=== PATIENT | male | born 1960 | race Caucasian/White ===

== ENCOUNTER 2022-01-21 23:19 | Inpatient (IN) | payer OTHER ==
[2022-01-21] MEDS ORDERED: NA CHLORIDE 0.9% 1,000 ML ONE (23:22)
[2022-01-21] MEDS ORDERED: propofoL 1,000 MG/100 ML VIAL IV ONE (23:22)
[2022-01-21] MEDS ORDERED: RSI MEDICATION KIT IV ONE (23:22)
[2022-01-21] MEDS ORDERED: NALOXONE HCL 2 MG/2 ML VIAL ONE (23:25)
[2022-01-21] MEDS ORDERED: propofoL 200 MG/20 ML VIAL IV ONE (23:31)
[2022-01-22 00:01] LABS: Absolute Lymphocytes (CBC) 1.4 K/uL (0.7-4.9); Hematocrit 47.1 % (39.6-49.0); Lymphocytes % 11.6 % (15.3-44.8); MCV 92.7 fL (80-100); MPV 8.8 fL (7.6-11.3); RBC Red Blood Cell Count 5.08 M/uL (4.33-5.43)
[2022-01-22 00:02] LABS: Urine Blood 1+ (Negative); Urine Glucose 2+ (Negative); Urine Protein 3+ (Negative); Urine Specific Gravity 1.025 (1.005-1.030)
[2022-01-22 00:04] LABS: Protime INR 0.9
[2022-01-22 00:36] LABS: Urine Bilirubin Negative (Negative); Urine Blood 1+ (Negative); Urine Clarity Clear (Clear); Urine Color Yellow (Yellow); Urine Glucose 2+ (Negative); Urine Protein 3+ (Negative); Urine Urobilinogen 0.2 mg/dL (0.2-1.0)
[2022-01-22 00:38] LABS: Arterial Blood Carboxyhemoglob 1.7 % (0-1.5); Blood Gas Oxyhemoglobin 94.2 % (94-97); Blood O2 Saturation 97.5 % (92-98.5)
[2022-01-22 00:39] LABS: Albumin 3.2 g/dL (3.4-5.0); Bilirubin Total 0.3 mg/dL (0.2-1.0); Protein, Total 7.5 g/dL (6.4-8.2)
[2022-01-22 00:42] LABS: Potassium 2.6 mmol/L (3.5-5.1)
--- NOTE | 2022-01-22 00:56 | ER ---
Nurse's Notes [facility] Name: Thom Wright Age: 61 yrs Sex: Male : 1960 Arrival Date: 01/21/2022 Time: 23:20 Bed 3 Private MD: Diagnosis: DKA, Altered mental status, dehydration Presentation: 01/21 23:16 Acuity: SONIA 1 lp1 23:16 Chief complaint: EMS states: Called for patient with diabetic issue, on arrival patient lp1 with AMS, seizure witnessed by EMS, unresponsive and given Narcan 3mg IV; Patient became combative, given Versed 5mg IV; patient it OPA and NPA on arrival to ED, unresponsive. 23:16 Coronavirus screen: unable to obtain. Ebola Screen: Unable to complete the Ebola lp1 screening because: Patient is unresponsive. Initial Sepsis Screen: Does the patient meet any 2 criteria? No. Patient's initial sepsis screen is negative. Does the patient have a suspected source of infection? No. Patient's initial sepsis screen is negative. Risk Assessment: Do you want to hurt yourself or someone else? Unable to obtain. Onset of symptoms was January 21, 2022. 23:16 Method Of Arrival: EMS: [facility] lp1 23:43 Care prior to arrival: IV initiated. 20 GA, in the left antecubital area, Glucose lp1 check: 526. Historical: - Allergies: 01/22 01:12 Unable to obtain; as6 - Home Meds: 01:12 Unable to obtain [Active]; as6 - PMHx: 01:12 Unable to Obtain; as6 - PSHx: 01:12 Unable to Obtain; as6 - Immunization history:: Adult Immunizations unknown. - Social history:: Smoking status: unknown EMS reported pt is IV drug user . Screenin:59 Abuse screen: Denies threats or abuse. Denies injuries from another. Nutritional as6 screening: No deficits noted. Tuberculosis screening: No symptoms or risk factors identified. Fall Risk None identified. Assessment: 01/21 23:20 General: Appears ill, Behavior is unresponsive. as6 23:20 Pain: Unable to use pain scale. Patient is unresponsive. as6 23:20 Neuro: Level of Consciousness is unresponsive. Respiratory: Airway via nasal trumpet. as6 23:31 Reassessment: Patient placed on ventilator; Rate of 14, PEEP 5, TV 500, O2 100%. lp1 Vital Signs: 23:16 BP 204 / 104; Pulse 120; Resp 30 A; Pulse Ox 99% on 15% BVM; Weight 113.4 kg; lp1 23:25 BP 224 / 129; Pulse 116; Resp 19 A; Pulse Ox 99% on 15% BVM; lp1 23:30 BP 261 / 120; Pulse 105; Resp 20 A; Pulse Ox 97% on 15% BVM; lp1 23:41 BP 180 / 82; Pulse 106; Resp 19; Temp 96.3(C); Pulse Ox 99% on 100% FiO2 ETT vent; lp1 01/22 00:00 BP 204 / 112; Pulse 88; Resp 15; Temp 97.3(C); Pulse Ox 100% on 50% FiO2 ETT vent; lp1 00:30 BP 209 / 96; Pulse 82; Resp 13 A; Temp 97.4(C); Pulse Ox 97% on 50% FiO2 ETT vent; as6 01:00 BP 214 / 85; Pulse 80; Resp 15 A; Temp 97.5(C); Pulse Ox 97% on 50% FiO2 ETT vent; as6 01:30 BP 194 / 105; Pulse 72; Resp 14 A; Temp 97.3(C); Pulse Ox 99% on 50% FiO2 ETT vent; as6 02:00 BP 113 / 77; Pulse 70; Resp 14 A; Temp 97.5(C); Pulse Ox 100% on 50% FiO2 ETT vent; as6 02:01 Height 6 ft. (182.88 cm); as6 02:30 BP 171 / 92; Pulse 71; Resp 15 A; Temp 97.5(C); Pulse Ox 98% on 50% FiO2 ETT vent; as6 03:00 BP 146 / 120; Pulse 70; Resp 16 A; Temp 97.2(C); Pulse Ox 100% on 50% FiO2 ETT vent; as6 02:01 Body Mass Index 33.91 (113.40 kg, 182.88 cm) as6 [place] Coma Score: 01/21 23:20 Eye Response: none(1). Verbal Response: none(1). Motor Response: none(1). Total: 3. as6 ED Course: 23:20 Patient arrived in ED. ds4 23:20 Maintain EMS IV. Dressing intact. Good blood return noted. Site clean \\T\\ dry. Gauge \\T\\ lp 1 site: 20g to L AC. 23:24 Inserted saline lock: 20 gauge in right antecubital area, using aseptic technique. lp1 Blood collected. 23:29 Assisted provider with intubation using 7.5 mm ETT via oral route. ET tube secured at lp1 24cm at the lips. Set up intubation tray. Intubated by Luis M English MD Placement verified by CO2 detector w/ + color change, auscultating bilateral breath sounds, CXR. 23:33 Gunderson cath inserted, using sterile technique, 16 Fr., by ED staff, balloon inflated, to lp1 gravity drainage. 23:34 NGT: inserted 14 Fr. other ORAL. lp1 23:36 Arm band placed on left wrist. lp1 23:37 Triage completed. lp1 23:42 Assisted provider with central line placement. Set up central line tray. Triple lumen lp1 line placed in right subclavian. Line placed by Luis M English MD Placement verified by blood return, Dressed with Tegaderm, Blood was collected. Time-out/Briefing performed prior to start of procedure? Yes. Was handwashing/sanitizing done immediately prior to procedure? Yes. Was patient positioned to in a way to prevent air embolism? Yes. Was procedure site sterilized? Yes, with Was the site allowed to dry? Yes. During the procedure, did the Practitioner(s) maintain a sterile field? Yes. Were unused ports clamped during insertion? Yes. Was blood aspirated from each lumen? Yes. After the procedure, did the Practitioner(s) clean the site and apply a sterile dressing? Yes. 23:52 Luis M English MD is Attending Physician. sp3 23:53 Paul Asher, SALLIE is Primary Nurse. as6 01/22 00:16 Chest Single View XRAY In Process Unspecified. EDMS 00:30 CT Head Brain wo Cont In Process Unspecified. EDMS 00:36 COVID-19 SARS RT PCR (Document "Date of Onset" if Symptomatic) Sent. mh5 00:36 COVID swab sent to lab. mh5 00:54 Byron Mace MD is Hospitalizing Provider. sp3 01:59 Seizure precautions initiated. as6 03:02 Patient admitted, IV remains in place. as6 Administered Medications: 01/20 23:36 Drug: Propofol 50 mg {Note: RASS +2.} Route: IVP; Site: left antecubital; 1 01/22 03:31 Follow up: Response: No adverse reaction; RASS: Light sedation (-2) as6 01/20 23:39 Drug: Propofol 50 mg {Note: RASS +2.} Route: IVP; Site: left antecubital; [facility] 01/22 03:31 Follow up: Response: No adverse reaction; RASS: Light sedation (-2) as6 01/20 23:42 Drug: Propofol 50 mg {Note: RASS +2.} Route: IVP; Site: left antecubital; [facility] 01/22 03:31 Follow up: Response: No adverse reaction; RASS: Light sedation (-2) as6 01/21 23:19 Drug: NARcan (naloxone) 4 mg Route: IVP; Site: left antecubital; [facility] 01/22 03:29 Follow up: Response: No adverse reaction as6 01/21 23:23 Drug: Etomidate 20 mg Route: IVP; Site: left antecubital; [facility] 01/22 03:30 Follow up: Response: No adverse reaction as6 01/21 23:24 Drug: Succinylcholine 120 mg Route: IVP; Site: left antecubital; [facility] 01/22 03:29 Follow up: Response: No adverse reaction as6 01/21 23:30 Drug: Propofol 50 mg {Note: RASS +1.} Route: IVP; Site: left antecubital; [facility] 01/22 03:30 Follow up: Response: No adverse reaction; RASS: Restless (+1) as6 01/21 23:31 Drug: Propofol 5 mcg/kg/min {Note: RASS +1.} Route: IV; Rate: calculated rate; Site: lp left antecubital; 23:31 Follow up: Rate change 10 mcg/min; Verbal order per Provider at bedside; RASS +1 lp1 23:37 Follow up: Rate change 20 mcg/min; RASS +2 1 23:41 Follow up: Rate change 25 mcg/min; RASS +2 [facility] 01/22 00:41 Follow up: Response: RASS: Restless (+1); Rate change 35 mcg/min as6 03:30 Follow up: Response: RASS: Light sedation (-2); IV Status: Infusion continued upon as6 admission 00:52 Not Given (Duplicate Order): Propofol 50 mg IVP once; Document RASS score. as6 00:52 Not Given (Duplicate Order): Propofol 50 mg IVP once; Document RASS score. as6 00:52 Not Given (Duplicate Order): Propofol 50 mg IVP once; Document RASS score. as6 00:52 Not Given (Duplicate Order): Propofol 5 mcg/kg/min IV at calculated rate See as6 Administration Instructions; Standard concentration 1000 mg / 100 mL; Recommended max rate 50 mcg/kg/min; Titrate 2 mcg/kg/min every 5 minutes to achieve goal (see titration policy); Goal parameter RASS score 0 to -2 01:11 Drug: Potassium Chloride 40 mEq Route: IV; Rate: 2 units/min; Site: right subclavian; as6 03:33 Follow up: Response: No adverse reaction; IV Status: Completed infusion; IV Intake: as6 200ml 01:30 Drug: Insulin Drip - (Insulin Regular Human 100 units, NS 0.9% 100 ml) {Co-Signature: aa9 as6 (Paul Asher RN).} Route: IV; Rate: calculated rate; Site: right subclavian; 03:32 Follow up: IV Status: Infusion continued upon admission as6 01:43 Drug: Dilaudid (HYDROmorphone) 1 mg Route: IVP; Site: left antecubital; aa9 03:32 Follow up: Response: No adverse reaction as6 01:55 Drug: NS 0.9% with KCl 40 mEq/L 1000 ml Route: IV; Rate: 125 ml/hr; Site: right as6 subclavian; 03:32 Follow up: IV Status: Infusion continued upon admission as6 01:55 Drug: Rocephin (cefTRIAXone) 1 grams Route: IV; Rate: calculated rate; Site: right as6 subclavian; 03:32 Follow up: Response: No adverse reaction; IV Status: Infusion continued; IV Intake: [id number] 02:08 Drug: NS 0.9% (30 ml/kg) 30 ml/kg Route: IV; Rate: bolus; Site: right subclavian; as6 03:32 Follow up: IV Status: Infusion continued upon admission as6 Medication: 01:59 VIS not applicable for this client. as6 Point of Care Testing: Blood Glucose: 01/21 23:28 Blood Glucose: High (>450 mg/dL); aa9 Ranges: Intake: 01/22 03:32 IV: 10ml; Total: 10ml. as6 03:33 IV: 200ml; Total: 210ml. as6 Output: 01/21 23:56 Urine: 300ml (Gunderson); Total: 300ml. as6 Outcome: 01/22 00:55 Decision to Hospitalize by Provider. sp3 03:01 Admitted to ICU accompanied by nurse, via stretcher, room 5, with oxygen, on monitor, as6 with chart. 03:01 critical 03:01 Instructed on the need for admit. 03:33 Patient left the ED. as6 Signatures: Dispatcher [employer] EDMS Jodee Porter RN RN lp1 Nick Leong Amie Colunga Luis M Fraser MD MD sp3 Paul Asher RN RN as6 Leidy Birmingham RN RN aa9 Paul Asher RN as6 Corrections: (The following items were deleted from the chart) 01/21 23:44 23:16 Chief complaint: EMS states: Called for patient with diabetic issue, on arrival lp1 patient with AMS, seizure witnessed by EMS, unresponsive and given Narcan 3mg IV; 2nd seizure, given Versed 5mg IV; patient it OPA and NPA on arrival to ED, unresponsive lp1 01/22 00:14 00:00 BP 204 / 112; Pulse 88bpm; Resp 15bpm; Pulse Ox 100% FiO2 100% vent; Temp 97.3F lp1 Catheter; lp1 01:59 00:30 BP 209 / 96; Pulse 82bpm; Resp 13bpm; Assisted; Pulse Ox 97% FiO2 50% vent; as6 as6 01:59 01:00 BP 214 / 85; Pulse 80bpm; Resp 15bpm; Assisted; Pulse Ox 97% FiO2 50% vent; as6 as6 02:02 01/21 23:20 General: Appears ill, Behavior is unresponsive. as6 as6
--- NOTE | 2022-01-22 00:56 | EDPHYS ---
Physician Documentation [facility] Name: Thom Wright Age: 61 yrs Sex: Male : 1960 Arrival Date: 01/21/2022 Time: 23:20 Bed 3 Private MD: ED Physician Luis M English HPI: 01/22 00:10 This 61 yrs old Male presents to ER via EMS with complaints of Seizure \\T\\ altered mental sp3 status. 00:10 61-year-old male with unknown medical history but medications indicating hypertension sp3 and diabetes presents via EMS for reported seizure activity and altered mental status. In route and EMS patient had 2 tonic-clonic body wide seizures and received Narcan and Versed in route. Blood sugar was read as high in route as well. Upon arrival to the ER, patient was being ventilated with a bag valve mask and patient had no gag reflex was completely altered. She was placed in room 3 and emergency resuscitation, intubation, and central line were initiated.. Historical: - Allergies: 01:12 Unable to obtain; as6 - Home Meds: 01:12 Unable to obtain [Active]; as6 - PMHx: 01:12 Unable to Obtain; as6 - PSHx: 01:12 Unable to Obtain; as6 - Immunization history:: Adult Immunizations unknown. - Social history:: Smoking status: unknown EMS reported pt is IV drug user . ROS: 00:14 Unable to obtain ROS due to altered mental status, obtunded state, patient distress. sp3 Exam: 00:15 Head/Face: Normocephalic, atraumatic. sp3 00:15 Neck: Trachea midline, no thyromegaly or masses palpated, and no cervical lymphadenopathy. Supple, full range of motion without nuchal rigidity, or vertebral point tenderness. No Meningismus. Respiratory: Lungs have equal breath sounds bilaterally, clear to auscultation and percussion. No rales, rhonchi or wheezes noted. No increased work of breathing, no retractions or nasal flaring. 00:15 Constitutional: The patient appears comatose, obese. 00:15 Eyes: Pupils mildly reactive to light. 00:15 Cardiovascular: And in a regular rhythm with tachycardia in the 110 range. Blood pressure is 210/140 range.. 00:15 ECG was reviewed by the Attending Physician. States 88 bpm with Q waves in lead III, nonspecific diffuse ST/T changes, normal axis. Possible lead reversal noted. Motion artifact also noted. EKG was obtained after patient was resuscitated. 00:15 Abdomen/GI: Obese abdomen without distention.. 00:15 Neuro: GCS 3 with occasional nonpurposeful movements.. Vital Signs: 01/21 23:16 BP 204 / 104; Pulse 120; Resp 30 A; Pulse Ox 99% on 15% BVM; Weight 113.4 kg; lp1 23:25 BP 224 / 129; Pulse 116; Resp 19 A; Pulse Ox 99% on 15% BVM; lp1 23:30 BP 261 / 120; Pulse 105; Resp 20 A; Pulse Ox 97% on 15% BVM; lp1 23:41 BP 180 / 82; Pulse 106; Resp 19; Temp 96.3(C); Pulse Ox 99% on 100% FiO2 ETT vent; lp1 01/22 00:00 BP 204 / 112; Pulse 88; Resp 15; Temp 97.3(C); Pulse Ox 100% on 50% FiO2 ETT vent; lp1 00:30 BP 209 / 96; Pulse 82; Resp 13 A; Temp 97.4(C); Pulse Ox 97% on 50% FiO2 ETT vent; as6 01:00 BP 214 / 85; Pulse 80; Resp 15 A; Temp 97.5(C); Pulse Ox 97% on 50% FiO2 ETT vent; as6 01:30 BP 194 / 105; Pulse 72; Resp 14 A; Temp 97.3(C); Pulse Ox 99% on 50% FiO2 ETT vent; as6 02:00 BP 113 / 77; Pulse 70; Resp 14 A; Temp 97.5(C); Pulse Ox 100% on 50% FiO2 ETT vent; as6 02:01 Height 6 ft. (182.88 cm); as6 02:30 BP 171 / 92; Pulse 71; Resp 15 A; Temp 97.5(C); Pulse Ox 98% on 50% FiO2 ETT vent; as6 03:00 BP 146 / 120; Pulse 70; Resp 16 A; Temp 97.2(C); Pulse Ox 100% on 50% FiO2 ETT vent; as6 02:01 Body Mass Index 33.91 (113.40 kg, 182.88 cm) as6 [place] Coma Score: 01/21 23:20 Eye Response: none(1). Verbal Response: none(1). Motor Response: none(1). Total: 3. as6 MDM: 23:33 Patient medically screened. [facility] 01/22 00:18 Data reviewed: vital signs, nurses notes, EMS record. ED course: She was immediately sp3 placed in the room after arrival and [id number] use was continued by respiratory therapy and nursing staff. Patient was immediately placed on the monitor and second IV established. Initial vital signs demonstrated tachycardia and hypertension. Eye reflex was absent and patient had a GCS of 3. Pinpoint pupils were noted. Narcan 4 mg IV push was given in addition to Accu-Chek obtained which demonstrated "high". EMS, possible drug use was noted on scene. Patient at that point was intubated using succinylcholine 120 mg and etomidate 20 mg. Patient was successfully intubated and orogastric tube was also placed. Right IJ central line was also placed in a sterile fashion using ultrasound guidance propofol was initiated with multiple boluses given his safety as well as sedation for CT scan. Labs are pending given high blood glucose and ABG of 7.25/45/131, patient has possibility of diabetic ketoacidosis given metabolic acidosis on ABG. Patient will be admitted to the ICU under hospitalist service. X-ray demonstrates proper positioning of ET tube, OG tube, right IJ triple lumen catheter. Further medications as indicated based on data. . 00:52 ED course: Laboratory values indicate diabetic ketoacidosis on with a lactate of 9.2. sp3 Potassium is low and we will replenish with 40 mill equivalents IV through central line over 20 minutes and then start insulin drip along with IV fluids containing further potassium. Once per hour chemistries will continue in the ICU under the inpatient team care.. 01/21 23: Order name: Blood Culture Adult (2) [facility] 01/21 23: Order name: CBC with Diff; Complete Time: 00:38 [facility] 01/21 23: Order name: CMP; Complete Time: 00:45 [facility] 01/21 23: Order name: Lactate; Complete Time: 00:45 [facility] 01/21 23: Order name: Protime (+inr); Complete Time: 00:05 [facility] 07/22 23:33 Order name: Ptt, Activated; Complete Time: 00:05 [facility] 01/22 00:01 Order name: COVID-19 SARS RT PCR (Document "Date of Onset" if Symptomatic); Complete bb Time: 01:57 01/22 00:02 Order name: Urine Dipstick-Ancillary; Complete Time: 00:05 [facility] 01/22 00:36 Order name: Urinalysis; Complete Time: 01:31 [facility] 01/22 00:37 Order name: ABG Arterial Blood Gas [facility] 01/22 00:38 Order name: UDS; Complete Time: 02:28 3 01/21 23:51 Order name: Chest Single View XRAY ds4 01/21 23:57 Order name: CT Head Brain wo Cont 3 01/22 01:11 Order name: BNP; Complete Time: 01:57 [facility] 01/22 01:11 Order name: Troponin High Sensitivity; Complete Time: 01:57 [facility] 01/22 01:11 Order name: Magnesium; Complete Time: 01:57 [facility] 01/22 01:11 Order name: Phosphorus; Complete Time: 01:57 [facility] 01/22 01:33 Order name: Urine Culture [facility] 01/22 02:41 Order name: Glucose, Ancillary Testing [facility] 01/21 23:33 Order name: Accucheck; Complete Time: 23:47 [facility] 01/21 23:33 Order name: Cardiac monitoring; Complete Time: 23:53 [facility] 01/21 23:33 Order name: EKG - Nurse/Tech; Complete Time: 23:56 [facility] 01/21 23:33 Order name: IV Saline Lock - Large Bore; Complete Time: 23:53 [facility] 01/21 23:33 Order name: Labs collected and sent; Complete Time: 23:53 [facility] 01/21 23:33 Order name: O2 Per Protocol; Complete Time: 23:53 [facility] 01/21 23:33 Order name: O2 Sat Monitoring; Complete Time: 23:54 jm Administered Medications: 01/20 23:36 Drug: Propofol 50 mg {Note: RASS +2.} Route: IVP; Site: left antecubital; lp1 01/22 03:31 Follow up: Response: No adverse reaction; RASS: Light sedation (-2) as6 01/20 23:39 Drug: Propofol 50 mg {Note: RASS +2.} Route: IVP; Site: left antecubital; [facility] 01/22 03:31 Follow up: Response: No adverse reaction; RASS: Light sedation (-2) as6 01/20 23:42 Drug: Propofol 50 mg {Note: RASS +2.} Route: IVP; Site: left antecubital; [facility] 01/22 03:31 Follow up: Response: No adverse reaction; RASS: Light sedation (-2) as01/21 23:19 Drug: NARcan (naloxone) 4 mg Route: IVP; Site: left antecubital; 01/22 03:29 Follow up: Response: No adverse reaction as01/21 23:23 Drug: Etomidate 20 mg Route: IVP; Site: left antecubital; 01/22 03:30 Follow up: Response: No adverse reaction as01/21 23:24 Drug: Succinylcholine 120 mg Route: IVP; Site: left antecubital; 01/22 03:29 Follow up: Response: No adverse reaction as01/21 23:30 Drug: Propofol 50 mg {Note: RASS +1.} Route: IVP; Site: left antecubital; 01/22 03:30 Follow up: Response: No adverse reaction; RASS: Restless (+1) as01/21 23:31 Drug: Propofol 5 mcg/kg/min {Note: RASS +1.} Route: IV; Rate: calculated rate; Site: [facility] left antecubital; 23:31 Follow up: Rate change 10 mcg/min; Verbal order per Provider at bedside; RASS +1 [facility] 23:37 Follow up: Rate change 20 mcg/min; RASS +2 [facility] 23:41 Follow up: Rate change 25 mcg/min; RASS +2 [facility] 01/22 00:41 Follow up: Response: RASS: Restless (+1); Rate change 35 mcg/min as6 03:30 Follow up: Response: RASS: Light sedation (-2); IV Status: Infusion continued upon as6 admission 00:52 Not Given (Duplicate Order): Propofol 50 mg IVP once; Document RASS score. as6 00:52 Not Given (Duplicate Order): Propofol 50 mg IVP once; Document RASS score. as6 00:52 Not Given (Duplicate Order): Propofol 50 mg IVP once; Document RASS score. as6 00:52 Not Given (Duplicate Order): Propofol 5 mcg/kg/min IV at calculated rate See as6 Administration Instructions; Standard concentration 1000 mg / 100 mL; Recommended max rate 50 mcg/kg/min; Titrate 2 mcg/kg/min every 5 minutes to achieve goal (see titration policy); Goal parameter RASS score 0 to -2 01:11 Drug: Potassium Chloride 40 mEq Route: IV; Rate: 2 units/min; Site: right subclavian; as6 03:33 Follow up: Response: No adverse reaction; IV Status: Completed infusion; IV Intake: as6 200ml 01:30 Drug: Insulin Drip - (Insulin Regular Human 100 units, NS 0.9% 100 ml) {Co-Signature: aa9 as6 (Paul Asher RN).} Route: IV; Rate: calculated rate; Site: right subclavian; 03:32 Follow up: IV Status: Infusion continued upon admission as6 01:43 Drug: Dilaudid (HYDROmorphone) 1 mg Route: IVP; Site: left antecubital; aa9 03:32 Follow up: Response: No adverse reaction as6 01:55 Drug: NS 0.9% with KCl 40 mEq/L 1000 ml Route: IV; Rate: 125 ml/hr; Site: right as6 subclavian; 03:32 Follow up: IV Status: Infusion continued upon admission as6 01:55 Drug: Rocephin (cefTRIAXone) 1 grams Route: IV; Rate: calculated rate; Site: right as6 subclavian; 03:32 Follow up: Response: No adverse reaction; IV Status: Infusion continued; IV Intake: [id number] 02:08 Drug: NS 0.9% (30 ml/kg) 30 ml/kg Route: IV; Rate: bolus; Site: right subclavian; as6 03:32 Follow up: IV Status: Infusion continued upon admission as6 Point of Care Testing: Blood Glucose: 01/21 23:28 Blood Glucose: High (>450 mg/dL); aa9 Ranges: Critical Glucose Levels:Adult <50 mg/dl or >400 mg/dl <40 mg/dl or >180 mg/dl Disposition Summary: 01/22/22 00:55 Hospitalization Ordered Hospitalization Status: Inpatient Admission sp3 Provider: Byron Mace sp3 Location: Intensive Care Unit sp3 Condition: Critical sp3 Problem: an acute exacerbation sp3 Symptoms: have worsened sp3 Bed/Room Type: Standard 3 Room Assignment: 5-(01/22/22 02:28) Diagnosis - DKA, Altered mental status, dehydration sp3 Forms: - Medication Reconciliation Form sp3 - SBAR form sp3 Signatures: Dispatcher [employer] EDPA Jim Sahu PA PA jmm Pena, Laura, SALLIE RN lp1 Matthew Corona, MUSA-Xin INFORMATION SECURITY DIRECTOR-Jame1 Susan Zuniga RN RN cg Luis M English MD MD sp3 Paul Asher RN RN as6 Leidy Birmingham RN RN aa9 Paul Asher RN as6 Corrections: (The following items were deleted from the chart) 01/22 00:11 01/21 23:58 URINALYSIS+U.LAB.BRZ ordered. [facility] 01/22 00:11 01/21 23:58 UA MICROSCOPIC+U.LAB.BRZ ordered. [facility] 01/22 00:40 00:12 Urinalysis W/Microscopic ordered. [facility] EDPA 00:40 00:18 ED course: She was immediately placed in the room after arrival and sp3 [id number] use was continued by respiratory therapy and nursing staff. Patient was immediately placed on the monitor and second IV established. Initial vital signs demonstrated tachycardia and hypertension. Eye reflex was absent and patient had a GCS of 3. Pinpoint pupils were noted. Narcan 4 mg IV push was given in addition to Accu-Chek obtained which demonstrated "high". EMS, possible drug use was noted on scene. Patient at that point was intubated using succinylcholine 120 mg and etomidate 20 mg. Patient was successfully intubated and orogastric tube was also placed. Right IJ central line was also placed in a sterile fashion using ultrasound guidance propofol was initiated with multiple boluses given his safety as well as sedation for CT scan. Labs are pending given high blood glucose and ABG of 7.25/45/131, patient likely has diabetic ketoacidosis given metabolic acidosis on ABG. Insulin drip will be started after patient is back from CT as well as prophylactic antibiotics and continued IV fluid resuscitation. Patient will be admitted to the ICU under hospitalist service. X-ray demonstrates proper positioning of ET tube, OG tube, right IJ triple lumen catheter.. sp3 02:28 00:55 sp3
[2022-01-22] MEDS ORDERED: INSULIN -REGULAR HUMAN 50 UNIT/0.5 ML ML ONE ×2 (01:07→03:33)
[2022-01-22] MEDS ORDERED: KCL 20 MEQ/100 mL IVPB 100 ML IV ONE ×2 (01:08→01:31)
[2022-01-22] MEDS ORDERED: NA CHLORIDE 0.9% 100 ML ONE (01:08)
[2022-01-22 01:30] LABS: Urine Bacteria 20-50 /HPF (<20)
[2022-01-22 01:41] LABS: Magnesium 1.8 mg/dL (1.8-2.4); Phosphorus 4.5 mg/dL (2.5-4.9); Troponin High Sensitivity 31.9 pg/mL (<58.9)
[2022-01-22] MEDS ORDERED: NS KCL 20MEQ 1,000 ML IV ONE (01:41)
[2022-01-22] MEDS ORDERED: HYDROMORPHONE HCL 2 MG/ML inj ONE (01:46)
[2022-01-22] MEDS ORDERED: propofoL 1,000 MG/100 ML VIAL IV ONE (01:58)
[2022-01-22] MEDS ORDERED: CEFTRIAXONE 1000 MG/VIAL ONE (01:59)
[2022-01-22 02:07] LABS: Barbiturates NEGATIVE (NEGATIVE); Benzodiazepines POSITIVE (NEGATIVE); Cocaine NEGATIVE (NEGATIVE); METHAMPHETAM NEGATIVE (NEGATIVE); Methadone NEGATIVE (NEGATIVE); Opiates NEGATIVE (NEGATIVE); Phencyclidine NEGATIVE (NEGATIVE); THC Cannibis NEGATIVE (NEGATIVE)
[2022-01-22] MEDS ORDERED: NA CHLORIDE 0.9% 1,000 ML ONE (02:14)
--- NOTE | 2022-01-22 03:08 | P.HP ---
Certification for Inpatient Patient admitted to: Inpatient With expected LOS: >2 Midnights Patient will require the following post-hospital care: None Practitioner: I am a practitioner with admitting privileges, knowledge of patient current condition, hospital course, and medical plan of care. Services: Services provided to patient in accordance with Admission requirements found in Title 42 Section 412.3 of the Code of Federal Regulations Patient History Date of Service: 01/22/22 Reason for admission: DKA History of Present Illness: 61-year-old male with history of diabetes mellitus type [id number], hypertension was at home with his family, consumed some chocolate and soda's and went to lay down, his family noticed that he was sleeping in a weird position and try to wake him up, they are unable to wake him up they checked his blood sugar and noted that is very high. They called EMS upon EMS arrival patient did wake up he became combative followed by having a seizure. He was transported to the emergency department for further evaluation upon arrival to the emergency department patient was unresponsive with a GCS of 3 and elevated blood sugar he was intubated and a central line was placed his ABG initially showed pH of 7.25 PCO2 45.4 PO2 of 131 HCO3 of 19.3. He had a CT scan of his head which was negative for any acute findings he did not have any more seizure-like activity in the emergency department his labs did demonstrate beta ketoacidosis as well as hypokalemia, acute kidney injury, lactic acidosis, bacteriuria. At this time patient is sedated, on ventilator, on insulin drip after receiving multiple doses of supplemental potassium. ED provider wishes to admit to the ICU for further evaluation and management of DKA, hypokalemia, UTI. - Past Medical/Surgical History -: Diabetes mellitus type 2not insulin-dependent -: Hypertension -: Unknown additional history Past Surgical History: Unable to obtain Psychosocial/ Personal History: Patient lives at home with his , family - Family History Father History Unknown: Yes - Social History Smoking Status: Unknown if ever smoked Alcohol use: No CD- Drugs: No Caffeine use: Yes Place of Residence: Home Review of Systems is unable to be obtained (Patient on ventilator, sedated) Physical Examination - Physical Exam General: Unresponsive, Obese, Other (Moves extremities) HEENT: Atraumatic, Normocephalic Neck: Supple Respiratory: Clear to auscultation bilaterally, Normal air movement, Other (On ventilator) Cardiovascular: No edema, Normal S1 S2 Capillary refill: <2 Seconds Gastrointestinal: Normal bowel sounds, Soft and benign Musculoskeletal: No contractures, No erythema, No tenderness Integumentary: No significant lesion, No tenderness/swelling, No erythema Neurological: Other (Unresponsive, sedated on ventilator, does move all extremities) - Studies Laboratory Data (last 24 hrs) 01/21/22 23:27: Phosphorus 4.5, Magnesium 1.8 01/21/22 23:27: PT 9.9, INR 0.90, APTT 31.9 01/21/22 23:27: Sodium 132 L, Potassium 2.6 L*, BUN 13, Creatinine 1.65 H, Glucose 544 H*, Total Bilirubin 0.3, AST 13 L, ALT 25, Alkaline Phosphatase 179 H 01/21/22 23:27: WBC 12.3 H, Hgb 15.8, Hct 47.1, Plt Count 327 Assessment and Plan - Plan Assessment: Diabetes mellitus type [id number]-[id number] with ketoacidosis and coma Hypokalemia Lactic acidosis Rule out septic shock Seizure Plan: Diabetes mellitus type 3tth-pxbrthp-lgmbbrury with ketoacidosis and coma: Potassium was replaced prior to start of insulin drip in the emergency department, he will be admitted the ICU for further management with every 4 BMP, every Accu-Cheks until anion gap is closed and sugars less than 250. Family reports patient takes only an oral medication for his diabetes was eating lots of candy and sodas today. Will obtain A1c level. Urine does show 20-50 bacteria possible UTI could contribute to DKA. Hypokalemia: Was replaced in ER prior to starting insulin drip, protocol in place patient on potassium containing fluids, every 4 BMPs. Lactic acidosis: Significantly elevated lactate likely related to seizure activity although patient does have SIRS criteria present as well source of infection with possible UTI. He was given 30 cc/kg fluid bolus with adjusted body weight given his obesity for total of 2.3 L in addition to the other maintenance fluids he has been receiving. We will repeat lactate per protocol and cover with antibioticsRocephin. Rule out septic shock: Continue as above he met SIRS criteria for tachypnea, tachycardia, leukocytosis identified possible source of infection with UTI. Patient given Rocephin as well as sepsis fluid bolus per ideal body weight repeat lactate pending. Patient not hypotensive at this time Central is in place. Seizure: Suspect this is related to metabolic/electrolyte disturbances, no further seizure-like activity so far. Consult neurology as necessary for any further seizures. DVT PPX: Lovenox Code status: Full Discharge Plan: Home Plan to discharge in: Greater than 2 days - Advance Directives Does patient have a Living Will: No Does patient have a Durable POA for Healthcare: No - Code Status/Comfort Care Code Status Assessed: Yes (Full code) Critical Care: No Time Spent Managing Pts Care (In Minutes): 70
[2022-01-22] MEDS ORDERED: NA CHLORIDE 0.9% 100 ML IV ONE (03:33)
[2022-01-22] MEDS ORDERED: NACHLORIDE 0.45% 1,000 ML with POTASSIUM CL 20 MEQ IV SCH ×2 (03:58)
[2022-01-22] MEDS ORDERED: INSULIN -REGULAR HUMAN 100 UNIT in NA CHLORIDE 0.9% 100 ML IV SCH (03:58)
[2022-01-22] MEDS ORDERED: ONDANSETRON 4 MG/2 ML VIAL IV PRN (03:58)
[2022-01-22] MEDS ORDERED: POTASSIUM CHLORIDE-0.45% NACL 20 MEQ/1,000 ML BAG IV SCH (04:30)
[2022-01-22 05:11] LABS: Magnesium 1.7 mg/dL (1.8-2.4); Phosphorus 1.6 mg/dL (2.5-4.9)
[2022-01-22] MEDS: propofoL 1,000 MG/100 ML VIAL IV PRN ×3 (05:27→21:03)
[2022-01-22 05:36] LABS: Potassium 2.6 mmol/L (3.5-5.1)
[2022-01-22] MEDS ORDERED: MAGNESIUM SULFATE 1 gm IVPB 1 GM/100 ML BAG IV ONE (06:01)
[2022-01-22] MEDS: D5.45NS W/KCL 20MEQ 1,000 ML IV SCH ×3 (06:08→20:00)
[2022-01-22] MEDS: KCL 20 MEQ/100 mL IVPB 20 MEQ/100 ML BAG IV SCH ×2 (06:09→07:56)
[2022-01-22 07:27] LABS: Blood O2 Saturation 96.8 % (92-98.5)
[2022-01-22] MEDS: ENOXAPARIN 40 MG/0.4 ML SQ SCH (07:55)
[2022-01-22] MEDS: FAMOTIDINE 20 MG/2 ML VIAL IV SCH ×2 (07:56→20:00)
[2022-01-22] MEDS ORDERED: POTASSIUM PHOS IN 0.9 % NACL 15 MMOL/250 ML BAG IV ONE ×2 (08:00→10:45)
[2022-01-22] MEDS ORDERED: ETOMIDATE 20 MG/10 ML VIAL IV ONE (08:47)
[2022-01-22] MEDS ORDERED: SUCCINYLCHOLINE 20 MG/ML (10 ML) IV ONE (08:47)
[2022-01-22 10:01] LABS: Potassium 3.3 mmol/L (3.5-5.1)
--- NOTE | 2022-01-22 10:45 | P.CNS ---
Date of Consult: 01/22/22 Reason for Consult: Respiratory failure patient is on a ventilator DKA Chief Complaint: Respiratory failure patient on a ventilator History of Present Illness: Patient is patient is 61 years of age metabolic syndrome diabetes admitted with diabetic ketoacidosis respiratory failure was intubated currently he is on a propofol drip seizure-like activity was noted is currently stable Allergies No Known Allergies Allergy (Unverified 01/22/22 05:27) Home Medications: Amlodipine [Norvasc] 5 mg PO DAILY 01/22/22 Atorvastatin Calcium 40 mg PO DAILY 01/22/22 Dapagliflozin/Metformin HCl [Xigduo Xr 10 mg-1,000 mg Tab] 1 each PO DAILY 01/22/22 Gabapentin 200 mg PO BID 01/22/22 Glimepiride [Amaryl] 4 mg PO DAILY 01/22/22 Levothyroxine Sodium [Levothyroxine] 50 mcg PO DAILY 01/22/22 Losartan Potassium 100 mg PO DAILY 01/22/22 Naproxen [Naprosyn] 500 mg PO BID 01/22/22 Tramadol HCl [Ultram] 50 mg PO BID 01/22/22 cilostazoL [Cilostazol] 100 mg PO BID 01/22/22 - Past Medical/Surgical History Diabetic: Yes -: Diabetes mellitus type 2not insulin-dependent -: Hypertension -: Unknown additional history -: carotid surgery Psychosocial/ Personal History: Patient lives at home with his , family - Family History Father History Unknown: Yes - Social History Smoking Status: Unknown if ever smoked Alcohol use: No CD- Drugs: No Caffeine use: Yes Place of Residence: Home Review of Systems is unable to be obtained Physical Examination Temp Pulse Resp BP Pulse Ox 96.3 F L 75 14 122/46 L 100 01/22/22 03:45 01/22/22 06:00 01/22/22 06:00 01/22/22 06:00 01/22/22 06:00 General: Unresponsive Respiratory: Clear to auscultation bilaterally Cardiovascular: No edema, Normal S1 S2 Gastrointestinal: Normal bowel sounds, Soft and benign Laboratory Data (last 24 hrs) 01/21/22 23:27: Phosphorus 4.5, Magnesium 1.8 01/21/22 23:27: PT 9.9, INR 0.90, APTT 31.9 01/21/22 23:27: Sodium 132 L, Potassium 2.6 L*, BUN 13, Creatinine 1.65 H, Glucose 544 H*, Total Bilirubin 0.3, AST 13 L, ALT 25, Alkaline Phosphatase 179 H 01/21/22 23:27: WBC 12.3 H, Hgb 15.8, Hct 47.1, Plt Count 327 - Problems (1) Respiratory failure Current Visit: Yes Status: Acute Plan: Patient is 61 years patient is 61 years of age admitted with hyponatremia hypokalemia non-anion gap metabolic acidosis is currently on a ventilator seizure-like activity was noted chest x-ray is clear vital signs are also vital signs are all stable chemistries reviewed chemistries reviewed patient's lactic acid was significantly elevated cultures are pending cultures are pending plan to wean off extubate Qualifiers: Chronicity: acute
[2022-01-22 12:06] LABS: Potassium 3.2 mmol/L (3.5-5.1)
[2022-01-22] MEDS: LORazepam 2 MG/ML VIAL IV PRN ×2 (12:58→21:02)
[2022-01-22] MEDS ORDERED: GLUCAGON 1 MG/VIAL IM PRN (14:35)
[2022-01-22] MEDS ORDERED: D10W 250 ML BAG IV PRN (14:46)
[2022-01-22 16:52] LABS: Potassium 3.5 mmol/L (3.5-5.1)
[2022-01-22] MEDS: INSULIN -REGULAR HUMAN 50 UNIT/0.5 ML ML SQ SCH ×2 (16:59→21:02)
[2022-01-22] MEDS ORDERED: KCL 20 MEQ/100 mL IVPB 20 MEQ/100 ML BAG IV SCH (17:00)
[2022-01-22] MEDS: CEFTRIAXONE 1,000 MG in NA CHLORIDE 0.9% 50 ML IVPB SCH (20:00)
[2022-01-23] MEDS: INSULIN -REGULAR HUMAN 50 UNIT/0.5 ML ML SQ SCH ×6 (00:24→21:22)
[2022-01-23] MEDS: LORazepam 2 MG/ML VIAL IV PRN ×5 (02:16→18:09)
[2022-01-23] MEDS: D5.45NS W/KCL 20MEQ 1,000 ML IV SCH ×5 (02:51→23:00)
[2022-01-23 05:04] LABS: Absolute Lymphocytes (CBC) 1.6 K/uL (0.7-4.9); Hematocrit 35.2 % (39.6-49.0); Lymphocytes % 15.6 % (15.3-44.8); MCV 90.5 fL (80-100); MPV 8.5 fL (7.6-11.3); RBC Red Blood Cell Count 3.89 M/uL (4.33-5.43)
[2022-01-23 05:24] LABS: Albumin 2.3 g/dL (3.4-5.0); Bilirubin Total 0.3 mg/dL (0.2-1.0); Magnesium 2.1 mg/dL (1.8-2.4); Phosphorus 2.9 mg/dL (2.5-4.9); Potassium 3.6 mmol/L (3.5-5.1); Protein, Total 5.6 g/dL (6.4-8.2)
[2022-01-23 06:08] LABS: Blood Gas Oxyhemoglobin 94.8 % (94-97); Blood O2 Saturation 95.9 % (92-98.5)
[2022-01-23] MEDS: FENTANYL CITR 100 MCG/2 ML IV PRN (06:36)
[2022-01-23] MEDS ORDERED: KCL 20 MEQ/100 mL IVPB 20 MEQ/100 ML BAG IV SCH (07:00)
[2022-01-23] MEDS: FAMOTIDINE 20 MG/2 ML VIAL IV SCH ×2 (07:54→21:11)
[2022-01-23] MEDS: ENOXAPARIN 40 MG/0.4 ML SQ SCH (07:54)
[2022-01-23] MEDS ORDERED: IPRATROPIUM BROM 0.5MG/2.5ML ONE (08:50)
[2022-01-23] MEDS ORDERED: ALBUTEROL 2.5 MG/3 ML NEB SOL ONE (08:50)
[2022-01-23] MEDS: DEXMEDETOMIDINE HCL 200 MCG in NA CHLORIDE 0.9% 98 ML IV SCH ×3 (08:56→20:30)
--- NOTE | 2022-01-23 13:38 | P.PN ---
Date of Service: 01/23/22 Subjective: off insulin drip remains on vent; pt fighting vent when weaned slightly no acute events overnight ROS: 10 point ROS as noted above, otherwise negative Physical exam GEN: intubated/sedated HEENT: normal conjunctiva, sclera anicteric CV: Regular rate and rhythm, no edema Pulm: on mechanical ventilation, clear bilaterally ABD: Soft, non-distended Integumentary: No rashes Problem List Diabetes mellitus type [id number] with ketoacidosis and coma Hypokalemia Lactic acidosis Seizure off insulin drip, gap closed; sliding scale q4h cr slightly increased, low UOP increase IVF adjust insulin as needed patient reportedly ate lots of sugary snacks and drank cola bacteruria noted, no pyruia, possible UTI; continue rocephin DKA resolved hypokalemia improving lactic acidosis secondary to seizure, DKA, hypovolemia leukocytosis resolved continue mech vent suspect seizure activity due to DKA VTE: Lovenox Code: Full Dispo: Likely home, anticipate 3-4 days Time Spent Managing Pts Care (In Minutes): 35
[2022-01-23] MEDS: CEFTRIAXONE 1,000 MG in NA CHLORIDE 0.9% 50 ML IVPB SCH (21:11)
[2022-01-24] MEDS: INSULIN -REGULAR HUMAN 50 UNIT/0.5 ML ML SQ SCH ×6 (01:00→21:00)
[2022-01-24] MEDS: DEXMEDETOMIDINE HCL 200 MCG in NA CHLORIDE 0.9% 98 ML IV SCH ×4 (01:15→15:17)
[2022-01-24] MEDS: D5.45NS W/KCL 20MEQ 1,000 ML IV SCH (01:15)
[2022-01-24] MEDS: LORazepam 2 MG/ML VIAL IV PRN ×3 (03:00→22:45)
[2022-01-24 05:03] LABS: Absolute Lymphocytes (CBC) 1.5 K/uL (0.7-4.9); Hematocrit 36.9 % (39.6-49.0); Lymphocytes % 14.4 % (15.3-44.8); MCV 92.1 fL (80-100); RBC Red Blood Cell Count 4.01 M/uL (4.33-5.43)
[2022-01-24 05:32] LABS: Albumin 2.1 g/dL (3.4-5.0); Bilirubin Total 0.4 mg/dL (0.2-1.0); Magnesium 1.9 mg/dL (1.8-2.4); Phosphorus 2.6 mg/dL (2.5-4.9); Potassium 4.2 mmol/L (3.5-5.1); Protein, Total 5.4 g/dL (6.4-8.2)
--- NOTE | 2022-01-24 06:08 | P.PN ---
Date of Service: 01/24/22 Subjective: remains on vent; pt fighting vent when weaned slightly - coughing family at bedside today, upset he has not been extubated and getting mixed information don't understand why we can't just turn off medication and pull the tube since he never had problem breathing before initially requested transfer to different facility, but ok now after more explanation of clinical course ROS: 10 point ROS unable to be obtained Physical exam GEN: intubated/sedated CV: Regular rate and rhythm, no edema Pulm: on mechanical ventilation, clear bilaterally ABD: Soft, non-distended Integumentary: No rashes Neuro: responsive to loud noise, not purposeful, withdraws to pain Problem List Diabetes mellitus type 4pzn-bmlzsrq-tfubwvivs with ketoacidosis and coma Hypokalemia Lactic acidosis Seizure h/o R basal ganglia infarct (new info for patient, according to sister) off insulin drip, gap closed; sliding scale q4h cr slightly increased, low UOP IVF adjusted nephrology consulted adjust insulin as needed patient reportedly ate lots of sugary snacks and drank cola leading to DKA seizure in ambulance after narcan - possible side effect vs DKA vs withdrawl from possible drug use - urine tox positive for benzo only - given by EMS bacteruria noted, no pyruia, possible UTI; empiric rocephin DKA resolved hypokalemia improving lactic acidosis secondary to seizure, DKA, hypovolemia; improved leukocytosis resolved continue mech vent suspect seizure activity due to DKA sepsis ruled out patient is a difficult airway - according to ER physician who intubated him. VTE: Lovenox Code: Full Dispo: Likely home, anticipate 3-4 days Time Spent Managing Pts Care (In Minutes): 35
[2022-01-24] MEDS ORDERED: NA CHLORIDE 0.9% 1,000 ML IV SCH (07:00)
[2022-01-24] MEDS: NA CHLORIDE 0.9% 1,000 ML IV SCH ×2 (08:29→18:06)
[2022-01-24] MEDS ORDERED: FAMOTIDINE 20 MG/2 ML VIAL IV SCH (09:00)
[2022-01-24] MEDS: ENOXAPARIN 40 MG/0.4 ML SQ SCH (09:23)
--- NOTE | 2022-01-24 09:31 | EKG ---
Test Date: 2022-01-21 Test Time: 23:57:38 Processing Supervisor: MEASUREMENT RESULTS: Intervals: Rate: 88 IN: 132 QRSD: 80 QT: 414 QTc: 500 [place]: P: 58 IN: 132 QRS: -1 T: -73 INTERPRETIVE STATEMENTS: Sinus rhythm with occasional premature ventricular complexes and premature atrial complexes ST & T wave abnormality, consider inferolateral ischemia Prolonged QT Abnormal ECG No previous ECG available for comparison Electronically Signed On 01-24-22 09:25:13 CDT by Dwight Hayes
--- NOTE | 2022-01-24 10:40 | RAD REPORT ---
EXAM DESCRIPTION: CT - Head Brain Wo Cont - 01/22/2022 6:48 am CLINICAL HISTORY: 61 years Male Mental status change, unknown cause COMPARISON: None TECHNIQUE: Contiguous axial images of the brain were obtained without the administration of intraven ous contrast.This exam was performed according to our departmental dose-optimization program which in cludes use of Automated Exposure Control, adjustment of the mA and/or kV according to patient size an d/or use of iterative reconstruction technique. DLP: 931 mGy*cm FINDINGS: Brain: No acute intracranial hemorrhage. No extra-axial collection. No mass effect or ainsley iation. Prior right basal ganglia lacunar infarct Prominence of the sulci and cisterns. Confluent per iventricular and subcortical white matter hypodensity is noted. Vascular calcifications. Ventricles: Within normal limits in size. Globes and orbits: No acute abnormality. Bones: No acute osseous finding Paranasal sinuses: Paranasal sinuses are clear. Mastoid air cells: Well pneumatized. Soft tissues: Within normal limits IMPRESSION: 1. No acute intracranial hemorrhage, hydrocephalus or herniation. 2. Cerebral volume loss, chronic small vessel ischemic changes and prior right basal ganglia lacunar infarct. Consider MRI brain for further evaluation. Electronically signed by: Stephen Restrepo DO 01/22/2022 1:03 AM CDT Due to temporary technical issues with the PACS/Fluency reporting system, reports are being signed by the in house radiologists without review as a courtesy to insure prompt reporting. The interpreting radiologist is fully responsible for the content of the report.
--- NOTE | 2022-01-24 12:12 | P.PN ---
Subjective Date of Service: 01/24/22 Chief Complaint: Respiratory failure patient on a ventilator Patient's condition is stable on a ventilator dexmedetomidine drip Physical Examination - Vital Signs Temperature: 97.2 F Blood Pressure: 159/83 Pulse: 62 Respirations: 16 Pulse Ox (%): 96 - Studies Microbiology Data (last 24 hrs): 01/22/22 00:33 Clean Catch Urine [place] Count - Final No growth. 01/22/22 00:33 Clean Catch Urine - Final No growth. Assessment And Plan - Current Problems (Diagnosis) (1) Respiratory failure Current Visit: Yes Status: Acute Plan: Patient's condition is stable on dexmedetomidine drip blood pressure is mildly elevated oxygenation satisfactory plan to wean and extubate renal function is mildly abnormal his cultures are negative Qualifiers: Chronicity: acute
--- NOTE | 2022-01-24 12:21 | RAD REPORT ---
EXAM DESCRIPTION: RAD - Chest Single View - 01/22/2022 12:14 am CLINICAL HISTORY: 1 years Male, PIC placement COMPARISON: None IMPRESSION: Endotracheal tube terminating 5.2 cm above the phillip. Gastric tube terminating in the left upper abdomen. Placement of right IJ central venous line terminating in the right atrium. No focal consolidation. Prominence of the interstitium. No pleural effusion. No pneumothorax. Cardiomediastinal silhouette is within normal limits. No acute osseous abnormality. Suggestion of prior bilateral endarterectomies. Electronically signed by: Stephen Restrepo DO 01/22/2022 1:02 AM CDT Due to temporary technical issues with the PACS/Fluency reporting system, reports are being signed by the in house radiologists without review as a courtesy to insure prompt reporting. The interpreting radiologist is fully responsible for the content of the report.
[2022-01-24] MEDS: THIAMINE 200 MG/2 ML INJ IVP SCH ×2 (14:13→21:13)
[2022-01-24] MEDS: FENTANYL CITR 100 MCG/2 ML IV PRN (14:50)
--- NOTE | 2022-01-24 15:04 | RAD REPORT ---
EXAM DESCRIPTION: RAD - Chest Single View - 01/24/2022 2:54 pm CLINICAL HISTORY: on mech vent, respiratory distress COMPARISON: Portable January 22 TECHNIQUE: AP portable chest image was obtained 01/24/2022 2:54 pm . FINDINGS: Endotracheal tube is in place. Tip is mid aortic arch level approximately 4 cm above the c tonny. NG/OG tube is in place curled in the proximal stomach similar to prior imaging. Right-sided va scular access catheter is present. Tip is at the SVC atrial junction not substantially different from the comparison. Lung markings in the right base are fractionally increased over the comparison. This may be positioni ng and technique related. This can be monitored on serial imaging. Left lung field in the upper right lung field are not clearly different from comparison. Heart size is prominent but unchanged. Upper lobe vasculature within normal range. No measurable ple ural effusion and no pneumothorax. No acute bony abnormality seen. No acute aortic findings suspected . IMPRESSION: Questionable increased opacification in the right lung base. Patient can be monitored on serial imaging to determine if this is possible infectious or aspiration infiltrate versus imaging t echnique artifact. Tubes and lines are unchanged from January 22.
[2022-01-24] MEDS ORDERED: VALPROATE SODIUM INJ 1,000 MG in NA CHLORIDE 0.9% 100 ML IV ONE (18:00)
[2022-01-24] MEDS: DEXMEDETOMIDINE HCL 400 MCG in NA CHLORIDE 0.9% 196 ML IV SCH (18:20)
[2022-01-24] MEDS: CEFTRIAXONE 1,000 MG in NA CHLORIDE 0.9% 50 ML IVPB SCH (21:13)
[2022-01-25] MEDS: DEXMEDETOMIDINE HCL 400 MCG in NA CHLORIDE 0.9% 196 ML IV SCH ×2 (00:05→06:16)
[2022-01-25] MEDS: INSULIN -REGULAR HUMAN 50 UNIT/0.5 ML ML SQ SCH ×6 (00:32→20:29)
[2022-01-25] MEDS: FENTANYL CITR 100 MCG/2 ML IV PRN ×3 (03:00→21:55)
--- NOTE | 2022-01-25 03:14 | CON ---
Date of Consultation: 01/24/2022 Chief Complaint: Acute kidney injury. History Of Present Illness: The patient remains in ICU. He is intubated. He was admitted to the hospital because of DKA. He is a 61-year-old man with history of diabetes mellitus type 2, kdr-yzbmkrc-fnwsqryod and hypertension. The patient was brought by EMS to emergency room after he became unresponsive at home and he was found to have severe hyperglycemia. The patient was evaluated in the emergency room, became combative and had seizure episode. ABG was checked in the emergency room and pH was 7.25, pCO2 of 45, pO2 of 131, HCO3 of 19.3. CT scan of the head was done, which was negative for any acute findings. Nephrology consultation is requested for worsening of the renal function. The patient remains nonoliguric. He has Gunderson catheter. He remains intubated. Review of Systems: Unobtainable. Past Medical History: Diabetes mellitus type 2, insulin-dependent and hypertension. Additional History: Unknown. Family History: Unobtainable. Social History: Unknown. Physical Examination: General: The patient is unresponsive, obese. Neck: Supple. Lungs: Few rhonchi. Heart: S1, S2. Abdomen: Soft. Extremities: Slight edema in upper and lower extremity. Laboratory Data: On arrival to the hospital on January 21, the patient was found to have sodium 132, potassium 2.6, BUN 13, creatinine 1.65, glucose 544. Lab work today shows sodium 134, potassium 4.2, chloride 110, CO2 is 17, BUN 19, creatinine 1.79, glucose 364, calcium 6.8, magnesium 1.9, phosphorus 2.6, albumin 2.1. Total protein 5.4. Urinalysis on 01/22 showed glucose 2+, pH 6.0, specific gravity 1.020, blast 1+, leukocyte esterase 0.2, rbc from 5 to 10, wbc from 5 to 10. Urine culture is pending. Urine culture obtained on January 22 showed no growth. Impression And Plan: 1. Acute kidney injury. Renal function had improved, subsequently has worsened over last 48 hrs. The patient primarily was admitted for diabetic ketoacidosis and was found to have acute kidney injury secondary to uncontrolled diabetes and prerenal state. The patient likely has acute tubular necrosis, although remains nonoliguric. Plan is to check renal ultrasound to assess kidney size and echotexture. Continue to monitor urine output. Avoid angiotensin receptor mery and ARB, and avoid nonsteroidal anti-inflammatory medication. Prior to this admission, the patient was taking losartan and naprosyn, which likely is contributory for acute kidney injury along with diabetic ketoacidosis. Recommend to avoid metformin in the patient, who has high risk of acute kidney injury. 2. Respiratory failure, per pulmonary team. 3. Diabetes mellitus with renal manifestation. Plan is to evaluate proteinuria. 4. Hematuria. Check serology tests. EB/MODEugenie Voice ID: [id number] Report ID: [id number] DARIO
[2022-01-25 05:15] LABS: Absolute Lymphocytes (CBC) 1.4 K/uL (0.7-4.9); Hematocrit 36.6 % (39.6-49.0); Lymphocytes % 13.1 % (15.3-44.8); MCV 91.1 fL (80-100); MPV 9.5 fL (7.6-11.3); RBC Red Blood Cell Count 4.02 M/uL (4.33-5.43)
[2022-01-25 05:44] LABS: Bilirubin Total 0.5 mg/dL (0.2-1.0); CKMB Creatine Kinase MB 6.4 ng/mL (1.0-3.6); Magnesium 1.8 mg/dL (1.8-2.4); Phosphorus 2.9 mg/dL (2.5-4.9); Potassium 3.7 mmol/L (3.5-5.1); Protein, Total 5.4 g/dL (6.4-8.2)
[2022-01-25] MEDS: NA CHLORIDE 0.9% 1,000 ML IV SCH (06:19)
[2022-01-25] MEDS ORDERED: MAGNESIUM SULFATE 1 gm IVPB 1 GM/100 ML BAG IV ONE (07:00)
--- NOTE | 2022-01-25 08:24 | RAD REPORT ---
EXAM DESCRIPTION: RAD - Chest Single View - 01/25/2022 6:39 am CLINICAL HISTORY: Respiratory failure Chest pain. COMPARISON: Chest Single View dated 01/24/2022; Chest Single View dated 01/22/2022 FINDINGS: Portable technique limits examination quality. Tip of the endotracheal tube is at the level of the aortic arch. Enteric tube coils in the stomach. R ight-sided venous catheter has tip just entering the right atrium. Bilateral pulmonary opacities appe ar mildly improved since yesterday's study. The heart is moderately enlarged. IMPRESSION: Mild improvement in lung aeration since yesterday's study.
--- NOTE | 2022-01-25 08:30 | P.PN ---
Subjective Date of Service: 01/25/22 Chief Complaint: Respiratory failure patient on a ventilator Condition is stable moving all his extremities except the left arm partially opening eyes on dexmedetomidine Review of Systems is unable to be obtained Physical Examination - Vital Signs Temperature: 97.7 F Blood Pressure: 171/81 Pulse: 63 Respirations: 21 Pulse Ox (%): 99 - Physical Exam General: Unresponsive Respiratory: Clear to auscultation bilaterally Cardiovascular: Edema Gastrointestinal: Normal bowel sounds, Non-distended - Studies Microbiology Data (last 24 hrs): 01/22/22 00:33 Clean Catch Urine [place] Count - Final No growth. 01/22/22 00:33 Clean Catch Urine - Final No growth. Assessment And Plan - Current Problems (Diagnosis) (1) Respiratory failure Current Visit: Yes Status: Acute Plan: Currently stable minimal ventilation requirements and to wean him off from the ventilator and possibly extubate will insert a Dobbhoff parameters are all improving except his mental status patient is on dexmedetomidine was started on valproate yesterday by neurology no clinical evidence of sepsis patient is on water flushes DC IV fluids check procalcitonin if normal DC antibiotic Qualifiers: Chronicity: acute
--- NOTE | 2022-01-25 08:43 | RAD REPORT ---
EXAM DESCRIPTION: US - Renal Ultrasound-Complete - 01/25/2022 5:58 am CLINICAL HISTORY: satish Flank pain COMPARISON: <Comparisons> FINDINGS: Both kidneys are normal in size, shape and echotexture. The right kidney measures 11.9 x 6.9 x 4.7 cm. No hydronephrosis, focal mass or perinephric fluid. The left kidney measures 11.2 x 7.2 x 4.8 cm. No hydronephrosis, focal mass or perinephric fluid. The urinary bladder is incompletely distended without gross abnormality seen. IMPRESSION: Unremarkable renal sonogram.
[2022-01-25] MEDS: VALPROATE SODIUM INJ 500 MG in NA CHLORIDE 0.9% 100 ML IV SCH ×2 (08:58→20:29)
[2022-01-25] MEDS: ENOXAPARIN 40 MG/0.4 ML SQ SCH (08:58)
[2022-01-25] MEDS: THIAMINE 200 MG/2 ML INJ IVP SCH ×2 (08:58→20:29)
[2022-01-25] MEDS ORDERED: FUROSEMIDE 40 MG/4 ML VIAL IV ONE (10:12)
[2022-01-25] MEDS: D5 0.45 NS 1,000 ML with POTASSIUM CL 10 MEQ IV SCH ×2 (10:51)
[2022-01-25] MEDS ORDERED: VITAL AF 1,000 ML BOT RTH SCH (12:00)
[2022-01-25 13:03] LABS: Arterial Blood Carboxyhemoglob 1.2 % (0-1.5); Blood Gas Oxyhemoglobin 92.5 % (94-97)
--- NOTE | 2022-01-25 13:28 | P.PN ---
Subjective Date of Service: 01/25/22 Chief Complaint: Respiratory failure patient on a ventilator Patient more responsive today. Precedex drip is being weaned off. He has been stable respiratory joseph. He was extubated earlier this morning. Currently tolerating oxygen by nasal cannula. Physical Examination - Vital Signs Temperature: 97.7 F Blood Pressure: 151/94 Pulse: 66 Respirations: 24 Pulse Ox (%): 99 Assessment And Plan - Plan Physical exam GEN: intubated/sedated CV: Regular rate and rhythm, no edema Pulm: on mechanical ventilation, clear bilaterally ABD: Soft, non-distended Integumentary: No rashes Neuro: responsive to loud noise, not purposeful, withdraws to pain Problem List Diabetes mellitus type [id number]-ibywpns-guxnlnekm with ketoacidosis and coma Hypokalemia Lactic acidosis Seizure h/o R basal ganglia infarct (new info for patient, according to sister) Metabolic encephalopathy Plan: off insulin drip, gap closed; sliding scale q4h Urine output improved. Serum creatinine is trending down. On IV fluid nephrology is following. adjust insulin as needed Seizure in ambulance after narcan - possible side effect vs DKA vs withdrawl from possible drug use - urine tox positive for benzo only - given by EMS bacteruria noted, no pyruia, possible UTI; empiric rocephin DKA resolved hypokalemia improving lactic acidosis secondary to seizure, DKA, hypovolemia;. leukocytosis resolved Successfully extubated suspect seizure activity due to DKA sepsis ruled out. Wean off Precedex drip. Speech swallowing evaluation. VTE: Lovenox Code: Full Dispo: Likely home. Time Spent Managing Pts Care (In Minutes): 37
--- NOTE | 2022-01-25 15:41 | PN ---
Date of Progress Note: 01/25/2022 Subjective: The patient was admitted with acute kidney injury secondary to poor perfusion, ATN, DKA. The patient had DKA with acidosis. The patient was started on insulin drip, weaned from insulin drip. IV fluid has been discontinued today. Physical Examination: Vital Signs: When I saw the patient; blood pressure 151/94, pulse of 66, afebrile. The patient obtunded, extubated. Chest: Faint crackles on the left base. Heart: S1, S2. Systolic murmur. Abdomen: Soft, nontender. Extremity: No edema. Neuro: The patient moving 4 extremities. Obtunded, not oriented. Laboratory Data: WBC 10.3, H and H 12.3/36.6, and platelet of 186. Sodium 143, potassium 3.7, bicarb 15, BUN 22, creatinine 1.4, GFR of 44, calcium 7.4. Chest x-ray, cardiomegaly with congestion. Current Medications: The patient on include Lasix 40 mg, Zofran, magnesium, fentanyl. Assessment And Plan: 1. Acute kidney injury secondary to prerenal, normal size kidney 11.9/11.2, nonoliguric, proteinuric. On the recovery phase. Looked to me still close to the normal volume/wet side given the presence of the hypernatremia and persistent of the acidosis. I am going to go ahead and resume the fluid as D5 half at rate of 75. We will give the patient a single dose of Lasix and we will follow up the patient. 2. Hypernatremia secondary to depletional. We will change IV fluid. We will monitor. We will give single dose of Lasix to establish more sodium diuresis. 3. High anion gap metabolic acidosis with respiratory alkalosis and use by IV fluid. Diabetic ketoacidosis has been resolved. We will change IV fluid to decrease the chloride load and we will give Lasix. We will follow up. 4. Hypokalemia. We will supplement. 5. Diabetic ketoacidosis as by primary, resolved. Time spent examining the patient [id number], reviewing the data, placing order, discussing with by bedside, discussing with staff member including charge nurse and nursing and hospitalist 45 minutes. MARISSA Voice ID: [id number] Report ID: [id number] MTDD
[2022-01-25] MEDS: ZIPRASIDONE MESYLA 20 MG/VIAL IM PRN (19:27)
[2022-01-25] MEDS ORDERED: D5 0.45 NS 0 ML IV ONE (20:18)
[2022-01-25] MEDS: CEFTRIAXONE 1,000 MG in NA CHLORIDE 0.9% 50 ML IVPB SCH (20:28)
[2022-01-25] MEDS: HYDRALAZINE HCL 20 MG/ML VIAL IV PRN (20:30)
[2022-01-26] MEDS ORDERED: LABETALOL 20 MG/4ML SYRINGE IV ONE (00:08)
[2022-01-26] MEDS: D5 0.45 NS 1,000 ML with POTASSIUM CL 10 MEQ IV SCH ×4 (00:22→15:24)
[2022-01-26] MEDS: INSULIN -REGULAR HUMAN 50 UNIT/0.5 ML ML SQ SCH ×6 (00:37→23:02)
--- NOTE | 2022-01-26 01:30 | CON ---
Reason For Consultation: Consultation called because of seizures. History Of Present Illness: Mr. Wright is a 61-year-old patient with insulin-dependent diabetes mirian litus, hypertension, who comes to [facility] with diabetic ketoacidosis. He was found unres ponsive on his sofa after eating chocolate, found by his family. EMS was called, could not wake the patient, at the time when he was eventually awoken, he was combative and had a witnessed seizure. At [facility], arterial blood gas showed pH 7.25, pCO2 of 45, pO2 was 131, and this was after intubation and central line placement. He did not have additional seizure-like activity, but was in diabetic ketoacidosis with hypokalemia, renal failure, lactic acidosis, and bacteriuria. He was admi tted to the ICU. His head CT scan showed no acute ischemic or hemorrhagic changes. The study identi fied cerebral volume loss with chronic small vessel ischemic disease and a prior right basal ganglia lacunar infarct. MRI was suggested. It should be noted that the ICU staff were aware that the patie nt had some left-sided incoordination and weakness and this is likely related to his right basal gang bry stroke, which was chronic. He was treated with 1 g of Depakote and placed on 500 mg twice daily and has not had additional seizures. At the time of my evaluation, he was extubated, but still in th e ICU. No seizure activity noted. Past Medical History: As noted. Allergies: NO KNOWN DRUG ALLERGIES. Current Medications: Rocephin 1 g every 24 hours, dexmedetomidine 400 mcg IV titration, Lovenox 40 m g subcutaneously daily, Haldol 2 mg every 4 hours as needed, Apresoline 10 mg every 6 hours as needed , lorazepam 2 mg every 2 hours as needed, thiamine 200 mg IV. Family History: Noncontributory. Social History: Unknown at this point. Review of Systems: Not known. The patient is not verbally responding. Physical Examination: Vital Signs: Blood pressure 160/75, pulse 86, respiratory rate 18 to 22, temperature 97.7, weight 22 3 pounds, height 61 inches, BMI 29.5. General: Mr. Wright is resting in the ICU. He is extubated earlier. He is not responding to verba l stimulation, tactile stimulation extremities. General examination, no significant defic its noted there. Neurological: He is sedated, but to stimulus , he does not have any increased tone. No sh aking of the arms, legs. No deviation of the head or eyes. His tone appears normal. Laboratory Studies: Complete blood count, differential is essentially unremarkable. Most recent art erial blood gas today, pH 7.37, pCO2 24.9, pO2 81.9. Glucose ranged from 180-235, creatinine 1.44, A ST 92, ALT 103, alkaline phosphatase is 116. TSH 3.59 and a stroke workup pending. COVID-19 testing is negative. Assessment: Mr. Wright is a 61-year-old patient with seizures in the setting of diabetic ketoacidos is and abnormal electrolytes. His head CT scan shows chronic stroke, basal ganglia and small vessel ischemic disease. These do not explain his seizure. EEG was done and shows a significantly slow chauncey kground. No epileptiform activity was noted. Plan: 1.Continue Depakote 500 mg twice daily. 2.If the patient is able to do MRI of the brain without contrast, epilepsy protocol. 3.The patient will be followed after studies are done. HOANG/KATERYNA Voice ID: [id number] Report ID: [id number]
[2022-01-26] MEDS: HYDRALAZINE HCL 20 MG/ML VIAL IV PRN ×2 (01:58→23:06)
[2022-01-26] MEDS: LORazepam 2 MG/ML VIAL IV PRN (01:58)
[2022-01-26 06:32] LABS: Albumin 2.3 g/dL (3.4-5.0); Magnesium 1.5 mg/dL (1.8-2.4); Phosphorus 3.4 mg/dL (2.5-4.9)
[2022-01-26 06:34] LABS: Potassium 2.9 mmol/L (3.5-5.1)
[2022-01-26] MEDS ORDERED: Magnesium Sulfate 2gm IVPB 2 G/50 ML BAG IV ONE (07:14)
[2022-01-26] MEDS: KCL 20 MEQ/100 mL IVPB 20 MEQ/100 ML BAG IV SCH ×3 (08:24→13:49)
[2022-01-26] MEDS: THIAMINE 200 MG/2 ML INJ IVP SCH ×2 (08:25→23:06)
[2022-01-26] MEDS: ENOXAPARIN 40 MG/0.4 ML SQ SCH (08:25)
[2022-01-26] MEDS: VALPROATE SODIUM INJ 500 MG in NA CHLORIDE 0.9% 100 ML IV SCH ×2 (08:28→21:00)
--- NOTE | 2022-01-26 08:41 | EEG ---
CHART: [id number] TEST ID#: [id number] DATE OF STUDY: 01/24/2022 THE EEG WAS RECORDED PORTABLE IN THE PATIENTS ROOM ON A 17 CHANNEL MACHINE. ELECTRODES WERE APPLIED IN THE USUAL MANNER USING THE INTERNATIONAL 10-20 SYSTEM. THE WAKING BACKGROUND RHYTHM IN THIS RECORD CONSISTS OF POORLY DEVELOPED AND POORLY ORGANIZED WAVES OF 3-4 HZ., IN A WIDE DISTRIBUTION WHICH DO NOT ATTENUATE NORMALLY WITH EYE OPENING. MODERATE VOLTAGE DIAPHASIC SHARP WAVES ARE EXPRESSED IN THE FROTNAL REGIONS. THERE ARE NO FOCAL OR LATERALIZING FEATURES. NO EPILEPTIFORM ACTIVITY APPEARS. SLEEP DID NOT OCCUR. HYPERVENTILATION WAS NOT PERFORMED. PHOTIC STIMULATION WAS NOT PERFORMED. IMPRESSION: THIS IS A MODERATE TO SEVERELY ABNORMAL EEG DUE TO A MODERATE TO SEVERELY SLOW BACKGROUND AND ABSENT POSTERIOR DOMINANT RHYTHM. THESE ARE NON-SPECIFIC FINDING INDICATING THE PRESENCE OF A MODERATE TO SEVERE DIFFUSE DISTURBANCE IN CEREBRAL FUNCTION.
[2022-01-26] MEDS ORDERED: POTASSIUM CL SA 10 MEQ TAB PO ONE (11:30)
[2022-01-26] MEDS ORDERED: MAGNESIUM SULFATE 1 gm IVPB 1 GM/100 ML BAG IV ONE (11:30)
[2022-01-26] MEDS: AMLODIPINE 10 MG TAB PO SCH (11:42)
[2022-01-26] MEDS ORDERED: CLONIDINE 0.1 MG/PATCH TD SCH (12:00)
--- NOTE | 2022-01-26 12:24 | P.PN ---
Subjective Date of Service: 01/26/22 Chief Complaint: Delirium Patient was extubated yesterday is still delirious and responsive agitated Review of Systems is unable to be obtained Physical Examination - Vital Signs Temperature: 98 F Blood Pressure: 214/96 Pulse: 92 Respirations: 22 Pulse Ox (%): 94 - Physical Exam General: Alert, Delirious Respiratory: Clear to auscultation bilaterally Cardiovascular: No edema, Regular rate/rhythm Assessment And Plan - Current Problems (Diagnosis) (1) Delirium Current Visit: Yes Status: Acute Plan: Patient appears to be delirious agitated no evidence of sepsis DC Rocepnmn patient has presumed diabetic his blood sugars are elevated on Depakote (2) Diabetes Current Visit: Yes Status: Acute Plan: Hemoglobin A1c is 12 daily to start him on insulin probably has underlying chronic renal failure also has proteinuria Qualifiers: Diabetes mellitus type: type 2 (3) Severe hypertension Current Visit: Yes Status: Acute Plan: Blood pressure elevated
[2022-01-26] MEDS: INSULIN GLARGINE 100 UNIT/ML SQ SCH (12:52)
[2022-01-26] MEDS: PROPRANOLOL HCL 10 MG TAB PO SCH ×2 (12:53→21:00)
--- NOTE | 2022-01-26 13:57 | PN ---
Date of Progress Note: 01/26/2022 Subjective: The patient was admitted with acute kidney injury, acidosis, and DKA. His acidosis has been recovered, DKA resolved, off insulin drip. The patient was intubated, extubated. Physical Examination: Vital Signs: Blood pressure 195/93, pulse of 91, afebrile. Chest: Faint rales bilateral. Heart: S1, S2. Regular. Abdomen: Soft, nontender. Extremity: No edema. Neuro: The patient is still combative. Sleepy on physical exam. Laboratory Data: WBC 10.3, H and H 12.3/36.6. Sodium 143, potassium 2.9, bicarb 20, BUN 20, creatinine 1.2 trending down, GFR 63, blood sugar still elevated above 200, calcium 8.2, magnesium 1.5, phosphorus 3.2, albumin 2.3, corrected calcium is 9.4. Current Medications: The patient on include ceftriaxone, Lovenox, p.r.n. blood pressure medication, Lasix, received yesterday single dose. D5 half normal at 75 per hour. Assessment And Plan: 1. Acute kidney injury secondary to prerenal, on the recovery. The patient is significantly polyuric. The patient had urine output of 9 L on the last 24 hours. I am going to go ahead and increase his IV fluid to 100 per hour to avoid dehydration and bounce back and we will follow up the patient. We will follow up the urine protein electrophoresis. 2. Acidosis secondary to diabetic ketoacidosis, resolved. Continue IV fluid. The patient had severe hyperchloremia. 3. Hypokalemia, hypomagnesemia. We will supplement. 4. Hypernatremia, plateaued. Continue IV hydration. We will follow up with primary on advancing diet if possible. 5. Hypertension, not controlled. We will start the patient on clonidine patch, resume amlodipine 10 mg. Please keep avoiding his losartan for the time being for full recovery. 6. Diabetes, not controlled. I am going to start the patient on Lantus, continue sliding scale. Time spent examining the patient [id number], reviewing the data, placing order, discussing with by bedside, discussing with staff member including charge nurse and nursing and hospitalist 45 minutes. MARISSA Voice ID: [id number] Report ID: [id number] MTDD
--- NOTE | 2022-01-26 14:04 | P.PN ---
Subjective Date of Service: 01/26/22 Chief Complaint: Delirium Patient more responsive today. Blood pressure elevated today He has been stable respiratory joseph. Weaned off O2 and he is tolerating room air. Physical Examination - Vital Signs Temperature: 98 F Blood Pressure: 207/92 Pulse: 99 Respirations: 22 Pulse Ox (%): 94 Assessment And Plan - Plan Physical exam GEN: Occassionally agitated CV: Regular rate and rhythm, no edema Pulm: clear bilaterally. ABD: Soft, non-distended Integumentary: No rashes Neuro: Somnolent. He moves all extremities spontaneously Problem List Diabetes mellitus type [id number] with ketoacidosis and coma Hypokalemia Lactic acidosis Seizure h/o R basal ganglia infarct (new info for patient, according to sister) Metabolic encephalopathy Plan: off insulin drip, gap closed; sliding scale q4h Urine output improved. Serum creatinine is trending down. On IV fluid nephrology is following. adjust insulin as needed Seizure in ambulance after narcan - possible side effect vs DKA vs withdrawl from possible drug use - urine tox positive for benzo only - given by EMS bacteruria noted, no pyruia, possible UTI; treated with empiric rocephin DKA resolved He had polyuria with a complaint of worsening hypokalemia. Continue to replete potassium. lactic acidosis secondary to seizure, DKA, hypovolemia;. leukocytosis resolved Successfully extubated Suspect seizure activity due to DKA though patient is still somnolent still somnolent despite resolution of DKA. sepsis ruled out. Precedex drip weaned off. Head CT: Negative Neurology is following Patient is tolerating p.o. Patient with severe hypertension today. Oral meds resumed. Nephrology also added propranolol for blood pressure We will repeat head imaging once BP is under control. Continue neurochecks. VTE: Lovenox Code: Full Dispo: Likely home. Time Spent Managing Pts Care (In Minutes): 37
[2022-01-26 18:37] LABS: Magnesium 2.2 mg/dL (1.8-2.4); Potassium 3.8 mmol/L (3.5-5.1)
[2022-01-26] MEDS: HALOPERIDOL LACT 5 MG/ML INJ IV PRN (23:06)
[2022-01-26] MEDS ORDERED: NA CHLORIDE 0.9% 100 ML ONE (23:14)
[2022-01-27] MEDS: INSULIN -REGULAR HUMAN 50 UNIT/0.5 ML ML SQ SCH ×7 (01:00→20:06)
[2022-01-27] MEDS: D5 0.45 NS 1,000 ML with POTASSIUM CL 10 MEQ IV SCH ×2 (03:11)
[2022-01-27 05:04] LABS: Absolute Lymphocytes (CBC) 0.7 K/uL (0.7-4.9); Hematocrit 39.9 % (39.6-49.0); Lymphocytes % 8.1 % (15.3-44.8); MPV 8.2 fL (7.6-11.3); RBC Red Blood Cell Count 4.48 M/uL (4.33-5.43)
[2022-01-27 05:13] LABS: Albumin 2.4 g/dL (3.4-5.0); Magnesium 1.8 mg/dL (1.8-2.4); Phosphorus 2.9 mg/dL (2.5-4.9); Potassium 3.4 mmol/L (3.5-5.1)
[2022-01-27] MEDS ORDERED: Magnesium Sulfate 2gm IVPB 2 G/50 ML BAG IV ONE (05:46)
[2022-01-27] MEDS: KCL 20 MEQ/100 mL IVPB 20 MEQ/100 ML BAG IV SCH ×2 (06:14→08:18)
[2022-01-27] MEDS: PROPRANOLOL HCL 10 MG TAB PO SCH ×2 (08:54→20:07)
[2022-01-27] MEDS: AMLODIPINE 10 MG TAB PO SCH (08:55)
[2022-01-27] MEDS: ENOXAPARIN 40 MG/0.4 ML SQ SCH (08:56)
[2022-01-27] MEDS: INSULIN GLARGINE 100 UNIT/ML SQ SCH (08:58)
[2022-01-27] MEDS: VALPROATE SODIUM INJ 500 MG in NA CHLORIDE 0.9% 100 ML IV SCH ×2 (08:59→20:07)
[2022-01-27] MEDS: THIAMINE 200 MG/2 ML INJ IVP SCH ×2 (08:59→20:07)
[2022-01-27] MEDS ORDERED: INSULIN GLARGINE 100 UNIT/ML SQ SCH (09:00)
[2022-01-27] MEDS ORDERED: PROPRANOLOL HCL 10 MG TAB PO ONE (10:15)
[2022-01-27] MEDS ORDERED: POTASSIUM 25 MEQ EFFERV TAB PO ONE ×2 (10:49→20:00)
[2022-01-27] MEDS: D5.45NS W/KCL 20MEQ 1,000 ML IV SCH (12:02)
--- NOTE | 2022-01-27 13:44 | P.PN ---
Subjective Date of Service: 01/27/22 Chief Complaint: Delirium Patient communicating more appropriately today. Blood pressure remains elevated He has been stable respiratory joseph. He has been tolerating room air. Nursing staff report patient given indication he may be alcoholic. Physical Examination - Vital Signs Temperature: 97.2 F Blood Pressure: 194/95 Pulse: 84 Respirations: 24 Pulse Ox (%): 88 - Studies Microbiology Data (last 24 hrs): 01/21/22 23:30 Blood - Blood Aerobic Blood Culture - Final No growth in 5 days. 01/21/22 23:30 Blood - Blood Anaerobic Blood Culture - Final No growth in 5 days. 01/21/22 23:46 Blood - Blood Aerobic Blood Culture - Final No growth in 5 days. 01/21/22 23:46 Blood - Blood Anaerobic Blood Culture - Final No growth in 5 days. Assessment And Plan - Plan Physical exam GEN: Occassionally agitated CV: Regular rate and rhythm, no edema Pulm: clear bilaterally. ABD: Soft, non-distended Integumentary: No rashes Neuro: Somnolent. He moves all extremities spontaneously Problem List Diabetes mellitus type [id number] with ketoacidosis and coma Hypokalemia Lactic acidosis Seizure h/o R basal ganglia infarct (new info for patient, according to sister) Metabolic encephalopathy Acute renal failure Plan: Status post insulin drip. Continue insulin sliding scale Urine output has now decreased. Acute renal failure resolved. Patient with reduced oral intake. Continue IV fluid. nephrology is following. adjust insulin as needed Seizure in ambulance after narcan - possible side effect vs DKA vs withdrawl from possible drug use - urine tox positive for benzo only - given by EMS bacteruria noted, no pyruia, possible UTI; treated with empiric rocephin DKA resolved He had polyuria with led to hypokalemia. Continue to replete potassium. lactic acidosis secondary to seizure, DKA, hypovolemia;. leukocytosis resolved Successfully extubated Suspect seizure activity due to alcohol withdrawal and DKA. sepsis ruled out. Precedex drip weaned off. Head CT: Negative Neurology is following I suspect current AMS due to alcohol withdrawal. Continue oral antihypertensives. Continue neurochecks. Monitor for agitation and start CIWA as necessary. VTE: Lovenox Code: Full Dispo: Likely home. Time Spent Managing Pts Care (In Minutes): 37
--- NOTE | 2022-01-27 15:46 | PN ---
Date of Progress Note: 01/26/2022 Subjective: The patient was admitted with altered mental status, acidosis, BKA. The patient had significant hypernatremia and hypokalemia. The patient is on aggressive supplement. The patient is intubated, extubated, currently more awake. Physical Examination: Vital Signs: Blood pressure 191/102, pulse of 104, afebrile. Chest: Clear to auscultation. Heart: S1, S2. Systolic murmur. Abdomen: Soft, nontender. Extremities: No edema. Neuro: Alert. No focality, still pleasantly confused. Laboratory Data: WBC 8.4, H and H 13.7/39.9. Sodium 143, potassium 3.4, bicarb 24, BUN 15, creatinine 1, GFR of 77, calcium 8.6, phos 2.9, magnesium 1.8, albumin 2.4, corrected calcium is 9.8. Current Medications: The patient on: Its include: 1. Inderal 10 b.i.d. 2. Hydralazine p.r.n. 3. Clonidine 0.1. 4. Amlodipine 10. 5. Geodon insulin. 6. Lantus. 7. Magnesium oxide. 8. Fentanyl. 9. IV fluid. Assessment And Plan: 1. Acute kidney injury secondary to prerenal. Continue to recover. Currently polyuric because of the fluid resuscitation. I am going to go ahead and decrease the IV fluid to 75, and we will continue to monitor. 2. Hypomagnesemia. We will supplement. 3. Hypokalemia. We will increase the potassium supplement to the IV fluid. We will continue supplement. 4. Diabetes as by primary. 5. Acidosis secondary to diabetic ketoacidosis, recovered. 6. Hypernatremia. Sodium is trending down. Encourage p.o. intake. Time spent examining the patient [id number], reviewing the data, placing order, discussing with by bedside, discussing with staff member including charge nurse and nursing and hospitalist 45 minutes. MARISSA Voice ID: [id number] Report ID: [id number] DARIO
[2022-01-27 16:49] LABS: UR PROTEIN 197.4 mg/dL (<11.9); Urine Protein/Creatinine Ratio 4.7 ratio (<0.15)
[2022-01-27] MEDS: HALOPERIDOL LACT 5 MG/ML INJ IV PRN (19:07)
[2022-01-27] MEDS: NICOTINE 21 MG/PAT TD SCH (20:07)
[2022-01-28] MEDS: HALOPERIDOL LACT 5 MG/ML INJ IV PRN (00:28)
[2022-01-28] MEDS: D5.45NS W/KCL 20MEQ 1,000 ML IV SCH ×3 (02:36→18:15)
[2022-01-28 06:11] LABS: Albumin 2.2 g/dL (3.4-5.0); Magnesium 1.5 mg/dL (1.8-2.4); Potassium 3.3 mmol/L (3.5-5.1)
[2022-01-28] MEDS ORDERED: Magnesium Sulfate 2gm IVPB 2 G/50 ML BAG IV ONE (07:13)
[2022-01-28] MEDS: INSULIN -REGULAR HUMAN 50 UNIT/0.5 ML ML SQ SCH ×4 (07:30→21:21)
[2022-01-28] MEDS: VALPROATE SODIUM INJ 500 MG in NA CHLORIDE 0.9% 100 ML IV SCH ×2 (08:44→21:08)
[2022-01-28] MEDS ORDERED: NA CHLORIDE 0.9% 0 ML ONE (08:59)
[2022-01-28] MEDS: THIAMINE 200 MG/2 ML INJ IVP SCH ×2 (09:00→21:10)
[2022-01-28] MEDS: KCL 20 MEQ/100 mL IVPB 20 MEQ/100 ML BAG IV SCH ×2 (09:00→12:59)
[2022-01-28] MEDS: ENOXAPARIN 40 MG/0.4 ML SQ SCH (09:00)
[2022-01-28] MEDS: AMLODIPINE 10 MG TAB PO SCH (09:01)
[2022-01-28] MEDS: INSULIN GLARGINE 100 UNIT/ML SQ SCH (09:02)
[2022-01-28] MEDS: PROPRANOLOL HCL 10 MG TAB PO SCH ×2 (09:03→21:09)
--- NOTE | 2022-01-28 09:17 | P.PN ---
Subjective Date of Service: 01/28/22 Chief Complaint: Delirium Subjective: No new changes Physical Examination - Vital Signs Temperature: 97.1 F Blood Pressure: 143/73 Pulse: 75 Respirations: 11 Pulse Ox (%): 95 - Physical Exam General: In no apparent distress HEENT: Atraumatic, Normocephalic Neck: Supple, JVD not distended Respiratory: Other (symmetric chest expansion) Cardiovascular: No rubs, No murmurs Gastrointestinal: Soft and benign, No rebound Musculoskeletal: No clubbing Integumentary: No warmth Neurological: Normal tone Urinary: Other (no bladdder distention) External genitalia: Deferred Rectal: Deferred Assessment And Plan - Plan 1. Acute kidney injury secondary to prerenal state. Improved. Cont IV fluid same rate. Encourage po fluid intake. Monitor I/O, renal panel. 2. Hypomagnesemia. Mg repletion today. 3. Hypokalemia. KCl repletion today. 4. DM2. Mngt per primary team. 5. Acidosis secondary to diabetic ketoacidosis, recovered. 6. Hypernatremia. Resolved. IV/PO hydration as above.
--- NOTE | 2022-01-28 13:26 | P.PN ---
Subjective Date of Service: 01/28/22 Chief Complaint: Delirium Mental status is improving but slow. He is able to communicate, though speech is slurred and has psychomotor retardation. Blood pressure readings have improved. He has been stable on room air. He denied daily alcohol intake. Physical Examination - Vital Signs Temperature: 97.1 F Blood Pressure: 143/73 Pulse: 75 Respirations: 11 Pulse Ox (%): 95 Assessment And Plan - Plan Physical exam GEN: Occassionally agitated CV: Regular rate and rhythm, no edema Pulm: clear bilaterally. ABD: Soft, non-distended Integumentary: No rashes Neuro: Somnolent. He moves all extremities spontaneously Problem List Diabetes mellitus type [id number] with ketoacidosis and coma Hypokalemia Lactic acidosis Seizure h/o R basal ganglia infarct (new info for patient, according to sister) Metabolic encephalopathy Acute renal failure Plan: Status post insulin drip. Continue insulin sliding scale. Add low-dose Lantus. Acute renal failure resolved. Patient with reduced oral intake. Continue IV fluid. nephrology is following. Seizure in ambulance after narcan - possible side effect vs DKA vs withdrawl from possible drug use - urine tox positive for benzo only - given by EMS bacteruria noted, no pyruia, possible UTI; treated with empiric rocephin DKA resolved Hypokalemia likely secondary to polyuria Patient still has polyuria. Continue to replete potassium. lactic acidosis secondary to seizure, DKA, hypovolemia;. leukocytosis resolved Status post intubation and mechanical ventilation. Patient currently tolerating room air. Suspect seizure activity due to possible alcohol withdrawal and DKA. sepsis ruled out. Status post Precedex drip. Head CT: Negative Neurology is following I suspect current AMS due to alcohol withdrawal but patient denies daily alcohol intake. Obtain MRI of the brain Continue oral antihypertensives. Continue neurochecks. Monitor for agitation and start CIWA as necessary. VTE: Lovenox Code: Full Dispo: Likely home. Time Spent Managing Pts Care (In Minutes): 37
[2022-01-28] MEDS: NICOTINE 21 MG/PAT TD SCH (21:09)
[2022-01-28] MEDS: GLUCERNA SHAKE 237 ML CAN PO SCH (21:33)
[2022-01-29] MEDS: D5.45NS W/KCL 20MEQ 1,000 ML IV SCH (03:00)
[2022-01-29 05:54] LABS: Albumin 2.3 g/dL (3.4-5.0)
[2022-01-29 06:11] LABS: Magnesium 1.6 mg/dL (1.8-2.4); Potassium 3.6 mmol/L (3.5-5.1)
[2022-01-29] MEDS: PROPRANOLOL HCL 10 MG TAB PO SCH ×2 (08:43→19:52)
[2022-01-29] MEDS: ENOXAPARIN 40 MG/0.4 ML SQ SCH (08:43)
[2022-01-29] MEDS: THIAMINE HCL 100 MG TABLET PO SCH ×2 (08:43→19:52)
[2022-01-29] MEDS: INSULIN -REGULAR HUMAN 50 UNIT/0.5 ML ML SQ SCH ×4 (08:44→20:57)
[2022-01-29] MEDS: AMLODIPINE 10 MG TAB PO SCH (08:44)
[2022-01-29] MEDS: INSULIN GLARGINE 100 UNIT/ML SQ SCH (08:45)
[2022-01-29] MEDS: GLUCERNA SHAKE 237 ML CAN PO SCH ×2 (08:46→20:46)
[2022-01-29] MEDS ORDERED: POTASSIUM 25 MEQ EFFERV TAB PO ONE ×2 (09:00→13:00)
[2022-01-29] MEDS: VALPROATE SODIUM INJ 500 MG in NA CHLORIDE 0.9% 100 ML IV SCH (09:00)
[2022-01-29] MEDS ORDERED: MAGNESIUM SULFATE 1 gm IVPB 1 GM/100 ML BAG IV ONE ×2 (09:00→12:34)
--- NOTE | 2022-01-29 12:17 | P.PN ---
Subjective Date of Service: 01/29/22 Chief Complaint: Delirium Patient is more alert and interactive. He fed himself today and ate all his breakfast. He has been stable on room air. Physical Examination - Vital Signs Temperature: 98.7 F Blood Pressure: 142/90 Pulse: 62 Respirations: 20 Pulse Ox (%): 93 Assessment And Plan - Plan Physical exam GEN: Occassionally agitated CV: Regular rate and rhythm, no edema Pulm: clear bilaterally. ABD: Soft, non-distended Integumentary: No rashes Neuro: Somnolent. He moves all extremities spontaneously Problem List Diabetes mellitus type [id number] with ketoacidosis and coma Hypokalemia Lactic acidosis Seizure h/o R basal ganglia infarct (new info for patient, according to sister) Metabolic encephalopathy Acute renal failure Plan: Status post insulin drip. Continue insulin sliding scale. Lantus. Acute renal failure resolved. Discontinue IV fluid nephrology is following. Seizure in ambulance after narcan - possible side effect vs DKA vs withdrawl from possible drug use - urine tox positive for benzo only - given by EMS bacteruria noted, no pyruia, possible UTI; treated with empiric rocephin DKA resolved Hypokalemia likely secondary to polyuria Polyuria improved Continue to replete potassium. lactic acidosis secondary to seizure, DKA, hypovolemia;. leukocytosis resolved Status post intubation and mechanical ventilation. Patient currently tolerating room air. Suspect seizure activity due to possible alcohol withdrawal and DKA. sepsis ruled out. Status post Precedex drip. Head CT: Negative Neurology is following I suspect current AMS due to alcohol withdrawal but patient denies daily alcohol intake. MRI of the brain not done. Patient not lying still for MRI to be done. Continue oral antihypertensives. Continue neurochecks. Clinically improving. VTE: Lovenox Code: Full Dispo: Likely home.
[2022-01-29] MEDS: HALOPERIDOL LACT 5 MG/ML INJ IV PRN ×2 (13:30→19:42)
[2022-01-29] MEDS: ZIPRASIDONE MESYLA 20 MG/VIAL IM PRN (13:38)
[2022-01-29] MEDS: WATER FOR INJ,STERILE 10 ML IM PRN (13:38)
--- NOTE | 2022-01-29 14:03 | PN ---
Date of Progress Note: 01/29/2022 Subjective: The patient was admitted with altered mental status, DKA, hypernatremia, and hypokalemia. The patient was treated for the DKA, recovered. The patient has significant depletion on electrolyte, hypomagnesemia, hypokalemia, recovered. The patient more awake today. After that the patient developed polyuria with urine output more than 9 L. For that reason, we kept the Gunderson today. His urine output has decreased down to 4 L after we decreased the IV fluid gradually. Physical Examination: General: The patient more awake today. Vital Signs: Blood pressure 142/90, pulse of 62, afebrile. Chest: Faint rales on the right base. Heart: S1, S2. Systolic murmur. Abdomen: Soft, nontender. Extremities: No edema. Neuro: Alert. No focality. Laboratory Data: WBC 8.4, H and H 13.7/39.9. Sodium 133, potassium 3.6, bicarb 23, BUN 17, creatinine 0.8, calcium 8.7, phosphorus 3, magnesium 1.6, albumin 2.3, corrected calcium is 9.9. Current Medications: The patient on include: 1. IV fluid at 75 per hour. 2. Nicotine. 3. Amlodipine 10 mg daily. 4. Clonidine. 5. Inderal 20 b.i.d. 6. Depakote. 7. Zofran. 8. Insulin. Assessment And Plan: 1. Acute kidney injury secondary to prerenal, secondary to glucose diuresis, recovered, resolved. 2. Hyponatremia, secondary to depletion, resolved. 3. Hypokalemia, status post supplement, we will follow up. 4. Hypomagnesemia. We will continue supplement. 5. Polyuria, secondary to Diluted [place]ud[place] after the fluid resuscitation recovered. Currently urine output around 4 L. We will discontinue IV fluid. We will continue to monitor the patient. Okay to discontinue Gunderson. 6. Altered mental status, possible secondary to alcoholic withdrawal, recovered. Will follow up with the primary. Time spent examining the patient [id number], reviewing the data, placing order, discussing with by bedside, discussing with staff member including charge nurse and nursing and hospitalist 45 minutes. MARISSA Voice ID: [id number] Report ID: [id number] MTDD
[2022-01-29] MEDS: NICOTINE 21 MG/PAT TD SCH (19:51)
[2022-01-29] MEDS ORDERED: DIVALPROEX ER 250 MG TAB PO SCH (21:00)
[2022-01-29] MEDS ORDERED: DIVALPROEX DR 500MG TAB PO SCH (21:00)
[2022-01-30] MEDS: ZIPRASIDONE MESYLA 20 MG/VIAL IM PRN (00:47)
[2022-01-30] MEDS: WATER FOR INJ,STERILE 10 ML IM PRN (00:47)
[2022-01-30] MEDS: HALOPERIDOL LACT 5 MG/ML INJ IV PRN ×2 (01:15→18:11)
[2022-01-30 05:19] LABS: Albumin 2.3 g/dL (3.4-5.0); Magnesium 1.9 mg/dL (1.8-2.4); Potassium 3.4 mmol/L (3.5-5.1)
[2022-01-30] MEDS ORDERED: POTASSIUM 25 MEQ EFFERV TAB PO ONE ×2 (06:30→13:00)
[2022-01-30] MEDS: ENOXAPARIN 40 MG/0.4 ML SQ SCH (10:21)
[2022-01-30] MEDS: INSULIN -REGULAR HUMAN 50 UNIT/0.5 ML ML SQ SCH ×4 (10:22→20:47)
[2022-01-30] MEDS: INSULIN GLARGINE 100 UNIT/ML SQ SCH (10:23)
[2022-01-30] MEDS: GLUCERNA SHAKE 237 ML CAN PO SCH ×2 (10:23→20:48)
[2022-01-30] MEDS: THIAMINE HCL 100 MG TABLET PO SCH ×2 (10:39→20:47)
[2022-01-30] MEDS: DIVALPROEX ER 250 MG TAB PO SCH ×2 (10:39→20:47)
[2022-01-30] MEDS: AMLODIPINE 10 MG TAB PO SCH (10:40)
--- NOTE | 2022-01-30 11:36 | P.PN ---
Subjective Date of Service: 01/30/22 Chief Complaint: Delirium Nursing staff report patient was agitated last night. He was given a dose of Geodon last night. He is somnolent this morning. Physical Examination - Vital Signs Temperature: 97.1 F Blood Pressure: 149/81 Pulse: 76 Respirations: 15 Pulse Ox (%): 88 Assessment And Plan - Plan Physical exam GEN: Occassionally agitated CV: Regular rate and rhythm, no edema Pulm: clear bilaterally. ABD: Soft, non-distended Integumentary: No rashes Neuro: Somnolent. He moves all extremities spontaneously Problem List Diabetes mellitus type [id number] with ketoacidosis and coma Hypokalemia Lactic acidosis Seizure h/o R basal ganglia infarct (new info for patient, according to sister) Metabolic encephalopathy Acute renal failure Plan: Status post insulin drip. Continue insulin sliding scale. Lantus. Acute renal failure resolved. Discontinue IV fluid nephrology is following. Seizure in ambulance after narcan - possible side effect vs DKA vs withdrawl from possible drug use - urine tox positive for benzo only - given by EMS bacteruria noted, no pyruia, possible UTI; treated with empiric rocephin DKA resolved Hypokalemia likely secondary to polyuria Polyuria improved Continue to replete potassium. lactic acidosis secondary to seizure, DKA, hypovolemia;. leukocytosis resolved Status post intubation and mechanical ventilation. Patient currently tolerating room air. Suspect seizure activity due to possible alcohol withdrawal and DKA. Patient currently on Depakote. sepsis ruled out. Status post Precedex drip. Head CT: Negative Neurology is following I suspect current AMS due to alcohol withdrawal but patient denies daily alcohol intake. MRI of the brain not done. Patient not lying still for MRI to be done. We will attempt to do MRI of the brain tomorrow. Check ammonia level. Continue oral antihypertensives. Continue neurochecks. VTE: Lovenox Code: Full Dispo: Likely home.
[2022-01-30] MEDS: PROPRANOLOL HCL 10 MG TAB PO SCH ×2 (11:42→20:46)
[2022-01-30 12:01] LABS: Albumin, (SPE) 2.5 g/dL (3.8-4.8); Alpha-1-Globulins 0.4 g/dL (0.2-0.3); Alpha-2-Globulins 0.8 g/dL (0.5-0.9); Gamma Globulins 0.6 g/dL (0.8-1.7); INTERPRETATION REPORT
[2022-01-30] MEDS ORDERED: MAGNESIUM SULFATE 1 gm IVPB 1 GM/100 ML BAG IV ONE (12:44)
--- NOTE | 2022-01-30 14:07 | PN ---
Date of Progress Note: 01/30/2022 Subjective: The patient was admitted with the DKA, hypernatremia, acidosis, severe Hypokalemia. The patient had uncontrolled blood pressure. Yesterday was medicated with Geodon because of agitation. The patient developed bradycardia. The patient currently comfortable. Physical Examination: Vital Signs: When I saw the patient; blood pressure 149/80, pulse of 76, afebrile. Chest: Clear to auscultation. Heart: S1, S2. Regular. Abdomen: Soft, nontender. Extremity: No edema. Neuro: Alert. No focality. Pleasantly confused. Laboratory Data: WBC 8.4, H and H 13.7/39.9. Sodium 134, potassium 3.4, bicarb 26, BUN 17, creatinine 0.9, calcium 8.8, phosphorus 4, magnesium 1.9. Current Medications: The patient on include nicotine, amlodipine 10 mg, clonidine patch 0.1, propranolol 20 mg, haloperidol, insulin. Assessment And Plan: 1. Acute kidney injury secondary to prerenal, recovered, resolved, with the history of diabetes and diabetic ketoacidosis and persistent of the hypokalemia and incident of bradycardia. I am going to go ahead and discontinue clonidine. We will continue the propranolol and I am going to place the patient on lisinopril. We will follow up. 2. Acidosis secondary to diabetic ketoacidosis, recovered, resolved, and did not require any bicarb. 3. Hypokalemia. The patient received 50 mEq yesterday, rise from 3.6 down to 3.4. The patient received today another 50. I am going to give him another 25 to complete up to 75 and we will follow up. 4. Hypomagnesemia. We will supplement. 5. Hypertension, not controlled with the presence of bradycardia as above. 6. Altered mental status as by primary. 7. Anemia. Serum protein electrophoresis within normal limit. 8. Nephrotic range of proteinuria, mostly secondary to diabetes. Serology was negative. Serum protein electrophoresis was negative. I am going to start the patient on DOV inhibitor and we will follow up. 9. Diabetes as by primary. Blood sugar is still elevated. We will go ahead and increase his Lantus to 22. We will follow up with hospitalist. Time spent examining the patient [id number], reviewing the data, placing order, discussing with by bedside, discussing with staff member including charge nurse and nursing and hospitalist 45 minutes. MARISSA Voice ID: [id number] Report ID: [id number] [email or web address]
[2022-01-30] MEDS ORDERED: WATER FOR INJ,STERILE 10 ML IM PRN (18:30)
[2022-01-30] MEDS ORDERED: ZIPRASIDONE MESYLA 20 MG/VIAL IM PRN (18:30)
[2022-01-30] MEDS: NICOTINE 21 MG/PAT TD SCH (20:47)
[2022-01-31 05:16] LABS: MPV 8.5 fL (7.6-11.3)
[2022-01-31 05:23] LABS: Absolute Lymphocytes (CBC) 2.5 K/uL (0.7-4.9); Hematocrit 40.6 % (39.6-49.0); Lymphocytes % 22.3 % (15.3-44.8); MCV 89.2 fL (80-100); RBC Red Blood Cell Count 4.56 M/uL (4.33-5.43)
[2022-01-31 05:29] LABS: Potassium 3.9 mmol/L (3.5-5.1)
[2022-01-31] MEDS: GLUCERNA SHAKE 237 ML CAN PO SCH ×2 (08:15→20:45)
[2022-01-31] MEDS: ENOXAPARIN 40 MG/0.4 ML SQ SCH (08:16)
[2022-01-31] MEDS: INSULIN GLARGINE 100 UNIT/ML SQ SCH (08:16)
[2022-01-31] MEDS: INSULIN -REGULAR HUMAN 50 UNIT/0.5 ML ML SQ SCH ×4 (08:16→20:46)
[2022-01-31] MEDS: DIVALPROEX ER 250 MG TAB PO SCH (08:17)
[2022-01-31] MEDS: THIAMINE HCL 100 MG TABLET PO SCH ×2 (08:17→20:45)
[2022-01-31] MEDS: AMLODIPINE 10 MG TAB PO SCH (08:18)
[2022-01-31] MEDS: lisinopriL 20 MG TAB PO SCH (08:18)
[2022-01-31 08:36] LABS: Blood Morphology Comment NOT SEEN (NOT SEEN); Platelet Estimate ADEQ; White Blood Cell Scan OK (OK)
[2022-01-31] MEDS: PROPRANOLOL HCL 10 MG TAB PO SCH (09:00)
--- NOTE | 2022-01-31 12:46 | RAD REPORT ---
EXAM DESCRIPTION: MRI - Brain W/Wo Cont - 01/31/2022 10:13 am CLINICAL HISTORY: Alteration of consciousness/confusion COMPARISON: head CT January 22, 2022 TECHNIQUE: Axial, sagittal, and coronal magnetic images of the brain were obtained. 20 cc MultiHance administered intravenously FINDINGS: Diffusion-weighted/ADC mapping demonstrate 2.5 centimeter area of abnormal signal right oc cipital lobe. 4.2 centimeter area of abnormal signal right frontal lobe. Multiple small areas of abnormal signal within the white matter right frontal and right parietal lobe s. Punctate area of abnormal signal deep white matter left parietal lobe. All of these areas represent infarcts. Some of these areas demonstrate enhancement. Ventricles are normal caliber Old lacunar infarct right internal capsule/right basal ganglia An extra-axial fluid collection is not noted. Fluid within the sinuses/mastoids is not seen IMPRESSION: Scattered acute right cerebral infarction. Punctate acute left cerebral infarct Further imaging with CT angiogram/magnetic resonance neck angiogram may be helpful
--- NOTE | 2022-01-31 12:52 | P.PN ---
Subjective Date of Service: 01/31/22 Chief Complaint: Delirium Patient is much more alert and oriented today. He is oriented x3. No agitation. Physical Examination - Vital Signs Temperature: 97.4 F Blood Pressure: 141/77 Pulse: 85 Respirations: 19 Pulse Ox (%): 93 Assessment And Plan - Plan Physical exam GEN: Occassionally agitated CV: Regular rate and rhythm, no edema Pulm: clear bilaterally. ABD: Soft, non-distended Integumentary: No rashes Neuro: Alert and oriented x3, he moves all extremities spontaneously, left-sided weakness(from old CVA) Problem List Diabetes mellitus type [id number] with ketoacidosis and coma Hypokalemia Lactic acidosis Seizure h/o R basal ganglia infarct (new info for patient, according to sister) Metabolic encephalopathy Acute renal failure Plan: Status post insulin drip. Continue insulin sliding scale. Lantus. Acute renal failure resolved. IV fluid discontinued. nephrology is following. Seizure in ambulance after narcan - possible side effect vs DKA vs withdrawl from possible drug use - urine tox positive for benzo only - given by EMS. Patient placed on IV Depakote per neurology. Depakote transition to oral. Ammonia level is within normal limits. bacteruria noted, no pyruia, possible UTI; treated with empiric rocephin DKA resolved Hypokalemia likely secondary to polyuria Polyuria improved Continue to replete potassium. lactic acidosis secondary to seizure, DKA, hypovolemia;. leukocytosis resolved Status post intubation and mechanical ventilation. Patient currently tolerating room air. Suspect seizure activity due to possible alcohol withdrawal and DKA. sepsis ruled out. Status post Precedex drip. Head CT: Negative Neurology is following Patient denies alcohol intake. He stated he has not drank alcohol for the past 14 years. MRI of the brain done today and the result is pending. Neurology to follow. Mental status significantly improved Continue oral antihypertensives. Patient prefers to go home on discharge. VTE: Lovenox Code: Full Dispo: Home with home health.
[2022-01-31] MEDS ORDERED: WARFARIN SODIUM 5 MG TAB PO ONE (19:00)
--- NOTE | 2022-01-31 19:23 | P.PN ---
Date of Service: 02/01/22 Subjective: confused/agitated overnight, given more geodon somnolent this morning ROS: 10 point ROS unable to be obtained Physical exam GEN: somnolent, responds to painful stimuli CV: Regular rate and rhythm, no edema Pulm: clear bilaterally, non-labored ABD: Soft, non-distended Integumentary: No rashes Neuro: left-sided weakness, unable to fully evaluate, somnolent Problem List DM2, insulin dependent, with DKA Metabolic encephalopathy secondary to DKA Hypokalemia, Lactic acidosis secondary to DKA / ANA ANA, pre-renal Seizure scattered acute right cerebral infarction (Frontal & Parietal); punctate acute left cerebral infarct (Parietal) h/o prior R basal ganglia infarct DKA resolved; s/p insulin drip, weaned to lantus + sliding scale A1c: 12 patient on oral diabetic meds previously, will need insulin on discharge bacteruria noted, no pyruia, possible UTI; treated with empiric rocephin sepsis ruled out lactic acidosis secondary to seizure, DKA, hypovolemia ANA resolved, with IVF; suspect secondary to pre-renal Nephrology following Initial CT head (01/21): old basal ganglia infarct, negative for acute process MRI (01/31): Scattered acute right cerebral infarction. - right frontal and parietal lobes Punctate acute left cerebral infarct - left parietal lobe Old lacunar infarct right internal capsule / right basal ganglia Seizure in ambulance after narcan - possible side effect vs DKA urine tox positive for benzo only - given by EMS. Patient placed on IV Depakote per neurology initially. Transitioned to oral. eval embolic source for CVA, echo, neck imaging coumadin initiated 01/31 and dc'd 02/01; neurology recommends aspirin/plavix given MRA findings MRA neck reveals 80-90% proximal carotid stenosis - sister states she thinks he had both carotids "Cleaned out" many years ago Cardiology consulted - possible angiogram tomorrow vs next day for further eval may need to be transferred for vascular surgery PT noted L-sided weakness, diminished awareness, visual field defecits, im pulsivity echo (02/01) no cardiac thrombus / no vegetation s/p intubation and mechanical ventilation. Patient currently tolerating room air. s/p precedex drip Patient denies alcohol intake. He stated he has not drank alcohol for the past 14 years. Mental status significantly improved, but still with intermittent confusion / agitation Continue oral antihypertensives - avoid significant hypotension Patient prefers to go home on discharge. Family state will have 23/01 supervision and have experience with home health care VTE: hep drip, coumadin dc'd today Code: Full Dispo: Home with home health. ~3-4 days Time Spent Managing Pts Care (In Minutes): 35
[2022-01-31] MEDS: NICOTINE 21 MG/PAT TD SCH (20:45)
[2022-01-31] MEDS: HEPARIN/D5W 25,000 UNIT/500 ML BAG IV SCH (20:47)
--- NOTE | 2022-01-31 23:08 | PN ---
Date of Progress Note: 01/31/2022 Chief Complaint: Acute kidney injury, secondary to prerenal condition. Patient was admitted for DKA and was found to have prerenal azotemia and nonoliguric ATN. Patient di d not require dialysis. Patient had acidosis and severe hypokalemia. Electrolyte abnormalities were treated and addressed with treatment of DKA. Potassium level is on low side and patient is receivin g replacement. Magnesium level has improved. Review of Systems: The patient cannot provide review of systems. He remains encephalopathic, although he is more alert today. He received Geodon for agitation. Review of Systems: Unobtainable. Physical Examination: Lungs: Normal respiratory effort. Heart: S1, S2. Abdomen: Soft. Extremities: No edema. Impression: 1.Acute kidney injury, secondary to prerenal. Renal function has improved and acute kidney injury r esolved. Patient was found to have acute kidney injury, in setting of uncontrolled diabetes and diab etic ketoacidosis. The patient has persistent hypokalemia and bradycardia. Patient has been treated with potassium repletion and due to bradycardia, clonidine was stopped. 2.Hypomagnesemia, was supplemented and magnesium level has improved. 3.Patient has nephrotic range proteinuria, likely secondary to diabetes mellitus. Patient was start ed on DOV inhibitor. Plan is to monitor renal function and potassium level. 4.Diabetes mellitus. Continue insulin. EB/MODL Voice ID: [id number] Report ID: [id number]
[2022-02-01 05:21] LABS: Absolute Lymphocytes (CBC) 1.8 K/uL (0.7-4.9); Hematocrit 40.2 % (39.6-49.0); Lymphocytes % 25.9 % (15.3-44.8); MCV 88.8 fL (80-100); RBC Red Blood Cell Count 4.53 M/uL (4.33-5.43)
[2022-02-01 05:24] LABS: Protime INR 1.07
[2022-02-01 05:30] LABS: Albumin 2.5 g/dL (3.4-5.0); Bilirubin Total 0.3 mg/dL (0.2-1.0); Magnesium 1.9 mg/dL (1.8-2.4); Potassium 3.2 mmol/L (3.5-5.1); Protein, Total 6.8 g/dL (6.4-8.2)
[2022-02-01] MEDS ORDERED: POTASSIUM 25 MEQ EFFERV TAB PO ONE ×2 (05:44→11:02)
[2022-02-01] MEDS: HALOPERIDOL LACT 5 MG/ML INJ IV PRN (05:58)
[2022-02-01] MEDS: INSULIN GLARGINE 100 UNIT/ML SQ SCH (08:44)
[2022-02-01] MEDS: INSULIN -REGULAR HUMAN 50 UNIT/0.5 ML ML SQ SCH ×4 (08:44→21:05)
[2022-02-01] MEDS: GLUCERNA SHAKE 237 ML CAN PO SCH ×2 (09:00→21:06)
[2022-02-01] MEDS: AMLODIPINE 10 MG TAB PO SCH (09:00)
[2022-02-01] MEDS: lisinopriL 20 MG TAB PO SCH (09:00)
[2022-02-01] MEDS: DIVALPROEX ER 250 MG TAB PO SCH (11:07)
[2022-02-01] MEDS: THIAMINE HCL 100 MG TABLET PO SCH ×2 (11:07→21:06)
--- NOTE | 2022-02-01 14:10 | ECHO ---
HEIGHT: 6 ft 1 in WEIGHT: 198 lb 6.4 oz DATE OF STUDY: 02/01/[address]: Amauri Hudson MD 2-DIMENSIONAL: YES M.MODE: YES DOPPLER: YES COLOR FLOW: YES TDS: NO PORTABLE: YES DEFINITY: NO BUBBLE STUDY: NO DIAGNOSIS: ACUTE CVA CARDIAC HISTORY: CATHERIZATION: NO SURGERY: NO PROSTHETIC VALVE: NO PACEMAKER: NO MEASUREMENTS (cm) DIASTOLIC (NORMALS) SYSTOLIC (NORMALS) IVSd 1.3 (0.6-1.2) LA Diam 2.9 (1.9-4.0) LVEF 55% LVIDd 4.9 (3.5-5.7) LVIDs 3.5 (2.0-3.5) %FS 29% LVPWd 1.3 (0.6-1.2) Ao Diam 2.4 (2.0-3.7) 2 DIMENSIONAL ASSESSMENT: RIGHT ATRIUM: NORMAL LEFT ATRIUM: NORMAL RIGHT VENTRICLE: NORMAL LEFT VENTRICLE: NORMAL TRICUSPID VALVE: NORMAL MITRAL VALVE: MITRAL ANNULAR CALCIFICATION PULMONIC VALVE: NORMAL AORTIC VALVE: NORMAL PERICARDIAL EFFUSION: NONE AORTIC ROOT: NORMAL LEFT VENTRICULAR WALL MOTION: NORMAL DOPPLER/COLOR FLOW: SEE BELOW COMMENTS: LOW NORMAL LEFT VENTRICULAR EJECTION FRACTION 50-55%. MITRAL ANNULAR CALCIFICATION WITH MILD MITRAL REGURGITATION. GRADE I DIASTOLIC DYSFUNCTION. TECHNOLOGIST: Iain TSEVENSON
--- NOTE | 2022-02-01 14:30 | PN ---
Date of Progress Note: 02/01/2022 Subjective: The patient was admitted with altered mental status, DKA, hypertension, hypernatremia. The patient's acidosis has been resolved. The patient had altered mental status. Blood pressure better controlled. MRI showed multiple embolic CVAs. The patient was started on Coumadin and heparin and workup for stroke. Physical Examination: Vital Signs: Blood pressure of 145/86, pulse of 80, afebrile. Chest: Clear to auscultation. Heart: S1, S2. Regular. Abdomen: Soft, nontender. Extremity: No edema. Neuro: The patient is sleeping. No focality. Laboratory Data: WBC 7, H and H 13.6/40.2. Sodium 132, potassium 3.2, bicarb 28, BUN 21, creatinine 1.1, GFR of 70, calcium 8.8. Current Medications: The patient on include; 1. Nicotine patch. 2. Heparin drip. 3. Coumadin 10 mg. 4. Amlodipine 10 mg. 5. Lisinopril 20 mg daily. 6. Glucerna. Assessment And Plan: 1. Acute kidney injury secondary to prerenal, recovered, resolved. 2. Hypokalemia. We will supplement. 3. Hypomagnesemia, status post supplement recovered. 4. Hypertension with the presence of recent cerebrovascular accident. I am going to decrease amlodipine to 5 mg. We will continue lisinopril. We will follow up with primary and Neurology. 5. Diabetic ketoacidosis, recovered, resolved. 6. Hyponatremia secondary to nephrotic, resolved. 7. Multiple embolic cerebrovascular accidents with nephrotic range of proteinuria. The patient has diabetes, possible nephrotic range of proteinuria secondary to diabetes. I am going to send for serology for the patient and we will follow up. Time spent examining the patient [id number], reviewing the data, placing order, discussing with by bedside, discussing with staff member including charge nurse and nursing and hospitalist 35 minutes. MARISSA Voice ID: [id number] Report ID: [id number] DARIO
--- NOTE | 2022-02-01 15:55 | RAD REPORT ---
EXAM DESCRIPTION: MRI - MRA Neck W/Wo Cont - 02/01/2022 3:22 pm CLINICAL HISTORY: CVA, eval vasculature CVA, headache COMPARISON: Brain W/Wo Cont dated 01/31/2022 FINDINGS: Contrast enhance 2D [id number] MR angiography of the neck vessels was performed. Left aortic arch is present. Normal great vessel branching pattern is seen there is irregular narrowi ng of the right proximal internal carotid artery. There is a focal significant stenosis suspected pro ximal right internal carotid artery estimated at 80-90%. The irregular nature of this finding likely indicates underlying irregular plaque with areas of ulceration. Mildly irregular appearance of proximal left internal carotid artery without a significant stenosis. Antegrade flow seen in both vertebral arteries. IMPRESSION: Irregular stenosis is present involving the proximal right internal carotid artery likel y 80-90% name based on NASCET criteria.
[2022-02-01] MEDS: HEPARIN/D5W 25,000 UNIT/500 ML BAG IV SCH (15:58)
[2022-02-01 20:30] LABS: Beta Globulin 24 HR Urine 13 %; Gamma Globulin, 24hr Urine 11 %; Interpretation: REPORT; Protein/Crea Ratio in g 2565 mg/g creat (<=114); Protein/Crea Ratio in mg 2.565 (<=0.114); Urine Alpha-2-Globulins, 24 Hr 9 %; Urine PEP Abn Protein Band1 REPORT; Urine Total Volume 24 Hours 10000 mL
[2022-02-01] MEDS: NICOTINE 21 MG/PAT TD SCH (21:05)
--- NOTE | 2022-02-02 01:12 | PN ---
Subjective: Mr. Wright is doing much better today, more interactive, verbally up and eating while i n ICU, in no acute distress. His recent MRI of the brain identified a 2.5 cm abnormal signal in the right occipital lobe, a 4.2 cm area of abnormal signal in the right frontal lobe, and multiple areas of normal signal in the white matter of the parietal lobe. Additional punctate areas of abnormal sig nal seen in the left parietal lobe. These areas were thought to be consistent with scattered acute r ight cerebral infarction in addition to some punctate acute left cerebral infarction. The magnetic r esonance angiogram of his neck identified irregular stenosis in the proximal right internal carotid e stimated at 80% to 90%. He is actually scheduled to have a 4-vessel angiogram done by the cardiologi . His echocardiogram showed ejection fraction of 55% with mitral annular calcification and regurgi tation, grade 1 diastolic dysfunction with no thrombus reported. Objective: VITAL SIGNS: Blood pressure range 88 to 132 over 42 to 76, pulse 67 to 73, temperature 97 .5, respiratory rate 13 to 16, oxygen saturation 98% on 2 L. GENERAL: Mr. Wright is resting comfortably, eating well and he is in no significant distress. HEENT: He does have some left-sided weakness noted in left face, arm, leg with sensory deficits as we ll in the same distribution. Laboratory Studies: Complete Blood Count, differential is normal. His PTT is 46.8. He was put on h eparin drip, however, since the stroke, this appeared to be from his internal carotid artery. He is now on aspirin, Plavix, high-dose statin, folic acid. He will be followed by Cardiology and may have a cardiac stent done. His chemistries showed sodium of 132, potassium 3.2. Glucose ranged from 158 to 207. Liver function studies are normal. His parathyroid hormone is elevated of 111, his triglyc erides 263, total cholesterol 234, HDL 34, and LDL cholesterol 147, cholesterol is 234, and triglycer ides 263. Assessment: Mr. Wright is a 61-year-old patient with high-grade right proximal internal carotid art zenia stenosis and anterior and posterior right hemispheric strokes, likely thromboembolic. He will gomez ve a 4-vessel angiogram for possible stent placement. Next, he will be on aspirin, Plavix, folic aci d, statin until that is done. More aggressive management of diabetes mellitus and dyslipidemia. Patient will be followed on the hospital likely. HOANG/KATERYNA Voice ID: [id number] Report ID: [id number]
[2022-02-02 05:35] VITALS: BMI 25.9
[2022-02-02 05:43] LABS: Protime INR 1.65
[2022-02-02 05:54] LABS: Potassium 3.4 mmol/L (3.5-5.1)
--- NOTE | 2022-02-02 05:57 | P.PN ---
Date of Service: 02/02/22 Subjective: more awake/alert, oriented x3 following commands feels ok ROS: 10 point ROS unable to be obtained Physical exam GEN: AOx3, NAD CV: Regular rate and rhythm, no edema Pulm: clear bilaterally, non-labored ABD: Soft, non-distended Integumentary: No rashes Neuro: mild left-sided weakness, CN II-XII Grossly intact, no obvious visual field loss Problem List DM2, insulin dependent, with DKA Metabolic encephalopathy secondary to DKA Hypokalemia, Lactic acidosis secondary to DKA / ANA ANA, pre-renal Seizure scattered acute right cerebral infarction (Frontal & Parietal); punctate acute left cerebral infarct (Parietal) h/o prior R basal ganglia infarct (~) R carotid stenosis; h/o b/l carotid stenosis (s/p CEA ~) DKA resolved; s/p insulin drip, weaned to lantus + sliding scale A1c: 12 patient on oral diabetic meds previously, will need insulin on discharge tolerating more PO, adjust insulin bacteruria noted, no pyruia, possible UTI; treated with empiric rocephin; cultu re negative sepsis ruled out lactic acidosis secondary to seizure, DKA, hypovolemia ANA resolved, with IVF; suspect secondary to pre-renal Nephrology following Initial CT head (01/21): old basal ganglia infarct, negative for acute process MRI (01/31): Scattered acute right cerebral infarction. - right frontal and parietal lobes Punctate acute left cerebral infarct - left parietal lobe Old lacunar infarct right internal capsule / right basal ganglia Seizure in ambulance after narcan - possible side effect vs DKA vs decreased threshold with new CVA urine tox positive for benzo only - given by EMS. Patient placed on IV Depakote per neurology initially. Transitioned to oral. coumadin initiated 01/31 and dc'd 02/01 for concern for possible cardioembolic source; neurology recommends aspirin/plavix given MRA findings MRA neck reveals 80-90% proximal carotid stenosis - s/p bilateral CEA in 2014, had 98+% stenosis Cardiology consulted - possible angiogram tomorrow vs next day for further eval discussed with neurology - transfer initiated - to discuss if need for more urgent carotid procedure PT noted L-sided weakness, diminished awareness, visual field defecits, impulsivity echo (02/01) no cardiac thrombus / no vegetation s/p intubation and mechanical ventilation. Patient currently tolerating room air s/p precedex drip, Patient denies alcohol intake. He stated he has not drank alcohol for the past 14 years Mental status significantly improved, but still with slight intermittent confusion Continue oral antihypertensives - avoid significant hypotension Patient prefers to go home on discharge. Family state will have 24/7 supervision and have experience with home health care Code: Full Dispo: Home with home health. ~3-4 days transfer initiated Time Spent Managing Pts Care (In Minutes): 35
[2022-02-02] MEDS: INSULIN -REGULAR HUMAN 50 UNIT/0.5 ML ML SQ SCH ×4 (07:30→20:14)
[2022-02-02] MEDS: GLUCERNA SHAKE 237 ML CAN PO SCH ×2 (09:00→21:00)
[2022-02-02] MEDS ORDERED: ASPIRIN EC 81 MG TAB PO SCH (09:00)
[2022-02-02] MEDS ORDERED: CLOPIDOGREL 75 MG TABLET PO SCH (09:00)
[2022-02-02] MEDS ORDERED: AMLODIPINE 5 MG TAB PO SCH (09:00)
[2022-02-02] MEDS: THIAMINE HCL 100 MG TABLET PO SCH ×2 (09:32→20:02)
[2022-02-02] MEDS: lisinopriL 20 MG TAB PO SCH (09:33)
[2022-02-02] MEDS: INSULIN GLARGINE 100 UNIT/ML SQ SCH (09:34)
[2022-02-02] MEDS ORDERED: POTASSIUM CL 40 MEQ in NA CHLORIDE 0.9% 500 ML IV SCH (10:00)
[2022-02-02] MEDS: DIVALPROEX ER 250 MG TAB PO SCH (12:05)
--- NOTE | 2022-02-02 13:41 | PN ---
Date of Progress Note: 02/02/2022 Subjective: The patient was admitted with altered mental status, DKA, found to have acute kidney injury with nephrotic range of proteinuria. The patient had multiple embolic strokes. The patient was started on heparin and Coumadin. Seen by Neurology. Physical Examination: Vital Signs: When I saw the patient; blood pressure 164/95, pulse of 99, afebrile. Chest: Clear to auscultation. Heart: S1, S2. Regular. Abdomen: Soft, nontender. Extremity: No edema. Neuro: Alert, pleasantly confused. No focality. Laboratory Data: WBC 7, H and H 13.6/40.2. Sodium 135, potassium 3.4, bicarb 31, BUN 23, creatinine 1.3, GFR of 62, calcium 8.4, magnesium of 2. Serum protein electrophoresis is still pending. PTH of 111. TSH 3.5. Current Medications: The patient on include; 1. Aspirin. 2. Nicotine patch. 3. Plavix. 4. Amlodipine 5 mg daily. 5. Lisinopril 20 mg daily. 6. Depakote. 7. Haloperidol. 8. Geodon. 9. Zofran. 10. KCl. Assessment And Plan: 1. Chronic kidney disease, stage 2, normal-sized kidney, nephrotic range of proteinuria, stable, normal volume. I am going to continue current medication. 2. 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 Workup still pending. Given the presence of hypercoagulopathy with embolic stroke, we will follow up workup including the serology. We will follow up with Neurology. The patient apparently needs stenting. We will follow up. 3. Carotid stenosis, needs angioplasty with stenting. We will follow up. Continue Plavix. 4. Hypertension. We will pass these 24 hours, then we will start to have better control on the blood pressure by increasing his amlodipine. 5. Hypokalemia, yesterday received 75. We will place him on maintenance and we will give another 75 and we will monitor. 6. Hypomagnesemia, status post supplement resolved. 7. Acidosis secondary to diabetic ketoacidosis, resolved. Off bicarb drip. 8. Hypernatremia, resolved. Time spent examining the patient [id number], reviewing the data, placing order, discussing with by bedside, discussing with staff member including charge nurse and nursing and hospitalist 35 minutes. MARISSA Voice ID: [id number] Report ID: [id number] [id number]
[2022-02-02] MEDS: NICOTINE 21 MG/PAT TD SCH (20:03)
[2022-02-02 20:56] VITALS: O2SAT 91
--- NOTE | 2022-02-03 01:04 | P.DS ---
Admission Date: 01/22/22 Discharge Date: 02/03/22 Disposition: [facility] Discharge Condition: FAIR Reason for Admission: DKA Consultations: Neurology Dr. olmstead Pulmonolgy Dr. Keyes Nephrology Dr. Espinoza Procedures: Problem List DM2, insulin dependent, with DKA Metabolic encephalopathy secondary to DKA Hypokalemia, Lactic acidosis secondary to DKA / ANA ANA, pre-renal Seizure scattered acute right cerebral infarction (Frontal & Parietal); punctate acute left cerebral infarct (Parietal) h/o prior R basal ganglia infarct (~[id number]) R carotid stenosis; h/o b/l carotid stenosis (s/p CEA ~[id number]) NECK MRA 02/01/22 Left aortic arch is present. Normal great vessel branching pattern is seen there is irregular narrowing of the right proximal internal carotid artery. There is a focal significant stenosis suspected proximal right internal carotid artery estimated at 80-90%. The irregular nature of this finding likely indicates underlying irregular plaque with areas of ulceration. Mildly irregular appearance of proximal left internal carotid artery without a significant stenosis. Antegrade flow seen in both vertebral arteries. IMPRESSION: Irregular stenosis is present involving the proximal right internal carotid artery likely 80-90% name based on NASCET criteria. Brain MRI 01/31/22 TECHNIQUE: Axial, sagittal, and coronal magnetic images of the brain were obtained. 20 cc MultiHance administered intravenously FINDINGS: Diffusion-weighted/ADC mapping demonstrate 2.5 centimeter area of abnormal signal right occipital lobe. 4.2 centimeter area of abnormal signal right frontal lobe. Multiple small areas of abnormal signal within the white matter right frontal and right parietal lobes. Punctate area of abnormal signal deep white matter left parietal lobe. All of these areas represent infarcts. Some of these areas demonstrate enhancement. Ventricles are normal caliber Old lacunar infarct right internal capsule/right basal ganglia An extra-axial fluid collection is not noted. Fluid within the sinuses/mastoids is not seen IMPRESSION: Scattered acute right cerebral infarction. Punctate acute left cerebral infarct Further imaging with CT angiogram/magnetic resonance neck angiogram may be helpful CXR 01/25/22 FINDINGS: Portable technique limits examination quality. Tip of the endotracheal tube is at the level of the aortic arch. Enteric tube coils in the stomach. Right-sided venous catheter has tip just entering the right atrium. Bilateral pulmonary opacities appear mildly improved since yesterday's study. The heart is moderately enlarged. IMPRESSION: Mild improvement in lung aeration since yesterday's study. Renal US 01/25/22 FINDINGS: Both kidneys are normal in size, shape and echotexture. The right kidney measures 11.9 x 6.9 x 4.7 cm. No hydronephrosis, focal mass or perinephric fluid. The left kidney measures 11.2 x 7.2 x 4.8 cm. No hydronephrosis, focal mass or perinephric fluid. The urinary bladder is incompletely distended without gross abnormality seen. IMPRESSION: Unremarkable renal sonogram. CT head 01/21/22 FINDINGS: Brain: No acute intracranial hemorrhage. No extra-axial collection. No mass effect or herniation. Prior right basal ganglia lacunar infarct Prominence of the sulci and cisterns. Confluent periventricular and subcortical white matter hypodensity is noted. Vascular calcifications. Ventricles: Within normal limits in size. Globes and orbits: No acute abnormality. Bones: No acute osseous finding Paranasal sinuses: Paranasal sinuses are clear. Mastoid air cells: Well pneumatized. Soft tissues: Within normal limits IMPRESSION: 1. No acute intracranial hemorrhage, hydrocephalus or herniation. 2. Cerebral volume loss, chronic small vessel ischemic changes and prior right basal ganglia lacunar infarct. Consider MRI brain for further evaluation. Brief History of Present Illness: 61-year-old male with history of diabetes mellitus type [id number], hypertension was at home with his family, consumed some chocolate and soda's and went to lay down, his family noticed that he was sleeping in a weird position and try to wake him up, they are unable to wake him up they checked his blood sugar and noted that is very high. They called EMS upon EMS arrival patient did wake up he became combative followed by having a seizure. He was transported to the emergency department for further evaluation upon arrival to the emergency department patient was unresponsive with a GCS of 3 and elevated blood sugar he was intubated and a central line was placed his ABG initially showed pH of 7.25 PCO2 45.4 PO2 of 131 HCO3 of 19.3. He had a CT scan of his head which was negative for any acute findings he did not have any more seizure-like activity in the emergency department his labs did demonstrate beta ketoacidosis as well as hypokalemia, acute kidney injury, lactic acidosis, bacteriuria. At this time patient is sedated, on ventilator, on insulin drip after receiving multiple doses of supplemental potassium. ED provider wishes to admit to the ICU for further evaluation and management of DKA, hypokalemia, UTI. Hospital Course: Patient was admitted with DKA/coma treated with insulin drip and on ventilator, after patient was weaned off ventilator he continued to have altered mental status as well as some apparent left-sided deficits and MRI was obtained on 01/31/2022 which revealed scattered acute right cerebral infarction, right frontal and parietal lobes with punctate acute left cerebral infarction left parietal lobe. Patient had history of carotid endarterectomy many years previously, he had an MRI of his neck here which revealed 80 to 90% proximal carotid stenosis, cardiology and neurology were consulted here who recommended vascular consultation with possible intervention at tertiary facility. Patient was accepted to [facility] for further evaluation from vascular regarding his acute CVA with severe carotid stenosis. DKA resolved; s/p insulin drip, weaned to lantus + sliding scale A1c: 12 patient on oral diabetic meds previously, will need insulin on discharge MRI (01/31): Scattered acute right cerebral infarction. - right frontal and parietal lobes Punctate acute left cerebral infarct - left parietal lobe Old lacunar infarct right internal capsule / right basal ganglia Seizure in ambulance after narcan - possible side effect vs DKA vs decreased threshold with new CVA Patient placed on IV Depakote per neurology initially. Transitioned to oral. coumadin initiated 01/31 and dc'd 02/01 for concern for possible cardioembolic source; neurology recommends aspirin/plavix given MRA findings MRA neck reveals 80-90% proximal carotid stenosis - s/p bilateral CEA in 2013- 2014, had 98+% stenosis Vital Signs/Physical Exam: Temp Pulse Resp BP Pulse Ox 97.1 F 84 19 183/100 H 95 02/02/22 20:00 02/03/22 00:00 02/03/22 00:00 02/03/22 00:00 02/03/22 00:00 General: Alert, In no apparent distress, Oriented x3, Obese HEENT: Atraumatic, PERRLA, EOMI Neck: Supple, JVD not distended Respiratory: Clear to auscultation bilaterally, Normal air movement Cardiovascular: Regular rate/rhythm, Normal S1 S2 Gastrointestinal: Normal bowel sounds, No tenderness Musculoskeletal: No tenderness Integumentary: No rashes Neurological: Normal speech, Normal tone, Sensation intact, Normal affect Laboratory Data at Discharge: WBC 7.0 K/uL (4.3-10.9) D 02/01/22 04:57 Hgb 13.6 g/dL (13.6-17.9) 02/01/22 04:57 Hct 40.2 % (39.6-49.0) 02/01/22 04:57 Plt Count 240 K/uL (152-406) 02/01/22 04:57 PT 18.3 SECONDS (9.5-12.5) H 02/02/22 05:05 INR 1.65 02/02/22 05:05 APTT Cancelled 02/01/22 19:30 Sodium 135 mmol/L (136-145) L 02/02/22 05:05 Potassium 3.4 mmol/L (3.5-5.1) L 02/02/22 05:05 BUN 23 mg/dL (7-18) H 02/02/22 05:05 Creatinine 1.30 mg/dL (0.55-1.3) 02/02/22 05:05 Glucose 132 mg/dL (74-106) H 02/02/22 05:05 Phosphorus 4.0 mg/dL (2.5-4.9) 01/30/22 04:28 Magnesium 2.0 mg/dL (1.8-2.4) 02/02/22 05:05 Total Bilirubin 0.3 mg/dL (0.2-1.0) 02/01/22 04:57 AST 24 U/L (15-37) 02/01/22 04:57 ALT 32 U/L (12-78) 02/01/22 04:57 Alkaline Phosphatase 111 U/L (45-117) 02/01/22 04:57 Triglycerides 263 mg/dL (<150) H 01/22/22 04:25 Cholesterol 234 mg/dL (<200) H 01/22/22 04:25 HDL Cholesterol 34 mg/dL (40-60) L 01/22/22 04:25 Cholesterol/HDL Ratio 6.88 01/22/22 04:25 Home Medications: Amlodipine [Norvasc] 5 mg PO DAILY 01/22/22 Atorvastatin Calcium 40 mg PO DAILY 01/22/22 Dapagliflozin/Metformin HCl [Xigduo Xr 10 mg-1,000 mg Tab] 1 each PO DAILY 01/01 09/21 Gabapentin 200 mg PO BID 01/22/22 Glimepiride [Amaryl] 4 mg PO DAILY 01/22/22 Levothyroxine Sodium [Levothyroxine] 50 mcg PO DAILY 01/22/22 Losartan Potassium 100 mg PO DAILY 01/22/22 Naproxen [Naprosyn] 500 mg PO BID 01/22/22 Tramadol HCl [Ultram] 50 mg PO BID 01/22/22 cilostazoL [Cilostazol] 100 mg PO BID 01/22/22 Physician Discharge Instructions: Continue with care at [facility] Diet: ADA Activity: Fall precautions Followup: Unknown,U [Primary Care Provider] - Time spent managing pt's care (in minutes): 55
[2022-02-03 01:37] VITALS: TEMP 97.5
[2022-02-03] MEDS: HYDRALAZINE HCL 20 MG/ML VIAL IV PRN (01:50)
[2022-02-03 04:38] VITALS: BP 132/75
[2022-02-03] MEDS ORDERED: POTASSIUM 25 MEQ EFFERV TAB PO SCH (09:00)
--- NOTE | 2022-02-04 13:03 | CON ---
Date of Consultation: 02/02/2022 Reason For Consultation: Abnormal carotid MRA with 80-90 percent right internal carotid artery steno sis. History Of Present Illness: Mr. Wright is 61, was admitted on 01/22/2022 with altered mental status , seizures and DKA. He was receiving Coumadin. INR is 1.65. MRA of his carotid showed an 80-90 per cent right internal carotid artery stenosis. Echocardiogram showed ejection fraction of 55% with chico e diastolic dysfunction. The patient remains on Coumadin, Norvasc, heparin, and lisinopril. He does not have any cardiac complaints. Past Medical History: Include diabetes, hypertension. Has had carotid surgery in the past. Medications: At home include Norvasc, amlodipine, metformin, Neurontin, Amaryl, Synthroid, losartan. He also takes Naprosyn and Ultram. Allergies: NONE. Review of Systems: Noncontributory. Social History: Noncontributory. Family History: Noncontributory. Physical Examination: Vital Signs: Were stable with blood pressure 112/77. He was afebrile, sinus rhythm. HEENT: Negative. Neck: Supple. No bruit on the left side. He had a bruit on the right side. Chest: Clear. Cardiac: Revealed a regular rhythm and rate with S4, gallops. No murmurs or rubs. Abdomen: Benign. Extremities: Revealed no clubbing, cyanosis, or edema. Diagnostic Data: Values were stated above. Impression And Plan: The patient with hypertension, diabetes, dyslipidemia, DKA, possible seizure, a ltered mental status, elevated INR. I think Coumadin should be held once the INR is below 1.5. If t he patient stays in the hospital, I would recommend to do a carotid angiogram. It sounds like he has had stroke recently. He would not be a candidate for surgery at least for 6 weeks, but a carotid an giogram may be reasonable. I will discuss the case further with Dr. Mace. There may be a plan to t ransfer him to a different facility and I agree with that. I certainly would not wait for the jas d angiogram before his transfer. SANDRA/KATERYNA Voice ID: [id number] Report ID: [id number]
[2022-02-05 06:31] LABS: Hepatitis C Virus RNA (PCR)log <1.18 log IU/mL
[2022-02-07 12:11] LABS: HIV AG/AB 4TH GEN Non-reactive (Non-reactive)
[2022-02-07 17:12] LABS: Albumin, (SPE) 3.3 g/dL (3.8-4.8); Alpha-1-Globulins 0.4 g/dL (0.2-0.3); Alpha-2-Globulins 0.9 g/dL (0.5-0.9); Gamma Globulins 0.8 g/dL (0.8-1.7); INTERPRETATION REPORT
[2022-02-09 04:22] LABS: HBsAG Nonreactive (Nonreactive)
== END 2022-02-03 04:30 | disposition short-term general hospital (02) | DRG 637 ==
LOC: ER 23:19 → 3RD-ICU 01-22 02:23
PROVIDERS: ADMIT Hospitalist; ATTEND Hospitalist
PROC: 5A1945Z Respiratory Ventilation, 24-96 Consecutive Hours (ICD-10-PCS; principal; 2022-01-21)
PROC: 0BH17EZ Insertion of Endotracheal Airway into Trachea, Via Natural or Artificial Opening (ICD-10-PCS; 2022-01-21)
PROC: 02H633Z Insertion of Infusion Device into Right Atrium, Percutaneous Approach (ICD-10-PCS; 2022-01-22)
DX: E11.11 Type 2 diabetes mellitus with ketoacidosis with coma (principal); J96.00 Acute respiratory failure, unspecified whether with hypoxia or hypercapnia; G93.41 Metabolic encephalopathy; I63.131 Cerebral infarction due to embolism of right carotid artery; N39.0 Urinary tract infection, site not specified; E87.1 Hypo-osmolality and hyponatremia; N17.9 Acute kidney failure, unspecified; E87.0 Hyperosmolality and hypernatremia; E87.6 Hypokalemia; R56.9 Unspecified convulsions; Z20.822 Contact with and (suspected) exposure to COVID-19; E88.81 Metabolic syndrome and other insulin resistance; R31.9 Hematuria, unspecified; E66.9 Obesity, unspecified; Z68.26 Body mass index [BMI] 26.0-26.9, adult; R41.0 Disorientation, unspecified; E83.42 Hypomagnesemia; R00.1 Bradycardia, unspecified; R45.1 Restlessness and agitation; D64.9 Anemia, unspecified; E11.22 Type 2 diabetes mellitus with diabetic chronic kidney disease; I12.9 Hypertensive chronic kidney disease with stage 1 through stage 4 chronic kidney disease, or unspecified chronic kidney disease; N18.2 Chronic kidney disease, stage 2 (mild); Z78.1 Physical restraint status
CPT/HCPCS: 31500; 36415; 51702; 70450; 70549; 70553; 71045; 76770; 80048; 80053; 80061; 80069; 80307; 81001; 81003; 81015; 82140; 82553; 82570; 82805; 82947; 83036; 83520; 83605; 83735; 83880; 83970; 84100; 84132; 84145; 84156; 84165; 84166; 84443; 84484; 85025; 85610; 85730; 86021; 86038; 86160; 86225; 86317; 86704; 86706; 87040; 87086; 87088; 87340; 87389; 87522; 92610; 93005; 93306; 94002; 94003; 95816; 97112; 97116; 97161; 97530; 99291; 99292; A9577; J0330; J0360; J1170; J1630; J1644; J1650; J1815; J1940; J2310; J2704; J3010; J3411; J3475; J3480; J3486; J7030; J7040; J7050; J7799; U0003

== ENCOUNTER 2022-02-19 13:00 | Emergency (ER) | payer OTHER ==
--- OUTSIDE RECORDS SUMMARY | 2022-02-19 13:04 | XMS REPORT | Continuity of Care Document ---
:1960 Author Organization [facility] t Address [address] [place] [address] Care Team Providers Name Role Phone Maximilian Griffin Attending Clinician Unavailable Maximilian Griffin Admitting Clinician Unavailable Payers Payer Name Policy Type Policy Number Effective Date Expiration Date S ource Problems This patient has no known problems. Allergies, Adverse Reactions, Alerts Allergy Allergy Status Severity Reaction(s) Onset Inactive Treating Comm ents Source Name Type Date Date Clinician No Known DA Active U UNKNOWN [facility] 00:00: [address] Not DA Active U UNKNOWN [facility]03 [facility]. 00:00: [place] [facility] No Known DA Active U [facility] 12[facility]30 [facility] 00:00: [address] Not DA Active U [facility] 12[facility]30 [facility] 80. 00:00: [place] [facility] [place] Medications This patient has no known medications. Procedures Procedure Date / Time Performed Performing Clinician Liliana russell [id number] 2022-02-11 [facility] [id number] 2022-02-11 00:00:00 [facility] [id number] 2022-02-11 00:00:[address] [facility] [id number] 2022-02-11 00:00:00 MARIO ALBERTO [facility] [id number] 2022-02-11 00:00:00 [facility] AL[facility]ERTO [facility] [id number] 2022-02-11 00:00:00 [facility] AL[facility]ERTO [facility] [id number] 2022-02-11 00:00:00 [facility] AL[facility]ERT[facility] [id number] 2022-02[facility]10 [facility] End Encounter Admission Attending Care Care Encounter Source Date/Time Date/Time Type Type Clinicians Facility Department ID 2022-02-03 Inpatient MALVIN SanchesWU INTE [id number] [facility] 08:18:00 Nioti [id number] [facility] 2022-02-03 2022-02-16 Inpatient MALVIN SanchesWU INTE [id number] [facility] 08:18:00 16:00:00 Nioti 13 [facility] Results Test Description Test Time Test Comments Results Result Comments Source GLUCOSE BEDSIDE TESTING 2022-02-15 20:04:00 Test Item Value Reference Range Interpretation Comme nts GLUCOSE BEDSIDE TESTING (test code = GLUBED) 271 MG/DL 60-99 H GLUCOSE BEDSIDE [id number] 15:55:00 Test Item Value Reference Range Interpretation Comments GLUCOSE BEDSIDE TESTING (test code 241 MG/DL 60-99 H = GLUBED) GLUCOSE BEDSIDE [id number] 11:40:00 Test Item Value Reference Range Interpretation Comments GLUCOSE BEDSIDE TESTING (test code 305 MG/DL 60-99 HH = GLUBED) GLUCOSE BEDSIDE [id number] 07:51:00 Test Item Value Reference Range Interpretation Comments GLUCOSE BEDSIDE TESTING (test code 202 MG/DL 60-99 H = GLUBED) GLUCOSE BEDSIDE [id number] 06:13:00 Test Item Value Reference Range Interpretation Comments GLUCOSE BEDSIDE TESTING (test code 192 MG/DL 60-99 H = GLUBED) - MRI BRAIN W/O [id number] 21:11:[address] [facility] 1960 Sex: M Patient Name: NOY LEZAMA Unit No: [id number] EXAMS: CPT CODE: [id number] MRI BRAIN W/O CONTRAST 92799 HISTORY: Left-sided weakness Location: C3 TECHNIQUE: Multiplanar multisequence MR images of the brain were obtained without intravenous contrast. Comparison the prior MRI dated 02/04/2022. FINDINGS: There is nointracranial hemorrhage, mass or mass effect. The ventricular system and sulci are prominent compatible cerebral volume loss.. Multifocal areas of restricted diffusion are demonstrated in right MCA distribution most confluent in the frontal lobe near the vertex with additional areas in deep watershed distribution. Compared to prior examination new areas of infarction are present in posterior right fr ontal lobe as well as anterior inferior frontal lobe and deep watershed distribution. Microvascular chronic white matter ischemic changes are noted in the periventricular regions bilaterally. Appropriate flow-voids are present at the skull base. The visualized orbits and sinuses show no significant abn ormalities. IMPRESSION: 1. Areas of acute infarction seen on prior study dated 02/04/2022 are again noted with multiple areas of new acute infarction in the right MCA distribution and watershed distribution on the right. 2. No developing intracranial hemorrhage. No hydrocephalus. at 2110 Reported and signed by: Brady Puentes MD CC: Maximilian Cardona; Shameka Thomson MD Technologist: Sho Foster(CT)(MRI) Transcrpt Date/Tm/Trnsp: 02/14/2022 (2110) [id number] Orig Print D/T: S: 02/14/2022 (2113) [facility] NAME: NOY LEZAMA [id number] PHYS: [id number] - Shameka Thomson MD [address] [address] : 1960 AGE: 61 SEX: M LOC: KETTY A PHONE #: [phone] EXAM DATE: 02/14/2022 STATUS: ADM IN FAX #: [phone] RADIOLOGY NO: PAGE 1 Signed ReportGLUCOSE BEDSIDE [id number] 19:54:00 Test Item Value Reference Range Interpretation Comments GLUCOSE BEDSIDE TESTING (test code 301 MG/DL 60-99 HH = GLUBED) [id number] 17:47:00 Test Item Value Reference Range Interpretation Comments SURGICAL (test code = SR) R UN DATE: 02/14/22 [facility] PAGE 1 RUN TIME: 4937 Specimen Inquiry RUN USER: INTERFACE P ATIENT: NOY LEZAMA LOC: DIANE #: [id number] AGE/SX: 61/M ROOM: KETTY RE02/03/22REG DR: Maximilian Griffin MD : [birth year] BED: A DIS: STATUS: ADM IN TLOC: SPEC #: [id number]:AVILES:[id number] RECD: 02/11/22 STATUS: MARK ANTHONY LEVINE #: [id number] ERICA: 02/11/[address]: Kevin Juarez MD ENTERED: 02/11/22 SP TYPE: SURGICAL OTHR DR: No Primary or Family Physician Self Referred Karle Burgess MD, Ryan DO R3 Varun Treviño MD R3 Brady Lerma MD, Venkatara MDORDERED: 35410, 80484, ANATOMIC SPEC, SPECIMEN TRACK COPIES TO: No Primary or Family Physician Self Referred Karel Burgess MD [address] [place] [address] [place] [address] Royce Maguire DO R3 [address] [place] [address] [place] [address] [place] [address] Varun Treviño MD R3 [address] [place] [id number] [place] [address] [facility] [address] [place] [address] [place] [address] [facility] [address] [place] [address] PROCEDURES: 07404 (02/11/22) 63629 (02/14/22-1257) SPECIMEN TRACK (02/11/22) CONTINUED ON NEXT PAGE R UN DATE: 02/14/22 [facility] - LAB PAGE 2 RUN TIME: 510 Specimen Inquiry RUN USER: INTERFACE S PEC #: [id number]:AVILES:[id number] PATIENT: NOY LEZAMA #[id number] (Continued) TISSUES: A. PLAQUE ATHEROMATOUS/FIBROUS/FIBROFATTY - RIGHT CAROTID PLAQUE PATCH FINAL DIAGNOSIS Artery, right carotid, plaque, endarterectomy:- Atherosclerotic plaque, partly calcified Comment: Negative for inflammation. Suggest clinical correlation. GROSS DESCRIPTION Right carotid plaque and and patch. Received are multiple pieces of slightly calcifiedplaque and a segment of graft like material measuring 4.5 x 1 x 0.2 cm. Sections eachsubmitted for decalcification as A1. Technical component performed at [facility] , [place] [address] Unless gross only, the diagnosis is based upon microscopic examination.Immunohistochemistr y: This test was developed and its performancecharacteristics determined by this laboratory. It has not been approved nordoes it need approval by the [place] FDA. Appropriate positive and negative controlsare reviewed and judged to be acceptable. This laboratory is certified undert Clinical Laboratory Improvement Amendments (CLIA-88) as qualified toperform high complexity clinical laboratory testing. MICROSCOPIC DESCRIPTION Microscopic examination is performed on all specimens and the findings are incorporatedinto the final diagnosis. Please see diagnosis for the findings. -------- Signed SIGNATURE ON FILE Clark Loera 02/14/22 1747 END OF REPORT GLUCOSE BEDSIDE [id number] 17:04:00 Test Item Value Reference Range Interpretation Comments GLUCOSE BEDSIDE TESTING (test code 175 MG/DL 60-99 H = GLUBED) GLUCOSE BEDSIDE [id number] 10:58:00 Test Item Value Reference Range Interpretation Comments GLUCOSE BEDSIDE TESTING (test code 280 MG/DL 60-99 H = GLUBED) GLUCOSE BEDSIDE [id number] 08:05:00 Test Item Value Reference Range Interpretation Comments GLUCOSE BEDSIDE TESTING (test code 294 MG/DL 60-99 H = GLUBED) GLUCOSE BEDSIDE [id number] 20:16:00 Test Item Value Reference Range Interpretation Comments GLUCOSE BEDSIDE TESTING (test code 291 MG/DL 60-99 H = GLUBED) GLUCOSE BEDSIDE [id number] 16:15:00 Test Item Value Reference Range Interpretation Comments GLUCOSE BEDSIDE TESTING (test code 146 MG/DL 60-99 H = GLUBED) GLUCOSE BEDSIDE [id number] 16:03:00 Test Item Value Reference Range Interpretation Comments GLUCOSE BEDSIDE TESTING (test code 244 MG/DL 60-99 H = GLUBED) - CT HEAD/BRAIN W/O [id number] 10:21:[address] [facility] : 1960 Sex: M Patient Name: NOY LEZAMA Unit No: [id number] EXAMS: CPT CODE: [id number] CT HEAD/BRAIN W/O CONT 49708 EXAM: - CT HEAD/BRAIN W/O CONT Location code:C3 HISTORY: 61 years - old Male with S/P FALL TECHNIQUE: AxialCT images from the skull base to the vertex without intravenous contrast. Coronal and sagittal reformatted images were created from the data set. One or more of the following dose reduction techniques were used: Automated exposure control, adjustment of the mA and/or kV according to patient size, and/or utilization of iterative reconstruction technique. COMPARISON: 02/04/2022 FINDINGS: Intracranial: Diminished attenuation compatible with areas of recent infarction are noted in the right cerebral hemisphere with largest area seen in the right frontal lobe and right occipital lobe as noted on prior MRINo intracranial hemorrhage, mass or mass effect. The ventricular system and sulci are prominent compatible cerebral volume loss. There is mild diminished attenuation involving the periventricular and antonio bcortical white matter compatible with mild microvascular chronic ischemic changes. The density in the larger dural sinuses is grossly normal. Bones: There is no evidence of acute displaced calvarial fracture. Sinuses: The visualized portions of the paranasal sinuses demonstrate no significant opacification.The mastoid air cells are clear. Orbits/Soft Tissues: The visualized orbits show no significant abnormalities. The visualized soft tissues are unremarkable. IMPRESSION: 1. Multifocal areas of recent to subacute infarction in the right correlating with areas of acute infarction seen on prior MRI dated 02/04/2022. 2. No intracranial hemorrhage or other acute intracranial abnormality. at 1021 Reported and signed by: Brady Puentes MD [facility] NAME: NOY LEZAMA [address] PHYS: [place] [address] : 1960 AGE: 61 SEX: M LOC: Z.SI06 A PHONE #: [phone] EXAM DATE: 02/13/2022 ST ATUS: ADM IN FAX #: [phone] RAD #: D/C DT PAGE 1 Signed Report (CONTINUED) Patient Name: NOY LEZAMA Unit No: [id number] EXAMS: CPT CODE: [id number] CT HEAD/BRAIN W/O CONT 54903 (Continued) CC: Kevin Juarez Technologist: Barrington Schneider (RT) (R) CTDI: DLP: Trnscrpt: 02/13/2022 (1021) t.SDR.RXC2 [facility] NAME: NOY LEZAMA PHYS: [place] [address] : 1960 AGE: 61 SEX: M LOC: Z.SI06 A PHONE #: [phone] EXAM DATE: 02/13/2022 STATUS: ADM IN FAX #: [phone] RAD #: D/C DT PAGE 2 Signed Report Patient Name: NOY LEZAMA Unit No: [id number] EXAMS: CPT CODE: [id number] CT HEAD/BRAIN W/O CONT 84329 (Continued) Orig Print D/T: S: 02/13/2022 (1024) [facility] NAME: NOY LEZAMA PHYS: [place] [address] : 1960 AGE: 61 SEX: M LOC: Z.SI06 A PHONE #:[phone] EXAM DATE: 02/13/2022 STATUS: ADM IN FAX #: [phone] RAD #: D/C DT PAGE 3 Signed ReportBASIC METABOLIC [id number] 08:37:00 Test Item Value Reference Range Interpretation Comments SODIUM (test code = 133 MMOL/L 137-145 L NA) POTASSIUM (test code = 4.4 MMOL/L 3.5-5.1 N K) CHLORIDE (test code = 99 MMOL/L 98-107 N CL) CARBON DIOXIDE (test 26 MMOL/L 22-30 N code = CO2) GLUCOSE (test code = 205 MG/DL 74-106 H GLU) BLOOD UREA NITROGEN 17 MG/DL 9-20 N (test code = BUN) GLOMERULAR FILTRATION > 60 Report ing units: RATE (test code = GFR) ml/mi n/1.73 m2 (Modified MDRD Formula)Referen ce Range: > or = 6 0 ml/min/1.73 m2 CREATININE (test code 1.00 MG/DL 0.66-1.25 N = CREAT) CALCIUM (test code = 8.8 MG/DL 8.4-10.2 N CA) "TO BE COLLECTED BY NURSE"NOTIFIED RN: Yayo 02/13/22 AT 0806 BY Nikko Freitas CBC W/AUTO [id number] 08:23:00 Test Item Value Reference Range Interpretation Comments WHITE BLOOD CELL (test code = 12.1 K/MM3 3.8-9.8 H WBC) RED BLOOD CELL (test code = 3.46 M/MM3 3.95-5.67 L RBC) HEMOGLOBIN (test code = HGB) 10.5 G/DL 12.4-16.7 L HEMATOCRIT (test code = HCT) 32.8 % 35.9-49.5 L MEAN CELL VOLUME (test code = 95 fL 81.7-96.1 N MCV) MEAN CELL HGB (test code = MCH) 30.3 pg 27.6-33.2 N MEAN CELL HGB CONCETRATION 32.0 % 32.9-35.5 L (test code = MCHC) RED CELL DISTRIBUTION WIDTH 13.3 % 12.1-15.2 N (test code = RDW) PLATELET COUNT (test code = 344 K/MM3 129-368 N PLT) MEAN PLATELET VOLUME (test code 9.5 fl 7.4-10.4 N = MPV) NEUTROPHIL % (test code = NT%) 76.6 % 43-75 H IMMATURE GRANULOCYTE % (test 0.5 % 0.0-2.0 N code = IG%) LYMPHOCYTE % (test code = LY%) 11.9 % 14-44 L MONOCYTE % (test code = MO%) 8.5 % 4-13 N EOSINOPHIL % (test code = EO%) 1.7 % 0-6 N BASOPHIL % (test code = BA%) 0.8 % 0-2 N NUCLEATED RBC % (test code = 0.0 % 0-1.0 N NRBC%) NEUTROPHIL # (test code = NT#) 9.26 K/mm3 2.0-7.6 H IMMATURE GRANULOCYTE # (test 0.06 x10 3/uL 0-0.03 H code = IG#) LYMPHOCYTE # (test code = LY#) 1.44 K/mm3 1.0-3.8 N MONOCYTE # (test code = MO#) 1.03 K/mm3 0.1-0.8 H EOSINOPHIL # (test code = EO#) 0.20 K/mm3 0.0-0.2 N BASOPHIL # (test code = BA#) 0.10 K/mm3 0.0-0.2 N NUCLEATED RBC # (test code = 0.00 K/mm3 0.0-0.1 N NRBC#) "TO BE COLLECTED BY NURSE"NOTIFIED RN: Yayo 02/13/22 AT 0806 BY Nikko Freitas GLUCOSE BEDSIDE [id number] 07:30:00 Test Item Value Reference Range Interpretation Comments GLUCOSE BEDSIDE TESTING (test code 244 MG/DL 60-99 H = GLUBED) GLUCOSE BEDSIDE [id number] 20:38:00 Test Item Value Reference Range Interpretation Comments GLUCOSE BEDSIDE TESTING (test code 262 MG/DL 60-99 H = GLUBED) GLUCOSE BEDSIDE [id number] 17:18:00 Test Item Value Reference Range Interpretation Comments GLUCOSE BEDSIDE TESTING (test code 194 MG/DL 60-99 H = GLUBED) GLUCOSE BEDSIDE [id number] 13:46:00 Test Item Value Reference Range Interpretation Comments GLUCOSE BEDSIDE TESTING (test code 324 MG/DL 60-99 HH = GLUBED) - XR CHEST [id number] 08:14:[address] [facility] : 1960 Sex: M Patient Name: TEJANOY Unit No: [id number] EXAMS: CPT CODE: [id number] XR CHEST 1V 04180 STUDY: Chest radiograph HISTORY: Line placement COMPARISON: 02/11/2022 TECHNIQUE: Frontal view of the chest. LOCATION: H19 FINDINGS: A left subclavian line tip projects over the left brachiocephalic vein/SVC confluence. The cardiac silhouette is stable in size. There is significant improvement in pulmonary vascular congestion. There is no large pleural effusion or discernible pneumothorax. IMPRESSION: Significantly improved pulmonary vascular congestion. at 0814 Reported and signed by: Brady Marte MD CC: Kevin Juarez Technologist: Wilian Moise, RT(R) Transcrpt Date/Tm/Trnsp: 02/12/2022 (813) [id number] Orig Print D/T: S: 02/12/2022 (816) [facility] NAME: NOY LEZAMA [id number] PHYS: [place] [address] : 1960 AGE: 61 SEX: M LOC: Z.SI06 A PHONE #: [phone] EXAM DATE: 02/12/2022 STATUS: ADM IN FAX #: [phone] RADIOLOGY NO: PAGE 1 Signed ReportGLUCOSE BEDSIDE [id number] 06:49:00 Test Item Value Reference Range Interpretation Comments GLUCOSE BEDSIDE TESTING (test code 253 MG/DL 60-99 H = GLUBED) BASIC METABOLIC [id number] 04:44:00 Test Item Value Reference Range Interpretation Comments SODIUM (test code = 131 MMOL/L 137-145 L NA) POTASSIUM (test code = 4.3 MMOL/L 3.5-5.1 N K) CHLORIDE (test code = 101 MMOL/L 98-107 N CL) CARBON DIOXIDE (test 24 MMOL/L 22-30 N code = CO2) ANION GAP (test code = 10 MMOL/L 14-24 L GAP) GLUCOSE (test code = 238 MG/DL 74-106 H GLU) BLOOD UREA NITROGEN 14 MG/DL 9-20 N (test code = BUN) GLOMERULAR FILTRATION > 60 Report ing units: RATE (test code = GFR) ml/mi n/1.73 m2 (Modified MDRD Formula)Referen ce Range: > or = 6 0 ml/min/1.73 m2 CREATININE (test code 0.80 MG/DL 0.66-1.25 N = CREAT) CALCIUM (test code = 8.9 MG/DL 8.4-10.2 N CA) [id number] 04:44:00 Test Item Value Reference Range Interpretation Comments MAGNESIUM (test code = MAG) 1.6 MG/DL 1.6-2.3 CBC W/AUTO [id number] 04:24:00 Test Item Value Reference Range Interpretation Comments WHITE BLOOD CELL (test code = 13.8 K/MM3 3.8-9.8 H WBC) RED BLOOD CELL (test code = 3.68 M/MM3 3.95-5.67 L RBC) HEMOGLOBIN (test code = HGB) 11.1 G/DL 12.4-16.7 L HEMATOCRIT (test code = HCT) 33.8 % 35.9-49.5 L MEAN CELL VOLUME (test code = 92 fL 81.7-96.1 N MCV) MEAN CELL HGB (test code = MCH) 30.2 pg 27.6-33.2 N MEAN CELL HGB CONCETRATION 32.8 % 32.9-35.5 L (test code = MCHC) RED CELL DISTRIBUTION WIDTH 12.8 % 12.1-15.2 N (test code = RDW) PLATELET COUNT (test code = 337 K/MM3 129-368 N PLT) MEAN PLATELET VOLUME (test code 9.3 fl 7.4-10.4 N = MPV) NEUTROPHIL % (test code = NT%) 82.3 % 43-75 H IMMATURE GRANULOCYTE % (test 0.4 % 0.0-2.0 N code = IG%) LYMPHOCYTE % (test code = LY%) 7.0 % 14-44 L MONOCYTE % (test code = MO%) 9.8 % 4-13 N EOSINOPHIL % (test code = EO%) 0.1 % 0-6 N BASOPHIL % (test code = BA%) 0.4 % 0-2 N NUCLEATED RBC % (test code = 0.0 % 0-1.0 N NRBC%) NEUTROPHIL # (test code = NT#) 11.35 K/mm3 2.0-7.6 H IMMATURE GRANULOCYTE # (test 0.06 x10 3/uL 0-0.03 H code = IG#) LYMPHOCYTE # (test code = LY#) 0.97 K/mm3 1.0-3.8 L MONOCYTE # (test code = MO#) 1.35 K/mm3 0.1-0.8 H EOSINOPHIL # (test code = EO#) 0.02 K/mm3 0.0-0.2 N BASOPHIL # (test code = BA#) 0.05 K/mm3 0.0-0.2 N NUCLEATED RBC # (test code = 0.00 K/mm3 0.0-0.1 N NRBC#) GLUCOSE BEDSIDE [id number] 20:05:00 Test Item Value Reference Range Interpretation Comments GLUCOSE BEDSIDE TESTING (test code 246 MG/DL 60-99 H = GLUBED) GLUCOSE BEDSIDE [id number] 16:46:00 Test Item Value Reference Range Interpretation Comments GLUCOSE BEDSIDE TESTING (test code 268 MG/DL 60-99 H = GLUBED) BASIC METABOLIC [id number] 14:35:00 Test Item Value Reference Range Interpretation Comments SODIUM (test code = 135 MMOL/L 137-145 L NA) POTASSIUM (test code = 4.5 MMOL/L 3.5-5.1 N K) CHLORIDE (test code = 104 MMOL/L 98-107 N CL) CARBON DIOXIDE (test 22 MMOL/L 22-30 code = CO2) ANION GAP (test code = 14 MMOL/L 14-24 N GAP) GLUCOSE (test code = 232 MG/DL 74-106 H GLU) BLOOD UREA NITROGEN 16 MG/DL 9-20 N (test code = BUN) GLOMERULAR FILTRATION > 60 Report ing units: RATE (test code = GFR) ml/mi n/1.73 m2 (Modified MDRD Formula)Referen ce Range: > or = 6 0 ml/min/1.73 m2 CREATININE (test code 0.90 MG/DL 0.66-1.25 = CREAT) CALCIUM (test code = 8.9 MG/DL 8.4-10.2 N CA) [id number] 14:35:00 Test Item Value Reference Range Interpretation Comments MAGNESIUM (test code = MAG) 1.3 MG/DL 1.6-2.3 L CBC W/AUTO [id number] 13:52:00 Test Item Value Reference Range Interpretation Comments WHITE BLOOD CELL (test code = 12.8 K/MM3 3.8-9.8 H WBC) RED BLOOD CELL (test code = 3.75 M/MM3 3.95-5.67 L RBC) HEMOGLOBIN (test code = HGB) 11.4 G/DL 12.4-16.7 L HEMATOCRIT (test code = HCT) 34.7 % 35.9-49.5 L MEAN CELL VOLUME (test code = 93 fL 81.7-96.1 N MCV) MEAN CELL HGB (test code = MCH) 30.4 pg 27.6-33.2 N MEAN CELL HGB CONCETRATION 32.9 % 32.9-35.5 N (test code = MCHC) RED CELL DISTRIBUTION WIDTH 12.9 % 12.1-15.2 N (test code = RDW) PLATELET COUNT (test code = 337 K/MM3 129-368 N PLT) MEAN PLATELET VOLUME (test code 9.4 fl 7.4-10.4 N = MPV) NEUTROPHIL % (test code = NT%) 89.0 % 43-75 H IMMATURE GRANULOCYTE % (test 0.9 % 0.0-2.0 N code = IG%) LYMPHOCYTE % (test code = LY%) 5.2 % 14-44 L MONOCYTE % (test code = MO%) 3.7 % 4-13 L EOSINOPHIL % (test code = EO%) 0.7 % 0-6 N BASOPHIL % (test code = BA%) 0.5 % 0-2 N NUCLEATED RBC % (test code = 0.0 % 0-1.0 N NRBC%) NEUTROPHIL # (test code = NT#) 11.39 K/mm3 2.0-7.6 H IMMATURE GRANULOCYTE # (test 0.12 x10 3/uL 0-0.03 H code = IG#) LYMPHOCYTE # (test code = LY#) 0.67 K/mm3 1.0-3.8 L MONOCYTE # (test code = MO#) 0.48 K/mm3 0.1-0.8 N EOSINOPHIL # (test code = EO#) 0.09 K/mm3 0.0-0.2 N BASOPHIL # (test code = BA#) 0.07 K/mm3 0.0-0.2 N NUCLEATED RBC # (test code = 0.00 K/mm3 0.0-0.1 N NRBC#) ARTERIAL BLOOD [id number] 13:47:00 Test Item Value Reference Range Interpretation Comments ARTERIAL BLOOD GAS PH 7.34 mmHg 7.35-7.45 L (test code = PHA) ARTERIAL BLOOD GAS 41.9 mmHg 35.0-45.0 N PCO2 (test code = PCO2A) ARTERIAL BLOOD GAS 93.2 mmol/L 80.0-100.0 N PO2 (test code = PO2A) BICARBONATE TOTAL 22.2 mmol/L 20.0-26.0 N HCO3 (test code = HCO3) BASE EXCESS (test -3.4 mmol/L -3.0-3.0 L code = DG) ABG O2 SATURATION 96.7 % 95.0-100.0 N (test code = SATA) ABG DELIVERY (test N/C code = AZIZA) ABG TEMPERATURE (test 37.0 C See_Comment [Auto mated message] code = TEMPA) The system Lucky Pai generated this result transmitted ref erence range: 37. The reference range was not used to int erpret this result as normal/abnormal . ABG SITE (test code = AL SITEA) ALLENS TEST (test NA CHECK code = ALLENS) FIO2 (test code = 44 % COHBGFFIO2) - XR CHEST [id number] 12:55:[address] [facility] 1960 Sex: M Patient Name: NOY LEZAMA Unit No: [id number] EXAMS: CPT CODE: [id number] XR CHEST 1V 07878 EXAM: - XR CHEST 1V CLINICAL HISTORY: s/p line placement TECHNIQUE: Single frontal view. COMPARISON: Chest radiograph 02/10/2022 LOCATION: U19 FINDINGS: Left-sided central line tip terminates at the level of proximal SVC. The trachea appears normal. The cardiomediastinal silhouette appears mildly enlarged, which may be projectional. Signs of mild vascular congestion and prominent right perihilar markings, favoring trace pulmonary edema. No pleural effusions. Limited evaluation of soft tissues and osseous structures isgrossly unremarkable. IMPRESSION: Left-sided central line tip terminates at the level of the proximal SVC. Signs of mild vascular congestion and trace central pulmonary edema. at 1255 Reported and signed by: Alejo Ramirez MD CC: Kevin Juarez Technologist: Preethi Clark (RT)(R) Transcrpt Date/Tm/Trnsp: 02/11/2022 (8633) t.JW22 Orig Print D/T: S: 02/11/2022 (3466) [facility] NAME: NOY LEZAMA [address] [place] [address] PHYS: [place] [address] : 1960 AGE: 61 SEX: M LOC: Z.SI06 A PHONE #: [phone] EXAM DATE: 02/11/2022 STATUS: ADM IN FAX #: [phone] RADIOLOGY NO: PAGE 1 Signed Repo rtGLUCOSE BEDSIDE [id number] 07:34:00 Test Item Value Reference Range Interpretation Comments GLUCOSE BEDSIDE TESTING (test code 173 MG/DL 60-99 H = GLUBED) GLUCOSE BEDSIDE [id number] 20:04:00 Test Item Value Reference Range Interpretation Comments GLUCOSE BEDSIDE TESTING 264 MG/DL 60-99 H Noti fied Nurse~ (test code = GLUBED) GLUCOSE BEDSIDE [id number] 16:26:00 Test Item Value Reference Range Interpretation Comments GLUCOSE BEDSIDE TESTING (test code 225 MG/DL 60-99 H = GLUBED) BASIC METABOLIC [id number] 16:11:00 Test Item Value Reference Range Interpretation Comments SODIUM (test code = 133 MMOL/L 137-145 L NA) POTASSIUM (test code = 4.6 MMOL/L 3.5-5.1 N K) CHLORIDE (test code = 100 MMOL/L 98-107 N CL) CARBON DIOXIDE (test 25 MMOL/L 22-30 N code = CO2) GLUCOSE (test code = 242 MG/DL 74-106 H GLU) BLOOD UREA NITROGEN 24 MG/DL 9-20 H (test code = BUN) GLOMERULAR FILTRATION 51 Report ing units: RATE (test code = GFR) ml/mi n/1.73 m2 (Modified MDRD Formula)Referen ce Range: > or = 6 0 ml/min/1.73 m2 CREATININE (test code 1.40 MG/DL 0.66-1.25 H = CREAT) CALCIUM (test code = 8.9 MG/DL 8.4-10.2 N CA) PROTHROMBIN [id number] 16:07:00 Test Item Value Reference Range Interpretation Comments PROTHROMBIN TIME 11.0 SECONDS 9.4-12.7 PATIENT (test code = PTP) INTERNATIONAL NORMAL 1.0 0.86-1.14 N The INR is to be RATIO (test code = used only for INR) monitoring oral anticoagulantth erap y. INDICATION I NR VALUE ---- ---- ---- -------1. Prophylaxis, de ep venous thrombos is, including high risk surgery. 2.0 - 3.0 2. Prophylaxis, deep venous thrombosis, hip surgery, treatm ent for deep venous thrombosis or pulmonary prevention of systemic emboli sm in patients wit h valvular heart disease, atrial fibrillation, tissue heart va lve, or acute myocar dial infarction. 2.0 - 3.0 3. Surfacer al prosthesis hear t valves, recurre nt systemic emboli sm. 3.0 - 4.5 PTT [id number] 16:07:00 Test Item Value Reference Range Interpretation Comments PTT ACTIVATED (test code = APTT) 37.3 SECONDS 26.2-35.4 H CBC W/AUTO [id number] 15:47:00 Test Item Value Reference Range Interpretation Comments WHITE BLOOD CELL (test code = 9.2 K/MM3 3.8-9.8 N WBC) RED BLOOD CELL (test code = 3.99 M/MM3 3.95-5.67 N RBC) HEMOGLOBIN (test code = HGB) 12.1 G/DL 12.4-16.7 L HEMATOCRIT (test code = HCT) 37.4 % 35.9-49.5 N MEAN CELL VOLUME (test code = 94 fL 81.7-96.1 N MCV) MEAN CELL HGB (test code = MCH) 30.3 pg 27.6-33.2 N MEAN CELL HGB CONCETRATION 32.4 % 32.9-35.5 L (test code = MCHC) RED CELL DISTRIBUTION WIDTH 12.7 % 12.1-15.2 N (test code = RDW) PLATELET COUNT (test code = 339 K/MM3 129-368 N PLT) MEAN PLATELET VOLUME (test code 9.6 fl 7.4-10.4 N = MPV) NEUTROPHIL % (test code = NT%) 73.1 % 43-75 N IMMATURE GRANULOCYTE % (test 0.3 % 0.0-2.0 N code = IG%) LYMPHOCYTE % (test code = LY%) 12.2 % 14-44 L MONOCYTE % (test code = MO%) 11.8 % 4-13 N EOSINOPHIL % (test code = EO%) 1.8 % 0-6 N BASOPHIL % (test code = BA%) 0.8 % 0-2 N NUCLEATED RBC % (test code = 0.0 % 0-1.0 N NRBC%) NEUTROPHIL # (test code = NT#) 6.72 K/mm3 2.0-7.6 N IMMATURE GRANULOCYTE # (test 0.03 x10 3/uL 0-0.03 N code = IG#) LYMPHOCYTE # (test code = LY#) 1.12 K/mm3 1.0-3.8 N MONOCYTE # (test code = MO#) 1.08 K/mm3 0.1-0.8 H EOSINOPHIL # (test code = EO#) 0.17 K/mm3 0.0-0.2 N BASOPHIL # (test code = BA#) 0.07 K/mm3 0.0-0.2 N NUCLEATED RBC # (test code = 0.00 K/mm3 0.0-0.1 N NRBC#) - XR CHEST [id number] 14:34:[address] [facility] 1960 Sex: M Patient Name: NOY LEZAMA Unit No: [id number] EXAMS: CPT CODE: [id number] XR CHEST 1V 05291 EXAM: CHEST ONE VIEW INDICATION: Vascular Bypass Preop LOCATION: B2 COMPARISON: February 03, 2022 TECHNIQUE: AP view of the chest FINDINGS: The heart size is normal. The lungs are clear bilaterally. The pulmonary vasculature is normal. No pneumothorax or pleural effusion is identified. The osseous structures are normal. IMPRESSION: No acute cardiopulmonary process. at 1434 Reported and signed by: Liza Elise MD CC: Kevin Juarez; Sangeeta LY Technologist: Preethi Calrk (RT)(R) Transcrpt Date/Tm/Trnsp: 02/10/2022 (1434) [id number] Orig Print D/T: S: 02/10/2022 (1438) [facility] NAME: NOY LEZAMA [id number] [address] PHYS: [place] [address] : 1960 AGE: 61 SEX: M LOC: Z.619 A PHONE #: [phone] DATE: 02/10/2022 STATUS: ADM IN FAX #: [phone] RADIOLOGY NO: PAGE 1 Signed ReportGLUCOSE BEDSIDE TESTING 2022-02-10 13:40:00 Test Item Value Reference Range Interpretation Comments GLUCOSE BEDSIDE TESTING (test code 249 MG/DL 60-99 H = GLUBED) GLUCOSE BEDSIDE [id number] 08:37:00 Test Item Value Reference Range Interpretation Comments GLUCOSE BEDSIDE TESTING 253 MG/DL 60-99 H Noti fied Nurse~ (test code = GLUBED) GLUCOSE BEDSIDE [id number] 20:16:00 Test Item Value Reference Range Interpretation Comments GLUCOSE BEDSIDE TESTING (test code 220 MG/DL 60-99 H = GLUBED) GLUCOSE BEDSIDE [id number] 17:43:00 Test Item Value Reference Range Interpretation Comments GLUCOSE BEDSIDE TESTING (test code 254 MG/DL 60-99 H = GLUBED) GLUCOSE BEDSIDE [id number] 12:58:00 Test Item Value Reference Range Interpretation Comments GLUCOSE BEDSIDE TESTING (test code 276 MG/DL 60-99 H = GLUBED) GLUCOSE BEDSIDE [id number] 07:28:00 Test Item Value Reference Range Interpretation Comments GLUCOSE BEDSIDE TESTING (test code 160 MG/DL 60-99 H = GLUBED) GLUCOSE BEDSIDE [id number] 20:25:00 Test Item Value Reference Range Interpretation Comments GLUCOSE BEDSIDE TESTING (test code 227 MG/DL 60-99 H = GLUBED) GLUCOSE BEDSIDE [id number] 17:11:00 Test Item Value Reference Range Interpretation Comments GLUCOSE BEDSIDE TESTING (test code 276 MG/DL 60-99 H = GLUBED) GLUCOSE BEDSIDE [id number] 12:16:00 Test Item Value Reference Range Interpretation Comments GLUCOSE BEDSIDE TESTING (test code 299 MG/DL 60-99 H = GLUBED) GLUCOSE BEDSIDE [id number] 08:51:00 Test Item Value Reference Range Interpretation Comments GLUCOSE BEDSIDE TESTING (test code 167 MG/DL 60-99 H = GLUBED) CBC W/AUTO [id number] 06:02:00 Test Item Value Reference Range Interpretation Comments WHITE BLOOD CELL (test code = 9.8 K/MM3 3.8-9.8 N WBC) RED BLOOD CELL (test code = 4.03 M/MM3 3.95-5.67 N RBC) HEMOGLOBIN (test code = HGB) 12.2 G/DL 12.4-16.7 L HEMATOCRIT (test code = HCT) 37.4 % 35.9-49.5 N MEAN CELL VOLUME (test code = 93 fL 81.7-96.1 N MCV) MEAN CELL HGB (test code = MCH) 30.3 pg 27.6-33.2 N MEAN CELL HGB CONCETRATION 32.6 % 32.9-35.5 L (test code = MCHC) RED CELL DISTRIBUTION WIDTH 12.8 % 12.1-15.2 N (test code = RDW) PLATELET COUNT (test code = 312 K/MM3 129-368 N PLT) MEAN PLATELET VOLUME (test code 9.5 fl 7.4-10.4 N = MPV) NEUTROPHIL % (test code = NT%) 66.8 % 43-75 N IMMATURE GRANULOCYTE % (test 0.5 % 0.0-2.0 N code = IG%) LYMPHOCYTE % (test code = LY%) 15.0 % 14-44 N MONOCYTE % (test code = MO%) 14.6 % 4-13 H EOSINOPHIL % (test code = EO%) 2.2 % 0-6 N BASOPHIL % (test code = BA%) 0.9 % 0-2 N NUCLEATED RBC % (test code = 0.0 % 0-1.0 N NRBC%) NEUTROPHIL # (test code = NT#) 6.52 K/mm3 2.0-7.6 N IMMATURE GRANULOCYTE # (test 0.05 x10 3/uL 0-0.03 H code = IG#) LYMPHOCYTE # (test code = LY#) 1.46 K/mm3 1.0-3.8 N MONOCYTE # (test code = MO#) 1.42 K/mm3 0.1-0.8 H EOSINOPHIL # (test code = EO#) 0.21 K/mm3 0.0-0.2 H BASOPHIL # (test code = BA#) 0.09 K/mm3 0.0-0.2 N NUCLEATED RBC # (test code = 0.00 K/mm3 0.0-0.1 N NRBC#) BASIC METABOLIC [id number] 05:54:00 Test Item Value Reference Range Interpretation Comments SODIUM (test code = 132 MMOL/L 137-145 L NA) POTASSIUM (test code = 3.7 MMOL/L 3.5-5.1 N K) CHLORIDE (test code = 101 MMOL/L 98-107 N CL) CARBON DIOXIDE (test 24 MMOL/L 22-30 N code = CO2) GLUCOSE (test code = 152 MG/DL 74-106 H GLU) BLOOD UREA NITROGEN 23 MG/DL 9-20 H (test code = BUN) GLOMERULAR FILTRATION 56 Report ing units: RATE (test code = GFR) ml/mi n/1.73 m2 (Modified MDRD Formula)Referen ce Range: > or = 6 0 ml/min/1.73 m2 CREATININE (test code 1.30 MG/DL 0.66-1.25 H = CREAT) CALCIUM (test code = 8.3 MG/DL 8.4-10.2 L CA) GLUCOSE BEDSIDE [id number] 22:29:00 Test Item Value Reference Range Interpretation Comments GLUCOSE BEDSIDE TESTING (test code 266 MG/DL 60-99 H = GLUBED) GLUCOSE BEDSIDE [id number] 22:17:00 Test Item Value Reference Range Interpretation Comments GLUCOSE BEDSIDE TESTING (test code 280 MG/DL 60-99 H = GLUBED) GLUCOSE BEDSIDE [id number] 16:52:00 Test Item Value Reference Range Interpretation Comments GLUCOSE BEDSIDE TESTING (test code 229 MG/DL 60-99 H = GLUBED) - XR TIBIA/FIBULA 2 V [id number] 13:44:[address] [facility] 1960 Sex: M Patient Name: NOY LEZAMA Unit No: [id number] EXAMS: CPT CODE: [id number] XR TIBIA/FIBULA 2 [place] LT [address]05 CLINICAL INFORMATION: Leg wound anterior tibia. Dictation location: J9 COMPARISON: No prior. FINDINGS: Lateral views show surgical clips in the soft tissues of the distal femur. No fracture, dislocation, subluxation or destructive lesion is identified. No cortical or periosteal reaction is seen. No radiopaque foreign body is otherwise identified. As demonstrated in the ankle joints appear unremarkable. IMPRESSION: No acute finding. No evidence of periosteal reaction. at 1344 Reported and signed by: Marcio Malcolm M.D. CC: Royce Maguire DO; Kevin Juarez Technologist: Jonas Mayberry RT Transcrpt Date/Tm/Trnsp: 02/07/2022 (9025) Kelly Orig Print D/T: S: 02/07/2022 (5769) [facility] NAME: NOY LEZAMA [place] [address] PHYS: Roy[place] [address] [place] [address] : 1960 AGE: 61 SEX: M LOC: Z.619 A PHONE #: [phone] EXAM DATE: 02/07/2022 STATUS: ADM IN FAX #: [phone] RADIOLOGY NO: PAGE 1 Signed ReportUR SODIUM [id number] 12:32:00 Test Item Value Reference Range Interpretation Comments UR SODIUM RANDOM (test code = REJI) 30 MMOL/L 27-287 N UR OSMOLALITY [id number] 12:32:00 Test Item Value Reference Range Interpretation Comments UR OSMOLALITY RANDOM (test code 311.5 MOS/KG 300-1200 N = OSMOU) GLUCOSE BEDSIDE [id number] 12:10:00 Test Item Value Reference Range Interpretation Comments GLUCOSE BEDSIDE TESTING (test code 235 MG/DL 60-99 H = GLUBED) DRUGS OF ABUSE SCREEN [id number] 11:09:00 Test Item Value Reference Range Interpretation Comments UR COCAINE (test code = NEGATIVE NEGATIVE Cut off Value: 300 COCAU) ng/mL UR CANNABINOIDS (THC) NEGATIVE NEGATIVE Cut of f Value: 50 (test code = CANU) ng/mL UR AMPHETAMINE (test code NEGATIVE NEGATIVE Cu t off Value: 1000 = AMPHU) ng/mL UR BARBITURATE QUAL (test NEGATIVE NEGATIVE Cu t off Value: 200 code = BARBQLU) ng/mL UR BENZODIAZEPINE (test NEGATIVE NEGATIVE Cut off Value: 200 code = BENZU) ng/mL UR OPIATES QUAL (test code NEGATIVE NEGATIVE C ut off Value: 300 = OPIAQLU) ng/mL UR PHENCYCLIDINE (PCP) NEGATIVE NEGATIVE Cut o ff Value: 25 (test code = PHENCU) ng/mL URINALYSIS [id number] 10:39:00 Test Item Value Reference Range Interpretation Comments UA COLOR (test code = YELLOW YELLOW COLU) UA APPEARANCE (test code SLIGHT CLOUDY CLEAR = APPU) UA GLUCOSE DIPSTICK (test 50 MG/DL NORMAL A code = DGLUU) UA BILIRUBIN DIPSTICK NEGATIVE MG/DL NEGATIVE (test code = BILU) UA KETONE DIPSTICK (test NEGATIVE MG/DL NEGATIVE code = KETU) UA SPECIFIC GRAVITY (test 1.015 1.003-1.030 N code = SGU) UA BLOOD DIPSTICK (test 250 Pradeep/mm3 NEGATIVE A code = DARIN) UA PH DIPSTICK (test code 6.0 5.0-9.0 N = MARTIN) UA PROTEIN DIPSTICK (test 500 MG/DL NEGATIVE A code = PROU) UA UROBILINIOGEN DIPSTICK NORMAL MG/DL NORMAL (test code = URO) UA NITRITE DIPSTICK (test NEGATIVE NEGATIVE code = MATTHEW) UA LEUKOCYTE ESTERASE 500 /mm3 NEGATIVE A DIPSTICK (test code = LEUU) UA CULTURE NEEDED? (test YES,WBC>10 & EPI<25 Culture Chk code = UACULT) Criteria SOURCE OF URINE: CLEAN CATCHUA [id number] 10:39:00 Test Item Value Reference Range Interpretation Comments UA RBC (test code = RBCU) 5-10 RBC/HPF 0-3 A UA WBC (test code = XWBCU) >100 WBC/HPF 0-5 A UA EPITHELIAL CELLS (test code = RARE EPI/HPF FEW EPIU) UA BACTERIA (test code = XBACU) FEW NONE UA YEAST (test code = YEASTU) MANY #/HPF NONE A SOURCE OF URINE: CLEAN CATCHGLUCOSE BEDSIDE [id number] 08:28:00 Test Item Value Reference Range Interpretation Comments GLUCOSE BEDSIDE TESTING (test code 174 MG/DL 60-99 H = GLUBED) BASIC METABOLIC [id number] 06:38:00 Test Item Value Reference Range Interpretation Comments SODIUM (test code = 131 MMOL/L 137-145 L NA) POTASSIUM (test code = 3.8 MMOL/L 3.5-5.1 N K) CHLORIDE (test code = 100 MMOL/L 98-107 N CL) CARBON DIOXIDE (test 25 MMOL/L 22-30 N code = CO2) ANION GAP (test code = 10 MMOL/L 14-24 L GAP) GLUCOSE (test code = 173 MG/DL 74-106 H GLU) BLOOD UREA NITROGEN 23 MG/DL 9-20 H (test code = BUN) GLOMERULAR FILTRATION 56 Report ing units: RATE (test code = GFR) ml/mi n/1.73 m2 (Modified MDRD Formula)Referen ce Range: > or = 6 0 ml/min/1.73 m2 CREATININE (test code 1.30 MG/DL 0.66-1.25 H = CREAT) CALCIUM (test code = 8.8 MG/DL 8.4-10.2 N CA) GLUCOSE BEDSIDE [id number] 21:32:00 Test Item Value Reference Range Interpretation Comments GLUCOSE BEDSIDE TESTING (test code 255 MG/DL 60-99 H = GLUBED) GLUCOSE BEDSIDE [id number] 16:27:00 Test Item Value Reference Range Interpretation Comments GLUCOSE BEDSIDE TESTING (test code 280 MG/DL 60-99 H = GLUBED) GLUCOSE BEDSIDE [id number] 11:52:00 Test Item Value Reference Range Interpretation Comments GLUCOSE BEDSIDE TESTING (test code 256 MG/DL 60-99 H = GLUBED) GLUCOSE BEDSIDE [id number] 07:29:00 Test Item Value Reference Range Interpretation Comments GLUCOSE BEDSIDE TESTING 223 MG/DL 60-99 H Noti fied Nurse~ (test code = GLUBED) GLUCOSE BEDSIDE [id number] 01:37:00 Test Item Value Reference Range Interpretation Comments GLUCOSE BEDSIDE TESTING (test code 261 MG/DL 60-99 H = GLUBED) GLUCOSE BEDSIDE [id number] 19:36:00 Test Item Value Reference Range Interpretation Comments GLUCOSE BEDSIDE TESTING (test code 283 MG/DL 60-99 H = GLUBED) GLUCOSE BEDSIDE [id number] 16:30:00 Test Item Value Reference Range Interpretation Comments GLUCOSE BEDSIDE TESTING (test code 202 MG/DL 60-99 H = GLUBED) HERIBERTO [id number] 15:10:00 Test Item Value Reference Range Interpretation Comments HERIBERTO DIRECT (test Positive See_Comment A Negative <1:80 Borderline code = ANADIR) 1:80 Positive >1:80 Negative <1:80 Borderline 1:80 Positive & gt;1:80Note:A positive HERIBERTO re sult may occur in health y individuals (lowtiter) or b e associated with a variety of diseases. Seeinterpretati on chart which is not al l inclusive: Pattern Antigen Detected Suggested Disea se Association---- ------- - -Homogeneous DN A(ds,ss), SLE - High titers N ucleosomes, Histones Drug-i nduced SLE - -Speckled Sm, R [employer] AP[employer]ENTICE, SCL-70 SLE,MCTD,PSS (d iffuse form), SS-A/SS-B Sjogr ens --- -Nucleolar SCL- 70, PM-1/SCL High titers Scl eroderma, PM/DM - - -Centromere Vanessa tromere PSS (limited form) w/Crest syndrome variab le - -Nuclear Dot Sp100,c92-vnjmy n Primary Biliary Cirrhos is - -Nuclear GP210, Primary Biliary Cirrhos isMembrane sandrine A,B,C---- ------- - - [Automated me ssage] The system which Itandi nerated this result transmit maria del carmen reference range: (). The reference range was not u sed to interpret this result as normal/abnormal . HERIBERTO [id number] 15:10:00 Test Item Value Reference Range Interpretation Comments HERIBERTO TITER (test code See_Comment [Autom ated message] The = ANATITR) system which Itandi nerated this result transmit maria del carmen reference range : <1:40. The reference range was not used to interpr et this result as duong l/abnormal. GLUCOSE BEDSIDE [id number] 07:43:00 Test Item Value Reference Range Interpretation Comments GLUCOSE BEDSIDE TESTING (test code 171 MG/DL 60-99 H = GLUBED) GLUCOSE BEDSIDE [id number] 19:44:00 Test Item Value Reference Range Interpretation Comments GLUCOSE BEDSIDE TESTING 276 MG/DL 60-99 H Noti fied Nurse~ (test code = GLUBED) - CT ANGIO [id number] 18:26:[address] [facility] 1960 Sex: M Patient Name: NOY LEZAMA Unit No: [id number] EXAMS: CPT CODE: [id number] CT ANGIO HEAD [address] EXAM: - CT ANGIOHEAD, - CT ANGIO NECK W WO CONT CLINICAL INDICATION: head and neck COMPARISON: None available. LOCATION: 5 TECHNIQUE: Noncontrast axial CT images of the head were also performed. Subsequently, axialCT angiographic images of the upper chest, neck, and head were obtained, from which three-dimensional reconstructed images were created. Additional imaging series were created on an independent workstation using maximum intensity projection and volume rendered technique. This examination was performedaccording to our departmental dose optimization program, which includes automated exposure control, adjustment of the mA and/or kV according to patient size, and/or use of iterative reconstruction technique. FINDINGS: Noncontrast head: Age indeterminate prominent infarct noted involving the right frontal lobe, middle frontal gyrus with small focal infarct of the right occipital lobe. No definitive intracranial hemorrhage identified. Extracranial vasculature Aortic Arch: Nonaneurysmal with moderate atherosclerosis. The arch vessels are patent. Right side: The common carotid artery is patent and nonaneurysmal with mild atherosclerosis. The carotid bulb demonstrates mild mixed soft and calcific atherosclerosis without luminal stenosis. The external carotid branches are unremarkable. The internal carotid artery is well opacified throughout the cervical segment. Severe mixed soft and calcific atherosclerosis noted at the ostium and throughout the proximal cervical segment with multifocal areas of s evere stenosis approximately 90% (series 5 images 186, 212). This appears mostly due to soft atheromatous plaque. Left side: The common carotid artery is patent and nonaneurysmal with moderate atherosclerosis. The carotid bulb demonstrates mild mixed calcific and soft atherosclerosis without evidenceof luminal stenosis. The external carotid branches are unremarkable. The internal carotid artery is well opacified throughout the cervical segment. Mild ostial and proximal segment calcifications noted. No significant stenosis by NASCET criteria. Other: The vertebral arteries are codominant. Moderate calcification seen throughout the left vertebral artery including severe calcifications of the V1 segment with suspect underlying severe stenosis (series 5 image 86). Intracranial vasculature [facility] NAME: NOY LEZAMA [id number] [address] PHYS: [place] [address] : 1960 AGE: 61 SEX: M LOC: Z.619 A PHONE #: [phone] EXAM DATE: 02/04/2022 STATUS: ADM IN FAX #: [phone] RAD #: D/C DT PAGE 1 Signed Report (CONTINUED) Patient Name: NOY LEZAMA Unit No: [id number] EXAMS: CPT CODE: [id number] CT ANGIO HEAD [address] (Continued) Right: The internalcarotid artery appears patent with severe atherosclerosis of the cavernous segment and suspect underlying stenosis up to at least 75%. 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 The middle cerebral artery is well opacified with contrast extending to the distal branches. The posterior cerebral artery is patent. Left: The internal carotid artery is patent with severe atherosclerosis of the cavernous segment and suspect underlying stenosis up to at least 75%. The anterior cerebralartery is well opacified. The middle cerebral artery is well opacified with contrast extending to the distal branches. The posterior cerebral artery is patent. Other: The anterior communicating artery is present in nonaneurysmal. The posterior communicating arteries are not well-visualized. The basilar artery is unremarkable. Brain and orbits: There is nonenhancement involving the areas of previouslynoted hypoattenuation involving the right middle frontal gyrus and focal cortex of the right occipital lobe. Globes are intact and symmetric in volume. The paranasal sinuses and mastoid air cells are well aerated. Soft tissues: No soft tissue abnormalities. Paraseptal of seem again noted at the lung apices. Bones: No acute osseous findings. Cervical spine degenerative changes noted including probable bilateral uncovertebral joint hypertrophy resulting in neural foraminal narrowing. This includes severe bilateral narrowing C4-C5, severe left narrowing C5-C6, and moderate to severe bilateral narrowing C6-C7. IMPRESSION: 1. 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 2. Severe atherosclerosis of the bilateral internal carotid artery cavernous segments with suspect underlying stenosis up to 75%. 3. Moderate left vertebral artery atherosclerosis with focal severe calcifications of the V1 segment and suspect underlying severe stenosis. 4. Nonenhancement of the hypoattenuating areas right frontal lobe, middle frontal gyrus and focal cortex of the right occ ipital lobe. These represent age-indeterminate infarcts and are better assessed on same day MR brain. [facility] NAME: NOY LEZAMA [id number] [address] PHYS: [place] [address] : 1960 AGE: 61 SEX: M LOC: Z.619 A PHONE #: [phone] EXAM DATE: 02/04/2022 STATUS: ADM IN FAX #: [phone] RAD #: D/C DT PAGE 2 Signed Report (CONTINUED) Patient Name: NOY LEZAMA Unit No: [id number] EXAMS: CPT CODE: [id number] CT ANGIO HEAD [address]356 (Continued) Findingswere communicated to Dr. Chavez by telephone on 02/04/2022 5:46 PM. at 1826 Reported and signed by: Alejo Ramirez MD CC: Technologist: Sharon Lawson (RT); Marisabel Ho, CTDI: DLP: Trnscrpt: 02/04/2022 (1825) [id number] [facility] NAME: SONAM LEZAMA[address] PHYS: [place] [address] : 1960 AGE: 61 SEX: M LOC: Z.619 A PHONE #: [phone] EXAM DATE: 02/04/2022 STATUS: ADM IN FAX #: [phone] RAD #: D/C DT PAGE 3 Signed Report Patient Name: NOY LEZAMA Unit No: [id number] EXAMS: CPT CODE: [id number] CT ANGIO HEAD [address] (Continued) Orig Print D/T: S: 02/04/2022 (1828) [facility] NAME: NOY LEZAMA[address] PHYS: [place] [address] : 1960 AGE: 61 SEX: M LOC: Z.547 A PHONE #: [phone] EXAM DATE: 02/04/2022 STATUS: ADMIN FAX #: [phone] RAD #: D/C DT PAGE 4 Signed Report- CT ANGIO NECK W WO [id number] 18:26:[address] [facility] 1960 Sex: M Patient Name: NOY LEZAMA Unit No: [id number] EXAMS: CPT CODE: [id number] CT ANGIO NECK W WO CONT [address] EXAM:- CT ANGIO HEAD, - CT ANGIO NECK W WO CONT CLINICAL INDICATION: head and neck COMPARISON: None available. LOCATION: H65 TECHNIQUE: Noncontrast axial CT images of the head were also performed. Subsequently, axial CT angiographic images of the upper chest, neck, and head were obtained, from which three-dimensional reconstructed images were created. Additional imaging series were created on an independent workstation using maximum intensity projection and volume rendered technique. This examination wasperformed according to our departmental dose optimization program, which includes automated exposure control, adjustment of the mA and/or kV according to patient size, and/or use of iterative reconstruction technique. FINDINGS: Noncontrast head: Age indeterminate prominent infarct noted involving the right frontal lobe, middle frontal gyrus with small focal infarct of the right occipital lobe. No defi nitive intracranial hemorrhage identified. Extracranial vasculature Aortic Arch: Nonaneurysmal with moderate atherosclerosis. The arch vessels are patent. Right side: The common carotid artery is patent and nonaneurysmal with mild atherosclerosis. The carotid bulb demonstrates mild mixed soft and calcific atherosclerosis without luminal stenosis. The external carotid branches are unremarkable. The internal carotid artery is well opacified throughout the cervical segment. Severe mixed soft and calcific atherosclerosis noted at the ostium and throughout the proximal cervical segment with multifocal areas of severe stenosis approximately 90% (series 5 images 186, 212). This appears mostly due to softatheromatous plaque. Left side: The common carotid artery is patent and nonaneurysmal with moderate atherosclerosis. The carotid bulb demonstrates mild mixed calcific and soft atherosclerosis without evidence of luminal stenosis. The external carotid branches are unremarkable. The internal carotid artery is well opacified throughout the cervical segment. Mild ostial and proximal segment calcifications noted. No significant stenosis by NASCET criteria. Other: The vertebral arteries are codominant. Moderate calcification seen throughout the left vertebral artery including severe calcifications of the V1 segment with suspect underlying severe stenosis (series 5 image 86). Intracranial vasculature [facility] NAME: NOY LEZAMA [address] [address] PHYS: [place] [address] : 1960 AGE: 61 SEX: M LOC: [id number] A PHONE #: [phone] EXAM DATE: 02/04/2022 STATUS: ADM IN FAX #: [phone] RAD #: D/C DT PAGE 1 Signed Report (CONTINUED) Patient Name: NOY LEZAMA Unit No: [id number] EXAMS: CPT CODE: [id number] CT ANGIO NECK W [place] CONT [address] (Continued) Right: The internal carotid artery appears patent with severe atherosclerosis of the cavernous segment and suspect underlying stenosis up to at least 75%. 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 The middle cerebral artery is well opacified with contrast extending to the distal branches. The posterior cerebral artery is patent. Left: The internal carotid artery is patent with severe atherosclerosis of the cavernous segment and suspect underlying stenosis up to at least 75%. The anterior cerebral artery is well opacified. The middle cerebral artery is well opacified with contrast extending to the distal branches. The posterior cerebral artery is patent. Other: The anterior communicating artery is present in nonaneurysmal. The posterior communicating arteries are not well-visualized. The basilar artery is unremarkable. Brain and orbits: There is nonenhancement involving theareas of previously noted hypoattenuation involving the right middle frontal gyrus and focal cortex of the right occipital lobe. Globes are intact and symmetric in volume. The paranasal sinuses and mastoid air cells are well aerated. Soft tissues: No soft tissue abnormalities. Paraseptal of seem againnoted at the lung apices. Bones: No acute osseous findings. Cervical spine degenerative changes noted including probable bilateral uncovertebral joint hypertrophy resulting in neural foraminal narrowing. This includes severe bilateral narrowing C4-C5, severe left narrowing C5-C6, and moderate to severe bilateral narrowing C6-C7. IMPRESSION: 1. Severe mixed soft and calcific atherosclerosis of the right internal carotid artery ostium and proximal cervical segment resulting in multifocal areas of severe stenosis up to at least 90%. 2. Severe atherosclerosis of the bilateral internal carotid artery cav ernous segments with suspect underlying stenosis up to 75%. 3. Moderate left vertebral artery atherosclerosis with focal severe calcifications of the V1 segment and suspect underlying severe stenosis. 4. Nonenhancement of the hypoattenuating areas right frontal lobe, middle frontal gyrus and focal cortex of the right occipital lobe. These represent age-indeterminate infarcts and are better assessed on same day MR brain. [facility] NAME: NOY LEZAMA [place]YS: [place] [address] : 1960 AGE: 61 SEX: M LOC: Z.619 A PHONE #: [phone] EXAM DATE: 02/04/2022 STATUS: ADM IN FAX #: [phone] RAD #: D/C DT PAGE 2 Signed Report (CONTINUED) Patient Name: NOY LEZAMA Unit No: [id number] EXAMS: CPT CODE: [id number] CT ANGIO NECK W [place] 54664 (Continued) Findings were communicated to Dr. Chavez by telephone on 02/04/2022 5:46 PM. at 1826 Reported and signed by: Alejo Ramirez MD CC: Sangeeta LY Technologist: Sharon Lawson (RT); Marisabel Fontaine, CTDI: DLP: Trnscrpt: 02/04/2022 (1825) [email or web address] [facility] NAME: NOY LEZAMA PHYS: [place] [address] : 1960 AGE: 61 SEX: M LOC: Z.619 A PHONE #: [phone] EXAM DATE: 02/04/2022 STATUS: ADM IN FAX #: [phone] RAD #: D/C DT PAGE 3 Signed Report Patient Name: NOY LEZAMA Unit No: [id number] EXAMS: CPT CODE: [id number] CT ANGIO NECK W WO CONT 10335 (Continued) Orig Print D/T: S: 02/04/2022 (1828) [facility] NAME: NOY LEZAMA41 Vimal PHYS:[place] [address] : 1960 AGE: 61 SEX: M LOC: Z.619 A PHONE #: [phone] EXAM DATE: 02/04/2022 STATUS: ADM IN FAX #: [phone] RAD #: D/C DT PAGE 4 Signed Report- MRI BRAIN W/O [id number] 17:49:[address] [facility] 1960 Sex: M Patient Name: NOY LEZAMA Unit No: [id number] Report Has Been Amended EXAMS: CPT CODE: [id number] MRI BRAIN W/O CONTRAST 31373 Addendum - 02/04/2022 SIGNED 02/04/2022 ADDENDUM: [id number] MRI/MRIBRAINWO Findings were communicated to Dr. Chavez by telephone on 02/04/2022 5:46 PM. at 7782 Reported and signed by: Alejo Ramirez MD Transcribed: 02/04/2022(2556) [email or web address] Report EXAM: - MRI BRAIN W/O CONTRAST CLINICAL INDICATION: Stroke TECHNIQUE: Multiplanar, multisequence MR imaging of the brain was performed utilizing the following imaging sequences: Axial T1, T2, FLAIR, GRE, and DWI; sagittal and coronal T1-weighted images. COMPARISON: CTA head and neck 02/04/2022 LOCATION: H65 FINDINGS: Multiple areas of focal restricted diffusion noted in the right cerebral hemisphere. The largest area involves the right frontal lobe at the middle frontal gyrus. Scattered infarcts of the right- sided posterior frontal and parietal white matter noted, likely representing watershed ischemia territory. There is additional small focal cortical infarct of the rightoccipital lobe. There is note of minimal extra-axial FLAIR and T1 hyperintensity signal adjacent to the right occipital infarct along the posterior convexity. No gradient blooming is noted, but findings may represent trace subarachnoid hemorrhage. No evidence of midline shift or herniation. No hydrocephalus. The major vessel T2 flow-voids are well-maintained. The globes are intact and symmetric in volume with no evidence of pre or post septal pathology. The paranasal sinuses and mastoid air cells are relatively clear. The sella and pineal regions are grossly unremarkable. IMPRESSION: Multifocal areas of acute infarct noted involving the right frontal lobe middle frontal gyrus, single cortex of theright occipital lobe, [facility] NAME: NOY LEZAMA Vimal PHYS: Varun Wolff MD [address] [address] : 1960 AGE: 61 SEX: M LOC: Z.619 A PHONE #: [phone] EXAM DATE: 02/04/2022 STATUS: ADM IN FAX #: [phone] RADIOLOGY NO: PAGE 1 Signed Report (CONTINUED) Patient Name: NOY LEZAMA Unit No: [id number] Report Has Been Amended EXAMS: CPT CODE: [id number] MRI BRAIN W/O CONTRAST 55833 (Continued) and in the frontal-parietal white matter representing watershed ischemia territory. Minimal extra-axial FLAIR and T1 hyperintensity signal seen adjacent to the right occipital infarct, possibly representing trace subarachnoid hemorrhage. at 1720 Reported and signed by: Alejo Ramirez MD CC: Varun Treviño MD Technologist: Arianne Trevino (RT)(R) Transcrpt Date/Tm/Trnsp: 02/04/2022 (1720) [email or web address] Orig Print D/T: S: 02/04/2022 (1723) [facility] NAME: NOY LEZAMA Celis PHYS: Varun Wolff MD [address] [address] : 1960 AGE: 61 SEX: M LOC: Z.619 A PHONE #: [phone] EXAM DATE: 02/04/2022 STATUS: ADM IN FAX #: [phone] RADIOLOGY NO: PAGE 2 Signed ReportGLUCOSE BEDSIDE [id number] 16:14:00 Test Item Value Reference Range Interpretation Comments GLUCOSE BEDSIDE TESTING (test code 209 MG/DL 60-99 H = GLUBED) GLUCOSE BEDSIDE [id number] 11:48:00 Test Item Value Reference Range Interpretation Comments GLUCOSE BEDSIDE TESTING (test code 168 MG/DL 60-99 H = GLUBED) GLUCOSE BEDSIDE [id number] 08:12:00 Test Item Value Reference Range Interpretation Comments GLUCOSE BEDSIDE TESTING (test code 147 MG/DL 60-99 H = GLUBED) GLUCOSE BEDSIDE [id number] 07:36:00 Test Item Value Reference Range Interpretation Comments GLUCOSE BEDSIDE TESTING (test code 153 MG/DL 60-99 H = GLUBED) COMPREHENSIVE METABOLIC [id number] 06:11:00 Test Item Value Reference Range Interpretation Comments SODIUM (test code 135 MMOL/L 137-145 L = NA) POTASSIUM (test 4.3 MMOL/L 3.5-5.1 N code = K) CHLORIDE (test 103 MMOL/L 98-107 N code = CL) CARBON DIOXIDE 27 MMOL/L 22-30 N (test code = CO2) ANION GAP (test 9 MMOL/L 14-24 L code = GAP) GLUCOSE (test 189 MG/DL 74-106 H code = GLU) BLOOD UREA 27 MG/DL 9-20 H NITROGEN (test code = BUN) GLOMERULAR 56 Reporting units : FILTRATION RATE ml/min/1.73 m2 (Modified (test code = GFR) MDRD Formu la)Reference Range: > or = 6 0 ml/min/1.73 m2 CREATININE (test 1.30 MG/DL 0.66-1.25 H code = CREAT) TOTAL PROTEIN 7.1 G/DL 6.2-7.6 N [facility] Clinical Diagnostic (test code = has made us sagrario re of PROT) newinformation regarding the potential i nterference ofEltrombopag ( a bone marrow stimulan t used to treatthrombocyt onmenia and aplastic anemia ) with specific assays on the Vitros 5600 of which Total Protein is one of thoseassays per formed in our lab.Interfe rence testing perform ed at Ortho determined that Eltrombopag does interfere with Vitros Total Protein asfollowsEltrom bopag Interference fo r Vitros Product Total Protein:======= Eltrombopag Max Observed Av g. BiasConcentrati on Concentration Concentration== ==== 2.5 mg/dl 6.0 g/dl +0.41 +0.34 3.5 mg/dl 6.0 g /dl +0.50 +0.45 5 mg/dl 6 .0 g/dl +0.73 +0.65 2.5 mg/dl 8.0 g/dl +0.44 +0.4 1 3.5 mg/dl 8.0 g/dl +0.55 +0.52 5 mg/dl 8.0 g/dl +0.86 +0.77 ALBUMIN (test 3.4 G/DL 3.5-5.0 L code = ALB) CALCIUM (test 8.6 MG/DL 8.4-10.2 N code = CA) BILIRUBIN TOTAL 0.6 MG/DL 0.2-1.3 N Eltrombopag Interference (test code = for Vitros Prod uct TBil, BILT) BuBc: Assa y Eltrombopag Heriberto lyte/ Max Observed Avg. B ias Concentration C oncentration Concentration== ====TBil 7mg/dl TBil/ 1. 2mg/dl +0.23mg.dl +0.2 0mg/dlBuBc 3.5mg/dl Bu/0.8 mg/dl +0.25mg/dl +0.2 4mg/dlBuBc 7 mg/dl Bu/14.2mg /dl +0.38mg/dl +0.2 5mg/dlBuBc 5mg/dl Bc/0mg/d l +0.25mg/dl +0.15mg/dlBuBc 3.5mg/dl Bc/2.8mg/dl +0. 25mg/dl +0.23mg/dl SGOT/AST (test 26 UNITS/L 17-59 N code = AST) SGPT/ALT (test 22 UNITS/L 0-49 N code = ALT) ALKALINE 113 UNITS/L 38-126 N PHOSPHATASE (test code = ALKP) [id number] 06:11:00 Test Item Value Reference Range Interpretation Comments MAGNESIUM (test code = MAG) 1.9 MG/DL 1.6-2.3 N CBC W/AUTO [id number] 06:10:00 Test Item Value Reference Range Interpretation Comments WHITE BLOOD CELL (test code = 8.9 K/MM3 3.8-9.8 N WBC) RED BLOOD CELL (test code = 4.10 M/MM3 3.95-5.67 N RBC) HEMOGLOBIN (test code = HGB) 12.5 G/DL 12.4-16.7 N HEMATOCRIT (test code = HCT) 39.2 % 35.9-49.5 N MEAN CELL VOLUME (test code = 96 fL 81.7-96.1 N MCV) MEAN CELL HGB (test code = MCH) 30.5 pg 27.6-33.2 N MEAN CELL HGB CONCETRATION 31.9 % 32.9-35.5 L (test code = MCHC) RED CELL DISTRIBUTION WIDTH 13.4 % 12.1-15.2 N (test code = RDW) PLATELET COUNT (test code = 270 K/MM3 129-368 N PLT) MEAN PLATELET VOLUME (test code 9.7 fl 7.4-10.4 N = MPV) NEUTROPHIL % (test code = NT%) 55.3 % 43-75 N IMMATURE GRANULOCYTE % (test 0.6 % 0.0-2.0 N code = IG%) LYMPHOCYTE % (test code = LY%) 22.2 % 14-44 N MONOCYTE % (test code = MO%) 19.2 % 4-13 H EOSINOPHIL % (test code = EO%) 1.8 % 0-6 N BASOPHIL % (test code = BA%) 0.9 % 0-2 N NUCLEATED RBC % (test code = 0.0 % 0-1.0 N NRBC%) NEUTROPHIL # (test code = NT#) 4.94 K/mm3 2.0-7.6 N IMMATURE GRANULOCYTE # (test 0.05 x10 3/uL 0-0.03 H code = IG#) LYMPHOCYTE # (test code = LY#) 1.98 K/mm3 1.0-3.8 N MONOCYTE # (test code = MO#) 1.71 K/mm3 0.1-0.8 H EOSINOPHIL # (test code = EO#) 0.16 K/mm3 0.0-0.2 N BASOPHIL # (test code = BA#) 0.08 K/mm3 0.0-0.2 N NUCLEATED RBC # (test code = 0.00 K/mm3 0.0-0.1 N NRBC#) PROTHROMBIN [id number] 06:09:00 Test Item Value Reference Range Interpretation Comments PROTHROMBIN TIME 14.7 SECONDS 9.4-12.7 H PATIENT (test code = PTP) INTERNATIONAL NORMAL 1.3 0.86-1.14 H The INR is to be RATIO (test code = used only for INR) monitoring oral anticoagulantth erap y. INDICATION INR VALUE ---- ---- ---- -------1. Prophylaxis, de ep venous thrombos is, including high risk surgery. 2.0 - 3.0 2. Prophylaxis, deep venous thrombosis, hip surgery, treatm ent for deep venous thrombosis or pulmonary prevention of systemic emboli sm in patients wit h valvular heart disease, atrial fibrillation, tissue heart va lve, or acute myocar dial infarction. 2.0 - 3.0 3. Surfacer al prosthesis hear t valves, recurre nt systemic emboli sm. 3.0 - 4.5 PTT [id number] 06:09:00 Test Item Value Reference Range Interpretation Comments PTT ACTIVATED (test code = APTT) 41.1 SECONDS 26.2-35.4 H GLYCOSYLATED HEMOGLOBIN [id number] 21:29:00 Test Item Value Reference Range Interpretation Comments GLYCOSYLATED 11.0 % 4.8-5.9 H Any condition t hat HEMOGLOBIN (HA1C) shortens e rythocyte (test code = survival or dec reasesmean GLYHGB) erythrocyte age (e.g., recovery from a cute blood loss,hemolytic anemia) will falsely lo wer HGBA1c resultsregardle ss of the method used. HG BA1c results from [facility] HbSS, HbCC, and HbSc must be interpreted with cautiongiven th e pathological pr ocesses, including anemia,increase d red cell turnover, trans fusion requirements, thatadversely i mpact HGBA1c as a mar ker of long-term glycemiccontrol . Alternative for ms of testing such as fructosaminesho uld be considered for these patients. MEAN BLOOD GLUCOSE 269 MG/DL 70-110 H (test code = MBG) - XR CHEST [id number] 20:47:[address] [facility] 1960 Sex: M Patient Name: NOY LEZAMA Unit No: [id number] EXAMS: CPT CODE: [id number] XR CHEST 1V 31451 EXAM: - XR CHEST 1V CLINICAL HISTORY: CVA TECHNIQUE: Single frontal view. COMPARISON: None available. LOCATION: H65 FINDINGS: The trachea appears normal. The mediastinum and cardiac silhouette are within normal limits for size. The lungs are clear. No pleural effusions. Limited evaluation of soft tissues and osseous structures is grossly unremarkable. IMPRESSION: No acute cardiopulmonary process. at 2046 Reported and signed by: Alejo Ramirez MD CC: Joseph Magdaleno; Lev Yanes Jr Technologist: Renetta Ames RT R Transcrpt Date/Tm/Trnsp: 02/03/2022 (2046) [id number] Orig Print D/T: S: 02/03/2022 (2049) [facility] NAME: NOY LEZAMA [id number] [address] PHYS: [place] [address] : 1960 AGE: 61 SEX: M LOC: Z.619 A PHONE #: [phone] EXAM DATE: 02/03/2022 STATUS: ADM IN FAX #: [phone] RADIOLOGY NO: PAGE 1 Signed ReportT3 [id number] 19:30:00 Test Item Value Reference Range Interpretation Comments T3 FREE (test code = T3F) 3.24 PG/ML 2.77-5.27 N GLUCOSE BEDSIDE [id number] 19:18:00 Test Item Value Reference Range Interpretation Comments GLUCOSE BEDSIDE TESTING (test code 176 MG/DL 60-99 H = GLUBED) LIPID PROFILE (CORONARY RISK)2022-02-03 18:16:00 Test Item Value Reference Range Interpretation Comments TRIGLYCERIDES (test 246 MG/DL 150-199 H TRIGLYCE RIDES code = TRIG) REFERENCE RANGE:Normal: < 150 mg/dLBorderline High: 150-199 mg/dLHi gh: 200-499 mg/dLVe ry High: >=500 mg/ dL CHOLESTEROL (test code 318 MG/DL <200 = CHOL) HDL CHOLESTEROL (test 48 MG/DL 40-59 N code = HDL) LIPOPROTEIN LDL (test 199 MG/DL 0-99 H OPTIM AL.........<100 code = LDL) mg/dLNEAR OPTIMAL/ABOVE OPTIMAL........ .100-12 9 mg/dL BORDERL INE HIGH.........13 0-159 mg/dL HIGH.........16 0-189 mg/dL VERY HIGH.........>/ = 190 mg/dL VITAMIN [id number] 18:16:00 Test Item Value Reference Range Interpretation Comments VITAMIN B12 (test code = VITB12) 843 pg/mL 239-931 N THYROID STIMULATING [id number] 18:16:00 Test Item Value Reference Range Interpretation Comments THYROID STIMULATING 5.820 MIU/L 0.465-4.68 H Please b e aware that HORMONE (test code = bias re sults for TSH TSH) may occur forpa tient who are taking Biotin suppleme nts. T4 [id number] 18:13:00 Test Item Value Reference Range Interpretation Comments T4 FREE (test code = T4F) 1.5 NG/DL 0.78-2.19 N AG PROSTATE [id number] 18:13:00 Test Item Value Reference Range Interpretation Comments AG PROSTATE SPECIFIC (test code = 2.6 ng/mL 0.0-4.0 N PSA) GLUCOSE BEDSIDE [id number] 16:30:00 Test Item Value Reference Range Interpretation Comments GLUCOSE BEDSIDE TESTING 185 MG/DL 60-99 H Noti fied Nurse~ (test code = GLUBED) GLUCOSE BEDSIDE [id number] 11:47:00 Test Item Value Reference Range Interpretation Comments GLUCOSE BEDSIDE TESTING 185 MG/DL 60-99 H Noti fied Nurse~ (test code = GLUBED) GLUCOSE BEDSIDE [id number] 09:00:00 Test Item Value Reference Range Interpretation Comments GLUCOSE BEDSIDE TESTING 169 MG/DL 60-99 H Noti fied Nurse~ (test code = GLUBED)
[2022-02-19] MEDS ORDERED: MORPHINE 2 MG/ML SYR ONE (13:51)
[2022-02-19] MEDS ORDERED: NA CHLORIDE 0.9% 500 ML ONE (13:51)
[2022-02-19] MEDS ORDERED: ONDANSETRON 4 MG/2 ML VIAL ONE (13:51)
[2022-02-19 14:36] LABS: Absolute Lymphocytes (CBC) 1.1 K/uL (0.7-4.9); Hematocrit 32.7 % (39.6-49.0); Lymphocytes % 8.9 % (15.3-44.8); MCV 90.5 fL (80-100); MPV 7.5 fL (7.6-11.3); RBC Red Blood Cell Count 3.61 M/uL (4.33-5.43)
[2022-02-19 14:47] LABS: Albumin 3.1 g/dL (3.4-5.0); Bilirubin Total 0.5 mg/dL (0.2-1.0); Potassium 4.3 mmol/L (3.5-5.1); Protein, Total 8.3 g/dL (6.4-8.2)
--- NOTE | 2022-02-19 14:54 | RAD REPORT ---
EXAM DESCRIPTION: CT - Abdomen Pelvis W Contrast - 02/19/2022 2:25 pm CLINICAL HISTORY: lower abdominal pain COMPARISON: <Comparisons>none TECHNIQUE: Biphasic, helical CT imaging of the abdomen and pelvis was performed following 100 ml non -ionic IV contrast. No oral contrast administered. All CT scans are performed using dose optimization technique as appropriate and may include automated exposure control or mA/KV adjustment according to patient size. FINDINGS: No suspicious findings in the lung bases. The liver, spleen, and pancreas show no suspicious findings. Gallbladder and biliary tree are also wi thout suspicious finding. Symmetric renal function is seen with no hydronephrosis or suspicious renal mass. No pyelonephritis o r acute parenchymal process. Small cyst is present in the posterior mid left kidney. Cortical thinnin g is present in the posterior upper pole right kidney. This may be an ischemic insult. The patient gomez s dense renal artery calcifications. No adrenal abnormalities. No urinary bladder abnormality. No gastric dilatation gastric wall thickening. No acute small bowel finding. No acute appendicitis fi ndings. Colon is tortuous and redundant. Areas of large stool volume are scattered in the colon. Mid sigmoid is dilated to 7 cm diaz large stool volume. Distal rectum is dilated to 7 cm also by large s tool volume. No acute colon process suspected. No free air, free fluid or inflammatory stranding. No hernia, mass or bulky lymphadenopathy. No suspicious bony findings. Prominent vascular calcifications are present. IMPRESSION: Contrast enhanced CT abdomen and pelvis showing no acute or emergent finding. Large stool volume in the sigmoid colon and rectum distends the large intestine to 7 cm.
[2022-02-19] MEDS ORDERED: LACTULOSE 20 GM/30 ML UCUP ONE (16:00)
[2022-02-19] MEDS ORDERED: MINERAL OIL ENEMA 135 ML BTL PR ONE (16:42)
--- NOTE | 2022-02-19 16:53 | ER ---
Nurse's Notes [facility] Name: Thom Wright Age: 61 yrs Sex: Male : 1960 Arrival Date: 02/19/2022 Time: 13:03 Bed 4 Private MD: Diagnosis: Constipation Presentation: 02/19 13:11 Chief complaint: EMS states: Toned out for abdominal pain, last BM 3 weeks ago; jl7 decreased urinary output x 3 days, recently discharged from [facility] post CVA x 3 with left sided deficits. Coronavirus screen: At this time, the client does not indicate any symptoms associated with coronavirus-19. Ebola Screen: No symptoms or risks identified at this time. Initial Sepsis Screen: Does the patient meet any 2 criteria? No. Patient's initial sepsis screen is negative. Does the patient have a suspected source of infection? No. Patient's initial sepsis screen is negative. Risk Assessment: Do you want to hurt yourself or someone else? Patient reports no desire to harm self or others. Onset of symptoms is unknown. Care prior to arrival: IV initiated. 20 GA, in the right antecubital area. 13:11 Method Of Arrival: EMS: [facility] jl7 13:11 Acuity: SONIA 3 jl7 Triage Assessment: 13:15 General: Appears in no apparent distress. uncomfortable, Behavior is calm, cooperative, jl7 appropriate for age. Pain: Complains of pain in abdomen. GI: Abdomen is round distended, Last BM was January 29, 2022. : Reports decreased output. Historical: - Allergies: 13:15 NKDA; jl7 - PMHx: 13:15 Hypertensive disorder; Diabetes mellitus; Cerebrovascular accident; jl7 - Immunization history:: Client reports receiving the 2nd dose of the Covid vaccine. - Social history:: Smoking status: Patient reports the use of cigarette tobacco products, smokes one pack cigarettes per day. Patient uses street drugs, marijuana. Screenin:40 Abuse screen: Denies threats or abuse. Denies injuries from another. Nutritional hb screening: No deficits noted. Tuberculosis screening: No symptoms or risk factors identified. Fall Risk Total Green Fall Scale indicates Low Risk Score (25-44 pts). Fall prevention measures have been instituted. Side Rails Up X 2 Frequent Obs/Assesments occuring As available Patient and Family Educated on Fall Prevention Program and strategies. Assessment: 13:45 General: Appears in no apparent distress. Behavior is calm, cooperative. Pain: Pain hb currently is 8 out of 10 on a pain scale. Neuro: Level of Consciousness is awake, alert, obeys commands, Oriented to person, place, time, situation. Cardiovascular: Patient's skin is warm and dry. Respiratory: Respiratory effort is even, unlabored, Respiratory pattern is regular, symmetrical. GI: Abdomen is obese. : No signs and/or symptoms were reported regarding the genitourinary system. 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 EENT: No signs and/or symptoms were reported regarding the EENT system. Derm: Skin is pink, warm \\T\\ dry. Musculoskeletal: No signs and/or symptoms reported regarding the musculoskeletal system. 14:45 Reassessment: Patient appears in no apparent distress at this time. Patient and/or hb family updated on plan of care and expected duration. Pain level reassessed. Patient is alert, oriented x 3, equal unlabored respirations, skin warm/dry/pink. 15:45 Reassessment: Patient appears in no apparent distress at this time. Patient and/or hb family updated on plan of care and expected duration. Pain level reassessed. Patient is alert, oriented x 3, equal unlabored respirations, skin warm/dry/pink. 16:57 Reassessment: Pt states "I'll just manage this at home." Pt does not want to attempt a jl7 BM at the hospital, ERP notified. 17:13 Reassessment: Awaiting EMS for transportation. [facility] 17:45 Reassessment: EMS at bedside to transport pt home. 7 Vital Signs: 13:11 BP 96 / 57; Pulse 89; Resp 12; Temp 97.2; Pulse Ox 92% on R/A; Weight 104.33 kg; Height jl7 6 ft. 0 in. (182.88 cm); 14:40 BP 154 / 68; Pulse 86; Resp 17; Pulse Ox 98% on R/A; hb 15:48 BP 144 / 67; Pulse 89; Resp 15; Pulse Ox 99% ; hb 16:57 BP 138 / 93; Pulse 80; Resp 15; Pulse Ox 98% ; jl7 13:11 Body Mass Index 31.19 (104.33 kg, 182.88 cm) [facility] ED Course: 13:03 Patient arrived in ED. eb 13:11 Gelacio Zhou, RN is Primary Nurse. jl7 13:13 [facility] j[facility] 13:13 Sobeida Clay MD is Attending Physician. jmm 13:15 Triage completed. jl7 13:15 Arm band placed on right wrist. jl7 13:50 Inserted saline lock: 20 gauge in right antecubital area, using aseptic technique. hb 13:50 Initial lab(s) drawn, by ED staff, sent to lab. EKG done, by ED staff, reviewed by Jim LY. 13:50 No provider procedures requiring assistance completed. jl7 14:27 CT Abd/Pelvis - IV Contrast Only In Process Unspecified. EDMS 14:40 Patient has correct armband on for positive identification. hb 17:45 IV discontinued, intact, bleeding controlled, No redness/swelling at site. Pressure jl7 dressing applied. Administered Medications: 14:17 Drug: morphine 2 mg Route: IVP; Infused Over: 4 mins; Site: right antecubital; iw 14:45 Follow up: Response: No adverse reaction; Pain is decreased jl7 14:17 Drug: Zofran (Ondansetron) 4 mg Route: IVP; Site: right antecubital; iw 16:56 Follow up: Response: No adverse reaction jl7 15:36 Not Given (None in the hospitall): Magnesium Citrate Liquid 300 ml PO once jl7 15:59 Drug: NS 0.9% 500 ml Route: IV; Rate: bolus; Site: right upper arm; jl7 16:56 Follow up: Response: No adverse reaction; IV Status: Completed infusion; IV Intake: jl7 500ml 15:59 Drug: Lactulose 10 grams Volume: 15 ml; Route: PO; jl7 16:56 Follow up: Response: No adverse reaction jl7 16:40 Drug: Mineral Oil Enema 118 ml Route: AL; jl7 16:56 Follow up: Response: No adverse reaction jl7 Medication: 14:40 VIS not applicable for this client. hb Intake: 16:56 IV: 500ml; Total: 500ml. jl7 Outcome: 16:52 Discharge ordered by . jmm 17:45 Discharged to home via ambulance. jl7 17:45 Condition: stable 17:45 Discharge instructions given to patient, Instructed on discharge instructions, follow up and referral plans. Demonstrated understanding of instructions, follow-up care. 18:14 Patient left the ED. jl7 Signatures: Dispatcher [employer] Jim Mead PA PA jmm Williams, Irene RN Carrie Siddiqi RN RN hb Leal, Jahala, RN RN jl7 Botello, Elizabeth eb
--- NOTE | 2022-02-19 16:53 | EDPHYS ---
Physician Documentation [facility] Name: Thom Wright Age: 61 yrs Sex: Male : 1960 Arrival Date: 02/19/2022 Time: 13:03 Bed 4 Private MD: ED Physician Sobeida Clay HPI: 02/19 13:17 This 61 yrs old Male presents to ER via EMS with complaints of Abdominal Pain. jmm 13:17 The patient presents with abdominal pain. Onset: The symptoms/episode began/occurred jmm gradually. The symptoms do not radiate. Associated signs and symptoms: Pertinent positives: constipation. The symptoms are described as achy. Modifying factors: The symptoms are alleviated by nothing, the symptoms are aggravated by nothing. The patient has not experienced similar symptoms in the past. Historical: - Allergies: 13:15 NKDA; jl7 - PMHx: 13:15 Hypertensive disorder; Diabetes mellitus; Cerebrovascular accident; jl7 - Immunization history:: Client reports receiving the 2nd dose of the Covid vaccine. - Social history:: Smoking status: Patient reports the use of cigarette tobacco products, smokes one pack cigarettes per day. Patient uses street drugs, marijuana. ROS: 13:17 Constitutional: Negative for fever, chills, and weight loss, Cardiovascular: Negative jmm for chest pain, palpitations, and edema, Respiratory: Negative for shortness of breath, cough, wheezing, and pleuritic chest pain. 13:17 Abdomen/GI: Positive for abdominal pain. 13:17 All other systems are negative. Exam: 13:17 Constitutional: This is a well developed, well nourished patient who is awake, alert, jmm and in no acute distress. Head/Face: atraumatic. Eyes: EOMI, no conjunctival erythema appreciated ENT: Moist Mucus Membranes Neck: Trachea midline, Supple Chest/axilla: Normal chest wall appearance and motion. Cardiovascular: Regular rate and rhythm. No edema appreciated Respiratory: Normal respirations, no respiratory distress appreciated 13:17 Skin: General appearance color normal Neuro: Awake and alert 13:17 Abdomen/GI: Inspection: abdomen appears normal, Bowel sounds: normal, Palpation: soft, mild abdominal tenderness, in the umbilical area, right lower quadrant and left lower quadrant. 13:17 Psych: Behavior/mood is pleasant, cooperative. Vital Signs: 13:11 BP 96 / 57; Pulse 89; Resp 12; Temp 97.2; Pulse Ox 92% on R/A; Weight 104.33 kg; Height 7 6 ft. 0 in. (182.88 cm); 14:40 BP 154 / 68; Pulse 86; Resp 17; Pulse Ox 98% on R/A; hb 15:48 BP 144 / 67; Pulse 89; Resp 15; Pulse Ox 99% ; hb 16:57 BP 138 / 93; Pulse 80; Resp 15; Pulse Ox 98% ; jl7 13:11 Body Mass Index 31.19 (104.33 kg, 182.88 cm) 7 MDM: 13:17 Patient medically screened. [facility] 16:48 Data reviewed: vital signs, nurses notes. Counseling: I had a detailed discussion with [facility] the patient and/or guardian regarding: the historical points, exam findings, and any diagnostic results supporting the discharge/admit diagnosis, the need for outpatient follow up, to return to the emergency department if symptoms worsen or persist or if there are any questions or concerns that arise at home. 02/19 13:25 Order name: CBC with Diff; Complete Time: 14:40 [facility] 02/19 13:25 Order name: CMP; Complete Time: 14:48 [facility] 02/19 13:25 Order name: Lipase; Complete Time: 14:48 [facility] 02/19 13:25 Order name: Lactate; Complete Time: 14:52 [facility] 02/19 13:25 Order name: Blood Culture Adult (2) [facility] 02/19 13:25 Order name: IV Saline Lock; Complete Time: 14:40 [facility] 02/19 13:26 Order name: CT Abd/Pelvis - IV Contrast Only; Complete Time: 15:00 [facility] 02/19 13:25 Order name: Labs collected and sent; Complete Time: 14:40 [facility] Administered Medications: 14:17 Drug: morphine 2 mg Route: IVP; Infused Over: 4 mins; Site: right antecubital; iw 14:45 Follow up: Response: No adverse reaction; Pain is decreased [facility] emergency room 14:17 Drug: Zofran (Ondansetron) 4 mg Route: IVP; Site: right antecubital; iw 16:56 Follow up: Response: No adverse reaction 7 15:36 Not Given (None in the hospitall): Magnesium Citrate Liquid 300 ml PO once jl7 15:59 Drug: NS 0.9% 500 ml Route: IV; Rate: bolus; Site: right upper arm; jl7 16:56 Follow up: Response: No adverse reaction; IV Status: Completed infusion; IV Intake: jl7 500ml 15:59 Drug: Lactulose 10 grams Volume: 15 ml; Route: PO; jl7 16:56 Follow up: Response: No adverse reaction jl7 16:40 Drug: Mineral Oil Enema 118 ml Route: WV; jl7 16:56 Follow up: Response: No adverse reaction jl7 Disposition: 02/20 08:16 Co-signature as Attending Physician, Sobeida Clay MD STAFF ATTESTATION STATEMENT: I sd2 was immediately available onsite in the emergency department for consultation in the care of this patient. I did not see or examine this patient. Sobeida Clay MD. Disposition Summary: 02/19/22 16:52 Discharge Ordered Location: Home [facility] Condition: Stable [facility] Diagnosis - Constipation [facility] Followup: [facility] - With: Private Physician - When: 2 - 3 days - Reason: Recheck today's complaints, Continuance of care, Re-evaluation by your physician Discharge Instructions: - Discharge Summary Sheet jm - Constipation, Adult [facility] Forms: - Medication Reconciliation Form [facility] - Thank You Letter [facility] - Antibiotic Education [facility] - Prescription Opioid Use [facility] - SBAR form jl7 Signatures: Dispatcher [employer] EDJim Medina PA PA jmm Williams, Irene, RN RN iw Leal, Jahala, RN RN jl7 Dunlop, Stephanie, MD MD sd2 Corrections: (The following items were deleted from the chart) 02/19 16:56 13:25 Urine Dipstick-Ancillary ordered. ever bello
[2022-02-19 19:03] VITALS: TEMP 97.2
[2022-02-19 19:11] VITALS: BP 138/93; O2SAT 98
== END 2022-02-19 18:14 | disposition home or self-care (01) ==
LOC: ER 13:00
DX: K59.00 Constipation, unspecified (principal); E11.9 Type 2 diabetes mellitus without complications; I10 Essential (primary) hypertension; F17.210 Nicotine dependence, cigarettes, uncomplicated; Z86.73 Personal history of transient ischemic attack (TIA), and cerebral infarction without residual deficits
CPT/HCPCS: 96361; 87040 ×2; 85025; 36415; 83605; 83690; 80053; 74177; 96375; 96374; 99284; Q9967; J2270; J7040; J2405

== ENCOUNTER 2022-03-02 05:37 | Inpatient (IN) | payer OTHER, MEDICARE ==
--- OUTSIDE RECORDS SUMMARY | 2022-03-02 05:40 | XMS REPORT | Continuity of Care Document ---
:1960 Author Organization [facility] Address [address] [place] [address] Dr. Coy [address] [place] [id number] Care Team Providers Name Role Phone Unavailable Unavailable Unavailable Payers Payer Name Policy Type Policy Number Effective Date Expiration Date [facility] [id number] 2022 (MEDICARE 00:00:00 REPLACEMENT HMO) Problems This patient has no known problems. Allergies, Adverse Reactions, Alerts This patient has no known allergies or adverse reactions. Medications This patient has no known medications. Procedures This patient has no known procedures. Encounters Start End Encounter Admission Attending Care Care Encounter Source Date/Time Date/Time Type Type Clinicians Facility Department ID 2022-02-24 2022-02-24 Outpatient [facility] [id number] [facility] 00:00:00 00:00:00 [id number] [facility] Results This patient has no known results.
[2022-03-02] MEDS ORDERED: Meropenem 1000 MG/VIAL IV ONE (06:36)
[2022-03-02] MEDS ORDERED: NA CHLORIDE 0.9% 100 ML ONE (06:37)
[2022-03-02] MEDS ORDERED: NA CHLORIDE 0.9% 1,000 ML ONE (06:37)
[2022-03-02] MEDS ORDERED: FAMOTIDINE 20 MG/2 ML VIAL IV ONE (06:37)
--- NOTE | 2022-03-02 06:47 | ER ---
Nurse's Notes [facility] Name: Thom Wright Age: 61 yrs Sex: Male : 1960 Arrival Date: 03/02/2022 Time: 05:45 Bed 17 Private MD: Diagnosis: Dyspnea;Chest pain, unspecified;Hypoxemia;Cardiomegaly;Systolic (congestive) heart failure Presentation: 03/02 05:48 Chief complaint: EMS states: Toned out for SOB, O2 \T\ 50% on RA , 1 tab nitro + nitro ke1 paste applied by EMS.. Patient was discharged from hospital today. Ebola Screen: No symptoms or risks identified at this time. Initial Sepsis Screen: Does the patient meet any 2 criteria? No. Patient's initial sepsis screen is negative. Does the patient have a suspected source of infection? No. Patient's initial sepsis screen is negative. Risk Assessment: Do you want to hurt yourself or someone else? Patient reports no desire to harm self or others. Onset of symptoms was March 02, 2022 at 05:00. 05:48 Method Of Arrival: EMS: [facility] 05:48 Acuity: SONIA 3 ke1 06:07 Coronavirus screen: Vaccine status: Patient reports being unvaccinated. Care prior to [facility] arrival: Medication(s) given: Albuterol Neb x 1, Atrovent Neb x 1, Nitroglycerin, 0.4 mg SL x 1, NTG paste. Triage Assessment: 06:00 General: Appears in no apparent distress. Behavior is appropriate for age. Pain: Denies [facility] pain. 06:09 GI: Abdomen is distended. [facility] Historical: - Allergies: 05:53 NKDA; ke1 - Home Meds: 06:44 gabapentin 100 mg oral tab [Active]; Amaryl 4 mg Oral tab 1 tab once daily [Active]; kl levothyroxine 50 mcg tab 1 tab once daily [Active]; losartan 100 mg oral tab 1 tab once daily [Active]; tramadol 50 mg Oral tab 1 tab [Active]; Keflex 500 mg Oral cap 1 cap every 12 hours [Active]; - PMHx: 06:04 Diabetes mellitus; stroke ( deficit left side paralysis); ke1 06:48 Hypertensive disorder; Peripheral vascular disease; Pancreatitis; kl - PSHx: 06:48 Carotid endarterectomy; Femoral bypass; kl - Immunization history:: Adult Immunizations not immunized. - Social history:: Smoking status: Patient reports the use of cigarette tobacco products, smokes one pack cigarettes per day. - Family history:: not pertinent. Screenin:05 Abuse screen: Denies threats or abuse. Nutritional screening: No deficits noted. ke1 Tuberculosis screening: No symptoms or risk factors identified. Fall Risk No fall in past 12 months (0 pts). No secondary diagnosis (0 pts). IV access (20 points). Ambulatory Aid- None/Bed Rest/Nurse Assist (0 pts). Gait- Normal/Bed Rest/Wheelchair (0 pts). Assessment: 06:31 General: Appears in no apparent distress. comfortable, Behavior is calm, cooperative, kl appropriate for age. Pain: Denies pain. Neuro: No deficits noted. Cardiovascular: No deficits noted. Rhythm is sinus rhythm. Respiratory: Airway is patent Trachea midline Breath sounds are diminished bilaterally. Parent/caregiver reports the patient having shortness of breath at rest woke up this am with SOB. GI: No deficits noted. No signs and/or symptoms were reported involving the gastrointestinal system. : No deficits noted. No signs and/or symptoms were reported regarding the genitourinary system. EENT: No deficits noted. No signs and/or symptoms were reported regarding the EENT system. Derm: Bruising that is dark purple, on bilateral upper extremities. 07:15 Reassessment: lab paged to assist with blood culture draw. jd3 07:16 General: Appears in no apparent distress. comfortable, Behavior is calm, cooperative, jd3 appropriate for age. Pain: Complains of pain in right hip Quality of pain is described as aching. Neuro: Celis Agitation-Sedation Scale (RASS): -1 Drowsy Level of Consciousness is awake, alert, obeys commands, Oriented to person, place, time, situation. Cardiovascular: Heart tones present Capillary refill < 3 seconds Patient's skin is warm and dry. Rhythm is regular. Respiratory: Reports shortness of breath cough that is non-productive, hacking, Airway is patent Respiratory effort is even, unlabored, Respiratory pattern is regular, symmetrical, Breath sounds are diminished bilaterally. GI: No signs and/or symptoms were reported involving the gastrointestinal system. : No signs and/or symptoms were reported regarding the genitourinary system. EENT: No signs and/or symptoms were reported regarding the EENT system. Derm: Bruising that is dark purple, on right arm and left arm. 08:45 Reassessment: Patient appears in no apparent distress at this time. No changes from jd3 previously documented assessment. Patient and/or family updated on plan of care and expected duration. Pain level reassessed. Patient is alert, oriented x 3, equal unlabored respirations, skin warm/dry/pink. 20:52 Reassessment: report given to hannah. mayer Vital Signs: 05:48 BP 94 / 63; Pulse 95; Resp 20; Temp 98.4; Pulse Ox 93% on 4 lpm NC; Weight 90.72 kg; ke1 Height 6 ft. (182.88 cm); Pain 0/10; 06:10 BP 112 / 61; Pulse 87; ke1 07:18 BP 136 / 84; Pulse 80; Resp 17; Pulse Ox 100% on 3.5 lpm NC; jd3 08:45 BP 138 / 78; Pulse 82; Resp 19; Pulse Ox 100% on 3.5 lpm NC; jd3 05:48 Body Mass Index 27.12 (90.72 kg, 182.88 cm) ke1 ED Course: 05:45 Patient arrived in ED. onel 05:47 Glenn Brantley, SALLIE is Primary Nurse. ke1 05:53 Triage completed. ke1 06:05 Maintain EMS IV. Site clean \T\ dry. Gauge \T\ site: 20 G L AC. ke 1 06:06 Bed in low position. ke1 06:22 Andrew Trinidad MD is Attending Physician. onel 06:46 Brady Johnson MD is Hospitalizing Provider. onel 06:59 XRAY Chest (1 view) In Process Unspecified. EDMS 07:05 Dakota Abreu, SALLIE is Primary Nurse. jd3 07:06 Arm band placed on. jd3 08:00 Inserted saline lock: 22 gauge in left antecubital area, using aseptic technique. jl7 08:00 IV discontinued, intact, bleeding controlled, No redness/swelling at site. jl7 08:16 CT Chest For PE Angio In Process Unspecified. EDMS 08:16 CT Abd/Pelvis - IV Contrast Only In Process Unspecified. EDMS 08:17 No provider procedures requiring assistance completed. Patient admitted, IV remains in jl7 place. intact, No redness/swelling at site. 08:54 Attending Physician role handed off by Andrew Trinidad MD ms3 08:54 Sandro Gonzalez DO is Attending Physician. ms3 Administered Medications: 06:38 Drug: Pepcid (famotidine) 20 mg Route: IVP; Site: left antecubital; ke1 07:30 Follow up: Response: No adverse reaction jd3 07:04 Not Given (Duplicate Order): NS 0.9% 1000 ml IV at 1 bolus Per protocol; 1000 mL bolus onel 07:04 Not Given (Duplicate Order): NS 0.9% 1000 ml IV at 125 ml/hr continuous onel 07:44 Drug: Aspirin 81 mg Route: PO; jd3 07:59 Follow up: Response: No adverse reaction jd3 07:44 Drug: Lasix (furosemide) 40 mg Route: IVP; Site: left antecubital; jd3 07:59 Follow up: Response: No adverse reaction jd3 10:40 Drug: Meropenem 1 grams Route: IV; Rate: per protocol; Site: left antecubital; jd3 11:10 Follow up: Response: No adverse reaction; IV Status: Completed infusion jd3 Medication: 07:06 VIS not applicable for this client. jd3 Outcome: 06:47 Decision to Hospitalize by Provider. onel 08:18 Admitted to ER Hold. Please see [facility] for further documentation. jl7 08:18 Condition: stable 08:18 Discharge instructions given to patient, Instructed on the need for admit, Demonstrated understanding of instructions. 21:43 Patient left the ED. as6 Signatures: Dispatcher [employer] EDMS Lottie Jacome RN RN kl Anderson, Corey, MD MD cha Leal, Jahala, RN RN jl7 Dakota Abreu RN RN jd3 Sandro Gonzalez DO DO ms3 Paul Asher RN RN as6 Glenn Brantley RN RN ke1 Adithya Garrido RN RN ja4 Corrections: (The following items were deleted from the chart) 06:04 05:48 Chief complaint: EMS states: Toned out for SOB, O2 \T\ 50% on RA , 1 tab nitro + ke1 nitro paste applied by EMS. ke1 08:44 07:16 Respiratory: Reports shortness of breath Airway is patent Respiratory effort is jd3 even, unlabored, Respiratory pattern is regular, symmetrical, Breath sounds are diminished bilaterally. jd3
--- NOTE | 2022-03-02 06:48 | EDPHYS ---
Physician Documentation [facility] Name: Thom Wright Age: 61 yrs Sex: Male : 1960 Arrival Date: 03/02/2022 Time: 05:45 Bed 17 Private MD: ED Physician Sandro Gonzalez HPI: 03/02 06:40 This 61 yrs old Male presents to ER via EMS with complaints of cp and sob, onel hypoxia. 06:40 The patient has shortness of breath at rest, with light activity. Onset: The onel symptoms/episode began/occurred just prior to arrival, this morning. Duration: The symptoms are continuous, and are steadily getting worse. The patient's shortness of breath has no apparent modifying factors. The patient's shortness of breath is aggravated by nothing, is alleviated by nothing. The patient or guardian reports chest pain that is located primarily in the substernal area, anterior chest wall, left. Onset: just prior to arrival, this morning. dc yesterday. The pain does not radiate. Severity of symptoms: At their worst the symptoms were moderate in the emergency department the symptoms are unchanged. Historical: - Allergies: 05:53 NKDA; ke1 - Home Meds: 06:44 gabapentin 100 mg oral tab [Active]; Amaryl 4 mg Oral tab 1 tab once daily [Active]; kl levothyroxine 50 mcg tab 1 tab once daily [Active]; losartan 100 mg oral tab 1 tab once daily [Active]; tramadol 50 mg Oral tab 1 tab [Active]; Keflex 500 mg Oral cap 1 cap every 12 hours [Active]; - PMHx: 06:04 Diabetes mellitus; stroke ( deficit left side paralysis); ke1 06:48 Hypertensive disorder; Peripheral vascular disease; Pancreatitis; kl - PSHx: 06:48 Carotid endarterectomy; Femoral bypass; kl - Immunization history:: Adult Immunizations not immunized. - Social history:: Smoking status: Patient reports the use of cigarette tobacco products, smokes one pack cigarettes per day. - Family history:: not pertinent. ROS: 06:40 Constitutional: Negative for fever, chills, and weight loss, Eyes: Negative for injury, onel pain, redness, and discharge, ENT: Negative for injury, pain, and discharge, Neck: Negative for injury, pain, and swelling, Cardiovascular: Negative for chest pain, palpitations, and edema, Abdomen/GI: Negative for abdominal pain, nausea, vomiting, diarrhea, and constipation, Back: Negative for injury and pain, : Negative for injury, bleeding, discharge, and swelling, MS/Extremity: Negative for injury and deformity, Skin: Negative for injury, rash, and discoloration, Neuro: Negative for headache, weakness, numbness, tingling, and seizure, Psych: Negative for depression, anxiety, suicide ideation, homicidal ideation, and hallucinations, Allergy/Immunology: Negative for hives, rash, and allergies, Endocrine: Negative for neck swelling, polydipsia, polyuria, polyphagia, and marked weight changes, Hematologic/Lymphatic: Negative for swollen nodes, abnormal bleeding, and unusual bruising. 06:40 Respiratory: Positive for cough, shortness of breath, at rest. Exam: 06:40 Constitutional: This is a well developed, well nourished patient who is awake, alert, onel and in no acute distress. Head/Face: Normocephalic, atraumatic. Eyes: Pupils equal round and reactive to light, extra-ocular motions intact. Lids and lashes normal. Conjunctiva and sclera are non-icteric and not injected. Cornea within normal limits. Periorbital areas with no swelling, redness, or edema. ENT: Nares patent. No nasal discharge, no septal abnormalities noted. Tympanic membranes are normal and external auditory canals are clear. Oropharynx with no redness, swelling, or masses, exudates, or evidence of obstruction, uvula midline. Mucous membranes moist. Neck: Trachea midline, no thyromegaly or masses palpated, and no cervical lymphadenopathy. Supple, full range of motion without nuchal rigidity, or vertebral point tenderness. No Meningismus. Chest/axilla: Normal chest wall appearance and motion. Nontender with no deformity. No lesions are appreciated. Cardiovascular: Regular rate and rhythm with a normal S1 and S2. No gallops, murmurs, or rubs. Normal PMI, no JVD. No pulse deficits. Respiratory: Lungs have equal breath sounds bilaterally, clear to auscultation and percussion. No rales, rhonchi or wheezes noted. No increased work of breathing, no retractions or nasal flaring. Abdomen/GI: Soft, non-tender, with normal bowel sounds. No distension or tympany. No guarding or rebound. No evidence of tenderness throughout. Back: No spinal tenderness. No costovertebral tenderness. Full range of motion. Male : Normal genitalia with no discharge or lesions. Skin: Warm, dry with normal turgor. Normal color with no rashes, no lesions, and no evidence of cellulitis. MS/ Extremity: Pulses equal, no cyanosis. Neurovascular intact. Full, normal range of motion. Neuro: Awake and alert, GCS 15, oriented to person, place, time, and situation. Cranial nerves II-XII grossly intact. Motor strength 5/5 in all extremities. Sensory grossly intact. Cerebellar exam normal. Normal gait. Psych: Awake, alert, with orientation to person, place and time. Behavior, mood, and affect are within normal limits. 06:46 ECG was reviewed by the Attending Physician. [facility] Vital Signs: 05:48 BP 94 / 63; Pulse 95; Resp 20; Temp 98.4; Pulse Ox 93% on 4 lpm NC; Weight 90.72 kg; ke1 Height 6 ft. (182.88 cm); Pain 0/10; 06:10 BP 112 / 61; Pulse 87; ke1 07:18 BP 136 / 84; Pulse 80; Resp 17; Pulse Ox 100% on 3.5 lpm NC; jd3 08:45 BP 138 / 78; Pulse 82; Resp 19; Pulse Ox 100% on 3.5 lpm NC; jd3 05:48 Body Mass Index 27.12 (90.72 kg, 182.88 cm) ke1 MDM: 06:23 Patient medically screened. [facility] 06:42 Differential diagnosis: Anxiety Reaction asthma, Bronchitis CHF exacerbation. onel Differential diagnosis: Anemia Chronic Obstructive Pulmonary Disease anxiety, coronary artery disease congestive heart failure Cholelithiasis costochondritis, gastritis, hiatal hernia, pneumonia, Pneumothorax pulmonary edema, Pulmonary Embolism reactive airway disease, Unstable Angina. Antibiotic administration: merrem. Differential Diagnosis. HEART Score: History: Moderately Suspicious (1), ECG: Significant ST-deviation (2), Risk Factors: > or = 3 Risk factors for atherosclerotic disease (2), [Hypercholesterolemia] [Hypertension] [DM] [+ Family HX] [Obesity] Troponin: < or = 1 x Normal Limit (0). The patient was given aspirin in the Emergency Department. The patient's Wells Deep Vein Thrombosis Score was calculated as follows: Total Score: 0. This patient was found to be at low risk for a deep vein thrombosis by using the Well's assessment criteria Imm/Surg in last 4 wks (1.5 Pts) Total Score:. The patient's pulmonary embolism risk score was calculated as follows: the patients heart rate is greater than 100 beats per minute (1.5 Pts) patient has experienced immobilization or surgery in the last four weeks (1.5 Pts) Total Score: 3-6 points. This patient was found to be at moderate risk for a pulmonary embolism by using the Well's assessment criteria the patients heart rate is greater than 100 beats per minute (1.5 Pts) Total Score: 0-2 points. This patient was found to be at low risk for a pulmonary embolism by using the Well's assessment criteria. SANTA Risk Score: 1 - Three or more CAD risk factors, 1- Known CAD, 1 - ASA use in past 7 days, 1 - Elevated Cardiac Markers. Immunization status: Influenza vaccine: within last 5 years. Data reviewed: vital signs, nurses notes, EMS record, lab test result(s), EKG, radiologic studies, CT scan, plain films. 08:54 Counseling: I had a detailed discussion with the patient and/or guardian regarding: the ms3 historical points, exam findings, and any diagnostic results supporting the discharge/admit diagnosis, lab results, radiology results, the need for further work-up and treatment in the hospital. ED course: Discussed case with UGO Posada, and he accepts patient on behalf of Dr Johnson. Cardiology paged for elevated troponin. 03/02 06:16 Order name: Basic Metabolic Panel; Complete Time: 08: [facility] 03/02 06:16 Order name: CBC with Diff; Complete Time: 19:00 [facility] 03/02 06:16 Order name: LFT's; Complete Time: : [facility] 03/02 06:16 Order name: Magnesium; Complete Time: : [facility] 03/02 06:16 Order name: NT PRO-BNP; Complete Time: : [facility] 03/02 06:16 Order name: PT-INR; Complete Time: 07:50 [facility] 03/02 06:16 Order name: Troponin HS; Complete Time: 08: [facility] 03/02 06:16 Order name: SARS-COV-2 RT PCR (Document "Date of Onset" if Symptomatic); Complete Time: [facility] 08:55 03/02 06:16 Order name: Blood Culture Adult (2) [facility] 03/02 06:16 Order name: Lipase; Complete Time: 08:26 [facility] 03/02 06:16 Order name: Lactate; Complete Time: 08:26 [facility] 03/02 06:16 Order name: Procalcitonin; Complete Time: 08:26 [facility] 03/02 09:02 Order name: CBC Smear Scan; Complete Time: 19:00 [facility] 03/02 10:42 Order name: Phosphorus; Complete Time: 19:00 [facility] 03/02 06:16 Order name: XRAY Chest (1 view); Complete Time: 19:00 [facility] 03/02 06:52 Order name: CT Chest For PE Angio; Complete Time: 08:51 [facility] 03/02 06:52 Order name: CT Abd/Pelvis - IV Contrast Only; Complete Time: 08:51 [facility] 03/02 07:05 Order name: Echo w/ Doppler [facility] 03/02 10:42 Order name: T4 Free; Complete Time: 19:00 [facility] 03/02 10:42 Order name: Magnesium; Complete Time: 19:00 [facility] 03/02 10:42 Order name: Thyroid Stimulating Hormone; Complete Time: 19:00 [facility] 03/02 11:29 Order name: Troponin High Sensitivity; Complete Time: 19:00 [facility] 03/02 12:45 Order name: Glucose, Ancillary Testing; Complete Time: 19:00 [facility] 03/02 14:40 Order name: Protime (+INR); Complete Time: 19:00 [facility] 03/02 14:40 Order name: PTT, Activated Partial Thromb; Complete Time: 19:00 [facility] 03/02 14:44 Order name: CBC with Automated Diff; Complete Time: 19:00 [facility] 03/02 14:45 Order name: Troponin High Sensitivity; Complete Time: 19:00 [facility] 03/02 19:10 Order name: Glucose, Ancillary Testing; Complete Time: 19:39 [facility] 03/02 21:07 Order name: PTT, Activated Partial Thromb [facility] 03/02 21:15 Order name: Troponin High Sensitivity [facility] 03/02 06:16 Order name: EKG; Complete Time: 06:16 [facility] 03/02 06:16 Order name: Cardiac monitoring; Complete Time: 07:08 [facility] 03/02 06:16 Order name: EKG - Nurse/Tech; Complete Time: 06:25 onel 03/02 06:16 Order name: IV Saline Lock; Complete Time: 07:07 onel 03/02 06:16 Order name: Labs collected and sent; Complete Time: 08:16 onel 03/02 06:16 Order name: O2 Per Protocol; Complete Time: 07:07 onel 03/02 06:16 Order name: O2 Sat Monitoring; Complete Time: 07:07 onel 03/02 08:34 Order name: Repeat Cardiac Enzymes at: Every 3 hours x 3; Complete Time: 08:34 ms3 EC:46 Rate is 98 beats/min. QRS [place] is Normal. MT interval is normal. QRS interval is onel normal. QT interval is normal. No Q waves. T waves are Normal. No ST changes noted. Clinical impression: Abnormal EKG without significant change and No evidence of ischemia. Interpreted by me. Reviewed by me. Administered Medications: 06:38 Drug: Pepcid (famotidine) 20 mg Route: IVP; Site: left antecubital; ke1 07:30 Follow up: Response: No adverse reaction jd3 07:04 Not Given (Duplicate Order): NS 0.9% 1000 ml IV at 1 bolus Per protocol; 1000 mL bolus onel 07:04 Not Given (Duplicate Order): NS 0.9% 1000 ml IV at 125 ml/hr continuous onel 07:44 Drug: Aspirin 81 mg Route: PO; jd3 07:59 Follow up: Response: No adverse reaction jd3 07:44 Drug: Lasix (furosemide) 40 mg Route: IVP; Site: left antecubital; jd3 07:59 Follow up: Response: No adverse reaction jd3 10:40 Drug: Meropenem 1 grams Route: IV; Rate: per protocol; Site: left antecubital; jd3 11:10 Follow up: Response: No adverse reaction; IV Status: Completed infusion jd3 Disposition: 06:42 Critical Care: not applicable. onel Disposition Summary: 03/02/22 06:47 Hospitalization Ordered Hospitalization Status: Observation onel Provider: Brady Johnson cha Condition: Fair onel Problem: new onel Symptoms: have improved onel Bed/Room Type: Standard onel Location: Telemetry/MedSurg (observation)(03/02/22 19:57) cg Room Assignment: 421(08/31/22 19:57) cg Diagnosis - Dyspnea onel - Chest pain, unspecified onel - Hypoxemia onel - Cardiomegaly onel - Systolic (congestive) heart failure onel Forms: - Medication Reconciliation Form onel - SBAR form onel Signatures: Dispatcher [employer] EDLottie Cota, RN RN Andrew Gaspar MD MD cha Nieto, Roman, MD MD rn Garcia, Cindy, RN RN cg Davies, Jonathon, RN RN jd3 Sandro Gonzalez DO DO ms3 Glenn Brantley RN RN ke1 Yarelis Jacome RN RN ll4 Corrections: (The following items were deleted from the chart) 06:47 Telemetry/MedSurg (observation) onel [id number] 06:47 onel ll4 07:58 [facility] ER HOLD ll4 cg 07:58 ERHOLD- ll4 cg
[2022-03-02] MEDS ORDERED: ASPIRIN 81 MG CHEWABLE TABLET ONE ×2 (07:43→20:32)
[2022-03-02] MEDS ORDERED: FUROSEMIDE 40 MG/4 ML VIAL ONE (07:43)
[2022-03-02 07:47] LABS: Absolute Lymphocytes (CBC) 0.5 K/uL (0.7-4.9); Hematocrit 27.4 % (39.6-49.0); Lymphocytes % 3.9 % (15.3-44.8); MCV 93.2 fL (80-100); MPV 7.6 fL (7.6-11.3); Protime INR 1.1; RBC Red Blood Cell Count 2.94 M/uL (4.33-5.43)
[2022-03-02 08:10] LABS: ALT/SGPT 16 U/L (12-78); AST/SGOT 21 U/L (15-37); Albumin 2.4 g/dL (3.4-5.0); Alkaline Phosphatase 146 U/L (45-117); BUN Blood Urea Nitrogen 20 mg/dL (7-18); Bicarbonate 26 mmol/L (21-32); Bilirubin Total 0.3 mg/dL (0.2-1.0); Glomerular Filtration Rate 81 ml/min (=/>90); Glucose Level 309 mg/dL (74-106); Lipase 1203 U/L (73-393); Magnesium 1.7 mg/dL (1.8-2.4); NT PRO-BNP 3651 pg/mL (<125); Potassium 4.3 mmol/L (3.5-5.1); Protein, Total 7.1 g/dL (6.4-8.2); Sodium Level 135 mmol/L (136-145)
[2022-03-02 08:12] LABS: Bilirubin Direct < 0.1 mg/dL (0-0.2)
[2022-03-02 08:16] LABS: Troponin High Sensitivity 1515.5 pg/mL (<58.9)
--- NOTE | 2022-03-02 08:39 | RAD REPORT ---
EXAM DESCRIPTION: CTAbdomen Pelvis W Contrast - 03/02/2022 8:15 am CLINICAL HISTORY: Abdominal pain. Abdominal pain, acute, nonlocalized COMPARISON: Abdomen Pelvis W Contrast dated 02/26/2022; Abdomen Pelvis W Contrast dated 02/19/2022 TECHNIQUE: Biphasic CT imaging of the abdomen and pelvis was performed with 100 ml non-ionic IV cont rast. All CT scans are performed using dose optimization technique as appropriate and may include automated exposure control or mA/KV adjustment according to patient size. FINDINGS: Linear opacities are present in both lung bases, greater on the right.Small bilateral pleu ral effusions. The liver, spleen, pancreas, adrenal glands and kidneys are within normal limits. No bowel obstruction, free air, free fluid or abscess. Moderate stool volume throughout the rectum. A ortoiliac atherosclerosis. The appendix is normal. No evidence of significant lymphadenopathy. Moderate lumbosacral degenerative changes. IMPRESSION: No acute intra-abdominal or pelvic finding. Mild atelectasis in both lung bases with small bilateral pleural effusions. Moderate stool volume throughout the colon.
--- NOTE | 2022-03-02 08:47 | RAD REPORT ---
EXAM DESCRIPTION: CT - Chest For Pe Angio - 03/02/2022 8:14 am CLINICAL HISTORY: Chest pain. cp COMPARISON: No comparisons TECHNIQUE: CT angiogram of the pulmonary arteries was performed with MIP. All CT scans are performed using dose optimization technique as appropriate and may include automated exposure control or mA/KV adjustment according to patient size. FINDINGS: No evidence of pulmonary thromboembolism. No acute aortic finding demonstrated. Mild bilateral ground-glass lung opacities are seen suggesting mild pulmonary edema. There is atelect asis in both lung bases, greater on the right. Small bilateral pleural effusions. No concerning bony finding. IMPRESSION: No evidence of pulmonary thromboembolism. Mild pulmonary edema with bilateral pleural effusions probably represents volume overload or CHF.
--- NOTE | 2022-03-02 08:55 | RAD REPORT ---
EXAM DESCRIPTION: RAD - Chest Single View - 03/02/2022 6:57 am CLINICAL HISTORY: Cough Chest pain. COMPARISON: Chest Single View dated 01/25/2022; Chest Single View dated 01/24/2022; Chest Single View dated 01/22/2022 FINDINGS: Portable technique limits examination quality. Bilateral pulmonary opacities are again noted, slightly greater on the left, suspicious for pulmonary edema. The heart is moderately enlarged. No displaced fractures. IMPRESSION: Moderate CHF suspected.
[2022-03-02 09:02] LABS: Blood Morphology Comment NOT SEEN (NOT SEEN); Platelet Estimate ADEQ; White Blood Cell Scan OK (OK)
[2022-03-02] MEDS ORDERED: ONDANSETRON 4 MG/2 ML VIAL IV PRN (09:18)
[2022-03-02] MEDS ORDERED: ACETAMINOPHEN 500 MG TAB PO PRN (09:18)
--- NOTE | 2022-03-02 09:25 | P.HP ---
Certification for Inpatient Patient admitted to: Observation With expected LOS: <2 Midnights Patient will require the following post-hospital care: None Practitioner: I am a practitioner with admitting privileges, knowledge of patient current condition, hospital course, and medical plan of care. Services: Services provided to patient in accordance with Admission requirements found in Title 42 Section 412.3 of the Code of Federal Regulations <CrystalarsenioJaredflorian Tyler - Last Filed: 03/02/22 18:16> Patient History Date of Service: 03/02/22 Reason for admission: Chest pain and shortness of breath. History of Present Illness: Patient is a 61-year-old male with a past medical history significant for DM 2, CVA with left-sided paralysis, nicotine dependence, HLD, HTN who presents with complaint of chest pain and shortness of breath onset this morning. Patient reported that chest pain is located in the left chest wall. Patient rated pain as 10/10 in severity and described pain as throbbing in quality. Patient indicated that chest pain radiates to his left shoulder. Patient reported associated signs and symptoms of fatigue, weakness and cough. Patient denies any other signs and symptoms. Symptoms are aggravated or relieved by nothing. Patient decided to present to the hospital due to worsening symptoms. - Past Medical/Surgical History Diabetic: Yes -: Diabetes mellitus type 2not insulin-dependent -: Hypertension -: Unknown additional history -: carotid surgery -: CVA x3 Psychosocial/ Personal History: Patient lives at home with his , family - Family History Family History: Reviewed- Non-Contributory - Social History Smoking Status: Current every day smoker Counseled patient to stop smoking for: less than 10 minutes Smoking therapy provided: Yes Patient receptive to therapy: Yes Alcohol use: No CD- Drugs: No Caffeine use: Yes Place of Residence: Home <Juan Antonio Fontana - Last Filed: 03/02/22 18:16> Date of Service: 03/02/22 <Brady Johnson - Last Filed: 03/02/22 19:44> Allergies No Known Allergies Allergy (Unverified 01/22/22 05:27) Home Medications: Amlodipine [Norvasc*] 5 mg PO DAILY 01/22/22 Atorvastatin Calcium 40 mg PO DAILY 01/22/22 Dapagliflozin/Metformin HCl [Xigduo Xr 10 mg-1,000 mg Tab] 1 each PO DAILY 01/22/22 Gabapentin 200 mg PO BID 01/22/22 Glimepiride [Amaryl] 4 mg PO DAILY 01/22/22 Levothyroxine Sodium [Levothyroxine] 50 mcg PO DAILY 01/22/22 Losartan Potassium 100 mg PO DAILY 01/22/22 Tramadol HCl [Ultram] 50 mg PO BID 01/22/22 cilostazoL [Cilostazol] 100 mg PO BID 01/22/22 Cephalexin [Keflex*] 500 mg PO BIDAC 3 Days #6 cap 03/01/22 Review of Systems General: Weakness, Other (Fatigue ) Eyes: Unremarkable ENT: Unremarkable Respiratory: Cough, Shortness of Breath Cardiovascular: Chest Pain Gastrointestinal: Unremarkable Genitourinary: Unremarkable Musculoskeletal: Other (left shoulder pain ) Integumentary: Unremarkable Neurological: Weakness Lymphatics: Unremarkable <Juan Antonio Fontana E - Last Filed: 03/02/22 18:16> Physical Examination - Physical Exam General: Alert, Oriented x3, Mild distress HEENT: Atraumatic, Normocephalic, PERRLA Neck: Supple, 2+ carotid pulse no bruit, JVD not distended Respiratory: Clear to auscultation bilaterally, Diminished Cardiovascular: No edema, Normal pulses, Regular rate/rhythm Capillary refill: <2 Seconds Gastrointestinal: Normal bowel sounds, Soft and benign Integumentary: No rashes, No breakdown, No significant lesion, No tenderness/swelling Neurological: Normal speech, Normal tone, Sensation intact, Abnormal gait Lymphatics: No axilla or inguinal lymphadenopathy - Studies Laboratory Data (last 24 hrs) 03/02/22 07:27: PT 12.1, INR 1.10 03/02/22 07:27: WBC 11.80 H D, Hgb 9.1 L, Hct 27.4 L, Plt Count 298 03/02/22 07:27: Sodium 135 L, Potassium 4.3, BUN 20 H, Creatinine 1.04, Glucose 309 H, Magnesium 1.7 L, Total Bilirubin 0.3, AST 21, ALT 16, Alkaline Phosphatase 146 H, Lipase 1203 H <Juan Antonio Fontana - Last Filed: 03/02/22 18:16> - Studies Laboratory Data (last 24 hrs) 03/02/22 07:27: Phosphorus 3.9, Magnesium 1.8 03/02/22 07:27: PT 12.1, INR 1.10 03/02/22 07:27: WBC 11.80 H D, Hgb 9.1 L, Hct 27.4 L, Plt Count 298 03/02/22 07:27: Sodium 135 L, Potassium 4.3, BUN 20 H, Creatinine 1.04, Glucose 309 H, Magnesium 1.7 L, Total Bilirubin 0.3, AST 21, ALT 16, Alkaline Phosphatase 146 H, Lipase 1203 H <Brady Johnson - Last Filed: 03/02/22 19:44> Assessment and Plan - Plan --NSTEMI. Cardiology consulted. Patient placed on heparin drip. We will continue to trend troponin levels. Further management per [employer] [facility] [employer]. --Acute on chronic diastolic CHF exacerbation. Continue diuresis with Lasix. Daily weight and strict I/O. Further management per [employer]. --DM2 with neuropathy. BS monitoring sliding scale insulin. Continue gabapentin. --Hypertension. Stable. Continue home medications. --HLD. Continue statin. --History of CVA. With left-sided paralysis. Continue aspirin and statin. --Nicotine dependence. Patient counseled on tobacco cessation. Patient placed on nicotine patch. -- Anemia of chronic disease. H&H stable. We will continue monitoring hemoglobin and transfuse if less than 7.0. --Leukocytosis. Likely reactive. Blood cultures pending to rule out other possible causes. Will reassess levels in a.m. --Acute pancreatitis. Lipase at 1203. Patient denies any abdominal pain. Will reassess levels in a.m. Continue supportive care. -- DVT prophylaxis with heparin drip. Discharge Plan: Home Plan to discharge in: 48 Hours - Advance Directives Does patient have a Living Will: No Does patient have a Durable POA for Healthcare: No - Code Status/Comfort Care Code Status Assessed: Yes Code Status: Full Code Critical Care: No <Juan Antonio Fontana - Last Filed: 03/02/22 18:16> Physician Review: Patient Assessed, Agree with Above Assessment and Plan Physician Review Additional Text: At discharge, he appeared to be doing very well clinically. However, acutely yesterday evening, he developed a crushing chest pain and shortness of breath. His EKG was without STEMI criteria. His troponin has continued to uptrend. His clinical presentation is consistent with an acute non-ST segment elevation myocardial infarction. He had a transthoracic echocardiogram earlier this month which revealed a LVEF of 50-55% and grade 1 diastolic dysfunction. However, his echocardiogram today reveals acute anterior wall hypokinesis with an LVEF 40- 45%. I have reviewed his case with Dr. Hayes, who recommended full-dose aspirin and heparin drip and is planning for a left heart catheterization in the morning. Will continue to monitor closely. Brady Johnson M.D. <Brady Johnson - Last Filed: 03/02/22 19:44>
[2022-03-02] MEDS: ASPIRIN EC 81 MG TAB PO SCH (10:00)
[2022-03-02] MEDS ORDERED: ENOXAPARIN 40 MG/0.4 ML SQ SCH (10:00)
[2022-03-02 10:38] LABS: Magnesium 1.8 mg/dL (1.8-2.4); Phosphorus 3.9 mg/dL (2.5-4.9)
[2022-03-02 10:42] LABS: Thyroid Stimulating Hormone 8.47 uIU/mL (0.360-3.740)
[2022-03-02] MEDS ORDERED: ENOXAPARIN 40 MG/0.4 ML SQ ONE (10:53)
[2022-03-02] MEDS: INSULIN -REGULAR HUMAN 50 UNIT/0.5 ML ML SQ SCH ×3 (11:30→22:45)
[2022-03-02] MEDS: ALBUTEROL 2.5 MG/3 ML NEB SOL NEB SCH ×3 (13:59→20:00)
[2022-03-02] MEDS: IPRATROPIUM BROM 0.5MG/2.5ML NEB SCH ×3 (13:59→20:00)
[2022-03-02] MEDS ORDERED: IPRATROPIUM BROM 0.5MG/2.5ML ONE ×2 (14:05→18:42)
[2022-03-02] MEDS ORDERED: ALBUTEROL 2.5 MG/3 ML NEB SOL ONE ×2 (14:05→18:42)
[2022-03-02] MEDS: D5W IV PRN (14:17)
[2022-03-02] MEDS: HEPARIN IV PRN (14:17)
[2022-03-02] MEDS ORDERED: HEPARIN/D5W 25,000 UNIT/500 ML BAG IV ONE ×2 (14:18→18:58)
[2022-03-02 14:36] LABS: Absolute Lymphocytes (CBC) 0.9 K/uL (0.7-4.9); Hematocrit 27.3 % (39.6-49.0); Lymphocytes % 13.3 % (15.3-44.8); MCV 91.8 fL (80-100); MPV 7.6 fL (7.6-11.3); RBC Red Blood Cell Count 2.97 M/uL (4.33-5.43)
[2022-03-02 14:39] LABS: Protime INR 1.08
[2022-03-02] MEDS ORDERED: ASPIRIN 81 MG CHEWABLE TABLET PO STA (19:42)
[2022-03-02] MEDS: GABAPENTIN 100 MG CAP PO SCH (22:43)
[2022-03-02] MEDS: FUROSEMIDE 40 MG/4 ML VIAL IV SCH (22:43)
[2022-03-02] MEDS: HYDROCODONE/APAP 5/325 MG TAB PO PRN (22:44)
[2022-03-02] MEDS: cilostazoL 100 MG TAB PO SCH (22:44)
[2022-03-03] MEDS: ALBUTEROL 2.5 MG/3 ML NEB SOL NEB SCH ×4 (01:00→20:00)
[2022-03-03] MEDS: IPRATROPIUM BROM 0.5MG/2.5ML NEB SCH ×4 (01:00→20:00)
[2022-03-03 05:17] LABS: Absolute Lymphocytes (CBC) 1.2 K/uL (0.7-4.9); Hematocrit 25.1 % (39.6-49.0); Lymphocytes % 19.7 % (15.3-44.8); MCV 91.9 fL (80-100); MPV 7.8 fL (7.6-11.3); RBC Red Blood Cell Count 2.73 M/uL (4.33-5.43)
[2022-03-03 05:22] LABS: Potassium 3.2 mmol/L (3.5-5.1)
[2022-03-03] MEDS: AMLODIPINE 5 MG TAB PO SCH (05:48)
[2022-03-03] MEDS: ASPIRIN EC 81 MG TAB PO SCH (05:57)
[2022-03-03] MEDS: KCL 20 MEQ/100 mL IVPB 20 MEQ/100 ML BAG IV SCH ×2 (06:27→08:34)
[2022-03-03] MEDS ORDERED: LEVOTHYROXINE SOD 0.05 MG TABLET PO SCH (06:30)
[2022-03-03] MEDS ORDERED: NA CHLORIDE 0.9% 500 ML ONE ×2 (06:34→12:58)
--- NOTE | 2022-03-03 07:49 | ECHO ---
HEIGHT: 6 ft 0 in WEIGHT: 192 lb 0 oz DATE OF STUDY: 03/02/[address]: Andrew Trinidad MD 2-DIMENSIONAL: YES M.MODE: YES DOPPLER: YES COLOR FLOW: YES TDS: NO PORTABLE: YES DEFINITY: NO BUBBLE STUDY: NO DIAGNOSIS: CONGESTIVE HEART FAILURE CARDIAC HISTORY: CATHERIZATION: SURGERY: PROSTHETIC VALVE: PACEMAKER: MEASUREMENTS (cm) DIASTOLIC (NORMALS) SYSTOLIC (NORMALS) IVSd 1.2 (0.6-1.2) LA Diam 36 (1.9-4.0) LVEF 41% LVIDd 4.5 (3.5-5.7) LVIDs 3.6 (2.0-3.5) %FS 20% LVPWd 1.3 (0.6-1.2) Ao Diam 3.2 (2.0-3.7) 2 DIMENSIONAL ASSESSMENT: RIGHT ATRIUM: NORMAL LEFT ATRIUM: NORMAL RIGHT VENTRICLE: NORMAL LEFT VENTRICLE: NORMAL SIZE TRICUSPID VALVE: NORMAL MITRAL VALVE: NORMAL PULMONIC VALVE: NORMAL AORTIC VALVE: SCLEROSIS PERICARDIAL EFFUSION: NONE AORTIC ROOT: NORMAL LEFT VENTRICULAR WALL MOTION: ANTEROAPICAL HYPERKINESIS. DOPPLER/COLOR FLOW: NORMAL. COMMENTS: ANTEROAPICAL HYPOKINESIS. EJECTION FRACTION 41%. NO EFFUSION. TECHNOLOGIST: SAMANTHA PEÑA
[2022-03-03] MEDS: GABAPENTIN 100 MG CAP PO SCH ×2 (08:12→21:35)
[2022-03-03] MEDS: cilostazoL 100 MG TAB PO SCH ×3 (08:12→21:36)
[2022-03-03] MEDS: ATORVASTATIN 40 MG TAB PO SCH (08:12)
[2022-03-03] MEDS: INSULIN -REGULAR HUMAN 50 UNIT/0.5 ML ML SQ SCH ×5 (08:32→21:36)
[2022-03-03] MEDS: FUROSEMIDE 40 MG/4 ML VIAL IV SCH ×2 (08:35→17:00)
[2022-03-03] MEDS: NICOTINE 21 MG/PAT TD SCH (08:35)
[2022-03-03] MEDS ORDERED: HOME MED 1 EA UNK (Losartan Potassium [Losartan Potassium] 100 MG Tablet) PO SCH (09:00)
[2022-03-03] MEDS ORDERED: HOME MED 1 EA UNK (Levothyroxine Sodium [Levothyroxine] 50 MCG Capsule) PO SCH (09:00)
[2022-03-03] MEDS ORDERED: LOSARTAN POTASSIUM 50 MG TABLET PO SCH (09:00)
[2022-03-03] MEDS ORDERED: HEPA 1000U/500MLS 2,000 UNIT/1,000 ML BAG IV ONE (10:37)
[2022-03-03] MEDS: MORPHINE 2 MG/ML SYR IV PRN (10:47)
[2022-03-03] MEDS ORDERED: ASPIRIN 325 MG TAB ONE (10:49)
[2022-03-03] MEDS ORDERED: HEPARIN 5000 UNIT/ML 1 ML VIAL ONE (10:49)
[2022-03-03] MEDS ORDERED: VERAPAMIL HCL 10 MG/4 ML VIAL IV ONE (10:49)
[2022-03-03] MEDS ORDERED: TICAGRELOR 90 MG TABLET PO ONE (10:49)
[2022-03-03] MEDS ORDERED: ATROPINE SULF 1 MG/10 ML SYR IV ONE ×2 (10:50→13:26)
[2022-03-03] MEDS ORDERED: HEPARIN 10,000 UNIT/10 ML VIAL IV ONE ×2 (10:51→14:37)
[2022-03-03] MEDS ORDERED: CLOPIDOGREL 75 MG TABLET ONE (11:13)
[2022-03-03] MEDS: HEPARIN IV PRN (11:20)
[2022-03-03] MEDS: D5W IV PRN (11:20)
--- NOTE | 2022-03-03 11:49 | CON ---
Date of Consultation: 03/02/2022 Reason For Consultation: Non-ST elevation myocardial infarction. History Of Present Illness: Mr. Wright is a 61-year-old white male. Has a history of diabetes, CVA , hypertension, dyslipidemia, recently underwent a right carotid endarterectomy. Comes back to the [facility] with chest pain, congestive heart failure, new onset. Echocardiogram showed anteroapical hyp okinesis which is new, ejection fraction 41%. Troponin is 4475. His glucose was 309. Hemoglobin is 9.1. Lipase was elevated. BNP was elevated. He had an abdominal and pelvic CT that were negative. CTA was negative for pulmonary embolus. Chest x-ray showed congestive heart failure. The patient is feeling better now after diuresis. Past Medical History: As stated above. Allergies: NONE. Review of Systems: Negative. Social History: Negative. Family History: Noncontributory. Medications: At home include Xigduo, Neurontin, Norvasc, losartan, Lipitor, Amaryl, Pletal, and Thyr oid. Physical Examination: Vital Signs: Stable, afebrile. HEENT: Negative. Neck: Supple without any bruit, lymphadenopathy, JVD, or thyromegaly. He has a well-healing wound f rom his right carotid endarterectomy. Chest: Revealed some rales both bases. Cardiac: Revealed a regular rhythm and rate. No murmurs, gallops, or rubs. Abdomen: Benign. Extremities: Revealed trace edema. Diagnostic Data: As stated earlier. Impression And Plan: Non-ST elevation myocardial infarction with new wall motion abnormalities on th e echocardiogram in the anteroapical region with an ejection fraction of 41%, troponin is 4475, new o nset failure, elevated BNP, recent pancreatitis, recent carotid endarterectomy. Heart catheterizatio n is indicated. We will perform that tomorrow to define his coronary anatomy. The patient understan ds the risk and the benefits of the procedure and he agreed to proceed. His glucose needs to be bett er controlled. His blood pressure is well controlled. His cerebrovascular accident status is stable . We will continue to follow him. SANDRA/BARRYL Voice ID: [id number] Report ID: [id number]
[2022-03-03] MEDS ORDERED: FENTANYL CITR 100 MCG/2 ML ONE (13:26)
[2022-03-03] MEDS ORDERED: MIDAZOLAM HCL 2 MG/2 ML INJ ONE ×2 (13:26→14:02)
--- NOTE | 2022-03-03 13:59 | EKG ---
Test Date: 2022-03-02 Test Time: 06:00:55 [employer] Director: ELDER MEASUREMENT RESULTS: Intervals: Rate: 98 LA: 130 QRSD: 88 QT: 352 QTc: 449 Leupp: P: 53 LA: 130 QRS: 28 T: 120 INTERPRETIVE STATEMENTS: Sinus rhythm with premature atrial complexes Possible Inferior infarct, age undetermined Abnormal ECG Compared to ECG 01/21/2022 23:57:38 Myocardial infarct finding now present Ventricular premature complex(es) no longer present ST (T wave) deviation no longer present Possible ischemia no longer present Prolonged QT interval no longer present Electronically Signed On 03-03-22 13:58:18 CDT by Jeffrey Suazo
--- NOTE | 2022-03-03 19:44 | OP ---
Date of Procedure: 03/03/2022 Surgeon: MARCUS PAUL Procedures Performed: 1.Selective coronary angiogram. 2.Percutaneous coronary intervention of severe mid and distal right coronary artery stenosis, which is a culprit. I used a 3.5 x 48 mm Synergy drug-eluting stent and post dilated the proximal mid sten t using 4.0 x 20 mm NC balloon. Indication: Non-ST elevation myocardial infarction. Complications: None. Bleeding: Less than 10 mL. Access: Right radial artery, 6-Chinese closed with TR band. Anesthesia: Total sedation time was 50 minutes. Description Of Procedure: After risks, benefits, and alternatives explained, the patient agreed to t he procedure and signed informed consent. The patient was brought into the cardiac catheterization l aboratory, prepped and draped in usual sterile fashion. Then, we accessed the right radial artery us ing pediatric micropuncture kit, placed 6-Chinese [place] sheath and took a 5-Chinese [place] 4.0 cathet er into the aortic root over a J-wire, engaged left main, right coronary artery, took standard views, and then gave systemic heparin, and exchanged for 6-Chinese JR4 guide, engaged the RCA, took short ru n-through wire into the RCA, and then with difficulty past 30 of stenosis, then placed it distally an d the lesions were pre-dilated using a 3.0 x 20 compliant balloon and noncompliant balloon and then I placed a 3.5 x 48 mm Synergy drug-eluting stent across already at the stenosis and post dilated the proximal and the mid using 4.0 x 20 mm NC balloon. Results at the end were excellent with SANTA-3 alfonso w and 0% residual restenosis and no complications. Then, we removed the wire and the guide catheter and the sheath, and placed TR band with good hemostasis. Findings: 1.Left main is large and normal. 2.LAD, large vessel with proximal appears normal mid section. There is a focal 80% stenosis and the n becomes an artery with luminal irregularities and diagonal branches appear normal. 3.Left circumflex is very small artery. In the mid to distal portion, there is about 60% stenosis, but the vessel is less than 2 mm in size. Then OM1 branch is less than 2 mm vessel and also has tigh t 90% stenosis of the proximal segment. 4.RCA, very large and dominant, has mid 99% stenosis with plaque rupture and this is a culprit for t he NV, then diffuse 40%, and then before the bifurcation, it becomes 90% stenosed, status post succes sful PCI as outlined above and then the PDA has about 30% to 40% stenosis and PLV is with luminal irr egularities. Conclusion: 1.Severe RCA stenosis, which is the culprit for the NV, status post successful PCI as above. 2.Severe mid LAD focal stenosis. Plan for PCI tomorrow as stage due to the contrast load today to a void stunning the whole myocardium. 3.Moderate coronary artery disease elsewhere. Plan: 1.Continue aspirin and Brilinta, which he was loaded today and we will need a high dose statin. 2.Staged PCI of the mid LAD tomorrow morning. /MODL Voice ID: [id number] Report ID: [id number]
[2022-03-03 20:16] LABS: Barbiturates NEGATIVE (NEGATIVE); Benzodiazepines POSITIVE (NEGATIVE); Cocaine NEGATIVE (NEGATIVE); METHAMPHETAM NEGATIVE (NEGATIVE); Methadone NEGATIVE (NEGATIVE); Opiates NEGATIVE (NEGATIVE); Phencyclidine NEGATIVE (NEGATIVE); THC Cannibis NEGATIVE (NEGATIVE)
[2022-03-03 20:38] LABS: Urine Bacteria <20 /HPF (<20); Urine Mucus Slight /HPF (None Seen)
[2022-03-03 20:41] LABS: Urine Clarity Cloudy (Clear); Urine Color Yellow (Yellow)
[2022-03-03 20:42] LABS: Specific Gravity 1.005 (1.005-1.030); Urine Bilirubin Negative (Negative); Urine Glucose Negative (Negative); Urine Protein Negative (Negative); Urine Urobilinogen Normal (Normal); Urine pH 6.5 (5.0-7.0)
[2022-03-03 20:43] LABS: Urine Blood 2+ (Negative)
[2022-03-03] MEDS ORDERED: POTASSIUM 25 MEQ EFFERV TAB PO ONE (21:00)
[2022-03-03] MEDS: HYDROCODONE/APAP 5/325 MG TAB PO PRN (21:35)
--- NOTE | 2022-03-03 23:42 | P.PN ---
Subjective Date of Service: 03/03/22 Chief Complaint: Chest pain and shortness of breath. No acute events overnight. He reports that his chest pain and shortness of breath have completely resolved. He states that his only symptom at this time is burning through his IV because of the potassium supplementation. Review of Systems 10-point ROS is otherwise unremarkable Respiratory: Shortness of Breath (improved) Cardiovascular: Chest Pain (improved) Physical Examination - Vital Signs Temperature: 97.5 F Blood Pressure: 149/65 Pulse: 86 Respirations: 17 Pulse Ox (%): 99 - Studies Laboratory Data (last 24 hrs) 03/03/22 10:07: APTT 69.7 H 03/03/22 04:55: APTT 47.3 H 03/03/22 04:55: Sodium 137, Potassium 3.2 L, BUN 19 H, Creatinine 1.10, Glucose 296 H, Lipase 886 H 03/03/22 04:55: WBC 6.20, Hgb 8.6 L, Hct 25.1 L, Plt Count 277 03/03/22 00:33: APTT 64.1 H Assessment And Plan - Plan - Physical Exam General: Alert, In no apparent distress, Oriented x3 HEENT: Atraumatic, PERRLA, Mucous membr. moist/pink, EOMI, Sclerae nonicteric Neck: Supple, JVD not distended Respiratory: Clear to auscultation bilaterally, Normal air movement Cardiovascular: No edema, Regular rate/rhythm, Normal S1 S2, No gallops, No rubs, No murmurs Gastrointestinal: Normal bowel sounds, Soft and benign, Non-distended, No tenderness, No rebound, No guarding Musculoskeletal: No clubbing Integumentary: No rashes Neurological: Normal speech, Sensation intact, Cranial nerves 3-12 intact, Normal affect, Abnormal strength (3/5 strength in LUE/LLE. 5/5 strength in RUE/RLE. ) # Acute Non-ST Segment Elevation Myocardial Infarction # Peripheral Artery Disease s/p Left Femoral Artery Bypass # Hypertension # Dyslipidemia - Cardiology consulted - recommendations appreciated - Plan for [facility] today - EKG reportedly without STEMI criteria - Troponin trend: 1515.5 -> 2830.2 -> 5385.9 -> 4475.4 -> 2748.9 - TTE = "HYPOKINESIS. EJECTION FRACTION 41%. NO EFFUSION." - Continue aspirin, atrovastatin, and heparin drip - Plan to start beta-mery and DOV-I/ARB if blood pressure allows # Deconditioning and Left-Sided Weakness # Reported History of CVA with Residual Left-Sided Deficits He reports that this unilateral weakness is chronic from a prior CVA. However, he is concerned about home safety given these deficits. 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
[2022-03-04] MEDS: ALBUTEROL 2.5 MG/3 ML NEB SOL NEB SCH ×4 (02:00→19:55)
[2022-03-04] MEDS: IPRATROPIUM BROM 0.5MG/2.5ML NEB SCH ×4 (02:00→19:55)
[2022-03-04 03:48] LABS: MPV 7.7 fL (7.6-11.3)
[2022-03-04] MEDS ORDERED: MAGNESIUM SULFATE 1 gm IVPB 1 GM/100 ML BAG IV ONE (06:00)
[2022-03-04] MEDS: AMLODIPINE 5 MG TAB PO SCH (06:15)
[2022-03-04] MEDS: ASPIRIN EC 81 MG TAB PO SCH (06:16)
[2022-03-04] MEDS ORDERED: HEPARIN 5000 UNIT/ML 1 ML VIAL ONE (06:27)
[2022-03-04] MEDS ORDERED: FENTANYL CITR 100 MCG/2 ML ONE (06:27)
[2022-03-04] MEDS ORDERED: MIDAZOLAM HCL 2 MG/2 ML INJ ONE (06:27)
[2022-03-04] MEDS ORDERED: VERAPAMIL HCL 10 MG/4 ML VIAL IV ONE (06:28)
[2022-03-04] MEDS ORDERED: ASPIRIN 325 MG TAB ONE (06:28)
[2022-03-04] MEDS ORDERED: TICAGRELOR 90 MG TABLET PO ONE (06:28)
[2022-03-04] MEDS ORDERED: HEPARIN 10,000 UNIT/10 ML VIAL IV ONE (06:28)
[2022-03-04] MEDS ORDERED: HEPA 1000U/500MLS 2,000 UNIT/1,000 ML BAG IV ONE (06:40)
[2022-03-04] MEDS ORDERED: LIDOCAINE 1% MPF 5 ML VIAL ONE (06:40)
[2022-03-04] MEDS ORDERED: NA CHLORIDE 0.9% 500 ML ONE (07:02)
[2022-03-04] MEDS ORDERED: CLOPIDOGREL 75 MG TABLET ONE (07:09)
[2022-03-04] MEDS: INSULIN -REGULAR HUMAN 50 UNIT/0.5 ML ML SQ SCH ×4 (07:30→21:33)
[2022-03-04] MEDS: cilostazoL 100 MG TAB PO SCH ×2 (09:00→21:36)
--- NOTE | 2022-03-04 10:27 | OP ---
Date of Procedure: 03/04/2022 Surgeon: MARCUS PAUL Procedures Performed: 1.Selective coronary angiogram. 2.Percutaneous coronary intervention of severe mid left anterior descending stenosis. This is a 95% stenosis. I used 3.5 x 16 mm Synergy drug-eluting stent with 0% residual stenosis and SANTA-3 flow. Indication: Non-ST elevation myocardial infarction. Access: Right radial artery 6-Samoan, closed with TR band. Complications: None. Bleeding: Less than 10 mL. Total Sedation Time: 15 minutes. Used fentanyl and Versed. Description Of Procedure: After risks, benefits, and alternatives were explained, the patient agreed to proceed and signed informed consent. Patient was brought into the cardiac catheterization labora tory, prepped and draped in sterile fashion. Then, accessed right radial artery using pediatric micr opuncture kit, placed a 6-Samoan slender sheath, and fentanyl and versed were given in incremental do ses to achieve adequate moderate sedation. Then, I took a 6-Samoan EBU 3.5 guide into the aortic mingo t over a J-wire, engaged left main and gave systemic heparin to assure ACT level of above 250. We lo aded with 600 mg of Plavix and took short Runthrough wire into the left main and LAD, placed it dista lly. Then, using a 3.0 x 12 mm compliant balloon, lesion was pre-dilated to high pressure and expand ed very well. Then, I took a 3.5 x 60 mm Synergy drug-eluting stent across the area of stenosis with excellent results. Final angiogram was satisfactory. Then, wire, guide, and sheath were removed an d placed TR band with good hemostasis. Findings: Severe mid LAD stenosis, 95%, status post successful PCI as above. Plan: Aspirin, Plavix, high-dose statin, and follow up as an outpatient. SR/MODL Voice ID: [id number] Report ID: [id number]
[2022-03-04] MEDS: FUROSEMIDE 40 MG/4 ML VIAL IV SCH (12:16)
[2022-03-04] MEDS: GABAPENTIN 100 MG CAP PO SCH ×2 (12:16→21:35)
[2022-03-04] MEDS: ATORVASTATIN 40 MG TAB PO SCH (12:16)
[2022-03-04] MEDS: NICOTINE 21 MG/PAT TD SCH (12:17)
[2022-03-04] MEDS: HYDROCODONE/APAP 5/325 MG TAB PO PRN (12:53)
[2022-03-04 14:07] LABS: Absolute Lymphocytes (CBC) 0.7 K/uL (0.7-4.9); Hematocrit 29.9 % (39.6-49.0); Lymphocytes % 9.6 % (15.3-44.8); MCV 92.7 fL (80-100); MPV 7.7 fL (7.6-11.3); RBC Red Blood Cell Count 3.23 M/uL (4.33-5.43)
[2022-03-04] MEDS: TICAGRELOR 90 MG TABLET PO SCH (21:36)
[2022-03-04] MEDS: MORPHINE 2 MG/ML SYR IV PRN (21:37)
--- NOTE | 2022-03-05 00:05 | P.PN ---
Subjective Date of Service: 03/05/22 Chief Complaint: Chest pain and shortness of breath. No acute events overnight. Tolerated procedure well, without any apparent complications. Denies chest pain or shortness of breath. Review of Systems 10-point ROS is otherwise unremarkable Physical Examination - Vital Signs Temperature: 96.9 F Blood Pressure: 149/66 Pulse: 96 Respirations: 17 Pulse Ox (%): 95 Assessment And Plan - Plan - Physical Exam General: Alert, In no apparent distress, Oriented x3 HEENT: Atraumatic, PERRLA, Mucous membr. moist/pink, EOMI, Sclerae nonicteric Neck: Supple, JVD not distended Respiratory: Clear to auscultation bilaterally, Normal air movement Cardiovascular: No edema, Regular rate/rhythm, Normal S1 S2, No gallops, No rubs, No murmurs Gastrointestinal: Normal bowel sounds, Soft and benign, Non-distended, No tenderness, No rebound, No guarding Musculoskeletal: No clubbing Integumentary: No rashes Neurological: Normal speech, Sensation intact, Cranial nerves 3-12 intact, Normal affect, Abnormal strength (3/5 strength in LUE/LLE. 5/5 strength in RUE/RLE. ) # Acute Non-ST Segment Elevation Myocardial Infarction # Peripheral Artery Disease s/p Left Femoral Artery Bypass # Hypertension # Dyslipidemia - Cardiology consulted - recommendations appreciated - [facility] 03/03 = s/p FOUZIA to RCA - [facility] 03/04 = s/p FOUZIA to mid-LAD - EKG reportedly without STEMI criteria - Troponin trend: 1515.5 -> 2830.2 -> 5385.9 -> 4475.4 -> 2748.9 - TTE = "HYPOKINESIS. EJECTION FRACTION 41%. NO EFFUSION." - Continue aspirin, atrovastatin, and heparin drip - Started on ticagrelor - Plan to start beta-mery and DOV-I/ARB if blood pressure allows # Deconditioning and Left-Sided Weakness # Reported History of CVA with Residual Left-Sided Deficits He reports that this unilateral weakness is chronic from a prior CVA. However, he is concerned about home safety given these deficits. 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
[2022-03-05] MEDS: ALBUTEROL 2.5 MG/3 ML NEB SOL NEB SCH ×4 (01:35→20:10)
[2022-03-05] MEDS: IPRATROPIUM BROM 0.5MG/2.5ML NEB SCH ×4 (01:35→20:10)
[2022-03-05 05:35] LABS: MPV 7.3 fL (7.6-11.3)
[2022-03-05 05:51] LABS: Magnesium 1.7 mg/dL (1.8-2.4); Potassium 3.9 mmol/L (3.5-5.1)
[2022-03-05] MEDS ORDERED: POTASSIUM CL SA 10 MEQ TAB PO ONE (09:00)
[2022-03-05] MEDS ORDERED: MAGNESIUM SULFATE 1 gm IVPB 1 GM/100 ML BAG IV ONE (09:00)
[2022-03-05] MEDS: GABAPENTIN 100 MG CAP PO SCH ×2 (09:15→21:13)
[2022-03-05] MEDS: TICAGRELOR 90 MG TABLET PO SCH ×2 (09:15→20:57)
[2022-03-05] MEDS: ATORVASTATIN 40 MG TAB PO SCH (09:15)
[2022-03-05] MEDS: ASPIRIN EC 81 MG TAB PO SCH (09:15)
[2022-03-05] MEDS: cilostazoL 100 MG TAB PO SCH ×2 (09:16→20:57)
[2022-03-05] MEDS: INSULIN -REGULAR HUMAN 50 UNIT/0.5 ML ML SQ SCH ×4 (09:17→21:00)
[2022-03-05] MEDS: FUROSEMIDE 40 MG/4 ML VIAL IV SCH (09:17)
[2022-03-05] MEDS: AMLODIPINE 5 MG TAB PO SCH (09:17)
[2022-03-05] MEDS: NICOTINE 21 MG/PAT TD SCH (09:18)
[2022-03-05] MEDS ORDERED: MAGNESIUM OXIDE 400 MG TAB PO ONE (10:59)
[2022-03-05] MEDS: HYDROCODONE/APAP 5/325 MG TAB PO PRN (16:53)
--- NOTE | 2022-03-05 20:04 | P.PN ---
Subjective Date of Service: 03/05/22 Chief Complaint: Chest pain and shortness of breath. No acute events overnight. Denies chest pain or shortness of breath. He endorses significant left-sided weakness and is concerned being discharged back home due to these deficits. Review of Systems 10-point ROS is otherwise unremarkable Neurological: Weakness (left-sided from prior CVA) Physical Examination - Vital Signs Temperature: 98.0 F Blood Pressure: 133/62 Pulse: 106 Respirations: 18 Pulse Ox (%): 96 Assessment And Plan - Plan - Physical Exam General: Alert, In no apparent distress, Oriented x3 HEENT: Atraumatic, PERRLA, Mucous membr. moist/pink, EOMI, Sclerae nonicteric Neck: Supple, JVD not distended Respiratory: Clear to auscultation bilaterally, Normal air movement Cardiovascular: No edema, Regular rate/rhythm, Normal S1 S2, No gallops, No rubs, No murmurs Gastrointestinal: Normal bowel sounds, Soft and benign, Non-distended, No tenderness, No rebound, No guarding Musculoskeletal: No clubbing Integumentary: No rashes Neurological: Normal speech, Sensation intact, Cranial nerves 3-12 intact, Normal affect, Abnormal strength (3/5 strength in LUE/LLE. 5/5 strength in RUE/RLE. ) # Acute Non-ST Segment Elevation Myocardial Infarction # Peripheral Artery Disease s/p Left Femoral Artery Bypass # Hypertension # Dyslipidemia - Cardiology consulted - recommendations appreciated - [facility] 03/03 = s/p FOUZIA to RCA - [facility] 03/04 = s/p FOUZIA to mid-LAD - EKG reportedly without STEMI criteria - Troponin trend: 1515.5 -> 2830.2 -> 5385.9 -> 4475.4 -> 2748.9 - TTE = "hypokinesis. ejection fraction 41%. no effusion." - Continue aspirin, atrovastatin, and heparin drip - Started on ticagrelor - Plan to start beta-mery and DOV-I/ARB if blood pressure allows # Deconditioning and Left-Sided Weakness # Reported History of CVA with Residual Left-Sided Deficits He reports that this unilateral weakness is chronic from a prior CVA. However, he is concerned about home safety given these deficits. - Consult PT - recommends discharge home with family help - Mr. 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
[2022-03-06] MEDS: ALBUTEROL 2.5 MG/3 ML NEB SOL NEB SCH ×4 (02:00→20:30)
[2022-03-06] MEDS: IPRATROPIUM BROM 0.5MG/2.5ML NEB SCH ×4 (02:00→20:30)
[2022-03-06 05:58] LABS: Hematocrit 21.7 % (39.6-49.0); Lymphocytes % 10.2 % (15.3-44.8); MCV 93.3 fL (80-100); MPV 7.8 fL (7.6-11.3); RBC Red Blood Cell Count 2.32 M/uL (4.33-5.43)
[2022-03-06] MEDS: HYDROCODONE/APAP 5/325 MG TAB PO PRN ×2 (06:04→11:53)
[2022-03-06 06:22] LABS: Magnesium 1.7 mg/dL (1.8-2.4); Potassium 3.8 mmol/L (3.5-5.1)
[2022-03-06] MEDS: GABAPENTIN 100 MG CAP PO SCH ×2 (08:40→20:21)
[2022-03-06] MEDS: ATORVASTATIN 40 MG TAB PO SCH (08:40)
[2022-03-06] MEDS: TICAGRELOR 90 MG TABLET PO SCH ×2 (08:40→20:21)
[2022-03-06] MEDS: AMLODIPINE 5 MG TAB PO SCH (08:40)
[2022-03-06] MEDS: cilostazoL 100 MG TAB PO SCH ×2 (08:40→20:21)
[2022-03-06] MEDS: ASPIRIN EC 81 MG TAB PO SCH (08:40)
[2022-03-06] MEDS: FUROSEMIDE 40 MG/4 ML VIAL IV SCH (08:41)
[2022-03-06] MEDS: NICOTINE 21 MG/PAT TD SCH (08:41)
[2022-03-06] MEDS: INSULIN -REGULAR HUMAN 50 UNIT/0.5 ML ML SQ SCH ×4 (08:41→20:30)
--- NOTE | 2022-03-06 12:40 | PN ---
Date of Progress Note: 03/05/2022 Mr. Wright underwent RCA angioplasty and stent 2 days ago, LAD stent on 03/04/[address] Suazo. H as done very well from that standpoint. No catheter site complication. Today, his vital signs are s table, afebrile, glucose is 268, otherwise normal rhythm. He can go home today with aspirin, Brilint a, Norvasc, and Lipitor. He will come to see us in the office in the next 2 weeks. SANDRA/KATERYNA Voice ID: [id number] Report ID: [id number]
--- NOTE | 2022-03-06 17:14 | P.PN ---
Subjective Date of Service: 03/06/22 Chief Complaint: Chest pain and shortness of breath. No acute events overnight. Denies chest pain or shortness of breath. Hemoglobin has dropped to 7.3. Denies hemoptysis, epistaxis, hematochezia, melenia, or hematuria. Review of Systems 10-point ROS is otherwise unremarkable Neurological: Weakness (left-sided) Physical Examination - Vital Signs Temperature: 97.9 F Blood Pressure: 116/56 Pulse: 99 Respirations: 20 Pulse Ox (%): 92 Assessment And Plan - Plan - Physical Exam General: Alert, In no apparent distress, Oriented x3 HEENT: Atraumatic, PERRLA, Mucous membr. moist/pink, EOMI, Sclerae nonicteric Neck: Supple, JVD not distended Respiratory: Clear to auscultation bilaterally, Normal air movement Cardiovascular: No edema, Regular rate/rhythm, Normal S1 S2, No gallops, No rubs, No murmurs Gastrointestinal: Normal bowel sounds, Soft and benign, Non-distended, No tenderness, No rebound, No guarding Musculoskeletal: No clubbing Integumentary: No rashes Neurological: Normal speech, Sensation intact, Cranial nerves 3-12 intact, Normal affect, Abnormal strength (3/5 strength in LUE/LLE. 5/5 strength in RUE/RLE. ) # Acute Non-ST Segment Elevation Myocardial Infarction # Acute on Chronic Anemia - unclear source of bleeding # Peripheral Artery Disease s/p Left Femoral Artery Bypass # Hypertension # Dyslipidemia - Cardiology consulted - recommendations appreciated - [facility] 03/03 = s/p FOUZIA to RCA - [facility] 03/04 = s/p FOUZIA to mid-LAD - EKG reportedly without STEMI criteria - Troponin trend: 1515.5 -> 2830.2 -> 5385.9 -> 4475.4 -> 2748.9 - TTE = "hypokinesis. ejection fraction 41%. no effusion." - Continue aspirin, atrovastatin, and ticagrelor - Repeat H&H and transfuse for Hgb <7.0 - Plan to start beta-mery and DOV-I/ARB if blood pressure allows # Deconditioning and Left-Sided Weakness # Reported History of CVA with Residual Left-Sided Deficits He reports that this unilateral weakness is chronic from a prior CVA. However, he is concerned about home safety given these deficits. - Consult PT - recommends discharge home with family help - Mr. 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
[2022-03-06] MEDS: MORPHINE 2 MG/ML SYR IV PRN (22:21)
[2022-03-07] MEDS: IPRATROPIUM BROM 0.5MG/2.5ML NEB SCH ×4 (02:00→19:40)
[2022-03-07] MEDS: ALBUTEROL 2.5 MG/3 ML NEB SOL NEB SCH ×4 (02:00→19:40)
[2022-03-07] MEDS: HYDROCODONE/APAP 5/325 MG TAB PO PRN ×2 (06:08→12:05)
[2022-03-07] MEDS: FUROSEMIDE 40 MG/4 ML VIAL IV SCH (09:00)
[2022-03-07] MEDS: TICAGRELOR 90 MG TABLET PO SCH ×2 (09:00→21:07)
[2022-03-07] MEDS: NICOTINE 21 MG/PAT TD SCH (09:49)
[2022-03-07] MEDS: ATORVASTATIN 40 MG TAB PO SCH (09:50)
[2022-03-07] MEDS: GABAPENTIN 100 MG CAP PO SCH ×2 (09:50→20:45)
[2022-03-07] MEDS: AMLODIPINE 5 MG TAB PO SCH (09:50)
[2022-03-07] MEDS: cilostazoL 100 MG TAB PO SCH ×2 (09:51→20:39)
[2022-03-07] MEDS: ASPIRIN EC 81 MG TAB PO SCH (09:51)
[2022-03-07] MEDS: INSULIN -REGULAR HUMAN 50 UNIT/0.5 ML ML SQ SCH ×4 (09:51→21:08)
[2022-03-07] MEDS: MIDODRINE HCL 5 MG TABLET PO SCH ×3 (10:10→20:46)
[2022-03-07] MEDS ORDERED: Ringers Lactate 1,000 ML IV ONE ×2 (10:30→10:46)
[2022-03-07] MEDS ORDERED: SODIUM CHLORIDE 0.9% 10ML INJ IV PRN (10:31)
[2022-03-07] MEDS ORDERED: PANTOPRAZOLE 40 MG INJ IVP ONE (10:31)
--- NOTE | 2022-03-07 10:37 | P.PN ---
Subjective Date of Service: 03/07/22 Chief Complaint: Chest pain and shortness of breath. Developed black stools this morning and he also had a hypotensive episode. Had had a dose of antihypertensive medication needed. There is significant concern for GI bleed and patient has been started on Intravenous fluid bolus and pantoprazole therapy. Physical Examination - Vital Signs Temperature: 97.1 F Blood Pressure: 78/48 Pulse: 97 Respirations: 18 Pulse Ox (%): 86 - Physical Exam General: Alert, Oriented x3 HEENT: Atraumatic, Normocephalic, Other (Pale conjunctiva bilaterally) Neck: Supple Respiratory: Clear to auscultation bilaterally Cardiovascular: Regular rate/rhythm, Normal S1 S2 Gastrointestinal: Soft and benign Neurological: Normal speech, Cranial nerves 3-12 intact Assessment And Plan - Plan # Acute Non-ST Segment Elevation Myocardial Infarction # Acute on Chronic Anemia -with significant concern for GI bleed due to recent episode of melena stools # Peripheral Artery Disease s/p Left Femoral Artery Bypass # Hypertension # Dyslipidemia - [facility] 03/03 = s/p FOUZIA to RCA - [facility] 03/04 = s/p FOUZIA to mid-LAD -Developed tarry stools this morning and there is significant concern for active GI bleed. Hemoglobin trend latest showed hemoglobin of 7.0. With ongoing hypotensive episode this morning there is concern for active GI bleed. Will transfer patient to ICU, start IV fluid bolus for management of hypotension and midodrine doses. Will hold all confounding meds including antihypertensive medications. Will have cardiology evaluate patient's medication in view of his active GI bleed which is significantly concerning. We will transfuse at least 2 units of packed red cells to keep hemoglobin greater than 8.0 in view of his recent stent placement for coronary artery disease. 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 Physician Review: Patient Assessed, Agree with Above Assessment and Plan
[2022-03-07 10:45] LABS: Absolute Lymphocytes (CBC) 0.7 K/uL (0.7-4.9); Hematocrit 19.7 % (39.6-49.0); Lymphocytes % 4.5 % (15.3-44.8); MCV 92.9 fL (80-100); MPV 7.9 fL (7.6-11.3); RBC Red Blood Cell Count 2.11 M/uL (4.33-5.43)
[2022-03-07 10:59] LABS: Albumin 2.4 g/dL (3.4-5.0); Bilirubin Total 0.4 mg/dL (0.2-1.0); Potassium 3.9 mmol/L (3.5-5.1); Protein, Total 6.6 g/dL (6.4-8.2)
[2022-03-07] MEDS: PANTOPRAZOLE INJ 80 MG in NA CHLORIDE 0.9% 250 ML IV SCH ×2 (11:38→21:47)
[2022-03-07 12:35] LABS: Platelet Estimate ADEQ; Platelets, Giant FEW
[2022-03-07 12:36] LABS: Blood Morphology Comment NOT SEEN (NOT SEEN)
[2022-03-07] MEDS ORDERED: NA CHLORIDE 0.9% 250 ML ONE (13:56)
--- NOTE | 2022-03-07 21:53 | RAD REPORT ---
EXAM DESCRIPTION: CT - Head Brain Wo Cont - 03/07/2022 9:35 pm CLINICAL HISTORY: VISION CHANGES COMPARISON: Head Brain Wo Cont dated 01/22/2022; Brain W/Wo Cont dated 01/31/2022 TECHNIQUE: All CT scans are performed using dose optimization technique as appropriate and may inclu de automated exposure control or mA/KV adjustment according to patient size. FINDINGS: Subacute cerebral infarcts involving the right frontal, right parietal, and right occipita l lobe. .No areas of brain edema or evidence of midline shift. Left mastoid effusion. The calvarium is intact. IMPRESSION: Subacute right cerebral hemisphere infarcts. No new superimposed acute infarct identifie d. No intracranial hemorrhage.
[2022-03-07 22:36] LABS: Hematocrit 22.6 % (39.6-49.0)
[2022-03-08] MEDS: IPRATROPIUM BROM 0.5MG/2.5ML NEB SCH ×4 (01:30→20:00)
[2022-03-08] MEDS: ALBUTEROL 2.5 MG/3 ML NEB SOL NEB SCH ×4 (01:30→20:00)
[2022-03-08 05:06] LABS: Absolute Lymphocytes (CBC) 0.9 K/uL (0.7-4.9); Hematocrit 23.2 % (39.6-49.0); Lymphocytes % 6.4 % (15.3-44.8); MCV 87.5 fL (80-100); RBC Red Blood Cell Count 2.65 M/uL (4.33-5.43)
[2022-03-08 05:19] LABS: Magnesium 1.9 mg/dL (1.8-2.4); Potassium 3.3 mmol/L (3.5-5.1)
[2022-03-08] MEDS: INSULIN -REGULAR HUMAN 50 UNIT/0.5 ML ML SQ SCH ×4 (07:30→22:42)
[2022-03-08] MEDS: NICOTINE 21 MG/PAT TD SCH (09:09)
[2022-03-08] MEDS: ATORVASTATIN 40 MG TAB PO SCH (09:10)
[2022-03-08] MEDS: GABAPENTIN 100 MG CAP PO SCH ×2 (09:10→22:42)
[2022-03-08] MEDS: MIDODRINE HCL 5 MG TABLET PO SCH ×3 (09:10→22:43)
[2022-03-08] MEDS: PANTOPRAZOLE INJ 80 MG in NA CHLORIDE 0.9% 250 ML IV SCH ×2 (09:35→22:41)
--- NOTE | 2022-03-08 10:55 | P.PN ---
Subjective Date of Service: 03/08/22 Chief Complaint: Chest pain and shortness of breath. Subjective: No new changes, Improving Review of Systems 10-point ROS is otherwise unremarkable Physical Examination - Vital Signs Temperature: 97 F Blood Pressure: 120/56 Pulse: 86 Respirations: 17 Pulse Ox (%): 98 - Physical Exam General: Alert, Oriented x3 HEENT: Atraumatic, Normocephalic Neck: Supple Respiratory: Normal air movement Cardiovascular: Regular rate/rhythm, Normal S1 S2 Musculoskeletal: No swelling Neurological: Normal speech, Normal strength at 5/5 x4 extr - Studies Microbiology Data (last 24 hrs): 03/02/22 10:39 Blood - Blood Aerobic Blood Culture - Final No growth in 5 days. 03/02/22 10:39 Blood - Blood Anaerobic Blood Culture - Final No growth in 5 days. 03/02/22 10:31 Blood - Blood Aerobic Blood Culture - Final No growth in 5 days. 03/02/22 10:31 Blood - Blood Anaerobic Blood Culture - Final No growth in 5 days. Assessment And Plan - Plan # Acute Non-ST Segment Elevation Myocardial Infarction # Acute on Chronic Anemia -with significant concern for GI bleed due to recent episode of melena stools # Peripheral Artery Disease s/p Left Femoral Artery Bypass # Hypertension # Dyslipidemia - [facility] 03/03 = s/p FOUZIA to RCA - [facility] 03/04 = s/p FOUZIA to mid-LAD Had no repeat tarry stools since admission to ICU. His hb is now much better at 8.0 this am. Pantoprazole dose to be continued. we will follow GI evaluation for endoscopy as Gastroenterology has been consulted. # Deconditioning and Left-Sided Weakness. 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 #GI bleed. Pending GI eval for possible EGD. PPI therapy started. Physician Review: Patient Assessed, Agree with Above Assessment and Plan
[2022-03-08] MEDS ORDERED: NA CHLORIDE 0.9% 250 ML ONE (14:09)
[2022-03-08] MEDS ORDERED: GOLYTELY 4000 ML PO ONE (17:00)
[2022-03-08 20:01] LABS: Hematocrit 21.5 % (39.6-49.0)
[2022-03-08] MEDS ORDERED: TICAGRELOR 90 MG TABLET PO SCH (21:00)
[2022-03-09 00:58] LABS: Hematocrit 18.8 % (39.6-49.0)
[2022-03-09] MEDS: IPRATROPIUM BROM 0.5MG/2.5ML NEB SCH ×4 (01:21→20:35)
[2022-03-09] MEDS: ALBUTEROL 2.5 MG/3 ML NEB SOL NEB SCH ×4 (01:21→20:35)
[2022-03-09] MEDS ORDERED: NA CHLORIDE 0.9% 250 ML ONE ×2 (01:33→04:21)
[2022-03-09] MEDS: PANTOPRAZOLE INJ 80 MG in NA CHLORIDE 0.9% 250 ML IV SCH ×2 (05:30→15:33)
[2022-03-09] MEDS: GABAPENTIN 100 MG CAP PO SCH ×2 (07:16→20:29)
[2022-03-09] MEDS: ATORVASTATIN 40 MG TAB PO SCH (07:16)
[2022-03-09] MEDS: MIDODRINE HCL 5 MG TABLET PO SCH ×3 (07:16→20:28)
[2022-03-09 07:17] LABS: Absolute Lymphocytes (CBC) 1.1 K/uL (0.7-4.9); Hematocrit 26.5 % (39.6-49.0); Lymphocytes % 11.1 % (15.3-44.8); MCV 87.6 fL (80-100); MPV 7.7 fL (7.6-11.3); RBC Red Blood Cell Count 3.03 M/uL (4.33-5.43)
[2022-03-09] MEDS: INSULIN -REGULAR HUMAN 50 UNIT/0.5 ML ML SQ SCH ×4 (07:30→21:13)
[2022-03-09 07:32] LABS: Potassium 3.4 mmol/L (3.5-5.1)
[2022-03-09 09:21] LABS: Hematocrit 25.8 % (39.6-49.0)
[2022-03-09] MEDS: NICOTINE 21 MG/PAT TD SCH (11:28)
[2022-03-09] MEDS ORDERED: propofoL 200 MG/20 ML VIAL IV ONE ×3 (12:54→13:16)
[2022-03-09] MEDS ORDERED: Phenylephrine HCl 10 MG/ML 1 ML VIAL ONE (12:55)
[2022-03-09] MEDS ORDERED: LIDOCAINE 1% MPF 5 ML VIAL ONE (12:55)
[2022-03-09] MEDS ORDERED: NA CHLORIDE 0.9% 1,000 ML ONE ×2 (13:10→14:50)
[2022-03-09] MEDS ORDERED: FENTANYL CITR 100 MCG/2 ML ONE (13:16)
[2022-03-09] MEDS ORDERED: MIDAZOLAM HCL 2 MG/2 ML INJ ONE (13:16)
[2022-03-09] MEDS ORDERED: LIDOCAINE 2% MPF 5 ML VIAL ONE (13:17)
[2022-03-09] MEDS ORDERED: ONDANSETRON 4 MG/2 ML VIAL ONE (13:18)
[2022-03-09] MEDS ORDERED: GLYCOPYRROLATE 0.2 MG/ML SYR ONE (13:19)
[2022-03-09] MEDS ORDERED: ROCURONIUM 50 MG/5 ML VIAL IV ONE (13:19)
[2022-03-09] MEDS ORDERED: NEOSTIGMINE 1 MG/ML -10 ML VIAL ONE (13:22)
[2022-03-09] MEDS ORDERED: EPHEDRINE SULF 50 MG/ML VIAL ONE (14:48)
--- NOTE | 2022-03-09 15:28 | PN ---
Date of Progress Note: 03/09/2022 Subjective: Seen by bedside. He has been having a zachary GI bleed, seen by GI, and planned for EGD a nd colonoscopy today. The Patient is status post PCI of critical LAD and RCA stenosis due to a recen t non-ST elevation myocardial infarction. Review of Systems: The patient denies having any chest pain or shortness of breath, but there is GI bleed as above. No abdominal pain, dysuria, polyuria, of urinary urgency. No skin rash. All other systems reviewed and they were negative. Physical Examination: Vital Signs: Reviewed. Head and Neck: Pupils are equal, reactive to light. Intact eye movements. No JVD. No cervical lym phadenopathy. Neck is supple. Thyroid is not enlarged. Lungs: Clear to auscultation bilaterally. No rhonchi, wheezing, or crackles. No accessory muscle u se. Heart: Regular rate and rhythm. No extra sounds. Abdomen: Soft, nontender. Bowel sounds positive. No organomegaly. No masses or hernia. No rigidi ty or rebound. Extremities: No clubbing or cyanosis. Intact pulses. Skin: No rash. Neurologic: Alert, awake, oriented x3. No acute focal deficits appreciated. Investigations: Creatinine is 0.97 and BUN is 40. His hemoglobin is up to 9.1. Assessment And Recommendations: 1.Non-ST elevation myocardial infarction, status post percutaneous coronary intervention of critical mid LAD stenosis and percutaneous coronary intervention of critical RCA stenosis. Did very well, juan saleh, is having GI bleed now and he is currently on baby aspirin and Brilinta. The dual antiplatele t therapy is essential given that the recent stent to the LAD and RCA; however, if the bleeding is ou t of control and unable to stop it, we will consider holding the dual antiplatelet therapy. We will discuss further with the primary hospitalist and GI after EGD and colonoscopy are done and if the wilber rce of bleeding was identified and could not be treated through the scope, an angiogram with emboliza tion might be a solution; however, we will await on the results of the EGD and colonoscopy today and consider a CT angiogram of the abdomen to evaluate the vasculature and assess the possibility of inte rvention down the road. 2.GI bleed. Hemoglobin is stable now. He is for EGD and colonoscopy today. We will plan to follow up on this and formalize the plan for the dual antiplatelets accordingly. /KATERYNA Voice ID: [id number] Report ID: [id number]
[2022-03-09 17:59] LABS: Hematocrit 22.6 % (39.6-49.0)
[2022-03-09] MEDS ORDERED: TICAGRELOR 90 MG TABLET PO SCH (21:00)
[2022-03-10 00:53] LABS: Hematocrit 16.6 % (39.6-49.0)
[2022-03-10] MEDS ORDERED: NA CHLORIDE 0.9% 250 ML ONE ×2 (01:38→05:06)
[2022-03-10] MEDS: ALBUTEROL 2.5 MG/3 ML NEB SOL NEB SCH ×4 (01:55→19:50)
[2022-03-10] MEDS: IPRATROPIUM BROM 0.5MG/2.5ML NEB SCH ×4 (01:55→19:50)
[2022-03-10] MEDS: PANTOPRAZOLE INJ 80 MG in NA CHLORIDE 0.9% 250 ML IV SCH (03:06)
[2022-03-10] MEDS: INSULIN -REGULAR HUMAN 50 UNIT/0.5 ML ML SQ SCH ×4 (07:30→20:10)
--- NOTE | 2022-03-10 08:22 | P.PN ---
Subjective Date of Service: 03/09/22 Patient with lower GI bleeding. Patient bleeding started after Brilinta. Repeat H&H. May need blood transfusion. Review of Systems 10-point ROS is otherwise unremarkable Physical Examination - Vital Signs Temperature: 97.6 F Blood Pressure: 125/89 Pulse: 74 Respirations: 15 Pulse Ox (%): 100 - Physical Exam General: Alert, In no apparent distress, Oriented x3 Respiratory: Clear to auscultation bilaterally, Normal air movement Cardiovascular: Regular rate/rhythm, Normal S1 S2, No murmurs Gastrointestinal: Normal bowel sounds, Soft and benign, Non-distended, No tenderness Musculoskeletal: No clubbing, No swelling, No tenderness Integumentary: No rashes Neurological: Other (left sided weakness) - Studies Medications List Reviewed: Yes Assessment & Plan - Problems (Diagnosis) (1) CAD (coronary artery disease) Current Visit: Yes Status: Acute (2) GIB (gastrointestinal bleeding) Current Visit: Yes Status: Acute (3) S/P coronary artery stent placement Current Visit: Yes Status: Acute - Plan Plan: 1. Continue with IV hydration and PPI drip 2. Continue with IV antibiotics 3. Continue with pain control 4. NPO 5. GI consultation appreciated; colonoscopy 6. Serial H&H, and we will monitor LFTs and lipase along with electrolytes. 7. Brilinta held 8. GI and DVT prophylaxis Discharge Plan: Home Plan to discharge in: Greater than 2 days - Advance Directives Does patient have a Living Will: No Does patient have a Durable POA for Healthcare: No - Code Status/Comfort Care Code Status: Full Code Physician Review: Patient Assessed, Agree with Above Assessment and Plan Critical Care: No Time Spent Managing PTS Care (In Minutes): 35
[2022-03-10] MEDS: MIDODRINE HCL 5 MG TABLET PO SCH (09:00)
[2022-03-10 09:31] LABS: Absolute Lymphocytes (CBC) 0.8 K/uL (0.7-4.9); Hematocrit 24.3 % (39.6-49.0); Lymphocytes % 11.7 % (15.3-44.8); MCV 85.8 fL (80-100); MPV 7.6 fL (7.6-11.3); Potassium 2.8 mmol/L (3.5-5.1); RBC Red Blood Cell Count 2.83 M/uL (4.33-5.43)
[2022-03-10] MEDS ORDERED: ALBUTEROL 2.5 MG/3 ML NEB SOL NEB ONE (09:54)
[2022-03-10] MEDS ORDERED: D50W 25 GM/50 ML SYRINGE IV ONE (09:55)
[2022-03-10] MEDS ORDERED: GLUCAGON 1 MG/VIAL IM PRN (09:56)
[2022-03-10] MEDS ORDERED: D50W 25 GM/50 ML SYRINGE IV PRN (09:56)
[2022-03-10] MEDS ORDERED: INSULIN -REGULAR HUMAN 50 UNIT/0.5 ML ML IV ONE (10:00)
[2022-03-10] MEDS ORDERED: DEXTROSE 10%-WATER 125 ML IV PRN (10:06)
[2022-03-10] MEDS: KCL 20 MEQ/100 mL IVPB 20 MEQ/100 ML BAG IV SCH ×3 (10:07→14:14)
[2022-03-10] MEDS: METRONIDAZOLE 500mg IVPB 500 MG/100 ML BAG IV SCH ×2 (10:08→17:04)
[2022-03-10] MEDS: CEFTRIAXONE 1,000 MG in NA CHLORIDE 0.9% 50 ML IVPB SCH ×2 (10:08→20:08)
[2022-03-10] MEDS: ATORVASTATIN 40 MG TAB PO SCH (10:08)
[2022-03-10] MEDS: GABAPENTIN 100 MG CAP PO SCH ×2 (10:08→20:09)
[2022-03-10] MEDS: NICOTINE 21 MG/PAT TD SCH (10:10)
[2022-03-10 16:52] LABS: Hematocrit 24.4 % (39.6-49.0)
[2022-03-10] MEDS: CLOPIDOGREL 75 MG TABLET PO SCH (20:09)
[2022-03-10] MEDS: MELATONIN 5 MG TABLET PO PRN (20:10)
[2022-03-10] MEDS: PANTOPRAZOLE 40MG TABLET PO SCH (20:39)
[2022-03-10] MEDS ORDERED: POTASSIUM CL SA 10 MEQ TAB PO ONE (21:00)
--- NOTE | 2022-03-10 21:27 | PN ---
Date of Progress Note: 03/10/2022 Subjective: Seen at bedside. Has no chest pain. Still passing blood with the stool. Found to have multiple ulcers in the colon suggestive of ischemia as per GI. Denies having any nausea, vomiting. No fever, skin rash, or headache. No shortness of breath. All other systems reviewed are negative. Objective: Vital Signs: Reviewed. Head and Neck: Pupils are equal, reactive to light. Intact eye movements. No JVD. No adenopathy. Neck: Supple. Thyroid is not enlarged. Lungs: Clear to auscultation bilaterally. No rhonchi, rales, or crackles. No accessory muscle use. Heart: Irregular. No extra sounds. Abdomen: Soft, nontender. Bowel sounds positive. No organomegaly. No masses or hernia. No rigidi ty or rebound. Extremities: No clubbing or cyanosis. Intact pulses. Skin: No rash. Neurologic: Alert, awake, no focal deficits appreciated. Investigations: Labs were reviewed. Assessment And Recommendations: 1.Non-ST elevation myocardial infarction due to new total occlusion of left anterior descending and right coronary artery status post successful percutaneous coronary intervention of both, however now he is on Brilinta and aspirin. Brilinta is held. He has been getting it once a day. I will switch to Plavix 75 mg, discontinue Brilinta. Continue aspirin baby dose at 81 mg. Explained to the patien t and discussed also with the medical staff that holding the anticoagulant definitely will put him at risk for acute stent thrombosis that could be fatal. His hemoglobin has been stable. My recommenda tions are to transfer to higher level of care facility for an IR, to do an angiogram and plan for pos sible correction of the issue causing the ischemia and ulcers in the colon and if the dual antiplatel ets are to be held, they have to be held under very close supervision with close monitoring and to be ready for angiogram in case stent thrombosis happened. I explained to him and he said that I have t o discuss with his sister. I will call her today and if they agree I will plan for [facility]. 2.GI bleed due to colon ulcers. Hemoglobin has been stable. 3.Anemia due to acute GI blood loss, status post transfusion. SR/MODL Voice ID: [id number] Report ID: [id number]
[2022-03-11] MEDS: METRONIDAZOLE 500mg IVPB 500 MG/100 ML BAG IV SCH ×3 (00:05→17:26)
[2022-03-11] MEDS: ALBUTEROL 2.5 MG/3 ML NEB SOL NEB SCH ×4 (01:20→20:00)
[2022-03-11] MEDS: IPRATROPIUM BROM 0.5MG/2.5ML NEB SCH ×4 (01:20→20:00)
[2022-03-11 05:25] LABS: Absolute Lymphocytes (CBC) 1.1 K/uL (0.7-4.9); Lymphocytes % 16.7 % (15.3-44.8); MCV 86.3 fL (80-100); MPV 7.3 fL (7.6-11.3); RBC Red Blood Cell Count 2.66 M/uL (4.33-5.43)
[2022-03-11 05:41] LABS: Phosphorus 1.7 mg/dL (2.5-4.9); Potassium 3.4 mmol/L (3.5-5.1)
[2022-03-11 05:45] LABS: Magnesium 1.4 mg/dL (1.8-2.4)
[2022-03-11] MEDS ORDERED: POTASS/SODIUM PHOSPHATE 1 PKT POWD.PACK PO SCH (06:00)
[2022-03-11] MEDS ORDERED: Magnesium Sulfate 2gm IVPB 2 G/50 ML BAG IV ONE (06:00)
[2022-03-11] MEDS ORDERED: POTASSIUM 25 MEQ EFFERV TAB PO ONE (08:00)
[2022-03-11] MEDS: INSULIN -REGULAR HUMAN 50 UNIT/0.5 ML ML SQ SCH ×4 (08:45→20:49)
[2022-03-11] MEDS: GABAPENTIN 100 MG CAP PO SCH ×2 (09:52→20:21)
[2022-03-11] MEDS: ATORVASTATIN 40 MG TAB PO SCH (09:53)
[2022-03-11] MEDS: CEFTRIAXONE 1,000 MG in NA CHLORIDE 0.9% 50 ML IVPB SCH ×2 (09:53→20:22)
[2022-03-11] MEDS: PANTOPRAZOLE 40MG TABLET PO SCH ×2 (09:53→17:26)
[2022-03-11] MEDS: NICOTINE 21 MG/PAT TD SCH (09:54)
[2022-03-11] MEDS: POTASS/SODIUM PHOSPHATE 1 PKT POWD.PACK PO SCH ×3 (09:56→11:18)
[2022-03-11] MEDS ORDERED: POTASSIUM CL SA 10 MEQ TAB PO ONE ×2 (10:00→17:00)
[2022-03-11 12:06] LABS: Absolute Lymphocytes (CBC) 0.6 K/uL (0.7-4.9); Hematocrit 25.9 % (39.6-49.0); Lymphocytes % 9.7 % (15.3-44.8); MCV 86.4 fL (80-100); MPV 7.3 fL (7.6-11.3)
[2022-03-11] MEDS: MORPHINE 2 MG/ML SYR IV ONE ×2 (13:23→13:30)
[2022-03-11] MEDS ORDERED: MORPHINE 2 MG/ML SYR IV ONE (19:51)
[2022-03-11] MEDS: CLOPIDOGREL 75 MG TABLET PO SCH (20:22)
[2022-03-12] MEDS: METRONIDAZOLE 500mg IVPB 500 MG/100 ML BAG IV SCH ×3 (00:16→17:04)
[2022-03-12] MEDS: IPRATROPIUM BROM 0.5MG/2.5ML NEB SCH ×4 (02:00→20:35)
[2022-03-12] MEDS: ALBUTEROL 2.5 MG/3 ML NEB SOL NEB SCH ×4 (02:00→20:35)
[2022-03-12 04:40] LABS: Absolute Lymphocytes (CBC) 1.1 K/uL (0.7-4.9); Lymphocytes % 14.5 % (15.3-44.8); MCV 85.6 fL (80-100); MPV 6.9 fL (7.6-11.3); RBC Red Blood Cell Count 2.81 M/uL (4.33-5.43)
[2022-03-12 04:59] LABS: Magnesium 1.5 mg/dL (1.8-2.4); Phosphorus 2.2 mg/dL (2.5-4.9); Potassium 3.9 mmol/L (3.5-5.1)
[2022-03-12] MEDS: PANTOPRAZOLE 40MG TABLET PO SCH ×2 (05:52→17:02)
[2022-03-12] MEDS: POTASS/SODIUM PHOSPHATE 1 PKT POWD.PACK PO SCH ×3 (05:52→10:14)
[2022-03-12] MEDS ORDERED: Magnesium Sulfate 2gm IVPB 2 G/50 ML BAG IV ONE (06:00)
[2022-03-12] MEDS ORDERED: POTASSIUM CL SA 10 MEQ TAB PO ONE (06:00)
[2022-03-12] MEDS: GABAPENTIN 100 MG CAP PO SCH ×2 (10:12→20:20)
[2022-03-12] MEDS: CEFTRIAXONE 1,000 MG in NA CHLORIDE 0.9% 50 ML IVPB SCH ×2 (10:13→20:20)
[2022-03-12] MEDS: NICOTINE 21 MG/PAT TD SCH (10:13)
[2022-03-12] MEDS: INSULIN -REGULAR HUMAN 50 UNIT/0.5 ML ML SQ SCH ×4 (10:14→20:21)
[2022-03-12] MEDS: ATORVASTATIN 40 MG TAB PO SCH (10:15)
[2022-03-12] MEDS: MORPHINE 2 MG/ML SYR IV PRN ×2 (13:21→23:05)
--- NOTE | 2022-03-12 14:25 | PN ---
Date of Progress Note: 03/12/2022 Subjective: Seen by bedside, doing clinically well. No further GI bleed episodes and hemoglobin has been stable. Review of Systems: No chest pain, shortness of breath, orthopnea, cough. No nausea, vomiting, diarrhea. No abdominal p ain, dysuria, polyuria, or urinary urgency. All other systems reviewed and they were negative. Physical Examination: Vital Signs: Temperature is 98.2, pulse 76, breathing at 15, blood pressure 138/72, saturating 97% o n room air. General: Pleasant middle-aged male, in no apparent distress. Head and Neck: Pupils are equal, reactive to light. Intact eye movements. No JVD. No cervical lym phadenopathy. Neck is supple. Thyroid is not enlarged. Lungs: Clear to auscultation bilaterally. No rhonchi, wheezing, or crackles. No accessory muscle u se. Heart: Regular rate and rhythm. No extra sounds. Abdomen: Soft, nontender. Bowel sounds positive. No organomegaly. No masses or hernia. No rigidi ty or rebound. Extremities: No clubbing or cyanosis. Intact pulses. Skin: No rash. Neurologic: Alert, awake, oriented x3. No acute focal deficits appreciated. Investigations: His hemoglobin is 8.5 and creatinine 0.74. Assessment And Recommendations: 1.Non-ST elevation myocardial infarction, status post percutaneous coronary intervention of severe m id LAD and RCA stenosis with unfortunate event of GI bleed. GI bleed appears to be stopped and tena meade continues to be on Plavix. We will plan to add aspirin to start tomorrow at low dose 81 mg and monitor closely. 2.Anemia due to acute GI blood loss and this is stabilized. 3.Dyslipidemia. Continue statin. SR/MODL Voice ID: [id number] Report ID: [id number]
--- NOTE | 2022-03-12 17:31 | P.PN ---
Date of Service: 03/10/22 Subjective Patient is status post colonoscopy. Colonoscopy with questionable ischemic ulcers. Cardiology recommended transfer however patient is refusing. GI recommending holding Brilinta for 24 hours. Continue monitoring H&H closely. Review of Systems 10-point ROS is otherwise unremarkable Physical Examination - Vital Signs reviewed - Physical Exam General: Alert, In no apparent distress, Oriented x3 Respiratory: Clear to auscultation bilaterally, Normal air movement Cardiovascular: Regular rate/rhythm, Normal S1 S2, No murmurs Gastrointestinal: Normal bowel sounds, Soft and benign, Non-distended, No tenderness Musculoskeletal: No clubbing, No swelling, No tenderness Neurological: Other (left sided weakness) Assessment & Plan - Problems (Diagnosis) (1) CAD (coronary artery disease) Current Visit: Yes Status: Acute (2) GIB (gastrointestinal bleeding) with ischemic ulcers s/p colonoscopy Current Visit: Yes Status: Acute (3) S/P coronary artery stent placement Current Visit: Yes Status: Acute (4) h/o of CVA with left sided weakness; Current Visit: Yes Status: Chronic - Plan Continue with POC as mentioned below: 1. Continue with IV hydration and PPI twice daily 2. Continue with IV antibiotics 3. Continue with pain control 4. NPO 5. GI consultation appreciated; colonoscopy revealed ischemic ulcers; pt refusing transfer 6. Serial H&H, 7. Brilinta held; restart with Plavix in the am 8. GI and DVT prophylaxis Discharge Plan: Home Plan to discharge in: Greater than 2 days - Advance Directives Does patient have a Living Will: No Does patient have a Durable POA for Healthcare: No - Code Status/Comfort Care Code Status: Full Code Physician Review: Patient Assessed, Agree with Above Assessment and Plan Critical Care: No Time Spent Managing PTS Care (In Minutes): 35
--- NOTE | 2022-03-12 17:41 | P.PN ---
Date of Service: 03/11/22 Subjective Patient is feeling better. No signs of active GI bleeding. H&H she is stabilizing. Spoke with family and they will be able to take patient home because the sister states she does home health. She does not want patient to go to a nursing facility. Change Brilinta to Plavix. Continue to monitor H& H. Will start patient on a clear liquid diet. Review of Systems 10-point ROS is otherwise unremarkable Physical Examination - Vital Signs reviewed - Physical Exam General: Alert, In no apparent distress, Oriented x3 Respiratory: Clear to auscultation bilaterally, Normal air movement Cardiovascular: Regular rate/rhythm, Normal S1 S2, No murmurs Gastrointestinal: Normal bowel sounds, Soft and benign, Non-distended, No tenderness Musculoskeletal: No clubbing, No swelling, No tenderness Neurological: Other (left sided weakness) Assessment & Plan - Problems (Diagnosis) (1) CAD (coronary artery disease) Current Visit: Yes Status: Acute (2) GIB (gastrointestinal bleeding) with ischemic ulcers s/p colonoscopy Current Visit: Yes Status: Acute (3) S/P coronary artery stent placement Current Visit: Yes Status: Acute (4) h/o of CVA with left sided weakness; Current Visit: Yes Status: Chronic - Plan Continue with POC as mentioned below: 1. Continue with IV hydration and PPI twice daily 2. Continue with IV antibiotics 3. Continue with pain control 4. Clear liquid diet 5. GI consultation appreciated; colonoscopy revealed ischemic ulcers; pt refusing transfer 6. Serial H&H, 7. Brilinta held; restart with Plavix in the am 8. GI and DVT prophylaxis Discharge Plan: Home Plan to discharge in: Greater than 2 days - Advance Directives Does patient have a Living Will: No Does patient have a Durable POA for Healthcare: No - Code Status/Comfort Care Code Status: Full Code Physician Review: Patient Assessed, Agree with Above Assessment and Plan Critical Care: No Time Spent Managing PTS Care (In Minutes): 35
--- NOTE | 2022-03-12 17:45 | P.PN ---
Date of Service: 03/12/22 Subjective patient with no more GI bleeding. Hemoglobin is stabilized. Patient denies any chest pain. Will advance to a soft diet. 03/11 Patient is feeling better. No signs of active GI bleeding. H&H she is stabilizing. Spoke with family and they will be able to take patient home because the sister states she does home health. She does not want patient to go to a nursing facility. Change Brilinta to Plavix. Continue to monitor H& H. Will start patient on a clear liquid diet. Review of Systems 10-point ROS is otherwise unremarkable Physical Examination - Vital Signs reviewed - Physical Exam General: Alert, In no apparent distress, Oriented x3 Respiratory: Clear to auscultation bilaterally, Normal air movement Cardiovascular: Regular rate/rhythm, Normal S1 S2, No murmurs Gastrointestinal: Normal bowel sounds, Soft and benign, Non-distended, No tend erness Musculoskeletal: No clubbing, No swelling, No tenderness Neurological: Other (left sided weakness) Assessment & Plan - Problems (Diagnosis) (1) CAD (coronary artery disease) Current Visit: Yes Status: Acute (2) GIB (gastrointestinal bleeding) with ischemic ulcers s/p colonoscopy Current Visit: Yes Status: Acute (3) S/P coronary artery stent placement Current Visit: Yes Status: Acute (4) h/o of CVA with left sided weakness; Current Visit: Yes Status: Chronic - Plan Continue with POC as mentioned below: 1. Continue with IV hydration and PPI twice daily 2. Start PT 3. Continue with pain control prn 4. Soft diet 5. GI consultation appreciated; colonoscopy revealed ischemic ulcers; pt refusing transfer 6. Serial H&H, 7. Brilinta DC'd; restart with Plavix in the am 8. GI and DVT prophylaxis Discharge Plan: Home Plan to discharge in: Greater than 2 days - Advance Directives Does patient have a Living Will: No Does patient have a Durable POA for Healthcare: No - Code Status/Comfort Care Code Status: Full Code Physician Review: Patient Assessed, Agree with Above Assessment and Plan Critical Care: No Time Spent Managing PTS Care (In Minutes): 35
[2022-03-12] MEDS: CLOPIDOGREL 75 MG TABLET PO SCH (20:20)
[2022-03-12] MEDS: MELATONIN 5 MG TABLET PO PRN (23:05)
[2022-03-13] MEDS: METRONIDAZOLE 500mg IVPB 500 MG/100 ML BAG IV SCH ×3 (00:24→16:47)
[2022-03-13] MEDS: IPRATROPIUM BROM 0.5MG/2.5ML NEB SCH ×3 (02:00→14:00)
[2022-03-13] MEDS: ALBUTEROL 2.5 MG/3 ML NEB SOL NEB SCH ×3 (02:00→14:00)
[2022-03-13] MEDS: MORPHINE 2 MG/ML SYR IV PRN ×3 (04:59→21:23)
[2022-03-13 05:19] VITALS: BMI 26.4
[2022-03-13 05:22] LABS: Absolute Lymphocytes (CBC) 1.1 K/uL (0.7-4.9); Lymphocytes % 15.7 % (15.3-44.8); MCV 86.2 fL (80-100); MPV 7.2 fL (7.6-11.3)
[2022-03-13 05:39] LABS: Magnesium 1.5 mg/dL (1.8-2.4); Phosphorus 2.9 mg/dL (2.5-4.9); Potassium 3.9 mmol/L (3.5-5.1)
[2022-03-13] MEDS: INSULIN -REGULAR HUMAN 50 UNIT/0.5 ML ML SQ SCH ×4 (07:30→21:22)
[2022-03-13] MEDS: NICOTINE 21 MG/PAT TD SCH (08:26)
[2022-03-13] MEDS: PANTOPRAZOLE 40MG TABLET PO SCH ×2 (08:26→16:48)
[2022-03-13] MEDS: ASPIRIN EC 81 MG TAB PO SCH (08:26)
[2022-03-13] MEDS: ATORVASTATIN 40 MG TAB PO SCH (08:26)
[2022-03-13] MEDS: GLIMEPIRIDE 2 MG TABLET PO SCH (08:26)
[2022-03-13] MEDS: GABAPENTIN 100 MG CAP PO SCH ×2 (08:26→21:23)
[2022-03-13] MEDS: CEFTRIAXONE 1,000 MG in NA CHLORIDE 0.9% 50 ML IVPB SCH ×2 (08:27→21:22)
[2022-03-13] MEDS: XIGDUO PO SCH (08:53)
[2022-03-13] MEDS ORDERED: Magnesium Sulfate 2gm IVPB 2 G/50 ML BAG IV ONE (09:00)
[2022-03-13] MEDS ORDERED: POTASSIUM CL SA 10 MEQ TAB PO ONE (09:00)
--- NOTE | 2022-03-13 17:04 | PN ---
Date of Progress Note: 03/13/2022 Subjective: Seen by bedside. Clinically doing well. No chest pain. No further GI bleed. He is on Plavix and aspirin now, tolerating it very well. Review of Systems: No chest pain, shortness of breath, orthopnea, cough. No nausea, vomiting, diarrhea, abdominal pain. No dysuria, polyuria, or urinary urgency. All other systems reviewed and they were negative. Physical Examination: Vital Signs: Reviewed. Head and Neck: Pupils are equal, reactive to light. Intact eye movements. No JVD. No cervical lym phadenopathy. Neck is supple. Thyroid is not enlarged. Lungs: Clear to auscultation bilaterally. No rhonchi, wheezing, or crackles. No accessory muscle u se. Heart: Regular rate and rhythm. No extra sounds. Abdomen: Soft, nontender. Bowel sounds positive. No organomegaly. No masses or hernia. No rigidi ty or rebound. Extremities: No clubbing or cyanosis. Intact pulses. Skin: No rash. Neurologic: Alert, awake. No acute focal deficits appreciated. Lymph Nodes: No cervical or axillary lymphadenopathy. Investigations: Labs were reviewed. His hemoglobin today is 8.7. Assessment And Recommendations: 1.Non-ST elevation myocardial infarction, status post percutaneous coronary intervention of LAD and RCA during this hospital stay, now tolerating aspirin and Plavix very well. Continue current managem ent. 2.Severe anemia due to acute GI blood loss that has stopped. Continue to monitor. SR/MODL Voice ID: [id number] Report ID: [id number]
[2022-03-13] MEDS: CLOPIDOGREL 75 MG TABLET PO SCH (21:23)
[2022-03-13] MEDS: MELATONIN 5 MG TABLET PO PRN (21:23)
[2022-03-14] MEDS: METRONIDAZOLE 500mg IVPB 500 MG/100 ML BAG IV SCH ×3 (05:26→16:22)
--- NOTE | 2022-03-14 06:28 | P.PN ---
Date of Service: 03/13/22 Subjective patient is doing well with no new complaints. Clinical symptoms continue to improve. Hemoglobin is stable. Plan is to continue working with physical therapy. We will try to arrange for discharge home as a sister does not want to go to any facilities and she states she will help with his care at home. Patient with no signs of active bleeding. Patient currently on Plavix and H&H is stable. Tolerating his soft diet. Review of Systems 10-point ROS is otherwise unremarkable Physical Examination - Vital Signs reviewed - Physical Exam General: Alert, In no apparent distress, Oriented x3 Respiratory: Clear to auscultation bilaterally, Normal air movement Cardiovascular: Regular rate/rhythm, Normal S1 S2, No murmurs Gastrointestinal: Normal bowel sounds, Soft and benign, Non-distended, No tenderness Musculoskeletal: No clubbing, No swelling, No tenderness Neurological: Other (left sided weakness) Assessment & Plan - Problems (Diagnosis) (1) CAD (coronary artery disease) Current Visit: Yes Status: Acute (2) GIB (gastrointestinal bleeding) with ischemic ulcers s/p colonoscopy Current Visit: Yes Status: Acute (3) S/P coronary artery stent placement Current Visit: Yes Status: Acute (4) h/o of CVA with left sided weakness; Current Visit: Yes Status: Chronic - Plan Continue with POC as mentioned below: 1. Continue with IV hydration and PPI twice daily 2. Start PT 3. Continue with pain control prn 4. Soft diet 5. GI consultation appreciated; colonoscopy revealed ischemic ulcers; pt refusing transfer 6. Serial H&H, 7. Brilinta DC'd; on Plavix; No evidence of bleeding 8. GI and DVT prophylaxis Discharge Plan: Home with home health Plan to discharge in: Greater than 2 days - Advance Directives Does patient have a Living Will: No Does patient have a Durable POA for Healthcare: No - Code Status/Comfort Care Code Status: Full Code Physician Review: Patient Assessed, Agree with Above Assessment and Plan Critical Care: No Time Spent Managing PTS Care (In Minutes): 35
[2022-03-14] MEDS: INSULIN -REGULAR HUMAN 50 UNIT/0.5 ML ML SQ SCH ×4 (07:30→20:39)
[2022-03-14 08:43] LABS: Absolute Lymphocytes (CBC) 0.8 K/uL (0.7-4.9); Hematocrit 28.3 % (39.6-49.0); Lymphocytes % 9.6 % (15.3-44.8); MCV 87.8 fL (80-100); RBC Red Blood Cell Count 3.22 M/uL (4.33-5.43)
[2022-03-14] MEDS: XIGDUO PO SCH (09:00)
[2022-03-14] MEDS: CEFTRIAXONE 1,000 MG in NA CHLORIDE 0.9% 50 ML IVPB SCH ×2 (10:18→20:36)
[2022-03-14] MEDS: ASPIRIN EC 81 MG TAB PO SCH (10:19)
[2022-03-14] MEDS: GLIMEPIRIDE 2 MG TABLET PO SCH (10:19)
[2022-03-14] MEDS: GABAPENTIN 100 MG CAP PO SCH ×2 (10:19→20:38)
[2022-03-14] MEDS: ATORVASTATIN 40 MG TAB PO SCH (10:19)
[2022-03-14] MEDS: PANTOPRAZOLE 40MG TABLET PO SCH ×2 (10:19→16:22)
[2022-03-14] MEDS: MORPHINE 2 MG/ML SYR IV PRN ×2 (10:19→16:22)
[2022-03-14] MEDS: NICOTINE 21 MG/PAT TD SCH (10:20)
[2022-03-14 11:42] LABS: Magnesium 1.7 mg/dL (1.8-2.4); Potassium 4.1 mmol/L (3.5-5.1)
--- NOTE | 2022-03-14 15:19 | P.PN ---
Subjective Date of Service: 03/14/22 Chief Complaint: Chest pain and shortness of breath. No acute events overnight. Denies chest pain, palpitations, shortness of breath, nausea/vomiting, hematochezia, or melena. Hemoglobin has stable at 9.7. Review of Systems 10-point ROS is otherwise unremarkable Neurological: Weakness (left-sided weakness) Physical Examination - Vital Signs Temperature: 97.0 F Blood Pressure: 168/78 Pulse: 87 Respirations: 16 Pulse Ox (%): 96 - Studies Medications List Reviewed: Yes Assessment And Plan - Plan - Physical Exam General: Alert, In no apparent distress, Oriented x3 HEENT: Atraumatic, PERRLA, Mucous membr. moist/pink, EOMI, Sclerae nonicteric Neck: Supple, JVD not distended Respiratory: Clear to auscultation bilaterally, Normal air movement Cardiovascular: No edema, Regular rate/rhythm, Normal S1 S2, No gallops, No rubs, No murmurs Gastrointestinal: Normal bowel sounds, Soft and benign, Non-distended, No tenderness, No rebound, No guarding Musculoskeletal: No clubbing Integumentary: No rashes Neurological: Normal speech, Sensation intact, Cranial nerves 3-12 intact, Normal affect, Abnormal strength (3+/5 strength in LUE/LLE. 5/5 strength in RUE/RLE. 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 Holcomb) can be arranged - Spoke with Dr. Holcomb who will assist in making this appointment # Acute Non-ST Segment Elevation Myocardial Infarction # Peripheral Artery Disease s/p Left Femoral Artery Bypass # Hypertension # Dyslipidemia - Cardiology consulted - recommendations appreciated - [facility] 03/03 = s/p FOUZIA to RCA - [facility] 03/04 = s/p FOUZIA to mid-LAD - EKG reportedly without STEMI criteria - Troponin trend: 1515.5 -> 2830.2 -> 5385.9 -> 4475.4 -> 2748.9 - TTE = "hypokinesis. ejection fraction 41%. no effusion." - Continue aspirin, atrovastatin, and clopidogrel - Plan to start beta-mery and DOV-I/ARB if blood pressure allows # Deconditioning and Left-Sided Weakness # Reported History of CVA with Residual Left-Sided Deficits # Subacute Right Cerebral Hemisphere Infarcts He reports that this unilateral weakness is chronic from a prior CVA. 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 Discharge Plan: Home Plan to discharge in: 24 Hours
--- NOTE | 2022-03-14 20:19 | PN ---
Date of Progress Note: 03/14/2022 Subjective: Seen by bedside. He is asymptomatic. No further bleeding episodes. No chest pain. Review of Systems: No chest pain, shortness of breath, orthopnea, cough. No nausea, vomiting, diarrhea. No abdominal p ain. No dysuria, polyuria, or urinary urgency. No skin rash. All other systems reviewed and they a re negative. Physical Examination: Vital Signs: Temperature is 97.0, pulse 87, breathing at 16, blood pressure 168/78, saturating at 96 % on room air. General: Pleasant middle-aged male, in no apparent distress. Head and Neck: Pupils are equal, reactive to light. Intact eye movements. No JVD. No cervical lym phadenopathy. Neck is supple. Thyroid is not enlarged. Lungs: Clear to auscultation bilaterally. No rhonchi, rales, or crackles. No accessory muscle use. Heart: Regular rate and rhythm. No extra sounds. Abdomen: Soft, nontender. Bowel sounds positive. No organomegaly. No masses or hernia. No rigidi ty or rebound. Extremities: No edema, clubbing, or cyanosis. Intact pulses. Skin: No rash. Neurologic: Alert, awake, oriented x3. No acute focal deficits appreciated. Lymph Nodes: No cervical or axillary lymphadenopathy. Investigations: Labs were reviewed. Assessment And Recommendations: 1.Non-ST elevation myocardial infarction, status post percutaneous coronary intervention of severe l eft anterior descending and right coronary artery stenosis, doing well. Continue Plavix and aspirin for now. 2.Anemia due to gastrointestinal blood loss that was acute and this has resolved. Continue current medications. 3.Gastrointestinal bleed. At this point, is completely resolved and hemoglobin is improving. Kayleigh nue to monitor. From Cardiology standpoints, this patient can be released home on aspirin and Plavix, to follow up wi th me in the office in 2-3 weeks. SR/MODL Voice ID: [id number] Report ID: [id number]
[2022-03-14] MEDS: CLOPIDOGREL 75 MG TABLET PO SCH (20:38)
[2022-03-14] MEDS ORDERED: MAGNESIUM SULFATE 1 gm IVPB 1 GM/100 ML BAG IV ONE (21:00)
[2022-03-15] MEDS: METRONIDAZOLE 500mg IVPB 500 MG/100 ML BAG IV SCH ×2 (01:04→08:30)
--- NOTE | 2022-03-15 01:55 | CON ---
Reason For Consultation: Consultation called because of strokes involving the entire right hemispher e including the right frontal, parietal, and occipital lobes. History Of Present Illness: Mr. Wright is a 61-year-old patient, who came to [facility] on March 02, 2022 with chest pain and shortness of breath. He was noted to have left-sided paresis fr om his stroke that affected the right cerebral hemisphere. His chest pain was 10/10, throbbing in qu ality. He was evaluated by Cardiology and has been worked up from that standpoint. Regarding his st roke, his head CT scan while in hospital did not show hemorrhagic conversion. He is actually diagnos ed as swell with a [id number] elevated myocardial infarction and has had percutaneous coronary in tervention of the left anterior descending and right coronary artery. He is on aspirin and Plavix as per Cardiology. The patient does require aggressive physical therapy to facilitate his improvement. The patient does not want to do however any physical therapy. He wants to go home and potentially do therapy at home. Past Medical History: Diabetes mellitus, hypertension, carotid surgery, and multiple strokes. Family History: Noncontributory. Social History: Smokes multiple cigarettes daily. Occasional alcohol use and caffeinated beverages. Allergies: NO KNOWN DRUG ALLERGIES. Medications: At home, Norvasc 5 mg daily, atorvastatin 40 mg at night, gabapentin 200 mg twice daily , Amaryl 4 mg daily, levothyroxine 50 mcg daily, losartan 100 mg daily, Ultram 50 mg twice daily, Kef yuli 50 mg twice daily. Review of Systems: He has had the chest pain as noted, left-sided paresis as well; however, no recent fevers or chills, myalgias, arthralgias, rash, weight change, or psychiatric issues. Physical Examination: Vital Signs: Blood pressure 171/71, pulse 83, respiratory rate 14 to 18, temperature 97.0, oxygen sa turation 96% on room air. Weight 195 pounds. Height 6 feet. BMI 26.5. General: Mr. Wright is resting in bed. He does appear disheveled. HEENT: He is otherwise normocephalic, atraumatic. Sclerae anicteric. Oropharynx is moist and pink. Neck: Supple. Chest: Clear. Heart: Regular. Neurological: He has significant left upper and lower extremity paresis. Facial involvement as well . Some dysarthria. Sensory exam decreased to light touch, temperature, and pinprick on the left com pared to right upper and lower extremity. Coordination intact in the right upper extremity. There i s significant weakness in the left upper and lower extremity. Gait, he requires maximal assistance f or his transfers and ambulation. Assessment: Mr. Wright is a 61-year-old patient with a large right hemispheric stroke producing sig nificant left upper and lower extremity weakness and he had a myocardial infarction as well. He has diabetes mellitus, hypertension, and dyslipidemia. He also smokes. Plan: 1.The patient does require aggressive physical therapy best done inpatient. However, the patient do es not want to be admitted to the hospital for physical therapy. 2.Aggressive management of hypertension, diabetes mellitus, dyslipidemia. 3.Aspirin, Plavix, folic acid, and statin. 4.If he is discharged from hospital, he should follow up with Dr. Garcia within a couple of weeks. HOANG/KATERYNA Voice ID: [id number] Report ID: [id number]
[2022-03-15 02:46] VITALS: O2SAT 95
[2022-03-15] MEDS: MORPHINE 2 MG/ML SYR IV PRN (04:28)
[2022-03-15] MEDS: INSULIN -REGULAR HUMAN 50 UNIT/0.5 ML ML SQ SCH ×2 (08:28→11:31)
[2022-03-15] MEDS: ASPIRIN EC 81 MG TAB PO SCH (08:29)
[2022-03-15] MEDS: GABAPENTIN 100 MG CAP PO SCH (08:29)
[2022-03-15] MEDS: ATORVASTATIN 40 MG TAB PO SCH (08:29)
[2022-03-15] MEDS: GLIMEPIRIDE 2 MG TABLET PO SCH (08:29)
[2022-03-15] MEDS: CEFTRIAXONE 1,000 MG in NA CHLORIDE 0.9% 50 ML IVPB SCH (08:30)
[2022-03-15] MEDS: NICOTINE 21 MG/PAT TD SCH (08:30)
[2022-03-15] MEDS: XIGDUO PO SCH (08:31)
--- NOTE | 2022-03-15 08:44 | P.DS ---
Admission Date: 03/03/22 Discharge Date: 03/15/22 Primary Care Provider: Dr. Holcomb Disposition: DC HOME/HOME HEALTH CARE Discharge Condition: GOOD Reason for Admission: Chest pain and shortness of breath. Consultations: 1. Cardiology 2. Neurology 3. 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 Thom Wright is a 61 year old male with a past medical history significant for peripheral artery disease s/p left femoral artery bypass, hypertension, dyslipidemia, recent CVA with residual leftsided deficits, type 2 diabetes mellitus, and tobacco use disorder who was admitted to the [facility] on 03/03/2022 for chest pain. He was admitted to the Medicine service. Upon further evaluation, he was found to have an NSTEMI. Cardiology was consulted and he was evaluated by Dr. Suazo. He underwent a 2-step left-sided cardiac catheterization, for which a drug- eluting stent was placed in the right coronary artery on day 1 and a drug- eluting stent was placed in the mid-left anterior descending artery on day 2. He did well postoperatively and was started on aspirin and ticagrelor. However, shortly after starting this medication, he began developing significant melena and blood loss anemia. Of note, he has significant acute blood loss anemia, which required 7 units of packed red blood cells over his hospitalization. Gastroenterology was consulted and he was evaluated by Dr. Benjamin. He underwent an esophagogastroduodenoscopy and a colonoscopy. During the esophagogastroduodenoscopy he was found to have a duodenal arteriovenous malformation, which was treated with argon plasma coagulation. During the colonoscopy, he was found to have a colonic ischemic ulcer that was treated with clipping. He did well postoperatively, and with the assistance of Cardiology, he was resumed on dual antiplatelet therapy with aspirin and clopidogrel. He has not had any recurrent bleeding with clopidogrel. It was recommended that he be transferred for a higher level of care to a facility with advanced Gastroenterol ogy services. However, he declined transfer. Gastroenterology monitored him here and felt that he should be stable given no recurrent bleeding over the last 3-4 days. I advised him and his sister (Ms. Garner), that a recurrent bleed cannot be predicted. However, they still refused transfer, so his decision for conservative management was respected. In regards to his subacute CVA, PT evaluated him and recommended SNF placement. He declined SNF, stating that he never wanted to be placed in a facility. As an alternative option, we offered to arrange home health services so that he could receive physical therapy at home. He has agreed to this, and with the assistance of our case management team, this has been arranged. They have been extensively counseled regarding the risk of being discharged home without having the colonic ulcers evaluated. He was also informed of the risk for ischemic bowel to exhibit bowel necrosis, perforation, and potentially . They accept this risk and would like to be discharged home. He has medical decision making capacity, and we respect his wishes. On 03/15/2022, he was seen on morning rounds and deemed medically stable for discharge. He was discharged with instructions to schedule follow-up appointments with his PCP (Dr. Holcomb) in 3-5 days, with Gastroenterology (Dr. Benjamin) in 3-5 days, with Cardiology (Dr. Suazo) in 3-5 days, with Neurology (Dr. Garcia) in 5-7 days. He was provided prescriptions for clopidogrel and pantoprazole. He and his sister were given the opportunity to ask questions and reported no further questions. Furthermore, all questions were answered to the best of my ability. Of note, it appears that ticagrelor (Brilinta) has already been prescribed. I have called [facility], spoke with the pharmacist, and discontinued this prescription Today, I personally spent 40 minutes on his case, of which greater than 50% of the time was spent in patient education, counseling, and coordination of care as described above. - Physical Exam General: Alert, In no apparent distress, Oriented x3 HEENT: Atraumatic, PERRLA, Mucous membr. moist/pink, EOMI, Sclerae nonicteric Neck: Supple, JVD not distended Respiratory: Clear to auscultation bilaterally, Normal air movement Cardiovascular: No edema, Regular rate/rhythm, Normal S1 S2, No gallops, No rubs, No murmurs Gastrointestinal: Normal bowel sounds, Soft and benign, Non-distended, No tenderness, No rebound, No guarding Musculoskeletal: No clubbing Integumentary: No rashes Neurological: Normal speech, Sensation intact, Cranial nerves 3-12 intact, Normal affect, Abnormal strength (3+/5 strength in LUE/LLE. 5/5 strength in RUE/RLE.) Vital Signs/Physical Exam: Temp Pulse Resp BP Pulse Ox 97.3 F 75 16 134/77 95 03/15/22 07:00 03/15/22 07:00 03/15/22 07:00 03/15/22 07:00 03/15/22 07:00 Laboratory Data at Discharge: WBC 8.80 K/uL (4.3-10.9) D 03/14/22 08:12 Hgb 9.7 g/dL (13.6-17.9) L 03/14/22 08:12 Hct 28.3 % (39.6-49.0) L 03/14/22 08:12 Plt Count 299 K/uL (152-406) 03/14/22 08:12 PT 11.9 SECONDS (9.5-12.5) 03/02/22 13:59 INR 1.08 03/02/22 13:59 APTT 35.9 SECONDS (24.3-36.9) 03/03/22 18:12 Sodium 134 mmol/L (136-145) L 03/14/22 08:12 Potassium 4.1 mmol/L (3.5-5.1) 03/14/22 08:12 BUN 10 mg/dL (7-18) 03/14/22 08:12 Creatinine 0.80 mg/dL (0.55-1.3) 03/14/22 08:12 Glucose 261 mg/dL (74-106) H 03/14/22 08:12 Phosphorus 2.9 mg/dL (2.5-4.9) 03/13/22 04:30 Magnesium 1.7 mg/dL (1.8-2.4) L 03/14/22 08:12 Total Bilirubin 0.4 mg/dL (0.2-1.0) 03/07/22 10:32 AST 38 U/L (15-37) H 03/07/22 10:32 ALT 38 U/L (12-78) 03/07/22 10:32 Alkaline Phosphatase 135 U/L (45-117) H 03/07/22 10:32 Lipase 886 U/L (73-393) H 03/03/22 04:55 Home Medications: Amlodipine [Norvasc*] 5 mg PO DAILY 01/22/22 Atorvastatin Calcium 40 mg PO DAILY 01/22/22 Dapagliflozin/Metformin HCl [Xigduo Xr 10 mg-1,000 mg Tab] 1 each PO DAILY 01/22/22 Gabapentin 200 mg PO BID 01/22/22 Glimepiride [Amaryl] 4 mg PO DAILY 01/22/22 Levothyroxine Sodium [Levothyroxine] 50 mcg PO DAILY 01/22/22 Losartan Potassium 100 mg PO DAILY 01/22/22 Tramadol HCl [Ultram] 50 mg PO BID 01/22/22 cilostazoL [Cilostazol] 100 mg PO BID 01/22/22 Aspirin [Aspirin EC 81 MG] 162 mg PO DAILY #60 03/09/22 Midodrine HCl [Proamatine*] 5 mg PO TID #90 tab 03/09/22 Clopidogrel Bisulfate [Plavix*] 75 mg PO BEDTIME #30 tab 03/15/22 Pantoprazole [Protonix Tab*] 40 mg PO BIDAC #60 tab 03/15/22 New Medications: Aspirin [Aspirin EC 81 MG] 162 mg PO DAILY #60 Clopidogrel Bisulfate [Plavix*] 75 mg PO BEDTIME #30 tab Midodrine HCl [Proamatine*] 5 mg PO TID #90 tab Pantoprazole [Protonix Tab*] 40 mg PO BIDAC #60 tab Physician Discharge Instructions: 1. Please schedule a follow-up appointment with your PCP (Dr. Holcomb) in 3-5 days 2. Please schedule a follow-up appointment with Cardiology (Dr. Suazo) in 5-7 days 3. Please schedule a follow-up appointment with Gastroenterology (Dr. Benjamin) in 3-5 days 4. Please schedule a follow-up appointment with Neurology (Dr. Garcia) in 5-7 days Diet: AHA Activity: Ad andi Followup: Jacques Holcomb DO [ACTIVE - CAN ADMIT] - (Call to schedule appointment. ) Stephen Garcia MD [ASSOCIATE-ACTIVE - CAN ADMIT] - (Call to schedule appointment. ) Jeffrey Suazo MD [ACTIVE - CAN ADMIT] - (Call to schedule appointment) Sony Benjamin MD [ACTIVE - CAN ADMIT] - (Call to schedule appointment) Time spent managing pt's care (in minutes): 40
[2022-03-15] MEDS: PANTOPRAZOLE 40MG TABLET PO SCH (09:49)
[2022-03-15 12:10] VITALS: BP 174/80; TEMP 97.7
== END 2022-03-15 13:46 | disposition home health service (06) | DRG 246 ==
LOC: ER 05:37 → ERHOLD 09:14 → 4TH 20:56 → OBSVTOIN 03-03 12:32 → 3RD-ICU 03-07 12:45 → 4TH 03-13 11:50
PROVIDERS: ADMIT Internal Medicine; ATTEND Internal Medicine
PROC: 027034Z Dilation of Coronary Artery, One Artery with Drug-eluting Intraluminal Device, Percutaneous Approach (ICD-10-PCS; principal; 2022-03-04)
PROC: 30233N1 Transfusion of Nonautologous Red Blood Cells into Peripheral Vein, Percutaneous Approach (ICD-10-PCS; 2022-03-07)
PROC: 3E0G8KZ Introduction of Other Diagnostic Substance into Upper GI, Via Natural or Artificial Opening Endoscopic (ICD-10-PCS; 2022-03-09)
PROC: 0W3P8ZZ Control Bleeding in Gastrointestinal Tract, Via Natural or Artificial Opening Endoscopic (ICD-10-PCS; 2022-03-09)
DX: I21.A1 Myocardial infarction type 2 (principal); I63.9 Cerebral infarction, unspecified; I50.33 Acute on chronic diastolic (congestive) heart failure; K31.811 Angiodysplasia of stomach and duodenum with bleeding; K85.90 Acute pancreatitis without necrosis or infection, unspecified; I69.354 Hemiplegia and hemiparesis following cerebral infarction affecting left non-dominant side; C68.9 Malignant neoplasm of urinary organ, unspecified; D62 Acute posthemorrhagic anemia; K92.1 Melena; E11.40 Type 2 diabetes mellitus with diabetic neuropathy, unspecified; E11.51 Type 2 diabetes mellitus with diabetic peripheral angiopathy without gangrene; I73.9 Peripheral vascular disease, unspecified; I11.0 Hypertensive heart disease with heart failure; E78.5 Hyperlipidemia, unspecified; F17.210 Nicotine dependence, cigarettes, uncomplicated; I25.10 Atherosclerotic heart disease of native coronary artery without angina pectoris; Z95.820 Peripheral vascular angioplasty status with implants and grafts; R31.29 Other microscopic hematuria
CPT/HCPCS: 36415; 70450; 71045; 71275; 74177; 80048; 80053; 80076; 80307; 81001; 82274; 82607; 82746; 82947; 83540; 83605; 83690; 83735; 83880; 84100; 84132; 84145; 84439; 84443; 84484; 85014; 85018; 85025; 85044; 85049; 85347; 85610; 85730; 86850; 86900; 86901; 87040; 87086; 87088; 92928; 93005; 93306; 93454; 94640; 96365; 96375; 97110; 97161; 97164; 97530; 99285; C1725; C1893; C9113; G0378; J1644; J1650; J1815; J1940; J2001; J2185; J2250; J2270; J2370; J2405; J2704; J2710; J3010; J3475; J3480; J7030; J7040; J7050; J7120; P9016; Q9967; U0003

== ENCOUNTER 2022-04-17 15:25 | Inpatient (IN) | payer MEDICARE, OTHER ==
--- OUTSIDE RECORDS SUMMARY | 2022-04-17 15:28 | XMS REPORT | Continuity of Care Document ---
:1960 Author Organization [facility] Address [address] [place] [address] Dr. Coy [address] [place] [id number] Care Team Providers Name Role Phone Unavailable Unavailable Unavailable Payers Payer Name Policy Type Policy Number Effective Date Expiration Date [facility] [id number] 2022 (MEDICARE 00:00:00 REPLACEMENT HMO) Problems This patient has no known problems. Allergies, Adverse Reactions, Alerts This patient has no known allergies or adverse reactions. Medications This patient has no known medications. Procedures This patient has no known procedures. Encounters Start End Encounter Admission Attending Care Care Encounter Source Date/Time Date/Time Type Type Clinicians Facility Department ID 2022-02-24 2022-02-24 Outpatient [facility] [id number] [facility] 00:00:00 00:00:00 [id number] [facility] Results This patient has no known results.
[2022-04-17] MEDS ORDERED: NA CHLORIDE 0.9% 100 ML IV ONE (15:53)
[2022-04-17] MEDS ORDERED: PIPERACIL/TAZO 3.375 GM VIAL IV ONE (15:53)
[2022-04-17] MEDS ORDERED: ACETAMINOPHEN 325 MG TABLET ONE (15:54)
[2022-04-17] MEDS ORDERED: LIDOCAINE JELLY 2%- 5 ML TUBE ONE (16:01)
[2022-04-17 16:07] LABS: Absolute Lymphocytes (CBC) 0.2 K/uL (0.7-4.9); Hematocrit 30.4 % (39.6-49.0); Lymphocytes % 2.1 % (15.3-44.8); MCV 89.6 fL (80-100); MPV 8.5 fL (7.6-11.3); RBC Red Blood Cell Count 3.39 M/uL (4.33-5.43)
[2022-04-17 16:13] LABS: Protime INR 1.18
[2022-04-17 16:18] LABS: Urine Blood 3+ (Negative); Urine Glucose 3+ (Negative); Urine Protein 3+ (Negative)
[2022-04-17 16:29] LABS: Albumin 2.2 g/dL (3.4-5.0); Bilirubin Total 0.5 mg/dL (0.2-1.0); Potassium 3.6 mmol/L (3.5-5.1); Protein, Total 6.5 g/dL (6.4-8.2); Troponin High Sensitivity 39.7 pg/mL (<58.9)
[2022-04-17 16:31] LABS: Magnesium 1.3 mg/dL (1.8-2.4)
[2022-04-17 16:41] LABS: Urine RBC >50 /HPF (None Seen); Urine WBC Clump Many /HPF (None Seen)
--- NOTE | 2022-04-17 17:16 | RAD REPORT ---
EXAM DESCRIPTION: RAD - Chest Single View - 04/17/2022 4:59 pm CLINICAL HISTORY: COUGH COMPARISON: Chest Single View dated 04/03/2022; Chest Single View dated 03/02/2022; Chest Single View dated 01/25/2022; Chest Single View dated 01/24/2022 FINDINGS: Lines: None. Lungs: Increased interstitial thickening bilaterally. Pleural: No significant pleural effusions or pneumothorax. Cardiac: Similar size and configuration. Mediastinum: Within normal limits. Bones: No acute fractures. Other: None IMPRESSION: Increased interstitial edema compared 04/03/2022.
[2022-04-17] MEDS ORDERED: NA CHLORIDE 0.9% 1,000 ML ONE ×2 (18:30→18:43)
[2022-04-17] MEDS ORDERED: INSULIN -REGULAR HUMAN 50 UNIT/0.5 ML ML ONE (18:30)
[2022-04-17] MEDS ORDERED: FAMOTIDINE 20 MG/2 ML VIAL IV ONE (18:43)
[2022-04-17] MEDS ORDERED: Magnesium Sulfate 2gm IVPB 2 G/50 ML BAG IV ONE (18:44)
--- NOTE | 2022-04-17 18:45 | ER ---
Nurse's Notes [facility] Name: Thom Wright Age: 61 yrs Sex: Male : 1960 Arrival Date: 04/17/2022 Time: 15:26 Bed 7 Private MD: Diagnosis: Fever, unspecified;Weakness;UTI/ Urinary tract infection, site not specified;Severe sepsis without septic shock;Type 2 diabetes mellitus with hyperglycemia;Other hydronephrosis-MILD RIGHT Presentation: 04/17 15:35 Chief complaint: Patient states: HTN, fever, chills. Coronavirus screen: Vaccine mb8 status: Patient reports receiving the 2nd dose of the covid vaccine. Ebola Screen: Patient negative for fever greater than or equal to 101.5 degrees Fahrenheit, and additional compatible Ebola Virus Disease symptoms Patient denies exposure to infectious person. Patient denies travel to an Ebola-affected area in the 21 days before illness onset. Initial Sepsis Screen: Does the patient meet any 2 criteria? RR > 20 per min. HR > 90 bpm. Does the patient have a suspected source of infection? Yes: Dysuria/Frequency/Urgency/UTI. Risk Assessment: Do you want to hurt yourself or someone else? Patient reports no desire to harm self or others. Onset of symptoms was April 17, 2022. 15:35 Method Of Arrival: EMS mb8 15:35 Acuity: SONIA 2 mb8 Historical: - Allergies: 15:36 NKDA; mb8 - PMHx: 15:36 diabetes mellitus; Hypertensive disorder; Pancreatitis; peripheral vascular disease; mb8 stroke ( deficit left side paralysis); - PSHx: 15:36 Carotid endarterectomy; Femoral bypass; mb8 - Social history:: Smoking status: Patient reports the use of cigarette tobacco products. Screenin:38 Abuse screen: Denies threats or abuse. Denies injuries from another. Nutritional mb8 screening: On. Tuberculosis screening: No symptoms or risk factors identified. Fall Risk No fall in past 12 months (0 pts). Secondary diagnosis (15 points) No IV (0 pts). Ambulatory Aid- None/Bed Rest/Nurse Assist (0 pts). Gait- Weak (10 pts.). Mental Status- Oriented to own ability (0 pts). Total Green Fall Scale indicates High Risk Score (45 or more points). Fall prevention measures have been instituted. Side Rails Up X 2 Placed Close to Nursing Station Frequent Obs/Assessments Occuring As available patient and family educated on Fall Prevention Program and Strategies. Assessment: 15:37 General: Appears uncomfortable, Behavior is calm, cooperative, appropriate for age. mb8 Cardiovascular: Rhythm is sinus tachycardia Chest pain is denied. Respiratory: Airway is patent Respiratory effort is even, unlabored, Respiratory pattern is regular, symmetrical, Breath sounds with rales bilaterally. Denies shortness of breath. 19:15 Reassessment: Patient appears in no apparent distress at this time. Patient and/or jb4 family updated on plan of care and expected duration. Pain level reassessed. Patient is alert, oriented x 3, equal unlabored respirations, skin warm/dry/pink. Family is at the bedside. 20:20 Reassessment: Dr. Johnson notified of pending Semglee order. Provider decided to cancel jb4 administration. Vital Signs: 15:33 Pulse Ox 87% on R/A; mb8 15:35 BP 168 / 71; Pulse 117; Resp 33; Temp 101.1; Pulse Ox 94% ; mb8 16:19 BP 177 / 97; Pulse 111; Resp 24; Pulse Ox 98% on 2 lpm NC; mb8 16:24 Weight 90.72 kg; mb8 16:47 BP 169 / 73; Pulse 107; Resp 26; Temp 101.5(O); Pulse Ox 96% on 2 lpm NC; mb8 17:41 BP 162 / 76; Pulse 104; Resp 29; Temp 100.5(O); Pulse Ox 96% on 2 lpm NC; mb8 18:36 BP 165 / 64; Pulse 97; Resp 26; Temp 99.5; Pulse Ox 97% on 2 lpm NC; mb8 20:00 BP 123 / 76; Pulse 90; Resp 26; Pulse Ox 94% on 2 lpm NC; jb4 Vitals: 17:41 Cardiac Rhythm Assessment Atrial fibrillation. mb8 ED Course: 15:26 Patient arrived in ED. eb 15:35 Tremayne Russell, RN is Primary Nurse. mb8 15:35 Oxygen administration via nasal cannula \T\ 2L/min. mb8 15:36 Triage completed. mb8 15:37 Arm band placed on. mb8 15:38 Patient has correct armband on for positive identification. Placed in gown. Bed in low mb8 position. Call light in reach. Side rails up X2. Client placed on continuous cardiac and pulse oximetry monitoring. NIBP monitoring applied. pvc monitor on. 15:38 No provider procedures requiring assistance completed. mb8 15:40 Inserted saline lock: 18 gauge in right forearm, using aseptic technique. Blood mb8 collected. 15:41 Andrew Trinidad MD is Attending Physician. onel 16:10 Gunderson cath inserted, using sterile technique, 16 Fr., by nh, balloon inflated, to mb8 gravity drainage, urine specimen collected. 17:00 XRAY Chest (1 view) In Process Unspecified. EDMS 18:41 Brady Johnson MD is Hospitalizing Provider. onel 19:00 CT Chest Abdomen Pelvis W/O Contrast In Process Unspecified. EDMS Administered Medications: 15:56 Drug: Tylenol 650 mg Route: PO; aa5 16:15 Drug: Zosyn (piperacillin-tazobactam) 3.375 grams Route: IVPB; Infused Over: 60 mins; mb8 Site: right forearm; 18:35 Drug: NS 0.9% 1000 ml Route: IV; Rate: 1 bolus; Site: right forearm; mb8 20:23 Follow up: Response: No adverse reaction; IV Status: Completed infusion; IV Intake: jb4 1000ml 18:48 Drug: Magnesium Sulfate 2 grams Route: IVPB; Infused Over: 2 hrs; Site: right forearm; mb8 18:48 Drug: Pepcid (famotidine) 20 mg Route: IVP; Site: right forearm; mb8 18:50 Drug: Insulin Regular Human 8 units {Co-Signature: aa5 (Jackelin Morelos RN).} Route: mb8 IVP; Site: right forearm; 20:20 Not Given (Physician Discretion): Semglee 100 unit/mL 30 units Sub-Q once jb4 20:23 Drug: NS 0.9% 1000 ml Route: IV; Rate: 125 ml/hr; Site: right antecubital; jb4 Medication: 15:38 VIS not applicable for this client. mb8 Intake: 20:23 IV: 1000ml; Total: 1000ml. jb4 Outcome: 18:44 Decision to Hospitalize by Provider. onel 21:14 Admitted to Med/surg Report called to attempted to call report. Spoke to Promise. She tw5 attempted to page Neymar. On hold for 4 min 21:19 Admitted to Med/surg Report called to Called report to neymar tw5 22:15 Patient left the ED. tw5 Signatures: Dispatcher [employer] EDAndrew Shah MD MD cha Calderon, Jackelin, RN RN aa5 Richard Troy RN RN jb4 Ramila Husain Tiffany tw5 Tremayne Russell RN RN mb8 Jackelin Morelos RN aa5 Corrections: (The following items were deleted from the chart) 20:25 20:00 BP 123 / 76; Pulse 90bpm; Resp 13bpm; Pulse Ox 94% 2 lpm Nasal Cannula; jb4 jb4
--- NOTE | 2022-04-17 18:45 | EDPHYS ---
Physician Documentation [facility] Name: Thom Wright Age: 61 yrs Sex: Male : 1960 Arrival Date: 04/17/2022 Time: 15:26 Bed 7 Private MD: ED Physician Andrew Trinidad HPI: 04/17 18:30 This 61 yrs old Male presents to ER via EMS with complaints of FEVER AND onel WEAKNESS. 18:30 FEVER , WEAKNESS, HIGH GLUCOSE. onel Historical: - Allergies: 15:36 NKDA; mb8 - PMHx: 15:36 diabetes mellitus; Hypertensive disorder; Pancreatitis; peripheral vascular disease; mb8 stroke ( deficit left side paralysis); - PSHx: 15:36 Carotid endarterectomy; Femoral bypass; mb8 - Social history:: Smoking status: Patient reports the use of cigarette tobacco products. ROS: 18:33 Eyes: Negative for injury, pain, redness, and discharge, ENT: Negative for injury, onel pain, and discharge, Neck: Negative for injury, pain, and swelling, Respiratory: Negative for shortness of breath, cough, wheezing, and pleuritic chest pain, Abdomen/GI: Negative for abdominal pain, nausea, vomiting, diarrhea, and constipation, Back: Negative for injury and pain, : Negative for injury, bleeding, discharge, and swelling, MS/Extremity: Negative for injury and deformity, Skin: Negative for injury, rash, and discoloration, Psych: Negative for depression, anxiety, suicide ideation, homicidal ideation, and hallucinations, Allergy/Immunology: Negative for hives, rash, and allergies, Endocrine: Negative for neck swelling, polydipsia, polyuria, polyphagia, and marked weight changes, Hematologic/Lymphatic: Negative for swollen nodes, abnormal bleeding, and unusual bruising. 18:33 Constitutional: Positive for body aches, chills, fatigue, fever, malaise, poor PO intake. 18:33 Cardiovascular: Positive for palpitations. 18:33 Respiratory: Positive for cough, with no reported sputum. 18:33 Abdomen/GI: Negative for abdominal pain. 18:33 Neuro: Positive for dizziness, near syncope, weakness. Exam: 18:33 Head/Face: Normocephalic, atraumatic. Eyes: Pupils equal round and reactive to light, onel extra-ocular motions intact. Lids and lashes normal. Conjunctiva and sclera are non-icteric and not injected. Cornea within normal limits. Periorbital areas with no swelling, redness, or edema. ENT: Nares patent. No nasal discharge, no septal abnormalities noted. Tympanic membranes are normal and external auditory canals are clear. Oropharynx with no redness, swelling, or masses, exudates, or evidence of obstruction, uvula midline. Mucous membranes moist. Neck: Trachea midline, no thyromegaly or masses palpated, and no cervical lymphadenopathy. Supple, full range of motion without nuchal rigidity, or vertebral point tenderness. No Meningismus. Chest/axilla: Normal chest wall appearance and motion. Nontender with no deformity. No lesions are appreciated. Cardiovascular: Regular rate and rhythm with a normal S1 and S2. No gallops, murmurs, or rubs. Normal PMI, no JVD. No pulse deficits. Respiratory: Lungs have equal breath sounds bilaterally, clear to auscultation and percussion. No rales, rhonchi or wheezes noted. No increased work of breathing, no retractions or nasal flaring. Abdomen/GI: Soft, non-tender, with normal bowel sounds. No distension or tympany. No guarding or rebound. No evidence of tenderness throughout. Back: No spinal tenderness. No costovertebral tenderness. Full range of motion. Male : Normal genitalia with no discharge or lesions. Skin: Warm, dry with normal turgor. Normal color with no rashes, no lesions, and no evidence of cellulitis. Neuro: Awake and alert, GCS 15, oriented to person, place, time, and situation. Cranial nerves II-XII grossly intact. Motor strength 5/5 in all extremities. Sensory grossly intact. Cerebellar exam normal. Normal gait. Psych: Awake, alert, with orientation to person, place and time. Behavior, mood, and affect are within normal limits. 18:33 Musculoskeletal/extremity: ROM: no acute changes, Circulation is intact in all extremities. Sensation intact. Compartment Syndrome exam of affected extremity: is normal. 18:35 ECG was reviewed by the Attending Physician. onel Vital Signs: 15:33 Pulse Ox 87% on R/A; mb8 15:35 BP 168 / 71; Pulse 117; Resp 33; Temp 101.1; Pulse Ox 94% ; mb8 16:19 BP 177 / 97; Pulse 111; Resp 24; Pulse Ox 98% on 2 lpm NC; mb8 16:24 Weight 90.72 kg; mb8 16:47 BP 169 / 73; Pulse 107; Resp 26; Temp 101.5(O); Pulse Ox 96% on 2 lpm NC; mb8 17:41 BP 162 / 76; Pulse 104; Resp 29; Temp 100.5(O); Pulse Ox 96% on 2 lpm NC; mb8 18:36 BP 165 / 64; Pulse 97; Resp 26; Temp 99.5; Pulse Ox 97% on 2 lpm NC; mb8 20:00 BP 123 / 76; Pulse 90; Resp 26; Pulse Ox 94% on 2 lpm NC; jb4 MDM: 15:41 Patient medically screened. onel 18:36 Differential diagnosis: viral Infection, bacterial infection, URI, bronchitis, onel pneumonia UTI. Differential Diagnosis altered mental status, sepsis, flu. Differential Diagnosis: idiopathic syncope, sepsis, transient ischemic attack, vasovagal episode. Data reviewed: vital signs, nurses notes, EMS record, lab test result(s), EKG, radiologic studies, CT scan, plain films. Data interpreted: campus monitor: rate is 97 beats/min, rhythm is regular, Pulse oximetry: on room air is 109 %. Test interpretation: by ED physician or midlevel provider: ECG, plain radiologic studies. Counseling: I had a detailed discussion with the patient and/or guardian regarding: the historical points, exam findings, and any diagnostic results supporting the discharge/admit diagnosis, lab results, radiology results, the need for further work-up and treatment in the hospital. 04/17 15:41 Order name: Blood Culture Adult (2) [facility] 04/17 15:41 Order name: CBC with Diff; Complete Time: 18:20 [facility] 04/17 15:41 Order name: Lactate; Complete Time: 18:20 [facility] 04/17 15:41 Order name: Protime (+inr); Complete Time: 18:20 8 04/17 15:41 Order name: Ptt, Activated; Complete Time: 18:20 8 04/17 15:47 Order name: Lipase; Complete Time: 18:20 [facility] 04/17 15:47 Order name: Magnesium; Complete Time: 18:20 [facility] 04/17 15:47 Order name: NT PRO-BNP; Complete Time: 18:20 onel 04/17 15:47 Order name: Troponin HS; Complete Time: 18:20 onel 04/17 15:50 Order name: Flu; Complete Time: 18:20 [facility] 04/17 15:50 Order name: SARS-COV-2 RT PCR (Document "Date of Onset" if Symptomatic); Complete Time: onel 18:20 04/17 16:05 Order name: Comprehensive Metabolic Panel; Complete Time: 18:20 EDMS 04/17 16:14 Order name: Urine Culture [facility] 04/17 16:14 Order name: Urine Microscopic Only; Complete Time: 18:20 mb8 04/17 16:18 Order name: Urine Dipstick-Ancillary; Complete Time: 18:20 EDMS 04/17 18:47 Order name: Glucose, Ancillary Testing; Complete Time: 19:38 EDMS 04/17 19:41 Order name: CBC with Automated Diff EDMS 04/17 19:41 Order name: CBC with Automated Diff EDMS 04/17 19:41 Order name: CBC with Automated Diff EDMS 04/17 19:41 Order name: CBC with Automated Diff EDMS 04/17 19:41 Order name: Comprehensive Metabolic Panel EDMS 04/17 19:41 Order name: Comprehensive Metabolic Panel EDMS 04/17 19:41 Order name: Comprehensive Metabolic Panel EDMS 04/17 19:41 Order name: Comprehensive Metabolic Panel EDMS 04/17 19:41 Order name: Magnesium EDMS 04/17 19:41 Order name: Magnesium EDMS 04/17 19:41 Order name: Phosphorus EDMS 04/17 19:41 Order name: Phosphorus EDMS 04/17 15:41 Order name: Cardiac monitoring; Complete Time: 15:52 mb8 04/17 15:41 Order name: IV Saline Lock - Large Bore; Complete Time: 15:52 mb8 04/17 15:41 Order name: Labs collected and sent; Complete Time: 15:52 mb8 04/17 15:41 Order name: O2 Per Protocol; Complete Time: 15:52 mb8 04/17 15:41 Order name: O2 Sat Monitoring; Complete Time: 15:52 mb8 04/17 15:47 Order name: XRAY Chest (1 view); Complete Time: 18:20 [facility] 04/17 15:47 Order name: EKG; Complete Time: 15:48 [facility] 04/17 15:47 Order name: EKG - Nurse/Tech; Complete Time: 16:59 [facility] 04/17 15:47 Order name: IV Saline Lock; Complete Time: 15:51 [facility] 04/17 15:50 Order name: Gunderson; Complete Time: 16:18 [facility] 04/17 16:14 Order name: Urine Dipstick-Ancillary (obtain specimen); Complete Time: 16:59 [facility] 04/17 17:40 Order name: Diet Heart Healthy; Complete Time: 17:41 [facility] 04/17 18:22 Order name: CT Chest Abdomen Pelvis W/O Contrast; Complete Time: 19:38 [facility] 04/17 20:33 Order name: Lactate Sepsis 2 HR Follow-up EDMS EC:35 Rate is 109 beats/min. Rhythm is regular. QRS [place] is Normal. IA interval is normal. [facility] QRS interval is normal. QT interval is normal. No Q waves. T waves are Normal. No ST changes noted. Clinical impression: Sinus tachycardia and No evidence of ischemia. Interpreted by me. Reviewed by me. Administered Medications: 15:56 Drug: Tylenol 650 mg Route: PO; aa5 16:15 Drug: Zosyn (piperacillin-tazobactam) 3.375 grams Route: IVPB; Infused Over: 60 mins; mb8 Site: right forearm; 18:35 Drug: NS 0.9% 1000 ml Route: IV; Rate: 1 bolus; Site: right forearm; mb8 20:23 Follow up: Response: No adverse reaction; IV Status: Completed infusion; IV Intake: jb4 1000ml 18:48 Drug: Magnesium Sulfate 2 grams Route: IVPB; Infused Over: 2 hrs; Site: right forearm; mb8 18:48 Drug: Pepcid (famotidine) 20 mg Route: IVP; Site: right forearm; mb8 18:50 Drug: Insulin Regular Human 8 units {Co-Signature: aa5 (Jackelin Morelos RN).} Route: mb8 IVP; Site: right forearm; 20:20 Not Given (Physician Discretion): Semglee 100 unit/mL 30 units Sub-Q once jb4 20:23 Drug: NS 0.9% 1000 ml Route: IV; Rate: 125 ml/hr; Site: right antecubital; jb4 Disposition Summary: 04/17/22 18:44 Hospitalization Ordered Hospitalization Status: Inpatient Admission [facility] Provider: Brady Johnson cha Location: Telemetry/MedSurg (Inpatient) onel Condition: Fair onel Problem: new onel Symptoms: have improved onel Bed/Room Type: Standard onel Room Assignment: 425(04/17/22 21:04) eb1 Diagnosis - Fever, unspecified onel - Weakness onel - UTI/ Urinary tract infection, site not specified onel - Severe sepsis without septic shock onel - Type 2 diabetes mellitus with hyperglycemia onel - Other hydronephrosis - MILD RIGHT onel Forms: - Medication Reconciliation Form onel - SBAR form onel Signatures: Dispatcher [employer] EDMS Andrew Trinidad MD MD cha Calderon, Audri, RN RN aa5 Richard Troy RN RN jb4 Promise Francois RN RN eb1 Tremayne Russell RN RN mb8 Jackelin Morelos RN aa5 Corrections: (The following items were deleted from the chart) 16:05 15:41 COMPREHENSIVE METABOLIC PANEL+C.LAB.BRZ ordered. EDMS EDMS 16:05 15:48 BASIC METABOLIC PANEL+C.LAB.BRZ ordered. EDMS EDMS 21:04 18:44 onel eb1
--- NOTE | 2022-04-17 19:25 | RAD REPORT ---
EXAM DESCRIPTION: CTChest Abd Pelvis Wo Con - 04/17/2022 7:00 pm CLINICAL HISTORY: PNA/PYELO COMPARISON: No comparisonsChest For Pe Angio dated 2Chest For Pe Angio dated 03/02/2022 TECHNIQUE: CT of the chest, abdomen, and pelvis was performed. All CT scans are performed using dose optimization technique as appropriate and may include automated exposure control or mA/KV adjustment according to patient size. FINDINGS: Thorax: Chest Wall: No abnormal mass Lungs: Interlobular septal thickening. Pleura: Small pleural effusions Negrita/Mediastinum: No lymphadenopathy. Aorta/Pulmonary Arteries: Unremarkable Heart: Normal size. Coronary artery calcifications. Aortic valve calcifications . Abdomen/Pelvis: Liver: No acute abnormality or suspicious lesions. Biliary: No biliary ductal dilatation. Stomach: No significant focal abnormality. Duodenum: No significant focal abnormality. Pancreas: No significant abnormality. Spleen: No significant abnormality. Adrenal: No suspicious lesions. Kidney/ureter: Mild right-sided hydroureteronephrosis. Bilateral renal vascular calcifications. No re nal calculi. Too small to characterize and/or benign appearing renal lesions are noted. Retroperitoneum: No retroperitoneal adenopathy. Vascular: No aneurysm. Atherosclerosis. Bowel: No significant focal abnormality. Moderate stool in the colon. Peritoneum: No ascites or free air. Bladder: Gunderson catheter in bladder. Reproductive: No adnexal masses. Bones: No acute fracture. Other: n/a IMPRESSION: 1. Mild interstitial edema. 2. Right-sided hydronephrosis. This could be secondary to bladder outlet obstruction. The bladder is decompressed via Gunderson catheter. No obstructing stone or mass. 3. Moderate colonic stool burden, particularly in the rectum.
--- NOTE | 2022-04-17 19:40 | P.HP ---
Certification for Inpatient Patient admitted to: Inpatient With expected LOS: >2 Midnights Patient will require the following post-hospital care: None Practitioner: I am a practitioner with admitting privileges, knowledge of patient current condition, hospital course, and medical plan of care. Services: Services provided to patient in accordance with Admission requirements found in Title 42 Section 412.3 of the Code of Federal Regulations Patient History Date of Service: 04/17/22 Reason for admission: Severe Sepsis History of Present Illness: Mr. Thom Wright is a 61 year old male with a past medical history significant for peripheral artery disease s/p left femoral artery bypass, hypertension, dyslipidemia, recent CVA with residual leftsided deficits, type 2 diabetes mellitus, and tobacco use disorder who presents to the [facility] Emergency Department for fevers, chills, and hematuria. He reports that, earlier this afternoon around 13:00 while attempting to use the restroom, he developed a subjective fever and chills. He states that he also noted that his urine was grossly bloody. He denies any obvious inciting or alleviating factors. He denies any dysuria or pyuria, but has experienced some urinary frequency. He denies any obvious inciting or alleviating factors. He has not tried taking any medications for his symptoms prior to arrival. On review of systems, he denies any headaches, dizziness, syncope, chest pain, palpitations, shortness of breath, wheezing, cough, abdominal pain, nausea/vomiting, diarrhea, constipation, hematochezia, melena, myalgia, or any other symptoms. He presented to the Emergency Department for further evaluation. Upon presentation, his vital signs were notable for a temperature of 101.1 F, a heart rate of 117 bpm, and a respiratory rate of 33 breaths/min. His laboratory studies were notable for a hemoglobin of 10.2 (was 11.1 on 04/03/2022), a blood glucose of 329, a magnesium of 1.3, a NT-Pro BNP of 2946, and an initial lactic acid of 2.3. Urinalysis revealed 3+ glucose, 3+ blood, 1+ leukocyte esterase, >50 RBCs, >50 WBCs, and 3+ proteinuria. Blood cultures x 2 were obtained. EKG revealed sinus tachycardia without STEMI criteria. Chest x-ray revealed, "increased interstitial edema compared 04/03/2022." CT chest/abdomen/pelvis revealed, "1. Mild interstitial edema. 2. Right-sided hydronephrosis. This could be secondary to bladder outlet obstruction. The bladder is decompressed via Gunderson catheter. No obstructing stone or mass. 3. Moderate colonic stool burden, particularly in the rectum." In the Emergency Department, he was given acetaminophen, piperacillin-tazobactam, and 1 L Normal Saline. He was admitted to the General Internal Medicine service for further evaluation. Allergies No Known Allergies Allergy (Verified 03/02/22 21:58) Home medications list reviewed: No (He does not know home meds. He will obtain list from sister.) Home Medications: RX: Amlodipine [Norvasc*] 5 mg PO DAILY 01/22/22 RX: Atorvastatin Calcium 40 mg PO DAILY 01/22/22 RX: Dapagliflozin/Metformin HCl [Xigduo Xr 10 mg-1,000 mg Tab] 1 each PO DAILY 01/22/22 RX: Gabapentin 200 mg PO BID 01/22/22 RX: Glimepiride [Amaryl] 4 mg PO DAILY 01/22/22 RX: Levothyroxine Sodium [Levothyroxine] 50 mcg PO DAILY 01/22/22 RX: Losartan Potassium 100 mg PO DAILY 01/22/22 RX: Tramadol HCl [Ultram] 50 mg PO BID 01/22/22 RX: cilostazoL [Cilostazol] 100 mg PO BID 01/22/22 Aspirin [Aspirin EC 81 MG] 162 mg PO DAILY #60 03/09/22 RX: Midodrine HCl [Proamatine*] 5 mg PO TID #90 tab 03/09/22 RX: Clopidogrel Bisulfate [Plavix*] 75 mg PO BEDTIME #30 tab 03/15/22 RX: Pantoprazole [Protonix Tab*] 40 mg PO BIDAC #60 tab 03/15/22 - Past Medical/Surgical History Diabetic: Yes -: Diabetes mellitus type 2not insulin-dependent -: Hypertension -: Unknown additional history -: carotid surgery -: CVA x3 Psychosocial/ Personal History: Patient lives at home with his , family - Social History Smoking Status: Current every day smoker Alcohol use: No CD- Drugs: No Caffeine use: Yes Review of Systems General: Fever, Chills Eyes: Unremarkable ENT: Unremarkable Respiratory: Unremarkable Cardiovascular: Unremarkable Gastrointestinal: Unremarkable Genitourinary: Frequency, Hematuria Musculoskeletal: Unremarkable Integumentary: Unremarkable Neurological: Unremarkable Lymphatics: Unremarkable Physical Examination - Vital Signs Temperature: 99.5 F Blood Pressure: 165/64 Pulse: 97 Respirations: 26 Pulse Ox (%): 97 (2 L) - Studies Laboratory Data (last 24 hrs) 04/17/22 15:53: Sodium 130 L, Potassium 3.6, BUN 18, Creatinine 1.12, Glucose 329 H, Magnesium 1.3 L*, Total Bilirubin 0.5, AST 20, ALT 24, Alkaline Phosphatase 122 H, Lipase 276 04/17/22 15:53: PT 13.0 H, INR 1.18, APTT 30.8 04/17/22 15:53: WBC 9.40, Hgb 10.2 L, Hct 30.4 L, Plt Count 195 04/17/22 15:41: Sodium Cancelled, Potassium Cancelled, BUN Cancelled, Creatinine Cancelled, Glucose Cancelled, Total Bilirubin Cancelled, AST Cancelled, ALT Cancelled, Alkaline Phosphatase Cancelled Microbiology Data (last 24 hrs): 04/17/22 15:55 Nasopharnyx Influenza Type A Antigen Screen - Final 04/17/22 15:55 Nasopharnyx Influenza Type B Antigen Screen - Final Assessment and Plan - Plan - Physical Exam General: Alert, In no apparent distress, Oriented x3 HEENT: Atraumatic, PERRLA, Mucous membr. moist/pink, EOMI, Sclerae nonicteric Neck: Supple, JVD not distended Respiratory: Clear to auscultation bilaterally, Normal air movement Cardiovascular: No edema, Regular rate/rhythm, Normal S1 S2, No gallops, No rubs, No murmurs Gastrointestinal: Normal bowel sounds, Soft and benign, Non-distended, No tenderness, No rebound, No guarding Musculoskeletal: No clubbing Integumentary: No rashes Neurological: Normal speech, Sensation intact, Cranial nerves 3-12 intact, Normal affect, Abnormal strength (3/5 strength in LUE/LLE. 4+/5 strength in RUE/RLE. ) # Severe Sepsis likely secondary to Urinary Tract Infection with Hematuria He meets sepsis criteria based on temperature > 100.9 F, HR > 90 bpm, and RR > 20 breaths/min, and the suspected source is a UTI. Severe sepsis is suspected due to concern for tissue hypoperfusion/organ dysfunction based on lactic acid > 2 mmol/L. - Sepsis order set was initiated - Initial Lactate was 2.3, trend - Blood cultures drawn before antibiotics were given - Broad spectrum antibiotics started: Piperacillin-Tazobactam -> switch to Ceftriaxone - In regards to fluids: - 30 mL/kg of IV fluids was not administered given SBP > 90, MAP > 65, lactic acid < 4 - Urinalysis = 3+ glucose, 3+ blood, 1+ leukocyte esterase, >50 RBCs, >50 WBCs, and 3+ proteinuria # Gross Hematuria with Right-Sided Hydronephrosis and possible Bladder Outlet Obstruction # Recent Admission for Acute Blood Loss Anemia suspect due to Acute Upper and Lower Gastrointestinal Bleed 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 Jay - recommendations appreciated - Recommended placement of 18G or 20G Gunderson catheter to ensure passage of blood clotds - Serial H&H - Presenting Hgb 10.2 (was 11.1 on 04/03/2022) - Transfuse for Hgb < 7.0 - 2 large bore IVs # Hyperglycemia in Type II Diabetes Mellitus complicated by Diabetic Neuropathy - Correction scale insulin - Resume home medications once verified # Hypomagnesemia - Mg = 1.3 - Replace as needed # Recent Non-ST Segment Elevation Myocardial Infarction # Peripheral Artery Disease s/p Left Femoral Artery Bypass # Hypertension # Dyslipidemia - Continue home medications once verified (he is reaching out to his sister to obtain up-to-date lists; he mentions there have been several changes in his medications since discharge from here) # Deconditioning and Left-Sided Weakness # Reported History of CVA with Residual Left-Sided Deficits # Subacute Right Cerebral Hemisphere Infarcts He reports that this unilateral weakness is chronic from a prior CVA. - Consult PT # Tobacco Use Disorder - Tobacco cessation counseling provided Brady Johnson M.D. Discharge Plan: Home Plan to discharge in: Greater than 2 days - Advance Directives Does patient have a Living Will: No Does patient have a Durable POA for Healthcare: No - Code Status/Comfort Care Code Status Assessed: Yes Code Status: Full Code
[2022-04-17] MEDS ORDERED: INSULIN GLARGINE 100 UNIT/ML SQ ONE (20:04)
[2022-04-17] MEDS ORDERED: D50W 25 GM/50 ML SYRINGE IV PRN (20:46)
[2022-04-17] MEDS ORDERED: GLUCAGON 1 MG/VIAL IM PRN (20:46)
[2022-04-17] MEDS ORDERED: D10W 125 ML IV PRN (20:48)
[2022-04-17] MEDS ORDERED: MAGNESIUM 50% 3 GM in NA CHLORIDE 0.9% 100 ML IV ONE (20:51)
[2022-04-18 00:14] VITALS: BMI 32.0
[2022-04-18 00:35] LABS: Hematocrit 28.1 % (39.6-49.0)
[2022-04-18 06:18] LABS: Absolute Lymphocytes (CBC) 0.6 K/uL (0.7-4.9); Hematocrit 28.4 % (39.6-49.0); Lymphocytes % 6.2 % (15.3-44.8); MCV 89.6 fL (80-100); MPV 8.3 fL (7.6-11.3); RBC Red Blood Cell Count 3.17 M/uL (4.33-5.43)
[2022-04-18 06:40] LABS: Bilirubin Total 0.6 mg/dL (0.2-1.0); Magnesium 1.8 mg/dL (1.8-2.4); Phosphorus 2.4 mg/dL (2.5-4.9); Potassium 3.4 mmol/L (3.5-5.1); Protein, Total 6.3 g/dL (6.4-8.2)
[2022-04-18] MEDS: INSULIN -REGULAR HUMAN 50 UNIT/0.5 ML ML SQ SCH ×5 (07:30→21:28)
[2022-04-18] MEDS: CEFTRIAXONE 1,000 MG in NA CHLORIDE 0.9% 50 ML IVPB SCH (08:53)
[2022-04-18] MEDS ORDERED: PNEUMOCOCCAL VACCINE 0.5 ML IMVAC ONE (12:00)
[2022-04-18] MEDS: VANCOMYCIN 1.5 GM in NA CHLORIDE 0.9% 500 ML IVPB SCH (12:19)
[2022-04-18 12:49] LABS: Hematocrit 29.8 % (39.6-49.0)
--- NOTE | 2022-04-18 12:49 | CON ---
History Of Present Illness: Mr. Raudel Wright is 61-year-old male, I was consulted for bacteremia. Patient has significant past medical history of peripheral arterial disease, status post left femora l artery bypass, hypertension, dyslipidemia, recent stroke, residual left-sided deficit, type 2 diabe rosario mellitus, tobacco use disorder, came to the [facility] with fever, chills and hematuria. Patient continues to feel weak and his blood cultures grew on 04/17 growing gram-positive cocci in pairs and chains and his urine culture is pending. Patient is currently being treated with Rocephin and vancomycin. Past Medical History: As per HPI. Social History: Tobacco positive for 40 years pack per day. Alcohol positive. Medications: Vancomycin and Rocephin. See MAR for other medications. Allergies: NO KNOWN DRUG ALLERGIES. Review of Systems: A 10-point review was performed. Physical Examination: General: This is a 61-year-old male, lying in bed, not in any acute cardiopulmonary distress. Gunderson with blood-tinged urine, also present in a Gunderson bag. Vital Signs: Temperature 97, pulse 83, respirations 18, blood pressure 166/76. HEENT: Unremarkable. Neck: Supple. Lungs: Basal crackles. Heart: S1, S2. Regular. Abdomen: Soft, nontender. Bowel sounds present. Extremities: No edema. Neurological: Left-sided weakness noted. Laboratory Data: WBC 9.3, hemoglobin 9.4, platelets 188. Chemistry shows sodium 131, potassium 3.4, chloride 101, bicarb 25, BUN 15, creatinine 0.8, albumin is 2. Urinalysis shows rbc more than 50, w bc more than 50. Micro data, gram-positive cocci in pairs and chains, in blood cultures on 04/17. C T abdomen done yesterday shows mild interstitial edema, right-sided hydronephrosis. This could be se condary to bladder outlet obstruction. Moderate colonic stool burden, particularly in rectum area no maria del carmen. Chest x-ray done yesterday shows increased interstitial edema. Assessment And Plan: Bacteremia secondary to gram-positive cocci in pairs and chains, hematuria, ane vidya of chronic disease, moderate protein-calorie malnourishment. We will continue current antibiotic regimen, vancomycin and Rocephin, pending culture results. Consider urology evaluation. We will fo llow patient as needed. Thank you, Dr. Mace, for consult. NF/MODL Voice ID: [id number] Report ID: [id number]
--- NOTE | 2022-04-18 16:09 | EKG ---
Test Date: 2022-04-17 Test Time: 16:50:09 Brothel Keeper: KV MEASUREMENT RESULTS: Intervals: Rate: 109 IN: 132 QRSD: 88 QT: 346 QTc: 465 [place]: P: 60 IN: 132 QRS: 9 T: 91 INTERPRETIVE STATEMENTS: Sinus tachycardia with premature atrial complexes with aberrant conduction Inferior infarct, age undetermined Abnormal ECG Compared to ECG 04/03/2022 13:36:58 Aberrant conduction of supraventricular beat(s) now present Sinus rhythm no longer present T-wave abnormality no longer present Possible ischemia no longer present Myocardial infarct finding still present Electronically Signed On 04-18-22 16:07:37 CDT by Jeffrey Suazo
[2022-04-18] MEDS ORDERED: ACETAMINOPHEN 325 MG TABLET PO PRN (16:17)
--- NOTE | 2022-04-18 16:24 | P.PN ---
Date of Service: 04/18/22 Subjective Patient's cultures are pending. Currently growing out Gram-positive cocci in clusters in all 4 bottles. Urine culture is also positive for Gram-positive cocci. Continue with IV antibiotic therapy. Infectious Disease consultation has been obtained. Continue with physical therapy. Continue with anti-platelet therapy as well. Physical Examination - Vital Signs Reviewed - Physical Exam General: Alert, In no apparent distress, Oriented x3 HEENT: Within normal limits Respiratory: Clear to auscultation bilaterally, Normal air movement Cardiovascular: No edema, Regular rate/rhythm, Normal S1 S2, No gallops, No rubs, No murmurs Gastrointestinal: Normal bowel sounds, Soft and benign, Non-distended, No tenderness, No rebound, No guarding Neurological: Diminished strength; otherwise no focal deficits Assessment and Plan -Assessment 1. Severe Sepsis likely secondary to Urinary Tract Infection with Hematuria 2. Gross Hematuria with Right-Sided Hydronephrosis and possible Bladder Outlet Obstruction 3. 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 Hyperglycemia in Type II Diabetes Mellitus complicated by Diabetic Neuropathy 5. Hypomagnesemia 6. Recent Non-ST Segment Elevation Myocardial Infarction 7. Peripheral Artery Disease s/p Left Femoral Artery Bypass 8. Hypertension 9. Dyslipidemia 10. Deconditioning and Left-Sided Weakness 11. Reported History of CVA with Residual Left-Sided Deficits 12. Subacute Right Cerebral Hemisphere Infarcts 13. Tobacco Use Disorder 14. CHF, systolic dysfunction (EF=40%) - Plan 1. Continue with IV antibiotics 2. Continue with Gunderson catheter 3. Monitor H&H 4. Strict blood sugar control 5. Continue with cardiac meds 6. Physical therapy 7. Antiplatelet and statin therapy 8. Tobacco cessation
[2022-04-18] MEDS: HYDROCODONE/APAP 5/325 MG TAB PO PRN (16:49)
[2022-04-18 18:04] LABS: Hematocrit 29.6 % (39.6-49.0)
[2022-04-19] MEDS: VANCOMYCIN 1.5 GM in NA CHLORIDE 0.9% 500 ML IVPB SCH ×2 (00:02→12:56)
[2022-04-19 00:37] LABS: Hematocrit 26.9 % (39.6-49.0)
[2022-04-19] MEDS ORDERED: ALPRAZOLAM 0.5 MG TABLET PO ONE (01:10)
[2022-04-19 05:32] LABS: Absolute Lymphocytes (CBC) 0.9 K/uL (0.7-4.9); Hematocrit 26.2 % (39.6-49.0); MCV 88.7 fL (80-100); MPV 8.4 fL (7.6-11.3); RBC Red Blood Cell Count 2.95 M/uL (4.33-5.43)
[2022-04-19 05:53] LABS: Bilirubin Total 0.5 mg/dL (0.2-1.0); Potassium 3.5 mmol/L (3.5-5.1); Protein, Total 6.4 g/dL (6.4-8.2)
[2022-04-19] MEDS: INSULIN -REGULAR HUMAN 50 UNIT/0.5 ML ML SQ SCH ×4 (08:24→20:15)
[2022-04-19] MEDS: CEFTRIAXONE 1,000 MG in NA CHLORIDE 0.9% 50 ML IVPB SCH (08:25)
[2022-04-19] MEDS: MORPHINE 2 MG/ML SYR IV PRN (20:14)
[2022-04-20] MEDS: VANCOMYCIN 1.5 GM in NA CHLORIDE 0.9% 500 ML IVPB SCH ×2 (00:06→12:17)
--- NOTE | 2022-04-20 01:07 | PN ---
Subjective: The patient lying in bed. No new acute event. Chart reviewed. Objective: Vital Signs: Temperature 97, pulse 89, respirations 18, blood pressure 174/81. Lungs: Basal crackles. Heart: S1, S2. Regular. Abdomen: Soft, nontender. Bowel sounds present. Extremities: No edema. Laboratory Data: WBC 7.7, hemoglobin 8.8, platelets are 199. BUN is 19, creatinine 0.9, glucose is 241. Albumin level is 2. Urine culture done on 04/17, growing 4+ alpha strep cocci. Blood culture done on 04/17 growing gram-positive cocci in pairs and chains. Assessment And Plan: Bacteremia secondary to gram-positive cocci in pairs and chains, most likely St aph. Hematuria, has improved. Anemia of chronic disease. Moderate protein-calorie malnourishment. Urinary tract infection. Continue vancomycin and Rocephin. Pending sensitivity and specificity. W e will follow the patient closely. NF/MODL Voice ID: [id number] Report ID: [id number]
[2022-04-20 06:00] LABS: Absolute Lymphocytes (CBC) 0.8 K/uL (0.7-4.9); Hematocrit 26.9 % (39.6-49.0); Lymphocytes % 15.1 % (15.3-44.8); MPV 8.3 fL (7.6-11.3); RBC Red Blood Cell Count 3.02 M/uL (4.33-5.43)
[2022-04-20 06:13] LABS: Albumin 1.9 g/dL (3.4-5.0); Bilirubin Total 0.4 mg/dL (0.2-1.0); Potassium 3.3 mmol/L (3.5-5.1); Protein, Total 6.2 g/dL (6.4-8.2)
[2022-04-20] MEDS: INSULIN -REGULAR HUMAN 50 UNIT/0.5 ML ML SQ SCH ×4 (07:30→20:32)
[2022-04-20] MEDS ORDERED: CEFTRIAXONE 1000 MG/VIAL ONE (08:20)
[2022-04-20] MEDS ORDERED: NA CHLORIDE 0.9% 50 ML ONE (08:21)
[2022-04-20] MEDS: CEFTRIAXONE 1,000 MG in NA CHLORIDE 0.9% 50 ML IVPB SCH (08:47)
[2022-04-20] MEDS: METOPROLOL TAR 50 MG TAB PO SCH (20:27)
[2022-04-20] MEDS: MORPHINE 2 MG/ML SYR IV PRN (20:32)
[2022-04-20] MEDS: ALPRAZOLAM 0.5 MG TABLET PO PRN (22:51)
[2022-04-21] MEDS: VANCOMYCIN 1.5 GM in NA CHLORIDE 0.9% 500 ML IVPB SCH ×2 (00:38→12:00)
--- NOTE | 2022-04-21 01:07 | PN ---
Subjective: The patient lying in bed. No new acute event. Chart reviewed. Objective: Vital Signs: Temperature 97, pulse 89, respirations 20, blood pressure 184/87. Lungs: Basal crackles. Heart: S1, S2 regular. Abdomen: Soft, nontender. Bowel sounds present. Extremities: No edema. Laboratory Data: WBC 5.6, hemoglobin 9.1, platelets are 223, BUN is 17, creatinine 0.7. Albumin lev el is 1.9. Blood cultures are growing Enterococcus faecalis sensitive to penicillin, vancomycin, Lev aquin, ampicillin, Cipro, and gentamicin. Urine culture growing 4+ yeast and 4+ alpha streptococci. Medications: The patient's current antibiotic include Rocephin and vancomycin. See MARS for other m edications. Assessment And Plan: Enterococcus bacteremia, sensitive to ampicillin. We will recommend to switch patient from vancomycin and Rocephin to ampicillin or Unasyn 1.5 g q.6 hours. Continue supportive ca re and monitor for signs of infection with WBC and fever trends. NF/MODL Voice ID: [id number] Report ID: [id number]
[2022-04-21] MEDS: MORPHINE 2 MG/ML SYR IV PRN (03:47)
[2022-04-21 06:46] LABS: Absolute Lymphocytes (CBC) 0.9 K/uL (0.7-4.9); Hematocrit 29.9 % (39.6-49.0); Lymphocytes % 13.9 % (15.3-44.8); MCV 89.7 fL (80-100); MPV 8.3 fL (7.6-11.3); RBC Red Blood Cell Count 3.33 M/uL (4.33-5.43)
[2022-04-21 07:05] LABS: Albumin 1.9 g/dL (3.4-5.0); Bilirubin Total 0.3 mg/dL (0.2-1.0); Magnesium 1.6 mg/dL (1.8-2.4); Potassium 3.5 mmol/L (3.5-5.1); Protein, Total 6.6 g/dL (6.4-8.2)
[2022-04-21] MEDS ORDERED: CEFTRIAXONE 1000 MG/VIAL ONE (08:49)
[2022-04-21] MEDS: INSULIN -REGULAR HUMAN 50 UNIT/0.5 ML ML SQ SCH ×5 (08:56→22:39)
[2022-04-21] MEDS: CEFTRIAXONE 1,000 MG in NA CHLORIDE 0.9% 50 ML IVPB SCH (08:56)
[2022-04-21] MEDS: METOPROLOL TAR 50 MG TAB PO SCH (09:06)
[2022-04-21] MEDS ORDERED: METHYLPREDNISOLONE 125 MG INJ IV ONE (11:24)
[2022-04-21] MEDS ORDERED: IPRATROPIUM BROM 0.5MG/2.5ML NEB ONE (11:24)
[2022-04-21] MEDS ORDERED: FUROSEMIDE 40 MG/4 ML VIAL IV ONE ×2 (11:25→19:00)
--- NOTE | 2022-04-21 12:01 | RAD REPORT ---
EXAM DESCRIPTION: RAD - Chest Single View - 04/21/2022 11:46 am CLINICAL HISTORY: pneumonia COMPARISON: CT chest April 17, portable chest April 17 TECHNIQUE: AP portable chest image was obtained 04/21/2022 11:46 am . FINDINGS: Increased interstitial opacification is present throughout both lung tellez most pronounce d in the right perihilar region. This is progressive from the prior examinations. Heart and vasculatu re are normal. No pneumothorax. No enlarging pleural effusions seen. IMPRESSION: Worsening lung parenchymal opacification since April 17 CT imaging. Findings are most pronounced in the right perihilar region.
[2022-04-21] MEDS: ALBUTEROL 2.5 MG/3 ML NEB SOL NEB SCH ×3 (14:00→19:05)
[2022-04-21] MEDS ORDERED: predniSONE 20 MG TAB PO ONE (18:27)
[2022-04-21] MEDS ORDERED: FUROSEMIDE 40 MG TABLET PO ONE (18:27)
[2022-04-21] MEDS ORDERED: levoFLOXacin 500 MG TAB PO ONE (18:30)
[2022-04-21] MEDS ORDERED: POTASSIUM 25 MEQ EFFERV TAB PO ONE (19:00)
[2022-04-21] MEDS: IPRATROPIUM BROM 0.5MG/2.5ML NEB SCH (19:05)
[2022-04-21] MEDS: ALPRAZOLAM 0.5 MG TABLET PO PRN (20:55)
[2022-04-21 23:35] LABS: Potassium 3.9 mmol/L (3.5-5.1)
[2022-04-21] MEDS ORDERED: INSULIN -REGULAR HUMAN 50 UNIT/0.5 ML ML IV ONE (23:50)
[2022-04-21 23:58] LABS: Arterial Blood Carboxyhemoglob 1.5 % (0-1.5); Blood O2 Saturation 89.5 % (92-98.5)
[2022-04-22] MEDS ORDERED: VANCOMYCIN 1.5 GM in NA CHLORIDE 0.9% 500 ML IVPB SCH ×2
[2022-04-22] MEDS ORDERED: MORPHINE 4 MG/ML SYR IV ONE (00:16)
[2022-04-22] MEDS: HYDRALAZINE HCL 20 MG/ML VIAL IV PRN ×3 (00:20→16:59)
[2022-04-22] MEDS: ALBUTEROL 2.5 MG/3 ML NEB SOL NEB SCH ×3 (01:10→14:46)
[2022-04-22] MEDS: IPRATROPIUM BROM 0.5MG/2.5ML NEB SCH ×3 (01:10→14:46)
[2022-04-22 06:08] LABS: Absolute Lymphocytes (CBC) 0.9 K/uL (0.7-4.9); Hematocrit 31.2 % (39.6-49.0); Lymphocytes % 14.3 % (15.3-44.8); MPV 7.7 fL (7.6-11.3); RBC Red Blood Cell Count 3.54 M/uL (4.33-5.43)
[2022-04-22] MEDS: METOPROLOL TAR 50 MG TAB PO SCH ×2 (06:22→17:00)
[2022-04-22 06:33] LABS: Magnesium 1.5 mg/dL (1.8-2.4); Potassium 3.2 mmol/L (3.5-5.1)
--- NOTE | 2022-04-22 08:29 | RAD REPORT ---
EXAM DESCRIPTION: RAD - Chest Single View - 04/22/2022 5:44 am CLINICAL HISTORY: pneumonia Chest pain. COMPARISON: Chest Single View dated 04/21/2022; Chest Single View dated 04/17/2022; Chest Single Vie w dated 04/03/2022; Chest Single View dated 03/02/2022 FINDINGS: Portable technique limits examination quality. Since 04/21/2022, there has been mild worsening in bilateral pulmonary opacities, particularly on the right. The heart is mildly enlarged. No displaced fractures. IMPRESSION: Mild worsening in lung aeration seen since yesterday's study.
[2022-04-22] MEDS: FUROSEMIDE 40 MG TABLET PO SCH ×2 (09:41→17:00)
[2022-04-22] MEDS: levoFLOXacin 500 MG TAB PO SCH (09:41)
[2022-04-22] MEDS: predniSONE 20 MG TAB PO SCH ×2 (09:41→22:00)
[2022-04-22] MEDS: INSULIN -REGULAR HUMAN 50 UNIT/0.5 ML ML SQ SCH ×4 (09:42→21:00)
--- NOTE | 2022-04-22 14:59 | PN ---
Subjective: Patient is lying in bed. Denies any headache, nausea, vomiting, chest pain, abdominal p ain, constipation, or diarrhea. Objective: Vital Signs: Temperature 96.8, pulse 88, respirations 16, blood pressure 179/79. Lungs: Basal crackles. Heart: S1, S2. Regular. Abdomen: Soft, nontender. Bowel sounds present. Laboratory Data: Shows WBC 6, hemoglobin 10.5, platelets are 347. Chemistry shows sodium 132, potas sium 3.2, chloride 89, bicarb 24, BUN 18, creatinine 0.8. Blood cultures and urine cultures are grow ing Enterococcus faecalis. Medication: Patient is currently on Levaquin 500 mg. Assessment And Plan: Bacteremia and urinary tract infection secondary to Enterococcus faecalis. Sep sis is improved. Anemia of chronic disease. Severe protein-calorie malnourishment. Continue suppor tive care. Monitor signs of infection with WBC and fever trends. NF/MODL Voice ID: [id number] Report ID: [id number]
[2022-04-22] MEDS ORDERED: ALBUTEROL 2.5 MG/3 ML NEB SOL NEB PRN (16:53)
[2022-04-22] MEDS ORDERED: IPRATROPIUM BROM 0.5MG/2.5ML NEB PRN (16:53)
[2022-04-22] MEDS: HYDROCODONE/APAP 5/325 MG TAB PO PRN ×2 (17:45→23:59)
[2022-04-22] MEDS ORDERED: AMLODIPINE 5 MG TAB PO ONE (20:00)
[2022-04-22] MEDS: ALPRAZOLAM 0.5 MG TABLET PO PRN (21:59)
[2022-04-22] MEDS: LOSARTAN POTASSIUM 50 MG TABLET PO SCH (22:00)
[2022-04-22] MEDS ORDERED: FUROSEMIDE 40 MG TABLET PO ONE (23:00)
[2022-04-23] MEDS: METOPROLOL TAR 50 MG TAB PO SCH ×2 (05:27→17:00)
[2022-04-23 05:52] LABS: Absolute Lymphocytes (CBC) 0.8 K/uL (0.7-4.9); Hematocrit 30.8 % (39.6-49.0); Lymphocytes % 9.8 % (15.3-44.8); MCV 88.3 fL (80-100); MPV 7.8 fL (7.6-11.3); RBC Red Blood Cell Count 3.49 M/uL (4.33-5.43)
[2022-04-23 06:08] LABS: Magnesium 1.6 mg/dL (1.8-2.4)
--- NOTE | 2022-04-23 07:28 | RAD REPORT ---
EXAM DESCRIPTION: Marli Single View04/23/2022 6:19 am CLINICAL HISTORY: Shortness breath COMPARISON: April 22, 2022 FINDINGS: [id number] bilateral pulmonary opacities have mildly improved. Heart is mildly enlarged. Small bilateral pleural effusions
[2022-04-23] MEDS ORDERED: PNEUMOCOCCAL VACCINE 0.5 ML IMVAC ONE (08:00)
[2022-04-23] MEDS: INSULIN -REGULAR HUMAN 50 UNIT/0.5 ML ML SQ SCH ×4 (08:37→20:14)
[2022-04-23] MEDS: predniSONE 20 MG TAB PO SCH (08:39)
[2022-04-23] MEDS: levoFLOXacin 500 MG TAB PO SCH (08:39)
[2022-04-23] MEDS: FUROSEMIDE 40 MG TABLET PO SCH ×2 (08:39→17:01)
[2022-04-23] MEDS: LOSARTAN POTASSIUM 50 MG TABLET PO SCH ×2 (08:39→20:13)
[2022-04-23] MEDS ORDERED: Magnesium Sulfate 2gm IVPB 2 G/50 ML BAG IV ONE (16:34)
[2022-04-23 20:05] VITALS: O2SAT 93
[2022-04-23] MEDS: INSULIN GLARGINE 100 UNIT/ML SQ SCH (20:15)
[2022-04-23] MEDS: ALPRAZOLAM 0.5 MG TABLET PO PRN (20:15)
[2022-04-23] MEDS ORDERED: CLOPIDOGREL 75 MG TABLET PO SCH (21:00)
--- NOTE | 2022-04-23 22:06 | P.PN ---
Date of Service: 04/19/22 Subjective Patient is wanting to go home. He is feeling a little bit better. Still awaiting for cultures to come back. Blood cultures and urine cultures are positive. It appears to be a Streptococcus species. Waiting for identification and sensitivities. Continue with IV antibiotic therapy. Echocardiogram. Physical Examination - Vital Signs Reviewed - Physical Exam General: Alert, In no apparent distress, Oriented x3 HEENT: Within normal limits Respiratory: Clear to auscultation bilaterally, Normal air movement Cardiovascular: No edema, Regular rate/rhythm, Normal S1 S2, No gallops, No rubs, No murmurs Gastrointestinal: Normal bowel sounds, Soft and benign, Non-distended, No tenderness, No rebound, No guarding Neurological: Diminished strength; otherwise no focal deficits Assessment and Plan -Assessment 1. Severe Sepsis likely secondary to Urinary Tract Infection with Hematuria 2. Gross Hematuria with Right-Sided Hydronephrosis and possible Bladder Outlet Obstruction 3. 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 Hyperglycemia in Type II Diabetes Mellitus complicated by Diabetic Neuropathy 5. Hypomagnesemia 6. Recent Non-ST Segment Elevation Myocardial Infarction 7. Peripheral Artery Disease s/p Left Femoral Artery Bypass 8. Hypertension 9. Dyslipidemia 10. Deconditioning and Left-Sided Weakness 11. Reported History of CVA with Residual Left-Sided Deficits 12. Right Cerebral Hemisphere Infarcts 13. Tobacco Use Disorder 14. CHF, systolic dysfunction (EF=40%) - Plan Continue with plan of care as mentioned below: 1. Continue with IV antibiotics 2. Continue with Gunderson catheter 3. Monitor H&H 4. Strict blood sugar control 5. Continue with cardiac meds 6. Physical therapy evaluation appreciated 7. Antiplatelet and statin therapy 8. Tobacco cessation
--- NOTE | 2022-04-23 22:08 | P.PN ---
Date of Service: 04/20/22 Subjective blood cultures are showing Enterococcus. However, urine cultures are showing Streptococcus. Spoke with Infectious Disease and will continue with Levaquin. Continuing monitoring hemodynamics. Patient is overall doing better. He could be working with physical therapy more. He really does not allow himself to work with physical therapy as much as he needs to. Anticipate discharge over the next 48 hours. Physical Examination - Vital Signs Reviewed - Physical Exam General: Alert, In no apparent distress, Oriented x3 HEENT: Within normal limits Respiratory: Clear to auscultation bilaterally, Normal air movement Cardiovascular: No edema, Regular rate/rhythm, Normal S1 S2, No gallops, No rubs, No murmurs Gastrointestinal: Normal bowel sounds, Soft and benign, Non-distended, No tenderness, No rebound, No guarding Neurological: Diminished strength; otherwise no focal deficits Assessment and Plan -Assessment 1. Severe Sepsis likely secondary to Urinary Tract Infection with Hematuria 2. Gross Hematuria with Right-Sided Hydronephrosis and possible Bladder Outlet Obstruction 3. 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 Hyperglycemia in Type II Diabetes Mellitus complicated by Diabetic Neuropathy 5. Hypomagnesemia 6. Recent Non-ST Segment Elevation Myocardial Infarction 7. Peripheral Artery Disease s/p Left Femoral Artery Bypass 8. Hypertension 9. Dyslipidemia 10. Deconditioning and Left-Sided Weakness 11. Reported History of CVA with Residual Left-Sided Deficits 12. Right Cerebral Hemisphere Infarcts 13. Tobacco Use Disorder 14. CHF, systolic dysfunction (EF=40%) - Plan Continue with plan of care as mentioned below: 1. Continue with IV antibiotics 2. Continue with Gunderson catheter; Plan to remove it in the morning 3. Monitor H&H; hemoglobin has been stable 4. Strict blood sugar control 5. Continue with cardiac meds 6. Physical therapy evaluation appreciated 7. Antiplatelet and statin therapy 8. Tobacco cessation 9. Monitor volume status closely 10. GI and DVT prophylaxis
--- NOTE | 2022-04-23 22:17 | P.PN ---
Date of Service: 04/21/22 Subjective Patient became very short of breath. Patient was dyspneic at rest. Patient was started on Lasix. Also, given steroids and nebs treatment. Chest x-ray with bilateral infiltrates. Physical Examination - Vital Signs Reviewed - Physical Exam General: Alert, In no apparent distress, Oriented x3 HEENT: Within normal limits Respiratory: Basilar crackles Cardiovascular: regular, rate and rhythm with systolic ejection murmur 2/ Gastrointestinal: Normal bowel sounds, Soft and benign, Non-distended, No tenderness, No rebound, No guarding Neurological: Diminished strength; otherwise no focal deficits Ext: no clubbing/cyanosis/ edema Assessment and Plan -Assessment 1. Severe Sepsis likely secondary to Urinary Tract Infection with Hematuria 2. Gross Hematuria with Right-Sided Hydronephrosis and possible Bladder Outlet Obstruction; 3. 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 Hyperglycemia in Type II Diabetes Mellitus complicated by Diabetic Neuropathy 5. Hypomagnesemia 6. Recent Non-ST Segment Elevation Myocardial Infarction 7. Peripheral Artery Disease s/p Left Femoral Artery Bypass 8. Hypertension 9. Dyslipidemia 10. Deconditioning and Left-Sided Weakness 11. Reported History of CVA with Residual Left-Sided Deficits 12. Right Cerebral Hemisphere Infarcts 13. Tobacco Use Disorder 14. CHF, systolic dysfunction (EF=40%) - Plan Continue with plan of care as mentioned below: 1. Patient appears to be in CHF exacerbation. Will try to diuresed extensively. Also with a history of COPD and will give IV Solu-Medrol and nebs. Repeat chest x-ray. Continue with IV antibiotics 2. Continue with Gunderson catheter; will place a leg bag prior to discharge & outpatient Urology follow-up 3. Hemoglobin has been stable 4. Strict blood sugar control 5. Continue with cardiac meds 6. Physical therapy evaluation appreciated 7. Antiplatelet and statin therapy 8. Tobacco cessation 9. Monitor volume status closely 10. GI and DVT prophylaxis
--- NOTE | 2022-04-23 22:23 | P.PN ---
Date of Service: 04/22/22 Subjective Patient's respiratory status is somewhat better. However, chest x-ray still shows bilateral infiltrates. Continue with aggressive diuresing. Cultures grew out Enterococcus. Continue with Levaquin. Continue with diuresing and wean off O2. Repeat chest x-ray in the morning. Physical Examination - Vital Signs Reviewed - Physical Exam General: Alert, In no apparent distress, Oriented x3 HEENT: Within normal limits Respiratory: Basilar crackles Cardiovascular: regular, rate and rhythm with systolic ejection murmur 2/ Gastrointestinal: Normal bowel sounds, Soft and benign, Non-distended, No tenderness, No rebound, No guarding Neurological: Diminished strength; otherwise no focal deficits Ext: no clubbing/cyanosis/ edema Assessment and Plan -Assessment 1. Severe Sepsis likely secondary to Urinary Tract Infection with Hematuria 2. Gross Hematuria with Right-Sided Hydronephrosis and possible Bladder Outlet Obstruction; 3. 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 Hyperglycemia in Type II Diabetes Mellitus complicated by Diabetic Neuropathy 5. Hypomagnesemia 6. Recent Non-ST Segment Elevation Myocardial Infarction 7. Peripheral Artery Disease s/p Left Femoral Artery Bypass 8. Hypertension 9. Dyslipidemia 10. Deconditioning and Left-Sided Weakness 11. Reported History of CVA with Residual Left-Sided Deficits 12. Right Cerebral Hemisphere Infarcts 13. Tobacco Use Disorder 14. CHF, systolic dysfunction (EF=40%) - Plan Continue with plan of care as mentioned below: 1. Continue with diuresing aggressively. Also with a history of COPD and will give IV Solu-Medrol and nebs. Repeat chest x-ray. Continue with IV antibiotics 2. Continue with Gunderson catheter; will place a leg bag prior to discharge & outpatient Urology follow-up 3. Hemoglobin has been stable 4. Strict blood sugar control 5. Continue with cardiac meds 6. Physical therapy evaluation appreciated 7. Antiplatelet and statin therapy 8. Tobacco cessation 9. Monitor volume status closely 10. GI and DVT prophylaxis
--- NOTE | 2022-04-23 22:37 | P.PN ---
Date of Service: 04/23/22 Subjective Spoke with patient's sister and did notify them regarding discharge planning. Anticipate discharge in the morning. Patient clinically is doing better. Respiratory status has improved. Diuresed extensively. He feels much better. Patient's respiratory status is somewhat better. However, chest x-ray still shows bilateral infiltrates. Continue with aggressive diuresing. Cultures grew out Enterococcus. Continue with Levaquin. Continue with diuresing and wean off O2. Repeat chest x-ray in the morning. Physical Examination - Vital Signs Reviewed - Physical Exam General: Alert, In no apparent distress, Oriented x3 HEENT: Within normal limits Respiratory: Basilar crackles Cardiovascular: regular, rate and rhythm with systolic ejection murmur 2/6 Gastrointestinal: Normal bowel sounds, Soft and benign, Non-distended, No tenderness, No rebound, No guarding Neurological: Diminished strength; otherwise no focal deficits Ext: no clubbing/cyanosis/ edema Assessment and Plan -Assessment 1. Severe Sepsis likely secondary to Urinary Tract Infection with Hematuria 2. Gross Hematuria with Right-Sided Hydronephrosis and possible Bladder Outlet Obstruction; 3. 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 Hyperglycemia in Type II Diabetes Mellitus complicated by Diabetic Neuropathy 5. Hypomagnesemia 6. Recent Non-ST Segment Elevation Myocardial Infarction 7. Peripheral Artery Disease s/p Left Femoral Artery Bypass 8. Hypertension 9. Dyslipidemia 10. Deconditioning and Left-Sided Weakness 11. Reported History of CVA with Residual Left-Sided Deficits 12. Right Cerebral Hemisphere Infarcts 13. Tobacco Use Disorder 14. CHF, systolic dysfunction (EF=40%) - Plan Continue with plan of care as mentioned below: 1. Continue with diuresing aggressively. Wean off steroids-on prednisone. Continue prn nebs. Repeat chest x-ray. Continue with IV antibiotics 2. Continue with Gunderson catheter; will place a leg bag prior to discharge & outpatient Urology follow-up 3. Hemoglobin has been stable 4. Strict blood sugar control; check Hg A1c. Check with Insulin 5. Continue with cardiac meds 6. Physical therapy evaluation appreciated 7. Continue with antiplatelet and statin therapy 8. Tobacco cessation 9. Monitor volume status closely; large amount of UOP 10. GI and DVT prophylaxis
[2022-04-23] MEDS ORDERED: FUROSEMIDE 40 MG TABLET PO ONE (23:00)
[2022-04-23] MEDS: HYDROCODONE/APAP 5/325 MG TAB PO PRN (23:55)
[2022-04-24 06:14] LABS: Absolute Lymphocytes (CBC) 2.3 K/uL (0.7-4.9); Hematocrit 31.1 % (39.6-49.0); Lymphocytes % 19.7 % (15.3-44.8); MCV 87.8 fL (80-100); MPV 7.5 fL (7.6-11.3); RBC Red Blood Cell Count 3.54 M/uL (4.33-5.43)
[2022-04-24] MEDS: METOPROLOL TAR 50 MG TAB PO SCH (06:17)
[2022-04-24] MEDS: HYDROCODONE/APAP 5/325 MG TAB PO PRN (06:18)
[2022-04-24 06:26] LABS: Magnesium 1.9 mg/dL (1.8-2.4); Potassium 3.5 mmol/L (3.5-5.1)
[2022-04-24] MEDS ORDERED: PANTOPRAZOLE 40MG TABLET PO SCH (07:30)
--- NOTE | 2022-04-24 07:50 | RAD REPORT ---
EXAM DESCRIPTION: RAD - Chest Single View - 04/24/2022 6:33 am CLINICAL HISTORY: pneumonia COMPARISON: Chest Single View dated 04/23/2022; Chest Single View dated 04/22/2022; Chest Single Vie w dated 04/21/2022; Chest Single View dated 04/17/2022; Chest Abd Pelvis Wo Con dated 04/17/2022 FINDINGS: Lines: None. Lungs: Diffuse prominence of the pulmonary interstitium which is similar to marginally in . . Pleural: Small effusions difficult to exclude. Cardiac: Mild cardiomegaly. Mediastinum: Within normal limits. Bones: No acute fractures. Other: None IMPRESSION: Similar to marginally improved edema. No focal airspace process.
[2022-04-24] MEDS: LOSARTAN POTASSIUM 50 MG TABLET PO SCH (08:31)
[2022-04-24] MEDS: levoFLOXacin 500 MG TAB PO SCH (08:31)
[2022-04-24] MEDS: FUROSEMIDE 40 MG TABLET PO SCH (08:31)
[2022-04-24] MEDS: INSULIN GLARGINE 100 UNIT/ML SQ SCH (08:32)
[2022-04-24] MEDS: INSULIN -REGULAR HUMAN 50 UNIT/0.5 ML ML SQ SCH ×2 (08:32→11:34)
[2022-04-24] MEDS: INSULIN LISPRO 100 UNIT/1 ML SQ SCH ×2 (08:33→11:35)
[2022-04-24] MEDS ORDERED: MAGNESIUM CHLORIDE 64 MG TAB PO SCH (09:00)
[2022-04-24] MEDS ORDERED: ASPIRIN EC 81 MG TAB PO SCH (09:00)
[2022-04-24] MEDS ORDERED: LOSARTAN POTASSIUM 50 MG TABLET PO SCH (09:00)
[2022-04-24] MEDS ORDERED: POTASSIUM 25 MEQ EFFERV TAB PO SCH (09:00)
[2022-04-24] MEDS ORDERED: predniSONE 20 MG TAB PO SCH (09:00)
[2022-04-24] MEDS ORDERED: ATORVASTATIN 40 MG TAB PO SCH (09:00)
[2022-04-24] MEDS ORDERED: IPRATROPIUM BROM 0.5MG/2.5ML NEB PRN (12:00)
[2022-04-24] MEDS ORDERED: ALBUTEROL 2.5 MG/3 ML NEB SOL NEB PRN (12:00)
[2022-04-24 13:44] VITALS: BP 150/71; TEMP 97.4
== END 2022-04-24 17:10 | disposition home or self-care (01) | DRG 871 ==
LOC: ER 15:25 → ERHOLD 19:37 → 4TH 21:12
PROVIDERS: ADMIT Internal Medicine; ATTEND Hospitalist
DX: A41.81 Sepsis due to Enterococcus (principal); E43 Unspecified severe protein-calorie malnutrition; I50.23 Acute on chronic systolic (congestive) heart failure; N13.6 Pyonephrosis; I69.354 Hemiplegia and hemiparesis following cerebral infarction affecting left non-dominant side; R65.20 Severe sepsis without septic shock; I11.0 Hypertensive heart disease with heart failure; E78.5 Hyperlipidemia, unspecified; E11.51 Type 2 diabetes mellitus with diabetic peripheral angiopathy without gangrene; E11.65 Type 2 diabetes mellitus with hyperglycemia; E11.40 Type 2 diabetes mellitus with diabetic neuropathy, unspecified; E83.42 Hypomagnesemia; D63.8 Anemia in other chronic diseases classified elsewhere; J44.9 Chronic obstructive pulmonary disease, unspecified; I69.398 Other sequelae of cerebral infarction; F17.210 Nicotine dependence, cigarettes, uncomplicated; I25.2 Old myocardial infarction; R31.0 Gross hematuria; Z23 Encounter for immunization; Z79.84 Long term (current) use of oral hypoglycemic drugs; Z68.32 Body mass index [BMI] 32.0-32.9, adult; Z79.02 Long term (current) use of antithrombotics/antiplatelets; Z79.890 Hormone replacement therapy; Z79.899 Other long term (current) drug therapy; Z20.822 Contact with and (suspected) exposure to COVID-19
CPT/HCPCS: 36415; 51702; 71045; 71250; 74176; 80048; 80053; 80202; 81003; 81015; 82805; 82947; 83605; 83690; 83735; 83880; 84100; 84145; 84484; 85014; 85018; 85025; 85610; 85730; 86850; 86900; 86901; 87040; 87077; 87086; 87088; 87186; 87205; 87804; 90471; 90732; 93005; 94640; 96361; 96374; 96375; 97110; 97116; 97161; 97530; 99285; J0360; J1815; J1940; J2270; J2543; J2930; J3370; J3475; J7030; J7040; J7512; U0003

== ENCOUNTER 2022-04-26 11:15 | Emergency (ER) | payer MEDICARE ==
--- OUTSIDE RECORDS SUMMARY | 2022-04-26 11:30 | XMS REPORT | Continuity of Care Document ---
:[address] [facility] t Address [address] [place] [address] Dr. Coy [address] [place] [id number] Care Team Providers Name Role Phone Unavailable Unavailable Unavailable Payers Payer Name Policy Type Policy Number Effective Date Expiration Date [facility] [id number] 2022 (MEDICARE 00:00:00 REPLACEMENT [...] Department ID 2022-02-24 2022-02-24 Outpatient [facility] [id number] [facility] 00:00:00 00:00:00 [id number] Medica l Group Results This patient has no known results.
[2022-04-26] MEDS ORDERED: Levofloxacin500mg IV 500 MG/100 ML BAG IV ONE (12:25)
--- NOTE | 2022-04-26 13:21 | EDPHYS ---
Physician Documentation [facility] Name: Thom Wright Age: 61 yrs Sex: Male : 1960 Arrival Date: 04/26/2022 Time: 11:23 Bed 24 Private MD: ED Physician Luis M English HPI: 04/26 12:20 This 61 yrs old Male presents to ER via EMS with complaints of Blood In Catheter. pm1 12:20 The patient presents with a Wilson catheter problem, increased bloody urine. Onset: The pm1 symptoms/episode began/occurred 2 day(s) ago. Modifying factors: The symptoms are alleviated by nothing, the symptoms are aggravated by nothing. Associated signs and symptoms: Pertinent negatives: abdominal pain, fever, nausea, vomiting. Severity of symptoms: in the emergency department the symptoms are actually worse, mildly. The patient has experienced similar episodes in the past, Patient with blood present in wilson bag since hospitalization and discharge. The patient has been recently been admitted at [facility], for urosepsis and discharged home two days ago. 12:20 Patient is presenting to the ER with request for wilson catheter removal. pm1 Historical: - Allergies: 11:35 NKDA; tp1 - Home Meds: 12:51 insulin aspart [Active]; clopidogrel oral [Active]; pantoprazole oral [Active]; Aspirin tp1 Oral [Active]; atorvastatin oral [Active]; losartan oral [Active]; insulin levemir [Active]; - PMHx: 11:35 diabetes mellitus; Hypertensive disorder; Pancreatitis; peripheral vascular disease; tp1 stroke ( deficit left side paralysis); COPD; [place]; stent; CVA; - PSHx: 11:37 Carotid endarterectomy; Femoral bypass; tp1 - Immunization history:: Client reports receiving the 2nd dose of the Covid vaccine. - Social history:: Smoking status: Patient reports the use of cigarette tobacco products, smokes one pack cigarettes per day. ROS: 12:20 Constitutional: Negative for fever, chills, and weight loss, Cardiovascular: Negative pm1 for chest pain, palpitations, and edema, Respiratory: Negative for shortness of breath, cough, wheezing, and pleuritic chest pain, Abdomen/GI: Negative for abdominal pain, nausea, vomiting, diarrhea, and constipation, Back: Negative for injury and pain. 12:20 MS/Extremity: Negative for injury and deformity, Skin: Negative for injury, rash, and discoloration, Neuro: Negative for headache, weakness, numbness, tingling, and seizure. 12:20 : Positive for hematuria. 12:20 All other systems are negative. Exam: 12:20 Constitutional: This is a well developed, well nourished patient who is awake, alert, pm1 and in no acute distress. Head/Face: Normocephalic, atraumatic. 12:20 Back: No spinal tenderness. No costovertebral tenderness. Full range of motion. Skin: Warm, dry with normal turgor. Normal color with no rashes, no lesions, and no evidence of cellulitis. MS/ Extremity: Pulses equal, no cyanosis. Neurovascular intact. Full, normal range of motion. 12:20 Eyes: Exam is negative for acute changes, Periorbital structures: appear normal, Pupils: no acute changes, Extraocular movements: no acute changes, Conjunctiva: no acute changes, no injection. 12:20 ENT: Mouth: no acute changes, Lips: normal, moist, Oral mucosa: normal, pink and intact, moist. 12:20 Cardiovascular: Exam negative for acute changes, Rate: normal, Rhythm: regular, Pulses: no pulse deficits are appreciated. 12:20 Respiratory: Exam negative for acute changes, respiratory distress, shortness of breath, Breath sounds: are clear throughout. 12:20 Neuro: Exam negative for acute changes, Orientation: is normal, Mentation: is normal. Vital Signs: 11:14 BP 127 / 72; Pulse 94; Resp 18; Temp 98.7; Pulse Ox 98% on 2 lpm NC; Weight 90.72 kg; tp1 Height 6 ft. (182.88 cm); 12:44 BP 156 / 63; Pulse 94; Resp 16; Pulse Ox 100% on 2 lpm NC; tp1 13:52 BP 165 / 91; Pulse 88; Resp 18; Pulse Ox 100% on 2 lpm NC; em6 11:14 Body Mass Index 27.12 (90.72 kg, 182.88 cm) tp1 MDM: 11:29 Patient medically screened. pm1 12:20 ED course: Patient was admitted to the hospital on 04/17/2022 for urosepsis with pm1 hematuria and was discharged on 04/24/2023. Patient presents to the ER with complaint of request for removal of his Wilson catheter. Patient was admitted and discharged home with hematuria present in his Wilson bag, and patient's sister called EMS due to increased amount of blood present in Wilson bag. Patient has not taken any of his antibiotics since being discharge because he has not gotten them filled. The increased amount of blood in his Wilson bag is likely due to lack of compliance with antibiotics causing his cystitis with hematuria to get worse. Patient without any other complaints except requesting his wilson being removed. Patient without fever, abdominal pain, back pain, nausea or vomiting, altered mental status. Patient's vital signs within normal limits and no signs of sepsis present. Discussed patient presentation with attending MD, Amador, to determine patient's plan of care. Discussed options for plan of care with the patient, to give the patient his dose of antibiotics here and to either leave the Wilson catheter in place with follow-up with urology for removal or having it removed here as he requested. Patient wants the Wilson removed and discussed the risks and benefits of doing that. Patient is aware that there is a risk that he may have to get another Wilson placed if his hematuria causes him to have an inability to urinate. Enforced with the patient that he needs to fill the prescription for his antibiotics upon discharge from the ER here today and to start them tomorrow since I will give him a dose of Levaquin here. 13:19 Data reviewed: vital signs. Data interpreted: Pulse oximetry: on room air is 100 %. pm1 Interpretation: normal. 04/26 13:19 Order name: [facility] [place], [place]. Order: Discontinue Wilson; Complete Time: 13:55 pm1 Administered Medications: 12:44 Drug: LevaQUIN (levofloxacin) 500 mg Volume: 100 ml; Route: IVPB; Infused Over: 60 tp1 mins; Site: right wrist; 13:38 Follow up: Response: No adverse reaction; IV Status: Completed infusion; IV Intake: tp1 100ml Disposition Summary: 04/26/22 13:21 Discharge Ordered Location: Home pm1 Problem: new pm1 Symptoms: have improved pm1 Condition: Stable pm1 Diagnosis - Hematuria, unspecified pm1 Followup: pm1 - With: Emergency Department - When: As needed - Reason: Worsening of condition Followup: pm1 - With: Jacques Holcomb DO - When: 2 - 3 days - Reason: Recheck today's complaints, Continuance of care, Re-evaluation by your physician Followup: pm1 - With: Angel Jay MD - When: 2 - 3 days - Reason: Recheck today's complaints, Continuance of care, Re-evaluation by your physician Discharge Instructions: - Discharge Summary Sheet pm1 - Hematuria, Adult pm1 Forms: - Medication Reconciliation Form pm1 - Thank You Letter pm1 - Antibiotic Education pm1 - Prescription Opioid Use pm1 Signatures: Joey Donahue NP VETERANS' COUNSELOR pm1 Michelle Neal RN RN tp1 Corrections: (The following items were deleted from the chart) 12:54 12:51 Home Meds: levimir; tp1 tp1
--- NOTE | 2022-04-26 13:21 | ER ---
Nurse's Notes [facility] Name: Thom Wright Age: 61 yrs Sex: Male : 1960 Arrival Date: 04/26/2022 Time: :23 Bed 24 Private MD: Diagnosis: Hematuria, unspecified Presentation: 04/26 11:14 Chief complaint: EMS states: Tone out to PT home for blood in catheter. PT was tp1 discharged from [facility] on 04/24/22 for a UTI and blood in urine. PT was sent home with antibiotics but antibiotics were not filled. Blood in urine has increased. PT denies pain. PT reports using O2 2L via NC at home. 11:14 Method Of Arrival: EMS: [facility] tp1 11:14 Coronavirus screen: Vaccine status: Patient reports receiving the 2nd dose of the covid tp1 vaccine. Ebola Screen: Patient denies exposure to infectious person. Patient denies travel to an Ebola-affected area in the 21 days before illness onset. Initial Sepsis Screen: Does the patient meet any 2 criteria? No. Patient's initial sepsis screen is negative. Does the patient have a suspected source of infection? Yes: Dysuria/Frequency/Urgency/UTI. Risk Assessment: Do you want to hurt yourself or someone else? Patient reports no desire to harm self or others. Onset of symptoms was April 23, 2022. 11:14 Acuity: SONIA 3 tp1 Triage Assessment: 11:14 General: Appears in no apparent distress. comfortable, Behavior is calm, cooperative. tp1 Pain: Denies pain. EENT: No signs and/or symptoms were reported regarding the EENT system. Neuro: Celis Agitation-Sedation Scale (RASS): 0 - Alert and Calm Level of Consciousness is awake, alert, obeys commands, Oriented to person, place, time, situation. Cardiovascular: Patient's skin is warm and dry. Respiratory: Airway is patent Respiratory effort is even, unlabored, Respiratory pattern is regular. GI: Abdomen is round non-distended, Patient currently denies diarrhea, nausea, vomiting. : Wilson in place to gravity drainage red colored urine Denies burning with urination, pain. Derm: Skin is pink, warm \T\ dry. Musculoskeletal: left sided paralysis. Historical: - Allergies: 11:35 NKDA; tp1 - Home Meds: 12:51 insulin aspart [Active]; clopidogrel oral [Active]; pantoprazole oral [Active]; Aspirin tp1 Oral [Active]; atorvastatin oral [Active]; losartan oral [Active]; insulin levemir [Active]; - PMHx: 11:35 diabetes mellitus; Hypertensive disorder; Pancreatitis; peripheral vascular disease; tp1 stroke ( deficit left side paralysis); COPD; [place]; stent; CVA; - PSHx: 11:37 Carotid endarterectomy; Femoral bypass; tp1 - Immunization history:: Client reports receiving the 2nd dose of the Covid vaccine. - Social history:: Smoking status: Patient reports the use of cigarette tobacco products, smokes one pack cigarettes per day. Screenin:14 Abuse screen: Denies threats or abuse. Denies injuries from another. Nutritional tp1 screening: No deficits noted. Tuberculosis screening: No symptoms or risk factors identified. Fall Risk No fall in past 12 months (0 pts). Secondary diagnosis (15 points) impaired mobility, No IV (0 pts). Ambulatory Aid- None/Bed Rest/Nurse Assist (0 pts). Gait- Normal/Bed Rest/Wheelchair (0 pts) Mental Status- Oriented to own ability (0 pts). Total Green Fall Scale indicates No Risk (0-24 pts). Assessment: 11:14 General: see triage notes . tp1 12:44 Reassessment: Patient appears in no apparent distress at this time. No changes from tp1 previously documented assessment. Patient and/or family updated on plan of care and expected duration. Pain level reassessed. Patient is alert, oriented x 3, equal unlabored respirations, skin warm/dry/pink. Patient denies pain at this time. 12:50 Reassessment: Spoke with sister, Patsy Guevara, regarding transportation. tp1 13:28 Reassessment: discharge pending completion of medication administration. tp1 13:56 Reassessment: Patient appears in no apparent distress at this time. No changes from tp1 previously documented assessment. Patient and/or family updated on plan of care and expected duration. Pain level reassessed. Patient is alert, oriented x 3, equal unlabored respirations, skin warm/dry/pink. wilson catheter removed. 525 mL dark red urine noted. PT tolerated removal well. Patient denies pain at this time. 14:04 Reassessment: PT awaiting transportation in [employer]. PT denied need for O2 therapy while tp1 waiting. Educated PT to alert safe member if he becomes SOB. Vital Signs: 11:14 BP 127 / 72; Pulse 94; Resp 18; Temp 98.7; Pulse Ox 98% on 2 lpm NC; Weight 90.72 kg; tp1 Height 6 ft. (182.88 cm); 12:44 BP 156 / 63; Pulse 94; Resp 16; Pulse Ox 100% on 2 lpm NC; tp1 13:52 BP 165 / 91; Pulse 88; Resp 18; Pulse Ox 100% on 2 lpm NC; em6 11:14 Body Mass Index 27.12 (90.72 kg, 182.88 cm) tp1 ED Course: 11:14 Arm band placed on. tp1 11:14 Patient has correct armband on for positive identification. Bed in low position. Call tp1 light in reach. Side rails up X2. 11:23 Patient arrived in ED. tp1 11:23 Michelle Neal, SALLIE is Primary Nurse. tp1 11:28 Joey Donahue NP is PHCP. pm1 11:28 Luis M English MD is Attending Physician. pm1 11:35 Triage completed. tp1 12:44 Inserted saline lock: 20 gauge in right wrist, using aseptic technique. tp1 13:20 Jacques Holcomb DO is Referral Physician. pm1 13:21 Angel Jay MD is Referral Physician. pm1 14:05 No provider procedures requiring assistance completed. IV discontinued, intact, tp1 bleeding controlled, No redness/swelling at site. Pressure dressing applied. Administered Medications: 12:44 Drug: LevaQUIN (levofloxacin) 500 mg Volume: 100 ml; Route: IVPB; Infused Over: 60 tp1 mins; Site: right wrist; 13:38 Follow up: Response: No adverse reaction; IV Status: Completed infusion; IV Intake: tp1 100ml Medication: 13:53 VIS not applicable for this client. em6 Intake: 13:38 IV: 100ml; Total: 100ml. tp1 13:55 IV: 100ml; Total: 200ml. tp1 13:55 dark red urine noted tp1 Output: 13:55 Urine: 525ml (Wilson); Total: 525ml. tp1 13:55 dark red urine noted tp1 Outcome: 13:21 Discharge ordered by . pm1 14:05 Discharged to home via wheelchair. tp1 14:05 Condition: good 14:05 Discharge instructions given to patient, Instructed on discharge instructions, follow up and referral plans. Demonstrated understanding of instructions, follow-up care. 14:05 Patient left the ED. tp1 Signatures: Joey Donahue NP FORKLIFT OPERATOR pm1 Michelle Neal RN RN tp1 Vita Clifton RN RN em6 Corrections: (The following items were deleted from the chart) 12:54 12:51 Home Meds: levimir; tp1 tp1
[2022-04-26 14:47] VITALS: O2SAT 100
[2022-04-26 14:53] VITALS: BP 165/91
== END 2022-04-26 14:05 | disposition home or self-care (01) ==
LOC: ER 11:15
DX: R31.9 Hematuria, unspecified (principal); I10 Essential (primary) hypertension; E11.9 Type 2 diabetes mellitus without complications; F17.210 Nicotine dependence, cigarettes, uncomplicated; Z79.4 Long term (current) use of insulin
CPT/HCPCS: 96365; 99283

== ENCOUNTER 2022-05-13 20:28 | Emergency (ER) | payer MEDICARE, OTHER ==
--- OUTSIDE RECORDS SUMMARY | 2022-05-13 20:31 | XMS REPORT | Continuity of Care Document ---
:1960 Author Organization [facility] Address [facility] [place] [id number] Care Team Providers Name Role Phone Unavailable Unavailable Unavailable Payers Payer Name Policy Type Policy Number Effective Date Expiration Date [facility] [id number] 2022 (MEDICARE 00:00:00 REPLACEMENT O) Problems This patient has no known problems. Allergies, Adverse Reactions, Alerts This patient has no known allergies or adverse reactions. Medications This patient has no known medications. Procedures This patient has no known procedures. Encounters Start End Encounter Admission Attending Care Care Encounter Source Date/Time Date/Time Type Type Clinicians Facility Department ID 2022-04-27 2022-04-27 [id number]00 [facility] 2022-02-24 2022-02-24 [facility] [id number] [facility]00 [facility] l [facility] Results This patient has no known results.
--- NOTE | 2022-05-13 21:51 | RAD REPORT ---
EXAM DESCRIPTION: RAD - Chest Single View - 05/13/2022 9:42 pm CLINICAL HISTORY: rectal pain COMPARISON: Chest Single View dated 04/24/2022; Chest Single View dated 04/23/2022; Chest Single Vie w dated 04/22/2022; Chest Single View dated 04/21/2022 FINDINGS: Lines: None. Lungs: No evidence of edema or pneumonia. Pleural: No significant pleural effusions or pneumothorax. Cardiac: The heart size is within normal limits. Mediastinum: Within normal limits. Bones: No acute fractures. Other: None IMPRESSION: No acute cardiopulmonary disease.
[2022-05-13 22:19] LABS: Absolute Lymphocytes (CBC) 1.1 K/uL (0.7-4.9); Hematocrit 25.6 % (39.6-49.0); Lymphocytes % 9.2 % (15.3-44.8); MCV 88.3 fL (80-100); MPV 7.6 fL (7.6-11.3)
[2022-05-13 22:23] LABS: Protime INR 1.01
[2022-05-13] MEDS ORDERED: NA CHLORIDE 0.9% 250 ML ONE (22:56)
[2022-05-13] MEDS ORDERED: PANTOPRAZOLE 40 MG INJ ONE (22:56)
[2022-05-13 23:31] LABS: ALT/SGPT 19 U/L (12-78); AST/SGOT 8 U/L (15-37); Albumin 2.3 g/dL (3.4-5.0); Alkaline Phosphatase 114 U/L (45-117); BUN Blood Urea Nitrogen 46 mg/dL (7-18); Bicarbonate 26 mmol/L (21-32); Bilirubin Total 0.3 mg/dL (0.2-1.0); Glomerular Filtration Rate 48 ml/min (=/>90); Glucose Level 287 mg/dL (74-106); Magnesium 1.6 mg/dL (1.8-2.4); NT PRO-BNP 793 pg/mL (<125); Potassium 4.2 mmol/L (3.5-5.1); Protein, Total 6.6 g/dL (6.4-8.2); Sodium Level 132 mmol/L (136-145); Troponin High Sensitivity 22.8 pg/mL (<58.9)
[2022-05-13 23:32] LABS: Bilirubin Direct < 0.1 mg/dL (0-0.2)
[2022-05-13] MEDS ORDERED: NA CHLORIDE 0.9% 500 ML ONE (23:37)
--- NOTE | 2022-05-14 00:04 | EDPHYS ---
Physician Documentation [facility] Name: Thom Wright Age: 61 yrs Sex: Male : 1960 Arrival Date: 05/13/2022 Time: 20:30 Bed 18 Private MD: ED Physician Andrew Trinidad HPI: 05/13 20:45 This 61 yrs old Male presents to ER via Unassigned with complaints of Blood in Stool. cp 20:45 The patient presents to the emergency department with rectal bleeding, a large amount, cp dark red blood with bowel movement. Onset: The symptoms/episode began/occurred today. Abdominal pain: none is appreciated. 20:45 Associated signs and symptoms: Pertinent negatives: chest pain, constipation, diarrhea, cp dizziness at rest, fever, shortness of breath, syncope. 20:45 Severity of symptoms: in the emergency department the symptoms are unchanged despite cp home interventions. Historical: - Allergies: 21:13 NKDA; ha1 - Home Meds: 21:13 atorvastatin Oral [Active]; Aspirin Oral [Active]; Insulin Aspart [Active]; insulin ha1 levemir [Active]; clopidogrel Oral [Active]; losartan Oral [Active]; - PMHx: 21:15 CVA; diabetes mellitus; Hypertensive disorder; stroke ( deficit left side paralysis); ha1 [place]; COPD; - Immunization history:: Adult Immunizations up to date. - Social history:: Smoking status: Patient reports the use of cigarette tobacco products, smokes one pack cigarettes per day. ROS: 20:50 Constitutional: Negative for body aches, chills, fever, poor PO intake. cp 20:50 Eyes: Negative for injury, pain, redness, and discharge. cp 20:50 ENT: Negative for drainage from ear(s), ear pain, sore throat, difficulty swallowing, difficulty handling secretions. 20:50 Cardiovascular: Negative for chest pain, edema, palpitations. 20:50 Respiratory: Negative for cough, shortness of breath, wheezing. 20:50 Abdomen/GI: Positive for rectal bleeding, Negative for abdominal pain, nausea, vomiting, and diarrhea. 20:50 Back: Negative for pain at rest, pain with movement. 20:50 : Negative for urinary symptoms. 20:50 Neuro: Negative for altered mental status, dizziness, headache, syncope, weakness. 20:50 All other systems are negative. Exam: 20:55 Constitutional: The patient appears in no acute distress, alert, awake, cp non-diaphoretic, non-toxic, well developed, well nourished. 20:55 Head/Face: Normocephalic, atraumatic. cp 20:55 Eyes: Periorbital structures: appear normal, Conjunctiva: normal, no exudate, no injection, Sclera: no appreciated abnormality, Lids and lashes: appear normal, bilaterally. 20:55 ENT: External ear(s): are unremarkable, Nose: is normal, Mouth: Lips: moist, Oral mucosa: pink and intact, moist, Posterior pharynx: Airway: no evidence of obstruction, patent. 20:55 Chest/axilla: Inspection: normal, Palpation: is normal, no crepitus, no tenderness. 20:55 Cardiovascular: Rate: normal, Rhythm: regular, Edema: is not appreciated, JVD: is not appreciated. 20:55 Respiratory: the patient does not display signs of respiratory distress, Respirations: normal, no use of accessory muscles, no retractions, labored breathing, is not present, Breath sounds: are clear throughout, no decreased breath sounds, no stridor, no wheezing. 20:55 Abdomen/GI: Inspection: obese Bowel sounds: active, all quadrants, Palpation: soft, in all quadrants, nontender, in all quadrants, Rectal exam: Stool: guaiac positive, black, maroon. 20:55 Back: pain, is absent, ROM is normal. 20:55 Neuro: Orientation: to person, place \T\ time. Mentation: is normal, Motor: no acute changes, Sensation: no acute changes. Vital Signs: 20:30 BP 128 / 76; Pulse 76; Resp 17 S; Pulse Ox 98% on R/A; ha1 21:07 BP 128 / 76; Pulse 76; Resp 17 S; Temp 98.2; Pulse Ox 98% ; Weight 86.18 kg; Height 6 ha1 ft. (182.88 cm); 21:30 BP 114 / 79; Pulse 75; Resp 18 S; Pulse Ox 96% on R/A; ha1 22:30 BP 122 / 66; Pulse 81; Resp 17 S; Pulse Ox 96% on R/A; ha1 23:30 BP 92 / 56; Pulse 73; Resp 18 S; Pulse Ox 96% on R/A; [facility] 05/14 01:30 BP 112 / 79; Pulse 75; Resp 16 S; Pulse Ox 96% on R/A; [facility] 02:30 BP 121 / 66; Pulse 76; Resp 17 S; Pulse Ox 96% on R/A; [facility] 05/13 21:07 Body Mass Index 25.77 (86.18 kg, 182.88 cm) [facility] MDM: 05/13 20:32 Patient medically screened. 21:00 Differential diagnosis: gastritis, diverticulitis, hemorrhoids, hemorrhagic shock, cp varices. 05/14 00:25 Data reviewed: vital signs, nurses notes, lab test result(s), EKG, radiologic studies, cp CT scan, I have discussed the patient's presentation/case with the attending Emergency Department Physician;. 00:25 Test interpretation: by ED physician or midlevel provider: ECG, plain radiologic cp studies. 01:00 Physician consultation: was contacted at 00:45, regarding regarding transfer, to [facility]. cp patient's condition, accepting physician will be DR Cabrera. 05/13 20:53 Order name: Basic Metabolic Panel; Complete Time: 23:42 05/13 23:43 Interpretation: Normal except: NA 132; GLUC 287; BUN 46; CRE 1.60; GFR 48. 05/13 20:53 Order name: CBC with Diff; Complete Time: 22:30 05/13 22:38 Interpretation: Normal except: WBC 12.10; RBC 2.90; HGB 8.7; HCT 25.6; CRISTOFER% 82.2; LYM% cp 9.2; NEUT A 10.0. 05/13 20:53 Order name: LFT's; Complete Time: 23:42 cp 05/13 20:53 Order name: Magnesium; Complete Time: 23:42 05/13 23:43 Interpretation: Abnormal: MG 1.6. 05/13 20:53 Order name: NT PRO-BNP; Complete Time: 23:42 05/13 20:53 Order name: PT-INR; Complete Time: 22:37 05/13 20:53 Order name: Troponin HS; Complete Time: 23:42 05/13 20:53 Order name: Ptt, Activated; Complete Time: 22:37 05/13 20:53 Order name: Type And Screen 05/13 23:28 Interpretation: Reviewed. 05/13 22:44 Order name: SARS RAPID cp 05/13 23:44 Order name: Procalcitonin; Complete Time: 00:23 05/13 20:53 Order name: XRAY Chest (1 view); Complete Time: 22:04 05/13 22:05 Interpretation: Report review. 05/13 20:53 Order name: Cardiac monitoring; Complete Time: 22:12 05/13 20:53 Order name: EKG - Nurse/Tech 05/13 20:53 Order name: IV Saline Lock; Complete Time: 22:12 05/13 20:53 Order name: Labs collected and sent; Complete Time: 22:12 05/13 20:53 Order name: O2 Per Protocol; Complete Time: 22:12 05/13 20:53 Order name: O2 Sat Monitoring; Complete Time: 22:12 05/13 23:56 Order name: CT Abd/Pelvis - Without Contrast; Complete Time: 00:23 05/14 00:24 Order name: Transfuse cp Administered Medications: 05/13 23:15 Drug: ProTONIX (pantoprazole) 8 mg/hr Route: IV; Rate: 25 ml/hr; Site: left antecubital;ha1 23:15 Drug: ProTONIX (pantoprazole) 40 mg Route: IVP; Site: left antecubital; ha1 23:45 Follow up: Response: No adverse reaction ha1 23:50 Drug: NS 0.9% 500 ml Route: IV; Rate: bolus; Site: left antecubital; ha1 05/14 01:30 Drug: Magnesium Sulfate 1 grams {Note: EJ.} Route: IVPB; Infused Over: 1 hrs; Site: ha Other; 03:00 Follow up: Response: No adverse reaction; IV Intake: 100ml ha1 03:01 Not Given (need transferr): Zosyn (piperacillin-tazobactam) 3.375 grams IVPB once over ha1 60 mins; (mix in NS 100 mL) Disposition Summary: 05/14/22 00:03 Transfer Ordered Transfer Location: [facility] cp Reason: Higher level of care cp Condition: Stable cp Problem: new cp Symptoms: have improved cp Accepting Physician: DR Cabrera(05/14/22 03:01) ha1 Diagnosis - GI Bleed/ Gastrointestinal hemorrhage, unspecified cp - Hypomagnesemia cp - Diabetes mellitus due to underlying condition with hyperglycemia cp Forms: - Medication Reconciliation Form cp - SBAR form cp Addendum: 05/19/2022 09:53 Co-signature as Attending Physician, Andrew Trinidad MD I agree with the assessment and c gomez plan of care. Signatures: Dispatcher [employer] [facility] Andrew Trinidad MD MD cha Attema, Lee, HOUSEKEEPING ATTENDANT-C HOUSEKEEPING ATTENDANT-[facility] Andrew Victoria PA PA Kristen Morales, RN RN ha1 Corrections: (The following items were deleted from the chart) 05/14 00:03 00:03 DR Rick lama cp 00:06 05/13 22:19 Abdomen Pelvis W Con+CT.RAD.BRZ ordered. [facility] 05/14 03:01 00:03 DR Rick lama ha1
--- NOTE | 2022-05-14 00:04 | ER ---
Nurse's Notes [facility] Name: Thom Wright Age: 61 yrs Sex: Male : 1960 Arrival Date: 05/13/2022 Time: 20:30 Bed 18 Private MD: Diagnosis: GI Bleed/ Gastrointestinal hemorrhage, unspecified;Hypomagnesemia;Diabetes mellitus due to underlying condition with hyperglycemia Presentation: 05/13 21:07 Chief complaint: EMS states: 61 year old male, history of a stroke. family called ha1 because when his brief was changed blood was noticed in the stool. 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 Coronavirus screen: Vaccine status: Patient reports receiving the 2nd dose of the covid vaccine. Ebola Screen: No symptoms or risks identified at this time. Initial Sepsis Screen: Does the patient meet any 2 criteria? No. Patient's initial sepsis screen is negative. Does the patient have a suspected source of infection? No. Patient's initial sepsis screen is negative. Risk Assessment: Do you want to hurt yourself or someone else? Patient reports no desire to harm self or others. Onset of symptoms was May 13, 2022. 21:07 Method Of Arrival: EMS: [facility] 21:07 Acuity: SONIA 3 ha1 Triage Assessment: 20:30 General: Appears in no apparent distress. comfortable, Behavior is calm, cooperative. ha1 Pain: Complains of pain in generalized Pain currently is 4 out of 10 on a pain scale. Alleviated by medications. EENT: No signs and/or symptoms were reported regarding the EENT system. Neuro: Level of Consciousness is awake, alert, obeys commands, Oriented to person, place, time, situation. Neuro: Reports previous stroke that paralyzed left side of body. Cardiovascular: Heart tones S1 S2 present Patient's skin is warm and dry. Respiratory: Airway is patent Trachea midline Respiratory effort is even, unlabored, Respiratory pattern is regular, symmetrical. GI: Abdomen is flat, Bowel sounds present X 4 quads. Reports bloody stool. : No signs and/or symptoms were reported regarding the genitourinary system. Derm: Skin is pink, warm \T\ dry. Musculoskeletal: Range of motion: limited in left side of body. Historical: - Allergies: 21:13 NKDA; ha1 - Home Meds: 21:13 atorvastatin Oral [Active]; Aspirin Oral [Active]; Insulin Aspart [Active]; insulin ha1 levemir [Active]; clopidogrel Oral [Active]; losartan Oral [Active]; - PMHx: 21:15 CVA; diabetes mellitus; Hypertensive disorder; stroke ( deficit left side paralysis); ha1 IA; COPD; - Immunization history:: Adult Immunizations up to date. - Social history:: Smoking status: Patient reports the use of cigarette tobacco products, smokes one pack cigarettes per day. Screenin:20 Abuse screen: Denies threats or abuse. Denies injuries from another. Nutritional ha1 screening: No deficits noted. Tuberculosis screening: No symptoms or risk factors identified. Fall Risk IV access (20 points). Gait- Impaired (20 pts.). Total Green Fall Scale indicates Low Risk Score (25-44 pts). Fall prevention measures have been instituted. Side Rails Up X 2 Placed close to Nursing Station Frequent Obs/Assesments occuring As available Patient and Family Educated on Fall Prevention Program and strategies. Assessment: 20:30 General: see triage. ha1 21:30 Reassessment: Patient and/or family updated on plan of care and expected duration. Pain ha1 level reassessed. Patient is alert, oriented x 3, equal unlabored respirations, skin warm/dry/pink. Patient denies pain at this time. 22:30 Reassessment: Patient and/or family updated on plan of care and expected duration. Pain ha1 level reassessed. Patient is alert, oriented x 3, equal unlabored respirations, skin warm/dry/pink. denies any concerns at this moment. Low BP. notified Physician mortgage loan assistant Page Patient denies pain at this time. 23:30 Reassessment: Patient and/or family updated on plan of care and expected duration. Pain ha1 level reassessed. Patient is alert, oriented x 3, equal unlabored respirations, skin warm/dry/pink. awaiting transfer Patient denies pain at this time. 1112 00:30 Reassessment: Patient and/or family updated on plan of care and expected duration. Pain ha1 level reassessed. Patient is alert, oriented x 3, equal unlabored respirations, skin warm/dry/pink. Patient denies pain at this time. 01:30 Reassessment: Patient and/or family updated on plan of care and expected duration. Pain ha1 level reassessed. Patient is alert, oriented x 3, equal unlabored respirations, skin warm/dry/pink. awaiting transfer. 02:04 Reassessment: called to give report. receiving nurse unavailable. ha1 02:59 Reassessment: Patient and/or family updated on plan of care and expected duration. Pain ha1 level reassessed. Patient is alert, oriented x 3, equal unlabored respirations, skin warm/dry/pink. transported by [facility]. Vital Signs: 05/13 20:30 BP 128 / 76; Pulse 76; Resp 17 S; Pulse Ox 98% on R/A; ha1 21:07 BP 128 / 76; Pulse 76; Resp 17 S; Temp 98.2; Pulse Ox 98% ; Weight 86.18 kg; Height 6 ha1 ft. (182.88 cm); 21:30 BP 114 / 79; Pulse 75; Resp 18 S; Pulse Ox 96% on R/A; ha1 22:30 BP 122 / 66; Pulse 81; Resp 17 S; Pulse Ox 96% on R/A; ha1 23:30 BP 92 / 56; Pulse 73; Resp 18 S; Pulse Ox 96% on R/A; ha1 05/14 01:30 BP 112 / 79; Pulse 75; Resp 16 S; Pulse Ox 96% on R/A; ha1 02:30 BP 121 / 66; Pulse 76; Resp 17 S; Pulse Ox 96% on R/A; ha1 05/13 21:07 Body Mass Index 25.77 (86.18 kg, 182.88 cm) ha1 ED Course: 05/13 20:30 Patient arrived in ED. mw2 20:30 Arm band placed on right wrist. ha1 20:31 Andrew Victoria PA is PHCP. cp 20:31 Andrew Trinidad MD is Attending Physician. cp 21:07 Kristen Curry RN is Primary Nurse. ha1 21:13 Triage completed. ha1 21:21 Patient has correct armband on for positive identification. Fall risk band placed. ha1 Placed in gown. Bed in low position. Call light in reach. Side rails up X 1. 21:44 XRAY Chest (1 view) In Process Unspecified. EDMS 22:12 Ptt, Activated Sent. ha1 22:12 Type And Screen Sent. ha1 22:12 CBC with Diff Sent. ha1 22:12 LFT's Sent. ha1 22:12 Magnesium Sent. ha1 22:12 NT PRO-BNP Sent. ha1 22:12 PT-INR Sent. ha1 22:13 Troponin HS Sent. ha1 23:45 initiated a transfer with Saundra from [facility] Transfer Center. [facility] 23:58 connected Andrew LY with Dr. Cabrera from [facility] 05/14 00:11 CT Abd/Pelvis - Without Contrast In Process Unspecified. EDMS 01:15 administrative approval given by Saundra Russell/ sabrina has been accepted to [address] to [place] [place] 10 B 1028/Dr. Cabrera accepted the patient in transfer/report to be called to [phone]. 02:57 No provider procedures requiring assistance completed. Patient transferred, IV remains ha1 in place. Administered Medications: 05/13 23:15 Drug: ProTONIX (pantoprazole) 8 mg/hr Route: IV; Rate: 25 ml/hr; Site: left antecubital;ha1 23:15 Drug: ProTONIX (pantoprazole) 40 mg Route: IVP; Site: left antecubital; ha1 23:45 Follow up: Response: No adverse reaction ha1 23:50 Drug: NS 0.9% 500 ml Route: IV; Rate: bolus; Site: left antecubital; ha1 05/14 01:30 Drug: Magnesium Sulfate 1 grams {Note: EJ.} Route: IVPB; Infused Over: 1 hrs; Site: [facility] Other; 03:00 Follow up: Response: No adverse reaction; IV Intake: 100ml ha1 03:01 Not Given (need transferr): Zosyn (piperacillin-tazobactam) 3.375 grams IVPB once over ha1 60 mins; (mix in NS 100 mL) Medication: 02:59 VIS not applicable for this client. ha1 Intake: 03:00 IV: 100ml; Total: 100ml. ha1 Outcome: 00:03 ER care complete, transfer ordered by MD. lama 02:57 Transferred by ground EMS to [facility]. ha1 02:57 Condition: stable 02:57 Discharge instructions given to patient, Instructed on the need for transfer, Demonstrated understanding of instructions. 03:01 Patient left the ED. ha1 Signatures: Dispatcher [employer] EDMS Andrew Victoria PA PA cp [place], [facility] 2 Kristen Curry RN RN ha1 Corrections: (The following items were deleted from the chart) 04:11 05/13 22:30 Reassessment: Patient and/or family updated on plan of care and expected ha1 duration. Pain level reassessed. Patient is alert, oriented x 3, equal unlabored respirations, skin warm/dry/pink. denies any concerns at this moment Patient denies pain at this time. ha1
--- NOTE | 2022-05-14 00:20 | RAD REPORT ---
EXAM DESCRIPTION: CTAbdomen Pelvis Wo Contrast - 05/14/2022 12:09 am CLINICAL HISTORY: gi bleed COMPARISON: Abdomen Pelvis W Contrast dated 04/03/2022; Abdomen Pelvis W Contrast dated 03/02/2022 ; Abdomen Pelvis W Contrast dated 02/26/2022; Abdomen Pelvis W Contrast dated 02/19/2022 TECHNIQUE: CT of the abdomen and pelvis was performed without contrast. All CT scans are performed using dose optimization technique as appropriate and may include automated exposure control or mA/KV adjustment according to patient size. FINDINGS: Lower chest: Coronary artery stents. The lung bases are clear. Liver: No acute abnormality or suspicious lesions. Biliary: No biliary ductal dilatation. Stomach: No significant focal abnormality. Duodenum: No significant focal abnormality. Pancreas: No significant abnormality. Spleen: No significant abnormality. Adrenal: No suspicious lesions. Kidney/ureter: Mild right-sided hydronephrosis. No ureteral calculi. No renal calculi. Bilateral filippo l vascular calcifications. Too small to characterize and/or benign appearing renal lesions are noted. Retroperitoneum: No retroperitoneal adenopathy. Vascular: No aneurysm. Atherosclerosis. Bowel: Normal appendix. Mild colonic stool.. Peritoneum: No ascites or free air. Bladder: Eccentric bladder wall thickening most notable along the left and posterior aspect. This may be related to infection, inflammation, or chronic bladder outlet obstruction. Reproductive: Mild prostatomegaly. Bones: No acute fracture. Degenerative changes at L5-S1. Other: n/a IMPRESSION: No acute intra-abdominal or pelvic finding. No specific CT findings to explain gastroint estinal bleeding. Incidental findings as noted above.
[2022-05-14] MEDS ORDERED: MAGNESIUM SULFATE 1 gm IVPB 1 GM/100 ML BAG IV ONE (00:42)
[2022-05-14 01:13] LABS: SARS-CoV-2 Antigen Rapid Res Negative (Negative)
[2022-05-14 04:35] VITALS: TEMP 98.2
[2022-05-14 04:36] VITALS: BP 114/79; O2SAT 96
== END 2022-05-14 03:01 | disposition short-term general hospital (02) ==
LOC: ER 20:28
DX: K92.2 Gastrointestinal hemorrhage, unspecified (principal); E83.42 Hypomagnesemia; E11.65 Type 2 diabetes mellitus with hyperglycemia; F17.210 Nicotine dependence, cigarettes, uncomplicated; I10 Essential (primary) hypertension; I25.2 Old myocardial infarction; Z20.822 Contact with and (suspected) exposure to COVID-19
CPT/HCPCS: 85025; 80048; 36415; 86900; 83735; 86850; 85610; 86901; 80076; 85730; 84484; 84145; 83880; 74176; 71045; 99285; 87811; C9113; J3475; J7050 ×2

== ENCOUNTER 2022-09-23 11:23 | Emergency (ER) | payer MEDICARE ==
--- OUTSIDE RECORDS SUMMARY | 2022-09-23 11:30 | XMS REPORT | Continuity of Care Document ---
:1960 Author Organization [facility] t Address [address] [facility] [address] [place] [address] Care Team Providers Name Role Phone Pcp, Patient Does Not Have A Primary Care Physician [phone] Britni Marvin DO Attending Clinician Doctor Unassigned, [place] Attending Clinician Unavailable Dora Murphy RN Attending Clinician Unavailable RANDY SY Attending Clinician Unavailable Antonia GARCIA, Randy Fisher Attending Clinician Joey Baker DO Attending Clinician Gregoria Cabrera MD Attending Clinician Jorge L GARCIA, Fritz Attending Clinician Chava Hurd MD Attending Clinician Artie Carrasco MD, Ayo Alvarado Attending Clinician [phone] FRITZ DALEY Attending Clinician Unavailable Ish GARCIA, Dm Attending Clinician RANDY SY Admitting Clinician Unavailable Randy Sy MD Admitting Clinician Artie Carrasco MD, Ayo Alvarado Admitting Clinician [phone] FRITZ DALEY Admitting Clinician Unavailable Payers Payer Name Policy Type Policy Number Effective Date Expiration Date [facility]47EU 2022 (MEDICARE 00:00:00 REPLACEMENT HMO) Problems Condition Condition Condition Status Onset Resolution Last Treating Co mments Source Name Details Category Date Date Treatment Clinician Date GIB GIB Disease Active 2021-07 Univers (gastroint (gastroint 08-29 it y of estinal estinal 00:00: [place] bleeding) bleeding) 00 Medi reyna Branch Lung mass Lung mass Disease Active 2021-07 Uni vers 08-29 ity of 00:00: [place] 00 Medical Branch S/P S/P Disease Recurre 2021-07 Overview: [facility] rs primary primary nce 15 Formattin ity o f angioplast angioplast 00:00: g of this [place] y with y with 00 note Medical coronary coronary might be Bran ch stent stent different from the original. CAD w/p PCI of RCA and ?LAD 03/2022, with bare metal stent [facility] Disease Recurre 2021-07 Un alexi (current) (current) nce 07-17 ity of use of use of 00:00: [place] antithromb antithromb 00 Me dical otics/anti otics/anti Br anch platelets platelets History of History of Disease Recurre 2021-07 Overvie w: Univers upper upper nce -15 Formattin ity of gastrointe gastrointe 00:00: g of this [place] stinal stinal 00 note Medical bleeding bleeding might be Bran ch different from the original. Hx of PUD w/ ulceratio n s/p cauteriza tion and 7U of blood (03/2022) Type 2 Type 2 Disease Active 2021-07 Overview: [facility] diabetes diabetes 07-17 Formattin ity of mellitus mellitus 00:00: g of this [place] with with 00 note is Medical hyperglyce hyperglyce different Branch vidya, with vidya, with from the long-term long-term original. current current HGB A1C use of use of (%) Date insulin insulin Value 2 10.1 (H) GI bleed GI bleed Disease Active 2021-07 Unive rs 1-12 ity of 00:00: [place] 00 Medical Branch Melena Melena Disease Active 2021-07 Univers 1-12 ity of 00:00: [place] 00 Medical Branch Chronic Chronic Disease Active 2021-07 Univers diastolic diastolic 0-12 ity of heart heart 00:00: [place] failure failure 00 Medical Branch Hypertensi Hypertensi Disease Active 2021-07 U nivers ve heart ve heart 0-12 ity of and and 00:00: [place] chronic chronic 00 Medical kidney kidney Branch disease disease with heart with heart failure failure and stage and stage 1 through 1 through stage 4 stage 4 chronic chronic kidney kidney disease, disease, or or unspecifie unspecifie d chronic d chronic kidney kidney disease disease Hypothyroi Hypothyroi Disease Active 2021-07 U nivers dism due dism due 0-12 ity of to defect to defect 00:00[place] in thyroid in thyroid 00 Me dical hormone hormone Branch synthesis synthesis Primary Primary Disease Active 2021-07 Univers hyperchole hyperchole 0-12 it y of sterolemia sterolemia 00:00[place] 00 [place] Arterioscl Arterioscl Disease Active U nivers erosis of erosis of 923 ity of coronary coronary 00:00: [place] artery artery 00 Medical Branch Allergies, Adverse Reactions, Alerts Allergy Allergy Status Severity Reaction(s) Onset Inactive Treating Comm ents Source Name Type Date Date Clinician NO KNOWN Drug Active Univers ALLERGIE Class ity of S [place] [facility] Social History Social Habit Start Date Stop Date Quantity Comments Source History of tobacco Passive smoker Un iversity of use [place] [facility] History SDOH Social Unive rsity of Connections [facility] Med ical Together Branch History SDOH Social Unive rsity of Connections [facility] Medical Branch History SDOH Social Unive rsity of Connections [place] [facility] Membership Branch History SDOH Social Unive rsity of Connections [place] [facility] Meetings Branch History SDOH Social Unive rsity of Connections [facility] Medical [place] Exposure to 2022-06-18 2022-06-28 Not sure University of SARS-CoV-2 (event) 00:00:00 03:00:00 [place] [facility] History SDOH Food 2022-06-28 2022-06-28 1 Univers ity of Worry 00:00:00 00:00:00 [place] [facility] History SDOH Food 2022-06-28 2022-06-28 1 Univers ity of Scarcity 00:00:00 00:00:00 [place] [facility] History SDOH 2022-06-28 2022-06-28 2 University o f Transport Med 00:00:00 00:00:00 [place] Medic al Branch History SDOH 2022-06-28 2022-06-28 2 University o f Transport Non-Med 00:00:00 00:00:00 [facility] edical Branch Tobacco use and 2022-06-28 2022-06-28 User of Universit y of exposure 00:00:00 00:00:00 smokeless [place] Medical tobacco Branch History SDAR 2022-06-28 2022-06-28 1 University o f Alcohol Frequency 00:00:00 00:00:00 [place] M edical Branch History SDAR 2022-06-28 2022-06-28 0 University o f Alcohol Std Drinks 00:00:00 00:00:00 [place] [facility] History SDOH 2022-06-28 2022-06-28 1 University o f Alcohol Binge 00:00:00 00:00:00 [place] Medic al Branch History [facility] Social 2022-06-28 2022-06-28 5 Unive rsity of Connections Phone 00:00:00 00:00:00 [facility] edical Branch History SDAR 2022-06-28 2022-06-28 0 University o f Physical Activity 00:00:00 00:00:00 [facility] edical DPW Branch History [facility] 2022-06-28 2022-06-28 0 University o f Physical Activity 00:00:00 00:00:00 [facility] edical MPS Branch History [facility] 2022-06-28 2022-06-28 4 University o f Financial 00:00:00 00:00:00 [facility] Alcohol intake 2022-06-28 2022-06-28 Ex-drinker University of 00:00:00 00:00:00 (finding) [facility] Alcohol Comment 2022-05-14 2022-05-14 Previous heavy Unive rsity of 00:00:00 00:00:00 alcohol use [facility] Sex Ass[birth year] At [birth year] Universit y of 00:00:00 00:00:00 [facility] Smoking Status Start Date Stop Date Source Tobacco smoking consumption Univ ersity of [facility] unknown Branch Smokes tobacco daily 2022-06-28 00:00:00 Univers ity of [place] Medical [place] Medications Ordered Filled Start Stop Current Ordering Indication Dosage Frequency Signature Comments Components Source Medication Medication Date Date Medication? Clinician (SIG) Name Name furosemide Yes [id number] 40mg Take 1 U nivers 40 mg 1-24 tablet by ity of tablet 00:00: mouth in [place] 00 the Medical morning. Branch metoprolol 2021-07 Yes 50mg Take 50 mg U nivers tartrate 50 2-28 by mouth ity of mg tablet 15:49: in the [place] 30 morning Medical and 50 mg Branch in the evening. traZODone 2021-07 Yes 50mg Take 50 mg Un alexi 50 mg 2-28 by mouth ity of tablet 15:49: at [place] 30 bedtime. Medical Branch metoprolol 2021-07 Yes 50mg Take 50 mg U nivers tartrate 50 2-28 by mouth ity of mg tablet 15:49: in the [place] 30 morning Medical and 50 mg Branch in the evening. traZODone 2021-07 Yes 50mg Take 50 mg Un alexi 50 mg 2-28 by mouth ity of tablet 15:49: at [place] [address] bedtime. Medical Branch metoprolol 2021-07 Yes 50mg Take 50 mg U nivers tartrate 50 2-28 by mouth ity of mg tablet 15:49: in the [place] 30 morning Medical and 50 mg Branch in the evening. traZODone 2021-07 Yes 50mg Take 50 mg Un alexi 50 mg 2-28 by mouth ity of tablet 15:49: at [place] [address] bedtime. Medical Branch metoprolol 2021-07 Yes 50mg Take 50 mg U nivers tartrate 50 2-28 by mouth ity of mg tablet 15:49: in the [place] 30 morning Medical and 50 mg Branch in the evening. traZODone 2021-07 Yes 50mg Take 50 mg Un alexi 50 mg 2-28 by mouth ity of tablet 15:49: at [place] [address] bedtime. Medical Branch traZODone 2021-07 Yes 50mg 50 mg, Univer s (DESYREL) 2-28 Oral, QHS, ity of tablet 50 03:00: First dose [place] mg 00 on [facility] 06/28/22 Branch at 2100, Until Discontinu ed, Routine atorvastati 2021-07 Yes 40mg 40 mg, Univ ers n (LIPITOR) 2-28 Oral, QHS, it y of tablet 40 03:00: First dose [place] mg 00 on [facility] 06/28/22 Branch at 2100, Until Discontinu ed, Routine insulin 2021-07 Yes 15U 15 Units, Unive rs glargine 08-30 Subcutaneo ity o f (LANTUS 02:00: us, BID, [place] U-100) 00 First dose Medical injection on [facility] 15 Units 06/28/22 at 2000, Until Discontinu ed, Routine losartan 2021-07 Yes 50mg 50 mg, Univers (COZAAR) 08-29 Oral, ity of tablet 50 22:00: DAILY, [place] mg 00 First dose Medical on [facility] 06/28/22 at 1600, Until Discontinu ed, Routine Sliding 2021-07 Yes Subcutaneo Univ ers Scale 08-29 us, TID ity of Insulin - 18:00: MEALS+HS, [place] Lispro 00 First dose Medical (HumaLOG) + on [facility] Fsbg 06/28/22 Testing at 1200, Until Discontinu ed, Routine dextrose 2021-07 Yes 250mL 250 mL, IV Un alexi 10% (D10W) 08-29 Infusion, ity of bolus 15:07: PRN - SEE [place] infusion 22 INSTRUCTIO Medic al 250 mL NS, Branch Administer over 60 Minutes, Other, If blood glucose is < or = 70 mg/dL and patient is unable to swallow or has mental status changes, Starting on 06/28/22 at 0907
If blood glucose is < or = 70 mg/dL and patient is unable to swallow or has mental status changes (Give glucagon order if patient needs fluid restrictio n): IF IV access available: Dextrose 10%. 1. 125 mL (? bag) of D10W IV infusion - equivalent to 12.5 g dextrose 2. Blood glucose - draw blood glucose 15 minutes after D10W Administra tion. 3. If blood glucose is < 80 mg/dL, repeat.
glucagon 2021-07 Yes 1mg 1 mg, Univers (GLUCAGEN 08-29 Intramuscu ity of DIAGNOSTIC 15:07: [place], PRN, [place] KIT) 18 Starting Medical injection 1 on [facility] mg 06/28/22 at 0907, Until Discontinu ed, ANAYA, Blood Glucose < or = 70 mg/dL and patient is unable to swallow or has mental changes. clopidogreL 2021-07 Yes 75mg 75 mg, Univ ers (PLAVIX) 75 08-29 Oral, ity of mg tablet 15:00: DAILY, [place] 75 mg 00 First dose Medical on [facility] 06/28/22 at 0900, Until Discontinu ed, Routine aspirin EC 2021-07 No 81mg 81 mg, Univ ers tablet 81 08-29 Oral, ity of mg 15:00: 20:43 DAILY, [place] 00 :30 First dose Medical on [facility] 06/28/22 at 0900, Until Discontinu ed pantoprazol 2021-07 Yes 40mg 40 mg, Univ ers e 08-29 Slow IV ity of (PROTONIX) 14:00: Push, [place] injection 00 Q12H, Medical 40 mg First dose Branch on [facility] 06/28/22 at 0800, Until Discontinu ed gabapentin 2021-07 Yes 200mg 200 mg, Uni vers (NEURONTIN) 08-29 Oral, TID, it y of capsule 200 14:00: First dose [place] mg 00 on [facility] 06/28/22 Branch at 0800, Until Discontinu ed, Routine acetaminoph 2021-07 Yes 650mg 650 mg, Un alexi en 08-29 Oral, ity of (TYLENOL) 10:01: Q6HPRN, [place] tablet 650 56 Starting Medic al mg on [facility] 06/28/22 at 0401, Until Discontinu ed, Routine, Pain (scale 1-3) insulin 2021-07 Yes 17U 17 Units, Unive rs glargine 1-16 Subcutaneo ity o f (LANTUS 03:00: us, [facility], [place] U-100) 00 First dose Medical injection on [facility] 17 Units 05/17/22 at 2100, Until Discontinu ed, Routine insulin 2021-07 Yes 17U 17 Units, Unive rs glargine 1-16 Subcutaneo ity o f (LANTUS 03:00: us, [facility], [place] U-100) 00 First dose Medical injection on [facility] 17 Units 05/17/22 at 2100, Until Discontinu ed, Routine insulin 2021-07 Yes [id number] 5U inject 5 Un alexi aspart 1-16 Units ity of U-100 00:00: under the [place] (NOVOLOG 00 skin in Medical FLEXPEN the Branch U-100 morning INSULIN) and 5 100 unit/mL Units at (3 mL) noon and 5 injection Units in the evening. Insulin 2021-07 Yes [id number] 17U inject 17 U nivers Detemir 100 1-16 Units ity of unit/mL (3 00:00: under the [place] mL) 00 skin in Medical injection the Branch morning and 17 Units in the evening. insulin 2021-07 Yes [id number] 5U inject 5 Un alexi aspart 1-16 Units ity of U-100 00:00: under the [place] (NOVOLOG 00 skin in Medical FLEXPEN the Branch U-100 morning INSULIN) and 5 100 unit/mL Units at (3 mL) noon and 5 injection Units in the evening. Insulin 2021-07 Yes [id number] 17U inject 17 U nivers Detemir 100 1-16 Units ity of unit/mL (3 00:00: under the [place] mL) 00 skin in Medical injection the Branch morning and 17 Units in the evening. insulin 2021-07 Yes [id number] 5U inject 5 Un alexi aspart 1-16 Units ity of U-100 00:00: under the [place] (NOVOLOG 00 skin in Medical FLEXPEN the Branch U-100 morning INSULIN) and 5 100 unit/mL Units at (3 mL) noon and 5 injection Units in the evening. Insulin 2021-07 Yes [id number] 17U inject 17 U nivers Detemir 100 1-16 Units ity of unit/mL (3 00:00: under the [place] mL) 00 skin in Medical injection the Branch morning and 17 Units in the evening. insulin 2021-07 Yes [id number] 5U inject 5 Un alexi aspart 1-16 Units ity of U-100 00:00: under the [place] (NOVOLOG 00 skin in Medical FLEXPEN the Branch U-100 morning INSULIN) and 5 100 unit/mL Units at (3 mL) noon and 5 injection Units in the evening. Insulin 2021-07 Yes [id number] 17U inject 17 U nivers Detemir 100 1-16 Units ity of unit/mL (3 00:00: under the [place] mL) 00 skin in Medical injection the Branch morning and 17 Units in the evening. insulin 2021-07 Yes [id number] 5U inject 5 Un alexi aspart 1-16 Units ity of U-100 00:00: under the [place] (NOVOLOG 00 skin in Medical FLEXPEN the Branch U-100 morning INSULIN) and 5 100 unit/mL Units at (3 mL) noon and 5 injection Units in the evening. Insulin 2021-07 Yes [id number] 17U inject 17 U nivers Detemir 100 1-16 Units ity of unit/mL (3 00:00: under the [place] mL) 00 skin in Medical injection the Branch morning and 17 Units in the evening. metoprolol 2021-07 Yes 50mg Take 50 mg U nivers tartrate 50 1-15 by mouth ity of mg tablet 18:59: in the [place] [address] morning Medical and 50 mg Branch in the evening. traZODone 2021-07 Yes 50mg Take 50 mg Un alexi 50 mg 1-15 by mouth ity of tablet 18:59: at [place] [address] bedtime. Medical Branch metoprolol 2021-07 Yes 50mg Take 50 mg U nivers tartrate 50 1-15 by mouth ity of mg tablet 18:59: in the [place] [address] morning Medical and 50 mg Branch in the evening. traZODone 2021-07 Yes 50mg Take 50 mg Un alexi 50 mg 1-15 by mouth ity of tablet 18:59: at [place] [address] bedtime. Medical Branch clopidogreL 2021-07 Yes 75mg 75 mg, Univ ers (PLAVIX) 75 1-15 Oral, ity of mg tablet 18:00: DAILY, [place] 75 mg 00 First dose Medical on [facility] 05/17/22 at 1200, Until Discontinu ed, Routine aspirin 2021-07 Yes 81mg 81 mg, Univers chewable 1-15 Oral, ity of tablet 81 18:00: DAILY, [place] mg 00 First dose Medical on [facility] 05/17/22 at 1200, Until Discontinu ed, Routine furosemide 2021-07 Yes 40mg 40 mg, Unive rs (LASIX) 1-15 Oral, ity of tablet 40 17:30: DAILY, [place] mg 00 First dose Medical on [facility] 05/17/22 at 1130, Until Discontinu ed, Routine amLODIPine 2021-07 Yes 5mg 5 mg, Univer s (NORVASC) 1-15 Oral, ity of tablet 5 mg 15:00: DAILY, [place] 00 First dose Medical on [facility] 05/17/22 at 0900, Until Discontinu ed, Routine pantoprazol 2021-07 Yes 40mg 40 mg, Univ ers e -15 Oral, ity of (PROTONIX) 15:00: DAILY, [place] EC tablet 00 First dose Medi reyna 40 mg on [facility] 05/17/22 at 0900, Until Discontinu ed, Routine amLODIPine 2021-07 Yes 5mg 5 mg, Univer s (NORVASC) -15 Oral, ity of tablet 5 mg 15:00: DAILY, [place] 00 First dose Medical on [facility] 05/17/22 at 0900, Until Discontinu ed, Routine pantoprazol 2021-07 Yes 40mg 40 mg, Univ ers e 15 Oral, ity of (PROTONIX) 15:00: DAILY, [place] EC tablet 00 First dose Medi reyna 40 mg on [facility] 05/17/22 at 0900, Until Discontinu ed, Routine potassium 2021-07 No 10meq 10 mEq, IV Univers chloride in 07-17 Piggyback, i ty of water 10 14:00: 22:30 Q2H, 4 [place] mEq/100 mL 00 :00 doses, Medical RTU 10 mEq First dose Bra nch on [facility] 05/17/22 at 0800, Last dose on 05/17/22 at 1400, Administer over 60 Minutes, 100 mL KCL 2021-07 40meq 40 mEq, Univers (KLOR-CON 07-17 Oral, ity of M20) tablet 13:45: 14:58 ONCE, 1 [place] 40 mEq 00 :00 dose, On Medical [facility] 05/17/22 at 0745, Routine furosemide 2021-07- No 40mg Take 40 mg Univers 40 mg 07-17 by mouth ity of tablet 11:19: 00:00 every [place] 35 :00 morning Medical and Branch evening. furosemide 2021-07 Yes [id number] 40mg Take 1 U nivers 40 mg 1-15 tablet by ity of tablet 00:00: mouth in [place] 00 the Medical morning. Branch furosemide 2021-07 Yes [id number] 40mg Take 1 U nivers 40 mg 1-15 tablet by ity of tablet 00:00: mouth in [place] 00 the Medical morning. Branch furosemide 2021-07 Yes [id number] 40mg Take 1 U nivers 40 mg 1-15 tablet by ity of tablet 00:00: mouth in [place] 00 the Medical morning. Branch furosemide 2021-07 Yes [id number] 40mg Take 1 U nivers 40 mg 1-15 tablet by ity of tablet 00:00: mouth in [place] 00 the Medical morning. Branch furosemide 2021-07 Yes [id number] 40mg Take 1 U nivers 40 mg 1-15 tablet by ity of tablet 00:00: mouth in [place] 00 the Medical morning. Branch furosemide 2021-07- No [id number] 40mg Take 1 Univers 40 mg 1-15 -24 tablet by ity of tablet 00:00: 00:00 mouth in [place] 00 :00 the Medical morning. Branch Insulin 2021-07- No [id number] 17U inject 17 Univers Detemir 100 1-15 12-16 Units ity of unit/mL (3 00:00: 05:59 under the [place] mL) 00 :00 skin in Medical injection the Branch morning and 17 Units in the evening. Do all this for 30 days. pantoprazol 2021-07- No [id number] 40mg Take 1 Univers e 40 mg EC 1-15 12-16 tablet by ity of tablet 00:00: 05:59 mouth in [place] 00 :00 the Medical morning Branch and 1 tablet in the evening. Do all this for 30 days. pantoprazol 2021-07- No [id number] 40mg Take 1 Univers e 40 mg EC 1-15 12-16 tablet by ity of tablet 00:00: 05:59 mouth in [place] 00 :00 the Medical morning Branch and 1 tablet in the evening. Do all this for 30 days. metoprolol 2021-07 Yes 50mg Take 50 mg U nivers tartrate 50 1-14 by mouth ity of mg tablet 21:59: in the [place] [address] morning Medical and 50 mg Branch in the evening. traZODone 2021-07 Yes 50mg Take 50 mg Un alexi 50 mg 1-14 by mouth ity of tablet 21:59: at [place] [address] bedtime. Medical Branch furosemide 2021-07 Yes 40mg Take 40 mg U nivers 40 mg 1-14 by mouth ity of tablet 21:59: every [place] 40 morning Medical and Branch evening. levothyroxi 2021-07- No 50ug Take 50 Un alexi ne 50 mcg 1-14 11-12 mcg by ity of tablet 21:59: 00:00 mouth. [place] 40 :00 [facility] Branch levothyroxi 2021-07- No 50ug Take 50 Un alexi ne 50 mcg 1-14 11-12 mcg by ity of tablet 21:59: 00:00 mouth. [place] 40 :00 [facility] Branch magnesium 2021-07- No 400mg 400 mg, Uni vers oxide 1-14 11-14 Oral, ity of (MAG-OX 14:00: 14:15 ONCE, 1 [place] 400) tablet 00 :00 dose, On Medi reyna 400 mg Mon Branch 05/16/22 at 0800, Routine HYDROcodone 2021-07 Yes 1{tbl} 1 tablet, Univers -acetaminop 1-14 Oral, ity of hen (NORCO 09:13: Q6HPRN, [place] 5) 5-325 mg 03 Starting Medi reyna tablet 1 on [facility] Branch tablet 05/16/22 at 0313, Until Discontinu ed, Routine, Pain (scale 7-10) HYDROcodone 2021-07 Yes 1{tbl} 1 tablet, Univers -acetaminop 1-14 Oral, ity of hen (NORCO 09:13: Q6HPRN, [place] 5) 5-325 mg 03 Starting Medi reyna tablet 1 on [facility] Branch tablet 05/16/22 at 0313, Until Discontinu ed, Routine, Pain (scale 7-10) traZODone 2021-07 Yes 50mg 50 mg, Univer s (DESYREL) 1-14 Oral, QHS, ity of tablet 50 03:00: [place] dose [place] mg [facility] 05[facility]22 Branch at 2100, Until Discontinu ed, Routine traZODone 2021-07 Yes 50mg 50 mg, Univer s (DESYREL) 1-14 Oral, QHS, ity of tablet 50 03:00: First dose [place] mg [facility] on [facility] 05/15/22 Branch at 2100, Until Discontinu ed, Routine bisacodyL 2021-07- No 10mg 10 mg, Unive rs (DULCOLAX) 07-15 Oral, ity of tablet 10 22:30: 23:04 PRE-PROCED [place] mg 00 :00 URE ONCE, Medical 1 dose, Branch Starting on 05/15/22 at 1630, Until Discontinu ed, Routine, Bowel Prep, Colonoscop y bisacodyL 2021-07- No 10mg 10 mg, Unive rs (DULCOLAX) 07-15 Oral, ity of tablet 10 19:00: 21:39 PRE-PROCED [place] mg 00 :00 URE ONCE, Medical 1 dose, Branch Starting on 05/15/22 at 1300, Until Discontinu ed, Routine, Bowel Prep, Colonoscop y ondansetron 2021-07 Yes 4mg 4 mg, Slow Univers (ZOFRAN 1-13 IV Push, ity of (PF)) 18:37: Q6HPRN, [place] injection 4 44 Starting Medi reyna mg on [place] 05/15/22 at 1237, Until Discontinu ed, Routine, Nausea and Vomiting (N/V) ondansetron 2021-07 Yes 4mg 4 mg, Slow Univers (ZOFRAN 1-13 IV Push, ity of (PF)) 18:37: Q6HPRN, [place] injection 4 44 Starting Medi reyna mg on [place] 05/15/22 at 1237, Until Discontinu ed, Routine, Nausea and Vomiting (N/V) peg-electro 2021-07- No 4000mL 4,000 mL, Univers lyte soln 07-1515 Oral, PRN ity of (GOLYTELY) 18:37: 04:11 - SEE [place] [id number] 44 :51 INSTRUCTIO [place] .74 -5.86 NS, Branch gram Starting solution on [place] 4,000 mL 05/15/22 at 1237, Until 05/16/22 at 2211, Routine, Bowel Prep, colonoscop y sulfur 2021-07- No [id number] 5mL 5 mL, Unive rs hexafluorid 07-15 Intravenou i ty of e microsphr 18:15: 16:16 s, ONCE, 1 [place] (LUMASON) 00 :00 dose, On Medica l injection 5 [place] Branch mL 05/15/22 at 1215, Routine
produce service team member approving Restricted medication : JULIAN TRAE ENRIQUEZ metoprolol 2021-07 Yes 25mg 25 mg, Unive rs tartrate 1-13 Oral, BID, ity o f (LOPRESSOR) 14:00: First dose [place] tablet 25 00 (after Medical mg last Branch modificati on) on [place] 05/15/22 at 0800, Until Discontinu ed, Routine metoprolol 2021-07 Yes 25mg 25 mg, Unive rs tartrate 1-13 Oral, BID, ity o f (LOPRESSOR) 14:00: First dose [place] tablet 25 00 (after Medical mg last Branch modificati on) on [place] 05/15/22 at 0800, Until Discontinu ed, Routine atorvastati 2021-07 Yes 40mg 40 mg, Univ ers n (LIPITOR) 1-13 Oral, QHS, it y of tablet 40 03:00: First dose [place] mg 00 on [facility] 05/14/22 Branch at 2100, Until Discontinu ed, Routine atorvastati 2021-07 Yes 40mg 40 mg, Univ ers n (LIPITOR) 1-13 Oral, QHS, it y of tablet 40 03:00: First dose [place] mg 00 on [facility] 05/14/22 Branch at 2100, Until Discontinu ed, Routine clopidogreL 2021-07- No 75mg 75 mg, Uni vers (PLAVIX) 75 07-14 Oral, ity of mg tablet 22:45: 00:36 DAILY, [place] 75 mg 00 :44 First dose Medical on [facility] 05/14/22 at 1645, Until Discontinu ed, Routine acetaminoph 2021-07 No 650mg 650 mg, U nivers en 07-14- Oral, ity of (TYLENOL) 21:30: 00:16 ONCE, 1 [place] tablet 650 00 :00 dose, On Medic al mg [facility] 05/14/22 at 1530, Routine lactated 2021-07 No 1000mL at 999 Univ ers ringers IV 07-14 11-12 mL/hr, ity of infusion 19:00: 21:17 1,000 mL, Sai as 1,000 mL 00 :15 Intravenou Medic al s, ONCE, 1 Branch dose, On 05/14/22 at 1300, STAT furosemide 2021-07- No 40mg 40 mg, Univ ers (LASIX) 07-14 Oral, ity of tablet 40 15:00: 18:15 QAM+PM, [place] mg 00 :34 First dose Medical on Sat Branch 05/14/22 at 0900, Until Discontinu ed, Routine Sliding 2021-07 Yes Subcutaneo [facility] ers Scale 1-12 us, TID ity of Insulin - 14:00: MEALS+HS, Sai as Lispro 00 First dose Medical (HumaLOG) + on Sat Branch Fsbg 05/14/22 Testing at 0800, Until Discontinu ed, Routine Sliding 2021-07 Yes [facility] ers Scale 1-12 us, TID ity of Insulin - 14:00: MEALS+HS, [place] Lispro 00 First dose Medical (HumaLOG) + on Sat Branch Fsbg 05/14/22 Testing at 0800, Until Discontinu ed, Routine metoprolol 2021-07- No 50mg 50 mg, [facility] ers tartrate 07-14 Oral, BID, ity of (LOPRESSOR) 14:00: 07:38 First dose [place] tablet 50 00 :55 on Sat Medical mg 05/14/22 Branch at 0800, Until Discontinu ed, Routine pantoprazol 2021-07- No 40mg 40 mg, Uni vers e 07-14 Slow IV ity of (PROTONIX) 14:00: 18:09 Push, [place] injection 00 :31 Q12H, Medical 40 mg First dose Branch on 05/14/22 at 0800, Until Discontinu ed acetaminoph 2021-07 Yes 650mg 650 mg, Un alexi en -12 Oral, ity of (TYLENOL) 11:42: Q6HPRN, [place] tablet 650 27 Starting Medic al mg on [facility] Branch 05/14/22 at 0542, Until Discontinu ed, Routine, Pain (scale 1-3) acetaminoph 2021-07 Yes 650mg 650 mg, Un alexi en -12 Oral, ity of (TYLENOL) 11:42: Q6HPRN, [place] tablet 650 27 Starting Medic al mg on Sat Branch 11/12/22 at 0542, Until Discontinu ed, Routine, Pain (scale 1-3) Insulin 2021-07- No 24U inject 24 Univ ers Detemir 100 07-04 11-03 Units ity of unit/mL (3 00:00: 04:59 [place] the [place] mL) 00 :00 skin in Medical injection the Branch morning and 24 Units in the evening. Insulin 2021-07- No 24U inject 24 Univ ers Detemir 100 07-04 11-15 Units ity of unit/mL (3 00:00: 00:00 [place] the [place] mL) 00 :00 skin in Medical injection the Branch morning and 24 Units in the evening. insulin 2021-07- No 5U inject 5 Unive rs aspart 0-12 10-13 Units ity of U-100 00:00: 04:59 under the [place] (NOVOLOG 00 :00 skin in Medical FLEXPEN the Branch U-100 morning INSULIN) and 5 100 unit/mL Units at (3 mL) noon and 5 injection Units in the evening. insulin 2021-07- No 5U inject 5 Unive rs aspart 0-12 10-13 Units ity of U-100 00:00: 04:59 under the [place] (NOVOLOG 00 :00 skin in Medical FLEXPEN the Branch U-100 morning INSULIN) and 5 100 unit/mL Units at (3 mL) noon and 5 injection Units in the evening. clopidogreL Yes 75mg Take 75 mg Univers 75 mg 9-13 by mouth. ity of tablet 00:00: [facility] clopidogreL 2021-0 Yes 75mg Take 75 mg Univers 75 mg 9-13 by mouth. ity of tablet 00:00: [facility] pantoprazol Yes 40mg 40 mg. Univ ers e 40 mg EC 9-13 ity of tablet 00:00: [facility] clopidogreL 2021-0 Yes 75mg Take 75 mg Univers 75 mg 9-13 by mouth. ity of tablet 00:00: [facility] clopidogreL 2021-0 Yes 75mg Take 75 mg Univers 75 mg 9-13 by mouth. ity of tablet 00:00: [facility] clopidogreL 2021-0 Yes 75mg Take 75 mg Univers 75 mg 9-13 by mouth. ity of tablet 00:00: Medical Branch clopidogreL 2022-0 Yes 75mg Take 75 mg Univers 75 mg 9-13 by mouth. ity of tablet 00:00: [place] [facility] clopidogreL 2-0 Yes 75mg Take 75 mg Univers 75 mg 9-13 by mouth. ity of tablet 00:00: [place] [facility] pantoprazol 2021-0 2- No 40mg 40 mg. Uni vers e 40 mg EC 03-1515 ity of tablet 00:00: 00:00 [place] 00 : Medical Branch aspirin 81 2-0 Yes 81mg 81 mg. Unive rs mg Cap 03-09 ity of 00:00: [place] [facility] aspirin 81 2-0 Yes 81mg 81 mg. Unive rs mg Cap 03-09 ity of 00:00: [place] [facility] aspirin 81 2-0 Yes 81mg 81 mg. Unive rs mg Cap 03-09 ity of 00:00: [place] [id number] Medical Branch aspirin 81 2-0 2- No 81mg 81 mg. Univ ers mg Cap 03-09 ity of 00:00: 00:00 [place] 00 : Medical Branch gabapentin 2022-0 Yes 200mg Take 200 Un alexi 100 mg 7-23 mg by ity of capsule 00:00: mouth. [place] [id number] Medical Branch gabapentin 2022-0 Yes 200mg Take 200 Un alexi 100 mg 7-23 mg by ity of capsule 00:00: mouth. [place] [id number] Medical Branch gabapentin 2022-0 Yes 200mg Take 200 Un alexi 100 mg 7-23 mg by ity of capsule 00:00: mouth. [place] [address] Medical Branch gabapentin 2022-0 Yes 200mg Take 200 Un alexi 100 mg 7-23 mg by ity of capsule 00:00: mouth. [place] [address] Medical Branch gabapentin 2022-0 Yes 200mg Take 200 Un alexi 100 mg 7-23 mg by ity of capsule 00:00: mouth. [place] [address] Medical Branch gabapentin 2022-0 Yes 200mg Take 200 Un alexi 100 mg 7-23 mg by ity of capsule 00:00: mouth. [place] [address] Medical Branch gabapentin 2022-0 Yes 200mg Take 200 Un alexi 100 mg 7-23 mg by ity of capsule 00:00: mouth. [place] [address] Medical Branch atorvastati 2-0 3- No 40mg Take 40 mg Univers n 40 mg 7-23 11-03 by mouth. ity of tablet 00:00: 04:59 [place] 00 :00 Medical Branch atorvastati 2022-0 2023- No 40mg Take 40 mg Univers n 40 mg 01-22 by mouth. ity of tablet 00:00: 04:59 [place] 00 :00 Medical Branch atorvastati 2022-0 2023- No 40mg Take 40 mg Univers n 40 mg 01-22 by mouth. ity of tablet 00:00: 04:59 [place] 00 :00 Medical Branch atorvastati 2022-0 2023- No 40mg Take 40 mg Univers n 40 mg 01-22 by mouth. ity of tablet 00:00: 04:59 [place] 00 :00 Medical Branch atorvastati 2022-0 2023- No 40mg Take 40 mg Univers n 40 mg 01-22 by mouth. ity of tablet 00:00: 04:59 [place] 00 :00 Medical Branch atorvastati 2022-0 2023- No 40mg Take 40 mg Univers n 40 mg 01-22 by mouth. ity of tablet 00:00: 04:59 [place] 00 :00 Medical Branch atorvastati 2022-0 2023- No 40mg Take 40 mg Univers n 40 mg 01-22 by mouth. ity of tablet 00:00: 04:59 [place] 00 :00 Medical Branch losartan 50 2022-0 2023- No 50mg Take 50 mg Univers mg tablet 01-22 by mouth. ity of 00:00: 04:59 [place] 00 :00 Medical Branch losartan 50 2022-0 2023- No 50mg Take 50 mg Univers mg tablet 01-22 by mouth. ity of 00:00: 04:59 [place] 00 :00 Medical Branch losartan 50 2022-0 2023- No 50mg Take 50 mg Univers mg tablet 01-22 by mouth. ity of 00:00: 04:59 [place] 00 :00 Medical Branch losartan 50 2022-0 2023- No 50mg Take 50 mg Univers mg tablet 01-22 by mouth. ity of 00:00: 04:59 [place] 00 :00 Medical Branch losartan 50 2022-0 2023- No 50mg Take 50 mg Univers mg tablet 01-22 by mouth. ity of 00:00: 04:59 [place] 00 :00 Medical Branch losartan 50 2021-0 2022- No 50mg Take 50 mg Univers mg tablet 01-22 by mouth. ity of 00:00: 04:59 [place] 00 :00 Medical Branch losartan 50 2021-0 2022- No 50mg Take 50 mg Univers mg tablet 01-22 by mouth. ity of 00:00: 04:59 [place] 00 :00 Medical Branch amLODIPine 2021-2021- No 5mg 5 mg. Unive rs 5 mg tablet 01-22 ity of 00:00: 00:00 [place] 00 :00 Medical Branch cilostazoL 2021-2021- No 1{tbl} Take 1 Un alexi 100 mg 01-22 tablet by ity of tablet 00:00: 00:00 mouth [place] 00 :00 every Medical morning Branch and evening. amLODIPine 2021-2021- No 5mg 5 mg. Unive rs 5 mg tablet 01-22 ity of 00:00: 00:00 [place] 00 :00 Medical Branch dapaglifloz 2021-2021- No Take by Un alexi in-metformi 01-22 mouth. ity o f n 10-1,000 00:00: 00:00 [place] mg TBph 00 :00 Medical Branch cilostazoL 2021-2021- No 1{tbl} Take 1 Un alexi 100 mg 01-2212 tablet by ity of tablet 00:00: 00:00 mouth [place] 00 :00 every Medical morning Branch and evening. dapaglifloz 0 2021- No Take by Un alexi in-metformi 01-22- mouth. ity o f n 10-1,000 00:00: 00:00 [place] mg TBph 00 :00 Medical Branch Vital Signs Vital Name Observation Time Observation Value Comments Source Systolic blood 2022-06-29 18:12:00 122 mm[Hg] Univer sity of pressure [facility] Diastolic blood 2022-06-29 18:12:00 58 mm[Hg] Unive rsity of pressure [facility] Heart rate 2022-06-29 18:12:00 82 /min [facility] ty [facility] [place] [facility] Body temperature 2022-06-29 18:12:00 36.61 Candy Univ ersity of [place] [facility] Respiratory rate 2022-06-29 18:12:00 16 /min Univ ersity of [place] [facility] Oxygen saturation in 2022-06-29 18:12:00 96 /min University of Arterial blood by [facility] reyna Pulse oximetry Branch Body height 2022-06-28 09:01:00 182.9 cm Universi ty of [place] [facility] Body weight 2022-06-28 09:01:00 84.324 kg Universi ty of [place] [facility] BMI 2022-06-28 09:01:00 25.21 kg/m2 Universi ty [facility] [place] [facility] Systolic blood 2022-05-17 21:59:00 162 mm[Hg] Univer sity of pressure [place] [facility] Diastolic blood 2022-05-17 21:59:00 76 mm[Hg] Unive rsity of pressure [place] [facility] Heart rate 2022-05-17 21:59:00 86 /min Universi ty of [place] [facility] Body temperature 2022-05-17 21:59:00 37.28 Candy Univ ersity of [place] [facility] Respiratory rate 2022-05-17 21:59:00 18 /min Univ ersity of [place] [facility] Oxygen saturation in 2022-05-17 21:59:00 95 /min University of Arterial blood by [facility] Pulse oximetry Branch Body weight 2022-05-14 11:02:00 86.18 kg Universi ty of [place] [facility] Systolic blood 2022-05-16 22:02:00 134 mm[Hg] Univer sity of pressure [place] [facility] Diastolic blood 2022-05-16 22:02:00 83 mm[Hg] Unive rsity of pressure [place] [facility] Respiratory rate 2022-05-16 22:02:00 19 /min Univ ersity of [place] [facility] Oxygen saturation in 2022-05-16 22:02:00 98 /min University of Arterial blood by [facility] reyna Pulse oximetry Branch Heart rate 2022-05-16 22:00:00 78 /min Universi ty of [place] [facility] Body temperature 2022-05-16 14:00:00 36.22 Candy Univ ersity of [place] [facility] Body weight 2022-05-14 11:02:00 86.18 kg [facility]i ty [facility] [place] [facility] Procedures Procedure Date / Time Performing Source Performed Clinician EXTERNAL PROVIDER RECORDS 2022-07-08 Doctor Lora royy of 06:01:00 Unassigned, No [facility] POCT GLUCOSE (AUTOMATED) 2022-06-29 Randy Sy rsity of 18:21:00 [facility] POCT GLUCOSE (AUTOMATED) 2022-06-29 [facility] of 15:34:00 [facility] CBC WITH DIFF 2022-06-29 [facility] of 11:58:00 [facility] POCT GLUCOSE (AUTOMATED) 2022-06-29 Randy Sy [facility] of 02:39:00 [facility] POCT GLUCOSE (AUTOMATED) 2022-06-28 Randy Sy rsity of 23:11:00 [facility] CBC WITH DIFF 2022-06-28 Tremayne Briones [place] of 20:43:00 [facility] POCT GLUCOSE (AUTOMATED) 2022-06-28 Randy Sy [facility] of 17:59:00 [facility] POCT GLUCOSE (AUTOMATED) 2022-06-28 Randy Sy [facility] of 15:05:00 [facility] HEPATIC FUNCTION PANEL (22195) 2022-06-28 Tremayne Briones niversity of (ALB,T.PRO,BILI 11:52:00 [facility],BU/BC,ALT,AST,ALK PHOS) [place] BASIC METABOLIC PANEL (NA, K, CL, 2022-06-28 Tiffany Briones [facility], GLUCOSE, BUN, CREATININE, CA) 11:52:00 [facility] CBC WITH DIFF 2022-06-28 Tremayne Briones [place] of 11:52:00 [facility] PROTHROMBIN TIME / INR 2022-06-28 [facility] 11:52:00 [facility] ACTIVATED PARTIAL THRMPLAS JAMESON 2022-06-28 Tremayne Briones niversity of 11:52:00 [facility] HB ABO GROUPING 2022-06-28 Tremayne Briones [place] of 11:50:00 [facility] POCT GLUCOSE (AUTOMATED) 2022-05-17 Ayo [place] sity of 23:13:00 J [facility] POCT GLUCOSE (AUTOMATED) 2022-05-17 Ayo Alva sity of 22:00:00 J [facility] POCT GLUCOSE (AUTOMATED) 2022-05-17 Ayo [place] sity of 17:38:00 J [facility] POCT GLUCOSE (AUTOMATED) 2022-05-17 [place]yo [place] sity of 13:57:00 J [facility] BASIC METABOLIC PANEL (NA, K, CL, 2022-05-17 [facility] of CO2, GLUCOSE, BUN, CREATININE, CA) 07:42:00 [facility] CBC WITHOUT DIFF 2022-05-17 [facility] of 07:42:00 [facility] BASIC METABOLIC PANEL (NA, K, CL, 2022-05-17 [facility] of CO2, GLUCOSE, BUN, CREATININE, CA) 07:42:00 [facility] CBC WITHOUT DIFF 2022-05-17 [facility] of 07:42:00 [facility] POCT GLUCOSE (AUTOMATED) 2022-05-17 [place]yo [place] sity of 01:40:00 J [facility] POCT GLUCOSE (AUTOMATED) 2022-05-17 [place] sity of 01:40:00 J [facility] POCT GLUCOSE (AUTOMATED) 2022-05-16 [place] sity of 22:12:00 J [facility] POCT GLUCOSE (AUTOMATED) 2022-05-16 [place] sity of 22:12:00 J [facility] COLONOSCOPY (ENDO) 2022-05-16 [facility] of 20:04:24 [facility] COLONOSCOPY (ENDO) 2022-05-16 [facility] of 20:04:24 [facility] EGD (ENDO) 2022-05-16 [facility] of 19:53:16 [facility] EGD (ENDO) 2022-05-16 [facility] of 19:53:16 [facility] COLONOSCOPY 2022-05-16 DengDm matthews [place] of 19:41:00 [facility] ESOPHAGOGASTRODUODENOSCOPY 2022-05-16 Dm Deng [facility] rsity of 19:41:00 [facility] COLONOSCOPY 2022-05-16 Deng, [facility] of 19:41:00 [facility] ESOPHAGOGASTRODUODENOSCOPY 2022-05-16 Dm Deng [facility] rsity of 19:41:00 [facility] POCT GLUCOSE (AUTOMATED) 2022-05-16 Chava Hurd ity of 17:29:00 [facility] POCT GLUCOSE (AUTOMATED) 2022-05-16 Chava Hurd ity of 17:29:[address] [facility] [address] ABDOMEN WO CONTRAST 2022-05-16 Phillip, Katie Universit y of 15:37:[address] [facility] [address] ABDOMEN WO CONTRAST 2022-05-16 Phillip, Katie Universit y of 15:37:03 [facility] CBC WITHOUT DIFF 2022-05-16 Lorraine, [facility] of 15:29:00 [facility] CBC WITHOUT DIFF 2022-05-16 Lorraine [facility] of 15:29:00 [facility] POCT GLUCOSE (AUTOMATED) 2022-05-16 Chava Hurd ity of 14:07:00 [facility] POCT GLUCOSE (AUTOMATED) 2022-05-16 Chava Hurd ity of 14:07:00 [facility] MAGNESIUM 2022-05-16 [facility] of 11:26:00 [facility] BASIC METABOLIC PANEL (NA, K, CL, 2022-05-16 [facility] of CO2, GLUCOSE, BUN, CREATININE, CA) 11:26:00 [facility] CBC WITHOUT DIFF 2022-05-16 Lorraine [facility] of 11:26:00 [facility] MAGNESIUM 2022-05-16 [facility] of 11:26:00 [facility] BASIC METABOLIC PANEL (NA, K, CL, 2022-05-16 [facility] of CO2, GLUCOSE, BUN, CREATININE, CA) 11:26:00 [facility] CBC WITHOUT DIFF 2022-05-16 Lorraine [facility] of 11:26:00 [facility] POCT GLUCOSE (AUTOMATED) 2022-05-15 Chava Hurd ity of 22:07:00 [facility] POCT GLUCOSE (AUTOMATED) 2022-05-15 Chava Hurd ity of 22:07:00 [facility] CBC WITHOUT DIFF 2022-05-15 Mario Petersssica [place] of 22:00:00 [facility] CBC WITHOUT DIFF 2022-05-15 Lorraine [facility] of 22:00:00 [facility] POCT GLUCOSE (AUTOMATED) 2022-05-15 Chava Hurd ity of 17:49:00 [facility] POCT GLUCOSE (AUTOMATED) 2022-05-15 Chava Hurd ity of 17:49:00 [facility] TRANSTHORACIC ECHO (TTE) COMPLETE 2022-05-15 Lorraine [facility] W/ CONTRAST 16:21:00 [facility] TRANSTHORACIC ECHO (TTE) COMPLETE 2022-05-15 Lorraine [facility] W/ CONTRAST 16:21:00 [facility] TRANSFUSE PACKED RBC 2022-05-15 Lorraine [facility] of 14:45:00 [facility] TRANSFUSE PACKED RBC 2022-05-15 [facility] of 14:45:00 [facility] PREPARE PACKED RBC 2022-05-15 [facility] of 14:38:44 [facility] PREPARE PACKED RBC 2022-05-15 [facility] of 14:38:44 [facility] XR SHOULDER 2+ VW LEFT 2022-05-15 [facility] 14:34:00 [facility] XR SHOULDER 2+ VW LEFT 2022-05-15 [place] Rajesh [facility] [place] [facility] y of 14:34:00 [facility] CBC WITHOUT DIFF 2022-05-15 Rajesh Nuñez [place] of 13:47:00 [facility] CBC WITHOUT DIFF 2022-05-15 Rajesh Nuñez [place] of 13:47:00 [facility] POCT GLUCOSE (AUTOMATED) 2022-05-15 Chava Hurd ity of 13:45:00 [facility] POCT GLUCOSE (AUTOMATED) 2022-05-15 Chava Hurd ity of 13:45:00 [facility] Branch MAGNESIUM 2022-05-15 [facility] of 10:42:00 [facility] BASIC METABOLIC PANEL (NA, K, CL, 2022-05-15 [facility] of CO2, GLUCOSE, BUN, CREATININE, CA) 10:42:00 [facility] CBC WITHOUT DIFF 2022-05-15 [place] [facility] of 10:42:00 [facility] MAGNESIUM 2022-05-15 [facility] of 10:42:00 [facility] BASIC METABOLIC PANEL (NA, K, CL, 2022-05-15 [facility] of CO2, GLUCOSE, BUN, CREATININE, CA) 10:42:00 [facility] CBC WITHOUT DIFF 2022-05-15 [place] [facility] of 10:42:00 [facility] LIPID PANEL ([id number])(TOTAL 2022-05-15 Katie Phillip [facility] sity of CHOLESTEROL, TRIGLYCERIDES, HDL) 04:26:00 [facility] CBC WITHOUT DIFF 2022-05-15 [place] [facility] of 04:26:00 [facility] LIPID PANEL ([id number])(TOTAL 2022-05-15 Kenji, Katie [facility] sity of CHOLESTEROL, TRIGLYCERIDES, HDL) 04:26:00 [facility] CBC WITHOUT DIFF 2022-05-15 [place] [facility] of 04:26:00 [facility] CBC WITHOUT DIFF 2022-05-14 [place] [facility] of 21:37:00 [facility] CBC WITHOUT DIFF 2022-05-14 [place] [facility] of 21:37:00 [facility] ABORH CONFIRMATION (LAB ONLY) 2022-05-14 Katie Phillip Un iversity of 19:21:00 [facility] ABORH CONFIRMATION (LAB ONLY) 2022-05-14 Katie Phillip Un iversity of 19:21:00 [facility] POCT GLUCOSE (AUTOMATED) 2022-05-14 Joey Baker Univers ity of 18:51:00 [facility] POCT GLUCOSE (AUTOMATED) 2022-05-14 Joey Baker Univers ity of 18:51:00 [facility] HB ABO GROUPING 2022-05-14 [facility] of 18:46:00 [facility] CBC WITHOUT DIFF 2022-05-14 [facility] of 18:46:00 [facility] HB ABO GROUPING 2022-05-14 [facility] of 18:46:00 [facility] CBC WITHOUT DIFF 2022-05-14 [facility] of 18:46:00 [facility] POCT GLUCOSE (AUTOMATED) 2022-05-14 Joey Baker Univers ity of 15:46:00 [facility] POCT GLUCOSE (AUTOMATED) 2022-05-14 Joey Baker Univers ity of 15:46:00 [facility] N-TERMINAL PRO-BNP 2022-05-14 Kenji [facility] of 12:50:00 [facility] MAGNESIUM 2022-05-14 Phillip, [facility] of 12:50:00 [facility] HEPATIC FUNCTION PANEL ([id number]) 2022-05-14 Katie Phillip niversity of (ALB,T.PRO,BILI 12:50:00 [place] [facility] T,BU/BC,ALT,AST,ALK PHOS) [place] BASIC METABOLIC PANEL (NA, K, CL, 2022-05-14 Kenji [facility] of CO2, GLUCOSE, BUN, CREATININE, CA) 12:50:00 [facility] CBC WITH DIFF 2022-05-14 Phillip, [facility] of 12:50:00 [facility] GLYCOSYLATED HEMOGLOBIN (A1C) 2022-05-14 Katie Phillip iversity of 12:50:00 [facility] PROTHROMBIN TIME / INR 2022-05-14 Kenji [facility] y of 12:50:00 [facility] N-TERMINAL PRO-BNP 2022-05-14 Kenji [facility] of 12:50:00 [facility] MAGNESIUM 2022-05-14 Kenji [facility] of 12:50:00 [facility] HEPATIC FUNCTION PANEL ([id number]) 2022-05-14 Katie Phillip U niversity of (ALB,T.PRO,BILI 12:50:00 [place] [facility] T,BU/BC,ALT,AST,ALK PHOS) [place] BASIC METABOLIC PANEL (NA, K, CL, 2022-05-14 Kenji [facility] of CO2, GLUCOSE, BUN, CREATININE, CA) 12:50:00 [facility] CBC WITH DIFF 2022-05-14 Katie Phillip University of 12:50:00 [facility] GLYCOSYLATED HEMOGLOBIN (A1C) 2022-05-14 Katie Phillip Un iversity of 12:50:00 [facility] PROTHROMBIN TIME / INR 2022-05-14 Katie Phillip Universit y of 12:50:00 [facility] HOSPITAL ADMISSION 2022-05-14 [facility] of 06:01:00 Unassigned, No [facility] Encounters Start End Encounter Admission Attending Care Care Encounter Source Date/Time Date/Time Type Type Clinicians Facility Department ID 2022-07-21 2022-07-21 Babita Marvin [facility] [[email or web address] [id number] Univers 00:00:00 00:00:00 Britni PRIMARY [id number] it [id number] [place] 390 Branch 2022-07-08 2022-07-08 Orders Doctor PAULINO [id number] Univers 00:00:00 00:00:00 Only Unassigned, EVELYN [id number] ity of [place] [facility] 4.2.7.2.686 Sai as [id number] [facility] 009 Branch 2022-06-30 2022-06-30 Transition EVELIN Murphy [id number] Univers 00:00:00 00:00:00 of Care Dora ELLISON [id number] [id number] [id number] [facility] 403 Branch 2022-06-28 2022-06-29 Outpatient U RANDY SY [facility] [[email or web address]] MARCO [id number] Univers 02:44:00 15:49:00 ity of [facility] 2022-06-28 2022-06-29 Hospital Randy Sy [id number] Univers 02:44:00 15:49:00 Encounter Sesung EVELYN [id number] ity of HOSPITAL 4.2.7.2.686 Sai as [id number] [facility] 095 Branch 2022-05-18 2022-05-18 Transition EVELIN Murphy [id number] Univers 00:00:00 00:00:00 of Nishant ELLISON 350.1.13.10 [place] 4[place]2.7.2.686 [place] [id number] [facility] 403 Branch 2022-05-14 2022-05-17 Hospital Joey Baker 1.2.840.11 [id number] [facility] 04:59:00 18:59:00 Encounter Gregoria CbareraY 350.1.13.10 ity [facility] 4.2.7.2.686 Chava Fu [id number] Medical AlvaAyo jackson [address] 2022-05-14 2022-05-17 Inpatient U [facility] [id number] Univers 04:59:00 18:59:00 [facility] ity [facility] 2022-05-16 2022-05-16 [facility] 1.2.840.114 [id number] Univers 15:07:00 16:02:00 Dm HOLT 350.1.13.10 it y of SCIENCES 4.2.7.2.686 Sai as BLDG [id number] [facility] [address] 2022-04-27 2022-04-27 Outpatient DMG DMG [id number] [facility]oted 00:00:00 00:00:00 [id number] [facility] l [facility] 2022-04-27 2022-04-27 Outpatient DMG DMG [id number] Devoted 00:00:00 00:00:00 [id number] Medica l Group 2022-04-27 2022-04-27 Outpatient DMG DMG [id number]- 202 Devoted 00:00:00 00:00:00 [id number] Medica l Group 2022-04-27 2022-04-27 Outpatient DMG DMG [id number]- 202 Devoted 00:00:00 00:00:00 [id number] Medica l Group 2022-04-27 2022-04-27 Outpatient DMG DMG [id number]- 202 Devoted 00:00:00 00:00:00 [id number] Medica l Group 2022-02-24 2022-02-24 Outpatient DMG DMG [id number]- 202 Devoted 00:00:00 00:00:00 [id number] Medica l Group Results Test Description Test Time Test Comments Results Result Comments Source POCT GLUCOSE (AUTOMATED) 2022-06-29 18:22:02 Test Item Value Reference Range Interpretation Comme nts POCT GLU (test code = 3254380076) 248 mg/dL 70-110 H Lab Interpretation (test code = 88488-9) Abnormal [facility] GLUCOSE (AUTOMATED)2022-06-29 15:35:16 Test Item Value Reference Range Interpretation Comments POCT GLU (test code = 5082044998) 167 mg/dL 70-110 H Lab Interpretation (test code = Abnormal 45601-9) [facility] GLUCOSE (AUTOMATED)2022-06-29 02:41:00 Test Item Value Reference Range Interpretation Comments POCT GLU (test code = 9959625626) 153 mg/dL 70-110 H Lab Interpretation (test code = Abnormal 26358-8) [facility] GLUCOSE (AUTOMATED)2022-06-28 23:12:05 Test Item Value Reference Range Interpretation Comments POCT GLU (test code = 4247096599) 158 mg/dL 70-110 H Lab Interpretation (test code = Abnormal 53264-9) [facility] GLUCOSE (AUTOMATED)2022-06-28 18:01:20 Test Item Value Reference Range Interpretation Comments POCT GLU (test code = 1081513197) 172 mg/dL 70-110 H Lab Interpretation (test code = Abnormal 64100-9) [facility] GLUCOSE (AUTOMATED)2022-06-28 15:58:01 Test Item Value Reference Range Interpretation Comments POCT GLU (test code = 4289497523) 153 mg/dL 70-110 H Lab Interpretation (test code = Abnormal 48852-4) [facility] (ALB,T.PRO,BILI T,BU/BC,ALT,AST,ALK PHOS)2022-06-28 12:47:20 Test Item Value Reference Range Interpretation Comments TOTAL BILI (test code = 7090925915) 0.4 mg/dL 0.1-1.1 BILI UNCON (test code = 8351426199) 0.1 mg/dL 0.1-1.1 BILI CONJ (test code = 3680999314) 0.0 mg/dL 0.0-0.3 T PROTEIN (test code = 6229230191) 6.7 g/dL 6.3-8.2 ALBUMIN (test code = 7478995811) 3.6 g/dL 3.5-5.0 ALK PHOS (test code = 0933307378) 120 U/L 34-122 ALTv (test code = 1742-6) 17 U/L 5-50 AST(SGOT) (test code = 4825175163) 27 U/L 13-40 Lab Interpretation (test code = Normal 99450-0) [facility] METABOLIC PANEL (NA, K, CL, CO2, GLUCOSE, BUN, CREATININE, CA)2022-06-28 12:47:19 Test Item Value Reference Range Interpretation Comments NA (test code = 133 mmol/L 135-145 L 2455944004) K (test code = 4.0 mmol/L 3.5-5.0 8259648367) CL (test code = 103 mmol/L 98-108 6734259356) CO2 TOTAL (test code = 27 mmol/L 23-31 6112466678) AGAP (test code = 2-16 6021352990) BUN (test code = 45 mg/dL 7-23 H 9672119804) GLUCOSE (test code = 134 mg/dL 70-110 H 0238937114) CREATININE (test code = 1.18 mg/dL 0.60-1.25 1401656078) CALCIUM (test code = 8.6 mg/dL 8.6-10.6 5033231281) eGFR (test code = mL/min/1.73m2 9699530904) PIPO (test code = PIPO) Association of Glomerular Filtration Rate (GFR) and Staging of Kidney Disease* + --+ --+ ------+| GFR (mL/min/1.73 m2) ?| With Kidney Damage ?| ?Without Kidney Damage+ --------+ --------+ +| ?>90 ?| ?Stage one ?| ? Normal ?+ ---+ ---+ -------+| ?60-89 ?| ?Stage two ?| ? Decreased GFR ? + --+ --+ ------+| ?30-59 ?| ?Stage three ?| ? Stage three ? + --+ --+ ------+| ?15-29 ?| ?Stage four ? | ? Stage four ?+ ---+ ---+ -------+| ?<15 (or dialysis) ? ?| ?Stage five ? | ? Stage five ?+ ---+ ---+ -------+ *Each stage assumes the associated GFR level has been in effect for at least three months. ?Stages 1 to 5, with or without kidney disease, indicate chronic kidney disease. Notes: Determination of stages one and two (with eGFR >59mL/min/1.73 m2) requires estimation of kidney damage for at least three months as defined by structural or functional abnormalities of the kidney, manifested by either:Pathological abnormalities or Markers of kidney damage (including abnormalities in the composition of the blood or urine or abnormalities in imaging tests). Lab Interpretation Abnormal (test code = 05699-5) [facility] ONCE [id number] 12:34:39 Test Item Value Reference Range Interpretation Comments ABO & RH (test code O POSITIVE Performe d at [facility] [[email or web address]] = 20) [facility] Blood Bank3 [facility] s [address]Lrm[address] Free: [phone] A No. [id number] IAT (test code = Negative Performed a t [facility] [[email or web address]] 1185) [facility] Blood [facility]3 [address] [facility] [address] Free: [phone] A No. [id number] [facility] 12:28:19 Test Item Value Reference Range Interpretation Comments APTT Patient (test code = See_Comment [ Automated message] 3173-2) The system [employer] generated this result transmitted ref erence range: 26 - 36 Seconds. The re ference range was not u sed to interpret this result as normal/abnor mal. Lab Interpretation (test Normal code = 27563-0) [facility] CenterProth[facility]bin Time / [id number] 12:28:18 Test Item Value Reference Range Interpretation Comments PROTIME PATIENT (test See_Comment [Auto mated message] code = 5964-2) The system wh ich generated this result transmitted ref erence range: 10.1 - 1 2.6 Seconds. The re ference range was not u sed to interpret this result as normal/abnor mal. INR (test code = 6301-6) Nor mal INR <1.1; Warfarin Therap eutic range 2.0 to 3. 0 or 2.5 to 3.5, dep ending upon the indica tions. Lab Interpretation (test Normal code = 33871-3) [facility] WITH [id number] 12:26:17 Test Item Value Reference Range Interpretation Comments WBC (test code = See_Comment [Automated 6690-2) message] The sy stem which generated this result transmitted reference range : 4.20 - 10.70 10*3/?L. The reference range was not used to interpret this result as normal/abnormal . RBC (test code = See_Comment L [Automated 789-8) message] The sy stem which generated this result transmitted reference range : 4.26 - 5.52 10*6/?L. The reference range was not used to interpret this result as normal/abnormal . HGB (test code = 7.7 g/dL 12.2-16.4 L 718-7) HCT (test code = 23.1 % 38.4-49.3 L 4544-3) MCV (test code = 85.9 fL 81.7-95.6 787-2) MCH (test code = 28.6 pg 26.1-32.7 785-6) MCHC (test code = 33.3 g/dL 31.2-35.0 786-4) RDW-SD (test code = 49.7 fL 38.5-51.6 59412-9) RDW-CV (test code = 15.9 % 12.1-15.4 H 788-0) PLT (test code = See_Comment [Automated 777-3) message] The sy stem which generated this result transmitted reference range : 150 - 328 10*3/ ?L. The reference r josep was not used to interpret this result as normal/abnormal . MPV (test code = 9.6 fL 9.8-13.0 L 78220-5) NRBC/100 WBC (test See_Comment [Automat ed code = 4755726244) message] The system which generated this result transmitted reference range : 0.0 - 10.0 /100 WBCs. The refer ence range was not u sed to interpret th is result as normal/abnormal . NRBC x10^3 (test code See_Comment [Auto mated = 4777687219) message] The s ystem which generated this result transmitted reference range : 10*3/?L. The reference range was not used to interpret this result as normal/abnormal . GRAN MAT (NEUT) % 67.6 % (test code = 770-8) IMM GRAN % (test code 0.70 % = 8418036099) LYMPH % (test code = 20.7 % 736-9) MONO % (test code = 7.1 % 5905-5) EOS % (test code = 3.5 % 713-8) BASO % (test code = 0.4 % 706-2) GRAN MAT x10^3(ANC) 4.57 10*3/uL 1.99-6.95 (test code = 3425424224) IMM GRAN x10^3 (test 0.05 10*3/uL 0.00-0.06 code = 5344193056) LYMPH x10^3 (test code 1.40 10*3/uL 1.09-3.23 = 731-0) MONO x10^3 (test code 0.48 10*3/uL 0.36-1.02 = 742-7) EOS x10^3 (test code = 0.24 10*3/uL 0.06-0.53 711-2) BASO x10^3 (test code 0.03 10*3/uL 0.01-0.09 = 704-7) Lab Interpretation Abnormal (test code = 67861-8) [facility] GLUCOSE (AUTOMATED)2022-05-17 23:15:41 Test Item Value Reference Range Interpretation Comments POCT GLU (test code = 5470263398) 348 mg/dL 70-110 H Lab Interpretation (test code = Abnormal 06005-1) [facility] GLUCOSE (AUTOMATED)2022-05-17 22:01:36 Test Item Value Reference Range Interpretation Comments POCT GLU (test code = 9252178694) 366 mg/dL 70-110 H Lab Interpretation (test code = Abnormal 50980-1) [facility] GLUCOSE (AUTOMATED)2022-05-17 17:39:43 Test Item Value Reference Range Interpretation Comments POCT GLU (test code = 4959058555) 253 mg/dL 70-110 H Lab Interpretation (test code = Abnormal 24922-2) [facility] GLUCOSE (AUTOMATED)2022-05-17 13:58:09 Test Item Value Reference Range Interpretation Comments POCT GLU (test code = 9061070309) 194 mg/dL 70-110 H Lab Interpretation (test code = Abnormal 41619-5) [facility] METABOLIC PANEL (NA, K, CL, CO2, GLUCOSE, BUN, CREATININE, CA)2022-05-17 08:24:41 Test Item Value Reference Range Interpretation Comments NA (test code = 131 mmol/L 135-145 L 5233566688) K (test code = 3.4 mmol/L 3.5-5.0 L 3819546641) CL (test code = 98 mmol/L 98-108 3787372025) CO2 TOTAL (test code = 31 mmol/L 23-31 2723936619) AGAP (test code = 2-16 6901208826) BUN (test code = 12 mg/dL 7-23 4252389741) GLUCOSE (test code = 221 mg/dL 70-110 H 1986794307) CREATININE (test code = 0.75 mg/dL 0.60-1.25 9139028448) CALCIUM (test code = 7.3 mg/dL 8.6-10.6 L 6939962161) eGFR (test code = mL/min/1.73m2 9371420203) PIPO (test code = PIPO) Association of Glomerular Filtration Rate (GFR) and Staging of Kidney Disease* + --+ --+ ------+| GFR (mL/min/1.73 m2) ?| With Kidney Damage ?| ?Without Kidney Damage+ --------+ --------+ +| ?>90 ?| ?Stage one ?| ? Normal ?+ ---+ ---+ -------+| ?60-89 ?| ?Stage two ?| ? Decreased GFR ? + --+ --+ ------+| ?30-59 ?| ?Stage three ?| ? Stage three ? + --+ --+ ------+| ?15-29 ?| ?Stage four ? | ? Stage four ?+ ---+ ---+ -------+| ?<15 (or dialysis) ? ?| ?Stage five ? | ? Stage five ?+ ---+ ---+ -------+ *Each stage assumes the associated GFR level has been in effect for at least three months. ?Stages 1 to 5, with or without kidney disease, indicate chronic kidney disease. Notes: Determination of stages one and two (with eGFR >59mL/min/1.73 m2) requires estimation of kidney damage for at least three months as defined by structural or functional abnormalities of the kidney, manifested by either:Pathological abnormalities or Markers of kidney damage (including abnormalities in the composition of the blood or urine or abnormalities in imaging tests). Lab Interpretation Abnormal (test code = 98364-0) [facility] METABOLIC PANEL (NA, K, CL, CO2, GLUCOSE, BUN, CREATININE, CA)2022-05-17 08:24:41 Test Item Value Reference Range Interpretation Comments NA (test code = 131 mmol/L 135-145 L 7378980870) K (test code = 3.4 mmol/L 3.5-5.0 L 1278659647) CL (test code = 98 mmol/L 98-108 7790870006) CO2 TOTAL (test code = 31 mmol/L 23-31 8454854084) AGAP (test code = 2-16 5189437934) BUN (test code = 12 mg/dL 7-23 5079835382) GLUCOSE (test code = 221 mg/dL 70-110 H 4858415795) CREATININE (test code = 0.75 mg/dL 0.60-1.25 5058167886) CALCIUM (test code = 7.3 mg/dL 8.6-10.6 L 6252445342) eGFR (test code = mL/min/1.73m2 1060630803) PIPO (test code = PIPO) Association of Glomerular Filtration Rate (GFR) and Staging of Kidney Disease* + --+ --+ ------+| GFR (mL/min/1.73 m2) ?| With Kidney Damage ?| ?Without Kidney Damage+ --------+ --------+ +| ?>90 ?| ?Stage one ?| ? Normal ?+ ---+ ---+ -------+| ?60-89 ?| ?Stage two ?| ? Decreased GFR ? + --+ --+ ------+| ?30-59 ?| ?Stage three ?| ? Stage three ? + --+ --+ ------+| ?15-29 ?| ?Stage four ? | ? Stage four ?+ ---+ ---+ -------+| ?<15 (or dialysis) ? ?| ?Stage five ? | ? Stage five ?+ ---+ ---+ -------+ *Each stage assumes the associated GFR level has been in effect for at least three months. ?Stages 1 to 5, with or without kidney disease, indicate chronic kidney disease. Notes: Determination of stages one and two (with eGFR >59mL/min/1.73 m2) requires estimation of kidney damage for at least three months as defined by structural or functional abnormalities of the kidney, manifested by either:Pathological abnormalities or Markers of kidney damage (including abnormalities in the composition of the blood or urine or abnormalities in imaging tests). Lab Interpretation Abnormal (test code = 98189-2) [facility] WITHOUT [id number] 08:02:55 Test Item Value Reference Range Interpretation Comments WBC (test code = 6690-2) See_Comment [A utomated message] The system iGo generated this result transmit maria del carmen reference range : 4.20 - 10.70 10*3/?L. The reference range was not used to interpret this result as normal/abnormal . RBC (test code = 789-8) See_Comment L [Au tomated message] The system iGo generated this result transmit maria del carmen reference range : 4.26 - 5.52 10* 6/?L. The reference r josep was not used to interpret this result as normal/abnormal . HGB (test code = 718-7) 7.3 g/dL 12.2-16.4 L HCT (test code = 4544-3) 21.4 % 38.4-49.3 L MCH (test code = 785-6) 28.9 pg 26.1-32.7 MCV (test code = 787-2) 84.6 fL 81.7-95.6 MCHC (test code = 786-4) 34.1 g/dL 31.2-35.0 PLT (test code = 777-3) See_Comment [Au tomated message] The system iGo generated this result transmit maria del carmen reference range : 150 - 328 10*3/?L. The reference range was not used to interpret this result as normal/abnormal . MPV (test code = 9.5 fL 9.8-13.0 L 59270-2) RDW-CV (test code = 14.5 % 12.1-15.4 788-0) RDW-SD (test code = 45.0 fL 38.5-51.6 24157-3) NRBC x10^3 (test code = See_Comment [Au tomated message] 5092305234) The system iGo generated this result transmit maria del carmen reference range : 10*3/?L. The reference range was not used to interpret this result as normal/abnormal . NRBC/100 WBC (test code See_Comment [Au tomated message] = 4810751164) The system [facility] generated this result transmit maria del carmen reference range : 0.0 - 10.0 /100 WBC s. The reference r josep was not used to interpret this result as normal/abnormal . IPF % (test code = 8322923297) Lab Interpretation (test Abnormal code = 14353-7) [facility] WITHOUT [id number] 08:02:55 Test Item Value Reference Range Interpretation Comments WBC (test code = 6690-2) See_Comment [A utomated message] The system i[employer] generated this result transmit maria del carmen reference range : 4.20 - 10.70 10*3/?L. The reference range was not used to interpret this result as normal/abnormal . RBC (test code = 789-8) See_Comment L [Au tomated message] The system iGo generated this result transmit maria del carmen reference range : 4.26 - 5.52 10* 6/?L. The reference r josep was not used to interpret this result as normal/abnormal . HGB (test code = 718-7) 7.3 g/dL 12.2-16.4 L HCT (test code = 4544-3) 21.4 % 38.4-49.3 L MCH (test code = 785-6) 28.9 pg 26.1-32.7 MCV (test code = 787-2) 84.6 fL 81.7-95.6 MCHC (test code = 786-4) 34.1 g/dL 31.2-35.0 PLT (test code = 777-3) See_Comment [Au tomated message] The system iGo generated this result transmit maria del carmen reference range : 150 - 328 10*3/?L. The reference range was not used to interpret this result as normal/abnormal . MPV (test code = 9.5 fL 9.8-13.0 L 41939-0) RDW-CV (test code = 14.5 % 12.1-15.4 788-0) RDW-SD (test code = 45.0 fL 38.5-51.6 20049-1) NRBC x10^3 (test code = See_Comment [Au tomated message] 2361449990) The system iGo generated this result transmit maria del carmen reference range : 10*3/?L. The reference range was not used to interpret this result as normal/abnormal . NRBC/100 WBC (test code See_Comment [Au tomated message] = 3465073450) The system [employer] generated this result transmit maria del carmen reference range : 0.0 - 10.0 /100 WBC s. The reference r josep was not used to interpret this result as normal/abnormal . IPF % (test code = 1373514727) Lab Interpretation (test Abnormal code = 08304-7) [facility] GLUCOSE (AUTOMATED)2022-05-17 01:41:19 Test Item Value Reference Range Interpretation Comments POCT GLU (test code = 8877824330) 219 mg/dL 70-110 H Lab Interpretation (test code = Abnormal 94258-2) [facility] GLUCOSE (AUTOMATED)2022-05-17 01:41:19 Test Item Value Reference Range Interpretation Comments POCT GLU (test code = 5149724857) 219 mg/dL 70-110 H Lab Interpretation (test code = Abnormal 72570-3) [facility] GLUCOSE (AUTOMATED)2022-05-16 22:19:26 Test Item Value Reference Range Interpretation Comments POCT GLU (test code = 5507022384) 195 mg/dL 70-110 H Lab Interpretation (test code = Abnormal 15528-5) [facility] GLUCOSE (AUTOMATED)2022-05-16 22:19:26 Test Item Value Reference Range Interpretation Comments POCT GLU (test code = 3916565997) 195 mg/dL 70-110 H Lab Interpretation (test code = Abnormal 56567-0) [facility] GLUCOSE (AUTOMATED)2022-05-16 17:33:39 Test Item Value Reference Range Interpretation Comments POCT GLU (test code = 4483981268) 203 mg/dL 70-110 H Lab Interpretation (test code = Abnormal 29162-1) [facility] GLUCOSE (AUTOMATED)2022-05-16 17:33:39 Test Item Value Reference Range Interpretation Comments POCT GLU (test code = 9210089142) 203 mg/dL 70-110 H Lab Interpretation (test code = Abnormal 11689-2) [facility] WITHOUT [id number] 15:52:40 Test Item Value Reference Range Interpretation Comments WBC (test code = 6690-2) See_Comment [A utomated message] The system [employer] generated this result transmit maria del carmen reference range : 4.20 - 10.70 10*3/?L. The reference range was not used to interpret this result as normal/abnormal . RBC (test code = 789-8) See_Comment L [Au tomated message] The system [employer] generated this result transmit maria del carmen reference range : 4.26 - 5.52 10* 6/?L. The reference r josep was not used to interpret this result as normal/abnormal . HGB (test code = 718-7) 7.8 g/dL 12.2-16.4 L HCT (test code = 4544-3) 23.8 % 38.4-49.3 L MCH (test code = 785-6) 28.2 pg 26.1-32.7 MCV (test code = 787-2) 85.9 fL 81.7-95.6 MCHC (test code = 786-4) 32.8 g/dL 31.2-35.0 PLT (test code = 777-3) See_Comment [Au tomated message] The system [employer]Go generated this result transmit maria del carmne reference range : 150 - 328 10*3/?L. The reference range was not used to interpret this result as normal/abnormal . MPV (test code = 9.5 fL 9.8-13.0 L 15435-8) RDW-CV (test code = 15.0 % 12.1-15.4 788-0) RDW-SD (test code = 47.1 fL 38.5-51.6 16466-9) NRBC x10^3 (test code = See_Comment [Au tomated message] 2238640599) The system [employer]Go generated this result transmit maria del carmen reference range : 10*3/?L. The reference range was not used to interpret this result as normal/abnormal . NRBC/100 WBC (test code See_Comment [Au tomated message] = 2912662125) The system [employer] generated this result transmit maria del carmen reference range : 0.0 - 10.0 /100 WBC s. The reference r josep was not used to interpret this result as normal/abnormal . IPF % (test code = 8460066118) Lab Interpretation (test Abnormal code = 76370-9) [facility] WITHOUT [id number] 15:52:40 Test Item Value Reference Range Interpretation Comments WBC (test code = 6690-2) See_Comment [A utomated message] The system [employer] generated this result transmit maria del carmen reference range : 4.20 - 10.70 10*3/?L. The reference range was not used to interpret this result as normal/abnormal . RBC (test code = 789-8) See_Comment L [Au tomated message] The system [employer] generated this result transmit maria del carmen reference range : 4.26 - 5.52 10* 6/?L. The reference r josep was not used to interpret this result as normal/abnormal . HGB (test code = 718-7) 7.8 g/dL 12.2-16.4 L HCT (test code = 4544-3) 23.8 % 38.4-49.3 L MCH (test code = 785-6) 28.2 pg 26.1-32.7 MCV (test code = 787-2) 85.9 fL 81.7-95.6 MCHC (test code = 786-4) 32.8 g/dL 31.2-35.0 PLT (test code = 777-3) See_Comment [Au tomated message] The system [employer] generated this result transmit maria del carmen reference range : 150 - 328 10*3/?L. The reference range was not used to interpret this result as normal/abnormal . MPV (test code = 9.5 fL 9.8-13.0 L 54070-5) RDW-CV (test code = 15.0 % 12.1-15.4 788-0) RDW-SD (test code = 47.1 fL 38.5-51.6 42514-3) NRBC x10^3 (test code = See_Comment [Au tomated message] 8225744046) The system [employer] generated this result transmit maria del carmen reference range : 10*3/?L. The reference range was not used to interpret this result as normal/abnormal . NRBC/100 WBC (test code See_Comment [Au tomated message] = 6028364398) The system [employer] generated this result transmit maria del carmen reference range : 0.0 - 10.0 /100 WBC s. The reference r josep was not used to interpret this result as normal/abnormal . IPF % (test code = 8647314519) Lab Interpretation (test Abnormal code = 62427-9) [facility] GLUCOSE (AUTOMATED)2022-05-16 14:09:00 Test Item Value Reference Range Interpretation Comments POCT GLU (test code = 7658483304) 194 mg/dL 70-110 H Lab Interpretation (test code = Abnormal 12755-5) [facility] GLUCOSE (AUTOMATED)2022-05-16 14:09:00 Test Item Value Reference Range Interpretation Comments POCT GLU (test code = 0413837134) 194 mg/dL 70-110 H Lab Interpretation (test code = Abnormal 60190-5) [facility]2022-11-14 12:17:29 Test Item Value Reference Range Interpretation Comments MAGNESIUM (test code = 0300493068) 1.5 mg/dL 1.7-2.4 L Lab Interpretation (test code = Abnormal 09374-7) [facility]2022-11-14 12:17:29 Test Item Value Reference Range Interpretation Comments MAGNESIUM (test code = 2248040551) 1.5 mg/dL 1.7-2.4 L Lab Interpretation (test code = Abnormal 39870-3) [facility] METABOLIC PANEL (NA, K, CL, CO2, GLUCOSE, BUN, CREATININE, CA)2022-05-16 12:17:28 Test Item Value Reference Range Interpretation Comments NA (test code = 134 mmol/L 135-145 L 3089141177) K (test code = 3.5 mmol/L 3.5-5.0 1826369740) CL (test code = 104 mmol/L 98-108 2800987987) CO2 TOTAL (test code = 27 mmol/L 23-31 2135136224) AGAP (test code = 2-16 9760949713) BUN (test code = 23 mg/dL 7-23 6136433659) GLUCOSE (test code = 179 mg/dL 70-110 H 2341079225) CREATININE (test code = 0.77 mg/dL 0.60-1.25 1422110437) CALCIUM (test code = 7.5 mg/dL 8.6-10.6 L 8258785453) eGFR (test code = mL/min/1.73m2 9501344947) PIPO (test code = PIPO) Association of Glomerular Filtration Rate (GFR) and Staging of Kidney Disease* + --+ --+ ------+| GFR (mL/min/1.73 m2) ?| With Kidney Damage ?| ?Without Kidney Damage+ --------+ --------+ +| ?>90 ?| ?Stage one ?| ? Normal ?+ ---+ ---+ -------+| ?60-89 ?| ?Stage two ?| ? Decreased GFR ? + --+ --+ ------+| ?30-59 ?| ?Stage three ?| ? Stage three ? + --+ --+ ------+| ?15-29 ?| ?Stage four ? | ? Stage four ?+ ---+ ---+ -------+| ?<15 (or dialysis) ? ?| ?Stage five ? | ? Stage five ?+ ---+ ---+ -------+ *Each stage assumes the associated GFR level has been in effect for at least three months. ?Stages 1 to 5, with or without kidney disease, indicate chronic kidney disease. Notes: Determination of stages one and two (with eGFR >59mL/min/1.73 m2) requires estimation of kidney damage for at least three months as defined by structural or functional abnormalities of the kidney, manifested by either:Pathological abnormalities or Markers of kidney damage (including abnormalities in the composition of the blood or urine or abnormalities in imaging tests). Lab Interpretation Abnormal (test code = 78679-2) [facility] METABOLIC PANEL (NA, K, CL, CO2, GLUCOSE, BUN, CREATININE, CA)2022-05-16 12:17:28 Test Item Value Reference Range Interpretation Comments NA (test code = 134 mmol/L 135-145 L 0043875402) K (test code = 3.5 mmol/L 3.5-5.0 2250972296) CL (test code = 104 mmol/L 98-108 4812158140) CO2 TOTAL (test code = 27 mmol/L 23-31 4434427879) AGAP (test code = 2-16 9075982945) BUN (test code = 23 mg/dL 7-23 1533502512) GLUCOSE (test code = 179 mg/dL 70-110 H 8042354317) CREATININE (test code = 0.77 mg/dL 0.60-1.25 7575422682) CALCIUM (test code = 7.5 mg/dL 8.6-10.6 L 6165551261) eGFR (test code = mL/min/1.73m2 2273981014) PIPO (test code = PIPO) Association of Glomerular Filtration Rate (GFR) and Staging of Kidney Disease* + --+ --+ ------+| GFR (mL/min/1.73 m2) ?| With Kidney Damage ?| ?Without Kidney Damage+ --------+ --------+ +| ?>90 ?| ?Stage one ?| ? Normal ?+ ---+ ---+ -------+| ?60-89 ?| ?Stage two ?| ? Decreased GFR ? + --+ --+ ------+| ?30-59 ?| ?Stage three ?| ? Stage three ? + --+ --+ ------+| ?15-29 ?| ?Stage four ? | ? Stage four ?+ ---+ ---+ -------+| ?<15 (or dialysis) ? ?| ?Stage five ? | ? Stage five ?+ ---+ ---+ -------+ *Each stage assumes the associated GFR level has been in effect for at least three months. ?Stages 1 to 5, with or without kidney disease, indicate chronic kidney disease. Notes: Determination of stages one and two (with eGFR >59mL/min/1.73 m2) requires estimation of kidney damage for at least three months as defined by structural or functional abnormalities of the kidney, manifested by either:Pathological abnormalities or Markers of kidney damage (including abnormalities in the composition of the blood or urine or abnormalities in imaging tests). Lab Interpretation Abnormal (test code = 70323-1) [facility] WITHOUT [id number] 11:41:44 Test Item Value Reference Range Interpretation Comments WBC (test code = 6690-2) See_Comment [A utomated message] The system [employer] generated this result transmit maria del carmen reference range : 4.20 - 10.70 10*3/?L. The reference range was not used to interpret this result as normal/abnormal . RBC (test code = 789-8) See_Comment L [Au tomated message] The system [employer] generated this result transmit maria del carmen reference range : 4.26 - 5.52 10* 6/?L. The reference r josep was not used to interpret this result as normal/abnormal . HGB (test code = 718-7) 7.3 g/dL 12.2-16.4 L HCT (test code = 4544-3) 21.8 % 38.4-49.3 L MCH (test code = 785-6) 28.9 pg 26.1-32.7 MCV (test code = 787-2) 86.2 fL 81.7-95.6 MCHC (test code = 786-4) 33.5 g/dL 31.2-35.0 PLT (test code = 777-3) See_Comment [Au tomated message] The system [employer] generated this result transmit maria del carmen reference range : 150 - 328 10*3/?L. The reference range was not used to interpret this result as normal/abnormal . MPV (test code = 9.6 fL 9.8-13.0 L 41435-9) RDW-CV (test code = 15.0 % 12.1-15.4 788-0) RDW-SD (test code = 47.2 fL 38.5-51.6 11873-1) NRBC x10^3 (test code = See_Comment [Au tomated message] 4661664467) The system [employer] generated this result transmit maria del carmen reference range : 10*3/?L. The reference range was not used to interpret this result as normal/abnormal . NRBC/100 WBC (test code See_Comment [Au tomated message] = 9804568906) The system [facility] generated this result transmit maria del carmen reference range : 0.0 - 10.0 /100 WBC s. The reference r josep was not used to interpret this result as normal/abnormal . IPF % (test code = 0265595022) Lab Interpretation (test Abnormal code = 21546-6) [facility] WITHOUT [id number] 11:41:44 Test Item Value Reference Range Interpretation Comments WBC (test code = 6690-2) See_Comment [A utomated message] The system [employer] generated this result transmit maria del carmen reference range : 4.20 - 10.70 10*3/?L. The reference range was not used to interpret this result as normal/abnormal . RBC (test code = 789-8) See_Comment L [Au tomated message] The system [employer] generated this result transmit maria del carmen reference range : 4.26 - 5.52 10* 6/?L. The reference r josep was not used to interpret this result as normal/abnormal . HGB (test code = 718-7) 7.3 g/dL 12.2-16.4 L HCT (test code = 4544-3) 21.8 % 38.4-49.3 L MCH (test code = 785-6) 28.9 pg 26.1-32.7 MCV (test code = 787-2) 86.2 fL 81.7-95.6 MCHC (test code = 786-4) 33.5 g/dL 31.2-35.0 PLT (test code = 777-3) See_Comment [Au tomated message] The system [employer] generated this result transmit maria del carmen reference range : 150 - 328 10*3/?L. The reference range was not used to interpret this result as normal/abnormal . MPV (test code = 9.6 fL 9.8-13.0 L 49084-7) RDW-CV (test code = 15.0 % 12.1-15.4 788-0) RDW-SD (test code = 47.2 fL 38.5-51.6 12283-2) NRBC x10^3 (test code = See_Comment [Au tomated message] 9355101152) The system [employer] h generated this result transmit maria del carmen reference range : 10*3/?L. The reference range was not used to interpret this result as normal/abnormal . NRBC/100 WBC (test code See_Comment [Au tomated message] = 7045339035) The system [email or web address] [facility] generated this result transmit maria del carmen reference range : 0.0 - 10.0 /100 WBC s. The reference r josep was not used to interpret this result as normal/abnormal . IPF % (test code = 6620330627) Lab Interpretation (test Abnormal code = 00405-4) [facility]:32:10 Test Item Value Reference Range Interpretation Comments Height (test code = in 4378362359) Weight (test code = lbs 5468926856) Systolic BP (test mmHg code = 5305497919) Diastolic BP (test mmHg code = 0653651139) Heart Rate (test code bpm = 3209467667) Radiology Study observation (narrative) (test code = 80919-6) PIPO (test code = PIPO) ?Left?Ventricle: Left ventricle size is normal. Normal wall thickness. No regional wall motion abnormalities. Normal systolic function with a visually estimated EF of 55 - 60%. Diastolic dysfunction. ?Right?Ventricle: Right ventricle size is normal. Normal systolic function. ?Left?Atrium: Left atrium is mildly dilated. Left VentricleLeft ventricle size is normal. Normal wall thickness. No regional wall motion abnormalities. Normal systolic function with a visually estimated EF of 55 - 60%. Diastolic dysfunction.Right VentricleRight ventricle size is normal. Normal systolic function.Left AtriumLeft atrium is mildly dilated.Right AtriumRight atrium size is normal.IVC/SVCIVC was not well visualized.Mitral ValveMitral valve structure is normal. Mild posterior mitral annular calcification. Trace transvalvular regurgitation.Tricuspid ValveTricuspid valve structure is normal. Insufficient tricuspid regurgitation jet to estimate RVSP.Aortic ValveMildly thickened cusps. Mildly calcified cusps. Trace transvalvular regurgitation. No hemodynamically significant .Pulmonic ValveNot well visualized. Pulmonic valve is normal in structure and function.Ascending AortaNormal sized aorta.PericardiumThe pericardium is normal.Study DetailsStudy quality was adequate. A complete echocardiogram was performed using 2D, color flow Doppler and spectral Doppler. 5 mL of Lumason ultrasound enhancing agent used. [facility] 22:32:10 Test Item Value Reference Range Interpretation Comments Height (test code = in 0224465958) Weight (test code = lbs 7915256903) Systolic BP (test mmHg code = 3918249007) Diastolic BP (test mmHg code = 5681257124) Heart Rate (test code bpm = 4734272872) Radiology Study observation (narrative) (test code = 53263-1) PIPO (test code = PIPO) ?Left?Ventricle: Left ventricle size is normal. Normal wall thickness. No regional wall motion abnormalities. Normal systolic function with a visually estimated EF of 55 - 60%. Diastolic dysfunction. ?Right?Ventricle: Right ventricle size is normal. Normal systolic function. ?Left?Atrium: Left atrium is mildly dilated. Left VentricleLeft ventricle size is normal. Normal wall thickness. No regional wall motion abnormalities. Normal systolic function with a visually estimated EF of 55 - 60%. Diastolic dysfunction.Right VentricleRight ventricle size is normal. Normal systolic function.Left AtriumLeft atrium is mildly dilated.Right AtriumRight atrium size is normal.IVC/SVCIVC was not well visualized.Mitral ValveMitral valve structure is normal. Mild posterior mitral annular calcification. Trace transvalvular regurgitation.Tricuspid ValveTricuspid valve structure is normal. Insufficient tricuspid regurgitation jet to estimate RVSP.Aortic ValveMildly thickened cusps. Mildly calcified cusps. Trace transvalvular regurgitation. No hemodynamically significant .Pulmonic ValveNot well visualized. Pulmonic valve is normal in structure and function.Ascending AortaNormal sized aorta.PericardiumThe pericardium is normal.Study DetailsStudy quality was adequate. A complete echocardiogram was performed using 2D, color flow Doppler and spectral Doppler. 5 mL of Lumason ultrasound enhancing agent used. [facility] [id number] 22:15:46 Test Item Value Reference Range Interpretation Comments WBC (test code = 6690-2) See_Comment [A utomated message] The system [employer] generated this result transmit maria del carmen reference range : 4.20 - 10.70 10*3/?L. The reference range was not used to interpret this result as normal/abnormal . RBC (test code = 789-8) See_Comment L [Au tomated message] The system [employer] generated this result transmit maria del carmen reference range : 4.26 - 5.52 10* 6/?L. The reference r josep was not used to interpret this result as normal/abnormal . HGB (test code = 718-7) 7.9 g/dL 12.2-16.4 L HCT (test code = 4544-3) 23.9 % 38.4-49.3 L MCH (test code = 785-6) 28.6 pg 26.1-32.7 MCV (test code = 787-2) 86.6 fL 81.7-95.6 MCHC (test code = 786-4) 33.1 g/dL 31.2-35.0 PLT (test code = 777-3) See_Comment [Au tomated message] The system [employer] generated this result transmit maria del carmen reference range : 150 - 328 10*3/?L. The reference range was not used to interpret this result as normal/abnormal . MPV (test code = 9.7 fL 9.8-13.0 L 88394-6) RDW-CV (test code = 15.2 % 12.1-15.4 788-0) RDW-SD (test code = 48.1 fL 38.5-51.6 50264-5) NRBC x10^3 (test code = See_Comment [Au tomated message] 5743685466) The system [employer] generated this result transmit maria del carmen reference range : 10*3/?L. The reference range was not used to interpret this result as normal/abnormal . NRBC/100 WBC (test code See_Comment [Au tomated message] = 1355602314) The system [facility] generated this result transmit maria del carmen reference range : 0.0 - 10.0 /100 WBC s. The reference r josep was not used to interpret this result as normal/abnormal . IPF % (test code = 8021114262) Lab Interpretation (test Abnormal code = 64071-0) [facility] WITHOUT [id number] 22:15:46 Test Item Value Reference Range Interpretation Comments WBC (test code = 6690-2) See_Comment [A utomated message] The system [employer] generated this result transmit maria del carmen reference range : 4.20 - 10.70 10*3/?L. The reference range was not used to interpret this result as normal/abnormal . RBC (test code = 789-8) See_Comment L [Au tomated message] The system [employer] generated this result transmit maria del carmen reference range : 4.26 - 5.52 10* 6/?L. The reference r josep was not used to interpret this result as normal/abnormal . HGB (test code = 718-7) 7.9 g/dL 12.2-16.4 L HCT (test code = 4544-3) 23.9 % 38.4-49.3 L MCH (test code = 785-6) 28.6 pg 26.1-32.7 MCV (test code = 787-2) 86.6 fL 81.7-95.6 MCHC (test code = 786-4) 33.1 g/dL 31.2-35.0 PLT (test code = 777-3) See_Comment [Au tomated message] The system [employer] generated this result transmit maria del carmen reference range : 150 - 328 10*3/?L. The reference range was not used to interpret this result as normal/abnormal . MPV (test code = 9.7 fL 9.8-13.0 L 26195-5) RDW-CV (test code = 15.2 % 12.1-15.4 788-0) RDW-SD (test code = 48.1 fL 38.5-51.6 78034-0) NRBC x10^3 (test code = See_Comment [Au tomated message] 3104178176) The system [employer] generated this result transmit maria del carmen reference range : 10*3/?L. The reference range was not used to interpret this result as normal/abnormal . NRBC/100 WBC (test code See_Comment [Au tomated message] = 4670904325) The system [email or web address] generated this result transmit maria del carmen reference range : 0.0 - 10.0 /100 WBC s. The reference r josep was not used to interpret this result as normal/abnormal . IPF % (test code = 4426765250) Lab Interpretation (test Abnormal code = 31529-3) [facility] GLUCOSE (AUTOMATED)2022-05-15 22:09:19 Test Item Value Reference Range Interpretation Comments POCT GLU (test code = 0306002200) 208 mg/dL 70-110 H Lab Interpretation (test code = Abnormal 30398-0) [facility] GLUCOSE (AUTOMATED)2022-05-15 22:09:19 Test Item Value Reference Range Interpretation Comments POCT GLU (test code = 6349950498) 208 mg/dL 70-110 H Lab Interpretation (test code = Abnormal 13353-7) [facility] GLUCOSE (AUTOMATED)2022-05-15 17:51:24 Test Item Value Reference Range Interpretation Comments POCT GLU (test code = 6088309713) 227 mg/dL 70-110 H Lab Interpretation (test code = Abnormal 23835-9) [facility] GLUCOSE (AUTOMATED)2022-05-15 17:51:24 Test Item Value Reference Range Interpretation Comments POCT GLU (test code = 8534094359) 227 mg/dL 70-110 H Lab Interpretation (test code = Abnormal 57855-9) [facility] Packed RBC (in units), 1 Units 2022-05-15 14:38:44 Test Item Value Reference Range Interpretation Comments Cross Match Result Compatible (test code = 4409) ISBT Blood Type Code (test code = 486919) Unit Blood Type (test O Pos code = 4410) Unit Number (test [id number] code = 4411) Blood Expiration Date & Time (test code = 911613) Status Information Issued (test code = 4412) Product Red Blood Cells Identification (test code = 4413) Product Code (test D1323Q53 Performed at [facility] [[email or web address] code = 4414) Laboratory Services - [facility] Blood [address] [place] [address]Gslq Free: [phone] A No. [id number] [facility] Packed RBC (in units), 1 Units 2022-05-15 14:38:44 Test Item Value Reference Range Interpretation Comments Cross Match Result Compatible (test code = 4409) ISBT Blood Type Code (test code = 852701) Unit Blood Type (test O Pos code = 4410) Unit Number (test [id number] code = 4411) Blood Expiration Date & Time (test code = 735766) Status Information Issued (test code = 4412) Product Red Blood Cells Identification (test code = 4413) Product Code (test L8159Y69 Performed at [facility] [[email or web address] code = 4414) Laboratory Services - [facility] Blood [address] [address]Uwem Free: [phone] A No. [id number] [facility] GLUCOSE (AUTOMATED)2022-05-15 13:49:03 Test Item Value Reference Range Interpretation Comments POCT GLU (test code = 0340791286) 236 mg/dL 70-110 H Lab Interpretation (test code = Abnormal 58099-3) [facility] GLUCOSE (AUTOMATED)2022-05-15 13:49:03 Test Item Value Reference Range Interpretation Comments POCT GLU (test code = 4352970170) 236 mg/dL 70-110 H Lab Interpretation (test code = Abnormal 53331-5) [facility] METABOLIC PANEL (NA, K, CL, CO2, GLUCOSE, BUN, CREATININE, CA)2022-05-15 12:06:27 Test Item Value Reference Range Interpretation Comments NA (test code = 133 mmol/L 135-145 L 1725160110) K (test code = 4.1 mmol/L 3.5-5.0 8015855234) CL (test code = 102 mmol/L 98-108 8058963112) CO2 TOTAL (test code = 25 mmol/L 23-31 2126927212) AGAP (test code = 2-16 8673846448) BUN (test code = 46 mg/dL 7-23 H 1745584035) GLUCOSE (test code = 171 mg/dL 70-110 H 8924738080) CREATININE (test code = 1.02 mg/dL 0.60-1.25 6948521633) CALCIUM (test code = 7.9 mg/dL 8.6-10.6 L 6914372010) eGFR (test code = mL/min/1.73m2 7823966621) PIPO (test code = PIPO) Association of Glomerular Filtration Rate (GFR) and Staging of Kidney Disease* + --+ --+ ------+| GFR (mL/min/1.73 m2) ?| With Kidney Damage ?| ?Without Kidney Damage+ --------+ --------+ +| ?>90 ?| ?Stage one ?| ? Normal ?+ ---+ ---+ -------+| ?60-89 ?| ?Stage two ?| ? Decreased GFR ? + --+ --+ ------+| ?30-59 ?| ?Stage three ?| ? Stage three ? + --+ --+ ------+| ?15-29 ?| ?Stage four ? | ? Stage four ?+ ---+ ---+ -------+| ?<15 (or dialysis) ? ?| ?Stage five ? | ? Stage five ?+ ---+ ---+ -------+ *Each stage assumes the associated GFR level has been in effect for at least three months. ?Stages 1 to 5, with or without kidney disease, indicate chronic kidney disease. Notes: Determination of stages one and two (with eGFR >59mL/min/1.73 m2) requires estimation of kidney damage for at least three months as defined by structural or functional abnormalities of the kidney, manifested by either:Pathological abnormalities or Markers of kidney damage (including abnormalities in the composition of the blood or urine or abnormalities in imaging tests). Lab Interpretation Abnormal (test code = 25707-1) [facility]27 Test Item Value Reference Range Interpretation Comments MAGNESIUM (test code = 2866950896) 1.7 mg/dL 1.7-2.4 Lab Interpretation (test code = Normal 10206-9) [facility] (NA, K, CL, CO2, GLUCOSE, BUN, CREATININE, CA)2022-05-15 12:06:27 Test Item Value Reference Range Interpretation Comments NA (test code = 133 mmol/L 135-145 L 2118591405) K (test code = 4.1 mmol/L 3.5-5.0 5665227671) CL (test code = 102 mmol/L 98-108 8501708541) CO2 TOTAL (test code = 25 mmol/L 23-31 4300113673) AGAP (test code = 2-16 1376222808) BUN (test code = 46 mg/dL 7-23 H 5527116356) GLUCOSE (test code = 171 mg/dL 70-110 H 4813264074) CREATININE (test code = 1.02 mg/dL 0.60-1.25 4953583721) CALCIUM (test code = 7.9 mg/dL 8.6-10.6 L 5180995140) eGFR (test code = mL/min/1.73m2 4773061435) PIPO (test code = PIPO) Association of Glomerular Filtration Rate (GFR) and Staging of Kidney Disease* + --+ --+ ------+| GFR (mL/min/1.73 m2) ?| With Kidney Damage ?| ?Without Kidney Damage+ --------+ --------+ +| ?>90 ?| ?Stage one ?| ? Normal ?+ ---+ ---+ -------+| ?60-89 ?| ?Stage two ?| ? Decreased GFR ? + --+ --+ ------+| ?30-59 ?| ?Stage three ?| ? Stage three ? + --+ --+ ------+| ?15-29 ?| ?Stage four ? | ? Stage four ?+ ---+ ---+ -------+| ?<15 (or dialysis) ? ?| ?Stage five ? | ? Stage five ?+ ---+ ---+ -------+ *Each stage assumes the associated GFR level has been in effect for at least three months. ?Stages 1 to 5, with or without kidney disease, indicate chronic kidney disease. Notes: Determination of stages one and two (with eGFR >59mL/min/1.73 m2) requires estimation of kidney damage for at least three months as defined by structural or functional abnormalities of the kidney, manifested by either:Pathological abnormalities or Markers of kidney damage (including abnormalities in the composition of the blood or urine or abnormalities in imaging tests). Lab Interpretation Abnormal (test code = 62991-4) [facility] Test Item Value Reference Range Interpretation Comments MAGNESIUM (test code = 0757949756) 1.7 mg/dL 1.7-2.4 Lab Interpretation (test code = Normal 23986-2) [facility] WITHOUT [id number] 11:24:49 Test Item Value Reference Range Interpretation Comments WBC (test code = 6690-2) See_Comment [A utomated message] The system [employer] generated this result transmit maria del carmen reference range : 4.20 - 10.70 10*3/?L. The reference range was not used to interpret this result as normal/abnormal . RBC (test code = 789-8) See_Comment L [Au tomated message] The system [employer] generated this result transmit maria del carmen reference range : 4.26 - 5.52 10* 6/?L. The reference r josep was not used to interpret this result as normal/abnormal . HGB (test code = 718-7) 7.1 g/dL 12.2-16.4 L HCT (test code = 4544-3) 21.5 % 38.4-49.3 L MCH (test code = 785-6) 29.1 pg 26.1-32.7 MCV (test code = 787-2) 88.1 fL 81.7-95.6 MCHC (test code = 786-4) 33.0 g/dL 31.2-35.0 PLT (test code = 777-3) See_Comment [Au tomated message] The system [employer] generated this result transmit maria del carmen reference range : 150 - 328 10*3/?L. The reference range was not used to interpret this result as normal/abnormal . MPV (test code = 10.0 fL 9.8-13.0 58442-3) RDW-CV (test code = 14.4 % 12.1-15.4 788-0) RDW-SD (test code = 46.3 fL 38.5-51.6 20591-6) NRBC x10^3 (test code = See_Comment [Au tomated message] 3117038508) The system [employer] generated this result transmit maria del carmen reference range : 10*3/?L. The reference range was not used to interpret this result as normal/abnormal . NRBC/100 WBC (test code See_Comment [Au tomated message] = 8636040224) The system [facility] generated this result transmit maria del carmen reference range : 0.0 - 10.0 /100 WBC s. The reference r josep was not used to interpret this result as normal/abnormal . IPF % (test code = 0355683569) Lab Interpretation (test Abnormal code = 53840-7) [facility] WITHOUT [id number] 11:24:49 Test Item Value Reference Range Interpretation Comments WBC (test code = 6690-2) See_Comment [A utomated message] The system [employer] generated this result transmit maria del carmen reference range : 4.20 - 10.70 10*3/?L. The reference range was not used to interpret this result as normal/abnormal . RBC (test code = 789-8) See_Comment L [Au tomated message] The system [employer] generated this result transmit maria del carmen reference range : 4.26 - 5.52 10* 6/?L. The reference r josep was not used to interpret this result as normal/abnormal . HGB (test code = 718-7) 7.1 g/dL 12.2-16.4 L HCT (test code = 4544-3) 21.5 % 38.4-49.3 L MCH (test code = 785-6) 29.1 pg 26.1-32.7 MCV (test code = 787-2) 88.1 fL 81.7-95.6 MCHC (test code = 786-4) 33.0 g/dL 31.2-35.0 PLT (test code = 777-3) See_Comment [Au tomated message] The system [employer] generated this result transmit maria del carmen reference range : 150 - 328 10*3/?L. The reference range was not used to interpret this result as normal/abnormal . MPV (test code = 10.0 fL 9.8-13.0 32587-8) RDW-CV (test code = 14.4 % 12.1-15.4 788-0) RDW-SD (test code = 46.3 fL 38.5-51.6 40756-7) NRBC x10^3 (test code = See_Comment [Au tomated message] 6341483330) The system [employer] generated this result transmit maria del carmen reference range : 10*3/?L. The reference range was not used to interpret this result as normal/abnormal . NRBC/100 WBC (test code See_Comment [Au tomated message] = 6073596577) The system [employer] generated this result transmit maria del carmen reference range : 0.0 - 10.0 /100 WBC s. The reference r josep was not used to interpret this result as normal/abnormal . IPF % (test code = 0034190637) Lab Interpretation (test Abnormal code = 66298-5) [facility] (Total Cholesterol, Triglycerides, HDL) - [id number] 04:46:50 Test Item Value Reference Range Interpretation Comments CHOL (test code = 160 mg/dL 120-200 5538597043) HDL (test code = 33 mg/dL See_Comment L [Automated message] 2363411326) The system [employer] generated this result transmit maria del carmen reference range : >=40. The refer ence range was not u sed to interpret th is result as normal/abnormal . HDLC RATIO (test code = See_Comment [Au tomated message] 7464231151) The system iGo generated this result transmit maria del carmen reference range : <=5.0. The refe rence range was not u sed to interpret th is result as normal/abnormal . TRIG (test code = 215 mg/dL 30-170 H [id number]) LDL CHOL (test code = 84 mg/dL See_Comment [Auto mated message] 93041-2) The system iGo generated this result transmit maria del carmen reference range : <=160. The refe rence range was not u sed to interpret th is result as normal/abnormal . VLDL (test code = 43 mg/dL 5-60 8482367635) Lab Interpretation (test Abnormal code = 32444-2) [facility] Ch[facility], Triglycerides, HDL) - [id number] 04:46:50 Test Item Value Reference Range Interpretation Comments CHOL (test code = 160 mg/dL 120-200 [id number]) HDL (test code = 33 mg/dL See_Comment L [Automated message] [id number]) The system iGo generated this result transmit maria del carmen reference range : >=40. The refer ence range was not u sed to interpret th is result as normal/abnormal . HDLC RATIO (test code = See_Comment [Au tomated message] [id number]) The system iGo generated this result transmit maria del carmen reference range : <=5.0. The refe rence range was not u sed to interpret th is result as normal/abnormal . TRIG (test code = 215 mg/dL 30-170 H [id number]) LDL CHOL (test code = 84 mg/dL See_Comment [Auto mated message] 29329-1) The system iGo generated this result transmit maria del carmen reference range : <=160. The refe rence range was not u sed to interpret th is result as normal/abnormal . VLDL (test code = 43 mg/dL 5-60 4440434224) Lab Interpretation (test Abnormal code = 43272-5) [facility] WITHOUT [id number] 04:40:50 Test Item Value Reference Range Interpretation Comments WBC (test code = 6690-2) See_Comment [A utomated message] The system iGo generated this result transmit mraia del carmen reference range : 4.20 - 10.70 10*3/?L. The reference range was not used to interpret this result as normal/abnormal . RBC (test code = 789-8) See_Comment L [Au tomated message] The system iGo generated this result transmit maria del carmen reference range : 4.26 - 5.52 10* 6/?L. The reference r josep was not used to interpret this result as normal/abnormal . HGB (test code = 718-7) 7.6 g/dL 12.2-16.4 L HCT (test code = 4544-3) 22.9 % 38.4-49.3 L MCH (test code = 785-6) 29.6 pg 26.1-32.7 MCV (test code = 787-2) 89.1 fL 81.7-95.6 MCHC (test code = 786-4) 33.2 g/dL 31.2-35.0 PLT (test code = 777-3) See_Comment [Au tomated message] The system iGo generated this result transmit maria del carmen reference range : 150 - 328 10*3/?L. The reference range was not used to interpret this result as normal/abnormal . MPV (test code = 9.9 fL 9.8-13.0 96256-1) RDW-CV (test code = 14.5 % 12.1-15.4 788-0) RDW-SD (test code = 47.1 fL 38.5-51.6 97267-3) NRBC x10^3 (test code = See_Comment [Au tomated message] [id number]) The system iGo generated this result transmit maria del carmen reference range : 10*3/?L. The reference range was not used to interpret this result as normal/abnormal . NRBC/100 WBC (test code See_Comment [Au tomated message] = 3885139982) The system [email or web address] generated this result transmit maria del carmen reference range : 0.0 - 10.0 /100 WBC s. The reference r josep was not used to interpret this result as normal/abnormal . IPF % (test code = 4373474531) Lab Interpretation (test Abnormal code = 81001-1) [facility] [id number] 04:40:50 Test Item Value Reference Range Interpretation Comments WBC (test code = 6690-2) See_Comment [A utomated message] The system iGo generated this result transmit maria del carmen reference range : 4.20 - 10.70 10*3/?L. The reference range was not used to interpret this result as normal/abnormal . RBC (test code = 789-8) See_Comment L [Au tomated message] The system iGo generated this result transmit maria del carmen reference range : 4.26 - 5.52 10* 6/?L. The reference r josep was not used to interpret this result as normal/abnormal . HGB (test code = 718-7) 7.6 g/dL 12.2-16.4 L HCT (test code = 4544-3) 22.9 % 38.4-49.3 L MCH (test code = 785-6) 29.6 pg 26.1-32.7 MCV (test code = 787-2) 89.1 fL 81.7-95.6 MCHC (test code = 786-4) 33.2 g/dL 31.2-35.0 PLT (test code = 777-3) See_Comment [Au tomated message] The system iGo generated this result transmit maria del carmen reference range : 150 - 328 10*3/?L. The reference range was not used to interpret this result as normal/abnormal . MPV (test code = 9.9 fL 9.8-13.0 57906-2) RDW-CV (test code = 14.5 % 12.1-15.4 788-0) RDW-SD (test code = 47.1 fL 38.5-51.6 29435-8) NRBC x10^3 (test code = See_Comment [Au tomated message] [id number]) The system iGo generated this result transmit maria del carmen reference range : 10*3/?L. The reference range was not used to interpret this result as normal/abnormal . NRBC/100 WBC (test code See_Comment [Au tomated message] = 6499116990) The system [employer] generated this result transmit maria del carmen reference range : 0.0 - 10.0 /100 WBC s. The reference r josep was not used to interpret this result as normal/abnormal . IPF % (test code = 6455463789) Lab Interpretation (test Abnormal code = 50754-6) [facility] [id number] 22:20:51 Test Item Value Reference Range Interpretation Comments WBC (test code = 6690-2) See_Comment [A utomated message] The system iGo generated this result transmit maria del carmen reference range : 4.20 - 10.70 10*3/?L. The reference range was not used to interpret this result as normal/abnormal . RBC (test code = 789-8) See_Comment L [Au tomated message] The system iGo generated this result transmit maria del carmen reference range : 4.26 - 5.52 10* 6/?L. The reference r josep was not used to interpret this result as normal/abnormal . HGB (test code = 718-7) 7.7 g/dL 12.2-16.4 L HCT (test code = 4544-3) 23.8 % 38.4-49.3 L MCH (test code = 785-6) 28.9 pg 26.1-32.7 MCV (test code = 787-2) 89.5 fL 81.7-95.6 MCHC (test code = 786-4) 32.4 g/dL 31.2-35.0 PLT (test code = 777-3) See_Comment [Au tomated message] The system iGo generated this result transmit maria del carmen reference range : 150 - 328 10*3/?L. The reference range was not used to interpret this result as normal/abnormal . MPV (test code = 9.9 fL 9.8-13.0 45329-4) RDW-CV (test code = 14.5 % 12.1-15.4 788-0) RDW-SD (test code = 47.2 fL 38.5-51.6 48014-9) NRBC x10^3 (test code = See_Comment [Au tomated message] 5934499338) The system iGo generated this result transmit maria del carmen reference range : 10*3/?L. The reference range was not used to interpret this result as normal/abnormal . NRBC/100 WBC (test code See_Comment [Au tomated message] = 5733549577) The system [email or web address] generated this result transmit maria del carmen reference range : 0.0 - 10.0 /100 WBC s. The reference r josep was not used to interpret this result as normal/abnormal . IPF % (test code = 4388836309) Lab Interpretation (test Abnormal code = 54918-0) [facility] [id number] 22:20:51 Test Item Value Reference Range Interpretation Comments WBC (test code = 6690-2) See_Comment [A utomated message] The system iGo generated this result transmit maria del carmen reference range : 4.20 - 10.70 10*3/?L. The reference range was not used to interpret this result as normal/abnormal . RBC (test code = 789-8) See_Comment L [Au tomated message] The system iGo generated this result transmit maria del carmen reference range : 4.26 - 5.52 10* 6/?L. The reference r josep was not used to interpret this result as normal/abnormal . HGB (test code = 718-7) 7.7 g/dL 12.2-16.4 L HCT (test code = 4544-3) 23.8 % 38.4-49.3 L MCH (test code = 785-6) 28.9 pg 26.1-32.7 MCV (test code = 787-2) 89.5 fL 81.7-95.6 MCHC (test code = 786-4) 32.4 g/dL 31.2-35.0 PLT (test code = 777-3) See_Comment [Au tomated message] The system iGo generated this result transmit maria del carmen reference range : 150 - 328 10*3/?L. The reference range was not used to interpret this result as normal/abnormal . MPV (test code = 9.9 fL 9.8-13.0 40325-7) RDW-CV (test code = 14.5 % 12.1-15.4 788-0) RDW-SD (test code = 47.2 fL 38.5-51.6 90641-8) NRBC x10^3 (test code = See_Comment [Au tomated message] [id number]) The system iGo generated this result transmit maria del carmen reference range : 10*3/?L. The reference range was not used to interpret this result as normal/abnormal . NRBC/100 WBC (test code See_Comment [Au tomated message] = 8303755380) The system [email or web address] generated this result transmit maria del carmen reference range : 0.0 - 10.0 /100 WBC s. The reference r josep was not used to interpret this result as normal/abnormal . IPF % (test code = 6017038657) Lab Interpretation (test Abnormal code = 46131-6) [facility] Confirmation (Lab Only)2022-05-14 21:04:17 Test Item Value Reference Range Interpretation Comments ABO & RH (test code O Positive Performe d at [facility] [[email or web address]] = 20) Laboratory Serv [facility] [place] [address] s [id number] Free: [phone] A No. [id number] [facility] Confirmation (Lab Only)2022-05-14 21:04:17 Test Item Value Reference Range Interpretation Comments ABO & RH (test code O Positive Performe d at [facility] [[email or web address]] = 20) Laboratory Serv [facility] [address] [facility] s [id number] Free: [phone] A No. [id number] [facility] [id number] 19:35:37 Test Item Value Reference Range Interpretation Comments ABO & RH (test code O POSITIVE Performe d at [facility] = 20) Laboratory [facility] [place] [address] s [id number] Free: [phone] A No. [id number] IAT (test code = Negative Performed a t [facility] 1185) Laboratory [facility] [address] [place] [address] s [id number] Free: [phone] A No. [id number] [facility] - ONCE [id number] 19:35:37 Test Item Value Reference Range Interpretation Comments ABO & RH (test code O POSITIVE Performe d at [facility] = 20) Laboratory [facility] Blood [facility] [address] [place] [address] s [id number] Free: [phone] A No. [id number] IAT (test code = Negative Performed a t [facility] 1185) Laboratory [facility] Blood [facility] [address] [place] [address] s [id number] Free: [phone] A No. [id number] [facility] GLUCOSE (AUTOMATED)2022-05-14 19:01:40 Test Item Value Reference Range Interpretation Comments POCT GLU (test code = 9935767877) 199 mg/dL 70-110 H Lab Interpretation (test code = Abnormal 18169-4) [facility] GLUCOSE (AUTOMATED)2022-05-14 19:01:40 Test Item Value Reference Range Interpretation Comments POCT GLU (test code = 4850304566) 199 mg/dL 70-110 H Lab Interpretation (test code = Abnormal 40638-6) [facility] GLUCOSE (AUTOMATED)2022-05-14 15:51:56 Test Item Value Reference Range Interpretation Comments POCT GLU (test code = 9911070414) 243 mg/dL 70-110 H Lab Interpretation (test code = Abnormal 85483-2) [facility] GLUCOSE (AUTOMATED)2022-05-14 15:51:56 Test Item Value Reference Range Interpretation Comments POCT GLU (test code = 3079003965) 243 mg/dL 70-110 H Lab Interpretation (test code = Abnormal 81819-1) [facility]"
--- NOTE | 2022-09-23 12:32 | RAD REPORT ---
EXAM DESCRIPTION: RAD - Ankle Left 3 View - 09/23/2022 12:15 pm CLINICAL HISTORY: fall Trauma, pain COMPARISON: Foot Left 3 View dated 09/23/2022 FINDINGS: Soft tissue swelling is present adjacent to the medial malleolus. Small avulsion fracture likely present distal most aspect medial malleolus. No dislocation. Small posterior calcaneal spur.
--- NOTE | 2022-09-23 12:34 | RAD REPORT ---
EXAM DESCRIPTION: RAD - Foot Left 3 View - 09/23/2022 12:15 pm CLINICAL HISTORY: fall Trauma, fall COMPARISON: No comparisons FINDINGS: Diffuse osteopenia. Small posterior calcaneal spur. No foot fracture suspected. Mild soft tissue swelling
--- NOTE | 2022-09-23 13:58 | ER ---
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 Laceration to L ankle area. No head injury or LOC. Coronavirus screen: Vaccine status: Patient reports receiving the 2nd dose of the covid vaccine. Client denies travel out of the [place] in the last 14 days. At this time, the client does not indicate any symptoms associated with coronavirus-19. Ebola Screen: Patient denies travel to an Ebola-affected area in the 21 days before illness onset. Initial Sepsis Screen: Does the patient meet any 2 criteria? No. Patient's initial sepsis screen is negative. Does the patient have a suspected source of infection? Yes: Skin breakdown/wound. Risk Assessment: Do you want to hurt yourself or someone else? Patient reports no desire to harm self or others. Onset of symptoms was September 23, 2022. 11:44 Method Of Arrival: EMS ll1 11:44 Acuity: SONIA 3 ll1 Triage Assessment: 11:46 General: Appears in no apparent distress. Behavior is calm, cooperative, appropriate ll1 for age. Pain: Denies pain. Derm: Reports laceration L ankle. Musculoskeletal: Circulation, motion, and sensation intact. Capillary refill < 3 seconds. Historical: - Allergies: 11:40 NKDA; ll1 - PMHx: 11:40 [place]; Hypertensive disorder; diabetes mellitus; Pancreatitis; peripheral vascular ll1 disease; CVA; COPD; stent; stroke ( deficit left side paralysis); - PSHx: 11:40 Femoral bypass; Carotid endarterectomy; ll1 - Immunization history:: Client reports receiving the 2nd dose of the Covid vaccine. - Social history:: Smoking status: Patient reports the use of cigarette tobacco products, smokes one pack cigarettes per day. Screenin:24 [facility] ED Fall Risk Assessment (Adult) History of falling in the last 3 months, ll1 including since admission Yes- single mechanical fall (1 pt) Impaired Gait Yes (1 pt) Mobility Assist Device Used Yes (1 pt) Score/Fall Risk Level 3 or more points = High Risk Oriented to surroundings, Maintained a safe environment, Educated pt \T\ family on fall prevention, incl call for assistance when getting out of bed, Hourly rounding (assess needs \T\ fall precautionary measures) done, Used ambulatory aids as needed (educated on \T\ assisted with), Implemented a Fall Risk Plan of Care, Utilized family, sitter, or virtual evp sales as indicated. Abuse screen: Denies threats or abuse. Nutritional screening: No deficits noted. Tuberculosis screening: No symptoms or risk factors identified. Assessment: 12:24 Reassessment: No changes from previously documented assessment. Patient and/or family ll1 updated on plan of care and expected duration. Pain level reassessed. Patient is alert, oriented x 3, equal unlabored respirations, skin warm/dry/pink. 13:40 Musculoskeletal: Circulation, motion, and sensation intact. Capillary refill < 3 jl7 seconds. 14:00 Reassessment: No changes from previously documented assessment. Patient and/or family ll1 updated on plan of care and expected duration. Pain level reassessed. 14:30 Reassessment: No changes from previously documented assessment. helped into paper scrub jl7 bottoms. Wheeled out to vehicle. Sister driving home. Vital Signs: 11:44 BP 136 / 63; Pulse 56; Resp 19; Temp 98.4; Pulse Ox 95% on R/A; Pain 0/10; ll1 12:23 BP 131 / 61; Pulse 85; Resp 18; Pulse Ox 95% ; ll1 13:59 BP 179 / 58; Pulse 66; ll1 11:44 Pain Scale: Adult ll1 ED Course: 11:39 Patient arrived in ED. ll1 11:40 Jen Jacome, SALLIE is Primary Nurse. ll1 11:40 Jim Sahu PA is PHCP. jmm 11:40 Royce Forrester MD is Attending Physician. jmm 11:40 Arm band placed on Patient placed in an exam room, on a stretcher. ll1 11:46 Triage completed. ll1 12:07 pt sister.........[phone] call when pt is ready to be discharged. bd 12:17 Ankle Left 3 View XRAY In Process Unspecified. EDMS 12:17 Foot Left 3 View XRAY In Process Unspecified. EDMS 12:25 Patient has correct armband on for positive identification. Bed in low position. Call ll1 light in reach. Cardiac monitoring not applicable on this patient. 13:30 Wound care: to abrasion, located on L ankle was cleaned with Hibiclens, dressed with jl7 Neosporin, 4X4s, band aid, Patient tolerated well. 13:35 3D boot applied to left foot. jl7 13:58 Jayesh Martinez MD is Referral Physician. [facility] 14:39 No provider procedures requiring assistance completed. Patient did not have IV access jl7 during this emergency room visit. Administered Medications: No medications were administered Medication: 12:25 VIS not applicable for this client. ll1 Outcome: 13:57 Discharge ordered by . [facility] 14:39 Patient left the ED. jl7 14:39 Discharged to home via wheelchair. jl7 14:39 Condition: stable 14:39 Discharge instructions given to patient, Instructed on discharge instructions, follow up and referral plans. no drinking with medication, no driving heavy equipment, medication usage, Demonstrated understanding of instructions, follow-up care, medications, Prescriptions given X 1. Signatures: Dispatcher [employer] EDMS Radha Stephenson Joel, PA PA jmm Leal, Jahala RN RN jl7 Jen Jacome RN RN ll1
--- NOTE | 2022-09-23 13:58 | EDPHYS ---
Physician Documentation [facility] Name: Thom Wright Age: 61 yrs Sex: Male : 1960 Arrival Date: 09/23/2022 Time: 11:39 Bed 16 Private MD: ED Physician Royce Forrester HPI: 09/23 11:40 This 61 yrs old Male presents to ER via EMS with complaints of Ankle pain. [facility] 11:40 Onset: The symptoms/episode began/occurred acutely. This is a 61 year old male with a jmm hsitory of htn, dm that presents ot the ED with complaints of ankle pain/laceration which occurred after a fall prior to arrival. EMS denies the patient hit his head and has been a x o x 3. . Historical: - Allergies: 11:40 NKDA; ll1 - PMHx: 11:40 [place]; Hypertensive disorder; diabetes mellitus; Pancreatitis; peripheral vascular ll1 disease; CVA; COPD; stent; stroke ( deficit left side paralysis); - PSHx: 11:40 Femoral bypass; Carotid endarterectomy; ll1 - Immunization history:: Client reports receiving the 2nd dose of the Covid vaccine. - Social history:: Smoking status: Patient reports the use of cigarette tobacco products, smokes one pack cigarettes per day. ROS: 11:40 Constitutional: Negative for fever, chills, and weight loss, Cardiovascular: Negative jmm for chest pain, palpitations, and edema, Respiratory: Negative for shortness of breath, cough, wheezing, and pleuritic chest pain. 11:40 MS/extremity: Positive for injury or acute deformity, pain. 11:40 All other systems are negative. Exam: 11:40 Constitutional: This is a well developed, well nourished patient who is awake, alert, jmm and in no acute distress. Head/Face: atraumatic. Eyes: EOMI, no conjunctival erythema appreciated ENT: Moist Mucus Membranes Neck: Trachea midline, Supple Chest/axilla: Normal chest wall appearance and motion. Cardiovascular: Regular rate and rhythm. No edema appreciated Respiratory: Normal respirations, no respiratory distress appreciated Abdomen/GI: Non distended Back: Normal ROM 11:40 Skin: abrasion noted to the left lateral malleolus. 11:40 Neuro: Orientation: is normal, Mentation: is normal, Memory: is normal. 11:40 Psych: Behavior/mood is pleasant, cooperative. Vital Signs: 11:44 BP 136 / 63; Pulse 56; Resp 19; Temp 98.4; Pulse Ox 95% on R/A; Pain 0/10; ll1 12:23 BP 131 / 61; Pulse 85; Resp 18; Pulse Ox 95% ; ll1 13:59 BP 179 / 58; Pulse 66; ll1 11:44 Pain Scale: Adult ll1 MDM: 11:40 Patient medically screened. [facility] 15:40 Differential diagnosis: open fracture, closed fracture. Data reviewed: vital signs, [facility] nurses notes, radiologic studies, plain films. I considered the following discharge prescriptions or medication management in the emergency department Medications were administered in the Emergency Department. See AUG. 16:02 Independent interpretation of the following test(s) in the Emergency Department X-Ray: nancy My interpretation is distal tibial fracture. Counseling: I had a detailed discussion with the patient and/or guardian regarding: the historical points, exam findings, and any diagnostic results supporting the discharge/admit diagnosis, radiology results, the need for outpatient follow up, to return to the emergency department if symptoms worsen or persist or if there are any questions or concerns that arise at home. ED course: Xray revealed possible fracture. Boot applied in the ER. I do not suspect open fracture. Patient advised to follow up with ortho and otherwise given strict return precautions. patient understood and agrees with the plan of care. . 09/23 11:44 Order name: Ankle Left 3 View XRAY; Complete Time: 12:33 [facility] 09/23 11:44 Order name: Foot Left 3 View XRAY; Complete Time: 12:34 [facility] 09/23 13:03 Order name: Misc. Order: Ortho boot; Complete Time: 13:31 [facility] 09/23 13:03 Order name: Wound Care; Complete Time: 13:31 [facility] Administered Medications: No medications were administered Disposition: 18:03 Co-signature as Attending Physician, Royce Forrester MD I reviewed the patient's care rt provided by the Advanced Practice Provider and agree with the diagnosis and treatment plan. Disposition Summary: 09/23/22 13:57 Discharge Ordered Location: Home [facility] Condition: Stable [facility] Diagnosis - Distal Tibial Fracture [facility] Followup: [facility] - With: Private Physician - When: 2 - 3 days - Reason: Recheck today's complaints, Continuance of care, Re-evaluation by your physician Followup: [facility] - With: Jayesh Martinez MD - When: 2 - 3 days - Reason: Recheck today's complaints, Continuance of care, Re-evaluation by your physician Discharge Instructions: - Discharge Summary Sheet [facility] - Ankle Fracture [facility] Forms: - Medication Reconciliation Form [facility] - Thank You Letter [facility] - Antibiotic Education [facility] - Prescription Opioid Use [facility] Prescriptions: - Ultracet 37.5-325 mg Oral Tablet - take 1 tablet by ORAL route every 6 hours - for up to 5 days; do not exceed 8 jmm tablets per day.; 20 tablet; Refills: 0, Product Selection Permitted Signatures: Dispatcher [employer] EDJim Medina PA PA jmm Lewis, Lynsay, RN RN ll1 Royce Forrester MD MD rt
[2022-09-23 14:44] VITALS: TEMP 98.4; O2SAT 95
[2022-09-23 14:46] VITALS: BP 179/58
== END 2022-09-23 14:39 | disposition home or self-care (01) ==
LOC: ER 11:23
DX: S82.302A Unspecified fracture of lower end of left tibia, initial encounter for closed fracture (principal)
CPT/HCPCS: 99284

== ENCOUNTER 2023-03-22 12:52 | Emergency (ER) | payer MEDICARE ==
--- OUTSIDE RECORDS SUMMARY | 2023-03-22 12:57 | XMS REPORT | Continuity of Care Document ---
:1960 Author Organization [facility] t Address [address] [place] [address] Care Team Providers Name Role Phone Pcp, Patient Does Not Have A Primary Care Physician [phone] Britni Marvin DO Attending Clinician Doctor Unassigned, [place] Attending Clinician Unavailable Dora Murphy RN Attending Clinician Unavailable RANDY SY Attending Clinician Unavailable Antonia GARCIA, Randy Fisher Attending Clinician Joey Baker DO Attending Clinician Gregoria Cabrera MD Attending Clinician Jorge L GARCIA, Fritz Attending Clinician Chava Hurd MD Attending Clinician Artie Carrasco MD, Ayo Alvarado Attending Clinician [phone] FRITZ DALEY Attending Clinician Unavailable Ish GARCIA, Dm Attending Clinician RANDY SY Admitting Clinician Unavailable Randy Sy MD Admitting Clinician Artie Carrasco MD, Ayo Alvarado Admitting Clinician [phone] FRITZ DALEY Admitting Clinician Unavailable Payers Payer Name Policy Type Policy Number Effective Date Expiration Date [id number] 2022 (MEDICARE 00:00:00 REPLACEMENT HMO) Problems Condition [...] Branch S/P S/P Disease Recurre 2021-07 Overview: [facility] rs primary primary nce 15 Formattin ity o f angioplast angioplast 00:00: g of this [place] y with y with 00 note Medical coronary coronary might be Bran ch stent stent different from the original. 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 Disease Recurre 2021-07 Un alexi (current) (current) [...] 2 Type 2 Disease Active 2021-07 Overview: [facility] diabetes diabetes 07-17 Formattin ity of [...] heart 0-12 ity of and and 00:00: [place] chronic chronic 00 Medical kidney kidney Branch [...] of 923 ity of coronary coronary 00:00: [place] artery artery 00 Medical Branch Allergies, Adverse Reactions, Alerts Allergy Allergy Status Severity Reaction(s) Onset Inactive Treating Comm ents Source Name Type Date Date Clinician NO KNOWN Drug Active Univers ALLERGIE Class ity of S [place] [facility] Social History Social Habit Start Date Stop Date Quantity Comments Source History of tobacco Passive smoker Un iversity of use [place] [facility] History SDOH Social Unive rsity of Connections [facility] Med ical Together Branch History SDOH Social Unive rsity of Connections [facility] Medical Branch History SDOH Social Unive rsity of Connections [place] [facility] Membership Branch History SDOH Social Unive rsity of Connections [place] [facility] Meetings Branch History SDOH Social Unive rsity of Connections [facility] [place] Exposure to 2022-06-18 2022-06-28 Not sure University of SARS-CoV-2 (event) 00:00:00 03:00:00 [place] [facility] History SDOH Food 2022-06-28 2022-06-28 1 Univers ity of Worry 00:00:00 00:00:00 [place] [facility] History SDOH Food 2022-06-28 2022-06-28 1 Univers ity of Scarcity 00:00:00 00:00:00 [place] [facility] History SDOH 2022-06-28 2022-06-28 2 University o f Transport Med 00:00:00 00:00:00 [place] Medic al Branch History SDOH 2022-06-28 2022-06-28 2 University o f Transport Non-Med 00:00:00 00:00:00 [facility] edical Branch Tobacco use and 2022-06-28 2022-06-28 User of Universit y of exposure 00:00:00 00:00:00 smokeless [place] Medical tobacco Branch History SDMS 2022-06-28 2022-06-28 1 University o f Alcohol Frequency 00:00:00 00:00:00 [place] M edical Branch History SDMS 2022-06-28 2022-06-28 0 University o f Alcohol Std Drinks 00:00:00 00:00:00 [place] [facility] History SDOH 2022-06-28 2022-06-28 1 University o f Alcohol Binge 00:00:00 00:00:00 [place] Medic al Branch History [facility] Social 2022-06-28 2022-06-28 5 Unive rsity of Connections Phone 00:00:00 00:00:00 [facility] edical Branch History SDMS 2022-06-28 2022-06-28 0 University o f Physical Activity 00:00:00 00:00:00 [facility] edical DPW Branch History [facility] 2022-06-28 2022-06-28 0 University o f Physical Activity 00:00:00 00:00:00 [facility] edical MPS Branch History [facility] 2022-06-28 2022-06-28 4 University o f Financial 00:00:00 00:00:00 [facility] Alcohol intake 2022-06-28 2022-06-28 Ex-drinker University of 00:00:00 00:00:00 (finding) [place] [facility] Alcohol Comment 2022-05-14 2022-05-14 Previous heavy Unive rsity of 00:00:00 00:00:00 alcohol use [place] [facility] Sex Ass[birth year] At [birth year] Universit y of 00:00:00 00:00:00 [place] [facility] Smoking Status Start Date Stop Date Source Tobacco smoking consumption Univ ersity of [facility] unknown Branch Smokes tobacco daily 2022-06-28 00:00:00 Univers ity of [place] [facility] [place] Medications Ordered Filled Start Stop Current Ordering Indication Dosage Frequency Signature Comments Components Source Medication Medication Date Date Medication? Clinician (SIG) Name Name furosemide Yes [id number] 40mg Take 1 U nivers 40 mg 1-24 tablet by ity of tablet 00:00: mouth in [place] 00 the Medical morning. Branch metoprolol 2021-07 Yes 50mg Take 50 mg U nivers tartrate 50 2-28 by mouth ity of mg tablet 15:49: in the [place] 30 morning Medical and 50 mg Branch in the evening. traZODone 2021-07 Yes 50mg Take 50 mg Un alexi 50 mg 2-28 by mouth ity of tablet 15:49: at [place] 30 bedtime. Medical Branch metoprolol 2021-07 Yes 50mg Take 50 mg U nivers tartrate 50 2-28 by mouth ity of mg tablet 15:49: in the [place] 30 morning Medical and 50 mg Branch in the evening. traZODone 2021-07 Yes 50mg Take 50 mg Un alexi 50 mg 2-28 by mouth ity of tablet 15:49: at [place] [address] bedtime. Medical Branch metoprolol 2021-07 Yes 50mg Take 50 mg U nivers tartrate 50 2-28 by mouth ity of mg tablet 15:49: in the [place] 30 morning Medical and 50 mg Branch in the evening. traZODone 2021-07 Yes 50mg Take 50 mg Un alexi 50 mg 2-28 by mouth ity of tablet 15:49: at [place] [address] bedtime. Medical Branch metoprolol 2021-07 Yes 50mg Take 50 mg U nivers tartrate 50 2-28 by mouth ity of mg tablet 15:49: in the [place] 30 morning Medical and 50 mg Branch in the evening. traZODone 2021-07 Yes 50mg Take 50 mg Un alexi 50 mg 2-28 by mouth ity of tablet 15:49: at [place] [address] bedtime. Medical Branch traZODone 2021-07 Yes 50mg 50 mg, Univer s (DESYREL) 2-28 Oral, QHS, ity of tablet 50 03:00: [place] dose [place] 00 on [facility] 06/28/22 Branch at 2100, Until Discontinu ed, Routine atorvastati 2021-07 Yes 40mg 40 mg, Univ ers n (LIPITOR) 2-28 Oral, QHS, it y of tablet 40 03:00: First dose [place] mg 00 on [facility] 06/28/22 Branch at 2100, Until Discontinu ed, Routine insulin 2021-07 Yes 15U 15 Units, Unive rs glargine 08-30 Subcutaneo ity o f (LANTUS 02:00: us, BID, [place] U-100) 00 First dose Medical injection on [facility] 15 Units 06/28/22 at 2000, Until Discontinu ed, Routine losartan 2021-07 Yes 50mg 50 mg, Univers (COZAAR) 08-29 Oral, ity of tablet 50 22:00: DAILY, [place] mg 00 First dose Medical on [facility] 06/28/22 at 1600, Until Discontinu ed, Routine Sliding 2021-07 Yes Subcutaneo Univ ers Scale 08-29 us, TID ity of Insulin - 18:00: MEALS+HS, Sai as Lispro 00 First dose Medical (HumaLOG) + on [facility] Fsbg 06/28/22 Testing at 1200, Until Discontinu ed, Routine dextrose 2021-07 Yes 250mL 250 mL, IV Un alexi 10% (D10W) 08-29 Infusion, ity of bolus 15:07: PRN - SEE [place] infusion 22 INSTRUCTIO Medic al 250 mL [...] KIT) 18 Starting Medical injection 1 on [facility] mg 06/28/22 at 0907, Until Discontinu ed, ANAYA, Blood Glucose < or = 70 mg/dL and patient is unable to swallow or has mental changes. clopidogreL 2021-07 Yes 75mg 75 mg, Univ ers (PLAVIX) 75 08-29 Oral, ity of mg tablet 15:00: DAILY, [place] 75 mg 00 First dose Medical on [facility] 06/28/22 at 0900, Until Discontinu ed, Routine aspirin EC 2021-07 No 81mg 81 mg, Univ ers tablet 81 08-29 Oral, ity of mg 15:00: 20:43 DAILY, [place] 00 :30 First dose Medical on [facility] 06/28/22 at 0900, Until Discontinu ed pantoprazol 2021-07 Yes 40mg 40 mg, Univ ers e 08-29 Slow IV ity of (PROTONIX) 14:00: Push, [place] injection 00 Q12H, Medical 40 mg First dose Branch on [facility] 06/28/22 at 0800, Until Discontinu ed gabapentin 2021-07 Yes 200mg 200 mg, Uni vers (NEURONTIN) 08-29 Oral, TID, it y of capsule 200 14:00: First dose [place] mg 00 on [facility] 06/28/22 Branch at 0800, Until Discontinu ed, Routine acetaminoph 2021-07 Yes 650mg 650 mg, Un alexi en 08-29 Oral, ity of (TYLENOL) 10:01: Q6HPRN, [place] tablet 650 56 Starting Medic al mg on [facility] 06/28/22 at 0401, Until Discontinu ed, Routine, Pain (scale 1-3) insulin 2021-07 Yes 17U 17 Units, Unive rs glargine 1-16 Subcutaneo ity o f (LANTUS 03:00: us, [facility], [place] U-100) 00 First dose Medical injection on [facility] 17 Units 05/17/22 at 2100, Until Discontinu ed, Routine insulin 2021-07 Yes 17U 17 Units, Unive rs glargine 1-16 Subcutaneo ity o f (LANTUS 03:00: us, [facility], [place] U-100) 00 First dose Medical injection on [facility] 17 Units 05/17/22 at 2100, Until Discontinu ed, Routine insulin 2021-07 Yes [id number] 5U inject 5 Un alexi aspart 1-16 Units ity of U-100 00:00: under the [place] (NOVOLOG 00 skin in Medical FLEXPEN the Branch U-100 morning INSULIN) and 5 100 unit/mL Units at (3 mL) noon and 5 injection Units in the evening. Insulin 2021-07 Yes [id number] 17U inject 17 U nivers Detemir 100 1-16 Units ity of unit/mL (3 00:00: under the [place] mL) 00 skin in Medical injection the Branch morning and 17 Units in the evening. insulin 2021-07 Yes [id number] 5U inject 5 Un alexi aspart 1-16 Units ity of U-100 00:00: under the [place] (NOVOLOG 00 skin in Medical FLEXPEN the Branch U-100 morning INSULIN) and 5 100 unit/mL Units at (3 mL) noon and 5 injection Units in the evening. Insulin 2021-07 Yes [id number] 17U inject 17 U nivers Detemir 100 1-16 Units ity of unit/mL (3 00:00: under the [place] mL) 00 skin in Medical injection the Branch morning and 17 Units in the evening. insulin 2021-07 Yes [id number] 5U inject 5 Un alexi aspart 1-16 Units ity of U-100 00:00: under the [place] (NOVOLOG 00 skin in Medical FLEXPEN the Branch U-100 morning INSULIN) and 5 100 unit/mL Units at (3 mL) noon and 5 injection Units in the evening. Insulin 2021-07 Yes [id number] 17U inject 17 U nivers Detemir 100 1-16 Units ity of unit/mL (3 00:00: under the [place] mL) 00 skin in Medical injection the Branch morning and 17 Units in the evening. insulin 2021-07 Yes [id number] 5U inject 5 Un alexi aspart 1-16 Units ity of U-100 00:00: under the [place] (NOVOLOG 00 skin in Medical FLEXPEN the Branch U-100 morning INSULIN) and 5 100 unit/mL Units at (3 mL) noon and 5 injection Units in the evening. Insulin 2021-07 Yes [id number] 17U inject 17 U nivers Detemir 100 1-16 Units ity of unit/mL (3 00:00: under the [place] mL) 00 skin in Medical injection the Branch morning and 17 Units in the evening. insulin 2021-07 Yes [id number] 5U inject 5 Un alexi aspart 1-16 Units ity of U-100 00:00: under the [place] (NOVOLOG 00 skin in Medical FLEXPEN the Branch U-100 morning INSULIN) and 5 100 unit/mL Units at (3 mL) noon and 5 injection Units in the evening. Insulin 2021-07 Yes [id number] 17U inject 17 U nivers Detemir 100 1-16 Units ity of unit/mL (3 00:00: under the [place] mL) 00 skin in Medical injection the Branch morning and 17 Units in the evening. metoprolol 2021-07 Yes 50mg Take 50 mg U nivers tartrate 50 1-15 by mouth ity of mg tablet 18:59: in the [place] [address] morning Medical and 50 mg Branch in the evening. traZODone 2021-07 Yes 50mg Take 50 mg Un alexi 50 mg 1-15 by mouth ity of tablet 18:59: at [place] [address] bedtime. Medical Branch metoprolol 2021-07 Yes 50mg Take 50 mg U nivers tartrate 50 1-15 by mouth ity of mg tablet 18:59: in the [place] [address] morning Medical and 50 mg Branch in the evening. traZODone 2021-07 Yes 50mg Take 50 mg Un alexi 50 mg 1-15 by mouth ity of tablet 18:59: at [place] [address] bedtime. Medical Branch clopidogreL 2021-07 Yes 75mg 75 mg, Univ ers (PLAVIX) 75 1-15 Oral, ity of mg tablet 18:00: DAILY, [place] 75 mg 00 First dose Medical on [facility] 05/17/22 at 1200, Until Discontinu ed, Routine aspirin 2021-07 Yes 81mg 81 mg, Univers chewable 1-15 Oral, ity of tablet 81 18:00: DAILY, [place] mg 00 First dose Medical on [facility] 05/17/22 at 1200, Until Discontinu ed, Routine furosemide 2021-07 Yes 40mg 40 mg, Unive rs (LASIX) 1-15 Oral, ity of tablet 40 17:30: DAILY, [place] mg 00 First dose Medical on [facility] 05/17/22 at 1130, Until Discontinu ed, Routine amLODIPine 2021-07 Yes 5mg 5 mg, Univer s (NORVASC) 1-15 Oral, ity of tablet 5 mg 15:00: DAILY, [place] 00 First dose Medical on [facility] 05/17/22 at 0900, Until Discontinu ed, Routine pantoprazol 2021-07 Yes 40mg 40 mg, Univ ers e -15 Oral, ity of (PROTONIX) 15:00: DAILY, [place] EC tablet 00 First dose Medi reyna 40 mg on [facility] 05/17/22 at 0900, Until Discontinu ed, Routine amLODIPine 2021-07 Yes 5mg 5 mg, Univer s (NORVASC) -15 Oral, ity of tablet 5 mg 15:00: DAILY, [place] 00 First dose Medical on [facility] 05/17/22 at 0900, Until Discontinu ed, Routine pantoprazol 2021-07 Yes 40mg 40 mg, Univ ers e 15 Oral, ity of (PROTONIX) 15:00: DAILY, [place] EC tablet 00 First dose Medi reyna 40 mg on [facility] 05/17/22 at 0900, Until Discontinu ed, Routine potassium 2021-07 No 10meq 10 mEq, IV Univers chloride in 07-17 Piggyback, i ty of water 10 14:00: 22:30 Q2H, 4 [place] mEq/100 mL 00 :00 doses, Medical RTU 10 mEq First dose Bra nch on [facility] 05/17/22 at 0800, Last dose on 05/17/22 at 1400, Administer over 60 Minutes, 100 mL KCL 2021-07 40meq 40 mEq, Univers (KLOR-CON 07-17 Oral, ity of M20) tablet 13:45: 14:58 ONCE, 1 [place] 40 mEq 00 :00 dose, On Medical [facility] 05/17/22 at 0745, Routine furosemide 2021-07- No 40mg Take 40 mg Univers 40 mg 07-17 by mouth ity of tablet 11:19: 00:00 every [place] 35 :00 morning Medical and Branch evening. furosemide 2021-07 Yes [id number] 40mg Take 1 U nivers 40 mg 1-15 tablet by ity of tablet 00:00: mouth in [place] 00 the Medical morning. Branch furosemide 2021-07 Yes [id number] 40mg Take 1 U nivers 40 mg 1-15 tablet by ity of tablet 00:00: mouth in [place] 00 the Medical morning. Branch furosemide 2021-07 Yes [id number] 40mg Take 1 U nivers 40 mg 1-15 tablet by ity of tablet 00:00: mouth in [place] 00 the Medical morning. Branch furosemide 2021-07 Yes [id number] 40mg Take 1 U nivers 40 mg 1-15 tablet by ity of tablet 00:00: mouth in [place] 00 the Medical morning. Branch furosemide 2021-07 Yes [id number] 40mg Take 1 U nivers 40 mg 1-15 tablet by ity of tablet 00:00: mouth in [place] 00 the Medical morning. Branch furosemide 2021-07- No [id number] 40mg Take 1 Univers 40 mg 1-15 -24 tablet by ity of tablet 00:00: 00:00 mouth in [place] 00 :00 the Medical morning. Branch Insulin 2021-07- No [id number] 17U inject 17 Univers Detemir 100 1-15 12-16 Units ity of unit/mL (3 00:00: 05:59 under the [place] mL) 00 :00 skin in Medical injection the Branch morning and 17 Units in the evening. Do all this for 30 days. pantoprazol 2021-07- No [id number] 40mg Take 1 Univers e 40 mg EC 1-15 12-16 tablet by ity of tablet 00:00: 05:59 mouth in [place] 00 :00 the Medical morning Branch and 1 tablet in the evening. Do all this for 30 days. pantoprazol 2021-07- No [id number] 40mg Take 1 Univers e 40 mg EC 1-15 12-16 tablet by ity of tablet 00:00: 05:59 mouth in [place] 00 :00 the Medical morning Branch and 1 tablet in the evening. Do all this for 30 days. metoprolol 2021-07 Yes 50mg Take 50 mg U nivers tartrate 50 1-14 by mouth ity of mg tablet 21:59: in the [place] [address] morning Medical and 50 mg Branch in the evening. traZODone 2021-07 Yes 50mg Take 50 mg Un alexi 50 mg 1-14 by mouth ity of tablet 21:59: at [place] [address] bedtime. Medical Branch furosemide 2021-07 Yes 40mg Take 40 mg U nivers 40 mg 1-14 by mouth ity of tablet 21:59: every [place] 40 morning Medical and Branch evening. levothyroxi 2021-07- No 50ug Take 50 Un alexi ne 50 mcg 1-14 11-12 mcg by ity of tablet 21:59: 00:00 mouth. [place] 40 :00 [facility] Branch levothyroxi 2021-07- No 50ug Take 50 Un alexi ne 50 mcg 1-14 11-12 mcg by ity of tablet 21:59: 00:00 mouth. [place] 40 :00 [facility] Branch magnesium 2021-07- No 400mg 400 mg, [...] 03 Starting Medi reyna tablet 1 on [facility] Branch tablet 05/16/22 at 0313, Until Discontinu ed, Routine, Pain (scale 7-10) HYDROcodone 2021-07 Yes 1{tbl} 1 tablet, Univers -acetaminop 1-14 Oral, ity of hen (NORCO 09:13: Q6HPRN, [place] 5) 5-325 mg 03 Starting Medi reyna tablet 1 on [facility] Branch tablet 05/16/22 at 0313, Until Discontinu ed, Routine, Pain (scale 7-10) traZODone 2021-07 Yes 50mg 50 mg, Univer s (DESYREL) 1-14 Oral, QHS, ity of tablet 50 03:00: First dose [place] mg 00 on [facility] 05/15/22 Branch at 2100, Until Discontinu ed, Routine traZODone 2021-07 Yes 50mg 50 mg, Univer s (DESYREL) 1-14 Oral, QHS, ity of tablet 50 03:00: First dose [place] mg 00 on [facility] 05/15/22 Branch at 2100, Until Discontinu [...] IV Push, ity of (PF)) 18:37: Q6HPRN, [place] injection 4 44 Starting Medi reyna mg on [place] Branch 05/15/22 at 1237, Until Discontinu ed, Routine, Nausea and Vomiting (N/V) ondansetron 2021-07 Yes 4mg 4 mg, Slow Univers (ZOFRAN 1-13 IV Push, ity of (PF)) 18:37: Q6HPRN, [place] injection 4 44 Starting Medi reyna mg on [place] Branch 05/15/22 at 1237, Until Discontinu ed, Routine, Nausea and Vomiting (N/V) peg-electro 2021-07- No 4000mL 4,000 mL, Univers lyte soln 07-1515 Oral, PRN ity of (GOLYTELY) 18:37: 04:11 - SEE [place] [id number] 44 :51 INSTRUCTIO Sc dical .74 -5.86 NS, Branch gram Starting solution on [place] 4,000 mL 05/15/22 at 1237, Until 05/16/22 at 2211, Routine, Bowel Prep, colonoscop y sulfur 2021-07- No [id number] 5mL 5 mL, Unive rs hexafluorid 07-15 Intravenou i ty of e microsphr 18:15: 16:16 s, ONCE, 1 [place] (LUMASON) 00 :00 dose, On Medica l injection 5 [place] Branch mL 05/15/22 at 1215, Routine
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 approving Restricted medication : JULIAN TRAE ENRIQUEZ metoprolol 2021-07 Yes 25mg 25 mg, Unive rs tartrate 1-13 Oral, BID, ity o f (LOPRESSOR) 14:00: First dose [place] tablet 25 00 (after Medical mg last Branch modificati on) on [place] 05/15/22 at 0800, Until Discontinu ed, Routine metoprolol 2021-07 Yes 25mg 25 mg, Unive rs tartrate 1-13 Oral, BID, ity o f (LOPRESSOR) 14:00: First dose [place] tablet 25 00 (after Medical mg last Branch modificati on) on [place] 05/15/22 at 0800, Until Discontinu ed, Routine atorvastati 2021-07 Yes 40mg 40 mg, Univ ers n (LIPITOR) 1-13 Oral, QHS, it y of tablet 40 03:00: First dose [place] mg 00 on [facility] 05/14/22 Branch at 2100, Until Discontinu ed, Routine atorvastati 2021-07 Yes 40mg 40 mg, Univ ers n (LIPITOR) 1-13 Oral, QHS, it y of tablet 40 03:00: First dose [place] mg 00 on [facility] 05/14/22 Branch at 2100, Until Discontinu ed, Routine clopidogreL 2021-07- No 75mg 75 mg, Uni vers (PLAVIX) 75 07-14 Oral, ity of mg tablet 22:45: 00:36 DAILY, [place] 75 mg 00 :44 First dose Medical on [facility] 05/14/22 at 1645, Until Discontinu ed, Routine acetaminoph 2021-07 No 650mg 650 mg, U nivers en 07-14- Oral, ity of (TYLENOL) 21:30: 00:16 ONCE, 1 [place] tablet 650 00 :00 dose, On Medic al mg [facility] 05/14/22 at 1530, Routine lactated 2021-07 [...] Discontinu ed, Routine Sliding 2021-07 Yes Subcutaneo [facility] [place] [facility] ers Scale 1-12 us, TID ity of Insulin - 14:00: MEALS+HS, Sai as Lispro 00 First dose Medical (HumaLOG) + on [place] Branch [facility]sbg 05/14/22 Testing at 0800, Until Discontinu ed, Routine Sliding 2021-07 Yes [facility] [place] [facility] ers Scale 1-12 us, TID ity of Insulin - 14:00: MEALS+HS, Sai as Lispro 00 First dose Medical (HumaLOG) + on Sat Branch [facility]sbg 05/14/22 Testing at 0800, Until Discontinu ed, Routine metoprolol 2021-07- No 50mg 50 mg, [facility] [place] [facility] ers tartrate 07-14 Oral, BID, ity of [...] -12 Oral, ity of (TYLENOL) 11:42: Q6HPRN, [place] tablet 650 27 Starting Medic al mg on [facility] Branch 05/14/22 at 0542, Until Discontinu ed, Routine, Pain (scale 1-3) acetaminoph 2021-07 Yes 650mg 650 mg, Un alexi en -12 Oral, ity of (TYLENOL) 11:42: Q6HPRN, [place] tablet 650 27 Starting Medic al mg [...] 9-13 by mouth. ity of tablet 00:00: [facility] clopidogreL 2021-0 Yes 75mg Take 75 mg Univers 75 mg 9-13 by mouth. ity of tablet 00:00: [facility] pantoprazol Yes 40mg 40 mg. Univ ers e 40 mg EC 9-13 ity of tablet 00:00: [facility] clopidogreL 2021-0 Yes 75mg Take 75 mg Univers 75 mg 9-13 by mouth. ity of tablet 00:00: [facility] clopidogreL 2021-0 Yes 75mg Take 75 mg Univers 75 mg 9-13 by mouth. ity of tablet 00:00: [facility] clopidogreL 2021-0 Yes 75mg Take 75 mg Univers 75 mg 9-13 by mouth. ity of tablet 00:00: Medical Branch clopidogreL 2022-0 Yes 75mg Take 75 mg Univers 75 mg 9-13 by mouth. ity of tablet 00:00: [place] [facility] clopidogreL 2-0 Yes 75mg Take 75 mg Univers 75 mg 9-13 by mouth. ity of tablet 00:00: [place] [facility] pantoprazol 2021-0 2- No 40mg 40 mg. Uni vers e 40 mg EC 03-1515 ity of tablet 00:00: 00:00 [place] 00 : Medical Branch aspirin 81 2-0 Yes 81mg 81 mg. Unive rs mg Cap 03-09 ity of 00:00: [place] [facility] aspirin 81 2-0 Yes 81mg 81 mg. Unive rs mg Cap 03-09 ity of 00:00: [place] [facility] aspirin 81 2-0 Yes 81mg 81 mg. Unive rs mg Cap 03-09 ity of 00:00: [place] [address] Medical Branch aspirin 81 2-0 2- No 81mg 81 mg. Univ ers mg Cap 03-09 ity of 00:00: 00:00 [place] 00 : Medical Branch gabapentin 2022-0 Yes 200mg Take 200 Un alexi 100 mg 7-23 mg by ity of capsule 00:00: mouth. [place] [address] Medical Branch gabapentin 2022-0 Yes 200mg Take 200 Un alexi 100 mg 7-23 mg by ity of capsule 00:00: mouth. [place] [address] Medical Branch gabapentin 2022-0 Yes 200mg Take 200 Un alexi 100 mg 7-23 mg by ity of capsule 00:00: mouth. [place] [address] Medical Branch gabapentin 2022-0 Yes 200mg Take 200 Un alexi 100 mg 7-23 mg by ity of capsule 00:00: mouth. [place] [address] Medical Branch gabapentin 2022-0 Yes 200mg Take 200 Un alexi 100 mg 7-23 mg by ity of capsule 00:00: mouth. [place] [address] Medical Branch gabapentin 2022-0 Yes 200mg Take 200 Un alexi 100 mg 7-23 mg by ity of capsule 00:00: mouth. [place] [address] Medical Branch gabapentin 2022-0 Yes 200mg Take 200 Un alexi 100 mg 7-23 mg by ity of capsule 00:00: mouth. [place] [address] Medical Branch atorvastati 2-0 3- No 40mg Take 40 mg Univers n 40 mg 7-23 11-03 by mouth. ity of tablet 00:00: 04:59 [place] 00 :00 Medical Branch atorvastati 2022-0 2023- No 40mg Take 40 mg Univers n 40 mg 01-22 by mouth. ity of tablet 00:00: 04:59 [place] 00 :00 Medical Branch atorvastati 2022-0 2023- No 40mg Take 40 mg Univers n 40 mg 01-22 by mouth. ity of tablet 00:00: 04:59 [place] 00 :00 Medical Branch atorvastati 2022-0 2023- No 40mg Take 40 mg Univers n 40 mg 01-22 by mouth. ity of tablet 00:00: 04:59 [place] 00 :00 Medical Branch atorvastati 2022-0 2023- No 40mg Take 40 mg Univers n 40 mg 01-22 by mouth. ity of tablet 00:00: 04:59 [place] 00 :00 [facility] atorvastati 2022-0 2023- No 40mg Take 40 mg Univers n 40 mg 01-22 by mouth. ity of tablet 00:00: 04:59 [place] 00 :00 [facility] atorvastati 2022-0 2023- No 40mg Take 40 mg Univers n 40 mg 01-22 by mouth. ity of tablet 00:00: 04:59 [place] 00 :00 [facility] losartan 50 2022-0 2023- No 50mg Take 50 mg Univers mg tablet 01-22 by mouth. ity of 00:00: 04:59 [place] 00 :00 [facility] losartan 50 2022-0 2023- No 50mg Take 50 mg Univers mg tablet 01-22 by mouth. ity of 00:00: 04:59 [place] 00 :00 [facility] losartan 50 2022-0 2023- No 50mg Take 50 mg Univers mg tablet 01-22 by mouth. ity of 00:00: 04:59 [place] 00 :00 [facility] losartan 50 2022-0 2023- No 50mg Take 50 mg Univers mg tablet 01-22 by mouth. ity of 00:00: 04:59 [place] 00 :00 [facility] losartan 50 2022-0 [...] 18:12:00 122 mm[Hg] Univer sity of pressure [facility] Diastolic blood 2022-06-29 18:12:00 58 mm[Hg] Unive rsity of pressure [facility] Heart rate 2022-06-29 18:12:00 82 /min [facility] [place] [facility] Body temperature 2022-06-29 18:12:00 36.61 Candy Univ ers[facility] [place] [facility] Respiratory rate 2022-06-29 18:12:00 16 /min Univ [facility] [place] [facility] Oxygen saturation in 2022-06-29 18:12:00 96 /min University of Arterial blood by [facility] reyna Pulse oximetry Branch Body height 2022-06-28 09:01:00 182.9 cm [facility] [place] [facility] Body weight 2022-06-28 09:01:00 84.324 kg [facility] [place] [facility] BMI 2022-06-28 09:01:00 25.21 kg/m2 [facility] [place] [facility] Systolic blood 2022-05-17 21:59:00 162 mm[Hg] Univer sity of pressure [place] [facility] Diastolic blood 2022-05-17 21:59:00 76 mm[Hg] Unive rsity of pressure [place] [facility] Heart rate 2022-05-17 21:59:00 86 /min [facility] [place] [facility] Body temperature 2022-05-17 21:59:00 37.28 Candy Univ [facility] [place] [facility] Respiratory rate 2022-05-17 21:59:00 18 /min Univ [facility] [place] [facility] Oxygen saturation in 2022-05-17 21:59:00 95 /min University of Arterial blood by [facility] Pulse oximetry Branch Body weight 2022-05-14 11:02:00 86.18 kg [facility] [place] [facility] Systolic blood 2022-05-16 22:02:00 134 mm[Hg] Univer sity of pressure [place] [facility] Diastolic blood 2022-05-16 22:02:00 83 mm[Hg] Unive rsity of pressure [place] [facility] Respiratory rate 2022-05-16 22:02:00 19 /min Univ [facility] [place] [facility] Oxygen saturation in 2022-05-16 22:02:00 98 /min University of Arterial blood by [facility] reyna Pulse oximetry Branch Heart rate 2022-05-16 22:00:00 78 /min [facility] [place] [facility] Body temperature 2022-05-16 14:00:00 36.22 Candy Univ [facility] [place] [facility] Body weight 2022-05-14 11:02:00 86.18 kg [facility] [place] [facility] Procedures Procedure Date / Time Performing Source Performed Clinician EXTERNAL PROVIDER RECORDS 2022-07-08 Doctor Lora royy of 06:01:00 Unassigned, No [facility] POCT GLUCOSE (AUTOMATED) 2022-06-29 Randy Sy rsity of 18:21:00 [facility] POCT GLUCOSE (AUTOMATED) 2022-06-29 [facility] of 15:34:00 [facility] CBC WITH DIFF 2022-06-29 Anselmo [facility] of 11:58:00 [facility] POCT GLUCOSE (AUTOMATED) 2022-06-29 Randy Sy [facility] of 02:39:00 [facility] POCT GLUCOSE (AUTOMATED) 2022-06-28 Randy Sy rsity of 23:11:00 [facility] CBC WITH DIFF 2022-06-28 Tremayne Briones [place] of 20:43:00 [facility] POCT GLUCOSE (AUTOMATED) 2022-06-28 Randy Sy [facility] of 17:59:00 [facility] POCT GLUCOSE (AUTOMATED) 2022-06-28 Randy Sy [facility] of 15:05:00 [facility] HEPATIC FUNCTION PANEL (85901) 2022-06-28 Tremayne Briones niversity of (ALB,T.PRO,BILI 11:52:00 [facility],BU/BC,ALT,AST,ALK PHOS) [place] BASIC METABOLIC PANEL (NA, K, CL, 2022-06-28 Tiffany Briones [facility], GLUCOSE, BUN, CREATININE, CA) 11:52:00 [facility] CBC WITH DIFF 2022-06-28 Tremayne Briones [place] of 11:52:00 [facility] PROTHROMBIN TIME / INR 2022-06-28 [facility] 11:52:00 [facility] ACTIVATED PARTIAL THRMPLAS JAMESON 2022-06-28 Tremayne Briones niversity of 11:52:00 [facility] HB ABO GROUPING 2022-06-28 Tremayne Briones [place] of 11:50:00 [facility] POCT GLUCOSE (AUTOMATED) 2022-05-17 Ayo Alva sity of 23:13:00 J [facility] POCT GLUCOSE (AUTOMATED) 2022-05-17 Ayo Alva sity of 22:00:00 J [facility] POCT GLUCOSE (AUTOMATED) 2022-05-17 Ayo lAva sity of 17:38:00 J [facility] POCT GLUCOSE (AUTOMATED) 2022-05-17 Ayo Alva sity of 13:57:00 J [facility] BASIC METABOLIC PANEL (NA, K, CL, 2022-05-17 [facility] of CO2, GLUCOSE, BUN, CREATININE, CA) 07:42:00 [facility] CBC WITHOUT DIFF 2022-05-17 [facility] of 07:42:00 [facility] BASIC METABOLIC PANEL (NA, K, CL, 2022-05-17 [facility] of CO2, GLUCOSE, BUN, CREATININE, CA) 07:42:00 [facility] CBC WITHOUT DIFF 2022-05-17 [facility] of 07:42:00 [facility] POCT GLUCOSE (AUTOMATED) 2022-05-17 Ayo Alva sity of 01:40:00 J [facility] POCT GLUCOSE (AUTOMATED) 2022-05-17 Ayo Alva sity of 01:40:00 J [facility] POCT GLUCOSE (AUTOMATED) 2022-05-16 Ayo Alva sity of 22:12:00 J [facility] POCT GLUCOSE (AUTOMATED) 2022-05-16 Ayo Alva sity of 22:12:00 J [facility] COLONOSCOPY (ENDO) 2022-05-16 [facility] of 20:04:24 [facility] COLONOSCOPY (ENDO) 2022-05-16 [facility] of 20:04:24 [facility] EGD (ENDO) 2022-05-16 [facility] of 19:53:16 [facility] EGD (ENDO) 2022-05-16 [facility] of 19:53:16 [facility] COLONOSCOPY 2022-05-16 DengDm matthews [place] of 19:41:00 [facility] ESOPHAGOGASTRODUODENOSCOPY 2022-05-16 Dm Deng [facility] rsity of 19:41:00 [facility] COLONOSCOPY 2022-05-16 Deng, [facility] of 19:41:00 [facility] ESOPHAGOGASTRODUODENOSCOPY 2022-05-16 Dm Deng [facility] rsity of 19:41:00 [facility] POCT GLUCOSE (AUTOMATED) 2022-05-16 Chava Hurd ity of 17:29:00 [facility] POCT GLUCOSE (AUTOMATED) 2022-05-16 Chava Hurd ity of 17:29:00 [facility] CT ABDOMEN WO CONTRAST 2022-05-16 Phillip, Katie Universit y of 15:37:03 [facility] CT ABDOMEN WO CONTRAST 2022-05-16 Phillip, Katie Universit y of 15:37:03 [facility] CBC WITHOUT DIFF 2022-05-16 Lorraine, [facility] of 15:29:00 [facility] CBC WITHOUT DIFF 2022-05-16 Lorraine [facility] of 15:29:00 [facility] POCT GLUCOSE (AUTOMATED) 2022-05-16 Chava Hurd ity of 14:07:00 [facility] POCT GLUCOSE (AUTOMATED) 2022-05-16 Chava Hurd ity of 14:07:00 [facility] MAGNESIUM 2022-05-16 [facility] of 11:26:00 [facility] BASIC METABOLIC PANEL (NA, K, CL, 2022-05-16 [facility] of CO2, GLUCOSE, BUN, CREATININE, CA) 11:26:00 [facility] CBC WITHOUT DIFF 2022-05-16 Lorraine [facility] of 11:26:00 [facility] MAGNESIUM 2022-05-16 [facility] of 11:26:00 [facility] BASIC METABOLIC PANEL (NA, K, CL, 2022-05-16 [facility] of CO2, GLUCOSE, BUN, CREATININE, CA) 11:26:00 [facility] CBC WITHOUT DIFF 2022-05-16 Lorraine [facility] of 11:26:00 [facility] POCT GLUCOSE (AUTOMATED) 2022-05-15 Chava Hurd ity of 22:07:00 [facility] POCT GLUCOSE (AUTOMATED) 2022-05-15 Chava Hurd ity of 22:07:00 [facility] CBC WITHOUT DIFF 2022-05-15 Mario Petersssica [place] of 22:00:00 [facility] CBC WITHOUT DIFF 2022-05-15 Lorraine [facility] of 22:00:00 [facility] POCT GLUCOSE (AUTOMATED) 2022-05-15 Chava Hurd ity of 17:49:00 [facility] POCT GLUCOSE (AUTOMATED) 2022-05-15 Chava Hurd ity of 17:49:00 [facility] TRANSTHORACIC ECHO (TTE) COMPLETE 2022-05-15 Lorraine [facility] W/ CONTRAST 16:21:00 [facility] TRANSTHORACIC ECHO (TTE) COMPLETE 2022-05-15 Lorraine [facility] W/ CONTRAST 16:21:00 [facility] TRANSFUSE PACKED RBC 2022-05-15 Lorraine [facility] of 14:45:00 [facility] TRANSFUSE PACKED RBC 2022-05-15 [facility] of 14:45:00 [facility] PREPARE PACKED RBC 2022-05-15 [facility] of 14:38:44 [facility] PREPARE PACKED RBC 2022-05-15 [facility] of 14:38:44 [facility] XR SHOULDER 2+ VW LEFT 2022[facility]05-15 [facility] 14:[facility]00 [facility] XR SHOULDER 2+ VW LEFT 2022-05-15 Savannah Rajesh [facility] y of 14:34:00 [facility] CBC WITHOUT DIFF 2022-05-15 Rajesh Nuñez [place] of 13:47:00 [facility] CBC WITHOUT DIFF 2022-05-15 Rajesh Nuñez [place] of 13:47:00 [facility] POCT GLUCOSE (AUTOMATED) 2022-05-15 Chava Hurd ity of 13:45:00 [facility] POCT GLUCOSE (AUTOMATED) 2022-05-15 Chava Hurd ity of 13:45:00 [facility] Branch MAGNESIUM 2022-05-15 [facility] of 10:42:00 [facility] BASIC METABOLIC PANEL (NA, K, CL, 2022-05-15 [facility] of CO2, GLUCOSE, BUN, CREATININE, CA) 10:42:00 [facility] CBC WITHOUT DIFF 2022-05-15 Savannah [facility] of 10:42:00 [facility] MAGNESIUM 2022-05-15 [facility] of 10:42:00 [facility] BASIC METABOLIC PANEL (NA, K, CL, 2022-05-15 [facility] of CO2, GLUCOSE, BUN, CREATININE, CA) 10:42:00 [facility] CBC WITHOUT DIFF 2022-05-15 Savannah [facility] of 10:42:00 [facility] LIPID PANEL (12179)(TOTAL 2022-05-15 Katie Phillip [facility] sity of CHOLESTEROL, TRIGLYCERIDES, HDL) 04:26:00 [facility] CBC WITHOUT DIFF 2022-05-15 Savannah [facility] of 04:26:00 [facility] LIPID PANEL (55388)(TOTAL 2022-05-15 Kenji, Katie [facility] sity of CHOLESTEROL, TRIGLYCERIDES, HDL) 04:26:00 [facility] CBC WITHOUT DIFF 2022-05-15 Savannah [facility] of 04:26:00 [facility] CBC WITHOUT DIFF 2022-05-14 Savannah [facility] of 21:37:00 [facility] CBC WITHOUT DIFF 2022-05-14 Savannah [facility] of 21:37:00 [facility] ABORH CONFIRMATION (LAB ONLY) 2022-05-14 Katie Phillip Un iversity of 19:21:00 [facility] ABORH CONFIRMATION (LAB ONLY) 2022-05-14 Katie Phillip Un iversity of 19:21:00 [facility] POCT GLUCOSE (AUTOMATED) 2022-05-14 Joey Baker Univers ity of 18:51:00 [facility] POCT GLUCOSE (AUTOMATED) 2022-05-14 Joey Baker Univers ity of 18:51:00 [facility] HB ABO GROUPING 2022-05-14 [facility] of 18:46:00 [facility] CBC WITHOUT DIFF 2022-05-14 [facility] of 18:46:00 [facility] HB ABO GROUPING 2022-05-14 [facility] of 18:46:00 [facility] CBC WITHOUT DIFF 2022-05-14 [facility] of 18:46:00 [facility] POCT GLUCOSE (AUTOMATED) 2022-05-14 Joey Baker Univers ity of 15:46:00 [facility] POCT GLUCOSE (AUTOMATED) 2022-05-14 Joey Baker Univers ity of 15:46:00 [facility] N-TERMINAL PRO-BNP 2022-05-14 Kenji [facility] of 12:50:00 [facility] MAGNESIUM 2022-05-14 Phillip, [facility] of 12:50:00 [facility] HEPATIC FUNCTION PANEL (74823) 2022-05-14 Katie Phillip niversity of (ALB,T.PRO,BILI 12:50:00 [place] [facility],BU/BC,ALT,AST,ALK PHOS) [place] BASIC METABOLIC PANEL (NA, K, CL, 2022-05-14 Kenji [facility] of CO2, GLUCOSE, BUN, CREATININE, CA) 12:50:00 [facility] CBC WITH DIFF 2022-05-14 Phillip, [facility] of 12:50:00 [facility] GLYCOSYLATED HEMOGLOBIN (A1C) 2022-05-14 Katie Phillip iversity of 12:50:00 [facility] PROTHROMBIN TIME / INR 2022-05-14 Kenji [facility] y of 12:50:00 [facility] N-TERMINAL PRO-BNP 2022-05-14 Kenji [facility] of 12:50:00 [facility] MAGNESIUM 2022-05-14 Kenji [facility] of 12:50:00 [facility] HEPATIC FUNCTION PANEL (39474) 2022-05-14 Katie Phillip U niversity of (ALB,T.PRO,BILI 12:50:00 [place] [facility] T,BU/BC,ALT,AST,ALK PHOS) [place] BASIC METABOLIC PANEL (NA, K, CL, 2022-05-14 Kenji [facility] of CO2, GLUCOSE, BUN, CREATININE, CA) 12:50:00 [facility] CBC WITH DIFF 2022-05-14 Katie Phillip University of 12:50:00 [facility] GLYCOSYLATED HEMOGLOBIN (A1C) 2022-05-14 Katie Phillip Un iversity of 12:50:00 [facility] PROTHROMBIN TIME / INR 2022-05-14 Katie Phillip Universit y of 12:50:00 [facility] HOSPITAL ADMISSION 2022-05-14 [facility] of 06:01:00 Unassigned, No [facility] Encounters Start End Encounter Admission Attending Care Care Encounter Source Date/Time Date/Time Type Type Clinicians Facility Department ID 2022-07-21 2022-07-21 Babita Marvin [facility] 1.2.840.114 [id number] Univers 00:00:00 00:00:00 Britni PRIMARY 350.1.13.10 it [place]2.[place] [id number] Sc dical 390 Branch 2022-07-08 2022-07-08 Orders Doctor PAULINO 1.2.840.114 [id number] Univers 00:00:00 00:00:00 Only Unassigned, EVELYN 350.1.13.10 ity of [facility] 4.2.7.2.686 Sai as [id number] [place] 009 Branch 2022-06-30 2022-06-30 Transition EVELIN Murphy 1.2.840.114 [id number] Univers 00:00:00 00:00:00 of Care Dora ELLISON 350.1.13.10 [place] [id number] [place] 403 Branch 2022-06-28 2022-06-29 Outpatient U RANDY SY [facility] MARCO [id number] Univers 02:44:00 15:49:00 ity of [facility] 2022-06-28 2022-06-29 Hospital Randy Sy 1.2.840.114 [id number] Univers 02:44:00 15:49:00 Encounter Sesung EVELYN 350.1.13.10 ity of HOSPITAL 4.2.7.2.686 Sai as [id number] [place] 095 Branch 2022-05-18 2022-05-18 Transition EVELIN Murphy 1.2.840.114 [id number] Univers 00:00:00 00:00:00 of Nishant ELLISON 350.1.13.10 it y of [place]2.7.2.686 [place] [id number] [place] 403 Branch 2022-05-14 2022-05-17 Hospital Joey Baker 1.2.840.11 [id number] Univers 04:59:00 18:59:00 Encounter Gregoria CabreraY 350.1.13.10 ity [facility] 4.2.7.2.686 Chava Fu [id number] Medical AlvaAyo jackson 099 Branch 2022-05-14 2022-05-17 Inpatient U [facility] [id number] Univers 04:59:00 18:59:00 [facility] ity [facility] 2022-05-16 2022-05-16 [facility] 1.2.840.114 [id number] Univers 15:07:00 16:02:00 Dm HOLT 350.1.13.10 it y of SCIENCES 4.2.7.2.686 Sai as BLDG [id number] [place] 020 Branch 2022-04-27 2022-04-27 Outpatient DMG DMG [id number] Devoted 00:00:00 00:00:00 [id number] Medica l Group 2022-04-27 2022-04-27 Outpatient DMG DMG [id number] Devoted 00:00:00 00:00:00 [id number] Medica l Group 2022-04-27 2022-04-27 Outpatient DMG DMG [id number] Devoted 00:00:00 00:00:00 [id number] Medica l Group 2022-04-27 2022-04-27 Outpatient DMG DMG [id number] [facility]oted 00:00:00 00:00:00 [id number] Medica l Group 2022-04-27 2022-04-27 Outpatient DMG DMG [id number] [facility]oted 00:00:00 00:00:00 [id number] Medica l Group 2022-04-27 2022-04-27 Outpatient DMG DMG [id number] [facility]oted 00:00:00 00:00:00 [id number] Medica l Group 2022-04-27 2022-04-27 Outpatient DMG DMG [id number] [facility] 00:00:00 00:00:00 [id number] Medica l Group 2022-02-24 2022-02-24 Outpatient DMG DMG [id number] [facility]oted 00:00:00 00:00:00 [id number] Medica l Group Results Test Description Test Time Test Comments Results Result Comments Source POCT GLUCOSE (AUTOMATED) 2022-06-29 18:22:02 Test Item Value Reference Range Interpretation Comme nts POCT GLU (test code = 0265665727) 248 mg/dL 70-110 H Lab Interpretation (test code = 95202-6) [facility] 15:35:16 Test Item Value Reference Range Interpretation Comments POCT GLU (test code = 1264880806) 167 mg/dL 70-110 H Lab Interpretation (test code = Abnormal 64196-1) [facility]22-[facility]29 02:41:00 Test Item Value Reference Range Interpretation Comments POCT GLU (test code = 7851928511) 153 mg/dL 70-110 H Lab Interpretation (test code = Abnormal 87965-2) [facility]2022-06-28 23:12:05 Test Item Value Reference Range Interpretation Comments POCT GLU (test code = 8900126607) 158 mg/dL 70-110 H Lab Interpretation (test code = Abnormal 18849-5) [facility]2022-06-28 18:01:20 Test Item Value Reference Range Interpretation Comments POCT GLU (test code = 3144662449) 172 mg/dL 70-110 H Lab Interpretation (test code = Abnormal 68184-0) [facility] GLUCOSE (AUTOMATED)2022-06-28 15:58:01 Test Item Value Reference Range Interpretation Comments POCT GLU (test code = 9078598014) 153 mg/dL 70-110 H Lab Interpretation (test code = Abnormal 08878-2) [facility]97827[facility] (ALB,T.PRO,BILI T,BU/BC,ALT,AST,ALK PHOS)2022-06-28 12:47:20 Test Item Value Reference Range Interpretation Comments TOTAL BILI (test code = 6808052856) 0.4 mg/dL 0.1-1.1 BILI UNCON (test code = 6010897134) 0.1 mg/dL 0.1-1.1 BILI CONJ (test code = 7485023694) 0.0 mg/dL 0.0-0.3 T PROTEIN (test code = 1136533601) 6.7 g/dL 6.3-8.2 ALBUMIN (test code = 6642051664) 3.6 g/dL 3.5-5.0 ALK PHOS (test code = 8997852311) 120 U/L 34-122 ALTv (test code = 1742-6) 17 U/L 5-50 AST(SGOT) (test code = 3096913219) 27 U/L 13-40 Lab Interpretation (test code = Normal 63480-2) [facility] METABOLIC PANEL (NA, K, CL, CO2, GLUCOSE, BUN, CREATININE, CA)2022-06-28 12:47:19 Test Item Value Reference Range Interpretation Comments NA (test code = 133 mmol/L 135-145 L 8950877326) K (test code = 4.0 mmol/L 3.5-5.0 7602134337) CL (test code = 103 mmol/L 98-108 5760810042) CO2 TOTAL (test code = 27 mmol/L 23-31 0900026045) AGAP (test code = 2-16 6321053202) BUN (test code = 45 mg/dL 7-23 H 1624327275) GLUCOSE (test code = 134 mg/dL 70-110 H 1344761570) CREATININE (test code = 1.18 mg/dL 0.60-1.25 8115862780) CALCIUM (test code = 8.6 mg/dL 8.6-10.6 3337777990) eGFR (test code = mL/min/1.73m2 6140760555) PIPO (test code = PIPO) Association of [...] tests). Lab Interpretation Abnormal (test code = 61534-6) [facility] Screen - ONCE [id number] 12:34:39 Test Item Value Reference Range Interpretation Comments ABO & RH (test code O POSITIVE Performe d at [facility] = 20) Laboratory Serv [facility] Blood [facility]3 [address] [facility] s [address]Rboy Free: [phone] A No. [id number] IAT (test code = Negative Performed a t [facility] 1185) Laboratory Serv [facility] Blood [facility]3 [address] [facility] s [address]Xszh Free: [phone] A No. [id number] [facility] AreaaPTT2022-12-27 12:28:19 Test Item Value Reference Range Interpretation Comments APTT Patient (test code = See_Comment [ Automated message] 3173-2) The system [employer] generated this result transmitted ref erence range: 26 - 36 Seconds. The re ference range was not u sed to interpret this result as normal/abnor mal. Lab Interpretation (test Normal code = 48053-9) [facility] AreaProthrombin Time / [id number] 12:28:18 Test Item Value Reference Range Interpretation [...] tions. Lab Interpretation (test Normal code = 98831-0) [facility] Area[facility] WITH [id number] 12:26:17 Test Item Value Reference Range Interpretation [...] RDW-SD (test code = 49.7 fL 38.5-51.6 63420-4) RDW-CV (test code = 15.9 % 12.1-15.4 H 788-0) PLT (test code = See_Comment [Automated 777-3) message] The sy stem which generated this result transmitted reference range : 150 - 328 10*3/ ?L. The reference r josep was not used to interpret this result as normal/abnormal . MPV (test code = 9.6 fL 9.8-13.0 L 05579-5) NRBC/100 WBC (test See_Comment [Automat ed code = 6620213469) message] The system which generated this result transmitted reference range : 0.0 - 10.0 /100 WBCs. The refer ence range was not u sed to interpret th is result as normal/abnormal . NRBC x10^3 (test code See_Comment [Auto mated = 1001036800) message] The s ystem which generated this result transmitted reference range : 10*3/?L. The reference range was not used to interpret this result as normal/abnormal . GRAN MAT (NEUT) % 67.6 % (test code = 770-8) IMM GRAN % (test code 0.70 % = 3380610045) LYMPH % (test code = 20.7 % 736-9) MONO % (test code = 7.1 % 5905-5) EOS % (test code = 3.5 % 713-8) BASO % (test code = 0.4 % 706-2) GRAN MAT x10^3(ANC) 4.57 10*3/uL 1.99-6.95 (test code = 2497362537) IMM GRAN x10^3 (test 0.05 10*3/uL 0.00-0.06 code = 2446996494) LYMPH x10^3 (test code 1.40 10*3/uL 1.09-3.23 = 731-0) MONO x10^3 (test code 0.48 10*3/uL 0.36-1.02 = 742-7) EOS x10^3 (test code = 0.24 10*3/uL 0.06-0.53 711-2) BASO x10^3 (test code 0.03 10*3/uL 0.01-0.09 = 704-7) Lab Interpretation Abnormal (test code = 71856-9) [facility] GLUCOSE (AUTOMATED)2022-05-17 23:15:41 Test Item Value Reference Range Interpretation Comments POCT GLU (test code = 0205042634) 348 mg/dL 70-110 H Lab Interpretation (test code = Abnormal 07071-4) [facility] GLUCOSE (AUTOMATED)2022-05-17 22:01:36 Test Item Value Reference Range Interpretation Comments POCT GLU (test code = 8450630434) 366 mg/dL 70-110 H Lab Interpretation (test code = Abnormal 62716-4) [facility] GLUCOSE (AUTOMATED)2022-05-17 17:39:43 Test Item Value Reference Range Interpretation Comments POCT GLU (test code = 8949018532) 253 mg/dL 70-110 H Lab Interpretation (test code = Abnormal 36941-9) [facility] GLUCOSE (AUTOMATED)2022-05-17 13:58:09 Test Item Value Reference Range Interpretation Comments POCT GLU (test code = 9552042571) 194 mg/dL 70-110 H Lab Interpretation (test code = Abnormal 10705-0) [facility] METABOLIC PANEL (NA, K, CL, CO2, GLUCOSE, BUN, CREATININE, CA)2022-05-17 08:24:41 Test Item Value Reference Range Interpretation Comments NA (test code = 131 mmol/L 135-145 L 2440289107) K (test code = 3.4 mmol/L 3.5-5.0 L 8771719059) CL (test code = 98 mmol/L 98-108 0448989265) CO2 TOTAL (test code = 31 mmol/L 23-31 4229965847) AGAP (test code = 2-16 4941778431) BUN (test code = 12 mg/dL 7-23 3842056764) GLUCOSE (test code = 221 mg/dL 70-110 H 1601853705) CREATININE (test code = 0.75 mg/dL 0.60-1.25 5324110512) CALCIUM (test code = 7.3 mg/dL 8.6-10.6 L 2877332682) eGFR (test code = mL/min/1.73m2 7312548635) PIPO (test code = PIPO) Association of [...] tests). Lab Interpretation Abnormal (test code = 34378-1) [facility] METABOLIC PANEL (NA, K, CL, CO2, GLUCOSE, BUN, CREATININE, CA)2022-05-17 08:24:41 Test Item Value Reference Range Interpretation Comments NA (test code = 131 mmol/L 135-145 L 1754108994) K (test code = 3.4 mmol/L 3.5-5.0 L 6687064976) CL (test code = 98 mmol/L 98-108 5193005450) CO2 TOTAL (test code = 31 mmol/L 23-31 4913766449) AGAP (test code = 2-16 0584601766) BUN (test code = 12 mg/dL 7-23 0686698408) GLUCOSE (test code = 221 mg/dL 70-110 H 3592702095) CREATININE (test code = 0.75 mg/dL 0.60-1.25 7234441517) CALCIUM (test code = 7.3 mg/dL 8.6-10.6 L 6676040634) eGFR (test code = mL/min/1.73m2 8749042972) PIPO (test code = PIPO) Association of [...] tests). Lab Interpretation Abnormal (test code = 29450-0) [facility] WITHOUT [id number] 08:02:55 Test Item Value Reference Range Interpretation Comments WBC (test code = 6690-2) See_Comment [A utomated message] The system [employer] generated this result transmit maria del carmen reference range : 4.20 - 10.70 10*3/?L. The reference range was not used to interpret this result as normal/abnormal . RBC (test code = 789-8) See_Comment L [Au tomated message] The system [employer] generated this result transmit maria del carmen [...] 777-3) See_Comment [Au tomated message] The system [employer] generated this result transmit maria del carmen reference range : 150 - 328 10*3/?L. The reference range was not used to interpret this result as normal/abnormal . MPV (test code = 9.5 fL 9.8-13.0 L 74725-8) RDW-CV (test code = 14.5 % 12.1-15.4 788-0) RDW-SD (test code = 45.0 fL 38.5-51.6 25410-9) NRBC x10^3 (test code = See_Comment [Au tomated message] 8462961436) The system [employer] generated this result transmit maria del carmen reference range : 10*3/?L. The reference range was not used to interpret this result as normal/abnormal . NRBC/100 WBC (test code See_Comment [Au tomated message] = 7172866910) The system [facility] generated this result transmit maria del carmen reference range : 0.0 - 10.0 /100 WBC s. The reference r josep was not used to interpret this result as normal/abnormal . IPF % (test code = 3460854771) Lab Interpretation (test Abnormal code = 67756-1) [facility] WITHOUT [id number] 08:02:55 Test Item Value Reference Range Interpretation Comments WBC (test code = 6690-2) See_Comment [A utomated message] The system [employer] generated this result transmit maria del carmen reference range : 4.20 - 10.70 10*3/?L. The reference range was not used to interpret this result as normal/abnormal . RBC (test code = 789-8) See_Comment L [Au tomated message] The system [employer] generated this result transmit maria del carmen [...] 777-3) See_Comment [Au tomated message] The system [employer] generated this result transmit maria del carmen reference range : 150 - 328 10*3/?L. The reference range was not used to interpret this result as normal/abnormal . MPV (test code = 9.5 fL 9.8-13.0 L 81283-8) RDW-CV (test code = 14.5 % 12.1-15.4 788-0) RDW-SD (test code = 45.0 fL 38.5-51.6 12407-0) NRBC x10^3 (test code = See_Comment [Au tomated message] 0540520581) The system [employer] generated this result transmit maria del carmen reference range : 10*3/?L. The reference range was not used to interpret this result as normal/abnormal . NRBC/100 WBC (test code See_Comment [Au tomated message] = 9732646390) The system [facility] generated this result transmit maria del carmen reference range : 0.0 - 10.0 /100 WBC s. The reference r josep was not used to interpret this result as normal/abnormal . IPF % (test code = 3085928083) Lab Interpretation (test Abnormal code = 60769-1) [facility] GLUCOSE (AUTOMATED)2022-05-17 01:41:19 Test Item Value Reference Range Interpretation Comments POCT GLU (test code = 8032354396) 219 mg/dL 70-110 H Lab Interpretation (test code = Abnormal 44788-8) [facility] GLUCOSE (AUTOMATED)2022-05-17 01:41:19 Test Item Value Reference Range Interpretation Comments POCT GLU (test code = 7834990375) 219 mg/dL 70-110 H Lab Interpretation (test code = Abnormal 83693-1) [facility] GLUCOSE (AUTOMATED)2022-05-16 22:19:26 Test Item Value Reference Range Interpretation Comments POCT GLU (test code = 5087011557) 195 mg/dL 70-110 H Lab Interpretation (test code = Abnormal 47296-7) [facility] GLUCOSE (AUTOMATED)2022-05-16 22:19:26 Test Item Value Reference Range Interpretation Comments POCT GLU (test code = 6082462059) 195 mg/dL 70-110 H Lab Interpretation (test code = Abnormal 85668-0) [facility] GLUCOSE (AUTOMATED)2022-05-16 17:33:39 Test Item Value Reference Range Interpretation Comments POCT GLU (test code = 3567093390) 203 mg/dL 70-110 H Lab Interpretation (test code = Abnormal 56123-2) [facility] GLUCOSE (AUTOMATED)2022-05-16 17:33:39 Test Item Value Reference Range Interpretation Comments POCT GLU (test code = 0096507828) 203 mg/dL 70-110 H Lab Interpretation (test code = Abnormal 40316-0) [facility] WITHOUT [id number] 15:52:40 Test Item Value Reference Range Interpretation Comments WBC (test code = 6690-2) See_Comment [A utomated message] The system [employer] generated this result transmit maria del carmen reference range : 4.20 - 10.70 10*3/?L. The reference range was not used to interpret this result as normal/abnormal . RBC (test code = 789-8) See_Comment L [Au tomated message] The system [employer] generated this result transmit maria del carmen [...] 777-3) See_Comment [Au tomated message] The system [employer] (NIH) generated this result transmit maria del carmen reference range : 150 - 328 10*3/?L. The reference range was not used to interpret this result as normal/abnormal . MPV (test code = 9.5 fL 9.8-13.0 L 88513-3) RDW-CV (test code = 15.0 % 12.1-15.4 788-0) RDW-SD (test code = 47.1 fL 38.5-51.6 64933-4) NRBC x10^3 (test code = See_Comment [Au tomated message] 8774148747) The system [employer] (NIH) generated this result transmit maria del carmen reference range : 10*3/?L. The reference range was not used to interpret this result as normal/abnormal . NRBC/100 WBC (test code See_Comment [Au tomated message] = 6743035690) The system [facility] generated this result transmit maria del carmen reference range : 0.0 - 10.0 /100 WBC s. The reference r josep was not used to interpret this result as normal/abnormal . IPF % (test code = 2668332885) Lab Interpretation (test Abnormal code = 96091-0) [facility] WITHOUT [id number] 15:52:40 Test Item Value Reference Range Interpretation Comments WBC (test code = 6690-2) See_Comment [A utomated message] The system [facility] generated this result transmit maria del carmen reference range : 4.20 - 10.70 10*3/?L. The reference range was not used to interpret this result as normal/abnormal . RBC (test code = 789-8) See_Comment L [Au tomated message] The system [facility] generated this result transmit maria del carmen [...] 777-3) See_Comment [Au tomated message] The system [employer] generated this result transmit maria del carmen reference range : 150 - 328 10*3/?L. The reference range was not used to interpret this result as normal/abnormal . MPV (test code = 9.5 fL 9.8-13.0 L 25000-0) RDW-CV (test code = 15.0 % 12.1-15.4 788-0) RDW-SD (test code = 47.1 fL 38.5-51.6 59424-2) NRBC x10^3 (test code = See_Comment [Au tomated message] 5918116918) The system [employer] generated this result transmit maria del carmen reference range : 10*3/?L. The reference range was not used to interpret this result as normal/abnormal . NRBC/100 WBC (test code See_Comment [Au tomated message] = 6066495351) The system [employer] generated this result transmit maria del carmen reference range : 0.0 - 10.0 /100 WBC s. The reference r josep was not used to interpret this result as normal/abnormal . IPF % (test code = 5185055037) Lab Interpretation (test Abnormal code = 51507-2) [facility] GLUCOSE (AUTOMATED)2022-05-16 14:09:00 Test Item Value Reference Range Interpretation Comments POCT GLU (test code = 7181244411) 194 mg/dL 70-110 H Lab Interpretation (test code = Abnormal 93703-5) [facility] GLUCOSE (AUTOMATED)2022-05-16 14:09:00 Test Item Value Reference Range Interpretation Comments POCT GLU (test code = 6673048437) 194 mg/dL 70-110 H Lab Interpretation (test code = Abnormal 36684-1) [facility] Test Item Value Reference Range Interpretation Comments MAGNESIUM (test code = 0193244723) 1.5 mg/dL 1.7-2.4 L Lab Interpretation (test code = Abnormal 72534-6) [facility] 12:17:29 Test Item Value Reference Range Interpretation Comments MAGNESIUM (test code = 8689297319) 1.5 mg/dL 1.7-2.4 L Lab Interpretation (test code = Abnormal 16597-1) [facility] (NA, K, CL, CO2, GLUCOSE, BUN, CREATININE, CA)2022-05-16 12:17:28 Test Item Value Reference Range Interpretation Comments NA (test code = 134 mmol/L 135-145 L 2838756122) K (test code = 3.5 mmol/L 3.5-5.0 7319326940) CL (test code = 104 mmol/L 98-108 3703223507) CO2 TOTAL (test code = 27 mmol/L 23-31 9313110364) AGAP (test code = 2-16 6491050723) BUN (test code = 23 mg/dL 7-23 9485338889) GLUCOSE (test code = 179 mg/dL 70-110 H 0749541137) CREATININE (test code = 0.77 mg/dL 0.60-1.25 4190719547) CALCIUM (test code = 7.5 mg/dL 8.6-10.6 L 5821004740) eGFR (test code = mL/min/1.73m2 6652803686) PIPO (test code = PIPO) Association of [...] tests). Lab Interpretation Abnormal (test code = 27210-9) [facility] METABOLIC PANEL (NA, K, CL, CO2, GLUCOSE, BUN, CREATININE, CA)2022-05-16 12:17:28 Test Item Value Reference Range Interpretation Comments NA (test code = 134 mmol/L 135-145 L 3372952960) K (test code = 3.5 mmol/L 3.5-5.0 3306904047) CL (test code = 104 mmol/L 98-108 0047685971) CO2 TOTAL (test code = 27 mmol/L 23-31 4399791004) AGAP (test code = 2-16 4220021502) BUN (test code = 23 mg/dL 7-23 8350879451) GLUCOSE (test code = 179 mg/dL 70-110 H 6780660165) CREATININE (test code = 0.77 mg/dL 0.60-1.25 4190458707) CALCIUM (test code = 7.5 mg/dL 8.6-10.6 L 5734914467) eGFR (test code = mL/min/1.73m2 2969113669) PIPO (test code = PIPO) Association of [...] tests). Lab Interpretation Abnormal (test code = 13598-9) [facility] WITHOUT [id number] 11:41:44 Test Item Value Reference Range Interpretation Comments WBC (test code = 6690-2) See_Comment [A utomated message] The system [employer] generated this result transmit maria del carmen reference range : 4.20 - 10.70 10*3/?L. The reference range was not used to interpret this result as normal/abnormal . RBC (test code = 789-8) See_Comment L [Au tomated message] The system [employer] generated this result transmit maria del carmen [...] 777-3) See_Comment [Au tomated message] The system [employer] generated this result transmit maria del carmen reference range : 150 - 328 10*3/?L. The reference range was not used to interpret this result as normal/abnormal . MPV (test code = 9.6 fL 9.8-13.0 L 31119-7) RDW-CV (test code = 15.0 % 12.1-15.4 788-0) RDW-SD (test code = 47.2 fL 38.5-51.6 17840-3) NRBC x10^3 (test code = See_Comment [Au tomated message] 1683516976) The system [employer] generated this result transmit maria del carmen reference range : 10*3/?L. The reference range was not used to interpret this result as normal/abnormal . NRBC/100 WBC (test code See_Comment [Au tomated message] = 3093944388) The system [facility] generated this result transmit maria del carmen reference range : 0.0 - 10.0 /100 WBC s. The reference r josep was not used to interpret this result as normal/abnormal . IPF % (test code = 3679192222) Lab Interpretation (test Abnormal code = 13528-8) [facility] WITHOUT [id number] 11:41:44 Test Item Value Reference Range Interpretation Comments WBC (test code = 6690-2) See_Comment [A utomated message] The system [employer] generated this result transmit maria del carmen reference range : 4.20 - 10.70 10*3/?L. The reference range was not used to interpret this result as normal/abnormal . RBC (test code = 789-8) See_Comment L [Au tomated message] The system [employer] generated this result transmit maria del carmen [...] 777-3) See_Comment [Au tomated message] The system [employer] generated this result transmit maria del carmen reference range : 150 - 328 10*3/?L. The reference range was not used to interpret this result as normal/abnormal . MPV (test code = 9.6 fL 9.8-13.0 L 84111-9) RDW-CV (test code = 15.0 % 12.1-15.4 788-0) RDW-SD (test code = 47.2 fL 38.5-51.6 29537-3) NRBC x10^3 (test code = See_Comment [Au tomated message] 8348018649) The system [employer] generated this result transmit maria del carmen reference range : 10*3/?L. The reference range was not used to interpret this result as normal/abnormal . NRBC/100 WBC (test code See_Comment [Au tomated message] = 6663841738) The system [employer] generated this result transmit maria del carmen reference range : 0.0 - 10.0 /100 WBC s. The reference r josep was not used to interpret this result as normal/abnormal . IPF % (test code = 5712270844) Lab Interpretation (test Abnormal code = 56201-2) [facility] 22:32:10 Test Item Value Reference Range Interpretation Comments Height (test code = in 2541795516) Weight (test code = lbs 9771549079) Systolic BP (test mmHg code = 6687572749) Diastolic BP (test mmHg code = 4801778452) Heart Rate (test code bpm = 7349782351) Radiology Study observation (narrative) (test code = 82105-2) PIPO (test code = PIPO) ?Left?Ventricle: Left [...] mL of Lumason ultrasound enhancing agent used. [facility]15 22:32:10 Test Item Value Reference Range Interpretation Comments Height (test code = in 4670268120) Weight (test code = lbs 5607047863) Systolic BP (test mmHg code = 0713208246) Diastolic BP (test mmHg code = 0913774205) Heart Rate (test code bpm = 5708203594) Radiology Study observation (narrative) (test code = 11041-7) PIPO (test code = PIPO) ?Left?Ventricle: Left [...] mL of Lumason ultrasound enhancing agent used. [facility] WITHOUT [id number] 22:15:46 Test Item Value Reference Range Interpretation Comments WBC (test code = 6690-2) See_Comment [A utomated message] The system [employer] generated this result transmit maria del carmen reference range : 4.20 - 10.70 10*3/?L. The reference range was not used to interpret this result as normal/abnormal . RBC (test code = 789-8) See_Comment L [Au tomated message] The system [employer] generated this result transmit maria del carmen [...] 777-3) See_Comment [Au tomated message] The system [employer] generated this result transmit maria del carmen reference range : 150 - 328 10*3/?L. The reference range was not used to interpret this result as normal/abnormal . MPV (test code = 9.7 fL 9.8-13.0 L 53265-1) RDW-CV (test code = 15.2 % 12.1-15.4 788-0) RDW-SD (test code = 48.1 fL 38.5-51.6 68454-8) NRBC x10^3 (test code = See_Comment [Au tomated message] 7431656567) The system [employer] generated this result transmit maria del carmen reference range : 10*3/?L. The reference range was not used to interpret this result as normal/abnormal . NRBC/100 WBC (test code See_Comment [Au tomated message] = 1677141537) The system [employer] generated this result transmit maria del carmen reference range : 0.0 - 10.0 /100 WBC s. The reference r josep was not used to interpret this result as normal/abnormal . IPF % (test code = 6896823995) Lab Interpretation (test Abnormal code = 13707-8) [facility] WITHOUT [id number] 22:15:46 Test Item Value Reference Range Interpretation Comments WBC (test code = 6690-2) See_Comment [A utomated message] The system [employer] generated this result transmit maria del carmen reference range : 4.20 - 10.70 10*3/?L. The reference range was not used to interpret this result as normal/abnormal . RBC (test code = 789-8) See_Comment L [Au tomated message] The system [employer] generated this result transmit maria del carmen [...] 777-3) See_Comment [Au tomated message] The system [employer] generated this result transmit maria del carmen reference range : 150 - 328 10*3/?L. The reference range was not used to interpret this result as normal/abnormal . MPV (test code = 9.7 fL 9.8-13.0 L 65271-9) RDW-CV (test code = 15.2 % 12.1-15.4 788-0) RDW-SD (test code = 48.1 fL 38.5-51.6 84476-0) NRBC x10^3 (test code = See_Comment [Au tomated message] 9961592610) The system [employer] generated this result transmit maria del carmen reference range : 10*3/?L. The reference range was not used to interpret this result as normal/abnormal . NRBC/100 WBC (test code See_Comment [Au tomated message] = 1609487771) The system [employer] generated this result transmit maria del carmen reference range : 0.0 - 10.0 /100 WBC s. The reference r josep was not used to interpret this result as normal/abnormal . IPF % (test code = 2405810360) Lab Interpretation (test Abnormal code = 64530-9) [facility] GLUCOSE (AUTOMATED)2022-05-15 22:09:19 Test Item Value Reference Range Interpretation Comments POCT GLU (test code = 9989412322) 208 mg/dL 70-110 H Lab Interpretation (test code = Abnormal 40403-2) [facility] GLUCOSE (AUTOMATED)2022-05-15 22:09:19 Test Item Value Reference Range Interpretation Comments POCT GLU (test code = 3822896946) 208 mg/dL 70-110 H Lab Interpretation (test code = Abnormal 77160-4) [facility] GLUCOSE (AUTOMATED)2022-05-15 17:51:24 Test Item Value Reference Range Interpretation Comments POCT GLU (test code = 2579180842) 227 mg/dL 70-110 H Lab Interpretation (test code = Abnormal 78288-9) [facility] GLUCOSE (AUTOMATED)2022-05-15 17:51:24 Test Item Value Reference Range Interpretation Comments POCT GLU (test code = 1479920030) 227 mg/dL 70-110 H Lab Interpretation (test code = Abnormal 29581-6) [facility] RBC (in units), 1 Units 2022-05-15 14:38:44 Test Item Value Reference Range Interpretation Comments Cross Match Result Compatible (test code = 4409) ISBT Blood Type Code (test code = 686494) Unit Blood Type (test O Pos code = 4410) Unit Number (test [id number] code = 4411) Blood Expiration Date & Time (test code = 769180) Status Information Issued (test code = 4412) Product Red Blood Cells Identification (test code = 4413) Product Code (test [id number] Performed at [facility] code = 4414) Laboratory Services - [facility] Blood [address] [address]Xajy Free: [phone] A No. [id number] [facility] RBC (in units), 1 Units 2022-05-15 14:38:44 Test Item Value Reference Range Interpretation Comments Cross Match Result Compatible (test code = 4409) ISBT Blood Type Code (test code = 120404) Unit Blood Type (test O Pos code = 4410) Unit Number (test [id number] code = 4411) Blood Expiration Date & Time (test code = 748152) Status Information Issued (test code = 4412) Product Red Blood Cells Identification (test code = 4413) Product Code (test [id number] Performed at [facility] code = 4414) Laboratory Services - [facility] Blood [address] [address]Gtkh Free: [phone] A No. [id number] [facility] GLUCOSE (AUTOMATED)2022-05-15 13:49:03 Test Item Value Reference Range Interpretation Comments POCT GLU (test code = 6030501777) 236 mg/dL 70-110 H Lab Interpretation (test code = Abnormal 81448-4) [facility] GLUCOSE (AUTOMATED)2022-05-15 13:49:03 Test Item Value Reference Range Interpretation Comments POCT GLU (test code = 6424114444) 236 mg/dL 70-110 H Lab Interpretation (test code = Abnormal 87650-4) [facility] METABOLIC PANEL (NA, K, CL, CO2, GLUCOSE, BUN, CREATININE, CA)2022-05-15 12:06:27 Test Item Value Reference Range Interpretation Comments NA (test code = 133 mmol/L 135-145 L 1192712818) K (test code = 4.1 mmol/L 3.5-5.0 5830226861) CL (test code = 102 mmol/L 98-108 4540988705) CO2 TOTAL (test code = 25 mmol/L 23-31 9854939644) AGAP (test code = 2-16 9926095494) BUN (test code = 46 mg/dL 7-23 H 8139998478) GLUCOSE (test code = 171 mg/dL 70-110 H 1373656214) CREATININE (test code = 1.02 mg/dL 0.60-1.25 8811131846) CALCIUM (test code = 7.9 mg/dL 8.6-10.6 L 6224138775) eGFR (test code = mL/min/1.73m2 4504283271) PIPO (test code = PIPO) Association of [...] tests). Lab Interpretation Abnormal (test code = 74379-2) [facility] 12:06:27 Test Item Value Reference Range Interpretation Comments MAGNESIUM (test code = 7423783348) 1.7 mg/dL 1.7-2.4 Lab Interpretation (test code = Normal 41054-6) [facility] (NA, K, CL, CO2, GLUCOSE, BUN, CREATININE, CA)2022-05-15 12:06:27 Test Item Value Reference Range Interpretation Comments NA (test code = 133 mmol/L 135-145 L 8652116381) K (test code = 4.1 mmol/L 3.5-5.0 5945155311) CL (test code = 102 mmol/L 98-108 6826827414) CO2 TOTAL (test code = 25 mmol/L 23-31 0369461707) AGAP (test code = 2-16 7621882847) BUN (test code = 46 mg/dL 7-23 H 9183988258) GLUCOSE (test code = 171 mg/dL 70-110 H 8903187400) CREATININE (test code = 1.02 mg/dL 0.60-1.25 [id number]) CALCIUM (test code = 7.9 mg/dL 8.6-10.6 L 0714400660) eGFR (test code = mL/min/1.73m2 8660677516) PIPO (test code = PIPO) Association of [...] tests). Lab Interpretation Abnormal (test code = 71788-0) [facility] 12[facility]06:27 Test Item Value Reference Range Interpretation Comments MAGNESIUM (test code = 5459975336) 1.7 mg/dL 1.7-2.4 Lab Interpretation (test code = Normal 59035-8) [facility] WITHOUT [id number] 11:24:49 Test Item Value Reference Range Interpretation Comments WBC (test code = 6690-2) See_Comment [A utomated message] The system [employer] generated this result transmit maria del carmen reference range : 4.20 - 10.70 10*3/?L. The reference range was not used to interpret this result as normal/abnormal . RBC (test code = 789-8) See_Comment L [Au tomated message] The system [employer] generated this result transmit maria del carmen [...] 777-3) See_Comment [Au tomated message] The system [employer] generated this result transmit maria del carmen reference range : 150 - 328 10*3/?L. The reference range was not used to interpret this result as normal/abnormal . MPV (test code = 10.0 fL 9.8-13.0 67534-9) RDW-CV (test code = 14.4 % 12.1-15.4 788-0) RDW-SD (test code = 46.3 fL 38.5-51.6 00330-8) NRBC x10^3 (test code = See_Comment [Au tomated message] 5400398575) The system [employer] generated this result transmit maria del carmen reference range : 10*3/?L. The reference range was not used to interpret this result as normal/abnormal . NRBC/100 WBC (test code See_Comment [Au tomated message] = 9308009870) The system [facility] generated this result transmit maria del carmen reference range : 0.0 - 10.0 /100 WBC s. The reference r josep was not used to interpret this result as normal/abnormal . IPF % (test code = 8031861691) Lab Interpretation (test Abnormal code = 93965-4) [facility] WITHOUT [id number] 11:24:49 Test Item Value Reference Range Interpretation Comments WBC (test code = 6690-2) See_Comment [A utomated message] The system [employer] generated this result transmit maria del carmen reference range : 4.20 - 10.70 10*3/?L. The reference range was not used to interpret this result as normal/abnormal . RBC (test code = 789-8) See_Comment L [Au tomated message] The system [employer] generated this result transmit maria del carmen [...] 777-3) See_Comment [Au tomated message] The system [employer] generated this result transmit maria del carmen reference range : 150 - 328 10*3/?L. The reference range was not used to interpret this result as normal/abnormal . MPV (test code = 10.0 fL 9.8-13.0 57473-8) RDW-CV (test code = 14.4 % 12.1-15.4 788-0) RDW-SD (test code = 46.3 fL 38.5-51.6 03013-7) NRBC x10^3 (test code = See_Comment [Au tomated message] 3628278667) The system [employer] generated this result transmit maria del carmen reference range : 10*3/?L. The reference range was not used to interpret this result as normal/abnormal . NRBC/100 WBC (test code See_Comment [Au tomated message] = 4130978725) The system [facility] generated this result transmit maria del carmen reference range : 0.0 - 10.0 /100 WBC s. The reference r josep was not used to interpret this result as normal/abnormal . IPF % (test code = 6065676819) Lab Interpretation (test Abnormal code = 07923-5) [facility] (Total Cholesterol, Triglycerides, HDL) - [id number] 04:46:50 Test Item Value Reference Range Interpretation Comments CHOL (test code = 160 mg/dL 120-200 6470506418) HDL (test code = 33 mg/dL See_Comment L [Automated message] 7149659068) The system [employer] generated this result transmit maria del carmen reference range : >=40. The refer ence range was not u sed to interpret th is result as normal/abnormal . HDLC RATIO (test code = See_Comment [Au tomated message] 6232227239) The system [employer] generated this result transmit maria del carmen reference range : <=5.0. The refe rence range was not u sed to interpret th is result as normal/abnormal . TRIG (test code = 215 mg/dL 30-170 H 5425836577) LDL CHOL (test code = 84 mg/dL See_Comment [Auto mated message] 70814-6) The system [facility] [employer] generated this result transmit maria del carmen reference range : <=160. The refe rence range was not u sed to interpret th is result as normal/abnormal . VLDL (test code = 43 mg/dL 5-60 3307355383) Lab Interpretation (test Abnormal code = 22225-0) [facility] (Total Cholesterol, Triglycerides, HDL) - [id number] 04:46:50 Test Item Value Reference Range Interpretation Comments CHOL (test code = 160 mg/dL 120-200 2047547763) HDL (test code = 33 mg/dL See_Comment L [Automated message] 3648448139) The system [employer] generated this result transmit maria del carmen reference range : >=40. The refer ence range was not u sed to interpret th is result as normal/abnormal . HDLC RATIO (test code = See_Comment [Au tomated message] 8220015859) The system [employer] generated this result transmit maria del carmen reference range : <=5.0. The refe rence range was not u sed to interpret th is result as normal/abnormal . TRIG (test code = 215 mg/dL 30-170 H 9637353847) LDL CHOL (test code = 84 mg/dL See_Comment [Auto mated message] 27747-4) The system [employer] generated this result transmit maria del carmen reference range : <=160. The refe rence range was not u sed to interpret th is result as normal/abnormal . VLDL (test code = 43 mg/dL 5-60 4178789602) Lab Interpretation (test Abnormal code = 30659-8) [facility] WITHOUT [id number] 04:40:50 Test Item Value Reference Range Interpretation Comments WBC (test code = 6690-2) See_Comment [A utomated message] The system [employer] generated this result transmit maria del carmen reference range : 4.20 - 10.70 10*3/?L. The reference range was not used to interpret this result as normal/abnormal . RBC (test code = 789-8) See_Comment L [Au tomated message] The system [employer] generated this result transmit maria del carmen [...] 777-3) See_Comment [Au tomated message] The system [employer] generated this result transmit maria del carmen reference range : 150 - 328 10*3/?L. The reference range was not used to interpret this result as normal/abnormal . MPV (test code = 9.9 fL 9.8-13.0 99771-4) RDW-CV (test code = 14.5 % 12.1-15.4 788-0) RDW-SD (test code = 47.1 fL 38.5-51.6 38701-0) NRBC x10^3 (test code = See_Comment [Au tomated message] 1956919655) The system [employer] generated this result transmit maria del carmen reference range : 10*3/?L. The reference range was not used to interpret this result as normal/abnormal . NRBC/100 WBC (test code See_Comment [Au tomated message] = 0443688421) The system [employer] generated this result transmit maria del carmen reference range : 0.0 - 10.0 /100 WBC s. The reference r josep was not used to interpret this result as normal/abnormal . IPF % (test code = 5954211886) Lab Interpretation (test Abnormal code = 65744-9) [facility] WITHOUT [id number] 04:40:50 Test Item Value Reference Range Interpretation Comments WBC (test code = 6690-2) See_Comment [A utomated message] The system [employer] generated this result transmit maria del carmen reference range : 4.20 - 10.70 10*3/?L. The reference range was not used to interpret this result as normal/abnormal . RBC (test code = 789-8) See_Comment L [Au tomated message] The system [employer] generated this result transmit maria del carmen [...] 777-3) See_Comment [Au tomated message] The system [employer] (NIH) generated this result transmit maria del carmen reference range : 150 - 328 10*3/?L. The reference range was not used to interpret this result as normal/abnormal . MPV (test code = 9.9 fL 9.8-13.0 61630-2) RDW-CV (test code = 14.5 % 12.1-15.4 788-0) RDW-SD (test code = 47.1 fL 38.5-51.6 40763-4) NRBC x10^3 (test code = See_Comment [Au tomated message] 2847894696) The system [employer] (NIH) generated this result transmit maria del carmen reference range : 10*3/?L. The reference range was not used to interpret this result as normal/abnormal . NRBC/100 WBC (test code See_Comment [Au tomated message] = 2409852794) The system [facility] generated this result transmit maria del carmen reference range : 0.0 - 10.0 /100 WBC s. The reference r josep was not used to interpret this result as normal/abnormal . IPF % (test code = 4530739448) Lab Interpretation (test Abnormal code = 74915-3) [facility] WITHOUT [id number] 22:20:51 Test Item Value Reference Range Interpretation Comments WBC (test code = 6690-2) See_Comment [A utomated message] The system [facility] generated this result transmit maria del carmen reference range : 4.20 - 10.70 10*3/?L. The reference range was not used to interpret this result as normal/abnormal . RBC (test code = 789-8) See_Comment L [Au tomated message] The system [facility] generated this result transmit maria del carmen [...] 777-3) See_Comment [Au tomated message] The system [facility] generated this result transmit maria del carmen reference range : 150 - 328 10*3/?L. The reference range was not used to interpret this result as normal/abnormal . MPV (test code = 9.9 fL 9.8-13.0 41641-1) RDW-CV (test code = 14.5 % 12.1-15.4 788-0) RDW-SD (test code = 47.2 fL 38.5-51.6 20259-8) NRBC x10^3 (test code = See_Comment [Au tomated message] 6013613009) The system [facility] generated this result transmit maria del carmen reference range : 10*3/?L. The reference range was not used to interpret this result as normal/abnormal . NRBC/100 WBC (test code See_Comment [Au tomated message] = 6013602112) The system [facility] generated this result transmit maria del carmen reference range : 0.0 - 10.0 /100 WBC s. The reference r josep was not used to interpret this result as normal/abnormal . IPF % (test code = 0701804575) Lab Interpretation (test Abnormal code = 67116-8) [facility] WITHOUT [id number] 22:20:51 Test Item Value Reference Range Interpretation Comments WBC (test code = 6690-2) See_Comment [A utomated message] The system [facility] generated this result transmit maria del carmen reference range : 4.20 - 10.70 10*3/?L. The reference range was not used to interpret this result as normal/abnormal . RBC (test code = 789-8) See_Comment L [Au tomated message] The system [facility] generated this result transmit maria del carmen [...] 777-3) See_Comment [Au tomated message] The system [employer] generated this result transmit maria del carmen reference range : 150 - 328 10*3/?L. The reference range was not used to interpret this result as normal/abnormal . MPV (test code = 9.9 fL 9.8-13.0 24686-9) RDW-CV (test code = 14.5 % 12.1-15.4 788-0) RDW-SD (test code = 47.2 fL 38.5-51.6 38698-5) NRBC x10^3 (test code = See_Comment [Au tomated message] 3640276106) The system [employer] generated this result transmit maria del carmen reference range : 10*3/?L. The reference range was not used to interpret this result as normal/abnormal . NRBC/100 WBC (test code See_Comment [Au tomated message] = 7828536190) The system [employer] generated this result transmit maria del carmen reference range : 0.0 - 10.0 /100 WBC s. The reference r josep was not used to interpret this result as normal/abnormal . IPF % (test code = 1061711851) Lab Interpretation (test Abnormal code = 46482-1) [facility] ([facility] Only)2022-05-14 21:04:17 Test Item Value Reference Range Interpretation Comments ABO & RH (test code O Positive Performe d at [facility] = 20) Laboratory [facility] [place] [id number] Free: [phone] A No. [id number] [facility] Confirmation (Lab Only)2022-05-14 21:04:17 Test Item Value Reference Range Interpretation Comments ABO & RH (test code O Positive Performe d at [facility] = 20) Laboratory [facility] [address] [place] [address] [id number] Free: [phone] A No. [id number] [facility] and Screen - ONCE [id number] 19:35:37 Test Item Value Reference Range Interpretation Comments ABO & RH (test code O POSITIVE Performe d at [facility] = 20) Laboratory [facility] Blood [facility] [address] [place] [address] [id number] Free: [phone] A No. [id number] IAT (test code = Negative Performed a t [facility] 1185) Laboratory [facility] Blood [facility] [address] [place] [address] [id number] Free: [phone] A No. [id number] [facility] and Screen - ONCE [id number] 19:35:37 Test Item Value Reference Range Interpretation Comments ABO & RH (test code O POSITIVE Performe d at [facility] = 20) Laboratory [facility] Blood [facility] [address] [place] [address] [id number] Free: [phone] A No. [id number] IAT (test code = Negative Performed a t [facility] 1185) Laboratory [facility] Blood [facility] [address] [place] [address] [id number] Free: [phone] A No. [id number] [facility] GLUCOSE (AUTOMATED)2022-05-14 19:01:40 Test Item Value Reference Range Interpretation Comments POCT GLU (test code = 9404033718) 199 mg/dL 70-110 H Lab Interpretation (test code = Abnormal 34071-7) [facility] GLUCOSE (AUTOMATED)2022-05-14 19:01:40 Test Item Value Reference Range Interpretation Comments POCT GLU (test code = 9449844874) 199 mg/dL 70-110 H Lab Interpretation (test code = Abnormal 87483-6) [facility] GLUCOSE (AUTOMATED)2022-05-14 15:51:56 Test Item Value Reference Range Interpretation Comments POCT GLU (test code = 7410898814) 243 mg/dL 70-110 H Lab Interpretation (test code = Abnormal 37336-0) [facility]14 15:51:56 Test Item Value Reference Range Interpretation Comments POCT GLU (test code = 3348750289) 243 mg/dL 70-110 H Lab Interpretation (test code = Abnormal 63541-6) [facility]"
--- NOTE | 2023-03-22 14:20 | RAD REPORT ---
EXAM DESCRIPTION: RADChest Single View03/22/2023 2:09 pm CLINICAL HISTORY: FEVER COMPARISON: Chest Single View dated 05/13/2022; Chest Single View dated 04/24/2022; Chest Single Vie w dated 04/23/2022; Chest Single View dated 04/22/2022 TECHNIQUE: Portable AP view of the chest. FINDINGS: Patchy left basilar airspace opacities. No pneumothorax or effusion. The cardiomediastina l contours are unremarkable. IMPRESSION: Patchy left basilar airspace opacities, may relate to atelectasis or pneumonia.
--- NOTE | 2023-03-22 14:29 | RAD REPORT ---
EXAM DESCRIPTION: RAD - Foot Right 3 View - 03/22/2023 2:09 pm CLINICAL HISTORY: toe pain;Swelling COMPARISON: Foot Left 3 View dated 09/23/2022; Chest Single View dated 03/22/2023 TECHNIQUE: Right foot, 3 views. FINDINGS: Soft tissue irregularity and laceration along the first digit with adjacent soft tissue sw elling. Cortical irregularity and deformity along the proximal aspect of the second digit middle phalanx, may relate to a fracture of indeterminate age. No dislocation or periosteal reaction. No air or foreign body in the soft tissues. IMPRESSION: Fracture of indeterminate age at the base of the second digit middle phalanx. Soft tissue irregularity and laceration of the big toe.
[2023-03-22 14:59] LABS: Hematocrit 25.6 % (39.6-49.0); Lymphocytes % 12.6 % (15.3-44.8); MCV 85.1 fL (80-100); MPV 8.1 fL (7.6-11.3); Platelets 259 thou/uL (152-406); RBC Red Blood Cell Count 3.01 M/uL (4.33-5.43)
[2023-03-22 15:08] LABS: Albumin 3.5 g/dL (3.4-5.0); Bilirubin Total 0.3 mg/dL (0.2-1.0); Potassium 3.4 mEq/L (3.5-5.1); Protein, Total 7.5 g/dL (6.4-8.2); Troponin High Sensitivity 3.5 pg/mL (<58.9)
[2023-03-22 15:12] LABS: Protime INR 0.85
[2023-03-22] MEDS ORDERED: HYDROCODONE/APAP 5/325 MG TAB ONE (15:17)
[2023-03-22] MEDS ORDERED: NA CHLORIDE 0.9% 1,000 ML ONE (16:13)
[2023-03-22] MEDS ORDERED: NA CHLORIDE 0.9% 100 ML ONE (16:14)
[2023-03-22] MEDS ORDERED: CEFEPIME 1 GM/VIAL ONE (16:14)
[2023-03-22 16:31] LABS: Specific Gravity 1.008 (1.005-1.030); Urine Bacteria <20 /HPF (<20); Urine Bilirubin NEGATIVE (Negative); Urine Blood Negative (Negative); Urine Clarity Clear (Clear); Urine Color Colorless (Yellow); Urine Glucose 2+ (Negative); Urine Protein TRACE (Negative); Urine RBC <5 /HPF (None Seen); Urine Urobilinogen Normal (Normal)
--- NOTE | 2023-03-22 17:50 | ER ---
Nurse's Notes [facility] Name: Thom Wright Age: 62 yrs Sex: Male : 1960 Arrival Date: 03/22/2023 Time: 12:52 Bed 20 Private MD: Diagnosis: Pneumonia, unspecified organism;Pain in unspecified lower leg;Hypotension, unspecified Presentation: 03/22 13:10 Chief complaint: EMS states: toned out by home health for low BP, nurse reported eh3 systolic below 70. EMS reports BP of 101/60 on arrival to home. Pt c/o reynaldo leg pain and injury to right big toe. Last EMS BP 134/79 and BGL 258. Coronavirus screen: Vaccine status: Patient reports receiving the 2nd dose of the covid vaccine. Ebola Screen: No symptoms or risks identified at this time. Initial Sepsis Screen: Does the patient meet any 2 criteria? No. Patient's initial sepsis screen is negative. Does the patient have a suspected source of infection? No. Patient's initial sepsis screen is negative. Risk Assessment: Do you want to hurt yourself or someone else? Patient reports no desire to harm self or others. Onset of symptoms was March 22, 2023. 13:10 Method Of Arrival: EMS: [place] [address] 13:10 Acuity: SONIA 3 eh3 Triage Assessment: 13:12 General: Appears in no apparent distress. uncomfortable, Behavior is calm, cooperative, eh3 appropriate for age. Pain: Complains of pain in right leg and left leg. Neuro: Level of Consciousness is awake, alert, obeys commands, Oriented to person, place, time, situation. Cardiovascular: Capillary refill < 3 seconds Patient's skin is warm and dry. Rhythm is irregular. Respiratory: Airway is patent Respiratory effort is even, unlabored, Respiratory pattern is regular, symmetrical. GI: Abdomen is round. Derm: Skin is pink, warm \T\ dry. Wound noted right first toe Wound is skin tear with bruising, not bleeding. Musculoskeletal: Circulation, motion, and sensation intact. Historical: - Allergies: 13:12 NKDA; eh3 - Home Meds: 13:57 atorvastatin 40 mg oral tablet daily [Active]; clopidogrel 75 mg oral tablet daily eh3 [Active]; losartan 100 mg oral tablet daily [Active]; benzonatate 100 mg oral capsule 1 cap 3 times per day [Active]; cilostazol 100 mg oral tablet 2 times per day [Active]; dapaglifloz propaned-metformin 10-1,000 mg oral tablet,immed \T\ ext release,biphasic 24hr daily [Active]; furosemide 40 mg Oral tablet 2 times per day [Active]; hydrocodone-acetaminophen 5-325 mg Oral tablet 1 tab nightly as needed for pain [Active]; levothyroxine 50 mcg capsule daily [Active]; metoprolol tartrate 50 mg Oral tablet 2 times per day [Active]; pantoprazole 40 mg oral tablet, delayed release (enteric coated) 2 times per day [Active]; trazodone 50 mg oral tablet 1 tab every day at bedtime [Active]; - PMHx: 13:12 COPD; CVA; diabetes mellitus; Hypertensive disorder; [place]; Pancreatitis; peripheral eh3 vascular disease; stent; stroke ( deficit left side paralysis); - PSHx: 13:12 Carotid endarterectomy; Femoral bypass; eh3 - Immunization history:: Adult Immunizations up to date. - Social history:: Smoking status: Patient reports the use of cigarette tobacco products, smokes two packs cigarettes per day. Patient/guardian denies using alcohol. Screenin:14 [facility] ED Fall Risk Assessment (Adult) Score/Fall Risk Level 0 - 2 = Low Risk. Abuse 3 screen: Denies threats or abuse. Denies injuries from another. Nutritional screening: No deficits noted. Tuberculosis screening: No symptoms or risk factors identified. Assessment: 13:14 Reassessment: See triage assessment. 3 13:55 Reassessment: Iv inserted by JENNIFER Fuller. Inside lab called to collect blood samples. 3 14:00 Reassessment: Patient appears in no apparent distress at this time. Patient and/or 3 family updated on plan of care and expected duration. Pain level reassessed. Patient is alert, oriented x 3, equal unlabored respirations, skin warm/dry/pink. 15:00 Reassessment: Patient appears in no apparent distress at this time. Patient and/or 3 family updated on plan of care and expected duration. Pain level reassessed. Patient is alert, oriented x 3, equal unlabored respirations, skin warm/dry/pink. 16:00 Reassessment: Patient appears in no apparent distress at this time. Patient and/or eh3 family updated on plan of care and expected duration. Pain level reassessed. Patient is alert, oriented x 3, equal unlabored respirations, skin warm/dry/pink. 17:00 Reassessment: Patient appears in no apparent distress at this time. Patient and/or eh3 family updated on plan of care and expected duration. Pain level reassessed. Patient is alert, oriented x 3, equal unlabored respirations, skin warm/dry/pink. 17:31 Reassessment: No changes from previously documented assessment. Patient and/or family 3 updated on plan of care and expected duration. Pain level reassessed. 17:50 Reassessment: Pt discharged pending completion of NS bolus per provider, approx 250 mL 3 remains. Vital Signs: 13:10 BP 135 / 72; Pulse 77; Resp 18; Temp 98.2(O); Pulse Ox 92% on R/A; Weight 91.17 kg; 3 Height 6 ft. 0 in. ; 13:30 BP 169 / 69; Pulse 79; Resp 19; Pulse Ox 97% on R/A; eh3 14:00 BP 162 / 71; Pulse 82; Resp 17; Pulse Ox 99% on R/A; eh3 14:30 BP 141 / 51; Pulse 79; Resp 17; Pulse Ox 99% on R/A; eh3 15:00 BP 121 / 96; Pulse 67; Resp 16; Pulse Ox 98% on R/A; eh3 15:30 BP 138 / 79; Pulse 83; Resp 20; Pulse Ox 99% on R/A; eh3 16:00 BP 145 / 53; Pulse 76; Resp 20; Pulse Ox 100% on R/A; eh3 16:30 BP 128 / 74; Pulse 78; Resp 19; Pulse Ox 99% on R/A; eh3 17:00 BP 132 / 84; Pulse 85; Resp 20; Pulse Ox 99% on R/A; eh3 13:10 Body Mass Index 27.26 (91.17 kg, 182.88 cm) [facility] ED Course: 13:10 Patient arrived in ED. 3 13:12 Triage completed. 3 13:12 Arm band placed on. 3 13:14 Royce Forrester MD is Attending Physician. rt 13:14 Patient has correct armband on for positive identification. Bed in low position. Call eh3 light in reach. Side rails up X2. Provided Education on: Use of call liao. Client placed on continuous cardiac and pulse oximetry monitoring. NIBP monitoring applied. 13:17 Attending Physician role handed off by Royce Forrester MD ci 13:17 Na Mojica is Attending Physician. ci 13:49 Sophie Jacobs, SALLEI is Primary Nurse. eh3 13:56 EKG done, by ED staff, reviewed by Na Mojica. Inserted saline lock: 20 gauge em1 in right hand, using aseptic technique. 14:10 Missed attempt(s): 22 gauge in right antecubital area. Bleeding controlled, band aid eh3 applied, catheter tip intact. 14:11 Chest Single View XRAY In Process Unspecified. EDMS 14:11 XRAY Foot RIGHT 3 View In Process Unspecified. EDMS 14:19 Wound care: to laceration located on right first toe was cleaned with Hibiclens, eh3 irrigated with normal saline, dressed with Neosporin, band aid. 14:42 Inserted saline lock: 20 gauge in right antecubital area, using aseptic technique. kc6 Blood collected. 15:41 Cleaned of incontinence. Linen changed. eh3 15:43 pt sister called to leave her number for a ride home. [phone]. bd 17:59 No provider procedures requiring assistance completed. eh3 18:27 IV discontinued, intact, bleeding controlled, No redness/swelling at site. Pressure eh3 dressing applied. Administered Medications: 15:22 Drug: HYDROcodone-acetaminophen PO 5 mg-325 mg 1 tabs PO once Route: PO; eh3 16:36 Follow up: Response: No adverse reaction eh3 16:36 Drug: NS 0.9% IV 1000 ml IV at 1000 ml once Route: IV; Rate: 1000 ml; Site: right hand; eh3 18:25 Follow up: IV Status: Completed infusion; IV Intake: 1000ml eh3 16:36 Drug: Cefepime IVPB 1 grams IVPB at 200 ml/hr once over 30 mins; (mix in NS 100 mL) eh3 Route: IVPB; Rate: 200 ml/hr; Infused Over: 30 mins; Site: right hand; 17:06 Follow up: Response: No adverse reaction; IV Status: Completed infusion; IV Intake: eh3 100ml Medication: 17:59 VIS not applicable for this client. eh3 Intake: 17:06 IV: 100ml; Total: 100ml. eh3 18:25 IV: 1000ml; Total: 1100ml. eh3 Outcome: 17:49 Discharge ordered by . ci 18:27 Discharged to home via wheelchair, with family, eh3 18:27 Condition: stable 18:27 Discharge instructions given to patient, Instructed on discharge instructions, follow up and referral plans. medication usage, Demonstrated understanding of instructions, follow-up care, medications, Prescriptions given X 1, 18:27 Patient left the ED. eh3 Signatures: Dispatcher [employer] EDMS Radha Stephenson Eric em1 Sophie Jacobs RN RN eh3 Tosin Heard RN RN kc6 Royce Forrester MD MD rt Na Mojica
--- NOTE | 2023-03-22 17:50 | EDPHYS ---
Physician Documentation [facility] Name: Thom Wright Age: 62 yrs Sex: Male : 1960 Arrival Date: 03/22/2023 Time: 12:52 Bed 20 [facility] MD: ED Physician Na Mojica HPI: 03/22 16:48 This 62 yrs old Male presents to ER via EMS with complaints of Leg Pain, Blood Pressure ci Problem. 16:48 This 62 yrs old Male presents to ER via EMS with complaints of Leg Pain, Blood Pressure ci Problem. 16:48 Patient is a 62-year-old male with PMH COPD, CVA, DM 2, CKD, hypertension, OK, ci peripheral vascular disease who presents to the ED with chief complaint of hypertension. Patient's home health nurse checked his blood pressure and SBP was in the 70s. Upon EMS arrival patient's blood pressure has been 135. Patient's only complaint at this time is chronic bilateral leg pain. He denies any trauma/injury. Patient has a blister to the right toe.. 17:46 The patient has experienced similar episodes in the past. ci Historical: - Allergies: 13:12 NKDA; eh3 - Home Meds: 13:57 atorvastatin 40 mg oral tablet daily [Active]; clopidogrel 75 mg oral tablet daily eh3 [Active]; losartan 100 mg oral tablet daily [Active]; benzonatate 100 mg oral capsule 1 cap 3 times per day [Active]; cilostazol 100 mg oral tablet 2 times per day [Active]; dapaglifloz propaned-metformin 10-1,000 mg oral tablet,immed \T\ ext release,biphasic 24hr daily [Active]; furosemide 40 mg Oral tablet 2 times per day [Active]; hydrocodone-acetaminophen 5-325 mg Oral tablet 1 tab nightly as needed for pain [Active]; levothyroxine 50 mcg capsule daily [Active]; metoprolol tartrate 50 mg Oral tablet 2 times per day [Active]; pantoprazole 40 mg oral tablet, delayed release (enteric coated) 2 times per day [Active]; trazodone 50 mg oral tablet 1 tab every day at bedtime [Active]; - PMHx: 13:12 COPD; CVA; diabetes mellitus; Hypertensive disorder; [place]; Pancreatitis; peripheral eh3 vascular disease; stent; stroke ( deficit left side paralysis); - PSHx: 13:12 Carotid endarterectomy; Femoral bypass; eh3 - Immunization history:: Adult Immunizations up to date. - Social history:: Smoking status: Patient reports the use of cigarette tobacco products, smokes two packs cigarettes per day. Patient/guardian denies using alcohol. ROS: 16:48 Constitutional: Negative for body aches, fatigue, fever, ci 16:48 Cardiovascular: Negative for chest pain, edema, orthopnea, palpitations, 16:48 Respiratory: Negative for dyspnea on exertion, hemoptysis, orthopnea, shortness of breath, 16:48 Abdomen/GI: Negative for abdominal pain, nausea, vomiting, and diarrhea, 16:48 Back: Negative for injury or acute deformity, decreased range of motion, pain at rest, 16:48 MS/extremity: Positive for pain, 16:48 Skin: Positive for Blister, Exam: 16:48 Constitutional: This is a well developed, well nourished patient who is awake, alert, ci and in no acute distress. Head/Face: Normocephalic, atraumatic. Eyes: Pupils equal round and reactive to light, extra-ocular motions intact. Lids and lashes normal. Conjunctiva and sclera are non-icteric and not injected. Cornea within normal limits. Periorbital areas with no swelling, redness, or edema. ENT: Nares patent. No nasal discharge, no septal abnormalities noted. Tympanic membranes are normal and external auditory canals are clear. Oropharynx with no redness, swelling, or masses, exudates, or evidence of obstruction, uvula midline. Mucous membranes moist. Neck: Trachea midline, no thyromegaly or masses palpated, and no cervical lymphadenopathy. Supple, full range of motion without nuchal rigidity, or vertebral point tenderness. No Meningismus. Chest/axilla: Normal chest wall appearance and motion. Nontender with no deformity. No lesions are appreciated. Cardiovascular: Regular rate and rhythm with a normal S1 and S2. No gallops, murmurs, or rubs. No JVD. No pulse deficits. Respiratory: Lungs have equal breath sounds bilaterally, clear to auscultation and percussion. No rales, rhonchi or wheezes noted. No increased work of breathing, no retractions or nasal flaring. Abdomen/GI: Soft, non-tender, with normal bowel sounds. No distension or tympany. No guarding or rebound. No evidence of tenderness throughout. Back: No spinal tenderness. No costovertebral tenderness. Full range of motion. Skin: Warm, dry with normal turgor. Normal color with no rashes, no lesions, and no evidence of cellulitis. Blister to right great toe MS/ Extremity: Pulses equal 1+ bilaterally, no cyanosis. Neurovascular intact. Full, normal range of motion. Neuro: Awake and alert, GCS 15, oriented to person, place, time, and situation. Cranial nerves II-XII grossly intact. Motor strength 5/5 in all extremities. Sensory grossly intact. Cerebellar exam normal. Normal gait. Psych: Awake, alert, with orientation to person, place and time. Behavior, mood, and affect are within normal limits. Vital Signs: 13:10 BP 135 / 72; Pulse 77; Resp 18; Temp 98.2(O); Pulse Ox 92% on R/A; Weight 91.17 kg; 3 Height 6 ft. 0 in. ; 13:30 BP 169 / 69; Pulse 79; Resp 19; Pulse Ox 97% on R/A; eh3 14:00 BP 162 / 71; Pulse 82; Resp 17; Pulse Ox 99% on R/A; eh3 14:30 BP 141 / 51; Pulse 79; Resp 17; Pulse Ox 99% on R/A; eh3 15:00 BP 121 / 96; Pulse 67; Resp 16; Pulse Ox 98% on R/A; eh3 15:30 BP 138 / 79; Pulse 83; Resp 20; Pulse Ox 99% on R/A; eh3 16:00 BP 145 / 53; Pulse 76; Resp 20; Pulse Ox 100% on R/A; eh3 16:30 BP 128 / 74; Pulse 78; Resp 19; Pulse Ox 99% on R/A; eh3 17:00 BP 132 / 84; Pulse 85; Resp 20; Pulse Ox 99% on R/A; eh3 13:10 Body Mass Index 27.26 (91.17 kg, 182.88 cm) 3 MDM: 13:17 Patient medically screened. ci 16:48 Differential diagnosis: Anemia, UTI, sepsis, pneumonia, dehydration. Data reviewed: ci vital signs, nurses notes, old medical records, Blood work from 05/2022 shows hemoglobin of 8.7, creatinine of 1.60 lab test result(s), EKG, radiologic studies, plain films. Historians other than the Patient: EMS: . External Records Reviewed: Outpatient record: . Care significantly affected by the following chronic conditions: Diabetes, Hypertension, Chronic Obstructive Pulmonary Disease, Chronic Kidney Disease. ED course: Patient found to be anemic with a hemoglobin of 8.5, around patient's baseline. He has CKD, creatinine 1.48, improved from his baseline. 17:46 I considered the following discharge prescriptions or medication management in the emergency department Medications were administered in the Emergency Department. See MAR. Independent interpretation of the following test(s) in the Emergency Department. Counseling: I had a detailed discussion with the patient and/or guardian regarding the historical points, exam findings, and any diagnostic results supporting the discharge/admit diagnosis, lab results, radiology results, the need for outpatient follow up, to return to the emergency department if symptoms worsen or persist or if there are any questions or concerns that arise at home. Response to treatment: the patient's symptoms have markedly improved after treatment. ED course: Chest x-ray shows questionable pneumonia versus atelectasis. Will empirically cover with Augmentin. Patient was given cefepime in the ED, he was hydrated with IV fluids. Stable for discharge with close PCP follow-up. Will give referral to podiatry as he has a blister to the right great toe. X-ray shows indeterminate age fracture of the second metatarsal, patient denies pain to that area, he has no point tenderness to the right second toe.. 03/22 13:33 Order name: CBC with Diff; Complete Time: 15:49 ci 03/22 15:49 Interpretation: Abnormal: HGB 8.5. ci 03/22 13:33 Order name: CMP; Complete Time: 15:49 ci 03/22 15:49 Interpretation: CRE 1.48. ci 03/22 13:33 Order name: Lactate w/ 2H reflex if indic.; Complete Time: 15:49 ci 03/22 13:33 Order name: Protime (+inr); Complete Time: 15:49 ci 03/22 13:33 Order name: Ptt, Activated; Complete Time: 15:49 ci 03/22 13:33 Order name: Urinalysis w/ reflexes; Complete Time: 16:45 ci 03/22 13:33 Order name: Troponin HS; Complete Time: 15:49 ci 03/22 13:33 Order name: Chest Single View XRAY; Complete Time: 14:21 ci 03/22 14:22 Interpretation: Per Radiologist's finding(s): IMPRESSION: Patchy left basilar airspace ci opacities, may relate to atelectasis or pneumonia. 03/22 13:33 Order name: XRAY Foot RIGHT 3 View; Complete Time: 14:55 ci 03/22 14:55 Interpretation: Abnormal: Per Radiologist's finding(s): IMPRESSION: Fracture of ci indeterminate age at the base of the second digit middle phalanx. Soft tissue irregularity and laceration of the big toe. Signed By: Jonas Ballesteros, Per Radiologist's finding(s): IMPRESSION: Fracture of indeterminate age at the base of the second digit middle phalanx. Soft tissue irregularity and laceration of the big toe. Signed By: Jonas Ballesteros. 03/22 13:33 Order name: EKG; Complete Time: 13:33 ci 03/22 13:33 Order name: Accucheck; Complete Time: 14:42 ci 03/22 13:33 Order name: Cardiac monitoring; Complete Time: 13:55 ci 03/22 13:33 Order name: EKG - Nurse/Tech; Complete Time: 13:55 ci 03/22 13:33 Order name: IV Saline Lock - Large Bore; Complete Time: 13:55 ci 03/22 13:33 Order name: Labs collected and sent; Complete Time: 14:42 ci 03/22 13:33 Order name: O2 Per Protocol; Complete Time: 13:55 ci 03/22 13:33 Order name: O2 Sat Monitoring; Complete Time: 13:55 ci 03/22 13:33 Order name: Vital Signs; Complete Time: 13:50 ci Administered Medications: 15:22 Drug: HYDROcodone-acetaminophen PO 5 mg-325 mg 1 tabs PO once Route: PO; 3 16:36 Follow up: Response: No adverse reaction 3 16:36 Drug: NS 0.9% IV 1000 ml IV at 1000 ml once Route: IV; Rate: 1000 ml; Site: right hand; 3 18:25 Follow up: IV Status: Completed infusion; IV Intake: 1000ml [facility] 16:36 Drug: Cefepime IVPB 1 grams IVPB at 200 ml/hr once over 30 mins; (mix in NS 100 mL) eh3 Route: IVPB; Rate: 200 ml/hr; Infused Over: 30 mins; Site: right hand; 17:06 Follow up: Response: No adverse reaction; IV Status: Completed infusion; IV Intake: eh3 100ml Disposition Summary: 03/22/23 17:49 Discharge Ordered Notes: Location: Home ci Condition: Stable ci Diagnosis - Pneumonia, unspecified organism ci - Pain in unspecified lower leg ci - Hypotension, unspecified ci Followup: ci - With: Private Physician - When: 1 - 2 days - Reason: Recheck today's complaints, Continuance of care, Re-evaluation by your physician Discharge Instructions: - Discharge Summary Sheet ci - Musculoskeletal Pain ci - Community-Acquired Pneumonia, Adult, [id number] ci - Hypotension, [id number] ci Forms: - Medication Reconciliation Form ci - Thank You Letter ci - Antibiotic Education ci - Prescription Opioid Use ci - Patient Portal Instructions ci - Leadership Thank You Letter ci Prescriptions: - Augmentin 875-125 mg Oral tablet - take 1 tablet ORAL route every 12 hours for 5 days; 10 tablet; Refills: 0, ci Product Selection Permitted Signatures: Dispatcher [employer] Sophie Cody RN RN eh3 Na Mojica ci
[2023-03-22 19:24] VITALS: TEMP 98.2
[2023-03-22 19:33] VITALS: O2SAT 99
[2023-03-22 19:34] VITALS: BP 132/84
== END 2023-03-22 18:27 | disposition home or self-care (01) ==
LOC: ER 12:52
DX: J18.9 Pneumonia, unspecified organism (principal); I95.9 Hypotension, unspecified; M79.662 Pain in left lower leg; M79.661 Pain in right lower leg; S90.421A Blister (nonthermal), right great toe, initial encounter; F17.210 Nicotine dependence, cigarettes, uncomplicated; E11.22 Type 2 diabetes mellitus with diabetic chronic kidney disease; I12.9 Hypertensive chronic kidney disease with stage 1 through stage 4 chronic kidney disease, or unspecified chronic kidney disease; N18.9 Chronic kidney disease, unspecified; J44.9 Chronic obstructive pulmonary disease, unspecified
CPT/HCPCS: 85025; 81001; 36415; 85610; 83605; 85730; 84484; 80053; 71045; 73630; J7030; J0692

== ENCOUNTER 2023-05-22 15:52 | Emergency (ER) | payer MEDICARE ==
--- OUTSIDE RECORDS SUMMARY | 2023-05-22 15:57 | XMS REPORT | Continuity of Care Document ---
:1960 Author Organization [facility] t Address [address] [place] [address] [address] [place] [address] Care Team Providers Name Role Phone Pcp, Patient Does Not Have A Primary Care Physician [id number] Britni Marvin DO Attending Clinician Doctor Unassigned, [place] Attending Clinician Unavailable Dora Murphy RN Attending Clinician Unavailable RANDY SY Attending Clinician Unavailable Antonia GARCIA, Randy Fisher Attending Clinician Joey Baker DO Attending Clinician Gregoria Cabrera MD Attending Clinician Jorge L GARCIA, Fritz Attending Clinician Chava Hurd MD Attending Clinician Artie Carrasco MD, Ayo Alvarado Attending Clinician [phone] FRITZ DALEY Attending Clinician Unavailable Ish GARCIA, Dm Attending Clinician RANDY SY Admitting Clinician Unavailable Randy Sy MD Admitting Clinician Artie Carrasco MD, Ayo Alvarado Admitting Clinician [phone] FRITZ DALEY Admitting Clinician Unavailable Payers Payer Name Policy Type Policy Number Effective Date Expiration Date [id number] 2022 (MEDICARE 00:00:00 REPLACEMENT HMO) Problems Condition [...] Branch S/P S/P Disease Recurre 2021-07 Overview: [facility] primary primary nce 15 Formattin ity o f angioplast angioplast 00:00: g of this [place] y with y with 00 note Medical coronary coronary might be Bran ch stent stent different from the original. 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 Disease Recurre 2021-07 Un alexi (current) (current) nce 15 ity of use of use of 00:00: [...] 2 Type 2 Disease Active 2021-07 Overview: [facility] diabetes diabetes 15 Formattin ity of mellitus mellitus 00:00: g [...] heart 0-12 ity of and and 00:00: [place] chronic chronic 00 Medical kidney kidney Branch [...] of 923 ity of coronary coronary 00:00: [place] artery artery 00 Medical Branch Allergies, Adverse Reactions, Alerts Allergy Allergy Status Severity Reaction(s) Onset Inactive Treating Comm ents Source Name Type Date Date Clinician NO KNOWN Drug Active Univers ALLERGIE Class ity of S [place] [facility] Social History Social Habit Start Date Stop Date Quantity Comments Source History of tobacco Passive smoker Un iversity of use [place] [facility] History SDOH Social Unive rsity of Connections [facility] Med ical Together Branch History SDOH Social Unive rsity of Connections [facility] Branch History SDOH Social Unive rsity of Connections [place] [facility] Membership Branch History SDOH Social Unive rsity of [facility] Medical Meetings Branch History SDOH Social Unive rsity of Connections [facility] Exposure to 2022-06-18 2022-06-28 Not sure University of SARS-CoV-2 (event) 00:00:00 03:00:00 [place] [facility] History SDOH Food 2022-06-28 2022-06-28 1 Univers ity of Worry 00:00:00 00:00:00 [place] [facility] History SDOH Food 2022-06-28 2022-06-28 1 Univers ity of Scarcity 00:00:00 00:00:00 [place] [facility] History SDOH 2022-06-28 2022-06-28 2 University o f Transport Med 00:00:00 00:00:00 [place] Medic al Branch History SDOH 2022-06-28 2022-06-28 2 University o f Transport Non-Med 00:00:00 00:00:00 [facility] edical Branch Tobacco use and 2022-06-28 2022-06-28 User of Universit y of exposure 00:00:00 00:00:00 smokeless [place] Medical tobacco Branch History SDAK 2022-06-28 2022-06-28 1 University o f Alcohol Frequency 00:00:00 00:00:00 [place] M edical Branch History SDAK 2022-06-28 2022-06-28 0 University o f Alcohol Std Drinks 00:00:00 00:00:00 [place] [facility] History SDOH 2022-06-28 2022-06-28 1 University o f Alcohol Binge 00:00:00 00:00:00 [place] Medic al Branch History [facility] Social 2022-06-28 2022-06-28 5 Unive rsity of Connections Phone 00:00:00 00:00:00 [facility] edical Branch History [facility] 2022-06-28 2022-06-28 0 University o f Physical Activity 00:00:00 00:00:00 [facility] edical DPW Branch History [facility] 2022-06-28 2022-06-28 0 University o f Physical Activity 00:00:00 00:00:00 [facility] edical MPS Branch History [facility] 2022-06-28 2022-06-28 4 University o f Financial 00:00:00 00:00:00 [facility] Alcohol intake 2022-06-28 2022-06-28 Ex-drinker University of 00:00:00 00:00:00 (finding) [facility] Alcohol Comment 2022-05-14 2022-05-14 Previous heavy Unive rsity of 00:00:00 00:00:[address] [facility] Sex Assigned At [birth year] Universit y of 00:00:00 00:00:00 [facility] Smoking Status Start Date Stop Date Source Tobacco smoking consumption Univ ersity of [facility] unknown Branch Smokes tobacco daily 2022-06-28 00:00:00 Univers ity of [place] [facility] Medications Ordered Filled Start Stop Current Ordering Indication Dosage Frequency Signature Comments Components Source Medication Medication Date Date Medication? Clinician (SIG) Name Name furosemide Yes [id number] 40mg Take 1 U nivers 40 mg 1-24 tablet by ity of tablet 00:00: mouth in [place] 00 the Medical morning. Branch metoprolol 2021-07 Yes 50mg Take 50 mg U nivers tartrate 50 2-28 by mouth ity of mg tablet 15:49: in the [place] 30 morning Medical and 50 mg Branch in the evening. traZODone 2021-07 Yes 50mg Take 50 mg Un alexi 50 mg 2-28 by mouth ity of tablet 15:49: at [place] 30 bedtime. Medical Branch metoprolol 2021-07 Yes 50mg Take 50 mg U nivers tartrate 50 2-28 by mouth ity of mg tablet 15:49: in the [place] 30 morning Medical and 50 mg Branch in the evening. traZODone 2021-07 Yes 50mg Take 50 mg Un alexi 50 mg 2-28 by mouth ity of tablet 15:49: at [place] [address] bedtime. Medical Branch metoprolol 2021-07 Yes 50mg Take 50 mg U nivers tartrate 50 2-28 by mouth ity of mg tablet 15:49: in the [place] 30 morning Medical and 50 mg Branch in the evening. traZODone 2021-07 Yes 50mg Take 50 mg Un alexi 50 mg 2-28 by mouth ity of tablet 15:49: at [place] [address] bedtime. Medical Branch metoprolol 2021-07 Yes 50mg Take 50 mg U nivers tartrate 50 2-28 by mouth ity of mg tablet 15:49: in the [place] 30 morning Medical and 50 mg Branch in the evening. traZODone 2021-07 Yes 50mg Take 50 mg Un alexi 50 mg 2-28 by mouth ity of tablet 15:49: at [place] [address] bedtime. Medical Branch traZODone 2021-07 Yes 50mg 50 mg, Univer s (DESYREL) 2-28 Oral, QHS, ity of tablet 50 03:00: [place] 00 on [facility] 06/28/22 Branch at 2100, Until Discontinu ed, Routine atorvastati 2021-07 Yes 40mg 40 mg, Univ ers n (LIPITOR) 2-28 Oral, QHS, it y of tablet 40 03:00: First dose [place] mg 00 on [facility] 06/28/22 Branch at 2100, Until Discontinu ed, Routine insulin 2021-07 Yes 15U 15 Units, Unive rs glargine - Subcutaneo ity o f (LANTUS 02:00: us, BID, [place] U-100) 00 First dose Medical injection on [facility] 15 Units 06/28/22 at 2000, Until Discontinu ed, Routine losartan 2021-07 Yes 50mg 50 mg, Univers (COZAAR) 08-29 Oral, ity of tablet 50 22:00: DAILY, [place] mg 00 First dose Medical on [facility] 06/28/22 at 1600, Until Discontinu ed, Routine Sliding 2021-07 Yes Subcutaneo Univ ers Scale 2-27 us, TID ity of Insulin - 18:00: MEALS+HS, Sai as Lispro 00 First dose Medical (HumaLOG) + on [facility] Fsbg 06/28/22 Testing at 1200, Until Discontinu ed, Routine dextrose 2021-07 Yes 250mL 250 mL, IV Un alexi 10% (D10W) 08-29 Infusion, ity of bolus 15:07: PRN - SEE [place] infusion 22 INSTRUCTIO Medic al 250 mL [...] KIT) 18 Starting Medical injection [address] [facility] mg 06/28/22 at 0907, Until Discontinu ed, ANAYA, Blood Glucose < or = 70 mg/dL and patient is unable to swallow or has mental changes. clopidogreL 2021-07 Yes 75mg 75 mg, Univ ers (PLAVIX) 75 08-29 Oral, ity of mg tablet 15:00: DAILY, [place] 75 mg 00 First dose Medical on [facility] 06/28/22 at 0900, Until Discontinu ed, Routine aspirin EC 2021-07 No 81mg 81 mg, Univ ers tablet 81 08-29 Oral, ity of mg 15:00: 20:43 DAILY, [place] 00 :30 First dose Medical on [facility] 06/28/22 at 0900, Until Discontinu ed pantoprazol 2021-07 Yes 40mg 40 mg, Univ ers e 08-29 Slow IV ity of (PROTONIX) 14:00: Push, [place] injection 00 Q12H, Medical 40 mg First dose Branch on [facility] 06/28/22 at 0800, Until Discontinu ed gabapentin 2021-07 Yes 200mg 200 mg, Uni vers (NEURONTIN) 08-29 Oral, TID, it y of capsule 200 14:00: First dose [place] mg 00 on [facility] 06/28/22 Branch at 0800, Until Discontinu ed, Routine acetaminoph 2021-07 Yes 650mg 650 mg, Un alexi en 08-29 Oral, ity of (TYLENOL) 10:01: Q6HPRN, [place] tablet 650 56 Starting Medic al mg on [facility] 06/28/22 at 0401, Until Discontinu ed, Routine, Pain (scale 1-3) insulin 2021-07 Yes 17U 17 Units, Unive rs glargine 1-16 Subcutaneo ity o f (LANTUS 03:00: us, [facility], [place] U-100) 00 First dose Medical injection on [facility] 17 Units 05/17/22 at 2100, Until Discontinu ed, Routine insulin 2021-07 Yes 17U 17 Units, Unive rs glargine 1-16 Subcutaneo ity o f (LANTUS 03:00: us, [facility], [place] U-100) 00 First dose Medical injection on [facility] 17 Units 05/17/22 at 2100, Until Discontinu ed, Routine insulin 2021-07 Yes [id number] 5U inject 5 Un alexi aspart 1-16 Units ity of U-100 00:00: under the [place] (NOVOLOG 00 skin in Medical FLEXPEN the Branch U-100 morning INSULIN) and 5 100 unit/mL Units at (3 mL) noon and 5 injection Units in the evening. Insulin 2021-07 Yes [id number] 17U inject 17 U nivers Detemir 100 1-16 Units ity of unit/mL (3 00:00: under the [place] mL) 00 skin in Medical injection the Branch morning and 17 Units in the evening. insulin 2021-07 Yes [id number] 5U inject 5 Un alexi aspart 1-16 Units ity of U-100 00:00: under the [place] (NOVOLOG 00 skin in Medical FLEXPEN the Branch U-100 morning INSULIN) and 5 100 unit/mL Units at (3 mL) noon and 5 injection Units in the evening. Insulin 2021-07 Yes [id number] 17U inject 17 U nivers Detemir 100 1-16 Units ity of unit/mL (3 00:00: under the [place] mL) 00 skin in Medical injection the Branch morning and 17 Units in the evening. insulin 2021-07 Yes [id number] 5U inject 5 Un alexi aspart 1-16 Units ity of U-100 00:00: under the [place] (NOVOLOG 00 skin in Medical FLEXPEN the Branch U-100 morning INSULIN) and 5 100 unit/mL Units at (3 mL) noon and 5 injection Units in the evening. Insulin 2021-07 Yes [id number] 17U inject 17 U nivers Detemir 100 1-16 Units ity of unit/mL (3 00:00: under the [place] mL) 00 skin in Medical injection the Branch morning and 17 Units in the evening. insulin 2021-07 Yes [id number] 5U inject 5 Un alexi aspart 1-16 Units ity of U-100 00:00: under the [place] (NOVOLOG 00 skin in Medical FLEXPEN the Branch U-100 morning INSULIN) and 5 100 unit/mL Units at (3 mL) noon and 5 injection Units in the evening. Insulin 2021-07 Yes [id number] 17U inject 17 U nivers Detemir 100 1-16 Units ity of unit/mL (3 00:00: under the [place] mL) 00 skin in Medical injection the Branch morning and 17 Units in the evening. insulin 2021-07 Yes [id number] 5U inject 5 Un alexi aspart 1-16 Units ity of U-100 00:00: under the [place] (NOVOLOG 00 skin in Medical FLEXPEN the Branch U-100 morning INSULIN) and 5 100 unit/mL Units at (3 mL) noon and 5 injection Units in the evening. Insulin 2021-07 Yes [id number] 17U inject 17 U nivers Detemir 100 1-16 Units ity of unit/mL (3 00:00: under the [place] mL) 00 skin in Medical injection the Branch morning and 17 Units in the evening. metoprolol 2021-07 Yes 50mg Take 50 mg U nivers tartrate 50 1-15 by mouth ity of mg tablet 18:59: in the [place] [address] morning Medical and 50 mg Branch in the evening. traZODone 2021-07 Yes 50mg Take 50 mg Un alexi 50 mg 1-15 by mouth ity of tablet 18:59: at [place] [address] bedtime. Medical Branch metoprolol 2021-07 Yes 50mg Take 50 mg U nivers tartrate 50 1-15 by mouth ity of mg tablet 18:59: in the [place] [address] morning Medical and 50 mg Branch in the evening. traZODone 2021-07 Yes 50mg Take 50 mg Un alexi 50 mg 1-15 by mouth ity of tablet 18:59: at [place] [address] bedtime. Medical Branch clopidogreL 2021-07 Yes 75mg 75 mg, Univ ers (PLAVIX) 75 1-15 Oral, ity of mg tablet 18:00: DAILY, [place] 75 mg 00 First dose Medical on [facility] 05/17/22 at 1200, Until Discontinu ed, Routine aspirin 2021-07 Yes 81mg 81 mg, Univers chewable 1-15 Oral, ity of tablet 81 18:00: DAILY, [place] mg 00 First dose Medical on [facility] 05/17/22 at 1200, Until Discontinu ed, Routine furosemide 2021-07 Yes 40mg 40 mg, Unive rs (LASIX) 1-15 Oral, ity of tablet 40 17:30: DAILY, [place] mg 00 First dose Medical on [facility] 05/17/22 at 1130, Until Discontinu ed, Routine amLODIPine 2021-07 Yes 5mg 5 mg, Univer s (NORVASC) 1-15 Oral, ity of tablet 5 mg 15:00: DAILY, [place] 00 First dose Medical on [facility] 05/17/22 at 0900, Until Discontinu ed, Routine pantoprazol 2021-07 Yes 40mg 40 mg, Univ ers e -15 Oral, ity of (PROTONIX) 15:00: DAILY, [place] EC tablet 00 First dose Medi reyna [address] [facility] 05/17/22 at 0900, Until Discontinu ed, Routine amLODIPine 2021-07 Yes 5mg 5 mg, Univer s (NORVASC) 15 Oral, ity of tablet 5 mg 15:00: DAILY, [place] 00 First dose Medical on [facility] 05/17/22 at 0900, Until Discontinu ed, Routine pantoprazol 2021-07 Yes 40mg 40 mg, Univ ers e 15 Oral, ity of (PROTONIX) 15:00: DAILY, [place] EC tablet 00 First dose Medi reyna [address] [facility] 05/17/22 at 0900, Until Discontinu ed, Routine potassium 2021-07 10meq 10 mEq, IV Univers chloride in 07-17 Piggyback, i ty of water 10 14:00: 22:30 Q2H, 4 [place] mEq/100 mL 00 :00 doses, Medical RTU 10 mEq First dose Bra nch on [facility] 05/17/22 at 0800, Last dose on [facility] 05/17/22 at 1400, Administer over 60 Minutes, 100 mL KCL 2021-07 40meq 40 mEq, Univers (KLOR-CON 07-17 Oral, ity of M20) tablet 13:45: 14:58 ONCE, 1 [place] 40 mEq 00 :00 dose, On Medical [facility] 05/17/22 at 0745, Routine furosemide 2021-07- No 40mg Take 40 mg Univers 40 mg 07-17 by mouth ity of tablet 11:19: 00:00 every [place] 35 :00 morning Medical and Branch evening. furosemide 2021-07 Yes [id number] 40mg Take 1 U nivers 40 mg 1-15 tablet by ity of tablet 00:00: mouth in [place] 00 the Medical morning. Branch furosemide 2021-07 Yes [id number] 40mg Take 1 U nivers 40 mg 1-15 tablet by ity of tablet 00:00: mouth in [place] 00 the Medical morning. Branch furosemide 2021-07 Yes [id number] 40mg Take 1 U nivers 40 mg 1-15 tablet by ity of tablet 00:00: mouth in [place] 00 the Medical morning. Branch furosemide 2021-07 Yes [id number] 40mg Take 1 U nivers 40 mg 1-15 tablet by ity of tablet 00:00: mouth in [place] 00 the Medical morning. Branch furosemide 2021-07 Yes [id number] 40mg Take 1 U nivers 40 mg 1-15 tablet by ity of tablet 00:00: mouth in [place] 00 the Medical morning. Branch furosemide 2021-07- No [id number] 40mg Take 1 Univers 40 mg 1-15 -24 tablet by ity of tablet 00:00: 00:00 mouth in [place] 00 :00 the Medical morning. Branch Insulin 2021-07- No [id number] 17U inject 17 Univers Detemir 100 -15 12-16 Units ity of unit/mL (3 00:00: 05:59 under the [place] mL) 00 :00 skin in Medical injection the Branch morning and 17 Units in the evening. Do all this for 30 days. pantoprazol 2021-07- No [id number] 40mg Take 1 Univers e 40 mg EC 1-15 12-16 tablet by ity of tablet 00:00: 05:59 mouth in [place] 00 :00 the Medical morning Branch and 1 tablet in the evening. Do all this for 30 days. pantoprazol 2021-07- No [id number] 40mg Take 1 Univers e 40 mg EC 1-15 12-16 tablet by ity of tablet 00:00: 05:59 mouth in [place] 00 :00 the Medical morning Branch and 1 tablet in the evening. Do all this for 30 days. metoprolol 2021-07 Yes 50mg Take 50 mg U nivers tartrate 50 1-14 by mouth ity of mg tablet 21:59: in the [place] [address] morning Medical and 50 mg Branch in the evening. traZODone 2021-07 Yes 50mg Take 50 mg Un alexi 50 mg 1-14 by mouth ity of tablet 21:59: at [place] [address] bedtime. Medical Branch furosemide 2021-07 Yes 40mg Take 40 mg U nivers 40 mg 1-14 by mouth ity of tablet 21:59: every [place] 40 morning Medical and Branch evening. levothyroxi 2021-07- No 50ug Take 50 Un alexi ne 50 mcg 1-14 11-12 mcg by ity of tablet 21:59: 00:00 mouth. [place] 40 :00 [facility] Branch levothyroxi 2021-07- No 50ug Take 50 Un alexi ne 50 mcg 1-14 11-12 mcg by ity of tablet 21:59: 00:00 mouth. [place] 40 :00 [facility] Branch magnesium 2021-07- No 400mg 400 mg, Uni vers oxide 1-14 11-14 Oral, ity of (MAG-OX 14:00: 14:15 ONCE, 1 [place] 400) tablet 00 :00 dose, On Medi reyna 400 mg [facility] Branch 05/16/22 at 0800, Routine HYDROcodone 2021-07 Yes 1{tbl} 1 tablet, Univers -acetaminop 1-14 Oral, ity of hen (NORCO 09:13: Q6HPRN, [place] 5) 5-325 mg 03 Starting Medi reyna tablet 1 on [facility] Branch tablet 05/16/22 at 0313, Until Discontinu ed, Routine, Pain (scale 7-10) HYDROcodone 2021-07 Yes 1{tbl} 1 tablet, Univers -acetaminop 1-14 Oral, ity of hen (NORCO 09:13: Q6HPRN, [place] 5) 5-325 mg 03 Starting Medi reyna tablet 1 on [facility] Branch tablet 05/16/22 at 0313, Until Discontinu ed, Routine, Pain (scale 7-10) traZODone 2021-07 Yes 50mg 50 mg, Univer s (DESYREL) 1-14 Oral, QHS, ity of tablet 50 03:00: First dose [place] mg 00 on [facility] 05/15/22 Branch at 2100, Until Discontinu ed, Routine traZODone 2021-07 Yes 50mg 50 mg, Univer s (DESYREL) 1-14 Oral, QHS, ity of tablet 50 03:00: First dose [place] mg 00 on [facility] 05/15/22 Branch at 2100, Until Discontinu [...] IV Push, ity of (PF)) 18:37: Q6HPRN, [place] injection 4 44 Starting Medi reyna mg on [facility] Branch 05/15/22 at 1237, Until Discontinu ed, Routine, Nausea and Vomiting (N/V) ondansetron 2021-07 Yes 4mg 4 mg, Slow Univers (ZOFRAN 1-13 IV Push, ity of (PF)) 18:37: Q6HPRN, [place] injection 4 44 Starting Medi reyna mg on [facility] Branch 05/15/22 at 1237, Until Discontinu ed, Routine, Nausea and Vomiting (N/V) peg-electro 2021-07- No 4000mL 4,000 mL, Univers lyte soln 07-1515 Oral, PRN ity of (GOLYTELY) 18:37: 04:11 - SEE [place] [id number] 44 :51 INSTRUCTIO Dc dical .74 -5.86 NS, Branch gram Starting solution on Sun 4,000 mL 05/15/22 at 1237, Until 05/16/22 at 2211, Routine, Bowel Prep, colonoscop y sulfur 2021-07- No [id number] 5mL 5 mL, Unive rs hexafluorid 07-15 Intravenou i ty of e microsphr 18:15: 16:16 s, ONCE, 1 [place] (LUMASON) 00 :00 dose, On Medica l injection 5 [place] Branch mL 05/15/22 at 1215, Routine
merchandise flow team member approving Restricted medication : JULIAN AMANDAHelena BRYAN ENRIQUEZ metoprolol 2021-07 Yes 25mg 25 mg, Unive rs tartrate 1-13 Oral, BID, ity o f (LOPRESSOR) 14:00: First dose [place] tablet 25 00 (after Medical mg last Branch modificati on) on [facility] 05/15/22 at 0800, Until Discontinu ed, Routine metoprolol 2021-07 Yes 25mg 25 mg, Unive rs tartrate 1-13 Oral, BID, ity o f (LOPRESSOR) 14:00: First dose [place] tablet 25 00 (after Medical mg last Branch modificati on) on [facility] 05/15/22 at 0800, Until Discontinu ed, Routine atorvastati 2021-07 Yes 40mg 40 mg, Univ ers n (LIPITOR) 1-13 Oral, QHS, it y of tablet 40 03:00: First dose [place] mg 00 on [facility] 05/14/22 Branch at 2100, Until Discontinu ed, Routine atorvastati 2021-07 Yes 40mg 40 mg, Univ ers n (LIPITOR) 1-13 Oral, QHS, it y of tablet 40 03:00: First dose [place] mg 00 on [facility] 05/14/22 Branch at 2100, Until Discontinu ed, Routine clopidogreL 2021-07- No 75mg 75 mg, Uni vers (PLAVIX) 75 07-14 Oral, ity of mg tablet 22:45: 00:36 DAILY, [place] 75 mg 00 :44 First dose Medical on [facility] 05/14/22 at 1645, Until Discontinu ed, Routine acetaminoph 2021-07- No 650mg 650 mg, U nivers en 07-14 Oral, ity of (TYLENOL) 21:30: 00:16 ONCE, 1 [place] tablet 650 00 :00 dose, On Medic al [facility] 05/14/22 at 1530, Routine lactated 2021-07- No 1000mL at 999 Univ ers ringers [...] Discontinu ed, Routine Sliding 2021-07 Yes Subcutaneo [facility] ers Scale 1-12 us, TID ity of Insulin - 14:00: MEALS+HS, [place] Lispro 00 First dose Medical (HumaLOG) + on Sat Branch [facility] 05/14/22 Testing at 0800, Until Discontinu ed, Routine Sliding 2021-07 Yes [facility] ers Scale 1-12 us, TID ity of Insulin - 14:00: MEALS+HS, [place] Lispro 00 First dose Medical (HumaLOG) + on Sat Branch Fs 05/14/22 Testing at 0800, Until Discontinu ed, Routine metoprolol 2021-07- No 50mg 50 mg, [facility] ers tartrate 07-14 Oral, BID, ity of (LOPRESSOR) 14:00: 07:38 First dose [place] tablet 50 00 :55 on Sat Medical mg 05/14/22 Branch at 0800, Until Discontinu ed, Routine pantoprazol 2021-07- No 40mg 40 mg, Uni vers e 07-14 Slow IV ity of (PROTONIX) 14:00: 18:09 Push, [place] injection 00 :31 Q12H, Medical 40 mg First dose Branch on [facility] 05/14/22 at 0800, Until Discontinu ed acetaminoph 2021-07 Yes 650mg 650 mg, Un alexi en -12 Oral, ity of (TYLENOL) 11:42: Q6HPRN, [place] tablet 650 27 Starting Medic al mg on [facility] Branch 05/14/22 at 0542, Until Discontinu ed, Routine, Pain (scale 1-3) acetaminoph 2021-07 Yes 650mg 650 mg, Un alexi en -12 Oral, ity of (TYLENOL) 11:42: Q6HPRN, [place] tablet 650 27 Starting Medic al mg on [facility] Branch 05/14/22 at 0542, Until Discontinu ed, [...] 9-13 by mouth. ity of tablet 00:00: [facility] clopidogreL Yes 75mg Take 75 mg Univers 75 mg 9-13 by mouth. ity of tablet 00:00: [facility] pantoprazol Yes 40mg 40 mg. Univ ers e 40 mg EC 9-13 ity of tablet 00:00: [facility] clopidogreL 2021-0 Yes 75mg Take 75 mg Univers 75 mg 9-13 by mouth. ity of tablet 00:00: [facility] clopidogreL 0 Yes 75mg Take 75 mg Univers 75 mg 9-13 by mouth. ity of tablet 00:00: [facility] clopidogreL 2021-0 Yes 75mg Take 75 mg Univers 75 mg 9-13 by mouth. ity of tablet 00:00: Medical Branch clopidogreL 2022-0 Yes 75mg Take 75 mg Univers 75 mg 9-13 by mouth. ity of tablet 00:00: [place] [facility] clopidogreL 2-0 Yes 75mg Take 75 mg Univers 75 mg 9-13 by mouth. ity of tablet 00:00: [place] [facility] Branch pantoprazol 2021-0 2- No 40mg 40 mg. Uni vers e 40 mg EC 03-15 11-15 ity of tablet 00:00: 00:00 [place] : Medical Branch aspirin 81 2-0 Yes 81mg 81 mg. Unive rs mg Cap 03-09 ity of 00:00: [place] Medical Branch aspirin 81 2-0 Yes 81mg 81 mg. Unive rs mg Cap 03-09 ity of 00:00: [place] Medical Branch aspirin 81 2-0 Yes 81mg 81 mg. Unive rs mg Cap 03-09 ity of 00:00: [place] [address] Medical Branch aspirin 81 2-0 2021- No 81mg 81 mg. Univ ers mg Cap 03-09 ity of 00:00: 00:00 [place] 00 : Medical Branch gabapentin 2022-0 Yes 200mg Take 200 Un alexi 100 mg 7-23 mg by ity of capsule 00:00: mouth. [place] [address] Medical Branch gabapentin 2022-0 Yes 200mg Take 200 Un alexi 100 mg 7-23 mg by ity of capsule 00:00: mouth. [place] [address] Medical Branch gabapentin 2022-0 Yes 200mg Take 200 Un alexi 100 mg 7-23 mg by ity of capsule 00:00: mouth. [place] [address] Medical Branch gabapentin 2022-0 Yes 200mg Take 200 Un alexi 100 mg 7-23 mg by ity of capsule 00:00: mouth. [place] [address] Medical Branch gabapentin 2022-0 Yes 200mg Take 200 Un alexi 100 mg 7-23 mg by ity of capsule 00:00: mouth. [place] [address] Medical Branch gabapentin 2022-0 Yes 200mg Take 200 Un alexi 100 mg 7-23 mg by ity of capsule 00:00: mouth. [place] [address] [facility] gabapentin 2022-0 Yes 200mg Take 200 Un alexi 100 mg 7-23 mg by ity of capsule 00:00: mouth. [place] [address] [facility] atorvastati 2-0 3- No 40mg Take 40 mg Univers n 40 mg 7-23 11-03 by mouth. ity of tablet 00:00: 04:59 [place] 00 :00 Medical Branch atorvastati 2022-0 2023- No 40mg Take 40 mg Univers n 40 mg 01-22 by mouth. ity of tablet 00:00: 04:59 [place] 00 :00 Medical Branch atorvastati 2022-0 2023- No 40mg Take 40 mg Univers n 40 mg 01-22 by mouth. ity of tablet 00:00: 04:59 [place] 00 :00 [facility] Branch atorvastati 2022-0 2023- No 40mg Take 40 mg Univers n 40 mg 01-22 by mouth. ity of tablet 00:00: 04:59 [place] 00 :00 Medical Branch atorvastati 2022-0 2023- No 40mg Take 40 mg Univers n 40 mg 01-22 by mouth. ity of tablet 00:00: 04:59 [place] 00 :00 Medical Branch atorvastati 2022-0 2023- No 40mg Take 40 mg Univers n 40 mg 01-22 by mouth. ity of tablet 00:00: 04:59 [place] 00 :00 Medical Branch atorvastati 2022-0 2023- No 40mg Take 40 mg Univers n 40 mg 01-22 by mouth. ity of tablet 00:00: 04:59 [place] 00 :00 Medical Branch losartan 50 2022-0 2023- No 50mg Take 50 mg Univers mg tablet 01-22 by mouth. ity of 00:00: 04:59 [place] 00 :00 Medical Branch losartan 50 2022-0 2023- No 50mg Take 50 mg Univers mg tablet 01-22 by mouth. ity of 00:00: 04:59 [place] 00 :00 Medical Branch losartan 50 2022-0 2023- No 50mg Take 50 mg Univers mg tablet 01-22 by mouth. ity of 00:00: 04:59 [place] 00 :00 Medical Branch losartan 50 2022-0 2023- No 50mg Take 50 mg Univers mg tablet 01-22 by mouth. ity of 00:00: 04:59 [place] 00 :00 Medical Branch losartan 50 2022-0 [...] 04:59 [place] 00 :00 [facility] amLODIPine 2021-0 2021- No 5mg 5 mg. Unive rs 5 [...] 00:00 [place] 00 :00 [facility] Branch dapaglifloz 2021-0 2021- No Take by Un alexi in-metformi 01-22 mouth. ity o f n 10-1,000 00:00: 00:00 [place] mg TBph 00 :00 Medical Branch cilostazoL 2021-2021- No 1{tbl} Take 1 Un alexi 100 mg 01-22-12 tablet by ity of tablet 00:00: 00:00 mouth [place] 00 :00 every Medical morning Branch and evening. dapaglifloz 2021-0 2021- No Take by Un alexi in-metformi 01-22- mouth. ity o f n 10-1,000 00:00: 00:00 [place] mg TBph 00 :00 Medical Branch Vital Signs Vital Name Observation Time Observation Value Comments Source Systolic blood 2022-06-29 18:12:00 122 mm[Hg] Univer sity of pressure [facility] Diastolic blood 2022-06-29 18:12:00 58 mm[Hg] Unive rsity of pressure [facility] Heart rate 2022-06-29 18:12:00 82 /min [facility] Body temperature 2022-06-29 18:12:00 36.61 Candy Univ ers[facility] [place] [facility] Respiratory rate 2022-06-29 18:12:00 16 /min Univ ers[facility] [place] [facility] Oxygen saturation in 2022-06-29 18:12:00 96 /min University of Arterial blood by [facility] reyna Pulse oximetry Branch Body height 2022-06-28 09:01:00 182.9 cm [facility] [place] [facility] Body weight 2022-06-28 09:01:00 84.324 kg [facility] [place] [facility] BMI 2022-06-28 09:01:00 25.21 kg/m2 [facility] [place] [facility] Systolic blood 2022-05-17 21:59:00 162 mm[Hg] Univer sity of pressure [place] [facility] Diastolic blood 2022-05-17 21:59:00 76 mm[Hg] Unive rsity of pressure [place] [facility] Heart rate 2022-05-17 21:59:00 86 /min [facility] [place] [facility] Body temperature 2022-05-17 21:59:00 37.28 Candy Univ [facility] [place] [facility] Respiratory rate 2022-05-17 21:59:00 18 /min Univ [facility] [place] [facility] Oxygen saturation in 2022-05-17 21:59:00 95 /min University of Arterial blood by [facility] Pulse oximetry Branch Body weight 2022-05-14 11:02:00 86.18 kg Universi ty [facility] [place] [facility] Systolic blood 2022-05-16 22:02:00 134 mm[Hg] Univer sity of pressure [place] [facility] Diastolic blood 2022-05-16 22:02:00 83 mm[Hg] Unive rsity of pressure [place] [facility] Respiratory rate 2022-05-16 22:02:00 19 /min Univ [facility] [place] [facility] Oxygen saturation in 2022-05-16 22:02:00 98 /min University of Arterial blood by [facility] reyna Pulse oximetry Branch Heart rate 2022-05-16 22:00:00 78 /min [facility] [place] [facility] Body temperature 2022-05-16 14:00:00 36.22 Candy Univ [facility] [place] [facility] Body weight 2022-05-14 11:02:00 86.[address] [facility] Procedures Procedure Date / Time Performing Source Performed Clinician EXTERNAL PROVIDER RECORDS 2022-07-08 Doctor Lora royy of 06:01:00 Unassigned, No [facility] POCT GLUCOSE (AUTOMATED) 2022-06-29 Randy Sy rsity of 18:21:00 [facility] POCT GLUCOSE (AUTOMATED) 2022-06-29 [facility] 15:34[facility]00 [facility] CBC WITH DIFF 2022-06-29 Anselmo [facility] of 11:58:00 [facility] POCT GLUCOSE (AUTOMATED) 2022-06-29 [facility] of 02:39:00 [facility] POCT GLUCOSE (AUTOMATED) 2022-06-28 [facility] of 23:11:00 [facility] CBC WITH DIFF 2022-06-28 Tremayne Briones [place] of 20:43:00 [facility] POCT GLUCOSE (AUTOMATED) 2022-06-28 [facility] of 17:59:00 [facility] POCT GLUCOSE (AUTOMATED) 2022-06-28 [facility] of 15:05:00 [facility] HEPATIC FUNCTION PANEL (65020) 2022-06-28 Tremayne Briones niversity of (ALB,T.PRO,BILI 11:52:00 [facility],BU/BC,ALT,AST,ALK PHOS) Jay BASIC METABOLIC PANEL (NA, K, CL, 2022-06-28 Tiffany Briones University [facility], GLUCOSE, BUN, CREATININE, CA) 11:52:00 [facility] CBC WITH DIFF 2022-06-28 Tremayne Briones [place] of 11:52:00 [facility] PROTHROMBIN TIME / INR 2022-06-28 [facility]00 [facility] ACTIVATED PARTIAL THRMPLAS JAMESON 2022-06-28 Tremayne Briones niversity of 11:52:00 [facility] HB ABO GROUPING 2022-06-28 Tremayne Briones [place] of 11:50:00 [facility] POCT GLUCOSE (AUTOMATED) 2022-05-17 Ayo [place] sity of 23:13:[address] [facility] POCT GLUCOSE (AUTOMATED) 2022-05-17 Ayo [place] sity of 22:00:[address] [facility] POCT GLUCOSE (AUTOMATED) 2022-05-17 Ayo [place] sity of 17:38:[address] [facility] POCT GLUCOSE (AUTOMATED) 2022-05-17 Ayo [place] sity of 13:57:[address] [facility] BASIC METABOLIC PANEL (NA, K, CL, 2022-05-17 [facility] of CO2, GLUCOSE, BUN, CREATININE, CA) 07:42:00 [facility] CBC WITHOUT DIFF 2022-05-17 [facility] of 07:42:00 [facility] BASIC METABOLIC PANEL (NA, K, CL, 2022-05-17 [facility] of CO2, GLUCOSE, BUN, CREATININE, CA) 07:42:00 [facility] CBC WITHOUT DIFF 2022-05-17 [facility] of 07:42:00 [facility] POCT GLUCOSE (AUTOMATED) 2022-05-17 Ayo [place] sity of 01:40:[address] [facility] POCT GLUCOSE (AUTOMATED) 2022-05-17 Ayo [place] sity of 01:40:[address] [facility] POCT GLUCOSE (AUTOMATED) 2022-05-16 Ayo [place] sity of 22:12:[address] [facility] POCT GLUCOSE (AUTOMATED) 2022-05-16 Ayo [place] sity of 22:12:[address] [facility] COLONOSCOPY (ENDO) 2022-05-16 [facility] of 20:04:24 [facility] COLONOSCOPY (ENDO) 2022-05-16 [facility] of 20:04:24 [facility] EGD (ENDO) 2022-05-16 [facility] of 19:53:16 [facility] EGD (ENDO) 2022-05-16 [facility] of 19:53:16 [facility] COLONOSCOPY 2022-05-16 [facility] of 19:41:00 [facility] ESOPHAGOGASTRODUODENOSCOPY 2022-05-16 [facility]00 [facility] COLONOSCOPY 2022-05-16 Ish [facility] of 19:41:00 [facility] ESOPHAGOGASTRODUODENOSCOPY 2022-05-16 Dm Deng [facility] rsity of 19:41:00 [facility] POCT GLUCOSE (AUTOMATED) 2022-05-16 Chava Hurd ity of 17:29:00 [facility] POCT GLUCOSE (AUTOMATED) 2022-05-16 Chava Hurd ity of 17:29:[address] [facility] CT ABDOMEN WO CONTRAST 2022-05-16 Phillip, Katie Universit y of 15:37:[address] [facility] CT ABDOMEN WO CONTRAST 2022-05-16 Phillip, Katie Universit y of 15:37:03 [facility] CBC WITHOUT DIFF 2022-05-16 Lorraine, [facility] of 15:29:00 [facility] CBC WITHOUT DIFF 2022-05-16 Lorraine [facility] of 15:29:00 [facility] POCT GLUCOSE (AUTOMATED) 2022-05-16 Chava Hurd ity of 14:07:00 [facility] POCT GLUCOSE (AUTOMATED) 2022-05-16 Chava Hurd ity of 14:07:00 [facility] MAGNESIUM 2022-05-16 [facility] of 11:26:00 [facility] BASIC METABOLIC PANEL (NA, K, CL, 2022-05-16 [facility] of CO2, GLUCOSE, BUN, CREATININE, CA) 11:26:00 [facility] CBC WITHOUT DIFF 2022-05-16 Lorraine [facility] of 11:26:00 [facility] MAGNESIUM 2022-05-16 [facility] of 11:26:00 [facility] BASIC METABOLIC PANEL (NA, K, CL, 2022-05-16 [facility] of CO2, GLUCOSE, BUN, CREATININE, CA) 11:26:00 [facility] CBC WITHOUT DIFF 2022-05-16 Lorraine [facility] of 11:26:00 [facility] POCT GLUCOSE (AUTOMATED) 2022-05-15 Chava Hurd ity of 22:07:00 [facility] POCT GLUCOSE (AUTOMATED) 2022-05-15 Chava Hurd ity of 22:07:00 [facility] CBC WITHOUT DIFF 2022-05-15 Lorraine Karla [place] of 22:00:00 [facility] CBC WITHOUT DIFF 2022-05-15 Lorraine [facility] of 22:00:00 [facility] POCT GLUCOSE (AUTOMATED) 2022-05-15 Chava Hurd ity of 17:49:00 [facility] POCT GLUCOSE (AUTOMATED) 2022-05-15 Chava Hurd ity of 17:49:00 [facility] TRANSTHORACIC ECHO (TTE) COMPLETE 2022-05-15 [facility] W/ CONTRAST 16:21:00 [facility] TRANSTHORACIC ECHO (TTE) COMPLETE 2022-05-15 [facility] W/ CONTRAST 16:21:00 [facility] TRANSFUSE PACKED RBC 2022-05-15 [facility] 14[facility] TRANSFUSE PACKED RBC 2022-05-15 [facility] of 14:45:00 [facility] PREPARE PACKED RBC 2022-05-15 [facility] of 14:38:44 [facility] PREPARE PACKED RBC 2022-05-15 [facility] of 14:38:44 [facility] XR SHOULDER 2+ VW LEFT 2022-05-15 [facility] of 14:34:00 [facility] Branch XR SHOULDER 2+ VW LEFT 2022-05-15 [place] Rajesh [facility] y of 14:34:00 [facility] CBC WITHOUT DIFF 2022-05-15 Rajesh Nuñez [place] of 13:47:00 [facility] CBC WITHOUT DIFF 2022-05-15 Rajesh Nuñez [place] of 13:47:00 [facility] POCT GLUCOSE (AUTOMATED) 2022-05-15 Chava Hurd ity of 13:45:00 [facility] POCT GLUCOSE (AUTOMATED) 2022-05-15 Chava Hurd ity of 13:45:00 [facility] Branch MAGNESIUM 2022-05-15 [facility] of 10:42:00 [facility] BASIC METABOLIC PANEL (NA, K, CL, 2022-05-15 [facility] of CO2, GLUCOSE, BUN, CREATININE, CA) 10:42:00 [facility] CBC WITHOUT DIFF 2022-05-15 [facility] of 10:42:00 [facility] MAGNESIUM 2022-05-15 [facility] of 10:42:00 [facility] BASIC METABOLIC PANEL (NA, K, CL, 2022-05-15 [facility] of CO2, GLUCOSE, BUN, CREATININE, CA) 10:42:00 [facility] CBC WITHOUT DIFF 2022-05-15 [facility] of 10:42:00 [facility] LIPID PANEL (04170)(TOTAL 2022-05-15 Katie Phillip [facility] sity of CHOLESTEROL, TRIGLYCERIDES, HDL) 04:26:00 [facility] CBC WITHOUT DIFF 2022-05-15 [facility] of 04:26:00 [facility] LIPID PANEL (58893)(TOTAL 2022-05-15 Kenji, Katie [facility] sity of CHOLESTEROL, TRIGLYCERIDES, HDL) 04:26:00 [facility] CBC WITHOUT DIFF 2022-05-15 [facility] of 04:26:00 [facility] CBC WITHOUT DIFF 2022-05-14 [facility] of 21:37:00 [facility] CBC WITHOUT DIFF 2022-05-14 [facility] of 21:37:00 [facility] ABORH CONFIRMATION (LAB ONLY) 2022-05-14 Katie Phillip Un iversity of 19:21:00 [facility] ABORH CONFIRMATION (LAB ONLY) 2022-05-14 Katie Phillip Un iversity of 19:21:00 [facility] POCT GLUCOSE (AUTOMATED) 2022-05-14 Joey Baker Univers ity of 18:51:00 [facility] POCT GLUCOSE (AUTOMATED) 2022-05-14 Joey Baker Univers ity of 18:51:00 [facility] HB ABO GROUPING 2022-05-14 Daisy, [facility] of 18:46:00 [facility] CBC WITHOUT DIFF 2022-05-14 [facility] 18:46:00 [facility] HB ABO GROUPING 2022-05-14 [facility] of 18:46:00 [facility] CBC WITHOUT DIFF 2022-05-14 [facility] of 18:46:00 [facility] POCT GLUCOSE (AUTOMATED) 2022-05-14 Joey Baker [facility] ity of 15:46:00 [facility] POCT GLUCOSE (AUTOMATED) 2022-05-14 Joey Baker [facility] ity of 15:46:00 [facility] N-TERMINAL PRO-BNP 2022-05-14 Kenji [facility] of 12:50:00 [facility] MAGNESIUM 2022-05-14 Phillip, [facility] of 12:50:00 [facility] HEPATIC FUNCTION PANEL (20861) 2022-05-14 Katie Phillip niversity of (ALB,T.PRO,BILI 12:50:00 [place] [facility] T,BU/BC,ALT,AST,ALK PHOS) Jay BASIC METABOLIC PANEL (NA, K, CL, 2022-05-14 Kenji [facility] of CO2, GLUCOSE, BUN, CREATININE, CA) 12:50:00 [facility] CBC WITH DIFF 2022-05-14 Kenji [facility] of 12:50:00 [facility] GLYCOSYLATED HEMOGLOBIN (A1C) 2022-05-14 Katie Phillip iversity of 12:50:00 [facility] PROTHROMBIN TIME / INR 2022-05-14 Kenji [facility] y of 12:50:00 [facility] N-TERMINAL PRO-BNP 2022-05-14 Kenji [facility] of 12:50:00 [facility] MAGNESIUM 2022-05-14 Kenji [facility] of 12:50:00 [facility] HEPATIC FUNCTION PANEL (52847) 2022-05-14 Katie Phililp U niversity of (ALB,T.PRO,BILI 12:50:00 [place] [facility] T,BU/BC,ALT,AST,ALK PHOS) Jay BASIC METABOLIC PANEL (NA, K, CL, 2022-05-14 Kenji [facility] of CO2, GLUCOSE, BUN, CREATININE, CA) 12:50:00 [facility] CBC WITH DIFF 2022-05-14 Katie Phillip University of 12:50:00 [facility] GLYCOSYLATED HEMOGLOBIN (A1C) 2022-05-14 Katie Phillip Un iversity of 12:50:00 [facility] PROTHROMBIN TIME / INR 2022-05-14 Katie Phillip Universit y of 12:50:00 [facility] HOSPITAL ADMISSION 2022-05-14 [facility] of 06:01:00 Unassigned, No [facility] Encounters Start End Encounter Admission Attending Care Care Encounter Source Date/Time Date/Time Type Type Clinicians Facility Department ID 2022-07-21 2022-07-21 Babita Marvin [facility] 1.2.840.114 [id number] Univers 00:00:00 00:00:00 Britni PRIMARY 350.1.13.10 it y [place] [id number] Dc dical 390 Branch 2022-07-08 2022-07-08 Orders Doctor PAULINO 1.2.840.114 [id number] Univers 00:00:00 00:00:00 Only Unassigned, EVELYN 350.1.13.10 ity of [place] [facility] 4.2.7.2.686 Sai as [id number] [facility] 009 Branch 2022-06-30 2022-06-30 Transition MurphyEVELIN 1.2.840.114 [id number] Univers 00:00:00 00:00:00 of Care Dora GODOYY 350.1.13.10 [place] [id number] [facility] 403 Branch 2022-06-28 2022-06-29 Outpatient U RANDY SY [facility] MARCO [id number] Univers 02:44:00 15:49:[address] [facility] 2022-06-28 2022-06-29 Hospital Randy Sy 1.2.840.114 [id number] Univers 02:44:00 15:49:00 Encounter Sesung EVELYN 350.1.13.10 ity of HOSPITAL 4.2.7.2.686 Asi as [id number] [facility] 095 Branch 2022-05-18 2022-05-18 Transition EVELIN Murphy 1.2.840.114 [id number] Univers 00:00:00 00:00:00 of Nishant ELLISON 350.1.13.10 it y [place]7.2.686 [place] [id number] [facility] 403 Branch 2022-05-14 2022-05-17 Hospital Joey Baker 1.2.840.11 [id number] Univers 04:59:00 18:59:00 Encounter Gregoria CabreraY 350.1.13.10 ity [facility] 4.2.7.2.686 [place] Chava Hurd [id number] Medical AlvaAyo jackson 099 Branch 2022-05-14 2022-05-17 Inpatient U [facility] [id number] Univers 04:59:00 18:59:00 [facility] ity [facility] 2022-05-16 2022-05-16 [facility] 1.2.840.114 [id number] Univers 15:07:00 16:02:00 Dm HOLT 350.1.13.10 it y of SCIENCES 4.2.7.2.686 Sai as BLDG [id number] [facility] 020 Branch 2022-04-27 2022-04-27 Outpatient DMG DMG [id number] Devoted 00:00:00 00:00:00 [id number] Medica l Group 2022-04-27 2022-04-27 Outpatient DMG DMG [id number] Devoted 00:00:00 00:00:00 [id number] Medica l Group 2022-04-27 2022-04-27 Outpatient DMG DMG [id number] Devoted 00:00:00 00:00:00 [id number] Medica l Group 2022-04-27 2022-04-27 Outpatient DMG DMG [id number] Devoted 00:00:00 00:00:00 [id number] Medica l Group 2022-04-27 2022-04-27 Outpatient DMG DMG [id number] Devoted 00:00:00 00:00:00 [id number] Medica l Group 2022-04-27 2022-04-27 Outpatient DMG DMG [id number] Devoted 00:00:00 00:00:00 [id number] Medica l Group 2022-04-27 2022-04-27 Outpatient DMG DMG [id number] Devoted 00:00:00 00:00:00 [id number] Medica l Group 2022-04-27 2022-04-27 Outpatient DMG DMG [id number] Devoted 00:00:00 00:00:00 [id number] Medica l Group 2022-02-24 2022-02-24 Outpatient DMG DMG [id number] Devoted 00:00:00 00:00:00 [id number] Medica l Group Results Test Description Test Time Test Comments Results Result Comments Source POCT GLUCOSE (AUTOMATED) 2022-06-29 18:22:02 Test Item Value Reference Range Interpretation Comme nts POCT GLU (test code = 1752286098) 248 mg/dL 70-110 H Lab Interpretation (test code = 49620-5) Abnormal [facility] GLUCOSE (AUTOMATED)2022-06-29 15:35:16 Test Item Value Reference Range Interpretation Comments POCT GLU (test code = 4999518540) 167 mg/dL 70-110 H Lab Interpretation (test code = Abnormal 44384-6) [facility] GLUCOSE (AUTOMATED)2022-06-29 02:41:00 Test Item Value Reference Range Interpretation Comments POCT GLU (test code = 3958452629) 153 mg/dL 70-110 H Lab Interpretation (test code = Abnormal 58827-8) [facility] GLUCOSE (AUTOMATED)2022-06-28 23:12:05 Test Item Value Reference Range Interpretation Comments POCT GLU (test code = 5427774912) 158 mg/dL 70-110 H Lab Interpretation (test code = Abnormal 17261-9) [facility] GLUCOSE (AUTOMATED)2022-06-28 18:01:20 Test Item Value Reference Range Interpretation Comments POCT GLU (test code = 9819084161) 172 mg/dL 70-110 H Lab Interpretation (test code = Abnormal 22369-2) [facility] GLUCOSE (AUTOMATED)2022-06-28 15:58:01 Test Item Value Reference Range Interpretation Comments POCT GLU (test code = 8702134954) 153 mg/dL 70-110 H Lab Interpretation (test code = Abnormal 02116-3) [facility] (ALB,T.PRO,BILI T,BU/BC,ALT,AST,ALK PHOS)2022-06-28 12:47:20 Test Item Value Reference Range Interpretation Comments TOTAL BILI (test code = 9709575068) 0.4 mg/dL 0.1-1.1 BILI UNCON (test code = 2899182437) 0.1 mg/dL 0.1-1.1 BILI CONJ (test code = 6375758690) 0.0 mg/dL 0.0-0.3 T PROTEIN (test code = 9413963455) 6.7 g/dL 6.3-8.2 ALBUMIN (test code = 7331876183) 3.6 g/dL 3.5-5.0 ALK PHOS (test code = 4209904085) 120 U/L 34-122 ALTv (test code = 1742-6) 17 U/L 5-50 AST(SGOT) (test code = 2670380011) 27 U/L 13-40 Lab Interpretation (test code = Normal 04090-2) [facility] (NA, K, CL, CO2, GLUCOSE, BUN, CREATININE, CA)2022-06-28 12:47:19 Test Item Value Reference Range Interpretation Comments NA (test code = 133 mmol/L 135-145 L 8877261024) K (test code = 4.0 mmol/L 3.5-5.0 8512999587) CL (test code = 103 mmol/L 98-108 1733757285) CO2 TOTAL (test code = 27 mmol/L 23-31 2970891274) AGAP (test code = 2-16 6332742813) BUN (test code = 45 mg/dL 7-23 H 2765673704) GLUCOSE (test code = 134 mg/dL 70-110 H 7880636107) CREATININE (test code = 1.18 mg/dL 0.60-1.25 3799675815) CALCIUM (test code = 8.6 mg/dL 8.6-10.6 6361842131) eGFR (test code = mL/min/1.73m2 9143520402) PIPO (test code = PIPO) Association of [...] tests). Lab Interpretation Abnormal (test code = 83777-1) [facility] - ONCE [id number] 12:34:39 Test Item Value Reference Range Interpretation Comments ABO & RH (test code O POSITIVE Performe d at [facility] = 20) Laboratory Serv [facility] Blood Bank3 [address] [facility] s [id number] Free: [phone] A No. [id number] IAT (test code = Negative Performed a t [facility] 1185) Laboratory Serv [facility] Blood [facility]3 [address] [facility] s [id number] Free: [phone] A No. [id number] [facility]2022-[facility]-27 12:28:19 Test Item Value Reference Range Interpretation Comments APTT Patient (test code = See_Comment [ Automated message] 3173-2) The system whic h generated this result transmitted ref erence range: 26 - 36 Seconds. The re ference range was not u sed to interpret this result as normal/abnor mal. Lab Interpretation (test Normal code = 93053-4) [facility] CenterProthrombin Time / [id number] 12:28:18 Test Item Value Reference Range Interpretation [...] tions. Lab Interpretation (test Normal code = 36728-2) [facility] WITH [id number] 12:26:17 Test Item Value Reference Range Interpretation [...] RDW-SD (test code = 49.7 fL 38.5-51.6 78099-0) RDW-CV (test code = 15.9 % 12.1-15.4 H 788-0) PLT (test code = See_Comment [Automated 777-3) message] The sy stem which generated this result transmitted reference range : 150 - 328 10*3/ ?L. The reference r josep was not used to interpret this result as normal/abnormal . MPV (test code = 9.6 fL 9.8-13.0 L 63141-3) NRBC/100 WBC (test See_Comment [Automat ed code = 0493104610) message] The system which generated this result transmitted reference range : 0.0 - 10.0 /100 WBCs. The refer ence range was not u sed to interpret th is result as normal/abnormal . NRBC x10^3 (test code See_Comment [Auto mated = 3441614089) message] The s ystem which generated this result transmitted reference range : 10*3/?L. The reference range was not used to interpret this result as normal/abnormal . GRAN MAT (NEUT) % 67.6 % (test code = 770-8) IMM GRAN % (test code 0.70 % = [id number]) LYMPH % (test code = 20.7 % 736-9) MONO % (test code = 7.1 % 5905-5) EOS % (test code = 3.5 % 713-8) BASO % (test code = 0.4 % 706-2) GRAN MAT x10^3(ANC) 4.57 10*3/uL 1.99-6.95 (test code = [id number]) IMM GRAN x10^3 (test 0.05 10*3/uL 0.00-0.06 code = [id number]) LYMPH x10^3 (test code 1.40 10*3/uL 1.09-3.23 = 731-0) MONO x10^3 (test code 0.48 10*3/uL 0.36-1.02 = 742-7) EOS x10^3 (test code = 0.24 10*3/uL 0.06-0.53 711-2) BASO x10^3 (test code 0.03 10*3/uL 0.01-0.09 = 704-7) Lab Interpretation Abnormal (test code = 53124-4) [facility] GLUCOSE (AUTOMATED)2022-05-17 23:15:41 Test Item Value Reference Range Interpretation Comments POCT GLU (test code = 3558616357) 348 mg/dL 70-110 H Lab Interpretation (test code = Abnormal 30183-1) [facility] GLUCOSE (AUTOMATED)2022-05-17 22:01:36 Test Item Value Reference Range Interpretation Comments POCT GLU (test code = 0615663840) 366 mg/dL 70-110 H Lab Interpretation (test code = Abnormal 48754-2) [facility] GLUCOSE (AUTOMATED)2022-05-17 17:39:43 Test Item Value Reference Range Interpretation Comments POCT GLU (test code = 3910065530) 253 mg/dL 70-110 H Lab Interpretation (test code = Abnormal 71975-8) [facility] GLUCOSE (AUTOMATED)2022-05-17 13:58:09 Test Item Value Reference Range Interpretation Comments POCT GLU (test code = 3488591571) 194 mg/dL 70-110 H Lab Interpretation (test code = Abnormal 59169-7) [facility]NA, K, CL, CO2, GLUCOSE, BUN, CREATININE, CA)2022-05-17 08:24:41 Test Item Value Reference Range Interpretation Comments NA (test code = 131 mmol/L 135-145 L 9686886761) K (test code = 3.4 mmol/L 3.5-5.0 L 8927581300) CL (test code = 98 mmol/L 98-108 0495973950) CO2 TOTAL (test code = 31 mmol/L 23-31 4568906637) AGAP (test code = 2-16 0617250672) BUN (test code = 12 mg/dL 7-23 4233358630) GLUCOSE (test code = 221 mg/dL 70-110 H 5949911798) CREATININE (test code = 0.75 mg/dL 0.60-1.25 2293985241) CALCIUM (test code = 7.3 mg/dL 8.6-10.6 L 5656501635) eGFR (test code = mL/min/1.73m2 3841629191) PIPO (test code = PIPO) Association of [...] tests). Lab Interpretation Abnormal (test code = 83155-0) [facility] METABOLIC PANEL (NA, K, CL, CO2, GLUCOSE, BUN, CREATININE, CA)2022-05-17 08:24:41 Test Item Value Reference Range Interpretation Comments NA (test code = 131 mmol/L 135-145 L 7770894242) K (test code = 3.4 mmol/L 3.5-5.0 L 6814736178) CL (test code = 98 mmol/L 98-108 1557941101) CO2 TOTAL (test code = 31 mmol/L 23-31 9712605631) AGAP (test code = 2-16 2769597376) BUN (test code = 12 mg/dL 7-23 8023333862) GLUCOSE (test code = 221 mg/dL 70-110 H 0507162995) CREATININE (test code = 0.75 mg/dL 0.60-1.25 0567635637) CALCIUM (test code = 7.3 mg/dL 8.6-10.6 L 9386823447) eGFR (test code = mL/min/1.73m2 3889245345) PIPO (test code = PIPO) Association of [...] tests). Lab Interpretation Abnormal (test code = 35166-1) [facility] WITHOUT [id number] 08:02:55 Test Item Value Reference Range Interpretation Comments WBC (test code = 6690-2) See_Comment [A utomated message] The system [employer] generated this result transmit maria del carmen reference range : 4.20 - 10.70 10*3/?L. The reference range was not used to interpret this result as normal/abnormal . RBC (test code = 789-8) See_Comment L [Au tomated message] The system [employer] generated this result transmit maria del carmen [...] 777-3) See_Comment [Au tomated message] The system [employer] generated this result transmit maria del carmen reference range : 150 - 328 10*3/?L. The reference range was not used to interpret this result as normal/abnormal . MPV (test code = 9.5 fL 9.8-13.0 L 53230-6) RDW-CV (test code = 14.5 % 12.1-15.4 788-0) RDW-SD (test code = 45.0 fL 38.5-51.6 28351-2) NRBC x10^3 (test code = See_Comment [Au tomated message] 1806722610) The system [employer] generated this result transmit maria del carmen reference range : 10*3/?L. The reference range was not used to interpret this result as normal/abnormal . NRBC/100 WBC (test code See_Comment [Au tomated message] = 9408658030) The system [facility] generated this result transmit maria del carmen reference range : 0.0 - 10.0 /100 WBC s. The reference r josep was not used to interpret this result as normal/abnormal . IPF % (test code = 3241636804) Lab Interpretation (test Abnormal code = 13997-6) [facility] WITHOUT [id number] 08:02:55 Test Item Value Reference Range Interpretation Comments WBC (test code = 6690-2) See_Comment [A utomated message] The system [employer] generated this result transmit maria del carmen reference range : 4.20 - 10.70 10*3/?L. The reference range was not used to interpret this result as normal/abnormal . RBC (test code = 789-8) See_Comment L [Au tomated message] The system [employer] generated this result transmit maria del carmen [...] 777-3) See_Comment [Au tomated message] The system [employer] generated this result transmit maria del carmen reference range : 150 - 328 10*3/?L. The reference range was not used to interpret this result as normal/abnormal . MPV (test code = 9.5 fL 9.8-13.0 L 81734-6) RDW-CV (test code = 14.5 % 12.1-15.4 788-0) RDW-SD (test code = 45.0 fL 38.5-51.6 94930-0) NRBC x10^3 (test code = See_Comment [Au tomated message] 0132083491) The system [employer] generated this result transmit maria del carmen reference range : 10*3/?L. The reference range was not used to interpret this result as normal/abnormal . NRBC/100 WBC (test code See_Comment [Au tomated message] = 5484544313) The system [facility] generated this result transmit maria del carmen reference range : 0.0 - 10.0 /100 WBC s. The reference r josep was not used to interpret this result as normal/abnormal . IPF % (test code = 6865566323) Lab Interpretation (test Abnormal code = 77001-6) [facility] GLUCOSE (AUTOMATED)2022-05-17 01:41:19 Test Item Value Reference Range Interpretation Comments POCT GLU (test code = 1062527174) 219 mg/dL 70-110 H Lab Interpretation (test code = Abnormal 49844-4) [facility] GLUCOSE (AUTOMATED)2022-05-17 01:41:19 Test Item Value Reference Range Interpretation Comments POCT GLU (test code = 6429750545) 219 mg/dL 70-110 H Lab Interpretation (test code = Abnormal 00359-7) [facility] GLUCOSE (AUTOMATED)2022-05-16 22:19:26 Test Item Value Reference Range Interpretation Comments POCT GLU (test code = 9924265283) 195 mg/dL 70-110 H Lab Interpretation (test code = Abnormal 46635-8) [facility] GLUCOSE (AUTOMATED)2022-05-16 22:19:26 Test Item Value Reference Range Interpretation Comments POCT GLU (test code = 8444460055) 195 mg/dL 70-110 H Lab Interpretation (test code = Abnormal 61470-2) [facility] GLUCOSE (AUTOMATED)2022-05-16 17:33:39 Test Item Value Reference Range Interpretation Comments POCT GLU (test code = 2477191923) 203 mg/dL 70-110 H Lab Interpretation (test code = Abnormal 50571-1) [facility] GLUCOSE (AUTOMATED)2022-05-16 17:33:39 Test Item Value Reference Range Interpretation Comments POCT GLU (test code = 9496391778) 203 mg/dL 70-110 H Lab Interpretation (test code = Abnormal 38255-6) [facility] WITHOUT [id number] 15:52:40 Test Item Value Reference Range Interpretation Comments WBC (test code = 6690-2) See_Comment [A utomated message] The system [employer] generated this result transmit maria del carmen reference range : 4.20 - 10.70 10*3/?L. The reference range was not used to interpret this result as normal/abnormal . RBC (test code = 789-8) See_Comment L [Au tomated message] The system [employer] generated this result transmit maria del carmen [...] 777-3) See_Comment [Au tomated message] The system [employer] generated this result transmit maria del carmen reference range : 150 - 328 10*3/?L. The reference range was not used to interpret this result as normal/abnormal . MPV (test code = 9.5 fL 9.8-13.0 L 91267-5) RDW-CV (test code = 15.0 % 12.1-15.4 788-0) RDW-SD (test code = 47.1 fL 38.5-51.6 66758-5) NRBC x10^3 (test code = See_Comment [Au tomated message] 4158946304) The system [employer] generated this result transmit maria del carmen reference range : 10*3/?L. The reference range was not used to interpret this result as normal/abnormal . NRBC/100 WBC (test code See_Comment [Au tomated message] = 5558729306) The system [facility] generated this result transmit maria del carmen reference range : 0.0 - 10.0 /100 WBC s. The reference r josep was not used to interpret this result as normal/abnormal . IPF % (test code = 2757177050) Lab Interpretation (test Abnormal code = 74559-6) [facility] WITHOUT [id number] 15:52:40 Test Item Value Reference Range Interpretation Comments WBC (test code = 6690-2) See_Comment [A utomated message] The system [facility] generated this result transmit maria del carmen reference range : 4.20 - 10.70 10*3/?L. The reference range was not used to interpret this result as normal/abnormal . RBC (test code = 789-8) See_Comment L [Au tomated message] The system [facility] generated this result transmit mraia del carmen reference range : 4.26 - [...] 777-3) See_Comment [Au tomated message] The system [employer] generated this result transmit maria del carmen reference range : 150 - 328 10*3/?L. The reference range was not used to interpret this result as normal/abnormal . MPV (test code = 9.5 fL 9.8-13.0 L 12880-4) RDW-CV (test code = 15.0 % 12.1-15.4 788-0) RDW-SD (test code = 47.1 fL 38.5-51.6 14205-3) NRBC x10^3 (test code = See_Comment [Au tomated message] 1243974718) The system [employer] generated this result transmit maria del carmen reference range : 10*3/?L. The reference range was not used to interpret this result as normal/abnormal . NRBC/100 WBC (test code See_Comment [Au tomated message] = 5278883491) The system [employer] generated this result transmit maria del carmen reference range : 0.0 - 10.0 /100 WBC s. The reference r josep was not used to interpret this result as normal/abnormal . IPF % (test code = 5706677345) Lab Interpretation (test Abnormal code = 08857-7) [facility] GLUCOSE (AUTOMATED)2022-05-16 14:09:00 Test Item Value Reference Range Interpretation Comments POCT GLU (test code = 4670846913) 194 mg/dL 70-110 H Lab Interpretation (test code = Abnormal 96702-1) [facility] GLUCOSE (AUTOMATED)2022-05-16 14:09:00 Test Item Value Reference Range Interpretation Comments POCT GLU (test code = 4478765582) 194 mg/dL 70-110 H Lab Interpretation (test code = Abnormal 20933-5) [facility]2022-11-14 12:17:29 Test Item Value Reference Range Interpretation Comments MAGNESIUM (test code = 1286510407) 1.5 mg/dL 1.7-2.4 L Lab Interpretation (test code = Abnormal 96816-9) [facility]2022-11-14 12:17:29 Test Item Value Reference Range Interpretation Comments MAGNESIUM (test code = 7238779606) 1.5 mg/dL 1.7-2.4 L Lab Interpretation (test code = Abnormal 57165-5) [facility] METABOLIC PANEL (NA, K, CL, CO2, GLUCOSE, BUN, CREATININE, CA)2022-05-16 12:17:28 Test Item Value Reference Range Interpretation Comments NA (test code = 134 mmol/L 135-145 L 2136479937) K (test code = 3.5 mmol/L 3.5-5.0 2869294000) CL (test code = 104 mmol/L 98-108 4093556254) CO2 TOTAL (test code = 27 mmol/L 23-31 7839281582) AGAP (test code = 2-16 5872064071) BUN (test code = 23 mg/dL 7-23 1024878517) GLUCOSE (test code = 179 mg/dL 70-110 H 4792354958) CREATININE (test code = 0.77 mg/dL 0.60-1.25 7265188101) CALCIUM (test code = 7.5 mg/dL 8.6-10.6 L 0882522671) eGFR (test code = mL/min/1.73m2 5291082944) PIPO (test code = PIPO) Association of [...] tests). Lab Interpretation Abnormal (test code = 58924-1) [facility] METABOLIC PANEL (NA, K, CL, CO2, GLUCOSE, BUN, CREATININE, CA)2022-05-16 12:17:28 Test Item Value Reference Range Interpretation Comments NA (test code = 134 mmol/L 135-145 L 1959198753) K (test code = 3.5 mmol/L 3.5-5.0 9636216153) CL (test code = 104 mmol/L 98-108 8853180009) CO2 TOTAL (test code = 27 mmol/L 23-31 2689756673) AGAP (test code = 2-16 0047668857) BUN (test code = 23 mg/dL 7-23 2168304698) GLUCOSE (test code = 179 mg/dL 70-110 H 5259236274) CREATININE (test code = 0.77 mg/dL 0.60-1.25 8615220942) CALCIUM (test code = 7.5 mg/dL 8.6-10.6 L 9423870630) eGFR (test code = mL/min/1.73m2 3855881447) PIPO (test code = PIPO) Association of [...] tests). Lab Interpretation Abnormal (test code = 07517-7) [facility] WITHOUT [id number] 11:41:44 Test Item Value Reference Range Interpretation Comments WBC (test code = 6690-2) See_Comment [A utomated message] The system [employer] generated this result transmit maria del carmen reference range : 4.20 - 10.70 10*3/?L. The reference range was not used to interpret this result as normal/abnormal . RBC (test code = 789-8) See_Comment L [Au tomated message] The system [employer] generated this result transmit maria del carmen [...] 777-3) See_Comment [Au tomated message] The system [employer] generated this result transmit maria del carmen reference range : 150 - 328 10*3/?L. The reference range was not used to interpret this result as normal/abnormal . MPV (test code = 9.6 fL 9.8-13.0 L 33766-7) RDW-CV (test code = 15.0 % 12.1-15.4 788-0) RDW-SD (test code = 47.2 fL 38.5-51.6 69156-5) NRBC x10^3 (test code = See_Comment [Au tomated message] 7693841876) The system [employer] generated this result transmit maria del carmen reference range : 10*3/?L. The reference range was not used to interpret this result as normal/abnormal . NRBC/100 WBC (test code See_Comment [Au tomated message] = 6967498148) The system [facility] generated this result transmit maria del carmen reference range : 0.0 - 10.0 /100 WBC s. The reference r josep was not used to interpret this result as normal/abnormal . IPF % (test code = 5436923731) Lab Interpretation (test Abnormal code = 67274-8) [facility] WITHOUT [id number] 11:41:44 Test Item Value Reference Range Interpretation Comments WBC (test code = 6690-2) See_Comment [A utomated message] The system [employer] generated this result transmit maria del carmen reference range : 4.20 - 10.70 10*3/?L. The reference range was not used to interpret this result as normal/abnormal . RBC (test code = 789-8) See_Comment L [Au tomated message] The system [facility] generated this result transmit maria del carmen [...] 777-3) See_Comment [Au tomated message] The system [employer] generated this result transmit maria del carmen reference range : 150 - 328 10*3/?L. The reference range was not used to interpret this result as normal/abnormal . MPV (test code = 9.6 fL 9.8-13.0 L 48686-9) RDW-CV (test code = 15.0 % 12.1-15.4 788-0) RDW-SD (test code = 47.2 fL 38.5-51.6 23322-6) NRBC x10^3 (test code = See_Comment [Au tomated message] 1149920257) The system [employer] generated this result transmit maria del carmen reference range : 10*3/?L. The reference range was not used to interpret this result as normal/abnormal . NRBC/100 WBC (test code See_Comment [Au tomated message] = 5129346190) The system [employer] generated this result transmit maria del carmen reference range : 0.0 - 10.0 /100 WBC s. The reference r josep was not used to interpret this result as normal/abnormal . IPF % (test code = 4325290034) Lab Interpretation (test Abnormal code = 66805-5) [facility] 22:32:10 Test Item Value Reference Range Interpretation Comments Height (test code = in 3324058911) Weight (test code = lbs 8549953945) Systolic BP (test mmHg code = 0672527578) Diastolic BP (test mmHg code = 2974164847) Heart Rate (test code bpm = 7508872062) Radiology Study observation (narrative) (test code = 14462-4) PIPO (test code = PIPO) ?Left?Ventricle: Left [...] mL of Lumason ultrasound enhancing agent used. [facility] 22:32:10 Test Item Value Reference Range Interpretation Comments Height (test code = in 3964514605) Weight (test code = lbs 2756325897) Systolic BP (test mmHg code = 2561785776) Diastolic BP (test mmHg code = 4745265015) Heart Rate (test code bpm = 9881353326) Radiology Study observation (narrative) (test code = 43782-6) PIPO (test code = PIPO) ?Left?Ventricle: Left [...] mL of Lumason ultrasound enhancing agent used. [facility] WITHOUT [id number] 22:15:46 Test Item Value Reference Range Interpretation Comments WBC (test code = 6690-2) See_Comment [A utomated message] The system [employer] generated this result transmit maria del carmen reference range : 4.20 - 10.70 10*3/?L. The reference range was not used to interpret this result as normal/abnormal . RBC (test code = 789-8) See_Comment L [Au tomated message] The system [employer] generated this result transmit maria del carmen [...] 777-3) See_Comment [Au tomated message] The system [employer] generated this result transmit maria del carmen reference range : 150 - 328 10*3/?L. The reference range was not used to interpret this result as normal/abnormal . MPV (test code = 9.7 fL 9.8-13.0 L 02013-4) RDW-CV (test code = 15.2 % 12.1-15.4 788-0) RDW-SD (test code = 48.1 fL 38.5-51.6 46515-3) NRBC x10^3 (test code = See_Comment [Au tomated message] 9792137576) The system [employer] generated this result transmit maria del carmen reference range : 10*3/?L. The reference range was not used to interpret this result as normal/abnormal . NRBC/100 WBC (test code See_Comment [Au tomated message] = 3275810194) The system [employer] generated this result transmit maria del carmen reference range : 0.0 - 10.0 /100 WBC s. The reference r josep was not used to interpret this result as normal/abnormal . IPF % (test code = 2184325952) Lab Interpretation (test Abnormal code = 77290-7) [facility] WITHOUT [id number] 22:15:46 Test Item Value Reference Range Interpretation Comments WBC (test code = 6690-2) See_Comment [A utomated message] The system [employer] generated this result transmit maria del carmen reference range : 4.20 - 10.70 10*3/?L. The reference range was not used to interpret this result as normal/abnormal . RBC (test code = 789-8) See_Comment L [Au tomated message] The system [employer] generated this result transmit maria del carmen [...] 777-3) See_Comment [Au tomated message] The system [employer] generated this result transmit maria del carmen reference range : 150 - 328 10*3/?L. The reference range was not used to interpret this result as normal/abnormal . MPV (test code = 9.7 fL 9.8-13.0 L 76730-3) RDW-CV (test code = 15.2 % 12.1-15.4 788-0) RDW-SD (test code = 48.1 fL 38.5-51.6 85756-6) NRBC x10^3 (test code = See_Comment [Au tomated message] 3921830195) The system [employer] generated this result transmit maria del carmen reference range : 10*3/?L. The reference range was not used to interpret this result as normal/abnormal . NRBC/100 WBC (test code See_Comment [Au tomated message] = 5212895340) The system [employer] generated this result transmit maria del carmen reference range : 0.0 - 10.0 /100 WBC s. The reference r josep was not used to interpret this result as normal/abnormal . IPF % (test code = 8307854335) Lab Interpretation (test Abnormal code = 18075-2) [facility] GLUCOSE (AUTOMATED)2022-05-15 22:09:19 Test Item Value Reference Range Interpretation Comments POCT GLU (test code = 6854093882) 208 mg/dL 70-110 H Lab Interpretation (test code = Abnormal 67277-6) [facility] GLUCOSE (AUTOMATED)2022-05-15 22:09:19 Test Item Value Reference Range Interpretation Comments POCT GLU (test code = 7059599542) 208 mg/dL 70-110 H Lab Interpretation (test code = Abnormal 59009-8) [facility] GLUCOSE (AUTOMATED)2022-05-15 17:51:24 Test Item Value Reference Range Interpretation Comments POCT GLU (test code = 0308418099) 227 mg/dL 70-110 H Lab Interpretation (test code = Abnormal 25279-0) [facility] GLUCOSE (AUTOMATED)2022-05-15 17:51:24 Test Item Value Reference Range Interpretation Comments POCT GLU (test code = 1727711237) 227 mg/dL 70-110 H Lab Interpretation (test code = Abnormal 08933-5) [facility] Packed RBC (in units), 1 Units 2022-05-15 14:38:44 Test Item Value Reference Range Interpretation Comments Cross Match Result Compatible (test code = 4409) ISBT Blood Type Code (test code = 725378) Unit Blood Type (test O Pos code = 4410) Unit Number (test [id number] code = 4411) Blood Expiration Date & Time (test code = 010117) Status Information Issued (test code = 4412) Product Red Blood Cells Identification (test code = 4413) Product Code (test [id number] Performed at [facility] code = 4414) Laboratory Services [facility] Blood [address] [address]Oqhy Free: [phone] A No. [id number] [facility] RBC (in units), 1 Units 2022-05-15 14:38:44 Test Item Value Reference Range Interpretation Comments Cross Match Result Compatible (test code = 4409) ISBT Blood Type Code (test code = 848125) Unit Blood Type (test O Pos code = 4410) Unit Number (test [id number] code = 4411) Blood Expiration Date & Time (test code = 290055) Status Information Issued (test code = 4412) Product Red Blood Cells Identification (test code = 4413) Product Code (test [id number] Performed at [facility] code = 4414) Laboratory Services [facility] Blood [address] [address]Wgxk Free: [phone] A No. [id number] [facility] GLUCOSE (AUTOMATED)2022-05-15 13:49:03 Test Item Value Reference Range Interpretation Comments POCT GLU (test code = 6940470575) 236 mg/dL 70-110 H Lab Interpretation (test code = Abnormal 20483-5) [facility] GLUCOSE (AUTOMATED)2022-05-15 13:49:03 Test Item Value Reference Range Interpretation Comments POCT GLU (test code = 7261658016) 236 mg/dL 70-110 H Lab Interpretation (test code = Abnormal 48925-9) [facility] (NA, K, CL, CO2, GLUCOSE, BUN, CREATININE, CA)2022-05-15 12:06:27 Test Item Value Reference Range Interpretation Comments NA (test code = 133 mmol/L 135-145 L 1293624709) K (test code = 4.1 mmol/L 3.5-5.0 5963998160) CL (test code = 102 mmol/L 98-108 7585690607) CO2 TOTAL (test code = 25 mmol/L 23-31 4234727287) AGAP (test code = 2-16 6431275931) BUN (test code = 46 mg/dL 7-23 H 3806759975) GLUCOSE (test code = 171 mg/dL 70-110 H 8652982637) CREATININE (test code = 1.02 mg/dL 0.60-1.25 4002188998) CALCIUM (test code = 7.9 mg/dL 8.6-10.6 L 5501743825) eGFR (test code = mL/min/1.73m2 7360734057) PIPO (test code = PIPO) Association of [...] tests). Lab Interpretation Abnormal (test code = 38105-4) [facility] 12:06:27 Test Item Value Reference Range Interpretation Comments MAGNESIUM (test code = 2970638208) 1.7 mg/dL 1.7-2.4 Lab Interpretation (test code = Normal 57635-4) [facility] METABOLIC PANEL (NA, K, CL, CO2, GLUCOSE, BUN, CREATININE, CA)2022-05-15 12:06:27 Test Item Value Reference Range Interpretation Comments NA (test code = 133 mmol/L 135-145 L 7835470123) K (test code = 4.1 mmol/L 3.5-5.0 3356862398) CL (test code = 102 mmol/L 98-108 9386284704) CO2 TOTAL (test code = 25 mmol/L 23-31 0419647560) AGAP (test code = 2-16 7809900372) BUN (test code = 46 mg/dL 7-23 H 8490922670) GLUCOSE (test code = 171 mg/dL 70-110 H 6877900527) CREATININE (test code = 1.02 mg/dL 0.60-1.25 6515710149) CALCIUM (test code = 7.9 mg/dL 8.6-10.6 L 2822582065) eGFR (test code = mL/min/1.73m2 3821589882) PIPO (test code = PIPO) Association of [...] tests). Lab Interpretation Abnormal (test code = 26387-8) [facility] 12:06:27 Test Item Value Reference Range Interpretation Comments MAGNESIUM (test code = 9387660726) 1.7 mg/dL 1.7-2.4 Lab Interpretation (test code = Normal 33790-6) [facility] WITHOUT [id number] 11:24:49 Test Item Value Reference Range Interpretation Comments WBC (test code = 6690-2) See_Comment [A utomated message] The system [employer] generated this result transmit maria del carmen reference range : 4.20 - 10.70 10*3/?L. The reference range was not used to interpret this result as normal/abnormal . RBC (test code = 789-8) See_Comment L [Au tomated message] The system [employer] generated this result transmit maria del carmen [...] 777-3) See_Comment [Au tomated message] The system [employer] generated this result transmit maria del carmen reference range : 150 - 328 10*3/?L. The reference range was not used to interpret this result as normal/abnormal . MPV (test code = 10.0 fL 9.8-13.0 14854-3) RDW-CV (test code = 14.4 % 12.1-15.4 788-0) RDW-SD (test code = 46.3 fL 38.5-51.6 05959-6) NRBC x10^3 (test code = See_Comment [Au tomated message] [id number]) The system [employer] generated this result transmit maria del carmen reference range : 10*3/?L. The reference range was not used to interpret this result as normal/abnormal . NRBC/100 WBC (test code See_Comment [Au tomated message] = [id number]) The system [facility] generated this result transmit maria del carmen reference range : 0.0 - 10.0 /100 WBC s. The reference r josep was not used to interpret this result as normal/abnormal . IPF % (test code = 7393283904) Lab Interpretation (test Abnormal code = 85941-1) [facility] WITHOUT [id number] 11:24:49 Test Item Value Reference Range Interpretation Comments WBC (test code = 6690-2) See_Comment [A utomated message] The system [employer] generated this result transmit maria del carmen reference range : 4.20 - 10.70 10*3/?L. The reference range was not used to interpret this result as normal/abnormal . RBC (test code = 789-8) See_Comment L [Au tomated message] The system [employer] generated this result transmit maria del carmen [...] 777-3) See_Comment [Au tomated message] The system [employer] generated this result transmit maria del carmen reference range : 150 - 328 10*3/?L. The reference range was not used to interpret this result as normal/abnormal . MPV (test code = 10.0 fL 9.8-13.0 57757-2) RDW-CV (test code = 14.4 % 12.1-15.4 788-0) RDW-SD (test code = 46.3 fL 38.5-51.6 84621-1) NRBC x10^3 (test code = See_Comment [Au tomated message] 3217396845) The system [employer] generated this result transmit maria del carmen reference range : 10*3/?L. The reference range was not used to interpret this result as normal/abnormal . NRBC/100 WBC (test code See_Comment [Au tomated message] = 4642499557) The system [facility] generated this result transmit maria del carmen reference range : 0.0 - 10.0 /100 WBC s. The reference r josep was not used to interpret this result as normal/abnormal . IPF % (test code = 5573704229) Lab Interpretation (test Abnormal code = 69374-3) [facility], [facility]lycer[facility], HDL[facility] - [id number] 04:46:50 Test Item Value Reference Range Interpretation Comments CHOL (test code = 160 mg/dL 120-200 7595797413) HDL (test code = 33 mg/dL See_Comment L [Automated message] [id number]) The system [employer] generated this result transmit maria del carmen reference range : >=40. The refer ence range was not u sed to interpret th is result as normal/abnormal . HDLC RATIO (test code = See_Comment [Au tomated message] 7497267777) The system [employer] generated this result transmit maria del carmen reference range : <=5.0. The refe rence range was not u sed to interpret th is result as normal/abnormal . TRIG (test code = 215 mg/dL 30-170 H 5123921012) LDL CHOL (test code = 84 mg/dL See_Comment [Auto mated message] 45726-1) The system [employer] generated this result transmit maria del carmen reference range : <=160. The refe rence range was not u sed to interpret th is result as normal/abnormal . VLDL (test code = 43 mg/dL 5-60 9093218530) Lab Interpretation (test Abnormal code = 59249-6) [facility] (Total Cholesterol, Triglycerides, HDL) - [id number] 04:46:50 Test Item Value Reference Range Interpretation Comments CHOL (test code = 160 mg/dL 120-200 2234156147) HDL (test code = 33 mg/dL See_Comment L [Automated message] [id number]) The system [employer] generated this result transmit maria del carmen reference range : >=40. The refer ence range was not u sed to interpret th is result as normal/abnormal . HDLC RATIO (test code = See_Comment [Au tomated message] 6169040831) The system [employer] generated this result transmit maria del carmen reference range : <=5.0. The refe rence range was not u sed to interpret th is result as normal/abnormal . TRIG (test code = 215 mg/dL 30-170 H 6892504616) LDL CHOL (test code = 84 mg/dL See_Comment [Auto mated message] 51135-1) The system [employer] generated this result transmit maria del carmen reference range : <=160. The refe rence range was not u sed to interpret th is result as normal/abnormal . VLDL (test code = 43 mg/dL 5-60 9785044664) Lab Interpretation (test Abnormal code = 55290-8) [facility] WITHOUT [id number] 04:40:50 Test Item Value Reference Range Interpretation Comments WBC (test code = 6690-2) See_Comment [A utomated message] The system [employer] generated this result transmit maria del carmen reference range : 4.20 - 10.70 10*3/?L. The reference range was not used to interpret this result as normal/abnormal . RBC (test code = 789-8) See_Comment L [Au tomated message] The system [employer] generated this result transmit maria del carmen [...] 777-3) See_Comment [Au tomated message] The system [employer] generated this result transmit maria del carmen reference range : 150 - 328 10*3/?L. The reference range was not used to interpret this result as normal/abnormal . MPV (test code = 9.9 fL 9.8-13.0 06757-1) RDW-CV (test code = 14.5 % 12.1-15.4 788-0) RDW-SD (test code = 47.1 fL 38.5-51.6 72062-7) NRBC x10^3 (test code = See_Comment [Au tomated message] 4815157763) The system [employer] generated this result transmit maria del carmen reference range : 10*3/?L. The reference range was not used to interpret this result as normal/abnormal . NRBC/100 WBC (test code See_Comment [Au tomated message] = 5034845010) The system [facility] generated this result transmit maria del carmen reference range : 0.0 - 10.0 /100 WBC s. The reference r josep was not used to interpret this result as normal/abnormal . IPF % (test code = 3728551182) Lab Interpretation (test Abnormal code = 24970-6) [facility] WITHOUT [id number] 04:40:50 Test Item Value Reference Range Interpretation Comments WBC (test code = 6690-2) See_Comment [A utomated message] The system [facility] generated this result transmit maria del carmen reference range : 4.20 - 10.70 10*3/?L. The reference range was not used to interpret this result as normal/abnormal . RBC (test code = 789-8) See_Comment L [Au tomated message] The system [facility] generated this result transmit maria del [...] 777-3) See_Comment [Au tomated message] The system [facility] generated this result transmit maria del carmen reference range : 150 - 328 10*3/?L. The reference range was not used to interpret this result as normal/abnormal . MPV (test code = 9.9 fL 9.8-13.0 90890-2) RDW-CV (test code = 14.5 % 12.1-15.4 788-0) RDW-SD (test code = 47.1 fL 38.5-51.6 49016-5) NRBC x10^3 (test code = See_Comment [Au tomated message] [id number]) The system [facility] generated this result transmit maria del carmen reference range : 10*3/?L. The reference range was not used to interpret this result as normal/abnormal . NRBC/100 WBC (test code See_Comment [Au tomated message] = 9422446702) The system [facility] generated this result transmit maria del carmen reference range : 0.0 - 10.0 /100 WBC s. The reference r josep was not used to interpret this result as normal/abnormal . IPF % (test code = 5714011859) Lab Interpretation (test Abnormal code = 26828-7) [facility] WITHOUT [id number] 22:20:51 Test Item Value Reference Range Interpretation Comments WBC (test code = 6690-2) See_Comment [A utomated message] The system [facility] generated this result transmit maria del carmen reference range : 4.20 - 10.70 10*3/?L. The reference range was not used to interpret this result as normal/abnormal . RBC (test code = 789-8) See_Comment L [Au tomated message] The system [facility] generated this result transmit maria del [...] 777-3) See_Comment [Au tomated message] The system [employer] generated this result transmit maria del carmen reference range : 150 - 328 10*3/?L. The reference range was not used to interpret this result as normal/abnormal . MPV (test code = 9.9 fL 9.8-13.0 24535-3) RDW-CV (test code = 14.5 % 12.1-15.4 788-0) RDW-SD (test code = 47.2 fL 38.5-51.6 88735-2) NRBC x10^3 (test code = See_Comment [Au tomated message] 8320153521) The system [employer] generated this result transmit maria del carmen reference range : 10*3/?L. The reference range was not used to interpret this result as normal/abnormal . NRBC/100 WBC (test code See_Comment [Au tomated message] = [id number]) The system [facility] generated this result transmit maria del carmen reference range : 0.0 - 10.0 /100 WBC s. The reference r josep was not used to interpret this result as normal/abnormal . IPF % (test code = 0198227490) Lab Interpretation (test Abnormal code = 98375-8) [facility] WITHOUT [id number] 22:20:51 Test Item Value Reference Range Interpretation Comments WBC (test code = 6690-2) See_Comment [A utomated message] The system [employer] generated this result transmit maria del carmen reference range : 4.20 - 10.70 10*3/?L. The reference range was not used to interpret this result as normal/abnormal . RBC (test code = 789-8) See_Comment L [Au tomated message] The system [employer] generated this result transmit maria del carmen [...] 777-3) See_Comment [Au tomated message] The system [facility] generated this result transmit maria del carmen reference range : 150 - 328 10*3/?L. The reference range was not used to interpret this result as normal/abnormal . MPV (test code = 9.9 fL 9.8-13.0 97589-7) RDW-CV (test code = 14.5 % 12.1-15.4 788-0) RDW-SD (test code = 47.2 fL 38.5-51.6 24901-6) NRBC x10^3 (test code = See_Comment [Au tomated message] [id number]) The system [facility] [employer] generated this result transmit maria del carmen reference range : 10*3/?L. The reference range was not used to interpret this result as normal/abnormal . NRBC/100 WBC (test code See_Comment [Au tomated message] = 9107314310) The system [facility] generated this result transmit maria del carmen reference range : 0.0 - 10.0 /100 WBC s. The reference r josep was not used to interpret this result as normal/abnormal . IPF % (test code = 3728335365) Lab Interpretation (test Abnormal code = 44078-6) [facility] Only[facility]2022-05-14 21:04:17 Test Item Value Reference Range Interpretation Comments ABO & RH (test code O Positive Performe d at [facility] = 20) Laboratory [facility] Blood Bank[address] [place] [address]Ehtu Free: [phone] A No. [id number] [facility] (Lab Only)2022-05-14 21:04:17 Test Item Value Reference Range Interpretation Comments ABO & RH (test code O Positive Performe d at [facility] = 20) Laboratory [facility] Blood [address] [address]Foqh Free: [phone] A No. [id number] [facility] - ONCE [id number] 19:35:37 Test Item Value Reference Range Interpretation Comments ABO & RH (test code O POSITIVE Performe d at [facility] = 20) Laboratory [facility] Blood [address] [address]Sk[address] Free: [phone] A No. [id number] IAT (test code = Negative Performed a t [facility] 1185) Laboratory [facility] Blood [address] [address]Drpa Free: [phone] A No. [id number] [facility] - [facility]CE [id number] 19:35:37 Test Item Value Reference Range Interpretation Comments ABO & RH (test code O POSITIVE Performe d at [facility] = 20) Laboratory [facility] Blood [address] [address]Qwmq Free: [phone] A No. [id number] IAT (test code = Negative Performed a t [facility] 1185) Laboratory [facility] Blood [address] [address]Ekqd Free: [phone] A No. [id number] [facility] GLUCOSE (AUTOMATED)2022-05-14 19:01:40 Test Item Value Reference Range Interpretation Comments POCT GLU (test code = 5626689028) 199 mg/dL 70-110 H Lab Interpretation (test code = Abnormal 23814-4) [facility] GLUCOSE (AUTOMATED)2022-05-14 19:01:40 Test Item Value Reference Range Interpretation Comments POCT GLU (test code = 1952541841) 199 mg/dL 70-110 H Lab Interpretation (test code = Abnormal 85932-9) [facility] GLUCOSE (AUTOMATED)2022-05-14 15:51:56 Test Item Value Reference Range Interpretation Comments POCT GLU (test code = 5431098942) 243 mg/dL 70-110 H Lab Interpretation (test code = Abnormal 30827-2) [facility] GLUCOSE (AUTOMATED)2022-05-14 15:51:56 Test Item Value Reference Range Interpretation Comments POCT GLU (test code = 4739981691) 243 mg/dL 70-110 H Lab Interpretation (test code = Abnormal 83516-5) [facility]"
[2023-05-22] MEDS ORDERED: HYDROCODONE/APAP 10/325 TAB ONE (16:47)
--- NOTE | 2023-05-22 17:53 | RAD REPORT ---
EXAM DESCRIPTION: RAD - Shoulder Left 2 View - 05/22/2023 5:41 pm CLINICAL HISTORY: PAIN COMPARISON: Humerus Left dated 05/22/2023 FINDINGS: There is an oblique fracture involving the proximal left humerus. Glenohumeral relationshi p also appear this abnormal likely indicating dislocation or near dislocation. Scapular Y-view may be helpful.
--- NOTE | 2023-05-22 17:54 | RAD REPORT ---
EXAM DESCRIPTION: RAD - Humerus Left - 05/22/2023 5:41 pm CLINICAL HISTORY: PAIN COMPARISON: <Comparisons> FINDINGS: Prominent diffuse osteopenia. Oblique fracture is present of proximal mass. Abnormal relat ionship of the glenohumeral joint is also noted, suggesting dislocation or near dislocation.
--- NOTE | 2023-05-22 17:59 | RAD REPORT ---
EXAM DESCRIPTION: RAD - Elbow Left 3 View - 05/22/2023 5:41 pm CLINICAL HISTORY: PAIN COMPARISON: <Comparisons> FINDINGS: Prominent diffuse osteopenia. Moderate soft tissue swelling is seen adjacent to the olecra non. Vascular calcifications. No acute fracture or dislocation seen.
--- NOTE | 2023-05-22 18:13 | EDPHYS ---
Physician Documentation [facility] Name: Thom Wright Age: 62 yrs Sex: Male : 1960 Arrival Date: 05/22/2023 Time: 15:52 Bed 11 Private MD: TONO Physician Andrew Trinidad HPI: 05/22 16:17 This 62 yrs old Male presents to ER via Wheelchair with complaints of Fall Injury. 7 16:17 Details of fall: The patient fell from an upright position, while walking. Onset: The 7 symptoms/episode began/occurred 1 week(s) ago. Associated injuries: The patient sustained left arm, painful injury. 62-year-old male states that 1 week ago he tripped on the sidewalk and landed on his left shoulder. Complains of left shoulder pain radiating down to his elbow. He states that he had a previous stroke with left-sided deficits and was unsure if he actually injured himself or it is due to his chronic pain. Denies head injury or LOC.. Historical: - Allergies: 16:20 NKDA; iw - PMHx: 16:20 COPD; stent; CVA; Hypertensive disorder; stroke ( deficit left side paralysis); iw diabetes mellitus; [place]; Pancreatitis; peripheral vascular disease; - PSHx: 16:20 Carotid endarterectomy; Femoral bypass; iw - Immunization history:: Adult Immunizations up to date. - Social history:: Smoking status: Patient reports the use of cigarette tobacco products. ROS: 16:17 Constitutional: Negative for fever, chills, and weight loss, Eyes: Negative for injury, jh7 pain, redness, and discharge, Neck: Negative for injury, pain, and swelling, Cardiovascular: Negative for chest pain, palpitations, and edema, Respiratory: Negative for shortness of breath, cough, wheezing, and pleuritic chest pain, Abdomen/GI: Negative for abdominal pain, nausea, vomiting, diarrhea, and constipation, Back: Negative for injury and pain, Skin: Negative for injury, rash, and discoloration, Neuro: Negative for headache, weakness, numbness, tingling, and seizure, 16:17 MS/extremity: Positive for injury or acute deformity, decreased range of motion, pain, tenderness, of the left arm, 16:17 All other systems are negative, Exam: 16:17 Constitutional: This is a well developed, well nourished patient who is awake, alert, jh7 and in no acute distress. Head/Face: Normocephalic, atraumatic. Neck: Trachea midline, no thyromegaly or masses palpated, and no cervical lymphadenopathy. Supple, full range of motion without nuchal rigidity, or vertebral point tenderness. No Meningismus. Cardiovascular: Regular rate and rhythm with a normal S1 and S2. No gallops, murmurs, or rubs. Normal PMI, no JVD. No pulse deficits. Respiratory: Lungs have equal breath sounds bilaterally, clear to auscultation and percussion. No rales, rhonchi or wheezes noted. No increased work of breathing, no retractions or nasal flaring. Abdomen/GI: Soft, non-tender, with normal bowel sounds. No distension or tympany. No guarding or rebound. No evidence of tenderness throughout. Skin: Warm, dry with normal turgor. Normal color with no rashes, no lesions, and no evidence of cellulitis. Neuro: Awake and alert, GCS 15, oriented to person, place, time, and situation. Sensory grossly intact. Normal gait. 16:17 Musculoskeletal/extremity: Extremities: pain, tenderness, ROM: the patient is contracted, Left arm contracted due to deficit from previous stroke, Pulses: are normal with no appreciated deficits, Perfusion: the extremity is normally perfused throughout, pink, warm, with brisk capillary refill, Sensation intact. Tenderness noted over the left humerus and elbow upon palpation.. Vital Signs: 16:18 BP 141 / 61; Pulse 74; Resp 16; Temp 98.4; Pulse Ox 95% on R/A; Weight 97.07 kg; Height iw 6 ft. 0 in. ; Pain 5/10; 18:22 BP 135 / 84; Pulse 78; Resp 18; Pulse Ox 98% on R/A; mb9 16:18 Body Mass Index 29.02 (97.07 kg, 182.88 cm) iw 16:18 Pain Scale: Adult iw MDM: 15:58 Patient medically screened. [facility] 18:06 Differential diagnosis: contusion, fracture, sprain, strain. Data reviewed: vital [facility] signs, nurses notes, radiologic studies, plain films. I considered the following discharge prescriptions or medication management in the emergency department Medications were administered in the Emergency Department. See /20 16:24 Order name: XRAY Shoulder LEFT 2 view; Complete Time: 18:01 [facility] 05/22 16:24 Order name: XRAY Humerus LEFT; Complete Time: 18:01 [facility] 05/22 16:24 Order name: XRAY Elbow LEFT 3 view; Complete Time: 18:01 [facility] 05/22 18:06 Order name: Shoulder Immobilizer; Complete Time: 18:08 [facility] Administered Medications: 16:37 Drug: [place] PO 10 mg-325 mg 1 tabs PO once Route: PO; mb9 17:42 Follow up: Response: No adverse reaction 9 Disposition Summary: 05/22/23 18:12 Discharge Ordered Notes: Location: Home [facility] Problem: new [facility] Symptoms: are unchanged [facility] Condition: Stable [facility] Diagnosis - Right Proximal Humerus Fracture [facility] - Left Proximal Humerus Fracture [facility] Followup: [facility] - With: Jayesh Martinez MD - When: 2 - 3 days - Reason: Recheck today's complaints Discharge Instructions: - Discharge Summary Sheet [facility] - Humerus Fracture Treated With Immobilization [facility] - How to Use a Shoulder Immobilizer [facility] Forms: - Medication Reconciliation Form [facility] - Thank You Letter [facility] - Patient Portal Instructions [facility] - Leadership Thank You Letter [facility] Signatures: Dispatcher [employer] Kamini Siddiqi, RN RN Shakila Reeves FNP FNP [facility] Faith Howell RN RN mb9
--- NOTE | 2023-05-22 18:13 | ER ---
Nurse's Notes [facility] Name: Thom Wright Age: 62 yrs Sex: Male : 1960 Arrival Date: 05/22/2023 Time: 15:52 Bed 11 Private MD: Diagnosis: Left Proximal Humerus Fracture Presentation: 05/22 16:17 Chief complaint: Patient's son or daughter states: was getting off his cart and his iw foot got caught, he fell on his left arm/shoulder,r his left side is weak from a previous stroke , happened a week ago, he has pain on movement. 16:17 Acuity: SONIA 3 iw 16:18 Coronavirus screen: At this time, the client does not indicate any symptoms associated iw with coronavirus-19. Ebola Screen: Patient negative for fever greater than or equal to 101.5 degrees Fahrenheit, and additional compatible Ebola Virus Disease symptoms Patient denies exposure to infectious person. Patient denies travel to an Ebola-affected area in the 21 days before illness onset. No symptoms or risks identified at this time. Initial Sepsis Screen: Does the patient meet any 2 criteria? No. Patient's initial sepsis screen is negative. Does the patient have a suspected source of infection? No. Patient's initial sepsis screen is negative. Risk Assessment: Do you want to hurt yourself or someone else? Patient reports no desire to harm self or others. Onset of symptoms was May 15, 2023. 16:18 Method Of Arrival: Wheelchair iw Historical: - Allergies: 16:20 NKDA; iw - PMHx: 16:20 COPD; stent; CVA; Hypertensive disorder; stroke ( deficit left side paralysis); iw diabetes mellitus; VA; Pancreatitis; peripheral vascular disease; - PSHx: 16:20 Carotid endarterectomy; Femoral bypass; iw - Immunization history:: Adult Immunizations up to date. - Social history:: Smoking status: Patient reports the use of cigarette tobacco products. Screenin:[facility] ED Fall Risk Assessment (Adult) History of falling in the last 3 months, mb9 including since admission Yes- single mechanical fall (1 pt) Confusion or Disorientation No (0 pts) Intoxicated or Sedated No (0 pts) Impaired Gait No (0 pts) Mobility Assist Device Used No (0 pt) Altered Elimination No (0 pt) Score/Fall Risk Level 0 - 2 = Low Risk Oriented to surroundings, Maintained a safe environment, Educated pt \T\ family on fall prevention, incl call for assistance when getting out of bed. Abuse screen: Denies threats or abuse. Nutritional screening: No deficits noted. Tuberculosis screening: No symptoms or risk factors identified. Assessment: 16:37 General: Appears in no apparent distress. Behavior is calm, cooperative. Pain: mb9 Complains of pain in left arm Pain does not radiate. Pain currently is 9 out of 10 on a pain scale. Quality of pain is described as throbbing, Pain began 2-3 days ago. Neuro: Celis Agitation-Sedation Scale (RASS): 0 - Alert and Calm Level of Consciousness is awake, alert, obeys commands, Oriented to person, place, time, situation, Appropriate for age. Cardiovascular: Patient's skin is warm and dry. Respiratory: Airway is patent Respiratory effort is even, unlabored, Respiratory pattern is regular, symmetrical. GI: No signs and/or symptoms were reported involving the gastrointestinal system. : No signs and/or symptoms were reported regarding the genitourinary system. Derm: Skin is pink, warm \T\ dry. Musculoskeletal: Range of motion: intact in all extremities. 17:42 Reassessment: No changes from previously documented assessment. Patient and/or family mb9 updated on plan of care and expected duration. Pain level reassessed. Patient is alert, oriented x 3, equal unlabored respirations, skin warm/dry/pink. 18:22 Reassessment: No changes from previously documented assessment. Patient and/or family mb9 updated on plan of care and expected duration. Pain level reassessed. Patient is alert, oriented x 3, equal unlabored respirations, skin warm/dry/pink. Vital Signs: 16:18 BP 141 / 61; Pulse 74; Resp 16; Temp 98.4; Pulse Ox 95% on R/A; Weight 97.07 kg; Height iw 6 ft. 0 in. ; Pain 5/10; 18:22 BP 135 / 84; Pulse 78; Resp 18; Pulse Ox 98% on R/A; mb9 16:18 Body Mass Index 29.02 (97.07 kg, 182.88 cm) iw 16:18 Pain Scale: Adult iw ED Course: 15:57 Patient arrived in ED. im 15:58 Shakila Cline FNP is PHCP. [facility] 15:58 Andrew Trinidad MD is Attending Physician. 7 16:18 Triage completed. iw 16:20 Arm band placed on. 16:32 Faith Howell, SALLIE is Primary Nurse. mb9 16:37 Placed in gown. Bed in low position. Call light in reach. Side rails up X 1. Adult w/ mb9 patient. Client placed on continuous cardiac and pulse oximetry monitoring. NIBP monitoring applied. 17:42 XRAY Shoulder LEFT 2 view In Process Unspecified. EDMS 17:42 XRAY Humerus LEFT In Process Unspecified. EDMS 17:42 XRAY Elbow LEFT 3 view In Process Unspecified. EDMS 18:12 Jayesh Martinez MD is Referral Physician. [facility] 18:22 No provider procedures requiring assistance completed. Patient did not have IV access mb9 during this emergency room visit. Administered Medications: 16:37 Drug: [place] PO 10 mg-325 mg 1 tabs PO once Route: PO; mb9 17:42 Follow up: Response: No adverse reaction mb9 Medication: 16:37 VIS not applicable for this client. mb9 Outcome: 18:12 Discharge ordered by . 7 18:22 Discharged to home via wheelchair, with family, mb9 18:22 Condition: stable 18:22 Discharge instructions given to patient, family, Instructed on discharge instructions, follow up and referral plans. Demonstrated understanding of instructions, follow-up care, 18:22 Patient left the ED. mb9 Signatures: Dispatcher [employer] Kamini Siddiqi RN RN Shakila Cline FNP [place] [id number] Faith Howell RN RN mb9 Yaquelin Holliday Corrections: (The following items were deleted from the chart) 16:20 16:17 Chief complaint: Patient's son or daughter states: was getting off his cart and iw his foot got caught, he fell on his left arm/shoulder,r his left side is paralyzed from a stroke , happened a week ago, he has pain on movement iw
[2023-05-22 19:44] VITALS: TEMP 98.4
[2023-05-22 19:45] VITALS: BP 135/84; O2SAT 98
== END 2023-05-22 18:22 | disposition home or self-care (01) ==
LOC: ER 15:52
DX: S42.202A Unspecified fracture of upper end of left humerus, initial encounter for closed fracture (principal); S42.201A Unspecified fracture of upper end of right humerus, initial encounter for closed fracture; I69.354 Hemiplegia and hemiparesis following cerebral infarction affecting left non-dominant side; I10 Essential (primary) hypertension; J44.9 Chronic obstructive pulmonary disease, unspecified; Z72.0 Tobacco use
CPT/HCPCS: 99283

== ENCOUNTER 2023-05-29 07:41 | Inpatient (IN) | payer MEDICARE ==
--- OUTSIDE RECORDS SUMMARY | 2023-05-29 07:47 | XMS REPORT | Continuity of Care Document ---
:1960 Author Organization [facility] t Address [address] [place] [address] [address] [place] [address] Care Team Providers Name Role Phone Pcp, Patient Does Not Have A Primary Care Physician +[phone] Britni Marvin DO Attending Clinician Doctor Unassigned, [place] Attending Clinician Unavailable Dora Murphy RN Attending Clinician Unavailable RANDY SY Attending Clinician Unavailable Antonia GARCIA, Randy Fisher Attending Clinician Joey Baker DO Attending Clinician Gregoria Cabrera MD Attending Clinician Jorge L GARCIA, Fritz Attending Clinician Chava Hurd MD Attending Clinician Artie Carrasco MD, Ayo Alvarado Attending Clinician [phone] FRITZ DALEY Attending Clinician Unavailable Ish GARCIA, Dm Attending Clinician RANDY SY Admitting Clinician Unavailable Randy Sy MD Admitting Clinician Artie Carrasco MD, Ayo Alvarado Admitting Clinician [phone] FRITZ DALEY Admitting Clinician Unavailable Payers Payer Name Policy Type Policy Number Effective Date Expiration Date [id number] 2022 (MEDICARE 00:00:00 REPLACEMENT HMO) Problems Condition [...] Branch S/P S/P Disease Recurre 2021-07 Overview: [facility] primary primary nce 15 Formattin ity o f angioplast angioplast 00:00: g of this [place] y with y with 00 note Medical coronary coronary might be Bran ch stent stent different from the original. 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 Disease Recurre 2021-07 Un alexi (current) [...] 2 Type 2 Disease Active 2021-07 Overview: [facility] diabetes diabetes 15 Formattin ity of mellitus [...] heart 0-12 ity of and and 00:00: [place] chronic chronic 00 Medical kidney kidney Branch [...] of 923 ity of coronary coronary 00:00: [place] artery artery 00 Medical Branch Allergies, Adverse Reactions, Alerts Allergy Allergy Status Severity Reaction(s) Onset Inactive Treating Comm ents Source Name Type Date Date Clinician NO KNOWN Drug Active Univers ALLERGIE Class ity of S [place] [facility] Social History Social Habit Start Date Stop Date Quantity Comments Source History of tobacco Passive smoker Un iversity of use [place] [facility] History SDOH Social Unive rsity of Connections [facility] Med ical Together Branch History SDOH Social Unive rsity of Connections [facility] Medical Branch History SDOH Social Unive rsity of Connections [place] Medical Membership Branch History SDOH Social Unive rsity of [facility] Medical Meetings Branch History SDOH Social Unive rsity of Connections [facility] Medical [place] Exposure to 2022-06-18 2022-06-28 Not sure University of SARS-CoV-2 (event) 00:00:00 03:00:00 [place] [facility] History SDOH Food 2022-06-28 2022-06-28 1 Univers ity of Worry 00:00:00 00:00:00 [place] [facility] History SDOH Food 2022-06-28 2022-06-28 1 Univers ity of Scarcity 00:00:00 00:00:00 [place] [facility] History SDOH 2022-06-28 2022-06-28 2 University o f Transport Med 00:00:00 00:00:00 [place] Medic al Branch History SDOH 2022-06-28 2022-06-28 2 University o f Transport Non-Med 00:00:00 00:00:00 [facility] edical Branch Tobacco use and 2022-06-28 2022-06-28 User of Universit y of exposure 00:00:00 00:00:00 smokeless [place] Medical tobacco Branch History SDRI 2022-06-28 2022-06-28 1 University o f Alcohol Frequency 00:00:00 00:00:00 [place] M edical Branch History SDRI 2022-06-28 2022-06-28 0 University o f Alcohol Std Drinks 00:00:00 00:00:00 [place] [facility] History SDOH 2022-06-28 2022-06-28 1 University o f Alcohol Binge 00:00:00 00:00:00 [place] Medic al Branch History [facility] Social 2022-06-28 2022-06-28 5 Unive rsity of Connections Phone 00:00:00 00:00:00 [facility] edical Branch History [facility] 2022-06-28 2022-06-28 0 University o f Physical Activity 00:00:00 00:00:00 [facility] edical DPW Branch History [facility] 2022-06-28 2022-06-28 0 University o f Physical Activity 00:00:00 00:00:00 [facility] edical MPS Branch History [facility] 2022-06-28 2022-06-28 4 University o f Financial 00:00:00 00:00:00 [facility] Alcohol intake 2022-06-28 2022-06-28 Ex-drinker University of 00:00:00 00:00:00 (finding) [facility] Alcohol Comment 2022-05-14 2022-05-14 Previous heavy Unive rsity of 00:00:00 00:00:[address] [facility] Sex Ass[birth year] At [birth year] Universit y of 00:00:00 00:00:00 [facility] Smoking Status Start Date Stop Date Source Tobacco smoking consumption Univ ersity of [facility] unknown Branch Smokes tobacco daily 2022-06-28 00:00:00 Univers ity of [place] Medical [place] Medications Ordered Filled Start Stop Current Ordering Indication Dosage Frequency Signature Comments Components Source Medication Medication Date Date Medication? Clinician (SIG) Name Name furosemide Yes [id number] 40mg Take 1 U nivers 40 mg 1-24 tablet by ity of tablet 00:00: mouth in [place] 00 the Medical morning. Branch metoprolol 2021-07 Yes 50mg Take 50 mg U nivers tartrate 50 2-28 by mouth ity of mg tablet 15:49: in the [place] 30 morning Medical and 50 mg Branch in the evening. traZODone 2021-07 Yes 50mg Take 50 mg Un alexi 50 mg 2-28 by mouth ity of tablet 15:49: at [place] 30 bedtime. Medical Branch metoprolol 2021-07 Yes 50mg Take 50 mg U nivers tartrate 50 2-28 by mouth ity of mg tablet 15:49: in the [place] 30 morning Medical and 50 mg Branch in the evening. traZODone 2021-07 Yes 50mg Take 50 mg Un alexi 50 mg 2-28 by mouth ity of tablet 15:49: at [place] [address] bedtime. Medical Branch metoprolol 2021-07 Yes 50mg Take 50 mg U nivers tartrate 50 2-28 by mouth ity of mg tablet 15:49: in the [place] 30 morning Medical and 50 mg Branch in the evening. traZODone 2021-07 Yes 50mg Take 50 mg Un alexi 50 mg 2-28 by mouth ity of tablet 15:49: at [place] [address] bedtime. Medical Branch metoprolol 2021-07 Yes 50mg Take 50 mg U nivers tartrate 50 2-28 by mouth ity of mg tablet 15:49: in the [place] 30 morning Medical and 50 mg Branch in the evening. traZODone 2021-07 Yes 50mg Take 50 mg Un alexi 50 mg 2-28 by mouth ity of tablet 15:49: at [place] [address] bedtime. Medical Branch traZODone 2021-07 Yes 50mg 50 mg, Univer s (DESYREL) 2-28 Oral, QHS, ity of tablet 50 03:00: First dose [place] mg 00 on [facility] 06/28/22 Branch at 2100, Until Discontinu ed, Routine atorvastati 2021-07 Yes 40mg 40 mg, Univ ers n (LIPITOR) 2-28 Oral, QHS, it y of tablet 40 03:00: First dose [place] mg 00 on [facility] 06/28/22 Branch at 2100, Until Discontinu ed, Routine insulin 2021-07 Yes 15U 15 Units, Unive rs glargine - Subcutaneo ity o f (LANTUS 02:00: us, BID, [place] U-100) 00 First dose Medical injection on [facility] 15 Units 06/28/22 at 2000, Until Discontinu ed, Routine losartan 2021-07 Yes 50mg 50 mg, Univers (COZAAR) 08-29 Oral, ity of tablet 50 22:00: DAILY, [place] mg 00 First dose Medical on [facility] 06/28/22 at 1600, Until Discontinu ed, Routine Sliding 2021-07 Yes Subcutaneo Univ ers Scale 2-27 us, TID ity of Insulin - 18:00: MEALS+HS, Sai as Lispro 00 First dose Medical (HumaLOG) + on [facility] Fsbg 06/28/22 Testing at 1200, Until Discontinu ed, Routine dextrose 2021-07 Yes 250mL 250 mL, IV Un alexi 10% (D10W) 08-29 Infusion, ity of bolus 15:07: PRN - SEE [place] infusion 22 INSTRUCTIO Medic al 250 mL [...] KIT) 18 Starting Medical injection 1 on [facility] mg 06/28/22 at 0907, Until Discontinu ed, ANAYA, Blood Glucose < or = 70 mg/dL and patient is unable to swallow or has mental changes. clopidogreL 2021-07 Yes 75mg 75 mg, Univ ers (PLAVIX) 75 08-29 Oral, ity of mg tablet 15:00: DAILY, [place] 75 mg 00 First dose Medical on [facility] 06/28/22 at 0900, Until Discontinu ed, Routine aspirin EC 2021-07 No 81mg 81 mg, Univ ers tablet 81 08-29 Oral, ity of mg 15:00: 20:43 DAILY, [place] 00 :30 First dose Medical on [facility] 06/28/22 at 0900, Until Discontinu ed pantoprazol 2021-07 Yes 40mg 40 mg, Univ ers e 08-29 Slow IV ity of (PROTONIX) 14:00: Push, [place] injection 00 Q12H, Medical 40 mg First dose Branch on [facility] 06/28/22 at 0800, Until Discontinu ed gabapentin 2021-07 Yes 200mg 200 mg, Uni vers (NEURONTIN) 08-29 Oral, TID, it y of capsule 200 14:00: First dose [place] mg 00 on [facility] 06/28/22 Branch at 0800, Until Discontinu ed, Routine acetaminoph 2021-07 Yes 650mg 650 mg, Un alexi en 08-29 Oral, ity of (TYLENOL) 10:01: Q6HPRN, [place] tablet 650 56 Starting Medic al mg on [facility] 06/28/22 at 0401, Until Discontinu ed, Routine, Pain (scale 1-3) insulin 2021-07 Yes 17U 17 Units, Unive rs glargine 1-16 Subcutaneo ity o f (LANTUS 03:00: us, [facility], [place] U-100) 00 First dose Medical injection on [facility] 17 Units 05/17/22 at 2100, Until Discontinu ed, Routine insulin 2021-07 Yes 17U 17 Units, Unive rs glargine 1-16 Subcutaneo ity o f (LANTUS 03:00: us, [facility], [place] U-100) 00 First dose Medical injection on [facility] 17 Units 05/17/22 at 2100, Until Discontinu ed, Routine insulin 2021-07 Yes [id number] 5U inject 5 Un alexi aspart 1-16 Units ity of U-100 00:00: under the [place] (NOVOLOG 00 skin in Medical FLEXPEN the Branch U-100 morning INSULIN) and 5 100 unit/mL Units at (3 mL) noon and 5 injection Units in the evening. Insulin 2021-07 Yes [id number] 17U inject 17 U nivers Detemir 100 1-16 Units ity of unit/mL (3 00:00: under the [place] mL) 00 skin in Medical injection the Branch morning and 17 Units in the evening. insulin 2021-07 Yes [id number] 5U inject 5 Un alexi aspart 1-16 Units ity of U-100 00:00: under the [place] (NOVOLOG 00 skin in Medical FLEXPEN the Branch U-100 morning INSULIN) and 5 100 unit/mL Units at (3 mL) noon and 5 injection Units in the evening. Insulin 2021-07 Yes [id number] 17U inject 17 U nivers Detemir 100 1-16 Units ity of unit/mL (3 00:00: under the [place] mL) 00 skin in Medical injection the Branch morning and 17 Units in the evening. insulin 2021-07 Yes [id number] 5U inject 5 Un alexi aspart 1-16 Units ity of U-100 00:00: under the [place] (NOVOLOG 00 skin in Medical FLEXPEN the Branch U-100 morning INSULIN) and 5 100 unit/mL Units at (3 mL) noon and 5 injection Units in the evening. Insulin 2021-07 Yes [id number] 17U inject 17 U nivers Detemir 100 1-16 Units ity of unit/mL (3 00:00: under the [place] mL) 00 skin in Medical injection the Branch morning and 17 Units in the evening. insulin 2021-07 Yes [id number] 5U inject 5 Un alexi aspart 1-16 Units ity of U-100 00:00: under the [place] (NOVOLOG 00 skin in Medical FLEXPEN the Branch U-100 morning INSULIN) and 5 100 unit/mL Units at (3 mL) noon and 5 injection Units in the evening. Insulin 2021-07 Yes [id number] 17U inject 17 U nivers Detemir 100 1-16 Units ity of unit/mL (3 00:00: under the [place] mL) 00 skin in Medical injection the Branch morning and 17 Units in the evening. insulin 2021-07 Yes [id number] 5U inject 5 Un alexi aspart 1-16 Units ity of U-100 00:00: under the [place] (NOVOLOG 00 skin in Medical FLEXPEN the Branch U-100 morning INSULIN) and 5 100 unit/mL Units at (3 mL) noon and 5 injection Units in the evening. Insulin 2021-07 Yes [id number] 17U inject 17 U nivers Detemir 100 1-16 Units ity of unit/mL (3 00:00: under the [place] mL) 00 skin in Medical injection the Branch morning and 17 Units in the evening. metoprolol 2021-07 Yes 50mg Take 50 mg U nivers tartrate 50 1-15 by mouth ity of mg tablet 18:59: in the [place] [address] morning Medical and 50 mg Branch in the evening. traZODone 2021-07 Yes 50mg Take 50 mg Un alexi 50 mg 1-15 by mouth ity of tablet 18:59: at [place] [address] bedtime. Medical Branch metoprolol 2021-07 Yes 50mg Take 50 mg U nivers tartrate 50 1-15 by mouth ity of mg tablet 18:59: in the [place] [address] morning Medical and 50 mg Branch in the evening. traZODone 2021-07 Yes 50mg Take 50 mg Un alexi 50 mg 1-15 by mouth ity of tablet 18:59: at [place] [address] bedtime. Medical Branch clopidogreL 2021-07 Yes 75mg 75 mg, Univ ers (PLAVIX) 75 1-15 Oral, ity of mg tablet 18:00: DAILY, [place] 75 mg 00 First dose Medical on [facility] 05/17/22 at 1200, Until Discontinu ed, Routine aspirin 2021-07 Yes 81mg 81 mg, Univers chewable 1-15 Oral, ity of tablet 81 18:00: DAILY, [place] mg 00 First dose Medical on [facility] 05/17/22 at 1200, Until Discontinu ed, Routine furosemide 2021-07 Yes 40mg 40 mg, Unive rs (LASIX) 1-15 Oral, ity of tablet 40 17:30: DAILY, [place] mg 00 First dose Medical on [facility] 05/17/22 at 1130, Until Discontinu ed, Routine amLODIPine 2021-07 Yes 5mg 5 mg, Univer s (NORVASC) 1-15 Oral, ity of tablet 5 mg 15:00: DAILY, [place] 00 First dose Medical on [facility] 05/17/22 at 0900, Until Discontinu ed, Routine pantoprazol 2021-07 Yes 40mg 40 mg, Univ ers e -15 Oral, ity of (PROTONIX) 15:00: DAILY, [place] EC tablet 00 First dose Medi reyna 40 mg on [facility] 05/17/22 at 0900, Until Discontinu ed, Routine amLODIPine 2021-07 Yes 5mg 5 mg, Univer s (NORVASC) 15 Oral, ity of tablet 5 mg 15:00: DAILY, [place] 00 First dose Medical on [facility] 05/17/22 at 0900, Until Discontinu ed, Routine pantoprazol 2021-07 Yes 40mg 40 mg, Univ ers e 15 Oral, ity of (PROTONIX) 15:00: DAILY, [place] EC tablet 00 First dose Medi reyna 40 mg on [facility] 05/17/22 at 0900, Until Discontinu ed, Routine potassium 2021-07 10meq 10 mEq, IV Univers chloride in 07-17 Piggyback, i ty of water 10 14:00: 22:30 Q2H, 4 [place] mEq/100 mL 00 :00 doses, Medical RTU 10 mEq First dose Bra nch on [facility] 05/17/22 at 0800, Last dose on [facility] 05/17/22 at 1400, Administer over 60 Minutes, 100 mL KCL 2021-07 40meq 40 mEq, Univers (KLOR-CON 07-17 Oral, ity of M20) tablet 13:45: 14:58 ONCE, 1 [place] 40 mEq 00 :00 dose, On Medical [facility] 05/17/22 at 0745, Routine furosemide 2021-07- No 40mg Take 40 mg Univers 40 mg 07-17 by mouth ity of tablet 11:19: 00:00 every [place] 35 :00 morning Medical and Branch evening. furosemide 2021-07 Yes [id number] 40mg Take 1 U nivers 40 mg 1-15 tablet by ity of tablet 00:00: mouth in [place] 00 the Medical morning. Branch furosemide 2021-07 Yes [id number] 40mg Take 1 U nivers 40 mg 1-15 tablet by ity of tablet 00:00: mouth in [place] 00 the Medical morning. Branch furosemide 2021-07 Yes [id number] 40mg Take 1 U nivers 40 mg 1-15 tablet by ity of tablet 00:00: mouth in [place] 00 the Medical morning. Branch furosemide 2021-07 Yes [id number] 40mg Take 1 U nivers 40 mg 1-15 tablet by ity of tablet 00:00: mouth in [place] 00 the Medical morning. Branch furosemide 2021-07 Yes [id number] 40mg Take 1 U nivers 40 mg 1-15 tablet by ity of tablet 00:00: mouth in [place] 00 the Medical morning. Branch furosemide 2021-07- No [id number] 40mg Take 1 Univers 40 mg 1-15 -24 tablet by ity of tablet 00:00: 00:00 mouth in [place] 00 :00 the Medical morning. Branch Insulin 2021-07- No [id number] 17U inject 17 Univers Detemir 100 -15 12-16 Units ity of unit/mL (3 00:00: 05:59 under the [place] mL) 00 :00 skin in Medical injection the Branch morning and 17 Units in the evening. Do all this for 30 days. pantoprazol 2021-07- No [id number] 40mg Take 1 Univers e 40 mg EC 1-15 12-16 tablet by ity of tablet 00:00: 05:59 mouth in [place] 00 :00 the Medical morning Branch and 1 tablet in the evening. Do all this for 30 days. pantoprazol 2021-07- No [id number] 40mg Take 1 Univers e 40 mg EC 1-15 12-16 tablet by ity of tablet 00:00: 05:59 mouth in [place] 00 :00 the Medical morning Branch and 1 tablet in the evening. Do all this for 30 days. metoprolol 2021-07 Yes 50mg Take 50 mg U nivers tartrate 50 1-14 by mouth ity of mg tablet 21:59: in the [place] [address] morning Medical and 50 mg Branch in the evening. traZODone 2021-07 Yes 50mg Take 50 mg Un alexi 50 mg 1-14 by mouth ity of tablet 21:59: at [place] [address] bedtime. Medical Branch furosemide 2021-07 Yes 40mg Take 40 mg U nivers 40 mg 1-14 by mouth ity of tablet 21:59: every [place] 40 morning Medical and Branch evening. levothyroxi 2021-07- No 50ug Take 50 Un alexi ne 50 mcg 1-14 11-12 mcg by ity of tablet 21:59: 00:00 mouth. [place] 40 :00 [facility] Branch levothyroxi 2021-07- No 50ug Take 50 Un alexi ne 50 mcg 1-14 11-12 mcg by ity of tablet 21:59: 00:00 mouth. [place] 40 :00 [facility] Branch magnesium 2021-07- No 400mg 400 mg, Uni vers oxide 1-14 11-14 Oral, ity of (MAG-OX 14:00: 14:15 ONCE, 1 [place] 400) tablet 00 :00 dose, On Medi reyna 400 mg [facility] Branch 05/16/22 at 0800, Routine HYDROcodone 2021-07 Yes 1{tbl} 1 tablet, Univers -acetaminop 1-14 Oral, ity of hen (NORCO 09:13: Q6HPRN, [place] 5) 5-325 mg 03 Starting Medi reyna tablet 1 on [facility] Branch tablet 05/16/22 at 0313, Until Discontinu ed, Routine, Pain (scale 7-10) HYDROcodone 2021-07 Yes 1{tbl} 1 tablet, Univers -acetaminop 1-14 Oral, ity of hen (NORCO 09:13: Q6HPRN, [place] 5) 5-325 mg 03 Starting Medi reyna tablet 1 on [facility] Branch tablet 05/16/22 at 0313, Until Discontinu ed, Routine, Pain (scale 7-10) traZODone 2021-07 Yes 50mg 50 mg, Univer s (DESYREL) 1-14 Oral, QHS, ity of tablet 50 03:00: First dose [place] mg 00 on [facility] 05/15/22 Branch at 2100, Until Discontinu ed, Routine traZODone 2021-07 Yes 50mg 50 mg, Univer s (DESYREL) 1-14 Oral, QHS, ity of tablet 50 03:00: First dose [place] mg 00 on [facility] 05/15/22 Branch at 2100, Until Discontinu [...] IV Push, ity of (PF)) 18:37: Q6HPRN, [place] injection 4 44 Starting Medi reyna mg on [place] Branch 05/15/22 at 1237, Until Discontinu ed, Routine, Nausea and Vomiting (N/V) ondansetron 2021-07 Yes 4mg 4 mg, Slow Univers (ZOFRAN 1-13 IV Push, ity of (PF)) 18:37: Q6HPRN, [place] injection 4 44 Starting Medi reyna mg on [place] Branch 05/15/22 at 1237, Until Discontinu ed, Routine, Nausea and Vomiting (N/V) peg-electro 2021-07- No 4000mL 4,000 mL, Univers lyte soln 07-1515 Oral, PRN ity of (GOLYTELY) 18:37: 04:11 - SEE [place] [id number] 44 :51 INSTRUCTIO Mi dical .74 -5.86 NS, Branch gram Starting solution on [place] 4,000 mL 05/15/22 at 1237, Until 05/16/22 at 2211, Routine, Bowel Prep, colonoscop y sulfur 2021-07- No [id number] 5mL 5 mL, Unive rs hexafluorid 07-15 Intravenou i ty of e microsphr 18:15: 16:16 s, ONCE, 1 [place] (LUMASON) 00 :00 dose, On Medica l injection 5 [place] Branch mL 05/15/22 at 1215, Routine
juice bar team member approving Restricted medication : JULIAN AMANDAHelena BRYAN ENRIQUEZ metoprolol 2021-07 Yes 25mg 25 mg, Unive rs tartrate 1-13 Oral, BID, ity o f (LOPRESSOR) 14:00: First dose [place] tablet 25 00 (after Medical mg last Branch modificati on) on [place] 05/15/22 at 0800, Until Discontinu ed, Routine metoprolol 2021-07 Yes 25mg 25 mg, Unive rs tartrate 1-13 Oral, BID, ity o f (LOPRESSOR) 14:00: First dose [place] tablet 25 00 (after Medical mg last Branch modificati on) on [place] 05/15/22 at 0800, Until Discontinu ed, Routine atorvastati 2021-07 Yes 40mg 40 mg, Univ ers n (LIPITOR) 1-13 Oral, QHS, it y of tablet 40 03:00: First dose [place] mg 00 on [facility] 05/14/22 Branch at 2100, Until Discontinu ed, Routine atorvastati 2021-07 Yes 40mg 40 mg, Univ ers n (LIPITOR) 1-13 Oral, QHS, it y of tablet 40 03:00: First dose [place] mg 00 on [facility] 05/14/22 Branch at 2100, Until Discontinu ed, Routine clopidogreL 2021-07- No 75mg 75 mg, Uni vers (PLAVIX) 75 07-14 Oral, ity of mg tablet 22:45: 00:36 DAILY, [place] 75 mg 00 :44 First dose Medical on [facility] 05/14/22 at 1645, Until Discontinu ed, Routine acetaminoph 2021-07- No 650mg 650 mg, U nivers en 07-14 Oral, ity of (TYLENOL) 21:30: 00:16 ONCE, 1 [place] tablet 650 00 :00 dose, On Medic al mg [facility] 05/14/22 at 1530, Routine lactated 2021-07- No [...] Discontinu ed, Routine Sliding 2021-07 Yes Subcutaneo [facility] ers Scale 1-12 us, TID ity of Insulin - 14:00: MEALS+HS, [place] Lispro 00 First dose Medical (HumaLOG) + on Sat Branch Fsbg 05/14/22 Testing at 0800, Until Discontinu ed, Routine Sliding 2021-07 [facility] ers Scale 1-12 us, TID ity of Insulin - 14:00: MEALS+HS, [place] Lispro 00 First dose Medical (HumaLOG) + on Sat Branch Fs 05/14/22 Testing at 0800, Until Discontinu ed, Routine metoprolol 2021-07- No 50mg 50 mg, [facility] ers tartrate 07-14 Oral, BID, ity of (LOPRESSOR) 14:00: 07:38 First dose [place] tablet 50 00 :55 on Sat Medical mg 05/14/22 Branch at 0800, Until Discontinu ed, Routine pantoprazol 2021-07- No 40mg 40 mg, Uni vers e 07-14 Slow IV ity of (PROTONIX) 14:00: 18:09 Push, [place] injection 00 :31 Q12H, Medical 40 mg First dose Branch on [facility] 05/14/22 at 0800, Until Discontinu ed acetaminoph 2021-07 Yes 650mg 650 mg, Un alexi en -12 Oral, ity of (TYLENOL) 11:42: Q6HPRN, [place] tablet 650 27 Starting Medic al mg on [facility] Branch 05/14/22 at 0542, Until Discontinu ed, Routine, Pain (scale 1-3) acetaminoph 2021-07 Yes 650mg 650 mg, Un alexi en -12 Oral, ity of (TYLENOL) 11:42: Q6HPRN, [place] tablet 650 27 Starting Medic al mg on [facility] Branch 05/14/22 at 0542, Until [...] 9-13 by mouth. ity of tablet 00:00: [facility] clopidogreL Yes 75mg Take 75 mg Univers 75 mg 9-13 by mouth. ity of tablet 00:00: [facility] pantoprazol Yes 40mg 40 mg. Univ ers e 40 mg EC 9-13 ity of tablet 00:00: [facility] clopidogreL 2021-0 Yes 75mg Take 75 mg Univers 75 mg 9-13 by mouth. ity of tablet 00:00: [facility] clopidogreL 0 Yes 75mg Take 75 mg Univers 75 mg 9-13 by mouth. ity of tablet 00:00: [facility] clopidogreL 2021-0 Yes 75mg Take 75 mg Univers 75 mg 9-13 by mouth. ity of tablet 00:00: Medical Branch clopidogreL 2022-0 Yes 75mg Take 75 mg Univers 75 mg 9-13 by mouth. ity of tablet 00:00: [place] [facility] Branch clopidogreL 2-0 Yes 75mg Take 75 mg Univers 75 mg 9-13 by mouth. ity of tablet 00:00: [place] Medical Branch pantoprazol 2021-0 2- No 40mg 40 mg. Uni vers e 40 mg EC 03-15 11-15 ity of tablet 00:00: 00:00 [place] : Medical Branch aspirin 81 2-0 Yes 81mg 81 mg. Unive rs mg Cap 03-09 ity of 00:00: [place] Medical Branch aspirin 81 2-0 Yes 81mg 81 mg. Unive rs mg Cap 03-09 ity of 00:00: [place] Medical Branch aspirin 81 2-0 Yes 81mg 81 mg. Unive rs mg Cap 03-09 ity of 00:00: [place] [address] Medical Branch aspirin 81 2-0 2021- No 81mg 81 mg. Univ ers mg Cap 03-09 ity of 00:00: 00:00 [place] 00 : Medical Branch gabapentin 2022-0 Yes 200mg Take 200 Un alexi 100 mg 7-23 mg by ity of capsule 00:00: mouth. [place] [address] Medical Branch gabapentin 2022-0 Yes 200mg Take 200 Un alexi 100 mg 7-23 mg by ity of capsule 00:00: mouth. [place] [address] Medical Branch gabapentin 2022-0 Yes 200mg Take 200 Un alexi 100 mg 7-23 mg by ity of capsule 00:00: mouth. [place] [address] Medical Branch gabapentin 2022-0 Yes 200mg Take 200 Un alexi 100 mg 7-23 mg by ity of capsule 00:00: mouth. [place] [address] Medical Branch gabapentin 2022-0 Yes 200mg Take 200 Un alexi 100 mg 7-23 mg by ity of capsule 00:00: mouth. [place] [address] Medical Branch gabapentin 2022-0 Yes 200mg Take 200 Un alexi 100 mg 7-23 mg by ity of capsule 00:00: mouth. [place] [address] Medical Branch gabapentin 2022-0 Yes 200mg Take 200 Un alexi 100 mg 7-23 mg by ity of capsule 00:00: mouth. [place] [address] Medical Branch atorvastati 2-0 3- No 40mg Take 40 mg Univers n 40 mg 7-23 11-03 by mouth. ity of tablet 00:00: 04:59 [place] 00 :00 Medical Branch atorvastati 2022-0 2023- No 40mg Take 40 mg Univers n 40 mg 01-22 by mouth. ity of tablet 00:00: 04:59 [place] 00 :00 [facility] atorvastati 2022-0 2023- No 40mg Take 40 mg Univers n 40 mg 01-22 by mouth. ity of tablet 00:00: 04:59 [place] 00 :00 [facility] atorvastati 2022-0 2023- No 40mg Take 40 mg Univers n 40 mg 01-22 by mouth. ity of tablet 00:00: 04:59 [place] 00 :00 [facility] atorvastati 2022-0 2023- No 40mg Take 40 mg Univers n 40 mg 01-22 by mouth. ity of tablet 00:00: 04:59 [place] 00 :00 [facility] atorvastati 2022-0 2023- No 40mg Take 40 mg Univers n 40 mg 01-22 by mouth. ity of tablet 00:00: 04:59 [place] 00 :00 [facility] atorvastati 2022-0 2023- No 40mg Take 40 mg Univers n 40 mg 01-22 by mouth. ity of tablet 00:00: 04:59 [place] 00 :00 Medical Branch losartan 50 2022-0 2023- No 50mg Take 50 mg Univers mg tablet 01-22 by mouth. ity of 00:00: 04:59 [place] 00 :00 [facility] losartan 50 2022-0 2023- No 50mg Take 50 mg Univers mg tablet 01-22 by mouth. ity of 00:00: 04:59 [place] 00 :00 [facility] losartan 50 2022-0 2023- No 50mg Take 50 mg Univers mg tablet 01-22 by mouth. ity of 00:00: 04:59 [place] 00 :00 [facility] losartan 50 2022-0 2023- No 50mg Take 50 mg Univers mg tablet 01-22 by mouth. ity of 00:00: 04:59 [place] 00 :00 Medical Branch losartan 50 2022-0 [...] 122 mm[Hg] Univer sity of pressure [facility] Diastolic blood 2022-06-29 18:12:00 58 mm[Hg] Unive rsity of pressure [facility] Heart rate 2022-06-29 18:12:00 82 /min [facility] Body temperature 2022-06-29 18:12:00 36.61 Candy Univ ersity of [place] [facility] Respiratory rate 2022-06-29 18:12:00 16 /min Univ [facility] [place] [facility] Oxygen saturation in 2022-06-29 18:12:00 96 /min University of Arterial blood by [facility] reyna Pulse oximetry Branch Body height 2022-06-28 09:01:00 182.9 cm [facility] [place] [facility] Body weight 2022-06-28 09:01:00 84.324 kg [facility] [place] [facility] BMI 2022-06-28 09:01:00 25.21 kg/m2 [facility] [place] [facility] Systolic blood 2022-05-17 21:59:00 162 mm[Hg] Univer sity of pressure [place] [facility] Diastolic blood 2022-05-17 21:59:00 76 mm[Hg] Unive rsity of pressure [place] [facility] Heart rate 2022-05-17 21:59:00 86 /min [facility] [place] [facility] Body temperature 2022-05-17 21:59:00 37.28 Candy Univ [facility] [place] [facility] Respiratory rate 2022-05-17 21:59:00 18 /min Univ [facility] [place] [facility] Oxygen saturation in 2022-05-17 21:59:00 95 /min University of Arterial blood by [facility] Pulse oximetry Branch Body weight 2022-05-14 11:02:00 86.18 kg [facility]i ty [facility] [place] [facility] Systolic blood 2022-05-16 22:02:00 134 mm[Hg] Univer sity of pressure [place] [facility] Diastolic blood 2022-05-16 22:02:00 83 mm[Hg] Unive rsity of pressure [place] [facility] Respiratory rate 2022-05-16 22:02:00 19 /min Univ [facility] [place] [facility] Oxygen saturation in 2022-05-16 22:02:00 98 /min University of Arterial blood by [facility] reyna Pulse oximetry Branch Heart rate 2022-05-16 22:00:00 78 /min [facility] [place] [facility] Body temperature 2022-05-16 14:00:00 36.22 Candy Univ [facility] [place] [facility] Body weight 2022-05-14 11:02:00 86.[address] [facility] Procedures Procedure Date / Time Performing Source Performed Clinician EXTERNAL PROVIDER RECORDS 2022-07-08 Doctor Lora royy of 06:01:00 Unassigned, No [facility] POCT GLUCOSE (AUTOMATED) 2022-06-29 Randy Sy rsity of 18:21:00 [facility] POCT GLUCOSE (AUTOMATED) 2022-06-29 [facility]00 [facility] CBC WITH DIFF 2022-06-29 An[facility]mo [facility] of 11:58:00 [facility] POCT GLUCOSE (AUTOMATED) 2022-06-29 [facility] 02:39:00 [facility] POCT GLUCOSE (AUTOMATED) 2022-06-28 [facility] of 23:11:00 [facility] CBC WITH DIFF 2022-06-28 Tremayne Briones [place] of 20:43:00 [facility] POCT GLUCOSE (AUTOMATED) 2022-06-28 [facility] 17:59:00 [facility] POCT GLUCOSE (AUTOMATED) 2022-06-28 [facility] 15:05:00 [facility] HEPATIC FUNCTION PANEL ([id number]) 2022-06-28 Tremayne Briones niversity of (ALB,T.PRO,BILI 11:52:00 [facility],BU/BC,ALT,AST,ALK PHOS) [place] BASIC METABOLIC PANEL (NA, K, CL, 2022-06-28 Tiffany Briones University of [facility], GLUCOSE, BUN, CREATININE, CA) 11:52:00 [facility] CBC WITH DIFF 2022-06-28 Tremayne Briones [place] of 11:52:00 [facility] PROTHROMBIN TIME / INR 2022-06-28 [facility] 11:[facility]00 [facility] ACTIVATED PARTIAL THRMPLAS JAMESON 2022-06-28 Tremayne Briones niversity of 11:52:00 [facility] HB ABO GROUPING 2022-06-28 Tremayne Briones [place] of 11:50:00 [facility] POCT GLUCOSE (AUTOMATED) 2022-05-17 Ayo [place] sity of 23:13:[address] [facility] POCT GLUCOSE (AUTOMATED) 2022-05-17 Ayo Al[place] sity of 22:00:[address] [facility] POCT GLUCOSE (AUTOMATED) 2022-05-17 Ayo Alva sity of 17:38:[address] [facility] POCT GLUCOSE (AUTOMATED) 2022-05-17 Ayo [place] sity of 13:57:[address] [facility] BASIC METABOLIC PANEL (NA, K, CL, 2022-05-17 [facility] of CO2, GLUCOSE, BUN, CREATININE, CA) 07:42:00 [facility] CBC WITHOUT DIFF 2022-05-17 [facility] of 07:42:00 [facility] BASIC METABOLIC PANEL (NA, K, CL, 2022-05-17 [facility] of CO2, GLUCOSE, BUN, CREATININE, CA) 07:42:00 [facility] CBC WITHOUT DIFF 2022-05-17 [facility] of 07:42:00 [facility] POCT GLUCOSE (AUTOMATED) 2022-05-17 Ayo [place] sity of 01:40:[address] [facility] POCT GLUCOSE (AUTOMATED) 2022-05-17 Ayo Alvaer sity of 01:40:[address] [facility] POCT GLUCOSE (AUTOMATED) 2022-05-16 Ayo Al[place] sity of 22:12:[address] [facility] POCT GLUCOSE (AUTOMATED) 2022-05-16 Ayo Alva sity of 22:12:[address] [facility] COLONOSCOPY (ENDO) 2022-05-16 [facility] of 20:04:24 [facility] COLONOSCOPY (ENDO) 2022-05-16 [facility] of 20:04:24 [facility] EGD (ENDO) 2022-05-16 [facility] of 19:53:16 [facility] EGD (ENDO) 2022-05-16 [facility] of 19:53:16 [facility] COLONOSCOPY 2022-05-16 [facility] ESOPHAGOGASTRODUODENOSCOPY 2022-05-16 [facility]:41:00 [facility] COLONOSCOPY 2022-05-16 [facility] of 19:41:00 [facility] ESOPHAGOGASTRODUODENOSCOPY 2022-05-16 Dm Deng [facility] rsity of 19:41:00 [facility] POCT GLUCOSE (AUTOMATED) 2022-05-16 Chava Hurd ity of 17:29:00 [facility] POCT GLUCOSE (AUTOMATED) 2022-05-16 Chava Hurd ity of 17:29:00 [facility] CT ABDOMEN WO CONTRAST 2022-05-16 Phillip, Katie Universit y of 15:37:03 [facility] CT ABDOMEN WO CONTRAST 2022-05-16 Phillip, Katie Universit y of 15:37:03 [facility] CBC WITHOUT DIFF 2022-05-16 Lorraine, [facility] of 15:29:00 [facility] CBC WITHOUT DIFF 2022-05-16 Lorraine [facility] of 15:29:00 [facility] POCT GLUCOSE (AUTOMATED) 2022-05-16 Chava Hurd ity of 14:07:00 [facility] POCT GLUCOSE (AUTOMATED) 2022-05-16 Chava Hurd ity of 14:07:00 [facility] MAGNESIUM 2022-05-16 [facility] of 11:26:00 [facility] BASIC METABOLIC PANEL (NA, K, CL, 2022-05-16 [facility] of CO2, GLUCOSE, BUN, CREATININE, CA) 11:26:00 [facility] CBC WITHOUT DIFF 2022-05-16 Lorraine [facility] of 11:26:00 [facility] MAGNESIUM 2022-05-16 [facility] of 11:26:00 [facility] BASIC METABOLIC PANEL (NA, K, CL, 2022-05-16 [facility] of CO2, GLUCOSE, BUN, CREATININE, CA) 11:26:00 [facility] CBC WITHOUT DIFF 2022-05-16 Lorraine [facility] of 11:26:00 [facility] POCT GLUCOSE (AUTOMATED) 2022-05-15 Chava Hurd ity of 22:07:00 [facility] POCT GLUCOSE (AUTOMATED) 2022-05-15 Chava Hurd ity of 22:07:00 [facility] CBC WITHOUT DIFF 2022-05-15 [place] Karla [place] of 22:00:00 [facility] CBC WITHOUT DIFF 2022-05-15 Lorraine [facility] of 22:00:00 [facility] POCT GLUCOSE (AUTOMATED) 2022-05-15 Chava Hurd ity of 17:49:00 [facility] POCT GLUCOSE (AUTOMATED) 2022-05-15 Chava Hurd ity of 17:49:00 [facility] TRANSTHORACIC ECHO (TTE) COMPLETE 2022-05-15 [facility] W/ CONTRAST 16:21:00 [facility] TRANSTHORACIC ECHO (TTE) COMPLETE 2022-05-15 [facility] W/ CONTRAST 16:21:00 [facility] TRANSFUSE PACKED RBC 2022-05-15 [facility] 14[facility] TRANSFUSE PACKED RBC 2022-05-15 [facility] of 14:45:00 [facility] PREPARE PACKED RBC 2022-05-15 [facility] of 14:38:44 [facility] PREPARE PACKED RBC 2022-05-15 [facility] of 14:38:44 [facility] XR SHOULDER 2+ VW LEFT 2022-05-15 [facility] 14:34[facility]00 [facility] Branch XR SHOULDER 2+ VW LEFT 2022-05-15 [place] [facility] y of 14:34:00 [facility] CBC WITHOUT DIFF 2022-05-15 Rajesh Nuñez [place] of 13:47:00 [facility] CBC WITHOUT DIFF 2022-05-15 Rajesh Nuñez [place] of 13:47:00 [facility] POCT GLUCOSE (AUTOMATED) 2022-05-15 Chava Hurd ity of 13:45:00 [facility] POCT GLUCOSE (AUTOMATED) 2022-05-15 Chava Hurd ity of 13:45:00 [facility] Branch MAGNESIUM 2022-05-15 [facility] of 10:42:00 [facility] BASIC METABOLIC PANEL (NA, K, CL, 2022-05-15 [facility] of CO2, GLUCOSE, BUN, CREATININE, CA) 10:42:00 [facility] CBC WITHOUT DIFF 2022-05-15 [facility] of 10:42:00 [facility] MAGNESIUM 2022-05-15 [facility] of 10:42:00 [facility] BASIC METABOLIC PANEL (NA, K, CL, 2022-05-15 [facility] of CO2, GLUCOSE, BUN, CREATININE, CA) 10:42:00 [facility] CBC WITHOUT DIFF 2022-05-15 [facility] of 10:42:00 [facility] LIPID PANEL ([id number])(TOTAL 2022-05-15 Katie Phillip [facility] sity of CHOLESTEROL, TRIGLYCERIDES, HDL) 04:26:00 [facility] CBC WITHOUT DIFF 2022-05-15 [facility] of 04:26:00 [facility] LIPID PANEL (43432)(TOTAL 2022-05-15 Kenji, Katie [facility] sity of CHOLESTEROL, TRIGLYCERIDES, HDL) 04:26:00 [facility] CBC WITHOUT DIFF 2022-05-15 [facility] of 04:26:00 [facility] CBC WITHOUT DIFF 2022-05-14 [facility] of 21:37:00 [facility] CBC WITHOUT DIFF 2022-05-14 [facility] of 21:37:00 [facility] ABORH CONFIRMATION (LAB ONLY) 2022-05-14 Katie Phillip Un iversity of 19:21:00 [facility] ABORH CONFIRMATION (LAB ONLY) 2022-05-14 Katie Phillip Un iversity of 19:21:00 [facility] POCT GLUCOSE (AUTOMATED) 2022-05-14 Joey Baker Univers ity of 18:51:00 [facility] POCT GLUCOSE (AUTOMATED) 2022-05-14 Joey Baker Univers ity of 18:51:00 [facility] HB ABO GROUPING 2022-05-14 [place], [facility] of 18:46:00 [facility] CBC WITHOUT DIFF 2022-05-14 [facility] of 18:46:00 [facility] HB ABO GROUPING 2022-05-14 [facility] of 18:46:00 [facility] CBC WITHOUT DIFF 2022-05-14 [facility] of 18:46:00 [facility] POCT GLUCOSE (AUTOMATED) 2022-05-14 Joey Baker [facility] ity of 15:46:00 [facility] POCT GLUCOSE (AUTOMATED) 2022-05-14 Joey Baker [facility] ity of 15:46:00 [facility] N-TERMINAL PRO-BNP 2022-05-[address] [facility] of 12:50:00 [facility] MAGNESIUM 2022-05-14 Phillip, [facility] of 12:50:00 [facility] HEPATIC FUNCTION PANEL ([id number]) 2022-05-14 Katie Phillip niversity of (ALB,T.PRO,BILI 12:50:00 [place] [facility],BU/BC,ALT,AST,ALK PHOS) [place] BASIC METABOLIC PANEL (NA, K, CL, 2022-05-[address] [facility] of CO2, GLUCOSE, BUN, CREATININE, CA) 12:50:00 [facility] CBC WITH DIFF 2022-05-[address] [facility] of 12:50:00 [facility] GLYCOSYLATED HEMOGLOBIN (A1C) 2022-05-14 Katie Phillip iversity of 12:50:00 [facility] PROTHROMBIN TIME / INR 2022-05-14 Kenji [facility] y of 12:50:00 [facility] N-TERMINAL PRO-BNP 2022-05-[address] [facility] of 12:50:00 [facility] MAGNESIUM 2022-05-[address] [facility] of 12:50:00 [facility] HEPATIC FUNCTION PANEL (25366) 2022-05-14 Katie Phillip U niversity of (ALB,T.PRO,BILI 12:50:00 [place] [facility] T,BU/BC,ALT,AST,ALK PHOS) [place] BASIC METABOLIC PANEL (NA, K, CL, 2022-05-[address] [facility] of CO2, GLUCOSE, BUN, CREATININE, CA) 12:50:00 [facility] CBC WITH DIFF 2022-05-14 Katie Phillip University of 12:50:00 [facility] GLYCOSYLATED HEMOGLOBIN (A1C) 2022-05-14 Katie Phillip Un iversity of 12:50:00 [facility] PROTHROMBIN TIME / INR 2022-05-14 Katie Phillip Universit y of 12:50:00 [facility] HOSPITAL ADMISSION 2022-05-14 [facility] of 06:01:00 Unassigned, No [facility] Encounters Start End Encounter Admission Attending Care Care Encounter Source Date/Time Date/Time Type Type Clinicians Facility Department ID 2022-07-21 2022-07-[address] [facility] 1.2.840.114 [id number] Univers 00:00:00 00:00:00 Britni PRIMARY 350.1.13.10 it [place] [id number] Mi dical 390 Branch 2022-07-08 2022-07-08 Orders Doctor PAULINO 1.2.840.114 [id number] Univers 00:00:00 00:00:00 Only Unassigned, EVELYN 350.1.13.10 ity of [place] [facility] 4.2.7.2.686 Sai as [id number] [facility] 009 Branch 2022-06-30 2022-06-30 Transition MurphyEVELIN 1.2.840.114 [id number] Univers 00:00:00 00:00:00 of Care Dora GODOYY 350.1.13.10 [place] [id number] [facility] 403 Branch 2022-06-28 2022-06-29 Outpatient U RANDY SY [facility] MARCO [id number] Univers 02:44:00 15:49:[address] [facility] 2022-06-28 2022-06-29 Hospital Randy Sy 1.2.840.114 [id number] Univers 02:44:00 15:49:00 Encounter Sesung EVELYN 350.1.13.10 ity of HOSPITAL 4.2.7.2.686 Sai as [id number] [facility] 095 Branch 2022-05-18 2022-05-18 Transition EVELIN Murphy 1.2.840.114 [id number] Univers 00:00:00 00:00:00 of Nishant ELLISON 350.1.13.10 it y [place] 4[place]2.7.2.686 [place] [id number] [facility] 403 Branch 2022-05-14 2022-05-17 Hospital Joey Baker 1.2.840.11 [id number] Univers 04:59:00 18:59:00 Encounter Gregoria CabreraY 350.1.13.10 ity [facility] 4.2.7.2.686 [place] Chava Hurd [id number] Medical AlvaAyo jackson 099 Branch 2022-05-14 2022-05-17 Inpatient U [facility] [id number] Univers 04:59:00 18:59:00 [facility] ity [facility] 2022-05-16 2022-05-16 [facility] 1.2.840.114 [id number] Univers 15:07:00 16:02:00 Dm HOLT 350.1.13.10 it y of SCIENCES 4.2.7.2.686 Sai as BLDG [id number] [facility] 020 Branch 2022-04-27 2022-04-27 Outpatient DMG DMG [id number] Devoted 00:00:00 00:00:00 [id number] Medica l Group 2022-04-27 2022-04-27 Outpatient DMG DMG [id number] Devoted 00:00:00 00:00:00 [id number] Medica l Group 2022-04-27 2022-04-27 Outpatient DMG DMG [id number] Devoted 00:00:00 00:00:00 [id number] Medica l Group 2022-04-27 2022-04-27 Outpatient DMG DMG [id number] Devoted 00:00:00 00:00:00 [id number] Medica l Group 2022-04-27 2022-04-27 Outpatient DMG DMG [id number] Devoted 00:00:00 00:00:00 [id number] Medica l Group 2022-04-27 2022-04-27 Outpatient DMG DMG [id number] Devoted 00:00:00 00:00:00 [id number] Medica l Group 2022-04-27 2022-04-27 Outpatient DMG DMG [id number] Devoted 00:00:00 00:00:00 [id number] Medica l Group 2022-04-27 2022-04-27 Outpatient DMG DMG [id number] Devoted 00:00:00 00:00:00 [id number] Medica l Group 2022-02-24 2022-02-24 Outpatient DMG DMG [id number] Devoted 00:00:00 00:00:00 [id number] Medica l Group Results Test Description Test Time Test Comments Results Result Comments Source POCT GLUCOSE (AUTOMATED) 2022-06-29 18:22:02 Test Item Value Reference Range Interpretation Comme nts POCT GLU (test code = 1919960301) 248 mg/dL 70-110 H Lab Interpretation (test code = 22683-9) Abnormal [facility] GLUCOSE (AUTOMATED)2022-06-29 15:35:16 Test Item Value Reference Range Interpretation Comments POCT GLU (test code = 1443530848) 167 mg/dL 70-110 H Lab Interpretation (test code = Abnormal 46856-7) [facility] GLUCOSE (AUTOMATED)2022-06-29 02:41:00 Test Item Value Reference Range Interpretation Comments POCT GLU (test code = 9038408244) 153 mg/dL 70-110 H Lab Interpretation (test code = Abnormal 72546-1) [facility] GLUCOSE (AUTOMATED)2022-06-28 23:12:05 Test Item Value Reference Range Interpretation Comments POCT GLU (test code = 4142897001) 158 mg/dL 70-110 H Lab Interpretation (test code = Abnormal 95170-6) [facility] GLUCOSE (AUTOMATED)2022-06-28 18:01:20 Test Item Value Reference Range Interpretation Comments POCT GLU (test code = 3309262110) 172 mg/dL 70-110 H Lab Interpretation (test code = Abnormal 71863-0) [facility] GLUCOSE (AUTOMATED)2022-06-28 15:58:01 Test Item Value Reference Range Interpretation Comments POCT GLU (test code = 8963042917) 153 mg/dL 70-110 H Lab Interpretation (test code = Abnormal 53787-7) [facility]30928[facility] (ALB,T.PRO,BILI T,BU/BC,ALT,AST,ALK PHOS)2022-06-28 12:47:20 Test Item Value Reference Range Interpretation Comments TOTAL BILI (test code = 8152829734) 0.4 mg/dL 0.1-1.1 BILI UNCON (test code = 3577139097) 0.1 mg/dL 0.1-1.1 BILI CONJ (test code = 6050476194) 0.0 mg/dL 0.0-0.3 T PROTEIN (test code = 6141835464) 6.7 g/dL 6.3-8.2 ALBUMIN (test code = 6132803032) 3.6 g/dL 3.5-5.0 ALK PHOS (test code = 7216854282) 120 U/L 34-122 ALTv (test code = 1742-6) 17 U/L 5-50 AST(SGOT) (test code = 1702783868) 27 U/L 13-40 Lab Interpretation (test code = Normal 64380-1) [facility] (NA, K, CL, CO2, GLUCOSE, BUN, CREATININE, CA)2022-06-28 12:47:19 Test Item Value Reference Range Interpretation Comments NA (test code = 133 mmol/L 135-145 L 9711679806) K (test code = 4.0 mmol/L 3.5-5.0 7803459518) CL (test code = 103 mmol/L 98-108 2937738028) CO2 TOTAL (test code = 27 mmol/L 23-31 3715055548) AGAP (test code = 2-16 2023013996) BUN (test code = 45 mg/dL 7-23 H 3993629983) GLUCOSE (test code = 134 mg/dL 70-110 H 4866244220) CREATININE (test code = 1.18 mg/dL 0.60-1.25 9762740996) CALCIUM (test code = 8.6 mg/dL 8.6-10.6 0667183859) eGFR (test code = mL/min/1.73m2 4755303657) PIPO (test code = PIPO) Association of [...] tests). Lab Interpretation Abnormal (test code = 47557-7) [facility] - ONCE [id number] 12:34:39 Test Item Value Reference Range Interpretation Comments ABO & RH (test code O POSITIVE Performe d at [facility] = 20) Laboratory Serv [facility] Blood [facility]3 [address] [facility] s [address]Hhay Free: [phone] A No. [id number] IAT (test code = Negative Performed a t [facility] 1185) Laboratory Serv [facility]3 [address] [facility] s [address]Kmrf Free: [phone] A No. [id number] [facility]TT2022-[facility]-27 12:28:19 Test Item Value Reference Range Interpretation Comments APTT Patient (test code = See_Comment [ Automated message] 3173-2) The system whic h generated this result transmitted ref erence range: 26 - 36 Seconds. The re ference range was not u sed to interpret this result as normal/abnor mal. Lab Interpretation (test Normal code = 58749-6) [facility] HospitalProthrombin Time / [id number] 12:28:18 Test Item Value Reference Range Interpretation [...] tions. Lab Interpretation (test Normal code = 34616-1) [facility] WITH [id number] 12:26:17 Test Item Value Reference Range Interpretation [...] RDW-SD (test code = 49.7 fL 38.5-51.6 85934-3) RDW-CV (test code = 15.9 % 12.1-15.4 H 788-0) PLT (test code = See_Comment [Automated 777-3) message] The sy stem which generated this result transmitted reference range : 150 - 328 10*3/ ?L. The reference r josep was not used to interpret this result as normal/abnormal . MPV (test code = 9.6 fL 9.8-13.0 L 66010-7) NRBC/100 WBC (test See_Comment [Automat ed code = 6609233142) message] The system which generated this result transmitted reference range : 0.0 - 10.0 /100 WBCs. The refer ence range was not u sed to interpret th is result as normal/abnormal . NRBC x10^3 (test code See_Comment [Auto mated = 4673337395) message] The s ystem which generated this result transmitted reference range : 10*3/?L. The reference range was not used to interpret this result as normal/abnormal . GRAN MAT (NEUT) % 67.6 % (test code = 770-8) IMM GRAN % (test code 0.70 % = 0182290404) LYMPH % (test code = 20.7 % 736-9) MONO % (test code = 7.1 % 5905-5) EOS % (test code = 3.5 % 713-8) BASO % (test code = 0.4 % 706-2) GRAN MAT x10^3(ANC) 4.57 10*3/uL 1.99-6.95 (test code = 2383038443) IMM GRAN x10^3 (test 0.05 10*3/uL 0.00-0.06 code = 0419212558) LYMPH x10^3 (test code 1.40 10*3/uL 1.09-3.23 = 731-0) MONO x10^3 (test code 0.48 10*3/uL 0.36-1.02 = 742-7) EOS x10^3 (test code = 0.24 10*3/uL 0.06-0.53 711-2) BASO x10^3 (test code 0.03 10*3/uL 0.01-0.09 = 704-7) Lab Interpretation Abnormal (test code = 89912-3) [facility] GLUCOSE (AUTOMATED)2022-05-17 23:15:41 Test Item Value Reference Range Interpretation Comments POCT GLU (test code = 0390650708) 348 mg/dL 70-110 H Lab Interpretation (test code = Abnormal 81187-2) [facility] GLUCOSE (AUTOMATED)2022-05-17 22:01:36 Test Item Value Reference Range Interpretation Comments POCT GLU (test code = 2495985028) 366 mg/dL 70-110 H Lab Interpretation (test code = Abnormal 37078-5) [facility] GLUCOSE (AUTOMATED)2022-05-17 17:39:43 Test Item Value Reference Range Interpretation Comments POCT GLU (test code = 3151072277) 253 mg/dL 70-110 H Lab Interpretation (test code = Abnormal 94907-1) [facility] GLUCOSE (AUTOMATED)2022-05-17 13:58:09 Test Item Value Reference Range Interpretation Comments POCT GLU (test code = 3722522379) 194 mg/dL 70-110 H Lab Interpretation (test code = Abnormal 22458-3) [facility]NA, K, CL, CO2, GLUCOSE, BUN, CREATININE, CA)2022-05-17 08:24:41 Test Item Value Reference Range Interpretation Comments NA (test code = 131 mmol/L 135-145 L 1444291775) K (test code = 3.4 mmol/L 3.5-5.0 L 2708148360) CL (test code = 98 mmol/L 98-108 4700028706) CO2 TOTAL (test code = 31 mmol/L 23-31 8665932461) AGAP (test code = 2-16 5953880219) BUN (test code = 12 mg/dL 7-23 2507084505) GLUCOSE (test code = 221 mg/dL 70-110 H 0673365627) CREATININE (test code = 0.75 mg/dL 0.60-1.25 0860530520) CALCIUM (test code = 7.3 mg/dL 8.6-10.6 L 6572443804) eGFR (test code = mL/min/1.73m2 1667492015) PIPO (test code = PIPO) Association of [...] tests). Lab Interpretation Abnormal (test code = 40684-7) [facility] METABOLIC PANEL (NA, K, CL, CO2, GLUCOSE, BUN, CREATININE, CA)2022-05-17 08:24:41 Test Item Value Reference Range Interpretation Comments NA (test code = 131 mmol/L 135-145 L 7585474506) K (test code = 3.4 mmol/L 3.5-5.0 L 6933219543) CL (test code = 98 mmol/L 98-108 5587455062) CO2 TOTAL (test code = 31 mmol/L 23-31 3137629558) AGAP (test code = 2-16 6931001881) BUN (test code = 12 mg/dL 7-23 2421112799) GLUCOSE (test code = 221 mg/dL 70-110 H 1620680413) CREATININE (test code = 0.75 mg/dL 0.60-1.25 0832419235) CALCIUM (test code = 7.3 mg/dL 8.6-10.6 L 0994050967) eGFR (test code = mL/min/1.73m2 5530084927) PIPO (test code = PIPO) Association of [...] tests). Lab Interpretation Abnormal (test code = 97479-2) [facility] WITHOUT [id number] 08:02:55 Test Item Value Reference Range Interpretation Comments WBC (test code = 6690-2) See_Comment [A utomated message] The system [employer] generated this result transmit maria del carmen reference range : 4.20 - 10.70 10*3/?L. The reference range was not used to interpret this result as normal/abnormal . RBC (test code = 789-8) See_Comment L [Au tomated message] The system [employer] generated this result transmit maria del carmen [...] 777-3) See_Comment [Au tomated message] The system [employer] generated this result transmit maria del carmen reference range : 150 - 328 10*3/?L. The reference range was not used to interpret this result as normal/abnormal . MPV (test code = 9.5 fL 9.8-13.0 L 79659-5) RDW-CV (test code = 14.5 % 12.1-15.4 788-0) RDW-SD (test code = 45.0 fL 38.5-51.6 15771-1) NRBC x10^3 (test code = See_Comment [Au tomated message] 9272842690) The system [employer] generated this result transmit maria del carmen reference range : 10*3/?L. The reference range was not used to interpret this result as normal/abnormal . NRBC/100 WBC (test code See_Comment [Au tomated message] = 0061704675) The system [facility] generated this result transmit maria del carmen reference range : 0.0 - 10.0 /100 WBC s. The reference r josep was not used to interpret this result as normal/abnormal . IPF % (test code = 9395362547) Lab Interpretation (test Abnormal code = 16098-9) [facility] WITHOUT [id number] 08:02:55 Test Item Value Reference Range Interpretation Comments WBC (test code = 6690-2) See_Comment [A utomated message] The system [employer] generated this result transmit maria del carmen reference range : 4.20 - 10.70 10*3/?L. The reference range was not used to interpret this result as normal/abnormal . RBC (test code = 789-8) See_Comment L [Au tomated message] The system [employer] generated this result transmit maria del carmen [...] 777-3) See_Comment [Au tomated message] The system [employer] generated this result transmit maria del carmen reference range : 150 - 328 10*3/?L. The reference range was not used to interpret this result as normal/abnormal . MPV (test code = 9.5 fL 9.8-13.0 L 54579-2) RDW-CV (test code = 14.5 % 12.1-15.4 788-0) RDW-SD (test code = 45.0 fL 38.5-51.6 52979-0) NRBC x10^3 (test code = See_Comment [Au tomated message] 5366566288) The system [employer] generated this result transmit maria del carmen reference range : 10*3/?L. The reference range was not used to interpret this result as normal/abnormal . NRBC/100 WBC (test code See_Comment [Au tomated message] = 4883299667) The system [facility] generated this result transmit maria del carmen reference range : 0.0 - 10.0 /100 WBC s. The reference r josep was not used to interpret this result as normal/abnormal . IPF % (test code = 6037658521) Lab Interpretation (test Abnormal code = 93121-8) [facility] GLUCOSE (AUTOMATED)2022-05-17 01:41:19 Test Item Value Reference Range Interpretation Comments POCT GLU (test code = 1893483669) 219 mg/dL 70-110 H Lab Interpretation (test code = Abnormal 34719-1) [facility] GLUCOSE (AUTOMATED)2022-05-17 01:41:19 Test Item Value Reference Range Interpretation Comments POCT GLU (test code = 2679437776) 219 mg/dL 70-110 H Lab Interpretation (test code = Abnormal 41368-7) [facility] GLUCOSE (AUTOMATED)2022-05-16 22:19:26 Test Item Value Reference Range Interpretation Comments POCT GLU (test code = 7409537657) 195 mg/dL 70-110 H Lab Interpretation (test code = Abnormal 43144-6) [facility] GLUCOSE (AUTOMATED)2022-05-16 22:19:26 Test Item Value Reference Range Interpretation Comments POCT GLU (test code = 0340988309) 195 mg/dL 70-110 H Lab Interpretation (test code = Abnormal 78566-6) [facility] GLUCOSE (AUTOMATED)2022-05-16 17:33:39 Test Item Value Reference Range Interpretation Comments POCT GLU (test code = 3697485442) 203 mg/dL 70-110 H Lab Interpretation (test code = Abnormal 28456-5) [facility] GLUCOSE (AUTOMATED)2022-05-16 17:33:39 Test Item Value Reference Range Interpretation Comments POCT GLU (test code = 0735095515) 203 mg/dL 70-110 H Lab Interpretation (test code = Abnormal 00038-1) [facility] WITHOUT [id number] 15:52:40 Test Item Value Reference Range Interpretation Comments WBC (test code = 6690-2) See_Comment [A utomated message] The system [employer] generated this result transmit maria del carmen reference range : 4.20 - 10.70 10*3/?L. The reference range was not used to interpret this result as normal/abnormal . RBC (test code = 789-8) See_Comment L [Au tomated message] The system [employer] generated this result transmit maria del carmen [...] 777-3) See_Comment [Au tomated message] The system [employer] generated this result transmit maria del carmen reference range : 150 - 328 10*3/?L. The reference range was not used to interpret this result as normal/abnormal . MPV (test code = 9.5 fL 9.8-13.0 L 26509-9) RDW-CV (test code = 15.0 % 12.1-15.4 788-0) RDW-SD (test code = 47.1 fL 38.5-51.6 16565-5) NRBC x10^3 (test code = See_Comment [Au tomated message] 8197317472) The system [employer] generated this result transmit maria del carmen reference range : 10*3/?L. The reference range was not used to interpret this result as normal/abnormal . NRBC/100 WBC (test code See_Comment [Au tomated message] = 9790665128) The system [facility] generated this result transmit maria del carmen reference range : 0.0 - 10.0 /100 WBC s. The reference r josep was not used to interpret this result as normal/abnormal . IPF % (test code = 6800054240) Lab Interpretation (test Abnormal code = 14950-2) [facility] WITHOUT [id number] 15:52:40 Test Item Value Reference Range Interpretation Comments WBC (test code = 6690-2) See_Comment [A utomated message] The system [facility] generated this result transmit maria del carmen reference range : 4.20 - 10.70 10*3/?L. The reference range was not used to interpret this result as normal/abnormal . RBC (test code = 789-8) See_Comment L [Au tomated message] The system [facility] generated this result transmit maria del [...] 777-3) See_Comment [Au tomated message] The system [employer] generated this result transmit maria del carmen reference range : 150 - 328 10*3/?L. The reference range was not used to interpret this result as normal/abnormal . MPV (test code = 9.5 fL 9.8-13.0 L 86365-7) RDW-CV (test code = 15.0 % 12.1-15.4 788-0) RDW-SD (test code = 47.1 fL 38.5-51.6 77613-4) NRBC x10^3 (test code = See_Comment [Au tomated message] 6284979571) The system [employer] generated this result transmit maria del carmen reference range : 10*3/?L. The reference range was not used to interpret this result as normal/abnormal . NRBC/100 WBC (test code See_Comment [Au tomated message] = 8601390977) The system [employer] generated this result transmit maria del carmen reference range : 0.0 - 10.0 /100 WBC s. The reference r josep was not used to interpret this result as normal/abnormal . IPF % (test code = 4222650408) Lab Interpretation (test Abnormal code = 35092-9) [facility] GLUCOSE (AUTOMATED)2022-05-16 14:09:00 Test Item Value Reference Range Interpretation Comments POCT GLU (test code = 5398692254) 194 mg/dL 70-110 H Lab Interpretation (test code = Abnormal 59986-7) [facility] GLUCOSE (AUTOMATED)2022-05-16 14:09:00 Test Item Value Reference Range Interpretation Comments POCT GLU (test code = 4455805204) 194 mg/dL 70-110 H Lab Interpretation (test code = Abnormal 77537-0) [facility]2022-11-14 12:17:29 Test Item Value Reference Range Interpretation Comments MAGNESIUM (test code = 9790054328) 1.5 mg/dL 1.7-2.4 L Lab Interpretation (test code = Abnormal 50594-3) [facility]2022-11-14 12:17:29 Test Item Value Reference Range Interpretation Comments MAGNESIUM (test code = 2588490816) 1.5 mg/dL 1.7-2.4 L Lab Interpretation (test code = Abnormal 85938-8) [facility] METABOLIC PANEL (NA, K, CL, CO2, GLUCOSE, BUN, CREATININE, CA)2022-05-16 12:17:28 Test Item Value Reference Range Interpretation Comments NA (test code = 134 mmol/L 135-145 L 3824301223) K (test code = 3.5 mmol/L 3.5-5.0 6648551117) CL (test code = 104 mmol/L 98-108 2194376464) CO2 TOTAL (test code = 27 mmol/L 23-31 2928770237) AGAP (test code = 2-16 0946043105) BUN (test code = 23 mg/dL 7-23 6325581618) GLUCOSE (test code = 179 mg/dL 70-110 H 1187966433) CREATININE (test code = 0.77 mg/dL 0.60-1.25 2763413736) CALCIUM (test code = 7.5 mg/dL 8.6-10.6 L 0246741709) eGFR (test code = mL/min/1.73m2 7065616136) PIPO (test code = PIPO) Association of [...] tests). Lab Interpretation Abnormal (test code = 93503-1) [facility] METABOLIC PANEL (NA, K, CL, CO2, GLUCOSE, BUN, CREATININE, CA)2022-05-16 12:17:28 Test Item Value Reference Range Interpretation Comments NA (test code = 134 mmol/L 135-145 L 1039907760) K (test code = 3.5 mmol/L 3.5-5.0 7717644199) CL (test code = 104 mmol/L 98-108 2643730563) CO2 TOTAL (test code = 27 mmol/L 23-31 5081666423) AGAP (test code = 2-16 1880516269) BUN (test code = 23 mg/dL 7-23 0076845712) GLUCOSE (test code = 179 mg/dL 70-110 H 6112489476) CREATININE (test code = 0.77 mg/dL 0.60-1.25 4718808672) CALCIUM (test code = 7.5 mg/dL 8.6-10.6 L 0534165877) eGFR (test code = mL/min/1.73m2 8675681149) PIPO (test code = PIPO) Association of [...] tests). Lab Interpretation Abnormal (test code = 82294-7) [facility] WITHOUT [id number] 11:41:44 Test Item Value Reference Range Interpretation Comments WBC (test code = 6690-2) See_Comment [A utomated message] The system [employer] generated this result transmit maria del carmen reference range : 4.20 - 10.70 10*3/?L. The reference range was not used to interpret this result as normal/abnormal . RBC (test code = 789-8) See_Comment L [Au tomated message] The system [employer] generated this result transmit maria del carmen [...] 777-3) See_Comment [Au tomated message] The system [employer] generated this result transmit maria del carmen reference range : 150 - 328 10*3/?L. The reference range was not used to interpret this result as normal/abnormal . MPV (test code = 9.6 fL 9.8-13.0 L 84798-0) RDW-CV (test code = 15.0 % 12.1-15.4 788-0) RDW-SD (test code = 47.2 fL 38.5-51.6 45980-8) NRBC x10^3 (test code = See_Comment [Au tomated message] 3910727387) The system [employer] generated this result transmit maria del carmen reference range : 10*3/?L. The reference range was not used to interpret this result as normal/abnormal . NRBC/100 WBC (test code See_Comment [Au tomated message] = 5364580304) The system [facility] generated this result transmit maria del carmen reference range : 0.0 - 10.0 /100 WBC s. The reference r josep was not used to interpret this result as normal/abnormal . IPF % (test code = 2836115702) Lab Interpretation (test Abnormal code = 08928-8) [facility] WITHOUT [id number] 11:41:44 Test Item Value Reference Range Interpretation Comments WBC (test code = 6690-2) See_Comment [A utomated message] The system [employer] generated this result transmit maria del carmen reference range : 4.20 - 10.70 10*3/?L. The reference range was not used to interpret this result as normal/abnormal . RBC (test code = 789-8) See_Comment L [Au tomated message] The system [facility] generated this result transmit maria del [...] 777-3) See_Comment [Au tomated message] The system [employer] generated this result transmit maria del carmen reference range : 150 - 328 10*3/?L. The reference range was not used to interpret this result as normal/abnormal . MPV (test code = 9.6 fL 9.8-13.0 L 73043-8) RDW-CV (test code = 15.0 % 12.1-15.4 788-0) RDW-SD (test code = 47.2 fL 38.5-51.6 88994-9) NRBC x10^3 (test code = See_Comment [Au tomated message] 3317347357) The system [employer] generated this result transmit maria del carmen reference range : 10*3/?L. The reference range was not used to interpret this result as normal/abnormal . NRBC/100 WBC (test code See_Comment [Au tomated message] = 3261941749) The system [employer] generated this result transmit maria del carmen reference range : 0.0 - 10.0 /100 WBC s. The reference r josep was not used to interpret this result as normal/abnormal . IPF % (test code = 5640936086) Lab Interpretation (test Abnormal code = 81282-2) [facility] 22:32:10 Test Item Value Reference Range Interpretation Comments Height (test code = in 7619280528) Weight (test code = lbs 8812538551) Systolic BP (test mmHg code = 0995357600) Diastolic BP (test mmHg code = 4436906357) Heart Rate (test code bpm = 6670172124) Radiology Study observation (narrative) (test code = 73155-3) PIPO (test code = PIPO) ?Left?Ventricle: Left [...] mL of Lumason ultrasound enhancing agent used. [facility]15 22:32:10 Test Item Value Reference Range Interpretation Comments Height (test code = in 7928790855) Weight (test code = lbs 6593827375) Systolic BP (test mmHg code = 8025171345) Diastolic BP (test mmHg code = 2088694386) Heart Rate (test code bpm = 6297030239) Radiology Study observation (narrative) (test code = 26590-0) PIPO (test code = PIPO) ?Left?Ventricle: Left [...] mL of Lumason ultrasound enhancing agent used. [facility] WITHOUT [id number] 22:15:46 Test Item Value Reference Range Interpretation Comments WBC (test code = 6690-2) See_Comment [A utomated message] The system [employer] generated this result transmit maria del carmen reference range : 4.20 - 10.70 10*3/?L. The reference range was not used to interpret this result as normal/abnormal . RBC (test code = 789-8) See_Comment L [Au tomated message] The system [employer] generated this result transmit maria del carmen [...] 777-3) See_Comment [Au tomated message] The system [employer] generated this result transmit maria del carmen reference range : 150 - 328 10*3/?L. The reference range was not used to interpret this result as normal/abnormal . MPV (test code = 9.7 fL 9.8-13.0 L 43024-7) RDW-CV (test code = 15.2 % 12.1-15.4 788-0) RDW-SD (test code = 48.1 fL 38.5-51.6 08777-8) NRBC x10^3 (test code = See_Comment [Au tomated message] 9296839161) The system [employer] generated this result transmit maria del carmen reference range : 10*3/?L. The reference range was not used to interpret this result as normal/abnormal . NRBC/100 WBC (test code See_Comment [Au tomated message] = 8403788683) The [facility] generated this result transmit maria del carmen reference range : 0.0 - 10.0 /100 WBC s. The reference r josep was not used to interpret this result as normal/abnormal . IPF % (test code = 0382231170) Lab Interpretation (test Abnormal code = 61086-6) [facility] WITHOUT [id number] 22:15:46 Test Item Value Reference Range Interpretation Comments WBC (test code = 6690-2) See_Comment [A utomated message] The system [employer] generated this result transmit maria del carmen reference range : 4.20 - 10.70 10*3/?L. The reference range was not used to interpret this result as normal/abnormal . RBC (test code = 789-8) See_Comment L [Au tomated message] The system [employer] generated this result transmit maria del carmen [...] 777-3) See_Comment [Au tomated message] The system [employer] generated this result transmit maria del carmen reference range : 150 - 328 10*3/?L. The reference range was not used to interpret this result as normal/abnormal . MPV (test code = 9.7 fL 9.8-13.0 L 97008-2) RDW-CV (test code = 15.2 % 12.1-15.4 788-0) RDW-SD (test code = 48.1 fL 38.5-51.6 24600-2) NRBC x10^3 (test code = See_Comment [Au tomated message] 0714672002) The system [employer] generated this result transmit maria del carmen reference range : 10*3/?L. The reference range was not used to interpret this result as normal/abnormal . NRBC/100 WBC (test code See_Comment [Au tomated message] = 5512579657) The system [employer] generated this result transmit maria del carmen reference range : 0.0 - 10.0 /100 WBC s. The reference r josep was not used to interpret this result as normal/abnormal . IPF % (test code = 9105110657) Lab Interpretation (test Abnormal code = 10591-5) [facility] GLUCOSE (AUTOMATED)2022-05-15 22:09:19 Test Item Value Reference Range Interpretation Comments POCT GLU (test code = 6039913474) 208 mg/dL 70-110 H Lab Interpretation (test code = Abnormal 75235-0) [facility] GLUCOSE (AUTOMATED)2022-05-15 22:09:19 Test Item Value Reference Range Interpretation Comments POCT GLU (test code = 2604555063) 208 mg/dL 70-110 H Lab Interpretation (test code = Abnormal 14638-9) [facility] GLUCOSE (AUTOMATED)2022-05-15 17:51:24 Test Item Value Reference Range Interpretation Comments POCT GLU (test code = 5969721650) 227 mg/dL 70-110 H Lab Interpretation (test code = Abnormal 31272-0) [facility] GLUCOSE (AUTOMATED)2022-05-15 17:51:24 Test Item Value Reference Range Interpretation Comments POCT GLU (test code = 1009591419) 227 mg/dL 70-110 H Lab Interpretation (test code = Abnormal 76495-8) [facility] Packed RBC (in units), 1 Units 2022-05-15 14:38:44 Test Item Value Reference Range Interpretation Comments Cross Match Result Compatible (test code = 4409) ISBT Blood Type Code (test code = 765047) Unit Blood Type (test O Pos code = 4410) Unit Number (test [id number] code = 4411) Blood Expiration Date & Time (test code = 375261) Status Information Issued (test code = 4412) Product Red Blood Cells Identification (test code = 4413) Product Code (test [id number] Performed at [facility] code = 4414) Laboratory Services [facility] Blood [address] [address]Nhhp Free: [phone] A No. [id number] [facility] Packed RBC (in units), 1 Units 2022-05-15 14:38:44 Test Item Value Reference Range Interpretation Comments Cross Match Result Compatible (test code = 4409) ISBT Blood Type Code (test code = 834220) Unit Blood Type (test O Pos code = 4410) Unit Number (test [id number] code = 4411) Blood Expiration Date & Time (test code = 539323) Status Information Issued (test code = 4412) Product Red Blood Cells Identification (test code = 4413) Product Code (test [id number] Performed at [facility] code = 4414) Laboratory Services [facility] Blood [address] [address]Shcw Free: [phone] A No. [id number] [facility] GLUCOSE (AUTOMATED)2022-05-15 13:49:03 Test Item Value Reference Range Interpretation Comments POCT GLU (test code = 0874469378) 236 mg/dL 70-110 H Lab Interpretation (test code = Abnormal 21780-5) [facility] GLUCOSE (AUTOMATED)2022-05-15 13:49:03 Test Item Value Reference Range Interpretation Comments POCT GLU (test code = 9715436035) 236 mg/dL 70-110 H Lab Interpretation (test code = Abnormal 36881-3) [facility] (NA, K, CL, CO2, GLUCOSE, BUN, CREATININE, CA)2022-05-15 12:06:27 Test Item Value Reference Range Interpretation Comments NA (test code = 133 mmol/L 135-145 L 0592573898) K (test code = 4.1 mmol/L 3.5-5.0 3519583421) CL (test code = 102 mmol/L 98-108 0433205550) CO2 TOTAL (test code = 25 mmol/L 23-31 6399979503) AGAP (test code = 2-16 5703438925) BUN (test code = 46 mg/dL 7-23 H 0301453243) GLUCOSE (test code = 171 mg/dL 70-110 H 2949437004) CREATININE (test code = 1.02 mg/dL 0.60-1.25 5800089553) CALCIUM (test code = 7.9 mg/dL 8.6-10.6 L 0099993250) eGFR (test code = mL/min/1.73m2 6884514628) PIPO (test code = PIPO) Association of [...] tests). Lab Interpretation Abnormal (test code = 65768-4) [facility] 12:06:27 Test Item Value Reference Range Interpretation Comments MAGNESIUM (test code = 7269886301) 1.7 mg/dL 1.7-2.4 Lab Interpretation (test code = Normal 46393-5) [facility] METABOLIC PANEL (NA, K, CL, CO2, GLUCOSE, BUN, CREATININE, CA)2022-05-15 12:06:27 Test Item Value Reference Range Interpretation Comments NA (test code = 133 mmol/L 135-145 L 2610495303) K (test code = 4.1 mmol/L 3.5-5.0 0125076976) CL (test code = 102 mmol/L 98-108 3412132127) CO2 TOTAL (test code = 25 mmol/L 23-31 1651033844) AGAP (test code = 2-16 7252362149) BUN (test code = 46 mg/dL 7-23 H 7872091233) GLUCOSE (test code = 171 mg/dL 70-110 H 0840526055) CREATININE (test code = 1.02 mg/dL 0.60-1.25 0991833494) CALCIUM (test code = 7.9 mg/dL 8.6-10.6 L 4656771298) eGFR (test code = mL/min/1.73m2 7311208249) PIPO (test code = PIPO) Association of [...] tests). Lab Interpretation Abnormal (test code = 42612-9) [facility] 12:06:27 Test Item Value Reference Range Interpretation Comments MAGNESIUM (test code = 1109261697) 1.7 mg/dL 1.7-2.4 Lab Interpretation (test code = Normal 24389-2) [facility] [id number] 11:24:49 Test Item Value Reference Range Interpretation Comments WBC (test code = 6690-2) See_Comment [A utomated message] The system [employer] generated this result transmit maria del carmen reference range : 4.20 - 10.70 10*3/?L. The reference range was not used to interpret this result as normal/abnormal . RBC (test code = 789-8) See_Comment L [Au tomated message] The system [employer] generated this result transmit maria del carmen [...] 777-3) See_Comment [Au tomated message] The system [employer] generated this result transmit maria del carmen reference range : 150 - 328 10*3/?L. The reference range was not used to interpret this result as normal/abnormal . MPV (test code = 10.0 fL 9.8-13.0 63637-9) RDW-CV (test code = 14.4 % 12.1-15.4 788-0) RDW-SD (test code = 46.3 fL 38.5-51.6 77727-7) NRBC x10^3 (test code = See_Comment [Au tomated message] 6667697644) The system [employer] generated this result transmit maria del carmen reference range : 10*3/?L. The reference range was not used to interpret this result as normal/abnormal . NRBC/100 WBC (test code See_Comment [Au tomated message] = 4431050947) The system [facility] generated this result transmit maria del carmen reference range : 0.0 - 10.0 /100 WBC s. The reference r josep was not used to interpret this result as normal/abnormal . IPF % (test code = 1311604965) Lab Interpretation (test Abnormal code = 81436-2) [facility] WITHOUT [id number] 11:24:49 Test Item Value Reference Range Interpretation Comments WBC (test code = 6690-2) See_Comment [A utomated message] The system [employer] generated this result transmit maria del carmen reference range : 4.20 - 10.70 10*3/?L. The reference range was not used to interpret this result as normal/abnormal . RBC (test code = 789-8) See_Comment L [Au tomated message] The system [employer] generated this result transmit maria del carmen [...] 777-3) See_Comment [Au tomated message] The system [employer] generated this result transmit maria del carmen reference range : 150 - 328 10*3/?L. The reference range was not used to interpret this result as normal/abnormal . MPV (test code = 10.0 fL 9.8-13.0 98364-9) RDW-CV (test code = 14.4 % 12.1-15.4 788-0) RDW-SD (test code = 46.3 fL 38.5-51.6 19065-5) NRBC x10^3 (test code = See_Comment [Au tomated message] [id number]) The system [employer] generated this result transmit maria del carmen reference range : 10*3/?L. The reference range was not used to interpret this result as normal/abnormal . NRBC/100 WBC (test code See_Comment [Au tomated message] = 4160955332) The system [facility] generated this result transmit maria del carmen reference range : 0.0 - 10.0 /100 WBC s. The reference r josep was not used to interpret this result as normal/abnormal . IPF % (test code = 0757479804) Lab Interpretation (test Abnormal code = 48489-5) [facility], [facility]lycerides, HDL[facility] - [id number] 04:46:50 Test Item Value Reference Range Interpretation Comments CHOL (test code = 160 mg/dL 120-200 5409001648) HDL (test code = 33 mg/dL See_Comment L [Automated message] 5643327249) The system [employer] generated this result transmit maria del carmen reference range : >=40. The refer ence range was not u sed to interpret th is result as normal/abnormal . HDLC RATIO (test code = See_Comment [Au tomated message] 5476568612) The system [employer] generated this result transmit maria del carmen reference range : <=5.0. The refe rence range was not u sed to interpret th is result as normal/abnormal . TRIG (test code = 215 mg/dL 30-170 H [id number]) LDL CHOL (test code = 84 mg/dL See_Comment [Auto mated message] 54164-3) The system [employer] generated this result transmit maria del carmen reference range : <=160. The refe rence range was not u sed to interpret th is result as normal/abnormal . VLDL (test code = 43 mg/dL 5-60 1620363296) Lab Interpretation (test Abnormal code = 73079-4) [facility] (Total Cholesterol, Triglycerides, HDL) - [id number] 04:46:50 Test Item Value Reference Range Interpretation Comments CHOL (test code = 160 mg/dL 120-200 3599628703) HDL (test code = 33 mg/dL See_Comment L [Automated message] [id number]) The system [employer] generated this result transmit maria del carmen reference range : >=40. The refer ence range was not u sed to interpret th is result as normal/abnormal . HDLC RATIO (test code = See_Comment [Au tomated message] [id number]) The system [employer] generated this result transmit maria del carmen reference range : <=5.0. The refe rence range was not u sed to interpret th is result as normal/abnormal . TRIG (test code = 215 mg/dL 30-170 H [id number]) LDL CHOL (test code = 84 mg/dL See_Comment [Auto mated message] 53440-9) The system [employer] generated this result transmit maria del carmen reference range : <=160. The refe rence range was not u sed to interpret th is result as normal/abnormal . VLDL (test code = 43 mg/dL 5-60 8991877994) Lab Interpretation (test Abnormal code = 46351-6) [facility] WITHOUT [id number] 04:40:50 Test Item Value Reference Range Interpretation Comments WBC (test code = 6690-2) See_Comment [A utomated message] The system [employer] generated this result transmit maria del carmen reference range : 4.20 - 10.70 10*3/?L. The reference range was not used to interpret this result as normal/abnormal . RBC (test code = 789-8) See_Comment L [Au tomated message] The system [employer] generated this result transmit maria del carmen [...] 777-3) See_Comment [Au tomated message] The system [employer] generated this result transmit maria del carmen reference range : 150 - 328 10*3/?L. The reference range was not used to interpret this result as normal/abnormal . MPV (test code = 9.9 fL 9.8-13.0 52263-3) RDW-CV (test code = 14.5 % 12.1-15.4 788-0) RDW-SD (test code = 47.1 fL 38.5-51.6 90201-9) NRBC x10^3 (test code = See_Comment [Au tomated message] 9569918470) The system [employer] generated this result transmit maria del carmen reference range : 10*3/?L. The reference range was not used to interpret this result as normal/abnormal . NRBC/100 WBC (test code See_Comment [Au tomated message] = 1295726151) The system [facility] generated this result transmit maria del carmen reference range : 0.0 - 10.0 /100 WBC s. The reference r josep was not used to interpret this result as normal/abnormal . IPF % (test code = 4210223743) Lab Interpretation (test Abnormal code = 76588-8) [facility] WITHOUT [id number] 04:40:50 Test Item Value Reference Range Interpretation Comments WBC (test code = 6690-2) See_Comment [A utomated message] The system [facility] generated this result transmit maria del carmen reference range : 4.20 - 10.70 10*3/?L. The reference range was not used to interpret this result as normal/abnormal . RBC (test code = 789-8) See_Comment L [Au tomated message] The system [facility] generated this result transmit maria del [...] See_Comment [Au tomated message] The system [facility] generated this result transmit maria del carmen reference range : 150 - 328 10*3/?L. The reference range was not used to interpret this result as normal/abnormal . MPV (test code = 9.9 fL 9.8-13.0 97718-3) RDW-CV (test code = 14.5 % 12.1-15.4 788-0) RDW-SD (test code = 47.1 fL 38.5-51.6 89588-9) NRBC x10^3 (test code = See_Comment [Au tomated message] [id number]) The system [facility] generated this result transmit maria del carmen reference range : 10*3/?L. The reference range was not used to interpret this result as normal/abnormal . NRBC/100 WBC (test code See_Comment [Au tomated message] = 9029514465) The system [facility] generated this result transmit maria del carmen reference range : 0.0 - 10.0 /100 WBC s. The reference r josep was not used to interpret this result as normal/abnormal . IPF % (test code = 0754825249) Lab Interpretation (test Abnormal code = 21806-1) [facility] WITHOUT [id number] 22:20:51 Test Item Value Reference Range Interpretation Comments WBC (test code = 6690-2) See_Comment [A utomated message] The system [facility] generated this result transmit maria del carmen reference range : 4.20 - 10.70 10*3/?L. The reference range was not used to interpret this result as normal/abnormal . RBC (test code = 789-8) See_Comment L [Au tomated message] The system [facility] generated this result transmit maria del [...] 777-3) See_Comment [Au tomated message] The system [employer] generated this result transmit maria del carmen reference range : 150 - 328 10*3/?L. The reference range was not used to interpret this result as normal/abnormal . MPV (test code = 9.9 fL 9.8-13.0 31267-2) RDW-CV (test code = 14.5 % 12.1-15.4 788-0) RDW-SD (test code = 47.2 fL 38.5-51.6 85223-3) NRBC x10^3 (test code = See_Comment [Au tomated message] [id number]) The system [employer] generated this result transmit maria del carmen reference range : 10*3/?L. The reference range was not used to interpret this result as normal/abnormal . NRBC/100 WBC (test code See_Comment [Au tomated message] = 4693231187) The system [facility] generated this result transmit maria del carmen reference range : 0.0 - 10.0 /100 WBC s. The reference r josep was not used to interpret this result as normal/abnormal . IPF % (test code = 7063771354) Lab Interpretation (test Abnormal code = 10939-7) [facility] WITHOUT [id number] 22:20:51 Test Item Value Reference Range Interpretation Comments WBC (test code = 6690-2) See_Comment [A utomated message] The system [employer] generated this result transmit maria del carmen reference range : 4.20 - 10.70 10*3/?L. The reference range was not used to interpret this result as normal/abnormal . RBC (test code = 789-8) See_Comment L [Au tomated message] The system [employer] generated this result transmit maria del carmen [...] See_Comment [Au tomated message] The system [facility] generated this result transmit maria del carmen reference range : 150 - 328 10*3/?L. The reference range was not used to interpret this result as normal/abnormal . MPV (test code = 9.9 fL 9.8-13.0 55156-9) RDW-CV (test code = 14.5 % 12.1-15.4 788-0) RDW-SD (test code = 47.2 fL 38.5-51.6 86083-1) NRBC x10^3 (test code = See_Comment [Au tomated message] [id number]) The system [facility] generated this result transmit maria del carmen reference range : 10*3/?L. The reference range was not used to interpret this result as normal/abnormal . NRBC/100 WBC (test code See_Comment [Au tomated message] = 5452696899) The system [facility] generated this result transmit maria del carmen reference range : 0.0 - 10.0 /100 WBC s. The reference r josep was not used to interpret this result as normal/abnormal . IPF % (test code = 5350991881) Lab Interpretation (test Abnormal code = 19613-2) [facility] Only)2022-05-14 21:04:17 Test Item Value Reference Range Interpretation Comments ABO & RH (test code O Positive Performe d at [facility] = 20) Laboratory [facility] [place] [address]Ntwz Free: [phone] A No. [id number] [facility] (Lab Only)2022-05-14 21:04:17 Test Item Value Reference Range Interpretation Comments ABO & RH (test code O Positive Performe d at [facility] = 20) Laboratory [facility] Blood [address] [address]Gcqh Free: [phone] A No. [id number] [facility] - ONCE [id number] 19:35:37 Test Item Value Reference Range Interpretation Comments ABO & RH (test code O POSITIVE Performe d at [facility] = 20) Laboratory [facility] Blood [address] [address]Rjob Free: [phone] A No. [id number] IAT (test code = Negative Performed a t [facility] 1185) Laboratory [facility] Blood [address] [address]Mbuq Free: [phone] A No. [id number] [facility] [id number] 19:35:37 Test Item Value Reference Range Interpretation Comments ABO & RH (test code O POSITIVE Performe d at [facility] = 20) Laboratory [facility] Blood [address] [address]Sxuz Free: [phone] A No. [id number] IAT (test code = Negative Performed a t [facility] 1185) Laboratory [facility] Blood [address] [address]Omzs Free: [phone] A No. [id number] [facility] GLUCOSE (AUTOMATED)2022-05-14 19:01:40 Test Item Value Reference Range Interpretation Comments POCT GLU (test code = 1022443419) 199 mg/dL 70-110 H Lab Interpretation (test code = Abnormal 76696-6) [facility] GLUCOSE (AUTOMATED)2022-05-14 19:01:40 Test Item Value Reference Range Interpretation Comments POCT GLU (test code = 9484517874) 199 mg/dL 70-110 H Lab Interpretation (test code = Abnormal 44049-3) [facility] GLUCOSE (AUTOMATED)2022-05-14 15:51:56 Test Item Value Reference Range Interpretation Comments POCT GLU (test code = 4846918155) 243 mg/dL 70-110 H Lab Interpretation (test code = Abnormal 11988-0) [facility] GLUCOSE (AUTOMATED)2022-05-14 15:51:56 Test Item Value Reference Range Interpretation Comments POCT GLU (test code = 7181703505) 243 mg/dL 70-110 H Lab Interpretation (test code = Abnormal 61676-2) [facility]"
--- NOTE | 2023-05-29 08:21 | RAD REPORT ---
EXAM DESCRIPTION: RAD - Chest Single View - 05/29/2023 8:12 am CLINICAL HISTORY: DYSPNEA Chest pain. COMPARISON: Chest Single View dated 03/22/2023; Chest Single View dated 05/13/2022; Chest Single View dated 04/24/2022; Chest Single View dated 04/23/2022 FINDINGS: Portable technique limits examination quality. Moderate bilateral pulmonary opacities are present, greater on the right in the lower lung. This may represent pulmonary edema or infection/pneumonia. The heart is mildly enlarged in size. No displaced fractures.Aortic atherosclerosis.
[2023-05-29] MEDS ORDERED: METHYLPREDNISOLONE 125 MG INJ ONE (08:22)
[2023-05-29 08:31] LABS: Absolute Lymphocytes (CBC) 0.5 K/uL (0.7-4.9); Hematocrit 21.7 % (39.6-49.0); Lymphocytes % 6.7 % (15.3-44.8); MPV 7.8 fL (7.6-11.3); Platelets 328 thou/uL (152-406); RBC Red Blood Cell Count 3.02 M/uL (4.33-5.43)
[2023-05-29 08:36] LABS: Potassium 4.4 mEq/L (3.5-5.1); Troponin High Sensitivity 12.5 pg/mL (<58.9)
[2023-05-29 08:39] LABS: SARS-CoV-2 Antigen Rapid Res Negative (Negative)
[2023-05-29 08:53] LABS: Blood Morphology Comment NOTED (NOT SEEN); Platelet Estimate ADEQ
[2023-05-29 08:54] LABS: Hypochromasia 1+; Polychromasia 1+
[2023-05-29] MEDS ORDERED: CEFTRIAXONE 1000 MG/VIAL ONE (09:31)
[2023-05-29] MEDS ORDERED: AZITHROMYCIN 500 MG INJ IVPB ONE (09:31)
[2023-05-29] MEDS ORDERED: NA CHLORIDE 0.9% 250 ML ONE ×2 (09:31→13:24)
--- NOTE | 2023-05-29 09:32 | ER ---
Nurse's Notes [facility] Name: Thom Wright Age: 62 yrs Sex: Male : 1960 Arrival Date: 05/29/2023 Time: 07:41 Bed 4 Private MD: Diagnosis: Anemia, unspecified;Shortness of breath;Heart failure, unspecified;Pneumonia, unspecified organism Presentation: 05/29 07:52 Chief complaint: EMS states: difficulty breathing since last night, exposed to COVID at iw home. 07:52 Coronavirus screen: Client presents with at least one sign or symptom that may indicate iw coronavirus-19. Ebola Screen: Patient negative for fever greater than or equal to 101.5 degrees Fahrenheit, and additional compatible Ebola Virus Disease symptoms Patient denies exposure to infectious person. Patient denies travel to an Ebola-affected area in the 21 days before illness onset. No symptoms or risks identified at this time. Initial Sepsis Screen: Does the patient meet any 2 criteria? No. Patient's initial sepsis screen is negative. Does the patient have a suspected source of infection? No. Patient's initial sepsis screen is negative. Risk Assessment: Do you want to hurt yourself or someone else? Patient reports no desire to harm self or others. Onset of symptoms was May 29, 2023. 07:52 Method Of Arrival: EMS: [facility] iw 07:52 Acuity: SONIA 3 iw Historical: - Allergies: 07:52 NKDA; iw - PMHx: 07:52 COPD; stroke ( deficit left side paralysis); CVA; diabetes mellitus; Hypertensive iw disorder; NC; Pancreatitis; peripheral vascular disease; - PSHx: 07:52 Carotid endarterectomy; Femoral bypass; iw - Immunization history:: Adult Immunizations unknown. - Social history:: Smoking status: Patient reports the use of cigarette tobacco products. Screenin:[address] [facility] ED Fall Risk Assessment (Adult) Score/Fall Risk Level 3 or more points = High iw Risk. Abuse screen: Denies threats or abuse. Denies injuries from another. Nutritional screening: No deficits noted. Tuberculosis screening: No symptoms or risk factors identified. Assessment: 08:06 General: Appears in no apparent distress. Behavior is calm, cooperative. Neuro: Level iw of Consciousness is awake, alert, obeys commands, Oriented to person, place, time, situation. Respiratory: Reports shortness of breath labored breathing. Derm: Skin is intact. 09:00 Reassessment: pt desat to 82% while sleeping, placed on 3 L NC. iw 10:50 Reassessment: Patient appears in no apparent distress at this time. Patient and/or iw family updated on plan of care and expected duration. Pain level reassessed. Patient is alert, oriented x 3, equal unlabored respirations, skin warm/dry/pink. 11:45 Reassessment: room not clean yet. iw Vital Signs: 07:51 BP 131 / 65; Pulse 72; Resp 20; Pulse Ox 97% on R/A; iw 09:29 BP 133 / 58; Pulse 81; Resp 22; Temp 98.5(O); Pulse Ox 100% on 3 lpm NC; iw ED Course: 07:45 Patient arrived in ED. ms3 07:45 Sandro Gonzalez DO is Attending Physician. ms3 07:51 Kamini Dhaliwal, SALLIE is Primary Nurse. iw 07:52 Triage completed. iw 08:05 Initial lab(s) drawn, by me, sent to lab. Inserted saline lock: 22 gauge in right iw antecubital area, using aseptic technique. Blood collected. 08:06 Patient has correct armband on for positive identification. iw 08:14 XRAY Chest (1 view) In Process Unspecified. EDMS 09:10 First set of blood cultures drawn by me, Second set of blood cultures drawn by me. ds4 09:14 Oxygen administration via nasal cannula \T\ 2L/min Response to oxygen therapy: symptoms ds4 improved. 09:31 Byron Mace MD is Hospitalizing Provider. ms3 12:18 No provider procedures requiring assistance completed. Patient admitted, IV remains in iw place. 12:18 Arm band placed on. iw Administered Medications: 08:18 Drug: MethylPrednisoLONE IVP 125 mg IVP once Route: IVP; Site: right antecubital; iw 10:00 Follow up: Response: No adverse reaction iw 09:25 Drug: Rocephin IV 1 grams IV at calculated rate once; Given slow IV push per pharmacy iw instructions Route: IV; Rate: calculated rate; Site: right antecubital; 09:28 Follow up: IV Status: Completed infusion iw 09:28 Drug: AZITHromycin IVPB 500 mg IVPB once over 1 hrs; (mix in 250 mL NS) Route: IVPB; iw Infused Over: 1 hrs; Site: right antecubital; 10:30 Follow up: IV Status: Completed infusion iw Medication: 08:06 VIS not applicable for this client. iw Outcome: 09:31 Decision to Hospitalize by Provider. ms3 12:17 Admitted to Med/surg accompanied by tech, via wheelchair, room 224, Report called to iw Pam 12:17 Condition: good 12:17 Instructed on the need for admit, 12:18 Patient left the ED. iw Signatures: Dispatcher [employer] Kamini Siddiqi, RN RN Nick Niño ds4 Sandro Gonzalez DO DO ms3
--- NOTE | 2023-05-29 09:33 | EDPHYS ---
Physician Documentation [facility] Name: Thom Wright Age: 62 yrs Sex: Male : 1960 Arrival Date: 05/29/2023 Time: 07:41 Bed 4 Private MD: ED Physician Sandro Gonzalez HPI: 05/29 08:11 This 62 yrs old Male presents to ER via EMS with complaints of Breathing Difficulty. ms3 08:11 62-year-old male with past medical history of COPD, stroke, CVA, diabetes, hypertension ms3 presents to the emergency department via [facility] for shortness of breath that began last night. Patient states the shortness of breath is worse when laying down. EMS states they administered albuterol Atrovent due to the patient's wheezing. On their arrival patient's oxygen saturation was 88%. After albuterol and Atrovent patient's room air oxygen saturations 92 to 94%. Patient denies pain. Patient denies nausea or vomiting. Patient reports improvement in his symptoms.. Historical: - Allergies: 07:52 NKDA; iw - PMHx: 07:52 COPD; stroke ( deficit left side paralysis); CVA; diabetes mellitus; Hypertensive iw disorder; AL; Pancreatitis; peripheral vascular disease; - PSHx: 07:52 Carotid endarterectomy; Femoral bypass; iw - Immunization history:: Adult Immunizations unknown. - Social history:: Smoking status: Patient reports the use of cigarette tobacco products. ROS: 08:11 Constitutional: Negative for fever, and chills. Neck: Negative for injury, pain, and ms3 swelling, Cardiovascular: Negative for chest pain, and palpitations. Respiratory: Negative for shortness of breath, cough, wheezing, and pleuritic chest pain, Abdomen/GI: Negative for abdominal pain, nausea, vomiting, diarrhea, and constipation, MS/Extremity: Negative for injury and deformity, 08:11 All other systems are negative, Exam: 08:11 Constitutional: This is a well developed, well nourished patient who is awake, alert, ms3 and in no acute distress. Head/Face: Normocephalic, atraumatic. Neck: Trachea midline, no cervical lymphadenopathy. Supple, full range of motion without nuchal rigidity, or vertebral point tenderness. No Meningismus. Chest/axilla: Normal chest wall appearance and motion. Nontender with no deformity. Cardiovascular: Regular rate and rhythm with a normal S1 and S2. No gallops, murmurs, or rubs. Normal PMI, no JVD. No pulse deficits. Respiratory: Lungs have equal breath sounds bilaterally, clear to auscultation and percussion. No rales, rhonchi or wheezes noted. No increased work of breathing, no retractions or nasal flaring. Abdomen/GI: Soft, non-tender, with normal bowel sounds. No distension or tympany. No guarding or rebound. No evidence of tenderness throughout. Skin: Warm, dry with normal turgor. Normal color with no rashes, no lesions, and no evidence of cellulitis. MS/ Extremity: Pulses equal, no cyanosis. Neurovascular intact. Full, normal range of motion. Psych: Awake, alert, with orientation to person, place and time. Behavior, mood, and affect are within normal limits. 09:45 ECG was reviewed by the Attending Physician. ms3 Vital Signs: 07:51 BP 131 / 65; Pulse 72; Resp 20; Pulse Ox 97% on R/A; iw 09:29 BP 133 / 58; Pulse 81; Resp 22; Temp 98.5(O); Pulse Ox 100% on 3 lpm NC; iw MDM: 07:45 Patient medically screened. ms3 08:11 Differential diagnosis: CHF exacerbation, Myocardial Infarction pulmonary edema, ms3 reactive airway disease. 09:32 Antibiotic administration: Rocephin and Zithromax given. Data reviewed: vital signs, ms3 nurses notes, lab test result(s), EKG, radiologic studies, and as a result, I will admit patient. Consideration of Admission/Observation Patient was admitted/placed on observation. Management of patient was discussed with the following: Hospitalist: Dr Mace. I considered the following discharge prescriptions or medication management in the emergency department Medications were administered in the Emergency Department. See MAR. Independent interpretation of the following test(s) in the Emergency Department EKG: See my EKG interpretation above. Historians other than the Patient: EMS: [facility]. Care significantly affected by the following chronic conditions: Chronic Obstructive Pulmonary Disease. ED course: Discussed case with Dr. Mace and he accepts patient. Discussed plan for admission with patient and he understands and agrees with plan. All questions were answered. 05/29 07:45 Order name: Basic Metabolic Panel; Complete Time: 08:37 ms3 05/29 07:45 Order name: CBC with Diff; Complete Time: 09:19 ms3 05/29 07:45 Order name: Magnesium; Complete Time: 08:37 ms3 05/29 07:45 Order name: NT PRO-BNP; Complete Time: 08:37 ms3 05/29 07:45 Order name: Troponin HS; Complete Time: 08:37 ms3 05/29 07:54 Order name: SARS RAPID; Complete Time: 09:19 ms3 05/29 08:39 Order name: Manual Differential; Complete Time: 09:19 EDMS 05/29 08:39 Order name: Blood Culture Adult (2) ms3 05/29 09:25 Order name: Bb Add On ms3 05/29 09:25 Order name: Type And Screen ms3 05/29 10:25 Order name: Basic Metabolic Panel EDMS 05/29 10:25 Order name: Basic Metabolic Panel EDMS 05/29 10:25 Order name: Basic Metabolic Panel EDMS 05/29 10:25 Order name: Basic Metabolic Panel EDMS 05/29 10:25 Order name: Basic Metabolic Panel EDMS 05/29 10:25 Order name: T4 Free EDMS 05/29 10:25 Order name: Thyroid Stimulating Hormone EDMS 05/29 10:25 Order name: Urinalysis w/ reflexes EDMS 05/29 10:26 Order name: Basic Metabolic Panel EDMS 05/29 10:26 Order name: CBC with Automated Diff EDMS 05/29 10:26 Order name: CBC with Automated Diff EDMS 05/29 10:26 Order name: CBC with Automated Diff EDMS 05/29 10:26 Order name: CBC with Automated Diff EDMS 05/29 10:26 Order name: CBC with Automated Diff EDMS 05/29 10:26 Order name: CBC with Automated Diff EDMS 05/29 10:26 Order name: Creatine Phosphokinase EDMS 05/29 10:26 Order name: Creatine Phosphokinase EDMS 05/29 10:26 Order name: Creatine Phosphokinase EDMS 05/29 10:26 Order name: Magnesium EDMS 05/29 10:26 Order name: Magnesium EDMS 05/29 10:26 Order name: Magnesium EDMS 05/29 10:26 Order name: Magnesium EDMS 05/29 10:26 Order name: Magnesium EDMS 05/29 10:26 Order name: Magnesium EDMS 05/29 10:26 Order name: Phosphorus EDMS 05/29 10:26 Order name: Phosphorus EDMS 05/29 10:26 Order name: Phosphorus EDMS 05/29 10:26 Order name: Phosphorus EDMS 05/29 10:26 Order name: Phosphorus EDMS 05/29 10:26 Order name: Phosphorus EDMS 05/29 07:45 Order name: XRAY Chest (1 view); Complete Time: 08:37 ms3 05/29 07:45 Order name: EKG; Complete Time: 07:46 ms3 05/29 07:45 Order name: Cardiac monitoring; Complete Time: 08:06 ms3 05/29 07:45 Order name: EKG - Nurse/Tech; Complete Time: 08:06 ms3 05/29 07:45 Order name: IV Saline Lock; Complete Time: 08:06 ms3 05/29 07:45 Order name: Labs collected and sent; Complete Time: 08:06 ms3 05/29 07:45 Order name: O2 Per Protocol; Complete Time: 08:06 ms3 05/29 07:45 Order name: O2 Sat Monitoring; Complete Time: 08:06 ms3 EC:45 Rate is 83 beats/min. Rhythm is regular. QRS [place] is Normal. HI interval is normal. QRS ms3 interval is normal. Clinical impression: NSR w/ Non-specific ST/T Changes. Interpreted by me. Reviewed by me. Administered Medications: 08:18 Drug: MethylPrednisoLONE IVP 125 mg IVP once Route: IVP; Site: right antecubital; iw 10:00 Follow up: Response: No adverse reaction iw 09:25 Drug: Rocephin IV 1 grams IV at calculated rate once; Given slow IV push per pharmacy iw instructions Route: IV; Rate: calculated rate; Site: right antecubital; 09:28 Follow up: IV Status: Completed infusion iw 09:28 Drug: AZITHromycin IVPB 500 mg IVPB once over 1 hrs; (mix in 250 mL NS) Route: IVPB; iw Infused Over: 1 hrs; Site: right antecubital; 10:30 Follow up: IV Status: Completed infusion iw Disposition: 09:32 Critical Care:. ms3 Disposition Summary: 05/29/23 09:31 Hospitalization Ordered Notes: Hospitalization Status: Inpatient Admission ms3 Provider: Byron Mace ms3 Location: Telemetry/[facility] (Inpatient) ms3 Condition: Stable ms3 Problem: new ms3 Symptoms: are unchanged ms3 Bed/Room Type: Standard ms3 Room Assignment: 224(05/29/23 10:33) bd Diagnosis - Anemia, unspecified ms3 - Shortness of breath ms3 - Heart failure, unspecified ms3 - Pneumonia, unspecified organism ms3 Forms: - Medication Reconciliation Form ms3 - SBAR form ms3 - Leadership Thank You Letter ms3 Critical care time excluding procedures: 09:32 Critical care time: Bedside Care: 35 minutes, Consultation: 5 minutes. Total time: 40 ms3 minutes Signatures: Dispatcher [employer] EDRadha Sen Irene, RN RN iw Sandro Gonzalez DO DO ms3 Corrections: (The following items were deleted from the chart) 10:33 09:31 ms3 bd
[2023-05-29] MEDS: INSULIN REGULAR (HUMAN) 100 UNIT/ML SQ SCH ×3 (12:30→20:18)
--- NOTE | 2023-05-29 12:36 | P.HP ---
Certification for Inpatient Patient admitted to: Inpatient With expected LOS: <2 Midnights Patient will require the following post-hospital care: None Practitioner: I am a practitioner with admitting privileges, knowledge of patient current condition, hospital course, and medical plan of care. Services: Services provided to patient in accordance with Admission requirements found in Title 42 Section 412.3 of the Code of Federal Regulations <Ling Reynaga - Last Filed: 05/30/23 15:11> Patient History Date of Service: 05/29/23 History of Present Illness: 62-year-old male with a past medical history of COPD, CVA left-sided paralysis, diabetes, hypertension, pancreatitis, PVD, presents to the emergency room with shortness of breath. He reports shortness of breath is worse when laying flat. He reports associated wheezing, nonproductive cough. EMS evaluation O2 saturation 88%, albuterol Atrovent, O2 sats increased to 94%. Patient denies chest pain, palpitations, pleuritic chest pain, abdominal pain, nausea vomiting diarrhea, edema. Plan to admit for acute hypoxic respiratory failure secondary to acute on chronic heart failure., Pneumonia, anemia.Laboratory evaluation mild hyponatremia 132 microcytic anemia 6.721 0.7, no leukocytosis, early left shift 78.2 blood glucose 227 acute on chronic kidney injury BUN 33 creatinine 1.45, unknown baseline elevated BNP 691, troponin normal at 12.5, SARS negative, chest x-ray moderate bilateral pulmonary opacities are present greater on the right lower lung, may represent pulmonary edema or pneumonia/infection. Mild cardiomegaly aortic atherosclerosis. Thom will be admitted to hospitalist service for further evaulation and treatment. - Past Medical/Surgical History Diabetic: Yes -: Diabetes mellitus type 2not insulin-dependent -: Hypertension -: Unknown additional history -: carotid surgery -: CVA x3 Psychosocial/ Personal History: Patient lives at home with his , family - Social History Alcohol use: No CD- Drugs: No Caffeine use: Yes <Blessing Mcgraw - Last Filed: 05/29/23 19:13> Date of Service: 05/30/23 Reason for admission: Pneumonia <Ling Reynaga - Last Filed: 05/30/23 15:11> Allergies No Known Allergies Allergy (Verified 03/02/22 21:58) Home Medications: Atorvastatin Calcium 40 mg PO DAILY 01/22/22 Clopidogrel Bisulfate [Plavix*] 75 mg PO BEDTIME #30 tab 03/15/22 Pantoprazole [Protonix Tab*] 40 mg PO BIDAC #60 tab 03/15/22 Aspirin [Aspirin EC 81 MG] 81 mg PO DAILY 04/18/22 Insulin Aspart [Insulin Aspart Flexpen] 5 unit SQ TIDWM 04/18/22 Insulin Detemir [Levemir] 20 unit SQ BID 04/18/22 Albuterol Neb [Proventil 0.083% Neb Soln] 2.5 mg NEB [id number] PRN #60 amp 04/24/22 Furosemide [Lasix*] 40 mg PO BIDL #60 tab 04/24/22 Hydrocodone 5/APAP 325 [[place] 5/325*] 1 tab PO Q6H PRN #30 tab 04/24/22 Ipratropium Neb [Atrovent*] 0.5 mg NEB [id number] PRN #60 amp 04/24/22 Losartan Potassium [Cozaar*] 50 mg PO BID #60 tablet 04/24/22 Magnesium Chloride [Slow-Mag*] 64 mg PO DAILY #30 tab 04/24/22 Metoprolol Tartrate [Lopressor*] 50 mg PO BID 6AM 6PM #60 tab 04/24/22 Potassium Chloride [Klor-Con M20] 20 meq PO DAILY #30 tab 04/24/22 levoFLOXacin [Levaquin*] 500 mg PO DAILY #5 tab 04/24/22 predniSONE [Prednisone*] 20 mg PO DAILY #20 tab 04/24/22 Review of Systems General: Weakness, Malaise Eyes: Unremarkable ENT: Unremarkable Respiratory: SOB with Excertion Cardiovascular: Unremarkable Gastrointestinal: Unremarkable Genitourinary: Unremarkable Musculoskeletal: Unremarkable Integumentary: Unremarkable Neurological: Unremarkable Lymphatics: Unremarkable <Blessing Mcgraw - Last Filed: 05/29/23 19:13> ROS per HP <Ling Reynaga - Last Filed: 05/30/23 15:11> Physical Examination - Vital Signs Temperature: 98.5 F Blood Pressure: 133/58 Pulse: 81 Respirations: 22 - Studies Laboratory Data (last 24 hrs) 05/29/23 05/29/23 08:03 08:03 WBC 7.20 Hgb 6.7 L Hct 21.7 L Plt Count 328 Sodium 132 L Potassium 4.4 BUN 33 H Creatinine 1.45 H Glucose 186 H Magnesium 2.0 <Blessing Mcgraw - Last Filed: 05/29/23 19:13> - Physical Exam General: Alert, In no apparent distress, Oriented x3, Mild distress HEENT: Atraumatic, Normocephalic Neck: Supple, 2+ carotid pulse no bruit Respiratory: Normal air movement, Diminished, Inspiratory wheezes Cardiovascular: No edema, Normal pulses Capillary refill: <2 Seconds Gastrointestinal: Normal bowel sounds, Soft and benign Musculoskeletal: No clubbing, No swelling Neurological: Normal gait, Normal speech, Normal strength at 5/5 x4 extr - Studies Laboratory Data (last 24 hrs) 05/29/23 05/29/23 08:03 08:03 WBC 7.20 Hgb 6.7 L Hct 21.7 L Plt Count 328 Sodium 132 L Potassium 4.4 BUN 33 H Creatinine 1.45 H Glucose 186 H Magnesium 2.0 <Ling Reynaga - Last Filed: 05/30/23 15:11> Assessment and Plan - Plan Assessment and plan Acute hypoxic respiratory failure 2/2 multifocal pneumonia Acute on chronic heart failure unknown baseline Cardiomegaly supplemental oxygen incentive spirometry BNP 691 lasix IV once Azithromycin/rocephin/solumedrol given in ED continue Azithromycin and rocephin blood cultures pending SARS negative chest x-ray moderate bilateral pulmonary opacities are present greater on the right lower lung, may represent pulmonary edema or pneumonia/infection. Mild cardiomegaly aortic atherosclerosis DM 2 NIDDM serum glucose 186 accucheck with SSI Acute on chronic kidney injury unknown baseline BUN 33 creatinine 1.45 monitor in AM labs Microcytic anemia h/h 6.7/21.7 transfuse 1 unit PRBC (05/29) H/H recheck tonight Smoking abuse cessation education provided 2 packs cigarettes and marijuana daily nicotine patch History of CVA left-sided weakness History of peripheral vascular disease Fall precaution Full code DVT ppc SCD for now LOS 3-4 days - Advance Directives Does patient have a Living Will: No Does patient have a Durable POA for Healthcare: No <Blessing Mcgraw - Last Filed: 05/29/23 19:13> Discharge Plan: Home Plan to discharge in: 48 Hours - Code Status/Comfort Care Code Status: Full Code Physician Review: Patient Assessed, Agree with Above Assessment and Plan Critical Care: No Time Spent Managing Pts Care (In Minutes): 35 <Ling Reynaga - Last Filed: 05/30/23 15:11>
[2023-05-29 12:58] VITALS: BMI 4011.0
[2023-05-29 18:05] LABS: Hematocrit 22.9 % (39.6-49.0)
[2023-05-29 18:30] LABS: Thyroid Stimulating Hormone 2.87 uIU/mL (0.358-3.740)
[2023-05-30 02:04] LABS: Magnesium 2.3 mg/dL (1.6-2.4); Phosphorus 3.3 mg/dL (2.5-4.9); Potassium 4.3 mEq/L (3.5-5.1)
[2023-05-30 02:16] LABS: Hematocrit 21.8 % (39.6-49.0); MCV 72.3 fL (80-100); MPV 7.9 fL (7.6-11.3); Platelets 258 thou/uL (152-406); RBC Red Blood Cell Count 3.02 M/uL (4.33-5.43)
[2023-05-30 04:23] LABS: Blood Morphology Comment NOTED (NOT SEEN); Hypochromasia 2+; Platelet Estimate ADEQ
[2023-05-30] MEDS: ALBUTEROL 2.5 MG/3 ML NEB SOL NEB SCH ×3 (06:30→19:22)
[2023-05-30] MEDS: INSULIN REGULAR (HUMAN) 100 UNIT/ML SQ SCH ×4 (07:30→21:00)
[2023-05-30] MEDS ORDERED: HYDRALAZINE HCL 20 MG/ML VIAL IV PRN (08:45)
[2023-05-30] MEDS: CEFTRIAXONE 1,000 MG in NA CHLORIDE 0.9% 50 ML IVPB SCH (08:59)
[2023-05-30] MEDS: AZITHROMYCIN IV 500 MG in NA CHLORIDE 0.9% 250 ML IVPB SCH (09:00)
[2023-05-30] MEDS ORDERED: NITROGLYCERIN 0.4 MG/TAB SL PRN (13:58)
--- NOTE | 2023-05-30 14:37 | P.PN ---
Date of Service: 05/30/23 Subjective Awake wearing Bipap, weaned to RA Feeling better this morning Declined the nicotine patch ROS: 10 point ROS as noted above, otherwise negative Physical Exam General: Alert, In no apparent distress, Oriented x3 HEENT: Atraumatic, Normocephalic Neck: Supple, 2+ carotid pulse no bruit Respiratory: Normal air movement, Diminished, Inspiratory wheezes Cardiovascular: No edema, Normal pulses Capillary refill: <2 Seconds Gastrointestinal: Normal bowel sounds, Soft and benign Musculoskeletal: No clubbing, No swelling Extremities: Right great toe with skin break down Neurological: Normal gait, Normal speech, Normal strength at 5/5 x4 extr Vitals reviewed Problem list Acute hypoxic respiratory failure 2/2 multifocal pneumonia Acute on chronic heart failure unknown baseline Cardiomegaly DM 2 NIDDM Acute on chronic kidney injury unknown baseline Microcytic anemia Smoking abuse History of CVA left-sided weakness History of peripheral vascular disease Assessment and Plan Acute hypoxic respiratory failure 2/2 multifocal pneumonia Acute on chronic heart failure unknown baseline Cardiomegaly supplemental oxygen incentive spirometry BNP 691 lasix IV once Azithromycin/rocephin/solumedrol given in ED continue Azithromycin and rocephin blood cultures pending SARS negative chest x-ray moderate bilateral pulmonary opacities are present greater on the right lower lung, may represent pulmonary edema or pneumonia/infection. Mild cardiomegaly aortic atherosclerosis DM 2 NIDDM serum glucose 186 accucheck with SSI Acute on chronic kidney injury unknown baseline BUN 30 creatinine 1.34 monitor in AM labs Microcytic anemia h/h 7.1/21.8 transfuse 1 unit PRBC (05/29) H/H recheck tonight Right great toe skin breakdown Wound care consulted Smoking abuse cessation education provided 2 packs cigarettes and marijuana daily nicotine patch- patient declined History of CVA left-sided weakness History of peripheral vascular disease Fall precaution Full code DVT ppc SCD for now LOS 3-4 days
[2023-05-30 15:45] LABS: Specific Gravity 1.014 (1.005-1.030); Urine Bacteria <20 /HPF (<20); Urine Bilirubin NEGATIVE (Negative); Urine Blood Negative (Negative); Urine Clarity Clear (Clear); Urine Color Colorless (Yellow); Urine Glucose TRACE (Negative); Urine Protein 1+ (Negative); Urine RBC <5 /HPF (None Seen); Urine Urobilinogen Normal (Normal)
[2023-05-31] MEDS: ALBUTEROL 2.5 MG/3 ML NEB SOL NEB SCH ×4 (01:13→19:00)
[2023-05-31] MEDS: INSULIN REGULAR (HUMAN) 100 UNIT/ML SQ SCH ×4 (07:30→21:00)
[2023-05-31 08:10] LABS: Absolute Lymphocytes (CBC) 0.5 K/uL (0.7-4.9); Hematocrit 21.6 % (39.6-49.0); Lymphocytes % 21.6 % (15.3-44.8); MCV 72.6 fL (80-100); MPV 7.6 fL (7.6-11.3); Platelets 237 thou/uL (152-406); RBC Red Blood Cell Count 2.98 M/uL (4.33-5.43)
[2023-05-31 08:11] LABS: Magnesium 2.2 mg/dL (1.6-2.4); Potassium 4.1 mEq/L (3.5-5.1)
[2023-05-31] MEDS: CEFTRIAXONE 1,000 MG in NA CHLORIDE 0.9% 50 ML IVPB SCH (09:25)
[2023-05-31] MEDS: AZITHROMYCIN IV 500 MG in NA CHLORIDE 0.9% 250 ML IVPB SCH (09:26)
[2023-05-31] MEDS: METOPROLOL TAR 50 MG TAB PO SCH ×2 (09:34→18:00)
[2023-05-31] MEDS ORDERED: NA CHLORIDE 0.9% 250 ML IV SCH (12:00)
[2023-05-31] MEDS ORDERED: NA CHLORIDE 0.9% 250 ML ONE (16:07)
--- NOTE | 2023-05-31 16:50 | P.DS ---
Admission Date: 05/31/23 Discharge Date: 06/01/23 Disposition: DC HOME/HOME HEALTH CARE Discharge Condition: FAIR Reason for Admission: Pneumonia Brief History of Present Illness: 62-year-old male with a past medical history of COPD, CVA left-sided paralysis, diabetes, hypertension, pancreatitis, PVD, presented to the emergency room with shortness of breath. He reported shortness of breath worse when laying flat. He reported associated wheezing, nonproductive cough. EMS evaluation O2 saturation 88%, albuterol Atrovent, O2 sats increased to 94%. Patient denied chest pain, palpitations, pleuritic chest pain, abdominal pain, nausea vomiting, diarrhea, or edema. Laboratory evaluation showed mild hyponatremia 132 microcytic anemia 6.721 0.7, no leukocytosis, early left shift 78.2 blood glucose 227. BUN 33 creatinine 1.45, unknown baseline, elevated BNP 691, troponin normal at 12.5, SARS negative, chest x-ray showed moderate bilateral pulmonary opacities present, greater on the right lower lung, may represent pulmonary edema or pneumonia/infection. Patient admitted for further management. Hospital Course: Diagnosis Acute hypoxic respiratory failure 2/2 multifocal pneumonia Acute on chronic heart failure unknown baseline Cardiomegaly DM 2 NIDDM Acute on chronic kidney injury unknown baseline Microcytic anemia Smoking abuse History of CVA left-sided weakness History of peripheral vascular disease Assessment and Plan Acute hypoxic respiratory failure 2/2 multifocal pneumonia Acute on chronic heart failure unknown baseline Cardiomegaly Patient treated with bronchodilators incentive spirometry BNP 691 Given IV Lasix Also treated with Zithromax and IV Rocephin and then transition to oral Levaquin. He was given a dose of IV Solu-Medrol. Blood cultures yielded no growth. SARS negative. Patient respiratory condition significantly improved. Oxygen requirement has improved to baseline. Patient request to go home. DM 2 NIDDM Blood sugar managed with insulin sliding scale ANA ANA resolved. Microcytic anemia h/h 7.1/21.8 transfused 2 units PRBC. Patient reports prior history of GI bleed. He denied recent melena or hematochezia or hematemesis. Posttransfusion hemoglobin up to 8.6. He is informed to follow-up with GI as outpatient. Right great toe skin breakdown/PAD Patient reports prior history of peripheral artery disease and vascular surgery involving the right lower extremity. Wound care recommend follow-up with [facility]. Patient stated he has an appointment with the [facility] in [place]. Smoking abuse cessation education provided 2 packs cigarettes and marijuana daily nicotine patch- patient declined History of CVA left-sided weakness History of peripheral vascular disease Fall precautions advised. Vital Signs/Physical Exam: Temp Pulse Resp BP Pulse Ox 98.4 F 77 18 137/61 98 05/31/23 12:00 05/31/23 12:00 05/31/23 12:00 05/31/23 12:00 05/31/23 12:00 General: Alert, In no apparent distress, Oriented x3 HEENT: Other (Oxygen by nasal cannula) Neck: Supple, JVD not distended Respiratory: Clear to auscultation bilaterally, Normal air movement Cardiovascular: No edema, Regular rate/rhythm, Normal S1 S2 Gastrointestinal: Soft and benign, Non-distended, No tenderness Musculoskeletal: No swelling Integumentary: Other (eschar-plantar surface of right great toe.) Laboratory Data at Discharge: WBC 2.50 thou/uL (4.3-10.9) L 05/31/23 07:29 Hgb 7.0 g/dL (13.6-17.9) L 05/31/23 07:29 Hct 21.6 % (39.6-49.0) L 05/31/23 07:29 Plt Count 237 thou/uL (152-406) 05/31/23 07:29 Sodium 132 mEq/L (136-145) L 05/31/23 07:29 Potassium 4.1 mEq/L (3.5-5.1) 05/31/23 07:29 BUN 25 mg/dL (7-18) H 05/31/23 07:29 Creatinine 1.10 mg/dL (0.70-1.30) 05/31/23 07:29 Glucose 124 mg/dL (74-106) H 05/31/23 07:29 Phosphorus 3.0 mg/dL (2.5-4.9) 05/31/23 07:29 Magnesium 2.2 mg/dL (1.6-2.4) 05/31/23 07:29 Home Medications: Atorvastatin Calcium 40 mg PO DAILY 01/22/22 Clopidogrel Bisulfate [Plavix*] 75 mg PO BEDTIME #30 tab 03/15/22 Pantoprazole [Protonix Tab*] 40 mg PO BIDAC #60 tab 03/15/22 Aspirin [Aspirin EC 81 MG] 81 mg PO DAILY 04/18/22 Insulin Aspart [Insulin Aspart Flexpen] 5 unit SQ TIDWM 04/18/22 Insulin Detemir [Levemir] 20 unit SQ BID 04/18/22 Albuterol Neb [Proventil 0.083% Neb Soln] 2.5 mg NEB [id number] PRN #60 amp 04/24/22 Hydrocodone 5/APAP 325 [[place] 5/325*] 1 tab PO Q6H PRN #30 tab 04/24/22 Ipratropium Neb [Atrovent*] 0.5 mg NEB [id number] PRN #60 amp 04/24/22 Losartan Potassium [Cozaar*] 50 mg PO BID #60 tablet 04/24/22 Magnesium Chloride [Slow-Mag*] 64 mg PO DAILY #30 tab 04/24/22 Metoprolol Tartrate [Lopressor*] 50 mg PO BID 6AM 6PM #60 tab 04/24/22 Potassium Chloride [Klor-Con M20] 20 meq PO DAILY #30 tab 04/24/22 Furosemide [Lasix*] 40 mg PO DAILY #30 tab 05/31/23 levoFLOXacin [Levaquin*] 500 mg PO DAILY #6 tab 05/31/23 predniSONE [Deltasone*] 10 mg PO DAILY #30 tab 05/31/23 New Medications: predniSONE [Deltasone*] 10 mg PO DAILY #30 tab Furosemide [Lasix*] 40 mg PO DAILY #30 tab levoFLOXacin [Levaquin*] 500 mg PO DAILY #6 tab Physician Discharge Instructions: 1. Please call and schedule a follow-up appointment with your PCP in 3-5 days - Please follow-up with your PCP for medication refills/adjustments 2. Continue diabetic diet Diet: ADA Activity: Fall precautions Followup: NONE,NONE [Primary Care Provider] - 1 Week (make follow up appointment 3-5 days) Time spent managing pt's care (in minutes): 35
[2023-05-31] MEDS ORDERED: METOPROLOL TAR 50 MG TAB PO SCH (18:00)
--- NOTE | 2023-05-31 19:16 | P.PN ---
Subjective Date of Service: 05/31/23 Chief Complaint: Pneumonia Patient denies any complaint. He states that his shortness of breath has resolved. He requested to go home. Physical Examination - Vital Signs Temperature: 98.2 F Blood Pressure: 122/59 Pulse: 80 Respirations: 17 Pulse Ox (%): 97 - Studies Laboratory Data (last 24 hrs) 05/31/23 05/31/23 07:29 07:29 WBC 2.50 L Hgb 7.0 L Hct 21.6 L Plt Count 237 Sodium 132 L Potassium 4.1 BUN 25 H Creatinine 1.10 Glucose 124 H Phosphorus 3.0 Magnesium 2.2 Assessment And Plan - Plan Physical Exam General: Alert, In no apparent distress, Oriented x3 Neck: Supple, no elevated JVD. Respiratory: Normal air movement, clear to auscultation. Cardiovascular: No edema, Normal pulses, regular rhythm, normal rate. Gastrointestinal: Normal bowel sounds, Soft and benign, nontender. Musculoskeletal: No swelling Extremities: Right great toe with eschar on the plantar surface. Neurological: Normal gait, Normal speech, Normal strength at 5/5 x4 extr Vitals reviewed Diagnosis Acute hypoxic respiratory failure 2/2 multifocal pneumonia Acute on chronic heart failure unknown baseline Cardiomegaly DM 2 NIDDM Acute on chronic kidney injury unknown baseline Microcytic anemia Smoking abuse History of CVA left-sided weakness History of peripheral vascular disease Plan: Acute hypoxic respiratory failure 2/2 multifocal pneumonia Acute on chronic heart failure unknown baseline Cardiomegaly blood cultures; no growth to date. SARS negative Oxygen weaned down to baseline incentive spirometry lasix IV once IV Rocephin and Zithromax transition to oral Levaquin. Oral prednisone. DM 2 NIDDM serum glucose 186 Blood glucose management with insulin sliding scale. Acute on chronic kidney injury unknown baseline ANA resolved. Microcytic anemia h/h 7.1/21.8 transfuse 1 unit PRBC (05/29) Hemoglobin still 7.0. Transfuse 1 more unit PRBC today. Right great toe skin breakdown Wound care evaluated and recommended podiatry input. Patient stated he has an appointment with a stove polisher in [place]. Smoking abuse cessation education provided 2 packs cigarettes and marijuana daily nicotine patch recommended but patient declined History of CVA left-sided weakness History of peripheral vascular disease Fall precaution Full code DVT prophylaxis: SCD.
[2023-05-31] MEDS: predniSONE 20 MG TAB PO SCH (20:16)
[2023-05-31 20:42] LABS: Hematocrit 22.3 % (39.6-49.0)
[2023-06-01] MEDS: ALBUTEROL 2.5 MG/3 ML NEB SOL NEB SCH ×3 (01:46→13:54)
[2023-06-01 03:25] LABS: Magnesium 2.3 mg/dL (1.6-2.4); Phosphorus 3.1 mg/dL (2.5-4.9); Potassium 4.3 mEq/L (3.5-5.1)
[2023-06-01 03:31] LABS: Absolute Lymphocytes (CBC) 0.5 K/uL (0.7-4.9); Hematocrit 21.4 % (39.6-49.0); Lymphocytes % 15.2 % (15.3-44.8); MCV 73.3 fL (80-100); Platelets 213 thou/uL (152-406); RBC Red Blood Cell Count 2.92 M/uL (4.33-5.43)
[2023-06-01] MEDS ORDERED: NA CHLORIDE 0.9% 250 ML IV SCH (07:00)
[2023-06-01] MEDS: METOPROLOL TAR 50 MG TAB PO SCH (07:51)
[2023-06-01] MEDS ORDERED: levoFLOXacin 500 MG TAB PO SCH (09:00)
[2023-06-01] MEDS: INSULIN REGULAR (HUMAN) 100 UNIT/ML SQ SCH ×2 (09:15→12:21)
[2023-06-01] MEDS: predniSONE 20 MG TAB PO SCH (09:16)
[2023-06-01 14:27] VITALS: BP 171/78; TEMP 97.1
[2023-06-01 14:49] VITALS: O2SAT 92
--- NOTE | 2023-06-01 15:29 | EKG ---
Test Date: 2023-05-29 Test Time: 08:01:45 [employer] Pit Boss: OCHOA MEASUREMENT RESULTS: Intervals: Rate: 83 DC: 148 QRSD: 82 QT: 370 QTc: 434 [place]: P: 68 DC: 148 QRS: 40 T: 16 INTERPRETIVE STATEMENTS: Normal sinus rhythm with sinus arrhythmia Nonspecific ST and T wave abnormality Abnormal ECG Compared to ECG 03/22/2023 13:45:27 ST (T wave) deviation now present Myocardial infarct finding no longer present Electronically Signed On 06-01-23 15:16:25 LICENSED MASSAGE PRACTITIONER by Jeffrey Suazo
== END 2023-06-01 15:18 | disposition home health service (06) | DRG 193 ==
LOC: ER 07:41 → ERHOLD 10:32 → 2ND 11:13 → OBSVTOIN 05-31 14:00
PROVIDERS: ADMIT Hospitalist; ATTEND Internal Medicine
PROC: 5A09457 Assistance with Respiratory Ventilation, 24-96 Consecutive Hours, Continuous Positive Airway Pressure (ICD-10-PCS; principal; 2023-05-30)
DX: J18.9 Pneumonia, unspecified organism (principal); J96.01 Acute respiratory failure with hypoxia; I69.354 Hemiplegia and hemiparesis following cerebral infarction affecting left non-dominant side; J44.0 Chronic obstructive pulmonary disease with (acute) lower respiratory infection; E87.1 Hypo-osmolality and hyponatremia; I13.0 Hypertensive heart and chronic kidney disease with heart failure and stage 1 through stage 4 chronic kidney disease, or unspecified chronic kidney disease; N17.9 Acute kidney failure, unspecified; I50.9 Heart failure, unspecified; N18.9 Chronic kidney disease, unspecified; E11.22 Type 2 diabetes mellitus with diabetic chronic kidney disease; E11.51 Type 2 diabetes mellitus with diabetic peripheral angiopathy without gangrene; D63.1 Anemia in chronic kidney disease; D50.9 Iron deficiency anemia, unspecified; F17.210 Nicotine dependence, cigarettes, uncomplicated; Z79.4 Long term (current) use of insulin; Z11.52 Encounter for screening for COVID-19; Z79.02 Long term (current) use of antithrombotics/antiplatelets; Z79.52 Long term (current) use of systemic steroids; Z79.82 Long term (current) use of aspirin; Z79.899 Other long term (current) drug therapy
CPT/HCPCS: 36415; 71045; 80048; 81001; 82550; 82947; 83735; 83880; 84100; 84145; 84439; 84443; 84484; 85014; 85018; 85025; 86850; 86900; 86901; 86920; 87040; 87811; 93005; 94010; 94640; 94660; 94760; 96365; 96375; 99285; G0378; J0360; J0696; J1815; J2930; J7050; J7512; J7613; P9016

== ENCOUNTER 2023-09-28 14:17 | Inpatient (IN) | payer MEDICARE, OTHER ==
--- OUTSIDE RECORDS SUMMARY | 2023-09-28 14:23 | XMS REPORT | Continuity of Care Document ---
Author Name Unknown Address [address] [facility] [address] [place] [address] [facility] Address [address] [facility] [address] [place] [address] Care Team Providers Care Money Laundering Investigator Name Role Phone Pcp, Patient Does Not Have A Primary Care Physic thomas Britni Marvin DO Attending Clinician [phone] Doctor Unassigned, [place] Attending Clinician U jesus Murphy RN, Dora Stover Attending Clinician Unavailab RANDY Vazquez Attending Clinician Unavailmilton Sy MD, Randy Fisher Attending Clinician [phone] Joey Baker DO Attending Clinician [phone] Gregoria Cabrera MD Attending Clinician [phone] Fritz Coats MD Attending Clinician [phone] Chava Hurd MD Attending Clinician [phone] Artie Carrasco MD, Ayo Alvarado Attending Clinician + FRITZ COATS Attending Clinician Unavailable Dm Deng MD Attending Clinician [phone] RANDY SY Admitting Clinician Unavailmilton Sy MD, Randy Fisher Admitting Clinician [phone] Artie Carrasco MD, Ayo Alvarado Admitting Clinician + FRITZ COATS Admitting Clinician Unavailable Payers Payer Name Policy Type Policy Number Effective Date Expirati on Date Source [employer] (MEDICARE REPLACEMENT HMO) [id number] 2022 00:00:00 Problems Condition Name Condition Details Condition Category Status Onset Date Resolution Date Last Treatment Date Treating Clinician Comments Source GIB (gastroint estinal bleeding) GIB (gastroint estinal bleeding) Disease Active 2021-07 00:00: 00 [facility] Lung mass Lung mass Disease Active 2021-07 00:00: 00 [facility] S/P primary angioplast y with coronary stent S/P primary angioplast y with coronary stent Disease [facility] 2021-07 00:00: 00 Overview: Formattin g of this note might be different from the original. CAD w/p PCI of RCA and ?LAD 03/2022, with bare metal stent [facility] FDC (current) use of antithromb otics/anti platelets FDC (current) use of antithromb otics/anti platelets Disease [facility] 2021-07 00:00: 00 [facility] History of upper gastrointe stinal bleeding History of upper gastrointe stinal bleeding Disease [facility] 2021-07 00:00: 00 Overview: Formattin g of this note might be different from the original. Hx of PUD w/ ulceratio n s/p cauteriza tion and 7U of blood (03/2022) [facility] Type 2 diabetes mellitus with hyperglyce vidya, with long-term current use of insulin Type 2 diabetes mellitus with hyperglyce vidya, with long-term current use of insulin Disease Active 2021-07 00:00: 00 Overview: Formattin g of this note is different from the original. 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 and stage 1 through stage 4 chronic kidney disease, or unspecifie d chronic kidney disease Hypertensi ve heart and chronic kidney disease with heart failure and stage 1 through stage 4 chronic kidney disease, or unspecifie d chronic kidney disease Disease Active 2021-07 00:00: 00 [facility] 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 Disease Active 2021-07 00:00: 00 [facility] Primary hyperchole sterolemia Primary hyperchole sterolemia Disease Active 2021-07 00:00: 00 [facility] Arterioscl erosis of coronary artery Arterioscl erosis of coronary artery Disease Active 03-25 00:00: 00 [facility] Allergies, Adverse Reactions, Alerts Allergy Name Allergy Type Status Severity Reaction(s) Onset Date Inactive Date Treating Clinician Comments Source NO KNOWN ALLERGIE S Drug Class Active [facility] Social History Social Habit Start Date Stop Date Quantity Comments Source History of tobacco use Passive smoker [facility] History SDOH Social Connections Get Together [facility] History SDOH Social Connections Restoration [facility] History SDOH Social Connections Membership [facility] History SDOH Social Connections Meetings [facility] History SDOH Social Connections Living [facility] Exposure to SARS-CoV-2 (event) 2022-06-18 00:00:00 2022-06-28 03:00:00 Not sure [facility] History SDOH Food Worry 2022-06-28 00:00:00 2022-06-28 00:00:00 1 [facility] History SDOH Food Scarcity 2022-06-28 00:00:00 2022-06-28 00:00:00 1 [facility] History SDOH Transport Med 2022-06-28 00:00:00 2022-06-28 00:00:00 2 [facility] History SDOH Transport Non-Med 2022-06-28 00:00:00 2022-06-28 00:00:00 2 [facility] Tobacco use and exposure 2022-06-28 00:00:00 2022-06-28 00:00:00 User of smokeless tobacco [facility] History SDOH Alcohol Frequency 2022-06-28 00:00:00 2022-06-28 00:00:00 1 [facility] History SDOH Alcohol Std Drinks 2022-06-28 00:00:00 2022-06-28 00:00:00 0 [facility] History SDOH Alcohol Binge 2022-06-28 00:00:00 2022-06-28 00:00:00 1 [facility] History SDOH Social Connections Phone 2022-06-28 00:00:00 2022-06-28 00:00:00 5 [facility] History SDOH Physical Activity DPW 2022-06-28 00:00:00 2022-06-28 00:00:00 0 [facility] History SDOH Physical Activity MPS 2022-06-28 00:00:00 2022-06-28 00:00:00 0 [facility] History SDOH Financial 2022-06-28 00:00:00 2022-06-28 00:00:00 4 [facility] Alcohol intake 2022-06-28 00:00:00 2022-06-28 00:00:00 Ex-drinker (finding) [facility] Alcohol Comment 2022-05-14 00:00:00 2022-05-14 00:00:00 Previous heavy alcohol use [facility] Sex Ass[birth year] At 1960 00:00:00 1960 00:00:00 [facility] Smoking Status Start Date Stop Date Source Tobacco smoking consumption unknown [facility] Smokes tobacco daily 2022-06-28 00:00:00 [facility] Medications Ordered Medication Name Filled Medication Name Start Date Stop Date Current Medication? Ordering Clinician Indication Dosage Frequency Signature (SIG) Comments Components Source furosemide 40 mg tablet 07-26 00:00: 00 Yes [id number] 40mg Take 1 tablet by mouth in the morning. [facility] metoprolol tartrate 50 mg tablet 2021-07 15:49: 30 Yes 50mg Take 50 mg by mouth in the morning and 50 mg in the evening. [facility] traZODone 50 mg tablet 2021-07 15:49: 30 Yes 50mg Take 50 mg by mouth at bedtime. [facility] metoprolol tartrate 50 mg tablet 2021-07 15:49: 30 Yes 50mg Take 50 mg by mouth in the morning and 50 mg in the evening. [facility] traZODone 50 mg tablet 2021-07 15:49: 30 Yes 50mg Take 50 mg by mouth at bedtime. [facility] metoprolol tartrate 50 mg tablet 2021-07 15:49: 30 Yes 50mg Take 50 mg by mouth in the morning and 50 mg in the evening. [facility] traZODone 50 mg tablet 2021-07 15:49: 30 Yes 50mg Take 50 mg by mouth at bedtime. [facility] metoprolol tartrate 50 mg tablet 2021-07 15:49: 30 Yes 50mg Take 50 mg by mouth in the morning and 50 mg in the evening. [facility] traZODone 50 mg tablet 2021-07 15:49: 30 Yes 50mg Take 50 mg by mouth at bedtime. [facility] traZODone (DESYREL) tablet 50 mg 2021-07 03:00: 00 Yes 50mg 50 mg, Oral, QHS, First dose on Mon06/28/22 at 2100, Until Discontinu ed, Routine [facility] atorvastati n (LIPITOR) tablet 40 mg 2021-07 03:00: 00 Yes 40mg 40 mg, Oral, QHS, First dose on Mon06/28/22 at 2100, Until Discontinu ed, Routine [facility] insulin glargine (LANTUS U-100) injection 15 Units 2021-07 02:00: 00 Yes 15U 15 Units, Subcutaneo us, BID, First dose on Mon06/28/22 at 2000, Until Discontinu ed, Routine [facility] losartan (COZAAR) tablet 50 mg 2021-07 22:00: 00 Yes 50mg 50 mg, Oral, DAILY, First dose on Mon06/28/22 at 1600, Until Discontinu ed, Routine [facility] Sliding Scale Insulin - Lispro (HumaLOG) + Fsbg Testing 2021-07 18:00: 00 Yes Subcutaneo us, TID MEALS+HS, First dose on Mon06/28/22 at 1200, Until Discontinu ed, Routine [facility] dextrose 10% (D10W) bolus infusion 250 mL 2021-07 15:07: 22 Yes 250mL 250 mL, IV Infusion, PRN - SEE INSTRUCTIO NS, Administer over 60 Minutes, Other, If blood glucose is < or = 70 mg/dL and patient is unable to swallow or has mental status changes, Starting on Mon06/28/22 at 0907
If blood glucose is < [...] blood glucose is < 80 mg/dL, repeat.
[facility] glucagon (GLUCAGEN DIAGNOSTIC KIT) injection 1 mg 2021-07 15:07: 18 Yes 1mg 1 mg, Intramuscu lar, PRN, Starting on Mon06/28/22 at 0907, Until Discontinu ed, ANAYA, Blood Glucose < or = 70 mg/dL and patient is unable to swallow or has mental changes. [facility] clopidogreL (PLAVIX) 75 mg tablet 75 mg 2021-07 15:00: 00 Yes 75mg 75 mg, Oral, DAILY, First dose on Mon06/28/22 at 0900, Until Discontinu ed, Routine [facility] aspirin EC tablet 81 mg 2021-07 15:00: 00 06-28 20:43 :30 No 81mg 81 mg, Oral, DAILY, First dose on Mon06/28/22 at 0900, Until Discontinu ed [facility] pantoprazol e (PROTONIX) injection 40 mg 2021-07 14:00: 00 Yes 40mg 40 mg, Slow IV Push, Q12H, First dose on Mon06/28/22 at 0800, Until Discontinu ed [facility] gabapentin (NEURONTIN) capsule 200 mg 2021-07 14:00: 00 Yes 200mg 200 mg, Oral, TID, First dose on Mon06/28/22 at 0800, Until Discontinu ed, Routine [facility] acetaminoph en (TYLENOL) tablet 650 mg 2021-07 10:01: 56 Yes 650mg 650 mg, Oral, Q6HPRN, Starting on Mon06/28/22 at 0401, Until Discontinu ed, Routine, Pain (scale 1-3) [facility] insulin glargine (LANTUS U-100) injection 17 Units 2021-07 03:00: 00 Yes 17U 17 Units, Subcutaneo us, QHS, First dose on Mon05/17/22 at 2100, Until Discontinu ed, Routine [facility] insulin glargine (LANTUS U-100) injection 17 Units 2021-07 03:00: 00 Yes 17U 17 Units, Subcutaneo us, QHS, First dose on Mon05/17/22 at 2100, Until Discontinu ed, Routine [facility] insulin aspart U-100 (NOVOLOG FLEXPEN U-100 INSULIN) 100 unit/mL (3 mL) injection 2021-07 00:00: 00 Yes [id number] 5U inject 5 Units under the skin in the morning and 5 Units at noon and 5 Units in the evening. [facility] Insulin Detemir 100 unit/mL (3 mL) injection 2021-07 00:00: 00 Yes [id number] 17U inject 17 Units under the skin in the morning and 17 Units in the evening. [facility] insulin aspart U-100 (NOVOLOG FLEXPEN U-100 INSULIN) 100 unit/mL (3 mL) injection 2021-07 00:00: 00 Yes [id number] 5U inject 5 Units under the skin in the morning and 5 Units at noon and 5 Units in the evening. [facility] Insulin Detemir 100 unit/mL (3 mL) injection 2021-07 00:00: 00 Yes [id number] 17U inject 17 Units under the skin in the morning and 17 Units in the evening. [facility] insulin aspart U-100 (NOVOLOG FLEXPEN U-100 INSULIN) 100 unit/mL (3 mL) injection 2021-07 00:00: 00 Yes [id number] 5U inject 5 Units under the skin in the morning and 5 Units at noon and 5 Units in the evening. [facility] Insulin Detemir 100 unit/mL (3 mL) injection 2021-07 00:00: 00 Yes [id number] 17U inject 17 Units under the skin in the morning and 17 Units in the evening. [facility] insulin aspart U-100 (NOVOLOG FLEXPEN U-100 INSULIN) 100 unit/mL (3 mL) injection 2021-07 00:00: 00 Yes [id number] 5U inject 5 Units under the skin in the morning and 5 Units at noon and 5 Units in the evening. [facility] Insulin Detemir 100 unit/mL (3 mL) injection 2021-07 00:00: 00 Yes [id number] 17U inject 17 Units under the skin in the morning and 17 Units in the evening. [facility] insulin aspart U-100 (NOVOLOG FLEXPEN U-100 INSULIN) 100 unit/mL (3 mL) injection 2021-07 00:00: 00 Yes [id number] 5U inject 5 Units under the skin in the morning and 5 Units at noon and 5 Units in the evening. [facility] Insulin Detemir 100 unit/mL (3 mL) injection 2021-07 00:00: 00 Yes [id number] 17U inject 17 Units under the skin in the morning and 17 Units in the evening. [facility] metoprolol tartrate 50 mg tablet 2021-07 18:59: 23 Yes 50mg Take 50 mg by mouth in the morning and 50 mg in the evening. [facility] traZODone 50 mg tablet 2021-07 18:59: 23 Yes 50mg Take 50 mg by mouth at bedtime. [facility] metoprolol tartrate 50 mg tablet 2021-07 18:59: 23 Yes 50mg Take 50 mg by mouth in the morning and 50 mg in the evening. [facility] traZODone 50 mg tablet 2021-07 18:59: 23 Yes 50mg Take 50 mg by mouth at bedtime. [facility] clopidogreL (PLAVIX) 75 mg tablet 75 mg 2021-07 18:00: 00 Yes 75mg 75 mg, Oral, DAILY, First dose on Mon05/17/22 at 1200, Until Discontinu ed, Routine [facility] aspirin chewable tablet 81 mg 2021-07 18:00: 00 Yes 81mg 81 mg, Oral, DAILY, First dose on Mon05/17/22 at 1200, Until Discontinu ed, Routine [facility] furosemide (LASIX) tablet 40 mg 2021-07 17:30: 00 Yes 40mg 40 mg, Oral, DAILY, First dose on Mon05/17/22 at 1130, Until Discontinu ed, Routine [facility] amLODIPine (NORVASC) tablet 5 mg 2021-07 15:00: 00 Yes 5mg 5 mg, Oral, DAILY, First dose on Mon05/17/22 at 0900, Until Discontinu ed, Routine [facility] pantoprazol e (PROTONIX) EC tablet 40 mg 2021-07 15:00: 00 Yes 40mg 40 mg, Oral, DAILY, First dose on Mon05/17/22 at 0900, Until Discontinu ed, Routine [facility] amLODIPine (NORVASC) tablet 5 mg 2021-07 15:00: 00 Yes 5mg 5 mg, Oral, DAILY, First dose on Mon05/17/22 at 0900, Until Discontinu ed, Routine [facility] pantoprazol e (PROTONIX) EC tablet 40 mg 2021-07 15:00: 00 Yes 40mg 40 mg, Oral, DAILY, First dose on Mon05/17/22 at 0900, Until Discontinu ed, Routine [facility] potassium chloride in water 10 mEq/100 mL RTU 10 mEq 2021-07 14:00: 00 05-17 22:30 :00 No 10meq 10 mEq, IV Piggyback, Q2H, 4 doses, First dose on Mon05/17/22 at 0800, Last dose on Mon05/17/22 at 1400, Administer over 60 Minutes, 100 mL [facility] KCL (KLOR-CON M20) tablet 40 mEq 2021-07 13:45: 00 05-17 14:58 :00 No 40meq 40 mEq, Oral, ONCE, 1 dose, On Mon05/17/22 at 0745, Routine [facility] furosemide 40 mg tablet 2021-07 11:19: 35 05-17 00:00 :00 No 40mg Take 40 mg by mouth every morning and evening. [facility] furosemide 40 mg tablet 2021-07 00:00: 00 Yes [id number] 40mg Take 1 tablet by mouth in the morning. [facility] furosemide 40 mg tablet 2021-07 00:00: 00 Yes [id number] 40mg Take 1 tablet by mouth in the morning. [facility] furosemide 40 mg tablet 2021-07 00:00: 00 Yes [id number] 40mg Take 1 tablet by mouth in the morning. [facility] furosemide 40 mg tablet 2021-07 00:00: 00 Yes [id number] 40mg Take 1 tablet by mouth in the morning. [facility] furosemide 40 mg tablet 2021-07 00:00: 00 Yes [id number] 40mg Take 1 tablet by mouth in the morning. [facility] furosemide 40 mg tablet 2021-07 00:00: 00 07-26 00:00 :00 No [id number] 40mg Take 1 tablet by mouth in the morning. [facility] Insulin Detemir 100 unit/mL (3 mL) injection 2021-07 00:00: 00 06-17 05:59 :00 No [id number] 17U inject 17 Units under the skin in the morning and 17 Units in the evening. Do all this for 30 days. [facility] pantoprazol e 40 mg EC tablet 2021-07 00:00: 00 06-17 05:59 :00 No [id number] 40mg Take 1 tablet by mouth in the morning and 1 tablet in the evening. Do all this for 30 days. [facility] pantoprazol e 40 mg EC tablet 2021-07 00:00: 00 06-17 05:59 :00 No [id number] 40mg Take 1 tablet by mouth in the morning and 1 tablet in the evening. Do all this for 30 days. [facility] metoprolol tartrate 50 mg tablet 2021-07 21:59: 40 Yes 50mg Take 50 mg by mouth in the morning and 50 mg in the evening. [facility] traZODone 50 mg tablet 2021-07 21:59: 40 Yes 50mg Take 50 mg by mouth at bedtime. [facility] furosemide 40 mg tablet 2021-07 21:59: 40 Yes 40mg Take 40 mg by mouth every morning and evening. [facility] levothyroxi ne 50 mcg tablet 2021-07 21:59: 40 05-14 00:00 :00 No 50ug Take 50 mcg by mouth. [facility] levothyroxi ne 50 mcg tablet 2021-07 21:59: 40 05-14 00:00 :00 No 50ug Take 50 mcg by mouth. [facility] magnesium oxide (MAG-OX 400) tablet 400 mg 2021-07 14:00: 00 05-16 14:15 :00 No 400mg 400 mg, Oral, ONCE, 1 dose, On Mon05/16/22 at 0800, Routine [facility] HYDROcodone -acetaminop hen (NORCO 5) 5-325 mg tablet 1 tablet 2021-07 09:13: 03 Yes 1{tbl} 1 tablet, Oral, Q6HPRN, Starting on Mon05/16/22 at 0313, Until Discontinu ed, Routine, Pain (scale 7-10) [facility] HYDROcodone -acetaminop hen (NORCO 5) 5-325 mg tablet 1 tablet 2021-07 09:13: 03 Yes 1{tbl} 1 tablet, Oral, Q6HPRN, Starting on Mon05/16/22 at 0313, Until Discontinu ed, Routine, Pain (scale 7-10) [facility] traZODone (DESYREL) tablet 50 mg 2021-07 03:00: 00 Yes 50mg 50 mg, Oral, QHS, First dose on Mon05/15/22 at 2100, Until Discontinu ed, Routine [facility] traZODone (DESYREL) tablet 50 mg 2021-07 03:00: 00 Yes 50mg 50 mg, Oral, QHS, First dose on Mon05/15/22 at 2100, Until Discontinu ed, Routine [facility] bisacodyL (DULCOLAX) tablet 10 mg 2021-07 22:30: 00 05-15 23:04 :00 No 10mg 10 mg, Oral, PRE-PROCED URE ONCE, 1 dose, Starting on Mon05/15/22 at 1630, Until Discontinu ed, Routine, Bowel Prep, Colonoscop y [facility] bisacodyL (DULCOLAX) tablet 10 mg 2021-07 19:00: 00 05-15 21:39 :00 No 10mg 10 mg, Oral, PRE-PROCED URE ONCE, 1 dose, Starting on Mon05/15/22 at 1300, Until Discontinu ed, Routine, Bowel Prep, Colonoscop y [facility] ondansetron (ZOFRAN (PF)) injection 4 mg 2021-07 18:37: 44 Yes 4mg 4 mg, Slow IV Push, Q6HPRN, Starting on Mon05/15/22 at 1237, Until Discontinu ed, Routine, Nausea and Vomiting (N/V) [facility] ondansetron (ZOFRAN (PF)) injection 4 mg 2021-07 18:37: 44 Yes 4mg 4 mg, Slow IV Push, Q6HPRN, Starting on 05/15/22 at 1237, Until Discontinu ed, Routine, Nausea and Vomiting (N/V) [facility] peg-electro lyte soln (GOLYTELY) 236-22.74-6 .74 -5.86 gram solution 4,000 mL 2021-07 18:37: 44 05-17 04:11 :51 No 4000mL 4,000 mL, Oral, PRN - SEE INSTRUCTIO NS, Starting on 05/15/22 at 1237, Until 05/16/22 at 2211, Routine, Bowel Prep, colonoscop y [facility] sulfur hexafluorid e microsphr (LUMASON) injection 5 mL 2021-07 18:15: 00 05-15 16:16 :00 No [id number] 5mL 5 mL, Intravenou s, ONCE, 1 dose, On 05/15/22 at 1215, Routine
produce service team member approving Restricted medication : TRAE JORDAN [facility] metoprolol tartrate (LOPRESSOR) tablet 25 mg 2021-07 14:00: 00 Yes 25mg 25 mg, Oral, BID, First dose (after last modificati on) on 05/15/22 at 0800, Until Discontinu ed, Routine [facility] metoprolol tartrate (LOPRESSOR) tablet 25 mg 2021-07 14:00: 00 Yes 25mg 25 mg, Oral, BID, First dose (after last modificati on) on 05/15/22 at 0800, Until Discontinu ed, Routine [facility] atorvastati n (LIPITOR) tablet 40 mg 2021-07 03:00: 00 Yes 40mg 40 mg, Oral, QHS, First dose on 05/14/22 at 2100, Until Discontinu ed, Routine [facility] atorvastati n (LIPITOR) tablet 40 mg 2021-07 03:00: 00 Yes 40mg 40 mg, Oral, QHS, First dose on 05/14/22 at 2100, Until Discontinu ed, Routine [facility] clopidogreL (PLAVIX) 75 mg tablet 75 mg 2021-07 22:45: 00 05-16 00:36 :44 No 75mg 75 mg, Oral, DAILY, First dose on 05/14/22 at 1645, Until Discontinu ed, Routine [facility] acetaminoph en (TYLENOL) tablet 650 mg 2021-07 21:30: 00 05-15 00:16 :00 No 650mg 650 mg, Oral, ONCE, 1 dose, On 05/14/22 at 1530, [facility],000 mL 2021-07 19:00: 00 05-14 21:17 :15 No 1000mL at 999 mL/hr, 1,000 mL, Intravenou s, ONCE, 1 dose, On 05/14/22 at 1300, STAT [facility] furosemide (LASIX) tablet 40 mg 2021-07 15:00: 00 05-14 18:15 :34 No 40mg 40 mg, Oral, QAM+PM, First dose on 05/14/22 at 0900, Until Discontinu ed, Routine [facility] Sliding Scale Insulin - Lispro (HumaLOG) + Fsbg Testing 2021-07 14:00: 00 Yes Subcutaneo us, TID MEALS+HS, First dose on 05/14/22 at 0800, Until Discontinu ed, Routine [facility] - Lispro (HumaLOG) + Fsbg Testing 2021-07 14:00: 00 Yes Subcutaneo us, TID MEALS+HS, First dose on 05/14/22 at 0800, Until Discontinu ed, Routine [facility] metoprolol tartrate (LOPRESSOR) tablet 50 mg 2021-07 14:00: 00 2022- 11-13 07:38 :55 No 50mg 50 mg, Oral, BID, First dose on 05/14/22 at 0800, Until Discontinu ed, Routine [facility] pantoprazol e (PROTONIX) injection 40 mg 2021-07 14:00: 00 05-14 18:09 :31 No 40mg 40 mg, Slow IV Push, Q12H, First dose on 05/14/22 at 0800, Until Discontinu ed [facility] acetaminoph en (TYLENOL) tablet 650 mg 2021-07 11:42: 27 Yes 650mg 650 mg, Oral, Q6HPRN, Starting on 05/14/22 at 0542, Until Discontinu ed, Routine, Pain (scale 1-3) [facility] acetaminoph en (TYLENOL) tablet 650 mg 2021-07 11:42: 27 Yes 650mg 650 mg, Oral, Q6HPRN, Starting on 05/14/22 at 0542, Until Discontinu ed, Routine, Pain (scale 1-3) [facility] Insulin Detemir 100 unit/mL (3 mL) injection 2021-07 00:00: 00 05-05 04:59 :00 No 24U inject 24 Units under the skin in the morning and 24 Units in the evening. [facility] Insulin Detemir 100 unit/mL (3 mL) injection 2021-07 00:00: 00 05-17 00:00 :00 No 24U inject 24 Units under the skin in the morning and 24 Units in the evening. [facility] insulin aspart U-100 (NOVOLOG FLEXPEN U-100 INSULIN) 100 unit/mL (3 mL) injection 2021-07 0 00:00: 00 04-14 04:59 :00 No 5U inject 5 Units under the skin in the morning and 5 Units at noon and 5 Units in the evening. [facility] insulin aspart U-100 (NOVOLOG FLEXPEN U-100 INSULIN) 100 unit/mL (3 mL) injection 2021-07 012 00:00: 00 04-14 04:59 :00 No 5U inject 5 Units under the skin in the morning and 5 Units at noon and 5 Units in the evening. [facility] clopidogreL 75 mg tablet 03-15 00:00: 00 Yes 75mg Take 75 mg by mouth. [facility] clopidogreL 75 mg tablet 03-15 00:00: 00 Yes 75mg Take 75 mg by mouth. [facility] pantoprazol e 40 mg EC tablet 03-15 00:00: 00 Yes 40mg 40 mg. [facility] clopidogreL 75 mg tablet 03-15 00:00: 00 Yes 75mg Take 75 mg by mouth. [facility] clopidogreL 75 mg tablet 03-15 00:00: 00 Yes 75mg Take 75 mg by mouth. [facility] clopidogreL 75 mg tablet 03-15 00:00: 00 Yes 75mg Take 75 mg by mouth. [facility] clopidogreL 75 mg tablet 03-15 00:00: 00 Yes 75mg Take 75 mg by mouth. [facility] clopidogreL 75 mg tablet 03-15 00:00: 00 Yes 75mg Take 75 mg by mouth. [facility] pantoprazol e 40 mg EC tablet 03-15 00:00: 00 05-17 00:00 :00 No 40mg 40 mg. [facility] aspirin 81 mg Cap 03-09 00:00: 00 Yes 81mg 81 mg. [facility] aspirin 81 mg Cap 03-09 00:00: 00 Yes 81mg 81 mg. [facility] aspirin 81 mg Cap 0 03-09 00:00: 00 Yes 81mg 81 mg. [facility] aspirin 81 mg Cap 03-09 00:00: 00 06-29 00:00 :00 No 81mg 81 mg. [facility] gabapentin 100 mg capsule 0 01-22 00:00: 00 Yes 200mg Take 200 mg by mouth. [facility] gabapentin 100 mg capsule 01-22 00:00: 00 Yes 200mg Take 200 mg by mouth. [facility] gabapentin 100 mg capsule 0 01-22 00:00: 00 Yes 200mg Take 200 mg by mouth. [facility] gabapentin 100 mg capsule 0 01-22 00:00: 00 Yes 200mg Take 200 mg by mouth. [facility] gabapentin 100 mg capsule 0 01-22 00:00: 00 Yes 200mg Take 200 mg by mouth. [facility] gabapentin 100 mg capsule 0 01-22 00:00: 00 Yes 200mg Take 200 mg by mouth. [facility] gabapentin 100 mg capsule 0 01-22 00:00: 00 Yes 200mg Take 200 mg by mouth. [facility] atorvastati n 40 mg tablet 0 01-22 00:00: 00 05-05 04:59 :00 No 40mg Take 40 mg by mouth. [facility] atorvastati n 40 mg tablet 0 01-22 00:00: 00 05-05 04:59 :00 No 40mg Take 40 mg by mouth. [facility] atorvastati n 40 mg tablet 0 01-22 00:00: 00 05-05 04:59 :00 No 40mg Take 40 mg by mouth. [facility] atorvastati n 40 mg tablet 0 01-22 00:00: 00 05-05 04:59 :00 No 40mg Take 40 mg by mouth. [facility] atorvastati n 40 mg tablet 0 01-22 00:00: 00 05-05 04:59 :00 No 40mg Take 40 mg by mouth. [facility] atorvastati n 40 mg tablet 0 01-22 00:00: 00 05-05 04:59 :00 No 40mg Take 40 mg by mouth. [facility] atorvastati n 40 mg tablet 0 01-22 00:00: 00 05-05 04:59 :00 No 40mg Take 40 mg by mouth. [facility] losartan 50 mg tablet 01-22 00:00: 00 04-14 04:59 :00 No 50mg Take 50 mg by mouth. [facility] losartan 50 mg tablet 01-22 00:00: 00 04-14 04:59 :00 No 50mg Take 50 mg by mouth. [facility] losartan 50 mg tablet 01-22 00:00: 00 04-14 04:59 :00 No 50mg Take 50 mg by mouth. [facility] losartan 50 mg tablet 01-22 00:00: 00 04-14 04:59 :00 No 50mg Take 50 mg by mouth. [facility] losartan 50 mg tablet 01-22 00:00: 00 04-14 04:59 :00 No 50mg Take 50 mg by mouth. [facility] losartan 50 mg tablet 01-22 00:00: 00 04-14 04:59 :00 No 50mg Take 50 mg by mouth. [facility] losartan 50 mg tablet 01-22 00:00: 00 04-14 04:59 :00 No 50mg Take 50 mg by mouth. [facility] amLODIPine 5 mg tablet 01-22 00:00: 00 05-14 00:00 :00 No 5mg 5 mg. [facility] cilostazoL 100 mg tablet 01-22 00:00: 00 05-14 00:00 :00 No 1{tbl} Take 1 tablet by mouth every morning and evening. [facility] amLODIPine 5 mg tablet 01-22 00:00: 00 05-14 00:00 :00 No 5mg 5 mg. [facility] dapaglifloz in-metformi n 10-1,000 mg TBph 01-22 00:00: 00 05-14 00:00 :00 No Take by mouth. [facility] cilostazoL 100 mg tablet 01-22 00:00: 00 05-14 00:00 :00 No 1{tbl} Take 1 tablet by mouth every morning and evening. [facility] dapaglifloz in-metformi n 10-1,000 mg TBph 01-22 00:00: 00 05-14 00:00 :00 No Take by mouth. [facility] Vital Signs Vital Name Observation Time Observation Value Comments S steven Systolic blood pressure 2022-06-29 18:12:00 122 mm[Hg] [facility] Diastolic blood pressure 2022-06-29 18:12:00 58 mm[Hg] [facility] Heart rate 2022-06-29 18:12:00 82 /min Unive [facility] Body temperature 2022-06-29 18:12:00 36.61 Candy [facility] Respiratory rate 2022-06-29 18:12:00 16 /min [facility] Oxygen saturation in Arterial blood by Pulse oximetry 2022-06-29 18:12:00 96 /min [facility] Body height 2022-06-28 09:01:00 182.9 cm [facility] Body weight 2022-06-28 09:01:00 84.324 kg [facility] BMI 2022-06-28 09:01:00 25.21 kg/m2 [facility] Systolic blood pressure 2022-05-17 21:59:00 162 mm[Hg] [facility] Diastolic blood pressure 2022-05-17 21:59:00 76 mm[Hg] [facility] Heart rate 2022-05-17 21:59:00 86 /min Unive [facility] Body temperature 2022-05-17 21:59:00 37.28 Candy [facility] Respiratory rate 2022-05-17 21:59:00 18 /min [facility] Oxygen saturation in Arterial blood by Pulse oximetry 2022-05-17 21:59:00 95 /min [facility] Body weight 2022-05-14 11:02:00 86.18 kg [facility] Systolic blood pressure 2022-05-16 22:02:00 134 mm[Hg] [facility] Diastolic blood pressure 2022-05-16 22:02:00 83 mm[Hg] [facility] Respiratory rate 2022-05-16 22:02:00 19 /min [facility] Oxygen saturation in Arterial blood by Pulse oximetry 2022-05-16 22:02:00 98 /min [facility] Heart rate 2022-05-16 22:00:00 78 /min [facility] Body temperature 2022-05-16 14:00:00 36.22 Candy [facility] Body weight 2022-05-14 11:02:00 86.18 kg [facility] Procedures Procedure Date / Time Performed Performing Clinician Source EXTERNAL PROVIDER RECORDS 2022-07-08 06:01:00 Doctor Unassigned, [place] [facility] POCT GLUCOSE (AUTOMATED) 2022-06-29 18:21:00 Randy Sy [facility] POCT GLUCOSE (AUTOMATED) 2022-06-29 15:34:00 Randy Sy [facility] CBC WITH DIFF 2022-06-29 11:58:[address] [facility] POCT GLUCOSE (AUTOMATED) 2022-06-29 02:39:00 Randy Sy [facility] POCT GLUCOSE (AUTOMATED) 2022-06-28 23:11:00 Randy Sy [facility] CBC WITH DIFF 2022-06-28 20:43:00 Tremayne Briones [facility] POCT GLUCOSE (AUTOMATED) 2022-06-28 17:59:00 Randy Sy [facility] POCT GLUCOSE (AUTOMATED) 2022-06-28 15:05:00 Randy Sy [facility] HEPATIC FUNCTION PANEL (8007 6) (ALB,T.PRO,BILI T,BU/BC,ALT,AST,ALK PHOS) 2022-06-28 11:52:00 Tremayne Briones [facility] BASIC METABOLIC PANEL (NA, K , CL, CO2, GLUCOSE, BUN, CREATININE, CA) 2022-06-28 11:52:00 Anselmo, [facility] CBC WITH DIFF 2022-06-28 11:52:[address] [facility] PROTHROMBIN TIME / INR 2022-06-28 11:52:[address] [facility] ACTIVATED PARTIAL THRMPLAS JAMESON 2022-06-03 7 11:52:[address] [facility] HB ABO GROUPING 2022-06-28 11:50:[address] [facility] POCT GLUCOSE (AUTOMATED) 2022-05-17 23:13:00 Ayo Alva [facility] POCT GLUCOSE (AUTOMATED) 2022-05-17 22:00:00 Ayo Alva [facility] POCT GLUCOSE (AUTOMATED) 2022-05-17 17:38:00 Ayo Alva [facility] POCT GLUCOSE (AUTOMATED) 2022-05-17 13:57:00 Ayo Alva [facility] BASIC METABOLIC PANEL (NA, K , CL, CO2, GLUCOSE, BUN, CREATININE, CA) 2022-05-17 07:42:00 Kenji [facility] CBC WITHOUT DIFF 2022-05-17 07:42:00 Kenji [facility] BASIC METABOLIC PANEL (NA, K , CL, CO2, GLUCOSE, BUN, CREATININE, CA) 2022-05-17 07:42:00 Kenji [facility] CBC WITHOUT DIFF 2022-05-17 07:42:00 Kenji [facility] POCT GLUCOSE (AUTOMATED) 2022-05-17 01:40:00 Ayo Alva [facility] POCT GLUCOSE (AUTOMATED) 2022-05-17 01:40:00 Ayo Alva [facility] POCT GLUCOSE (AUTOMATED) 2022-05-16 22:12:00 Ayo Alva [facility] POCT GLUCOSE (AUTOMATED) 2022-05-16 22:12:00 Ayo Alva [facility] COLONOSCOPY (ENDO) 2022-05-16 20:04:24 Katie Phillip [facility] COLONOSCOPY (ENDO) 2022-05-16 20:04:24 Katie Phillip [facility] EGD (ENDO) 2022-05-16 19:53:16 Mt Phillipoja [facility] EGD (ENDO) 2022-05-16 19:53[facility]16 [facility]-16 19:41:00 Ish [facility] ESOPHAGOGASTRODUODENOSCOPY 2022-05-16 19:41:00 Ish [facility] COLONOSCOPY 2022-05-16 19:41:00 Ish [facility] ESOPHAGOGASTRODUODENOSCOPY 2022-05-16 19:41:00 Ish [facility] POCT GLUCOSE (AUTOMATED) 2022-05-16 17:29:00 Vannessa [facility] POCT GLUCOSE (AUTOMATED) 2022-05-16 17:29:[address] [facility] [facility] ABDOMEN WO CONTRAST 2022-05-16 15:37:[address] [facility] CT ABDOMEN WO CONTRAST 2022-05-16 15:37:03 Kenji [facility] CBC WITHOUT DIFF 2022-05-16 15:29:00 Lorraine [facility] CBC WITHOUT DIFF 2022-05-16 15:29[facility]00 [facility] 2022-05-16 14:07:00 Vannessa [facility] POCT GLUCOSE (AUTOMATED) 2022-05-16 14:07:00 [facility]-16 11:26:00 Sofia [facility] BASIC METABOLIC PANEL (NA, K , CL, CO2, GLUCOSE, BUN, CREATININE, CA) 2022-05-16 11:26:00 Sofia [facility] CBC WITHOUT DIFF 2022-05-16 11:26:00 [facility] 2022-05-16 11:26:00 Sofia [facility] BASIC METABOLIC PANEL (NA, K , CL, CO2, GLUCOSE, BUN, CREATININE, CA) 2022-05-16 11:26:00 Sofia [facility] CBC WITHOUT DIFF 2022-05-16 11:26:00 Lorraine [facility] POCT GLUCOSE (AUTOMATED) 2022-05-15 22:07:00 [facility] POCT GLUCOSE (AUTOMATED) 2022-05-15 22:07:00 Vannessa [facility] CBC WITHOUT DIFF 2022-05-15 22:00:00 Lorraine [facility] CBC WITHOUT DIFF 2022-05-15 22:00:00 Lorraine [facility] POCT GLUCOSE (AUTOMATED) 2022-05-15 17:49:00 Vannessa [facility] POCT GLUCOSE (AUTOMATED) 2022-05-15 17:49:00 [facility] TRAN[facility] (TTE) COM PLETE W/ CONTRAST 2022-05-15 16:21:00 Lorraine [facility] TRANSTHORACIC ECHO (TTE) COM PLETE W/ CONTRAST 2022-05-15 16:21:00 Lorraine [facility] TRANSFUSE PACKED RBC 2022-05-15 14:45:00 Lorraine [facility] TRANSFUSE PACKED RBC 2022-05-15 14:45:00 Lorraine [facility] PREPARE PACKED RBC 2022-05-15 14:38:44 Lorraine [facility] PREPARE PACKED RBC 2022-05-15 14:38:44 Lorraine [facility] XR SHOULDER 2+ VW LEFT 2022-05-15 14:34:00 Savannah [facility] XR SHOULDER 2+ VW LEFT 2022-05-15 14:34:00 Savannah [facility] CBC WITHOUT DIFF 2022-05-15 13:47:00 Savannah [facility] CBC WITHOUT DIFF 2022-05-15 13:47:00 Savannah [facility] POCT GLUCOSE (AUTOMATED) 2022-05-15 13:45:00 Chava Hurd [facility] POCT GLUCOSE (AUTOMATED) 2022-05-15 13:45:00 Chava Hurd [facility] MAGNESIUM 2022-05-15 10:42:00 Teto [facility] BASIC METABOLIC PANEL (NA, K , CL, CO2, GLUCOSE, BUN, CREATININE, CA) 2022-05-15 10:42:00 [facility] 2022-05-15 10:42:00 Savannah [facility] MAGNESIUM 2022-05-15 10:42:00 Teto [facility] BASIC METABOLIC PANEL (NA, K , CL, CO2, GLUCOSE, BUN, CREATININE, CA) 2022-05-15 10:42:00 Sofia [facility] CBC WITHOUT DIFF 2022-05-15 10:42:00 Sav[facility] LIPID PANEL (07460)(TOTAL CHOLESTEROL, TRIGLYCERIDES, HDL) 2022-05-15 04:26:00 [facility] WITHOUT DIFF 2022-05-15 04:26:00 Savannah [facility] LIPID PANEL (46615)(TOTAL CHOLESTEROL, TRIGLYCERIDES, HDL) 2022-05-15 04:26:00 Katie Phillip [facility] CBC WITHOUT DIFF 2022-05-15 04:26:00 [facility] CBC WITHOUT DIFF 2022-05-14 21:37:00 Sav[facility] CBC WITHOUT DIFF 2022-05-14 21:37:00 Savannah [facility] ABORH CONFIRMATION (LAB ONLY) 2022-05-14 19:21:00 Katie Phillip [facility] ABORH CONFIRMATION (LAB ONLY) 2022-05-14 19:21:00 Katie Phillip [facility] POCT GLUCOSE (AUTOMATED) 2022-05-14 18:51:00 Sweet, [facility] POCT GLUCOSE (AUTOMATED) 2022-05-14 18:51:00 Samuel [facility] HB ABO GROUPING 2022-05-14 18:46:00 Yon [facility] CBC WITHOUT DIFF 2022-05-14 18:46:00 Yon [facility] HB ABO GROUPING 2022-05-14 18:46:00 Yon [facility] CBC WITHOUT DIFF 2022-05-14 18:46:00 Yon [facility] POCT GLUCOSE (AUTOMATED) 2022-05-14 15:46:00 Samuel [facility] POCT GLUCOSE (AUTOMATED) 2022-05-14 15:46:00 Samuel [facility] N-TERMINAL PRO-BNP 2022-05-14 12:50:00 Kenji [facility] MAGNESIUM 2022-05-14 12:50:00 Kenji [facility] HEPATIC FUNCTION PANEL (8007 6) (ALB,T.PRO,BILI T,BU/BC,ALT,AST,ALK PHOS) 2022-05-14 12:50:00 Kenji [facility] BASIC METABOLIC PANEL (NA, K , CL, CO2, GLUCOSE, BUN, CREATININE, CA) 2022-05-14 12:50:00 Kenji [facility] CBC WITH DIFF 2022-05-14 12:50:00 Phillip [facility] GLYCOSYLATED HEMOGLOBIN (A1C) 2022-05-14 12:50:00 Phillip [facility] PROTHROMBIN TIME / INR 2022-05-14 12:50:00 Phillip [facility] N-TERMINAL PRO-BNP 2022-05-14 12:50:00 Kenji [facility] MAGNESIUM 2022-05-14 [facility] (8007 6) (ALB,T.PRO,BILI T,BU/BC,ALT,AST,ALK PHOS) 2022-05-14 12:50:00 Katie Phillip [facility] BASIC METABOLIC PANEL (NA, K , CL, CO2, GLUCOSE, BUN, CREATININE, CA) 2022-05-14 12:50:00 Katie Phillip [facility] CBC WITH DIFF 2022-05-14 12:50:00 Mt Phillipoja [facility] GLYCOSYLATED HEMOGLOBIN (A1C) 2022-05-14 12:50:00 Mt Phillipoja [facility] PROTHROMBIN TIME / INR 2022-05-14 12:50:00 Mt Phillipoja [facility] HOSPITAL ADMISSION 2022-05-14 06:01:00 Doctor Unassigned, [place] [facility] Encounters Start Date/Time End Date/Time Encounter Type Admission Type Attending Clinicians Care Facility Care Department Encounter ID Source 2022-07-21 00:00:00 2022-07-21 00:00:00 Britni Hernandez [facility] 1..840.114 350.1.13.10 4.2.7.2.686 [id number] [facility] 2022-07-08 00:00:00 2022-07-08 00:00:00 Orders Only Doctor Unassigned, [place] [facility] 1..840.114 350.1.13.10 4.2.7.2.686 [id number] [facility] 2022-06-30 00:00:00 2022-06-30 00:00:00 Transition of Care Dora Murphy 1..840.114 350.1.13.10 4.2.7.2.686 [id number] [facility] 2022-06-28 02:44:00 2022-06-29 15:49:00 Outpatient U RANDY SY [facility] [id number] [facility] 2022-06-28 02:44:00 2022-06-29 15:49:00 Hospital Encounter Randy Sy [facility] 1.2.840.114 350.1.13.10 4.2.7.2.686 [id number] [facility] 2022-05-18 00:00:00 2022-05-18 00:00:00 Transition of Care Dora Murphy 1.2.840.114 350.1.13.10 4.2.7.2.686 [id number] [facility] 2022-05-14 04:59:00 2022-05-17 18:59:00 Hospital Encounter Joey Baker, Gregoria Coats, Fritz Hurd, Chava Alva, Ayo [facility] 1.2.840.114 350.1.13.10 4.2.7.2.686 [id number] [facility] 2022-05-14 04:59:00 2022-05-17 18:59:00 Inpatient FRITZ CA [facility] [id number] [facility] 2022-05-16 15:07:00 2022-05-16 16:02:00 Surgery Dm Deng [facility] 1.2.840.114 350.1.13.10 4.2.7.2.686 [id number] [facility] 2022-04-27 00:00:00 2022-04-27 00:00:00 Outpatient DMG DMG [id number] [facility] 2022-04-27 00:00:00 2022-04-27 00:00:00 Outpatient DMG DMG [id number] [facility] 2022-04-27 00:00:00 2022-04-27 00:00:00 Outpatient DMG DMG [id number] [facility] 2022-04-27 00:00:00 2022-04-27 00:00:00 Outpatient DMG DMG [id number] [facility] 2022-04-27 00:00:2022-04-27 00:00:00 Outpatient DMG DMG [id number] [facility] 2022-04-27 00:00:00 2022-04-27 00:00:00 Outpatient DMG DMG [id number] [facility] 2022-04-27 00:00:00 2022-04-27 00:00:00 Outpatient DMG DMG [id number] [facility] 2022-04-27 00:00:00 2022-04-27 00:00:00 Outpatient DMG DMG [id number] [facility] 2022-02-24 00:00:00 2022-02-24 00:00:00 Outpatient DMG DMG [id number] [facility] Results Test Description Test Time Test Comments Results Result Co mments Source [facility] GLUCOSE (AUTOMATED)2022-06-29 15:35:16* Test Item Value Reference Range Interpretation Comme nts POCT GLU (test code = 5045651392) 167 mg/dL 70-110 H Lab Interpretation (test cod e = 08918-8) Abnormal [facility] GLUCOSE (AUTOMATED)2022-06-29 02:41:00* Test Item Value Reference Range Interpretation Comme nts POCT GLU (test code = 7756150857) 153 mg/dL 70-110 H Lab Interpretation (test cod e = 86734-6) Abnormal [facility] GLUCOSE (AUTOMATED)2022-06-28 23:12:05* Test Item Value Reference Range Interpretation Comme nts POCT GLU (test code = 4482763828) 158 mg/dL 70-110 H Lab Interpretation (test cod e = 16008-2) Abnormal [facility] GLUCOSE (AUTOMATED)2022-06-28 18:01:20* Test Item Value Reference Range Interpretation Comme nts POCT GLU (test code = 8526517226) 172 mg/dL 70-110 H Lab Interpretation (test cod e = 11971-5) Abnormal [facility] GLUCOSE (AUTOMATED)2022-06-28 15:58:01* Test Item Value Reference Range Interpretation Comme nts POCT GLU (test code = 2573325286) 153 mg/dL 70-110 H Lab Interpretation (test cod e = 19535-7) [facility]55647[facility] (ALB,T.PRO,BILI T,BU/BC,ALT,AST,ALK PHOS)2022-06-28 12:47:20* Test Item Value Reference Range Interpretation Comme nts TOTAL BILI (test code = 7846682403) 0.4 mg/dL 0.1-1.1 BILI UNCON (test code = 4190129419) 0.1 mg/dL 0.1-1.1 BILI CONJ (test code = 5695544904) 0.0 mg/dL 0.0-0.3 T PROTEIN (test code = 3184525028) 6.7 g/dL 6.3-8.2 ALBUMIN (test code = 8027563985) 3.6 g/dL 3.5-5.0 ALK PHOS (test code = 8498819487) 120 U/L 34-122 ALTv (test code = 1742-6) 17 U/L 5-50 AST(SGOT) (test code = 1440287109) 27 U/L 13-40 Lab Interpretation (test cod e = 95901-0) Normal [facility] (NA, K, CL, CO2, GLUCOSE, BUN, CREATININE, CA)2022-06-28 12:47:19* Test Item Value Reference Range Interpretation Comme nts NA (test code = 1021691846) 133 mmol/L 135-145 L K (test code = 6447779557) 4.0 mmol/L 3.5-5.0 CL (test code = 1289733009) 103 mmol/L 98-108 CO2 TOTAL (test code = 4732800842) 27 mmol/L 23-31 AGAP (test code = 2099626724) 2-16 BUN (test code = 4863477912) 45 mg/dL 7-23 H GLUCOSE (test code = 1280921954) 134 mg/dL 70-110 H CREATININE (test code = 2451842850) 1.18 mg/dL 0.60-1.25 CALCIUM (test code = 6864582795) 8.6 mg/dL 8.6-10.6 eGFR (test code = 7813075529) mL/min/1.73m2 PIPO (test code = PIPO) Association of [...] or abnormalities in imaging tests). Lab Interpretation (test code = 01062-4) [facility]normal [facility] - ONCE [id number] 12:34:39 * Test Item Value Reference Range Interpretation Comme [facility] ABO & RH (test code = 20) O POSITIVE Performed at [facility] Laboratory Services - [facility] Blood [address] Free: [phone] No. [id number] IAT (test code = 1185) Negative Performed at [facility] Laboratory Services - [facility] Blood [address] Free: [phone] No. [id number] [facility]22-[facility]-27 12:28:19* Test Item Value Reference Range Interpretation Comme [facility] APTT Patient (test code = 3173-2) See_Comment [Automated messa ge] The system which generated this result transmitted reference range: 26 - 36 Seconds. The reference range was not used to interpret this result as normal/abnormal. Lab Interpretation (test code = 67304-6) Normal [facility]th[facility] Time / [id number] 12:28:18* Test Item Value Reference Range Interpretation Comme nts PROTIME PATIENT (test code = 5964-2) See_Comment [Automated [employer] ge] The system which generated this result transmitted reference range: 10.1 - 12.6 Seconds. The reference range was not used to interpret this result as normal/abnormal. INR (test code = 6301-6) Normal INR <1.1; Warfarin Therapeutic range 2.0 to 3.0 or 2.5 to 3.5, depending upon the indications. Lab Interpretation (test code = 28352-1) Normal [facility] [id number] 12:26:17* Test Item Value Reference Range Interpretation Comme nts WBC (test code = 6690-2) See_Comment [Automated messa ge] The system which generated this result transmitted reference range: 4.20 - 10.70 10*3/?L. The reference range was not used to interpret this result as normal/abnormal. RBC (test code = 789-8) See_Comment L [Automated messa ge] The system which generated this result transmitted reference range: 4.26 - 5.52 10*6/?L. The reference range was not used to interpret this result as normal/abnormal. HGB (test code = 718-7) 7.7 g/dL 12.2-16.4 L HCT (test code = 4544-3) 23.1 % 38.4-49.3 L MCV (test code = 787-2) 85.9 fL 81.7-95.6 MCH (test code = 785-6) 28.6 pg 26.1-32.7 MCHC (test code = 786-4) 33.3 g/dL 31.2-35.0 RDW-SD (test code = 55075-6) 49.7 fL 38.5-51.6 RDW-CV (test code = 788-0) 15.9 % 12.1-15.4 H PLT (test code = 777-3) See_Comment [Automated messa ge] The system which generated this result transmitted reference range: 150 - 328 10*3/?L. The reference range was not used to interpret this result as normal/abnormal. MPV (test code = 98738-8) 9.6 fL 9.8-13.0 L NRBC/100 WBC (test code = 1115244497) See_Comment [Automated me ssage] The system which generated this result transmitted reference range: 0.0 - 10.0 /100 WBCs. The reference range was not used to interpret this result as normal/abnormal. NRBC x10^3 (test code = 1945163048) See_Comment [Automated messa ge] The system which generated this result transmitted reference range: 10*3/?L. The reference range was not used to interpret this result as normal/abnormal. GRAN MAT (NEUT) % (test code = 770-8) 67.6 % IMM GRAN % (test code = 6916400178) 0.70 % LYMPH % (test code = 736-9) 20.7 % MONO % (test code = 5905-5) 7.1 % EOS % (test code = 713-8) 3.5 % BASO % (test code = 706-2) 0.4 % GRAN MAT x10^3(ANC) (test code = 7104387730) 4.57 10*3/uL 1.99-6.95 IMM GRAN x10^3 (test code = 9832951316) 0.05 10*3/uL 0.00-0.06 LYMPH x10^3 (test code = 731-0) 1.40 10*3/uL 1.09-3.23 MONO x10^3 (test code = 742-7) 0.48 10*3/uL 0.36-1.02 EOS x10^3 (test code = 711-2) 0.24 10*3/uL 0.06-0.53 BASO x10^3 (test code = 704-7) 0.03 10*3/uL 0.01-0.09 Lab Interpretation (test code = 07852-1) Abnormal [facility] GLUCOSE (AUTOMATED)2022-05-17 23:15:41* Test Item Value Reference Range Interpretation Comme nts POCT GLU (test code = 4877767604) 348 mg/dL 70-110 H Lab Interpretation (test cod e = 68389-0) Abnormal [facility] [facility]2022-05-17 22:01:36* Test Item Value Reference Range Interpretation Comme nts POCT GLU (test code = 0600821031) 366 mg/dL 70-110 H Lab Interpretation (test cod e = 12230-5) Abnormal [facility] GLUCOSE (AUTOMATED)2022-05-17 17:39:43* Test Item Value Reference Range Interpretation Comme nts POCT GLU (test code = 4175178689) 253 mg/dL 70-110 H Lab Interpretation (test cod e = 28115-5) Abnormal [facility] GLUCOSE (AUTOMATED)2022-05-17 13:58:09* Test Item Value Reference Range Interpretation Comme nts POCT GLU (test code = 5511853085) 194 mg/dL 70-110 H Lab Interpretation (test cod e = 16566-5) Abnormal [facility] METABOLIC PANEL (NA, K, CL, CO2, GLUCOSE, BUN, CREATININE, CA)2022-05-17 08:24:41* Test Item Value Reference Range Interpretation Comme [facility] NA (test code = 0738679578) 131 mmol/L 135-145 L K (test code = 6016373671) 3.4 mmol/L 3.5-5.0 L CL (test code = 6946247316) 98 mmol/L 98-108 CO2 TOTAL (test code = 0840516607) 31 mmol/L 23-31 AGAP (test code = 1696122570) 2-16 BUN (test code = 1954767753) 12 mg/dL 7-23 GLUCOSE (test code = 0493639931) 221 mg/dL 70-110 H CREATININE (test code = 7647541435) 0.75 mg/dL 0.60-1.25 CALCIUM (test code = 4558131097) 7.3 mg/dL 8.6-10.6 L eGFR (test code = 7186406800) mL/min/1.73m2 PIPO (test code = PIPO) Association of [...] or abnormalities in imaging tests). Lab Interpretation (test code = 35238-0) Abnormal [facility] METABOLIC PANEL (NA, K, CL, CO2, GLUCOSE, BUN, CREATININE, CA)2022-05-17 08:24:41* Test Item Value Reference Range Interpretation Comme nts NA (test code = 1587031379) 131 mmol/L 135-145 L K (test code = 0139648536) 3.4 mmol/L 3.5-5.0 L CL (test code = 4905736053) 98 mmol/L 98-108 CO2 TOTAL (test code = 4112182431) 31 mmol/L 23-31 AGAP (test code = 2787514118) 2-16 BUN (test code = 0093502791) 12 mg/dL 7-23 GLUCOSE (test code = 5016607806) 221 mg/dL 70-110 H CREATININE (test code = 0175463508) 0.75 mg/dL 0.60-1.25 CALCIUM (test code = 1628674668) 7.3 mg/dL 8.6-10.6 L eGFR (test code = 5173785182) mL/min/1.73m2 PIPO (test code = PIPO) Association of [...] or abnormalities in imaging tests). Lab Interpretation (test code = 26307-1) Abnormal [facility] WITHOUT [id number] 08:02:55* Test Item Value Reference Range Interpretation Comme nts WBC (test code = 6690-2) See_Comment [Automated message] The system which generated this result transmitted reference range: 4.20 - 10.70 10*3/?L. The reference range was not used to interpret this result as normal/abnormal. RBC (test code = 789-8) See_Comment L [Automated message] The system which generated this result transmitted reference range: 4.26 - 5.52 10*6/?L. The reference range was not used to interpret this result as normal/abnormal. HGB (test code = 718-7) 7.3 g/dL 12.2-16.4 L HCT (test code = 4544-3) 21.4 % 38.4-49.3 L MCH (test code = 785-6) 28.9 pg 26.1-32.7 MCV (test code = 787-2) 84.6 fL 81.7-95.6 MCHC (test code = 786-4) 34.1 g/dL 31.2-35.0 PLT (test code = 777-3) See_Comment [Automated message] The system which generated this result transmitted reference range: 150 - 328 10*3/?L. The reference range was not used to interpret this result as normal/abnormal. MPV (test code = 20161-2) 9.5 fL 9.8-13.0 L RDW-CV (test code = 788-0) 14.5 % 12.1-15.4 RDW-SD (test code = 65064-7) 45.0 fL 38.5-51.6 NRBC x10^3 (test code = 5530458009) See_Comment [Automated messa ge] The system which generated this result transmitted reference range: 10*3/?L. The reference range was not used to interpret this result as normal/abnormal. NRBC/100 WBC (test code = 4388465132) See_Comment [Automated [employer]] The system which generated this result transmitted reference range: 0.0 - 10.0 /100 WBCs. The reference range was not used to interpret this result as normal/abnormal. IPF % (test code = 0408045559) Lab Interpretation (test code = 84010-5) Abnormal [facility] WITHOUT [id number] 08:02:55* Test Item Value Reference Range Interpretation Comme nts WBC (test code = 6690-2) See_Comment [Automated message] The system which generated this result transmitted reference range: 4.20 - 10.70 10*3/?L. The reference range was not used to interpret this result as normal/abnormal. RBC (test code = 789-8) See_Comment L [Automated message] The system which generated this result transmitted reference range: 4.26 - 5.52 10*6/?L. The reference range was not used to interpret this result as normal/abnormal. HGB (test code = 718-7) 7.3 g/dL 12.2-16.4 L HCT (test code = 4544-3) 21.4 % 38.4-49.3 L MCH (test code = 785-6) 28.9 pg 26.1-32.7 MCV (test code = 787-2) 84.6 fL 81.7-95.6 MCHC (test code = 786-4) 34.1 g/dL 31.2-35.0 PLT (test code = 777-3) See_Comment [Automated message] The system which generated this result transmitted reference range: 150 - 328 10*3/?L. The reference range was not used to interpret this result as normal/abnormal. MPV (test code = 66293-5) 9.5 fL 9.8-13.0 L RDW-CV (test code = 788-0) 14.5 % 12.1-15.4 RDW-SD (test code = 21218-5) 45.0 fL 38.5-51.6 NRBC x10^3 (test code = 8075996170) See_Comment [Automated messa ge] The system which generated this result transmitted reference range: 10*3/?L. The reference range was not used to interpret this result as normal/abnormal. NRBC/100 WBC (test code = 6621047186) See_Comment [Automated messa ge] The system which generated this result transmitted reference range: 0.0 - 10.0 /100 WBCs. The reference range was not used to interpret this result as normal/abnormal. IPF % (test code = 9343420234) Lab Interpretation (test code = 13664-8) Abnormal [facility] GLUCOSE (AUTOMATED)2022-05-17 01:41:19* Test Item Value Reference Range Interpretation Comme nts POCT GLU (test code = 5197491504) 219 mg/dL 70-110 H Lab Interpretation (test cod e = 99884-2) Abnormal [facility] GLUCOSE (AUTOMATED)2022-05-17 01:41:19* Test Item Value Reference Range Interpretation Comme nts POCT GLU (test code = 7265283266) 219 mg/dL 70-110 H Lab Interpretation (test cod e = 67156-2) Abnormal [facility] GLUCOSE (AUTOMATED)2022-05-16 22:19:26* Test Item Value Reference Range Interpretation Comme nts POCT GLU (test code = 2877333422) 195 mg/dL 70-110 H Lab Interpretation (test cod e = 42134-0) Abnormal [facility] GLUCOSE (AUTOMATED)2022-05-16 22:19:26* Test Item Value Reference Range Interpretation Comme nts POCT GLU (test code = 4766588120) 195 mg/dL 70-110 H Lab Interpretation (test cod e = 85610-3) Abnormal [facility] GLUCOSE (AUTOMATED)2022-05-16 17:33:39* Test Item Value Reference Range Interpretation Comme nts POCT GLU (test code = 7573585703) 203 mg/dL 70-110 H Lab Interpretation (test cod e = 25535-5) Abnormal [facility] GLUCOSE (AUTOMATED)2022-05-16 17:33:39* Test Item Value Reference Range Interpretation Comme nts POCT GLU (test code = 3933372493) 203 mg/dL 70-110 H Lab Interpretation (test cod e = 69518-4) Abnormal [facility] WITHOUT [id number] 15:52:40* Test Item Value Reference Range Interpretation Comme nts WBC (test code = 6690-2) See_Comment [Automated message] The system which generated this result transmitted reference range: 4.20 - 10.70 10*3/?L. The reference range was not used to interpret this result as normal/abnormal. RBC (test code = 789-8) See_Comment L [Automated message] The system which generated this result transmitted reference range: 4.26 - 5.52 10*6/?L. The reference range was not used to interpret this result as normal/abnormal. HGB (test code = 718-7) 7.8 g/dL 12.2-16.4 L HCT (test code = 4544-3) 23.8 % 38.4-49.3 L MCH (test code = 785-6) 28.2 pg 26.1-32.7 MCV (test code = 787-2) 85.9 fL 81.7-95.6 MCHC (test code = 786-4) 32.8 g/dL 31.2-35.0 PLT (test code = 777-3) See_Comment [Automated message] The system which generated this result transmitted reference range: 150 - 328 10*3/?L. The reference range was not used to interpret this result as normal/abnormal. MPV (test code = 73263-8) 9.5 fL 9.8-13.0 L RDW-CV (test code = 788-0) 15.0 % 12.1-15.4 RDW-SD (test code = 80876-7) 47.1 fL 38.5-51.6 NRBC x10^3 (test code = 4065608591) See_Comment [Automated messa ge] The system which generated this result transmitted reference range: 10*3/?L. The reference range was not used to interpret this result as normal/abnormal. NRBC/100 WBC (test code = 3691149841) See_Comment [Automated messa ge] The system which generated this result transmitted reference range: 0.0 - 10.0 /100 WBCs. The reference range was not used to interpret this result as normal/abnormal. IPF % (test code = 6124695298) Lab Interpretation (test code = 23413-9) Abnormal [facility] WITHOUT [id number] 15:52:40* Test Item Value Reference Range Interpretation Comme nts WBC (test code = 6690-2) See_Comment [Automated message] The system which generated this result transmitted reference range: 4.20 - 10.70 10*3/?L. The reference range was not used to interpret this result as normal/abnormal. RBC (test code = 789-8) See_Comment L [Automated message] The system which generated this result transmitted reference range: 4.26 - 5.52 10*6/?L. The reference range was not used to interpret this result as normal/abnormal. HGB (test code = 718-7) 7.8 g/dL 12.2-16.4 L HCT (test code = 4544-3) 23.8 % 38.4-49.3 L MCH (test code = 785-6) 28.2 pg 26.1-32.7 MCV (test code = 787-2) 85.9 fL 81.7-95.6 MCHC (test code = 786-4) 32.8 g/dL 31.2-35.0 PLT (test code = 777-3) See_Comment [Automated message] The system which generated this result transmitted reference range: 150 - 328 10*3/?L. The reference range was not used to interpret this result as normal/abnormal. MPV (test code = 46920-5) 9.5 fL 9.8-13.0 L RDW-CV (test code = 788-0) 15.0 % 12.1-15.4 RDW-SD (test code = 55413-6) 47.1 fL 38.5-51.6 NRBC x10^3 (test code = 4091776505) See_Comment [Automated messa ge] The system which generated this result transmitted reference range: 10*3/?L. The reference range was not used to interpret this result as normal/abnormal. NRBC/100 WBC (test code = 4934564153) See_Comment [Automated messa ge] The system which generated this result transmitted reference range: 0.0 - 10.0 /100 WBCs. The reference range was not used to interpret this result as normal/abnormal. IPF % (test code = 0149678775) Lab Interpretation (test code = 78373-4) Abnormal [facility] GLUCOSE (AUTOMATED)2022-05-16 14:09:00* Test Item Value Reference Range Interpretation Comme nts POCT GLU (test code = 0316969258) 194 mg/dL 70-110 H Lab Interpretation (test cod e = 74417-5) Abnormal [facility] GLUCOSE (AUTOMATED)2022-05-16 14:09:00* Test Item Value Reference Range Interpretation Comme nts POCT GLU (test code = 5503533977) 194 mg/dL 70-110 H Lab Interpretation (test cod e = 67720-5) Abnormal [facility]2022-11-14 12:17:29* Test Item Value Reference Range Interpretation Comme nts MAGNESIUM (test code = 1572209125) 1.5 mg/dL 1.7-2.4 L Lab Interpretation (test cod e = 65391-4) Abnormal [facility]2022-11-14 12:17:29* Test Item Value Reference Range Interpretation Comme nts MAGNESIUM (test code = 5810776085) 1.5 mg/dL 1.7-2.4 L Lab Interpretation (test cod e = 75141-9) Abnormal [facility] METABOLIC PANEL (NA, K, CL, CO2, GLUCOSE, BUN, CREATININE, CA)2022-05-16 12:17:28* Test Item Value Reference Range Interpretation Comme nts NA (test code = 1522416897) 134 mmol/L 135-145 L K (test code = 0310228596) 3.5 mmol/L 3.5-5.0 CL (test code = 8836145298) 104 mmol/L 98-108 CO2 TOTAL (test code = 0111673248) 27 mmol/L 23-31 AGAP (test code = 0438345148) 2-16 BUN (test code = 8508105876) 23 mg/dL 7-23 GLUCOSE (test code = 0897067743) 179 mg/dL 70-110 H CREATININE (test code = 0935560861) 0.77 mg/dL 0.60-1.25 CALCIUM (test code = 8763070385) 7.5 mg/dL 8.6-10.6 L eGFR (test code = 9546681731) mL/min/1.73m2 PIPO (test code = PIPO) Association of [...] or abnormalities in imaging tests). Lab Interpretation (test code = 71972-0) Abnormal [facility] METABOLIC PANEL (NA, K, CL, CO2, GLUCOSE, BUN, CREATININE, CA)2022-05-16 12:17:28* Test Item Value Reference Range Interpretation Comme nts NA (test code = 1137923690) 134 mmol/L 135-145 L K (test code = 9863025834) 3.5 mmol/L 3.5-5.0 CL (test code = 4913716131) 104 mmol/L 98-108 CO2 TOTAL (test code = 7585265613) 27 mmol/L 23-31 AGAP (test code = 5356279771) 2-16 BUN (test code = 7211332080) 23 mg/dL 7-23 GLUCOSE (test code = 0368113954) 179 mg/dL 70-110 H CREATININE (test code = 6493941890) 0.77 mg/dL 0.60-1.25 CALCIUM (test code = 2138941508) 7.5 mg/dL 8.6-10.6 L eGFR (test code = 1282933021) mL/min/1.73m2 PIPO (test code = PIPO) Association of [...] or abnormalities in imaging tests). Lab Interpretation (test code = 21561-6) Abnormal [facility] WITHOUT [id number] 11:41:44* Test Item Value Reference Range Interpretation Comme nts WBC (test code = 6690-2) See_Comment [Automated message] The system which generated this result transmitted reference range: 4.20 - 10.70 10*3/?L. The reference range was not used to interpret this result as normal/abnormal. RBC (test code = 789-8) See_Comment L [Automated message] The system which generated this result transmitted reference range: 4.26 - 5.52 10*6/?L. The reference range was not used to interpret this result as normal/abnormal. HGB (test code = 718-7) 7.3 g/dL 12.2-16.4 L HCT (test code = 4544-3) 21.8 % 38.4-49.3 L MCH (test code = 785-6) 28.9 pg 26.1-32.7 MCV (test code = 787-2) 86.2 fL 81.7-95.6 MCHC (test code = 786-4) 33.5 g/dL 31.2-35.0 PLT (test code = 777-3) See_Comment [Automated message] The system which generated this result transmitted reference range: 150 - 328 10*3/?L. The reference range was not used to interpret this result as normal/abnormal. MPV (test code = 32935-0) 9.6 fL 9.8-13.0 L RDW-CV (test code = 788-0) 15.0 % 12.1-15.4 RDW-SD (test code = 84979-8) 47.2 fL 38.5-51.6 NRBC x10^3 (test code = 9557609597) See_Comment [Automated messa ge] The system which generated this result transmitted reference range: 10*3/?L. The reference range was not used to interpret this result as normal/abnormal. NRBC/100 WBC (test code = 8882830479) See_Comment [Automated messa ge] The system which generated this result transmitted reference range: 0.0 - 10.0 /100 WBCs. The reference range was not used to interpret this result as normal/abnormal. IPF % (test code = 6287437305) Lab Interpretation (test code = 68932-1) Abnormal [facility] WITHOUT [id number] 11:41:44* Test Item Value Reference Range Interpretation Comme nts WBC (test code = 6690-2) See_Comment [Automated message] The system which generated this result transmitted reference range: 4.20 - 10.70 10*3/?L. The reference range was not used to interpret this result as normal/abnormal. RBC (test code = 789-8) See_Comment L [Automated message] The system which generated this result transmitted reference range: 4.26 - 5.52 10*6/?L. The reference range was not used to interpret this result as normal/abnormal. HGB (test code = 718-7) 7.3 g/dL 12.2-16.4 L HCT (test code = 4544-3) 21.8 % 38.4-49.3 L MCH (test code = 785-6) 28.9 pg 26.1-32.7 MCV (test code = 787-2) 86.2 fL 81.7-95.6 MCHC (test code = 786-4) 33.5 g/dL 31.2-35.0 PLT (test code = 777-3) See_Comment [Automated message] The system which generated this result transmitted reference range: 150 - 328 10*3/?L. The reference range was not used to interpret this result as normal/abnormal. MPV (test code = 79904-4) 9.6 fL 9.8-13.0 L RDW-CV (test code = 788-0) 15.0 % 12.1-15.4 RDW-SD (test code = 78710-5) 47.2 fL 38.5-51.6 NRBC x10^3 (test code = 4135746851) See_Comment [Automated [place]] The system which generated this result transmitted reference range: 10*3/?L. The reference range was not used to interpret this result as normal/abnormal. NRBC/100 WBC (test code = 0840889496) See_Comment [Automated [place]] The system which generated this result transmitted reference range: 0.0 - 10.0 /100 WBCs. The reference range was not used to interpret this result as normal/abnormal. IPF % (test code = 1663303132) Lab Interpretation (test code = 36535-1) [facility]:10* Test Item Value Reference Range Interpretation Comme nts Height (test code = 1650629697) in Weight (test code = 8453016939) lbs Systolic BP (test code = 0244023553) mmHg Diastolic BP (test code = 2020983294) mmHg Heart Rate (test code = 1547824685) bpm Radiology Study observation (narrative) (test code = 77626-9) PIPO (test code = PIPO) ?Left?Ventricle: Left [...] mL of Lumason ultrasound enhancing agent used. [facility] 22:32:10* Test Item Value Reference Range Interpretation Comme nts Height (test code = 4932321391) in Weight (test code = 2335057867) lbs Systolic BP (test code = 3727450912) mmHg Diastolic BP (test code = 1506019246) mmHg Heart Rate (test code = 2306854575) bpm Radiology Study observation (narrative) (test code = 57195-4) PIPO (test code = PIPO) ?Left?Ventricle: Left [...] mL of Lumason ultrasound enhancing agent used. [facility] [id number] 22:15:46* Test Item Value Reference Range Interpretation Comme nts WBC (test code = 6690-2) See_Comment [Automated message] The system which generated this result transmitted reference range: 4.20 - 10.70 10*3/?L. The reference range was not used to interpret this result as normal/abnormal. RBC (test code = 789-8) See_Comment L [Automated message] The system which generated this result transmitted reference range: 4.26 - 5.52 10*6/?L. The reference range was not used to interpret this result as normal/abnormal. HGB (test code = 718-7) 7.9 g/dL 12.2-16.4 L HCT (test code = 4544-3) 23.9 % 38.4-49.3 L MCH (test code = 785-6) 28.6 pg 26.1-32.7 MCV (test code = 787-2) 86.6 fL 81.7-95.6 MCHC (test code = 786-4) 33.1 g/dL 31.2-35.0 PLT (test code = 777-3) See_Comment [Automated message] The system which generated this result transmitted reference range: 150 - 328 10*3/?L. The reference range was not used to interpret this result as normal/abnormal. MPV (test code = 95160-1) 9.7 fL 9.8-13.0 L RDW-CV (test code = 788-0) 15.2 % 12.1-15.4 RDW-SD (test code = 36148-5) 48.1 fL 38.5-51.6 NRBC x10^3 (test code = 0455358426) See_Comment [Automated messa ge] The system which generated this result transmitted reference range: 10*3/?L. The reference range was not used to interpret this result as normal/abnormal. NRBC/100 WBC (test code = 9703907933) See_Comment [Automated messa ge] The system which generated this result transmitted reference range: 0.0 - 10.0 /100 WBCs. The reference range was not used to interpret this result as normal/abnormal. IPF % (test code = 1030390757) Lab Interpretation (test code = 87318-3) Abnormal [facility] WITHOUT [id number] 22:15:46* Test Item Value Reference Range Interpretation Comme nts WBC (test code = 6690-2) See_Comment [Automated message] The system which generated this result transmitted reference range: 4.20 - 10.70 10*3/?L. The reference range was not used to interpret this result as normal/abnormal. RBC (test code = 789-8) See_Comment L [Automated message] The system which generated this result transmitted reference range: 4.26 - 5.52 10*6/?L. The reference range was not used to interpret this result as normal/abnormal. HGB (test code = 718-7) 7.9 g/dL 12.2-16.4 L HCT (test code = 4544-3) 23.9 % 38.4-49.3 L MCH (test code = 785-6) 28.6 pg 26.1-32.7 MCV (test code = 787-2) 86.6 fL 81.7-95.6 MCHC (test code = 786-4) 33.1 g/dL 31.2-35.0 PLT (test code = 777-3) See_Comment [Automated message] The system which generated this result transmitted reference range: 150 - 328 10*3/?L. The reference range was not used to interpret this result as normal/abnormal. MPV (test code = 76849-9) 9.7 fL 9.8-13.0 L RDW-CV (test code = 788-0) 15.2 % 12.1-15.4 RDW-SD (test code = 53090-8) 48.1 fL 38.5-51.6 NRBC x10^3 (test code = 7494667112) See_Comment [Automated messa ge] The system which generated this result transmitted reference range: 10*3/?L. The reference range was not used to interpret this result as normal/abnormal. NRBC/100 WBC (test code = 8258087940) See_Comment [Automated messa ge] The system which generated this result transmitted reference range: 0.0 - 10.0 /100 WBCs. The reference range was not used to interpret this result as normal/abnormal. IPF % (test code = 0773276829) Lab Interpretation (test code = 19238-1) Abnormal [facility] GLUCOSE (AUTOMATED)2022-05-15 22:09:19* Test Item Value Reference Range Interpretation Comme nts POCT GLU (test code = 2825528974) 208 mg/dL 70-110 H Lab Interpretation (test cod e = 21281-4) Abnormal [facility] GLUCOSE (AUTOMATED)2022-05-15 22:09:19* Test Item Value Reference Range Interpretation Comme nts POCT GLU (test code = 1846938186) 208 mg/dL 70-110 H Lab Interpretation (test cod e = 18648-8) Abnormal [facility] GLUCOSE (AUTOMATED)2022-05-15 17:51:24* Test Item Value Reference Range Interpretation Comme nts POCT GLU (test code = 4868866545) 227 mg/dL 70-110 H Lab Interpretation (test cod e = 94863-4) Abnormal [facility] GLUCOSE (AUTOMATED)2022-05-15 17:51:24* Test Item Value Reference Range Interpretation Comme nts POCT GLU (test code = 2158912241) 227 mg/dL 70-110 H Lab Interpretation (test cod e = 78813-1) Abnormal [facility] Packed RBC (in units), 1 Units 2022-05-15 14:38:44* Test Item Value Reference Range Interpretation Comme nts Cross Match Result (test code = 4409) Compatible ISBT Blood Type Code (test code = 953436) Unit Blood Type (test code = 4410) O Pos Unit Number (test code = 4411) [id number] Blood Expiration Date & Time (test code = 647132) Status Information (test code = 4412) Issued Product Identification (test code = 4413) Red Blood Cells Product Code (test code = 4414) [id number] Performed at [facility] B Laboratory Services [facility] Blood [address] [place] [address]Koqz Free: [phone] No. [id number] [facility] Packed RBC (in units), 1 Units 2022-05-15 14:38:44* Test Item Value Reference Range Interpretation Comme nts Cross Match Result (test code = 4409) Compatible ISBT Blood Type Code (test code = 629386) Unit Blood Type (test code = 4410) O Pos Unit Number (test code = 4411) [id number] Blood Expiration Date & Time (test code = 967582) Status Information (test code = 4412) Issued Product Identification (test code = 4413) Red Blood Cells Product Code (test code = 4414) [id number] Performed at [facility] Laboratory Services [facility] Blood [address] [address]Skrv Free: [phone] No. [id number] [facility] GLUCOSE (AUTOMATED)2022-05-15 13:49:03* Test Item Value Reference Range Interpretation Comme [facility] POCT GLU (test code = 7498819902) 236 mg/dL 70-110 H Lab Interpretation (test cod e = 80336-3) Abnormal [facility] GLUCOSE (AUTOMATED)2022-05-15 13:49:03* Test Item Value Reference Range Interpretation Comme [facility] POCT GLU (test code = 3378039590) 236 mg/dL 70-110 H Lab Interpretation (test cod e = 71179-0) Abnormal [facility] METABOLIC PANEL (NA, K, CL, CO2, GLUCOSE, BUN, CREATININE, CA)2022-05-15 12:06:27* Test Item Value Reference Range Interpretation Comme nts NA (test code = 2296911550) 133 mmol/L 135-145 L K (test code = 8428217467) 4.1 mmol/L 3.5-5.0 CL (test code = 0177242137) 102 mmol/L 98-108 CO2 TOTAL (test code = 6727545321) 25 mmol/L 23-31 AGAP (test code = 2686788469) 2-16 BUN (test code = 7824502220) 46 mg/dL 7-23 H GLUCOSE (test code = 8096077492) 171 mg/dL 70-110 H CREATININE (test code = 4605313926) 1.02 mg/dL 0.60-1.25 CALCIUM (test code = 7590931950) 7.9 mg/dL 8.6-10.6 L eGFR (test code = 0324492397) mL/min/1.73m2 PIPO (test code = PIPO) Association of [...] or abnormalities in imaging tests). Lab Interpretation (test code = 62440-8) [facility]:06[facility]* Test Item Value Reference Range Interpretation Comme nts MAGNESIUM (test code = 0073514519) 1.7 mg/dL 1.7-2.4 Lab Interpretation (test cod e = 31993-5) [facility] (NA, K, CL, CO2, GLUCOSE, BUN, CREATININE, CA)2022-05-15 12:06:27* Test Item Value Reference Range Interpretation Comme nts NA (test code = 3425012927) 133 mmol/L 135-145 L K (test code = 8746307697) 4.1 mmol/L 3.5-5.0 CL (test code = 2751912049) 102 mmol/L 98-108 CO2 TOTAL (test code = 6277888159) 25 mmol/L 23-31 AGAP (test code = 4087617493) 2-16 BUN (test code = 4412947202) 46 mg/dL 7-23 H GLUCOSE (test code = 4681148888) 171 mg/dL 70-110 H CREATININE (test code = 5641403903) 1.02 mg/dL 0.60-1.25 CALCIUM (test code = 5021270777) 7.9 mg/dL 8.6-10.6 L eGFR (test code = 3486649659) mL/min/1.73m2 PIPO (test code = PIPO) Association of [...] or abnormalities in imaging tests). Lab Interpretation (test code = 29501-8) [facility] 12:06:27* Test Item Value Reference Range Interpretation Comme nts MAGNESIUM (test code = 4625621625) 1.7 mg/dL 1.7-2.4 Lab Interpretation (test cod e = 03925-8) Normal [facility] WITHOUT [id number] 11:24:49* Test Item Value Reference Range Interpretation Comme nts WBC (test code = 6690-2) See_Comment [Automated message] The system which generated this result transmitted reference range: 4.20 - 10.70 10*3/?L. The reference range was not used to interpret this result as normal/abnormal. RBC (test code = 789-8) See_Comment L [Automated message] The system which generated this result transmitted reference range: 4.26 - 5.52 10*6/?L. The reference range was not used to interpret this result as normal/abnormal. HGB (test code = 718-7) 7.1 g/dL 12.2-16.4 L HCT (test code = 4544-3) 21.5 % 38.4-49.3 L MCH (test code = 785-6) 29.1 pg 26.1-32.7 MCV (test code = 787-2) 88.1 fL 81.7-95.6 MCHC (test code = 786-4) 33.0 g/dL 31.2-35.0 PLT (test code = 777-3) See_Comment [Automated message] The system which generated this result transmitted reference range: 150 - 328 10*3/?L. The reference range was not used to interpret this result as normal/abnormal. MPV (test code = 40964-9) 10.0 fL 9.8-13.0 RDW-CV (test code = 788-0) 14.4 % 12.1-15.4 RDW-SD (test code = 47658-9) 46.3 fL 38.5-51.6 NRBC x10^3 (test code = 8376028240) See_Comment [Automated messa ge] The system which generated this result transmitted reference range: 10*3/?L. The reference range was not used to interpret this result as normal/abnormal. NRBC/100 WBC (test code = 3175502895) See_Comment [Automated messa ge] The system which generated this result transmitted reference range: 0.0 - 10.0 /100 WBCs. The reference range was not used to interpret this result as normal/abnormal. IPF % (test code = 9306393361) Lab Interpretation (test code = 08370-1) Abnormal [facility] WITHOUT [id number] 11:24:49* Test Item Value Reference Range Interpretation Comme nts WBC (test code = 6690-2) See_Comment [Automated message] The system which generated this result transmitted reference range: 4.20 - 10.70 10*3/?L. The reference range was not used to interpret this result as normal/abnormal. RBC (test code = 789-8) See_Comment L [Automated message] The system which generated this result transmitted reference range: 4.26 - 5.52 10*6/?L. The reference range was not used to interpret this result as normal/abnormal. HGB (test code = 718-7) 7.1 g/dL 12.2-16.4 L HCT (test code = 4544-3) 21.5 % 38.4-49.3 L MCH (test code = 785-6) 29.1 pg 26.1-32.7 MCV (test code = 787-2) 88.1 fL 81.7-95.6 MCHC (test code = 786-4) 33.0 g/dL 31.2-35.0 PLT (test code = 777-3) See_Comment [Automated message] The system which generated this result transmitted reference range: 150 - 328 10*3/?L. The reference range was not used to interpret this result as normal/abnormal. MPV (test code = 71266-8) 10.0 fL 9.8-13.0 RDW-CV (test code = 788-0) 14.4 % 12.1-15.4 RDW-SD (test code = 53117-2) 46.3 fL 38.5-51.6 NRBC x10^3 (test code = 8069207337) See_Comment [Automated messa ge] The system which generated this result transmitted reference range: 10*3/?L. The reference range was not used to interpret this result as normal/abnormal. NRBC/100 WBC (test code = 9755364233) See_Comment [Automated messa ge] The system which generated this result transmitted reference range: 0.0 - 10.0 /100 WBCs. The reference range was not used to interpret this result as normal/abnormal. IPF % (test code = 8249583206) Lab Interpretation (test code = 19457-9) [facility] (Total Cholesterol, Triglycerides, HDL) - [id number] 04:46:50* Test Item Value Reference Range Interpretation Comme nts CHOL (test code = 9074851605) 160 mg/dL 120-200 HDL (test code = 3083478992) 33 mg/dL See_Comment L [Automated messa ge] The system which generated this result transmitted reference range: >=40. The reference range was not used to interpret this result as normal/abnormal. HDLC RATIO (test code = 7831357110) See_Comment [Automated messa ge] The system which generated this result transmitted reference range: <=5.0. The reference range was not used to interpret this result as normal/abnormal. TRIG (test code = 7119216459) 215 mg/dL 30-170 H LDL CHOL (test code = 85009-0) 84 mg/dL See_Comment [Automated messa ge] The system which generated this result transmitted reference range: <=160. The reference range was not used to interpret this result as normal/abnormal. VLDL (test code = 4960603407) 43 mg/dL 5-60 Lab Interpretation (test code = 54165-3) [facility]normal [facility] (Total Cholesterol, Triglycerides, HDL) - [id number] 04:46:50* Test Item Value Reference Range Interpretation Comme nts CHOL (test code = 6003799205) 160 mg/dL 120-200 HDL (test code = 0081289740) 33 mg/dL See_Comment L [Automated messa ge] The system which generated this result transmitted reference range: >=40. The reference range was not used to interpret this result as normal/abnormal. HDLC RATIO (test code = 2784603686) See_Comment [Automated messa ge] The system which generated this result transmitted reference range: <=5.0. The reference range was not used to interpret this result as normal/abnormal. TRIG (test code = 3186382201) 215 mg/dL 30-170 H LDL CHOL (test code = 56133-4) 84 mg/dL See_Comment [Automated messa ge] The system which generated this result transmitted reference range: <=160. The reference range was not used to interpret this result as normal/abnormal. VLDL (test code = 4283952591) 43 mg/dL 5-60 Lab Interpretation (test code = 93083-9) Abnormal [facility] WITHOUT [id number] 04:40:50* Test Item Value Reference Range Interpretation Comme nts WBC (test code = 6690-2) See_Comment [Automated message] The system which generated this result transmitted reference range: 4.20 - 10.70 10*3/?L. The reference range was not used to interpret this result as normal/abnormal. RBC (test code = 789-8) See_Comment L [Automated message] The system which generated this result transmitted reference range: 4.26 - 5.52 10*6/?L. The reference range was not used to interpret this result as normal/abnormal. HGB (test code = 718-7) 7.6 g/dL 12.2-16.4 L HCT (test code = 4544-3) 22.9 % 38.4-49.3 L MCH (test code = 785-6) 29.6 pg 26.1-32.7 MCV (test code = 787-2) 89.1 fL 81.7-95.6 MCHC (test code = 786-4) 33.2 g/dL 31.2-35.0 PLT (test code = 777-3) See_Comment [Automated message] The system which generated this result transmitted reference range: 150 - 328 10*3/?L. The reference range was not used to interpret this result as normal/abnormal. MPV (test code = 60056-4) 9.9 fL 9.8-13.0 RDW-CV (test code = 788-0) 14.5 % 12.1-15.4 RDW-SD (test code = 80669-4) 47.1 fL 38.5-51.6 NRBC x10^3 (test code = 5186326732) See_Comment [Automated messa ge] The system which generated this result transmitted reference range: 10*3/?L. The reference range was not used to interpret this result as normal/abnormal. NRBC/100 WBC (test code = 5733351300) See_Comment [Automated messa ge] The system which generated this result transmitted reference range: 0.0 - 10.0 /100 WBCs. The reference range was not used to interpret this result as normal/abnormal. IPF % (test code = 5602385545) Lab Interpretation (test code = 37587-4) Abnormal [facility] WITHOUT [id number] 04:40:50* Test Item Value Reference Range Interpretation Comme nts WBC (test code = 6690-2) See_Comment [Automated message] The system which generated this result transmitted reference range: 4.20 - 10.70 10*3/?L. The reference range was not used to interpret this result as normal/abnormal. RBC (test code = 789-8) See_Comment L [Automated message] The system which generated this result transmitted reference range: 4.26 - 5.52 10*6/?L. The reference range was not used to interpret this result as normal/abnormal. HGB (test code = 718-7) 7.6 g/dL 12.2-16.4 L HCT (test code = 4544-3) 22.9 % 38.4-49.3 L MCH (test code = 785-6) 29.6 pg 26.1-32.7 MCV (test code = 787-2) 89.1 fL 81.7-95.6 MCHC (test code = 786-4) 33.2 g/dL 31.2-35.0 PLT (test code = 777-3) See_Comment [Automated message] The system which generated this result transmitted reference range: 150 - 328 10*3/?L. The reference range was not used to interpret this result as normal/abnormal. MPV (test code = 04859-5) 9.9 fL 9.8-13.0 RDW-CV (test code = 788-0) 14.5 % 12.1-15.4 RDW-SD (test code = 80237-2) 47.1 fL 38.5-51.6 NRBC x10^3 (test code = 2734233305) See_Comment [Automated messa ge] The system which generated this result transmitted reference range: 10*3/?L. The reference range was not used to interpret this result as normal/abnormal. NRBC/100 WBC (test code = 9349457764) See_Comment [Automated messa ge] The system which generated this result transmitted reference range: 0.0 - 10.0 /100 WBCs. The reference range was not used to interpret this result as normal/abnormal. IPF % (test code = 4428057720) Lab Interpretation (test code = 41294-4) Abnormal [facility] WITHOUT [id number] 22:20:51* Test Item Value Reference Range Interpretation Comme nts WBC (test code = 6690-2) See_Comment [Automated message] The system which generated this result transmitted reference range: 4.20 - 10.70 10*3/?L. The reference range was not used to interpret this result as normal/abnormal. RBC (test code = 789-8) See_Comment L [Automated message] The system which generated this result transmitted reference range: 4.26 - 5.52 10*6/?L. The reference range was not used to interpret this result as normal/abnormal. HGB (test code = 718-7) 7.7 g/dL 12.2-16.4 L HCT (test code = 4544-3) 23.8 % 38.4-49.3 L MCH (test code = 785-6) 28.9 pg 26.1-32.7 MCV (test code = 787-2) 89.5 fL 81.7-95.6 MCHC (test code = 786-4) 32.4 g/dL 31.2-35.0 PLT (test code = 777-3) See_Comment [Automated message] The system which generated this result transmitted reference range: 150 - 328 10*3/?L. The reference range was not used to interpret this result as normal/abnormal. MPV (test code = 93443-6) 9.9 fL 9.8-13.0 RDW-CV (test code = 788-0) 14.5 % 12.1-15.4 RDW-SD (test code = 19607-9) 47.2 fL 38.5-51.6 NRBC x10^3 (test code = 1182935766) See_Comment [Automated messa ge] The system which generated this result transmitted reference range: 10*3/?L. The reference range was not used to interpret this result as normal/abnormal. NRBC/100 WBC (test code = 8466322474) See_Comment [Automated [employer]] The system which generated this result transmitted reference range: 0.0 - 10.0 /100 WBCs. The reference range was not used to interpret this result as normal/abnormal. IPF % (test code = 0771514288) Lab Interpretation (test code = 04517-3) Abnormal [facility] WITHOUT [id number] 22:20:51* Test Item Value Reference Range Interpretation Comme nts WBC (test code = 6690-2) See_Comment [Automated message] The system which generated this result transmitted reference range: 4.20 - 10.70 10*3/?L. The reference range was not used to interpret this result as normal/abnormal. RBC (test code = 789-8) See_Comment L [Automated message] The system which generated this result transmitted reference range: 4.26 - 5.52 10*6/?L. The reference range was not used to interpret this result as normal/abnormal. HGB (test code = 718-7) 7.7 g/dL 12.2-16.4 L HCT (test code = 4544-3) 23.8 % 38.4-49.3 L MCH (test code = 785-6) 28.9 pg 26.1-32.7 MCV (test code = 787-2) 89.5 fL 81.7-95.6 MCHC (test code = 786-4) 32.4 g/dL 31.2-35.0 PLT (test code = 777-3) See_Comment [Automated message] The system which generated this result transmitted reference range: 150 - 328 10*3/?L. The reference range was not used to interpret this result as normal/abnormal. MPV (test code = 65471-8) 9.9 fL 9.8-13.0 RDW-CV (test code = 788-0) 14.5 % 12.1-15.4 RDW-SD (test code = 39733-0) 47.2 fL 38.5-51.6 NRBC x10^3 (test code = 1563684324) See_Comment [Automated messa ge] The system which generated this result transmitted reference range: 10*3/?L. The reference range was not used to interpret this result as normal/abnormal. NRBC/100 WBC (test code = 2536424047) See_Comment [Automated messa ge] The system which generated this result transmitted reference range: 0.0 - 10.0 /100 WBCs. The reference range was not used to interpret this result as normal/abnormal. IPF % (test code = 8013078723) Lab Interpretation (test code = 36101-6) Abnormal [facility] Confirmation (Lab Only)2022-05-14 21:04:17* Test Item Value Reference Range Interpretation Comme nts ABO & RH (test code = 20) O Positive Performed at [facility] Laboratory [address] Free: [phone] No. [id number] [facility] Confirmation (Lab Only)2022-05-14 21:04:17* Test Item Value Reference Range Interpretation Comme nts ABO & RH (test code = 20) O Positive Performed at [address] Free: [phone] No. [id number] [facility] and Screen - ONCE [id number] 19:35:37 * Test Item Value Reference Range Interpretation Comme nts ABO & RH (test code = 20) O POSITIVE Performed at [address] Free: [phone] No. [id number] IAT (test code = 1185) Negative Performed at [address] Free: [phone] No. [id number] [facility] and Screen - ONCE [id number] 19:35:37 * Test Item Value Reference Range Interpretation Comme nts ABO & RH (test code = 20) O POSITIVE Performed at [facility] [address] [address]Tl[address] Free: [phone] No. [id number] IAT (test code = 1185) Negative Performed at [facility] Laboratory Services [facility] Blood [address] [address]bmn Free: [phone] No. [id number] [facility] GLUCOSE (AUTOMATED)2022-05-14 19:01:40* Test Item Value Reference Range Interpretation Comme nts POCT GLU (test code = 7996413676) 199 mg/dL 70-110 H Lab Interpretation (test cod e = 40809-6) Abnormal [facility] GLUCOSE (AUTOMATED)2022-05-14 19:01:40* Test Item Value Reference Range Interpretation Comme nts POCT GLU (test code = 9247634685) 199 mg/dL 70-110 H Lab Interpretation (test cod e = 98695-2) Abnormal [facility] GLUCOSE (AUTOMATED)2022-05-14 15:51:56* Test Item Value Reference Range Interpretation Comme nts POCT GLU (test code = 6183377159) 243 mg/dL 70-110 H Lab Interpretation (test cod e = 15421-9) Abnormal [facility] GLUCOSE (AUTOMATED)2022-05-14 15:51:56* Test Item Value Reference Range Interpretation Comme nts POCT GLU (test code = 8768434692) 243 mg/dL 70-110 H Lab Interpretation (test cod e = 92597-2) Abnormal [facility]"
[2023-09-28] MEDS ORDERED: NYSTATIN 100MU/GM CREAM 15GM TOP ONE (15:43)
[2023-09-28] MEDS ORDERED: MORPHINE 2 MG/ML SYR ONE (15:44)
[2023-09-28 15:50] LABS: Absolute Lymphocytes (CBC) 0.5 K/uL (0.7-4.9); Absolute Monocytes 1.4 K/uL (0.1-1.3); Absolute Neutrophil 16.2 K/uL (1.8-8.0); Basophils % 0.2 % (0-1.3); Eosinophils % 0.1 % (0-4.4); Hematocrit 31.7 % (39.6-49.0); Hemoglobin 10.1 g/dL (13.6-17.9); Lymphocytes % 2.6 % (15.3-44.8); MCH 24.8 pg (27.0-35.0); MCHC 31.8 g/dL (32.0-36.0); MPV 7.7 fL (7.6-11.3); Monocytes % 7.9 % (3.3-12.3); Neutrophils % 89.2 % (41.7-73.7); Platelets 309 thou/uL (152-406); RBC Red Blood Cell Count 4.06 M/uL (4.33-5.43); Red Cell Distribution Width 20.1 % (12.1-15.2)
[2023-09-28 16:06] LABS: Albumin 3.2 g/dL (3.4-5.0); Albumin/Globulin Ratio 0.6 (1.1-1.8); Anion Gap 8.8 mEq/L (5.0-15.0); Bilirubin Total 0.5 mg/dL (0.2-1.0); Globulin 5.2 g/dL (2.3-3.5); Potassium 3.8 mEq/L (3.5-5.1); Protein, Total 8.4 g/dL (6.4-8.2)
[2023-09-28 16:59] LABS: Differential Total Cells Count 100
[2023-09-28 17:00] LABS: Anisocytosis 1+; Band Neutrophils 2 % (0-1); Blood Morphology Comment NOTED (NOT SEEN); Eosinophils 1 % (0-3); Lymphocytes 3 % (15-42); Monocytes 8 % (0-10); Platelet Estimate ADEQ; Segmented Neutrophils 86 % (40-80)
--- NOTE | 2023-09-28 17:35 | RAD REPORT ---
EXAM DESCRIPTION: RAD - Hip Left 2 View - 09/28/2023 4:37 pm CLINICAL HISTORY: PAIN COMPARISON: No comparisons TECHNIQUE: Left hip, AP and frogleg views of the left hip. FINDINGS: There is no fracture or dislocation. No acute or destructive bony process seen. Vascular c alcifications and left femoral stent in place. IMPRESSION: No acute findings of the left hip.
[2023-09-28 18:40] LABS: PT Prothrombin Time 12.8 SECONDS (9.5-12.5); PTT, Activated Partial Thromb 38.6 SECONDS (24.3-36.9); Protime INR 1.17
--- NOTE | 2023-09-28 18:47 | EDPHYS ---
Physician Documentation [facility] Name: Thom Wright Age: 62 yrs Sex: Male : 1960 Arrival Date: 09/28/2023 Time: 14:17 Bed 20 Private MD: ED Physician Royce Forrester HPI: 09/27 14:55 This 62 yrs old Male presents to ER via EMS with complaints of hip pain, yeast rt infection. 14:55 Patient presents to the ED with left hip pain. Patient states that he has chronic left rt hip pain, however, got worse after mechanical fall yesterday. States he was able to bear weight following that. He also reports that he has reported yeast infection, denies previous history of that. Denies other acute complaints at this time, symptoms are moderate in severity, no other aggravating or alleviating factors.. Historical: - Allergies: 14: NKDA; ko1 - PMHx: 14: COPD; CVA; diabetes mellitus; Hypertensive disorder; [place]; Pancreatitis; peripheral ko1 vascular disease; stent; stroke ( deficit left side paralysis); - PSHx: 14: Carotid endarterectomy; Femoral bypass; ko1 - Immunization history:: Adult Immunizations unknown. - Social history:: Smoking status: Patient reports the use of cigarette tobacco products, smokes one pack cigarettes per day. - Family history:: not pertinent. ROS: 14:55 Constitutional: Negative for fever, chills, and weight loss, Cardiovascular: Negative rt for chest pain, palpitations, and edema, Respiratory: Negative for shortness of breath, cough, wheezing, and pleuritic chest pain, Abdomen/GI: Negative for abdominal pain, nausea, vomiting, diarrhea, and constipation, Neuro: Negative for headache, weakness, numbness, tingling, and seizure, 14:55 : Positive for Yeast infection, negative for testicular pain, 14:55 MS/extremity: Positive for pain, Negative for decreased range of motion, Exam: 14:55 Constitutional: This is a well developed, well nourished patient who is awake, alert, rt and in no acute distress. Chest/axilla: Normal chest wall appearance and motion. Nontender with no deformity. No lesions are appreciated. Cardiovascular: Regular rate and rhythm with a normal S1 and S2. No gallops, murmurs, or rubs. Normal PMI, no JVD. No pulse deficits. Respiratory: Lungs have equal breath sounds bilaterally, clear to auscultation and percussion. No rales, rhonchi or wheezes noted. No increased work of breathing, no retractions or nasal flaring. Abdomen/GI: Soft, non-tender, with normal bowel sounds. No distension or tympany. No guarding or rebound. No evidence of tenderness throughout. MS/ Extremity: Pulses equal, no cyanosis. Neurovascular intact. Full, normal range of motion. Neuro: Awake and alert, GCS 15, oriented to person, place, time, and situation. Cranial nerves II-XII grossly intact. Motor strength 5/5 in all extremities. Sensory grossly intact. Cerebellar exam normal. Normal gait. 14:55 : Erythema to the intertriginous areas, consistent with candidiasis, 18:47 ECG was reviewed by the Attending Physician. rt Vital Signs: 14:25 BP 162 / 60; Pulse 98; Resp 19; Temp 97.9; Pulse Ox 99% ; ko1 15:39 BP 136 / 91; Pulse 108; Resp 21; Pulse Ox 98% on R/A; kd3 16:51 BP 163 / 86; Pulse 94; Resp 20; Pulse Ox 98% on R/A; kd3 17:00 BP 171 / 79; Pulse 102; Resp 23; Pulse Ox 98% ; kd3 18:00 BP 168 / 74; Pulse 109; Resp 23; Pulse Ox 97% on R/A; kd3 18:24 Temp 103.2(O); kd3 19:25 BP 127 / 68; Pulse 104; Resp 21; Pulse Ox 98% on R/A; kd3 20:02 BP 113 / 52; Pulse 96; Resp 21; Temp 99.8(O); Pulse Ox 98% on R/A; lg3 22:38 BP 118 / 73; Pulse 84; Resp 19 S; Temp 99; Pulse Ox 97% on R/A; lg3 MDM: 14:29 Patient medically screened. rt 18:46 Differential Diagnosis Fever, leukocytosis, infection, hip pain. Data reviewed: vital rt signs, nurses notes, lab test result(s), EKG, radiologic studies. Consideration of Admission/Observation Patient was admitted/placed on observation. Management of patient was discussed with the following: Hospitalist: Agrees to admit. I considered the following discharge prescriptions or medication management in the emergency department Medications were administered in the Emergency Department. See MAR. Independent interpretation of the following test(s) in the Emergency Department X-Ray: My interpretation is No fracture seen on interpretation of x-ray images. Care significantly affected by the following chronic conditions: Diabetes. Counseling: I had a detailed discussion with the patient and/or guardian regarding the historical points, exam findings, and any diagnostic results supporting the discharge/admit diagnosis, lab results, radiology results, the need for further work-up and treatment in the hospital. 18:47 ED course: Patient's initial presentation was not thought to be due to infectious rt etiology. Patient was afebrile initially, had no signs or source of infection other than apparent candidal infection. Patient returned with leukocytosis, antibiotics, blood cultures were drawn.. 09/27 14:37 Order name: CBC with Diff; Complete Time: 17:13 rt 09/27 14:37 Order name: CMP; Complete Time: 16:11 rt 09/27 14:37 Order name: UAM rt 09/27 17:00 Order name: Manual Differential; Complete Time: 17:13 EDWA 09/27 17:16 Order name: Blood Culture Adult (2) rt 09/27 17:16 Order name: Lactate w/ 2H reflex if indic.; Complete Time: 19:07 rt 09/27 17:16 Order name: Protime (+inr); Complete Time: 19:07 rt 09/27 17:16 Order name: Ptt, Activated; Complete Time: 19:07 rt 09/27 19:49 Order name: Urine Culture EDWA 09/27 20:30 Order name: Urine Drug Screen EDWA 09/27 21:33 Order name: CBC with Automated Diff EDMS 09/27 21:33 Order name: CBC with Automated Diff EDMS 09/27 21:33 Order name: Comprehensive Metabolic Panel EDWA 09/27 21:33 Order name: Comprehensive Metabolic Panel EDWA 09/27 21:33 Order name: Lipid Profile EDWA 09/27 21:33 Order name: Lipid Profile EDWA 09/27 21:33 Order name: Troponin High Sensitivity EDMS 09/27 21:33 Order name: Troponin High Sensitivity EDMS 09/27 21:33 Order name: Troponin High Sensitivity EDMS 09/27 21:33 Order name: Troponin High Sensitivity EDMS 09/27 16:11 Order name: Hip Left 2 View XRAY; Complete Time: 17:36 rt 09/27 18:39 Order name: Chest Single View XRAY rt 09/27 19:06 Order name: CT Traumagram (Head C Spine CAP wo con) [facility] 09/27 17:16 Order name: EKG; Complete Time: 17:17 rt 09/27 21:33 Order name: Physical Therapy Consult [facility] 09/27 17:16 Order name: Accucheck; Complete Time: 19:27 rt 09/27 17:16 Order name: Cardiac monitoring; Complete Time: 18:51 rt 09/27 17:16 Order name: EKG - Nurse/Tech; Complete Time: 18:51 rt 09/27 17:16 Order name: IV Saline Lock - Large Bore; Complete Time: 18:51 rt 09/27 17:16 Order name: Labs collected and sent; Complete Time: 18:51 rt 09/27 17:16 Order name: O2 Per Protocol; Complete Time: 18:51 rt 09/27 17:16 Order name: O2 Sat Monitoring; Complete Time: 18:51 rt 09/27 17:16 Order name: Vital Signs; Complete Time: 19:27 rt EC:47 Rate is 107 beats/min. Rhythm is regular, Sinus tachycardia with No ectopy. QRS [place] is rt Normal. [place] interval is normal. QRS interval is normal. QT interval is normal. No Q waves. No ST changes noted. Interpreted by me. Administered Medications: 15:50 Drug: morphine IVP or IV 2 mg IVP once over 4 mins Route: IVP; Infused Over: 4 mins; kd3 Site: right antecubital; 20:09 Follow up: Response: No adverse reaction lg3 15:50 Drug: nystatin Topical Cream 1 application Topical once Route: Topical; Site: affected kd3 area; 19:11 Drug: NS 0.9% IV 1000 ml IV at 1 bolus Per protocol; 1000 mL bolus Route: IV; Rate: 1 kd3 bolus; Site: right antecubital; 22:39 Follow up: IV Status: Completed infusion; IV Intake: 1000ml lg3 19:11 Drug: Rocephin - Rocephin (cefTRIAXone) IVPB 2 grams IVPB once over 30 mins; (mix in kd3 100 mL NS) Route: IVPB; Infused Over: 30 mins; Site: right antecubital; 20:09 Follow up: Response: No adverse reaction; IV Status: Completed infusion; IV Intake: lg3 100ml 19:11 Drug: Acetaminophen PO 1000 mg PO once Route: PO; kd3 20:09 Follow up: Response: No adverse reaction; Marked relief of symptoms; Temperature is lg3 decreased Disposition Summary: 09/28/23 18:46 Hospitalization Ordered Notes: Hospitalization Status: Inpatient Admission rt Provider: Mavis Paula rt Location: Telemetry/[facility] (Inpatient) rt Condition: Fair rt Problem: new rt Symptoms: are unchanged rt Bed/Room Type: Standard rt Room Assignment: 407(09/28/23 21:08) cg Diagnosis - Leukocytosis rt - Fever rt - Left hip pain rt Forms: - Medication Reconciliation Form rt - SBAR form rt - Leadership Thank You Letter rt Signatures: Dispatcher [employer] Andrew Aguiar MD MD cha Garcia, Cindy RN RN cg Yesenia Leon RN RN kd3 Brie Elizabeth RN RN koRoyce Marx MD MD rt Latanya Dee RN lg3 Corrections: (The following items were deleted from the chart) 21:08 18:46 rt cg
--- NOTE | 2023-09-28 18:47 | ER ---
Nurse's Notes [facility] Name: Thom Wright Age: 62 yrs Sex: Male : 1960 Arrival Date: 09/28/2023 Time: 14:17 Bed 20 Private MD: Diagnosis: Leukocytosis;Fever;Left hip pain Presentation: 09/27 14:25 Chief complaint: EMS states: fell late last night, c/o left hip pain and thinks he has ko1 a yeast infection. Coronavirus screen: At this time, the client does not indicate any symptoms associated with coronavirus-19. Ebola Screen: No symptoms or risks identified at this time. Initial Sepsis Screen: Does the patient meet any 2 criteria? No. Patient's initial sepsis screen is negative. Does the patient have a suspected source of infection? No. Patient's initial sepsis screen is negative. Risk Assessment: Do you want to hurt yourself or someone else? Patient reports no desire to harm self or others. Onset of symptoms was September 28, 2023. 14:25 Method Of Arrival: EMS: [facility] [employer] ko1 14:25 Acuity: SONIA 3 ko1 Triage Assessment: 14:26 General: Appears in no apparent distress. uncomfortable, unkempt, Behavior is calm, ko1 cooperative, appropriate for age. Pain: Complains of pain in left hip. Historical: - Allergies: 14:26 NKDA; ko1 - PMHx: 14:26 COPD; CVA; diabetes mellitus; Hypertensive disorder; [place]; Pancreatitis; peripheral ko1 vascular disease; stent; stroke ( deficit left side paralysis); - PSHx: 14:26 Carotid endarterectomy; Femoral bypass; ko1 - Immunization history:: Adult Immunizations unknown. - Social history:: Smoking status: Patient reports the use of cigarette tobacco products, smokes one pack cigarettes per day. - Family history:: not pertinent. Screenin:[address] [facility] ED Fall Risk Assessment (Adult) History of falling in the last 3 months, kd3 including since admission Yes- fall prone (multiple falls) (3 pts) Confusion or Disorientation No (0 pts) Intoxicated or Sedated No (0 pts) Impaired Gait Yes (1 pt) Mobility Assist Device Used Yes (1 pt) Altered Elimination No (0 pt) Score/Fall Risk Level 3 or more points = High Risk Oriented to surroundings, Maintained a safe environment, Educated pt \T\ family on fall prevention, incl call for assistance when getting out of bed, Assessed \T\ reinforced patient's understanding of fall precautions, Provided non-skid footwear, Hourly rounding (assess needs \T\ fall precautionary measures) done, Used ambulatory aids as needed (educated on \T\ assisted with). Abuse screen: Denies threats or abuse. Denies injuries from another. Nutritional screening: No deficits noted. Tuberculosis screening: No symptoms or risk factors identified. Assessment: 14:50 General: Appears in no apparent distress. Behavior is calm, cooperative. Pain: iw Complains of pain in left femoral area Pain radiates to left leg. Neuro: Level of Consciousness is awake, alert, obeys commands, Oriented to person, place, time, Moves all extremities. Cardiovascular: Patient's skin is warm and dry. Respiratory: Respiratory effort is even, unlabored, Respiratory pattern is regular, symmetrical. GI: Abdomen is non-distended. :. Derm: Skin is normal. Derm: Rash noted that is red, on left femoral area. Musculoskeletal: Range of motion: limited in left hip. 15:39 General: This RN obtained IV access in the right A/C, blood work collected and sent to 3 the lab. This RN attempted to collect a urine sample. PT refuses to attempt for sample collection and refuses straight cath despite being incontinent and being briefed. . 17:35 General: Appears in no apparent distress. Behavior is calm, cooperative. kd3 17:35 Neuro: Level of Consciousness is awake, obeys commands, lethargic, Oriented to person, kd3 place, time, situation. Cardiovascular: Patient's skin is warm and dry. Respiratory: Airway is patent Trachea midline Respiratory effort is even, unlabored, Respiratory pattern is regular, symmetrical. 18:15 General: Appears in no apparent distress. Behavior is calm, cooperative, drowsy. kd3 18:24 General: PT appears to be more lethargic than he had been. Pt feels hot to the touch. kd3 Pt incontinent of urine. Pt cleaned of incontinence, full bed change, pt in a gown. Pt temp is not 103.2 oral. Provider notified. . 19:21 General: Pt was straight cath for urine. Fresh IV access obtained in the right A/C kd3 using ultrasound guided technique. Pt is dry, blankets have been taken away from the patient for temp control. Pt administered Tylenol for the temperature. Dr. Paula has come to visit the patient and is awaiting UA results. Pt moved to room 20. . 20:02 General: Appears in no apparent distress. Behavior is calm, cooperative, drowsy. Pain: lg3 Complains of pain in left hip Pain radiates to left leg. Neuro: Celis Agitation-Sedation Scale (RASS): -1 Drowsy Level of Consciousness is awake, obeys commands, Oriented to person, place, time, situation. Cardiovascular: No deficits noted. Denies chest pain, shortness of breath, Capillary refill < 3 seconds Clubbing of nail beds is absent JVD is absent Patient's skin is warm and dry. Respiratory: Airway is patent Trachea midline Respiratory effort is even, unlabored, Respiratory pattern is regular, symmetrical, persistent cough noted. GI: No deficits noted. No signs and/or symptoms were reported involving the gastrointestinal system. Abdomen is round non-distended, obese. : No deficits noted. EENT: No deficits noted. No signs and/or symptoms were reported regarding the EENT system. Derm: No deficits noted. No signs and/or symptoms reported regarding the dermatologic system. Skin is intact, is healthy with good turgor, Skin is dry, Skin is normal, Skin temperature is warm Rash noted that is red, on pelvis. Vital Signs: 14:25 BP 162 / 60; Pulse 98; Resp 19; Temp 97.9; Pulse Ox 99% ; ko1 15:39 BP 136 / 91; Pulse 108; Resp 21; Pulse Ox 98% on R/A; kd3 16:51 BP 163 / 86; Pulse 94; Resp 20; Pulse Ox 98% on R/A; kd3 17:00 BP 171 / 79; Pulse 102; Resp 23; Pulse Ox 98% ; kd3 18:00 BP 168 / 74; Pulse 109; Resp 23; Pulse Ox 97% on R/A; kd3 18:24 Temp 103.2(O); kd3 19:25 BP 127 / 68; Pulse 104; Resp 21; Pulse Ox 98% on R/A; kd3 20:02 BP 113 / 52; Pulse 96; Resp 21; Temp 99.8(O); Pulse Ox 98% on R/A; lg3 22:38 BP 118 / 73; Pulse 84; Resp 19 S; Temp 99; Pulse Ox 97% on R/A; lg3 ED Course: 14:25 Patient arrived in ED. ko1 14:26 Triage completed. ko1 14:26 Arm band placed on right wrist. Patient placed in an exam room, on a stretcher, on ko1 monitor and storage bin tender, on pulse oximetry, Patient notified of wait time. 14:27 Royce Forrester MD is Attending Physician. rt 14:30 Kamini Dhaliwal, SALLIE is Primary Nurse. iw 15:14 Cleaned of incontinence. iw 15:36 CMP Sent. kd3 15:36 CBC with Diff Sent. kd3 15:36 Inserted saline lock: 20 gauge in right antecubital area, using aseptic technique. kd3 Blood collected. 15:36 Initial lab(s) drawn, by me, sent to lab. kd3 16:38 Hip Left 2 View XRAY In Process Unspecified. EDMS 16:52 Patient has correct armband on for positive identification. kd3 18:45 Mavis Paula MD is Hospitalizing Provider. rt 18:51 Blood Culture Adult (2) Sent. kd3 19:10 Chest Single View XRAY In Process Unspecified. EDMS 19:44 CT Traumagram (Head C Spine CAP wo con) In Process Unspecified. EDMS 22:37 No provider procedures requiring assistance completed. Patient admitted, IV remains in lg3 place. Administered Medications: 15:50 Drug: morphine IVP or IV 2 mg IVP once over 4 mins Route: IVP; Infused Over: 4 mins; kd3 Site: right antecubital; 20:09 Follow up: Response: No adverse reaction lg3 15:50 Drug: nystatin Topical Cream 1 application Topical once Route: Topical; Site: affected kd3 area; 19:11 Drug: NS 0.9% IV 1000 ml IV at 1 bolus Per protocol; 1000 mL bolus Route: IV; Rate: 1 kd3 bolus; Site: right antecubital; 22:39 Follow up: IV Status: Completed infusion; IV Intake: 1000ml lg3 19:11 Drug: Rocephin - Rocephin (cefTRIAXone) IVPB 2 grams IVPB once over 30 mins; (mix in kd3 100 mL NS) Route: IVPB; Infused Over: 30 mins; Site: right antecubital; 20:09 Follow up: Response: No adverse reaction; IV Status: Completed infusion; IV Intake: lg3 100ml 19:11 Drug: Acetaminophen PO 1000 mg PO once Route: PO; kd3 20:09 Follow up: Response: No adverse reaction; Marked relief of symptoms; Temperature is lg3 decreased Medication: 15:17 VIS not applicable for this client. iw Intake: 20:09 IV: 100ml; Total: 100ml. lg3 22:39 IV: 1000ml; Total: 1100ml. lg3 Outcome: 18:46 Decision to Hospitalize by Provider. rt 22:38 Admitted to Tele accompanied by tech, via stretcher, room 407, lg3 22:38 Condition: stable 22:38 Instructed on the need for admit, 22:40 Patient left the ED. lg3 Signatures: Dispatcher [employer] Kamini Siddiqi RN RN iw Latanya Dee RN RN lg3 Yesenia Leon RN RN kd3 Brie Elizabeth RN RN Royce Chavez MD MD rt
[2023-09-28] MEDS ORDERED: CEFTRIAXONE 2000 MG/VIAL ONE (18:52)
[2023-09-28] MEDS ORDERED: NA CHLORIDE 0.9% 1,000 ML ONE (18:52)
[2023-09-28] MEDS ORDERED: ACETAMINOPHEN 500 MG TAB ONE (18:52)
[2023-09-28 19:26] LABS: Specific Gravity 1.009 (1.005-1.030); Sqamous Epithelial <5 /HPF (None Seen); Urine Bacteria None Seen /HPF (<20); Urine Bilirubin NEGATIVE (Negative); Urine Blood 2+ (Negative); Urine Clarity Extremely Turbid (Clear); Urine Color Light-Yellow (Yellow); Urine Glucose 3+ (Negative); Urine Ketones NEGATIVE (Negative); Urine Micro Reflex YN NO BILL MICROSCOPIC; Urine Nitrite NEGATIVE (Negative); Urine Protein 1+ (Negative); Urine Urobilinogen Normal (Normal); Urine WBC >50 /HPF (<5); Urine pH 5.5 (5.0-7.0)
[2023-09-28 19:27] LABS: Urine Culture Reflex Order REFLEXED; Urine WBC Clump Few /HPF (None Seen); Urine Yeast (Budding) Occasional /HPF (None Seen)
--- NOTE | 2023-09-28 19:27 | RAD REPORT ---
[facility] CLINICAL HISTORY: FEVER COMPARISON: Chest Single View dated 05/29/2023; Chest Single View dated 03/22/2023; Chest Single View dated 05/13/2022; Chest Single View dated 04/24/2022 TECHNIQUE: Portable AP view of the chest. FINDINGS: Stable central interstitial prominence. No new focal consolidation. . No pneumothorax or effusion. The heart is again mildly prominent. Mediastinal contours are unchanged contours are unrema rkable. IMPRESSION: Central interstitial prominence which may reflect mild central congestion/CHF.
--- NOTE | 2023-09-28 20:39 | RAD REPORT ---
EXAM DESCRIPTION: CT - Head C Spine Cap Wo Con - 09/28/2023 7:42 pm CLINICAL HISTORY: Dizziness;Fever COMPARISON: Head Brain Wo Cont dated 08/31/2023 TECHNIQUE: Head and cervical spine CT images were obtained without IV contrast. Chest, abdomen, and pelvis CT images were obtained also without IV contrast. Multiplanar reformats were generated and rev iewed. All CT scans are performed using dose optimization technique as appropriate and may include automated exposure control or mA/KV adjustment according to patient size. FINDINGS: CT HEAD: No intracranial hemorrhage, mass effect, or edema. No evidence of acute territorial infarct. Focal ar eas of encephalomalacia in the right MCA/TRISTAN and MCA/ [employer]IST watershed, in the left frontal operculum, s table. No midline shift or abnormal fluid collection. The ventricles are normal in caliber and config uration for age. Basal cisterns are patent. Mastoid aircells and paranasal sinuses are clear. No acut e skull fracture. CT CERVICAL SPINE: No acute cervical spine fracture or subluxation. Vertebral body heights are well maintained. Facet cristo ints are normal in alignment. No hyperattenuating canal hematoma. Prevertebral and paraspinous soft t issues are unremarkable. CT CHEST: No pneumothorax, pulmonary contusion or pleural fluid collection. No mediastinal hematoma and the aor ta and pulmonary arteries are unremarkable. No chest will mass or abnormal axillary finding. No displ aced rib fracture or other significant bony finding. CT ABDOMEN/ PELVIS: No evidence of traumatic injury to solid abdominal viscera. Gallbladder and biliary tree are unremark able. No bowel injury. Fluid filling of nondistended lower abdominal small bowel loops, nonspecific. No free air, free fluid or abnormal fat stranding. No urinary bladder abnormality. No significant bony finding. IMPRESSION: No acute traumatic findings. Fluid filling of nondistended lower abdominal small bowel loops, may relate to an infectious or infla mmatory enteritis. Multifocal regions of encephalomalacia, suggesting sequelae of remote ischemia.
[2023-09-28] MEDS ORDERED: ACETAMINOPHEN 500 MG TAB PO PRN (21:28)
--- NOTE | 2023-09-28 21:28 | P.HP ---
Certification for Inpatient Patient admitted to: Inpatient With expected LOS: >2 Midnights Patient will require the following post-hospital care: None Practitioner: I am a practitioner with admitting privileges, knowledge of patient current condition, hospital course, and medical plan of care. Services: Services provided to patient in accordance with Admission requirements found in Title 42 Section 412.3 of the Code of Federal Regulations Patient History Date of Service: 09/28/23 Reason for admission: Status post fall with hip pain and fevers History of Present Illness: Patient is a 62-year-old gentleman who has a history of diabetes, dyslipidemia, peripheral arterial disease, comes into the emergency room after having a fall and apparently he hurt his hip. Patient moved to the [facility] from [place], [place] 2 years ago. He had come down to visit his sisters. His sister who lives with him states that he has not been doing that well in [place], [place] and he did not have a lot of family there so he came to live with them. He has a history of diabetes, but she states that he does not really take care of himself. He tends to eat what ever he feels like he drinks a lot of sodas with sugar. He was found unresponsive 3 to 4 months ago. He had to be intubated and he was placed on life support. The sitter says he was in a alonzo betic coma and he was seen by Dr. Holcomb. He was actually transferred to [facility] in [place] where he had a carotid endarterectomy. He also had an arteriogram of the lower extremities and he had stents placed in his lower extremities as well as a stent in his carotid artery. He has been really weak since then and he gets around with a cane. He continues to smoke and he continues to not really take care of his diabetes. He has a history of neuropathy and he is smoking about a pack a day. She states that gone back to his house where he lives with his sister and brothers. He had gone to his sister's room to find a cigarette. She was sleeping so she thinks that he did not find any cigarettes and he went back to his room. But according to her ex- who lives there as well patient had fallen right before he got to his room. He apparently lost his footing he landed on the ground. Patient grandson stays close by came up to the house and got the patient up into his bed. When the sister woke up and heard many hours later when it happened she went to check on him and he was having a lot of hip pain. I did bring him into the emergency room for further evaluation. In the ER patient had a CT trauma gram which only revealed enteritis. Patient had a fever of 102 in the ER and he was initially confused. He was started on some antibiotics for what appeared to be a urinary tract infection as his urine was very cloudy. His urine had a large amount of white blood cells but no bacteria was noted. Chest x-ray with no abnormalities. Enteritis was the only other worrisome finding but patient denied any diarrhea. Also has had a lot of confusion according to the [id number]. Patient does not remember much of anything that happened the day today. He takes Plavix and cilostazol. They believe that has affected his memory for what ever reason. He had a stroke recently in October 2021 and since then he has been doing very fine. Patient will be admitted to the hospital for inpatient hospitalization for further evaluation of his altered mental status. Home medication list according to the sister: NovoLog FlexPen 6 units before meals/Lantus 24 units at night Furosemide 40 mg twice daily Clopidogrel 75 mg daily Atorvastatin 80 mg at night Trazodone 50 mg at night Cilostazol 100 mg at AM &night Protonix 40 mg daily Hydrocodone 7.5 mg every 6 hours Januvia 100 mg daily Farxiga 10 mg daily Ramipril 1.25 mg daily Gabapentin 300 mg twice a day Allergies No Known Allergies Allergy (Verified 03/02/22 21:58) Home Medications: Atorvastatin Calcium 40 mg PO DAILY 01/22/22 Clopidogrel Bisulfate [Plavix*] 75 mg PO BEDTIME #30 tab 03/15/22 Pantoprazole [Protonix Tab*] 40 mg PO BIDAC #60 tab 03/15/22 Aspirin [Aspirin EC 81 MG] 81 mg PO DAILY 04/18/22 Insulin Aspart [Insulin Aspart Flexpen] 5 unit SQ TIDWM 04/18/22 Insulin Detemir [Levemir] 20 unit SQ BID 04/18/22 Albuterol Neb [Proventil 0.083% Neb Soln] 2.5 mg NEB [id number] PRN #60 amp 04/24/22 Hydrocodone 5/APAP 325 [[place] 5/325*] 1 tab PO Q6H PRN #30 tab 04/24/22 Ipratropium Neb [Atrovent*] 0.5 mg NEB [id number] PRN #60 amp 04/24/22 Losartan Potassium [Cozaar*] 50 mg PO BID #60 tablet 04/24/22 Magnesium Chloride [Slow-Mag*] 64 mg PO DAILY #30 tab 04/24/22 Metoprolol Tartrate [Lopressor*] 50 mg PO BID 6AM 6PM #60 tab 04/24/22 Potassium Chloride [Klor-Con M20] 20 meq PO DAILY #30 tab 04/24/22 Furosemide [Lasix*] 40 mg PO DAILY #30 tab 05/31/23 levoFLOXacin [Levaquin*] 500 mg PO DAILY #6 tab 05/31/23 predniSONE [Deltasone*] 10 mg PO DAILY #30 tab 05/31/23 - Past Medical/Surgical History Diabetic: Yes -: Diabetes mellitus type 2not insulin-dependent -: Hypertension -: Unknown additional history -: CVA x3 -: carotid surgery -: Peripheral arterial disease with stent placement Psychosocial/ Personal History: Patient lives at home with his , family - Family History Father Family History: Reviewed- Non-Contributory - Social History Smoking Status: Current every day smoker Alcohol use: No CD- Drugs: No Caffeine use: Yes Review of Systems is unable to be obtained Physical Examination - Vital Signs Pulse Ox (%): 98 (Vitals have been reviewed) - Physical Exam General: Alert, In no apparent distress, Confused HEENT: Atraumatic, PERRLA, Mucous membr. moist/pink, EOMI, Sclerae nonicteric Neck: Supple, 2+ carotid pulse no bruit, No LAD, Without JVD or thyroid abnormality Respiratory: Clear to auscultation bilaterally, Normal air movement Cardiovascular: Regular rate/rhythm, Normal S1 S2 Gastrointestinal: Normal bowel sounds, No tenderness Musculoskeletal: No tenderness Integumentary: No rashes Neurological: Normal gait, Normal speech, Normal strength at 5/5 x4 extr, Normal tone, Normal affect Lymphatics: No axilla or inguinal lymphadenopathy - Studies Laboratory Data (last 24 hrs) 09/28/23 09/28/23 09/28/23 18:14 15:36 15:36 WBC 18.20 H Hgb 10.1 L Hct 31.7 L Plt Count 309 PT 12.8 H INR 1.17 APTT 38.6 H Sodium 129 L Potassium 3.8 BUN 38 H Creatinine 1.52 H Glucose 147 H Total Bilirubin 0.5 AST 29 ALT 24 Alkaline Phosphatase 149 H Assessment & Plan - Problems (Diagnosis) (1) AMS (altered mental status) Current Visit: Yes Status: Acute (2) Delirium Current Visit: No Status: Acute (3) Fever Current Visit: Yes Status: Acute (4) PAD (peripheral artery disease) Current Visit: Yes Status: Acute (5) CVA (cerebral vascular accident) Current Visit: Yes Status: Acute (6) Status post fall Current Visit: Yes Status: Acute (7) CAD (coronary artery disease) Current Visit: No Status: Acute (8) Diabetes Current Visit: No Status: Acute Qualifiers: Diabetes mellitus type: type 2 (9) Severe hypertension Current Visit: No Status: Acute (10) UTI (urinary tract infection) Current Visit: Yes Status: Acute (11) Enteritis Current Visit: Yes Status: Acute - Plan Plan: 1. Patient with altered mental status; I feel like this may be related to a urinary tract infection although the urine analysis was very cloudy and for what ever reason did not detect any bacteria. However his urine did look purulent. Will continue with patient with IV antibiotics and IV fluids. CT of the head was negative. Monitoring electrolytes. Patient has a leukocytosis and will repeat labs in the morning. Patient also with acute renal sufficiency from dehydration; continue with hydration as mentioned. Will review patient's medications. I do not think his medications are causing a lot of his symptoms but we will review these and further evaluate. Patient did appear to be perking up after antibiotics and IV fluids. 2. History of atherosclerotic disease; patient with coronary artery disease/peripheral arterial disease/carotid artery disease/history of CVA; will continue with DAPT therapy and statin therapy. Strict blood pressure control. Monitor blood sugars and keep his sugars stable as well. Patient takes NPH and Levemir insulin. Will resume these as well. 3. Type 2 diabetes; patient is on 24 units of Levemir and 6 units of NovoLog before each meal; check hemoglobin A1c level as well. Strict blood sugar control. 4. History of hypertension; continue with antihypertensives 5. Acute kidney injury; patient with dehydration will hydrate and reassess renal function 6. Leukocytosis secondary to infectious etiology from UTI; continue with IV hydration and IV antibiotics and repeat labs in the morning 7. Hyponatremia; likely related to dehydration; will hydrate and reassess so dium level 8. Anemia of chronic disease; check B12 and iron levels 9. GI and DVT prophylaxis Discharge Plan: Home Plan to discharge in: 24 Hours - Advance Directives Does patient have a Living Will: No Does patient have a Durable POA for Healthcare: No - Code Status/Comfort Care Code Status Assessed: Yes Code Status: Full Code Critical Care: No Time Spent Managing PTS Care (In Minutes): 45
[2023-09-28] MEDS: NA CHLORIDE 0.9% 1,000 ML IV SCH (23:11)
[2023-09-29 02:05] VITALS: BMI 30.5
[2023-09-29 05:39] LABS: Absolute Lymphocytes (CBC) 0.7 K/uL (0.7-4.9); Absolute Monocytes 1.3 K/uL (0.1-1.3); Absolute Neutrophil 10.7 K/uL (1.8-8.0); Basophils % 0.3 % (0-1.3); Hematocrit 27.7 % (39.6-49.0); Lymphocytes % 5.2 % (15.3-44.8); MCH 25.4 pg (27.0-35.0); MCHC 32.3 g/dL (32.0-36.0); MCV 78.6 fL (80-100); Monocytes % 9.9 % (3.3-12.3); Neutrophils % 84.6 % (41.7-73.7); Platelets 242 thou/uL (152-406); RBC Red Blood Cell Count 3.52 M/uL (4.33-5.43); Red Cell Distribution Width 20.2 % (12.1-15.2)
[2023-09-29 05:59] LABS: Albumin 2.6 g/dL (3.4-5.0); Albumin/Globulin Ratio 0.6 (1.1-1.8); Anion Gap 10.3 mEq/L (5.0-15.0); Bilirubin Total 0.4 mg/dL (0.2-1.0); Globulin 4.6 g/dL (2.3-3.5); Potassium 3.3 mEq/L (3.5-5.1); Protein, Total 7.2 g/dL (6.4-8.2); Troponin High Sensitivity 20.1 pg/mL (<58.9)
[2023-09-29] MEDS: ATORVASTATIN 40 MG TAB PO SCH (08:02)
[2023-09-29] MEDS: ASPIRIN EC 81 MG TAB PO SCH (08:02)
--- NOTE | 2023-09-29 11:51 | EKG ---
Test Date: 2023-09-28 Test Time: 17:30:37 Physical Geographer: LEROY MEASUREMENT RESULTS: Intervals: Rate: 107 VA: 150 QRSD: 90 QT: 326 QTc: 435 [place]: P: 75 VA: 150 QRS: -2 T: 101 INTERPRETIVE STATEMENTS: Sinus tachycardia T wave abnormality, consider lateral ischemia Abnormal ECG Compared to ECG 05/29/2023 08:01:45 T-wave abnormality now present Possible ischemia now present Sinus rhythm no longer present Sinus arrhythmia no longer present ST (T wave) deviation no longer present Electronically Signed On 09-29-23 11:49:09 CDT by Jeffrey Suazo
[2023-09-29] MEDS: MORPHINE 2 MG/ML SYR IV PRN (11:54)
--- NOTE | 2023-09-29 14:28 | P.PN ---
Subjective Date of Service: 09/29/23 Chief Complaint: Status post fall with hip pain and fevers Patient is currently awake and alert and interactive meaningfully. He is complaining of leg pain. Noted patient has a history of peripheral neuropathy. Stable blood pressure. He is slightly tachycardic. Physical Examination - Vital Signs Temperature: 97.5 F Blood Pressure: 130/66 Pulse: 101 Respirations: 18 Pulse Ox (%): 93 - Physical Exam General: Alert, In no apparent distress, Oriented x3 HEENT: Mucous membr. moist/pink Neck: Supple, JVD not distended Respiratory: Clear to auscultation bilaterally, Normal air movement Cardiovascular: No edema, Regular rate/rhythm, Normal S1 S2 Gastrointestinal: Soft and benign, Non-distended, No tenderness Musculoskeletal: No swelling Neurological: Normal strength at 5/5 x4 extr - Studies Laboratory Data (last 24 hrs) 09/28/23 09/28/23 09/28/23 18:14 15:36 15:36 WBC 18.20 H Hgb 10.1 L Hct 31.7 L Plt Count 309 PT 12.8 H INR 1.17 APTT 38.6 H Sodium 129 L Potassium 3.8 BUN 38 H Creatinine 1.52 H Glucose 147 H Total Bilirubin 0.5 AST 29 ALT 24 Alkaline Phosphatase 149 H Assessment And Plan - Current Problems (Diagnosis) (1) AMS (altered mental status) Current Visit: Yes Status: Acute - Plan Acute metabolic encephalopathy Suspect secondary to UTI Associated leukocytosis. IV antibiotic Hydrate with IV fluid. Monitoring electrolytes. Monitor CBC Follow cultures. Hyponatremia Likely secondary to dehydration. Sodium level improved with IV NS Continue to monitor BMP. ANA Prerenal secondary to dehydration Serum creatinine is improving with IV fluid. Continue IV hydration and monitor renal function. History of CVA/PAD Continue aspirin and Plavix and statin therapy. DM type II/peripheral neuropathy Semglee insulin, Premeal insulin and insulin sliding scale for glucose management. Impaired mobility/multiple falls Patient states that he ambulates with a cane at baseline. PT consult DVT prophylaxis: Heparin SQ
[2023-09-29] MEDS ORDERED: GLUCAGON 1 MG/VIAL IM PRN (14:36)
[2023-09-29] MEDS ORDERED: D10W 250 ML BAG IV PRN (14:36)
[2023-09-29 15:21] LABS: Barbiturates NEGATIVE (NEGATIVE); Benzodiazepines NEGATIVE (NEGATIVE); Cocaine NEGATIVE (NEGATIVE); METHAMPHETAM NEGATIVE (NEGATIVE); Methadone NEGATIVE (NEGATIVE); Opiates NEGATIVE (NEGATIVE); Phencyclidine NEGATIVE (NEGATIVE); THC Cannibis POSITIVE (NEGATIVE)
[2023-09-29] MEDS: PANTOPRAZOLE 40MG TABLET PO SCH (16:04)
[2023-09-29] MEDS: HEPARIN 5000 UNIT/ML 1 ML VIAL SQ SCH (16:04)
[2023-09-29] MEDS: INSULIN REGULAR (HUMAN) 100 UNIT/ML SQ SCH (16:30)
[2023-09-29] MEDS ORDERED: INSULN SQ SCH (17:00)
[2023-09-29] MEDS ORDERED: INSULIN ASPART 100 UNIT/ML SQ SCH (17:00)
[2023-09-29] MEDS: INSULIN LISPRO 100 UNIT/ML SQ SCH (17:03)
[2023-09-29] MEDS: METOPROLOL TAR 50 MG TAB PO SCH (17:55)
[2023-09-29] MEDS: CLOPIDOGREL 75 MG TABLET PO SCH (20:44)
[2023-09-29] MEDS: CEFTRIAXONE 1,000 MG in NA CHLORIDE 0.9% 50 ML IVPB ONE (21:22)
[2023-09-30 03:43] LABS: Absolute Basophils 0.1 K/uL (0-0.5); Absolute Lymphocytes (CBC) 0.9 K/uL (0.7-4.9); Absolute Monocytes 1.5 K/uL (0.1-1.3); Basophils % 0.8 % (0-1.3); Eosinophils % 0.5 % (0-4.4); Hematocrit 25.5 % (39.6-49.0); Hemoglobin 8.2 g/dL (13.6-17.9); MCH 25.2 pg (27.0-35.0); MCHC 32.1 g/dL (32.0-36.0); MCV 78.5 fL (80-100); MPV 7.8 fL (7.6-11.3); Monocytes % 17.9 % (3.3-12.3); Neutrophils % 69.8 % (41.7-73.7); Platelets 213 thou/uL (152-406); RBC Red Blood Cell Count 3.25 M/uL (4.33-5.43); Red Cell Distribution Width 20.5 % (12.1-15.2)
[2023-09-30 04:01] LABS: Anion Gap 10.6 mEq/L (5.0-15.0); Potassium 3.6 mEq/L (3.5-5.1); Troponin High Sensitivity 15.3 pg/mL (<58.9)
[2023-09-30] MEDS: INSULIN LISPRO 100 UNIT/ML SQ SCH (07:30)
[2023-09-30] MEDS: INSULIN GLARGINE 100 UNIT/ML SQ SCH (08:27)
[2023-09-30] MEDS: ALOGLIPTIN BENZOATE 12.5 MG TABLET PO SCH (08:27)
[2023-09-30] MEDS: GABAPENTIN 300 MG CAP PO SCH (08:28)
[2023-09-30] MEDS: FUROSEMIDE 40 MG TABLET PO SCH (08:28)
[2023-09-30] MEDS: HOME MED 1 EA UNK (Dapagliflozin Propanediol [Farxiga] 10 MG Tablet) PO SCH (08:29)
[2023-09-30] MEDS: cilostazoL 100 MG TAB PO SCH (11:44)
--- NOTE | 2023-09-30 12:47 | P.PN ---
Subjective Date of Service: 09/30/23 Chief Complaint: Status post fall with hip pain and fevers Pt is resting comfortably in bed. Pt is AAox2. He complan so pain in his leg. no leg swelling. Off rocephin, no growth on urine cx. No other complaints. Review of Systems General: Unremarkable Eyes: Unremarkable ENT: Unremarkable Respiratory: Unremarkable Cardiovascular: Unremarkable Gastrointestinal: Unremarkable Genitourinary: Unremarkable Musculoskeletal: Unremarkable Integumentary: Unremarkable Neurological: Unremarkable Lymphatics: Unremarkable Physical Examination - Vital Signs Temperature: 97.4 F Blood Pressure: 129/60 Pulse: 82 Respirations: 28 Pulse Ox (%): 95 - Physical Exam General: Alert, In no apparent distress, Oriented x3 HEENT: Atraumatic, Normocephalic, PERRLA Neck: Supple, 2+ carotid pulse no bruit Respiratory: Clear to auscultation bilaterally, Normal air movement, Diminished Cardiovascular: No edema, Normal pulses, Regular rate/rhythm, Normal S1 S2 Capillary refill: <2 Seconds Gastrointestinal: Normal bowel sounds, Soft and benign, Non-distended Musculoskeletal: No clubbing, No swelling Integumentary: No rashes, No breakdown Neurological: Normal gait, Normal speech, Normal strength at 5/5 x4 extr, Normal tone, Sensation intact Lymphatics: No axilla or inguinal lymphadenopathy Assessment And Plan - Plan Acute metabolic encephalopathy: improving. Likely due to hyponatremia. Pt is AAox2. We stopped rocephin because there is no growth on urine cx. Suspect UTI: Off rocephin. No growth on urine cx. Hyponatremia: Na is 129-> 135->135. Will continue IVF and trend Na . ANA: Likely Prerenal secondary to dehydration. Cr is 1.14. Will avoid nephrotoxins and monitor renal function. History of CVA/PAD: Continue aspirin, Plavix, and statin. DM type II/peripheral neuropathy: Will continue accuchek, lantus, SSI and ADA diet. Impaired mobility/multiple falls: Continue fall precaution. Pt is ambulates with a cane. Consulted PT. DVT prophylaxis: Heparin SQ Code: full DIspo; Pending hospital course.
[2023-09-30] MEDS: ALTACE PO SCH (21:00)
[2023-09-30] MEDS: TRAZODONE 50 MG TABLET PO SCH (21:23)
[2023-09-30] MEDS: ATORVASTATIN 80 MG TAB PO SCH (21:23)
[2023-10-01] MEDS: ONDANSETRON 4 MG/2 ML VIAL IV PRN (00:42)
[2023-10-01 04:37] LABS: Absolute Eosinophils 0.1 K/uL (0-0.5); Absolute Lymphocytes (CBC) 0.8 K/uL (0.7-4.9); Absolute Monocytes 1.4 K/uL (0.1-1.3); Absolute Neutrophil 6.8 K/uL (1.8-8.0); Basophils % 0.3 % (0-1.3); Hematocrit 23.8 % (39.6-49.0); Hemoglobin 7.9 g/dL (13.6-17.9); Lymphocytes % 8.8 % (15.3-44.8); MCH 25.9 pg (27.0-35.0); MCHC 32.9 g/dL (32.0-36.0); MCV 78.7 fL (80-100); MPV 7.6 fL (7.6-11.3); Monocytes % 15.8 % (3.3-12.3); Neutrophils % 74.1 % (41.7-73.7); Platelets 210 thou/uL (152-406); RBC Red Blood Cell Count 3.03 M/uL (4.33-5.43); Red Cell Distribution Width 20.1 % (12.1-15.2)
[2023-10-01 04:55] LABS: Anion Gap 8.3 mEq/L (5.0-15.0); Potassium 3.3 mEq/L (3.5-5.1); Troponin High Sensitivity 9.6 pg/mL (<58.9)
--- NOTE | 2023-10-01 11:18 | P.PN ---
Subjective Date of Service: 10/01/23 Chief Complaint: Status post fall with hip pain and fevers Pt is resting comfortably in bed. Pt is AAOx2. He complains of pain in his legs. No leg swelling. Potassium is 3.3. Off rocephin due to no growth on urine cx. No other complaints. Review of Systems General: Unremarkable Eyes: Unremarkable ENT: Unremarkable Respiratory: Unremarkable Cardiovascular: Unremarkable Gastrointestinal: Unremarkable Musculoskeletal: Leg Pain Integumentary: Unremarkable Neurological: Unremarkable Lymphatics: Unremarkable Physical Examination - Vital Signs Temperature: 98.8 F Blood Pressure: 175/74 Pulse: 72 Respirations: 17 Pulse Ox (%): 95 - Physical Exam General: Alert, In no apparent distress, Oriented x3 HEENT: Atraumatic, Normocephalic, PERRLA Neck: Supple, 2+ carotid pulse no bruit Respiratory: Clear to auscultation bilaterally, Normal air movement Cardiovascular: No edema, Normal pulses, Regular rate/rhythm, Normal S1 S2 Capillary refill: <2 Seconds Gastrointestinal: Normal bowel sounds, Soft and benign, Non-distended Musculoskeletal: No clubbing, No swelling Integumentary: No rashes, No breakdown Neurological: Normal speech, Normal strength at 5/5 x4 extr, Normal tone, Sensation intact Lymphatics: No axilla or inguinal lymphadenopathy - Studies Microbiology Data (last 24 hrs): 09/28/23 19:06 Clean Catch Urine Maddock Count - Final BETWEEN 10,000 & 100,000 CFU/ML 09/28/23 19:06 Clean Catch Urine - Final MIXED JESSIE. Assessment And Plan - Plan Acute metabolic encephalopathy: improving. Likely due to hyponatremia. Pt is AAOx2. We stopped rocephin because there is no growth on urine cx. Suspect UTI: Off rocephin. No growth on urine cx. Hyponatremia: Na is 129-> 135->135-> 134. Will continue IVF and trend Na . Hypokalemia: k is 3.3. Will replete and monitor. ANA: Likely Prerenal secondary to dehydration. Cr is 1.13<- 1.14. Will avoid nephrotoxins and monitor renal function. History of CVA/PAD: Continue aspirin, Plavix, and statin. DM type II/peripheral neuropathy: Will continue accuchek, lantus, SSI and ADA diet. Impaired mobility/multiple falls: Continue fall precaution. Pt is ambulates with a cane. Consulted PT. DVT prophylaxis: Heparin SQ Code: full DIspo; Pending hospital course.
[2023-10-01] MEDS: POTASSIUM CL SA 10 MEQ TAB PO SCH (11:36)
[2023-10-01] MEDS: HYDROCODONE/APAP 7.5/325 MG TAB PO PRN (12:01)
[2023-10-02 07:56] LABS: Absolute Eosinophils 0.3 K/uL (0-0.5); Absolute Lymphocytes (CBC) 0.9 K/uL (0.7-4.9); Absolute Neutrophil 5.5 K/uL (1.8-8.0); Basophils % 0.4 % (0-1.3); Eosinophils % 3.9 % (0-4.4); Hematocrit 25.8 % (39.6-49.0); Hemoglobin 8.3 g/dL (13.6-17.9); MCH 25.2 pg (27.0-35.0); MCHC 32.1 g/dL (32.0-36.0); MCV 78.7 fL (80-100); MPV 7.4 fL (7.6-11.3); Monocytes % 12.9 % (3.3-12.3); Neutrophils % 70.8 % (41.7-73.7); Platelets 233 thou/uL (152-406); RBC Red Blood Cell Count 3.28 M/uL (4.33-5.43); Red Cell Distribution Width 19.9 % (12.1-15.2)
[2023-10-02 08:05] LABS: Anion Gap 7.2 mEq/L (5.0-15.0); Potassium 4.2 mEq/L (3.5-5.1)
--- NOTE | 2023-10-02 11:14 | P.PN ---
Subjective Date of Service: 10/02/23 Chief Complaint: Status post fall with hip pain and fevers Pt is resting comfortably in bed. Pt is AAOx2. He complains of pain in his legs. No leg swelling. Potassium is 4.2<- 3.3. Off rocephin due to no growth on urine cx. Waiting for PT eval. Pt reports that he can't walk because the elevator in his house broke down. No other complaints. Review of Systems General: Unremarkable Eyes: Unremarkable ENT: Unremarkable Respiratory: Unremarkable Cardiovascular: Unremarkable Gastrointestinal: Unremarkable Genitourinary: Unremarkable Musculoskeletal: Leg Pain Integumentary: Unremarkable Neurological: Unremarkable Lymphatics: Unremarkable Physical Examination - Vital Signs Temperature: 97.2 F Blood Pressure: 164/70 Pulse: 83 Respirations: 20 Pulse Ox (%): 92 - Physical Exam General: Alert, In no apparent distress, Oriented x2 HEENT: Atraumatic, Normocephalic, PERRLA Neck: Supple, 2+ carotid pulse no bruit Respiratory: Clear to auscultation bilaterally, Normal air movement, Diminished Cardiovascular: No edema, Normal pulses, Regular rate/rhythm, Normal S1 S2 Capillary refill: <2 Seconds Gastrointestinal: Normal bowel sounds, Soft and benign, Non-distended Musculoskeletal: No clubbing, No swelling Integumentary: No rashes, No breakdown Neurological: Normal gait, Normal speech, Normal strength at 5/5 x4 extr Lymphatics: No axilla or inguinal lymphadenopathy - Studies Microbiology Data (last 24 hrs): 09/28/23 19:06 Clean Catch Urine Allison Count - Final BETWEEN 10,000 & 100,000 CFU/ML 09/28/23 19:06 Clean Catch Urine - Final MIXED JESSIE. Assessment And Plan - Plan Acute metabolic encephalopathy: improving. Likely due to hyponatremia. Pt is AAOx2. We stopped rocephin because there is no growth on urine cx. Suspect UTI: Off rocephin. No growth on urine cx. Hyponatremia: Na is 129-> 135->135-> 134. Will continue IVF and trend Na . Hypokalemia: K is 4.2<- 3.3. Will replete and monitor. ANA: Likely Prerenal secondary to dehydration. Cr is 1.27<- 1.13<- 1.14. Will avoid nephrotoxins and monitor renal function. History of CVA/PAD: Continue aspirin, Plavix, and statin. DM type II/peripheral neuropathy: Will continue accuchek, lantus, SSI and ADA di et. Impaired mobility/multiple falls: Continue fall precaution. Pt is ambulates with a cane. Consulted PT. DVT prophylaxis: Heparin SQ Deconditioning: Pt reports that he cannot walk at home because the elevator in his house broke down. Consulted PT. Code: full Dispo: Pending hospital course.
[2023-10-03] MEDS: HYDRALAZINE HCL 20 MG/ML VIAL IV ONE (02:29)
[2023-10-03 09:00] VITALS: BP 181/78; TEMP 97.4
[2023-10-03] MEDS: LOSARTAN POTASSIUM 50 MG TABLET PO SCH (09:15)
--- NOTE | 2023-10-03 09:27 | P.PN ---
Subjective Date of Service: 10/03/23 Chief Complaint: Status post fall with hip pain and fevers Noted confusion, speech eval ordered, complains of bilateral leg pain, peripheral neuropathy, impaired mobility PT to assess and eval Patient unable to stand with PT, will eval for prison facility - Physical Exam General: Alert, In no apparent distress, Oriented x2 HEENT: Atraumatic, Normocephalic, PERRLA Neck: Supple, 2+ carotid pulse no bruit Respiratory: Clear to auscultation bilaterally, Normal air movement, Diminished Cardiovascular: No edema, Normal pulses, Regular rate/rhythm, Normal S1 S2 Capillary refill: <2 Seconds Gastrointestinal: Normal bowel sounds, Soft and benign, Non-distended Musculoskeletal: No clubbing, No swelling Integumentary: No rashes, No breakdown Neurological: Normal gait, Normal speech, Normal strength at 5/5 x4 extr Lymphatics: No axilla or inguinal lymphadenopathy Review of Systems per HPI Physical Examination - Vital Signs Temperature: 97.4 F Blood Pressure: 181/78 Pulse: 86 Respirations: 18 Pulse Ox (%): 93 Assessment And Plan - Plan Assessment plan Acute metabolic encephalopathy: improving. Likely due to hyponatremia. Pt is AAOx2. We stopped rocephin because there is no growth on urine cx. Speech eval Suspect UTI: Off rocephin. No growth on urine cx. Hyponatremia: Na is 129-> 135->135-> 134. Will continue IVF and trend Na . Hypokalemia: K is 4.2<- 3.3. Will replete and monitor. ANA: Likely Prerenal secondary to dehydration. Cr is 1.27<- 1.13<- 1.14. Will avoid nephrotoxins and monitor renal function. History of CVA/PAD: Continue aspirin, Plavix, and statin. DM type II/peripheral neuropathy: Will continue accuchek, lantus, SSI and ADA diet. Impaired mobility/multiple falls: Continue fall precaution. Pt is ambulates with a cane. Consulted PT. Max assist for transfers-eval for prison facility DVT prophylaxis: Heparin SQ Deconditioning: Pt reports that he cannot walk at home because the elevator in his house broke down. Consulted PT. Plan for home health Code: full Dispo: Pending hospital course. Discharge Plan: Other (SNF) - Code Status/Comfort Care Code Status: Full Code (correction facility) Critical Care: No Time Spent Managing PTS Care (In Minutes): 35
[2023-10-03 10:31] VITALS: O2SAT 92
--- NOTE | 2023-10-03 11:58 | P.DS ---
Admission Date: 09/28/23 Discharge Date: 10/03/23 Reason for Admission: Status post fall with hip pain and fevers Brief History of Present Illness: 62-year-old gentleman who has a history of diabetes, dyslipidemia, peripheral arterial disease, comes into the emergency room after having a fall and apparently he hurt his hip. Patient moved to the [facility] from [place], [place] 2 years ago. He had come down to visit his sisters. His sister who lives with him states that he has not been doing that well in [place], [place] and he did not have a lot of family there so he came to live with them. He has a history of diabetes, but she states that he does not really take care of himself. He tends to eat what ever he feels like he drinks a lot of sodas with sugar. He was found unresponsive 3 to 4 months ago. He had to be intubated and he was placed on life support. The sitter says he was in a diabetic coma and he was seen by Dr. Holcomb. He was actually transferred to [facility] in [place] where he had a carotid endarterectomy. He also had an arteriogram of the lower extremities and he had stents placed in his lower extremities as well as a stent in his carotid artery. He has been really weak since then and he gets around with a cane. He continues to smoke and he continues to not really take care of his diabetes. He has a history of neuropathy and he is smoking about a pack a day. She states that gone back to his house where he lives with his sister and brothers. He had gone to his sister's room to find a cigarette. She was sleeping so she thinks that he did not find any cigarettes and he went back to his room. But according to her ex- who lives there as well patient had fallen right before he got to his room. He apparently lost his footing he landed on the ground. He was admitted for metabolic encephalopathy, acute cystitis peripheral neuropathy., Fall - Physical Exam General: Alert, In no apparent distress, Oriented x2 HEENT: Atraumatic, Normocephalic, PERRLA Neck: Supple, 2+ carotid pulse no bruit Respiratory: Clear to auscultation bilaterally, Normal air movement, Diminished Cardiovascular: No edema, Normal pulses, Regular rate/rhythm, Normal S1 S2 Capillary refill: <2 Seconds Gastrointestinal: Normal bowel sounds, Soft and benign, Non-distended Musculoskeletal: No clubbing, No swelling Integumentary: No rashes, No breakdown Neurological: Normal gait, Normal speech, Normal strength at 5/5 x4 extr Lymphatics: No axilla or inguinal lymphadenopathy Hospital Course: 62 year-old male patient with a past medical history of uncontrolled diabetes, peripheral neuropathy, presented with fall. Was noted to have confusion, acute cystitis, Condition improved with IV antibiotics, IV fluids, blood glucose control, Patient tolerating diet, stable for discharge to home with follow-up appointment with primary care physician. Plan to discharge home with home health. PROBLEM: Acute cystitis treated with IV antibiotic Fall physical therapy evaluation Confusion improved Diabetes Peripheral neuropathy Educated on better glucose control, diabetic diet Continue home medicines as previously prescribed GOAL: Clear understanding of disease process INSTRUCTIONS: Physician Discharge Instructions: -DC IV and DC home -Follow-up with PCP in 1 to 2 weeks -Please call Dr. Paula at [phone] if any questions regarding hospital stay -Please call nursing station at [phone] if any nursing or medication questions -Return to the emergency room if symptoms worsen Diet: ADA, low sodium Activity: Fall precautions <Ling Reynaga - Last Filed: 10/03/23 11:59> Admission Date: 09/28/23 Discharge Date: 10/08/23 - Problems (1) AMS (altered mental status) Status: Acute (2) Delirium Status: Acute (3) Fever Status: Acute (4) PAD (peripheral artery disease) Status: Acute (5) CVA (cerebral vascular accident) Status: Acute (6) Status post fall Status: Acute (7) CAD (coronary artery disease) Status: Chronic (8) Diabetes Status: Chronic (9) Severe hypertension Status: Acute (10) UTI (urinary tract infection) Status: Acute (11) Enteritis Status: Acute Hospital Course: Patient had extensive workup for his altered mentation. Patient's clinical symptoms have stabilized. Patient has significant vasculopathy. Patient will need to follow-up with his brim shaper as well as his vascular team at [facility]. Patient is stable and plan is to discharge with outpatient follow- up. Will try to arrange for home health at the time of discharge as well. <Mavis Paula - Last Filed: 10/08/23 07:18> Disposition: DC HOME/HOME HEALTH CARE Discharge Condition: GOOD Vital Signs/Physical Exam: Temp Pulse Resp BP Pulse Ox 97.4 F 86 18 181/78 H 93 10/03/23 09:30 10/03/23 09:30 10/03/23 09:30 10/03/23 09:30 10/03/23 09:30 Laboratory Data at Discharge: WBC 7.80 thou/uL (4.3-10.9) 10/02/23 07:42 Hgb 8.3 g/dL (13.6-17.9) L 10/02/23 07:42 Hct 25.8 % (39.6-49.0) L 10/02/23 07:42 Plt Count 233 thou/uL (152-406) 10/02/23 07:42 PT 12.8 SECONDS (9.5-12.5) H 09/28/23 18:14 INR 1.17 09/28/23 18:14 APTT 38.6 SECONDS (24.3-36.9) H 09/28/23 18:14 Sodium 134 mEq/L (136-145) L 10/02/23 07:42 Potassium 4.2 mEq/L (3.5-5.1) D 10/02/23 07:42 BUN 22 mg/dL (7-18) H 10/02/23 07:42 Creatinine 1.27 mg/dL (0.70-1.30) 10/02/23 07:42 Glucose 121 mg/dL (74-106) H 10/02/23 07:42 Total Bilirubin 0.4 mg/dL (0.2-1.0) 09/29/23 04:40 AST 43 U/L (15-37) H 09/29/23 04:40 ALT 22 U/L (16-61) 09/29/23 04:40 Alkaline Phosphatase 114 U/L (45-117) D 09/29/23 04:40 Triglycerides 103 mg/dL (<150) 09/29/23 04:40 Cholesterol 112 mg/dL (<200) 09/29/23 04:40 HDL Cholesterol 41 mg/dL (40-60) 09/29/23 04:40 Cholesterol/HDL Ratio 2.73 09/29/23 04:40 <Ling Reynaga - Last Filed: 10/03/23 11:59> Vital Signs/Physical Exam: Temp Pulse Resp BP Pulse Ox 97.4 F 86 18 181/78 H 93 10/03/23 08:00 10/03/23 08:00 10/03/23 08:00 10/03/23 08:00 10/03/23 08:00 Laboratory Data at Discharge: WBC 7.80 thou/uL (4.3-10.9) 10/02/23 07:42 Hgb 8.3 g/dL (13.6-17.9) L 10/02/23 07:42 Hct 25.8 % (39.6-49.0) L 10/02/23 07:42 Plt Count 233 thou/uL (152-406) 10/02/23 07:42 PT 12.8 SECONDS (9.5-12.5) H 09/28/23 18:14 INR 1.17 09/28/23 18:14 APTT 38.6 SECONDS (24.3-36.9) H 09/28/23 18:14 Sodium 134 mEq/L (136-145) L 10/02/23 07:42 Potassium 4.2 mEq/L (3.5-5.1) D 10/02/23 07:42 BUN 22 mg/dL (7-18) H 10/02/23 07:42 Creatinine 1.27 mg/dL (0.70-1.30) 10/02/23 07:42 Glucose 121 mg/dL (74-106) H 10/02/23 07:42 Total Bilirubin 0.4 mg/dL (0.2-1.0) 09/29/23 04:40 AST 43 U/L (15-37) H 09/29/23 04:40 ALT 22 U/L (16-61) 09/29/23 04:40 Alkaline Phosphatase 114 U/L (45-117) D 09/29/23 04:40 Triglycerides 103 mg/dL (<150) 09/29/23 04:40 Cholesterol 112 mg/dL (<200) 09/29/23 04:40 HDL Cholesterol 41 mg/dL (40-60) 09/29/23 04:40 Cholesterol/HDL Ratio 2.73 09/29/23 04:40 <Mavis Paula - Last Filed: 10/08/23 07:18> Diet: AHA Activity: Fall precautions Time spent managing pt's care (in minutes): 55 <Ling Reynaga - Last Filed: 10/03/23 11:59> <Mavis Paula - Last Filed: 10/08/23 07:18> Home Medications: Clopidogrel Bisulfate [Plavix*] 75 mg PO BEDTIME #30 tab 03/15/22 Insulin Detemir [Levemir] 24 unit SQ BID 04/18/22 Metoprolol Tartrate [Lopressor*] 50 mg PO BID 6AM 6PM #60 tab 04/24/22 Altace 1.25 1.25 mg PO BEDTIME 09/29/23 Atorvastatin Calcium [Lipitor] 80 mg PO BEDTIME 09/29/23 Dapagliflozin Propanediol [Farxiga] 10 mg PO DAILY 09/29/23 Furosemide [Lasix*] 40 mg PO BID 09/29/23 Gabapentin 300 mg PO BID 09/29/23 Hydrocodone/Acetaminophen [Hydrocodone-Acetamin 7.5-325] 1 each PO BIDP PRN 09/29/23 Insulin Aspart [Novolog Flexpen] 6 unit SQ AC 09/29/23 Sitagliptin Phosphate [Januvia] 100 mg PO DAILY 09/29/23 Trazodone [Desyrel*] 50 mg PO BEDTIME 09/29/23 cilostazoL [Cilostazol] 100 mg PO BID 09/29/23 predniSONE [Prednisone*] 5 mg PO SEECOM 09/29/23 Losartan Potassium [Cozaar*] 50 mg PO BID #60 tab 10/03/23 Nifedipine Xl [Procardia XL*] 60 mg PO DAILY #30 tab 10/03/23 Pantoprazole [Protonix Tab*] 40 mg PO BIDAC #60 tab 10/03/23 New Medications: Losartan Potassium [Cozaar*] 50 mg PO BID #60 tab Nifedipine Xl [Procardia XL*] 60 mg PO DAILY #30 tab Pantoprazole [Protonix Tab*] 40 mg PO BIDAC #60 tab Physician Discharge Instructions: -DC IV and DC home -Follow-up with PCP in 1 to 2 weeks -Follow-up with Neurology in 1 to 2 weeks -Please call Dr. Paula at [phone] if any questions regarding hospital stay -Please call nursing station at [phone] if any nursing or medication questions -Return to the emergency room if symptoms worsen Home Health arranged: [facility] P: [phone] F: [phone] Followup: NONE,NONE [Primary Care Provider] -
[2023-10-03] MEDS ORDERED: NIFEDIPINE XL 60 MG TABLET PO SCH (12:00)
== END 2023-10-03 10:20 | disposition home health service (06) | DRG 871 ==
LOC: ER 14:17 → 4TH 21:28
PROVIDERS: ADMIT Hospitalist; ATTEND Hospitalist
DX: A41.9 Sepsis, unspecified organism (principal); G93.41 Metabolic encephalopathy; N17.9 Acute kidney failure, unspecified; F05 Delirium due to known physiological condition; E87.1 Hypo-osmolality and hyponatremia; N30.00 Acute cystitis without hematuria; M31.9 Necrotizing vasculopathy, unspecified; R65.20 Severe sepsis without septic shock; I10 Essential (primary) hypertension; G89.29 Other chronic pain; M25.552 Pain in left hip; K52.9 Noninfective gastroenteritis and colitis, unspecified; E11.51 Type 2 diabetes mellitus with diabetic peripheral angiopathy without gangrene; E11.42 Type 2 diabetes mellitus with diabetic polyneuropathy; E86.0 Dehydration; D63.8 Anemia in other chronic diseases classified elsewhere; J44.9 Chronic obstructive pulmonary disease, unspecified; F17.210 Nicotine dependence, cigarettes, uncomplicated; I25.2 Old myocardial infarction; B37.9 Candidiasis, unspecified; Z79.4 Long term (current) use of insulin; Z95.5 Presence of coronary angioplasty implant and graft; Z79.02 Long term (current) use of antithrombotics/antiplatelets; Z79.82 Long term (current) use of aspirin; Z79.52 Long term (current) use of systemic steroids; Z79.899 Other long term (current) drug therapy; W19.XXXA Unspecified fall, initial encounter; Y93.9 Activity, unspecified; Y92.9 Unspecified place or not applicable; Y99.9 Unspecified external cause status
CPT/HCPCS: 36415; 70450; 71045; 71250; 72125; 80048; 80053; 80061; 80307; 81001; 82947; 83605; 84484; 85025; 85610; 85730; 87040; 87086; 87088; 93005; 96361; 96365; 96375; 97110; 97161; 97530; 97542; 99285; J0360; J0696; J1644; J1815; J2270; J2405; J7030

== ENCOUNTER 2023-10-06 15:58 | Inpatient (IN) | payer MEDICARE, OTHER ==
--- OUTSIDE RECORDS SUMMARY | 2023-10-06 16:04 | XMS REPORT | Continuity of Care Document ---
Author Name Unknown Address [address] [facility] [address] [facility] [address] [place] [address] [facility] thconnect Address [address] [place] [address] Care Team Providers Care Electric Meter Tester Helper Name Role Phone Pcp, Patient Does Not Have A Primary Care Physic thomas Britni Marvin DO Attending Clinician [phone] Doctor Unassigned, [place] Attending Clinician U jesus Murphy RN, Dora Stover Attending Clinician Unavailab RANDY Vazquez Attending Clinician Unavailmilton Sy MD, Randy Fisher Attending Clinician [phone] Joey Baker DO Attending Clinician [phone] Gregoria Cabrera MD Attending Clinician [phone] Fritz Coats MD Attending Clinician [phone] Chava Hurd MD Attending Clinician [phone] Artie Carrasco MD, Ayo Alvarado Attending Clinician + FRITZ COATS Attending Clinician Unavailable Dm Deng MD Attending Clinician [phone] RANDY SY Admitting Clinician Unavailmilton Sy MD, Randy Fisher Admitting Clinician [phone] Artie Carrasco MD, Ayo Alvarado Admitting Clinician [...] estinal bleeding) Disease Active 2021-07 00:00: 00 [facility] Lung mass Lung mass Disease Active 2021-07 00:00: 00 [facility] S/P primary angioplast y with coronary stent S/P primary angioplast y with coronary stent Disease [facility] 2021-07 00:00: 00 Overview: Formattin g of this note might be different from the original. CAD w/p PCI of RCA and ?LAD 03/2022, with bare metal stent [facility] senior care (current) use of antithromb otics/anti platelets terminal carman (current) use of antithromb otics/anti platelets Disease [facility] 2021-07 00:00: 00 [facility] History of upper gastrointe stinal bleeding History of upper gastrointe stinal bleeding Disease [facility] 2021-07 00:00: 00 Overview: Formattin g of this note might be different from the original. Hx of PUD w/ ulceratio n s/p cauteriza tion and 7U of blood (03/2022) [facility] Type 2 diabetes mellitus with hyperglyce vidya, with long-term current use of insulin Type 2 diabetes mellitus with hyperglyce vidya, with long-term current use of insulin Disease Active 2021-07 00:00: 00 Overview: Formattin g of this note is different from the original. 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 and stage 1 through stage 4 chronic kidney disease, or unspecifie d chronic kidney disease Hypertensi ve heart and chronic kidney disease with heart failure and stage 1 through stage 4 chronic kidney disease, or unspecifie d chronic kidney disease Disease Active 2021-07 00:00: 00 [facility] 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 Disease Active 2021-07 00:00: 00 [facility] Primary hyperchole sterolemia Primary hyperchole sterolemia Disease Active 2021-07 00:00: 00 [facility] Arterioscl erosis of coronary artery Arterioscl erosis of coronary artery Disease Active 03-25 00:00: 00 [facility] Allergies, Adverse Reactions, Alerts Allergy Name Allergy Type Status Severity Reaction(s) Onset Date Inactive Date Treating Clinician Comments Source NO KNOWN ALLERGIE S Drug Class Active [facility] Social History Social Habit Start Date Stop Date Quantity Comments Source History of tobacco use Passive smoker [facility] History SDOH Social Connections Get Together [facility] History SDOH Social Connections Pentecostalism [facility] History SDOH Social Connections Membership [facility] History SDOH Social Connections Meetings [facility] History SDOH Social Connections Living [facility] Exposure to SARS-CoV-2 (event) 2022-06-18 00:00:00 2022-06-28 03:00:00 Not sure [facility] History SDOH Food Worry 2022-06-28 00:00:00 2022-06-28 00:00:00 1 [facility] History SDOH Food Scarcity 2022-06-28 00:00:00 2022-06-28 00:00:00 1 [facility] History SDOH Transport Med 2022-06-28 00:00:00 2022-06-28 00:00:00 2 [facility] History SDOH Transport Non-Med 2022-06-28 00:00:00 2022-06-28 00:00:00 2 [facility] Tobacco use and exposure 2022-06-28 00:00:00 2022-06-28 00:00:00 User of smokeless tobacco [facility] History SDOH Alcohol Frequency 2022-06-28 00:00:00 2022-06-28 00:00:00 1 [facility] History SDOH Alcohol Std Drinks 2022-06-28 00:00:00 2022-06-28 00:00:00 0 [facility] History SDOH Alcohol Binge 2022-06-28 00:00:00 2022-06-28 00:00:00 1 [facility] History SDOH Social Connections Phone 2022-06-28 00:00:00 2022-06-28 00:00:00 5 [facility] History SDOH Physical Activity DPW 2022-06-28 00:00:00 2022-06-28 00:00:00 0 [facility] History SDOH Physical Activity MPS 2022-06-28 00:00:00 2022-06-28 00:00:00 0 [facility] History SDOH Financial 2022-06-28 00:00:00 2022-06-28 00:00:00 4 [facility] Alcohol intake 2022-06-28 00:00:00 2022-06-28 00:00:00 Ex-drinker (finding) [facility] Alcohol Comment 2022-05-14 00:00:00 2022-05-14 00:00:00 Previous heavy alcohol use [facility] Sex Ass[birth year] At 1960 00:00:00 1960 00:00:00 [facility] Smoking Status Start Date Stop Date Source Tobacco smoking consumption unknown [facility] Smokes tobacco daily 2022-06-28 00:00:00 [facility] Medications Ordered Medication Name Filled Medication Name Start Date Stop Date Current Medication? Ordering Clinician Indication Dosage Frequency Signature (SIG) Comments Components Source furosemide 40 mg tablet 07-26 00:00: 00 Yes [id number] 40mg Take 1 tablet by mouth in the morning. [facility] metoprolol tartrate 50 mg tablet 2021-07 15:49: 30 Yes 50mg Take 50 mg by mouth in the morning and 50 mg in the evening. [facility] traZODone 50 mg tablet 2021-07 15:49: 30 Yes 50mg Take 50 mg by mouth at bedtime. [facility] traZODone (DESYREL) tablet 50 mg 2021-07 03:00: 00 Yes 50mg 50 mg, Oral, QHS, First dose on Mon06/28/22 at 2100, Until Discontinu ed, Routine [facility] atorvastati n (LIPITOR) tablet 40 mg 2021-07 03:00: 00 Yes 40mg 40 mg, Oral, QHS, First dose on Mon06/28/22 at 2100, Until Discontinu ed, Routine [facility] insulin glargine (LANTUS U-100) injection 15 Units 2021-07 02:00: 00 Yes 15U 15 Units, Subcutaneo us, BID, First dose on Mon06/28/22 at 2000, Until Discontinu ed, Routine [facility] losartan (COZAAR) tablet 50 mg 2021-07 22:00: 00 Yes 50mg 50 mg, Oral, DAILY, First dose on Mon06/28/22 at 1600, Until Discontinu ed, Routine [facility] Sliding Scale Insulin - Lispro (HumaLOG) + Fsbg Testing 2021-07 18:00: 00 Yes Subcutaneo us, TID MEALS+HS, First dose on Mon06/28/22 at 1200, Until Discontinu ed, Routine [facility] dextrose 10% (D10W) bolus infusion 250 mL [...] blood glucose is < 80 mg/dL, repeat.
[facility] glucagon (GLUCAGEN DIAGNOSTIC KIT) injection 1 mg 2021-07 15:07: 18 Yes 1mg 1 mg, Intramuscu lar, PRN, Starting on Mon06/28/22 at 0907, Until Discontinu ed, ANAYA, Blood Glucose < or = 70 mg/dL and patient is unable to swallow or has mental changes. [facility] clopidogreL (PLAVIX) 75 mg tablet 75 mg 2021-07 15:00: 00 Yes 75mg 75 mg, Oral, DAILY, First dose on Mon06/28/22 at 0900, Until Discontinu ed, Routine [facility] aspirin EC tablet 81 mg 2021-07 15:00: 00 06-28 20:43 :30 No 81mg 81 mg, Oral, DAILY, First dose on Mon06/28/22 at 0900, Until Discontinu ed [facility] pantoprazol e (PROTONIX) injection 40 mg 2021-07 14:00: 00 Yes 40mg 40 mg, Slow IV Push, Q12H, First dose on Mon06/28/22 at 0800, Until Discontinu ed [facility] gabapentin (NEURONTIN) capsule 200 mg 2021-07 14:00: 00 Yes 200mg 200 mg, Oral, TID, First dose on Mon06/28/22 at 0800, Until Discontinu ed, Routine [facility] acetaminoph en (TYLENOL) tablet 650 mg 2021-07 10:01: 56 Yes 650mg 650 mg, Oral, Q6HPRN, Starting on Mon06/28/22 at 0401, Until Discontinu ed, Routine, Pain (scale 1-3) [facility] insulin glargine (LANTUS U-100) injection 17 Units 2021-07- 03:00: 00 Yes 17U 17 Units, Subcutaneo us, [facility], First dose on Mon05/17/22 at 2100, Until Discontinu ed, [facility] aspart [facility] (NOVOLOG FLEXPEN U-100 INSULIN) 100 unit/mL (3 mL) injection 2021-07 00:00: 00 Yes [id number] 5U inject 5 Units under the skin in the morning and 5 Units at noon and 5 Units in the evening[address] [facility] Ins[facility] Detemir 100 unit/mL (3 mL) injection 2021-07 00:00: 00 Yes [id number] 17U inject 17 Units under the skin in the morning and 17 Units in the evening. [facility] metoprolol tartrate 50 mg tablet 2021-07 18:59: 23 Yes 50mg Take 50 mg by mouth in the morning and 50 mg in the evening. [facility] traZODone 50 mg tablet 2021-07 18:59: 23 Yes 50mg Take 50 mg by mouth at bedtime. [facility] clopidogreL (PLAVIX) 75 mg tablet 75 mg 2021-07 18:00: 00 Yes 75mg 75 mg, Oral, DAILY, First dose on Mon05/17/22 at 1200, Until Discontinu ed, Routine [facility] aspirin chewable tablet 81 mg 2021-07 18:00: 00 Yes 81mg 81 mg, Oral, DAILY, First dose on Mon05/17/22 at 1200, Until Discontinu ed, Routine [facility] furosemide (LASIX) tablet 40 mg 2021-07 17:30: 00 Yes 40mg 40 mg, Oral, DAILY, First dose on Mon05/17/22 at 1130, Until Discontinu ed, Routine [facility] amLODIPine (NORVASC) tablet 5 mg 2021-07 15:00: 00 Yes 5mg 5 mg, Oral, DAILY, First dose on Mon05/17/22 at 0900, Until Discontinu ed, Routine [facility] pantoprazol e (PROTONIX) EC tablet 40 mg 2021-07 15:00: 00 Yes 40mg 40 mg, Oral, DAILY, First dose on Mon05/17/22 at 0900, Until Discontinu ed, Routine [facility] potassium chloride in water 10 mEq/100 mL RTU 10 mEq 2021-07 14:00: 00 05-17 22:30 :00 No 10meq 10 mEq, IV Piggyback, Q2H, 4 doses, First dose on Mon05/17/22 at 0800, Last dose on Mon05/17/22 at 1400, Administer over 60 Minutes, 100 mL [facility] KCL (KLOR-CON M20) tablet 40 mEq 2021-07 13:45: 00 05-17 14:58 :00 No 40meq 40 mEq, Oral, ONCE, 1 dose, On Mon05/17/22 at 0745, Routine [facility] furosemide 40 mg tablet 2021-07 11:19: 35 05-17 00:00 :00 No 40mg Take 40 mg by mouth every morning and evening. [facility] furosemide 40 mg tablet 2021-07 00:00: 00 07-26 00:00 :00 No [id number] 40mg Take 1 tablet by mouth in the morning. [facility] Insulin Detemir 100 unit/mL (3 mL) injection 2021-07 00:00: 00 06-17 05:59 :00 No [id number] 17U inject 17 Units under the skin in the morning and 17 Units in the evening. Do all this for 30 days. [facility] pantoprazol e 40 mg EC tablet 2021-07 00:00: 00 06-17 05:59 :00 No [id number] 40mg Take 1 tablet by mouth in the morning and 1 tablet in the evening. Do all this for 30 days. [facility] metoprolol tartrate 50 mg tablet 2021-07 21:59: 40 Yes 50mg Take 50 mg by mouth in the morning and 50 mg in the evening. [facility] traZODone 50 mg tablet 2021-07 21:59: 40 Yes 50mg Take 50 mg by mouth at bedtime. [facility] furosemide 40 mg tablet 2021-07 21:59: 40 Yes 40mg Take 40 mg by mouth every morning and evening. [facility] levothyroxi ne 50 mcg tablet 2021-07 21:59: 40 05-14 00:00 :00 No 50ug Take 50 mcg by mouth. [facility] magnesium oxide (MAG-OX 400) tablet 400 mg 2021-07 14:00: 00 05-16 14:15 :00 No 400mg 400 mg, Oral, ONCE, 1 dose, On Mon05/16/22 at 0800, Routine [facility] HYDROcodone -acetaminop hen (NORCO 5) 5-325 mg tablet 1 tablet 2021-07 09:13: 03 Yes 1{tbl} 1 tablet, Oral, Q6HPRN, Starting on Mon05/16/22 at 0313, Until Discontinu ed, Routine, Pain (scale 7-10) [facility] traZODone (DESYREL) tablet 50 mg 2021-07 03:00: 00 Yes 50mg 50 mg, Oral, QHS, First dose on Mon05/15/22 at 2100, Until Discontinu ed, Routine [facility] bisacodyL (DULCOLAX) tablet 10 mg 2021-07 22:30: 00 05-15 23:04 :00 No 10mg 10 mg, Oral, PRE-PROCED URE ONCE, 1 dose, Starting on Mon05/15/22 at 1630, Until Discontinu ed, Routine, Bowel Prep, Colonoscop y [facility] bisacodyL (DULCOLAX) tablet 10 mg 2021-07 19:00: 00 05-15 21:39 :00 No 10mg 10 mg, Oral, PRE-PROCED URE ONCE, 1 dose, Starting on Mon05/15/22 at 1300, Until Discontinu ed, Routine, Bowel Prep, Colonoscop y [facility] ondansetron (ZOFRAN (PF)) injection 4 mg 2021-07 18:37: 44 Yes 4mg 4 mg, Slow IV Push, Q6HPRN, Starting on 05/15/22 at 1237, Until Discontinu ed, Routine, Nausea and Vomiting (N/V) [facility] peg-electro lyte soln (GOLYTELY) 236-22.74-6 .74 -5.86 gram solution 4,000 mL 2021-07 18:37: 44 05-17 04:11 :51 No 4000mL 4,000 mL, Oral, PRN - SEE INSTRUCTIO NS, Starting on 05/15/22 at 1237, Until 05/16/22 at 2211, Routine, Bowel Prep, colonoscop y [facility] sulfur hexafluorid e microsphr (LUMASON) injection 5 mL 2021-07 18:15: 00 05-15 16:16 :00 No [id number] 5mL 5 mL, Intravenou s, ONCE, 1 dose, On 05/15/22 at 1215, Routine
warehouse team member approving Restricted medication : TRAE JORDAN [facility] metoprolol tartrate (LOPRESSOR) tablet 25 mg 2021-07 14:00: 00 Yes 25mg 25 mg, Oral, BID, First dose (after last modificati on) on 05/15/22 at 0800, Until Discontinu ed, Routine [facility] atorvastati n (LIPITOR) tablet 40 mg 2021-07 03:00: 00 Yes 40mg 40 mg, Oral, QHS, First dose on 05/14/22 at 2100, Until Discontinu ed, Routine [facility] clopidogreL (PLAVIX) 75 mg tablet 75 mg 2021-07 22:45: 00 05-16 00:36 :44 No 75mg 75 mg, Oral, DAILY, First dose on 05/14/22 at 1645, Until Discontinu ed, Routine [facility] acetaminoph en (TYLENOL) tablet 650 mg 2021-07 21:30: 00 05-15 00:16 :00 No 650mg 650 mg, Oral, ONCE, 1 dose, On 05/14/22 at 1530, Routine [facility] lactated ringers IV infusion 1,000 mL 2021-07 19:00: 00 05-14 21:17 :15 No 1000mL at 999 mL/hr, 1,000 mL, Intravenou s, ONCE, 1 dose, On 05/14/22 at 1300, STAT [facility] furosemide (LASIX) tablet 40 mg 2021-07 15:00: 00 05-14 18:15 :34 No 40mg 40 mg, Oral, QAM+PM, First dose on 05/14/22 at 0900, Until Discontinu ed, Routine [facility] Sliding Scale Insulin - Lispro (HumaLOG) + Fsbg Testing 2021-07 14:00: 00 Yes Subcutaneo us, TID MEALS+HS, First dose on 05/14/22 at 0800, Until Discontinu ed, Routine [facility] metoprolol tartrate (LOPRESSOR) tablet 50 mg 2021-07 14:00: 00 05-15 07:38 :55 No 50mg 50 mg, Oral, BID, First dose on 05/14/22 at 0800, Until Discontinu ed, Routine [facility] pantoprazol e (PROTONIX) injection 40 mg 2021-07 14:00: 00 05-14 18:09 :31 No 40mg 40 mg, Slow IV Push, Q12H, First dose on 05/14/22 at 0800, Until Discontinu ed [facility] acetaminoph en (TYLENOL) tablet 650 mg 2021-07 11:42: 27 Yes 650mg 650 mg, Oral, Q6HPRN, Starting on 05/14/22 at 0542, Until Discontinu ed, Routine, Pain (scale 1-3) [facility] Insulin Detemir 100 unit/mL (3 mL) injection 2021-07 00:00: 00 05-17 00:00 :00 No 24U inject 24 Units under the skin in the morning and 24 Units in the evening. [facility] insulin aspart U-100 (NOVOLOG FLEXPEN U-100 INSULIN) 100 unit/mL (3 mL) injection 2021-07 00:00: 00 04-14 04:59 :00 No 5U inject 5 Units under the skin in the morning and 5 Units at noon and 5 Units in the evening. [facility] clopidogreL 75 mg tablet 03-15 00:00: 00 Yes 75mg Take 75 mg by mouth. [facility] pantoprazol e 40 mg EC tablet 03-15 00:00: 00 05-17 00:00 :00 No 40mg 40 mg. [facility] aspirin 81 mg Cap 03-09 00:00: 00 06-29 00:00 :00 No 81mg 81 mg. [facility] gabapentin 100 mg capsule 01-22 00:00: 00 Yes 200mg Take 200 mg by mouth. [facility] atorvastati n 40 mg tablet 01-22 00:00: 00 05-05 04:59 :00 No 40mg Take 40 mg by mouth. [facility] losartan 50 mg tablet 01-22 00:00: 00 04-14 04:59 :00 No 50mg Take 50 mg by mouth. [facility] amLODIPine 5 mg tablet 01-22 00:00: 00 05-14 00:00 :00 No 5mg 5 mg. [facility] cilostazoL 100 mg tablet 01-22 00:00: 00 05-14 00:00 :00 No 1{tbl} Take 1 tablet by mouth every morning and evening. [facility] dapaglifloz in-metformi n 10-1,000 mg TBph 01-22 00:00: 00 05-14 00:00 :00 No Take by mouth. [facility] Vital Signs Vital Name Observation Time Observation Value Comments S ource Systolic blood pressure 2022-06-29 18:12:00 122 mm[Hg] [facility] Diastolic blood pressure 2022-06-29 18:12:00 58 mm[Hg] [facility] Heart rate 2022-06-29 18:12:00 82 /min Unive [facility] Body temperature 2022-06-29 18:12:00 36.61 Candy [facility] Respiratory rate 2022-06-29 18:12:00 16 /min [facility] Oxygen saturation in Arterial blood by Pulse oximetry 2022-06-29 18:12:00 96 /min [facility] Body height 2022-06-28 09:01:00 182.9 cm [facility] Body weight 2022-06-28 09:01:00 84.324 kg [facility] BMI 2022-06-28 09:01:00 25.21 kg/m2 [facility] Systolic blood pressure 2022-05-17 21:59:00 162 mm[Hg] [facility] Diastolic blood pressure 2022-05-17 21:59:00 76 mm[Hg] [facility] Heart rate 2022-05-17 21:59:00 86 /min Unive [facility] Body temperature 2022-05-17 21:59:00 37.28 Candy [facility] Respiratory rate 2022-05-17 21:59:00 18 /min [facility] Oxygen saturation in Arterial blood by Pulse oximetry 2022-05-17 21:59:00 95 /min [facility] Body weight 2022-05-14 11:02:00 86.18 kg [facility] Systolic blood pressure 2022-05-16 22:02:00 134 mm[Hg] [facility] Diastolic blood pressure 2022-05-16 22:02:00 83 mm[Hg] [facility] Respiratory rate 2022-05-16 22:02:00 19 /min [facility] Oxygen saturation in Arterial blood by Pulse oximetry 2022-05-16 22:02:00 98 /min [facility] Heart rate 2022-05-16 22:00:00 78 /min Unive [facility] Body temperature 2022-05-16 14:00:00 36.22 Candy [facility] Body weight 2022-05-14 11:02:00 86.18 kg [facility] Procedures Procedure Date / Time Performed Performing Clinician Source EXTERNAL PROVIDER RECORDS 2022-07-08 06:01:00 Doctor Unassigned, [place] [facility] POCT GLUCOSE (AUTOMATED) 2022-06-29 18:21:00 Randy Sy [facility] POCT GLUCOSE (AUTOMATED) 2022-06-29 15:34:00 Randy Sy [facility] CBC WITH DIFF 2022-06-29 11:58:00 Anselmo [facility] POCT GLUCOSE (AUTOMATED) 2022-06-29 02:39:00 Randy Sy [facility] POCT GLUCOSE (AUTOMATED) 2022-06-28 23:11:00 Randy Sy [facility] CBC WITH DIFF 2022-06-28 20:43:00 Anselmo [facility] POCT GLUCOSE (AUTOMATED) 2022-06-28 17:59:00 Randy Sy [facility] POCT GLUCOSE (AUTOMATED) 2022-06-28 15:05:00 Randy Sy [facility] HEPATIC FUNCTION PANEL (8007 6) (ALB,T.PRO,BILI T,BU/BC,ALT,AST,ALK PHOS) 2022-06-28 11:52:00 Tremayne Briones [facility] BASIC METABOLIC PANEL (NA, K , CL, CO2, GLUCOSE, BUN, CREATININE, CA) 2022-06-28 11:52:00 Anselmo [facility] CBC WITH DIFF 2022-06-28 11:52:00 Anselmo [facility] PROTHROMBIN TIME / INR 2022-06-28 11:52:00 Anselmo [facility] ACTIVATED PARTIAL THRMPLAS JAMESON 2022-06-03 7 11:52:00 Anselmo [facility] HB ABO GROUPING 2022-06-28 11:50:00 Tremayne Briones [facility] POCT GLUCOSE (AUTOMATED) 2022-05-17 23:13:00 Ayo Alva [facility] POCT GLUCOSE (AUTOMATED) 2022-05-17 22:00:00 Ayo Alva [facility] POCT GLUCOSE (AUTOMATED) 2022-05-17 17:38:00 Ayo Alva [facility] POCT GLUCOSE (AUTOMATED) 2022-05-17 13:57:00 Ayo Alva [facility] BASIC METABOLIC PANEL (NA, K , CL, CO2, GLUCOSE, BUN, CREATININE, CA) 2022-05-17 07:42:00 Kenji [facility] CBC WITHOUT DIFF 2022-05-17 07:42:00 Kenji [facility] BASIC METABOLIC PANEL (NA, K , CL, CO2, GLUCOSE, BUN, CREATININE, CA) 2022-05-17 07:42:00 Kenji [facility] CBC WITHOUT DIFF 2022-05-17 07:42:00 Kenji [facility] POCT GLUCOSE (AUTOMATED) 2022-05-17 01:40:00 Ayo Alva [facility] POCT GLUCOSE (AUTOMATED) 2022-05-17 01:40:00 Ayo Alva [facility] POCT GLUCOSE (AUTOMATED) 2022-05-16 22:12:00 Ayo Alva [facility] POCT GLUCOSE (AUTOMATED) 2022-05-16 22:12:00 Ayo Alva [facility] COLONOSCOPY (ENDO) 2022-05-16 20:04:24 Kenji [facility] COLONOSCOPY (ENDO) 2022-05-16 20:04:24 Kenji [facility] EGD (ENDO) 2022-05-16 19:53:16 Kenji [facility] EGD (ENDO) 2022-05-16 19:53:16 Kenji [facility] COLONOSCOPY 2022-05-16 19:41:00 Ish [facility] ESOPHAGOGASTRODUODENOSCOPY 2022-05-16 19:41:00 Ish [facility] COLONOSCOPY 2022-05-16 19:41:00 Dm Deng [facility] ESOPHAGOGASTRODUODENOSCOPY 2022-05-16 19:41:00 Dm Deng [facility] POCT GLUCOSE (AUTOMATED) 2022-05-16 17:29:00 [facility] 2022-05-16 17:29:00 Chava Hurd [facility] CT ABDOMEN WO CONTRAST 2022-05-16 15:37:03 Katie Phillip [facility] CT ABDOMEN WO CONTRAST 2022-05-16 15:37:03 Kenji [facility] CBC WITHOUT DIFF 2022-05-16 15:29:00 Lorraine [facility] CBC WITHOUT DIFF 2022-05-16 15:29[facility] 2022-05-16 14:07:00 Chava Hurd [facility] POCT GLUCOSE (AUTOMATED) 2022-05-16 14:07:00 Chava Hurd [facility] MAGNESIUM 2022-05-16 11:26:00 Sofia [facility] BASIC METABOLIC PANEL (NA, K , CL, CO2, GLUCOSE, BUN, CREATININE, CA) 2022-05-16 11:26:00 Teto [facility] CBC WITHOUT DIFF 2022-05-16 11:26:00 Karla Peters [facility] MAGNESIUM 2022-05-16 11:26:00 Sofia [facility] BASIC METABOLIC PANEL (NA, K , CL, CO2, GLUCOSE, BUN, CREATININE, CA) 2022-05-16 11:26:00 Sofia [facility] CBC WITHOUT DIFF 2022-05-16 11:26[facility]-05-15 [facility]:07[facility] 2022-05-15 22:07:00 Vannessa [facility] CBC WITHOUT DIFF 2022-05-15 22:00[facility]00 [facility] 2022-05-15 22:00:00 Lorraine [facility] POCT GLUCOSE (AUTOMATED) 2022-05-15 17:49:00 Vannessa [facility] POCT GLUCOSE (AUTOMATED) 2022-05-15 17:49:00 Chava Hurd [facility] TRANSTHORACIC ECHO (TTE) COM PLETE W/ CONTRAST 2022-05-15 16:21:00 Lorraine [facility] TRANSTHORACIC ECHO (TTE) COM PLETE W/ CONTRAST 2022-05-15 16:21:00 Lorraine [facility] TRANSFUSE PACKED RBC 2022-05-15 14:45:00 Lorraine [facility] TRANSFUSE PACKED RBC 2022-05-15 14:45:00 Lorraine [facility] PREPARE PACKED RBC 2022-05-15 14:38:44 Lorraine [facility] PREPARE PACKED RBC 2022-05-15 14:38:44 Lorraine [facility] XR SHOULDER 2+ VW LEFT 2022-05-15 14:34:00 [facility] XR SHOULDER 2+ VW LEFT 2022-05-15 14:34:00 [facility] CBC WITHOUT DIFF 2022-05-15 13:47:00 [facility] CBC WITHOUT DIFF 2022-05-15 13:47:00 [facility] POCT GLUCOSE (AUTOMATED) 2022-05-15 13:45:00 Vannessa [facility] POCT GLUCOSE (AUTOMATED) 2022-05-15 13:45:00 Himanshu Hurdzad [facility] MAGNESIUM 2022-05-15 10:42:00 Sofia [facility] BASIC METABOLIC PANEL (NA, K , CL, CO2, GLUCOSE, BUN, CREATININE, CA) 2022-05-15 10:42:00 oSfia [facility] CBC WITHOUT DIFF 2022-05-15 10:42:00 [facility] MAGNESIUM 2022-05-15 10:42:00 Sofia [facility] BASIC METABOLIC PANEL (NA, K , CL, CO2, GLUCOSE, BUN, CREATININE, CA) 2022-05-15 10:42:00 Sofia [facility] CBC WITHOUT DIFF 2022-05-15 10:42:00 [facility] LIPID PANEL (24819)(TOTAL CHOLESTEROL, TRIGLYCERIDES, HDL) 2022-05-15 04:26:00 [facility] 2022-05-15 04:26:00 [facility] LIPID PANEL (10796)(TOTAL CHOLESTEROL, TRIGLYCERIDES, HDL) 2022-05-15 04:26:00 [facility]FF 2022-05-15 04:26:00 [facility] CBC WITHOUT DIFF 2022-05-14 21:37:00 [facility] CBC WITHOUT DIFF 2022-05-14 21:37:00 [facility] ABORH CONFIRMATION (LAB ONLY) 2022-05-14 19:21:00 Katie Phillip [facility] ABORH CONFIRMATION (LAB ONLY) 2022-05-14 19:21:00 Mt Phillipoja [facility] POCT GLUCOSE (AUTOMATED) 2022-05-14 18:51:00 Joey Baker [facility] POCT GLUCOSE (AUTOMATED) 2022-05-14 18:51:00 Joey Baker [facility] HB ABO GROUPING 2022-05-14 18:46:00 [facility] CBC WITHOUT DIFF 2022-05-14 18:46:00 Y[facility] HB ABO GROUPING 2022-05-14 18:46:00 Yon [facility] CBC WITHOUT DIFF 2022-05-14 18:46:00 Yon [facility] POCT GLUCOSE (AUTOMATED) 2022-05-14 15:46:00 Samuel Joey [facility] POCT GLUCOSE (AUTOMATED) 2022-05-14 15:46:00 Joey Baker [facility] N-TERMINAL PRO-BNP 2022-05-14 12:50:00 Kenji [facility] MAGNESIUM 2022-05-14 12:50:00 Phillip, [facility] HEPATIC FUNCTION PANEL (8007 6) (ALB,T.PRO,BILI T,BU/BC,ALT,AST,ALK PHOS) 2022-05-14 12:50:00 Phillip [facility] BASIC METABOLIC PANEL (NA, K , CL, CO2, GLUCOSE, BUN, CREATININE, CA) 2022-05-14 12:50:00 Phillip [facility] CBC WITH DIFF 2022-05-14 12:50:00 Phillip [facility] GLYCOSYLATED HEMOGLOBIN (A1C) 2022-05-14 12:50:00 Phillip [facility] PROTHROMBIN TIME / INR 2022-05-14 12:50:00 Phillip, [facility] N-TERMINAL PRO-BNP 2022-05-14 12:50:00 Kenji [facility] MAGNESIUM 2022-05-14 [facility] (8007 6) (ALB,T.PRO,BILI T,BU/BC,ALT,AST,ALK PHOS) 2022-05-14 12:50:00 Kenji [facility] BASIC METABOLIC PANEL (NA, K , CL, CO2, GLUCOSE, BUN, CREATININE, CA) 2022-05-14 12:50:00 Kenji [facility] CBC WITH DIFF 2022-05-14 12:50:00 [facility] GLYCOSYLATED HEMOGLOBIN (A1C) 2022-05-14 12:50:[facility] / INR 2022-05-14 12:50:[facility] 2022-05-14 06:01:00 Doctor Unassigned, [place] [facility] Encounters Start Date/Time End Date/Time Encounter Type Admission Type Attending Clinicians Care Facility Care Department Encounter ID Source 2022-07-21 00:00:00 2022-07-21 00:00:00 Jacquesluis HardenBritni bo [facility] 1.2.840.114 350.1.13.10 4.2.7.2.686 [id number] [facility] 2022-07-08 00:00:00 2022-07-08 00:00:00 Orders Only Doctor Unassigned, [place] [facility] 1.2.840.114 350.1.13.10 4.2.7.2.686 [id number] [facility] 2022-06-30 00:00:00 2022-06-30 00:00:00 Transition of Care Dora Murphy 1.2.840.114 350.1.13.10 4.2.7.2.686 [id number] [facility] 2022-06-28 02:44:00 2022-06-29 15:49:00 Outpatient U RANDY SY [facility] [id number] [facility] 2022-06-28 02:44:00 2022-06-29 15:49:00 Hospital Encounter Randy Sy [facility] 1.2.840.114 350.1.13.10 4.2.7.2.686 [id number] [facility] 2022-05-18 00:00:00 2022-05-18 00:00:00 Transition of Dora Raphael 1.2.840.114 350.1.13.10 4.2.7.2.686 [id number] [facility] 2022-05-14 04:59:00 2022-05-17 18:59:00 Hospital Encounter Joey Baker, Gregoria Coats, Fritz Hurd, Chava Alva, Ayo Alvarado [facility] 1.2.840.114 350.1.13.10 4.2.7.2.686 [id number] [facility] 2022-05-14 04:59:00 2022-05-17 18:59:00 Inpatient U EDI FRITZ [facility] [id number] [facility] 2022-05-16 15:07:00 2022-05-16 16:02:00 Surgery Dm Deng [facility] 1.2.840.114 350.1.13.10 4.2.7.2.686 [id number] [facility] 2022-04-27 00:00:00 2022-04-27 00:00:00 Outpatient DMG DMG [id number] [facility] 2022-04-27 00:00:00 2022-04-27 00:00:00 Outpatient DMG DMG [id number] [facility] 2022-04-27 00:00:00 2022-04-27 00:00:00 Outpatient DMG DMG [id number] [facility] 2022-04-27 00:00:00 2022-04-27 00:00:00 Outpatient DMG DMG [id number] [facility] 2022-04-27 00:00:00 2022-04-27 00:00:00 Outpatient DMG DMG [id number] [facility] 2022-04-27 00:00:00 2022-04-27 00:00:00 Outpatient DMG DMG [id number] [facility] 2022-04-27 00:00:00 2022-04-27 00:00:00 Outpatient DMG DMG [id number] [facility] 2022-04-27 00:00:00 2022-04-27 00:00:00 Outpatient DMG DMG [id number] [facility] 2022-02-24 00:00:00 2022-02-24 00:00:00 Outpatient DMG DMG [id number] [facility] Results Test Description Test Time Test Comments Results Result Co mments Source [facility] GLUCOSE (AUTOMATED)2022-06-29 15:35:16* Test Item Value Reference Range Interpretation Comme nts POCT GLU (test code = 8933485630) 167 mg/dL 70-110 H Lab Interpretation (test cod e = 88337-6) Abnormal [facility] GLUCOSE (AUTOMATED)2022-06-29 02:41:00* Test Item Value Reference Range Interpretation Comme nts POCT GLU (test code = 6037570333) 153 mg/dL 70-110 H Lab Interpretation (test cod e = 41275-2) Abnormal [facility] GLUCOSE (AUTOMATED)2022-06-28 23:12:05* Test Item Value Reference Range Interpretation Comme nts POCT GLU (test code = 7289070113) 158 mg/dL 70-110 H Lab Interpretation (test cod e = 36620-4) Abnormal [facility] GLUCOSE (AUTOMATED)2022-06-28 18:01:20* Test Item Value Reference Range Interpretation Comme nts POCT GLU (test code = 7228318032) 172 mg/dL 70-110 H Lab Interpretation (test cod e = 07309-3) Abnormal [facility] GLUCOSE (AUTOMATED)2022-06-28 15:58:01* Test Item Value Reference Range Interpretation Comme nts POCT GLU (test code = 5772851667) 153 mg/dL 70-110 H Lab Interpretation (test cod e = 43290-4) [facility] (ALB,T.PRO,BILI T,BU/BC,ALT,AST,ALK PHOS)2022-06-28 12:47:20* Test Item Value Reference Range Interpretation Comme nts TOTAL BILI (test code = 2870388207) 0.4 mg/dL 0.1-1.1 BILI UNCON (test code = 9872545510) 0.1 mg/dL 0.1-1.1 BILI CONJ (test code = 7459325166) 0.0 mg/dL 0.0-0.3 T PROTEIN (test code = 0989865652) 6.7 g/dL 6.3-8.2 ALBUMIN (test code = 6243672552) 3.6 g/dL 3.5-5.0 ALK PHOS (test code = 5118774990) 120 U/L 34-122 ALTv (test code = 1742-6) 17 U/L 5-50 AST(SGOT) (test code = 3828379512) 27 U/L 13-40 Lab Interpretation (test cod e = 53970-9) Normal [facility] METABOLIC PANEL (NA, K, CL, CO2, GLUCOSE, BUN, CREATININE, CA)2022-06-28 12:47:19* Test Item Value Reference Range Interpretation Comme nts NA (test code = 4295499732) 133 mmol/L 135-145 L K (test code = 7164193204) 4.0 mmol/L 3.5-5.0 CL (test code = 1841741777) 103 mmol/L 98-108 CO2 TOTAL (test code = 3309295392) 27 mmol/L 23-31 AGAP (test code = 5495332141) 2-16 BUN (test code = 3667247966) 45 mg/dL 7-23 H GLUCOSE (test code = 9806514785) 134 mg/dL 70-110 H CREATININE (test code = 2366794412) 1.18 mg/dL 0.60-1.25 CALCIUM (test code = 2139643317) 8.6 mg/dL 8.6-10.6 eGFR (test code = 8502435282) mL/min/1.73m2 PIPO (test code = PIPO) Association [...] imaging tests). Lab Interpretation (test code = 47873-7) [facility] [id number] 12:34:39 * Test Item Value Reference Range Interpretation Comme [facility] ABO & RH (test code = 20) O POSITIVE Performed at [facility] Laboratory Services - [facility] Blood [address] Free: [phone] No. [id number] IAT (test code = 1185) Negative Performed at [facility] Laboratory Services - [facility] Blood [address] Free: [phone] No. [id number] [facility] 12:28:19* Test Item Value Reference Range Interpretation Comme [facility] APTT Patient (test code = 3173-2) See_Comment [Automated MyVR] The system which generated this result transmitted reference range: 26 - 36 Seconds. The reference range was not used to interpret this result as normal/abnormal. Lab Interpretation (test code = 73972-7) [facility] / [id number] 12:28:18* Test Item Value Reference Range Interpretation Comme [facility] PROTIME PATIENT (test code = 5964-2) See_Comment [Automated MyVR] The system which generated this result transmitted reference range: 10.1 - 12.6 Seconds. The reference range was not used to interpret this result as normal/abnormal. INR (test code = 6301-6) Normal INR <1.1; Warfarin Therapeutic range 2.0 to 3.0 or 2.5 to 3.5, depending upon the indications. Lab Interpretation (test code = 20259-0) Normal [facility] WITH [id number] 12:26:17* Test Item Value Reference Range Interpretation [...] 33.3 g/dL 31.2-35.0 RDW-SD (test code = 36290-6) 49.7 fL 38.5-51.6 RDW-CV (test code = 788-0) 15.9 % 12.1-15.4 H PLT (test code = 777-3) See_Comment [Automated messa ge] The system which generated this result transmitted reference range: 150 - 328 10*3/?L. The reference range was not used to interpret this result as normal/abnormal. MPV (test code = 61183-7) 9.6 fL 9.8-13.0 L NRBC/100 WBC (test code = 2654957934) See_Comment [Automated [employer] ssage] The system which generated this result transmitted reference range: 0.0 - 10.0 /100 WBCs. The reference range was not used to interpret this result as normal/abnormal. NRBC x10^3 (test code = 7692400850) See_Comment [Automated messa ge] The system which generated this result transmitted reference range: 10*3/?L. The reference range was not used to interpret this result as normal/abnormal. GRAN MAT (NEUT) % (test code = 770-8) 67.6 % IMM GRAN % (test code = 9885543174) 0.70 % LYMPH % (test code = 736-9) 20.7 % MONO % (test code = 5905-5) 7.1 % EOS % (test code = 713-8) 3.5 % BASO % (test code = 706-2) 0.4 % GRAN MAT x10^3(ANC) (test code = 9425850393) 4.57 10*3/uL 1.99-6.95 IMM GRAN x10^3 (test code = 7537869378) 0.05 10*3/uL 0.00-0.06 LYMPH x10^3 (test code = 731-0) 1.40 10*3/uL 1.09-3.23 MONO x10^3 (test code = 742-7) 0.48 10*3/uL 0.36-1.02 EOS x10^3 (test code = 711-2) 0.24 10*3/uL 0.06-0.53 BASO x10^3 (test code = 704-7) 0.03 10*3/uL 0.01-0.09 Lab Interpretation (test code = 38469-1) Abnormal [facility] GLUCOSE (AUTOMATED)2022-05-17 23:15:41* Test Item Value Reference Range Interpretation Comme nts POCT GLU (test code = 0501418223) 348 mg/dL 70-110 H Lab Interpretation (test cod e = 94018-0) Abnormal [facility] GLUCOSE (AUTOMATED)2022-05-17 22:01:36* Test Item Value Reference Range Interpretation Comme nts POCT GLU (test code = 3388234376) 366 mg/dL 70-110 H Lab Interpretation (test cod e = 86444-1) Abnormal [facility] GLUCOSE (AUTOMATED)2022-05-17 17:39:43* Test Item Value Reference Range Interpretation Comme nts POCT GLU (test code = 3545395313) 253 mg/dL 70-110 H Lab Interpretation (test cod e = 53410-3) [facility] 13:58:09* Test Item Value Reference Range Interpretation Comme [facility] POCT GLU (test code = 9094194048) 194 mg/dL 70-110 H Lab Interpretation (test cod e = 76691-0) Abnormal [facility] METABOLIC PANEL (NA, K, CL, CO2, GLUCOSE, BUN, CREATININE, CA)2022-05-17 08:24:41* Test Item Value Reference Range Interpretation Comme [facility] NA (test code = 6596787236) 131 mmol/L 135-145 L K (test code = 2819258361) 3.4 mmol/L 3.5-5.0 L CL (test code = 6018383436) 98 mmol/L 98-108 CO2 TOTAL (test code = 1839941782) 31 mmol/L 23-31 AGAP (test code = 3255340886) 2-16 BUN (test code = 1341766947) 12 mg/dL 7-23 GLUCOSE (test code = 0305802138) 221 mg/dL 70-110 H CREATININE (test code = 3056730414) 0.75 mg/dL 0.60-1.25 CALCIUM (test code = 2642144286) 7.3 mg/dL 8.6-10.6 L eGFR (test code = 5037657667) mL/min/1.73m2 PIPO (test code = PIPO) Association [...] imaging tests). Lab Interpretation (test code = 88728-3) Abnormal [facility] METABOLIC PANEL (NA, K, CL, CO2, GLUCOSE, BUN, CREATININE, CA)2022-05-17 08:24:41* Test Item Value Reference Range Interpretation Comme nts NA (test code = 1059177140) 131 mmol/L 135-145 L K (test code = 8586183643) 3.4 mmol/L 3.5-5.0 L CL (test code = 4636700705) 98 mmol/L 98-108 CO2 TOTAL (test code = 6884679255) 31 mmol/L 23-31 AGAP (test code = 4362052324) 2-16 BUN (test code = 0077724133) 12 mg/dL 7-23 GLUCOSE (test code = 5536339669) 221 mg/dL 70-110 H CREATININE (test code = 1876598056) 0.75 mg/dL 0.60-1.25 CALCIUM (test code = 4414006040) 7.3 mg/dL 8.6-10.6 L eGFR (test code = 9083552707) mL/min/1.73m2 PIPO (test code = PIPO) Association [...] imaging tests). Lab Interpretation (test code = 27878-9) Abnormal [facility] WITHOUT [id number] 08:02:55* Test Item Value Reference Range Interpretation [...] result as normal/abnormal. MPV (test code = 40109-4) 9.5 fL 9.8-13.0 L RDW-CV (test code = 788-0) 14.5 % 12.1-15.4 RDW-SD (test code = 29164-6) 45.0 fL 38.5-51.6 NRBC x10^3 (test code = 1645816370) See_Comment [Automated messa ge] The system which generated this result transmitted reference range: 10*3/?L. The reference range was not used to interpret this result as normal/abnormal. NRBC/100 WBC (test code = 6246046468) See_Comment [Automated messa ge] The system which generated this result transmitted reference range: 0.0 - 10.0 /100 WBCs. The reference range was not used to interpret this result as normal/abnormal. IPF % (test code = 4055659892) Lab Interpretation (test code = 66140-4) Abnormal [facility] WITHOUT [id number] 08:02:55* Test Item Value Reference Range Interpretation [...] result as normal/abnormal. MPV (test code = 92011-4) 9.5 fL 9.8-13.0 L RDW-CV (test code = 788-0) 14.5 % 12.1-15.4 RDW-SD (test code = 59736-8) 45.0 fL 38.5-51.6 NRBC x10^3 (test code = 5473355725) See_Comment [Automated [employer]] The system which generated this result transmitted reference range: 10*3/?L. The reference range was not used to interpret this result as normal/abnormal. NRBC/100 WBC (test code = 2540948016) See_Comment [Automated [employer]] The system which generated this result transmitted reference range: 0.0 - 10.0 /100 WBCs. The reference range was not used to interpret this result as normal/abnormal. IPF % (test code = 1739784857) Lab Interpretation (test code = 52176-5) Abnormal [facility] GLUCOSE (AUTOMATED)2022-05-17 01:41:19* Test Item Value Reference Range Interpretation Comme nts POCT GLU (test code = 1447099775) 219 mg/dL 70-110 H Lab Interpretation (test cod e = 80871-6) Abnormal [facility] GLUCOSE (AUTOMATED)2022-05-17 01:41:19* Test Item Value Reference Range Interpretation Comme nts POCT GLU (test code = 5756141186) 219 mg/dL 70-110 H Lab Interpretation (test cod e = 66868-9) Abnormal [facility] GLUCOSE (AUTOMATED)2022-05-16 22:19:26* Test Item Value Reference Range Interpretation Comme nts POCT GLU (test code = 7920905355) 195 mg/dL 70-110 H Lab Interpretation (test cod e = 33694-4) Abnormal [facility] GLUCOSE (AUTOMATED)2022-05-16 22:19:26* Test Item Value Reference Range Interpretation Comme nts POCT GLU (test code = 6749545847) 195 mg/dL 70-110 H Lab Interpretation (test cod e = 60195-3) Abnormal [facility] GLUCOSE (AUTOMATED)2022-05-16 17:33:39* Test Item Value Reference Range Interpretation Comme nts POCT GLU (test code = 5017930967) 203 mg/dL 70-110 H Lab Interpretation (test cod e = 77238-3) Abnormal [facility] GLUCOSE (AUTOMATED)2022-05-16 17:33:39* Test Item Value Reference Range Interpretation Comme nts POCT GLU (test code = 6279432398) 203 mg/dL 70-110 H Lab Interpretation (test cod e = 88709-6) Abnormal [facility] WITHOUT [id number] 15:52:40* Test Item Value Reference Range Interpretation [...] result as normal/abnormal. MPV (test code = 69739-8) 9.5 fL 9.8-13.0 L RDW-CV (test code = 788-0) 15.0 % 12.1-15.4 RDW-SD (test code = 35352-0) 47.1 fL 38.5-51.6 NRBC x10^3 (test code = 1870556341) See_Comment [Automated messa ge] The system which generated this result transmitted reference range: 10*3/?L. The reference range was not used to interpret this result as normal/abnormal. NRBC/100 WBC (test code = 4809690343) See_Comment [Automated messa ge] The system which generated this result transmitted reference range: 0.0 - 10.0 /100 WBCs. The reference range was not used to interpret this result as normal/abnormal. IPF % (test code = 6343542300) Lab Interpretation (test code = 56838-7) Abnormal [facility] WITHOUT [id number] 15:52:40* Test Item Value Reference Range Interpretation [...] result as normal/abnormal. MPV (test code = 72093-7) 9.5 fL 9.8-13.0 L RDW-CV (test code = 788-0) 15.0 % 12.1-15.4 RDW-SD (test code = 23241-5) 47.1 fL 38.5-51.6 NRBC x10^3 (test code = 1329150003) See_Comment [Automated messa ge] The system which generated this result transmitted reference range: 10*3/?L. The reference range was not used to interpret this result as normal/abnormal. NRBC/100 WBC (test code = 8820052547) See_Comment [Automated messa ge] The system which generated this result transmitted reference range: 0.0 - 10.0 /100 WBCs. The reference range was not used to interpret this result as normal/abnormal. IPF % (test code = 5522154749) Lab Interpretation (test code = 13952-8) Abnormal [facility] GLUCOSE (AUTOMATED)2022-05-16 14:09:00* Test Item Value Reference Range Interpretation Comme nts POCT GLU (test code = 7796934032) 194 mg/dL 70-110 H Lab Interpretation (test cod e = 76309-9) Abnormal [facility] GLUCOSE (AUTOMATED)2022-05-16 14:09:00* Test Item Value Reference Range Interpretation Comme nts POCT GLU (test code = 2748275768) 194 mg/dL 70-110 H Lab Interpretation (test cod e = 84691-1) Abnormal [facility]2022-11-14 12:17:29* Test Item Value Reference Range Interpretation Comme nts MAGNESIUM (test code = 1564564490) 1.5 mg/dL 1.7-2.4 L Lab Interpretation (test cod e = 01341-8) Abnormal [facility]2022-11-14 12:17:29* Test Item Value Reference Range Interpretation Comme nts MAGNESIUM (test code = 8201447021) 1.5 mg/dL 1.7-2.4 L Lab Interpretation (test cod e = 36770-7) Abnormal [facility] METABOLIC PANEL (NA, K, CL, CO2, GLUCOSE, BUN, CREATININE, CA)2022-05-16 12:17:28* Test Item Value Reference Range Interpretation Comme nts NA (test code = 0650176148) 134 mmol/L 135-145 L K (test code = 8327311150) 3.5 mmol/L 3.5-5.0 CL (test code = 7860652235) 104 mmol/L 98-108 CO2 TOTAL (test code = 2534469719) 27 mmol/L 23-31 AGAP (test code = 4637952190) 2-16 BUN (test code = 0346069519) 23 mg/dL 7-23 GLUCOSE (test code = 4848715860) 179 mg/dL 70-110 H CREATININE (test code = 9197721922) 0.77 mg/dL 0.60-1.25 CALCIUM (test code = 8030569525) 7.5 mg/dL 8.6-10.6 L eGFR (test code = 7207916283) mL/min/1.73m2 PIPO (test code = PIPO) Association [...] imaging tests). Lab Interpretation (test code = 14615-1) Abnormal [facility] METABOLIC PANEL (NA, K, CL, CO2, GLUCOSE, BUN, CREATININE, CA)2022-05-16 12:17:28* Test Item Value Reference Range Interpretation Comme nts NA (test code = 1040258252) 134 mmol/L 135-145 L K (test code = 8867081287) 3.5 mmol/L 3.5-5.0 CL (test code = 1615421650) 104 mmol/L 98-108 CO2 TOTAL (test code = 9379275377) 27 mmol/L 23-31 AGAP (test code = 4437353177) 2-16 BUN (test code = 8253354834) 23 mg/dL 7-23 GLUCOSE (test code = 8847662929) 179 mg/dL 70-110 H CREATININE (test code = 7359724958) 0.77 mg/dL 0.60-1.25 CALCIUM (test code = 1248200195) 7.5 mg/dL 8.6-10.6 L eGFR (test code = 5588072906) mL/min/1.73m2 PIPO (test code = PIPO) Association [...] imaging tests). Lab Interpretation (test code = 21655-3) Abnormal [facility] WITHOUT [id number] 11:41:44* Test Item Value Reference Range Interpretation [...] result as normal/abnormal. MPV (test code = 53879-9) 9.6 fL 9.8-13.0 L RDW-CV (test code = 788-0) 15.0 % 12.1-15.4 RDW-SD (test code = 41023-3) 47.2 fL 38.5-51.6 NRBC x10^3 (test code = 7446041389) See_Comment [Automated messa ge] The system which generated this result transmitted reference range: 10*3/?L. The reference range was not used to interpret this result as normal/abnormal. NRBC/100 WBC (test code = 1390568305) See_Comment [Automated messa ge] The system which generated this result transmitted reference range: 0.0 - 10.0 /100 WBCs. The reference range was not used to interpret this result as normal/abnormal. IPF % (test code = 0522573479) Lab Interpretation (test code = 71963-9) Abnormal [facility] WITHOUT [id number] 11:41:44* Test Item Value Reference Range Interpretation [...] result as normal/abnormal. MPV (test code = 30873-4) 9.6 fL 9.8-13.0 L RDW-CV (test code = 788-0) 15.0 % 12.1-15.4 RDW-SD (test code = 22521-2) 47.2 fL 38.5-51.6 NRBC x10^3 (test code = 7654585576) See_Comment [Automated messa ge] The system which generated this result transmitted reference range: 10*3/?L. The reference range was not used to interpret this result as normal/abnormal. NRBC/100 WBC (test code = 9075215195) See_Comment [Automated [employer]] The system which generated this result transmitted reference range: 0.0 - 10.0 /100 WBCs. The reference range was not used to interpret this result as normal/abnormal. IPF % (test code = 1843524894) Lab Interpretation (test code = 46224-2) [facility] 22:32:10* Test Item Value Reference Range Interpretation Comme nts Height (test code = 6357712340) in Weight (test code = 0593004953) lbs Systolic BP (test code = 2419363488) mmHg Diastolic BP (test code = 3037351307) mmHg Heart Rate (test code = 4744934927) bpm Radiology Study observation (narrative) (test code = 19204-5) PIPO (test code = PIPO) ?Left?Ventricle: Left [...] mL of Lumason ultrasound enhancing agent [facility]. [facility] 22:32:10* Test Item Value Reference Range Interpretation Comme nts Height (test code = 9622001999) in Weight (test code = 7787938040) lbs Systolic BP (test code = 4339391967) mmHg Diastolic BP (test code = 9539631309) mmHg Heart Rate (test code = 8599042017) bpm Radiology Study observation (narrative) (test code = 53441-1) PIPO (test code = PIPO) ?Left?Ventricle: Left [...] mL of Lumason ultrasound enhancing agent used. [facility] WITHOUT [id number] 22:15:46* Test Item Value Reference Range Interpretation [...] result as normal/abnormal. MPV (test code = 24721-3) 9.7 fL 9.8-13.0 L RDW-CV (test code = 788-0) 15.2 % 12.1-15.4 RDW-SD (test code = 56819-2) 48.1 fL 38.5-51.6 NRBC x10^3 (test code = 1895399162) See_Comment [Automated messa ge] The system which generated this result transmitted reference range: 10*3/?L. The reference range was not used to interpret this result as normal/abnormal. NRBC/100 WBC (test code = 2936417417) See_Comment [Automated [employer]] The system which generated this result transmitted reference range: 0.0 - 10.0 /100 WBCs. The reference range was not used to interpret this result as normal/abnormal. IPF % (test code = 9611160606) Lab Interpretation (test code = 11527-7) Abnormal [facility] WITHOUT [id number] 22:15:46* Test Item Value Reference Range Interpretation [...] result as normal/abnormal. MPV (test code = 68568-5) 9.7 fL 9.8-13.0 L RDW-CV (test code = 788-0) 15.2 % 12.1-15.4 RDW-SD (test code = 27316-4) 48.1 fL 38.5-51.6 NRBC x10^3 (test code = 1434347057) See_Comment [Automated messa ge] The system which generated this result transmitted reference range: 10*3/?L. The reference range was not used to interpret this result as normal/abnormal. NRBC/100 WBC (test code = 3135914948) See_Comment [Automated messa ge] The system which generated this result transmitted reference range: 0.0 - 10.0 /100 WBCs. The reference range was not used to interpret this result as normal/abnormal. IPF % (test code = 6380428670) Lab Interpretation (test code = 10261-9) Abnormal [facility] GLUCOSE (AUTOMATED)2022-05-15 22:09:19* Test Item Value Reference Range Interpretation Comme nts POCT GLU (test code = 7889895298) 208 mg/dL 70-110 H Lab Interpretation (test cod e = 15907-8) Abnormal [facility] GLUCOSE (AUTOMATED)2022-05-15 22:09:19* Test Item Value Reference Range Interpretation Comme nts POCT GLU (test code = 7494898541) 208 mg/dL 70-110 H Lab Interpretation (test cod e = 78162-9) Abnormal [facility] GLUCOSE (AUTOMATED)2022-05-15 17:51:24* Test Item Value Reference Range Interpretation Comme nts POCT GLU (test code = 7565738599) 227 mg/dL 70-110 H Lab Interpretation (test cod e = 87164-8) Abnormal [facility] GLUCOSE (AUTOMATED)2022-05-15 17:51:24* Test Item Value Reference Range Interpretation Comme nts POCT GLU (test code = 0779992390) 227 mg/dL 70-110 H Lab Interpretation (test cod e = 78461-5) Abnormal [facility] Packed RBC (in units), 1 Units 2022-05-15 14:38:44* Test Item Value Reference Range Interpretation Comme nts Cross Match Result (test code = 4409) Compatible ISBT Blood Type Code (test code = 530076) Unit Blood Type (test code = 4410) O Pos Unit Number (test code = 4411) [id number] Blood Expiration Date & Time (test code = 378578) Status Information (test code = 4412) Issued Product Identification (test code = 4413) Red Blood Cells Product Code (test code = 4414) [id number] Performed at [facility] Blood [address] Free: [phone] No. [id number] [facility] Packed RBC (in units), 1 Units 2022-05-15 14:38:44* Test Item Value Reference Range Interpretation Comme nts Cross Match Result (test code = 4409) Compatible ISBT Blood Type Code (test code = 163191) Unit Blood Type (test code = 4410) O Pos Unit Number (test code = 4411) [id number] Blood Expiration Date & Time (test code = 761458) Status Information (test code = 4412) Issued Product Identification (test code = 4413) Red Blood Cells Product Code (test code = 4414) [id number] Performed at [facility] Blood [place] [id number] Free: [phone] No. [id number] [facility] GLUCOSE (AUTOMATED)2022-05-15 13:49:03* Test Item Value Reference Range Interpretation Comme [facility] POCT GLU (test code = 9803548201) 236 mg/dL 70-110 H Lab Interpretation (test cod e = 35047-2) Abnormal [facility] GLUCOSE (AUTOMATED)2022-05-15 13:49:03* Test Item Value Reference Range Interpretation Comme [facility] POCT GLU (test code = 2178779664) 236 mg/dL 70-110 H Lab Interpretation (test cod e = 69670-6) Abnormal [facility] METABOLIC PANEL (NA, K, CL, CO2, GLUCOSE, BUN, CREATININE, CA)2022-05-15 12:06:27* Test Item Value Reference Range Interpretation Comme [facility] NA (test code = 4972148898) 133 mmol/L 135-145 L K (test code = 8044227424) 4.1 mmol/L 3.5-5.0 CL (test code = 0264703614) 102 mmol/L 98-108 CO2 TOTAL (test code = 3774033709) 25 mmol/L 23-31 AGAP (test code = 1998710603) 2-16 BUN (test code = 2637484949) 46 mg/dL 7-23 H GLUCOSE (test code = 5545468390) 171 mg/dL 70-110 H CREATININE (test code = 9559517408) 1.02 mg/dL 0.60-1.25 CALCIUM (test code = 0619129063) 7.9 mg/dL 8.6-10.6 L eGFR (test code = 6042449245) mL/min/1.73m2 PIPO (test code = PIPO) Association [...] imaging tests). Lab Interpretation (test code = 18584-7) [facility] 12:06:27* Test Item Value Reference Range Interpretation Comme nts MAGNESIUM (test code = 7388832914) 1.7 mg/dL 1.7-2.4 Lab Interpretation (test cod e = 50326-7) [facility] (NA, K, CL, CO2, GLUCOSE, BUN, CREATININE, CA)2022-05-15 12:06:27* Test Item Value Reference Range Interpretation Comme nts NA (test code = 0266722828) 133 mmol/L 135-145 L K (test code = 9471057646) 4.1 mmol/L 3.5-5.0 CL (test code = 7330262063) 102 mmol/L 98-108 CO2 TOTAL (test code = 5312739273) 25 mmol/L 23-31 AGAP (test code = 5543633181) 2-16 BUN (test code = 4077264960) 46 mg/dL 7-23 H GLUCOSE (test code = 8492439913) 171 mg/dL 70-110 H CREATININE (test code = 2003423290) 1.02 mg/dL 0.60-1.25 CALCIUM (test code = 7347635342) 7.9 mg/dL 8.6-10.6 L eGFR (test code = 1037540684) mL/min/1.73m2 PIPO (test code = PIPO) Association [...] imaging tests). Lab Interpretation (test code = 41652-3) [facility] 12:06:27* Test Item Value Reference Range Interpretation Comme nts MAGNESIUM (test code = 7547562871) 1.7 mg/dL 1.7-2.4 Lab Interpretation (test cod e = 80758-6) Normal [facility] WITHOUT [id number] 11:24:49* Test Item Value Reference Range Interpretation [...] result as normal/abnormal. MPV (test code = 13637-2) 10.0 fL 9.8-13.0 RDW-CV (test code = 788-0) 14.4 % 12.1-15.4 RDW-SD (test code = 34928-2) 46.3 fL 38.5-51.6 NRBC x10^3 (test code = 7528855601) See_Comment [Automated messa ge] The system which generated this result transmitted reference range: 10*3/?L. The reference range was not used to interpret this result as normal/abnormal. NRBC/100 WBC (test code = 4087672024) See_Comment [Automated [employer]] The system which generated this result transmitted reference range: 0.0 - 10.0 /100 WBCs. The reference range was not used to interpret this result as normal/abnormal. IPF % (test code = 6043998618) Lab Interpretation (test code = 31829-7) Abnormal [facility] WITHOUT [id number] 11:24:49* Test Item Value Reference Range Interpretation [...] result as normal/abnormal. MPV (test code = 87688-8) 10.0 fL 9.8-13.0 RDW-CV (test code = 788-0) 14.4 % 12.1-15.4 RDW-SD (test code = 44911-9) 46.3 fL 38.5-51.6 NRBC x10^3 (test code = 5626912599) See_Comment [Automated [employer]] The system which generated this result transmitted reference range: 10*3/?L. The reference range was not used to interpret this result as normal/abnormal. NRBC/100 WBC (test code = 2615940401) See_Comment [Automated [employer] ge] The system which generated this result transmitted reference range: 0.0 - 10.0 /100 WBCs. The reference range was not used to interpret this result as normal/abnormal. IPF % (test code = 7340049870) Lab Interpretation (test code = 49767-3) [facility] (Total Cholesterol, Triglycerides, HDL) - [id number] 04:46:50* Test Item Value Reference Range Interpretation Comme nts CHOL (test code = 6213338773) 160 mg/dL 120-200 HDL (test code = 4481167883) 33 mg/dL See_Comment L [Automated [employer]] The system which generated this result transmitted reference range: >=40. The reference range was not used to interpret this result as normal/abnormal. HDLC RATIO (test code = 7968167547) See_Comment [Automated messa ge] The system which generated this result transmitted reference range: <=5.0. The reference range was not used to interpret this result as normal/abnormal. TRIG (test code = 6227847231) 215 mg/dL 30-170 H LDL CHOL (test code = 37720-8) 84 mg/dL See_Comment [Automated messa ge] The system which generated this result transmitted reference range: <=160. The reference range was not used to interpret this result as normal/abnormal. VLDL (test code = 9167706327) 43 mg/dL 5-60 Lab Interpretation (test code = 86423-8) [facility] (Total Cholesterol, Triglycerides, HDL) - [id number] 04:46:50* Test Item Value Reference Range Interpretation Comme nts CHOL (test code = 1477186886) 160 mg/dL 120-200 HDL (test code = 5220610989) 33 mg/dL See_Comment L [Automated messa ge] The system which generated this result transmitted reference range: >=40. The reference range was not used to interpret this result as normal/abnormal. HDLC RATIO (test code = 7335917602) See_Comment [Automated messa ge] The system which generated this result transmitted reference range: <=5.0. The reference range was not used to interpret this result as normal/abnormal. TRIG (test code = 8780891659) 215 mg/dL 30-170 H LDL CHOL (test code = 28234-1) 84 mg/dL See_Comment [Automated messa ge] The system which generated this result transmitted reference range: <=160. The reference range was not used to interpret this result as normal/abnormal. VLDL (test code = 9901899681) 43 mg/dL 5-60 Lab Interpretation (test code = 80027-1) [facility] [id number] 04:40:50* Test Item Value Reference Range Interpretation [...] result as normal/abnormal. MPV (test code = 94706-0) 9.9 fL 9.8-13.0 RDW-CV (test code = 788-0) 14.5 % 12.1-15.4 RDW-SD (test code = 08249-8) 47.1 fL 38.5-51.6 NRBC x10^3 (test code = 4103157998) See_Comment [Automated messa ge] The system which generated this result transmitted reference range: 10*3/?L. The reference range was not used to interpret this result as normal/abnormal. NRBC/100 WBC (test code = 8149227742) See_Comment [Automated messa ge] The system which generated this result transmitted reference range: 0.0 - 10.0 /100 WBCs. The reference range was not used to interpret this result as normal/abnormal. IPF % (test code = 0701946626) Lab Interpretation (test code = 60451-1) Abnormal [facility] WITHOUT [id number] 04:40:50* Test Item Value Reference Range Interpretation [...] result as normal/abnormal. MPV (test code = 12156-3) 9.9 fL 9.8-13.0 RDW-CV (test code = 788-0) 14.5 % 12.1-15.4 RDW-SD (test code = 33887-0) 47.1 fL 38.5-51.6 NRBC x10^3 (test code = 0347821653) See_Comment [Automated messa ge] The system which generated this result transmitted reference range: 10*3/?L. The reference range was not used to interpret this result as normal/abnormal. NRBC/100 WBC (test code = 5336345011) See_Comment [Automated messa ge] The system which generated this result transmitted reference range: 0.0 - 10.0 /100 WBCs. The reference range was not used to interpret this result as normal/abnormal. IPF % (test code = 4669524543) Lab Interpretation (test code = 79643-4) Abnormal [facility] WITHOUT [id number] 22:20:51* Test Item Value Reference Range Interpretation [...] result as normal/abnormal. MPV (test code = 68757-1) 9.9 fL 9.8-13.0 RDW-CV (test code = 788-0) 14.5 % 12.1-15.4 RDW-SD (test code = 86778-7) 47.2 fL 38.5-51.6 NRBC x10^3 (test code = 4860291813) See_Comment [Automated messa ge] The system which generated this result transmitted reference range: 10*3/?L. The reference range was not used to interpret this result as normal/abnormal. NRBC/100 WBC (test code = 1135813112) See_Comment [Automated messa ge] The system which generated this result transmitted reference range: 0.0 - 10.0 /100 WBCs. The reference range was not used to interpret this result as normal/abnormal. IPF % (test code = 4413965587) Lab Interpretation (test code = 19555-0) Abnormal [facility] WITHOUT [id number] 22:20:51* Test Item Value Reference Range Interpretation [...] result as normal/abnormal. MPV (test code = 62982-1) 9.9 fL 9.8-13.0 RDW-CV (test code = 788-0) 14.5 % 12.1-15.4 RDW-SD (test code = 89062-0) 47.2 fL 38.5-51.6 NRBC x10^3 (test code = 2839229097) See_Comment [Automated messa ge] The system which generated this result transmitted reference range: 10*3/?L. The reference range was not used to interpret this result as normal/abnormal. NRBC/100 WBC (test code = 1772532548) See_Comment [Automated messa ge] The system which generated this result transmitted reference range: 0.0 - 10.0 /100 WBCs. The reference range was not used to interpret this result as normal/abnormal. IPF % (test code = 8117901727) Lab Interpretation (test code = 99349-9) [facility] Only)2022-05-14 21:04:17* Test Item Value Reference Range Interpretation Comme nts ABO & RH (test code = 20) O Positive Performed at [facility] Laboratory [address] Free: [phone] No. [id number] [facility] Confirmation (Lab Only)2022-05-14 21:04:17* Test Item Value Reference Range Interpretation Comme nts ABO & RH (test code = 20) O Positive Performed at [facility] Laboratory [address] Free: [phone] No. [id number] [facility] - ONCE [id number] 19:35:37 * Test Item Value Reference Range Interpretation Comme nts ABO & RH (test code = 20) O POSITIVE Performed at [address] Free: [phone] No. [id number] IAT (test code = 1185) Negative Performed at [address] Free: [phone] No. [id number] [facility] and Screen - ONCE [id number] 19:35:37 * Test Item Value Reference Range Interpretation Comme nts ABO & RH (test code = 20) O POSITIVE Performed at [facility] Laboratory [address] Free: [phone] No. [id number] IAT (test code = 1185) Negative Performed at [facility] Laboratory [address] Free: [phone] No. [id number] [facility]2022-[facility]-14 19:01:40* Test Item Value Reference Range Interpretation Comme nts POCT GLU (test code = 6748778680) 199 mg/dL 70-110 H Lab Interpretation (test cod e = 34184-4) Abnormal [facility] GLUCOSE (AUTOMATED)2022-05-14 19:01:40* Test Item Value Reference Range Interpretation Comme nts POCT GLU (test code = 0575241961) 199 mg/dL 70-110 H Lab Interpretation (test cod e = 60793-0) Abnormal [facility] GLUCOSE (AUTOMATED)2022-05-14 15:51:56* Test Item Value Reference Range Interpretation Comme nts POCT GLU (test code = 5753953799) 243 mg/dL 70-110 H Lab Interpretation (test cod e = 88413-7) Abnormal [facility] GLUCOSE (AUTOMATED)2022-05-14 15:51:56* Test Item Value Reference Range Interpretation Comme nts POCT GLU (test code = 0715479693) 243 mg/dL 70-110 H Lab Interpretation (test cod e = 03131-2) Abnormal [facility]"
[2023-10-06 16:43] LABS: Absolute Basophils 0.2 K/uL (0-0.5); Absolute Eosinophils 0.2 K/uL (0-0.5); Absolute Lymphocytes (CBC) 0.8 K/uL (0.7-4.9); Absolute Monocytes 1.3 K/uL (0.1-1.3); Absolute Neutrophil 14.3 K/uL (1.8-8.0); Hematocrit 25.5 % (39.6-49.0); Hemoglobin 8.5 g/dL (13.6-17.9); Lymphocytes % 4.9 % (15.3-44.8); MCH 25.7 pg (27.0-35.0); MCHC 33.2 g/dL (32.0-36.0); MCV 77.4 fL (80-100); MPV 7.6 fL (7.6-11.3); Monocytes % 7.9 % (3.3-12.3); Neutrophils % 85.2 % (41.7-73.7); Nucleated Red Blood Cells % 0.1 % (0-0); Platelets 414 thou/uL (152-406); RBC Red Blood Cell Count 3.29 M/uL (4.33-5.43); Red Cell Distribution Width 20.6 % (12.1-15.2)
--- NOTE | 2023-10-06 16:57 | RAD REPORT ---
EXAM DESCRIPTION: US - Lower Extremity Arterial Bilat - 10/06/2023 4:38 pm CLINICAL HISTORY: discoloration COMPARISON: None FINDINGS: Color Doppler, grayscale, and spectral analysis was performed. The common femoral, superficial femoral and popliteal arteries bilaterally demonstrate monophasic wav eforms The posterior tibial and dorsalis pedis arteries demonstrate monophasic waveforms bilaterally. IMPRESSION: Monophasic waveforms in the bilateral lower extremities could reflect more proximal mode rate to severe stenoses such as at the iliac vessels.
--- NOTE | 2023-10-06 17:33 | ER ---
Nurse's Notes [facility] Name: Thom Wright Age: 62 yrs Sex: Male : 1960 Arrival Date: 10/06/2023 Time: 15:58 Bed 6 Private MD: Diagnosis: Atherosclerosis of [place] arteries of extremities with gangrene, right leg Presentation: 10/05 16:11 Chief complaint: EMS states: patient is having continued concern to the discoloration ap3 of his right lower extremity. Coronavirus screen: At this time, the client does not indicate any symptoms associated with coronavirus-19. Ebola Screen: No symptoms or risks identified at this time. Initial Sepsis Screen: Does the patient meet any 2 criteria? No. Patient's initial sepsis screen is negative. Does the patient have a suspected source of infection? No. Patient's initial sepsis screen is negative. Risk Assessment: Do you want to hurt yourself or someone else? Patient reports no desire to harm self or others. Onset of symptoms is unknown. Care prior to arrival: IV initiated. 20 GA, in the right forearm, Oxygen administered. via nasal cannula. 16:11 Method Of Arrival: EMS: [facility] ap3 16:11 Acuity: SONIA 3 ap3 Triage Assessment: 16:14 General: Appears in no apparent distress. Behavior is calm, cooperative. Pain: ap3 Complains of pain in right leg and left leg. Neuro: Level of Consciousness is awake, alert, obeys commands, Oriented to person, place, time, situation. Cardiovascular: Patient's skin is warm and dry. Cardiovascular: Pulses are absent in right dorsalis pedis artery. Respiratory: Airway is patent Respiratory effort is even, unlabored, Respiratory pattern is regular, symmetrical. Derm: skin is dusking and black in color on right lower extremity. Historical: - Allergies: 16:13 NKDA; ap3 - PMHx: 16:13 COPD; CVA; diabetes mellitus; Hypertensive disorder; OH; Pancreatitis; peripheral ap3 vascular disease; stent; stroke ( deficit left side paralysis); - PSHx: 16:13 Carotid endarterectomy; Femoral bypass; ap3 - Immunization history:: Adult Immunizations up to date. - Infectious Disease History:: Denies. - Social history:: Smoking status: Patient reports the use of cigarette tobacco products, smokes two packs cigarettes per day. - Family history:: not pertinent. - Hospitalizations: : No recent hospitalization is reported. Screenin:15 Abuse screen: Denies threats or abuse. Nutritional screening: No deficits noted. ap3 Tuberculosis screening: No symptoms or risk factors identified. 16:38 [facility] ED Fall Risk Assessment (Adult) History of falling in the last 3 months, ko1 including since admission Yes- single mechanical fall (1 pt) Confusion or Disorientation No (0 pts) Intoxicated or Sedated No (0 pts) Impaired Gait No (0 pts) Mobility Assist Device Used No (0 pt) Altered Elimination No (0 pt) Score/Fall Risk Level 0 - 2 = Low Risk Oriented to surroundings, Maintained a safe environment, Educated pt \T\ family on fall prevention, incl call for assistance when getting out of bed, Assessed \T\ reinforced patient's understanding of fall precautions, Provided non-skid footwear, Hourly rounding (assess needs \T\ fall precautionary measures) done, Used ambulatory aids as needed (educated on \T\ assisted with), Used gait belt as appropriate. Assessment: 16:38 General: Appears obese, unkempt, Behavior is cooperative, appropriate for age. Pain: ko1 Complains of pain in right leg. Neuro: No deficits noted. Cardiovascular: No deficits noted. Respiratory: No deficits noted. GI: No deficits noted. : No deficits noted. EENT: No deficits noted. Derm: Reports pain. Musculoskeletal: Reports pain in right leg. 18:49 Reassessment: Patient and/or family updated on plan of care and expected duration. Pain ap3 level reassessed. Patient is alert, oriented x 3, equal unlabored respirations, skin warm/dry/pink. General: Appears in no apparent distress. Neuro: Level of Consciousness is awake, alert, obeys commands, Oriented to person, place, time, situation. Respiratory: Airway is patent Respiratory effort is even, unlabored, Respiratory pattern is regular, symmetrical. Vital Signs: 16:11 BP 100 / 53; Pulse 77; Resp 20; Pulse Ox 94% on 2 lpm NC; Weight 97.98 kg; ap3 16:30 BP 104 / 48; Pulse 75; Resp 16; Pulse Ox 98% ; ko1 17:00 BP 111 / 47; Pulse 76; Resp 16; Temp 98(T); Pulse Ox 94% ; ko1 ED Course: 16:03 Patient arrived in ED. rn 16:03 Adan Mace MD is Attending Physician. rn 16:11 Marcia Sullivan, RN is Primary Nurse. ap3 16:13 Triage completed. ap3 16:15 Arm band placed on left wrist. ap3 16:15 Patient has correct armband on for positive identification. Bed in low position. Call ap3 light in reach. Side rails up X2. monitor technician on. Pulse ox on. NIBP on. 16:15 Maintain EMS IV. Dressing intact. Good blood return noted. Site clean \T\ dry. Gauge \T\ ap 3 site: 20g right FA. 16:24 Protime (+inr) Sent. ko1 16:24 Ptt, Activated Sent. ko1 16:24 CBC with Diff Sent. ko1 16:38 Provided Education on: NA. Door closed. Noise minimized. Lights dimmed. Warm blanket ko1 given. 16:40 Lower Extremity Arterial Bilat US In Process Unspecified. EDMS 17:15 Lab(s) recollected, by me, sent to lab. ab3 17:19 Vascular, at for consult. Pt visited by. ab3 17:33 Ba Dsouza MD is Hospitalizing Provider. rn Administered Medications: 18:31 Drug: vancoMYCIN IVPB 1 grams IVPB once over 2 hrs Route: IVPB; Infused Over: 2 hrs; ap3 Site: right antecubital; Medication: 16:38 VIS not applicable for this client. ko1 Outcome: 17:33 Decision to Hospitalize by Provider. rn 19:45 Patient left the ED. cm10 Signatures: Dispatcher [employer] EDMS Adan Mace MD MD rn Prokisch, Amanda, RN RN ap3 Brie Elizabeth RN RN ko1 Rosie Clifton RN RN cm10 Esther Padgett, RN RN ab3 Corrections: (The following items were deleted from the chart) 18:16 16:24 BASIC METABOLIC PANEL+C.LAB.BRZ drawn and sent. ko1 EDMS 18:46 17:00 BP 111 / 47; Pulse 76bpm; Resp 16bpm; Pulse Ox 94%; ko1 ko1
--- NOTE | 2023-10-06 17:33 | EDPHYS ---
Physician Documentation [facility] Name: Thom Wright Age: 62 yrs Sex: Male : 1960 Arrival Date: 10/06/2023 Time: 15:58 Bed 6 Private MD: ED Physician Adan Mace HPI: 10/05 17:24 This 62 yrs old Male presents to ER via EMS with complaints of foot discoloration. rn 17:25 The complaints affect the anterior aspect of right ankle and dorsum of right foot. rn Onset: The symptoms/episode began/occurred 2 day(s) ago. Modifying factors: The symptoms are alleviated by nothing. the symptoms are aggravated by nothing. Severity of symptoms: At their worst the symptoms were moderate, in the emergency department the symptoms are unchanged. Patient reports discharged from the hospital few days ago, since he has been home has noticed increased discoloration of the right foot and right lower extremity. No new wounds. No progression of existing dry gangrene. No fever. No drainage. Sees Dr. Matos for vascular.. Historical: - Allergies: 16:13 NKDA; ap3 - PMHx: 16:13 COPD; CVA; diabetes mellitus; Hypertensive disorder; ME; Pancreatitis; peripheral ap3 vascular disease; stent; stroke ( deficit left side paralysis); - PSHx: 16:13 Carotid endarterectomy; Femoral bypass; ap3 - Immunization history:: Adult Immunizations up to date. - Infectious Disease History:: Denies. - Social history:: Smoking status: Patient reports the use of cigarette tobacco products, smokes two packs cigarettes per day. - Family history:: not pertinent. - Hospitalizations: : No recent hospitalization is reported. ROS: 17:25 Constitutional: Negative for fever, chills, and weight loss, Cardiovascular: Negative rn for chest pain, palpitations, and edema, Respiratory: Negative for shortness of breath, cough, wheezing, and pleuritic chest pain, Abdomen/GI: Negative for abdominal pain, nausea, vomiting, diarrhea, and constipation, MS/Extremity: Positive for discoloration of the right lower extremity Exam: 17:25 Constitutional: Disheveled patient, no acute distress Cardiovascular: Regular rate rn and rhythm. Respiratory: No increased work of breathing, no retractions or nasal flaring. Abdomen/GI: Soft, no distention, no pulsatile masses MS/ Extremity: Dusky and cyanotic right lower extremity from distal pretibial region to right foot and ankle. Dry gangrene of right great toe. No foul smell or open wounds. No drainage Neuro: Awake and alert, GCS 15 Vital Signs: 16:11 BP 100 / 53; Pulse 77; Resp 20; Pulse Ox 94% on 2 lpm NC; Weight 97.98 kg; ap3 16:30 BP 104 / 48; Pulse 75; Resp 16; Pulse Ox 98% ; ko1 17:00 BP 111 / 47; Pulse 76; Resp 16; Temp 98(T); Pulse Ox 94% ; ko1 MDM: 16:03 Patient medically screened. rn 17:24 Management of patient was discussed with the following: Laboratory Phlebotomist: tiki Torres and rn evaluated patient, recommends admission to the hospital with IV antibiotics, general surgery consultation for dry gangrene of the right great toe and he plans on taking to [facility] for revascularization Monday morning.. 17:25 Differential diagnosis: S vascular occlusion, severe peripheral arterial disease, dry rn gangrene, cellulitis. 17:32 Data reviewed: vital signs, nurses notes, lab test result(s), radiologic studies, rn ultrasound, and as a result, I will admit patient. Consideration of Admission/Observation Patient was admitted/placed on observation. Escalation of care including admission/observation considered. Care significantly affected by the following chronic conditions: Diabetes, Chronic Obstructive Pulmonary Disease. Counseling: I had a detailed discussion with the patient and/or guardian regarding the historical points, exam findings, and any diagnostic results supporting the discharge/admit diagnosis, lab results, radiology results, the need for further work-up and treatment in the hospital. 10/05 16:05 Order name: CBC with Diff rn 10/05 16:05 Order name: Protime (+inr) rn 10/05 16:05 Order name: Ptt, Activated rn 10/05 16:49 Order name: CBC Smear Scan EDMS 10/05 17:29 Order name: Blood Culture Adult (2) rn 10/05 17:29 Order name: CMP rn 10/05 17:29 Order name: Lactate w/ 2H reflex if indic. rn 10/05 18:26 Order name: Urinalysis w/ reflexes EDMS 10/05 18:26 Order name: CBC with Automated Diff EDOH 10/05 18:26 Order name: CBC with Automated Diff EDOH 10/05 18:26 Order name: Comprehensive Metabolic Panel EDOH 10/05 18:26 Order name: Comprehensive Metabolic Panel EDOH 10/05 16:04 Order name: Lower Extremity Arterial Bilat US; Complete Time: 17:00 rn 10/05 17:36 Order name: Lower Ext Angio EDOH 10/05 17:47 Order name: Abdomen Angio EDOH 10/05 17:49 Order name: Pelvis Angio EDOH 10/05 16:05 Order name: IV Start; Complete Time: 16:24 rn 10/05 17:29 Order name: Accucheck; Complete Time: 17:38 rn 10/05 17:29 Order name: Cardiac monitoring; Complete Time: 17:38 rn 10/05 17:29 Order name: EKG - Nurse/Tech; Complete Time: 19:02 rn 10/05 17:29 Order name: IV Saline Lock - Large Bore; Complete Time: 17:38 rn 10/05 17:29 Order name: Labs collected and sent; Complete Time: 18:32 rn 10/05 17:29 Order name: O2 Per Protocol; Complete Time: 17:38 rn 10/05 17:29 Order name: O2 Sat Monitoring; Complete Time: 17:38 rn 10/05 17:29 Order name: Vital Signs; Complete Time: 17:38 rn 10/05 17:35 Order name: Labs - recollect needed: green top please; Complete Time: 18:36 hb Administered Medications: 18:31 Drug: vancoMYCIN IVPB 1 grams IVPB once over 2 hrs Route: IVPB; Infused Over: 2 hrs; ap3 Site: right antecubital; Disposition Summary: 10/06/23 17:33 Hospitalization Ordered Notes: Hospitalization Status: Inpatient Admission rn Provider: Ba Dsouza rn Location: Telemetry/MedSurg (Inpatient) rn Condition: Stable rn Problem: new rn Symptoms: are unchanged rn Bed/Room Type: Standard rn Room Assignment: 411(10/06/23 18:39) jr12 Diagnosis - Atherosclerosis of [place] arteries of extremities with gangrene, right leg rn Forms: - Medication Reconciliation Form rn - SBAR form rn - Leadership Thank You Letter rn Signatures: [facility] Adan Mace MD MD rn Baxter, Heather, RN RN Marcia Sullivan RN RN ap3 Brie Elizabeth, RN RN ko1 Coby Herron jr12 Corrections: (The following items were deleted from the chart) 17:02 17:02 Angio Aorta For Dissection+CT.RAD.BRZ ordered. EDMS EDMS 17:29 17:29 BLOOD CULTURE*+BA.LAB.BRZ ordered. EDMS EDMS 17:29 17:29 COMPREHENSIVE METABOLIC PANEL+C.LAB.BRZ ordered. EDMS EDMS 17:29 17:29 LACTATE+C.LAB.BRZ ordered. EDMS EDMS 17:47 17:36 CT ANGIO ABD/PELVIS W CONTRAST ordered. EDMS EDMS 18:16 16:05 BASIC METABOLIC PANEL+C.LAB.BRZ ordered. EDMS EDMS 18:39 17:33 rn jr12
[2023-10-06 17:34] LABS: PTT, Activated Partial Thromb 32.1 SECONDS (24.3-36.9); Protime INR 1.19
[2023-10-06 17:43] LABS: Anisocytosis 1+; Blood Morphology Comment NOTED (NOT SEEN); Platelet Estimate INCR; White Blood Cell Scan OK (OK)
[2023-10-06] MEDS ORDERED: VANCOMYCIN 1 GM/VIAL ONE (18:19)
[2023-10-06] MEDS ORDERED: NA CHLORIDE 0.9% 250 ML ONE (18:20)
[2023-10-06] MEDS ORDERED: ONDANSETRON 4 MG/2 ML VIAL IV PRN (18:21)
--- NOTE | 2023-10-06 18:21 | P.HP ---
Certification for Inpatient Patient admitted to: Inpatient With expected LOS: >2 Midnights Practitioner: I am a practitioner with admitting privileges, knowledge of patient current condition, hospital course, and medical plan of care. Services: Services provided to patient in accordance with Admission requirements found in Title 42 Section 412.3 of the Code of Federal Regulations Patient History Date of Service: 10/06/23 Reason for admission: Foot ulceration History of Present Illness: 62 yrs old Male with past medical history of diabetes, hypertension, hyperlipidemia, peripheral arterial disease, status post stent, status post left femoropopliteal bypass, history of CVA with left-sided weakness, COPD, history of carotid artery stenosis status post carotid endarterectomy who was brought to ER with complaints of Right foot discoloration. The complaints affect the anterior aspect of right ankle and dorsum of right foot. Started 2 days ago and has been progressively worsening. Patient was recently being discharged from the hospital a few days ago and ever since then he noticed increased discoloration of the right foot and right lower extremity. Denies any fever or chills. No sick contacts. Followed by Dr. Dr Matos for vascular surgery. Patient was assessed in the ER and was admitted for further management of right foot gangrene Allergies No Known Allergies Allergy (Verified 03/02/22 21:58) Home medications list reviewed: Yes Home Medications: Clopidogrel Bisulfate [Plavix*] 75 mg PO BEDTIME #30 tab 03/15/22 Insulin Detemir [Levemir] 24 unit SQ BID 04/18/22 Metoprolol Tartrate [Lopressor*] 50 mg PO BID 6AM 6PM #60 tab 04/24/22 Altace 1.25 1.25 mg PO BEDTIME 09/29/23 Atorvastatin Calcium [Lipitor] 80 mg PO BEDTIME 09/29/23 Dapagliflozin Propanediol [Farxiga] 10 mg PO DAILY 09/29/23 Furosemide [Lasix*] 40 mg PO BIDL 09/29/23 Gabapentin 300 mg PO BID 09/29/23 Hydrocodone/Acetaminophen [Hydrocodone-Acetamin 7.5-325] 1 each PO BIDP PRN 09/29/23 Insulin Aspart [Novolog Flexpen] 6 unit SQ AC 09/29/23 Sitagliptin Phosphate [Januvia] 100 mg PO DAILY 09/29/23 Trazodone [Desyrel*] 50 mg PO BEDTIME 09/29/23 cilostazoL [Cilostazol] 100 mg PO BID 09/29/23 predniSONE [Prednisone*] 5 mg PO SEECOM 09/29/23 Losartan Potassium [Cozaar*] 50 mg PO BID #60 tab 10/03/23 Nifedipine Xl [Procardia XL*] 60 mg PO DAILY #30 tab 10/03/23 Pantoprazole [Protonix Tab*] 40 mg PO BIDAC #60 tab 10/03/23 - Past Medical/Surgical History Diabetic: Yes Past Medical History: Reviewed- Non-Contributory -: Diabetes mellitus type 2not insulin-dependent -: Hypertension -: Unknown additional history -: CVA x3 Past Surgical History: Reviewed- Non-Contributory -: carotid surgery -: CVA x3 -: Peripheral arterial disease with stent placement Psychosocial/ Personal History: Patient lives at home with his , family - Family History Family History: Reviewed- Non-Contributory - Social History Smoking Status: Current every day smoker Alcohol use: No CD- Drugs: No Caffeine use: Yes Review of Systems 10-point ROS is otherwise unremarkable Physical Examination - Vital Signs Temperature: 98.2 F Blood Pressure: 126/86 Pulse: 78 Respirations: 19 Pulse Ox (%): 96 - Physical Exam General: Alert, In no apparent distress HEENT: Atraumatic, Normocephalic Neck: Supple, 2+ carotid pulse no bruit, No LAD Respiratory: Clear to auscultation bilaterally, Normal air movement Cardiovascular: Abnormal pulses, Irregular heart rate/rhythm, Abnormal S1 S2 Capillary refill: <2 Seconds Gastrointestinal: Normal bowel sounds, Soft and benign, W/out hepatosplenomegaly Musculoskeletal: No clubbing, No swelling, Erythema, Tenderness Integumentary: Tenderness/swelling, Erythema, Cyanosis, Arterial ulcer, Other (Right foot big toe necrotic ) Neurological: Normal gait, Normal speech, Normal strength at 5/5 x4 extr Lymphatics: No axilla or inguinal lymphadenopathy - Studies Laboratory Data (last 24 hrs) 10/06/23 10/06/23 10/06/23 17:15 17:15 16:20 WBC 16.80 H Hgb 8.5 L Hct 25.5 L Plt Count 414 H PT 13.0 H INR 1.19 APTT 32.1 Sodium Cancelled Potassium Cancelled BUN Cancelled Creatinine Cancelled Glucose Cancelled Imagings Data: FINDINGS: Color Doppler, grayscale, and spectral analysis was performed. The common femoral, superficial femoral and popliteal arteries bilaterally demonstrate monophasic waveforms The posterior tibial and dorsalis pedis arteries demonstrate monophasic waveforms bilaterally. IMPRESSION: Monophasic waveforms in the bilateral lower extremities could reflect more proximal moderate to severe stenoses such as at the iliac vessels. CTA of the abdomen, pelvis, and bilateral lower extremities was performed with intravenous contrast. All CT scans are performed using dose optimization technique as appropriate and may include automated exposure control or mA/KV adjustment according to patient size. FINDINGS: Lower chest: No acute abnormality. Liver: No acute abnormality or suspicious lesions. Biliary: No biliary ductal dilatation. Stomach: No significant focal abnormality. Duodenum: No significant focal abnormality. Pancreas: No significant abnormality. Spleen: No significant abnormality. Adrenal: No suspicious lesions. Kidney/ureter: No hydronephrosis. No renal calculi. Bilateral hydronephrosis. Renal cortical thinning. Too small to characterize and/or benign appearing renal lesions are noted. Retroperitoneum: No retroperitoneal adenopathy. Bowel: Large stool burden in the sigmoid and rectum.. Peritoneum: No ascites or free air. Bladder: Circumferential thickening of the bladder. Reproductive: Prostatomegaly. Bones: No acute fracture. Vascular: Abdominal aorta: Atherosclerotic changes. No aneurysm. Severe stenosis at the SMA. Probable moderate to severe stenoses of the bilateral renal arteries. Celiac trunk is pat ent. Iliac arteries: Moderately calcified common and external iliac arteries. Probably moderate stenosis at the distal left common iliac artery and proximal external iliac artery. Moderate stenosis of the left distal external iliac artery. Right lower extremity: Right common femoral artery: Severe stenosis distally. Right superficial femoral artery: A right SFA stent is present that appears occl uded as is much of the right SFA. Right popliteal artery: Multifocal stenoses without occlusion. Right runoff vessels: All 3 vessels are patent. Left lower extremity: Left common femoral artery: Severely narrowed proximally left femoropopliteal bypass. The left common femoral artery is patent. Left superficial femoral artery: Long segment occlusion of the left SFA. Left popliteal artery: Diminutive but patent. Left runoff vessels: The posterior tibial artery is diminutive but patent. The anterior tibial artery is likely patent but diminutive. The posterior tibial artery is diminutive and may have multifocal occlusions. IMPRESSION: 1. Right lower extremity: Severe stenosis at the distal right common femoral artery with long segment occlusion of the right SFA stent and artery. Three-vessel runoff . 2. Left lower extremity: Moderate stenosis at the left distal common/proximal external iliac artery as well as distally at the left external iliac artery. A left femoropopliteal bypass gr aft is present which has a severe stenosis proximally but is otherwise patent. The left SFA is occluded along much of its course. Two of the runoff vessels are patent. 3. Mild bilateral hydronephrosis. Circumferential bladder wall thickening may be secondary to chronic bladder outlet obstruction Assessment and Plan - Problems (Diagnosis) (1) Gangrene of right foot Current Visit: Yes Status: Acute Plan: Right foot gangrene ordered Will consult general surgery Pain control Started on IV antibiotics for possible secondary infection. Doppler findings noted Will get a CT of the lower extremity and runoff Continue home medications include aspirin and Plavix Vascular surgery consulted (2) PAD (peripheral artery disease) Current Visit: No Status: Acute Plan: Peripheral artery disease Continue home medications including aspirin statin and Plavix Consulted Dr. Matos CT findings started Consistent with peripheral artery disease May need further interventions to open the arterial flow Pain control (3) CAD (coronary artery disease) Current Visit: No Status: Chronic Plan: Continue home medications and titrate as needed Monitor under telemetry (4) Diabetes Current Visit: No Status: Chronic Plan: Insulin sliding scale Accu-Chek before every meal and at bedtime Will get an A1c in a.m. (5) ANA (acute kidney injury) Current Visit: Yes Status: Acute Plan: Acute kidney injury noted Patient had a CTA Will add on fluids in moderation Nephrology consulted CT abdomen findings noted Possible obstructive uropathy noted Monitor urine output Discharge Plan: Home Plan to discharge in: Greater than 2 days - Advance Directives Does patient have a Living Will: No Does patient have a Durable POA for Healthcare: No - Code Status/Comfort Care Code Status: Full Code Time Spent Managing Pts Care (In Minutes): 58
[2023-10-06 18:29] LABS: Albumin 2.4 g/dL (3.4-5.0); Albumin/Globulin Ratio 0.4 (1.1-1.8); Bilirubin Total 0.3 mg/dL (0.2-1.0); Globulin 5.4 g/dL (2.3-3.5); Protein, Total 7.8 g/dL (6.4-8.2)
[2023-10-06] MEDS ORDERED: Oxycodone HCl/Acetaminophen 5/325 MG TAB PO PRN (19:33)
[2023-10-06] MEDS: VANCOMYCIN 1 GM in NA CHLORIDE 0.9% 250 ML IVPB SCH (20:00)
--- NOTE | 2023-10-06 20:49 | RAD REPORT ---
EXAM DESCRIPTION: CTAbdomen Angio - 10/06/2023 8:[address] angio CT bilateral lower extremity angio. CLINICAL HISTORY: cyanosis of lower extremity COMPARISON: Abdomen Pelvis W Contrast dated 06/12/2023; Abdomen Pelvis Wo Contrast dated 022; Abdomen Pelvis W Contrast dated 04/03/2022; Abdomen Pelvis W Contrast dated 03/02/2022; Lower Extremity Arterial Bilat dated 10/06/2023; Lower Ext Angio dated 10/06/2023; Pelvis Angio dated 10/06/2023; Shoulder Left 2 View dated 08/31/2023; Head C Spine Cap Wo Con dated 09/28/2023 TECHNIQUE: CTA of the abdomen, pelvis, and bilateral lower extremities was performed with intravenou s contrast. All CT scans are performed using dose optimization technique as appropriate and may include automated exposure control or mA/KV adjustment according to patient size. FINDINGS: Lower chest: No acute abnormality. Liver: No acute abnormality or suspicious lesions. Biliary: No biliary ductal dilatation. Stomach: No significant focal abnormality. Duodenum: No significant focal abnormality. Pancreas: No significant abnormality. Spleen: No significant abnormality. Adrenal: No suspicious lesions. Kidney/ureter: No hydronephrosis. No renal calculi. Bilateral hydronephrosis. Renal cortical thinning . Too small to characterize and/or benign appearing renal lesions are noted. Retroperitoneum: No retroperitoneal adenopathy. Bowel: Large stool burden in the sigmoid and rectum.. Peritoneum: No ascites or free air. Bladder: Circumferential thickening of the bladder. Reproductive: Prostatomegaly. Bones: No acute fracture. Vascular: Abdominal aorta: Atherosclerotic changes. No aneurysm. Severe stenosis at the SMA. Probable moderate to severe stenoses of the bilateral renal arteries. Celiac trunk is patent. Iliac arteries: Moderately calcified common and external iliac arteries. Probably moderate stenosis a t the distal left common iliac artery and proximal external iliac artery. Moderate stenosis of the le ft distal external iliac artery. Right lower extremity: Right common femoral artery: Severe stenosis distally. Right superficial femoral artery: A right SFA stent is present that appears occluded as is much of th e right SFA. Right popliteal artery: Multifocal stenoses without occlusion. Right runoff vessels: All 3 vessels are patent. Left lower extremity: Left common femoral artery: Severely narrowed proximally left femoropopliteal bypass. The left common femoral artery is patent. Left superficial femoral artery: Long segment occlusion of the left SFA. Left popliteal artery: Diminutive but patent. Left runoff vessels: The posterior tibial artery is diminutive but patent. The anterior tibial artery is likely patent but diminutive. The posterior tibial artery is diminutive and may have multifocal o cclusions. IMPRESSION: 1. Right lower extremity: Severe stenosis at the distal right common femoral artery with long segment occlusion of the right SFA stent and artery. Three-vessel runoff . 2. Left lower extremity: Moderate stenosis at the left distal common/proximal external iliac artery a s well as distally at the left external iliac artery. A left femoropopliteal bypass graft is present which has a severe stenosis proximally but is otherwise patent. The left SFA is occluded along much o f its course. Two of the runoff vessels are patent. 3. Mild bilateral hydronephrosis. Circumferential bladder wall thickening may be secondary to chronic bladder outlet obstruction.
[2023-10-06] MEDS: INSULIN REGULAR (HUMAN) 100 UNIT/ML SQ SCH (20:54)
[2023-10-06] MEDS ORDERED: HOME MED 1 EA UNK (Insulin Detemir [Levemir] 100 UNIT/ML Vial) SQ SCH (21:00)
[2023-10-06 21:08] VITALS: BMI 29.2
[2023-10-06] MEDS: CEFEPIME 1 GM in NA CHLORIDE 0.9% 100 ML IV SCH (21:18)
[2023-10-06] MEDS: NA CHLORIDE 0.9% 1,000 ML IV SCH (21:18)
[2023-10-06] MEDS: GABAPENTIN 300 MG CAP PO SCH (21:19)
[2023-10-06] MEDS: ATORVASTATIN 80 MG TAB PO SCH (21:19)
[2023-10-06] MEDS: CLOPIDOGREL 75 MG TABLET PO SCH (21:19)
[2023-10-06] MEDS: cilostazoL 100 MG TAB PO SCH (21:20)
[2023-10-06] MEDS: INSULIN GLARGINE 100 UNIT/ML SQ SCH (21:20)
[2023-10-06] MEDS: LOSARTAN POTASSIUM 50 MG TABLET PO SCH (21:20)
[2023-10-06] MEDS: MORPHINE 2 MG/ML SYR IV PRN (21:21)
[2023-10-06] MEDS: VANCOMYCIN 750 MG in NA CHLORIDE 0.9% 150 ML IVPB ONE (21:30)
[2023-10-06] MEDS: VANCOMYCIN 1 GM/VIAL ONE (22:26)
[2023-10-06] MEDS: NA CHLORIDE 0.9% 0 ML ONE (22:30)
[2023-10-06] MEDS: NA CHLORIDE 0.9% 100 ML ONE (22:30)
[2023-10-07 03:54] LABS: Absolute Basophils 0.1 K/uL (0-0.5); Absolute Eosinophils 0.2 K/uL (0-0.5); Absolute Lymphocytes (CBC) 1.5 K/uL (0.7-4.9); Absolute Monocytes 1.9 K/uL (0.1-1.3); Absolute Neutrophil 10.9 K/uL (1.8-8.0); Basophils % 0.9 % (0-1.3); Eosinophils % 1.6 % (0-4.4); Hematocrit 22.8 % (39.6-49.0); Hemoglobin 7.2 g/dL (13.6-17.9); Lymphocytes % 10.3 % (15.3-44.8); MCH 24.7 pg (27.0-35.0); MCHC 31.5 g/dL (32.0-36.0); MCV 78.3 fL (80-100); MPV 7.6 fL (7.6-11.3); Monocytes % 12.9 % (3.3-12.3); Neutrophils % 74.3 % (41.7-73.7); Platelets 345 thou/uL (152-406); RBC Red Blood Cell Count 2.91 M/uL (4.33-5.43); Red Cell Distribution Width 20.3 % (12.1-15.2)
[2023-10-07 04:14] LABS: Albumin 2.1 g/dL (3.4-5.0); Albumin/Globulin Ratio 0.4 (1.1-1.8); Anion Gap 8.7 mEq/L (5.0-15.0); Bilirubin Total 0.3 mg/dL (0.2-1.0); Globulin 4.7 g/dL (2.3-3.5); Potassium 3.7 mEq/L (3.5-5.1); Protein, Total 6.8 g/dL (6.4-8.2)
[2023-10-07] MEDS ORDERED: HOME MED 1 EA UNK (Insulin Aspart [Novolog Flexpen] 100 UNIT/ML Insuln.Pen) SQ SCH (07:30)
[2023-10-07] MEDS: INSULIN LISPRO 100 UNIT/ML SQ SCH (07:30)
[2023-10-07] MEDS: HOME MED (Dapagliflozin Propanediol [Farxiga] 10 MG Tablet) PO SCH (09:00)
[2023-10-07] MEDS: POTASSIUM CL SA 10 MEQ TAB PO ONE (09:39)
[2023-10-07] MEDS: MORPHINE 4 MG/ML SYR IV PRN (12:06)
--- NOTE | 2023-10-07 12:41 | P.PN ---
Subjective Date of Service: 10/07/23 Chief Complaint: Foot ulceration Patient has no new complaint except intermittent pain in the right foot. No recorded fever. He is tolerating diet. Physical Examination - Vital Signs Temperature: 98.2 F Blood Pressure: 118/47 Pulse: 79 Respirations: 16 Pulse Ox (%): 98 - Studies Laboratory Data (last 24 hrs) 10/06/23 10/06/23 10/06/23 17:57 17:15 17:15 WBC Hgb Hct Plt Count PT 13.0 H INR 1.19 APTT 32.1 Sodium 131 L Cancelled Potassium 4.0 Cancelled BUN 46 H Cancelled Creatinine 1.79 H Cancelled Glucose 180 H Cancelled Total Bilirubin 0.3 AST 29 ALT 31 Alkaline Phosphatase 150 H 10/06/23 16:20 WBC 16.80 H Hgb 8.5 L Hct 25.5 L Plt Count 414 H PT INR APTT Sodium Potassium BUN Creatinine Glucose Total Bilirubin AST ALT Alkaline Phosphatase Microbiology Data (last 24 hrs): 10/06/23 17:55 Blood - Blood Anaerobic Blood Culture - Final 10/06/23 17:53 Blood - Blood Anaerobic Blood Culture - Final Assessment And Plan - Plan Physical examination General: Alert and oriented x3, NAD, HEENT: Conjunctiva not pale, anicteric sclera Neck: Supple, no elevated JVD Heart: Heart sounds 1 and 2 normal, regular rhythm, normal rate, no pedal edema Lungs: Clear to auscultation bilaterally, adequate breath sounds bilaterally, no rhonchi or crackles. Abdomen: Soft, rotund, nondistended, nontender, normal bowel sounds. Extremities: No tenderness, no deformity Skin: Normal skin turgor, gangrenous right great toe. Neuro: No focal motor deficit. Normal speech. Psychiatry: Normal mood, no agitation. Assessment and plan Gangrene of right foot/peripheral arterial disease CTA lower extremity results reviewed. Patient noted to have significant peripheral vascular disease with multiple occlusions, history of multiple stent, history of bypass surgeries. Patient seen and evaluated by Dr. Clifton who is following for debridement. Vascular surgery Dr. Matos also consulted for his input before surgical debridement Analgesics as needed. Continue IV antibiotics for possible secondary infection. Continue home medications include aspirin and Plavix CAD (coronary artery disease) Continue home medications-aspirin and Plavix Diabetes mellitus type 2 Insulin sliding scale. Validate and reconcile home basal insulin. Accu-Chek before every meal and at bedtime ANA (acute kidney injury)/obstructive uropathy Acute kidney injury noted Patient had a contrast dye during CTA Briefly hydrated with IV fluid. Hold home dose Lasix. Nephrology consulted CT abdomen findings noted. Possible obstructive uropathy noted. Gunderson catheter. Monitor urine output
[2023-10-07 15:38] LABS: Renal Epithelial <5 /HPF (None Seen); Sqamous Epithelial None Seen /HPF (None Seen); Urine Bacteria 20-50 /HPF (<20); Urine Clarity Extremely Turbid (Clear); Urine Color Colorless (Yellow); Urine Culture Reflex Order REFLEXED; Urine Microscopic Reflex YN ORDER UMIC; Urine RBC >50 /HPF (None Seen); Urine WBC >50 /HPF (<5); Urine WBC Clump Many /HPF (None Seen)
[2023-10-07 15:39] LABS: Specific Gravity 1.013 (1.005-1.030); Urine Bilirubin Negative (Negative); Urine Blood 2+ (Negative); Urine Glucose 4+ (Negative); Urine Ketones Negative (Negative); Urine Nitrite Negative (Negative); Urine Protein 1+ (Negative); Urine Urobilinogen Normal (Normal); Urine pH 6.5 (5.0-7.0)
[2023-10-07] MEDS: EPOETIN ALFA-EPBX 4,000 UNIT/ML VIAL SQ ONE (16:00)
--- NOTE | 2023-10-07 16:12 | CON ---
History Of Present Illness: The patient is alert, awake, able to give some answers. Presented over here with foot pain. He seems to have gangrene on the first toe, the big toe on the right leg, and a lso on the second toe. He has had evaluation done by Dr. Matos, vascular interventionalist, [facility]. He has also seen another surgeon, he states he was in [place], and had some proced ure done on the foot at that time. He has been having problem for a few weeks he says with his right foot and decided to come to the hospital to get that evaluated. Continues to have some discomfort i n the right foot in the toe area where he seems to have a gangrene and significant discoloration on h is big toe and the adjacent toe as well. The patient is a 62-year-old male with history of diabetes, high blood pressure, hyperlipidemia, neelima pheral vascular disease, question some chronic kidney disease as well, history of stenosis post endar terectomy, now presents with gangrene on the right foot. Allergies: REVIEWED. NONE LISTED IN THE CHART. Medications: Reviewed. The patient is currently on antibiotics. Social History: The patient is a regular smoker. Counseled him in detail about risks of smoking, pr oblems with his peripheral vascular disease worsening, heart issues and also risk of stroke and with smoking. The patient is not ready to quit at this point. Past Surgical History: Carotid surgery. He has had history of stent placement for peripheral vascul ar disease at least in the left leg. Past Medical History: Significant for diabetes, high blood pressure, question of chronic kidney dise ase, but the patient is not sure about the extent. Physical Examination: Vital Signs: Vitals in the chart reviewed. The patient's vitals seem reasonable. Blood pressure is reasonable at about 118-123. Last one was 118 systolic over diastolic of 47, pulse about 70-80 and regular, respirations are about 14 and comfortable, on my exam, the patient is afebrile with temperat ure of 98.2 recorded last, O2 sats are 98%. Has been using on and off oxygen but on room air, the ox ygenation is between 96-98. Lungs: Clear to auscultation. Abdomen: Soft. Extremities: No edema. He does have some discoloration in his left and right leg. The right leg al so has gangrene on the first toe and on the second toe. First toe is pretty impressive with almost m ost of the bottom of the toe gangrenous. Laboratory Data: Reviewed. WBC count today is 14.6, improved from 16.8 yesterday, hemoglobin 7.2, h ematocrit is 22.8, platelet count of 345. Chemistry shows sodium 132, potassium 3.7, chloride is 102 , bicarb is 25, BUN and creatinine of 45 and 1.88, relatively stable compared to yesterday when they were 46 and 1.79. Albumin of 2.1. Urinalysis is pending. Assessment/plan: The patient with diabetic nephropathy, likely, and hypertensive nephrosclerosis per haps as well. The patient does not have a urinalysis currently. We will get a urinalysis. Also karen l get a microalbumin/protein/creatinine ratio to assess for level of proteinuria. Given his low albu min, history of diabetes, seems like the patient has some damage to the kidneys chronically from the diabetes. Also seems volume depleted given the fact that he has no swelling in his legs despite the fact that his albumin is in 2 range. The patient is currently stable from the breathing point of vie w. Continue IV fluids. We will give him a dose of Retacrit. We will check his urine protein and cr eatinine. We will get a urinalysis. Get ultrasound of his kidneys. Avoid nephrotoxins. Avoid dye if it can be prevented, however, the patient may need dye in the future when he gets evaluation and t reatment for his PAD. Also has to get his feet evaluated perhaps surgical debridement will be needed at least on the right leg to correct the gangrene on the first and second toe. /BARRYL Voice ID: [id number] Report ID: [id number]
[2023-10-07 16:13] LABS: UR MICROALBUMIN 17.7 mg/dL (< 1.9)
--- NOTE | 2023-10-07 17:06 | RAD REPORT ---
EXAM DESCRIPTION: US - Renal Ultrasound-Complete - 10/07/2023 4:56 pm CLINICAL HISTORY: renal failure COMPARISON: Abdomen Angio dated 10/06/2023 FINDINGS: Both kidneys are normal in size, shape and echotexture. The right kidney measures 12.3 cm. Mild right-sided hydroureteronephrosis. No suspicious mass or ston es. The left kidney measures 11.7 cm. 1.3 cm left renal cyst noted. Mild left-sided hydronephrosis. No st ones. The bladder is decompressed via Gunderson catheter. IMPRESSION: Mild bilateral hydronephrosis, right greater than left. Benign small left renal cyst.
--- NOTE | 2023-10-07 18:06 | CON ---
Date of Consultation: 10/07/2023 Reason For Service: Management of the right foot wound since the patient has gangrenous changes and evaluation for care, even possible amputation. History Of Present Illness: This is the case of a 62-year-old person who was admitted to the [facility] with some redness on the right foot area. Apparently, he has what he best can describe as some con trast on the right leg per Dr. Matos one of our vascular physicians. It is hard to see if he had a CT angio or if he had angioplasty itself. Dr. Matos is one of our vascular interventional who basically does very advanced procedures for peripheral vascular disease and at this moment, I do not have info rmation from him to do an accurate assessment and the person does not recall exactly the details. He knows he has these open ulcers that are described in his chart as gangrene because the toe is alread y mummified and there are some other areas with ischemic changes and cyanosis, although the patient d oes not believe he has gangrene yet. We explained to him that yes, there are some stages of it, and we see some definitely compromised vascular in the right foot, but once again has been addressed by [facility]. Medical History: Obviously peripheral vascular disease, diabetes, hypertension. Surgeries: Include access on the left groin. He said they were going to go there to put a vein, but then after that went bad and get infected, but that is all the information I can get from him. I am trying to get from the primary doctors more information in the next few hours. Medications: Reviewed. Family History: Noncontributory. Social Habits: Reviewed. Physical Examination: General: The patient is awake, alert. HEENT: Pupils anicteric. Neck: Supple. Chest: Clear. Abdomen: Soft and depressible. Extremities: Over the right foot, the patient has dry gangrene of the first toe. There are some ulc ers in the lateral side. They looked dry at this moment. There is no fluctuance seen. There are so me ischemic changes. Peripheral pulses obviously are not palpated. There is some capillary refills in the rest of the toes but definitely it is a foot that is lacking some circulation. Laboratory Data: Blood work was reviewed with the patient. Plan: Obviously we need some more information on this case. The way I see it if vascular cannot be improved he is going to go for below-knee amputation because I do not think transmet or even toe yee mindy will be all he needs. Obviously, he is not prepared for that solution and so before we once tyrese king discuss the timing of it, let me just gather some more information. I will talk to Dr. Matos, talk to the primary and then bring the case once again to the patient. If he by any chance goes home, we would like to see this [facility] where we can slowly explain to him at his timing and his understanding the pros and cons of not acting up on these gangrenous changes. ÓSCAR/MODL Voice ID: [id number] Report ID: [id number]
[2023-10-07] MEDS: VANCOMYCIN 1.75 GM in NA CHLORIDE 0.9% 500 ML IVPB SCH (22:43)
[2023-10-08 03:44] LABS: Absolute Eosinophils 0.4 K/uL (0-0.5); Absolute Lymphocytes (CBC) 1.4 K/uL (0.7-4.9); Absolute Monocytes 1.5 K/uL (0.1-1.3); Absolute Neutrophil 9.8 K/uL (1.8-8.0); Hematocrit 24.7 % (39.6-49.0); Hemoglobin 8.2 g/dL (13.6-17.9); Lymphocytes % 10.5 % (15.3-44.8); MCV 78.9 fL (80-100); MPV 7.4 fL (7.6-11.3); Monocytes % 11.4 % (3.3-12.3); Neutrophils % 75.1 % (41.7-73.7); Nucleated Red Blood Cells % 0.1 % (0-0); Platelets 365 thou/uL (152-406); RBC Red Blood Cell Count 3.14 M/uL (4.33-5.43); Red Cell Distribution Width 19.3 % (12.1-15.2)
[2023-10-08 04:00] LABS: Anion Gap 9.1 mEq/L (5.0-15.0); Potassium 4.1 mEq/L (3.5-5.1)
[2023-10-08] MEDS: EPOETIN ALFA-EPBX 4,000 UNIT/ML VIAL SQ ONE (08:00)
--- NOTE | 2023-10-08 16:10 | P.PN ---
Subjective Date of Service: 10/08/23 Chief Complaint: Foot ulceration Patient complaining of pain in the right leg No recorded fever. No issues overnight. Physical Examination - Vital Signs Temperature: 97.9 F Blood Pressure: 152/64 Pulse: 88 Respirations: 18 Pulse Ox (%): 94 - Studies Microbiology Data (last 24 hrs): 10/06/23 17:55 Blood - Blood Anaerobic Blood Culture - Final 10/06/23 17:53 Blood - Blood Anaerobic Blood Culture - Final Assessment And Plan - Plan Physical examination General: Alert and oriented x3, NAD, Neck: Supple, no elevated JVD Heart: Heart sounds 1 and 2 normal, regular rhythm, normal rate, no pedal edema Lungs: Clear to auscultation bilaterally, adequate breath sounds bilaterally, no rhonchi or crackles. Abdomen: Soft, rotund, nondistended, nontender, normal bowel sounds. Extremities: No tenderness. Skin: Gangrenous right great toe. Neuro: No focal motor deficit. Normal speech. Psychiatry: Normal mood, no agitation. Assessment and plan Gangrene of right foot/peripheral arterial disease CTA lower extremity results reviewed. Patient noted to have significant peripheral vascular disease with multiple occlusions, history of multiple stent, history of bypass surgeries. Surgery Dr. Clifton is considering debridement. Vascular surgery Dr. Matos also consulted for his input before surgical debridement Analgesics as needed. Continue IV antibiotics for possible secondary infection. Continue home medications including cilostazol and Plavix CAD (coronary artery disease) Continue home medications-aspirin and Plavix Diabetes mellitus type 2 Insulin sliding scale. Continue home dose basal insulin. Accu-Chek before every meal and at bedtime ANA (acute kidney injury)/obstructive uropathy Acute kidney injury noted Patient had a contrast dye during CTA ANA is improving Home Lasix is on hold. Nephrology consulted CT abdomen findings noted. Possible obstructive uropathy noted. Monitor urine output
[2023-10-08] MEDS: METOPROLOL TAR 50 MG TAB PO SCH (18:11)
--- NOTE | 2023-10-08 19:54 | PN ---
Date of Progress Note: 10/08/2023 Subjective: The patient is seen in room 411 at [facility] in [place]. The patient i s alert, awake, comfortable. Says he feels better compared to yesterday. His oxygen is out and he i s breathing at about 14 to 16 on my exam and O2 sats about 96% on room air. His urine output yesterd ay was about 1500 cc. He had input of about 1980, and has been positive to the range of about 500 cc . Objective: Vital Signs: His blood pressure has been reasonably stable, systolic has creeped up slig htly between 130 to 152. Last blood pressure is 152/64, pulse is about 88 and regular, respirations around 14 to 18. Lungs: Clear to auscultation. Abdomen: Soft. Extremities: Trace edema. The patient does have gangrene on his toes about similar to what it was y esterday. Awaiting Cardiology, Vascular evaluation. Laboratory Data: The patient's WBC count is 13.1, hemoglobin 8.2, hematocrit 24.7, platelet count is 365. Sodium 136, potassium 4.1, chloride 106, bicarb is 25. BUN is 31, creatinine is 1.36, signifi cant improvement compared to yesterday at 45/1.88. Assessment And Plan: Patient with acute kidney injury over CKD. Continue monitoring with gentle IV fluids. Encouraged p.o. intake. Vascular evaluation and possible need for debridement, once Dr. Ean lopez and Dr. Clifton have evaluated him. Patient will need further evaluation and treatment for his ki dney disease and ongoing monitoring going forward, once acute issues are resolved and understanding o f residual renal function is accomplished. The patient does seem to have stage CKD 3, but some of th e rise in creatinine is related to his volume depletion and infection and peripheral vascular disease . At this point, may add low-dose amlodipine if blood pressure continues to stay up. The patient's blood pressure seems reasonable at this point about 130 to 150 range. If starts creeping above 150 c onsistently, then add 2.5 to 5 mg of amlodipine. Appreciate your assistance. Do not hesitate to call me if any questions. /KATERYNA Voice ID: [id number] Report ID: [id number]
[2023-10-08] MEDS: HYDROCODONE/APAP 7.5/325 MG TAB PO PRN (21:11)
[2023-10-09 06:45] LABS: Absolute Basophils 0.1 K/uL (0-0.5); Absolute Eosinophils 0.3 K/uL (0-0.5); Absolute Lymphocytes (CBC) 1.3 K/uL (0.7-4.9); Absolute Monocytes 1.3 K/uL (0.1-1.3); Absolute Neutrophil 8.4 K/uL (1.8-8.0); Basophils % 0.5 % (0-1.3); Eosinophils % 2.5 % (0-4.4); Lymphocytes % 11.3 % (15.3-44.8); MCH 25.4 pg (27.0-35.0); MCHC 31.9 g/dL (32.0-36.0); MCV 79.7 fL (80-100); MPV 7.3 fL (7.6-11.3); Monocytes % 11.3 % (3.3-12.3); Neutrophils % 74.4 % (41.7-73.7); Platelets 362 thou/uL (152-406); RBC Red Blood Cell Count 3.14 M/uL (4.33-5.43)
[2023-10-09 07:03] LABS: Anion Gap 7.3 mEq/L (5.0-15.0); Potassium 4.3 mEq/L (3.5-5.1)
--- NOTE | 2023-10-09 12:50 | EKG ---
Test Date: 2023-10-06 Test Time: 18:54:59 Exhibition Organiser: DAILY MEASUREMENT RESULTS: Intervals: Rate: 83 VT: 144 QRSD: 82 QT: 396 QTc: 465 [place]: P: 67 VT: 144 QRS: -8 T: 72 INTERPRETIVE STATEMENTS: Normal sinus rhythm with sinus arrhythmia Moderate voltage criteria for LVH, may be normal variant Inferior infarct, age undetermined Abnormal ECG Compared to ECG 09/28/2023 17:30:37 Left ventricular hypertrophy now present Myocardial infarct finding now present Sinus tachycardia no longer present T-wave abnormality no longer present Possible ischemia no longer present Electronically Signed On 10-09-23 12:43:08 CDT by Jeffrey Suazo
--- NOTE | 2023-10-09 15:17 | P.PN ---
Subjective Date of Service: 10/09/23 Chief Complaint: Foot ulceration Patient has no new complaint. No change in right big toe gangrene and foot erythema. No recorded fever. Physical Examination - Vital Signs Temperature: 97.2 F Blood Pressure: 171/72 Pulse: 80 Respirations: 20 Pulse Ox (%): 97 Assessment And Plan - Plan Physical examination General: Alert and oriented x3, NAD, Neck: Supple, no elevated JVD Heart: Heart sounds 1 and 2 normal, regular rhythm, normal rate, no pedal edema Lungs: Clear to auscultation bilaterally, adequate breath sounds bilaterally, no rhonchi or crackles. Abdomen: Soft, rotund, nondistended, nontender, normal bowel sounds. Extremities: No tenderness. Skin: Gangrenous right great toe. Mild erythema on the dorsum of the right foot. Neuro: No focal motor deficit. Normal speech. Psychiatry: Normal mood, no agitation. Assessment and plan Gangrene of right foot/peripheral arterial disease CTA lower extremity results reviewed. Patient noted to have significant peripheral vascular disease with multiple occlusions, history of multiple stent, history of bypass surgeries. Vascular surgery Dr. Matos is planning angiogram today. Surgery Dr. Clifton is considering debridement versus amputation pending Dr. Claros's evaluation Analgesics as needed. Continue IV antibiotics for possible secondary infection. Continue home medications including cilostazol and Plavix CAD (coronary artery disease) Continue home medications-aspirin and Plavix Diabetes mellitus type 2 Insulin sliding scale. Continue home dose basal insulin. Accu-Chek before every meal and at bedtime ANA (acute kidney injury)/obstructive uropathy Acute kidney injury noted Patient had a contrast dye during CTA ANA resolved Home Lasix is on hold. Nephrology is following CT abdomen findings noted. Possible obstructive uropathy noted. Monitor urine output DVT Prophylaxis: Lovenox Disposition: Skilled rehab
--- NOTE | 2023-10-09 21:28 | P.PN ---
Date of Service: 10/09/23 Vital Signs Temp Pulse Resp BP Pulse Ox 97.4 F 94 H 18 191/80 H 93 10/09/23 20:00 10/09/23 20:00 10/09/23 20:00 10/09/23 20:00 10/09/23 20:00 Medications Acetaminophen (Acetaminophen 500 Mg Tab) 500 mg PO Q4HP PRN PRN Reason: Pain scale 2-4 (Mild) Hydrocodone Bitart/Acetaminophen (Hydrocodone/Apap 7.5/325 Mg Tab) 1 tab PO BIDP PRN PRN Reason: Pain scale 5-7 (Moderate) Last Admin: 10/08/23 21:11 Dose: 1 tab Atorvastatin Calcium (Atorvastatin 80 Mg Tab) 80 mg PO BEDTIME [facility] Last Admin: 10/08/23 21:05 Dose: 80 mg Cilostazol (Cilostazol 100 Mg Tab) 100 mg PO BID [facility] Last Admin: 10/09/23 08:21 Dose: 100 mg Clopidogrel Bisulfate (Clopidogrel 75 Mg Tablet) 75 mg PO BEDTIME [facility] Last Admin: 10/08/23 21:05 Dose: 75 mg Gabapentin (Gabapentin 300 Mg Cap) 300 mg PO BID [facility] Last Admin: 10/09/23 08:20 Dose: 300 mg Home Med (Dapagliflozin Propanediol [Farxiga]) 10 mg PO DAILY [facility] Last Admin: 10/09/23 09:00 Dose: Not Given Sodium Chloride (Ns 1000 Ml Ivbag) 1,000 mls @ 50 mls/hr IV .Q20H [facility] Last Admin: 10/08/23 21:10 Dose: 1,000 mls Cefepime HCl 1 gm/ Sodium (Chloride) 100 mls @ 200 mls/hr IV Q12HR [facility]; Protocol Last Admin: 10/09/23 08:20 Dose: 100 mls Vancomycin HCl 1.75 gm/ Sodium (Chloride) 500 mls @ 250 mls/hr IVPB Q24H [facility] Last Admin: 10/08/23 21:11 Dose: 500 mls Insulin Glargine (Insulin Glargine 100 Unit/Ml) 24 unit SQ BID [facility] Last Admin: 10/09/23 09:00 Dose: Not Given Insulin Human Lispro (Insulin Lispro 100 Unit/Ml) 6 unit SQ AC [facility] Last Admin: 10/09/23 16:30 Dose: Not Given Insulin Human Regular (Insulin Regular (Human) 100 Unit/Ml) 0 unit SQ ACHS [facility]; Protocol Last Admin: 10/09/23 16:30 Dose: Not Given Losartan Potassium (Losartan Potassium 50 Mg Tablet) 50 mg PO BID [facility] Last Admin: 10/09/23 08:20 Dose: 50 mg Metoprolol Tartrate (Metoprolol Tar 50 Mg Tab) 50 mg PO BID 6AM 6PM [facility] Last Admin: 10/09/23 17:34 Dose: Not Given Morphine Sulfate (Morphine 2 Mg/Ml Syr) 2 mg IV Q4H PRN PRN Reason: Pain scale 8-10 (Severe) Ondansetron HCl (Ondansetron 4 Mg/2 Ml Vial) 4 mg IV Q6HP PRN PRN Reason: NAUSEA / VOMITING Oxycodone/Acetaminophen (Oxycodone Hcl/Acetaminophen 5/325 Mg Tab) 1 tab PO Q4H PRN PRN Reason: Pain scale 8-10 (Severe) Microbiology Results 10/06/23 17:55 Blood - Blood Aerobic Blood Culture - Preliminary No growth in 24 hours. 10/06/23 17:55 Blood - Blood Anaerobic Blood Culture - Final 10/06/23 17:53 Blood - Blood Aerobic Blood Culture - Preliminary No growth in 24 hours. 10/06/23 17:53 Blood - Blood Anaerobic Blood Culture - Final Assessment/ Plan: Nephrology No dyspnea No chest pain No acute events overnight Vitals, medications, blood work and imaging reviewed in the chart NAD. MMM. NCAT. Normal Respiratory Effort. S1S2. ND Abd. No C/C/E. No rash. AAO. Normal speech. Gunderson Light CKD II with Proteinuria -No NSAIDs -Continue Farxiga -Agree with IVF HTN with CKD -Continue Metoprolol -Continue Losartan DM II with CKD, Polyneuropathy & Peripheral Angiopathy -Continue Farxiga -Continue Gabapentin -RISS PAD Right 1st Toe Gangrene -Follow up with vascular -Continue Lipitor Anemia in chronic illness -Monitor H&H Case reviewed with Dr. Hudson
[2023-10-09] MEDS: NA CHLORIDE 0.9% 500 ML ONE (22:33)
[2023-10-09] MEDS: WATER FOR INJ,STERILE 10 ML ONE (22:34)
[2023-10-09] MEDS: WATER FOR INJ,STERILE 10 ML IV PRN (22:59)
[2023-10-09] MEDS: VANCOMYCIN 1.5 GM in NA CHLORIDE 0.9% 500 ML IVPB SCH (23:00)
[2023-10-09] MEDS: VANCOMYCIN 500 MG/VIAL ONE (23:00)
[2023-10-09] MEDS: VANCOMYCIN 1 GM/VIAL ONE (23:00)
[2023-10-10] MEDS: MORPHINE 2 MG/ML SYR IV PRN (04:38)
[2023-10-10 07:49] LABS: Absolute Eosinophils 0.2 K/uL (0-0.5); Absolute Lymphocytes (CBC) 1.1 K/uL (0.7-4.9); Absolute Neutrophil 8.2 K/uL (1.8-8.0); Basophils % 0.3 % (0-1.3); Eosinophils % 2.1 % (0-4.4); Hematocrit 24.3 % (39.6-49.0); Hemoglobin 8.1 g/dL (13.6-17.9); Lymphocytes % 10.7 % (15.3-44.8); MCH 26.2 pg (27.0-35.0); MCHC 33.4 g/dL (32.0-36.0); MCV 78.4 fL (80-100); Monocytes % 9.2 % (3.3-12.3); Neutrophils % 77.7 % (41.7-73.7); Platelets 354 thou/uL (152-406); Red Cell Distribution Width 19.9 % (12.1-15.2)
--- NOTE | 2023-10-10 09:45 | P.PN ---
Date of Service: 10/10/23 Photo obtained after obtaining patient's verbal consent, on 10/10/23. Subjective: Doing okay. denies any new/worsening issues Pending Dr. Claros recrenetta for possible angiogram agreeable to angiogram today, said he was concerned due to talks of "resuscitation" yesterday and prior traumatic experience afebrile ROS: 10 point ROS as noted above, otherwise negative Physical Exam: GEN: Alert, oriented, NAD CV: Regular rate and rhythm, no edema Pulm: Nonlabored respirations on room air, clear bilaterally ABD: soft, nontender, nondistended Integumentary: Gangrenous right 1st toe and 2nd toe with dry eschar on dorsal aspect, with purple discoloration circumferentially on distal ~2/3 of toe. erythema on the dorsum of the right foot. tender Neuro: Normal speech, normal affect wilson in place (placed 10/06) Problem List: Gangrene of right 1st/2nd toes peripheral arterial disease coronary artery disease IDDM2 with polyneuropathy ANA on CKD2, resolved Hypertension Hyperlipidemia hx CVA with left-sided deficits Gangrene of right 1st/2nd toes peripheral arterial disease h/o of severe PAD, with multiple occlusions, history of multiple stent, history of bypass (fem-pop) surgeries. Lower extremity u/s (10/05): monophasic waveforms in bilateral lower extremities could reflect mod-severe stenosis such as at the iliac vessels CT pelvis (10/05): RLE: Severe stenosis at distal right common femoral artery with long segment occlusion of the right SFA stent and artery. Three-vessel runoff. LLE: moderate stenosis at the left distal common/proximal external iliac artery as well as distally at the left external iliac artery. Dr. Matos, vascular surgery is following initially planning for angiogram yesterday but wasn't done due to patient wanting to discuss with sister and concerns on rounds 10/09, patient told me he was amenable to surgery now, was "worried with all the talk about resuscitation" and prior traumatic experience Dr. Clifton, General surgery is following and considering amputation pending Dr Neli betancourt PRN analgesics / antiemetics Continue empiric cefepime / vanc (10/05-) coronary artery disease continue home plavix, aspirin 81 mg IDDM2 with polyneuropathy accu-checks, SSI titrate semglee as needed ANA on CKD2, resolved CT pelvis (10/06): mild bilateral hydronephrosis. Circumferential bladder wall thickening may be secondary to chronic bladder outlet obstruction renal u/s (10/06): mild bilateral hydronephrosis R > L, benign small left renal cyst given constrast dye during CTA continue to monitor renal function Nephrology consulted ANA resolved Hypertension Hyperlipidemia resume home meds including statin, losartan hx CVA with left-sided deficits continue supportive care. VTE: held secondary to possible procedure Code: Full Dispo: SNF vs HH, ~4 days pending angio, amputation, and post-op course
[2023-10-10] MEDS: HYDRALAZINE HCL 20 MG/ML VIAL ONE (11:42)
[2023-10-10] MEDS: HYDRALAZINE HCL 20 MG/ML VIAL IV PRN (11:44)
--- NOTE | 2023-10-10 20:34 | P.PN ---
Date of Service: 10/10/23 Vital Signs Temp Pulse Resp BP Pulse Ox 97.1 F 88 18 129/58 L 98 10/10/23 16:00 10/10/23 16:00 10/10/23 19:50 10/10/23 16:00 10/10/23 19:50 Medications Acetaminophen (Acetaminophen 500 Mg Tab) 500 mg PO Q4HP PRN PRN Reason: Pain scale 2-4 (Mild) Hydrocodone Bitart/Acetaminophen (Hydrocodone/Apap 7.5/325 Mg Tab) 1 tab PO BIDP PRN PRN Reason: Pain scale 5-7 (Moderate) Last Admin: 10/10/23 16:43 Dose: 1 tab Atorvastatin Calcium (Atorvastatin 80 Mg Tab) 80 mg PO BEDTIME [facility] Last Admin: 10/09/23 21:58 Dose: 80 mg Cilostazol (Cilostazol 100 Mg Tab) 100 mg PO BID [facility] Last Admin: 10/10/23 08:49 Dose: 100 mg Clopidogrel Bisulfate (Clopidogrel 75 Mg Tablet) 75 mg PO BEDTIME [facility] Last Admin: 10/09/23 21:57 Dose: 75 mg Gabapentin (Gabapentin 300 Mg Cap) 300 mg PO BID [facility] Last Admin: 10/10/23 08:49 Dose: 300 mg Home Med (Dapagliflozin Propanediol [Farxiga]) 10 mg PO DAILY [facility] Last Admin: 10/10/23 08:26 Dose: Not Given Hydralazine HCl (Hydralazine Hcl 20 Mg/Ml Vial) 10 mg IV Q6HP PRN PRN Reason: FOR SBP>160 OR DBP>100 [facility] Last Admin: 10/10/23 11:44 Dose: 10 mg Sodium Chloride (Ns 1000 Ml Ivbag) 1,000 mls @ 50 mls/hr IV .Q20H [facility] Last Admin: 10/10/23 19:50 Dose: 1,000 mls Cefepime HCl 1 gm/ Sodium (Chloride) 100 mls @ 200 mls/hr IV Q12HR [facility]; Protocol Last Admin: 10/10/23 08:49 Dose: 100 mls Vancomycin HCl 1.5 gm/ Sodium (Chloride) 500 mls @ 333.333 mls/hr IVPB Q24H [facility] Last Admin: 10/09/23 23:00 Dose: 500 mls Insulin Glargine (Insulin Glargine 100 Unit/Ml) 24 unit SQ BID [facility] Last Admin: 10/10/23 08:26 Dose: Not Given Insulin Human Lispro (Insulin Lispro 100 Unit/Ml) 6 unit SQ AC [facility] Last Admin: 10/10/23 17:36 Dose: 6 unit Insulin Human Regular (Insulin Regular (Human) 100 Unit/Ml) 0 unit SQ ACHS [facility]; Protocol Last Admin: 10/10/23 17:37 Dose: 3 unit Losartan Potassium (Losartan Potassium 50 Mg Tablet) 50 mg PO BID [facility] Last Admin: 10/10/23 08:49 Dose: 50 mg Metoprolol Tartrate (Metoprolol Tar 50 Mg Tab) 50 mg PO BID 6AM 6PM [facility] Last Admin: 10/10/23 17:37 Dose: 50 mg Morphine Sulfate (Morphine 2 Mg/Ml Syr) 2 mg IV Q4H PRN PRN Reason: Pain scale 8-10 (Severe) Last Admin: 10/10/23 19:50 Dose: 2 mg Ondansetron HCl (Ondansetron 4 Mg/2 Ml Vial) 4 mg IV Q6HP PRN PRN Reason: NAUSEA / VOMITING Sterile Water (Water For Inj,Sterile 10 Ml) 20 ml IV UD PRN PRN Reason: DILUTION OF MED Last Admin: 10/09/23 22:59 Dose: 20 ml Microbiology Results 10/06/23 17:55 Blood - Blood Aerobic Blood Culture - Preliminary No growth in 24 hours. 10/06/23 17:55 Blood - Blood Anaerobic Blood Culture - Final 10/06/23 17:53 Blood - Blood Aerobic Blood Culture - Preliminary No growth in 24 hours. 10/06/23 17:53 Blood - Blood Anaerobic Blood Culture - Final Assessment/ Plan: Nephrology No dyspnea No chest pain No acute events overnight Vitals, medications, blood work and imaging reviewed in the chart NAD. MMM. NCAT. Normal Respiratory Effort. S1S2. ND Abd. No C/C/E. No rash. AAO. Normal speech. RLE Distal gangrene Gunderson Light CKD II with Proteinuria -No NSAIDs -Continue Farxiga -Continue IVF HTN with CKD -Continue Metoprolol -Continue Losartan DM II with CKD, Polyneuropathy & Peripheral Angiopathy -Continue Farxiga -Continue Gabapentin -RISS PAD Right 1st Toe Gangrene -Follow up with vascular -Continue Lipitor Anemia in chronic illness -Monitor H&H
[2023-10-11 08:22] LABS: Anion Gap 9.3 mEq/L (5.0-15.0); Magnesium 1.9 mg/dL (1.6-2.4); Potassium 4.3 mEq/L (3.5-5.1)
[2023-10-11 08:35] LABS: Absolute Eosinophils 0.2 K/uL (0-0.5); Absolute Lymphocytes (CBC) 1.2 K/uL (0.7-4.9); Absolute Monocytes 0.9 K/uL (0.1-1.3); Absolute Neutrophil 7.8 K/uL (1.8-8.0); Basophils % 0.5 % (0-1.3); Hematocrit 26.7 % (39.6-49.0); Hemoglobin 8.7 g/dL (13.6-17.9); Lymphocytes % 12.2 % (15.3-44.8); MCH 25.6 pg (27.0-35.0); MCHC 32.4 g/dL (32.0-36.0); MPV 7.2 fL (7.6-11.3); Monocytes % 8.5 % (3.3-12.3); Neutrophils % 76.8 % (41.7-73.7); Platelets 348 thou/uL (152-406); RBC Red Blood Cell Count 3.38 M/uL (4.33-5.43); Red Cell Distribution Width 19.4 % (12.1-15.2)
--- NOTE | 2023-10-11 10:50 | P.PN ---
Date of Service: 10/11/23 Subjective: doing okay, amenable to surgery now tentative plan for angiogram this afternoon denies any new / worsening problems afebrile ROS: 10 point ROS as noted above, otherwise negative Physical Exam: GEN: Alert, oriented, NAD CV: Regular rate and rhythm, no edema Pulm: Nonlabored respirations on room air, clear bilaterally ABD: soft, nontender, nondistended Integumentary: Gangrenous right 1st toe and 2nd toe with dry eschar on dorsal aspect, with purple discoloration circumferentially on distal ~2/3 of toe. erythema on the dorsum of the right foot. tender Neuro: Normal speech, normal affect wilson in place (placed 10/06) Problem List: Gangrene of right 1st/2nd toes peripheral arterial disease coronary artery disease IDDM2 with polyneuropathy ANA on CKD2, resolved Hypertension Hyperlipidemia hx CVA with left-sided deficits Gangrene of right 1st/2nd toes peripheral arterial disease h/o of severe PAD, with multiple occlusions, history of multiple stent, history of bypass (fem-pop) surgeries. Lower extremity u/s (10/05): monophasic waveforms in bilateral lower extremities could reflect mod-severe stenosis such as at the iliac vessels CT pelvis (10/05): RLE: Severe stenosis at distal right common femoral artery with long segment occlusion of the right SFA stent and artery. Three-vessel runoff. LLE: moderate stenosis at the left distal common/proximal external iliac artery as well as distally at the left external iliac artery. Dr. Matos, vascular surgery is following initially planning for angiogram yesterday but wasn't done due to patient wanting to discuss with sister and concerns. Now amenable to surgery after discussion 10/09 NPO after lunch for tentative angiogram this afternoon Dr. Clifton, General surgery is following and considering amputation pending Dr. Tran betancourt PRN analgesics / antiemetics Continue empiric cefepime / vanc (10/05-) coronary artery disease continue home plavix, aspirin 81 mg IDDM2 with polyneuropathy accu-checks, SSI titrate semglee as needed ANA on CKD2, resolved CT pelvis (10/06): mild bilateral hydronephrosis. Circumferential bladder wall thickening may be secondary to chronic bladder outlet obstruction renal u/s (10/06): mild bilateral hydronephrosis R > L, benign small left renal cyst given contrast dye during CTA continue to monitor renal function Nephrology consulted ANA resolved Hypertension Hyperlipidemia resume home meds including statin, losartan hx CVA with left-sided deficits continue supportive care. VTE: held secondary to possible procedure Code: Full Dispo: SNF vs , ~4 days pending angio, amputation, and post-op course
--- NOTE | 2023-10-11 12:38 | EKG ---
Test Date: 2023-10-10 Test Time: 05:19:16 Mgmt Consultant: CHANELLE MEASUREMENT RESULTS: Intervals: Rate: 89 IN: 136 QRSD: 86 QT: 356 QTc: 433 [place]: P: 67 IN: 136 QRS: 10 T: 61 INTERPRETIVE STATEMENTS: Normal sinus rhythm with sinus arrhythmia Possible Inferior infarct, age undetermined Cannot rule out Anterior infarct, age undetermined Abnormal ECG Compared to ECG 10/06/2023 18:54:59 Left ventricular hypertrophy no longer present Myocardial infarct finding still present Electronically Signed On 10-11-23 12:34:14 CDT by Jeffrey Suazo
[2023-10-11] MEDS ORDERED: HEPA 1000U/500MLS 2,000 UNIT/1,000 ML BAG IV ONE (15:06)
[2023-10-11] MEDS ORDERED: MIDAZOLAM HCL 2 MG/2 ML INJ ONE ×2 (15:06→16:56)
[2023-10-11] MEDS ORDERED: FENTANYL CITR 100 MCG/2 ML ONE ×2 (15:06→16:56)
[2023-10-11] MEDS ORDERED: TICAGRELOR 90 MG TABLET PO ONE (15:07)
[2023-10-11] MEDS ORDERED: HEPARIN 10,000 UNIT/10 ML VIAL IV ONE (15:07)
[2023-10-11] MEDS ORDERED: CLOPIDOGREL 75 MG TABLET ONE (15:07)
[2023-10-11] MEDS ORDERED: ATROPINE SULF 1 MG/10 ML SYR IV ONE (15:07)
[2023-10-11] MEDS ORDERED: ASPIRIN 325 MG TAB ONE (15:08)
[2023-10-11] MEDS ORDERED: NITROGLYCERIN/D5W 0 MG/0 ML BTL IV ONE (15:08)
[2023-10-11] MEDS ORDERED: LIDOCAINE 1% 20 ML MDV ONE (15:09)
[2023-10-11] MEDS ORDERED: NA CHLORIDE 0.9% 500 ML ONE (15:44)
[2023-10-11] MEDS ORDERED: HYDRALAZINE HCL 20 MG/ML VIAL ONE (16:19)
--- NOTE | 2023-10-11 22:48 | P.PN ---
Date of Service: 10/11/23 Vital Signs Temp Pulse Resp BP Pulse Ox 97.6 F 100 H 18 192/80 H 99 10/11/23 20:00 10/11/23 20:00 10/11/23 22:23 10/11/23 20:00 10/11/23 22:23 Medications Acetaminophen (Acetaminophen 500 Mg Tab) 500 mg PO Q4HP PRN PRN Reason: Pain scale 2-4 (Mild) Hydrocodone Bitart/Acetaminophen (Hydrocodone/Apap 7.5/325 Mg Tab) 1 tab PO BIDP PRN PRN Reason: Pain scale 5-7 (Moderate) Last Admin: 10/11/23 07:57 Dose: 1 tab Atorvastatin Calcium (Atorvastatin 80 Mg Tab) 80 mg PO BEDTIME [facility] Last Admin: 10/11/23 21:46 Dose: 80 mg Cilostazol (Cilostazol 100 Mg Tab) 100 mg PO BID [facility] Last Admin: 10/11/23 21:46 Dose: 100 mg Clopidogrel Bisulfate (Clopidogrel 75 Mg Tablet) 75 mg PO BEDTIME [facility] Last Admin: 10/11/23 21:46 Dose: 75 mg Gabapentin (Gabapentin 300 Mg Cap) 300 mg PO BID [facility] Last Admin: 10/11/23 21:46 Dose: 300 mg Home Med (Dapagliflozin Propanediol [Farxiga]) 10 mg PO DAILY [facility] Last Admin: 10/11/23 09:00 Dose: Not Given Hydralazine HCl (Hydralazine Hcl 20 Mg/Ml Vial) 10 mg IV Q6HP PRN PRN Reason: FOR SBP>160 OR DBP>100 [facility] Last Admin: 10/11/23 21:56 Dose: 10 mg Sodium Chloride (Ns 1000 Ml Ivbag) 1,000 mls @ 50 mls/hr IV .Q20H [facility] Last Admin: 10/11/23 22:06 Dose: 1,000 mls Cefepime HCl 1 gm/ Sodium (Chloride) 100 mls @ 200 mls/hr IV Q12HR [facility]; Protocol Last Admin: 10/11/23 21:45 Dose: 100 mls Vancomycin HCl 1.5 gm/ Sodium (Chloride) 500 mls @ 333.333 mls/hr IVPB Q24H [facility] Last Admin: 10/10/23 23:12 Dose: 500 mls Insulin Glargine (Insulin Glargine 100 Unit/Ml) 24 unit SQ BID [facility] Last Admin: 10/11/23 09:00 Dose: Not Given Insulin Human Lispro (Insulin Lispro 100 Unit/Ml) 6 unit SQ AC [facility] Last Admin: 10/11/23 16:30 Dose: Not Given Insulin Human Regular (Insulin Regular (Human) 100 Unit/Ml) 0 unit SQ ACHS [facility]; Protocol Last Admin: 10/11/23 21:00 Dose: Not Given Losartan Potassium (Losartan Potassium 50 Mg Tablet) 50 mg PO BID [facility] Last Admin: 10/11/23 21:54 Dose: 50 mg Metoprolol Tartrate (Metoprolol Tar 50 Mg Tab) 50 mg PO BID 6AM 6PM [facility] Last Admin: 10/11/23 06:06 Dose: 50 mg Morphine Sulfate (Morphine 2 Mg/Ml Syr) 2 mg IV Q4H PRN PRN Reason: Pain scale 8-10 (Severe) Last Admin: 10/11/23 21:53 Dose: 2 mg Ondansetron HCl (Ondansetron 4 Mg/2 Ml Vial) 4 mg IV Q6HP PRN PRN Reason: NAUSEA / VOMITING Sterile Water (Water For Inj,Sterile 10 Ml) 20 ml IV UD PRN PRN Reason: DILUTION OF MED Last Admin: 10/09/23 22:59 Dose: 20 ml Microbiology Results 10/06/23 17:53 Blood - Blood Aerobic Blood Culture - Final No growth in 5 days. 10/06/23 17:53 Blood - Blood Anaerobic Blood Culture - Final 10/06/23 17:55 Blood - Blood Aerobic Blood Culture - Final No growth in 5 days. 10/06/23 17:55 Blood - Blood Anaerobic Blood Culture - Final Assessment/ Plan: Nephrology No dyspnea No chest pain No acute events overnight Vitals, medications, blood work and imaging reviewed in the chart NAD. MMM. NCAT. Normal Respiratory Effort. S1S2. ND Abd. No C/C/E. No rash. AAO. Normal speech. RLE Distal gangrene Gunderson Light CKD II with Proteinuria -No NSAIDs -Continue Farxiga -Continue IVF HTN with CKD -Continue Metoprolol -Continue Losartan DM II with CKD, Polyneuropathy & Peripheral Angiopathy -Continue Farxiga -Continue Gabapentin -RISS PAD Right 1st Toe Gangrene -Follow up with vascular -Continue Lipitor Anemia in chronic illness -Monitor H&H
[2023-10-12 07:41] LABS: Anion Gap 8.5 mEq/L (5.0-15.0); Magnesium 1.8 mg/dL (1.6-2.4); Potassium 4.5 mEq/L (3.5-5.1)
--- NOTE | 2023-10-12 08:50 | P.PN ---
Date of Service: 10/12/23 Subjective: s/p abdominal angiogram with reported stenting and balloon angioplasty per shift summary yesterday. op-report/findings unavailable at this time. denies any new / worsening problems no new issues overnight afebrile ROS: 10 point ROS as noted above, otherwise negative Physical Exam: GEN: Alert, oriented, NAD, upset CV: Regular rate and rhythm, no edema Pulm: Nonlabored respirations on room air, clear bilaterally ABD: soft, nontender, nondistended Integumentary: Gangrenous right 1st toe and 2nd toe with dry eschar on dorsal aspect, with purple discoloration circumferentially on distal ~2/3 of toe. +tender to palpation Neuro: Normal speech, normal affect wilson in place (placed 10/06) Problem List: Gangrene of right 1st/2nd toes peripheral arterial disease coronary artery disease IDDM2 with polyneuropathy ANA on CKD2 Hypertension Hyperlipidemia hx CVA with left-sided deficits Gangrene of right 1st/2nd toes peripheral arterial disease, s/p stent (10/10) h/o of severe PAD, with multiple occlusions, history of multiple stent, history of bypass (fem-pop) surgeries. Lower extremity u/s (10/05): monophasic waveforms in bilateral lower extremities could reflect mod-severe stenosis such as at the iliac vessels CT pelvis (10/05): RLE: Severe stenosis at distal right common femoral artery with long segment occlusion of the right SFA stent and artery. Three-vessel runoff. LLE: moderate stenosis at the left distal common/proximal external iliac artery as well as distally at the left external iliac artery. Dr. Matos, IR-vascular is following initially planning for angiogram yesterday but wasn't done due to patient wanting to discuss with sister and concerns. Now amenable to surgery after discussion 10/09 s/p angio with stenting (10/10). op-report/findings unavailable at this time. Dr. Clifton, General surgery is following and considering amputation pending PRN analgesics / antiemetics Continue empiric cefepime / vanc (10/05-) afebrile, +leukocytosis 10.1 -> 13 (10/11) coronary artery disease continue home plavix, aspirin 81 mg IDDM2 with polyneuropathy accu-checks, SSI titrate semglee as needed ANA on CKD2 CT pelvis (10/06): mild bilateral hydronephrosis. Circumferential bladder wall thickening may be secondary to chronic bladder outlet obstruction renal u/s (10/06): mild bilateral hydronephrosis R > L, benign small left renal cyst given contrast dye during CTA continue to monitor renal function Nephrology consulted creatinine 1.1 -> 1.67 (10/11) Hypertension Hyperlipidemia resume home meds including statin, losartan hx CVA with left-sided deficits continue supportive care. VTE: held secondary to possible procedure Code: Full Dispo: SNF vs HH, ~1-2 days pending tentative amputation, and post-op course
--- NOTE | 2023-10-12 08:55 | P.CNS ---
Date of Consult: 10/12/23 Reason for Consult: gangrene Chief Complaint: Foot ulceration History of Present Illness: Patient is a 62 yo male with a PMH of diabetes, hypertension, hyperlipidemia, peripheral arterial disease, s/p tent, s/p left femoropopliteal bypass, history of CVA with left-sided weakness, COPD, history of carotid artery stenosis s/p carotid endarterectomy who presented to the ED with complaints of right foot discoloration. Found to have gangrene of right foot. MRI negative for osteomyelitis. Infectious disease consulted. Allergies No Known Allergies Allergy (Verified 03/02/22 21:58) Home medications list reviewed: Yes Home Medications: Clopidogrel Bisulfate [Plavix*] 75 mg PO BEDTIME #30 tab 03/15/22 Insulin Detemir [Levemir] 24 unit SQ BID 04/18/22 Metoprolol Tartrate [Lopressor*] 50 mg PO BID 6AM 6PM #60 tab 04/24/22 Altace 1.25 1.25 mg PO BEDTIME 09/29/23 Atorvastatin Calcium [Lipitor] 80 mg PO BEDTIME 09/29/23 Dapagliflozin Propanediol [Farxiga] 10 mg PO DAILY 09/29/23 Furosemide [Lasix*] 40 mg PO BID 09/29/23 Gabapentin 300 mg PO BID 09/29/23 Hydrocodone/Acetaminophen [Hydrocodone-Acetamin 7.5-325] 1 each PO BIDP PRN 09/29/23 Insulin Aspart [Novolog Flexpen] 6 unit SQ AC 09/29/23 Sitagliptin Phosphate [Januvia] 100 mg PO DAILY 09/29/23 Trazodone [Desyrel*] 50 mg PO BEDTIME 09/29/23 cilostazoL [Cilostazol] 100 mg PO BID 09/29/23 predniSONE [Prednisone*] 5 mg PO SEECOM 09/29/23 Losartan Potassium [Cozaar*] 50 mg PO BID #60 tab 10/03/23 Nifedipine Xl [Procardia XL*] 60 mg PO DAILY #30 tab 10/03/23 Pantoprazole [Protonix Tab*] 40 mg PO BIDAC #60 tab 10/03/23 - Past Medical/Surgical History Diabetic: Yes -: Diabetes mellitus type 2not insulin-dependent -: Hypertension -: Unknown additional history -: CVA x3 -: carotid surgery -: CVA x3 -: Peripheral arterial disease with stent placement Psychosocial/ Personal History: Patient lives at home with his , family - Social History Smoking Status: Current every day smoker Alcohol use: No CD- Drugs: No Caffeine use: Yes Review of Systems Integumentary: As per HPI Physical Examination Temp Pulse Resp BP Pulse Ox 97.1 F 99 H 16 118/56 L 93 10/12/23 08:00 10/12/23 08:00 10/12/23 08:00 10/12/23 08:00 10/12/23 08:00 General: In no apparent distress, Oriented x3 HEENT: Atraumatic, Normocephalic Respiratory: Clear to auscultation bilaterally, Normal air movement Cardiovascular: No edema, Regular rate/rhythm Gastrointestinal: Normal bowel sounds, Soft and benign Integumentary: Other (right 1st and 2nd toe gangrene) Neurological: Normal speech Laboratory Data - Reviewed Microbiology Data - Reviewed Imagings Data: - Reviewed Conclusions/Impression: Problem List Gangrene of right 1st and 2nd toes Peripheral Arterial Disease Diabetes Mellitus type II Coronary Artery Disease Chronic Kidney Disease II Hypertension Hyperlipidemia Gangrene of right 1st & 2nd toes Peripheral Arterial Disease - CTA lower extremity 10/05: " 1. Right lower extremity: Severe stenosis at the distal right common femoral artery with long segment occlusion of the right SFA stent and artery. Three-vessel runoff . 2. Left lower extremity: Moderate stenosis at the left distal common/proximal external iliac artery as well as dis tally at the left external iliac artery. A left femoropopliteal bypass graft is present which has a severe stenosis proximally but is otherwise patent. The left SFA is occluded along much of its course. Two of the runoff vessels are patent. 3. Mild bilateral hydronephrosis. Circumferential bladder wall thickening may be secondary to chronic bladder outlet obstruction" - underwent angiogram 10/10 - Has been on Cefepime and Vancomycin (10/05) Recommendations - Continue Cefepime and Vancomycin for now. - pending possible amputation - monitor CBC, BMP vanco trough - continue supportive care Case discussed with Rafaela Nix
[2023-10-12 10:10] LABS: Absolute Basophils 0.1 K/uL (0-0.5); Absolute Eosinophils 0.1 K/uL (0-0.5); Absolute Lymphocytes (CBC) 0.5 K/uL (0.7-4.9); Absolute Monocytes 1.3 K/uL (0.1-1.3); Basophils % 0.4 % (0-1.3); Eosinophils % 0.9 % (0-4.4); Hematocrit 26.8 % (39.6-49.0); Hemoglobin 8.7 g/dL (13.6-17.9); Lymphocytes % 4.2 % (15.3-44.8); MCH 25.8 pg (27.0-35.0); MCHC 32.6 g/dL (32.0-36.0); Monocytes % 9.8 % (3.3-12.3); Neutrophils % 84.7 % (41.7-73.7); Platelets 356 thou/uL (152-406); RBC Red Blood Cell Count 3.38 M/uL (4.33-5.43); Red Cell Distribution Width 19.6 % (12.1-15.2)
[2023-10-12] MEDS: NA CHLORIDE 0.9% 1,000 ML IV SCH (18:57)
--- NOTE | 2023-10-12 20:53 | P.PN ---
Date of Service: 10/12/23 Vital Signs Temp Pulse Resp BP Pulse Ox 97.2 F 98 H 14 112/56 L 92 10/12/23 15:57 10/12/23 15:57 10/12/23 15:57 10/12/23 15:57 10/12/23 15:57 Medications Acetaminophen (Acetaminophen 500 Mg Tab) 500 mg PO Q4HP PRN PRN Reason: Pain scale 2-4 (Mild) Hydrocodone Bitart/Acetaminophen (Hydrocodone/Apap 7.5/325 Mg Tab) 1 tab PO BIDP PRN PRN Reason: Pain scale 5-7 (Moderate) Last Admin: 10/11/23 07:57 Dose: 1 tab Atorvastatin Calcium (Atorvastatin 80 Mg Tab) 80 mg PO BEDTIME [facility] Last Admin: 10/11/23 21:46 Dose: 80 mg Cilostazol (Cilostazol 100 Mg Tab) 100 mg PO BID [facility] Last Admin: 10/12/23 09:36 Dose: 100 mg Clopidogrel Bisulfate (Clopidogrel 75 Mg Tablet) 75 mg PO BEDTIME [facility] Last Admin: 10/11/23 21:46 Dose: 75 mg Gabapentin (Gabapentin 300 Mg Cap) 300 mg PO BID [facility] Last Admin: 10/12/23 09:34 Dose: 300 mg Home Med (Dapagliflozin Propanediol [Farxiga]) 10 mg PO DAILY [facility] Last Admin: 10/12/23 09:00 Dose: Not Given Hydralazine HCl (Hydralazine Hcl 20 Mg/Ml Vial) 10 mg IV Q6HP PRN PRN Reason: FOR SBP>160 OR DBP>100 [facility] Last Admin: 10/11/23 21:56 Dose: 10 mg Cefepime HCl 1 gm/ Sodium (Chloride) 100 mls @ 200 mls/hr IV Q12HR [facility]; Protocol Last Admin: 10/12/23 09:00 Dose: 100 mls Vancomycin HCl 1.5 gm/ Sodium (Chloride) 500 mls @ 333.333 mls/hr IVPB Q36H [facility] Sodium Chloride (Ns 1000 Ml Ivbag) 1,000 mls @ 100 mls/hr IV .Q10H [facility] Insulin Glargine (Insulin Glargine 100 Unit/Ml) 24 unit SQ BID [facility] Last Admin: 10/12/23 09:34 Dose: 24 unit Insulin Human Lispro (Insulin Lispro 100 Unit/Ml) 6 unit SQ AC [facility] Last Admin: 10/12/23 18:11 Dose: 6 unit Insulin Human Regular (Insulin Regular (Human) 100 Unit/Ml) 0 unit SQ ACHS [facility]; Protocol Last Admin: 10/12/23 16:30 Dose: Not Given Losartan Potassium (Losartan Potassium 50 Mg Tablet) 50 mg PO BID [facility] Last Admin: 10/12/23 09:34 Dose: 50 mg Metoprolol Tartrate (Metoprolol Tar 50 Mg Tab) 50 mg PO BID 6AM 6PM [facility] Last Admin: 10/12/23 18:11 Dose: 50 mg Morphine Sulfate (Morphine 2 Mg/Ml Syr) 2 mg IV Q4H PRN PRN Reason: Pain scale 8-10 (Severe) Last Admin: 10/12/23 14:52 Dose: 2 mg Ondansetron HCl (Ondansetron 4 Mg/2 Ml Vial) 4 mg IV Q6HP PRN PRN Reason: NAUSEA / VOMITING Sterile Water (Water For Inj,Sterile 10 Ml) 20 ml IV UD PRN PRN Reason: DILUTION OF MED Last Admin: 10/09/23 22:59 Dose: 20 ml Microbiology Results 10/06/23 17:53 Blood - Blood Aerobic Blood Culture - Final No growth in 5 days. 10/06/23 17:53 Blood - Blood Anaerobic Blood Culture - Final 10/06/23 17:55 Blood - Blood Aerobic Blood Culture - Final No growth in 5 days. 10/06/23 17:55 Blood - Blood Anaerobic Blood Culture - Final Assessment/ Plan: Nephrology No dyspnea No chest pain No acute events overnight Vitals, medications, blood work and imaging reviewed in the chart NAD. MMM. NCAT. Normal Respiratory Effort. S1S2. ND Abd. No C/C/E. No rash. AAO. Normal speech. RLE Distal gangrene Gunderson Light Stage I ANA following contrast exposure CKD II with Proteinuria -No NSAIDs -Continue Farxiga -Continue IVF Hyponatremia -Continue IVF with NS HTN with CKD -Continue Metoprolol -Continue Losartan DM II with CKD, Polyneuropathy & Peripheral Angiopathy -Continue Farxiga -Continue Gabapentin -RISS PAD Right 1st Toe Gangrene -Follow up with vascular -Continue Lipitor -Counseled regarding the possibility of amputation Anemia in chronic illness -Monitor H&H Case reviewed with Dr. Mace
[2023-10-13 09:30] LABS: Absolute Basophils 0.1 K/uL (0-0.5); Absolute Eosinophils 0.2 K/uL (0-0.5); Absolute Lymphocytes (CBC) 0.7 K/uL (0.7-4.9); Absolute Monocytes 0.9 K/uL (0.1-1.3); Absolute Neutrophil 8.6 K/uL (1.8-8.0); Basophils % 0.8 % (0-1.3); Hematocrit 26.2 % (39.6-49.0); Hemoglobin 8.6 g/dL (13.6-17.9); Lymphocytes % 6.5 % (15.3-44.8); MCH 25.9 pg (27.0-35.0); MCHC 32.8 g/dL (32.0-36.0); MCV 79.1 fL (80-100); MPV 7.1 fL (7.6-11.3); Monocytes % 8.8 % (3.3-12.3); Neutrophils % 81.9 % (41.7-73.7); Platelets 306 thou/uL (152-406); RBC Red Blood Cell Count 3.32 M/uL (4.33-5.43); Red Cell Distribution Width 19.9 % (12.1-15.2)
--- NOTE | 2023-10-13 09:33 | P.PN ---
Date of Service: 10/13/23 Subjective: discussed at length with patient need to amputate gangrenous right 1st/2nd toe amenable to amputation of the affected toes after discussion no issues overnight afebrile reports never told/diagnosed he had hepatitis C ROS: 10 point ROS as noted above, otherwise negative Physical Exam: GEN: Alert, oriented, NAD CV: Regular rate and rhythm, no edema Pulm: Nonlabored respirations on room air, clear bilaterally ABD: soft, nontender, nondistended Integumentary: Gangrenous right 1st toe and 2nd toe with dry gangrene on dorsal aspect on distal ~2/3 of toe. +tender to palpation Neuro: Normal speech, normal affect wilson in place (placed 10/06) Problem List: Gangrene of right 1st/2nd toes peripheral arterial disease, s/p SFA stent and balloon angioplasty x3 (10/10) coronary artery disease IDDM2 with polyneuropathy ANA on CKD2 Hypertension Hyperlipidemia hx CVA with left-sided deficits Gangrene of right 1st/2nd toes peripheral arterial disease, s/p SFA stent and balloon angioplasty x3 (10/10) h/o of severe PAD, with multiple occlusions, history of multiple stent, history of bypass (fem-pop) surgeries. Lower extremity u/s (10/05): monophasic waveforms in bilateral lower extremities could reflect mod-severe stenosis such as at the iliac vessels CT pelvis (10/05): RLE: Severe stenosis at distal right common femoral artery with long segment occlusion of the right SFA stent and artery. Three-vessel runoff. LLE: moderate stenosis at the left distal common/proximal external iliac artery as well as distally at the left external iliac artery. Dr. Matos, IR-vascular is following s/p angiogram (10/10) found to have critical limb ischemia, with 100% occlusion of superficial femoral artery, severe popliteal stenosis (~90%), and 100% stenosis of anterior/posterior tibial artery s/p stenting and balloon angioplasty of superficial femoral artery s/p balloon angioplasty of right popliteal artery and right posterior tibial artery Dr. Clifton, General surgery is following and considering amputation discussed at length with patient need to amputate gangrenous right 1st/2nd toe amenable to amputation of the affected toes after discussion. Likely to be done early next week PRN analgesics / antiemetics Continue empiric cefepime / vanc (10/05-) afebrile, +leukocytosis resolved (10/12) coronary artery disease continue home plavix, aspirin 81 mg IDDM2 with polyneuropathy accu-checks, SSI titrate semglee as needed ANA on CKD2 CT pelvis (10/06): mild bilateral hydronephrosis. Circumferential bladder wall thickening may be secondary to chronic bladder outlet obstruction renal u/s (10/06): mild bilateral hydronephrosis R > L, benign small left renal cyst given contrast dye during CTA continue to monitor renal function Nephrology consulted creatinine improving Hypertension Hyperlipidemia resume home meds including statin, losartan hx CVA with left-sided deficits continue supportive care. VTE: held secondary to possible procedure Code: Full Dispo: SNF likely next monday pending tentative amputation, and post-op course
[2023-10-13 09:46] LABS: Anion Gap 8.1 mEq/L (5.0-15.0); Magnesium 1.8 mg/dL (1.6-2.4); Potassium 5.1 mEq/L (3.5-5.1)
[2023-10-13] MEDS: VANCOMYCIN 1.5 GM in NA CHLORIDE 0.9% 500 ML IVPB SCH (11:49)
--- NOTE | 2023-10-13 15:20 | P.PN ---
Date of Service: 10/13/23 Infectious Disease Progress Note Chief Complaint: Foot ulceration Subjective: No acute events overnight. In no apparent distress. No new/worsening complaints at this time. Physical Examination Temp Pulse Resp BP Pulse Ox 97.4 F 98 H 18 197/79 H 95 10/13/23 12:00 10/13/23 12:00 10/13/23 12:00 10/13/23 12:00 10/13/23 12:00 General: In no apparent distress, Oriented x3 HEENT: Atraumatic, Normocephalic Respiratory: Clear to auscultation bilaterally, Normal air movement Cardiovascular: No edema, Regular rate/rhythm Gastrointestinal: Normal bowel sounds, Soft and benign Integumentary: right 1st and 2nd toe gangrene Neurological: Normal speech Laboratory Data - Reviewed Microbiology Data - Reviewed Imagings Data: - Reviewed Assessment and Plan Problem List Gangrene of right 1st and 2nd toes Peripheral Arterial Disease Diabetes Mellitus type II Coronary Artery Disease Chronic Kidney Disease II Hypertension Hyperlipidemia Gangrene of right 1st & 2nd toes Peripheral Arterial Disease - CTA lower extremity 10/05: " 1. Right lower extremity: Severe stenosis at the distal right common femoral artery with long segment occlusion of the right SFA stent and artery. Three-vessel runoff . 2. Left lower extremity: Moderate stenosis at the left distal common/proximal external iliac artery as well as distally at the left external iliac artery. A left femoropopliteal bypass graft is present which has a severe stenosis proximally but is otherwise patent. The left SFA is occluded along much of its course. Two of the runoff vessels are patent. 3. Mild bilateral hydronephrosis. Circumferential bladder wall thickening may be secondary to chronic bladder outlet obstruction" - underwent angiogram 10/10 with findings of critical limb ischemia, with complete 100% occlusion of the superficial femoral artery, severe stenosis in the popliteal artery and complete occlusion of the anterior tibial and posterior tibial arteries. Right superficial femoral stent, right popliteal stent. - Has been on Cefepime and Vancomycin (10/05) Recommendations - Continue Cefepime and Vancomycin for now. - pending amputation of affected toes on 10/15 - monitor CBC, BMP vanco trough - strict blood glucose control Case discussed with Rafaela Nix
--- NOTE | 2023-10-13 22:15 | P.PN ---
Date of Service: 10/13/23 Vital Signs Temp Pulse Resp BP Pulse Ox 97.9 F 77 17 149/67 H 94 10/13/23 16:00 10/13/23 20:48 10/13/23 16:00 10/13/23 20:48 10/13/23 16:00 Medications Acetaminophen (Acetaminophen 500 Mg Tab) 500 mg PO Q4HP PRN PRN Reason: Pain scale 2-4 (Mild) Hydrocodone Bitart/Acetaminophen (Hydrocodone/Apap 7.5/325 Mg Tab) 1 tab PO BIDP PRN PRN Reason: Pain scale 5-7 (Moderate) Last Admin: 10/11/23 07:57 Dose: 1 tab Atorvastatin Calcium (Atorvastatin 80 Mg Tab) 80 mg PO BEDTIME [facility] Last Admin: 10/13/23 20:51 Dose: 80 mg Cilostazol (Cilostazol 100 Mg Tab) 100 mg PO BID [facility] Last Admin: 10/13/23 21:02 Dose: 100 mg Clopidogrel Bisulfate (Clopidogrel 75 Mg Tablet) 75 mg PO BEDTIME [facility] Last Admin: 10/13/23 20:51 Dose: 75 mg Gabapentin (Gabapentin 300 Mg Cap) 300 mg PO BID [facility] Last Admin: 10/13/23 20:51 Dose: 300 mg Home Med (Dapagliflozin Propanediol [Farxiga]) 10 mg PO DAILY [facility] Last Admin: 10/13/23 09:00 Dose: Not Given Hydralazine HCl (Hydralazine Hcl 20 Mg/Ml Vial) 10 mg IV Q6HP PRN PRN Reason: FOR SBP>160 OR DBP>100 [facility] Last Admin: 10/11/23 21:56 Dose: 10 mg Cefepime HCl 1 gm/ Sodium (Chloride) 100 mls @ 200 mls/hr IV Q12HR [facility]; Protocol Last Admin: 10/13/23 20:49 Dose: 100 mls Vancomycin HCl 1.5 gm/ Sodium (Chloride) 500 mls @ 333.333 mls/hr IVPB Q36H [facility] Last Admin: 10/13/23 11:49 Dose: 500 mls Sodium Chloride (Ns 1000 Ml Ivbag) 1,000 mls @ 100 mls/hr IV .Q10H [facility] Last Admin: 10/13/23 09:34 Dose: 1,000 mls Insulin Glargine (Insulin Glargine 100 Unit/Ml) 24 unit SQ BID [facility] Last Admin: 10/13/23 20:49 Dose: 24 unit Insulin Human Lispro (Insulin Lispro 100 Unit/Ml) 6 unit SQ AC [facility] Last Admin: 10/13/23 16:41 Dose: 6 unit Insulin Human Regular (Insulin Regular (Human) 100 Unit/Ml) 0 unit SQ ACHS [facility]; Protocol Last Admin: 10/13/23 20:59 Dose: 5 unit Losartan Potassium (Losartan Potassium 50 Mg Tablet) 50 mg PO BID [facility] Last Admin: 10/13/23 20:50 Dose: 50 mg Metoprolol Tartrate (Metoprolol Tar 50 Mg Tab) 50 mg PO BID 6AM 6PM [facility] Last Admin: 10/13/23 18:00 Dose: 50 mg Morphine Sulfate (Morphine 2 Mg/Ml Syr) 2 mg IV Q4H PRN PRN Reason: Pain scale 8-10 (Severe) Last Admin: 10/13/23 16:45 Dose: 2 mg Ondansetron HCl (Ondansetron 4 Mg/2 Ml Vial) 4 mg IV Q6HP PRN PRN Reason: NAUSEA / VOMITING Sterile Water (Water For Inj,Sterile 10 Ml) 20 ml IV UD PRN PRN Reason: DILUTION OF MED Last Admin: 10/09/23 22:59 Dose: 20 ml Microbiology Results 10/06/23 17:53 Blood - Blood Aerobic Blood Culture - Final No growth in 5 days. 10/06/23 17:53 Blood - Blood Anaerobic Blood Culture - Final 10/06/23 17:55 Blood - Blood Aerobic Blood Culture - Final No growth in 5 days. 10/06/23 17:55 Blood - Blood Anaerobic Blood Culture - Final Assessment/ Plan: Nephrology No dyspnea No chest pain No acute events overnight Vitals, medications, blood work and imaging reviewed in the chart NAD. MMM. NCAT. Normal Respiratory Effort. S1S2. ND Abd. No C/C/E. No rash. AAO. Normal speech. RLE Distal gangrene Gunderson Light Stage I ANA following contrast exposure CKD II with Proteinuria -No NSAIDs -Continue Farxiga -Continue IVF Hyponatremia -Continue IVF with NS HTN with CKD -Continue Metoprolol -Continue Losartan DM II with CKD, Polyneuropathy & Peripheral Angiopathy -Continue Farxiga -Continue Gabapentin -RISS PAD Right 1st Toe Gangrene -Follow up with vascular -Continue Lipitor -Counseled regarding the possibility of amputation Anemia in chronic illness -Monitor H&H Case reviewed with Dr. Mace
[2023-10-14 05:43] LABS: Anion Gap 10.3 mEq/L (5.0-15.0); Magnesium 1.6 mg/dL (1.6-2.4); Phosphorus 2.5 mg/dL (2.5-4.9); Potassium 4.3 mEq/L (3.5-5.1)
[2023-10-14] MEDS: MAGNESIUM SULFATE 1 gm IVPB 1 GM/100 ML BAG IV ONE (09:00)
[2023-10-14] MEDS: POTASS/SODIUM PHOSPHATE 1 PKT POWD.PACK PO SCH (09:01)
--- NOTE | 2023-10-14 11:05 | P.PN ---
Date of Service: 10/14/23 Subjective: Stable. no issues overnight tentative plan for amputation early next week ~Monday afebrile ROS: 10 point ROS as noted above, otherwise negative Physical Exam: GEN: Alert, oriented, NAD CV: Regular rate and rhythm, no edema Pulm: Nonlabored respirations on room air, clear bilaterally ABD: soft, nontender, nondistended Integumentary: Gangrenous right 1st toe and 2nd toe with dry gangrene on dorsal aspect on distal ~3/4of toe, extends more proximally on plantar aspect of 2nd toe. 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 Lower extremity u/s (10/05): monophasic waveforms in bilateral lower extremities could reflect mod-severe stenosis such as at the iliac vessels CT pelvis (10/05): RLE: Severe stenosis at distal right common femoral artery with long segment occlusion of the right SFA stent and artery. Three-vessel runoff. LLE: moderate stenosis at the left distal common/proximal external iliac artery as well as distally at the left external iliac artery. Dr. Matos, IR-vascular is following s/p angiogram (10/10) found to have critical limb ischemia, with 100% occlusion of superficial femoral artery, severe popliteal stenosis (~90%), and 100% stenosis of anterior/posterior tibial artery s/p stenting and balloon angioplasty of superficial femoral artery s/p balloon angioplasty of right popliteal artery and right posterior tibial artery Dr. Clifton, General surgery is following and considering amputation discussed at length with patient need to amputate gangrenous right 1st/2nd toe amenable to amputation of the affected toes after discussion. tentaively to be done early next week ~Monday. PRN analgesics / antiemetics Continue empiric cefepime / vanc (10/05-) afebrile, +leukocytosis resolved (10/12) coronary artery disease continue home plavix, aspirin 81 mg IDDM2 with polyneuropathy accu-checks, SSI titrate semglee as needed ANA on CKD2, resolved CT pelvis (10/06): mild bilateral hydronephrosis. Circumferential bladder wall thickening may be secondary to chronic bladder outlet obstruction renal u/s (10/06): mild bilateral hydronephrosis R > L, benign small left renal cyst given contrast dye during CTA continue to monitor renal function Nephrology consulted resolved Hypertension Hyperlipidemia resume home meds including statin, losartan hx CVA with left-sided deficits continue supportive care. Hep-C antibody positive tested positive for hep-c antibody reports hes never been told/diagnosed with hep-c 2021 hep c PCR showed no viral load, however no antibody done at that time, so unclear reports risky behavior >30 yrs ago, no recent sharing needles or tattoos reports had bleed within last 2 years needing multiple >4-6 units of blood Code: Full Dispo: SNF likely next monday pending tentative amputation, and post-op course will need insurance auth
[2023-10-14] MEDS: VANCOMYCIN 1.5 GM in NA CHLORIDE 0.9% 500 ML IVPB SCH (11:49)
--- NOTE | 2023-10-14 21:57 | P.PN ---
Date of Service: 10/14/23 Vital Signs Temp Pulse Resp BP Pulse Ox 97.6 F 92 H 18 143/67 H 95 10/14/23 16:00 10/14/23 18:49 10/14/23 20:48 10/14/23 18:49 10/14/23 20:48 Medications Acetaminophen (Acetaminophen 500 Mg Tab) 500 mg PO Q4HP PRN PRN Reason: Pain scale 2-4 (Mild) Hydrocodone Bitart/Acetaminophen (Hydrocodone/Apap 7.5/325 Mg Tab) 1 tab PO BIDP PRN PRN Reason: Pain scale 5-7 (Moderate) Last Admin: 10/11/23 07:57 Dose: 1 tab Atorvastatin Calcium (Atorvastatin 80 Mg Tab) 80 mg PO BEDTIME [facility] Last Admin: 10/14/23 20:50 Dose: 80 mg Cilostazol (Cilostazol 100 Mg Tab) 100 mg PO BID [facility] Last Admin: 10/14/23 20:50 Dose: 100 mg Clopidogrel Bisulfate (Clopidogrel 75 Mg Tablet) 75 mg PO BEDTIME [facility] Last Admin: 10/14/23 20:50 Dose: 75 mg Gabapentin (Gabapentin 300 Mg Cap) 300 mg PO BID [facility] Last Admin: 10/14/23 20:50 Dose: 300 mg Home Med (Dapagliflozin Propanediol [Farxiga]) 10 mg PO DAILY [facility] Last Admin: 10/14/23 09:00 Dose: Not Given Hydralazine HCl (Hydralazine Hcl 20 Mg/Ml Vial) 10 mg IV Q6HP PRN PRN Reason: FOR SBP>160 OR DBP>100 [facility] Last Admin: 10/14/23 17:09 Dose: 10 mg Cefepime HCl 1 gm/ Sodium (Chloride) 100 mls @ 200 mls/hr IV Q12HR [facility]; Protocol Last Admin: 10/14/23 20:49 Dose: 100 mls Sodium Chloride (Ns 1000 Ml Ivbag) 1,000 mls @ 100 mls/hr IV .Q10H [facility] Last Admin: 10/14/23 11:49 Dose: 1,000 mls Vancomycin HCl 1.5 gm/ Sodium (Chloride) 500 mls @ 333.333 mls/hr IVPB Q24H [facility] Last Admin: 10/14/23 11:49 Dose: 500 mls Insulin Glargine (Insulin Glargine 100 Unit/Ml) 24 unit SQ BID [facility] Last Admin: 10/14/23 20:49 Dose: 24 unit Insulin Human Lispro (Insulin Lispro 100 Unit/Ml) 6 unit SQ AC [facility] Last Admin: 10/14/23 17:09 Dose: 6 unit Insulin Human Regular (Insulin Regular (Human) 100 Unit/Ml) 0 unit SQ ACHS [facility]; Protocol Last Admin: 10/14/23 20:49 Dose: 3 unit Losartan Potassium (Losartan Potassium 50 Mg Tablet) 50 mg PO BID [facility] Last Admin: 10/14/23 20:50 Dose: 50 mg Metoprolol Tartrate (Metoprolol Tar 50 Mg Tab) 50 mg PO BID 6AM 6PM [facility] Last Admin: 10/14/23 18:18 Dose: 50 mg Morphine Sulfate (Morphine 2 Mg/Ml Syr) 2 mg IV Q4H PRN PRN Reason: Pain scale 8-10 (Severe) Last Admin: 10/14/23 20:48 Dose: 2 mg Ondansetron HCl (Ondansetron 4 Mg/2 Ml Vial) 4 mg IV Q6HP PRN PRN Reason: NAUSEA / VOMITING Sterile Water (Water For Inj,Sterile 10 Ml) 20 ml IV UD PRN PRN Reason: DILUTION OF MED Last Admin: 10/09/23 22:59 Dose: 20 ml Microbiology Results 10/06/23 17:53 Blood - Blood Aerobic Blood Culture - Final No growth in 5 days. 10/06/23 17:53 Blood - Blood Anaerobic Blood Culture - Final 10/06/23 17:55 Blood - Blood Aerobic Blood Culture - Final No growth in 5 days. 10/06/23 17:55 Blood - Blood Anaerobic Blood Culture - Final Assessment/ Plan: Nephrology No dyspnea No chest pain No acute events overnight Vitals, medications, blood work and imaging reviewed in the chart NAD. MMM. NCAT. Normal Respiratory Effort. S1S2. ND Abd. No C/C/E. No rash. AAO. Normal speech. RLE Distal gangrene Gunderson Light Stage I ANA following contrast exposure CKD II with Proteinuria -No NSAIDs -Continue Farxiga -Continue IVF Hyponatremia -Continue IVF with NS HTN with CKD -Continue Metoprolol -Continue Losartan DM II with CKD, Polyneuropathy & Peripheral Angiopathy -Continue Farxiga -Continue Gabapentin -RISS PAD Right 1st Toe Gangrene -Follow up with vascular -Continue Lipitor -Counseled regarding the possibility of amputation Anemia in chronic illness -Monitor H&H Case reviewed with Dr. Mace
[2023-10-14] MEDS: LORAZEPAM 1 MG TABLET PO ONE (23:04)
[2023-10-15 03:54] LABS: Anion Gap 10.3 mEq/L (5.0-15.0); Magnesium 1.8 mg/dL (1.6-2.4); Potassium 4.3 mEq/L (3.5-5.1)
[2023-10-15] MEDS: MAGNESIUM SULFATE 1 gm IVPB 1 GM/100 ML BAG IV ONE (05:42)
--- NOTE | 2023-10-15 10:32 | P.PN ---
Date of Service: 10/15/23 Subjective: tentative plan for amputation tomorrow, will discuss with Dr. Clifton further regarding timing doesn't feel anything is getting worse no issues overnight afebrile ROS: 10 point ROS as noted above, otherwise negative Physical Exam: GEN: Alert, oriented, NAD CV: Regular rate and rhythm, no edema Pulm: Nonlabored respirations on room air, clear bilaterally ABD: soft, nontender, nondistended Integumentary: right 1st toe and 2nd toe with dry gangrene on dorsal aspect on distal ~3/4of toe, extends more proximally on plantar aspect of 2nd toe. 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 Lower extremity u/s (10/05): monophasic waveforms in bilateral lower extremities could reflect mod-severe stenosis such as at the iliac vessels CT pelvis (10/05): RLE: Severe stenosis at distal right common femoral artery with long segment occlusion of the right SFA stent and artery. Three-vessel runoff. LLE: moderate stenosis at the left distal common/proximal external iliac artery as well as distally at the left external iliac artery. Dr. Matos, IR-vascular is following s/p angiogram (10/10) found to have critical limb ischemia, with 100% occlusion of superficial femoral artery, severe popliteal stenosis (~90%), and 100% stenosis of anterior/posterior tibial artery s/p stenting and balloon angioplasty of superficial femoral artery s/p balloon angioplasty of right popliteal artery and right posterior tibial artery Dr. Clifton, General surgery is following discussed at length with patient need to amputate gangrenous right 1st/2nd toe amenable to amputation of the affected toes after discussion. tentative plan for amputation tomorrow, will discuss with Dr. Clifton further regarding timing NPO after midnight PRN analgesics / antiemetics Continue empiric cefepime / vanc (10/05-) afebrile, +leukocytosis resolved (10/12) coronary artery disease continue home plavix, aspirin 81 mg IDDM2 with polyneuropathy accu-checks, SSI titrate semglee as needed ANA on CKD2, resolved CT pelvis (10/06): mild bilateral hydronephrosis. Circumferential bladder wall thickening may be secondary to chronic bladder outlet obstruction renal u/s (10/06): mild bilateral hydronephrosis R > L, benign small left renal cyst given contrast dye during CTA continue to monitor renal function Nephrology consulted resolved Hypertension Hyperlipidemia resume home meds including statin, losartan hx CVA with left-sided deficits continue supportive care. Hep-C antibody positive tested positive for hep-c antibody reports hes never been told/diagnosed with hep-c 2021 hep c PCR showed no viral load, however no antibody done at that time, so unclear reports risky behavior >30 yrs ago, no recent sharing needles or tattoos reports had bleed within last 2 years needing multiple >4-6 units of blood Code: Full Dispo: SNF likely next monday pending tentative amputation, and post-op course will need insurance auth
[2023-10-15] MEDS: NA CHLORIDE 0.9% 1,000 ML IV SCH (14:13)
--- NOTE | 2023-10-15 21:49 | P.PN ---
Date of Service: 10/15/23 Vital Signs Temp Pulse Resp BP Pulse Ox 98.0 F 85 18 178/78 H 99 10/15/23 16:00 10/15/23 16:53 10/15/23 19:06 10/15/23 16:53 10/15/23 19:06 Medications Acetaminophen (Acetaminophen 500 Mg Tab) 500 mg PO Q4HP PRN PRN Reason: Pain scale 2-4 (Mild) Hydrocodone Bitart/Acetaminophen (Hydrocodone/Apap 7.5/325 Mg Tab) 1 tab PO BIDP PRN PRN Reason: Pain scale 5-7 (Moderate) Last Admin: 10/15/23 19:06 Dose: 1 tab Atorvastatin Calcium (Atorvastatin 80 Mg Tab) 80 mg PO BEDTIME [facility] Last Admin: 10/15/23 20:51 Dose: 80 mg Cilostazol (Cilostazol 100 Mg Tab) 100 mg PO BID [facility] Last Admin: 10/15/23 20:51 Dose: 100 mg Clopidogrel Bisulfate (Clopidogrel 75 Mg Tablet) 75 mg PO BEDTIME [facility] Last Admin: 10/15/23 20:51 Dose: 75 mg Gabapentin (Gabapentin 300 Mg Cap) 300 mg PO BID [facility] Last Admin: 10/15/23 20:51 Dose: 300 mg Home Med (Dapagliflozin Propanediol [Farxiga]) 10 mg PO DAILY [facility] Last Admin: 10/15/23 08:45 Dose: Not Given Hydralazine HCl (Hydralazine Hcl 20 Mg/Ml Vial) 10 mg IV Q6HP PRN PRN Reason: FOR SBP>160 OR DBP>100 [facility] Last Admin: 10/14/23 17:09 Dose: 10 mg Cefepime HCl 1 gm/ Sodium (Chloride) 100 mls @ 200 mls/hr IV Q12HR [facility]; Protocol Last Admin: 10/15/23 20:50 Dose: 100 mls Vancomycin HCl 1.5 gm/ Sodium (Chloride) 500 mls @ 333.333 mls/hr IVPB Q24H [facility] Last Admin: 10/15/23 12:38 Dose: 500 mls Sodium Chloride (Ns 1000 Ml Ivbag) 1,000 mls @ 50 mls/hr IV .Q20H [facility] Last Admin: 10/15/23 14:13 Dose: 1,000 mls Insulin Glargine (Insulin Glargine 100 Unit/Ml) 24 unit SQ BID [facility] Last Admin: 10/15/23 20:51 Dose: 24 unit Insulin Human Lispro (Insulin Lispro 100 Unit/Ml) 6 unit SQ AC [facility] Last Admin: 10/15/23 16:53 Dose: 6 unit Insulin Human Regular (Insulin Regular (Human) 100 Unit/Ml) 0 unit SQ ACHS [facility]; Protocol Last Admin: 10/15/23 16:53 Dose: 3 unit Losartan Potassium (Losartan Potassium 50 Mg Tablet) 50 mg PO BID [facility] Last Admin: 10/15/23 20:51 Dose: 50 mg Metoprolol Tartrate (Metoprolol Tar 50 Mg Tab) 50 mg PO BID 6AM 6PM [facility] Last Admin: 10/15/23 16:53 Dose: 50 mg Morphine Sulfate (Morphine 2 Mg/Ml Syr) 2 mg IV Q4H PRN PRN Reason: Pain scale 8-10 (Severe) Last Admin: 10/15/23 17:03 Dose: 2 mg Ondansetron HCl (Ondansetron 4 Mg/2 Ml Vial) 4 mg IV Q6HP PRN PRN Reason: NAUSEA / VOMITING Sterile Water (Water For Inj,Sterile 10 Ml) 20 ml IV UD PRN PRN Reason: DILUTION OF MED Last Admin: 10/09/23 22:59 Dose: 20 ml Microbiology Results 10/06/23 17:53 Blood - Blood Aerobic Blood Culture - Final No growth in 5 days. 10/06/23 17:53 Blood - Blood Anaerobic Blood Culture - Final 10/06/23 17:55 Blood - Blood Aerobic Blood Culture - Final No growth in 5 days. 10/06/23 17:55 Blood - Blood Anaerobic Blood Culture - Final Assessment/ Plan: Nephrology No dyspnea No chest pain No acute events overnight Vitals, medications, blood work and imaging reviewed in the chart NAD. MMM. NCAT. Normal Respiratory Effort. S1S2. ND Abd. No C/C/E. No rash. AAO. Normal speech. RLE Distal gangrene Gunderson Light Stage I ANA following contrast exposure CKD II with Proteinuria -No NSAIDs -Continue Farxiga -Reduce IVF Hyponatremia -Encourage nutrition HTN with CKD -Continue Metoprolol -Continue Losartan DM II with CKD, Polyneuropathy & Peripheral Angiopathy -Continue Farxiga -Continue Gabapentin -RISS PAD Right 1st Toe Gangrene -Follow up with vascular -Continue Lipitor -Counseled regarding the possibility of amputation Anemia in chronic illness -Monitor H&H Case reviewed with Dr. Mace
[2023-10-16 06:35] LABS: Anion Gap 8.1 mEq/L (5.0-15.0); Magnesium 1.8 mg/dL (1.6-2.4); Potassium 4.1 mEq/L (3.5-5.1)
[2023-10-16 07:19] LABS: Hematocrit 25.2 % (39.6-49.0); Hemoglobin 8.2 g/dL (13.6-17.9); MCH 25.8 pg (27.0-35.0); MCHC 32.7 g/dL (32.0-36.0); MCV 78.8 fL (80-100); MPV 7.1 fL (7.6-11.3); Platelets 329 thou/uL (152-406); Red Cell Distribution Width 19.9 % (12.1-15.2)
--- NOTE | 2023-10-16 08:04 | P.PN ---
Date of Service: 10/16/23 Subjective: tentative plan for amputation today. no issues overnight afebrile ROS: 10 point ROS as noted above, otherwise negative Physical Exam: GEN: Alert, oriented, NAD CV: Regular rate and rhythm, no edema Pulm: Nonlabored respirations on room air, clear bilaterally ABD: soft, nontender, nondistended Integumentary: right 1st toe and 2nd toe with dry gangrene. Neuro: Normal speech, normal affect wilson in place (placed 10/06) Problem List: Gangrene of right 1st/2nd toes peripheral arterial disease, s/p SFA stent and balloon angioplasty x3 (10/10) coronary artery disease IDDM2 with polyneuropathy ANA on CKD2, resolved Hypertension Hyperlipidemia hx CVA with left-sided deficits Hep-C antibody positive Gangrene of right 1st/2nd toes peripheral arterial disease, s/p SFA stent and balloon angioplasty x3 (10/10) h/o of severe PAD, with multiple occlusions, history of multiple stent, history of bypass (fem-pop) surgeries. Lower extremity u/s (10/05): monophasic waveforms in bilateral lower extremities could reflect mod-severe stenosis such as at the iliac vessels CT pelvis (10/05): RLE: Severe stenosis at distal right common femoral artery with long segment occlusion of the right SFA stent and artery. Three-vessel runoff. LLE: moderate stenosis at the left distal common/proximal external iliac artery as well as distally at the left external iliac artery. Dr. Matos, IR-vascular is following s/p angiogram (10/10) found to have critical limb ischemia, with 100% occlusion of superficial femoral artery, severe popliteal stenosis (~90%), and 100% stenosis of anterior/posterior tibial artery s/p stenting and balloon angioplasty of superficial femoral artery s/p balloon angioplasty of right popliteal artery and right posterior tibial artery Dr. Clifton, General surgery is following discussed at length with patient need to amputate gangrenous right 1st/2nd toe amenable to amputation of the affected toes after discussion. NPO for tentative amputation today. Unsure on timing of surgery PRN analgesics / antiemetics Continue empiric cefepime / vanc (10/05-) afebrile, +leukocytosis resolved (10/12) coronary artery disease continue home plavix, aspirin 81 mg IDDM2 with polyneuropathy accu-checks, SSI titrate semglee as needed ANA on CKD2, resolved CT pelvis (10/06): mild bilateral hydronephrosis. Circumferential bladder wall thickening may be secondary to chronic bladder outlet obstruction renal u/s (10/06): mild bilateral hydronephrosis R > L, benign small left renal cyst given contrast dye during CTA continue to monitor renal function Nephrology consulted resolved Hypertension Hyperlipidemia resume home meds including statin, losartan hx CVA with left-sided deficits continue supportive care. 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
[2023-10-16 08:51] LABS: Hepatitis C RNA (PCR) <15 IU/mL; Hepatitis C Virus RNA (PCR)log <1.18 log IU/mL
[2023-10-16] MEDS ORDERED: ONDANSETRON 4 MG/2 ML VIAL ONE (09:41)
[2023-10-16] MEDS ORDERED: FENTANYL CITR 100 MCG/2 ML ONE (09:41)
[2023-10-16] MEDS ORDERED: LIDOCAINE 2% MPF 5 ML VIAL ONE (09:41)
[2023-10-16] MEDS ORDERED: MIDAZOLAM HCL 2 MG/2 ML INJ ONE (09:41)
[2023-10-16] MEDS ORDERED: propofoL 200 MG/20 ML VIAL IV ONE (09:41)
[2023-10-16] MEDS: NA CHLORIDE 0.9% 1,000 ML ONE (10:00)
[2023-10-16] MEDS ORDERED: dexAMETHasone 4 MG/ML VIAL ONE (10:04)
[2023-10-16] MEDS ORDERED: EPINEPHRINE 1 MG/ML VIAL ONE (10:04)
[2023-10-16] MEDS ORDERED: Phenylephrine HCl 10 MG/ML 1 ML VIAL ONE (10:52)
--- NOTE | 2023-10-16 11:14 | P.BOP ---
Preoperative diagnosis: gangrenous first and second toe, severe PVD Postoperative diagnosis: same Primary procedure: 1. Amputation gangrenous right first toe Secondary procedure: 2. Amputation gangrenous right second toe Estimated blood loss: <1cc Specimen: 1st and second toe Findings: barely any blood seen during procedure Anesthesia: General Complications: None Transferred to: Recovery Room Condition: Good
[2023-10-16] MEDS: MAGNESIUM SULFATE 1 gm IVPB 1 GM/100 ML BAG IV ONE (12:47)
--- NOTE | 2023-10-16 14:47 | PN ---
Date of Progress Note: 10/16/2023 Reason For Service: Gangrene of the first and second toe. Subjective: This is the case of a 62-year-old patient with peripheral vascular disease, recently had an angioplasty with revascularization of the right leg including femoral vessels and popliteals. I discussed the case last Monday with Dr. Claros which is the vascular doctor working in this case, e primary doctor, and they were able to open some of the blood vessels proximal in the right leg. Th e first and second toe already gangrenous. There was not much to save. They are trying to save basi gail the foot or at least if we have to go in the future any amputation higher, at least have a bett er chance for healing including the once we are supposed to remove. The patient gave the consent for the first and second toe amputation with benefits, alternatives, and risks fully explained, which in clude, but not limited to, infection, bleeding, damage to adjacent structures, anesthesia complicatio n, nonhealing wound, [place], and even . He also understands this may not relieve any symptoms. He might need more than one surgical intervention. He also understands in the next few weeks, we will b e watching over that area to see the delineation, to see any more proximal amputation that have to be done. He was advised very important to follow up with his doctor's recommendations, not only now bu t also in the future to diminish the chance of more higher amputation too soon. ÓSCAR/KATERYNA Voice ID: [id number] Report ID: [id number]
--- NOTE | 2023-10-16 21:47 | OP ---
Date of Procedure: 10/16/2023 Surgeon: Gonzalez Clifton MD Diagnosis: Gangrenous first and second toe, severe peripheral vascular disease, diabetes. Indications: This is a case of a 62-year-old patient with multiple medical problems, severe peripher al vascular disease in the right lower extremity, multiple attempts at the granulation. He has been followed as an outpatient by the vascular doctors and admitted about a week and a half ago with cellu litis of the foot. He has been on antibiotics since then. During the office stay, he had a revascul arization of the right femoral artery at least superficial and there was also noticed some severe dis ease in the popliteal. This was done several days ago. Now the area delineated to just the first an d second toe. I discussed with him the options of below-knee amputation. He is not the one to do th at at this moment. He understands that anything below that it may not heal properly. He noticed the first and second toe are black and those are the areas he see at this moment, not any other ischemic changes, even though he was explained. He will only allow us to remove to right first and second to e. Because of his cellulitis in the area, we believed at least that should be done with benefits, al ternatives, and risks of amputation of the right first and second toe fully explained, which include, but not limited to infection, bleeding, damage to adjacent structures, anesthesia complication, nonh ealing wound, [place], and even . He also understands this may not relieve his symptoms, may not hea l completely. He may require wound care. He may even require higher amputations. He understood, bu t that is what he is going to allow us at this moment, so we discussed that with the rest of the [facility] staff, and we will proceed accordingly. Description Of Procedure: The patient was brought to the operating room and placed in supine positio n. Anesthesia was without complication. Right foot was prepped and draped in sterile fashion. A ti me-out was called followed by amputation first of the right first toe. We made an incision in that a niles. We tried to minimize too much burning. Incision was carried down until we found the metatarsop halangeal joint. We amputated that region. The head of the metatarsal tarsal bone was excoriated. Unfortunately, bleeding was just minimal, almost nonexistent. The area was irrigated profusely. We proceeded to cover the bone area with 3-0 chromic. We put at least suture mattress just to approxima te the deep subcutaneous tissue and the skin was left partially open to heal by secondary intention. After that, we moved to the right second toe. Once again, a fishmouth incision was made in that reg ion. The metatarsophalangeal joint was identified, toe amputated, excoriated the metatarsal head and then after that, a chromic was used to approximate the subcutaneous tissue and then a mattress outsi de the skin left partially open to heal by secondary intention. The patient tolerated the procedure well. Sponge count, instrument count was correct. Profuse irrigation was done before this and also local anesthetic and the area was covered with an antibiotic cream and gauze. Patient was sent to Re cover in stable condition. ÓSCAR/KATERYNA Voice ID: [id number] Report ID: [id number]
--- NOTE | 2023-10-16 21:53 | P.PN ---
Date of Service: 10/16/23 Vital Signs Temp Pulse Resp BP Pulse Ox 97.0 F 80 18 140/66 93 10/16/23 16:00 10/16/23 17:10 10/16/23 21:36 10/16/23 17:10 10/16/23 21:36 Medications Acetaminophen (Acetaminophen 500 Mg Tab) 500 mg PO Q4HP PRN PRN Reason: Pain scale 2-4 (Mild) Hydrocodone Bitart/Acetaminophen (Hydrocodone/Apap 7.5/325 Mg Tab) 1 tab PO BIDP PRN PRN Reason: Pain scale 5-7 (Moderate) Last Admin: 10/16/23 21:36 Dose: 1 tab Atorvastatin Calcium (Atorvastatin 80 Mg Tab) 80 mg PO BEDTIME [facility] Last Admin: 10/16/23 21:31 Dose: 80 mg Cilostazol (Cilostazol 100 Mg Tab) 100 mg PO BID [facility] Last Admin: 10/16/23 21:32 Dose: 100 mg Clopidogrel Bisulfate (Clopidogrel 75 Mg Tablet) 75 mg PO BEDTIME [facility] Last Admin: 10/16/23 21:00 Dose: Not Given Gabapentin (Gabapentin 300 Mg Cap) 300 mg PO BID [facility] Last Admin: 10/16/23 21:32 Dose: 300 mg Home Med (Dapagliflozin Propanediol [Farxiga]) 10 mg PO DAILY [facility] Last Admin: 10/16/23 08:17 Dose: Not Given Hydralazine HCl (Hydralazine Hcl 20 Mg/Ml Vial) 10 mg IV Q6HP PRN PRN Reason: FOR SBP>160 OR DBP>100 [facility] Last Admin: 10/14/23 17:09 Dose: 10 mg Cefepime HCl 1 gm/ Sodium (Chloride) 100 mls @ 200 mls/hr IV Q12HR [facility]; Protocol Last Admin: 10/16/23 21:33 Dose: 100 mls Vancomycin HCl 1.5 gm/ Sodium (Chloride) 500 mls @ 333.333 mls/hr IVPB Q24H [facility] Last Admin: 10/16/23 12:47 Dose: 500 mls Sodium Chloride (Ns 1000 Ml Ivbag) 1,000 mls @ 50 mls/hr IV .Q20H [facility] Last Admin: 10/16/23 09:33 Dose: Not Given Insulin Glargine (Insulin Glargine 100 Unit/Ml) 24 unit SQ BID [facility] Last Admin: 10/16/23 21:32 Dose: 24 unit Insulin Human Lispro (Insulin Lispro 100 Unit/Ml) 6 unit SQ AC [facility] Last Admin: 10/16/23 17:09 Dose: 6 unit Insulin Human Regular (Insulin Regular (Human) 100 Unit/Ml) 0 unit SQ ACHS [facility]; Protocol Last Admin: 10/16/23 21:32 Dose: 100 unit Losartan Potassium (Losartan Potassium 50 Mg Tablet) 50 mg PO BID [facility] Last Admin: 10/16/23 21:32 Dose: 50 mg Metoprolol Tartrate (Metoprolol Tar 50 Mg Tab) 50 mg PO BID 6AM 6PM [facility] Last Admin: 10/16/23 17:10 Dose: 50 mg Morphine Sulfate (Morphine 2 Mg/Ml Syr) 2 mg IV Q4H PRN PRN Reason: Pain scale 8-10 (Severe) Last Admin: 10/16/23 18:44 Dose: 2 mg Ondansetron HCl (Ondansetron 4 Mg/2 Ml Vial) 4 mg IV Q6HP PRN PRN Reason: NAUSEA / VOMITING Sterile Water (Water For Inj,Sterile 10 Ml) 20 ml IV UD PRN PRN Reason: DILUTION OF MED Last Admin: 10/09/23 22:59 Dose: 20 ml Microbiology Results 10/06/23 17:53 Blood - Blood Aerobic Blood Culture - Final No growth in 5 days. 10/06/23 17:53 Blood - Blood Anaerobic Blood Culture - Final 10/06/23 17:55 Blood - Blood Aerobic Blood Culture - Final No growth in 5 days. 10/06/23 17:55 Blood - Blood Anaerobic Blood Culture - Final Assessment/ Plan: Nephrology No dyspnea No chest pain No acute events overnight Vitals, medications, blood work and imaging reviewed in the chart NAD. MMM. NCAT. Normal Respiratory Effort. S1S2. ND Abd. No C/C/E. No rash. AAO. Normal speech. RLE Distal gangrene Gunderson Light Stage I ANA following contrast exposure CKD II with Proteinuria -No NSAIDs -Continue Farxiga -Gentle IVF Hyponatremia -Encourage nutrition HTN with CKD -Continue Metoprolol -Continue Losartan DM II with CKD, Polyneuropathy & Peripheral Angiopathy -Continue Farxiga -Continue Gabapentin -RISS PAD Right 1st Toe Gangrene -Follow up with vascular -Continue Lipitor -Surgery today for toe amputation Anemia in chronic illness -Monitor H&H Case reviewed with Dr. Mace
[2023-10-17 07:02] LABS: Hematocrit 24.3 % (39.6-49.0); Hemoglobin 7.8 g/dL (13.6-17.9); MCH 25.8 pg (27.0-35.0); MCHC 32.3 g/dL (32.0-36.0); MCV 79.9 fL (80-100); MPV 7.7 fL (7.6-11.3); Platelets 306 thou/uL (152-406); RBC Red Blood Cell Count 3.04 M/uL (4.33-5.43); Red Cell Distribution Width 20.1 % (12.1-15.2)
[2023-10-17 07:04] LABS: Anion Gap 6.9 mEq/L (5.0-15.0); Potassium 4.9 mEq/L (3.5-5.1)
[2023-10-17] MEDS: MUPIROCIN 2% OINT 22GM TUBE TOP SCH (09:00)
--- NOTE | 2023-10-17 09:49 | P.PN ---
Infectious Disease Progress Note Chief Complaint: Foot ulceration Subjective: s/p amputation of right 1st and 2nd toes 10/[address] Clifton. + leg pain no acute events overnight. Physical Examination Temp Pulse Resp BP Pulse Ox 97.0 F 75 18 175/74 H 95 10/17/23 08:00 10/17/23 08:00 10/17/23 08:00 10/17/23 08:00 10/17/23 08:00 General: In no apparent distress, Oriented x3 HEENT: Atraumatic, Normocephalic Respiratory: Clear to auscultation bilaterally, Normal air movement Cardiovascular: No edema, Regular rate/rhythm Gastrointestinal: Normal bowel sounds, Soft and benign Integumentary: s/p amputation right 1st and 2nd toes, dressing clean dry and intact. Neurological: Normal speech Laboratory Data - Reviewed Microbiology Data - Reviewed Imagings Data: - Reviewed Assessment and Plan Problem List Gangrene of right 1st and 2nd toes Peripheral Arterial Disease Diabetes Mellitus type II Coronary Artery Disease Chronic Kidney Disease II Hypertension Hyperlipidemia Gangrene of right 1st & 2nd toes Peripheral Arterial Disease - CTA lower extremity 10/05: " 1. Right lower extremity: Severe stenosis at the distal right common femoral artery with long segment occlusion of the right SFA stent and artery. Three-vessel runoff . 2. Left lower extremity: Moderate stenosis at the left distal common/proximal external iliac artery as well as distally at the left external iliac artery. A left femoropopliteal bypass graft is present which has a severe stenosis proximally but is otherwise patent. The left SFA is occluded along much of its course. Two of the runoff vessels are patent. 3. Mild bilateral hydronephrosis. Circumferential bladder wall thickening may be secondary to chronic bladder outlet obstruction" - underwent angiogram 10/10 with findings of critical limb ischemia, with complete 100% occlusion of the superficial femoral artery, severe stenosis in the popliteal artery and complete occlusion of the anterior tibial and posterior tibial arteries. Right superficial femoral stent, right popliteal stent. - Has been on Cefepime and Vancomycin (10/05) Recommendations - s/p amputation of right 1st and 2nd toes yesterday. Discontinue IV antibiotics. --> Start on Augmentin PO x 5-7 days. - monitor amputation site for worsening s/s of infection. Wound care per Dr. Clifton - strict blood glucose control - continue supportive care Case discussed with Rafaela Nix
[2023-10-17] MEDS: ACETAMINOPHEN 500 MG TAB PO PRN (13:42)
--- NOTE | 2023-10-17 14:36 | P.PN ---
Subjective Date of Service: 10/17/23 Chief Complaint: Foot ulceration Patient has no new complaint. Status post right first and second toe amputation Patient states his pain is well-controlled. Physical Examination - Vital Signs Temperature: 97.0 F Blood Pressure: 116/51 Pulse: 82 Respirations: 17 Pulse Ox (%): 95 Assessment And Plan - Plan Physical examination General: Alert and oriented x3, NAD, Heart: Heart sounds 1 and 2 normal, regular rhythm, normal rate, no pedal edema Lungs: Clear to auscultation bilaterally, adequate breath sounds bilaterally, no rhonchi or crackles. Abdomen: Soft, rotund, nondistended, nontender, normal bowel sounds. Extremities: Right foot dressed in Nasir wrap. Neuro: No focal motor deficit. Normal speech. Psychiatry: Normal mood, no agitation. 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 Lower extremity u/s (10/05): monophasic waveforms in bilateral lower extremities could reflect mod-severe stenosis such as at the iliac vessels CT pelvis (10/05): RLE: Severe stenosis at distal right common femoral artery with long segment occlusion of the right SFA stent and artery. Three-vessel runoff. LLE: moderate stenosis at the left distal common/proximal external iliac artery as well as distally at the left external iliac artery. Dr. Matos, IR-vascular is following s/p angiogram (10/10) found to have critical limb ischemia, with 100% occlusion of superficial femoral artery, severe popliteal stenosis (~90%), and 100% stenosis of anterior/posterior tibial artery s/p stenting and balloon angioplasty of superficial femoral artery s/p balloon angioplasty of right popliteal artery and right posterior tibial artery Dr. Clifton, General surgery is following discussed at length with patient need to amputate gangrenous right 1st/2nd toe Status post right first and second toe amputation. PRN analgesics / antiemetics Afebrile, +leukocytosis resolved (10/12) Discontinue IV antibiotics, start oral Augmentin coronary artery disease continue home plavix, aspirin 81 mg IDDM2 with polyneuropathy accu-checks, SSI titrate semglee for blood sugar control. ANA on CKD2, resolved CT pelvis (10/06): mild bilateral hydronephrosis. Circumferential bladder wall thickening may be secondary to chronic bladder outlet obstruction renal u/s (10/06): mild bilateral hydronephrosis R > L, benign small left renal cyst continue to monitor renal function Nephrology is following ANA resolved. Hypertension Hyperlipidemia Continue statin, losartan hx CVA with left-sided deficits continue supportive care. Hep-C antibody positive tested positive for hep-c antibody reports hes never been told/diagnosed with hep-c Outpatient follow-up and treatment. Code: Full Dispo: SNF once approved
[2023-10-17] MEDS: HYDROCODONE/APAP 7.5/325 MG TAB PO PRN (17:13)
--- NOTE | 2023-10-17 20:43 | P.PN ---
Date of Service: 10/17/23 Vital Signs Temp Pulse Resp BP Pulse Ox 98.0 F 83 16 139/52 L 95 10/17/23 16:00 10/17/23 18:23 10/17/23 17:13 10/17/23 18:23 10/17/23 17:13 Medications Acetaminophen (Acetaminophen 500 Mg Tab) 500 mg PO Q4HP PRN PRN Reason: Pain scale 2-4 (Mild) Last Admin: 10/17/23 13:42 Dose: 500 mg Hydrocodone Bitart/Acetaminophen (Hydrocodone/Apap 7.5/325 Mg Tab) 1 tab PO Q6H PRN PRN Reason: Pain scale 5-7 (Moderate) Last Admin: 10/17/23 17:13 Dose: 1 tab Amoxicillin/Clavulanate Potassium (Amox/K Clav 875 Mg Tab) 875 mg PO BID [facility]; Protocol Atorvastatin Calcium (Atorvastatin 80 Mg Tab) 80 mg PO BEDTIME [facility] Last Admin: 10/16/23 21:31 Dose: 80 mg Cilostazol (Cilostazol 100 Mg Tab) 100 mg PO BID [facility] Last Admin: 10/17/23 08:11 Dose: 100 mg Clopidogrel Bisulfate (Clopidogrel 75 Mg Tablet) 75 mg PO BEDTIME [facility] Last Admin: 10/16/23 21:00 Dose: Not Given Gabapentin (Gabapentin 300 Mg Cap) 300 mg PO BID [facility] Last Admin: 10/17/23 08:04 Dose: 300 mg Home Med (Dapagliflozin Propanediol [Farxiga]) 10 mg PO DAILY [facility] Last Admin: 10/17/23 08:12 Dose: Not Given Hydralazine HCl (Hydralazine Hcl 20 Mg/Ml Vial) 10 mg IV Q6HP PRN PRN Reason: FOR SBP>160 OR DBP>100 [facility] Last Admin: 10/14/23 17:09 Dose: 10 mg Sodium Chloride (Ns 1000 Ml Ivbag) 1,000 mls @ 50 mls/hr IV .Q20H [facility] Last Admin: 10/17/23 05:33 Dose: Not Given Insulin Glargine (Insulin Glargine 100 Unit/Ml) 24 unit SQ BID [facility] Last Admin: 10/17/23 08:04 Dose: 24 unit Insulin Human Lispro (Insulin Lispro 100 Unit/Ml) 6 unit SQ AC [facility] Last Admin: 10/17/23 17:00 Dose: 6 unit Insulin Human Regular (Insulin Regular (Human) 100 Unit/Ml) 0 unit SQ ACHS [facility]; Protocol Last Admin: 10/17/23 17:00 Dose: 3 unit Losartan Potassium (Losartan Potassium 50 Mg Tablet) 50 mg PO BID [facility] Last Admin: 10/17/23 08:04 Dose: 50 mg Metoprolol Tartrate (Metoprolol Tar 50 Mg Tab) 50 mg PO BID 6AM 6PM [facility] Last Admin: 10/17/23 18:23 Dose: 50 mg Morphine Sulfate (Morphine 2 Mg/Ml Syr) 2 mg IV Q4H PRN PRN Reason: Pain scale 8-10 (Severe) Last Admin: 10/16/23 18:44 Dose: 2 mg Mupirocin (Mupirocin 2% Oint 22gm Tube) 1 appl TOP DAILY [facility] Last Admin: 10/17/23 09:00 Dose: Not Given Ondansetron HCl (Ondansetron 4 Mg/2 Ml Vial) 4 mg IV Q6HP PRN PRN Reason: NAUSEA / VOMITING Sterile Water (Water For Inj,Sterile 10 Ml) 20 ml IV UD PRN PRN Reason: DILUTION OF MED Last Admin: 10/09/23 22:59 Dose: 20 ml Microbiology Results 10/06/23 17:53 Blood - Blood Aerobic Blood Culture - Final No growth in 5 days. 10/06/23 17:53 Blood - Blood Anaerobic Blood Culture - Final 10/06/23 17:55 Blood - Blood Aerobic Blood Culture - Final No growth in 5 days. 10/06/23 17:55 Blood - Blood Anaerobic Blood Culture - Final Assessment/ Plan: Nephrology No dyspnea No chest pain No acute events overnight Vitals, medications, blood work and imaging reviewed in the chart NAD. MMM. NCAT. Normal Respiratory Effort. S1S2. ND Abd. No C/C/E. No rash. AAO. Normal speech. RLE Distal wound Gunderson Light Stage I ANA following contrast exposure CKD II with Proteinuria -No NSAIDs -Continue Farxiga -Gentle IVF Hyponatremia -Encourage nutrition HTN with CKD -Continue Metoprolol -Continue Losartan DM II with CKD, Polyneuropathy & Peripheral Angiopathy -Continue Farxiga -Continue Gabapentin -RISS PAD Right 1st Toe Gangrene -Follow up with vascular -Continue Lipitor -Amputation of toes 10-16-23 Anemia in chronic illness -Monitor H&H
[2023-10-17] MEDS ORDERED: CEFEPIME 2 GM in NA CHLORIDE 0.9% 100 ML IV SCH (21:00)
[2023-10-17] MEDS: AMOX/K CLAV 875 MG TAB PO SCH (21:41)
--- NOTE | 2023-10-18 09:54 | P.PN ---
Infectious Disease Progress Note Chief Complaint: Foot ulceration Subjective: s/p amputation of right 1st and 2nd toes 10/[address] Clifton. In no apparent distress. + right leg/foot pain No acute events overnight. Physical Examination Temp Pulse Resp BP Pulse Ox 98 F 74 19 122/60 95 10/18/23 08:00 10/18/23 08:00 10/18/23 08:00 10/18/23 08:00 10/18/23 08:00 General: In no apparent distress, Oriented x3. HEENT: Atraumatic, Normocephalic Respiratory: Clear to auscultation bilaterally, Normal air movement Cardiovascular: No edema, Regular rate/rhythm Gastrointestinal: Normal bowel sounds, Soft and benign Integumentary: s/p amputation right 1st and 2nd toes, dressing clean dry and intact. Neurological: Normal speech Laboratory Data - Reviewed Microbiology Data - Reviewed Imagings Data: - Reviewed Assessment and Plan Problem List Gangrene of right 1st and 2nd toes Peripheral Arterial Disease Diabetes Mellitus type II Coronary Artery Disease Chronic Kidney Disease II Hypertension Hyperlipidemia Gangrene of right 1st & 2nd toes Peripheral Arterial Disease - CTA lower extremity 10/05: " 1. Right lower extremity: Severe stenosis at the distal right common femoral artery with long segment occlusion of the right SFA stent and artery. Three-vessel runoff . 2. Left lower extremity: Moderate stenosis at the left distal common/proximal external iliac artery as well as distally at the left external iliac artery. A left femoropopliteal bypass graft is present which has a severe stenosis proximally but is otherwise patent. The left SFA is occluded along much of its course. Two of the runoff vessels are patent. 3. Mild bilateral hydronephrosis. Circumferential bladder wall thickening may be secondary to chronic bladder outlet obstruction" - underwent angiogram 10/10 with findings of critical limb ischemia, with complete 100% occlusion of the superficial femoral artery, severe stenosis in the popliteal artery and complete occlusion of the anterior tibial and posterior tibial arteries. Right superficial femoral stent, right popliteal stent. - Previously on Cefepime and Vancomycin (10/05-10/16) Recommendations - s/p amputation of right 1st and 2nd toes 10/15. IV antibiotics discontinued, started on Augmentin PO. Continue x 5-7 days postoperatively. - monitor amputation site for worsening s/s of infection. - Surgical site care per Dr. Clifton - strict blood glucose control Case discussed with Rafaela Nix
[2023-10-18 11:12] VITALS: O2SAT 92
[2023-10-18 13:00] VITALS: BP 163/66; TEMP 97.4
--- NOTE | 2023-10-18 15:21 | P.DS ---
Admission Date: 10/06/23 Discharge Date: 10/18/23 Disposition: TRANSFER TO SNF - REHAB Discharge Condition: FAIR Reason for Admission: Foot ulceration Brief History of Present Illness: 62 yrs old Male with past medical history of diabetes, hypertension, hyperlipidemia, peripheral arterial disease, status post stent, status post left femoropopliteal bypass, history of CVA with left-sided weakness, COPD, history of carotid artery stenosis status post carotid endarterectomy who was brought to ER with complaints of dark discoloration, and erythema on the dorsum of the right foot. He was discharged from the hospital a few days ago and ever since then he noticed increased discoloration of the right foot and right lower extremity. Followed by Dr. Dr Matos for vascular surgery. Patient reported multiple vascular surgeries in the past. 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 Lower extremity u/s (10/05): mod-severe stenosis such as at the iliac vessels CT pelvis (10/05): RLE: Severe stenosis at distal right common femoral artery with long segment occlusion of the right SFA stent and artery. Three-vessel runoff. LLE: moderate stenosis at the left distal common/proximal external iliac artery as well as distally at the left external iliac artery. Dr. Matos, IR-vascular evaluated patient and performed the following: s/p angiogram (10/10) found to have critical limb ischemia, with 100% occlusion of superficial femoral artery, severe popliteal stenosis (~90%), and 100% stenosis of anterior/posterior tibial artery s/p stenting and balloon angioplasty of superficial femoral artery s/p balloon angioplasty of right popliteal artery and right posterior tibial artery Dr. Clifton, General surgery Dr. Clifton evaluated and assisted with management. Right first and second toe amputation done Patient was on IV antibiotics for several days. Patient had leukocytosis which resolved. IV antibiotic discontinued, and then transitioned to oral Augmentin. Coronary artery disease continued home plavix, aspirin 81 mg IDDM2 with polyneuropathy Managed with accu-checks, SSI, Premeal insulin and basal insulin. ANA on CKD2, resolved CT pelvis (10/06): mild bilateral hydronephrosis. Circumferential bladder wall thickening may be secondary to chronic bladder outlet obstruction renal u/s (10/06): mild bilateral hydronephrosis R > L, benign small left renal cyst Nephrology assisted with management. ANA resolved. Hypertension Hyperlipidemia Continued statin, losartan hx CVA with left-sided deficits Patient received PT. Has been participating in physical therapy and has been accepted to skilled rehab. 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 Vital Signs/Physical Exam: Temp Pulse Resp BP Pulse Ox 97.4 F 82 17 163/66 H 92 10/18/23 12:00 10/18/23 12:00 10/18/23 12:00 10/18/23 12:00 10/18/23 12:00 General: Alert, In no apparent distress, Oriented x3 HEENT: Mucous membr. moist/pink Neck: JVD not distended Respiratory: Clear to auscultation bilaterally, Normal air movement Cardiovascular: No edema, Regular rate/rhythm, Normal S1 S2 Gastrointestinal: Normal bowel sounds, Soft and benign, Non-distended, No tenderness Musculoskeletal: No swelling, Other (Right first and second toe amputation.) Integumentary: No cyanosis Laboratory Data at Discharge: WBC 6.50 thou/uL (4.3-10.9) 10/17/23 06:07 Hgb 7.8 g/dL (13.6-17.9) L 10/17/23 06:07 Hct 24.3 % (39.6-49.0) L 10/17/23 06:07 Plt Count 306 thou/uL (152-406) 10/17/23 06:07 PT 13.0 SECONDS (9.5-12.5) H 10/06/23 17:15 INR 1.19 10/06/23 17:15 APTT 32.1 SECONDS (24.3-36.9) 10/06/23 17:15 Sodium 135 mEq/L (136-145) L 10/17/23 06:07 Potassium 4.9 mEq/L (3.5-5.1) D 10/17/23 06:07 BUN 22 mg/dL (7-18) H 10/17/23 06:07 Creatinine 1.11 mg/dL (0.70-1.30) 10/17/23 06:07 Glucose 167 mg/dL (74-106) H 10/17/23 06:07 Phosphorus 3.0 mg/dL (2.5-4.9) 10/15/23 03:05 Magnesium 2.0 mg/dL (1.6-2.4) 10/17/23 06:07 Total Bilirubin 0.3 mg/dL (0.2-1.0) 10/07/23 02:57 AST 31 U/L (15-37) 10/07/23 02:57 ALT 25 U/L (16-61) 10/07/23 02:57 Alkaline Phosphatase 124 U/L (45-117) H 10/07/23 02:57 Home Medications: Clopidogrel Bisulfate [Plavix*] 75 mg PO BEDTIME #30 tab 03/15/22 Insulin Detemir [Levemir] 24 unit SQ BID 04/18/22 Metoprolol Tartrate [Lopressor*] 50 mg PO BID 6AM 6PM #60 tab 04/24/22 Altace 1.25 1.25 mg PO BEDTIME 09/29/23 Atorvastatin Calcium [Lipitor] 80 mg PO BEDTIME 09/29/23 Dapagliflozin Propanediol [Farxiga] 10 mg PO DAILY 09/29/23 Furosemide [Lasix*] 40 mg PO BID 09/29/23 Gabapentin 300 mg PO BID 09/29/23 Hydrocodone/Acetaminophen [Hydrocodone-Acetamin 7.5-325] 1 each PO BIDP PRN 09/29/23 Insulin Aspart [Novolog Flexpen] 6 unit SQ AC 09/29/23 Sitagliptin Phosphate [Januvia] 100 mg PO DAILY 09/29/23 Trazodone [Desyrel*] 50 mg PO BEDTIME 09/29/23 cilostazoL [Cilostazol] 100 mg PO BID 09/29/23 predniSONE [Prednisone*] 5 mg PO SEECOM 09/29/23 Losartan Potassium [Cozaar*] 50 mg PO BID #60 tab 10/03/23 Nifedipine Xl [Procardia XL*] 60 mg PO DAILY #30 tab 10/03/23 Pantoprazole [Protonix Tab*] 40 mg PO BIDAC #60 tab 10/03/23 Hydrocodone 7.5/APAP 325 [[place] 7.5/325 mg*] 1 tab PO BIDP PRN 10/13/23 Amox/Clavulanate [Augmentin 875-125 Tab] 875 mg PO BID 10 Days #20 tab 10/18/23 Mupirocin Oint [Bactroban 2% Ointment*] 1 appl TOP DAILY 30 Days #1 tube 10/18/23 Vitamin D [Drisdol*] 50,000 unit PO Q48H 30 Days #15 cap 10/18/23 New Medications: Amox/Clavulanate [Augmentin 875-125 Tab] 875 mg PO BID 10 Days #20 tab Mupirocin Oint [Bactroban 2% Ointment*] 1 appl TOP DAILY 30 Days #1 tube Vitamin D [Drisdol*] 50,000 unit PO Q48H 30 Days #15 cap Diet: Renal Activity: Fall precautions Followup: Jacques Holcomb DO [Primary Care Provider] - Gonzalez Clifton MD [ACTIVE - CAN ADMIT] - 1-2 Weeks Sony Benjamin MD [ACTIVE - CAN ADMIT] - (Within 2 weeks. For hepatitis C treatment.) Time spent managing pt's care (in minutes): 38
--- NOTE | 2023-10-18 20:35 | P.PN ---
Date of Service: 10/18/23 Vital Signs Temp Pulse Resp BP Pulse Ox 97.4 F 82 17 163/66 H 92 10/18/23 12:00 10/18/23 12:00 10/18/23 12:00 10/18/23 12:00 10/18/23 12:00 Microbiology Results 10/06/23 17:53 Blood - Blood Aerobic Blood Culture - Final No growth in 5 days. 10/06/23 17:53 Blood - Blood Anaerobic Blood Culture - Final 10/06/23 17:55 Blood - Blood Aerobic Blood Culture - Final No growth in 5 days. 10/06/23 17:55 Blood - Blood Anaerobic Blood Culture - Final Assessment/ Plan: Nephrology No dyspnea No chest pain No acute events overnight Vitals, medications, blood work and imaging reviewed in the chart NAD. MMM. NCAT. Normal Respiratory Effort. S1S2. ND Abd. No C/C/E. No rash. AAO. Normal speech. RLE Distal wound [place] Stage I ANA following contrast exposure CKD II with Proteinuria -No NSAIDs -Continue Farxiga -Gentle IVF Hyponatremia -Encourage nutrition HTN with CKD -Continue Metoprolol -Continue Losartan DM II with CKD, Polyneuropathy & Peripheral Angiopathy -Continue Farxiga -Continue Gabapentin -RISS PAD Right 1st Toe Gangrene -Follow up with vascular -Continue Lipitor -Amputation of toes 10-16-23 Anemia in chronic illness -Monitor H&H Case reviewed with the hospitalist team
[2023-10-19] MEDS ORDERED: DRISDOL (VITAMIN D=ERGOCALCIFEROL) 50000 UNIT CAP PO SCH (09:00)
== END 2023-10-18 16:35 | DRG 253 ==
LOC: ER 15:58 → ERHOLD 18:21 → 4TH 19:42
PROVIDERS: ADMIT Family Medicine; ATTEND Internal Medicine
PROC: 0T9B70Z Drainage of Bladder with Drainage Device, Via Natural or Artificial Opening (ICD-10-PCS; 2023-10-07)
PROC: 047K3DZ Dilation of Right Femoral Artery with Intraluminal Device, Percutaneous Approach (ICD-10-PCS; principal; 2023-10-11)
PROC: B41F1ZZ Fluoroscopy of Right Lower Extremity Arteries using Low Osmolar Contrast (ICD-10-PCS; 2023-10-11)
PROC: 0Y6P0Z0 Detachment at Right 1st Toe, Complete, Open Approach (ICD-10-PCS; 2023-10-16)
PROC: 0Y6R0Z0 Detachment at Right 2nd Toe, Complete, Open Approach (ICD-10-PCS; 2023-10-16)
PROC: 047R3ZZ Dilation of Right Posterior Tibial Artery, Percutaneous Approach (ICD-10-PCS; 2023-10-16)
PROC: 047K3ZZ Dilation of Right Femoral Artery, Percutaneous Approach (ICD-10-PCS; 2023-10-16)
DX: E11.52 Type 2 diabetes mellitus with diabetic peripheral angiopathy with gangrene (principal); E87.1 Hypo-osmolality and hyponatremia; I69.954 Hemiplegia and hemiparesis following unspecified cerebrovascular disease affecting left non-dominant side; N17.9 Acute kidney failure, unspecified; N13.30 Unspecified hydronephrosis; I12.9 Hypertensive chronic kidney disease with stage 1 through stage 4 chronic kidney disease, or unspecified chronic kidney disease; N18.30 Chronic kidney disease, stage 3 unspecified; E11.22 Type 2 diabetes mellitus with diabetic chronic kidney disease; D63.1 Anemia in chronic kidney disease; E78.5 Hyperlipidemia, unspecified; N28.1 Cyst of kidney, acquired; J44.9 Chronic obstructive pulmonary disease, unspecified; I25.2 Old myocardial infarction; I25.10 Atherosclerotic heart disease of native coronary artery without angina pectoris; F17.210 Nicotine dependence, cigarettes, uncomplicated; B19.20 Unspecified viral hepatitis C without hepatic coma; Z79.02 Long term (current) use of antithrombotics/antiplatelets; Z79.4 Long term (current) use of insulin; Z79.52 Long term (current) use of systemic steroids; Z79.899 Other long term (current) drug therapy
CPT/HCPCS: 36415; 37224; 72191; 73706; 74175; 76770; 76937; 80048; 80053; 80202; 81001; 82043; 82570; 82947; 83605; 83735; 84100; 85025; 85027; 85610; 85730; 87040; 87086; 87088; 87522; 88305; 88311; 93005; 93925; 94010; 94760; 96374; 97161; 97530; 99152; 99153; 99284; C1725; C1769; J0171; J0360; J0461; J0692; J1100; J1815; J2001; J2250; J2270; J2371; J2405; J2704; J3010; J3475; J7030; J7040; J7050; Q5106; Q9967

== ENCOUNTER 2023-11-13 21:10 | Emergency (ER) | payer MEDICARE, OTHER ==
--- OUTSIDE RECORDS SUMMARY | 2023-11-13 21:16 | XMS REPORT | Continuity of Care Document ---
Author Name Unknown Address [address] [address] [place] [address] [facility] Address [address] [place] [address] Care Team Providers Care Marketing Senior Recruiter Name Role Phone Pcp, Patient Does Not Have A Primary Care Physic thomas Maximilian Sepuvleda Attending Clinician Unavailable Paige Holloway Attending Clinician Unavailable Britni Marvin DO Attending Clinician [phone] Doctor Unassigned, [place] Attending Clinician U jesus Murphy RN, Dora Stover Attending Clinician Unavailab RANDY Vazquez Attending Clinician Unavailmilton Knight MD, Randy Fisher Attending Clinician [phone] Joey Baker DO Attending Clinician [phone] Rick GARCIA, Gregoria Attending Clinician [phone] Jorge L GARCIA, Fritz Attending Clinician [phone] Vannessa GARCIA, Chava Attending Clinician [phone] Artie Carrasco MD, Ayo Alvarado Attending Clinician + FRITZ DALEY Attending Clinician Unavailable Dm Deng MD Attending Clinician [phone] Maximilian Sepulveda Admitting Clinician Unavailable Paige Holloway Admitting Clinician Unavailable RANDY KNIGHT Admitting Clinician Unavailmilton Knight MD, Randy Fisher Admitting Clinician [phone] Artie Carrasco MD, Ayo Alvarado Admitting Clinician + FRITZ DALEY Admitting Clinician Unavailable Payers Payer Name Policy Type Policy Number Effective Date Expirati on Date Source [employer] (MEDICARE REPLACEMENT HMO) [id number] 2022 00:00:00 Problems Condition Name Condition Details Condition Category Status Onset Date Resolution Date Last Treatment Date Treating Clinician Comments Source GIB (gastroint estinal bleeding) GIB (gastroint estinal bleeding) Disease Active 2021-07 00:00: 00 [facility] Lung mass Lung mass Disease Active 2021-07 00:00: 00 [facility] S/P primary angioplast y with coronary stent S/P primary angioplast y with coronary stent Disease [facility] 2021-07 00:00: 00 Overview: Formattin g of this note might be different from the original. CAD w/p PCI of RCA and ?LAD 03/2022, with bare metal stent [facility] terminal gauger (current) use of antithromb otics/anti platelets custodial (current) use of antithromb otics/anti platelets Disease [facility] 2021-07 00:00: 00 [facility] History of upper gastrointe stinal bleeding History of upper gastrointe stinal bleeding Disease [facility] 2021-07 00:00: 00 Overview: Formattin g of this note might be different from the original. Hx of PUD w/ ulceratio n s/p cauteriza tion and 7U of blood (03/2022) [facility] Type 2 diabetes mellitus with hyperglyce vidya, with long-term current use of insulin Type 2 diabetes mellitus with hyperglyce vidya, with long-term current use of insulin Disease Active 2021-07 00:00: 00 Overview: Formattin g of this note is different from the original. 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 and stage 1 through stage 4 chronic kidney disease, or unspecifie d chronic kidney disease Hypertensi ve heart and chronic kidney disease with heart failure and stage 1 through stage 4 chronic kidney disease, or unspecifie d chronic kidney disease Disease Active 2021-07 00:00: 00 [facility] 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 See Text. DA Active U UNKNOWN 02-03 00:00: 00 [facility] No Known Drug Intolera nces DA Active U 12-30 00:00: 00 [facility] Not Converte d 80. See Text. DA Active U 12-30 00:00: 00 [facility] NO KNOWN ALLERGIE S Drug Class Active [facility] Social History Social Habit Start Date Stop Date Quantity Comments Source History of tobacco use Passive smoker [facility] History SDOH Social Connections Get Together [facility] History SDOH Social Connections Muslim [facility] History SDOH Social Connections Membership [facility] History SDOH Social Connections Meetings [facility] History SDOH Social Connections Living [facility] Exposure to SARS-CoV-2 (event) 2022-06-18 00:00:00 2022-06-28 03:00:[address] [facility] History SDOH Food Worry 2022-06-28 00:00:00 2022-06-28 00:00:[address] [facility] History SDOH Food Scarcity 2022-06-28 00:00:00 2022-06-28 00:00:[address] [facility] History SDOH Transport Med 2022-06-28 00:00:00 2022-06-28 00:00:[address] [facility] History SDOH Transport Non-Med 2022-06-28 00:00:00 2022-06-28 00:00:[address] [facility] Tobacco use and exposure 2022-06-28 00:00:00 2022-06-28 00:00:[address] [facility] History SDOH Alcohol Frequency 2022-06-28 00:00:00 2022-06-28 00:00:[address] [facility] History SDOH Alcohol Std Drinks 2022-06-28 00:00:00 2022-06-28 00:00:[address] [facility] History SDOH Alcohol Binge 2022-06-28 00:00:00 2022-06-28 00:00:[address] [facility] History SDOH Social Connections Phone 2022-06-28 00:00:00 2022-06-28 00:00:[address] [facility] History SDOH Physical Activity DPW 2022-06-28 00:00:00 2022-06-28 00:00:[address] [facility] History SDOH Physical Activity MPS 2022-06-28 00:00:00 2022-06-28 00:00:[address] [facility] History SDOH Financial 2022-06-28 00:00:00 2022-06-28 00:00:[address] [facility] Alcohol intake 2022-06-28 00:00:00 2022-06-28 00:00:00 Ex-drinker (finding) [facility] Alcohol Comment 2022-05-14 00:00:00 2022-05-14 00:00:[address] [facility] Sex Assigned At 1960 00:00:00 1960 00:00:00 [facility] Smoking Status Start Date Stop Date Source Tobacco smoking consumption unknown [facility] Smokes tobacco daily 2022-06-28 00:00:00 [facility] Medications Ordered Medication Name Filled Medication Name Start Date Stop Date Current Medication? Ordering Clinician Indication Dosage Frequency Signature (SIG) Comments Components Source furosemide 40 mg tablet 07-26 00:00: 00 Yes [id number] 40mg Take 1 tablet by mouth in the morning. [facility] metoprolol tartrate 50 mg tablet 2021-07 15:49: 30 Yes 50mg Take 50 mg by mouth in the morning and 50 mg in the evening. [facility] traZODone 50 mg tablet 2021-07 15:49: 30 Yes 50mg Take 50 mg by mouth at bedtime. [facility] traZODone (DESYREL) tablet 50 mg 2021-07 03:00: 00 Yes 50mg 50 mg, Oral, QHS, First dose on Mon06/28/22 at 2100, Until Discontinu ed, Routine [facility] atorvastati n (LIPITOR) tablet 40 mg 2021-07 03:00: 00 Yes 40mg 40 mg, Oral, QHS, First dose on Mon06/28/22 at 2100, Until Discontinu ed, Routine [facility] insulin glargine (LANTUS U-100) injection 15 Units 2021-07 02:00: 00 Yes 15U 15 Units, Subcutaneo us, BID, First dose on Mon06/28/22 at 2000, Until Discontinu ed, Routine [facility] losartan (COZAAR) tablet 50 mg 2021-07 22:00: 00 Yes 50mg 50 mg, Oral, DAILY, First dose on Mon06/28/22 at 1600, Until Discontinu ed, Routine [facility] Sliding Scale Insulin - Lispro (HumaLOG) + Fsbg Testing 2021-07 18:00: 00 Yes Subcutaneo us, TID MEALS+HS, First dose on Mon06/28/22 at 1200, Until Discontinu ed, Routine [facility] dextrose 10% (D10W) bolus infusion 250 mL [...] blood glucose is < 80 mg/dL, repeat.
[facility] glucagon (GLUCAGEN DIAGNOSTIC KIT) injection 1 mg 2021-07 15:07: 18 Yes 1mg 1 mg, Intramuscu lar, PRN, Starting on Mon06/28/22 at 0907, Until Discontinu ed, GUSTAVO, Blood Glucose < or = 70 mg/dL and patient is unable to swallow or has mental changes. [facility] clopidogreL (PLAVIX) 75 mg tablet 75 mg 2021-07 15:00: 00 Yes 75mg 75 mg, Oral, DAILY, First dose on Mon06/28/22 at 0900, Until Discontinu ed, Routine [facility] aspirin EC tablet 81 mg 2021-07 15:00: 00 06-28 20:43 :30 No 81mg 81 mg, Oral, DAILY, First dose on Mon06/28/22 at 0900, Until Discontinu ed [facility] pantoprazol e (PROTONIX) injection 40 mg 2021-07 14:00: 00 Yes 40mg 40 mg, Slow IV Push, Q12H, First dose on Mon06/28/22 at 0800, Until Discontinu ed [facility] gabapentin (NEURONTIN) capsule 200 mg 2021-07 14:00: 00 Yes 200mg 200 mg, Oral, TID, First dose on Mon06/28/22 at 0800, Until Discontinu ed, Routine [facility] acetaminoph en (TYLENOL) tablet 650 mg 2021-07 10:01: 56 Yes 650mg 650 mg, Oral, Q6HPRN, Starting on Mon06/28/22 at 0401, Until Discontinu ed, Routine, Pain (scale 1-3) [facility] insulin glargine (LANTUS U-100) injection 17 Units 2021-07 03:00: 00 Yes 17U 17 Units, Subcutaneo us, QHS, First dose on Mon05/17/22 at 2100, Until Discontinu ed, Routine [facility] insulin aspart U-100 (NOVOLOG FLEXPEN U-100 INSULIN) 100 unit/mL (3 mL) injection 2021-07 00:00: 00 Yes [id number] 5U inject 5 Units under the skin in the morning and 5 Units at noon and 5 Units in the evening. [facility] Insulin Detemir 100 unit/mL (3 mL) injection 2021-07 00:00: 00 Yes [id number] 17U inject 17 Units under the skin in the morning and 17 Units in the evening. [facility] metoprolol tartrate 50 mg tablet 2021-07 18:59: 23 Yes 50mg Take 50 mg by mouth in the morning and 50 mg in the evening. [facility] traZODone 50 mg tablet 2021-07 18:59: 23 Yes 50mg Take 50 mg by mouth at bedtime. [facility] clopidogreL (PLAVIX) 75 mg tablet 75 mg 2021-07 18:00: 00 Yes 75mg 75 mg, Oral, DAILY, First dose on Mon05/17/22 at 1200, Until Discontinu ed, Routine [facility] aspirin chewable tablet 81 mg 2021-07 18:00: 00 Yes 81mg 81 mg, Oral, DAILY, First dose on Mon05/17/22 at 1200, Until Discontinu ed, Routine [facility] furosemide (LASIX) tablet 40 mg 2021-07 17:30: 00 Yes 40mg 40 mg, Oral, DAILY, First dose on Mon05/17/22 at 1130, Until Discontinu ed, Routine [facility] amLODIPine (NORVASC) tablet 5 mg 2021-07 15:00: 00 Yes 5mg 5 mg, Oral, DAILY, First dose on Mon05/17/22 at 0900, Until Discontinu ed, Routine [facility] pantoprazol e (PROTONIX) EC tablet 40 mg 2021-07 15:00: 00 Yes 40mg 40 mg, Oral, DAILY, First dose on Mon05/17/22 at 0900, Until Discontinu ed, Routine [facility] potassium chloride in water 10 mEq/100 mL RTU 10 mEq 2021-07 14:00: 00 05-17 22:30 :00 No 10meq 10 mEq, IV Piggyback, Q2H, 4 doses, First dose on Mon05/17/22 at 0800, Last dose on Mon05/17/22 at 1400, Administer over 60 Minutes, 100 mL [facility] KCL (KLOR-CON M20) tablet 40 mEq 2021-07 13:45: 00 05-17 14:58 :00 No 40meq 40 mEq, Oral, ONCE, 1 dose, On Mon05/17/22 at 0745, Routine [facility] furosemide 40 mg tablet 2021-07 11:19: 35 05-17 00:00 :00 No 40mg Take 40 mg by mouth every morning and evening. [facility] furosemide 40 mg tablet 2021-07 00:00: 00 07-26 00:00 :00 No [id number] 40mg Take 1 tablet by mouth in the morning. [facility] Insulin Detemir 100 unit/mL (3 mL) injection 2021-07 00:00: 00 06-17 05:59 :00 No [id number] 17U inject 17 Units under the skin in the morning and 17 Units in the evening. Do all this for 30 days. [facility] pantoprazol e 40 mg EC tablet 2021-07 00:00: 00 06-17 05:59 :00 No [id number] 40mg Take 1 tablet by mouth in the morning and 1 tablet in the evening. Do all this for 30 days. [facility] metoprolol tartrate 50 mg tablet 2021-07 21:59: 40 Yes 50mg Take 50 mg by mouth in the morning and 50 mg in the evening. [facility] traZODone 50 mg tablet 2021-07 21:59: 40 Yes 50mg Take 50 mg by mouth at bedtime. [facility] furosemide 40 mg tablet 2021-07 21:59: 40 Yes 40mg Take 40 mg by mouth every morning and evening. [facility] levothyroxi ne 50 mcg tablet 2021-07 21:59: 40 05-14 00:00 :00 No 50ug Take 50 mcg by mouth. [facility] magnesium oxide (MAG-OX 400) tablet 400 mg 2021-07 14:00: 00 05-16 14:15 :00 No 400mg 400 mg, Oral, ONCE, 1 dose, On Mon05/16/22 at 0800, Routine [facility] HYDROcodone -acetaminop hen (NORCO 5) 5-325 mg tablet 1 tablet 2021-07 09:13: 03 Yes 1{tbl} 1 tablet, Oral, Q6HPRN, Starting on Mon05/16/22 at 0313, Until Discontinu ed, Routine, Pain (scale 7-10) [facility] traZODone (DESYREL) tablet 50 mg 2021-07 03:00: 00 Yes 50mg 50 mg, Oral, QHS, First dose on Mon05/15/22 at 2100, Until Discontinu ed, Routine [facility] bisacodyL (DULCOLAX) tablet 10 mg 2021-07 22:30: 00 05-15 23:04 :00 No 10mg 10 mg, Oral, PRE-PROCED URE ONCE, 1 dose, Starting on Mon05/15/22 at 1630, Until Discontinu ed, Routine, Bowel Prep, Colonoscop y [facility] bisacodyL (DULCOLAX) tablet 10 mg 2021-07 19:00: 00 05-15 21:39 :00 No 10mg 10 mg, Oral, PRE-PROCED URE ONCE, 1 dose, Starting on Mon05/15/22 at 1300, Until Discontinu ed, Routine, Bowel Prep, Colonoscop y [facility] ondansetron (ZOFRAN (PF)) injection 4 mg 2021-07 18:37: 44 Yes 4mg 4 mg, Slow IV Push, Q6HPRN, Starting on 05/15/22 at 1237, Until Discontinu ed, Routine, Nausea and Vomiting (N/V) [facility] peg-electro lyte soln (GOLYTELY) 236-22.74-6 .74 -5.86 gram solution 4,000 mL 2021-07 18:37: 44 05-17 04:11 :51 No 4000mL 4,000 mL, Oral, PRN - SEE INSTRUCTIO NS, Starting on Mon05/15/22 at 1237, Until Mon05/16/22 at 2211, Routine, Bowel Prep, colonoscop y [facility] sulfur hexafluorid e microsphr (LUMASON) injection 5 mL 2021-07 18:15: 00 05-15 16:16 :00 No [id number] 5mL 5 mL, Intravenou s, ONCE, 1 dose, On 05/15/22 at 1215, Routine
wireless team member approving Restricted medication : TRAE JORDAN [facility] metoprolol tartrate (LOPRESSOR) tablet 25 mg 2021-07 14:00: 00 Yes 25mg 25 mg, Oral, BID, First dose (after last modificati on) on 05/15/22 at 0800, Until Discontinu ed, Routine [facility] atorvastati n (LIPITOR) tablet 40 mg 2021-07 03:00: 00 Yes 40mg 40 mg, Oral, QHS, First dose on 05/14/22 at 2100, Until Discontinu ed, Routine [facility] clopidogreL (PLAVIX) 75 mg tablet 75 mg 2021-07 22:45: 00 05-16 00:36 :44 No 75mg 75 mg, Oral, DAILY, First dose on 05/14/22 at 1645, Until Discontinu ed, Routine [facility] acetaminoph en (TYLENOL) tablet 650 mg 2021-07 21:30: 00 05-15 00:16 :00 No 650mg 650 mg, Oral, ONCE, 1 dose, On 05/14/22 at 1530, Routine [facility] lactated ringers IV infusion 1,000 mL 2021-07 19:00: 00 05-14 21:17 :15 No 1000mL at 999 mL/hr, 1,000 mL, Intravenou s, ONCE, 1 dose, On 05/14/22 at 1300, STAT [facility] furosemide (LASIX) tablet 40 mg 2021-07 15:00: 00 05-14 18:15 :34 No 40mg 40 mg, Oral, QAM+PM, First dose on 05/14/22 at 0900, Until Discontinu ed, Routine [facility] Sliding Scale Insulin - Lispro (HumaLOG) + Fsbg Testing 2021-07 14:00: 00 Yes Subcutaneo us, TID MEALS+HS, First dose on 05/14/22 at 0800, Until Discontinu ed, Routine [facility] metoprolol tartrate (LOPRESSOR) tablet 50 mg 2021-07 14:00: 00 05-15 07:38 :55 No 50mg 50 mg, Oral, BID, First dose on [facility] 05/14/22 at 0800, Until Discontinu ed, Routine [facility] pantoprazol e (PROTONIX) injection 40 mg 2021-07 14:00: 00 05-14 18:09 :31 No 40mg 40 mg, Slow IV Push, Q12H, First dose on [facility] 05/14/22 at 0800, Until Discontinu ed [facility] acetaminoph en (TYLENOL) tablet 650 mg 2021-07 11:42: 27 Yes 650mg 650 mg, Oral, Q6HPRN, Starting on [facility] 05/14/22 at 0542, Until Discontinu ed, Routine, Pain (scale 1-3) [facility] Insulin Detemir 100 unit/mL (3 mL) injection 2021-07 00:00: 00 05-17 00:00 :00 No 24U inject 24 Units under the skin in the morning and 24 Units in the evening. [facility] insulin aspart U-100 (NOVOLOG FLEXPEN U-100 INSULIN) 100 unit/mL (3 mL) injection 2021-07 00:00: 00 04-14 04:59 :00 No 5U inject 5 Units under the skin in the morning and 5 Units at noon and 5 Units in the evening. [facility] clopidogreL 75 mg tablet 03-15 00:00: 00 Yes 75mg Take 75 mg by mouth. [facility] pantoprazol e 40 mg EC tablet 03-15 00:00: 00 05-17 00:00 :00 No 40mg 40 mg. [facility] aspirin 81 mg Cap 03-09 00:00: 00 06-29 00:00 :00 No 81mg 81 mg. [facility] gabapentin 100 mg capsule 01-22 00:00: 00 Yes 200mg Take 200 mg by mouth. [facility] atorvastati n 40 mg tablet 01-22 00:00: 00 05-05 04:59 :00 No 40mg Take 40 mg by mouth. [facility] losartan 50 mg tablet 01-22 00:00: 00 04-14 04:59 :00 No 50mg Take 50 mg by mouth. [facility] amLODIPine 5 mg tablet 01-22 00:00: 00 05-14 00:00 :00 No 5mg 5 mg. [facility] cilostazoL 100 mg tablet 01-22 00:00: 00 05-14 00:00 :00 No 1{tbl} Take 1 tablet by mouth every morning and evening. [facility] dapaglifloz in-metformi n 10-1,000 mg TBph 01-22 00:00: 00 05-14 00:00 :00 No Take by mouth. [facility] Vital Signs Vital Name Observation Time Observation Value Comments S steven Systolic blood pressure 2022-06-29 18:12:00 122 mm[Hg] [facility] Diastolic blood pressure 2022-06-29 18:12:00 58 mm[Hg] [facility] Heart rate 2022-06-29 18:12:00 82 /min [facility] Body temperature 2022-06-29 18:12:[address] [facility] Respiratory rate 2022-06-29 18:12:00 16 /min [facility] Oxygen saturation in Arterial blood by Pulse oximetry 2022-06-29 18:12:00 96 /min [facility] Body height 2022-06-28 09:01:00 182.9 cm [facility] Body weight 2022-06-28 09:01:00 84.324 kg [facility] BMI 2022-06-28 09:01:00 25.21 kg/m2 [facility] Systolic blood pressure 2022-05-17 21:59:00 162 mm[Hg] [facility] Diastolic blood pressure 2022-05-17 21:59:00 76 mm[Hg] [facility] Heart rate 2022-05-17 21:59:00 86 /min [facility] Body temperature 2022-05-17 21:59:[address] [facility] Respiratory rate 2022-05-17 21:59:00 18 /min [facility] Oxygen saturation in Arterial blood by Pulse oximetry 2022-05-17 21:59:00 95 /min [facility] Body weight 2022-05-14 11:02:00 86.18 kg [facility] Systolic blood pressure 2022-05-16 22:02:00 134 mm[Hg] [facility] Diastolic blood pressure 2022-05-16 22:02:00 83 mm[Hg] [facility] Respiratory rate 2022-05-16 22:02:00 19 /min [facility] Oxygen saturation in Arterial blood by Pulse oximetry 2022-05-16 22:02:00 98 /min [facility] Heart rate 2022-05-16 22:00:00 78 /min [facility] Body temperature 2022-05-16 14:00:[address] [facility] Body weight 2022-05-14 11:02:00 86.18 kg [facility] Procedures Procedure Date / Time Performed Performing Clinician Source EXTERNAL PROVIDER RECORDS 2022-07-08 06:01:00 Doctor Unassigned, [place] [facility] POCT GLUCOSE (AUTOMATED) 2022-06-29 18:21:[address] [facility] POCT GLUCOSE (AUTOMATED) 2022-06-29 15:34:[address] [facility] CBC WITH DIFF 2022-06-29 11:58:[address] [facility] POCT GLUCOSE (AUTOMATED) 2022-06-29 02:39:[address] [facility] POCT GLUCOSE (AUTOMATED) 2022-06-28 23:11:[address] [facility] CBC WITH DIFF 2022-06-28 20:43:[address] [facility] POCT GLUCOSE (AUTOMATED) 2022-06-28 17:59:[address] [facility] POCT GLUCOSE (AUTOMATED) 2022-06-28 15:05:[address] [facility] HEPATIC FUNCTION PANEL (8007 [id number]) (ALB,T.PRO,BILI T,BU/BC,ALT,AST,ALK PHOS) 2022-06-28 11:52:00 [facility] BASIC METABOLIC PANEL (NA, K , CL, CO2, GLUCOSE, BUN, CREATININE, CA) 2022-06-28 11:52:00 [facility] CBC WITH DIFF 2022-06-28 11:52:00 [facility] PROTHROMBIN TIME / INR 2022-06-28 11:52:00 [facility] ACTIVATED PARTIAL THRMPLAS JAMESON 2022-06-03 7 11:52:00 [facility] HB ABO GROUPING 2022-06-28 11:50:00 [facility] POCT GLUCOSE (AUTOMATED) 2022-05-17 23:13:[address] [facility] POCT GLUCOSE (AUTOMATED) 2022-05-17 22:00:[address] [facility] POCT GLUCOSE (AUTOMATED) 2022-05-17 17:38:[address] [facility] POCT GLUCOSE (AUTOMATED) 2022-05-17 13:57:[address] [facility] BASIC METABOLIC PANEL (NA, K , CL, CO2, GLUCOSE, BUN, CREATININE, CA) 2022-05-17 07:42:00 [facility] CBC WITHOUT DIFF 2022-05-17 07:42:00 [facility] BASIC METABOLIC PANEL (NA, K , CL, CO2, GLUCOSE, BUN, CREATININE, CA) 2022-05-17 07:42:00 [facility] CBC WITHOUT DIFF 2022-05-17 07:42:00 [facility] POCT GLUCOSE (AUTOMATED) 2022-05-17 01:40:[address] [facility] POCT GLUCOSE (AUTOMATED) 2022-05-17 01:40:[address] [facility] POCT GLUCOSE (AUTOMATED) 2022-05-16 22:12:[address] [facility] POCT GLUCOSE (AUTOMATED) 2022-05-16 22:12:[address] [facility] COLONOSCOPY (ENDO) 2022-05-16 20:04:[address] [facility] COLONOSCOPY (ENDO) 2022-05-16 20:04:[address] [facility] EGD (ENDO) 2022-05-16 19:53:16 [facility] EGD (ENDO) 2022-05-16 19:53:16 [facility] COLONOSCOPY 2022-05-16 19:41:00 Ish [facility] ESOPHAGOGASTRODUODENOSCOPY 2022-05-16 19:41:00 Ish [facility] COLONOSCOPY 2022-05-16 19:41:00 Ish [facility] ESOPHAGOGASTRODUODENOSCOPY 2022-05-16 19:41:00 Ish [facility] POCT GLUCOSE (AUTOMATED) 2022-05-16 17:29:[address] [facility] POCT GLUCOSE (AUTOMATED) 2022-05-16 17:29:[address] [facility] CT ABDOMEN WO CONTRAST 2022-05-16 15:37:[address] [facility] CT ABDOMEN WO CONTRAST 2022-05-16 15:37:[address] [facility] CBC WITHOUT DIFF 2022-05-16 15:29:00 [facility]raine [facility] CBC WITHOUT DIFF 2022-05-16 15:29:00 [facility] POCT GLUCOSE (AUTOMATED) 2022-05-16 14:07:[address] [facility] POCT GLUCOSE (AUTOMATED) 2022-05-16 14:07:[address] [facility] MAGNESIUM 2022-05-16 11:26:[address] [facility] BASIC METABOLIC PANEL (NA, K , CL, CO2, GLUCOSE, BUN, CREATININE, CA) 2022-05-16 11:26:[address] [facility] CBC WITHOUT DIFF 2022-05-16 11:26:[facility] 11:26:[address] [facility] BASIC METABOLIC PANEL (NA, K , CL, CO2, GLUCOSE, BUN, CREATININE, CA) 2022-05-16 11:26:[address] [facility] CBC WITHOUT DIFF 2022-05-16 11:26:00 [facility] POCT GLUCOSE (AUTOMATED) 2022-05-15 22:07:00 Vannessa [facility] POCT GLUCOSE (AUTOMATED) 2022-05-15 22:07:00 Vannessa [facility] CBC WITHOUT DIFF 2022-05-15 22:00:00 [facility] CBC WITHOUT DIFF 2022-05-15 22:00:00 [facility] POCT GLUCOSE (AUTOMATED) 2022-05-15 17:49:00 Vannessa [facility] POCT GLUCOSE (AUTOMATED) 2022-05-15 17:49:00 [facility] (TTE) COM PLETE W/ CONTRAST 2022-05-15 16:21:00 [facility] TRANSTHORACIC ECHO (TTE) COM PLETE W/ CONTRAST 2022-05-15 16:21:00 [facility] TRANSFUSE PACKED RBC 2022-05-15 14:45:00 [facility] TRANSFUSE PACKED RBC 2022-05-15 14:45:00 [facility] PREPARE PACKED RBC 2022-05-15 14:38:44 [facility] PREPARE PACKED RBC 2022-05-15 14:38:[address] [facility] XR SHOULDER 2+ VW LEFT 2022-05-15 14:34:00 Savannah [facility] XR SHOULDER 2+ VW LEFT 2022-05-15 14:34:00 Savannah [facility] CBC WITHOUT DIFF 2022-05-15 13:47:00 Savannah [facility] CBC WITHOUT DIFF 2022-05-15 13:47:00 Savannah [facility] POCT GLUCOSE (AUTOMATED) 2022-05-15 13:45:00 Vannessa [facility] POCT GLUCOSE (AUTOMATED) 2022-05-15 13:45:[address] [facility] MAGNESIUM 2022-05-15 10:42:00 [facility] (NA, K , CL, CO2, GLUCOSE, BUN, CREATININE, CA) 2022-05-15 10:42:[address] [facility] CBC WITHOUT DIFF 2022-05-15 10:42:00 Savannah [facility] MAGNESIUM 2022-05-15 10:42:[address] [facility] BASIC METABOLIC PANEL (NA, K , CL, CO2, GLUCOSE, BUN, CREATININE, CA) 2022-05-15 10:42:[address] [facility] CBC WITHOUT DIFF 2022-05-15 10:42:00 [facility] LIPID PANEL (70944)(TOTAL CHOLESTEROL, TRIGLYCERIDES, HDL) 2022-05-15 04:26:00 [facility] CBC WITHOUT DIFF 2022-05-15 04:26:00 [facility] LIPID PANEL (15134)(TOTAL CHOLESTEROL, TRIGLYCERIDES, HDL) 2022-05-15 04:26:[facility]-15 04:26:00 [facility] CBC WITHOUT DIFF 2022-05-14 21:37:00 [facility] CBC WITHOUT DIFF 2022-05-14 21:37:[address] [facility] ABORH CONFIRMATION (LAB ONLY) 2022-05-14 19:21:00 [facility] ONLY) 2022-05-14 19:21:00 [facility] (AUTOMATED) 2022-05-14 18:51:00 Samuel [facility] POCT GLUCOSE (AUTOMATED) 2022-05-14 18:51:00 Samuel [facility] HB ABO GROUPING 2022-05-14 18:46:00 [facility] CBC WITHOUT DIFF 2022-05-14 18:46:00 [facility] HB ABO GROUPING 2022-05-14 18:46:00 [facility] CBC WITHOUT DIFF 2022-05-14 18:46:00 [facility]on [facility] POCT GLUCOSE (AUTOMATED) 2022-05-14 15:46:00 Samuel [facility] POCT GLUCOSE (AUTOMATED) 2022-05-14 15:46:00 Samuel [facility] N-TERMINAL PRO-BNP 2022-05-14 12:50:00 [facility] MAGNESIUM 2022-05-14 12:50:00 [facility] HEPATIC FUNCTION PANEL (8007 6) (ALB,T.PRO,BILI T,BU/BC,ALT,AST,ALK PHOS) 2022-05-14 12:50:00 [facility] BASIC METABOLIC PANEL (NA, K , CL, CO2, GLUCOSE, BUN, CREATININE, CA) 2022-05-14 12:50:00 [facility] CBC WITH DIFF 2022-05-14 12:50:00 [facility] GLYCOSYLATED HEMOGLOBIN (A1C) 2022-05-14 12:50:00 [facility] PROTHROMBIN TIME / INR 2022-05-14 12:50:[address] [facility] N-TERMINAL PRO-BNP 2022-05-14 12:50:[address] [facility] MAGNESIUM 2022-05-14 12:50:[address] [facility] HEPATIC FUNCTION PANEL (8007 6) (ALB,T.PRO,BILI T,BU/BC,ALT,AST,ALK PHOS) 2022-05-14 12:50:00 [facility] BASIC METABOLIC PANEL (NA, K , CL, CO2, GLUCOSE, BUN, CREATININE, CA) 2022-05-14 12:50:00 [facility] CBC WITH DIFF 2022-05-14 12:50:00 [facility] GLYCOSYLATED HEMOGLOBIN (A1C) 2022-05-14 12:50:00 [facility] PROTHROMBIN TIME / INR 2022-05-14 12:50:[address] [facility] HOSPITAL ADMISSION 2022-05-14 06:01:00 Doctor Unassigned, [place] [facility] [id number] 2022-02-11 00:00:00 [facility] [id number] 2022-02-11 00:00:00 [facility] [id number] 2022-02-11 00:00:00 [facility] [id number] 2022-02-11 00:00:00 [facility] [id number] 2022-02-11 00:00[facility]00 [facility] [id number] 2022-02-11 00:00:00 [facility] [id number] 2022-02-11 00:00:00 [facility] [id number] 2022-02-10 00:00:00 [facility] Encounters Start Date/Time End Date/Time Encounter Type Admission Type Attending Clinicians Care Facility Care Department Encounter ID Source 2022-02-03 08:18:00 Inpatient Maximilian Sanches [facility] [id number] [facility] 2023-11-06 05:55:00 2023-11-10 16:59:00 Inpatient Paige Lawson [facility] IN[facility].02 [id number] 46 [facility] 2022-07-21 00:00:00 2022-07-21 00:00:00 Jacquesill Britni Marvin [facility] [id number] [id number] [id number] [id number] [facility] 2022-07-08 00:00:00 2022-07-08 00:00:00 Orders Only Doctor Unassigned, [place] [facility] [id number] 350.1.13.10 4.2.7.2.686 [id number] [facility] 2022-06-30 00:00:00 2022-06-30 00:00:00 Transition of Care Dora Murphy [id number] 350.1.13.10 4.2.7.2.686 [id number] [facility] 2022-06-28 02:44:00 2022-06-29 15:49:00 Outpatient RANDY GARCIA [facility] [id number] [facility] 2022-06-28 02:44:00 2022-06-29 15:49:00 Hospital Randy Arredondo [facility] [id number] 350.1.13.10 4.2.7.2.686 [id number] [facility] 2022-05-18 00:00:00 2022-05-18 00:00:00 Transition of [facility] Dora Murphy [id number] 350.1.13.10 4.2.7.2.686 [id number] [facility] 2022-05-14 04:59:00 2022-05-17 18:59:00 Hospital Encounter Joey Baker, Gregoria Daley, Chava Bullard, Ayo Alvarado [facility] [id number] 350.1.13.10 4.2.7.2.686 [id number] [facility] 2022-05-14 04:59:00 2022-05-17 18:59:00 Inpatient Cj DALEY FRITZ [facility] [id number] [facility] 2022-05-16 15:07:00 2022-05-16 16:02:00 Surgery DengDm [facility] 1.2.840.114 350.1.13.10 4.2.7.2.686 [id number] [facility] 2022-04-27 00:00:00 2022-04-27 00:00:00 Outpatient DMG DMG [id number] [facility] 2022-04-27 00:00:00 2022-04-27 00:00:00 Outpatient DMG DMG [id number] [facility] 2022-04-27 00:00:00 2022-04-27 00:00:00 Outpatient DMG DMG [id number] [facility] 2022-04-27 00:00:00 2022-04-27 00:00:00 Outpatient DMG DMG [id number] [facility] 2022-04-27 00:00:00 2022-04-27 00:00:00 Outpatient DMG DMG [id number] [facility] 2022-04-27 00:00:00 2022-04-27 00:00:00 Outpatient DMG DMG [id number] [facility] 2022-04-27 00:00:00 2022-04-27 00:00:00 Outpatient DMG DMG [id number] [facility] 2022-04-27 00:00:00 2022-04-27 00:00:00 Outpatient DMG DMG [id number] [facility] 2022-02-24 00:00:00 2022-02-24 00:00:00 Outpatient [facility] [id number] [facility] Results Test Description Test Time Test Comments Results Result Co mments Source CBC W/AUTO [id number] 06:15:00* Test Item Value Reference Range Interpretation Comme nts WHITE BLOOD CELL (test code = WBC) 7.6 x10 3/uL 4.5-11.0 N RED BLOOD CELL (test code = RBC) 3.36 x10 6/uL 4.00-5.60 L HEMOGLOBIN (test code = HGB) 8.8 g/dL 12.5-16.9 L HEMATOCRIT (test code = HCT) 28.6 % 37.5-50.7 L MEAN CELL VOLUME (test code = MCV) 85.1 fL 81.0-99.0 N MEAN CELL HGB (test code = MCH) 26.2 pg 27.0-33.0 L MEAN CELL HGB CONCETRATION (test code = MCHC) 30.8 g/dL 33.0-37.0 L RED CELL DISTRIBUTION WIDTH CV (test code = RDW) 20.0 % 11.5-14.5 H RED CELL DISTRIBUTION WIDTH SD (test code = RDW-SD) 61.7 fL 37.0-54.0 H PLATELET COUNT (test code = PLT) 259 x10 3/uL 150-400 N MEAN PLATELET VOLUME (test c ode = MPV) 9.5 fL 7.0-9.0 H NEUTROPHIL % (test code = NT%) 72.5 % 56.0-77.0 N IMMATURE GRANULOCYTE % (test code = IG%) 0.4 % 0.0-2.0 N LYMPHOCYTE % (test code = LY%) 11.8 % 14.0-32.0 L MONOCYTE % (test code = MO%) 11.7 % 4.8-9.0 H EOSINOPHIL % (test code = EO%) 3.1 % 0.3-3.7 N BASOPHIL % (test code = BA%) 0.5 % 0.0-2.0 N NUCLEATED RBC % (test code = NRBC%) 0.0 % 0-0 N NEUTROPHIL # (test code = NT#) 5.53 x10 3/uL 2.0-7.6 N IMMATURE GRANULOCYTE # (test code = IG#) 0.03 x10 3/uL 0.00-0.03 N LYMPHOCYTE # (test code = LY#) 0.90 x10 3/uL 1.0-3.8 L MONOCYTE # (test code = MO#) 0.89 x10 3/uL 0.1-0.8 H EOSINOPHIL # (test code = EO#) 0.24 x10 3/uL 0.0-0.2 H BASOPHIL # (test code = BA#) 0.04 x10 3/uL 0.0-0.2 N NUCLEATED RBC # (test code = NRBC#) 0.00 x10 3/uL 0.0-0.1 N GLUCOSE [id number] 21:02:00* Test Item Value Reference Range Interpretation Comme nts GLUCOSE BEDSIDE (test code = GLUBED) 194 MG/DL 70-110 H Performed by cer tified felled seam operator at [facility] GLUCOSE [id number] 19:53:00* Test Item Value Reference Range Interpretation Comme nts GLUCOSE BEDSIDE (test code = GLUBED) 122 MG/DL 70-110 H Performed by cer tified felled seam operator at [facility] COMPREHENSIVE METABOLIC [id number] 06:02:00* Test Item Value Reference Range Interpretation Comme nts SODIUM (test code = NA) 134 mEq/L 134-147 N POTASSIUM (test code = K) 3.6 mEq/L 3.4-5.0 CHLORIDE (test code = CL) 107 mEq/L 100-108 N CARBON DIOXIDE (test code = CO2) 21 mEq/l 21-33 N ANION GAP (test code = GAP) 10 0-20 N GLUCOSE (test code = GLU) 110 mg/dL 77-141 BLOOD UREA NITROGEN (test code = BUN) 9 mg/dL 7-25 N GLOMERULAR FILTRATION RATE (test code = GFR) 94.8 80-90 H The Glomerular Filtration Rate is a calculated parameterbased on serum Creatinine, patient age and sex. GFR valuesless than 60 mL/min/1.73 square meters are indicative ofChronic Kidney Disease. Values less than 15 mL/min/1.73square meters indicate Kidney failure. The calculation forGFR is based on the CKD-EPI (202) calculation. This formulais race indifferent and is the recommended formula for GFRby the National Kidney Foundation for Adults.The GFR will not calculate if the sex is unknown or if thepatient's age is <18 years. CREATININE (test code = CREAT) 0.9 mg/dL 0.6-1.3 N TOTAL PROTEIN (test code = PROT) 6.6 g/dL 6.4-8.2 N ALBUMIN (test code = ALB) 2.50 g/dL 3.4-5.0 L CALCIUM (test code = CA) 8.4 mg/dL 8.0-10.5 N BILIRUBIN TOTAL (test code = BILT) 0.50 mg/dL 0.0-1.0 N SGOT/AST (test code = AST) 10 IUnit/L 8-34 N SGPT/ALT (test code = ALT) 7 IUnit/L 10-49 L ALKALINE PHOSPHATASE TOTAL (test code = ALKP) 99 IUnit/L 20-125 N [id number] 06:02:00* Test Item Value Reference Range Interpretation Comme nts MAGNESIUM (test code = MAG) 1.71 mg/dL 1.6-2.6 N CBC W/AUTO [id number] 04:50:00* Test Item Value Reference Range Interpretation Comme nts WHITE BLOOD CELL (test code = WBC) 8.5 x10 3/uL 4.5-11.0 N RED BLOOD CELL (test code = RBC) 3.18 x10 6/uL 4.00-5.60 L HEMOGLOBIN (test code = HGB) 8.4 g/dL 12.5-16.9 L HEMATOCRIT (test code = HCT) 26.9 % 37.5-50.7 L MEAN CELL VOLUME (test code = MCV) 84.6 fL 81.0-99.0 N MEAN CELL HGB (test code = MCH) 26.4 pg 27.0-33.0 L MEAN CELL HGB CONCETRATION (test code = MCHC) 31.2 g/dL 33.0-37.0 L RED CELL DISTRIBUTION WIDTH CV (test code = RDW) 19.7 % 11.5-14.5 H RED CELL DISTRIBUTION WIDTH SD (test code = RDW-SD) 60.4 fL 37.0-54.0 H PLATELET COUNT (test code = PLT) 232 x10 3/uL 150-400 N MEAN PLATELET VOLUME (test c ode = MPV) 9.4 fL 7.0-9.0 H NEUTROPHIL % (test code = NT%) 77.4 % 56.0-77.0 H IMMATURE GRANULOCYTE % (test code = IG%) 0.4 % 0.0-2.0 N LYMPHOCYTE % (test code = LY%) 10.2 % 14.0-32.0 L MONOCYTE % (test code = MO%) 9.4 % 4.8-9.0 H EOSINOPHIL % (test code = EO%) 2.1 % 0.3-3.7 N BASOPHIL % (test code = BA%) 0.5 % 0.0-2.0 N NUCLEATED RBC % (test code = NRBC%) 0.0 % 0-0 N NEUTROPHIL # (test code = NT#) 6.61 x10 3/uL 2.0-7.6 N IMMATURE GRANULOCYTE # (test code = IG#) 0.03 x10 3/uL 0.00-0.03 N LYMPHOCYTE # (test code = LY#) 0.87 x10 3/uL 1.0-3.8 L MONOCYTE # (test code = MO#) 0.80 x10 3/uL 0.1-0.8 N EOSINOPHIL # (test code = EO#) 0.18 x10 3/uL 0.0-0.2 N BASOPHIL # (test code = BA#) 0.04 x10 3/uL 0.0-0.2 N NUCLEATED RBC # (test code = NRBC#) 0.00 x10 3/uL 0.0-0.1 N GLUCOSE [id number] 21:29:00* Test Item Value Reference Range Interpretation Comme nts GLUCOSE BEDSIDE (test code = GLUBED) 121 MG/DL 70-110 H Performed by cer tified felled seam operator at [facility] COMPREHENSIVE METABOLIC [id number] 06:30:00* Test Item Value Reference Range Interpretation Comme nts SODIUM (test code = NA) 134 mEq/L 134-147 N POTASSIUM (test code = K) 2.6 mEq/L 3.4-5.0 LL Critical result called to [facility] at 0630 11/07/23Nurse read back resut and tech confirmed it's correct? Y CHLORIDE (test code = CL) 105 mEq/L 100-108 N CARBON DIOXIDE (test code = CO2) 21 mEq/l 21-33 N ANION GAP (test code = GAP) 11 0-20 N GLUCOSE (test code = GLU) 182 mg/dL 77-141 H BLOOD UREA NITROGEN (test code = BUN) 13 mg/dL 7-25 N GLOMERULAR FILTRATION RATE (test code = GFR) 84.1 80-90 N The Glomerular Filtration Rate is a calculated parameterbased on serum Creatinine, patient age and sex. GFR valuesless than 60 mL/min/1.73 square meters are indicative ofChronic Kidney Disease. Values less than 15 mL/min/1.73square meters indicate Kidney failure. The calculation forGFR is based on the CKD-EPI (2020) calculation. This formulais race indifferent and is the recommended formula for GFRby the National Kidney Foundation for Adults.The GFR will not calculate if the sex is unknown or if thepatient's age is <18 years. CREATININE (test code = CREAT) 1.0 mg/dL 0.6-1.3 N TOTAL PROTEIN (test code = PROT) 6.4 g/dL 6.4-8.2 N ALBUMIN (test code = ALB) 2.30 g/dL 3.4-5.0 L CALCIUM (test code = CA) 8.2 mg/dL 8.0-10.5 N BILIRUBIN TOTAL (test code = BILT) 0.40 mg/dL 0.0-1.0 SGOT/AST (test code = AST) 10 IUnit/L 8-34 N SGPT/ALT (test code = ALT) 8 IUnit/L 10-49 L ALKALINE PHOSPHATASE TOTAL (test code = ALKP) 99 IUnit/L 20-125 N [id number] 06:30:00* Test Item Value Reference Range Interpretation Comme nts PHOSPHOROUS (test code = PHOS) 2.7 MG/DL 2.5-4.9 N [id number] 06:30:00* Test Item Value Reference Range Interpretation Comme nts MAGNESIUM (test code = MAG) 1.51 mg/dL 1.6-2.6 L CBC W/AUTO [id number] 05:43:00* Test Item Value Reference Range Interpretation Comme nts WHITE BLOOD CELL (test code = WBC) 10.4 x10 3/uL 4.5-11.0 N RED BLOOD CELL (test code = RBC) 3.07 x10 6/uL 4.00-5.60 L HEMOGLOBIN (test code = HGB) 8.1 g/dL 12.5-16.9 L HEMATOCRIT (test code = HCT) 26.0 % 37.5-50.7 L MEAN CELL VOLUME (test code = MCV) 84.7 fL 81.0-99.0 N MEAN CELL HGB (test code = MCH) 26.4 pg 27.0-33.0 L MEAN CELL HGB CONCETRATION (test code = MCHC) 31.2 g/dL 33.0-37.0 L RED CELL DISTRIBUTION WIDTH CV (test code = RDW) 19.8 % 11.5-14.5 H RED CELL DISTRIBUTION WIDTH SD (test code = RDW-SD) 61.0 fL 37.0-54.0 H PLATELET COUNT (test code = PLT) 217 x10 3/uL 150-400 N MEAN PLATELET VOLUME (test c ode = MPV) 9.7 fL 7.0-9.0 H NEUTROPHIL % (test code = NT%) 81.2 % 56.0-77.0 H IMMATURE GRANULOCYTE % (test code = IG%) 0.6 % 0.0-2.0 N LYMPHOCYTE % (test code = LY%) 9.0 % 14.0-32.0 L MONOCYTE % (test code = MO%) 7.4 % 4.8-9.0 N EOSINOPHIL % (test code = EO%) 1.4 % 0.3-3.7 N BASOPHIL % (test code = BA%) 0.4 % 0.0-2.0 N NUCLEATED RBC % (test code = NRBC%) 0.0 % 0-0 N NEUTROPHIL # (test code = NT#) 8.44 x10 3/uL 2.0-7.6 H IMMATURE GRANULOCYTE # (test code = IG#) 0.06 x10 3/uL 0.00-0.03 H LYMPHOCYTE # (test code = LY#) 0.93 x10 3/uL 1.0-3.8 L MONOCYTE # (test code = MO#) 0.77 x10 3/uL 0.1-0.8 N EOSINOPHIL # (test code = EO#) 0.15 x10 3/uL 0.0-0.2 N BASOPHIL # (test code = BA#) 0.04 x10 3/uL 0.0-0.2 N NUCLEATED RBC # (test code = NRBC#) 0.00 x10 3/uL 0.0-0.1 N UA RFLX MICR CULT IF [id number] 16:26:00* Test Item Value Reference Range Interpretation Comme nts UA COLOR (test code = COLU) YELLOW YEL/STRAW UA APPEARANCE (test code = APPU) TURBID CLEAR A UA GLUCOSE DIPSTICK (test co de = DGLUU) 3+ NEGATIVE A UA BILIRUBIN DIPSTICK (test code = BILU) NEGATIVE NEGATIVE UA KETONE DIPSTICK (test cod e = KETU) NEGATIVE NEGATIVE UA SPECIFIC GRAVITY (test co de = SGU) 1.020 1.005-1.030 N UA BLOOD DIPSTICK (test code = DARIN) 1+ NEGATIVE A UA PH DIPSTICK (test code = MARTIN) 5.0 5.0-7.0 N UA PROTEIN DIPSTICK (test co de = PROU) 2+ NEGATIVE A UA UROBILINIOGEN DIPSTICK (test code = URO) 0.2 mg/dL 0.2-1.0 UA NITRITE DIPSTICK (test co de = MATTHEW) NEGATIVE NEGATIVE UA LEUKOCYTE ESTERASE DIPSTI CK (test code = LEUU) 3+ NEGATIVE A UA WBC (test code = WBCU) >50 WBC/HPF 0-3 A UA RBC (test code = RBCU) >50 RBC/HPF 0-3 A UA WBC NO REFLEX (test code = WBCUCL) >50 WBC/HPF 0-3 A UA BACTERIA (test code = BACU) 2+ /HPF NONE SEEN A UA SQUAMOUS CELLS (test code = SQU) NONE SEEN /HPF NONE SEEN Indication for culture: Suprapubic PainSpecimen Description: CLEAN CATCHHGB HCT 2023-11-06 13:24:00* Test Item Value Reference Range Interpretation Comme nts HEMOGLOBIN (test code = HGB) 8.3 g/dL 12.5-16.9 L HEMATOCRIT (test code = HCT) 26.5 % 37.5-50.7 L LACTIC [id number] 05:17:00* Test Item Value Reference Range Interpretation Comme nts LACTIC ACID (test code = LACT) 0.9 mmol/L 0.4-1.9 N [id number] 03:24:00* Test Item Value Reference Range Interpretation Comme nts LIPASE (test code = LIP) 30 U/L 13-57 N BASIC METABOLIC [id number] 03:24:00* Test Item Value Reference Range Interpretation Comme nts SODIUM (test code = NA) 136 mEq/L 134-147 N POTASSIUM (test code = K) 3.4 mEq/L 3.4-5.0 N CHLORIDE (test code = CL) 106 mEq/L 100-108 N CARBON DIOXIDE (test code = CO2) 23 mEq/l 21-33 N ANION GAP (test code = GAP) 10 0-20 N GLUCOSE (test code = GLU) 168 mg/dL 77-141 H BLOOD UREA NITROGEN (test code = BUN) 20 mg/dL 7-25 N GLOMERULAR FILTRATION RATE (test code = GFR) 61.3 80-90 L The Glomerular Filtration Rate is a calculated parameterbased on serum Creatinine, patient age and sex. GFR valuesless than 60 mL/min/1.73 square meters are indicative ofChronic Kidney Disease. Values less than 15 mL/min/1.73square meters indicate Kidney failure. The calculation forGFR is based on the CKD-EPI (2020) calculation. This formulais race indifferent and is the recommended formula for GFRby the National Kidney Foundation for Adults.The GFR will not calculate if the sex is unknown or if thepatient's age is <18 years. CREATININE (test code = CREAT) 1.3 mg/dL 0.6-1.3 N CALCIUM (test code = CA) 8.5 mg/dL 8.0-10.5 N HEPATIC FUNCTION [id number] 03:24:00* Test Item Value Reference Range Interpretation Comme nts TOTAL PROTEIN (test code = PROT) 7.2 g/dL 6.4-8.2 N ALBUMIN (test code = ALB) 2.60 g/dL 3.4-5.0 L BILIRUBIN TOTAL (test code = BILT) 0.30 mg/dL 0.0-1.0 N BILIRUBIN DIRECT (test code = BILD) 0.10 MG/DL 0.1-0.3 N SGOT/AST (test code = AST) 12 IUnit/L 8-34 N SGPT/ALT (test code = ALT) 10 IUnit/L 10-49 N ALKALINE PHOSPHATASE TOTAL ( test code = ALKP) 137 IUnit/L 20-125 H BILIRUBIN INDIRECT (test cod e = BILIND) 0.20 MG/DL PROTHROMBIN [id number] 03:16:00* Test Item Value Reference Range Interpretation Comme [facility] PROTHROMBIN TIME PATIENT (test code = PTP) 12.0 SECONDS 9.3-12.9 N INTERNATIONAL NORMAL RATIO (test code = INR) 1.1 0.8-1.2 N TARGET INR BY INDICATION Indication INR1. Prophylaxis of venous thrombosis 2.0 - 3.0 (orthopedic surgery), Prophylaxis of venous thrombosis (other than high-risk surgery), Treatment of Deep Vein Thrombosis/Pulmonary Embolism, Prevention of systemic embolism - Tissue heart valves, Acute Myocardial Infarction (to prevent systemic embolism), Valvular heart disease, Atrial Fibrillation, Bileaflet mechanical valve in aortic position.2. Mechanical prosthetic valves (high risk), 2.5 - 3.5 Presence of Lupus Anticoagulant or Antiphospholipid Antibodies, Prevention of systemic embolism - Acute Myocardial Infarction (to prevent recurrent infarct). THROMBOPLASTIN TIME [id number] 03:16:00* Test Item Value Reference Range Interpretation Comme [facility] THROMBOPLASTIN TIME PARTIAL (test code = PTT) 29.7 Seconds 25.0-39.5 N Therapeutic Rang e: 50.4 - 88.3 Seconds Effective 10/16/2018 CBC W/O [id number] 02:52:00* Test Item Value Reference Range Interpretation Comme nts WHITE BLOOD CELL (test code = WBC) 12.0 x10 3/uL 4.5-11.0 H RED BLOOD CELL (test code = RBC) 2.97 x10 6/uL 4.00-5.60 L HEMOGLOBIN (test code = HGB) 7.9 g/dL 12.5-16.9 L HEMATOCRIT (test code = HCT) 25.1 % 37.5-50.7 L MEAN CELL VOLUME (test code = MCV) 84.5 fL 81.0-99.0 N MEAN CELL HGB (test code = MCH) 26.6 pg 27.0-33.0 L MEAN CELL HGB CONCETRATION (test code = MCHC) 31.5 g/dL 33.0-37.0 L RED CELL DISTRIBUTION WIDTH CV (test code = RDW) 20.5 % 11.5-14.5 H RED CELL DISTRIBUTION WIDTH SD (test code = RDW-SD) 63.1 fL 37.0-54.0 H PLATELET COUNT (test code = PLT) 250 x10 3/uL 150-400 N MEAN PLATELET VOLUME (test c ode = MPV) 9.9 fL 7.0-9.0 H HERIBERTO [id number] 14:34:00* Test Item Value Reference Range Interpretation Comme nts HERIBERTO DIRECT (test code = ANADIR) Positive See_Comment A Negative <1:80 B orderline 1:80 Positive >1:80 Negative <1:80 Borderline 1:80 Positive >1:80Note:A positive HERIBERTO result may occur in healthy individuals (lowtiter) or be associated with a variety of diseases. Seeinterpretation chart which is not all inclusive: Pattern Antigen Detected Suggested Disease Association -Homogeneous DNA(ds,ss), SLE - High titers Nucleosomes, Histones Drug-induced SLE -Speckled Sm, BUCKLER AND LACER, SCL-70 SLE,MCTD,PSS (diffuse form), SS-A/SS-B Sjogrens -Nucleolar SCL-70, PM-1/SCL High titers Scleroderma, PM/DM -Centromere Centromere PSS (limited form) w/Crest syndrome variable -Nuclear Dot Sp100,t66-khrbpi Primary Biliary Cirrhosis -Nuclear GP210, Primary Biliary CirrhosisMembrane sandrine A,B,C - [Automated message] The system which generated this result transmitted reference range: (). The reference range was not used to interpret this result as normal/abnormal. HERIBERTO [id number] 14:34:00* Test Item Value Reference Range Interpretation Comme nts HERIBERTO TITER (test code = ANATITR) 1:80 See_Comment HOMOGENEOUS LINDA RAINER POSITIVE AT 1:80ICAP nomenclature: AC-1 For more information about Hep-2 cell patterns useANApatterns.org, the official website for the InternationalConsensus on Antinuclear Antibody (HERIBERTO) Patterns (ICAP). ---A positive HERIBERTO result may occur in healthy individuals (lowtiter) or be associated with a variety of diseases. Seeinterpretation chart which is not all inclusive: Pattern Antigen Detected Suggested Disease Association Marie ogeneous DNA(ds,ss), SLE - High titers Nucleosomes, Histones Drug-induced SLE Spe ckled Sm, BUCKLER AND LACER, SCL-70, SLE,MCTD,PSS (diffuse form), SS-A/SS-B Sjogrens Nuc leolar SCL-70, PM-1/SCL High titers Scleroderma, PM/DM Vanessa amishe Centromere PSS (limited form) w/Crest syndrome variable Nuc lear Dot Sp100,b89-goziik Primary Biliary Cirrhosis Nuc lear GP210, Primary Biliary CirrhosisMembrane sandrine A,B,C For more information about Hep-2 cell patterns useCLEARSKY REHABILITATION HOSPITAL OF [email or web address], the official website for the InternationalConsensus on Antinuclear Antibody (HERIBERTO) Patterns (ICAP). ---A positive HERIBERTO result may occur in healthy individuals (lowtiter) or be associated with a variety of diseases. Seeinterpretation chart which is not all inclusive: Pattern Antigen Detected Suggested Disease Association Marie ogeneous DNA(ds,ss), SLE - High titers Nucleosomes, Histones Drug-induced SLE Spe ckled Sm, BUCKLER AND LACER, SCL-70, SLE,MCTD,PSS (diffuse form), SS-A/SS-B Sjogrens Nuc leolar SCL-70, PM-1/SCL High titers Scleroderma, PM/DM Vanessa tromere Centromere PSS (limited form) w/Crest syndrome variable Nuc lear Dot Sp100,u94-okpjlk Primary Biliary Cirrhosis Nuc lear GP210, Primary Biliary CirrhosisMembrane sandrine A,B,C [Automated message] The system which generated this result transmitted reference range: <1:80. The reference range was not used to interpret this result as normal/abnormal. POCT GLUCOSE (AUTOMATED)2022-06-29 18:22:02* Test Item Value Reference Range Interpretation Comme nts POCT GLU (test code = 0700241154) 248 mg/dL 70-110 H Lab Interpretation (test cod e = 17486-2) Abnormal [facility] GLUCOSE (AUTOMATED)2022-06-29 15:35:16* Test Item Value Reference Range Interpretation Comme nts POCT GLU (test code = 4750898370) 167 mg/dL 70-110 H Lab Interpretation (test cod e = 54965-9) Abnormal [facility] GLUCOSE (AUTOMATED)2022-06-29 02:41:00* Test Item Value Reference Range Interpretation Comme nts POCT GLU (test code = 7757377514) 153 mg/dL 70-110 H Lab Interpretation (test cod e = 08627-4) Abnormal [facility] GLUCOSE (AUTOMATED)2022-06-28 23:12:05* Test Item Value Reference Range Interpretation Comme nts POCT GLU (test code = 6007625005) 158 mg/dL 70-110 H Lab Interpretation (test cod e = 12546-2) Abnormal [facility] GLUCOSE (AUTOMATED)2022-06-28 18:01:20* Test Item Value Reference Range Interpretation Comme nts POCT GLU (test code = 7780008215) 172 mg/dL 70-110 H Lab Interpretation (test cod e = 77048-6) Abnormal [facility] GLUCOSE (AUTOMATED)2022-06-28 15:58:01* Test Item Value Reference Range Interpretation Comme nts POCT GLU (test code = 4890983908) 153 mg/dL 70-110 H Lab Interpretation (test cod e = 11880-5) [facility]normal [facility] (ALB,T.PRO,BILI T,BU/BC,ALT,AST,ALK PHOS)2022-06-28 12:47:20* Test Item Value Reference Range Interpretation Comme nts TOTAL BILI (test code = 9385974243) 0.4 mg/dL 0.1-1.1 BILI UNCON (test code = 5258639842) 0.1 mg/dL 0.1-1.1 BILI CONJ (test code = 8466159593) 0.0 mg/dL 0.0-0.3 T PROTEIN (test code = 7829350956) 6.7 g/dL 6.3-8.2 ALBUMIN (test code = 6407238211) 3.6 g/dL 3.5-5.0 ALK PHOS (test code = 4668271791) 120 U/L 34-122 ALTv (test code = 1742-6) 17 U/L 5-50 AST(SGOT) (test code = 8490436610) 27 U/L 13-40 Lab Interpretation (test cod e = 10493-6) Normal [facility]OL[facility] (NA, K, CL, CO2, GLUCOSE, BUN, CREATININE, CA)2022-06-28 12:47:19* Test Item Value Reference Range Interpretation Comme nts NA (test code = 6120323694) 133 mmol/L 135-145 L K (test code = 6198032030) 4.0 mmol/L 3.5-5.0 CL (test code = 9764586246) 103 mmol/L 98-108 CO2 TOTAL (test code = 9569258466) 27 mmol/L 23-31 AGAP (test code = 7376988497) 2-16 BUN (test code = 3633767176) 45 mg/dL 7-23 H GLUCOSE (test code = 7819897252) 134 mg/dL 70-110 H CREATININE (test code = 6609206037) 1.18 mg/dL 0.60-1.25 CALCIUM (test code = 9262124378) 8.6 mg/dL 8.6-10.6 eGFR (test code = 9829206009) mL/min/1.73m2 PIPO (test code = PIPO) Association [...] imaging tests). Lab Interpretation (test code = 65341-8) [facility]normal [facility] and Screen - ONCE [id number] 12:34:39 * Test Item Value Reference Range Interpretation Comme [facility] ABO & RH (test code = 20) O POSITIVE Performed at [facility] Laboratory Services - [facility] Blood [address] Free: [phone] No. [id number] IAT (test code = 1185) Negative Performed at [facility] Laboratory Services - [facility] Blood [address] Free: [phone] No. [id number] [facility]kinaPTT2022-12-27 12:28:19* Test Item Value Reference Range Interpretation Comme [facility] APTT Patient (test code = 3173-2) See_Comment [Automated messa ge] The system which generated this result transmitted reference range: 26 - 36 Seconds. The reference range was not used to interpret this result as normal/abnormal. Lab Interpretation (test code = 47382-8) Normal [facility]kinProthrombin Time / [id number] 12:28:18* Test Item Value Reference Range Interpretation Comme [facility] PROTIME PATIENT (test code = 5964-2) See_Comment [Automated messa ge] The system which generated this result transmitted reference range: 10.1 - 12.6 Seconds. The reference range was not used to interpret this result as normal/abnormal. INR (test code = 6301-6) Normal INR <1.1; Warfarin Therapeutic range 2.0 to 3.0 or 2.5 to 3.5, depending upon the indications. Lab Interpretation (test code = 57172-7) Normal [facility] WITH [id number] 12:26:17* Test Item Value Reference Range Interpretation Comme [facility] WBC (test code = 6690-2) See_Comment [Automated [...] 33.3 g/dL 31.2-35.0 RDW-SD (test code = 11783-0) 49.7 fL 38.5-51.6 RDW-CV (test code = 788-0) 15.9 % 12.1-15.4 H PLT (test code = 777-3) See_Comment [Automated messa ge] The system which generated this result transmitted reference range: 150 - 328 10*3/?L. The reference range was not used to interpret this result as normal/abnormal. MPV (test code = 58497-1) 9.6 fL 9.8-13.0 L NRBC/100 WBC (test code = 7537510378) See_Comment [Automated me ssage] The system which generated this result transmitted reference range: 0.0 - 10.0 /100 WBCs. The reference range was not used to interpret this result as normal/abnormal. NRBC x10^3 (test code = 1742880323) See_Comment [Automated messa ge] The system which generated this result transmitted reference range: 10*3/?L. The reference range was not used to interpret this result as normal/abnormal. GRAN MAT (NEUT) % (test code = 770-8) 67.6 % IMM GRAN % (test code = 1198368226) 0.70 % LYMPH % (test code = 736-9) 20.7 % MONO % (test code = 5905-5) 7.1 % EOS % (test code = 713-8) 3.5 % BASO % (test code = 706-2) 0.4 % GRAN MAT x10^3(ANC) (test code = 0686449355) 4.57 10*3/uL 1.99-6.95 IMM GRAN x10^3 (test code = 0802536127) 0.05 10*3/uL 0.00-0.06 LYMPH x10^3 (test code = 731-0) 1.40 10*3/uL 1.09-3.23 MONO x10^3 (test code = 742-7) 0.48 10*3/uL 0.36-1.02 EOS x10^3 (test code = 711-2) 0.24 10*3/uL 0.06-0.53 BASO x10^3 (test code = 704-7) 0.03 10*3/uL 0.01-0.09 Lab Interpretation (test code = 61957-6) Abnormal [facility] GLUCOSE (AUTOMATED)2022-05-17 23:15:41* Test Item Value Reference Range Interpretation Comme nts POCT GLU (test code = 6958181934) 348 mg/dL 70-110 H Lab Interpretation (test cod e = 23151-5) Abnormal [facility] GLUCOSE (AUTOMATED)2022-05-17 22:01:36* Test Item Value Reference Range Interpretation Comme nts POCT GLU (test code = 4326419353) 366 mg/dL 70-110 H Lab Interpretation (test cod e = 95561-6) Abnormal [facility] GLUCOSE (AUTOMATED)2022-05-17 17:39:43* Test Item Value Reference Range Interpretation Comme nts POCT GLU (test code = 4740290263) 253 mg/dL 70-110 H Lab Interpretation (test cod e = 40138-4) Abnormal [facility] GLUCOSE (AUTOMATED)2022-05-17 13:58:09* Test Item Value Reference Range Interpretation Comme nts POCT GLU (test code = 5583783248) 194 mg/dL 70-110 H Lab Interpretation (test cod e = 41279-7) Abnormal [facility] METABOLIC PANEL (NA, K, CL, CO2, GLUCOSE, BUN, CREATININE, CA)2022-05-17 08:24:41* Test Item Value Reference Range Interpretation Comme nts NA (test code = 6329359284) 131 mmol/L 135-145 L K (test code = 7186170191) 3.4 mmol/L 3.5-5.0 L CL (test code = 4380932711) 98 mmol/L 98-108 CO2 TOTAL (test code = 9057800544) 31 mmol/L 23-31 AGAP (test code = 2744929821) 2-16 BUN (test code = 9971958024) 12 mg/dL 7-23 GLUCOSE (test code = 2289461133) 221 mg/dL 70-110 H CREATININE (test code = 9959093526) 0.75 mg/dL 0.60-1.25 CALCIUM (test code = 9003015945) 7.3 mg/dL 8.6-10.6 L eGFR (test code = 9646970158) mL/min/1.73m2 PIPO (test code = PIPO) Association [...] imaging tests). Lab Interpretation (test code = 15368-1) Abnormal [facility] METABOLIC PANEL (NA, K, CL, CO2, GLUCOSE, BUN, CREATININE, CA)2022-05-17 08:24:41* Test Item Value Reference Range Interpretation Comme nts NA (test code = 4619914678) 131 mmol/L 135-145 L K (test code = 6546385848) 3.4 mmol/L 3.5-5.0 L CL (test code = 4258271031) 98 mmol/L 98-108 CO2 TOTAL (test code = 8742405653) 31 mmol/L 23-31 AGAP (test code = 2859652403) 2-16 BUN (test code = 8669451981) 12 mg/dL 7-23 GLUCOSE (test code = 7298346036) 221 mg/dL 70-110 H CREATININE (test code = 9262979308) 0.75 mg/dL 0.60-1.25 CALCIUM (test code = 0226693600) 7.3 mg/dL 8.6-10.6 L eGFR (test code = 5379173518) mL/min/1.73m2 PIPO (test code = PIPO) Association [...] imaging tests). Lab Interpretation (test code = 70465-7) Abnormal [facility] WITHOUT [id number] 08:02:55* Test Item Value Reference Range Interpretation [...] result as normal/abnormal. MPV (test code = 68882-7) 9.5 fL 9.8-13.0 L RDW-CV (test code = 788-0) 14.5 % 12.1-15.4 RDW-SD (test code = 83133-5) 45.0 fL 38.5-51.6 NRBC x10^3 (test code = 6221212632) See_Comment [Automated messa ge] The system which generated this result transmitted reference range: 10*3/?L. The reference range was not used to interpret this result as normal/abnormal. NRBC/100 WBC (test code = 9188796252) See_Comment [Automated messa ge] The system which generated this result transmitted reference range: 0.0 - 10.0 /100 WBCs. The reference range was not used to interpret this result as normal/abnormal. IPF % (test code = 5429185588) Lab Interpretation (test code = 10505-2) Abnormal [facility] WITHOUT [id number] 08:02:55* Test Item Value Reference Range Interpretation [...] result as normal/abnormal. MPV (test code = 92971-6) 9.5 fL 9.8-13.0 L RDW-CV (test code = 788-0) 14.5 % 12.1-15.4 RDW-SD (test code = 75641-4) 45.0 fL 38.5-51.6 NRBC x10^3 (test code = 3554659421) See_Comment [Automated messa ge] The system which generated this result transmitted reference range: 10*3/?L. The reference range was not used to interpret this result as normal/abnormal. NRBC/100 WBC (test code = 0816574398) See_Comment [Automated LionWorksa ge] The system which generated this result transmitted reference range: 0.0 - 10.0 /100 WBCs. The reference range was not used to interpret this result as normal/abnormal. IPF % (test code = 1070909405) Lab Interpretation (test code = 10268-2) Abnormal [facility] GLUCOSE (AUTOMATED)2022-05-17 01:41:19* Test Item Value Reference Range Interpretation Comme [facility] POCT GLU (test code = 1762472813) 219 mg/dL 70-110 H Lab Interpretation (test cod e = 96909-6) Abnormal [facility] GLUCOSE (AUTOMATED)2022-05-17 01:41:19* Test Item Value Reference Range Interpretation Comme [facility] POCT GLU (test code = 6866522643) 219 mg/dL 70-110 H Lab Interpretation (test cod e = 17766-3) Abnormal [facility] GLUCOSE (AUTOMATED)2022-05-16 22:19:26* Test Item Value Reference Range Interpretation Comme nts POCT GLU (test code = 2223044347) 195 mg/dL 70-110 H Lab Interpretation (test cod e = 01297-2) Abnormal [facility] GLUCOSE (AUTOMATED)2022-05-16 22:19:26* Test Item Value Reference Range Interpretation Comme nts POCT GLU (test code = 3269147324) 195 mg/dL 70-110 H Lab Interpretation (test cod e = 04558-7) Abnormal [facility] GLUCOSE (AUTOMATED)2022-05-16 17:33:39* Test Item Value Reference Range Interpretation Comme nts POCT GLU (test code = 3311193058) 203 mg/dL 70-110 H Lab Interpretation (test cod e = 15451-3) Abnormal [facility] GLUCOSE (AUTOMATED)2022-05-16 17:33:39* Test Item Value Reference Range Interpretation Comme nts POCT GLU (test code = 5103384161) 203 mg/dL 70-110 H Lab Interpretation (test cod e = 20762-2) Abnormal [facility] WITHOUT [id number] 15:52:40* Test Item Value Reference Range Interpretation [...] result as normal/abnormal. MPV (test code = 17605-5) 9.5 fL 9.8-13.0 L RDW-CV (test code = 788-0) 15.0 % 12.1-15.4 RDW-SD (test code = 38497-6) 47.1 fL 38.5-51.6 NRBC x10^3 (test code = 6833183427) See_Comment [Automated messa ge] The system which generated this result transmitted reference range: 10*3/?L. The reference range was not used to interpret this result as normal/abnormal. NRBC/100 WBC (test code = 6922064035) See_Comment [Automated messa ge] The system which generated this result transmitted reference range: 0.0 - 10.0 /100 WBCs. The reference range was not used to interpret this result as normal/abnormal. IPF % (test code = 8927848160) Lab Interpretation (test code = 44254-9) Abnormal [facility] WITHOUT [id number] 15:52:40* Test Item Value Reference Range Interpretation [...] result as normal/abnormal. MPV (test code = 18457-6) 9.5 fL 9.8-13.0 L RDW-CV (test code = 788-0) 15.0 % 12.1-15.4 RDW-SD (test code = 74277-9) 47.1 fL 38.5-51.6 NRBC x10^3 (test code = 3763549976) See_Comment [Automated messa ge] The system which generated this result transmitted reference range: 10*3/?L. The reference range was not used to interpret this result as normal/abnormal. NRBC/100 WBC (test code = 9429875866) See_Comment [Automated messa ge] The system which generated this result transmitted reference range: 0.0 - 10.0 /100 WBCs. The reference range was not used to interpret this result as normal/abnormal. IPF % (test code = 8327441718) Lab Interpretation (test code = 40983-6) Abnormal [facility] GLUCOSE (AUTOMATED)2022-05-16 14:09:00* Test Item Value Reference Range Interpretation Comme nts POCT GLU (test code = 1144700064) 194 mg/dL 70-110 H Lab Interpretation (test cod e = 54255-0) Abnormal [facility] GLUCOSE (AUTOMATED)2022-05-16 14:09:00* Test Item Value Reference Range Interpretation Comme nts POCT GLU (test code = 4757090999) 194 mg/dL 70-110 H Lab Interpretation (test cod e = 27524-7) [facility]normal [facility] 12:17:29* Test Item Value Reference Range Interpretation Comme nts MAGNESIUM (test code = 4623263692) 1.5 mg/dL 1.7-2.4 L Lab Interpretation (test cod e = 19233-7) [facility]normal [facility] 12:17:29* Test Item Value Reference Range Interpretation Comme nts MAGNESIUM (test code = 1141186765) 1.5 mg/dL 1.7-2.4 L Lab Interpretation (test cod e = 17269-8) [facility]normal [facility] (NA, K, CL, CO2, GLUCOSE, BUN, CREATININE, CA)2022-05-16 12:17:28* Test Item Value Reference Range Interpretation Comme nts NA (test code = 4691545346) 134 mmol/L 135-145 L K (test code = 9917743050) 3.5 mmol/L 3.5-5.0 CL (test code = 6537913665) 104 mmol/L 98-108 CO2 TOTAL (test code = 1991763923) 27 mmol/L 23-31 AGAP (test code = 3661250939) 2-16 BUN (test code = 2582320614) 23 mg/dL 7-23 GLUCOSE (test code = 7910475843) 179 mg/dL 70-110 H CREATININE (test code = 0682569420) 0.77 mg/dL 0.60-1.25 CALCIUM (test code = 6253582190) 7.5 mg/dL 8.6-10.6 L eGFR (test code = 9878838330) mL/min/1.73m2 PIPO (test code = PIPO) Association [...] imaging tests). Lab Interpretation (test code = 40496-1) Abnormal [facility] METABOLIC PANEL (NA, K, CL, CO2, GLUCOSE, BUN, CREATININE, CA)2022-05-16 12:17:28* Test Item Value Reference Range Interpretation Comme nts NA (test code = 3015114039) 134 mmol/L 135-145 L K (test code = 4062430055) 3.5 mmol/L 3.5-5.0 CL (test code = 3117422108) 104 mmol/L 98-108 CO2 TOTAL (test code = 0594464450) 27 mmol/L 23-31 AGAP (test code = 0950049946) 2-16 BUN (test code = 0406854944) 23 mg/dL 7-23 GLUCOSE (test code = 9242447596) 179 mg/dL 70-110 H CREATININE (test code = 3925333323) 0.77 mg/dL 0.60-1.25 CALCIUM (test code = 8333104859) 7.5 mg/dL 8.6-10.6 L eGFR (test code = 1246731018) mL/min/1.73m2 PIPO (test code = PIPO) Association [...] imaging tests). Lab Interpretation (test code = 19457-3) Abnormal [facility] WITHOUT [id number] 11:41:44* Test Item Value Reference Range Interpretation [...] result as normal/abnormal. MPV (test code = 75469-4) 9.6 fL 9.8-13.0 L RDW-CV (test code = 788-0) 15.0 % 12.1-15.4 RDW-SD (test code = 72653-0) 47.2 fL 38.5-51.6 NRBC x10^3 (test code = 1480376803) See_Comment [Automated messa ge] The system which generated this result transmitted reference range: 10*3/?L. The reference range was not used to interpret this result as normal/abnormal. NRBC/100 WBC (test code = 1190085909) See_Comment [Automated messa ge] The system which generated this result transmitted reference range: 0.0 - 10.0 /100 WBCs. The reference range was not used to interpret this result as normal/abnormal. IPF % (test code = 5597930352) Lab Interpretation (test code = 04886-1) Abnormal [facility] WITHOUT [id number] 11:41:44* Test Item Value Reference Range Interpretation [...] result as normal/abnormal. MPV (test code = 03829-1) 9.6 fL 9.8-13.0 L RDW-CV (test code = 788-0) 15.0 % 12.1-15.4 RDW-SD (test code = 40854-6) 47.2 fL 38.5-51.6 NRBC x10^3 (test code = 2520168638) See_Comment [Automated [employer]Check] The system which generated this result transmitted reference range: 10*3/?L. The reference range was not used to interpret this result as normal/abnormal. NRBC/100 WBC (test code = 9865054759) See_Comment [Automated [employer]] The system which generated this result transmitted reference range: 0.0 - 10.0 /100 WBCs. The reference range was not used to interpret this result as normal/abnormal. IPF % (test code = 1955739506) Lab Interpretation (test code = 10572-6) [facility]normal [facility]2022-[facility]-15 22:32:10* Test Item Value Reference Range Interpretation Comme nts Height (test code = 4237964498) in Weight (test code = 6079602837) lbs Systolic BP (test code = 8207326974) mmHg Diastolic BP (test code = 5220398329) mmHg Heart Rate (test code = 1758280018) bpm Radiology Study observation (narrative) (test code = 64113-1) PIPO (test code = PIPO) ?Left?Ventricle: Left [...] mL of Lumason ultrasound enhancing agent used. [facility]2022-05-15 22:32:10* Test Item Value Reference Range Interpretation Comme nts Height (test code = 1044824215) in Weight (test code = 0770817688) lbs Systolic BP (test code = 4121004131) mmHg Diastolic BP (test code = 1676640518) mmHg Heart Rate (test code = 6158409112) bpm Radiology Study observation (narrative) (test code = 94543-8) PIPO (test code = PIPO) ?Left?Ventricle: Left [...] mL of Lumason ultrasound enhancing agent used. [facility] WITHOUT [id number] 22:15:46* Test Item Value Reference Range Interpretation [...] result as normal/abnormal. MPV (test code = 00973-2) 9.7 fL 9.8-13.0 L RDW-CV (test code = 788-0) 15.2 % 12.1-15.4 RDW-SD (test code = 63268-2) 48.1 fL 38.5-51.6 NRBC x10^3 (test code = 1477863503) See_Comment [Automated messa ge] The system which generated this result transmitted reference range: 10*3/?L. The reference range was not used to interpret this result as normal/abnormal. NRBC/100 WBC (test code = 8393061116) See_Comment [Automated messa ge] The system which generated this result transmitted reference range: 0.0 - 10.0 /100 WBCs. The reference range was not used to interpret this result as normal/abnormal. IPF % (test code = 7747727099) Lab Interpretation (test code = 84782-3) Abnormal [facility] WITHOUT [id number] 22:15:46* Test Item Value Reference Range Interpretation [...] result as normal/abnormal. MPV (test code = 49139-2) 9.7 fL 9.8-13.0 L RDW-CV (test code = 788-0) 15.2 % 12.1-15.4 RDW-SD (test code = 62988-9) 48.1 fL 38.5-51.6 NRBC x10^3 (test code = 0307565219) See_Comment [Automated messa ge] The system which generated this result transmitted reference range: 10*3/?L. The reference range was not used to interpret this result as normal/abnormal. NRBC/100 WBC (test code = 4475915242) See_Comment [Automated messa ge] The system which generated this result transmitted reference range: 0.0 - 10.0 /100 WBCs. The reference range was not used to interpret this result as normal/abnormal. IPF % (test code = 5121848429) Lab Interpretation (test code = 06322-8) Abnormal [facility] GLUCOSE (AUTOMATED)2022-05-15 22:09:19* Test Item Value Reference Range Interpretation Comme nts POCT GLU (test code = 1175375803) 208 mg/dL 70-110 H Lab Interpretation (test cod e = 48429-1) Abnormal [facility] GLUCOSE (AUTOMATED)2022-05-15 22:09:19* Test Item Value Reference Range Interpretation Comme nts POCT GLU (test code = 8482604332) 208 mg/dL 70-110 H Lab Interpretation (test cod e = 78627-9) Abnormal [facility] GLUCOSE (AUTOMATED)2022-05-15 17:51:24* Test Item Value Reference Range Interpretation Comme nts POCT GLU (test code = 4594614640) 227 mg/dL 70-110 H Lab Interpretation (test cod e = 45911-1) Abnormal [facility] GLUCOSE (AUTOMATED)2022-05-15 17:51:24* Test Item Value Reference Range Interpretation Comme nts POCT GLU (test code = 3697836399) 227 mg/dL 70-110 H Lab Interpretation (test cod e = 33653-5) Abnormal [facility] Packed RBC (in units), 1 Units 2022-05-15 14:38:44* Test Item Value Reference Range Interpretation Comme nts Cross Match Result (test code = 4409) Compatible ISBT Blood Type Code (test code = 208063) Unit Blood Type (test code = 4410) O Pos Unit Number (test code = 4411) [id number] Blood Expiration Date & Time (test code = 446992) Status Information (test code = 4412) Issued Product Identification (test code = 4413) Red Blood Cells Product Code (test code = 4414) [id number] Performed at [facility] B Laboratory Services - [facility] Blood [address] [place] [address]Hsbw Free: [phone] No. [id number] [facility] Packed RBC (in units), 1 Units 2022-05-15 14:38:44* Test Item Value Reference Range Interpretation Comme nts Cross Match Result (test code = 4409) Compatible ISBT Blood Type Code (test code = 509970) Unit Blood Type (test code = 4410) O Pos Unit Number (test code = 4411) [id number] Blood Expiration Date & Time (test code = 440714) Status Information (test code = 4412) Issued Product Identification (test code = 4413) Red Blood Cells Product Code (test code = 4414) [id number] Performed at [facility] Laboratory Services [facility] Blood [address] [address]Hdht Free: [phone] No. [id number] [facility] GLUCOSE (AUTOMATED)2022-05-15 13:49:03* Test Item Value Reference Range Interpretation Comme [facility] POCT GLU (test code = 5512097607) 236 mg/dL 70-110 H Lab Interpretation (test cod e = 65114-4) Abnormal [facility] GLUCOSE (AUTOMATED)2022-05-15 13:49:03* Test Item Value Reference Range Interpretation Comme [facility] POCT GLU (test code = 1150817894) 236 mg/dL 70-110 H Lab Interpretation (test cod e = 03281-4) Abnormal [facility] METABOLIC PANEL (NA, K, CL, CO2, GLUCOSE, BUN, CREATININE, CA)2022-05-15 12:06:27* Test Item Value Reference Range Interpretation Comme nts NA (test code = 8590923213) 133 mmol/L 135-145 L K (test code = 3098066338) 4.1 mmol/L 3.5-5.0 CL (test code = 0396539502) 102 mmol/L 98-108 CO2 TOTAL (test code = 6106482241) 25 mmol/L 23-31 AGAP (test code = 7310520257) 2-16 BUN (test code = 8385244156) 46 mg/dL 7-23 H GLUCOSE (test code = 5659473093) 171 mg/dL 70-110 H CREATININE (test code = 9746164033) 1.02 mg/dL 0.60-1.25 CALCIUM (test code = 6969725444) 7.9 mg/dL 8.6-10.6 L eGFR (test code = 1320666440) mL/min/1.73m2 PIPO (test code = PIPO) Association [...] imaging tests). Lab Interpretation (test code = 49736-8) [facility]normal [facility] 12:06:27* Test Item Value Reference Range Interpretation Comme nts MAGNESIUM (test code = 4464042572) 1.7 mg/dL 1.7-2.4 Lab Interpretation (test cod e = 04814-3) Normal [facility] MET[facility]OL[facility] (NA, K, CL, CO2, GLUCOSE, BUN, CREATININE, CA)2022-05-15 12:06:27* Test Item Value Reference Range Interpretation Comme nts NA (test code = 5522965745) 133 mmol/L 135-145 L K (test code = 6821479101) 4.1 mmol/L 3.5-5.0 CL (test code = 0575373239) 102 mmol/L 98-108 CO2 TOTAL (test code = 5726318292) 25 mmol/L 23-31 AGAP (test code = 0165003671) 2-16 BUN (test code = 2528902040) 46 mg/dL 7-23 H GLUCOSE (test code = 4663994871) 171 mg/dL 70-110 H CREATININE (test code = 4346108656) 1.02 mg/dL 0.60-1.25 CALCIUM (test code = 6751129789) 7.9 mg/dL 8.6-10.6 L eGFR (test code = 2074074037) mL/min/1.73m2 PIPO (test code = PIPO) Association [...] imaging tests). Lab Interpretation (test code = 62441-2) [facility]27* Test Item Value Reference Range Interpretation Comme nts MAGNESIUM (test code = 8628833199) 1.7 mg/dL 1.7-2.4 Lab Interpretation (test cod e = 32550-4) Normal [facility] WITHOUT [id number] 11:24:49* Test Item Value Reference Range Interpretation [...] result as normal/abnormal. MPV (test code = 74364-8) 10.0 fL 9.8-13.0 RDW-CV (test code = 788-0) 14.4 % 12.1-15.4 RDW-SD (test code = 68126-9) 46.3 fL 38.5-51.6 NRBC x10^3 (test code = 3389178759) See_Comment [Automated messa ge] The system which generated this result transmitted reference range: 10*3/?L. The reference range was not used to interpret this result as normal/abnormal. NRBC/100 WBC (test code = 8882430103) See_Comment [Automated messa ge] The system which generated this result transmitted reference range: 0.0 - 10.0 /100 WBCs. The reference range was not used to interpret this result as normal/abnormal. IPF % (test code = 5792372468) Lab Interpretation (test code = 64627-5) Abnormal [facility] WITHOUT [id number] 11:24:49* Test Item Value Reference Range Interpretation [...] result as normal/abnormal. MPV (test code = 27444-1) 10.0 fL 9.8-13.0 RDW-CV (test code = 788-0) 14.4 % 12.1-15.4 RDW-SD (test code = 77842-7) 46.3 fL 38.5-51.6 NRBC x10^3 (test code = 0723158971) See_Comment [Automated [employer] ge] The system which generated this result transmitted reference range: 10*3/?L. The reference range was not used to interpret this result as normal/abnormal. NRBC/100 WBC (test code = 4578444234) See_Comment [Automated messa ge] The system which generated this result transmitted reference range: 0.0 - 10.0 /100 WBCs. The reference range was not used to interpret this result as normal/abnormal. IPF % (test code = 5377182664) Lab Interpretation (test code = 30536-7) Abnormal [facility] (Total Cholesterol, Triglycerides, HDL) - Grhmdug7773-22-57 04:46:50* Test Item Value Reference Range Interpretation Comme nts CHOL (test code = 2446970165) 160 mg/dL 120-200 HDL (test code = 6091923161) 33 mg/dL See_Comment L [Automated messa ge] The system which generated this result transmitted reference range: >=40. The reference range was not used to interpret this result as normal/abnormal. HDLC RATIO (test code = 5609604648) See_Comment [Automated messa ge] The system which generated this result transmitted reference range: <=5.0. The reference range was not used to interpret this result as normal/abnormal. TRIG (test code = 8489602300) 215 mg/dL 30-170 H LDL CHOL (test code = 73358-3) 84 mg/dL See_Comment [Automated messa ge] The system which generated this result transmitted reference range: <=160. The reference range was not used to interpret this result as normal/abnormal. VLDL (test code = 7535870508) 43 mg/dL 5-60 Lab Interpretation (test code = 79718-7) Abnormal [facility] (Total Cholesterol, Triglycerides, HDL) - Aewcryw5767-19-04 04:46:50* Test Item Value Reference Range Interpretation Comme nts CHOL (test code = 3225857032) 160 mg/dL 120-200 HDL (test code = 9201224229) 33 mg/dL See_Comment L [Automated messa ge] The system which generated this result transmitted reference range: >=40. The reference range was not used to interpret this result as normal/abnormal. HDLC RATIO (test code = 4308850534) See_Comment [Automated messa ge] The system which generated this result transmitted reference range: <=5.0. The reference range was not used to interpret this result as normal/abnormal. TRIG (test code = 0482268206) 215 mg/dL 30-170 H LDL CHOL (test code = 95882-6) 84 mg/dL See_Comment [Automated messa ge] The system which generated this result transmitted reference range: <=160. The reference range was not used to interpret this result as normal/abnormal. VLDL (test code = 4275895060) 43 mg/dL 5-60 Lab Interpretation (test code = 90329-6) Abnormal [facility] WITHOUT [id number] 04:40:50* Test Item Value Reference Range Interpretation [...] result as normal/abnormal. MPV (test code = 73570-1) 9.9 fL 9.8-13.0 RDW-CV (test code = 788-0) 14.5 % 12.1-15.4 RDW-SD (test code = 38600-5) 47.1 fL 38.5-51.6 NRBC x10^3 (test code = 2550160315) See_Comment [Automated messa ge] The system which generated this result transmitted reference range: 10*3/?L. The reference range was not used to interpret this result as normal/abnormal. NRBC/100 WBC (test code = 9440172534) See_Comment [Automated messa ge] The system which generated this result transmitted reference range: 0.0 - 10.0 /100 WBCs. The reference range was not used to interpret this result as normal/abnormal. IPF % (test code = 9610639214) Lab Interpretation (test code = 40243-0) Abnormal [facility] WITHOUT [id number] 04:40:50* Test Item Value Reference Range Interpretation [...] result as normal/abnormal. MPV (test code = 87652-8) 9.9 fL 9.8-13.0 RDW-CV (test code = 788-0) 14.5 % 12.1-15.4 RDW-SD (test code = 82937-5) 47.1 fL 38.5-51.6 NRBC x10^3 (test code = 5481624997) See_Comment [Automated messa ge] The system which generated this result transmitted reference range: 10*3/?L. The reference range was not used to interpret this result as normal/abnormal. NRBC/100 WBC (test code = 1412873038) See_Comment [Automated messa ge] The system which generated this result transmitted reference range: 0.0 - 10.0 /100 WBCs. The reference range was not used to interpret this result as normal/abnormal. IPF % (test code = 5971400926) Lab Interpretation (test code = 83472-6) Abnormal [facility] WITHOUT [id number] 22:20:51* Test Item Value Reference Range Interpretation [...] result as normal/abnormal. MPV (test code = 45451-4) 9.9 fL 9.8-13.0 RDW-CV (test code = 788-0) 14.5 % 12.1-15.4 RDW-SD (test code = 39849-0) 47.2 fL 38.5-51.6 NRBC x10^3 (test code = 7470773734) See_Comment [Automated messa ge] The system which generated this result transmitted reference range: 10*3/?L. The reference range was not used to interpret this result as normal/abnormal. NRBC/100 WBC (test code = 9345462387) See_Comment [Automated messa ge] The system which generated this result transmitted reference range: 0.0 - 10.0 /100 WBCs. The reference range was not used to interpret this result as normal/abnormal. IPF % (test code = 3394579831) Lab Interpretation (test code = 25323-8) Abnormal [facility] WITHOUT [id number] 22:20:51* Test Item Value Reference Range Interpretation [...] result as normal/abnormal. MPV (test code = 94473-4) 9.9 fL 9.8-13.0 RDW-CV (test code = 788-0) 14.5 % 12.1-15.4 RDW-SD (test code = 38318-3) 47.2 fL 38.5-51.6 NRBC x10^3 (test code = 1976373363) See_Comment [Automated messa ge] The system which generated this result transmitted reference range: 10*3/?L. The reference range was not used to interpret this result as normal/abnormal. NRBC/100 WBC (test code = 5745297406) See_Comment [Automated messa ge] The system which generated this result transmitted reference range: 0.0 - 10.0 /100 WBCs. The reference range was not used to interpret this result as normal/abnormal. IPF % (test code = 0221327056) Lab Interpretation (test code = 46431-4) Abnormal [facility] Confirmation (Lab Only)2022-05-14 21:04:17* Test Item Value Reference Range Interpretation Comme nts ABO & RH (test code = 20) O Positive Performed at [facility] Laboratory [address] Free: [phone] No. [id number] [facility] Confirmation (Lab Only)2022-05-14 21:04:17* Test Item Value Reference Range Interpretation Comme nts ABO & RH (test code = 20) O Positive Performed at [facility] Laboratory [address] Free: [phone] No. [id number] [facility] Screen - ONCE [id number] 19:35:37 * Test Item Value Reference Range Interpretation Comme nts ABO & RH (test code = 20) O POSITIVE Performed at [facility] Laboratory [address] Free: [phone] No. [id number] IAT (test code = 1185) Negative Performed at [address] Free: [phone] No. [id number] [facility] Screen - ONCE [id number] 19:35:37 * Test Item Value Reference Range Interpretation Comme nts ABO & RH (test code = 20) O POSITIVE Performed at [facility] Laboratory Services - [facility] Blood [address] [address]Pegj Free: [phone] No. [id number] IAT (test code = 1185) Negative Performed at [facility] Laboratory Services [facility] Blood [address] [address]Atjj Free: [phone] No. [id number] [facility] GLUCOSE (AUTOMATED)2022-05-14 19:01:40* Test Item Value Reference Range Interpretation Comme nts POCT GLU (test code = 3649591189) 199 mg/dL 70-110 H Lab Interpretation (test cod e = 84407-3) Abnormal [facility] GLUCOSE (AUTOMATED)2022-05-14 19:01:40* Test Item Value Reference Range Interpretation Comme nts POCT GLU (test code = 5499280582) 199 mg/dL 70-110 H Lab Interpretation (test cod e = 21211-7) Abnormal [facility] GLUCOSE (AUTOMATED)2022-05-14 15:51:56* Test Item Value Reference Range Interpretation Comme nts POCT GLU (test code = 4763882363) 243 mg/dL 70-110 H Lab Interpretation (test cod e = 79307-4) Abnormal [facility] GLUCOSE (AUTOMATED)2022-05-14 15:51:56* Test Item Value Reference Range Interpretation Comme nts POCT GLU (test code = 0631674840) 243 mg/dL 70-110 H Lab Interpretation (test cod e = 05144-2) Abnormal [facility] [id number] 20:04:00* Test Item Value Reference Range Interpretation Comme nts GLUCOSE BEDSIDE TESTING (rosario t code = GLUBED) 271 MG/DL 60-99 H GLUCOSE BEDSIDE [id number] 15:55:00* Test Item Value Reference Range Interpretation Comme nts GLUCOSE BEDSIDE TESTING (rosario t code = GLUBED) 241 MG/DL 60-99 H GLUCOSE BEDSIDE [id number] 11:40:00* Test Item Value Reference Range Interpretation Comme nts GLUCOSE BEDSIDE TESTING (rosario t code = GLUBED) 305 MG/DL 60-99 HH GLUCOSE BEDSIDE [id number] 07:51:00* Test Item Value Reference Range Interpretation Comme nts GLUCOSE BEDSIDE TESTING (rosario t code = GLUBED) 202 MG/DL 60-99 H GLUCOSE BEDSIDE [id number] 06:13:00* Test Item Value Reference Range Interpretation Comme nts GLUCOSE BEDSIDE TESTING (rosario t code = GLUBED) 192 MG/DL 60-99 H - MRI BRAIN W/O [id number] 21:11:00 [facility] : 1960 Sex: M Patient Name: KAYLEE LEZAMA Unit No: [id number] EXAMS: CPT CODE: [id number] MRI BRAIN W/O CONTRAST 64489 HISTORY: Left-sided weakness Location: C3 TECHNIQUE: Multiplanar multisequence MR images of the brain were obtained without intravenous contrast. Comparison the prior MRI dated 02/04/2022. FINDINGS: There is no intracranial hemorrhage, mass or mass effect. The ventricular system and sulci are prominent compatible cerebral volume loss.. Multifocal areas of restricted diffusion are demonstrated in right MCA distribution most confluent in the frontal lobe near the vertex with additional areas in deep watershed distribution. Compared to prior examination new areas of infarction are present in posteriorright frontal lobe as well as anterior inferior frontal lobe and deep watershed distribution. Microvascular chronic white matter ischemic changes are noted in the periventricular regions bilaterally.Appropriate flow-voids are present at the skull base. The visualized orbits and sinuses show no significant abnormalities. IMPRESSION: 1. Areas of acute infarction seen on prior study dated 02/04/2022 are again noted with multiple areas of new acute infarction in the right MCA distribution and watershed distribution on the right. 2. No developing intracranial hemorrhage. No hydrocephalus. at 2110 Reported and signed by: Brady Puentes MD CC: Maximilian Sepulveda; Rena Sanchez MD Technologist: Sho Foster(CT)(MRI) Transcrpt Date/Tm/Trnsp: 02/14/2022 (2110) MaribethR.RXC2 Orig Print D/T: S: 02/14/2022 (2113) [facility] NAME: KAYLEE LEZAMA [address] PHYS: [id number] - Rena Sanchez MD [address] [place] [address] : 1960 AGE: 61 SEX: M LOC: Z.SI06 A PHONE #: [phone] EXAM DATE: 02/14/2022 STATUS: ADM IN FAX #: [phone] RADIOLOGY NO: PAGE 1 Signed ReportGLUCOSE BEDSIDE [id number] 19:54:00* Test Item Value Reference Range Interpretation Comme [facility] GLUCOSE BEDSIDE TESTING (rosario t code = GLUBED) 301 MG/DL 60-99 [id number] 17:47:00* Test Item Value Reference Range Interpretation Comme [facility] SURGICAL (test code = SR) RUN DATE: 02/14/22 [facility] PAGE 1 RUN TIME: 1747 Specimen Inquiry RUN USER: INTERFACE JAYESH ENT: KAYLEE LEZAMA LOC: DIANE U #: [id number] AGE/SX: 61/M ROOM: [facility]eliFORMERLY [facility] RE02/03/22REG DR: Maximilian Sepulveda MD : 56 BED: A DIS: STATUS: ADM IN TLOC: SPEC #: [id number]:AVILES:[id number] RECD: 02/11/22 STATUS: MARK ANTHONY REQ #: [id number] ERICA: 02/11/[address]: Kevin Owusu MD ENTERED: 02/11/22 SP TYPE: SURGICAL OTHR DR: No Primary or Family Physician Self Referred Karel Burgess MD, Ryan DO R3 Varun Treviño MD R3 Brady Lerma MD, Venkatara MDORDERED: 56842, 24357, ANATOMIC SPEC, SPECIMEN TRACK COPIES TO: No Primary or Family Physician Self Referred Karel Burgess MD [address] [place] [address] [place] [address] Royce Maguire DO R3 [address] [place] [address] [place] [address] [facility] [place] [address] Varun Treviño MD R3 [address] [place] [address] [place] [address] [facility] [address] [place] [address] [place] [address] [facility] [address] [place] [address] PROCEDURES: 98040 (02/11/22) 24342 (02/14/22-1257) SPECIMEN TRACK (02/11/22) CONTINUED ON NEXT PAGE RUN DATE: 02/14/22 [facility] PAGE 2 RUN TIME: 1747 Specimen Inquiry RUN USER: INTERFACE SPEC #: [id number]:[id number] PATIENT: TEJAKAYLEE #[id number] (Continued) ------- TISSUES: A. PLAQUE ATHEROMATOUS/FIBROUS/FIBROFATTY - RIGHT CAROTID [...] decalcification as A1. Technical component performed at [employer],[id number] , [place] [address] Unless gross only, the diagnosis is based upon microscopic examination.Immunohistochemistry : This test was developed and its performancecharacteristics determined by this laboratory. It has not been approved nordoes it need approval by the [place] FDA. Appropriate positive and negative controlsare reviewed and judged to be acceptable. This laboratory is certified underthe Clinical Laboratory Improvement Amendments (CLIA-88) as qualified toperform high complexity clinical laboratory testing. MICROSCOPIC DESCRIPTION Microscopic examination is performed on all specimens and the findings are incorporatedinto the final diagnosis. Please see diagnosis for the findings. ----- Signed SIGNATURE ON FILE Clark Loera 02/14/22 1747 END OF REPORT GLUCOSE BEDSIDE [id number] 17:04:00* Test Item Value Reference Range Interpretation Comme nts GLUCOSE BEDSIDE TESTING (rosario t code = GLUBED) 175 MG/DL 60-99 H GLUCOSE BEDSIDE [id number] 10:58:00* Test Item Value Reference Range Interpretation Comme nts GLUCOSE BEDSIDE TESTING (rosario t code = GLUBED) 280 MG/DL 60-99 H GLUCOSE BEDSIDE [id number] 08:05:00* Test Item Value Reference Range Interpretation Comme nts GLUCOSE BEDSIDE TESTING (rosario t code = GLUBED) 294 MG/DL 60-99 H GLUCOSE BEDSIDE [id number] 20:16:00* Test Item Value Reference Range Interpretation Comme nts GLUCOSE BEDSIDE TESTING (rosario t code = GLUBED) 291 MG/DL 60-99 H GLUCOSE BEDSIDE [id number] 16:15:00* Test Item Value Reference Range Interpretation Comme nts GLUCOSE BEDSIDE TESTING (rosario t code = GLUBED) 146 MG/DL 60-99 H GLUCOSE BEDSIDE [id number] 16:03:00* Test Item Value Reference Range Interpretation Comme nts GLUCOSE BEDSIDE TESTING (rosario t code = GLUBED) 244 MG/DL 60-99 H - CT HEAD/BRAIN W/O [id number] 10:21:00 [facility] : 1960 Sex: M Patient Name: KAYLEE LEZAMA Unit No: [id number] EXAMS: CPT CODE: [id number] CT HEAD/BRAIN W/O CONT 62850 EXAM: - CT HEAD/BRAIN W/O CONT Location code:C3 HISTORY: 61 years - old Male with S/P FALL TECHNIQUE: Axial CT images from the skull base to the [...] right occipital lobe as noted on prior MRI No intracranial hemorrhage, mass or mass effect. The ventricular system and sulci are prominent compatible cerebral volume loss. There is mild diminished attenuation involving the periventricular and subcortical white matter compatible with mild microvascular chronic [...] Reported and signed by: Brady Puentes MD [facility] NAME: KAYLEE LEZAMA PHYS: [place] [address] : 1960 AGE: 61 SEX: M LOC: Z.SI06 A PHONE #: [phone] EXAM DATE: 02/13/2022 STATUS: ADM IN FAX #: [phone] RAD #: D/C DT PAGE 1 Signed Report (CONTINUED) Patient Name: KAYLEE LEZAMA Unit No: [id number] EXAMS: CPT CODE: [id number] CT HEAD/BRAIN W/O [id number] (Continued) CC: Kevin Owusu Technologist: Barrington Schneider (RT) (R) CTDI: DLP: Trnscrpt: 02/13/2022 (1021) t.SDR.RXC2 [facility] NAME: KAYLEE LEZAMA PHYS: [place] [address] : 1960 AGE: 61 SEX: M LOC: Z.SI06 A PHONE #: [phone] EXAM DATE: 02/13/2022 STATUS: ADM IN FAX #: [phone] RAD #: D/C DT PAGE 2 Signed Report Patient Name: KAYLEE LEZAMA Unit No: [id number] EXAMS: CPT CODE: [id number] CT HEAD/BRAIN W/O CONT 78512 (Continued) Orig Print D/T: S: 02/13/2022 (1024) [facility] NAME: KAYLEE LEZAMA PHYS: Brady Mendoza MD [place] [id number] : 1960 AGE: 61 SEX: M LOC: Z.SI06 A PHONE #: [phone] EXAM DATE: 02/13/2022 STATUS: ADM IN FAX #: [phone] RAD #: D/C DT PAGE 3 Signed ReportBASIC METABOLIC [id number] 08:37:00* Test Item Value Reference Range Interpretation Comme nts SODIUM (test code = NA) 133 MMOL/L 137-145 L POTASSIUM (test code = K) 4.4 MMOL/L 3.5-5.1 N CHLORIDE (test code = CL) 99 MMOL/L 98-107 N CARBON DIOXIDE (test code = CO2) 26 MMOL/L 22-30 N GLUCOSE (test code = GLU) 205 MG/DL 74-106 H BLOOD UREA NITROGEN (test code = BUN) 17 MG/DL 9-20 N GLOMERULAR FILTRATION RATE (test code = GFR) > 60 Reporting units: ml/min/1.73 m2 (Modified MDRD Formula)Reference Range: > or = 60 ml/min/1.73 m2 CREATININE (test code = CREAT) 1.00 MG/DL 0.66-1.25 N CALCIUM (test code = CA) 8.8 MG/DL 8.4-10.2 N "TO BE COLLECTED BY NURSE"NOTIFIED RN: Yayo 02/13/22 AT 0806 BY Nikko Freitas CBC W/AUTO [id number] 08:23:00* Test Item Value Reference Range Interpretation Comme nts WHITE BLOOD CELL (test code = WBC) 12.1 K/MM3 3.8-9.8 H RED BLOOD CELL (test code = RBC) 3.46 M/MM3 3.95-5.67 L HEMOGLOBIN (test code = HGB) 10.5 G/DL 12.4-16.7 L HEMATOCRIT (test code = HCT) 32.8 % 35.9-49.5 L MEAN CELL VOLUME (test code = MCV) 95 fL 81.7-96.1 N MEAN CELL HGB (test code = MCH) 30.3 pg 27.6-33.2 N MEAN CELL HGB CONCETRATION (test code = MCHC) 32.0 % 32.9-35.5 L RED CELL DISTRIBUTION WIDTH (test code = RDW) 13.3 % 12.1-15.2 N PLATELET COUNT (test code = PLT) 344 K/MM3 129-368 N MEAN PLATELET VOLUME (test c ode = MPV) 9.5 fl 7.4-10.4 N NEUTROPHIL % (test code = NT%) 76.6 % 43-75 H IMMATURE GRANULOCYTE % (test code = IG%) 0.5 % 0.0-2.0 N LYMPHOCYTE % (test code = LY%) 11.9 % 14-44 L MONOCYTE % (test code = MO%) 8.5 % 4-13 N EOSINOPHIL % (test code = EO%) 1.7 % 0-6 N BASOPHIL % (test code = BA%) 0.8 % 0-2 N NUCLEATED RBC % (test code = NRBC%) 0.0 % 0-1.0 N NEUTROPHIL # (test code = NT#) 9.26 K/mm3 2.0-7.6 H IMMATURE GRANULOCYTE # (test code = IG#) 0.06 x10 3/uL 0-0.03 H LYMPHOCYTE # (test code = LY#) 1.44 K/mm3 1.0-3.8 N MONOCYTE # (test code = MO#) 1.03 K/mm3 0.1-0.8 H EOSINOPHIL # (test code = EO#) 0.20 K/mm3 0.0-0.2 N BASOPHIL # (test code = BA#) 0.10 K/mm3 0.0-0.2 N NUCLEATED RBC # (test code = NRBC#) 0.00 K/mm3 0.0-0.1 N "TO BE COLLECTED BY NURSE"NOTIFIED RN: Yayo 02/13/22 AT 0806 BY Nikko Freitas GLUCOSE BEDSIDE [id number] 07:30:00* Test Item Value Reference Range Interpretation Comme nts GLUCOSE BEDSIDE TESTING (rosario t code = GLUBED) 244 MG/DL 60-99 H GLUCOSE BEDSIDE [id number] 20:38:00* Test Item Value Reference Range Interpretation Comme nts GLUCOSE BEDSIDE TESTING (rosario t code = GLUBED) 262 MG/DL 60-99 H GLUCOSE BEDSIDE [id number] 17:18:00* Test Item Value Reference Range Interpretation Comme nts GLUCOSE BEDSIDE TESTING (rosario t code = GLUBED) 194 MG/DL 60-99 H GLUCOSE BEDSIDE [id number] 13:46:00* Test Item Value Reference Range Interpretation Comme nts GLUCOSE BEDSIDE TESTING (rosario t code = GLUBED) 324 MG/DL 60-99 HH - XR CHEST [id number] 08:14:00 [facility] : 1960 Sex: M Patient Name: KAYLEE LEZAMA Unit No: [id number] EXAMS: CPT CODE: [id number] XR CHEST 1V 54240 STUDY: Chest radiograph HISTORY: Line placement COMPARISON: [...] at 0814 Reported and signed by: Brady Wiggins MD CC: Kevin Owusu Technologist: Wilian Moise, RT(R) Transcrpt Date/Tm/Trnsp: 02/12/2022 (0814) [email or web address].[id number] Orig Print D/T: S: 02/12/2022 (0817) [facility] NAME: KAYLEE LEZAMA [id number] PHYS: [place] [address] : 1960 AGE: 61 SEX: M LOC: Z.SI06 A PHONE #: [phone] EXAM DATE: 02/12/2022 STATUS: ADM IN FAX #: [phone] RADIOLOGY NO: PAGE 1 Signed ReportGLUCOSE BEDSIDE [id number] 06:49:00* Test Item Value Reference Range Interpretation Comme nts GLUCOSE BEDSIDE TESTING (rosario t code = GLUBED) 253 MG/DL 60-99 H BASIC METABOLIC [id number] 04:44:00* Test Item Value Reference Range Interpretation Comme nts SODIUM (test code = NA) 131 MMOL/L 137-145 L POTASSIUM (test code = K) 4.3 MMOL/L 3.5-5.1 N CHLORIDE (test code = CL) 101 MMOL/L 98-107 N CARBON DIOXIDE (test code = CO2) 24 MMOL/L 22-30 N ANION GAP (test code = GAP) 10 MMOL/L 14-24 L GLUCOSE (test code = GLU) 238 MG/DL 74-106 H BLOOD UREA NITROGEN (test code = BUN) 14 MG/DL 9-20 N GLOMERULAR FILTRATION RATE (test code = GFR) > 60 Reporting units: ml/min/1.73 m2 (Modified MDRD Formula)Reference Range: > or = 60 ml/min/1.73 m2 CREATININE (test code = CREAT) 0.80 MG/DL 0.66-1.25 N CALCIUM (test code = CA) 8.9 MG/DL 8.4-10.2 N [id number] 04:44:00* Test Item Value Reference Range Interpretation Comme [facility] MAGNESIUM (test code = MAG) 1.6 MG/DL 1.6-2.3 CBC W/AUTO [id number] 04:24:00* Test Item Value Reference Range Interpretation Comme [facility] WHITE BLOOD CELL (test code = WBC) 13.8 K/MM3 3.8-9.8 H RED BLOOD CELL (test code = RBC) 3.68 M/MM3 3.95-5.67 L HEMOGLOBIN (test code = HGB) 11.1 G/DL 12.4-16.7 L HEMATOCRIT (test code = HCT) 33.8 % 35.9-49.5 L MEAN CELL VOLUME (test code = MCV) 92 fL 81.7-96.1 N MEAN CELL HGB (test code = MCH) 30.2 pg 27.6-33.2 N MEAN CELL HGB CONCETRATION (test code = MCHC) 32.8 % 32.9-35.5 L RED CELL DISTRIBUTION WIDTH (test code = RDW) 12.8 % 12.1-15.2 N PLATELET COUNT (test code = PLT) 337 K/MM3 129-368 N MEAN PLATELET VOLUME (test c ode = MPV) 9.3 fl 7.4-10.4 N NEUTROPHIL % (test code = NT%) 82.3 % 43-75 H IMMATURE GRANULOCYTE % (test code = IG%) 0.4 % 0.0-2.0 N LYMPHOCYTE % (test code = LY%) 7.0 % 14-44 L MONOCYTE % (test code = MO%) 9.8 % 4-13 N EOSINOPHIL % (test code = EO%) 0.1 % 0-6 N BASOPHIL % (test code = BA%) 0.4 % 0-2 N NUCLEATED RBC % (test code = NRBC%) 0.0 % 0-1.0 N NEUTROPHIL # (test code = NT#) 11.35 K/mm3 2.0-7.6 H IMMATURE GRANULOCYTE # (test code = IG#) 0.06 x10 3/uL 0-0.03 H LYMPHOCYTE # (test code = LY#) 0.97 K/mm3 1.0-3.8 L MONOCYTE # (test code = MO#) 1.35 K/mm3 0.1-0.8 H EOSINOPHIL # (test code = EO#) 0.02 K/mm3 0.0-0.2 N BASOPHIL # (test code = BA#) 0.05 K/mm3 0.0-0.2 N NUCLEATED RBC # (test code = NRBC#) 0.00 K/mm3 0.0-0.1 N GLUCOSE BEDSIDE [id number] 20:05:00* Test Item Value Reference Range Interpretation Comme [facility] GLUCOSE BEDSIDE TESTING (rosario t code = GLUBED) 246 MG/DL 60-99 H GLUCOSE BEDSIDE [id number] 16:46:00* Test Item Value Reference Range Interpretation Comme nts GLUCOSE BEDSIDE TESTING (rosario t code = GLUBED) 268 MG/DL 60-99 H BASIC METABOLIC [id number] 14:35:00* Test Item Value Reference Range Interpretation Comme nts SODIUM (test code = NA) 135 MMOL/L 137-145 L POTASSIUM (test code = K) 4.5 MMOL/L 3.5-5.1 N CHLORIDE (test code = CL) 104 MMOL/L 98-107 N CARBON DIOXIDE (test code = CO2) 22 MMOL/L 22-30 ANION GAP (test code = GAP) 14 MMOL/L 14-24 N GLUCOSE (test code = GLU) 232 MG/DL 74-106 H BLOOD UREA NITROGEN (test code = BUN) 16 MG/DL 9-20 N GLOMERULAR FILTRATION RATE (test code = GFR) > 60 Reporting units: ml/min/1.73 m2 (Modified MDRD Formula)Reference Range: > or = 60 ml/min/1.73 m2 CREATININE (test code = CREAT) 0.90 MG/DL 0.66-1.25 CALCIUM (test code = CA) 8.9 MG/DL 8.4-10.2 N [id number] 14:35:00* Test Item Value Reference Range Interpretation Comme nts MAGNESIUM (test code = MAG) 1.3 MG/DL 1.6-2.3 L CBC W/AUTO [id number] 13:52:00* Test Item Value Reference Range Interpretation Comme nts WHITE BLOOD CELL (test code = WBC) 12.8 K/MM3 3.8-9.8 H RED BLOOD CELL (test code = RBC) 3.75 M/MM3 3.95-5.67 L HEMOGLOBIN (test code = HGB) 11.4 G/DL 12.4-16.7 L HEMATOCRIT (test code = HCT) 34.7 % 35.9-49.5 L MEAN CELL VOLUME (test code = MCV) 93 fL 81.7-96.1 N MEAN CELL HGB (test code = MCH) 30.4 pg 27.6-33.2 N MEAN CELL HGB CONCETRATION (test code = MCHC) 32.9 % 32.9-35.5 N RED CELL DISTRIBUTION WIDTH (test code = RDW) 12.9 % 12.1-15.2 N PLATELET COUNT (test code = PLT) 337 K/MM3 129-368 N MEAN PLATELET VOLUME (test c ode = MPV) 9.4 fl 7.4-10.4 N NEUTROPHIL % (test code = NT%) 89.0 % 43-75 H IMMATURE GRANULOCYTE % (test code = IG%) 0.9 % 0.0-2.0 N LYMPHOCYTE % (test code = LY%) 5.2 % 14-44 L MONOCYTE % (test code = MO%) 3.7 % 4-13 L EOSINOPHIL % (test code = EO%) 0.7 % 0-6 N BASOPHIL % (test code = BA%) 0.5 % 0-2 N NUCLEATED RBC % (test code = NRBC%) 0.0 % 0-1.0 N NEUTROPHIL # (test code = NT#) 11.39 K/mm3 2.0-7.6 H IMMATURE GRANULOCYTE # (test code = IG#) 0.12 x10 3/uL 0-0.03 H LYMPHOCYTE # (test code = LY#) 0.67 K/mm3 1.0-3.8 L MONOCYTE # (test code = MO#) 0.48 K/mm3 0.1-0.8 N EOSINOPHIL # (test code = EO#) 0.09 K/mm3 0.0-0.2 N BASOPHIL # (test code = BA#) 0.07 K/mm3 0.0-0.2 N NUCLEATED RBC # (test code = NRBC#) 0.00 K/mm3 0.0-0.1 N ARTERIAL BLOOD [id number] 13:47:00* Test Item Value Reference Range Interpretation Comme nts ARTERIAL BLOOD GAS PH (test code = PHA) 7.34 mmHg 7.35-7.45 L ARTERIAL BLOOD GAS PCO2 (test code = PCO2A) 41.9 mmHg 35.0-45.0 N ARTERIAL BLOOD GAS PO2 (test code = PO2A) 93.2 mmol/L 80.0-100.0 N BICARBONATE TOTAL HCO3 (test code = HCO3) 22.2 mmol/L 20.0-26.0 N BASE EXCESS (test code = DG) -3.4 mmol/L -3.0-3.0 L ABG O2 SATURATION (test code = SATA) 96.7 % 95.0-100.0 N ABG DELIVERY (test code = AZIZA) N/C ABG TEMPERATURE (test code = TEMPA) 37.0 C See_Comment [Automated [employer] ge] The system which generated this result transmitted reference range: 37. The reference range was not used to interpret this result as normal/abnormal. ABG SITE (test code = SITEA) AL ALLENS TEST (test code = ALLENS) NA CHECK FIO2 (test code = COHBGFFIO2) 44 % - XR CHEST [id number] 12:55:00 [facility] : 1960 Sex: M Patient Name: KAYLEE LEZAMA Unit No: [id number] EXAMS: CPT CODE: [id number] XR CHEST 1V 75115 EXAM: - XR CHEST 1V CLINICAL HISTORY: [...] and osseous structures is grossly unremarkable. IMPRESSION: Left-sided central line tip terminates at the level of the proximal SVC. Signs of mild vascular congestion and trace central pulmonary edema. at 1255 Reported and signed by: Alejo Ramirez MD CC: Kevin Owusu Technologist: Preethi Clark (RT)(R) Transcrpt Date/Tm/Trnsp: 02/11/2022 (4898) [email or web address].[id number] Orig Print D/T: S: 02/11/2022 (7150) [facility] NAME: KAYLEE LEZAMA [address] PHYS: [place] [address] : 1960 AGE: 61 SEX: M LOC: Z.SI06A PHONE #: [phone] EXAM DATE: 02/11/2022 STATUS: ADM IN FAX #: [phone] RADIOLOGY NO: PAGE1 Signed ReportGLUCOSE BEDSIDE [id number] 07:34:00* Test Item Value Reference Range Interpretation Comme nts GLUCOSE BEDSIDE TESTING (rosario t code = GLUBED) 173 MG/DL 60-99 H GLUCOSE BEDSIDE [id number] 20:04:00* Test Item Value Reference Range Interpretation Comme nts GLUCOSE BEDSIDE TESTING (test code = GLUBED) 264 MG/DL 60-99 H Notified Nu rse~ GLUCOSE BEDSIDE [id number] 16:26:00* Test Item Value Reference Range Interpretation Comme nts GLUCOSE BEDSIDE TESTING (rosario t code = GLUBED) 225 MG/DL 60-99 H BASIC METABOLIC [id number] 16:11:00* Test Item Value Reference Range Interpretation Comme nts SODIUM (test code = NA) 133 MMOL/L 137-145 L POTASSIUM (test code = K) 4.6 MMOL/L 3.5-5.1 N CHLORIDE (test code = CL) 100 MMOL/L 98-107 N CARBON DIOXIDE (test code = CO2) 25 MMOL/L 22-30 N GLUCOSE (test code = GLU) 242 MG/DL 74-106 H BLOOD UREA NITROGEN (test code = BUN) 24 MG/DL 9-20 H GLOMERULAR FILTRATION RATE (test code = GFR) 51 Reporting units: ml/min/1.73 m2 (Modified MDRD Formula)Reference Range: > or = 60 ml/min/1.73 m2 CREATININE (test code = CREAT) 1.40 MG/DL 0.66-1.25 H CALCIUM (test code = CA) 8.9 MG/DL 8.4-10.2 N PROTHROMBIN [id number] 16:07:00* Test Item Value Reference Range Interpretation Comme [facility] PROTHROMBIN TIME PATIENT (test code = PTP) 11.0 SECONDS 9.4-12.7 INTERNATIONAL NORMAL RATIO (test code = INR) 1.0 0.86-1.14 N The INR is to be used only for monitoring oral anticoagulanttherap y. INDICATION INR VALUE -------1. Prophylaxis, deep venous thrombosis, including high risk surgery. 2.0 - 3.0 2. Prophylaxis, deep venous thrombosis, hip surgery, treatment for deep venous thrombosis or pulmonary prevention of systemic embolism in patients with valvular heart disease, atrial fibrillation, tissue heart valve, or acute myocardial infarction. 2.0 - 3.0 3. Mechanical prosthesis heart valves, recurrent systemic embolism. 3.0 - 4.5 PTT [id number] 16:07:00* Test Item Value Reference Range Interpretation Comme nts PTT ACTIVATED (test code = APTT) 37.3 SECONDS 26.2-35.4 H CBC W/AUTO [id number] 15:47:00* Test Item Value Reference Range Interpretation Comme nts WHITE BLOOD CELL (test code = WBC) 9.2 K/MM3 3.8-9.8 N RED BLOOD CELL (test code = RBC) 3.99 M/MM3 3.95-5.67 N HEMOGLOBIN (test code = HGB) 12.1 G/DL 12.4-16.7 L HEMATOCRIT (test code = HCT) 37.4 % 35.9-49.5 N MEAN CELL VOLUME (test code = MCV) 94 fL 81.7-96.1 N MEAN CELL HGB (test code = MCH) 30.3 pg 27.6-33.2 N MEAN CELL HGB CONCETRATION (test code = MCHC) 32.4 % 32.9-35.5 L RED CELL DISTRIBUTION WIDTH (test code = RDW) 12.7 % 12.1-15.2 N PLATELET COUNT (test code = PLT) 339 K/MM3 129-368 N MEAN PLATELET VOLUME (test c ode = MPV) 9.6 fl 7.4-10.4 N NEUTROPHIL % (test code = NT%) 73.1 % 43-75 N IMMATURE GRANULOCYTE % (test code = IG%) 0.3 % 0.0-2.0 N LYMPHOCYTE % (test code = LY%) 12.2 % 14-44 L MONOCYTE % (test code = MO%) 11.8 % 4-13 N EOSINOPHIL % (test code = EO%) 1.8 % 0-6 N BASOPHIL % (test code = BA%) 0.8 % 0-2 N NUCLEATED RBC % (test code = NRBC%) 0.0 % 0-1.0 N NEUTROPHIL # (test code = NT#) 6.72 K/mm3 2.0-7.6 N IMMATURE GRANULOCYTE # (test code = IG#) 0.03 x10 3/uL 0-0.03 N LYMPHOCYTE # (test code = LY#) 1.12 K/mm3 1.0-3.8 N MONOCYTE # (test code = MO#) 1.08 K/mm3 0.1-0.8 H EOSINOPHIL # (test code = EO#) 0.17 K/mm3 0.0-0.2 N BASOPHIL # (test code = BA#) 0.07 K/mm3 0.0-0.2 N NUCLEATED RBC # (test code = NRBC#) 0.00 K/mm3 0.0-0.1 N - XR CHEST [id number] 14:34:00 [facility] : 1960 Sex: M Patient Name: KAYLEE LEZAMA Unit No: [id number] EXAMS: CPT CODE: [id number] XR CHEST 1V 79750 EXAM: CHEST ONEVIEW INDICATION: Vascular Bypass Preop LOCATION: COMPARISON: February 03, 2022 TECHNIQUE: AP view of the chest FINDINGS: The heart size is normal. The lungs are clear bilaterally. The pulmonary vasculature is normal. No pneumothorax or pleural effusion is identified. The osseous structures are duong l. IMPRESSION: No acute cardiopulmonary process. at 1434 Reported and signed by: Liza Elise MD CC: Kevin Owusu; Dang LY Technologist: Preethi Clark (RT)(R) Transcrpt Date/Tm/Trnsp: 02/10/2022 (8974) 16 Orig Print D/T: S: 02/10/2022 (1438) [facility] NAME: KAYLEE LEZAMA [address] PHYS: [place] [address] : 1960 AGE: 61 SEX: M LOC: [id number].619 A PHONE #: [phone] EXAM DATE: 02/10/2022 STATUS: ADM IN FAX #: [phone] RADIOLOGY NO: PAGE 1 Signed ReportGLUCOSE BEDSIDE [id number] 13:40:00* Test Item Value Reference Range Interpretation Comme nts GLUCOSE BEDSIDE TESTING (rosario t code = GLUBED) 249 MG/DL 60-99 H GLUCOSE BEDSIDE [id number] 08:37:00* Test Item Value Reference Range Interpretation Comme nts GLUCOSE BEDSIDE TESTING (test code = GLUBED) 253 MG/DL 60-99 H Notified Nu rse~ GLUCOSE BEDSIDE [id number] 20:16:00* Test Item Value Reference Range Interpretation Comme nts GLUCOSE BEDSIDE TESTING (rosario t code = GLUBED) 220 MG/DL 60-99 H GLUCOSE BEDSIDE [id number] 17:43:00* Test Item Value Reference Range Interpretation Comme nts GLUCOSE BEDSIDE TESTING (rosario t code = GLUBED) 254 MG/DL 60-99 H GLUCOSE BEDSIDE [id number] 12:58:00* Test Item Value Reference Range Interpretation Comme nts GLUCOSE BEDSIDE TESTING (rosario t code = GLUBED) 276 MG/DL 60-99 H GLUCOSE BEDSIDE [id number] 07:28:00* Test Item Value Reference Range Interpretation Comme nts GLUCOSE BEDSIDE TESTING (rosario t code = GLUBED) 160 MG/DL 60-99 H GLUCOSE BEDSIDE [id number] 20:25:00* Test Item Value Reference Range Interpretation Comme nts GLUCOSE BEDSIDE TESTING (rosario t code = GLUBED) 227 MG/DL 60-99 H GLUCOSE BEDSIDE [id number] 17:11:00* Test Item Value Reference Range Interpretation Comme nts GLUCOSE BEDSIDE TESTING (rosario t code = GLUBED) 276 MG/DL 60-99 H GLUCOSE BEDSIDE [id number] 12:16:00* Test Item Value Reference Range Interpretation Comme nts GLUCOSE BEDSIDE TESTING (rosario t code = GLUBED) 299 MG/DL 60-99 H GLUCOSE BEDSIDE [id number] 08:51:00* Test Item Value Reference Range Interpretation Comme nts GLUCOSE BEDSIDE TESTING (rosario t code = GLUBED) 167 MG/DL 60-99 H CBC W/AUTO [id number] 06:02:00* Test Item Value Reference Range Interpretation Comme nts WHITE BLOOD CELL (test code = WBC) 9.8 K/MM3 3.8-9.8 N RED BLOOD CELL (test code = RBC) 4.03 M/MM3 3.95-5.67 N HEMOGLOBIN (test code = HGB) 12.2 G/DL 12.4-16.7 L HEMATOCRIT (test code = HCT) 37.4 % 35.9-49.5 N MEAN CELL VOLUME (test code = MCV) 93 fL 81.7-96.1 N MEAN CELL HGB (test code = MCH) 30.3 pg 27.6-33.2 N MEAN CELL HGB CONCETRATION (test code = MCHC) 32.6 % 32.9-35.5 L RED CELL DISTRIBUTION WIDTH (test code = RDW) 12.8 % 12.1-15.2 N PLATELET COUNT (test code = PLT) 312 K/MM3 129-368 N MEAN PLATELET VOLUME (test c ode = MPV) 9.5 fl 7.4-10.4 N NEUTROPHIL % (test code = NT%) 66.8 % 43-75 N IMMATURE GRANULOCYTE % (test code = IG%) 0.5 % 0.0-2.0 N LYMPHOCYTE % (test code = LY%) 15.0 % 14-44 N MONOCYTE % (test code = MO%) 14.6 % 4-13 H EOSINOPHIL % (test code = EO%) 2.2 % 0-6 N BASOPHIL % (test code = BA%) 0.9 % 0-2 N NUCLEATED RBC % (test code = NRBC%) 0.0 % 0-1.0 N NEUTROPHIL # (test code = NT#) 6.52 K/mm3 2.0-7.6 N IMMATURE GRANULOCYTE # (test code = IG#) 0.05 x10 3/uL 0-0.03 H LYMPHOCYTE # (test code = LY#) 1.46 K/mm3 1.0-3.8 N MONOCYTE # (test code = MO#) 1.42 K/mm3 0.1-0.8 H EOSINOPHIL # (test code = EO#) 0.21 K/mm3 0.0-0.2 H BASOPHIL # (test code = BA#) 0.09 K/mm3 0.0-0.2 N NUCLEATED RBC # (test code = NRBC#) 0.00 K/mm3 0.0-0.1 N BASIC METABOLIC [id number] 05:54:00* Test Item Value Reference Range Interpretation Comme nts SODIUM (test code = NA) 132 MMOL/L 137-145 L POTASSIUM (test code = K) 3.7 MMOL/L 3.5-5.1 N CHLORIDE (test code = CL) 101 MMOL/L 98-107 N CARBON DIOXIDE (test code = CO2) 24 MMOL/L 22-30 N GLUCOSE (test code = GLU) 152 MG/DL 74-106 H BLOOD UREA NITROGEN (test code = BUN) 23 MG/DL 9-20 H GLOMERULAR FILTRATION RATE (test code = GFR) 56 Reporting units: ml/min/1.73 m2 (Modified MDRD Formula)Reference Range: > or = 60 ml/min/1.73 m2 CREATININE (test code = CREAT) 1.30 MG/DL 0.66-1.25 H CALCIUM (test code = CA) 8.3 MG/DL 8.4-10.2 L GLUCOSE BEDSIDE [id number] 22:29:00* Test Item Value Reference Range Interpretation Comme nts GLUCOSE BEDSIDE TESTING (rosario t code = GLUBED) 266 MG/DL 60-99 H GLUCOSE BEDSIDE [id number] 22:17:00* Test Item Value Reference Range Interpretation Comme nts GLUCOSE BEDSIDE TESTING (rosario t code = GLUBED) 280 MG/DL 60-99 H GLUCOSE BEDSIDE [id number] 16:52:00* Test Item Value Reference Range Interpretation Comme nts GLUCOSE BEDSIDE TESTING (rosario t code = GLUBED) 229 MG/DL 60-99 H - XR TIBIA/FIBULA 2 V [id number] 13:44:00 [facility] : 1960 Sex: M Patient Name: KAYLEE LEZAMA Unit No: [id number] EXAMS: CPT CODE: [id number] XR TIBIA/FIBULA 2 [place] LT [address] CLINICAL INFORMATION: Leg wound anterior tibia. Dictation location: J9 COMPARISON: No prior. FINDINGS: Lateral views show surgical clips in the soft tissues of the distal femur. No fracture, dislocation,subluxation or destructive lesion is identified. No cortical or periosteal reaction is seen. No radiopaque foreign body is otherwise identified. As demonstrated in the ankle joints appear unremarkable. IMPRESSION: No acute finding. No evidence of periosteal reaction. at 1344 Reported and signed by: Marcio Malcolm M.D. CC:Royce Owusu Technologist: Jonas Mayberry RT Transcrpt Date/Tm/Trnsp: 02/07/2022 (1344) Kelly Orig Print D/T: S: 02/07/2022 (6247) [facility] NAME: KAYLEE LEZAMA [address] PHYS:Royce Hoyos DO [address] [address] : 1960 AGE: 61 SEX: M LOC:Z.619 A PHONE #: [phone] EXAM DATE: 02/07/2022 STATUS: ADM IN FAX #: [phone] RADIOLOGY NO: PAGE 1 Signed Report UR SODIUM [id number] 12:32:00* Test Item Value Reference Range Interpretation Comme nts UR SODIUM RANDOM (test code = REJI) 30 MMOL/L 27-287 N UR OSMOLALITY [id number] 12:32:00* Test Item Value Reference Range Interpretation Comme nts UR OSMOLALITY RANDOM (test c ode = OSMOU) 311.5 MOS/KG 300-1200 N GLUCOSE BEDSIDE [id number] 12:10:00* Test Item Value Reference Range Interpretation Comme nts GLUCOSE BEDSIDE TESTING (rosario t code = GLUBED) 235 MG/DL 60-99 H DRUGS OF ABUSE SCREEN [id number] 11:09:00* Test Item Value Reference Range Interpretation Comme nts UR COCAINE (test code = COCAU) NEGATIVE NEGATIVE Cut off Value: 3 00 ng/mL UR CANNABINOIDS (THC) (test code = CANU) NEGATIVE NEGATIVE Cut off Value : 50 ng/mL UR AMPHETAMINE (test code = AMPHU) NEGATIVE NEGATIVE Cut off Value: 1 000 ng/mL UR BARBITURATE QUAL (test code = BARBQLU) NEGATIVE NEGATIVE Cut off Value: 2 00 ng/mL UR BENZODIAZEPINE (test code = BENZU) NEGATIVE NEGATIVE Cut off Value: 2 00 ng/mL UR OPIATES QUAL (test code = OPIAQLU) NEGATIVE NEGATIVE Cut off Value: 3 00 ng/mL UR PHENCYCLIDINE (PCP) (test code = PHENCU) NEGATIVE NEGATIVE Cut off Nieves ue: 25 ng/mL URINALYSIS [id number] 10:39:00* Test Item Value Reference Range Interpretation Comme nts UA COLOR (test code = COLU) YELLOW YELLOW UA APPEARANCE (test code = APPU) SLIGHT CLOUDY CLEAR UA GLUCOSE DIPSTICK (test code = DGLUU) 50 MG/DL NORMAL A UA BILIRUBIN DIPSTICK (test code = BILU) NEGATIVE MG/DL NEGATIVE UA KETONE DIPSTICK (test code = KETU) NEGATIVE MG/DL NEGATIVE UA SPECIFIC GRAVITY (test code = SGU) 1.015 1.003-1.030 N UA BLOOD DIPSTICK (test code = DARIN) 250 Pradeep/mm3 NEGATIVE A UA PH DIPSTICK (test code = MARTIN) 6.0 5.0-9.0 N UA PROTEIN DIPSTICK (test code = PROU) 500 MG/DL NEGATIVE A UA UROBILINIOGEN DIPSTICK (test code = URO) NORMAL MG/DL NORMAL UA NITRITE DIPSTICK (test code = MATTHEW) NEGATIVE NEGATIVE UA LEUKOCYTE ESTERASE DIPSTICK (test code = LEUU) 500 /mm3 NEGATIVE A UA CULTURE NEEDED? (test code = UACULT) YES,WBC>10 & EPI<25 Criteria Culture Chk SOURCE OF URINE: CLEAN CATCHUA [id number] 10:39:00* Test Item Value Reference Range Interpretation Comme nts UA RBC (test code = RBCU) 5-10 RBC/HPF 0-3 A UA WBC (test code = XWBCU) >100 WBC/HPF 0-5 A UA EPITHELIAL CELLS (test co de = EPIU) RARE EPI/HPF FEW UA BACTERIA (test code = XBACU) FEW NONE UA YEAST (test code = YEASTU) MANY #/HPF NONE A SOURCE OF URINE: CLEAN CATCHGLUCOSE BEDSIDE [id number] 08:28:00* Test Item Value Reference Range Interpretation Comme nts GLUCOSE BEDSIDE TESTING (rosario t code = GLUBED) 174 MG/DL 60-99 H BASIC METABOLIC [id number] 06:38:00* Test Item Value Reference Range Interpretation Comme nts SODIUM (test code = NA) 131 MMOL/L 137-145 L POTASSIUM (test code = K) 3.8 MMOL/L 3.5-5.1 N CHLORIDE (test code = CL) 100 MMOL/L 98-107 N CARBON DIOXIDE (test code = CO2) 25 MMOL/L 22-30 N ANION GAP (test code = GAP) 10 MMOL/L 14-24 L GLUCOSE (test code = GLU) 173 MG/DL 74-106 H BLOOD UREA NITROGEN (test code = BUN) 23 MG/DL 9-20 H GLOMERULAR FILTRATION RATE (test code = GFR) 56 Reporting units: ml/min/1.73 m2 (Modified MDRD Formula)Reference Range: > or = 60 ml/min/1.73 m2 CREATININE (test code = CREAT) 1.30 MG/DL 0.66-1.25 H CALCIUM (test code = CA) 8.8 MG/DL 8.4-10.2 N GLUCOSE BEDSIDE [id number] 21:32:00* Test Item Value Reference Range Interpretation Comme nts GLUCOSE BEDSIDE TESTING (rosario t code = GLUBED) 255 MG/DL 60-99 H GLUCOSE BEDSIDE [id number] 16:27:00* Test Item Value Reference Range Interpretation Comme nts GLUCOSE BEDSIDE TESTING (rosario t code = GLUBED) 280 MG/DL 60-99 H GLUCOSE BEDSIDE [id number] 11:52:00* Test Item Value Reference Range Interpretation Comme nts GLUCOSE BEDSIDE TESTING (rosario t code = GLUBED) 256 MG/DL 60-99 H GLUCOSE BEDSIDE [id number] 07:29:00* Test Item Value Reference Range Interpretation Comme nts GLUCOSE BEDSIDE TESTING (test code = GLUBED) 223 MG/DL 60-99 H Notified Nu rse~ GLUCOSE BEDSIDE [id number] 01:37:00* Test Item Value Reference Range Interpretation Comme nts GLUCOSE BEDSIDE TESTING (rosario t code = GLUBED) 261 MG/DL 60-99 H GLUCOSE BEDSIDE [id number] 19:36:00* Test Item Value Reference Range Interpretation Comme nts GLUCOSE BEDSIDE TESTING (rosario t code = GLUBED) 283 MG/DL 60-99 H GLUCOSE BEDSIDE [id number] 16:30:00* Test Item Value Reference Range Interpretation Comme nts GLUCOSE BEDSIDE TESTING (rosario t code = GLUBED) 202 MG/DL 60-99 H GLUCOSE BEDSIDE [id number] 07:43:00* Test Item Value Reference Range Interpretation Comme nts GLUCOSE BEDSIDE TESTING (rosario t code = GLUBED) 171 MG/DL 60-99 H GLUCOSE BEDSIDE [id number] 19:44:00* Test Item Value Reference Range Interpretation Comme nts GLUCOSE BEDSIDE TESTING (test code = GLUBED) 276 MG/DL 60-99 H Notified Nu rse~ - CT ANGIO [id number] 18:26:00 [facility] : 1960 Sex: M Patient Name: KAYELE LEZAMA Unit No: [id number] EXAMS: CPT CODE: [id number] CT ANGIO HEAD [address]0495 EXAM: - CT ANGIO HEAD, - CT ANGIO NECK W WO CONT CLINICAL INDICATION: head and neck COMPARISON: None available. LOCATION: H65 TECHNIQUE: Noncontrast axial CT images of the head were also performed. Subsequently, axial CT angiographic images of the upper chest, neck, and head were obtained, from which three-dimen sional reconstructed images were created. Additional imaging series were created on an independent workstation using maximum intensity projection and volume rendered technique. This examination was performed according to our departmental dose optimization program, [...] luminal stenosis. The external carotid branches are unremarkable.The internal carotid artery is well opacified throughout [...] stenosis (series 5 image 86). Intracranial vasculature [facility] NAME: KAYLEE LEZAMA [id number] PHYS: [place] [address] : 1960 AGE: 61 SEX: M LOC: Z.619 A PHONE #: [phone] EXAM DATE: 02/04/2022 STATUS: ADM IN FAX #: [phone] RAD #: D/C DT PAGE 1 Signed Report (CONTINUED)Patient Name: KAYLEE LEZAMA Unit No: [id number] EXAMS: CPT CODE: [id number] CT ANGIO HEAD [address]1290 (Continued) Right: The internal carotid artery appears patent with severe atherosclerosis of the cavernous segment and suspect underlying stenosis up to at least 75%. 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 The middle cerebral artery [...] There is nonenhancement involving the areas of previously noted hypoattenuation involving the right [...] severe bilateral narrowing C4-C5, severe left narrowing C5-C6,and moderate to severe bilateral narrowing C6-C7. IMPRESSION: [...] of the right occipital lobe. These represent age- indeterminate infarcts and are better assessed on same day MR brain. [facility] NAME: KAYLEE LEZAMA [id number] PHYS: [place] [address] : 1960 AGE: 61 SEX: M LOC: Z.619 A PHONE #: [phone] EXAM DATE: 02/04/2022 STATUS: ADM IN FAX #: [phone] RAD #: D/C DT PAGE 2 Signed Report (CONTINUED) Patient Name: KAYLEE LEZAMA Unit No: [id number] EXAMS: CPT CODE: [id number] CT ANGIO HEAD 44438 (Continued) Findings were communicated to Dr. Chavez by telephone on 02/04/2022 5:46 PM. at 1826 Reported and signed by: Alejo Ramirez MD CC: Technologist: Sharon Lawson (RT); Marisabel Fontaine, CTDI: DLP: Trnscrpt: 02/04/2022 (1825) [email or web address] [facility] NAME: KAYLEE LEZAMA PHYS: [place] [address] : 1960 AGE: 61 SEX: M LOC: Z.619 A PHONE #: [phone] EXAM DATE: 02/04/2022 STATUS: ADM IN FAX #: [phone] RAD #: D/C DT PAGE 3 Signed ReportPatient Name: KAYLEE LEZAMA Unit No: [id number] EXAMS: CPT CODE: [id number] CT ANGIO HEAD 11335 (Continued) Orig Print D/T: S: 02/04/2022 (1828) [facility] NAME: KAYLEE LEZAMA PHYS: Maximilian Robles MD [place] [id number] : 1960 AGE: 61 SEX: M LOC: Z.619 A PHONE #: [phone] EXAM DATE: 02/04/2022 STATUS: ADM IN FAX #: [phone] RAD #: D/C DT PAGE 4 Signed Report- CT ANGIO NECK W WO [id number] 18:26:00 [facility] : 1960 Sex: M Patient Name: KAYLEE LEZAMA Unit No: [id number] EXAMS: CPT CODE: [id number] CT ANGIO NECK W [place] CONT [address] EXAM: - CT ANGIO HEAD, - CT ANGIO NECK [...] and volume rendered technique. This examination was performed according to our departmental dose optimization program, [...] mild atherosclerosis. The carotid bulb demonstrates mild mixedsoft and calcific atherosclerosis without luminal stenosis. The external carotid branches are unremarkable. The internal carotid artery is well opacified throughout the cervical segment. Severe mixedsoft and calcific atherosclerosis noted at the ostium and throughout the proximal cervical segment with multifocal areas of severe stenosis approximately 90% (series 5 images 186, 212). This appears m ostly due to soft atheromatous plaque. Left side: The common carotid artery is patent and nonaneurysmal with moderate atherosclerosis. The carotid bulb demonstrates mild mixed calcific and soft atherosclerosis without evidence of luminal stenosis. The external carotid branches are unremarkable. Theinternal carotid artery is well opacified throughout the cervical segment. Mild ostial and proximalsegment calcifications noted. No significant stenosis by NASCET criteria. Other: The vertebral arteries are codominant. Moderate calcification seen throughout the left vertebral artery including severe calcifications of the V1 segment with suspect underlying severe stenosis (series 5 image 86). Intr acranial vasculature [facility] NAME: KAYLEE LEZAMA [id number] PHYS: [place] [address] : 1960 AGE: 61 SEX: M LOC: Z.619 A PHONE #: [phone] EXAM DATE: 02/04/2022 STATUS: ADM IN FAX #: [phone] RAD #: D/C DT PAGE 1 Signed Report (CONTINUED) Patient Name: KAYLEE LEZAMA Unit No: [id number] EXAMS: CPT CODE: [id number] CT ANGIO NECK W [place] CONT 17473 (Continued) Right: The internal carotid artery appears patent with severe atherosclerosis of the cavernous segment and suspect underlying stenosis up to at least 75%. 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 The middle cerebral artery is well opacified with cont rast extending to the distal branches. The posterior cerebral artery is patent. Left: The internal carotid artery is patent with severe atherosclerosis of the cavernous segment and suspect underlyingstenosis up to at least 75%. The anterior cerebral artery is well opacified. The middle cerebral artery is well opacified with contrast extending to the distal branches. The posterior cerebral arteryis patent. Other: The anterior communicating artery is present in nonaneurysmal. The posterior communicating arteries are not well-visualized. The basilar artery is unremarkable. Brain and orbits: There is nonenhancement involving the areas of previously noted hypoattenuation involving the right mid dle frontal gyrus and focal cortex of the [...] up to at least 90%. 2. Severe atherosclerosisof the bilateral internal carotid artery cavernous segments [...] better assessed on same day MR brain. [facility] NAME: KAYLEE LEZAMA[address] PHYS: [place] [address] : 1960 AGE: 61 SEX: M LOC: Z.829 A PHONE #: [phone] EXAM DATE: 02/04/2022 STATUS: ADM IN FAX #: [phone] RAD #: D/C DT PAGE 2 Signed Report (CONTINUED) Patient Name: KAYLEE LEZAMA Unit No: [id number] EXAMS: CPT CODE: [id number] CT ANGIO NECK W [place] CONT [address] (Continued) Findings were communicated to Dr. Chavez by telephone on 02/04/2022 5:46 PM. at 1826 Reported and signed by: Alejo Ramirez MD CC: aDng LY Technologist: Sharon Lawson (RT); Marisabel Fontaine, CTDI: DLP: Trnscrpt: 02/04/2022 (1826) [email or web address] [facility] NAME: KAYLEE LEZAMA [id number] PHYS: [place] [address] : 1960 AGE: 61 SEX: M LOC: Z.619 A PHONE #: [phone] EXAM DATE: 02/04/2022 STATUS: ADM IN FAX #: [phone] RAD #: D/C DT PAGE 3 Signed Report Patient Name: KAYLEE LEZAAM Unit No: [id number] EXAMS: CPT CODE: [id number] CT ANGIO NECK W [place] CONT [address]66 (Continued) Orig Print D/T: S: 02/04/2022 (1825) [facility] NAME: KAYLEE LEZAMA [id number] PHYS: [place] [address] : 1960 AGE: 61 SEX: M [id number] LOC: Z.619 A PHONE #: [phone] EXAM DATE: 02/04/2022 STATUS: ADM IN FAX #: [phone] RAD #: D/C DT PAGE 4 Signed Report- MRI BRAIN W/O [id number] 17:49:00 [facility] : 1960 Sex: M Patient Name: KAYLEE LEZAMA Unit No: [id number] Report Has Been Amended EXAMS: CPT CODE: [id number] MRI BRAIN W/O CONTRAST 74456 Addendum - 02/04/2022 SIGNED 02/04/2022 ADDENDUM: [id number] MRI/MRIBRAINWO Findings were communicated to Dr. Chavez by telephone on 02/04/2022 5:46 PM. at 3256 Reported and signed by: Alejo Ramirez MD Transcribed: 02/04 (0319) [email or web address] Report EXAM: - MRI BRAIN W/O CONTRAST [...] additional small focal cortical infarct of the right occipital lobe. There is note of minimal extra-axial FLAIR and T1 hyperintensity signal adjacent to the right occipital infarct along the posterior convexity. No gradient blooming is noted, but findings may represent trace subarachnoid hemorrhage. No evidence of midline shift or herniation. No hydrocephalus. The major vessel T2 flow-voids are well-maintained. The globes are intactand symmetric in volume with no evidence of pre or post septal pathology. The paranasal sinuses andmastoid air cells are relatively clear. The sella and pineal regions are grossly unremarkable. 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 Minimal extra-axial FLAIR and S5nffgmstxvgtncb signal seen adjacent to the right occipital infarct, possibly representing trace suba rachnoid hemorrhage. at 1720 Reported and signed by: Alejo Ramirez MD CC: Varun Treviño MD Technologist: Arianne Trevino (RT)(R) Transcrpt Date/Tm/Trnsp: 02/04/2022 (1720) t.[email or web address] Orig Print D/T: S: 02/04/2022 (1723) [facility] NAME: KAYLEE LEZAMA [address] PHYS: [id number] - Varun Treviño MD [address] [place] [address] : 1960 AGE: 61 SEX: M LOC: Zoë Plummer PHONE #: [phone] EXAM DATE: 02/04/2022 STATUS: ADM IN FAX #: [phone] RADIOLOGY NO: PAGE 2 Signed ReportGLUCOSE BEDSIDE [id number] 16:14:00* Test Item Value Reference Range Interpretation Comme nts GLUCOSE BEDSIDE TESTING (rosario t code = GLUBED) 209 MG/DL 60-99 H GLUCOSE BEDSIDE [id number] 11:48:00* Test Item Value Reference Range Interpretation Comme nts GLUCOSE BEDSIDE TESTING (rosario t code = GLUBED) 168 MG/DL 60-99 H GLUCOSE BEDSIDE [id number] 08:12:00* Test Item Value Reference Range Interpretation Comme nts GLUCOSE BEDSIDE TESTING (rosario t code = GLUBED) 147 MG/DL 60-99 H GLUCOSE BEDSIDE [id number] 07:36:00* Test Item Value Reference Range Interpretation Comme nts GLUCOSE BEDSIDE TESTING (rosario t code = GLUBED) 153 MG/DL 60-99 H COMPREHENSIVE METABOLIC [id number] 06:11:00* Test Item Value Reference Range Interpretation Comme nts SODIUM (test code = NA) 135 MMOL/L 137-145 L POTASSIUM (test code = K) 4.3 MMOL/L 3.5-5.1 N CHLORIDE (test code = CL) 103 MMOL/L 98-107 N CARBON DIOXIDE (test code = CO2) 27 MMOL/L 22-30 N ANION GAP (test code = GAP) 9 MMOL/L 14-24 L GLUCOSE (test code = GLU) 189 MG/DL 74-106 H BLOOD UREA NITROGEN (test code = BUN) 27 MG/DL 9-20 H GLOMERULAR FILTRATION RATE (test code = GFR) 56 Reporting unit s: ml/min/1.73 m2 (Modified MDRD Formula)Reference Range: > or = 60 ml/min/1.73 m2 CREATININE (test code = CREAT) 1.30 MG/DL 0.66-1.25 H TOTAL PROTEIN (test code = PROT) 7.1 G/DL 6.2-7.6 N Ortho Clinical D iagnostic has made us aware of newinformation regarding the potential interference ofEltrombopag (a bone marrow stimulant used to treatthrombocytonmenia and aplastic anemia) with specific assayson the Vitros 5600 of which Total Protein is one of thoseassays performed in our lab.Interference testing performed at [facility] determined thatEltrombopag does interfere with Vitros Total Protein asfollowsEltrombopag Interference for Vitros Product Total Protein: Eltrombopag Max Observed Avg. BiasConcentration Concentration Concentration 2.5 mg/dl 6.0 g/dl +0.41 +0.34 3.5 mg/dl 6.0 g/dl +0.50 +0.45 5 mg/dl 6.0 g/dl +0.73 +0.65 2.5 mg/dl 8.0 g/dl +0.44 +0.41 3.5 mg/dl 8.0 g/dl +0.55 +0.52 5 mg/dl 8.0 g/dl +0.86 +0.77 ALBUMIN (test code = ALB) 3.4 G/DL 3.5-5.0 L CALCIUM (test code = CA) 8.6 MG/DL 8.4-10.2 N BILIRUBIN TOTAL (test code = BILT) 0.6 MG/DL 0.2-1.3 N Eltrombopag Inte rference for Vitros Product TBil, BuBc: Assay Eltrombopag Analyte/ Max Observed Avg. Bias Concentration Concentration Concentration TBil 7mg/dl TBil/ 1.2mg/dl +0.23mg.dl +0.20mg/dlBuBc 3.5mg/dl Bu/0.8mg/dl +0.25mg/dl +0.24mg/dlBuBc 7 mg/dl Bu/14.2mg/dl +0.38mg/dl +0.25mg/dlBuBc 5mg/dl Bc/0mg/dl +0.25mg/dl +0.15mg/dlBuBc 3.5mg/dl Bc/2.8mg/dl +0.25mg/dl +0.23mg/dl SGOT/AST (test code = AST) 26 UNITS/L 17-59 N SGPT/ALT (test code = ALT) 22 UNITS/L 0-49 N ALKALINE PHOSPHATASE (test code = ALKP) 113 UNITS/L 38-126 N [id number] 06:11:00* Test Item Value Reference Range Interpretation Comme nts MAGNESIUM (test code = MAG) 1.9 MG/DL 1.6-2.3 N CBC W/AUTO [id number] 06:10:00* Test Item Value Reference Range Interpretation Comme nts WHITE BLOOD CELL (test code = WBC) 8.9 K/MM3 3.8-9.8 N RED BLOOD CELL (test code = RBC) 4.10 M/MM3 3.95-5.67 N HEMOGLOBIN (test code = HGB) 12.5 G/DL 12.4-16.7 N HEMATOCRIT (test code = HCT) 39.2 % 35.9-49.5 N MEAN CELL VOLUME (test code = MCV) 96 fL 81.7-96.1 N MEAN CELL HGB (test code = MCH) 30.5 pg 27.6-33.2 N MEAN CELL HGB CONCETRATION (test code = MCHC) 31.9 % 32.9-35.5 L RED CELL DISTRIBUTION WIDTH (test code = RDW) 13.4 % 12.1-15.2 N PLATELET COUNT (test code = PLT) 270 K/MM3 129-368 N MEAN PLATELET VOLUME (test c ode = MPV) 9.7 fl 7.4-10.4 N NEUTROPHIL % (test code = NT%) 55.3 % 43-75 N IMMATURE GRANULOCYTE % (test code = IG%) 0.6 % 0.0-2.0 N LYMPHOCYTE % (test code = LY%) 22.2 % 14-44 N MONOCYTE % (test code = MO%) 19.2 % 4-13 H EOSINOPHIL % (test code = EO%) 1.8 % 0-6 N BASOPHIL % (test code = BA%) 0.9 % 0-2 N NUCLEATED RBC % (test code = NRBC%) 0.0 % 0-1.0 N NEUTROPHIL # (test code = NT#) 4.94 K/mm3 2.0-7.6 N IMMATURE GRANULOCYTE # (test code = IG#) 0.05 x10 3/uL 0-0.03 H LYMPHOCYTE # (test code = LY#) 1.98 K/mm3 1.0-3.8 N MONOCYTE # (test code = MO#) 1.71 K/mm3 0.1-0.8 H EOSINOPHIL # (test code = EO#) 0.16 K/mm3 0.0-0.2 N BASOPHIL # (test code = BA#) 0.08 K/mm3 0.0-0.2 N NUCLEATED RBC # (test code = NRBC#) 0.00 K/mm3 0.0-0.1 N PROTHROMBIN [id number] 06:09:00* Test Item Value Reference Range Interpretation Comme nts PROTHROMBIN TIME PATIENT (test code = PTP) 14.7 SECONDS 9.4-12.7 H INTERNATIONAL NORMAL RATIO (test code = INR) 1.3 0.86-1.14 H The INR is to be used only for monitoring oral anticoagulanttherap y. INDICATION INR VALUE -------1. Prophylaxis, deep venous thrombosis, including high risk surgery. 2.0 - 3.0 2. Prophylaxis, deep venous thrombosis, hip surgery, treatment for deep venous thrombosis or pulmonary prevention of systemic embolism in patients with valvular heart disease, atrial fibrillation, tissue heart valve, or acute myocardial infarction. 2.0 - 3.0 3. Mechanical prosthesis heart valves, recurrent systemic embolism. 3.0 - 4.5 PTT [id number] 06:09:00* Test Item Value Reference Range Interpretation Comme nts PTT ACTIVATED (test code = APTT) 41.1 SECONDS 26.2-35.4 H GLYCOSYLATED HEMOGLOBIN [id number] 21:29:00* Test Item Value Reference Range Interpretation Comme nts GLYCOSYLATED HEMOGLOBIN (HA1C) (test code = GLYHGB) 11.0 % 4.8-5.9 H Any condition th at shortens erythocyte survival or decreasesmean erythrocyte age (e.g., recovery from acute blood loss,hemolytic anemia) will falsely lower HGBA1c resultsregardless of the method used. HGBA1c results from patientswith HbSS, HbCC, and HbSc must be interpreted with cautiongiven the pathological processes, including anemia,increased red cell turnover, transfusion requirements, thatadversely impact HGBA1c as a marker of long-term glycemiccontrol. Alternative forms of testing such as fructosamineshould be considered for these patients. MEAN BLOOD GLUCOSE (test code = MBG) 269 MG/DL 70-110 H - XR CHEST [id number] 20:47:00 [facility] : 1960 Sex: M Patient Name: KAYLEE LEZAMA Unit No: [id number] EXAMS: CPT CODE: [id number] XR CHEST 1V 27079 EXAM: - XR CHEST 1V CLINICAL HISTORY: CVA TECHNIQUE: Single frontal view. COMPARISON: None available. LOCATION: [id number]: The trachea appears normal. The mediastinum and cardiac silhouette are within normal limits for size. The lungs are clear. No pleural effusions. Limited evaluation of soft tissues and osseous structures is grossly unremarkable. IMPRESSION: No acute cardiopulmonary process. at 2046 Reported and signed by: Alejo Ramirez MD CC: Joseph Magdaleno; Nadira Barone Jr Technologist: Renetta Ames RT R Transcrpt Date/Tm/Trnsp: 02/03/2022 (2046) [id number] Orig Print D/T: S: 02/03/2022 (2049) [facility] NAME: KAYLEE LEZAMA [address] PHYS: [place] [address] : 1960 AGE: 61 SEX: M : Z.619 A PHONE #: [phone] EXAM DATE: 02/03/2022 STATUS: ADM IN FAX #: [phone] RADIOLOGY NO: PAGE 1 Signed ReportT3 [id number] 19:30:00* Test Item Value Reference Range Interpretation Comme nts T3 FREE (test code = T3F) 3.24 PG/ML 2.77-5.27 N GLUCOSE BEDSIDE [id number] 19:18:00* Test Item Value Reference Range Interpretation Comme nts GLUCOSE BEDSIDE TESTING (rosario t code = GLUBED) 176 MG/DL 60-99 H VITAMIN [id number] 18:16:00* Test Item Value Reference Range Interpretation Comme nts VITAMIN B12 (test code = VITB12) 843 pg/mL 239-931 N THYROID STIMULATING [id number] 18:16:00* Test Item Value Reference Range Interpretation Comme nts THYROID STIMULATING HORMONE (test code = TSH) 5.820 MIU/L 0.465-4.68 H Please be aware that bias results for TSH may occur forpatient who are taking Biotin supplements. LIPID PROFILE (CORONARY RISK)2022-02-03 18:16:00* Test Item Value Reference Range Interpretation Comme nts TRIGLYCERIDES (test code = TRIG) 246 MG/DL 150-199 H TRIGLYCERIDES REFERENCE RANGE:Normal: <150 mg/dLBorderline High: 150-199 mg/dLHigh: 200-499 mg/dLVery High: >=500 mg/dL CHOLESTEROL (test code = CHOL) 318 MG/DL <200 HDL CHOLESTEROL (test code = HDL) 48 MG/DL 40-59 N LIPOPROTEIN LDL (test code = LDL) 199 MG/DL 0-99 H OPTIMAL......... <100 mg/dLNEAR OPTIMAL/ABOVE OPTIMAL.........100-12 9 mg/dL BORDERLINE HIGH.........130-159 mg/dL HIGH.........160-189 mg/dL VERY HIGH.........>/= 190 mg/dL AG PROSTATE [id number] 18:13:00* Test Item Value Reference Range Interpretation Comme nts AG PROSTATE SPECIFIC (test c ode = PSA) 2.6 ng/mL 0.0-4.0 N T4 [id number] 18:13:00* Test Item Value Reference Range Interpretation Comme nts T4 FREE (test code = T4F) 1.5 NG/DL 0.78-2.19 N GLUCOSE BEDSIDE [id number] 16:30:00* Test Item Value Reference Range Interpretation Comme nts GLUCOSE BEDSIDE TESTING (test code = GLUBED) 185 MG/DL 60-99 H Notified Nu rse~ GLUCOSE BEDSIDE [id number] 11:47:00* Test Item Value Reference Range Interpretation Comme nts GLUCOSE BEDSIDE TESTING (test code = GLUBED) 185 MG/DL 60-99 H Notified Nu rse~ GLUCOSE BEDSIDE [id number] 09:00:00* Test Item Value Reference Range Interpretation Comme nts GLUCOSE BEDSIDE TESTING (test code = GLUBED) 169 MG/DL 60-99 H Notified Nu rse~ Notes Date/Time Note Provider Source 2023-11-10 11:06:00 [id number] z7wg/emMg/RHEOknWGQPfAE6pm+WT 1DbOWGzB4kcVs+8+UbR7zhkXmw37518-78-93E38:06:00 [facility] ([facility])Gastroenterology Progress NoteREPORT#:[id number] REPORT STATUS: SignedREPORT INITIALIZATION DATE:11/10/23 TIME: 1105 PATIENT: KAYLEE LEZAMA UNIT #: [id number]#: [id number] [address] [birth year] AGE: 63 SEX: M ATTEND: Paige Holloway MDADM AUTHOR: Loc English PAREPT SERVICE DT/TIME: 11/10/23 110* ALL edits or amendments must be made on the electronic/computer document * SubjectiveComments:no vomiting, nausea, or abdominal pain. hgb stable Objective GeneralVS/I O:Last Documented: Result Date Time Resp 15 11/09 0813 B/P 162/82 11/09 0800 B/P Mean 114 11/09 0800 Pulse 89 11/09 08 Temp 97.9 11/09 0708 Pulse Ox 91 11/09 0428 O2 Delivery Nasal cannula 11/08 814 O2 Flow Rate 2 11/08 0815 24 hour I O ending at 0700: 11/09 0700 11/08 1900 Intake Total 300 Output Total 400 Balance -100 Intake, Oral 300 Output, Urine 400 PATIENT WEIGHT: Weight (lb): Weight (oz): Weight (kg): 97.727 Medications:Active Meds + DC'd Last 24 HrsPotassium Chloride (POTASSIUM CHLORIDE 20MEQ TAB.ER) 40 MEQ ONCE ONE PO (DC) Mupirocin (BACTROBAN 2% 22 GM OINTMENT) 1 APPLIC BID NASAL Pantoprazole (PROTONIX) 40 MG BID@0600,1800 PO Dextrose/Water (DEXTROSE 10% IN WATER) 125 ML ASDIR PRN IV (CKD) Dextrose/Water (DEXTROSE 10% IN WATER) 250 ML ASDIR PRN IV (CKD) Glucagon (GLUCAGON) 1 MG ASDIR PRN IM Atorvastatin Calcium (LIPITOR) 80 MG BEDTIME PO Insulin Glargine (Semglee) 24 UNIT BEDTIME SUBQ Hydralazine HCl (APRESOLINE) 50 MG Q8HR PO Albuterol Sulfate (ALBUTEROL SULFATE) 2.5 MG RTQ4H PRN PRN NEB Amlodipine Besylate (NORVASC) 10 MG DAILY PO Clopidogrel Bisulfate (Plavix) 75 MG DAILY PO Losartan Potassium (COZAAR) 100 MG DAILY PO Hydralazine HCl (APRESOLINE) 10 MG Q6H PRN PRN IV Sodium Chloride (SODIUM CHLORIDE) 10 ML ASDIR PRN IV Acetaminophen (TYLENOL) 650 MG Q4H PRN PRN PO (DC) Morphine Sulfate (morphine SULFATE) 4 MG Q4H PRN PRN IV (DC) Ondansetron HCl (ZOFRAN) 4 MG Q6H PRN PRN IV (DC) Sodium Chloride (SODIUM CHLORIDE) 10 ML ASDIR PRN IV Physical ExamHEENT: atraumaticNeck: decreased range of motionCardiovascular: normal capillary refill, regular rate rhythmRespiratory: aerating well, no distressAbdomen: non-tender, softExtremities: decreased range of motionMusculoskeletal: decreased ROMNeuro/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: disorientedSkin: dry, intactPsychiatry: abnl judgment/insight ResultsFindings/Data:Laboratory Tests 11/10/23444:[Embedded Image Not Available]Laboratory Tests 11/09 Chemistry Sodium (134 - 147 mEq/L) 135 Potassium (3.4 - 5.0 mEq/L) 3.4 Chloride (100 - 108 mEq/L) 104 Carbon Dioxide (21 - 33 mEq/l) 26 Anion Gap (0 - 20) 9 BUN (7 - 25 mg/dL) 10 Creatinine (0.6 - 1.3 mg/dL) 0.9 Glomerular Filtr Rate (80 - 90) 94.8 H Glucose (77 - 141 mg/dL) 148 H POC Glucose (70 - 110 MG/DL) 194 H Calcium (8.0 - 10.5 mg/dL) 8.4 Laboratory Tests 11/09 444 Hematology WBC (4.5 - 11.0 x10 3/uL) 7.6 RBC (4.00 - 5.60 x10 6/uL) 3.36 L Hgb (12.5 - 16.9 g/dL) 8.8 L Hct (37.5 - 50.7 %) 28.6 L MCV (81.0 - 99.0 fL) 85.1 MCH (27.0 - 33.0 pg) 26.2 L MCHC (33.0 - 37.0 g/dL) 30.8 L RDW (11.5 - 14.5 %) 20.0 H Plt Count (150 - 400 x10 3/uL) 259 MPV (7.0 - 9.0 fL) 9.5 H Neut % (Auto) (56.0 - 77.0 %) 72.5 Lymph % (Auto) (14.0 - 32.0 %) 11.8 L [place] % (Auto) (4.8 - 9.0 %) 11.7 H Eos % (Auto) (0.3 - 3.7 %) 3.1 Baso % (Auto) (0.0 - 2.0 %) 0.5 Neut # (Auto) (2.0 - 7.6 x10 3/uL) 5.53 Lymph # (Auto) (1.0 - 3.8 x10 3/uL) 0.90 L [place] # (Auto) (0.1 - 0.8 x10 3/uL) 0.89 H Eos # (Auto) (0.0 - 0.2 x10 3/uL) 0.24 H Baso # (Auto) (0.0 - 0.2 x10 3/uL) 0.04 Abs Immat Gran (auto) (0.00 - 0.03 x10 3/uL) 0.03 Immature Gran % (0.0 - 2.0 %) 0.4 Nucleated RBC % (0 - 0 %) 0.0 Nucleated RBCs # (Man) (0.0 - 0.1 x10 3/uL) 0.00 Diagnosis, Assessment PlanFree Text A P:Assessmentanemia, ? GIBabnormal CT, mild pancolitis, sb ileus bladder wall thickening, cystitis on DAPT Plan:- monitor h/h, transfuse as needed- monitor for further bleeding - ppi therapy - diet as tolerated will monitor from a distanceConsultants: gastroenterology at 1355 RPT #:[id number] OF REPORTPRProgress [id number]:06:00G.[id number] able for patient hptaJZTYWOXLZDEOBO6652-58-94B68:56:11 HCACL 2023-11-10 07:48:00 [id number] cub2U1cO3rQr6ywkZCr4P1BqGn7gg Zn+3BpagmBsRS+VzUD0xD+cMb2f4834-24-91J28:48:00 [facility] ([facility])Discharge SummaryREPORT#:[id number] REPORT STATUS: SignedREPORT INITIALIZATION DATE:11/10/23 TIME: 747 PATIENT: KAYLEE LEZAMA UNIT #: [id number]#: [id number] [address] [birth year] AGE: 63 SEX: M ATTEND: Paige Holloway AUTHOR: Brandon Tubbs NPREPT SERVICE DT/TIME: 11/10/23 0748* ALL edits or amendments must be made on the electronic/computer document * PCP PCPPCP:PCP: Piter Chavez MD Discharge to: [facility] General InformationDate of admission:Observation Start Date: Date of admission: 11/06/23 Discharge date: 11/10/23Discharge diagnosis:Acute GI Bleed.Melena.Hypomagnesemia.Hypokalemia.UMESH due to GI bleed.Mild pancolitis.Distal small bowel ileus.HX of HTN, HLD and CAD.Hospital course:This is a 62 year old male with [ast medical hx of HTN, HLD, CAD [facility]. He was sent to er for further eval. His Hgb was 7.9 in the ER. He was admitted for GI eval. He is awake and following command. He was seen by GI for Low Hgb and GI bleed. He was on PPI. He Is now doing better. His Hgb is stable. He will see by PT today and if he clear, will go home on Protonix 40 mg bid. Consultants: gastroenterologyPt. condition on discharge: improved, stable Med Rec Med RecDischarge meds:Continue taking these medications:OMEPRAZOLE ER (OMEPRAZOLE ER) 20 MG CAP.DR 20 MILLIGRAM ORAL TWICE DAILY. amLODIPine (NORVASC) 5 MG TAB 10 MILLIGRAM ORAL DAILY. Qty = 30 ATORVASTATIN (LIPITOR) 40 MG TAB 80 MILLIGRAM ORAL BEDTIME. Qty = 30 CLOPIDOGREL (PLAVIX) 75 MG TAB 75 MILLIGRAM ORAL DAILY. Qty = 30 hydrALAZINE (hydrALAZINE) 25 MG TAB 50 MILLIGRAM ORAL EVERY 8 HOURS. Qty = 30 ASPIRIN EC (ECOTRIN) 81 MG TAB.EC 81 MILLIGRAM ORAL DAILY. Qty = 30 INSULIN GLARGINE (LANTUS SOLOSTAR (15mL)) 100 UNIT/ML (3 ML) PEN.INJCTR 24 UNITS SUBCUTANEOUS BEDTIME. Qty = 2 ALBUTEROL (PROAIR HFA 90 MCG/ACT 8.5 GM) 90 MCG INHALER 2 PUFF INHALATION RT - EVERY 4 HOURS NEEDED. as needed for DYSPNEA/WHEEZING Qty = 1 LOSARTAN (LOSARTAN) 100 MG TAB 100 MILLIGRAM ORAL DAILY. Qty = 30 Start taking the following new medications:PANTOPRAZOLE DR (PROTONIX) 40 MG TAB.DR 40 MILLIGRAM ORAL TWICE DAILY. Qty = 60 Refills = 1 ObjectiveVS/I OLast Documented: Result Date Time Temp 36.6 11/09 0708 Pulse Ox 91 / 0428 B/P 165/72 / 0428 B/P Mean 0.0 11/09 0428 Pulse 80 / 0428 Resp 18 11/09 0428 O2 Delivery Nasal cannula 11/08 0815 O2 Flow Rate 2 11/08 0815 24 hour I O ending at 0700: 11/09 0700 11/08 1900 Intake Total 300 Output Total 400 Balance -100 Intake, Oral 300 Output, Urine 400 PATIENT WEIGHT: Weight (lb): Weight (oz): Weight (kg): 97.727 General appearance: alert, awake, orientedHead/Eyes: atraumatic, normocephalic, PERRLACardiovascular: normal capillary refill, regular rate rhythm, normal heart soundsRespiratory: clear to auscultation, no distress, no tenderness, aerating well, symmetric expansionGI: soft, non-tenderExtremities: moves all, no clubbing, no cyanosis, no evidence of DVTMusculoskeletal: full range of motion, no CVA tendernessNeuro/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, oriented X 3 ResultsFindings/Data:Laboratory Tests: 05/10 05/09 8249 8919 Chemistry Sodium (134 - 147 mEq/L) 135 Potassium (3.4 - 5.0 mEq/L) 3.4 Chloride (100 - 108 mEq/L) 104 Carbon Dioxide (21 - 33 mEq/l) 26 Anion Gap (0 - 20) 9 BUN (7 - 25 mg/dL) 10 Creatinine (0.6 - 1.3 mg/dL) 0.9 Glomerular Filtr Rate (80 - 90) 94.8 H Glucose (77 - 141 mg/dL) 148 H POC Glucose (70 - 110 MG/DL) 194 H Calcium (8.0 - 10.5 mg/dL) 8.4 Hematology WBC (4.5 - 11.0 x10 3/uL) 7.6 RBC (4.00 - 5.60 x10 6/uL) 3.36 L Hgb (12.5 - 16.9 g/dL) 8.8 L Hct (37.5 - 50.7 %) 28.6 L MCV (81.0 - 99.0 fL) 85.1 MCH (27.0 - 33.0 pg) 26.2 L MCHC (33.0 - 37.0 g/dL) 30.8 L RDW (11.5 - 14.5 %) 20.0 H Plt Count (150 - 400 x10 3/uL) 259 MPV (7.0 - 9.0 fL) 9.5 H Neut % (Auto) (56.0 - 77.0 %) 72.5 Lymph % (Auto) (14.0 - 32.0 %) 11.8 L [place] % (Auto) (4.8 - 9.0 %) 11.7 H Eos % (Auto) (0.3 - 3.7 %) 3.1 Baso % (Auto) (0.0 - 2.0 %) 0.5 Neut # (Auto) (2.0 - 7.6 x10 3/uL) 5.53 Lymph # (Auto) (1.0 - 3.8 x10 3/uL) 0.90 L [place] # (Auto) (0.1 - 0.8 x10 3/uL) 0.89 H Eos # (Auto) (0.0 - 0.2 x10 3/uL) 0.24 H Baso # (Auto) (0.0 - 0.2 x10 3/uL) 0.04 Abs Immat Gran (auto) (0.00 - 0.03 x10 3/uL) 0.03 Immature Gran % (0.0 - 2.0 %) 0.4 Nucleated RBC % (0 - 0 %) 0.0 Nucleated RBCs # (Man) (0.0 - 0.1 x10 3/uL) 0.00 Results: vital signs reviewed, vital signs stable, current med profile rev'd Discharge Instructions PCP)( Discharge to: Home Health wPlan of Care Discharge InstructionsAdditional Discharge Routines: PCP Follow-Up, Ingot Stripper Follow-Up)( Diet: Regular)( Activity: Resume Normal Activity, As Tolerated Follow-up AppointmentsPCP follow up: PCP: Piter Chavez MD PCP follow up timeframe: In 2-3 weeksConsulting provider 1: Provider 1: Jonas Stover MD Specialty: Pulmonary Disease Consult follow up timeframe: In 2-3 weeks at 0751 RPT #:[id number] OF REPORTDSDischarge sdmojvh0989-07-21W40:48:00G.[id number] ailable for patient rlkdTTRKZKMUOKMDKJ7777-70-49U97:51:49 [facility] 2023-11-09 08:14:00 [id number] +U2siP6Zeyjf3PVuMz8wAwOR2uFkT W94Ga9LdWpl32QPGrTkhzEgTGh41660-13-54Z71:14:00 [facility]ospital[facility] Progress NoteREPORT#:[id number] REPORT STATUS: SignedREPORT INITIALIZATION DATE:11/09/23 TIME: 08 PATIENT: KAYLEE LEZAMA UNIT #: [id number]#: [id number] [address] [birth year] AGE: 63 SEX: M ATTEND: Paige Holloway AUTHOR: Brandon Tubbs NPREPT SERVICE DT/TIME: 11/09/23 0814* ALL edits or amendments must be made on the electronic/computer document * SubjectiveChief complaint:He is waiting for PT.He is on 2 liter NC and o2 sat 93%Breathing is stable.His hgb is stable.No acute bleed.BP and HR stable. Review of SystemsConstitutional:Reports: fatigue, generalized weakness. Allergy/Immun:Denies: anaphylaxis, hives, itching. Respiratory:Denies: hemoptysis, pneumonia, productive cough (sputum), SOB. Cardiovascular:Denies: MATA (dyspnea on exertion), orthopnea, palpitations. GI:Denies: anorexia, diarrhea, dysphagia, GERD, hematemesis. :Denies: flank pain, hematuria, nocturia, penile lesion, testicular pain. Musculoskeletal:Denies: extremity pain, joint pain, lumbar pain, neck pain. Endocrine:Denies: heat intolerance, polyphagia, polyuria, weight gain. Neuro:Denies: bowel dysfunction, confusion, gait problem, numbness, seizure. Objective GeneralVS/I O:Vital Signs: Date Time Temp Pulse Resp B/P B/P Pulse O2 O2 Flow FiO2 Mean Ox Delivery Rate 11/08 0649 37.0 17 05 0500 80 16 125/57 82 96 11/08 0401 84 14 153/70 101 97 / 0350 37.0 82 18 147/65 0.0 100 Room air 11/08 0301 85 19 183/67 96 97 / 0200 83 14 141/64 92 100 / 0101 86 14 141/53 77 98 / 0017 37.0 84 14 155/67 0.0 100 Room air 05/ 0000 86 17 155/67 96 99 05/ 2300 84 12 152/67 96 100 / 2200 85 13 131/58 83 99 05/08 2100 83 16 140/63 91 99 05/ 2000 94 16 161/67 97 99 05/08 1908 36.8 93 18 159/67 0.0 100 Nasal cannula 11/07 1900 84 14 159/67 97 100 05/08 1800 85 15 151/67 96 100 05/ 1700 90 16 137/61 88 99 05/ 1646 36.9 86 14 149/64 0.0 100 Nasal cannula 05/08 1600 83 14 142/55 89 100 05/08 1545 83 13 149/66 95 100 05/08 1501 79 14 175/72 103 100 05/08 1400 87 17 167/71 102 100 05/08 1301 84 13 150/66 95 100 05/08 1201 79 11 172/73 105 100 05/08 1150 36.7 83 19 175/56 0.0 100 Nasal cannula 05/08 1101 86 16 220/83 119 100 05/08 1001 148/76 103 100 05/08 0901 169/67 96 100 24 hour I O ending at 0700: 0509 0700 05/08 1900 Intake Total 1260 Output Total 2150 Balance -890 Intake, Oral 1260 Number 1 Bowel Movements Output, Urine 2150 PATIENT WEIGHT: Weight (lb): Weight (oz): Weight (kg): 97.727 Medications:Active Meds + DC'd Last 24 HrsMupirocin (BACTROBAN 2% 22 GM OINTMENT) 1 APPLIC BID NASAL Pantoprazole (PROTONIX) 40 MG BID@0600,1800 PO Dextrose/Water (DEXTROSE 10% IN WATER) 125 ML ASDIR PRN IV (CKD) Dextrose/Water (DEXTROSE 10% IN WATER) 250 ML ASDIR PRN IV (CKD) Glucagon (GLUCAGON) 1 MG ASDIR PRN IM Atorvastatin Calcium (LIPITOR) 80 MG BEDTIME PO Insulin Glargine (Semglee) 24 UNIT BEDTIME SUBQ Hydralazine HCl (APRESOLINE) 50 MG Q8HR PO Albuterol Sulfate (ALBUTEROL SULFATE) 2.5 MG RTQ4H PRN PRN NEB Amlodipine Besylate (NORVASC) 10 MG DAILY PO Clopidogrel Bisulfate (Plavix) 75 MG DAILY PO Losartan Potassium (COZAAR) 100 MG DAILY PO Pantoprazole Sodium (PROTONIX) 40 MG Q12HR IV (DC) Hydralazine HCl (APRESOLINE) 10 MG Q6H PRN PRN IV Sodium Chloride (SODIUM CHLORIDE) 10 ML ASDIR PRN IV Acetaminophen (TYLENOL) 650 MG Q4H PRN PRN PO Morphine Sulfate (morphine SULFATE) 4 MG Q4H PRN PRN IV Ondansetron HCl (ZOFRAN) 4 MG Q6H PRN PRN IV Sodium Chloride (SODIUM CHLORIDE 0.9%) 1,000 ML .Q10H IV (DC) Sodium Chloride (SODIUM CHLORIDE) 10 ML ASDIR PRN IV Dietitian nutrition assessmentThe data set between the solid lines has been imported from the dietitian's assessment. BMI Calculated: 27.7Nutrition related diagnosis: Nutrition diagnosis details: Nutrition problem: Nutrition etiology: Nutrition signs and symptoms: Nutrition prescription: Dietitian name: Assessment completed: Physical ExamGeneral appearance: respiratory support, alert, awake, orientedHead/Eyes: atraumatic, normocephalic, PERRLACardiovascular: normal capillary refill, normal heart sounds, regular rate rhythmRespiratory: aerating well, symmetric expansion, no distressAbdomen: non-tender, normal bowel soundsGenitourinary: no flank pain, no urinary catheterExtremities: no calf tenderness, no clubbing, no cyanosisMusculoskeletal: no muscle spasmNeuro/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 ResultsFindings/Data:Laboratory Tests 11/07 1908 Chemistry POC Glucose (70 - 110 MG/DL) 122 H Results: labs reviewed, vital signs reviewed, vital signs stable, current med profile rev'd Treatment Prophylaxis Treatment ProphylaxisOxygen: room air Diagnosis, Assessment PlanOrders: Procedure Date/time Status PHYSICAL THERAPIST CONSULT 11/07 1702 Active Occupational Therapist Consult 11/07 1702 Active Case Management Consult 11/07 1702 Active Code status: full codePlan discussed with: patient, admitting physician, consultants, nurse Free Text DxA P NotesFree text DxA P notes:Assessment and Plan: Acute GI Bleed.Melena.Hypomagnesemia.Hypokalemia.UMESH due to GI bleed.Mild pancolitis.Distal small bowel ileus.HX of HTN, HLD and CAD. Plan: IMCU.Waiting for PT.COntinue Monitor H H.Pain meds.Antiemetics.PPI.FOllow labs and replace as needed.COntinue Home meds.PT and OT.Monitor. at 0815 RPT #:[id number] OF REPORTPRProgress arvu6369-57-86C02:14:00G.[id number] able for patient qedxIKVRNLFXPUOBUT5389-50-08L72:16:07 [facility] 2023-11-09 08:04:00 [id number] 2sl6cJzF0Hhmr7k7mHyRVelQC5kWA q5HJukrsVmPehtT6US+HyY/cBrh7099-48-47X86:04:00 [facility])Gastroenterology Progress NoteREPORT#:[id number] REPORT STATUS: SignedREPORT INITIALIZATION DATE:11/09/23 TIME: 803 PATIENT: KAYLEE LEZAMA UNIT #: [id number]#: [id number] [address] [birth year] AGE: 63 SEX: M ATTEND: Paige Holloway MDADM AUTHOR: Quinten Castro MDREPT SERVICE DT/TIME: 11/09/23 0804* ALL edits or amendments must be made on the electronic/computer document * SubjectiveComments:sleeping, wakes up readily, limited interaction Review of SystemsAdditional notes:10 point ros neg except hpi Objective GeneralVS/I O:Last Documented: Result Date Time Temp 37.0 11/08 0649 Resp 17 11/08 0649 Pulse Ox 96 11/08 0500 B/P 125/57 11/08 0500 B/P Mean 82 11/08 0500 Pulse 80 11/08 0500 O2 Delivery Room air 11/08 0350 O2 Flow Rate 2 11/07 0815 24 hour I O ending at 0700: 11/08 0700 11/07 1900 Intake Total 1260 Output Total 2150 Balance -890 Intake, Oral 1260 Number 1 Bowel Movements Output, Urine 2150 PATIENT WEIGHT: Weight (lb): Weight (oz): Weight (kg): 97.727 Medications:Active Meds + DC'd Last 24 HrsMupirocin (BACTROBAN 2% 22 GM OINTMENT) 1 APPLIC BID NASAL Pantoprazole (PROTONIX) 40 MG BID@0600,1800 PO Dextrose/Water (DEXTROSE 10% IN WATER) 125 ML ASDIR PRN IV (CKD) Dextrose/Water (DEXTROSE 10% IN WATER) 250 ML ASDIR PRN IV (CKD) Glucagon (GLUCAGON) 1 MG ASDIR PRN IM Atorvastatin Calcium (LIPITOR) 80 MG BEDTIME PO Insulin Glargine (Semglee) 24 UNIT BEDTIME SUBQ Hydralazine HCl (APRESOLINE) 50 MG Q8HR PO Albuterol Sulfate (ALBUTEROL SULFATE) 2.5 MG RTQ4H PRN PRN NEB Amlodipine Besylate (NORVASC) 10 MG DAILY PO Clopidogrel Bisulfate (Plavix) 75 MG DAILY PO Losartan Potassium (COZAAR) 100 MG DAILY PO Pantoprazole Sodium (PROTONIX) 40 MG Q12HR IV (DC) Hydralazine HCl (APRESOLINE) 10 MG Q6H PRN PRN IV Sodium Chloride (SODIUM CHLORIDE) 10 ML ASDIR PRN IV Acetaminophen (TYLENOL) 650 MG Q4H PRN PRN PO Morphine Sulfate (morphine SULFATE) 4 MG Q4H PRN PRN IV Ondansetron HCl (ZOFRAN) 4 MG Q6H PRN PRN IV Sodium Chloride (SODIUM CHLORIDE 0.9%) 1,000 ML .Q10H IV (DC) Sodium Chloride (SODIUM CHLORIDE) 10 ML ASDIR PRN IV Physical ExamGeneral appearance: altered mental status, sleeping comfortablyHEENT: atraumaticNeck: decreased range of motionCardiovascular: normal capillary refill, regular rate rhythmRespiratory: aerating well, no distressAbdomen: non-tender, softExtremities: decreased range of motionMusculoskeletal: decreased ROMNeuro/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: disorientedSkin: dry, intactPsychiatry: abnl judgment/insight ResultsFindings/Data:Laboratory Tests 11/07 1909 Chemistry POC Glucose (70 - 110 MG/DL) 122 H Diagnosis, Assessment PlanFree Text A P:Assessmentanemia, ? GIBabnormal CT, mild pancolitis, sb ileus bladder wall thickening, cystitis on DAPT Plan:- monitor h/h, transfuse as needed- monitor for further bleeding - ppi therapy - diet as tolerated will monitor from a distance at 0855 RPT #:[id number] OF REPORTPRProgress leia9353-97-98H55:04:00G.[id number] able for patient mlieSUMQTQKOSUHXEC4658-50-99K48:55:26 [facility] 2023-11-08 09:42:00 [id number] 6Gc2hj8heTC2aUmfSTzFenmwBo7iZ fVVZXcwQcK6Lhar7Nk5ncbOL+uc3932-94-14D88:42:00 [facility] ([facility])Gastroenterology Progress NoteREPORT#:[id number] REPORT STATUS: SignedREPORT INITIALIZATION DATE:11/08/23 TIME: 941 PATIENT: KAYLEE LEZAMA UNIT #: [id number]#: [id number] [address] [birth year] AGE: 63 SEX: M ATTEND: Paige Holloway MDA AUTHOR: Quinten Castro MDREPT SERVICE DT/TIME: 11/08/23 0942* ALL edits or amendments must be made on the electronic/computer document * SubjectiveComments:interactive but only nods and makes eye contact Objective GeneralVS/I O:Last Documented: Result Date Time Pulse Ox 100 11/07 724 B/P 160/97 11/07 724 B/P Mean 0.0 11/07 724 O2 Delivery Nasal cannula 11/07 724 Temp 36.9 11/07 724 Pulse 80 11/07 724 Resp 17 11/07 724 O2 Flow Rate 2 11/064 24 hour I O ending at 0700: 11/07 0700 11/06 1900 Intake Total 700 947.50 Output Total 1100 700 Balance -400 247.50 Intake, IV 447.50 Intake, Oral 700 500 Number 2 Bowel Movements Output, Urine 1100 700 PATIENT WEIGHT: Weight (lb): Weight (oz): Weight (kg): 97.727 Medications:Active Meds + DC'd Last 24 HrsMagnesium Oxide (MAG-OX 400) 400 MG ONCE ONE PO (DC) Atorvastatin Calcium (LIPITOR) 80 MG BEDTIME PO Insulin Glargine (Semglee) 24 UNIT BEDTIME SUBQ Hydralazine HCl (APRESOLINE) 50 MG Q8HR PO Albuterol Sulfate (ALBUTEROL SULFATE) 2.5 MG RTQ4H PRN PRN NEB Amlodipine Besylate (NORVASC) 10 MG DAILY PO Clopidogrel Bisulfate (Plavix) 75 MG DAILY PO Losartan Potassium (COZAAR) 100 MG DAILY PO Magnesium Sulfate (MAGNESIUM SULFATE 2GM/SWFI 50ML) 50 ML ONCE ONE IV (DC) Potassium Chloride (POTASSIUM CHLORIDE 20MEQ TAB.ER) 40 MEQ Q2H PO (DC) Pantoprazole Sodium (PROTONIX) 40 MG Q12HR IV Hydralazine HCl (APRESOLINE) 10 MG Q6H PRN PRN IV Sodium Chloride (SODIUM CHLORIDE) 10 ML ASDIR PRN IV Acetaminophen (TYLENOL) 650 MG Q4H PRN PRN PO Morphine Sulfate (morphine SULFATE) 4 MG Q4H PRN PRN IV Ondansetron HCl (ZOFRAN) 4 MG Q6H PRN PRN IV Sodium Chloride (SODIUM CHLORIDE 0.9%) 1,000 ML .Q10H IV Sodium Chloride (SODIUM CHLORIDE) 10 ML ASDIR PRN IV Physical ExamHEENT: atraumaticNeck: decreased range of motionCardiovascular: normal capillary refill, regular rate rhythmRespiratory: aerating well, no distressAbdomen: non-tender, softExtremities: decreased range of motionMusculoskeletal: decreased ROMNeuro/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Skin: dry, intact Diagnosis, Assessment PlanFree Text A P:Assessmentanemia, ? GIBabnormal CT, mild pancolitis, sb ileus bladder wall thickening, cystitis on DAPT Plan:- monitor h/h, transfuse as needed- monitor for further bleeding - ppi therapy - diet as tolerated will monitor from a distance at 0943 RPT #:[id number] OF REPORTPRProgress [id number]:42:00G.[id number] able for patient oybpIXCEKHVILVEKWY1861-76-47G60:43:20 [facility] 2023-11-08 07:45:00 [id number] inuROWZH/g+A3lTGkCubEAmbSPNly rnn+0gnwK2TlFvWMMa1GRBqsjv78666-36-75K52:45:00 [facility] ([facility])Hospitalist Progress NoteREPORT#:[id number] REPORT STATUS: SignedREPORT INITIALIZATION DATE:11/08/23 TIME: 744 PATIENT: KAYLEE LEZAMA UNIT #: [id number]#: [id number] [address] [birth year] AGE: 63 SEX: M ATTEND: Paige Holloway [facility] AUTHOR: Brandon Tubbs NPREPT SERVICE DT/TIME: 11/08/2345* ALL edits or amendments must be made on the electronic/computer document * SubjectiveChief complaint:He is stable.Breathing is stable.On 2 liter NC.His hgb is stable.No acute bleed.BP and HR stable. Review of SystemsConstitutional:Reports: fatigue, generalized weakness. Allergy/Immun:Denies: anaphylaxis, rhinorrhea, sneezing. Respiratory:Denies: hemoptysis, pleurisy, pneumonia. Cardiovascular:Denies: MATA (dyspnea on exertion), orthopnea, palpitations. GI:Denies: anorexia, diarrhea, hematemesis, hiatal hernia, melena. :Denies: flank pain, frequency, nocturia, testicular pain. Heme:Denies: bleeding, bruising. Neuro:Denies: bowel dysfunction, dizziness, focal weakness, headache, numbness, slurred speech. Objective GeneralVS/I O:Vital Signs: Date Time Temp Pulse Resp B/P B/P Pulse O2 O2 Flow FiO2 Mean Ox Delivery Rate 11/07 724 36.9 80 17 160/97 0.0 100 Nasal cannula 05/08 0600 79 136/60 87 100 05/08 0501 78 119/55 79 100 05/08 0428 37.0 05/08 0400 94 Room air 05/08 0400 82 13 131/58 83 100 05/08 0300 78 126/58 84 100 05/08 0201 80 12 125/50 71 100 05/08 0100 82 12 119/78 94 100 05/08 0034 36.9 05/08 0000 79 13 118/78 93 100 05/07 2301 82 13 140/58 84 100 05/07 2201 82 05/07 2201 15 138/60 86 100 05/07 2104 Nasal 2 cannula 05/07 2101 83 05/07 2101 20 183/71 102 100 05/07 2000 78 15 157/58 84 97 05/07 1948 37.1 05/07 1919 82 15 98 05/07 1845 15 05/07 1801 84 99 05/07 1701 79 151/67 96 100 05/07 1700 15 05/07 1625 36.6 72 18 95/50 0.0 100 Room air 05/07 1600 80 12 95/50 69 100 05/07 1501 76 115/53 77 100 05/07 1500 12 05/07 1400 77 15 138/60 86 100 05/07 1301 79 12 147/59 85 100 05/07 1224 76 13 160/66 95 100 05/07 1201 84 177/77 110 99 05/07 1146 36.7 80 18 164/70 0.0 100 Room air 05/07 1101 83 24 164/70 100 100 05/07 1010 80 20 166/67 97 100 05/07 0900 79 16 174/71 102 100 05/07 0801 78 15 156/64 89 100 05/07 0800 Nasal 2 cannula 24 hour I O ending at 0700: 05/08 0700 05/07 1900 Intake Total 700 947.50 Output Total 1100 700 Balance -400 247.50 Intake, IV 447.50 Intake, Oral 700 500 Number 2 Bowel Movements Output, Urine 1100 700 PATIENT WEIGHT: Weight (lb): Weight (oz): Weight (kg): 97.727 Medications:Active Meds + DC'd Last 24 HrsAtorvastatin Calcium (LIPITOR) 80 MG BEDTIME PO Insulin Glargine (Semglee) 24 UNIT BEDTIME SUBQ Hydralazine HCl (APRESOLINE) 50 MG Q8HR PO Albuterol Sulfate (ALBUTEROL SULFATE) 2.5 MG RTQ4H PRN PRN NEB Amlodipine Besylate (NORVASC) 10 MG DAILY PO Clopidogrel Bisulfate (Plavix) 75 MG DAILY PO Losartan Potassium (COZAAR) 100 MG DAILY PO Magnesium Sulfate (MAGNESIUM SULFATE 2GM/SWFI 50ML) 50 ML ONCE ONE IV (DC) Potassium Chloride (POTASSIUM CHLORIDE 20MEQ TAB.ER) 40 MEQ Q2H PO (DC) Pantoprazole Sodium (PROTONIX) 40 MG Q12HR IV Hydralazine HCl (APRESOLINE) 10 MG Q6H PRN PRN IV Sodium Chloride (SODIUM CHLORIDE) 10 ML ASDIR PRN IV Acetaminophen (TYLENOL) 650 MG Q4H PRN PRN PO Morphine Sulfate (morphine SULFATE) 4 MG Q4H PRN PRN IV Ondansetron HCl (ZOFRAN) 4 MG Q6H PRN PRN IV Sodium Chloride (SODIUM CHLORIDE 0.9%) 1,000 ML .Q10H IV Sodium Chloride (SODIUM CHLORIDE) 10 ML ASDIR PRN IV Dietitian nutrition assessmentThe data set between the solid lines has been imported from the dietitian's assessment. BMI Calculated: 27.7Nutrition related diagnosis: Nutrition diagnosis details: Nutrition problem: Nutrition etiology: Nutrition signs and symptoms: Nutrition prescription: Dietitian name: Assessment completed: Physical ExamGeneral appearance: alert, awake, orientedHead/Eyes: atraumatic, normocephalic, PERRLACardiovascular: normal capillary refill, normal heart sounds, regular rate rhythmRespiratory: aerating well, symmetric expansion, no distressAbdomen: non-tender, normal bowel soundsGenitourinary: no flank pain, no urinary catheterExtremities: no calf tenderness, no clubbing, no cyanosisMusculoskeletal: no muscle spasmNeuro/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 ResultsFindings/Data:Laboratory Tests 11/070 Chemistry Sodium (134 - 147 mEq/L) 134 Potassium (3.4 - 5.0 mEq/L) 3.6 Chloride (100 - 108 mEq/L) 107 Carbon Dioxide (21 - 33 mEq/l) 21 Anion Gap (0 - 20) 10 BUN (7 - 25 mg/dL) 9 Creatinine (0.6 - 1.3 mg/dL) 0.9 Glomerular Filtr Rate (80 - 90) 94.8 H Glucose (77 - 141 mg/dL) 110 POC Glucose (70 - 110 MG/DL) 121 H Calcium (8.0 - 10.5 mg/dL) 8.4 Magnesium (1.6 - 2.6 mg/dL) 1.71 Total Bilirubin (0.0 - 1.0 mg/dL) 0.50 AST (8 - 34 IUnit/L) 10 ALT (10 - 49 IUnit/L) 7 L Total Alk Phosphatase (20 - 125 IUnit/L) 99 Total Protein (6.4 - 8.2 g/dL) 6.6 Albumin (3.4 - 5.0 g/dL) 2.50 L Laboratory Tests 11/07 409 Hematology WBC (4.5 - 11.0 x10 3/uL) 8.5 RBC (4.00 - 5.60 x10 6/uL) 3.18 L Hgb (12.5 - 16.9 g/dL) 8.4 L Hct (37.5 - 50.7 %) 26.9 L MCV (81.0 - 99.0 fL) 84.6 MCH (27.0 - 33.0 pg) 26.4 L MCHC (33.0 - 37.0 g/dL) 31.2 L RDW (11.5 - 14.5 %) 19.7 H Plt Count (150 - 400 x10 3/uL) 232 MPV (7.0 - 9.0 fL) 9.4 H Neut % (Auto) (56.0 - 77.0 %) 77.4 H Lymph % (Auto) (14.0 - 32.0 %) 10.2 L [place] % (Auto) (4.8 - 9.0 %) 9.4 H Eos % (Auto) (0.3 - 3.7 %) 2.1 Baso % (Auto) (0.0 - 2.0 %) 0.5 Neut # (Auto) (2.0 - 7.6 x10 3/uL) 6.61 Lymph # (Auto) (1.0 - 3.8 x10 3/uL) 0.87 L [place] # (Auto) (0.1 - 0.8 x10 3/uL) 0.80 Eos # (Auto) (0.0 - 0.2 x10 3/uL) 0.18 Baso # (Auto) (0.0 - 0.2 x10 3/uL) 0.04 Abs Immat Gran (auto) (0.00 - 0.03 x10 3/uL) 0.03 Immature Gran % (0.0 - 2.0 %) 0.4 Nucleated RBC % (0 - 0 %) 0.0 Nucleated RBCs # (Man) (0.0 - 0.1 x10 3/uL) 0.00 Results: vital signs reviewed, vital signs stable, current med profile rev'd Treatment Prophylaxis Treatment ProphylaxisOxygen: room air Diagnosis, Assessment PlanOrders: Procedure Date/time Status EVAL PT HIGH COMPLEX [id number] 11/06 1920 Active PT: POCC - PT STAFF ONLY 11/06 1920 Active Code status: full codePlan discussed with: patient, admitting physician, consultants, nurse Free Text DxA P NotesFree text DxA P notes:Assessment and Plan: Acute GI Bleed.Melena.Hypomagnesemia.Hypokalemia.UMESH due to GI bleed.Mild pancolitis.Distal small bowel ileus.HX of HTN, HLD and CAD. Plan: IMCU.Will replace mag.COntinue Monitor H H.Pain meds.Antiemetics.PPI.FOllow labs and replace as needed.COntinue Home meds.PT and OT.Monitor. at 0747 at 2013 RPT #:[id number] OF REPORTPRProgress dpbs3239-91-28C65:45:00G.[id number] able for patient bfvhUPDBCTBVOFMJJO4663-96-03K82:47:39 [facility] 2023 14:19:00 [id number] dSW9Uwu7bEqRLXTRCpcnZaJm5s6kI eHF85ibE5Xd2MJcMRxwB9QE96wD5144-17-81V43:19:00 [facility] ([facility])Gastroenterology Progress NoteREPORT#:[id number] REPORT STATUS: SignedREPORT INITIALIZATION DATE:11/07/23 TIME: 1418 PATIENT: KAYLEE LEZAMA UNIT #: [id number]#: [id number] [address] [birth year] AGE: 63 SEX: M ATTEND: Paige Holloway MDADM AUTHOR: Quinten Castro MDREPT SERVICE DT/TIME: 11/07/23 141* ALL edits or amendments must be made on the electronic/computer document * SubjectiveComments:forgetful, little interaction, nods appropriatedly Review of SystemsAdditional notes:10 point ros neg except hpi Objective GeneralMedications:Active Meds + DC'd Last 24 HrsMagnesium Oxide (MAG-OX 400) 400 MG ONCE ONE PO (DC) Atorvastatin Calcium (LIPITOR) 80 MG BEDTIME PO Insulin Glargine (Semglee) 24 UNIT BEDTIME SUBQ Hydralazine HCl (APRESOLINE) 50 MG Q8HR PO Albuterol Sulfate (ALBUTEROL SULFATE) 2.5 MG RTQ4H PRN PRN NEB Amlodipine Besylate (NORVASC) 10 MG DAILY PO Clopidogrel Bisulfate (Plavix) 75 MG DAILY PO Losartan Potassium (COZAAR) 100 MG DAILY PO Magnesium Sulfate (MAGNESIUM SULFATE 2GM/SWFI 50ML) 50 ML ONCE ONE IV (DC) Potassium Chloride (POTASSIUM CHLORIDE 20MEQ TAB.ER) 40 MEQ Q2H PO (DC) Pantoprazole Sodium (PROTONIX) 40 MG Q12HR IV Hydralazine HCl (APRESOLINE) 10 MG Q6H PRN PRN IV Sodium Chloride (SODIUM CHLORIDE) 10 ML ASDIR PRN IV Acetaminophen (TYLENOL) 650 MG Q4H PRN PRN PO Morphine Sulfate (morphine SULFATE) 4 MG Q4H PRN PRN IV Ondansetron HCl (ZOFRAN) 4 MG Q6H PRN PRN IV Sodium Chloride (SODIUM CHLORIDE 0.9%) 1,000 ML .Q10H IV Sodium Chloride (SODIUM CHLORIDE) 10 ML ASDIR PRN IV Physical ExamGeneral appearance: awakeHEENT: atraumaticNeck: decreased range of motionCardiovascular: normal capillary refill, regular rate rhythmRespiratory: aerating well, no distressAbdomen: non-tender, softExtremities: decreased range of motionMusculoskeletal: decreased ROMNeuro/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Skin: dry, intact Diagnosis, Assessment PlanFree Text A P:Assessmentanemia, ? GIBabnormal CT, mild pancolitis, sb ileus bladder wall thickening, cystitis on DAPT Plan:- monitor h/h, transfuse as needed- monitor for further bleeding - ppi therapy - diet as tolerated will monitor from a distance at 0942 RPT #:[id number] OF REPORTPRProgress [id number]:19:00G.[id number] able for patient [id number]:42:30 [facility] 2023 08:44:00 [id number]+2Fu+pr3Nj Qx+[id number]:44:00 [facility] CenterHospitalist Progress NoteREPORT#:[id number] REPORT STATUS: SignedREPORT INITIALIZATION DATE:11/07/23 TIME: 843 PATIENT: KAYLEE LEZAMA UNIT #: [id number]#: [id number] [address] [birth year] AGE: 63 SEX: M ATTEND: aPige Holloway AUTHOR: Brandon Tubbs NPREPT SERVICE DT/TIME: 11/07/23 0844* ALL edits or amendments must be made on the electronic/computer document * SubjectiveChief complaint:He is tolerating clear diet.His hgb is stable.No acute bleed.BP and HR stable.Breathing is stable. Review of SystemsConstitutional:Reports: fatigue, generalized weakness. Allergy/Immun:Denies: anaphylaxis, hives, sneezing. Respiratory:Denies: hemoptysis, non productive cough, pneumonia, SOB. Cardiovascular:Denies: MATA (dyspnea on exertion), edema, orthopnea, parox nocturnal dyspnea. GI:Denies: constipation, dysphagia, hematochezia, melena. :Denies: frequency, penile discharge, penile lesion, testicular pain, testicular swelling. Musculoskeletal:Denies: extremity pain, joint pain, neck pain, thoracic pain. Endocrine:Denies: heat intolerance, polydipsia, polyuria. Neuro:Denies: bowel dysfunction, dizziness, headache, numbness, spinning sensation, unable to speak. Objective GeneralVS/I O:Vital Signs: Date Time Temp Pulse Resp B/P B/P Pulse O2 O2 Flow FiO2 Mean Ox Delivery Rate / 0801 78 15 156/64 89 100 05/07 0718 36.9 80 18 164/69 0.0 100 Nasal cannula 05/07 0704 80 15 164/69 99 100 05/07 0600 81 14 135/63 92 100 05/07 0501 77 14 143/65 93 100 05/07 0441 36.4 76 18 161/63 0.0 100 05/07 0400 84 142/59 85 73 05/07 0300 83 14 147/61 88 100 05/07 0200 83 14 149/66 95 100 05/07 0100 86 15 152/72 94 100 05/07 0033 36.6 84 17 137/61 0.0 100 05/07 0032 84 15 137/61 88 100 05/06 2300 Nasal 2 cannula 11/05 2149 87 170/72 104.6 99 05/06 2149 87 170/72 104.6 99 05/06 1918 88 14 179/75 108 100 05/06 1800 76 13 132/60 86 100 05/06 1500 88 14 148/86 103 100 05/06 1400 80 139/90 108 100 / 1301 79 171/71 102 100 / 1200 78 187/83 119 100 / 1100 76 158/66 95 100 11/05 0951 36.6 77 15 152/65 100 11/05 0930 76 152/65 94 100 11/05 0900 75 149/63 90 100 24 hour I O ending at 0700: 11/06 0700 11/05 1900 Intake Total 350 Output Total Balance 350 Intake, 350 Packed Cells PATIENT WEIGHT: Weight (lb): Weight (oz): Weight (kg): 97.727 Medications:Active Meds + DC'd Last 24 HrsPotassium Chloride (POTASSIUM CHLORIDE 20MEQ TAB.ER) 40 MEQ Q2H PO (UNV) Pantoprazole Sodium (PROTONIX) 40 MG Q12HR IV Hydralazine HCl (APRESOLINE) 10 MG Q6H PRN PRN IV Sodium Chloride (SODIUM CHLORIDE) 10 ML ASDIR PRN IV Acetaminophen (TYLENOL) 650 MG Q4H PRN PRN PO Morphine Sulfate (morphine SULFATE) 4 MG Q4H PRN PRN IV Ondansetron HCl (ZOFRAN) 4 MG Q6H PRN PRN IV Sodium Chloride (SODIUM CHLORIDE 0.9%) 1,000 ML .Q10H IV Sodium Chloride (SODIUM CHLORIDE) 10 ML ASDIR PRN IV Dietitian nutrition assessmentThe data set between the solid lines has been imported from the dietitian's assessment. BMI Calculated: 27.7Nutrition related diagnosis: Nutrition diagnosis details: Nutrition problem: Nutrition etiology: Nutrition signs and symptoms: Nutrition prescription: Dietitian name: Assessment completed: Physical ExamGeneral appearance: alert, awake, orientedHead/Eyes: atraumatic, normocephalic, PERRLACardiovascular: normal capillary refill, normal heart sounds, regular rate rhythmRespiratory: aerating well, symmetric expansion, no distressAbdomen: non-tender, normal bowel soundsGenitourinary: no flank pain, no urinary catheterExtremities: no calf tenderness, no clubbing, no cyanosisMusculoskeletal: no muscle spasmNeuro/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 ResultsFindings/Data:Laboratory Tests 11/06 433 Chemistry Sodium (134 - 147 mEq/L) 134 Potassium (3.4 - 5.0 mEq/L) 2.6 *L Chloride (100 - 108 mEq/L) 105 Carbon Dioxide (21 - 33 mEq/l) 21 Anion Gap (0 - 20) 11 BUN (7 - 25 mg/dL) 13 Creatinine (0.6 - 1.3 mg/dL) 1.0 Glomerular Filtr Rate (80 - 90) 84.1 Glucose (77 - 141 mg/dL) 182 H Calcium (8.0 - 10.5 mg/dL) 8.2 Phosphorus (2.5 - 4.9 MG/DL) 2.7 Magnesium (1.6 - 2.6 mg/dL) 1.51 L Total Bilirubin (0.0 - 1.0 mg/dL) 0.40 AST (8 - 34 IUnit/L) 10 ALT (10 - 49 IUnit/L) 8 L Total Alk Phosphatase (20 - 125 IUnit/L) 99 Total Protein (6.4 - 8.2 g/dL) 6.4 Albumin (3.4 - 5.0 g/dL) 2.30 L Laboratory Tests 11/064 1257 Hematology WBC (4.5 - 11.0 x10 3/uL) 10.4 RBC (4.00 - 5.60 x10 6/uL) 3.07 L Hgb (12.5 - 16.9 g/dL) 8.1 L 8.3 L Hct (37.5 - 50.7 %) 26.0 L 26.5 L MCV (81.0 - 99.0 fL) 84.7 MCH (27.0 - 33.0 pg) 26.4 L MCHC (33.0 - 37.0 g/dL) 31.2 L RDW (11.5 - 14.5 %) 19.8 H Plt Count (150 - 400 x10 3/uL) 217 MPV (7.0 - 9.0 fL) 9.7 H Neut % (Auto) (56.0 - 77.0 %) 81.2 H Lymph % (Auto) (14.0 - 32.0 %) 9.0 L [place] % (Auto) (4.8 - 9.0 %) 7.4 Eos % (Auto) (0.3 - 3.7 %) 1.4 Baso % (Auto) (0.0 - 2.0 %) 0.4 Neut # (Auto) (2.0 - 7.6 x10 3/uL) 8.44 H Lymph # (Auto) (1.0 - 3.8 x10 3/uL) 0.93 L [place] # (Auto) (0.1 - 0.8 x10 3/uL) 0.77 Eos # (Auto) (0.0 - 0.2 x10 3/uL) 0.15 Baso # (Auto) (0.0 - 0.2 x10 3/uL) 0.04 Abs Immat Gran (auto) (0.00 - 0.03 x10 3/uL) 0.06 H Immature Gran % (0.0 - 2.0 %) 0.6 Nucleated RBC % (0 - 0 %) 0.0 Nucleated RBCs # (Man) (0.0 - 0.1 x10 3/uL) 0.00 Laboratory Tests 11/05 1506 Urines Urine Color (YEL/STRAW) YELLOW Urine Appearance (CLEAR) TURBID H Urine pH (5.0 - 7.0) 5.0 Ur Specific Neligh (1.005 - 1.030) 1.020 Urine Protein (NEGATIVE) 2+ H Urine Glucose (UA) (NEGATIVE) 3+ H Urine Ketones (NEGATIVE) NEGATIVE Urine Blood (NEGATIVE) 1+ H Urine Nitrite (NEGATIVE) NEGATIVE Urine Bilirubin (NEGATIVE) NEGATIVE Urine Urobilinogen (0.2 - 1.0 mg/dL) 0.2 Ur Leukocyte Esterase (NEGATIVE) 3+ H Urine RBC (0 - 3 RBC/HPF) >50 H Urine WBC (0 - 3 WBC/HPF) >50 H Ur Squamous Epith Cells (NONE SEEN /HPF) NONE SEEN Urine Bacteria (NONE SEEN /HPF) 2+ H Microbiology Date/Time Procedure - Status Source Growth 11/05 946 Occult Blood - COMP STOOL Results: labs reviewed, vital signs reviewed, vital signs stable, current med profile rev'd Treatment Prophylaxis Treatment ProphylaxisOxygen: room air Diagnosis, Assessment PlanCode status: full codePlan discussed with: patient, admitting physician, consultants, nurse Free Text DxA P NotesFree text DxA P notes:Assessment and Plan: Acute GI Bleed.Melena.Hypomagnesemia.Hypokalemia.UMESH due to GI bleed.Mild pancolitis.Distal small bowel ileus.HX of HTN, HLD and CAD. Plan: IMCU.Will replace mag and K.COntinue Monitor H H.Pain meds.Antiemetics.PPI.FOllow labs and replace as needed.COntinue Home meds.PT and OT.Monitor. at 0846 at 2011 RPT #:[id number] OF REPORTPRProgress piun1004-48-35B46:44:00G.[id number] able for patient ftsuZGMGSZOYBWOITM3783-70-28K69:46:18 [facility] 2023-11-06 12:39:00 [id number] 5QjhnYY9ohc/g+oynOTvXpHR/TZ3R yz2pQst67yAAVfEvNJL3+FLWX6g6622-78-14H34:39:00 [facility] ([facility])GE Consultation NoteREPORT#:[id number] REPORT STATUS: SignedREPORT INITIALIZATION DATE:11/06/23 TIME: 1238 PATIENT: KAYLEE LEZAMA UNIT #: [id number]#: [id number] [place]OM[place]BED[place] [facility] [place]DOB: [birth year] AGE: 63 SEX: M ATTEND: Paige Holloway AUTHOR: Loc English PAREPT SERVICE DT/TIME: 11/06/23 1239* ALL edits or amendments must be made on the electronic/computer document * Loc English 11/06/23 1239:History of Present IllnessHPI:Patient is a 62 year old male with a Pmhx of hypertension, hyperlipidemia, CAD who presented to the hospital with concerns for GI bleeding. Currently, patient is awake and alert, he answers questions, but is a poor historian. Therefore, information obtained from chart review. Home medications significant for aspirinand Plavix. Labs on admission hgb 7.9, hct 25.1, an mcv 84.5. He is unsure of prior egd and colonoscopy. He received a unit of blood. Vitals appears stable, hypertensive. History - Adult longitudinalAdditional medical history:accurate pmh unable to obtain, unreliable historian, lack of paperwork from transfer facility in chartAdditional surgical history:accurate psh unable to obtain, unreliable historian, lack of paperwork from transfer facility in chartFamily history:Denies: Diabetes, Heart disease. Alcohol use: Alcohol use (significant in the past)Drug use: Denies recreational drugsSmoking status for patients 13 years old or older: Current every day smokerMedications:Home Medications:Medication Dose/Rte/Freq Days Qty Entered Last Max Daily Dose Reviewed amLODIPine (NORVASC) 10 MG PO DAILY 30 02/05/22Strength: 5 MG TAB 1521 ATORVASTATIN (LIPITOR) 80 MG PO BEDTIME 30 02/05/22Strength: 40 MG TAB 1524 OMEPRAZOLE ER 20 MG PO BID 02/05/22Strength: 20 MG CAP. 1518 CLOPIDOGREL (PLAVIX) 75 MG PO DAILY 30 02/16/22Strength: 75 MG TAB 1522 ALBUTEROL 2 PUFF INH 1 02/16/22 (PROAIR HFA 90 MCG/ACT RTQ4H PRN PRN 1522 8.5 GM) DYSPNEA/WHEEZINGStrength: 90 MCG INHALER LOSARTAN 100 MG PO DAILY 30 02/16/22Strength: 100 MG TAB 1523 hydrALAZINE 50 MG PO Q8HR 30 02/16/22Strength: 25 MG TAB 1524 ASPIRIN EC (ECOTRIN) 81 MG PO DAILY 30 02/16/22Strength: 81 MG TAB.EC 1524 INSULIN GLARGINE 24 UNITS SUBQ 2 02/16/22 (LANTUS SOLOSTAR (15mL)) BEDTIME 1524Strength: 100 UNIT/ML (3 ML)PEN.INJCTR Allergies:Coded Allergies:No Known Drug Intolerances (UNKNOWN 02/03/22) GENERIC Allergy: NO KNOWN ALLERGIESNot Converted 80. See Text. (UNKNOWN 02/03/22) GENERIC Allergy: PHA: Review of SystemsAdditional notes:10 point ros neg except hpi Objective Physical ExamVS/I O:Last Documented: Result Date Time Pulse Ox 100 11/05 1301 B/P 171/71 11/05 1301 B/P Mean 102 11/05 1301 Pulse 79 11/05 1301 Temp 97.8 11/05 0951 Resp 15 11/05 0951 O2 Delivery Room air 11/05 0321 24 hour I O ending at 0700: 11/05 0700 11/04 1900 Intake Total Output Total Balance Patient 97.727 kg Weight Weight Stated/Reported Measurement Method PATIENT WEIGHT: Weight (lb): Weight (oz): Weight (kg): 97.727 Medications:Active Meds + DC'd Last 24 HrsPantoprazole Sodium (PROTONIX) 40 MG Q12HR IV Hydralazine HCl (APRESOLINE) 10 MG Q6H PRN PRN IV Sodium Chloride (SODIUM CHLORIDE) 10 ML ASDIR PRN IV Acetaminophen (TYLENOL) 650 MG Q4H PRN PRN PO Morphine Sulfate (morphine SULFATE) 4 MG Q4H PRN PRN IV Ondansetron HCl (ZOFRAN) 4 MG Q6H PRN PRN IV Sodium Chloride (SODIUM CHLORIDE 0.9%) 1,000 ML .Q10H IV Morphine Sulfate (morphine SULFATE) 4 MG X1ED STA IV (DC) Iopamidol (ISOVUE-300 500ML) 100 ML .STK-MED ONE IV (DC) Sodium Chloride (SODIUM CHLORIDE) 10 ML ASDIR PRN IV Pantoprazole Sodium (PROTONIX) 80 MG X1ED STA IV (DC) Sodium Chloride (SODIUM CHLORIDE 0.9%) 1,000 ML X1ED STA IV (DC) General appearance: alert, awakeHEENT: atraumaticNeck: decreased range of motionCardiovascular: regular rate rhythmRespiratory: clear to auscultation, no distressAbdomen: non-tender, softExtremities: decreased range of motionMusculoskeletal: decreased ROMNeuro/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Skin: dry, intact ResultsFindings/Data:Laboratory Tests 11/06/23 1257:[Embedded Image Not Available] 11/06/23 0229:[Embedded Image Not Available]Laboratory Tests 11/05 Chemistry Sodium (134 - 147 mEq/L) 136 Potassium (3.4 - 5.0 mEq/L) 3.4 Chloride (100 - 108 mEq/L) 106 Carbon Dioxide (21 - 33 mEq/l) 23 Anion Gap (0 - 20) 10 BUN (7 - 25 mg/dL) 20 Creatinine (0.6 - 1.3 mg/dL) 1.3 Glomerular Filtr Rate (80 - 90) 61.3 L Glucose (77 - 141 mg/dL) 168 H Lactic Acid (0.4 - 1.9 mmol/L) 0.9 Calcium (8.0 - 10.5 mg/dL) 8.5 Total Bilirubin (0.0 - 1.0 mg/dL) 0.30 Direct Bilirubin (0.1 - 0.3 MG/DL) 0.10 Indirect Bilirubin (MG/DL) 0.20 AST (8 - 34 IUnit/L) 12 ALT (10 - 49 IUnit/L) 10 Total Alk Phosphatase (20 - 125 IUnit/L) 137 H Total Protein (6.4 - 8.2 g/dL) 7.2 Albumin (3.4 - 5.0 g/dL) 2.60 L Lipase (13 - 57 U/L) 30 Laboratory Tests 11/05 228 Coagulation INR (0.8 - 1.2) 1.1 PTT ([place]) (25.0 - 39.5 Seconds) 29.7 PT Patient/Control Mix (9.3 - 12.9 SECONDS) 12.0 Laboratory Tests 11/05 11/05 1257 9 Hematology WBC (4.5 - 11.0 x10 3/uL) 12.0 H RBC (4.00 - 5.60 x10 6/uL) 2.97 L Hgb (12.5 - 16.9 g/dL) 8.3 L 7.9 L Hct (37.5 - 50.7 %) 26.5 L 25.1 L MCV (81.0 - 99.0 fL) 84.5 MCH (27.0 - 33.0 pg) 26.6 L MCHC (33.0 - 37.0 g/dL) 31.5 L RDW (11.5 - 14.5 %) 20.5 H Plt Count (150 - 400 x10 3/uL) 250 MPV (7.0 - 9.0 fL) 9.9 H Microbiology Date/Time Procedure - Status Source Growth 11/05 946 Occult Blood - COMP STOOL Radiology data:Recent Impressions:CAT SCAN - CTA ABD PEL W CONT 11/05 0324 Report Impression - Status: SIGNED Entered: 11/06/20233 IMPRESSION: Mild pancolitis. Distal small bowel ileus. Extensive irregular bladder wall thickening and mild strandingconsistent with acute on chronic cystitis. Given the irregularity inthe bladder wall, underlying malignancy is not excluded. Fullness in the renal collecting systems and ureters likely from thebladder wall thickening. Impression By: Salena Robles M.D. Diagnosis, Assessment Plan Free Text DxA P NotesFree Text DxA P Notes:Assessmentanemia, ? GIBabnormal CT, mild pancolitis, sb ileus bladder wall thickening, cystitis on DAPT Plan:- monitor h/h, transfuse as needed- monitor for further bleeding - ppi therapy - clear liquid diet - attempted to call patient's sister for further information and per patient request, no answer - further recommendations pending clinical course Quinten Castro 11/08/23 0940:Attestations Physician AttestationAgree w/findings plan:Agree with the findings and plan as documented by Amador LY; at 1511 at 0940 [facility] #:[id number] OF REPORTYVFqznmhwbdxtd3883-27-92P09:39:00G.PDOC2 [id number] for patient qbpxJVQJCGLRLRSJRO5505-51-18I95:11:50 [facility] 2023-11-06 06:44:00 [id number] DpuUe2aCGvZSyqmyQX8xTzV2SX2um DYHsbAxcBsPcg5TskyOQNQQeRzr3067-76-02H74:44:00 [facility] ([facility])Hospitalist History PhysicalREPORT#:[id number] REPORT STATUS: SignedREPORT INITIALIZATION DATE:11/06/23 TIME: 643 PATIENT: KAYLEE LEZAMA UNIT #: [id number]#: [id number] [address] [birth year] AGE: 63 SEX: M ATTEND: Paige Holloway MDADM AUTHOR: Brandon Tubbs NPREPT SERVICE DT/TIME: 11/06/23643* ALL edits or amendments must be made on the electronic/computer document * History of Present Illness HPIChief complaint:GI bleedPCP:PCP: Piter Chavez MD HPI:This is a 62 year old male with [ast medical hx of HTN, HLD, CAD [facility]. He was sent to er for further eval. His Hgb was 7.9 in the ER. He was admitted for GI eval. He is awake and following command. HistoryAdditional medical history:accurate pmh unable to obtain, unreliable historian, lack of paperwork from transfer facility in chartAdditional surgical history:accurate psh unable to obtain, unreliable historian, lack of paperwork from transfer facility in chartFamily history:Denies: Diabetes, Heart disease. Alcohol use: Alcohol use (significant in the past)Drug use: Denies recreational drugsSmoking status for patients 13 years old or older: Current every day smoker Medication/Allergy-Vaccine HxMedications:Home Medications:Medication Dose/Rte/Freq Days Qty Entered Last Max Daily Dose Reviewed amLODIPine (NORVASC) 10 MG PO DAILY 30 02/05/22Strength: 5 MG TAB 1521 ATORVASTATIN (LIPITOR) 80 MG PO BEDTIME 30 02/05/22Strength: 40 MG TAB 1524 OMEPRAZOLE ER 20 MG PO BID 02/05/22Strength: 20 MG CAP. 1518 CLOPIDOGREL (PLAVIX) 75 MG PO DAILY 30 02/16/22Strength: 75 MG TAB 1522 ALBUTEROL 2 PUFF INH 1 02/16/22 (PROAIR HFA 90 MCG/ACT RTQ4H PRN PRN 1522 8.5 GM) DYSPNEA/WHEEZINGStrength: 90 MCG INHALER LOSARTAN 100 MG PO DAILY 30 02/16/22Strength: 100 MG TAB 1523 hydrALAZINE 50 MG PO Q8HR 30 02/16/22Strength: 25 MG TAB 1524 ASPIRIN EC (ECOTRIN) 81 MG PO DAILY 30 02/16/22Strength: 81 MG TAB.EC 1524 INSULIN GLARGINE 24 UNITS SUBQ 2 02/16/22 (LANTUS SOLOSTAR (15mL)) BEDTIME 1524Strength: 100 UNIT/ML (3 ML)PEN.INJCTR Current Hospital Medications:Central Nervous System Agents Sig/Gagandeep Start time Last Medication Dose Route Stop Time Status Admin Acetaminophen 650 MG Q4H PRN PRN 11/05 0600 AC (TYLENOL) PO 11/06 0454 Morphine Sulfate 4 MG Q4H PRN PRN 11/05 0600 AC (morphine SULFATE) IV 11/06 0454 Morphine Sulfate 4 MG X1ED STA 11/05 0408 DC 11/05 (morphine SULFATE) IV 11/05 0409 0621 Diagnostic Agents Sig/Gagandeep Start time Last Medication Dose Route Stop Time Status Admin Iopamidol 100 ML .STK-MED ONE 11/05 0326 DC 11/05 (ISOVUE-300 500ML) IV 11/05 0327 0326 Electrolytic, Caloric, And Vu Sig/Gagandeep Start time Last Medication Dose Route Stop Time Status Admin Sodium Chloride 1,000 ML .Q10H 11/05 0600 AC 05 (SODIUM CHLORIDE IV 11/06 0454 0622 0.9%) Sodium Chloride 10 ML ASDIR PRN 11/05 0245 AC 11/05 (SODIUM CHLORIDE) IV 02/03 0244 0316 Sodium Chloride 1,000 ML X1ED STA 11/05 0231 DC 11/05 (SODIUM CHLORIDE IV 11/05 0330 0317 0.9%) Gastrointestinal Drugs Sig/Gagandeep Start time Last Medication Dose Route Stop Time Status Admin Ondansetron HCl 4 MG Q6H PRN PRN 11/05 0600 AC 05 (ZOFRAN) IV 11/06 0454 0621 Pantoprazole Sodium 80 MG X1ED STA 11/05 0231 DC 11/05 (PROTONIX) IV 11/05 0232 0316 Allergies:Coded Allergies:No Known Drug Intolerances (UNKNOWN 02/03/22) GENERIC Allergy: NO KNOWN ALLERGIESNot Converted 80. See Text. (UNKNOWN 02/03/22) GENERIC Allergy: PHA: Review of SystemsConstitutional:fatigue, generalized weakness. Eyes:Denies: redness, visual loss/blurred, eye pain. Respiratory:Denies: MATA (dyspnea on exertion), hemoptysis, pleuritic pain, productive cough (sputum). Cardiovascular:Denies: MATA (dyspnea on exertion), orthopnea, palpitations. GI:Reports: hematochezia, melena. Denies: anorexia, diarrhea, hematemesis. :Denies: flank pain, hematuria, nocturia, penile lesion. Heme:Denies: bleeding, petechiae. Neuro:Denies: bowel dysfunction, dizziness, headache, lightheaded, numbness. Objective GeneralVS/I O:Vital Signs: Date Time Temp Pulse Resp B/P B/P Pulse O2 O2 Flow FiO2 Mean Ox Delivery Rate 11/05 0321 77 20 133/56 81 100 Room air 11/05 0226 37.7 83 20 103/53 69 97 Room air 24 hour I O ending at 0700: 11/05 0700 11/04 1900 Intake Total Output Total Balance Patient 97.727 kg Weight Weight Stated/Reported Measurement Method PATIENT WEIGHT: Weight (lb): Weight (oz): Weight (kg): 97.727 Medications:Active Meds + DC'd Last 24 HrsAcetaminophen (TYLENOL) 650 MG Q4H PRN PRN PO Morphine Sulfate (morphine SULFATE) 4 MG Q4H PRN PRN IV Ondansetron HCl (ZOFRAN) 4 MG Q6H PRN PRN IV Sodium Chloride (SODIUM CHLORIDE 0.9%) 1,000 ML .Q10H IV Morphine Sulfate (morphine SULFATE) 4 MG X1ED STA IV (DC) Iopamidol (ISOVUE-300 500ML) 100 ML .STK-MED ONE IV (DC) Sodium Chloride (SODIUM CHLORIDE) 10 ML ASDIR PRN IV Pantoprazole Sodium (PROTONIX) 80 MG X1ED STA IV (DC) Sodium Chloride (SODIUM CHLORIDE 0.9%) 1,000 ML X1ED STA IV (DC) Physical ExamGeneral appearance: awakeHead/Eyes: atraumatic, normocephalic, PERRLACardiovascular: normal capillary refill, normal heart sounds, regular rate rhythmRespiratory: aerating well, symmetric expansion, no distressAbdomen: non-tender, normal bowel soundsGenitourinary: no flank pain, no urinary catheterExtremities: no calf tenderness, no clubbing, no cyanosisMusculoskeletal: no muscle spasmNeuro/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 ResultsFindings/Data:Laboratory Tests 11/05 Chemistry Sodium (134 - 147 mEq/L) 136 Potassium (3.4 - 5.0 mEq/L) 3.4 Chloride (100 - 108 mEq/L) 106 Carbon Dioxide (21 - 33 mEq/l) 23 Anion Gap (0 - 20) 10 BUN (7 - 25 mg/dL) 20 Creatinine (0.6 - 1.3 mg/dL) 1.3 Glomerular Filtr Rate (80 - 90) 61.3 L Glucose (77 - 141 mg/dL) 168 H Lactic Acid (0.4 - 1.9 mmol/L) 0.9 Calcium (8.0 - 10.5 mg/dL) 8.5 Total Bilirubin (0.0 - 1.0 mg/dL) 0.30 Direct Bilirubin (0.1 - 0.3 MG/DL) 0.10 Indirect Bilirubin (MG/DL) 0.20 AST (8 - 34 IUnit/L) 12 ALT (10 - 49 IUnit/L) 10 Total Alk Phosphatase (20 - 125 IUnit/L) 137 H Total Protein (6.4 - 8.2 g/dL) 7.2 Albumin (3.4 - 5.0 g/dL) 2.60 L Lipase (13 - 57 U/L) 30 Laboratory Tests 11/05 228 Coagulation INR (0.8 - 1.2) 1.1 PTT (Sky) (25.0 - 39.5 Seconds) 29.7 PT Patient/Control Mix (9.3 - 12.9 SECONDS) 12.0 Laboratory Tests 11/05 228 Hematology WBC (4.5 - 11.0 x10 3/uL) 12.0 H RBC (4.00 - 5.60 x10 6/uL) 2.97 L Hgb (12.5 - 16.9 g/dL) 7.9 L Hct (37.5 - 50.7 %) 25.1 L MCV (81.0 - 99.0 fL) 84.5 MCH (27.0 - 33.0 pg) 26.6 L MCHC (33.0 - 37.0 g/dL) 31.5 L RDW (11.5 - 14.5 %) 20.5 H Plt Count (150 - 400 x10 3/uL) 250 MPV (7.0 - 9.0 fL) 9.9 H Radiology data:Recent Impressions:CAT SCAN - CTA ABD PEL W CONT 11/05 0324 Report Impression - Status: SIGNED Entered: 11/06/20233 IMPRESSION: Mild pancolitis. Distal small bowel ileus. Extensive irregular bladder wall thickening and mild strandingconsistent with acute on chronic cystitis. Given the irregularity inthe bladder wall, underlying malignancy is not excluded. Fullness in the renal collecting systems and ureters likely from thebladder wall thickening. Impression By: Salena - Mavis Robles M.D. Results: labs reviewed, vital signs reviewed, vital signs stable, current med profile rev'd Treatment Prophylaxis Treatment ProphylaxisOxygen: room air Diagnosis, Assessment PlanPlan discussed with: patient, admitting physician, consultants, nurse Code Status/Resusc. DiscussionCode status: full code Free Text DxA P NotesFree Text DxA P Notes:Assessment and Plan: Acute GI Bleed.Melena.Hypokalemia.UMESH due to GI bleed.Mild pancolitis.Distal small bowel ileus.HX of HTN, HLD and CAD. Plan: Floor.We will transfuse blood.Monitor H H.Pain meds.Antiemetics.GI consult for bleed.PPI.FOllow labs and replace as needed.COntinue Home meds.PT and OT.Monitor. at 0649 at 2010 RPT #:[id number] OF REPORTHPHistory and physical mpwqrjmrwio5040-47-60R04:44:00G.[id number] AVAvailable for patient lhfnZCNQKQYSCFYIDH3521-74-86R15:50:13 [facility] 2023-11-06 05:48:00 [id number] 89zvo51v0Dh+YEStrFJqlQCaf1z6l XcM1dtnyaEWfqSwXR8NCX4FH9MS0578-54-65P45:48:00 [facility] ([facility])EMERGENCY PROVIDER REPORTREPORT#:[id number] REPORT STATUS: SignedDATE:11/06/23 TIME: 0548 PATIENT: KAYLEE LEZAMA UNIT #: [id number]#: [id number] [address]: 63 SEX: M PCP PHYS: Piter Chavez MDSERVICE AUTHOR: Bernadette Laura MD * ALL edits or amendments must be made on the electronic/computer document * HPI-GI Bleed/Rectal Prob Free Text HPI NotesFree Text HPI NotesPatient ia a 63-year-old with a past medical history of hypertension with lipidemia CAD presenting to the emergency department from skilled nursing for bloody stools. The patient had multiple episodes for the past few days and in large amounts today including bright red blood with clots. He is complaining oflower abdominal discomfort. Unsure of anticoagulation. Per skilled nursing paperwork appears to be on aspirin and Plavix he states he has had similar symptoms in the past a workup was done including what he thinks is a colonoscopy. Patient is however not a comprehensive historian. Of note skilled nursing reported hypotension prior to calling EMS. GeneralInitial Greet Date/Time 11/06/23 0224 PresentationChief Complaint Stool bright red blood Review of Systems ROS StatementsAll systems rev neg except as marked. Free Text ROS NotesFree Text ROS NotesAbdominal pain, blood in stool Past Medical History - AdultStated Complaint GI BLEEDAllergiesCoded Allergies:No Known Drug Intolerances (UNKNOWN 02/03/22) GENERIC Allergy: NO KNOWN ALLERGIESNot Converted 80. See Text. (UNKNOWN 02/03/22) GENERIC Allergy: PHA: Home MedicationsActive ScriptsCLOPIDOGREL (PLAVIX) 75 MG PO DAILY CLOPIDOGREL (PLAVIX) 75 MG PO DAILY #30 TAB Prov: 02/16/22ALBUTEROL (PROAIR HFA 90 MCG/ACT 8.5 GM) 2 PUFF INH RTQ4H PRN PRN DYSPNEA/WHEEZING ALBUTEROL (PROAIR HFA 90 MCG/ACT 8.5 GM) 2 PUFF INH RTQ4H PRN PRN DYSPNEA/WHEEZING #1 GM Prov: 02/16/22LOSARTAN 100 MG PO DAILY LOSARTAN 100 MG PO DAILY #30 TAB Prov: 02/16/22hydrALAZINE 50 MG PO Q8HR hydrALAZINE 50 MG PO Q8HR #30 TAB Prov: 02/16/22ASPIRIN EC (ECOTRIN) 81 MG PO DAILY ASPIRIN EC (ECOTRIN) 81 MG PO DAILY #30 TAB Prov: 02/16/22INSULIN GLARGINE (LANTUS SOLOSTAR (15mL)) 24 UNITS SUBQ BEDTIME INSULIN GLARGINE (LANTUS SOLOSTAR (15mL)) 24 UNITS SUBQ BEDTIME #2 ML Prov: 02/16/22 Reported MedicationsamLODIPine (NORVASC) 10 MG PO DAILY amLODIPine (NORVASC) 10 MG PO DAILY #30 ATORVASTATIN (LIPITOR) 80 MG PO BEDTIME ATORVASTATIN (LIPITOR) 80 MG PO BEDTIME #30 OMEPRAZOLE ER 20 MG PO BID Calculated Suicide Risk (nurs) No riskAdditional Medical Historyaccurate pmh unable to obtain, unreliable historian, lack of paperwork from transfer facility in chartAdditional Surgical Historyaccurate psh unable to obtain, unreliable historian, lack of paperwork from transfer facility in chartFamily History:Denies: Diabetes, Heart disease. Alcohol Use Alcohol use (significant in the past)Drug Use Denies recreational drugsSmoking status for patients 13 years old or older: Current every day smoker Physical Exam Vital SignsVital SignsFirst Documented: Result Date Time Pulse Ox 97 11/05 0226 B/P 103/53 11/05 0226 B/P Mean 69 11/05 225 O2 Delivery Room air 11/05 225 Temp 37.7 11/05 225 Pulse 83 / 0226 Resp 20 11/05 225 Last Documented: Result Date Time Pulse Ox 100 11/05 0321 B/P 133/56 11/05 0321 B/P Mean 81 11/05 320 O2 Delivery Room air 11/05 320 Pulse 77 11/05 320 Resp 20 11/05 320 Temp 37.7 11/05 225 Review of Vital Signs Reviewed Free Text PE NotesFree Text PE NotesGeneral/Const Awake, Alert, No acute distress, nontoxicHead Atraumatic, NormocephalicEars/Nose/Throat Airway patentNeck Neck SuppleResp/Chest Breath sounds NL, No respiratory distress, No rales, No rhonchi, No wheezingCardiovascular Heart rate NL, Regular rhythm, Heart sounds NLAbdomen/GI Soft, mild lower abdominal tenderness, No distention. Rectal exam with brightred blood mixed in with stoolMS No extremity swelling, NO gross deformitySkin Warm, DryNeurologic Moving all extremities, Speech NLPsychiatric Affect NL, Mood NL Interpretation Diagnostics Lab Results InterpretationResultsLaboratory Tests 11/06/23 0229:[Embedded Image Not Available]Laboratory Tests: 11/05 022 Chemistry Sodium (134 - 147 mEq/L) 136 Potassium (3.4 - 5.0 mEq/L) 3.4 Chloride (100 - 108 mEq/L) 106 Carbon Dioxide (21 - 33 mEq/l) 23 Anion Gap (0 - 20) 10 BUN (7 - 25 mg/dL) 20 Creatinine (0.6 - 1.3 mg/dL) 1.3 Glomerular Filtr Rate (80 - 90) 61.3 L Glucose (77 - 141 mg/dL) 168 H Lactic Acid (0.4 - 1.9 mmol/L) 0.9 Calcium (8.0 - 10.5 mg/dL) 8.5 Total Bilirubin (0.0 - 1.0 mg/dL) 0.30 Direct Bilirubin (0.1 - 0.3 MG/DL) 0.10 Indirect Bilirubin (MG/DL) 0.20 AST (8 - 34 IUnit/L) 12 ALT (10 - 49 IUnit/L) 10 Total Alk Phosphatase (20 - 125 IUnit/L) 137 H Total Protein (6.4 - 8.2 g/dL) 7.2 Albumin (3.4 - 5.0 g/dL) 2.60 L Lipase (13 - 57 U/L) 30 Coagulation INR (0.8 - 1.2) 1.1 PTT ([place]) (25.0 - 39.5 Seconds) 29.7 PT Patient/Control Mix (9.3 - 12.9 SECONDS) 12.0 Hematology WBC (4.5 - 11.0 x10 3/uL) 12.0 H RBC (4.00 - 5.60 x10 6/uL) 2.97 L Hgb (12.5 - 16.9 g/dL) 7.9 L Hct (37.5 - 50.7 %) 25.1 L MCV (81.0 - 99.0 fL) 84.5 MCH (27.0 - 33.0 pg) 26.6 L MCHC (33.0 - 37.0 g/dL) 31.5 L RDW (11.5 - 14.5 %) 20.5 H Plt Count (150 - 400 x10 3/uL) 250 MPV (7.0 - 9.0 fL) 9.9 H Recent Impressions:CAT SCAN - CTA ABD PEL W CONT 11/05 0324 Report Impression - Status: SIGNED Entered: 11/06/2023 0413 IMPRESSION: Mild pancolitis. Distal small bowel ileus. Extensive irregular bladder wall thickening and mild strandingconsistent with acute on chronic cystitis. Given the irregularity inthe bladder wall, underlying malignancy is not excluded. Fullness in the renal collecting systems and ureters likely from thebladder wall thickening. Impression By: [email or web address] - Mavis Robles M.D. Lab Imaging StatementLaboratory radiographic studies reviewed and considered in the medical decision-making. Re-Evaluation MDM Free Text MDM NotesFree Text MDM NotesPatient is 63-year-old here with blood in stool. Initial report of hypotension however upon arrival the patient is hemodynamically stable. Concern for GI bleed, based on presentation likely lower. Differentials include diverticular bleed internal hemorrhoids AV malformation colitis rapid upper GI bleed including ulcers. Will obtain imaging to look for sources of active bleed. Patient will be started on Protonix. Lab studies including hemoglobin will be ordered and will transfuse as needed. Re-Evaluation/Progress #1Text/Dict NoteHemoglobin 7.9. Large drop from last known baseline around 11. Patient continues to have multiple large bowel movements which are bloody in the emergency department. Will discuss with and consult GI. Currently hemodynamically stable. Will admitpatient to the IMCU, Discussed results with the patient as well as the plan to admit. Patient expressed understanding and agreement with the plan. Tissue Perfusion ReassessmentPatient tissue perfusion reassessment completed. ED CourseMedication(s) OrderedMedication(s) Ordered:Central Nervous System Agents Sig/Gagandeep Start time Last Medication Dose Route Stop Time Status Admin Morphine Sulfate 4 MG X1ED STA 11/05 0408 DC IV 11/05 0409 Diagnostic Agents Sig/Gagandeep Start time Last Medication Dose Route Stop Time Status Admin Iopamidol 100 ML .STK-MED ONE 11/05 0326 DC 05/ IV / 0327 0326 Electrolytic, Caloric, And Vu Sig/Gagandeep Start time Last Medication Dose Route Stop Time Status Admin Sodium Chloride 10 ML ASDIR PRN 11/05 0245 AC / IV 02/03 0244 0316 Sodium Chloride 1,000 ML X1ED STA 11/05 0231 DC 05/ IV / 0330 0317 Gastrointestinal Drugs Sig/Gagandeep Start time Last Medication Dose Route Stop Time Status Admin Pantoprazole Sodium 80 MG X1ED STA 11/05 0231 DC 05/06 IV 05/ 0232 0316 Patient Discharge Departure Vital Signs/ConditionVital SignsFirst Documented: Result Date Time Pulse Ox 97 05/ 0226 B/P 103/53 05/ 0226 B/P Mean 69 05/ 0226 O2 Delivery Room air 05/ 0226 Temp 37.7 05/ 0226 Pulse 83 05/ 0226 Resp 20 05/ 0226 Last Documented: Result Date Time Pulse Ox 100 05/ 0321 B/P 133/56 05/ 0321 B/P Mean 81 05/06 0321 O2 Delivery Room air 05/ 0321 Pulse 77 05/06 0321 Resp 20 05/ 0321 Temp 37.7 05/06 0226 All vital signs available at the time of this entry have been reviewed. Clinical ImpressionClinical ImpressionPrimary Impression: GI bleedSecondary Impressions: Blood loss anemia Disposition DecisionHospitalize Hosp Physician Name Paige Holloway MD Hosp Physician Hospitalist Request Time 552 Request Date 11/06/23 )( Accepts Hospitalization Yes )( Reason for HospitalizationGI bleed )( Accepted Time 552 )( Accepted Date 11/06/23 Call Information will see patient Discharge/Care Plan(Auto) PrescriptionsCurrent Visit ScriptsPANTOPRAZOLE DR (PROTONIX) 40 MG PO BID@0600,[address] (PROTONIX) 40 MG PO BID@0600,1800 #60 TAB Ref 2 Admit NoteI have spoken with the patient and/or caregivers. I have explained the patient'scondition, diagnoses and treatment plan based on the information available to meat this time. I have answered the patient's and/or caregiver's questions and addressed any concerns. The patient and/or caregivers have as good an understanding of the patient's diagnosis, condition and treatment plan as can beexpected at this point. The patient has been stabilized within the capability ofthe emergency department. The patient will be transported for further care and management or will be moved to an observation or inpatient service. I have communicated with the staff or medical practitioner taking over this patient's care. Critical CareTime Spent (minutes): 35Services Performed Patient management by me, Time spent at bedside, Reviewing test results, Reviewing imaging, Discussing patient care, Documentation in recordSeparately billable procedures excluded from time.Patient was critically ill due to:Blood loss anemi, GI bleedMy treatment and management were:Lab, imaging, EKG interpretation GI bleed management blood transfusion CC Note 2The high probability of sudden, clinically significant deterioration in the patient's condition required the highest level of my preparedness to intervene urgently. The services I provided to this patient were to treat and/or prevent clinically significant deterioration that could result in severe disability or . Services included the following: chart data review, reviewing nursing notes and/or old charts, documentation time, animal nutrition consultant collaboration regarding findings and treatment options, medication orders and management, direct patient care, re-evaluations, vital sign assessments and ordering, interpreting and reviewing diagnostic studies/lab tests. Aggregate critical care time was 35 minutes, which includes only time during which I was engaged in work directly related to the patient's care, as describedabove, whether at the bedside or elsewhere in the Emergency Department. It did not include time spent performing other reported procedures or the services of residents, students, nurses or physician assistants. at 1041RPT #:[id number] OF REPORTSeton Medical Center [facility] department snattv1987-27-30I42:48:00G.[id number] ilable for patient gyrnFSKEOMPJSASZJP9315-19-08C94:42:21 [facility] 2022-02-17 17:55:00 [id number] SMq/0sd3gUcOemodTm6OkQhVg3Qbn 4lukf4ukA6eTWluXs6iRA5NiPp39685-68-61Y25:55:00 [facility] ([facility] discharge summaryreport#:[id number] report status: signeddate:02/17/22 time: 1754 patient: kaylee lezama unit #: [id number]#: [id number] [address]: [address] age: 61 sex: m attend: maximilian sepulveda [facility] dt: 02/03/22 author: maximilian sepulveda md * all edits or amendments must be made on the electronic/computer document * general informationproblem list/a p: 1. bilateral carotid artery stenosis a p - s/p redo right cea - continue asa and plavix. 2. acute cerebrovascular accident (cva) due to occlusion of right carotid artery a p - new mri brain revealed: areas of acute infarction seen on prior study dated 02/04/2022 are again noted with multiple areas of new acute infarction in the right mca distribution and watershed distribution on the right. 2. no developing intracranial hemorrhage. no hydrocephalus. impression by: [email or web address] - brady puentes md - patient with sig left hemiparesis, but marked ataxia, as per pt. - continue asa, plavix, statin, and pt/ot. 3. acute renal failure superimposed on stage 3 chronic kidney disease a p - arf resolved, and cr appears to be at baseline. 4. diabetes a p - on ozympic at home w zigduo, amaryl and metformin - currently on lantus, 24 still hyperglycemic continue ssi 5. hld (hyperlipidemia) a p - continue high intensity statin 6. htn (hypertension) a p - continue other anti-hypertensive agents. 7. pvd (peripheral vascular disease) a p - arterial doppler suggests severe pad involving bilateral le. left fem pop graft is patent. - continue asa and plavix. 8. chronic ulcer of left leg a p - xray negative for bony involvement. - wound culture: staph epi; will d/c antibiotics and continue local wound care. 9. hyponatremia a p - slight worsenind after surgery. - will d/c iv fluid. discharge date: 02/16/22discharge diagnosis:as abovehospital course: 1. bilateral carotid artery stenosis - s/p redo right cea - continue asa and plavix. 2. acute cerebrovascular accident (cva) due to occlusion of right carotid artery - new mri brain revealed: areas of acute infarction seen on prior study dated 02/04/2022 are again noted with multiple areas of new acute infarction in the right mca distribution and watershed distribution on the right. 2. no developing intracranial hemorrhage. no hydrocephalus. impression by: [email or web address] - brady puentes md - patient with sig left hemiparesis, but marked ataxia, as per pt. - continue asa, plavix, statin, and pt/ot. 3. acute renal failure superimposed on stage 3 chronic kidney disease - arf resolved, and cr appears to be at baseline. 4. diabetes - on ozympic at home w zigduo, amaryl and metformin - currently on lantus, 24 still hyperglycemic continue ssi 5. hld (hyperlipidemia) - continue high intensity statin 6. htn (hypertension) - continue other anti-hypertensive agents. 7. pvd (peripheral vascular disease) - arterial doppler suggests severe pad involving bilateral le. left fem pop graft is patent. - continue asa and plavix. 8. chronic ulcer of left leg - xray negative for bony involvement. - wound culture: staph epi; will d/c antibiotics and continue local wound care. 9. hyponatremia - slight worsenind after surgery. - will d/c iv fluid. consultants: cardiology, cardiovascular surgery, neurology free text dxa p notesfree text dxa p notes:02/14pt seemed more confused this afternoon, then this ammri head to be donestill had radial art lineplan ipr if mri head okseems more ataxic02/15mri suggests more stroke on the r side mca distribution, ipr denied due to lack of benefitsplan to dc home, if family acceptscm not able to get hold of familydw cv teamadjust insulinpt is still in sicu02/16the sister dreesed the pt and put him in the wheelchairall his prescriptions sent to help ptsister says she works as home health aid and is able to help her brother better closer to homeshe will take him to pcpsister called after discharge saying bs 350 and wanted insulin brand changed, which was doneshe is reminded tro seek help gustavo closer to home consultants: cardiology, cardiovascular surgery, neurology free text dxa p notesfree text dxa p notes:02/14pt seemed more confused this afternoon, then this ammri head to be donestill had radial art lineplan ipr if mri head okseems more ataxic02/15mri suggests more stroke on the r side mca distribution, ipr denied due to lack of benefitsplan to dc home, if family acceptscm not able to get hold of familydw cv teamadjust insulinpt is still in sicu02/16the sister apparently wants him to go home amadw cv teamwill try to set up home healthlantus 24pt has sig weakness left hand, unchanged from several days med rec med recdischarge meds:stop taking the following medications:dapagliflozin/metformin 10/1,000 mg (xigduo xr 10/1,000 mg) 10 mg-1,000 mg tab.er.24h 1 tablet oral daily. metformin (glucophage) 1,000 mg tab 1,000 milligram oral twice daily. gabapentin (neurontin) 100 mg cap 200 milligram oral twice daily. glimepiride (amaryl) 4 mg tab 4 milligram oral daily. [ozempic] unknown inj unknown dose weekly continue taking these medications:omeprazole er (omeprazole er) 20 mg cap.dr 20 milligram oral twice daily. albuterol (proair hfa 90 mcg/act 8.5 gm) 90 mcg inhaler 2 puff inhalation rt - every 4 hours as needed. as needed for dyspnea/wheezing qty = 1 this prescription has been renewed losartan (cozaar) 100 mg tab 100 milligram oral daily. qty = 30 this prescription has been renewed start taking the following new medications:clopidogrel (plavix) 75 mg tab 75 milligram oral daily. qty = 30 no refills hydralazine (apresoline) 25 mg tab 50 milligram oral every 8 hours. qty = 30 no refills aspirin ec (ecotrin) 81 mg tab.ec 81 milligram oral daily. qty = 30 no refills insulin glargine (lantus solostar (15ml)) 100 unit/ml (3 ml) pen.injctr 24 units subcutaneous bedtime. qty = 2 no refills the following medications have been changed:old:amlodipine (norvasc) 5 milligram oral daily. new:amlodipine (norvasc) 5 mg tab 10 milligram oral daily. qty = 30 old:atorvastatin (lipitor) 40 milligram oral bedtime. new:atorvastatin (lipitor) 40 mg tab 80 milligram oral bedtime. qty = 30 objectivevs/i olast documented: result date time o2 delivery nasal cannula 02/16 1200 o2 flow rate 2 02/16 1200 pulse ox 99 02/16 0846 fio2 28 02/16 0846 b/p 131/60 02/16 0501 b/p mean 87 02/16 0501 pulse 62 02/16 0501 resp 12 02/16 0501 temp 97.8 02/16 0400 general appearance: awakehead/eyes: atraumatic, normal conjunctiva/sclera, normocephalic, perrl, left face droopent: poor dentition, moist mucosal membranes, normal ear left, normal ear rightneck: r neck incision area okcardiovascular: normal heart sounds, regular rate rhythmrespiratory: aerating well, clear to auscultation, symmetric expansionabdomen: distended, non-tender, normal bowel sounds, soft, no distentiongenitourinary: no urinary catheterrectal: not indicatedextremities: no clubbing, no cyanosis, no edemamusculoskeletal: normal inspection, painless range of motion, no muscle spasmneuro/amusement ride inspector: alert, oriented x 3, normal speech, left sided weakness2/5skin: dry, left anterior lower leg small healing wound; no drainage noted on dressing.wound/incision: location:right side of neck. site condition: dressing clean drypsychiatry: normal affect, normal mood discharge instructionsadditional discharge routines: pcp follow-up, attending follow-up quality: discharge current medicationscurrent medication review:i attest that the foregoing medication list in the medical record is true, accurate, and complete to the best of my knowledge. electronically signed by maximilian sepulveda md on 02/17/22 at 1759 [facility] #:[id number] of reportDSDischarge vpbyhle5327-02-58Y67:55:00Z.[id number] ailable for patient jhgnEEPUVAXZXOZSCL3179-89-14F97:59:59 [facility] 2022-02-16 21:23:00 [id number] 1oFRdpR1j2e6P7z7yGi/v/tgM1X8495-58-29X37:23:37225 7-0139 [place] [id number] patient name: kaylee lezama admit date: 02/03/22account no: [id number] room no: z.si06 age: 61 report type: progress note sex: m admitting physician:maximilian sepulveda md attending physician:maximilian sepulveda md date: 02/16/2022 neurology followup attending physician: maximilian sepulveda md subjective: the patient is well alert and awake and he denies any headache orany problem with the speech or swallowing. the patient states he can move hisleft arm more than yesterday. he also raises his left lower extremity above thebed. as per the staff, the patient is having physical and occupational therapy. the patient is not having any abnormal movement or any seizure-like activity. objective:vital signs: blood pressure 131/60, respiration 12, pulse 62, and eivjyaaszvy13.8.heent: conjunctivae clear. throat; not congested.neck: supple.cardiovascular system: both the heart sounds present. no murmur.respiratory system: clear to auscultation.abdomen: soft, moves with respiration.extremities: no pedal edema.neurological: the patient is well alert and awake. he is oriented to place,person, month, and year. follows commands. speech is clear. cranial nerveexamination; ocular movements were intact. there is a very mild left facialasymmetry noted. tongue is in the midline. motor examination; the patientraises the right arm and right leg well. he also able to mildly raise his leftupper extremity above the bed, but he is unable to bring it up to his head. heraises the left lower extremity above the bed. no abnormal movements noted. sensory examination; appreciates touch and pain over all 4 extremities. impression:1. 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 severe right carotid stenosis, status post right carotid endarterectomy.3. renal insufficiency.4. uncontrolled diabetes mellitus.5. severe hyperlipidemia.6. the patient is having increased left upper extremity weakness, whichappeared to be secondary to new right middle cerebral artery territoryinfarction, but the patient shows improvement in his left upper extremityweakness today. recommendations: patient name: kaylee lezama 1. discussed with the patient about his improvement. continuous physical andoccupational therapy will bring up his strength on the left side. i also toldhim he will be benefited with inpatient rehabilitation. he understood.2. continuation of aspirin and plavix.3. continuation of atorvastatin 80 mg at bedtime.4. the patient may be transferred to inpatient rehabilitation once accepted. dictated by: feng nowak md wt: pn:z.gautam/miryam/ntsdd: 02/16/2022 21:23:08dt: 02/16/2022 21:47:02conf#: [id number]/did#: [id number] authenticated by feng nowak on 03/01/2022 05:46:03 pm electronically signed by jerry nowak md on 03/01/22 at 0546 patient name: kaylee lezama [id number]:47:00Z.[id number] ble for patient [id number]:46:42 [facility] 2022-02-16 15:11:00 [id number] krVmIGGVEOpiqGPj5dhdzAb2NHsUL TWR/1zjYT0Focr2jO/OVNnDJfh08043-01-78M73:11:00 [facility] ([facility]ospital[facility] Progress NoteREPORT#:[id number] REPORT STATUS: SignedDATE:02/16/22 TIME: 1511 PATIENT: AKYLEE LEZAMA UNIT #: [id number]#: [id number] [address]: [address] AGE: 61 SEX: M ATTEND: Maximilian Sepulveda MDA AUTHOR: Maximilian Sepulveda MD * ALL edits or amendments must be made on the electronic/computer document * SubjectiveChief complaint:S/P CEA R, Left UE very weakHPI:Patient seein in SICU; per nurse pt seems more confused, left side UE seems weaker. family wants to take him home Review of SystemsUnable to obtain due to:pt seems more confused Objective GeneralVS/I O:Vital Signs: Date Time Temp Pulse Resp B/P B/P Pulse O2 O2 Flow FiO2 Mean Ox Delivery Rate 02/16 1200 Nasal 2 cannula 02/16 0846 99 Nasal 2 28 cannula 02/16 0800 Nasal 2 cannula 02/16 0501 62 12 131/60 87 95 02/16 0431 65 13 123/57 80 98 02/16 0401 65 13 140/63 90 98 02/16 0400 97.8 02/16 0400 64 10 96 02/16 0331 70 15 142/59 85 97 02/16 0316 72 12 117/57 82 100 02/16 0315 74 14 100 02/16 0300 76 12 96 02/16 0230 90 20 98 02/16 0200 93 31 98 02/16 0130 73 13 94 02/16 0115 71 15 98 02/16 0100 71 14 95 02/16 0045 72 17 93 02/16 0030 73 13 98 02/16 0015 93 19 98 02/16 0000 97.8 02/16 0000 72 15 93 02/15 2213 76 19 99 02/15 2200 75 18 98 02/15 2145 78 20 98 02/15 2130 84 21 99 02/155 86 20 98 02/15 2110 99 Room air 21 02/15 2100 84 23 97 02/15 2045 92 100 02/15 2030 90 97 02/15 2015 94 99 02/16 2000 97.6 02/16 2000 Nasal 2 cannula 02/16 2000 88 98 02/15 1945 88 99 02/15 1930 77 99 02/15 1915 80 99 02/15 1912 81 96 02/15 1900 85 100 02/15 1800 93 27 97 02/15 1732 95 21 129/84 100 96 02/15 1643 136/63 91 95 02/15 1602 90 20 160/76 109 02/15 1600 97.5 24 hour I O ending at 0700: 02/16 0700 02/15 1900 Intake Total Output Total 1050 370 Balance -1050 -370 Output, Urine 1050 370 PATIENT WEIGHT: Weight (lb): 190Weight (oz): 6.4Weight (kg): 86.364 Medications:Active Meds + DC'd Last 24 HrsHydralazine HCl (APRESOLINE) 50 MG Q8HR PO Famotidine (PEPCID) 20 MG Q12HR PO Gabapentin (NEURONTIN) 100 MG 2100 PO (DC) Insulin Human Lispro (HumaLOG) MEDIUM DOSE SLIDING SCALE AC HS SUBQ Aspirin (ASPIRIN EC) 81 MG DAILY PO Wound Care/Dressing Products ([facility]) 1 LEONEL DAILY TOPICAL (CKD) Mupirocin (BACTROBAN NASAL - ADULT ICU) 1 APPLIC BID NASAL Benzocaine/Menthol (Cepacol Sore Throat Lozenge) 1 TAB Q2H PRN PRN MM (CKD) Bisacodyl (BISACODYL SUPP) 10 MG ASDIR PRN RECTAL Calcium Gluconate/Sodium Chloride (Calcium Gluconate 1 GM/NS 100 mL) 100 ML ASDIR PRN IV Hydrocodone Bitart/Acetaminophen (NORCO 5/325 TABLET (C-II)) 1 TAB Q4H PRN PRN PO Hydrocodone Bitart/Acetaminophen (NORCO 5/325 TABLET (C-II)) 2 TAB Q4H PRN PRN PO Meperidine HCl (DEMEROL (C-II)) 25 MG Q4H PRN PRN IM Meperidine HCl (DEMEROL (C-II)) 50 MG Q4H PRN PRN IM Nicardipine HCl (CARDENE I.V.) 25 MG ASDIR PRN IV (CKD) Sodium Chloride (SODIUM CHLORIDE 0.9%) 250 MLOndansetron HCl (ZOFRAN) 4 MG Q8H PRN PRN IV Potassium Chloride (Potassium Chloride) 50 ML ASDIR PRN IV Amlodipine Besylate (NORVASC) 10 MG DAILY PO Insulin Glargine (Lantus/Semglee) 22 UNITS BEDTIME SUBQ Diphenoxylate HCl/Atropine (LOMOTIL (C-V)) 2 UDTAB Q6H PRN PRN PO Levothyroxine Sodium (Synthroid) 12.5 MCG DAILY@0630 PO Losartan Potassium (COZAAR) 100 MG DAILY PO Clopidogrel Bisulfate (PLAVIX) 75 MG DAILY PO Atorvastatin Calcium (LIPITOR) 80 MG BEDTIME PO Nicotine (NICODERM) 14 MG DAILY PRN PRN TRANSDERM Acetaminophen (TYLENOL) 650 MG Q6H PRN PRN PO Dextrose/Water (DEXTROSE 50% IN WATER) 12.5 GM ASDIR PRN IV Dextrose/Water (DEXTROSE 50% IN WATER) 25 GM ASDIR PRN IV Hydralazine HCl (APRESOLINE) 10 MG Q6H PRN PRN IV Physical ExamHead/Eyes: atraumatic, normal conjunctiva/sclera, normocephalic, PERRLENT: poor dentition, moist mucosal membranes, normal ear left, normal ear rightNeck: R neck incision area okCardiovascular: normal heart sounds, regular rate rhythmRespiratory: aerating well, clear to auscultation, symmetric expansionAbdomen: distended, non-tender, normal bowel sounds, soft, no distentionGenitourinary: no urinary catheterRectal: not indicatedExtremities: no clubbing, no cyanosis, no edemaMusculoskeletal: normal inspection, painless range of motion, no muscle spasmNeuro/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 Site Condition: dressing clean dryPsychiatry: normal affect, normal mood Diagnosis, Assessment PlanProblem List/A P: 1. Bilateral carotid artery stenosis - S/P Redo right CEA - Continue ASA and Plavix. 2. Acute cerebrovascular accident (CVA) due to occlusion of right carotid artery - New MRI brain revealed: Areas of acute infarction seen on prior study dated 02/04/2022 are again noted with multiple areas of new acute infarction in the right MCA distribution and watershed distribution on the right. 2. No developing intracranial hemorrhage. No hydrocephalus. Impression By: [email or web address] - Brady Puentes MD - Patient with sig Left hemiparesis, but marked ataxia, as per PT. - Continue ASA, Plavix, statin, and PT/OT. 3. Acute renal failure superimposed on stage 3 chronic kidney disease - ARF resolved, and Cr appears to be at baseline. 4. Diabetes - On ozympic at home w Zigduo, amaryl and metformin - Currently on lantus, 24 still hyperglycemic continue SSI 5. HLD (hyperlipidemia) - Continue high intensity statin 6. HTN (hypertension) - Continue other anti-hypertensive agents. 7. PVD (peripheral vascular disease) - Arterial doppler suggests severe PAD involving bilateral LE. Left Fem Pop graft is patent. - Continue ASA and Plavix. 8. Chronic ulcer of left leg - Xray negative for bony involvement. - Wound culture: Staph Epi; will d/c antibiotics and continue local wound care. 9. Hyponatremia - Slight worsenind after surgery. - Will d/c IV fluid. Consultants: cardiology, cardiovascular surgery, neurology Free Text DxA P NotesFree text DxA P notes:02/14Pt seemed more confused this afternoon, then this amMRI head to be doneStill had radial art lineplan IPR if MRI head okseems more ataxic02/15MRI suggests more stroke on the R side MCA distribution, IPR denied due to lack of benefitsplan to DC home, if family acceptsCM not able to get hold of familyDW CV teamAdjust InsulinPt is still in SICU02/16The sister apparently wants him to go home AMADW CV teamWill try to set up home healthlantus 24Pt has sig weakness left hand, unchanged from several days Quality: Gen Med Crit Care VTE ProphylaxisVTE prophylaxis initiated: yes Current MedicationsCurrent medication review:I attest that the foregoing medication list in the medical record is true, accurate, and complete to the best of my knowledge. at 1520 [facility] #:[id number] OF REPORTPRProgress dhwp3403-14-59U05:11:00Z.[id number] able for patient wpfoJCJLYFYGIEKDAC4898-32-77G68:20:42 [facility] 2022-02-16 14:48:00 [id number] rmNQdIkhXWULVrF5yAQIjRQaw9Yqr qYdWmZ5HbdnsBDWxxsesq+V1J5v4471-75-39T68:48:00 [facility] Progress NoteREPORT#:[id number] REPORT STATUS: SignedDATE:02/16/22 TIME: 1448 PATIENT: KAYLEE LEZAMA UNIT #: [id number]#: [id number] [address]UJQM: [address] AGE: 61 SEX: M ATTEND: Maximilian Sepulveda [facility] AUTHOR: Karel Burgess MD * ALL edits or amendments must be made on the electronic/computer document * Objective Physical ExamHead/eyes: atraumatic, normocephalicENT: moist mucous membranesNeck: supple/no meningismus, no JVDCardiovascular: murmur (SYs ), normal heart sounds, regular rate and rhythm, pedal pulses present, no murmurRespiratory: aerating well, clear to auscultation, normal breath sounds, symmetric expansionAbdomen: non-tender, normal bowel sounds, soft, no CVA tenderness, no distentionGenitourinary: no flank pain, no urinary catheterExtremities: non-tender, normal inspection, no edema, no swellingNeuro/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: left hemiparesis Diagnosis, Assessment PlanFree Text A P:Today No change in clinical statusBp controlled Pt/OT A/P # UMESH 2nd to pre- renal / Glucodiuresis 2nd to DKA resolved s/p Contrast in Feb 04:peak Cr 1.7 at [facility] SCr improved to 0.8-1.0avoid NSAID renal dose medciations continue losartan # PseduoHyponatremiaBS control cont to monitor # DM s/p DKA Mngt per primary team # HtnBP above goalHydralazine increased to 50 mg po tid # Carotid artery stenosis S/p R CEA on 02/11 pt now with lt sided weaknesscardiovascular following Pt/OT # Diarrhea Resolved Possibly due to ABx # Hypoakelmia and hypomagnesemia Replete prn total timwe spent 35moinute s, including documentation, reviewing labs and placing orders Consultants: cardiology, cardiovascular surgery, neurology at 1450 RPT #:[id number] OF REPORTPRProgress [id number]:48:00Z.[id number] able for patient icvwICPYGQYCYLRDKF3933-14-23E23:50:28 [facility] 2022-02-15 18:39:00 [id number] 541jghw3AKcj36qnZM6RTsDgDd2zu CYCzcLd11Z706F4eK37Jyvgq53q6115-07-95K19:39:29160 6-0105 [place] [address] patient name: kaylee lezama admit date: 02/03/22account no: [id number] room [facility]: [email or web address] age: 61 report type: progress note sex: m admitting physician:maximilian sepulveda md attending physician:maximilian sepulveda md date: 02/15/2022 attending physician: maximilian sepulveda md subjective: the patient is comfortably sitting in the chair. he denies anyheadache or dizziness or any problem with the speech or swallowing, but he isstill complaining of weakness of his left arm. the patient also says he wantsto go home. as per the staff, patient is not having any abnormal movement orseizure-like activity. the patient is having physical and occupational therapy. objective:vital signs: blood pressure 129/84, respiration 21, pulse 95, and ozvehepxemd13.5.heent: conjunctivae clear. throat; not congested.neck: supple.cardiovascular system: both the heart sounds present. no murmur.respiratory system: clear to auscultation.abdomen: soft, moves with respiration.extremities: no pedal edema.neurological: the patient is well alert and awake. oriented to place, person,month, and year. follows commands. speech is clear. cranial nerveexamination; ocular movements were intact. there is a left facial asymmetrynoted. motor examination, patient raises his right arm and right leg well. healso raises the left lower extremity above the bed, but he is having difficultyin moving his left upper extremity. no abnormal movements noted. sensoryexamination; appreciate touch and pain over all 4 extremities. laboratory data and diagnostic studies: glucose at bedside is 241. mri of thebrain reported with areas of acute infarction seen on prior study dated02/04/2022 are again noted with multiple areas of new acute infarction in theright mca distribution and watershed distribution on the right. no developingintracranial hemorrhage. no hydrocephalus. impression:1. 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 severe right carotid stenosis, status post right carotid endarterectomy.3. renal insufficiency.4. uncontrolled diabetes mellitus.5. severe hyperlipidemia.6. the patient's increased left upper extremity weakness appears to besecondary to new right mca territory infarction. patient name: kaylee lezama recommendations:1. we will continue the aspirin and plavix as such at present.2. continuation of atorvastatin 80 mg at bedtime.3. continuation of physical, occupational, and speech therapy.4. the patient may be transferred to inpatient rehabilitation once cleared bythe vascular surgery service. dictated by: feng nowak md wt: pn:fidel/miryam/ntsdd: 02/15/2022 18:39:27dt: 02/15/2022 18:54:34conf#: [id number]/did#: [id number] authenticated by feng nowak on 03/01/2022 05:46:02 pm electronically signed by jerry nowak md on 03/01/22 at 0546 patient name: kaylee lezama qtey3105-54-13L33:54:00Z.[id number] ble for patient cuidLJPMTQUSEPUZGV5843-17-86E99:46:42 [facility] 2022-02-15 16:56:00 [id number] 2Sn/7n8sx7UnDSs/gqoGc+P7FqONd /7Cz8hQPUuB524smiiB+6dNn0Rm9252-70-89L85:56:00 [facility] progreport#:[id number] report status: signeddate:02/15/22 time: 1655 patient: kaylee lezama unit #: [id number]#: [id number] [address] age: 61 sex: m attend: maximilian sepulveda [facility] dt: 02/03/22 author: dang marina * all edits or amendments must be made on the electronic/computer document * generalpost-op: day 4status post:redo right cea subjectivepatient reports:no: complaints. nursing reports:yes: complaints. comments:the patient is seen oob- chairhe is awake and alert and follows commands. he reports having total weakness to his left upper and lower extremity. he has been eating well without any issues. he denies having any chest pain or sob review of systemsconstitutional:reports: generalized weakness. denies: chills, fatigue, fever. respiratory:denies: mata (dyspnea on exertion), sob. cardiovascular:denies: chest pain. neuro:reports: weakness (lle). objective generalvs/i o:last documented: result date time pulse ox 98 02/15 1502 b/p 150/80 02/15 1502 b/p mean 110 02/15 1502 pulse 89 02/15 1502 resp 22 02/15 1502 temp 36.2 02/15 1200 o2 delivery nasal cannula 02/15 0941 o2 flow rate 2 02/15 0941 fio2 21 02/14 2022 24 hour i o ending at 0700: 02/15 0700 02/14 1900 intake total output total 150 800 balance -150 -800 number voids 1 output, urine 150 800 patient weight: weight (lb): 190weight (oz): 6.4weight (kg): 86.364 medications:active meds + dc'd last 24 hrshydralazine hcl (apresoline) 50 mg q8hr po famotidine (pepcid) 20 mg q12hr po gabapentin (neurontin) 100 mg 2100 po insulin human lispro (humalog) medium dose sliding scale ac hs subq aspirin (aspirin ec) 81 mg daily po wound care/dressing products (medihoney) 1 leonel daily topical (ckd) mupirocin (bactroban nasal - adult icu) 1 applic bid nasal benzocaine/menthol (cepacol sore throat lozenge) 1 tab q2h prn prn mm (ckd) bisacodyl (bisacodyl supp) 10 mg asdir prn rectal calcium gluconate/sodium chloride (calcium gluconate 1 gm/ns 100 ml) 100 ml asdir prn iv hydrocodone bitart/acetaminophen (norco 5/325 tablet (c-ii)) 1 tab q4h prn prn po hydrocodone bitart/acetaminophen (norco 5/325 tablet (c-ii)) 2 tab q4h prn prn po meperidine hcl (demerol (c-ii)) 25 mg q4h prn prn im meperidine hcl (demerol (c-ii)) 50 mg q4h prn prn im nicardipine hcl (cardene i.v.) 25 mg asdir prn iv (ckd) sodium chloride (sodium chloride 0.9%) 250 mlondansetron hcl (zofran) 4 mg q8h prn prn iv potassium chloride (potassium chloride) 50 ml asdir prn iv amlodipine besylate (norvasc) 10 mg daily po insulin glargine (lantus/semglee) 22 units bedtime subq diphenoxylate hcl/atropine (lomotil (c-v)) 2 udtab q6h prn prn po levothyroxine sodium (synthroid) 12.5 mcg daily@0630 po losartan potassium (cozaar) 100 mg daily po clopidogrel bisulfate (plavix) 75 mg daily po atorvastatin calcium (lipitor) 80 mg bedtime po nicotine (nicoderm) 14 mg daily prn prn transderm acetaminophen (tylenol) 650 mg q6h prn prn po dextrose/water (dextrose 50% in water) 12.5 gm asdir prn iv dextrose/water (dextrose 50% in water) 25 gm asdir prn iv hydralazine hcl (apresoline) 10 mg q6h prn prn iv physical examgeneral appearance: alert, awake, oriented, no acute distresswound/incision: location: right neck wound site condition: dressing clean dry, no drainage, no erythemaneck: non-tender, no masses or swellingcardiovascular: bp/pulses equal bilat., normal heart sounds, regular rate rhythmrespiratory: aerating wellabdomen: soft, non-tender, no distentionextremities: no edemaneuro/amusement ride inspector: left hemiparesis, alert, oriented x 3 resultsfindings/data:laboratory tests 02/15 02/15 02/15 02/15 02/14 1553 1138 0749 0608 1951 chemistry poc glucose (60 - 99 mg/dl) 241 h 305 *h 202 h 192 h 301 *h diagnosis, assessment planfree text a p:severe recurrent kathe stenosish/o bilateral carotid endarterectomiess/p redo right ceaacute rcva with left hemiparesisdiabeteshypertensions/p mri of the brain- 1. areas of acute infarction seen on prior study dated 02/04/2022 are again noted with multiple areas of new acute infarction in the right mca distribution and watershed distribution on the right. 2. no developing intracranial hemorrhage. no hydrocephalus. plan: pt/otcontinue aspirin/plavixpt. encouraged to do physical therapyhe is insisting on being discharged home with his family when ready since he hasno rehab benefits. electronically signed by dang marina on 02/15/22 at 1814electronically signed by brady lerma md on 02/28/22 at 1911 rpt #:[id number] of reportPRProgress tkrw0998-11-38J78:56:00Z.[id number] able for patient hijvNRVFUYHLEDLJQL8580-99-17L66:14:36 [facility] 2022-02-15 13:38:00 [id number] u84PmFHqBcPu6sGkbPS4x1nirm0/S V90x+bwTNQFS2LepP3+NxlT0rNz4033-66-22E97:38:00 [facility] ([facility])Nephrology Progress NoteREPORT#:[id number] REPORT STATUS: SignedDATE:02/15/22 TIME: 1338 PATIENT: KAYLEE LEZAMA UNIT #: [id number]#: [id number] [address]-OHKT: [address] AGE: 61 SEX: M ATTEND: Maximilian Sepulveda [facility] AUTHOR: Karel Burgess MD * ALL edits or amendments must be made on the electronic/computer document * Objective Physical ExamGeneral appearance: alert, awakeHead/eyes: atraumatic, normocephalicENT: moist mucous membranesNeck: supple/no meningismus, no JVDCardiovascular: murmur (SYs ), normal heart sounds, regular rate and rhythm, pedal pulses present, no murmurRespiratory: aerating well, clear to auscultation, normal breath sounds, symmetric expansionAbdomen: non-tender, normal bowel sounds, soft, no CVA tenderness, no distentionGenitourinary: no flank pain, no urinary catheterExtremities: non-tender, normal inspection, no edema, no swellingNeuro/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: left hemiparesis Diagnosis, Assessment PlanFree Text A P:Today Alert and oriented Corrected sodium 136 Pt with lt sided weakenssnuerology F/U repeated MRI : no changes from recent study A/P # UMESH 2nd to pre- renal / Glucodiuresis 2nd to DKA resolved s/p Contrast in Feb 04:peak Cr 1.7 at [facility] SCr improved to 0.8-1.0avoid NSAID renal dose medciations continue losartan # PseduoHyponatremiaBS control cont to monitor # DM s/p DKA Mngt per primary team # HtnBP above goalHydralazine increased to 50 mg po tid # Carotid artery stenosis S/p R CEA on 02/11 pt now with lt sided weaknessMRI from 02/14 : no changes from 02/04 study which showed acute stroke # Diarrhea Resolved Possibly due to ABx # Hypoakelmia and hypomagnesemia Replete prn total timwe spent 65moinute s, including documentation, reviewing labs and placing orders Consultants: cardiology, cardiovascular surgery, neurology at 1341 RPT #:[id number] OF REPORTPRProgress eoal9284-62-05H67:38:00Z.[id number] able for patient uzpmQPMVSJTKRVBARN7401-74-76V18:42:07 [facility] 2022-02-15 09:59:00 [id number] ze6TmiDFxErcG7UP7/H2iTNm6oyGm g9LCsCt0V5v0/yU3FHPCPjxXiKf1641-35-22H61:59:00 [facility] ([facility])Hospitalist Progress NoteREPORT#:[id number] REPORT STATUS: SignedDATE:02/15/22 TIME: 958 PATIENT: KAYLEE LEZAMA UNIT #: [id number]#: [id number] [address] AGE: 61 SEX: M ATTEND: Maximilian Sepulveda AUTHOR: Maximilian Sepulveda MD * ALL edits or amendments must be made on the electronic/computer document * SubjectiveChief complaint:S/P CEA R, Left UE very weakHPI:Patient seein in SICU; per nurse pt seems more confused, left side UE seems weaker. DR Howell and Dr Lerma is aware, MRI noted Review of SystemsConstitutional:Denies: chills, fever. Respiratory:Denies: pleurisy, pleuritic pain. Cardiovascular:Denies: chest pain, MATA (dyspnea on exertion). Neuro:Reports: dizziness, focal weakness. Psych:Reports: confusion. Objective GeneralVS/I O:Vital Signs: Date Time Temp Pulse Resp B/P B/P Pulse O2 O2 Flow FiO2 Mean Ox Delivery Rate 08/16 1502 89 22 150/80 110 98 08/16 1402 73 14 101/55 73 86 08/16 1302 88 21 165/67 97 93 08/16 1202 87 23 169/72 104 96 08/16 1200 97.1 08/16 1102 90 22 159/112 127 98 08/16 1002 86 24 111/55 79 96 08/16 0941 98 Nasal 2 cannula 08/16 0902 78 10 110/68 78 97 08/16 0802 82 13 149/63 91 97 08/16 0702 84 18 160/70 100 96 08/16 0700 96.9 08/16 0700 Nasal 2 cannula 08/16 0402 87 22 174/78 112 95 08/16 0401 87 23 171/81 116 97 08/16 0358 78 14 178/76 109 93 08/16 0354 76 17 195/80 115 85 08/16 0335 80 15 157/73 105 92 08/16 0331 85 23 192/76 109 93 08/16 0322 88 24 190/76 109 93 08/16 0301 92 37 182/108 136 96 08/16 0231 80 18 164/70 101 94 08/16 0201 76 15 166/65 94 85 08/16 0131 88 28 171/74 106 94 08/16 0101 78 16 153/67 97 92 08/16 0031 85 27 150/63 91 94 08/16 0001 89 28 167/72 104 92 08/16 0000 96.8 08/15 2301 91 30 165/73 105 93 08/15 2249 90 23 136/69 97 95 08/15 2234 90 24 172/71 102 95 08/15 2231 89 33 187/72 104 98 08/15 2201 72 13 155/70 100 99 08/15 2138 88 14 174/75 108 94 08/15 2131 92 16 187/83 119 95 08/15 2101 96 28 151/73 105 95 08/15 2031 86 19 127/72 93 95 08/15 2022 93 Room air 21 08/15 2000 89 21 170/72 104 92 08/15 1999 97.2 08/15 1999 Nasal 2 cannula 08/15 1932 93 37 168/73 105 94 08/15 193 93 30 193/77 111 96 02/14 1901 90 25 161/72 103 91 02/14 1831 92 28 149/108 124 91 02/14 1801 88 24 157/72 104 95 02/14 1750 86 28 151/72 103 97 02/14 1701 87 21 156/67 96 92 02/14 1624 83 17 153/67 97 92 02/14 1601 85 21 170/73 105 93 02/14 1600 97.0 24 hour I O ending at 0700: 02/15 0700 02/14 1900 Intake Total Output Total 150 800 Balance -150 -800 Number Voids 1 Output, Urine 150 800 PATIENT WEIGHT: Weight (lb): 190Weight (oz): 6.4Weight (kg): 86.364 Medications:Active Meds + DC'd Last 24 HrsHydralazine HCl (APRESOLINE) 50 MG Q8HR PO Famotidine (PEPCID) 20 MG Q12HR PO Gabapentin (NEURONTIN) 100 MG 2100 PO Insulin Human Lispro (HumaLOG) MEDIUM DOSE SLIDING SCALE AC HS SUBQ Aspirin (ASPIRIN EC) 81 MG DAILY PO Wound Care/Dressing Products (MEDIHONEY) 1 LEONEL DAILY TOPICAL (CKD) Mupirocin (BACTROBAN NASAL - ADULT ICU) 1 APPLIC BID NASAL Benzocaine/Menthol (Cepacol Sore Throat Lozenge) 1 TAB Q2H PRN PRN MM (CKD) Bisacodyl (BISACODYL SUPP) 10 MG ASDIR PRN RECTAL Calcium Gluconate/Sodium Chloride (Calcium Gluconate 1 GM/NS 100 mL) 100 ML ASDIR PRN IV Hydrocodone Bitart/Acetaminophen (NORCO 5/325 TABLET (C-II)) 1 TAB Q4H PRN PRN PO Hydrocodone Bitart/Acetaminophen (NORCO 5/325 TABLET (C-II)) 2 TAB Q4H PRN PRN PO Meperidine HCl (DEMEROL (C-II)) 25 MG Q4H PRN PRN IM Meperidine HCl (DEMEROL (C-II)) 50 MG Q4H PRN PRN IM Nicardipine HCl (CARDENE I.V.) 25 MG ASDIR PRN IV (CKD) Sodium Chloride (SODIUM CHLORIDE 0.9%) 250 MLOndansetron HCl (ZOFRAN) 4 MG Q8H PRN PRN IV Potassium Chloride (Potassium Chloride) 50 ML ASDIR PRN IV Amlodipine Besylate (NORVASC) 10 MG DAILY PO Insulin Glargine (Lantus/Semglee) 22 UNITS BEDTIME SUBQ Diphenoxylate HCl/Atropine (LOMOTIL (C-V)) 2 UDTAB Q6H PRN PRN PO Levothyroxine Sodium (Synthroid) 12.5 MCG DAILY@0630 PO Losartan Potassium (COZAAR) 100 MG DAILY PO Clopidogrel Bisulfate (PLAVIX) 75 MG DAILY PO Atorvastatin Calcium (LIPITOR) 80 MG BEDTIME PO Nicotine (NICODERM) 14 MG DAILY PRN PRN TRANSDERM Acetaminophen (TYLENOL) 650 MG Q6H PRN PRN PO Dextrose/Water (DEXTROSE 50% IN WATER) 12.5 GM ASDIR PRN IV Dextrose/Water (DEXTROSE 50% IN WATER) 25 GM ASDIR PRN IV Hydralazine HCl (APRESOLINE) 10 MG Q6H PRN PRN IV Physical ExamGeneral appearance: alert, awake, no acute distress, pleasant, conversational, left facial droopHead/Eyes: atraumatic, normal conjunctiva/sclera, normocephalic, PERRLENT: poor dentition, moist mucosal membranes, normal ear left, normal ear rightNeck: R neck incision area okCardiovascular: normal heart sounds, regular rate rhythmRespiratory: aerating well, clear to auscultation, symmetric expansionAbdomen: distended, non-tender, normal bowel sounds, soft, no distentionGenitourinary: no urinary catheterRectal: not indicatedExtremities: no clubbing, no cyanosis, no edemaMusculoskeletal: normal inspection, painless range of motion, no muscle spasmNeuro/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 Site Condition: dressing clean dryPsychiatry: normal affect, normal mood ResultsFindings/Data:Laboratory Tests 02/15 02/15 02/15 02/14 02/14 1138 0749 0608 1951 1703 Chemistry POC Glucose (60 - 99 MG/DL) 305 *H 202 H 192 H 301 *H 175 H Radiology data:Recent Impressions:MAGNETIC RESONANCE IMAGING - MRI BRAIN W/O CONTRAST 02/14 1700 Report Impression - Status: SIGNED Entered: 02/14/20222113 IMPRESSION: 1. Diagnosis, Assessment PlanProblem List/A P: 1. Bilateral carotid artery stenosis - S/P Redo right CEA - Continue ASA and Plavix. 2. Acute cerebrovascular accident (CVA) due to occlusion of right carotid artery - New MRI brain revealed: Areas of acute infarction seen on prior study dated 02/04/2022 are again noted with multiple areas of new acute infarction in the right MCA distribution and watershed distribution on the right. 2. No developing intracranial hemorrhage. No hydrocephalus. Impression By: [email or web address] - Brady Puentes MD - Patient with sig Left hemiparesis, but marked ataxia, as per PT. - Continue ASA, Plavix, statin, and PT/OT. 3. Acute renal failure superimposed on stage 3 chronic kidney disease - ARF resolved, and Cr appears to be at baseline. 4. Diabetes - On ozympic at home w Zigduo, amaryl and metformin - Currently on lantus, will increase the dose still hypperglycemic continue SSI 5. HLD (hyperlipidemia) - Continue high intensity statin 6. HTN (hypertension) - Continue other anti-hypertensive agents. 7. PVD (peripheral vascular disease) - Arterial doppler suggests severe PAD involving bilateral LE. Left Fem Pop graft is patent. - Continue ASA and Plavix. 8. Chronic ulcer of left leg - Xray negative for bony involvement. - Wound culture: Staph Epi; will d/c antibiotics and continue local wound care. 9. Hyponatremia - Slight worsenind after surgery. - Will d/c IV fluid. Consultants: cardiology, cardiovascular surgery, neurology Free Text DxA P NotesFree text DxA P notes:02/14Pt seemed more confused this afternoon, then this amMRI head to be doneStill had radial art lineplan IPR if MRI head okseems more ataxic02/15MRI suggests more stroke on the R side MCA distribution, IPR denied due to lack of benefitsplan to DC home, if family acceptsCM not able to get hold of familyDW CV teamAdjust InsulinPt is still in SICU Quality: Gen Med Crit Care VTE ProphylaxisVTE prophylaxis initiated: yes Current MedicationsCurrent medication review:I attest that the foregoing medication list in the medical record is true, accurate, and complete to the best of my knowledge. at 1610 [facility] #:[id number] OF REPORTPRProgress kjpz2355-10-56H25:59:00Z.[id number] able for patient ocnqSNGUOZDNQOKLQD1327-00-57R41:10:42 [facility] 2022-02-14 20:41:00 [id number] E/1p7MEcPzm0lQGGzz9RTS5IRmb0a mWxzxmyIVT7obwqFgvXqWHowE9yW93H1139-83-78Y08:41:0 0 [facility] ProgREPORT#:[id number] REPORT STATUS: SignedDATE:02/14/22 TIME: 2040 PATIENT: KAYLEE LEZAMA UNIT #: [id number]#: [id number] [address]: [address] AGE: 61 SEX: M ATTEND: Maximilian Sepulveda MDA AUTHOR: Dang Marina * ALL edits or amendments must be made on the electronic/computer document * GeneralPost-op: day 3Status post:Redo Right CEA SubjectivePatient reports:Yes: complaints. Nursing reports:No: complaints. Comments:The patient is seen at bedside, having dinnerHis speech is clear and he is awake and alert and follows commands Review of SystemsConstitutional:Reports: generalized weakness. Denies: chills, fatigue, fever. Respiratory:Denies: MATA (dyspnea on exertion), SOB. Cardiovascular:Denies: chest pain. Neuro:Reports: weakness (left hemiparesis), other. Objective GeneralVS/I O:Last Documented: Result Date Time Pulse Ox 95 02/14 2031 B/P 127/72 02/14 2031 B/P Mean 93 02/14 2031 Pulse 86 02/14 2031 Resp 19 08/15 2031 Temp 36.1 02/14 1600 O2 Delivery Room air 02/14 0809 O2 Flow Rate 2 02/14 0400 FiO2 28 02/13 2319 24 hour I O ending at 0700: 02/14 0700 02/13 1900 Intake Total 1150 Output Total 800 200 Balance -800 950 Intake, Oral 1150 Number Voids 10 Output, Urine 800 200 PATIENT WEIGHT: Weight (lb): 190Weight (oz): 6.4Weight (kg): 86.364 Medications:Active Meds + DC'd Last 24 HrsHydralazine HCl (APRESOLINE) 50 MG Q8HR PO Famotidine (PEPCID) 20 MG Q12HR PO Gabapentin (NEURONTIN) 100 MG 2100 PO Insulin Human Lispro (HumaLOG) MEDIUM DOSE SLIDING SCALE AC HS SUBQ Aspirin (ASPIRIN EC) 81 MG DAILY PO Wound Care/Dressing Products ([facility]) 1 LEONEL DAILY TOPICAL (CKD) Mupirocin (BACTROBAN NASAL - ADULT ICU) 1 APPLIC BID NASAL Benzocaine/Menthol (Cepacol Sore Throat Lozenge) 1 TAB Q2H PRN PRN MM (CKD) Bisacodyl (BISACODYL SUPP) 10 MG ASDIR PRN RECTAL Calcium Gluconate/Sodium Chloride (Calcium Gluconate 1 GM/NS 100 mL) 100 ML ASDIR PRN IV Hydrocodone Bitart/Acetaminophen (NORCO 5/325 TABLET (C-II)) 1 TAB Q4H PRN PRN PO Hydrocodone Bitart/Acetaminophen (NORCO 5/325 TABLET (C-II)) 2 TAB Q4H PRN PRN PO Meperidine HCl (DEMEROL (C-II)) 25 MG Q4H PRN PRN IM Meperidine HCl (DEMEROL (C-II)) 50 MG Q4H PRN PRN IM Nicardipine HCl (CARDENE I.V.) 25 MG ASDIR PRN IV (CKD) Sodium Chloride (SODIUM CHLORIDE 0.9%) 250 MLOndansetron HCl (ZOFRAN) 4 MG Q8H PRN PRN IV Potassium Chloride (Potassium Chloride) 50 ML ASDIR PRN IV Amlodipine Besylate (NORVASC) 10 MG DAILY PO Hydralazine HCl (APRESOLINE) 25 MG Q8HR PO (DC) Insulin Glargine (Lantus/Semglee) 22 UNITS BEDTIME SUBQ Diphenoxylate HCl/Atropine (LOMOTIL (C-V)) 2 UDTAB Q6H PRN PRN PO Levothyroxine Sodium (Synthroid) 12.5 MCG DAILY@0630 PO Losartan Potassium (COZAAR) 100 MG DAILY PO Clopidogrel Bisulfate (PLAVIX) 75 MG DAILY PO Atorvastatin Calcium (LIPITOR) 80 MG BEDTIME PO Nicotine (NICODERM) 14 MG DAILY PRN PRN TRANSDERM Acetaminophen (TYLENOL) 650 MG Q6H PRN PRN PO Dextrose/Water (DEXTROSE 50% IN WATER) 12.5 GM ASDIR PRN IV Dextrose/Water (DEXTROSE 50% IN WATER) 25 GM ASDIR PRN IV Hydralazine HCl (APRESOLINE) 10 MG Q6H PRN PRN IV Physical ExamGeneral appearance: alert, awake, oriented, no acute distressWound/incision: Location: Right neck wound Site condition: dressing clean dry, incision intact, no drainage, no erythemaNeck: non-tender, no masses or swellingCardiovascular: BP/pulses equal bilat., normal heart sounds, regular rate rhythmRespiratory: aerating wellAbdomen: soft, non-tender, no distentionExtremities: no 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: left 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, alert, oriented X 3 ResultsFindings/Data:Laboratory Tests 02/14 1703 1056 0802 Chemistry POC Glucose (60 - 99 MG/DL) 301 *H 175 H 280 H 294 H Diagnosis, Assessment PlanFree Text A P:Severe recurrent KATHE stenosisH/O bilateral carotid endarterectomiesS/P redo right CEAAcute RCVA with left hemiparesisDiabetesHypertension PLAN: PT/OTMRI BRain pendingContinue aspirin/plavix at 2047 [facility] #:[id number] OF REPORTPRProgress hmrr2423-60-84B37:41:00Z.[id number] able for patient ovomPWLGCCIURGPAEF1865-88-23O19:48:04 [facility] 2022-02-14 20:41:00 [id number]+yih S6TjlF6RDJLPoRegVa5sExywB+Florecita vobDttqDl6/9cN3rZzTuhuSbj+/5270-02-27V49:41:00 [facility] ([facility])cardiovascular surgery progreport#:[id number] report status: signeddate:02/14/22 time: 2040 patient: kaylee lezama unit #: [id number]#: [id number] [address]: [address] age: 61 sex: m attend: maximilian sepulveda mda dt: 02/03/22 author: dang marina * all edits or amendments must be made on the electronic/computer document * generalpost-op: day 3status post:redo right cea subjectivepatient reports:yes: complaints. nursing reports:no: complaints. comments:the patient is seen at bedside, having dinnerhis speech is clear and he is awake and alert and follows commands review of systemsconstitutional:reports: generalized weakness. denies: chills, fatigue, fever. respiratory:denies: mata (dyspnea on exertion), sob. cardiovascular:denies: chest pain. neuro:reports: weakness (left hemiparesis), other. objective generalvs/i o:last documented: result date time pulse ox 95 02/14 2031 b/p 127/72 02/14 2031 b/p mean 93 02/14 2031 pulse 86 02/14 2031 resp 19 02/14 2031 temp 36.1 02/14 1600 o2 delivery room air 02/14 0809 o2 flow rate 2 02/14 0400 fio2 28 02/13 2319 24 hour i o ending at 0700: 02/14 0700 02/13 1900 intake total 1150 output total 800 200 balance -800 950 intake, oral 1150 number voids 10 output, urine 800 200 patient weight: weight (lb): 190weight (oz): 6.4weight (kg): 86.364 medications:active meds + dc'd last 24 hrshydralazine hcl (apresoline) 50 mg q8hr po famotidine (pepcid) 20 mg q12hr po gabapentin (neurontin) 100 mg 2100 po insulin human lispro (humalog) medium dose sliding scale ac hs subq aspirin (aspirin ec) 81 mg daily po wound care/dressing products ([facility]) 1 leonel daily topical (ckd) mupirocin (bactroban nasal - adult icu) 1 applic bid nasal benzocaine/menthol (cepacol sore throat lozenge) 1 tab q2h prn prn mm (ckd) bisacodyl (bisacodyl supp) 10 mg asdir prn rectal calcium gluconate/sodium chloride (calcium gluconate 1 gm/ns 100 ml) 100 ml asdir prn iv hydrocodone bitart/acetaminophen (norco 5/325 tablet (c-ii)) 1 tab q4h prn prn po hydrocodone bitart/acetaminophen (norco 5/325 tablet (c-ii)) 2 tab q4h prn prn po meperidine hcl (demerol (c-ii)) 25 mg q4h prn prn im meperidine hcl (demerol (c-ii)) 50 mg q4h prn prn im nicardipine hcl (cardene i.v.) 25 mg asdir prn iv (ckd) sodium chloride (sodium chloride 0.9%) 250 mlondansetron hcl (zofran) 4 mg q8h prn prn iv potassium chloride (potassium chloride) 50 ml asdir prn iv amlodipine besylate (norvasc) 10 mg daily po hydralazine hcl (apresoline) 25 mg q8hr po (dc) insulin glargine (lantus/semglee) 22 units bedtime subq diphenoxylate hcl/atropine (lomotil (c-v)) 2 udtab q6h prn prn po levothyroxine sodium (synthroid) 12.5 mcg daily@0630 po losartan potassium (cozaar) 100 mg daily po clopidogrel bisulfate (plavix) 75 mg daily po atorvastatin calcium (lipitor) 80 mg bedtime po nicotine (nicoderm) 14 mg daily prn prn transderm acetaminophen (tylenol) 650 mg q6h prn prn po dextrose/water (dextrose 50% in water) 12.5 gm asdir prn iv dextrose/water (dextrose 50% in water) 25 gm asdir prn iv hydralazine hcl (apresoline) 10 mg q6h prn prn iv physical examgeneral appearance: alert, awake, oriented, no acute distresswound/incision: location: right neck wound site condition: dressing clean dry, incision intact, no drainage, no erythemaneck: non-tender, no masses or swellingcardiovascular: bp/pulses equal bilat., normal heart sounds, regular rate rhythmrespiratory: aerating wellabdomen: soft, non-tender, no distentionextremities: no edemaneuro/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 ride 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: left hemiparesis, alert, oriented x 3 resultsfindings/data:laboratory tests 02/14 02/14 02/14 02/14 1951 1703 1056 0802 chemistry poc glucose (60 - 99 mg/dl) 301 *h 175 h 280 h 294 h diagnosis, assessment planfree text a p:severe recurrent kathe stenosish/o bilateral carotid endarterectomiess/p redo right ceaacute rcva with left hemiparesisdiabeteshypertension plan: pt/otmri brain pendingcontinue aspirin/plavix electronically signed by dang marina on 02/14/22 at 2047electronically signed by brady lerma md on 02/28/22 at 1911 rpt #:[id number] of reportPRProgress [id number]:41:00Z.[id number] able for patient iywmTOLVYDEIRLYHXL8085-46-77Q17:12:15 [facility] 2022-02-14 20:15:00 [id number] YbrayX9hehIIek8uGrZ3Ni75WMeB+ tOQlHFGpClYiVDvH8cFG5HXB51j4178-39-35O56:15:63014 5-[address] [address] patient name: kaylee lezama admit date: 02/03/22account no: [id number] room no: z.si06 age: 61 report type: progress note sex: m admitting physician:maximilian sepulveda md attending physician:maximilian sepulveda md date: 02/14/2022 neurology followup attending physician: maximilian sepulveda md subjective: the patient is well alert and awake, sitting in the chair. hedenies any headache or any problem with the speech or swallowing. he alsodenies any confusion. he says he is unable to move his left arm, but he canraise his left leg. as per the staff, the patient is more awake and responsiveand he is mildly confused occasionally. there is no history of any abnormalmovement or any seizure-like activity reported. objective:vital signs: blood pressure 149/108, respiration 28, pulse 92, and hftnbnjnopy45.0.heent: conjunctivae clear. throat; not congested.neck: supple.cardiovascular system: both the heart sounds present. no murmur.respiratory system: clear to auscultation.abdomen: soft, moves with respiration.extremities: no pedal edema.neurological: the patient is well alert and awake. oriented to place, person,month, and year. he follows simple commands. speaks clearly. cranial nerveexamination; pupils are equal and reacting to light. no visual field defectnoted. ocular movements were intact. no nystagmus noted. there is a verysubtle left facial asymmetry noted. tongue is in the midline. motorexamination; the patient moves his right arm and right leg well. he also raisesthe left lower extremity above the bed, but he is having difficulty in movinghis left upper extremity. no abnormal movements noted. tone appeared to bedecreased on the left side, intact over the right side. sensory examination;appreciates touch and pain over all 4 extremities. laboratory data: glucose at bedside is 301. impression:1. acute right cerebrovascular accident with left hemiparesis.2. severe right carotid stenosis, status post right carotid endarterectomy.3. renal insufficiency.4. uncontrolled diabetes mellitus with highly elevated hemoglobin a1c.5. severe hyperlipidemia.6. the patient is well alert and awake and oriented to place, person, month, patient name: kaylee lezama and year. his speech is also clear, but the patient is noted having increasedweakness of his left side, predominantly left upper extremity. recommendation:1. we will get an mri of the brain to rule out any new infarction.2. continuation of aspirin 81 mg and plavix.3. continuation of atorvastatin.4. continuation of physical, occupational, and speech therapy.5. aggressive control of his blood sugar.6. i will follow with the mri report. dictated by: feng nowak md wt: pn:z.him/miryam/ntsdd: 02/14/2022 20:15:02dt: 02/14/2022 20:33:17conf#: [id number]/did#: [id number] authenticated by feng nowak on 03/01/2022 05:46:00 pm electronically signed by jerry nowak md on 03/01/22 at 0546 patient name: kaylee lezama bkaq3631-62-49L33:33:00Z.[id number] ble for patient rcdtCGVZFYKPTRXWKB2685-74-43P79:46:41 [facility] 2022-02-14 17:33:00 [id number] XZVkzl67SpLPWrsC4wN2YCRaS+R+K yLNj6EsCRnkaCQ17iNgpQu3woMJa7tn2814-69-70J95:33:0 0 [facility] ([facility])Nephrology Progress NoteREPORT#:[id number] REPORT STATUS: SignedDATE:02/14/22 TIME: 3 PATIENT: KAYLEE LEZAMA UNIT #: [id number]#: [id number] [address]: [address] AGE: 61 SEX: M ATTEND: Maximilian Sepulveda MDADM AUTHOR: Karel Burgess MD * ALL edits or amendments must be made on the electronic/computer document * Objective Physical ExamGeneral appearance: confusedHead/eyes: atraumatic, normocephalicENT: moist mucous membranesNeck: supple/no meningismus, no JVDCardiovascular: murmur (SYs ), normal heart sounds, regular rate and rhythm, pedal pulses present, no murmurRespiratory: aerating well, clear to auscultation, normal breath sounds, symmetric expansionAbdomen: non-tender, normal bowel sounds, soft, no CVA tenderness, no distentionGenitourinary: no flank pain, no urinary catheterExtremities: non-tender, normal inspection, no edema, no swelling Diagnosis, Assessment PlanFree Text A P:Today Pt with lt sided weakenssscheduled for Brain MRI nuerology F/U # UMESH 2nd to pre- renal / Glucodiuresis 2nd to DKA resolved s/p Contrast in Feb 04:peak Cr 1.7 at [facility] SCr improved to 0.8-1.0avoid NSAID renal dose medciations continue losartan # HyponatremiaMild, monitor # DM s/p DKA Mngt per primary team # HtnBP above goalHydralazine increased to 50 mg po tid # Carotid artery stenosis S/p R CEA on 02/11 pt now with lt sided weaknessScheduled for MRI # Diarrhea Resolved Possibly due to ABx # Hypoakelmia and hypomagnesemia Replete prn Consultants: cardiology, cardiovascular surgery, neurology at 1735 RPT #:[id number] OF REPORTPRProgress ctoh3624-58-53N36:33:00Z.[id number] able for patient ddsyHSYGLECTVLZFVD8925-48-52K49:35:25 [facility] 2022-02-14 16:31:00 [id number] huz9S/Z9Dfs+v5u/YyiBxvI8f7ApD UmeaUahWt4PcpHPxtSXqiDPUcDHhZq67746-55-40H23:31:0 0 [facility] ([facility]ospital[facility] Progress NoteREPORT#:[id number] REPORT STATUS: SignedDATE:02/14/22 TIME: 1631 PATIENT: TEJAKAYLEE UNIT #: [id number]#: [id number] ROOM/BED: Z.QW06-COKG: 58 AGE: 61 SEX: M ATTEND: Maximilian Sepulveda MDADM AUTHOR: Maximilian Sepulveda MD * ALL edits or amendments must be made on the electronic/computer document * SubjectiveChief complaint:S/P CEA R, Left UE very weakHPI:Patient seein in SICU; per nurse pt seems more confused, left side UE seems weaker. DR Howell and Dr Lerma is aware Review of SystemsConstitutional:Reports: generalized weakness, lethargy. Respiratory:Denies: MATA (dyspnea on exertion), pneumonia. Neuro:Reports: focal weakness, gait problem. All systems rev neg: except as marked Objective GeneralVS/I O:Vital Signs: Date Time Temp Pulse Resp B/P B/P Pulse O2 O2 Flow FiO2 Mean Ox Delivery Rate 02/14 1431 91 20 160/72 104 94 /15 1331 86 19 165/73 105 98 /15 1301 83 24 147/65 94 98 08/15 1231 80 10 126/60 86 99 08/15 1201 90 24 146/66 95 99 08/15 1200 97.4 /15 1131 91 16 128/59 85 98 08/15 1101 81 10 137/65 93 99 08/15 1031 83 10 124/61 88 95 08/15 1001 97 25 151/83 112 97 08/15 0931 84 21 157/57 98 100 08/15 0914 83 14 170/75 108 91 08/15 0833 84 15 146/65 93 92 08/15 0809 94 Room air /15 0803 101 24 149/76 104 99 08/15 0733 99 18 142/70 100 94 08/15 0715 96.8 08/15 0703 78 12 125/69 92 100 08/15 0515 90 26 98 08/15 0500 79 12 98 08/15 0433 84 12 164/79 114 100 08/15 0400 98.0 08/15 0400 Nasal 2 cannula /15 0333 77 13 162/67 97 99 08/15 0300 97 11 100 08/15 0245 99 24 98 08/15 0233 104 33 162/76 109 96 08/15 0200 101 31 97 08/15 0133 74 16 159/70 101 95 02/14 0130 76 13 96 02/14 0103 77 15 156/67 97 95 02/14 0033 77 12 163/72 104 95 02/14 0003 78 12 149/67 96 96 02/14 0000 98.5 02/14 0000 Nasal 2 cannula 02/13 2333 68 12 145/63 91 96 02/13 2319 96 Nasal 2 28 cannula 02/13 2303 84 42 176/77 111 96 02/13 2233 92 44 165/77 110 94 02/13 2203 94 45 164/98 117 95 02/13 2200 94 31 97 02/13 2103 93 39 174/106 127 96 02/13 2033 91 23 167/65 107 95 02/13 2003 90 23 156/68 98 90 02/14 2000 98.3 02/14 2000 Nasal 2 cannula 02/13 1933 87 17 151/65 93 94 02/13 1903 87 22 149/65 94 96 02/13 1833 82 17 135/62 89 94 02/13 1830 84 14 93 02/13 1815 83 16 93 02/13 1803 87 21 149/67 97 94 02/13 1800 87 94 02/13 1733 79 17 152/61 88 94 02/13 1703 74 14 138/64 92 96 02/13 1700 71 15 96 02/13 1633 75 17 145/65 93 94 24 hour I O ending at 0700: 02/14 0700 02/13 1900 Intake Total 1150 Output Total 800 200 Balance -800 950 Intake, Oral 1150 Number Voids 10 Output, Urine 800 200 PATIENT WEIGHT: Weight (lb): 190Weight (oz): 6.4Weight (kg): 86.364 Medications:Active Meds + DC'd Last 24 HrsHydralazine HCl (APRESOLINE) 50 MG Q8HR PO Famotidine (PEPCID) 20 MG Q12HR PO Gabapentin (NEURONTIN) 100 MG 2100 PO Insulin Human Lispro (HumaLOG) MEDIUM DOSE SLIDING SCALE AC HS SUBQ Aspirin (ASPIRIN EC) 81 MG DAILY PO Wound Care/Dressing Products ([facility]) 1 LEONEL DAILY TOPICAL (CKD) Mupirocin (BACTROBAN NASAL - ADULT ICU) 1 APPLIC BID NASAL Benzocaine/Menthol (Cepacol Sore Throat Lozenge) 1 TAB Q2H PRN PRN MM (CKD) Bisacodyl (BISACODYL SUPP) 10 MG ASDIR PRN RECTAL Calcium Gluconate/Sodium Chloride (Calcium Gluconate 1 GM/NS 100 mL) 100 ML ASDIR PRN IV Hydrocodone Bitart/Acetaminophen (NORCO 5/325 TABLET (C-II)) 1 TAB Q4H PRN PRN PO Hydrocodone Bitart/Acetaminophen (NORCO 5/325 TABLET (C-II)) 2 TAB Q4H PRN PRN PO Meperidine HCl (DEMEROL (C-II)) 25 MG Q4H PRN PRN IM Meperidine HCl (DEMEROL (C-II)) 50 MG Q4H PRN PRN IM Nicardipine HCl (CARDENE I.V.) 25 MG ASDIR PRN IV (CKD) Sodium Chloride (SODIUM CHLORIDE 0.9%) 250 MLOndansetron HCl (ZOFRAN) 4 MG Q8H PRN PRN IV Potassium Chloride (Potassium Chloride) 50 ML ASDIR PRN IV Amlodipine Besylate (NORVASC) 10 MG DAILY PO Hydralazine HCl (APRESOLINE) 25 MG Q8HR PO (DC) Insulin Glargine (Lantus/Semglee) 22 UNITS BEDTIME SUBQ Diphenoxylate HCl/Atropine (LOMOTIL (C-V)) 2 UDTAB Q6H PRN PRN PO Levothyroxine Sodium (Synthroid) 12.5 MCG DAILY@0630 PO Losartan Potassium (COZAAR) 100 MG DAILY PO Clopidogrel Bisulfate (PLAVIX) 75 MG DAILY PO Atorvastatin Calcium (LIPITOR) 80 MG BEDTIME PO Nicotine (NICODERM) 14 MG DAILY PRN PRN TRANSDERM Acetaminophen (TYLENOL) 650 MG Q6H PRN PRN PO Dextrose/Water (DEXTROSE 50% IN WATER) 12.5 GM ASDIR PRN IV Dextrose/Water (DEXTROSE 50% IN WATER) 25 GM ASDIR PRN IV Hydralazine HCl (APRESOLINE) 10 MG Q6H PRN PRN IV Physical ExamGeneral appearance: alert, awake, orientedHead/Eyes: atraumatic, normal conjunctiva/sclera, normocephalic, PERRLENT: poor dentition, moist mucosal membranes, normal ear left, normal ear rightCardiovascular: normal heart sounds, regular rate rhythmRespiratory: aerating well, clear to auscultation, symmetric expansionAbdomen: distended, non-tender, normal bowel sounds, soft, no distentionGenitourinary: no urinary catheterExtremities: moves all, no clubbing, no cyanosis, no edemaMusculoskeletal: normal inspection, painless range of motion, no muscle spasmNeuro/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 Site Condition: dressing clean dryPsychiatry: normal affect, normal mood ResultsFindings/Data:Laboratory Tests 02/14 02/14 02/13 1056 0802 2010 Chemistry POC Glucose (60 - 99 MG/DL) 280 H 294 H 291 H Diagnosis, Assessment PlanProblem List/A P: 1. Bilateral carotid artery stenosis - S/P Redo right CEA this afternoon; doing well. - Continue ASA and Plavix. - Other post-op orders, as per CV surgery team. 2. Acute cerebrovascular accident (CVA) due to occlusion of right carotid artery - MRI brain revealed: Multifocal areas of acute infarct involving the right frontal lobe, middle frontal gyrus, single cortex of the right occipital lobe, and in the frontal-parietal white matter representing watershed ischemia territory. Minimal extra-axial FLAIR and T1 hyperintensity signal seen adjacent to the right occipital infarct, possibly representing trace subarachnoid hemorrhage. - Patient with mild left hemiparesis, but marked ataxia, as per PT. - Continue ASA, Plavix, statin, and PT/OT. 3. Acute renal failure superimposed on stage 3 chronic kidney disease - ARF resolved, and Cr appears to be at baseline. 4. Diabetes - On ozympic at home w Zigduo, amaryl and metformin - Currently on lantus, will increase the dose as needed; continue SSI 5. HLD (hyperlipidemia) - Continue high intensity statin 6. HTN (hypertension) - Patient on Nicardipine drip after surgery. - Continue other anti-hypertensive agents. 7. PVD (peripheral vascular disease) - Arterial doppler suggests severe PAD involving bilateral LE. Left Fem Pop graft is patent. - Continue ASA and Plavix. 8. Chronic ulcer of left leg - Xray negative for bony involvement. - Wound culture: Staph Epi; will d/c antibiotics and continue local wound care. 9. Hyponatremia - Slight worsenind after surgery. - Will d/c IV fluid. Consultants: cardiology, cardiovascular surgery, neurology Free Text DxA P NotesFree text DxA P notes:02/14Pt seemed more confused this afternoon, then this amMRI head to be doneStill had radial art lineplan IPR if MRI head okseems more ataxic Quality: Gen Med Crit Care VTE ProphylaxisVTE prophylaxis initiated: yes Current MedicationsCurrent medication review:I attest that the foregoing medication list in the medical record is true, accurate, and complete to the best of my knowledge. at 1634 RPT #:[id number] OF REPORTPRProgress czwq4204-79-29R35:31:00Z.[id number] able for patient tdfhUEWOTTPZZTBPUN3407-77-43S40:34:31 [facility] 2022-02-14 00:07:00 [id number] 4JWL3hTntr+YGc8Rm57xl8SmH9LIC McjOHfIBcFZo8VHQc9sBnhUyjhZ0994-10-98I75:07:63412 5-0012 [place] [address] patient name: kaylee lezama admit date: 02/03/22account no: [id number] room [facility]: [email or web address] age: 61 report type: progress note sex: m admitting physician:maximilian sepulveda md attending physician:maximilian sepulveda md date: 02/13/2022 cardiac surgery service the patient is seen at bedside in icu. the patient currently is stable. thepatient apparently fell while getting on the chair today. cat scan of the headis unchanged, no acute findings. the patient remained stable. we will plan forthe patient to go to rehab tomorrow to increase his physical therapy andrecovery. dictated by: brady lerma md wt: pn:zalayna/wolf/quinndd: 02/14/2022 00:07:59dt: 02/14/2022 00:56:32conf#: [id number]/did#: [id number] authenticated by brady lerma md on 02/20/2022 08:06:09 pm electronically signed by brady lerma md on 02/20/22 at 0806 patient name: kaylee lezama xmed9967-77-70K86:56:00Z.[id number] ble for patient hfgqUMFUZSLGVSLTWL3741-25-32U33:06:46 [facility] 2022-02-13 17:40:00 [id number] hSPNagtSU6qtfh6g98D/MSq7olkPj BrLRhqFOnvRzEW4JdXabYlN8o/veh1/1357-92-39T79:40:0 0 [facility] NoteREPORT#:[id number] REPORT STATUS: SignedDATE:02/13/22 TIME: 1740 PATIENT: KAYLEE LEZAMA UNIT #: [id number]#: [id number] [address]KSGP: [address] AGE: 61 SEX: M ATTEND: Maximilian Sepulveda MDADM AUTHOR: Dave Holden MD * ALL edits or amendments must be made on the electronic/computer document * SubjectiveHPI:No c/o N/V/flank pain. Objective GeneralVS/I O:Vital Signs: Date Time Temp Pulse Resp B/P B/P Pulse O2 O2 Flow FiO2 Mean Ox Delivery Rate 02/14 0515 90 26 98 02/14 0500 79 12 98 02/14 0433 84 12 164/79 114 100 02/14 0400 Nasal 2 cannula 02/14 0333 77 13 162/67 97 99 02/14 0300 97 11 100 02/14 0245 99 24 98 02/14 0233 104 33 162/76 109 96 02/14 0200 101 31 97 02/14 0133 74 16 159/70 101 95 02/14 0130 76 13 96 08/15 0103 77 15 156/67 97 95 08/15 0033 77 12 163/72 104 95 08/15 0003 78 12 149/67 96 96 08/15 0000 98.5 08/15 0000 Nasal 2 cannula 08/14 2333 68 12 145/63 91 96 08/14 2319 96 Nasal 2 28 cannula 08/14 2303 84 42 176/77 111 96 08/14 2233 92 44 165/77 110 94 08/14 2203 94 45 164/98 117 95 08/14 2200 94 31 97 08/14 2103 93 39 174/106 127 96 08/14 2033 91 23 167/65 107 95 08/14 2002 90 23 156/68 98 90 08/14 1999 98.3 08/14 1999 Nasal 2 cannula 08/14 1933 87 17 151/65 93 94 08/14 1903 87 22 149/65 94 96 08/14 1833 82 17 135/62 89 94 08/14 1830 84 14 93 08/14 1815 83 16 93 08/14 1803 87 21 149/67 97 94 08/14 1800 87 94 08/14 1733 79 17 152/61 88 94 08/14 1703 74 14 138/64 92 96 08/14 1700 71 15 96 08/14 1633 75 17 145/65 93 94 08/14 1630 79 22 96 08/14 1603 74 18 135/63 91 95 08/14 1600 75 16 95 08/14 1600 97.3 74 27 137/60 85 95 Nasal 2 cannula 08/14 1533 69 12 139/62 89 95 08/14 1530 74 14 95 08/14 1503 78 15 158/67 96 93 08/14 1500 78 19 94 08/14 1459 79 14 94 08/14 1445 83 24 95 08/14 1433 66 12 144/66 95 93 08/14 1430 69 13 94 08/14 1415 72 18 97 08/14 1400 80 33 97 08/14 1345 84 19 98 08/14 1330 73 16 98 08/14 1315 65 13 95 08/14 1300 75 29 144/67 96 98 08/14 1245 78 26 97 08/14 1230 68 15 96 08/14 1215 77 18 96 08/14 1200 96.8 82 31 150/71 97 94 Room air 08/14 1200 82 31 150/71 102 94 08/14 1145 75 15 96 /14 1130 73 14 95 /14 1115 71 16 96 /14 1100 73 13 137/63 91 96 /14 1045 70 18 97 /14 1030 72 13 138/61 88 96 /14 1015 79 14 97 /14 1000 71 12 97 /14 0945 79 15 97 /14 0930 68 12 94 /14 0915 78 18 99 /14 0911 74 12 100 / 0904 81 14 /14 0852 160/72 103 /14 0845 155/67 102 /14 0843 164/77 110 /14 0834 77 28 99 /14 0830 70 13 100 /14 0815 75 13 99 /14 0800 96.7 92 23 145/55 85 98 Nasal 2 cannula 02/13 0800 92 23 98 / 0745 72 14 98 / 0745 98 Nasal 2 28 cannula 02/13 0733 Nasal 2 cannula 02/13 0730 78 13 97 02/13 0715 71 12 02/13 0700 84 26 95 24 hour I O ending at 0700: 02/14 0700 02/13 1900 Intake Total 1150 Output Total 500 200 Balance -500 950 Intake, Oral 1150 Number Voids 10 Output, Urine 500 200 PATIENT WEIGHT: Weight (lb): 190Weight (oz): 6.4Weight (kg): 86.364 Physical ExamGeneral appearance: appears as his stated ageHead/eyes: atraumatic, normocephalicENT: moist mucous membranesNeck: supple/no meningismus, no JVDCardiovascular: murmur (SYs ), normal heart sounds, regular rate and rhythm, pedal pulses present, no murmurRespiratory: aerating well, clear to auscultation, normal breath sounds, symmetric expansionAbdomen: non-tender, normal bowel sounds, soft, no CVA tenderness, no distentionGenitourinary: no flank pain, no urinary catheterExtremities: non-tender, normal inspection, no edema, no swelling Diagnosis, Assessment PlanFree Text A P:# UMESH 2nd to pre- renal / Glucodiuresis 2nd to DKA improving now platue at 1.3 s/p Contrast in Feb 04:peak Cr 1.7 at [facility] SCr improved to 0.8-1.0avoid NSAID renal dose medciations continue losartan # HyponatremiaMild, monitor # DM s/p DKA Mngt per primary team # HtnBP above goalHydralazine increased to 50 mg po tid # Carotid artery stenosis S/p R CEA on 02/11 # Diarrhea Resolved Possibly due to ABx # Hypoakelmia and hypomagnesemia [facility] prn at [facility] #:[id number] OF REPORTPRProgress [id number]:40:00Z.[id number] able for patient sthzBJMWDATIXELKVL1589-70-39K15:45:53 [facility] 2022-02-13 14:55:00 [id number]1Eo aeYpdYCxxm1MJdhP6C2TJh6x3Lq7768-64-98M80:55:44154 4-0060 [place] [address] patient name: kaylee lezama admit date: 02/03/22account no: [id number] room no: [id number] age: 61 report type: progress note sex: m admitting physician:maximilian sepulveda md attending physician:maximilian sepulveda md date: 02/13/2022 neurology followup attending physician: kevin owusu md subjective: the patient is comfortably sitting in the bed. he denies anyheadache or dizziness or any problem with the speech or swallowing. he is stillcomplaining of having weakness of his left side. as per the staff, the patienthad an episode of fall while he was trying to get up from the chair. he alsohit his head on the side of the chair, but there is no loss of consciousness. the patient states that he is not having any problem. objective:vital signs: blood pressure 144/67, respirations 29, pulse 75, and jhmqhthlbsy39.8.heent: conjunctivae clear. throat; not congested. ear; no discharge. thereis no any contusion noted.neck: supple. there is right carotid endarterectomy site noted.cardiovascular system: both the heart sounds present. no murmur.respiratory system: clear to auscultation.abdomen: soft, moves with respiration.extremities: no pedal edema.neurological: the patient is well alert and awake. oriented to place andperson. he follows simple commands. speaks clearly. he also jokesintermittently. cranial nerve examination; ocular movements were intact. thereis no gross facial asymmetry. motor examination: moves his right arm and rightleg well. he also raises the left lower extremity, but he mildly raises theleft upper extremity. no abnormal movements noted. sensory examination;appreciate touch and pain over all 4 extremities. laboratory data: sodium 133, potassium 4.4, chloride 99, bicarbonate 26,glucose of 205, bun 17, creatinine 1.0, calcium 8.8. wbc 12.1, hemoglobin 10.5,hematocrit 32.8, and platelet count 344,000. a ct of the head today reportedmultifocal areas of recent subacute infarction in the right, correlating withareas of subacute infarction seen on the prior mri. no intracranial hemorrhageor other acute intracranial abnormality. impression:1. acute multiple right cerebrovascular accident with left hemiparesis.2. severe right carotid stenosis, status post right carotid endarterectomy.3. renal insufficiency. patient name: kaylee lezama 4. uncontrolled diabetes mellitus with highly elevated hemoglobin a1c.5. severe hyperlipidemia, on statin at present.6. the patient is more alert and awake and responsive and oriented to place andperson. he is also following simple commands. the patient is still havingleft-sided weakness. the patient appeared to have mildly increased weakness onthe left side. the patient also had an episode of fall while trying to get up. however, the patient's ct of the head reported without any acute change. recommendations:1. continuation of aspirin and plavix.2. continuation of atorvastatin.3. continue to follow fall precautions.4. continue to keep his blood sugar within the normal range.5. i will also consider repeating the mri of the brain to rule out anyextension of the stroke if he continued to have increased weakness on the leftside. dictated by: feng nowak md wt: pn:lisalayna/denyspaola/ntsdd: 02/13/2022 14:55:44dt: 02/13/2022 15:13:47conf#: [id number]/did#: [id number] authenticated by feng nowak on 03/01/2022 05:45:58 pm electronically signed by jerry nowak md on 03/01/22 at 0545 patient name: kaylee lezama [id number]:13:00Z.[id number] ble for patient xnfrACQUMGOMXPHFAN2017-36-97A90:46:41 [facility] 2022-02-13 13:09:00 [id number] 6JkzngJqqQ+dev4YLCq3u4N60uJzj frL/PCnJgehkFxXoBF8EpQp6xgB5YkT9006-26-40Z29:09:0 0 [facility] ([facility]ITALHospitalist Progress NoteREPORT#:[id number] REPORT STATUS: SignedDATE:02/13/22 TIME: 1309 PATIENT: KAYLEE LEZAMA UNIT #: [id number]#: [id number] [address]XBMY: [address] AGE: 61 SEX: M ATTEND: Kevin Owusu [facility] AUTHOR: Kevin Owusu MD * ALL edits or amendments must be made on the electronic/computer document * SubjectiveChief complaint:carotid stenosisHPI:Patient seein in SICU; denies any complaint.Nurse indicates that he fell earlier; she was trying to put the pillow underneath him in the recliner. Stood him up while holding him, asked him to hold on to the walker, and as she was placing the pillow on the chair, he fell over. He indicates that he hit left side of his face against the recliner. No injury noted. Objective GeneralVS/I O:Vital Signs: Date Time Temp Pulse Resp B/P B/P Pulse O2 O2 Flow FiO2 Mean Ox Delivery Rate 08/14 1300 75 29 144/67 96 98 08/14 1245 78 26 97 08/14 1230 68 15 96 08/14 1215 77 18 96 08/14 1200 82 31 150/71 102 94 08/14 1145 75 15 96 08/14 1130 73 14 95 08/14 1115 71 16 96 08/14 1100 73 13 137/63 91 96 08/14 1045 70 18 97 08/14 1030 72 13 138/61 88 96 08/14 1015 79 14 97 08/14 1000 71 12 97 08/14 0945 79 15 97 08/14 0930 68 12 94 08/14 0915 78 18 99 08/14 0911 74 12 100 08/14 0904 81 14 08/14 0852 160/72 103 08/14 0845 155/67 102 08/14 0843 164/77 110 08/14 0834 77 28 99 08/14 0830 70 13 100 08/14 0815 75 13 99 08/14 0800 92 23 98 08/14 0745 72 14 98 08/14 0745 98 Nasal 2 28 cannula /14 0733 Nasal 2 cannula 08/14 0730 78 13 97 08/14 0715 71 12 08/14 0700 84 26 95 08/14 0445 69 12 99 08/14 0430 82 26 97 08/14 0415 71 15 98 08/14 0400 97.5 08/14 0400 79 15 96 08/14 0345 73 12 99 08/14 0330 86 24 91 08/14 0315 92 36 93 08/14 0300 76 15 96 08/14 0245 76 12 95 08/14 0230 88 28 97 08/14 0215 78 14 96 08/14 0200 82 14 94 08/14 0103 81 14 99 08/14 0100 80 16 99 08/14 0045 86 25 100 08/14 0030 73 12 96 08/14 0015 55 11 100 08/14 0000 97.9 08/14 0000 Nasal 2 cannula 08/14 0000 57 11 100 08/13 2345 55 12 100 08/13 2330 64 12 100 08/13 2315 66 13 100 08/13 2300 69 13 100 08/13 2245 69 13 100 08/13 2230 72 12 100 08/13 2215 74 12 90 08/13 2200 71 16 92 08/13 2145 76 16 96 08/13 2130 82 15 94 02/125 85 22 94 02/12 2100 83 23 95 02/125 79 31 95 02/12 2030 84 19 93 02/12 2015 81 16 02/13 2000 98.1 02/13 2000 Nasal 2 cannula 02/13 2000 82 18 98 02/12 1945 79 23 97 02/12 1930 77 15 96 02/12 1915 75 28 95 02/12 1900 77 28 95 02/12 1800 73 16 96 02/12 1700 68 17 96 02/12 1600 97.8 Nasal 4 cannula 02/12 1600 74 7 97 02/12 1500 70 25 100 02/12 1400 69 19 99 24 hour I O ending at 0700: 02/13 0700 02/12 1900 Intake Total 500 Output Total 1450 670 Balance -1450 -170 Intake, Oral 500 Number Voids 4 Output, 20 Drainage Output, Urine 1450 650 PATIENT WEIGHT: Weight (lb): 190Weight (oz): 6.4Weight (kg): 86.364 Medications:Active Meds + DC'd Last 24 HrsFamotidine (PEPCID) 20 MG Q12HR PO Gabapentin (NEURONTIN) 100 MG 2100 PO Insulin Human Lispro (HumaLOG) MEDIUM DOSE SLIDING SCALE AC HS SUBQ Aspirin (ASPIRIN EC) 81 MG DAILY PO Wound Care/Dressing Products (MEDIHONEY) 1 LEONEL DAILY TOPICAL (CKD) Mupirocin (BACTROBAN NASAL - ADULT ICU) 1 APPLIC BID NASAL Benzocaine/Menthol (Cepacol Sore Throat Lozenge) 1 TAB Q2H PRN PRN MM (CKD) Bisacodyl (BISACODYL SUPP) 10 MG ASDIR PRN RECTAL Calcium Gluconate/Sodium Chloride (Calcium Gluconate 1 GM/NS 100 mL) 100 ML ASDIR PRN IV Hydrocodone Bitart/Acetaminophen (NORCO 5/325 TABLET (C-II)) 1 TAB Q4H PRN PRN PO Hydrocodone Bitart/Acetaminophen (NORCO 5/325 TABLET (C-II)) 2 TAB Q4H PRN PRN PO Meperidine HCl (DEMEROL (C-II)) 25 MG Q4H PRN PRN IM Meperidine HCl (DEMEROL (C-II)) 50 MG Q4H PRN PRN IM Nicardipine HCl (CARDENE I.V.) 25 MG ASDIR PRN IV (CKD) Sodium Chloride (SODIUM CHLORIDE 0.9%) 250 MLOndansetron HCl (ZOFRAN) 4 MG Q8H PRN PRN IV Potassium Chloride (Potassium Chloride) 50 ML ASDIR PRN IV Potassium Chloride/Dextrose/Sod Cl (DEXTROSE 5%-1/2NS-KCL 20MEQ) 1,000 ML Q12H IV (DC) Amlodipine Besylate (NORVASC) 10 MG DAILY PO Hydralazine HCl (APRESOLINE) 25 MG Q8HR PO Insulin Glargine (Lantus/Semglee) 22 UNITS BEDTIME SUBQ Diphenoxylate HCl/Atropine (LOMOTIL (C-V)) 2 UDTAB Q6H PRN PRN PO Levothyroxine Sodium (Synthroid) 12.5 MCG DAILY@0630 PO Losartan Potassium (COZAAR) 100 MG DAILY PO Clopidogrel Bisulfate (PLAVIX) 75 MG DAILY PO Atorvastatin Calcium (LIPITOR) 80 MG BEDTIME PO Nicotine (NICODERM) 14 MG DAILY PRN PRN TRANSDERM Acetaminophen (TYLENOL) 650 MG Q6H PRN PRN PO Dextrose/Water (DEXTROSE 50% IN WATER) 12.5 GM ASDIR PRN IV Dextrose/Water (DEXTROSE 50% IN WATER) 25 GM ASDIR PRN IV Hydralazine HCl (APRESOLINE) 10 MG Q6H PRN PRN IV Physical ExamGeneral appearance: awake, no acute distress, conversationalHead/Eyes: atraumatic, normal conjunctiva/sclera, normocephalic, PERRLENT: poor dentition, moist mucosal membranes, normal ear left, normal ear rightCardiovascular: normal heart sounds, regular rate rhythmRespiratory: aerating well, clear to auscultation, symmetric expansionAbdomen: distended, non-tender, normal bowel sounds, soft, no distentionGenitourinary: no urinary catheterExtremities: moves all, no clubbing, no cyanosis, no edemaMusculoskeletal: normal inspection, painless range of motion, no muscle spasmNeuro/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 Site Condition: dressing clean dryPsychiatry: normal affect, normal mood ResultsFindings/Data:Laboratory Tests 02/13 02/13 02/12 02/12 02/12 0722 0645 2037 1717 1343 Chemistry Sodium (137 - 145 MMOL/L) 133 L Potassium (3.5 - 5.1 MMOL/L) 4.4 Chloride (98 - 107 MMOL/L) 99 Carbon Dioxide (22 - 30 MMOL/L) 26 BUN (9 - 20 MG/DL) 17 Creatinine (0.66 - 1.25 MG/DL) 1.00 Glomerular Filtr Rate > 60 Glucose (74 - 106 MG/DL) 205 H POC Glucose (60 - 99 MG/DL) 244 H 262 H 194 H 324 *H Calcium (8.4 - 10.2 MG/DL) 8.8 Laboratory Tests 02/13 0645 Hematology WBC (3.8 - 9.8 K/MM3) 12.1 H RBC (3.95 - 5.67 M/MM3) 3.46 L Hgb (12.4 - 16.7 G/DL) 10.5 L Hct (35.9 - 49.5 %) 32.8 L MCV (81.7 - 96.1 fL) 95 MCH (27.6 - 33.2 pg) 30.3 MCHC (32.9 - 35.5 %) 32.0 L RDW (12.1 - 15.2 %) 13.3 Plt Count (129 - 368 K/MM3) 344 MPV (7.4 - 10.4 fl) 9.5 Neut % (Auto) (43 - 75 %) 76.6 H Lymph % (Auto) (14 - 44 %) 11.9 L [place] % (Auto) (4 - 13 %) 8.5 Eos % (Auto) (0 - 6 %) 1.7 Baso % (Auto) (0 - 2 %) 0.8 Neut # (Auto) (2.0 - 7.6 K/mm3) 9.26 H Lymph # (Auto) (1.0 - 3.8 K/mm3) 1.44 [place] # (Auto) (0.1 - 0.8 K/mm3) 1.03 H Eos # (Auto) (0.0 - 0.2 K/mm3) 0.20 Baso # (Auto) (0.0 - 0.2 K/mm3) 0.10 Immature Gran % (0.0 - 2.0 %) 0.5 Nucleated RBC % (0 - 1.0 %) 0.0 Nucleated RBCs # (Man) (0.0 - 0.1 K/mm3) 0.00 Radiology data:Recent Impressions:CAT SCAN - CT HEAD/BRAIN W/O CONT 02/13 1000 Report Impression - Status: SIGNED Entered: 02/13/2022 1024 IMPRESSION: 1. Multifocal areas of recent to subacute infarction in the rightcorrelating with areas of acute infarction seen on prior MRI dated02/04/2022.2. No intracranial hemorrhage or other acute intracranialabnormality.Impression By: [email or web address] - Brady Puentes MD Results: labs reviewed, vital signs reviewed, vital signs stable, rhythm personally rev'd, current med profile rev'd Diagnosis, Assessment PlanProblem List/A P: 1. Bilateral carotid artery stenosis - S/P Redo right CEA this afternoon; doing well. - Continue ASA and Plavix. - Other post-op orders, as per CV surgery team. 2. Acute cerebrovascular accident (CVA) due to occlusion of right carotid artery - MRI brain revealed: Multifocal areas of acute infarct involving the right frontal lobe, middle frontal gyrus, single cortex of the right occipital lobe, and in the frontal-parietal white matter representing watershed ischemia territory. Minimal extra-axial FLAIR and T1 hyperintensity signal seen adjacent to the right occipital infarct, possibly representing trace subarachnoid hemorrhage. - Patient with mild left hemiparesis, but marked ataxia, as per PT. - Continue ASA, Plavix, statin, and PT/OT. 3. Acute renal failure superimposed on stage 3 chronic kidney disease - ARF resolved, and Cr appears to be at baseline. 4. Diabetes - On ozympic at home w Zigduo, amaryl and metformin - Currently on lantus, will increase the dose as needed; continue SSI 5. HLD (hyperlipidemia) - Continue high intensity statin 6. HTN (hypertension) - Patient on Nicardipine drip after surgery. - Continue other anti-hypertensive agents. 7. PVD (peripheral vascular disease) - Arterial doppler suggests severe PAD involving bilateral LE. Left Fem Pop graft is patent. - Continue ASA and Plavix. 8. Chronic ulcer of left leg - Xray negative for bony involvement. - Wound culture: Staph Epi; will d/c antibiotics and continue local wound care. 9. Hyponatremia - Slight worsenind after surgery. - Will d/c IV fluid. Consultants: cardiology, cardiovascular surgery, neurology Quality: Gen Med Crit Care VTE ProphylaxisVTE prophylaxis initiated: yes Current MedicationsCurrent medication review:I attest that the foregoing medication list in the medical record is true, accurate, and complete to the best of my knowledge. at [address] [facility] #:[id number] OF REPORTPRProgress [id number]:09:00Z.[id number] able for patient dhdgSWABUJOWSBKZMD3880-67-14T52:50:43 [facility] 2022-02-12 18:02:00 [id number]/t4m C2/JufOnAQeqRKlf2uBHFzvUyqB5IV85741-23-12S65:02:0 0 [facility] ([facility]Nephrology Progress NoteREPORT#:[id number] REPORT STATUS: SignedDATE:02/12/22 TIME: 1801 PATIENT: KAYLEE LEZAMA UNIT #: [id number]#: [id number] [address]-CTZL: [address] AGE: 61 SEX: M ATTEND: Kevin Owusu [facility] AUTHOR: Dave Holden MD * ALL edits or amendments must be made on the electronic/computer document * SubjectiveChief complaint:ne new complainsHPI:No urinary complaints. Objective GeneralVS/I O:Vital Signs: Date Time Temp Pulse Resp B/P B/P Pulse O2 O2 Flow FiO2 Mean Ox Delivery Rate 02/13 0103 81 14 99 02/13 0100 80 16 99 02/13 0045 86 25 100 02/13 0030 73 12 96 02/13 0015 55 11 100 02/13 0000 97.9 02/13 0000 Nasal 2 cannula 02/13 0000 57 11 100 02/12 2345 55 12 100 / 2330 64 12 100 / 2315 66 13 100 02/12 2300 69 13 100 / 2245 69 13 100 02/12 2230 72 12 100 02/12 2215 74 12 90 02/12 2200 71 16 92 02/12 2145 76 16 96 / 2130 82 15 94 / 2115 85 22 94 / 2100 83 23 95 / 2045 79 31 95 / 2030 84 19 93 02/12 2015 81 16 081999 98.1 02/13 2000 Nasal 2 cannula 02/13 2000 82 18 98 08/ 1945 79 23 97 / 1930 77 15 96 / 1915 75 28 95 / 1900 77 28 95 / 1800 73 16 96 / 1700 68 17 96 / 1600 97.8 Nasal 4 cannula 02/12 1600 74 7 97 / 1500 70 25 100 02/12 1400 69 19 99 / 1300 70 21 02/12 1203 68 02/12 1200 11 02/12 1200 97.8 Nasal 4 cannula 02/12 1100 73 25 68 / 1000 69 16 94 / 0900 72 12 95 / 0854 98 Nasal 2 28 cannula 02/12 0800 4 02/12 0800 76 27 93 / 0700 72 22 94 / 0645 65 15 94 / 0630 73 19 95 / 0615 71 12 95 / 0600 71 12 96 / 0545 71 12 96 02/12 0530 67 11 97 02/12 0515 70 11 97 / 0500 69 11 97 24 hour I O ending at 0700: 02/13 0700 02/12 1900 Intake Total 500 Output Total 500 670 Balance -500 -170 Intake, Oral 500 Number Voids 4 Output, 20 Drainage Output, Urine 500 650 PATIENT WEIGHT: Weight (lb): 190Weight (oz): 6.4Weight (kg): 86.364 Physical ExamGeneral appearance: appears as his stated ageHead/eyes: atraumatic, normocephalicENT: moist mucous membranesNeck: supple/no meningismus, no JVDCardiovascular: murmur (SYs ), normal heart sounds, regular rate and rhythm, pedal pulses present, no murmurRespiratory: aerating well, clear to auscultation, normal breath sounds, symmetric expansionAbdomen: non-tender, normal bowel sounds, soft, no CVA tenderness, no distentionGenitourinary: no flank pain, no urinary catheterExtremities: non-tender, normal inspection, no edema, no swelling Diagnosis, Assessment PlanFree Text A P:# UMESH 2nd to pre- renal / Glucodiuresis 2nd to DKA improving now platue at 1.3 s/p Contrast in Feb 04:peak Cr 1.7 at [facility] now cr down to 0.8 avoid NSAID renal dose medciations continue losartan # HyponatremiaMild, monitor # DM s/p DKA Mngt per primary team # HTN BP meds adjusted # Carotid artery stenosis S/p R CEA on 02/11 # Diarrhea Resolved Possibly due to ABx # Hypoakelmia and hypomagnesemia Replete prn at 0433 RPT #:[id number] OF REPORTPRProgress [id number]:02:00Z.[id number] able for patient frwjPRMNSOQGWWFTVV5626-14-86C62:33:57 [facility] 2022-02-12 15:52:00 [id number] FmboRb2Ts7bjyKSZ3r4fmNXqAZsch [id number]45-64-08Y05:52:00 [facility] ([facility])neurology progress notereport#:[id number] report status: signeddate:02/12/22 time: 155 patient: kaylee lezama unit #: [id number]#: [id number] [address]: [address] age: 61 sex: m attend: maximilian sepulveda dt: 02/03/22 author: rena sanchez md r1 * all edits or amendments must be made on the electronic/computer document * rena sanchez 02/12/22 1552:subjectivehpi:px is s/p right carotid endarterectomy, tolerated surgery well. px was seen sitting out of bed eating and drinking well. he is having difficulty using his left hand and complaining his hand is cold. he is also complaining of dull surgical site pain. he is oriented to person, place and time and able to move all 4 extremities. denies headache, weakness, difficulty swallowing. objective generalvs:last documented: result date time pulse 68 02/12 1203 pulse ox 68 02/12 1100 resp 25 02/12 1100 fio2 28 02/12 0854 o2 delivery nasal cannula 02/12 0854 o2 flow rate 2 02/12 0854 temp 36.5 02/12 0400 b/p 131/61 02/11 1600 b/p mean 84 02/11 1600 patient weight: weight (lb): 190weight (oz): 6.4weight (kg): 86.364 medicationscurrent home medicationsomeprazole er 20 mg po bid albuterol (proair hfa 90 mcg/act 8.5 gm) 2 puff inh rtq4h prn prn dyspnea/wheezing dapagliflozin/metformin 10/1,000 mg (xigduo xr 10/1,000 mg) 1 tab po daily amlodipine (norvasc) 5 mg po daily metformin (glucophage) 1,000 mg po bid losartan (cozaar) 100 mg po daily gabapentin (neurontin) 200 mg po bid atorvastatin (lipitor) 40 mg po bedtime glimepiride (amaryl) 4 mg po daily [ozempic] (unknown dose) weekly active meds + dc'd last 24 hrsfamotidine (pepcid) 20 mg q12hr po gabapentin (neurontin) 100 mg 2100 po insulin human lispro (humalog) medium dose sliding scale ac hs subq aspirin (aspirin ec) 81 mg daily po wound care/dressing products ([facility]) 1 leonel daily topical (ckd) famotidine (pepcid) 20 mg q12hr iv (dc) mupirocin (bactroban nasal - adult icu) 1 applic bid nasal magnesium sulfate (mag sulfate 2gm premix) 50 ml now one iv (dc) cefazolin sodium (ancef) 1 gm q8h iv (dc) benzocaine/menthol (cepacol sore throat lozenge) 1 tab q2h prn prn mm (ckd) bisacodyl (bisacodyl supp) 10 mg asdir prn rectal calcium gluconate/sodium chloride (calcium gluconate 1 gm/ns 100 ml) 100 ml asdir prn iv hydrocodone bitart/acetaminophen (norco 5/325 tablet (c-ii)) 1 tab q4h prn prn po hydrocodone bitart/acetaminophen (norco 5/325 tablet (c-ii)) 2 tab q4h prn prn po meperidine hcl (demerol (c-ii)) 25 mg q4h prn prn im meperidine hcl (demerol (c-ii)) 50 mg q4h prn prn im nicardipine hcl (cardene i.v.) 25 mg asdir prn iv (ckd) sodium chloride (sodium chloride 0.9%) 250 mlondansetron hcl (zofran) 4 mg q8h prn prn iv potassium chloride (potassium chloride) 50 ml asdir prn iv potassium chloride/dextrose/sod cl (dextrose 5%-1/2ns-kcl 20meq) 1,000 ml q12h iv amlodipine besylate (norvasc) 10 mg daily po hydralazine hcl (apresoline) 25 mg q8hr po insulin glargine (lantus/semglee) 22 units bedtime subq diphenoxylate hcl/atropine (lomotil (c-v)) 2 udtab q6h prn prn po levothyroxine sodium (synthroid) 12.5 mcg daily@0630 po losartan potassium (cozaar) 100 mg daily po clopidogrel bisulfate (plavix) 75 mg daily po atorvastatin calcium (lipitor) 80 mg bedtime po insulin human lispro (humalog) medium dose sliding scale ac hs subq (dc) nicotine (nicoderm) 14 mg daily prn prn transderm acetaminophen (tylenol) 650 mg q6h prn prn po dextrose/water (dextrose 50% in water) 12.5 gm asdir prn iv dextrose/water (dextrose 50% in water) 25 gm asdir prn iv hydralazine hcl (apresoline) 10 mg q6h prn prn iv nutrition assessment:the data set between the solid lines has been imported from the dietitian's assessment. any exceptions have been noted under provider comments. bmi calculated: 25.8nutrition related diagnosis: overweightnutrition diagnosis details: bmi 25-29.9nutrition problem: excessive carb intakenutrition etiology: knowledge deficitnutrition signs and symptoms: pt reported following a , regular diet at [facility], never, received dm education, a1c 11nutrition prescription: 1. continue diabetic diet 2. provide education as needed, monitor bg labsdietitian name: pratibha smiley springer, dietassessment completed: 02/10/22 provider comments on imported dietitian assessment: physical examgeneral appearance: alert, awake, oriented, no acute distress, pleasant, conversationalhead/eyes: atraumatic, normocephalicent: moist mucosal membranesneck: surgical site noted on right side of neckcardiovascular: regular rate and rhythm, normal heart sounds, no murmurrespiratory: aerating well, clear to auscultation, no distressabdomen: non-tender, normal bowel sounds, soft, no distentionextremities: moves all, pulses present, no edemaneuro comment:patient is awake and alert, oriented to person, place, month, and year. follows commands. speech is clear. 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 no visual field defect noted. no facial asymmetry. tongue is midline. motor: strength is symmetric on all 4 extremities. no abnormal movements noted. sensory: appreciates touch and pain over all 4 extremities. resultsfindings/data:laboratory tests 02/12 02/12 02/12 02/11 02/11 1343 0648 0418 2003 1645 chemistry sodium (137 - 145 mmol/l) 131 l potassium (3.5 - 5.1 mmol/l) 4.3 chloride (98 - 107 mmol/l) 101 carbon dioxide (22 - 30 mmol/l) 24 anion gap (14 - 24 mmol/l) 10 l bun (9 - 20 mg/dl) 14 creatinine (0.66 - 1.25 mg/dl) 0.80 glomerular filtr rate > 60 glucose (74 - 106 mg/dl) 238 h poc glucose (60 - 99 mg/dl) 324 *h 253 h 246 h 268 h calcium (8.4 - 10.2 mg/dl) 8.9 magnesium (1.6 - 2.3 mg/dl) 1.6 laboratory tests 02/12 0418 hematology wbc (3.8 - 9.8 k/mm3) 13.8 h rbc (3.95 - 5.67 m/mm3) 3.68 l hgb (12.4 - 16.7 g/dl) 11.1 l hct (35.9 - 49.5 %) 33.8 l mcv (81.7 - 96.1 fl) 92 mch (27.6 - 33.2 pg) 30.2 mchc (32.9 - 35.5 %) 32.8 l rdw (12.1 - 15.2 %) 12.8 plt count (129 - 368 k/mm3) 337 mpv (7.4 - 10.4 fl) 9.3 neut % (auto) (43 - 75 %) 82.3 h lymph % (auto) (14 - 44 %) 7.0 l mono % (auto) (4 - 13 %) 9.8 eos % (auto) (0 - 6 %) 0.1 baso % (auto) (0 - 2 %) 0.4 neut # (auto) (2.0 - 7.6 k/mm3) 11.35 h lymph # (auto) (1.0 - 3.8 k/mm3) 0.97 l mono # (auto) (0.1 - 0.8 k/mm3) 1.35 h eos # (auto) (0.0 - 0.2 k/mm3) 0.02 baso # (auto) (0.0 - 0.2 k/mm3) 0.05 immature gran % (0.0 - 2.0 %) 0.4 nucleated rbc % (0 - 1.0 %) 0.0 nucleated rbcs # (man) (0.0 - 0.1 k/mm3) 0.00 radiology data:recent impressions:radiology - xr chest 1v 02/12 0531 report impression - status: signed entered: 02/12/2022 0817 impression:significantly improved pulmonary vascular congestion.impression by: [email or web address] Asmita wiggins md diagnosis, assessment planfree text a p:impression:1. acute multiple right cerebrovascular accident with left hemiparesis2. severe right carotid artery stenosis up to 90%; s/p right carotid endarterectomy3. renal insufficiency, improving4. uncontrolled diabetes mellitus with highly elevated hemoglobin a1c5. severe hyperlipidemia6. currently stable neurologically with no acute changes recommendations:1. continue aspirin 81mg, plavix 75mg, atorvastatin 80 mg at bedtime2. continue management of blood sugar3. continue dvt prophylaxis4. continue physical, occupational, and speech therapy5. may restart pt/ot and speech therapy once cleared by vascular surgery serviceconsultants: cardiology, cardiovascular surgery, neurology quality: gen med crit care vte prophylaxisvte prophylaxis initiated: yes current medicationscurrent medication review:i attest that the foregoing medication list in the medical record is true, accurate, and complete to the best of my knowledge. dang nowak 02/24/222056:attestations teaching physician attestationf/u visit w/ resident:i saw the patient with the resident and agree with the resident's findings and plan. electronically signed by rena sanchez md r1 on 02/15/22 at 1546electronically signed by jerry nowak md on 02/24/22 at 2100 rpt #:[id number] of reportPRProgress ghjw2886-67-64W31:52:00Z.[id number] able for patient ftpqQRGEWVIQRXFNEZ9336-30-16A80:47:10 [facility] 13:48:00 [id number] afxDO7VoNr0QqqXO5Ilb7QXk4PXQj enRgz4mRT9tMUI6CH7mfrxQyaLxK/aq4413-03-52F28:48:0 0 [facility] ([facility])Hospitalist Progress NoteREPORT#:[id number] REPORT STATUS: SignedDATE:02/12/22 TIME: 1348 PATIENT: KAYLEE LEZAMA UNIT #: [id number]#: [id number] [address] AGE: 61 SEX: M ATTEND: Kevin Owusu [facility] AUTHOR: Kevin Owusu MD * ALL edits or amendments must be made on the electronic/computer document * SubjectiveChief complaint:carotid stenosisHPI:Patient seein in SICU; sitting up in the chair eating lunch. Reports slight painat the surgical site. Objective GeneralVS/I O:Vital Signs: Date Time Temp Pulse Resp B/P B/P Pulse O2 O2 Flow FiO2 Mean Ox Delivery Rate 02/12 1203 68 02/12 1100 73 25 68 08/ 1000 69 16 94 08/13 0900 72 12 95 08/13 0854 98 Nasal 2 28 cannula 08/ 0800 76 27 93 08/13 0700 72 22 94 08/13 0645 65 15 94 08/13 0630 73 19 95 08/13 0615 71 12 95 08/13 0600 71 12 96 08/13 0545 71 12 96 08/13 0530 67 11 97 08/13 0515 70 11 97 08/13 0500 69 11 97 08/13 0430 81 12 93 08/13 0415 79 13 95 08/13 0400 97.7 08/13 0400 76 11 96 08/13 0345 80 19 98 08/13 0330 81 13 95 08/13 0315 81 20 95 08/13 0300 69 10 97 08/13 0245 70 11 97 08/13 0230 69 11 97 08/13 0215 70 12 98 08/13 0200 69 12 97 08/13 0145 67 12 98 08/13 0130 69 12 97 08/13 0115 74 12 96 08/13 0100 68 12 97 08/13 0045 70 13 95 08/13 0030 72 15 99 08/13 0015 70 15 96 08/13 0000 97.6 08/13 0000 70 12 98 08/12 2345 72 11 97 08/12 2330 79 19 97 08/12 2315 80 14 98 08/12 2300 68 11 98 08/12 2245 69 9 97 08/12 2230 79 19 98 08/12 2215 75 13 95 08/12 2200 81 27 98 08/12 2145 76 14 96 08/12 2130 77 12 98 08/12 2115 77 12 97 08/12 2100 78 13 97 08/12 2045 78 19 97 08/12 2030 81 19 98 08/12 2014 76 13 99 08/12 1999 77 13 98 08/12 1945 83 14 99 08/12 1930 83 15 98 08/12 1926 97.0 08/12 1926 Nasal 2 cannula 08/12 1916 82 13 98 08/12 1915 83 13 98 08/12 1900 82 12 99 08/12 1845 78 13 100 08/12 1832 99 Nasal 2 28 cannula 08/12 1830 85 16 99 08/12 1815 89 14 99 08/12 1800 76 13 99 08/12 1745 75 13 99 08/12 1740 75 13 99 08/12 1739 77 13 99 08/12 1730 77 13 99 08/12 1715 78 13 99 08/12 1700 76 14 99 08/12 1645 91 15 98 08/12 1630 88 16 99 08/12 1615 82 14 98 08/12 1600 97.2 89 14 131/61 84 98 Nasal 5 cannula 08/12 1600 83 14 98 08/12 1530 83 14 98 08/12 1515 99 16 96 08/12 1500 92 16 98 08/12 1445 100 15 97 08/12 1430 111 24 97 08/12 1429 99 Nasal 44 cannula 08/12 1415 98 17 97 08/12 1400 101 16 97 24 hour I O ending at 0700: 02/12 0700 08/12 1900 Intake Total 2004.00 2130.00 Output Total 194 3220 Balance 65.00 -1090.00 Intake, IV 1655.00 1770.00 Intake, Oral 350 260 Intake, Oral 100 Supplement Number Voids 3 Output, 30 40 Drainage Output, 50 Estimated Blood Loss Output, Urine 1910 3130 Patient 190 lb Weight Weight Stated/Reported Measurement Method PATIENT WEIGHT: Weight (lb): 190Weight (oz): 6.4Weight (kg): 86.364 Medications:Active Meds + DC'd Last 24 HrsFamotidine (PEPCID) 20 MG Q12HR PO Gabapentin (NEURONTIN) 100 MG 2100 PO Insulin Human Lispro (HumaLOG) MEDIUM DOSE SLIDING SCALE AC HS SUBQ Aspirin (ASPIRIN EC) 81 MG DAILY PO Wound Care/Dressing Products (MEDIHONEY) 1 LEONEL DAILY TOPICAL (CKD) Famotidine (PEPCID) 20 MG Q12HR IV (DC) Mupirocin (BACTROBAN NASAL - ADULT ICU) 1 APPLIC BID NASAL Magnesium Sulfate (MAG SULFATE 2GM PREMIX) 50 ML NOW ONE IV (DC) Cefazolin Sodium (ANCEF) 1 GM Q8H IV (DC) Benzocaine/Menthol (Cepacol Sore Throat Lozenge) 1 TAB Q2H PRN PRN MM (CKD) Bisacodyl (BISACODYL SUPP) 10 MG ASDIR PRN RECTAL Calcium Gluconate/Sodium Chloride (Calcium Gluconate 1 GM/NS 100 mL) 100 ML ASDIR PRN IV Hydrocodone Bitart/Acetaminophen (NORCO 5/325 TABLET (C-II)) 1 TAB Q4H PRN PRN PO Hydrocodone Bitart/Acetaminophen (NORCO 5/325 TABLET (C-II)) 2 TAB Q4H PRN PRN PO Meperidine HCl (DEMEROL (C-II)) 25 MG Q4H PRN PRN IM Meperidine HCl (DEMEROL (C-II)) 50 MG Q4H PRN PRN IM Nicardipine HCl (CARDENE I.V.) 25 MG ASDIR PRN IV (CKD) Sodium Chloride (SODIUM CHLORIDE 0.9%) 250 MLOndansetron HCl (ZOFRAN) 4 MG Q8H PRN PRN IV Potassium Chloride (Potassium Chloride) 50 ML ASDIR PRN IV Potassium Chloride/Dextrose/Sod Cl (DEXTROSE 5%-1/2NS-KCL 20MEQ) 1,000 ML Q12H IV Amlodipine Besylate (NORVASC) 10 MG DAILY PO Hydralazine HCl (APRESOLINE) 25 MG Q8HR PO Insulin Glargine (Lantus/Semglee) 22 UNITS BEDTIME SUBQ Diphenoxylate HCl/Atropine (LOMOTIL (C-V)) 2 UDTAB Q6H PRN PRN PO Levothyroxine Sodium (Synthroid) 12.5 MCG DAILY@0630 PO Losartan Potassium (COZAAR) 100 MG DAILY PO Clopidogrel Bisulfate (PLAVIX) 75 MG DAILY PO Atorvastatin Calcium (LIPITOR) 80 MG BEDTIME PO Insulin Human Lispro (HumaLOG) MEDIUM DOSE SLIDING SCALE AC HS SUBQ (DC) Nicotine (NICODERM) 14 MG DAILY PRN PRN TRANSDERM Acetaminophen (TYLENOL) 650 MG Q6H PRN PRN PO Dextrose/Water (DEXTROSE 50% IN WATER) 12.5 GM ASDIR PRN IV Dextrose/Water (DEXTROSE 50% IN WATER) 25 GM ASDIR PRN IV Hydralazine HCl (APRESOLINE) 10 MG Q6H PRN PRN IV Physical ExamGeneral appearance: awake, no acute distress, conversationalHead/Eyes: atraumatic, normal conjunctiva/sclera, normocephalic, PERRLENT: poor dentition, moist mucosal membranes, normal ear left, normal ear rightCardiovascular: normal heart sounds, regular rate rhythmRespiratory: aerating well, clear to auscultation, symmetric expansionAbdomen: distended, non-tender, normal bowel sounds, soft, no distentionGenitourinary: no urinary catheterExtremities: moves all, no clubbing, no cyanosis, no edemaMusculoskeletal: normal inspection, painless range of motion, no muscle spasmNeuro/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 Site Condition: dressing clean dryPsychiatry: normal affect, normal mood ResultsFindings/Data:Laboratory Tests 02/12 02/12 02/12 02/11 02/11 1343 0648 0418 2002 1645 Chemistry Sodium (137 - 145 MMOL/L) 131 L Potassium (3.5 - 5.1 MMOL/L) 4.3 Chloride (98 - 107 MMOL/L) 101 Carbon Dioxide (22 - 30 MMOL/L) 24 Anion Gap (14 - 24 MMOL/L) 10 L BUN (9 - 20 MG/DL) 14 Creatinine (0.66 - 1.25 MG/DL) 0.80 Glomerular Filtr Rate > 60 Glucose (74 - 106 MG/DL) 238 H POC Glucose (60 - 99 MG/DL) 324 *H 253 H 246 H 268 H Calcium (8.4 - 10.2 MG/DL) 8.9 Magnesium (1.6 - 2.3 MG/DL) 1.6 Laboratory Tests 02/12 0418 Hematology WBC (3.8 - 9.8 K/MM3) 13.8 H RBC (3.95 - 5.67 M/MM3) 3.68 L Hgb (12.4 - 16.7 G/DL) 11.1 L Hct (35.9 - 49.5 %) 33.8 L MCV (81.7 - 96.1 fL) 92 MCH (27.6 - 33.2 pg) 30.2 MCHC (32.9 - 35.5 %) 32.8 L RDW (12.1 - 15.2 %) 12.8 Plt Count (129 - 368 K/MM3) 337 MPV (7.4 - 10.4 fl) 9.3 Neut % (Auto) (43 - 75 %) 82.3 H Lymph % (Auto) (14 - 44 %) 7.0 L [place] % (Auto) (4 - 13 %) 9.8 Eos % (Auto) (0 - 6 %) 0.1 Baso % (Auto) (0 - 2 %) 0.4 Neut # (Auto) (2.0 - 7.6 K/mm3) 11.35 H Lymph # (Auto) (1.0 - 3.8 K/mm3) 0.97 L [place] # (Auto) (0.1 - 0.8 K/mm3) 1.35 H Eos # (Auto) (0.0 - 0.2 K/mm3) 0.02 Baso # (Auto) (0.0 - 0.2 K/mm3) 0.05 Immature Gran % (0.0 - 2.0 %) 0.4 Nucleated RBC % (0 - 1.0 %) 0.0 Nucleated RBCs # (Man) (0.0 - 0.1 K/mm3) 0.00 Radiology data:Recent Impressions:RADIOLOGY - XR CHEST 1V 02/12 0531 Report Impression - Status: SIGNED Entered: 02/12/2022 0817 IMPRESSION:Significantly improved pulmonary vascular congestion.Impression By: MaryRHYousuf - Brady Wiggins MD Results: labs reviewed, vital signs reviewed, vital signs stable, current med profile rev'd Diagnosis, Assessment PlanProblem List/A P: 1. Bilateral carotid artery stenosis - S/P Redo right CEA this afternoon; doing well. - Continue ASA and Plavix. - Other post-op orders, as per CV surgery team. 2. Acute cerebrovascular accident (CVA) due to occlusion of right carotid artery - MRI brain revealed: Multifocal areas of acute infarct involving the right frontal lobe, middle frontal gyrus, single cortex of the right occipital lobe, and in the frontal-parietal white matter representing watershed ischemia territory. Minimal extra-axial FLAIR and T1 hyperintensity signal seen adjacent to the right occipital infarct, possibly representing trace subarachnoid hemorrhage. - Patient with mild left hemiparesis, but marked ataxia, as per PT. - Continue ASA, Plavix, statin, and PT/OT. 3. Acute renal failure superimposed on stage 3 chronic kidney disease - ARF resolved, and Cr appears to be at baseline. 4. Diabetes - On ozympic at home w Zigduo, amaryl and metformin - Currently on lantus, will increase the dose as needed; continue SSI 5. HLD (hyperlipidemia) - Continue high intensity statin 6. HTN (hypertension) - Patient on Nicardipine drip after surgery. - Continue other anti-hypertensive agents. 7. PVD (peripheral vascular disease) - Arterial doppler suggests severe PAD involving bilateral LE. Left Fem Pop graft is patent. - Continue ASA and Plavix. 8. Chronic ulcer of left leg - Xray negative for bony involvement. - Wound culture: Staph Epi; will d/c antibiotics and continue local wound care. 9. Hyponatremia - Slight worsenind after surgery. - Will d/c IV fluid. 10. UTI (urinary tract infection) - Suspected, but ruled out; urine culture with growth of multiple organisms. Consultants: cardiology, cardiovascular surgery, neurology Quality: Gen Med Crit Care VTE ProphylaxisVTE prophylaxis initiated: yes Current MedicationsCurrent medication review:I attest that the foregoing medication list in the medical record is true, accurate, and complete to the best of my knowledge. at 1631 RPT #:[id number] OF REPORTPRProgress okss4902-29-11M34:48:00Z.[id number] able for patient xjxjPAWILCECXHLTYQ7994-25-66J36:31:43 [facility] 2022-02-11 21:57:00 [id number] ld4RZKUa99lR/E++W120aNX9UAX5H lYndLelUBXh2UYtY97o9H9baMPH1263-37-01K18:57:40859 2-[address] [address] patient name: kaylee lezama admit date: 02/03/22account no: [id number] [facility]: [email or web address] age: 61 report type: progress note sex: m admitting physician:maximilian sepulveda md attending physician:maximilian sepulveda md date: 02/11/2022 neurology followup attending physician: kevin owusu md site: intensive care unit. subjective: the patient had a right carotid endarterectomy. the patient iscomfortably lying down in bed. he is very drowsy, but arousable. he opened hiseyes, focused well. he denies any headache. now, he wants to drink some water. as per the staff, the patient is sleepy, but arousable. he denies any weaknessof his arms or legs. objective:vital signs: blood pressure 131/61, respirations 13, pulse 82, and ultwxxezakr42.0.heent: conjunctivae clear. throat; not congested.neck: right carotid endarterectomy site noted.cardiovascular system: both the heart sounds present. no murmur.respiratory system: clear to auscultation.abdomen: soft, moves with respiration.extremities: no pedal edema.neurological: the patient is drowsy and sleepy, but arousable. he opened hiseyes, focused well. he is oriented to place and person and follows simplecommands. speech is clear. cranial nerve examination; ocular movements wereintact. there is no gross facial asymmetry noted. motor examination: moveshis all 4 extremities for command. no abnormal movements noted. sensoryexamination; appreciates touch and pain over all 4 extremities. laboratory data: sodium 135, potassium 4.5, chloride 104, bicarbonate 22,glucose 232, bun 16, creatinine 0.90, calcium 8.9, and magnesium 1.3. wbc 12.8,hemoglobin 11.4, hematocrit 34.7, and platelet count 337,000. impression:1. 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 severe right carotid artery stenosis, status post right carotidendarterectomy.3. renal insufficiency, improving.4. uncontrolled diabetes mellitus with highly elevated hemoglobin a1c.5. severe hyperlipidemia, on statin at present.6. the patient is drowsy and sleepy, but arousable. he opened his eyes, patient name: kaylee lezama follows simple commands. recommendations:1. continuation of aspirin and plavix after cleared by the vascular surgeryservice.2. continuation of atorvastatin.3. continue to monitor his blood sugar and keep the blood sugar in the normalrange.4. continuation of dvt prophylaxis.5. the patient may be started with physical, occupational, and speech therapyafter cleared by the vascular surgery service. dictated by: feng nowak md wt: pn:fidel/miryam/ntsdd: 02/11/2022 21:57:11dt: 02/11/2022 22:46:07conf#: [id number]/did#: [id number] authenticated by feng nowak on 03/01/2022 05:45:57 pm electronically signed by jerry nowak md on 03/01/22 at 0545 patient name: kaylee lezama bhny3695-22-09X72:46:00Z.[id number] ble for patient sjfxBGRYAEXRORUGZZ2412-11-02Y56:46:42 [facility] 2022-02-11 19:06:00 [id number] blIi+giAHIcRIamRrJVAAe8QMeFNp SAFAhk30QlendDw58Xq/D3hYfk0axwl8773-30-57T27:06:0 0 [facility] ([facility]ph[facility] Progress NoteREPORT#:[id number] REPORT STATUS: SignedDATE:02/11/22 TIME: 1905 PATIENT: KAYLEE LEZAMA UNIT #: [id number]#: [id number] [address]KXFU: [address] AGE: 61 SEX: M ATTEND: LarryKevin mejias [facility] AUTHOR: Karel Burgess MD * ALL edits or amendments must be made on the electronic/computer document * SubjectiveChief complaint:ne new complains Objective GeneralVS/I O:Vital Signs: Date Time Temp Pulse Resp B/P B/P Pulse O2 O2 Flow FiO2 Mean Ox Delivery Rate 02/11 1832 99 Nasal 2 28 cannula 02/11 1740 75 13 99 02/11 1739 77 13 99 02/11 1730 77 13 99 02/11 1715 78 13 99 02/11 1700 76 14 99 02/11 1645 91 15 98 02/11 1630 88 16 99 02/11 1615 82 14 98 02/11 1600 83 14 98 02/11 1530 83 14 98 02/11 1515 99 16 96 02/11 1500 92 16 98 02/11 1445 100 15 97 02/11 1430 111 24 97 02/11 1429 99 Nasal 44 cannula 02/11 1415 98 17 97 02/11 1400 101 16 97 02/11 1345 96 13 98 02/11 1330 100 13 94 12 1300 Nasal 5 cannula 02/11 1300 110 21 95 / 0700 36.2 68 20 188/108 100 Room air 02/11 0417 36.8 71 14 178/77 110.8 97 Room air 02/11 0310 95 Room air 21 02/11 0014 36.6 74 16 181/77 111.9 93 02/10 1949 36.8 76 14 168/78 107.8 93 Room air PATIENT WEIGHT: Weight (lb): 190Weight (oz): 6.4Weight (kg): 86.364 Physical ExamGeneral appearance: sedated, awakeHead/eyes: atraumatic, normocephalicENT: moist mucous membranesNeck: supple/no meningismus, no JVDCardiovascular: murmur (SYs ), normal heart sounds, regular rate and rhythm, pedal pulses present, no murmurRespiratory: aerating well, clear to auscultation, normal breath sounds, symmetric expansionAbdomen: non-tender, normal bowel sounds, soft, no CVA tenderness, no distentionGenitourinary: no flank pain, no urinary catheterExtremities: non-tender, normal inspection, no edema, no swelling Diagnosis, Assessment PlanFree Text A P:A 61 Y/o man with PMHX of poorly controlled DM, HTN, PVD , who was admitted to [facility] for DKA managament, and UMESH , nephrology consulted for UMESH and electrolytes management, pt noticed to have change/no improvement in mental status , Neck MRA showed signifcant carotid stenosis , pt transfered for higher level of care Today No overnight events S/P RT CEA Cr down to 0.9 on Nicardipine drip A/P #UMESH 2nd to pre- renal / Glucodiuresis 2nd to DKA improving now platue at 1.3 s/p Contrast in Feb 04:peak Cr 1.7 at [facility] now cr down to 0.9 cont lisniopril avoid NSAID renal dose medciations continue losartan # Poorly controlled DM s/p DKA BS is better controlled now SSI #HTN uncontrolledincrease norvasc 10 mg qd start hydralazin 25 tid now on nicardipine drip # Carotid artery stenosis F/u -CTA neck showing 90% R ICA stenosis, Dr. Lerma -Planning for endarterectomy at the end of the week with Dr. Rdoríguez/P Rt CEA on 02/11 #diarrhea resolved possibly due to ABx #hypoakelmia and hypomagnesemia resolved replaced as needed Time spent 45 minutes including examining the patient face to face , reviewing the data, lab, andand radiology , placing order, discussing the case with the patient an Nurse staff Consultants: cardiology, cardiovascular surgery, neurology at 1908 RPT #:[id number] OF REPORTPRProgress [id number]:06:00Z.[id number] able for patient axyeHYAVZKSGLIEOAC2339-17-33C23:09:11 [facility] 2022-02-11 17:50:00 [id number] +tpNopaC6hWwJ5zdG3edqMdkfDbWg oUGYIvZVvvx2aJ8C8HhFMJ2ZwZjWaFZ5326-84-47I02:50:0 0 [facility] ([facility]Hospitalist Progress NoteREPORT#:[id number] REPORT STATUS: SignedDATE:02/11/22 TIME: 1750 PATIENT: KAYLEE LEZAMA UNIT #: [id number]#: [id number] [address]-RYRR: [address] AGE: 61 SEX: M ATTEND: Kevin Owusu AUTHOR: Kevin Owusu MD * ALL edits or amendments must be made on the electronic/computer document * SubjectiveChief complaint:carotid stenosisHPI:Patient seein in SICU after surgery; denied any complaint. Objective GeneralVS/I O:Vital Signs: Date Time Temp Pulse Resp B/P B/P Pulse O2 O2 Flow FiO2 Mean Ox Delivery Rate 02/11 1740 75 13 99 02/11 1739 77 13 99 02/11 1730 77 13 99 02/11 1715 78 13 99 02/11 1700 76 14 99 02/11 1645 91 15 98 02/11 1630 88 16 99 02/11 1615 82 14 98 02/11 1600 83 14 98 02/11 1530 83 14 98 02/11 1515 99 16 96 02/11 1500 92 16 98 02/11 1445 100 15 97 02/11 1430 111 24 97 02/11 1429 99 Nasal 44 cannula 02/11 1415 98 17 97 02/11 1400 101 16 97 02/11 1345 96 13 98 02/11 1330 100 13 94 02/11 1300 110 21 95 02/11 0700 97.2 68 20 188/108 100 Room air 02/11 0417 98.2 71 14 178/77 110.8 97 Room air 02/11 0310 95 Room air 21 02/11 0014 97.9 74 16 181/77 111.9 93 02/10 1949 98.2 76 14 168/78 107.8 93 Room air PATIENT WEIGHT: Weight (lb): 190Weight (oz): 6.4Weight (kg): 86.364 Medications:Active Meds + DC'd Last 24 HrsGabapentin (NEURONTIN) 100 MG 2100 PO Aspirin (ASPIRIN EC) 81 MG DAILY PO Wound Care/Dressing Products (MEDIHONEY) 1 LEONEL DAILY TOPICAL (CKD) Famotidine (PEPCID) 20 MG Q12HR IV Mupirocin (BACTROBAN NASAL - ADULT ICU) 1 APPLIC BID NASAL Magnesium Sulfate (MAG SULFATE 2GM PREMIX) 50 ML NOW ONE IV (DC) Cefazolin Sodium (ANCEF) 1 GM Q8H IV Benzocaine/Menthol (Cepacol Sore Throat Lozenge) 1 TAB Q2H PRN PRN MM (CKD) Bisacodyl (BISACODYL SUPP) 10 MG ASDIR PRN RECTAL Calcium Gluconate/Sodium Chloride (Calcium Gluconate 1 GM/NS 100 mL) 100 ML ASDIR PRN IV Hydrocodone Bitart/Acetaminophen (NORCO 5/325 TABLET (C-II)) 1 TAB Q4H PRN PRN PO Hydrocodone Bitart/Acetaminophen (NORCO 5/325 TABLET (C-II)) 2 TAB Q4H PRN PRN PO Meperidine HCl (DEMEROL (C-II)) 25 MG Q4H PRN PRN IM Meperidine HCl (DEMEROL (C-II)) 50 MG Q4H PRN PRN IM Nicardipine HCl (CARDENE I.V.) 25 MG ASDIR PRN IV (CKD) Sodium Chloride (SODIUM CHLORIDE 0.9%) 250 MLOndansetron HCl (ZOFRAN) 4 MG Q8H PRN PRN IV Potassium Chloride (Potassium Chloride) 50 ML ASDIR PRN IV Potassium Chloride/Dextrose/Sod Cl (DEXTROSE 5%-1/2NS-KCL 20MEQ) 1,000 ML Q12H IV Hydralazine HCl (APRESOLINE) 0 .STK-MED ONE .ROUTE (DC) Glycopyrrolate (ROBINUL IJ) 0 .STK-MED ONE .ROUTE (DC) Neostigmine [place] (NEOSTIGMINE METHYLSULFATE) 0 .STK-MED ONE .ROUTE (DC) Heparin Sodium/Sodium Chloride (HEPARIN 1000 UNITS/NS 500ML) 500 ML .STK-MEDONE IV (DC) Nicardipine HCl (CARDENE 25MG/250ML PREMIX) 250 ML .STK-MED ONE IV (DC) Protamine Sulfate (PROTAMINE SULFATE) 0 .STK-MED ONE IV (DC) Thrombin (RECOTHROM) 0 .STK-MED ONE Z (DC) Dexamethasone Sodium Phosphate (DECADRON 4MG IJ) 0 .STK-MED ONE .ROUTE (DC) Ondansetron HCl (ZOFRAN) 0 .STK-MED ONE .ROUTE (DC) Fentanyl Citrate (SUBLIMAZE (C-II)) 0 .STK-MED ONE .ROUTE (DC) Glycopyrrolate (ROBINUL IJ) 0 .STK-MED ONE .ROUTE (DC) Ephedrine Sulfate (ePHEDrine sulfate) 0 .STK-MED ONE .ROUTE (DC) Calcium Chloride (CALCIUM CHLORIDE) 0 .STK-MED ONE .ROUTE (DC) Propofol (DIPRIVAN) 0 .STK-MED ONE .ROUTE (DC) Amlodipine Besylate (NORVASC) 10 MG DAILY PO Cefazolin Sodium (ANCEF) 1 GM PREOP IV (DC) Phenylephrine HCl (DEDRICK-SYNEPHRINE/NS 10MG/100ML) 100 ML .STK-MED ONE IV (DC) Cefazolin Sodium (ANCEF) 0 .STK-MED ONE .ROUTE (DC) Esmolol HCl (BREVIBLOC) 0 .STK-MED ONE .ROUTE (DC) Rocuronium [place] (ZEMURON) 0 .STK-MED ONE .ROUTE (DC) Etomidate (AMIDATE) 0 .STK-MED ONE .ROUTE (DC) Fentanyl Citrate (fentaNYL CITRATE (C-II)) 0 .STK-MED ONE .ROUTE (DC) Lidocaine HCl (XYLOCAINE 1%) 5 ML .STK-MED ONE IV (DC) Succinylcholine Chloride (Quelicin) 0 .STK-MED ONE .ROUTE (DC) Lidocaine HCl (XYLOCAINE 1%) 5 ML .STK-MED ONE IV (DC) Sodium Chloride (SODIUM CHLORIDE 0.9%) 1,000 ML Q10H IV (DC) Zolpidem Tartrate (AMBIEN (C-IV)) 5 MG BEDTIME PRN PRN PO (DC) Hydralazine HCl (APRESOLINE) 25 MG Q8HR PO Insulin Glargine (Lantus/Semglee) 22 UNITS BEDTIME SUBQ Diphenoxylate HCl/Atropine (LOMOTIL (C-V)) 2 UDTAB Q6H PRN PRN PO Levothyroxine Sodium (Synthroid) 12.5 MCG DAILY@0630 PO Wound Care/Dressing Products (MEDIHONEY) 1 LEONEL DAILY TOPICAL (DC) Losartan Potassium (COZAAR) 100 MG DAILY PO Clopidogrel Bisulfate (PLAVIX) 75 MG DAILY PO Famotidine (PEPCID) 20 MG BID PO (DC) Aspirin (CHILDREN'S ASPIRIN) 81 MG DAILY PO (DC) Atorvastatin Calcium (LIPITOR) 80 MG BEDTIME PO Insulin Human Lispro (HumaLOG) MEDIUM DOSE SLIDING SCALE AC HS SUBQ Nicotine (NICODERM) 14 MG DAILY PRN PRN TRANSDERM Acetaminophen (TYLENOL) 650 MG Q6H PRN PRN PO Dextrose/Water (DEXTROSE 50% IN WATER) 12.5 GM ASDIR PRN IV Dextrose/Water (DEXTROSE 50% IN WATER) 25 GM ASDIR PRN IV Hydralazine HCl (APRESOLINE) 10 MG Q6H PRN PRN IV Physical ExamGeneral appearance: awake, no acute distress, conversationalHead/Eyes: atraumatic, normal conjunctiva/sclera, normocephalic, PERRLENT: poor dentition, moist mucosal membranes, normal ear left, normal ear rightCardiovascular: normal heart sounds, regular rate rhythmRespiratory: aerating well, clear to auscultation, symmetric expansionAbdomen: distended, non-tender, normal bowel sounds, soft, no distentionGenitourinary: no urinary catheterExtremities: moves all, no clubbing, no cyanosis, no edemaMusculoskeletal: normal inspection, painless range of motion, no muscle spasmNeuro/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 Site Condition: dressing clean dryPsychiatry: abnl judgment/insight, normal mood, easily irriable. ResultsFindings/Data:Laboratory Tests 02/11 1332 Blood Gas Puncture Site AL ABG pH (7.35 - 7.45 mmHg) 7.34 L ABG pCO2 (35.0 - 45.0 mmHg) 41.9 ABG pO2 (80.0 - 100.0 mmol/L) 93.2 ABG HCO3 (20.0 - 26.0 mmol/L) 22.2 ABG O2 Saturation (95.0 - 100.0 %) 96.7 ABG Base Excess (-3.0 - 3.0 mmol/L) -3.4 L Hema Test (CHECK) NA Temperature (37 C) 37.0 O2 Delivery Device N/C FiO2 (%) 44 Laboratory Tests 02/11 02/11 02/11 02/10 1645 1330 0732 1948 Chemistry Sodium (137 - 145 MMOL/L) 135 L Potassium (3.5 - 5.1 MMOL/L) 4.5 Chloride (98 - 107 MMOL/L) 104 Carbon Dioxide (22 - 30 MMOL/L) 22 Anion Gap (14 - 24 MMOL/L) 14 BUN (9 - 20 MG/DL) 16 Creatinine (0.66 - 1.25 MG/DL) 0.90 Glomerular Filtr Rate > 60 Glucose (74 - 106 MG/DL) 232 H POC Glucose (60 - 99 MG/DL) 268 H 173 H 264 H Calcium (8.4 - 10.2 MG/DL) 8.9 Magnesium (1.6 - 2.3 MG/DL) 1.3 L Laboratory Tests 02/11 1330 Hematology WBC (3.8 - 9.8 K/MM3) 12.8 H RBC (3.95 - 5.67 M/MM3) 3.75 L Hgb (12.4 - 16.7 G/DL) 11.4 L Hct (35.9 - 49.5 %) 34.7 L MCV (81.7 - 96.1 fL) 93 MCH (27.6 - 33.2 pg) 30.4 MCHC (32.9 - 35.5 %) 32.9 RDW (12.1 - 15.2 %) 12.9 Plt Count (129 - 368 K/MM3) 337 MPV (7.4 - 10.4 fl) 9.4 Neut % (Auto) (43 - 75 %) 89.0 H Lymph % (Auto) (14 - 44 %) 5.2 L [place] % (Auto) (4 - 13 %) 3.7 L Eos % (Auto) (0 - 6 %) 0.7 Baso % (Auto) (0 - 2 %) 0.5 Neut # (Auto) (2.0 - 7.6 K/mm3) 11.39 H Lymph # (Auto) (1.0 - 3.8 K/mm3) 0.67 L [place] # (Auto) (0.1 - 0.8 K/mm3) 0.48 Eos # (Auto) (0.0 - 0.2 K/mm3) 0.09 Baso # (Auto) (0.0 - 0.2 K/mm3) 0.07 Immature Gran % (0.0 - 2.0 %) 0.9 Nucleated RBC % (0 - 1.0 %) 0.0 Nucleated RBCs # (Man) (0.0 - 0.1 K/mm3) 0.00 Radiology data:Recent Impressions:RADIOLOGY - XR CHEST 1V 02/11 1231 Report Impression - Status: SIGNED Entered: 02/11/2022 1259 IMPRESSION: Left-sided central line tip terminates at the level of the proximalSVC. Signs of mild vascular congestion and trace central pulmonaryedema.Impression By: [email or web address] - Alejo Ramirez MD Results: labs reviewed, vital signs reviewed, vital signs stable, rhythm personally rev'd, current med profile rev'd Diagnosis, Assessment PlanProblem List/A P: 1. Bilateral carotid artery stenosis - S/P Redo right CEA this afternoon; doing well. - Continue Plavix. - Other post-op orders, as per CV surgery team. 2. Acute cerebrovascular accident (CVA) due to occlusion of right carotid artery - MRI brain revealed: Multifocal areas of acute infarct involving the right frontal lobe, middle frontal gyrus, single cortex of the right occipital lobe, and in the frontal-parietal white matter representing watershed ischemia territory. Minimal extra-axial FLAIR and T1 hyperintensity signal seen adjacent to the right occipital infarct, possibly representing trace subarachnoid hemorrhage. - Patient with mild left hemiparesis, but marked ataxia, as per PT. - Continue Plavix, statin, and PT/OT. ASA held by CV surgery after the surgery. 3. Acute renal failure superimposed on stage 3 chronic kidney disease - ARF resolved, and Cr appears to be at baseline. 4. Diarrhea - Resloved; suspect antibiotic induced. 5. Diabetes - On ozympic at home w Zigduo, amaryl and metformin - Currently on lantus, will increase the dose as needed; continue SSI 6. HLD (hyperlipidemia) - Continue high intensity statin 7. HTN (hypertension) - Patient on Nicardipine drip after surgery. - Continue other anti-hypertensive agents. 8. PVD (peripheral vascular disease) - Arterial doppler suggests severe PAD involving bilateral LE. Left Fem Pop graft is patent. - Continue ASA and Plavix. 9. Chronic ulcer of left leg - Xray negative for bony involvement. - Wound culture: Staph Epi; will d/c antibiotics and continue local wound care. 10. Hyponatremia - Stable. 11. UTI (urinary tract infection) - Suspected, but ruled out; urine culture with growth of multiple organisms. Consultants: cardiology, cardiovascular surgery, neurology Quality: Gen Med Crit Care VTE ProphylaxisVTE prophylaxis initiated: yes Current MedicationsCurrent medication review:I attest that the foregoing medication list in the medical record is true, accurate, and complete to the best of my knowledge. at 1830 RPT #:[id number] OF REPORTPRProgress gngi7203-06-74J71:50:00Z.[id number] able for patient xvrjZMRWNORGJOUIAR0384-68-68H64:30:19 [facility] 2022-02-11 12:39:00 [id number] Q2at0P8OEPbQj0qTGC4y8TgMARIiJ tDTtZbU+5218xzSk2ur8Q9QaGDk9937-38-32T06:39:18141 2-[address] [place] [id number] patient name: kaylee lezama admit date: 02/03/22account no: [id number] [email or web address] age: 61 report type: operative report sex: m admitting physician:maximilian sepulveda md attending physician:maximilian sepulveda md operation date: 02/11/2022 cardiac surgery service preoperative diagnoses: recurrent right internal carotid artery stenosis,status post right cerebrovascular accident, diabetes mellitus, hypertension, andhyperlipidemia. postoperative diagnoses: recurrent right internal carotid artery stenosis,status post right cerebrovascular accident, diabetes mellitus, hypertension, andhyperlipidemia. procedure: left cvp insertion, ultrasound-guided access with sonosite in leftsubclavian vein, redo right carotid endarterectomy, and hemashield patcharterioplasty. surgeon: brady lerma m.d. 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 following introduction of satisfactory general anesthesia andplacement of appropriate monitoring line, gunderson catheter shoulders and elbowspadded in usual fashion. left subclavian cvp was placed using seldingerpercutaneous guidewire technique. ultrasound-guided access with sonosite in theleft subclavian vein. the patient had neck extended to the left 45 degreeangle. incision made along the anterior border of the sternocleidomastoidmuscle. we dissected down through the dense scar tissue. i took significantamount of additional dissecting time and work to dissect out the cheesh-na vesselsfrom the scar tissue. once we had the common carotid, external carotid,internal carotid completely dissected free, we placed vessel loops. the patientstill was heparinized. clamps were placed. arteriotomy of the common carotidthrough a very, very tight heaped up atherosclerotic mass of recurrent plaquewith high-grade stenosis 90% and lot of deep ulcerated plaque and much lot ofirregularity. we extended beyond this into the internal carotid artery where itwas more clean and smooth. we did the endarterectomy. the plaque feathered outnicely. we had already irrigated with heparin saline and placed a shunt. ondoing the endarterectomy we then excised most of the previous patch. we thenirrigated again with heparin saline solution. then a hemashield patch patient name: kaylee lezama arterioplasty closure with running 5-0 prolene suture was done. prior to patchclosure completion, the shunt was removed. all branches allowed to backbleed toflush air debris and patch closure was complete. clamps released. excellentpulse by palpation and doppler within the incisions. protamine given,hemostasis achieved. wounds were irrigated with antibiotic saline solution.hemostasis was achieved. miguel a-henderson drain was placed and secured with 2-0silk. wound was closed in layers in usual fashion. dressing applied. thepatient to recovery in stable condition. dictated by: brady lerma md wt: op:fidel/wolf/ntsdd: 02/11/2022 12:39:49dt: 02/11/2022 14:35:40conf#: [id number]/did#: [id number] authenticated and edited by brady lerma md on 02/20/22 8:06:06 pm electronically signed by brady lerma md on 02/20/22 at 0807 patient name: kaylee lezama whfarh0036-67-36L45:35:00Z.[id number] lable for patient nuofHCHGKUGXFQXROP0900-38-19A78:07:47 [facility] 2022-02-11 12:19:00 [id number] pAljiNllDXAlJZQ4IUsYmhCy77Cew 7gNS/+3CGW/nqBGv5Skj1ZSmvrRtV2o7432-78-10E60:19:0 0 [facility] ([facility])Brief Op NoteREPORT#:[id number] REPORT STATUS: SignedDATE:02/11/22 TIME: 1219 PATIENT: KAYLEE LEZAMA UNIT #: [id number]#: [id number] [facility] AGE: 61 SEX: M ATTEND: Kevin Owusu MDADM AUTHOR: Brady Lerma MD * ALL edits or amendments must be made on the electronic/computer document * Op/Inv Proc Note - BriefPre-procedure diagnosis:Recurrent KATHE stenosisH/O CVAPost-procedure diagnosis: same as pre procedure dxProcedures performed:Redo right carotid endarterectomy with hemashield patch arterioplastyInsertion of left subclavian central line using sonosite US guidancePrimary Surgeon:Brady JallohnAssistant(s): BRADEN Joy DPM, KON5Tzqvwwxnehmorpxc:Dr. Sergio HamptonAnesthesia: general anesthesiaFindings:See detailed op reportComplications: noneEstimated blood loss in ml's: 50ccSpecimens removed/altered: Right carotid plaqueDrain(s): Gunderson Catheter Placed, Alden drainApproach: openWound class: cleanDisposition: ICU, stable at 1224 RPT #:[id number] OF REPORTOPOperative ixwasu3087-93-86F02:19:00Z.[id number] ilable for patient didgXFLCJMMSYQGPOV8425-24-41Q28:24:21 [facility] 2022-02-10 21:13:00 [id number] dMPIboq6uU6SwKdBLBgei3ZQUjSZT TANRM/RBOKhlpvFeoN7EeqfWXc7Gkbp4765-85-69H74:13:0 0 [facility] ([facility])Cardiovascular Surgery ProgREPORT#:[id number] REPORT STATUS: SignedDATE:02/10/22 TIME: 2112 PATIENT: KAYLEE LEZAMA UNIT #: [id number]#: [id number] [facility] [birth year] AGE: 61 SEX: M ATTEND: Kevin Owusu [facility] AUTHOR: Dang Marina * ALL edits or amendments must be made on the electronic/computer document * SubjectivePatient reports:No: complaints. Nursing reports:No: complaints. Comments:The patient was seeen at the bedside earlier today. He is doing well without anynew complaints. Review of SystemsConstitutional:Reports: generalized weakness. Denies: chills, fatigue, fever. Respiratory:Denies: MATA (dyspnea on exertion), SOB. Cardiovascular:Denies: chest pain. Objective GeneralVS/I O:Last Documented: Result Date Time Pulse Ox 93 02/10 1949 B/P 168/78 02/10 1949 B/P Mean 107.8 02/10 1949 O2 Delivery Room air 02/10 1949 Temp 36.8 02/10 1949 Pulse 76 02/10 1949 Resp 14 02/10 1949 FiO2 21 02/09 1034 24 hour I O ending at 0700: 02/10 0700 02/09 1900 Intake Total 150 Output Total 350 Balance -200 Intake, Oral 150 Number Voids 1 Output, Urine 350 PATIENT WEIGHT: Weight (lb): 154Weight (oz): 10.82Weight (kg): 69.853 Medications:Active Meds + DC'd Last 24 HrsAmlodipine Besylate (NORVASC) 10 MG DAILY PO Cefazolin Sodium (ANCEF) 1 GM PREOP IV (CKD) Sodium Chloride (SODIUM CHLORIDE 0.9%) 1,000 ML Q10H IV Hydralazine HCl (APRESOLINE) 25 MG Q8HR PO Insulin Glargine (Lantus/Semglee) 22 UNITS BEDTIME SUBQ Diphenoxylate HCl/Atropine (LOMOTIL (C-V)) 2 UDTAB Q6H PRN PRN PO Levothyroxine Sodium (Synthroid) 12.5 MCG DAILY@0630 PO Wound Care/Dressing Products (MEDIHONEY) 1 LEONEL DAILY TOPICAL (CKD) Amlodipine Besylate (NORVASC TAB) 5 MG DAILY PO (DC) Losartan Potassium (COZAAR) 100 MG DAILY PO Clopidogrel Bisulfate (PLAVIX) 75 MG DAILY PO Famotidine (PEPCID) 20 MG BID PO Aspirin (CHILDREN'S ASPIRIN) 81 MG DAILY PO Atorvastatin Calcium (LIPITOR) 80 MG BEDTIME PO Insulin Human Lispro (HumaLOG) MEDIUM DOSE SLIDING SCALE AC HS SUBQ Nicotine (NICODERM) 14 MG DAILY PRN PRN TRANSDERM Acetaminophen (TYLENOL) 650 MG Q6H PRN PRN PO Dextrose/Water (DEXTROSE 50% IN WATER) 12.5 GM ASDIR PRN IV Dextrose/Water (DEXTROSE 50% IN WATER) 25 GM ASDIR PRN IV Hydralazine HCl (APRESOLINE) 10 MG Q6H PRN PRN IV Enoxaparin Sodium (LOVENOX) 40 MG Q24H SUBQ (DC) Physical ExamGeneral appearance: alert, awake, oriented, no acute distressNeck: non-tender, no masses or swellingCardiovascular: BP/pulses equal bilat., normal heart sounds, regular rate rhythmRespiratory: aerating wellAbdomen: soft, non-tender, no distentionExtremities: no 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, oriented X 3 ResultsFindings/Data:Laboratory Tests 02/10 02/10 02/10 02/10 02/10 1948 1616 1511 1219 0835 Chemistry Sodium (137 - 145 MMOL/L) 133 L Potassium (3.5 - 5.1 MMOL/L) 4.6 Chloride (98 - 107 MMOL/L) 100 Carbon Dioxide (22 - 30 MMOL/L) 25 BUN (9 - 20 MG/DL) 24 H Creatinine (0.66 - 1.25 MG/DL) 1.40 H Glomerular Filtr Rate 51 Glucose (74 - 106 MG/DL) 242 H POC Glucose (60 - 99 MG/DL) 264 H 225 H 249 H 253 H Calcium (8.4 - 10.2 MG/DL) 8.9 Laboratory Tests 02/10 1511 Coagulation INR (0.86 - 1.14) 1.0 APTT (26.2 - 35.4 SECONDS) 37.3 H PT Patient/Control Mix (9.4 - 12.7 SECONDS) 11.0 Laboratory Tests 02/10 1511 Hematology WBC (3.8 - 9.8 K/MM3) 9.2 RBC (3.95 - 5.67 M/MM3) 3.99 Hgb (12.4 - 16.7 G/DL) 12.1 L Hct (35.9 - 49.5 %) 37.4 MCV (81.7 - 96.1 fL) 94 MCH (27.6 - 33.2 pg) 30.3 MCHC (32.9 - 35.5 %) 32.4 L RDW (12.1 - 15.2 %) 12.7 Plt Count (129 - 368 K/MM3) 339 MPV (7.4 - 10.4 fl) 9.6 Neut % (Auto) (43 - 75 %) 73.1 Lymph % (Auto) (14 - 44 %) 12.2 L [place] % (Auto) (4 - 13 %) 11.8 Eos % (Auto) (0 - 6 %) 1.8 Baso % (Auto) (0 - 2 %) 0.8 Neut # (Auto) (2.0 - 7.6 K/mm3) 6.72 Lymph # (Auto) (1.0 - 3.8 K/mm3) 1.12 [place] # (Auto) (0.1 - 0.8 K/mm3) 1.08 H Eos # (Auto) (0.0 - 0.2 K/mm3) 0.17 Baso # (Auto) (0.0 - 0.2 K/mm3) 0.07 Immature Gran % (0.0 - 2.0 %) 0.3 Nucleated RBC % (0 - 1.0 %) 0.0 Nucleated RBCs # (Man) (0.0 - 0.1 K/mm3) 0.00 Radiology data:Recent Impressions:RADIOLOGY - XR CHEST 1V 02/10 1410 Report Impression - Status: SIGNED Entered: 02/10/2022 1438 IMPRESSION:No acute cardiopulmonary process. Impression By: Marie - Liza Elise MD Diagnosis, Assessment PlanFree Text A P:Severe recurrent KATHE stenosisH/O bilateral carotid endarterectomiesAcute RCVA with left hemiparesisDiabetesHypertension PLAN: To Or tomorrow for a redo right carotis endarterectomyThe procedure, possible risks, alternatives, complications as well as the inherent risks of surgery were all explained to the patient whoo understands, accepts and wants to proceed. at 2121 RPT #:[id number] OF REPORTPRProgress qdqq8891-26-62M79:13:00Z.[id number] able for patient kpeiTAWIPCDYMEFXAN0110-38-90P83:28:24 [facility] 2022-02-10 21:13:00 [id number] dyHdGG6XDKHQqrWiWLWls3qyiBSfP BfhwkFG9oRqjEusZe+CtYdNGKh/9102-78-10F41:13:00 [facility])cardiovascular surgery progreport#:[id number] report status: signeddate:02/10/22 time: 2112 patient: kaylee lezama unit #: [id number]#: [id number] [address]: [birth year] age: 61 sex: m attend: maximilian sepulveda mdadm dt: 02/03/22 author: dang marina * all edits or amendments must be made on the electronic/computer document * subjectivepatient reports:no: complaints. nursing reports:no: complaints. comments:the patient was seeen at the bedside earlier today. he is doing well without anynew complaints. review of systemsconstitutional:reports: generalized weakness. denies: chills, fatigue, fever. respiratory:denies: mata (dyspnea on exertion), sob. cardiovascular:denies: chest pain. objective generalvs/i o:last documented: result date time pulse ox 93 02/10 1949 b/p 168/78 02/10 1949 b/p mean 107.8 02/10 1949 o2 delivery room air 02/10 1949 temp 36.8 02/10 1949 pulse 76 02/10 1949 resp 14 02/10 1949 fio2 21 02/09 1034 24 hour i o ending at 0700: 02/10 0700 02/09 1900 intake total 150 output total 350 balance -200 intake, oral 150 number voids 1 output, urine 350 patient weight: weight (lb): 154weight (oz): 10.82weight (kg): 69.853 medications:active meds + dc'd last 24 hrsamlodipine besylate (norvasc) 10 mg daily po cefazolin sodium (ancef) 1 gm preop iv (ckd) sodium chloride (sodium chloride 0.9%) 1,000 ml q10h iv hydralazine hcl (apresoline) 25 mg q8hr po insulin glargine (lantus/semglee) 22 units bedtime subq diphenoxylate hcl/atropine (lomotil (c-v)) 2 udtab q6h prn prn po levothyroxine sodium (synthroid) 12.5 mcg daily@0630 po wound care/dressing products (medihoney) 1 leonel daily topical (ckd) amlodipine besylate (norvasc tab) 5 mg daily po (dc) losartan potassium (cozaar) 100 mg daily po clopidogrel bisulfate (plavix) 75 mg daily po famotidine (pepcid) 20 mg bid po aspirin (children's aspirin) 81 mg daily po atorvastatin calcium (lipitor) 80 mg bedtime po insulin human lispro (humalog) medium dose sliding scale ac hs subq nicotine (nicoderm) 14 mg daily prn prn transderm acetaminophen (tylenol) 650 mg q6h prn prn po dextrose/water (dextrose 50% in water) 12.5 gm asdir prn iv dextrose/water (dextrose 50% in water) 25 gm asdir prn iv hydralazine hcl (apresoline) 10 mg q6h prn prn iv enoxaparin sodium (lovenox) 40 mg q24h subq (dc) physical examgeneral appearance: alert, awake, oriented, no acute distressneck: non-tender, no masses or swellingcardiovascular: bp/pulses equal bilat., normal heart sounds, regular rate rhythmrespiratory: aerating wellabdomen: soft, non-tender, no distentionextremities: no edemaneuro/amusement ride inspector: alert, oriented x 3 resultsfindings/data:laboratory tests 02/10 02/10 02/10 02/10 02/10 1948 1616 1511 1219 0835 chemistry sodium (137 - 145 mmol/l) 133 l potassium (3.5 - 5.1 mmol/l) 4.6 chloride (98 - 107 mmol/l) 100 carbon dioxide (22 - 30 mmol/l) 25 bun (9 - 20 mg/dl) 24 h creatinine (0.66 - 1.25 mg/dl) 1.40 h glomerular filtr rate 51 glucose (74 - 106 mg/dl) 242 h poc glucose (60 - 99 mg/dl) 264 h 225 h 249 h 253 h calcium (8.4 - 10.2 mg/dl) 8.9 laboratory tests 02/10 1511 coagulation inr (0.86 - 1.14) 1.0 aptt (26.2 - 35.4 seconds) 37.3 h pt patient/control mix (9.4 - 12.7 seconds) 11.0 laboratory tests 02/10 1511 hematology wbc (3.8 - 9.8 k/mm3) 9.2 rbc (3.95 - 5.67 m/mm3) 3.99 hgb (12.4 - 16.7 g/dl) 12.1 l hct (35.9 - 49.5 %) 37.4 mcv (81.7 - 96.1 fl) 94 mch (27.6 - 33.2 pg) 30.3 mchc (32.9 - 35.5 %) 32.4 l rdw (12.1 - 15.2 %) 12.7 plt count (129 - 368 k/mm3) 339 mpv (7.4 - 10.4 fl) 9.6 neut % (auto) (43 - 75 %) 73.1 lymph % (auto) (14 - 44 %) 12.2 l mono % (auto) (4 - 13 %) 11.8 eos % (auto) (0 - 6 %) 1.8 baso % (auto) (0 - 2 %) 0.8 neut # (auto) (2.0 - 7.6 k/mm3) 6.72 lymph # (auto) (1.0 - 3.8 k/mm3) 1.12 mono # (auto) (0.1 - 0.8 k/mm3) 1.08 h eos # (auto) (0.0 - 0.2 k/mm3) 0.17 baso # (auto) (0.0 - 0.2 k/mm3) 0.07 immature gran % (0.0 - 2.0 %) 0.3 nucleated rbc % (0 - 1.0 %) 0.0 nucleated rbcs # (man) (0.0 - 0.1 k/mm3) 0.00 radiology data:recent impressions:radiology - xr chest 1v 02/10 1410 report impression - status: signed entered: 02/10/2022 1438 impression:no acute cardiopulmonary process. impression by: marie - liza elise md diagnosis, assessment planfree text a p:severe recurrent kathe stenosish/o bilateral carotid endarterectomiesacute rcva with left hemiparesisdiabeteshypertension plan: to or tomorrow for a redo right carotis endarterectomythe procedure, possible risks, alternatives, complications as well as the inherent risks of surgery were all explained to the patient whoo understands, accepts and wants to proceed. electronically signed by dang marina on 02/10/22 at 2121electronically signed by brady lerma md on 02/28/22 at 1911 rpt #:[id number] of reportPRProgress horl2302-08-46N05:13:00Z.[id number] able for patient wlodMXDBOOFUNEBUXD1980-48-47R16:11:54 [facility] 2022-02-10 17:35:00 [id number] +svhdYLDPfuw0dIiSFPPDIL3d+HT2 8CUWERyJC0tijIW9Es68L2h/U7eAoye6721-91-32B81:35:0 0 [facility] ([facility])Neurology Progress NoteREPORT#:[id number] REPORT STATUS: SignedDATE:02/10/22 TIME: 1735 PATIENT: KAYLEE LEZAMA UNIT #: [id number]#: [id number] [address] [birth year] AGE: 61 SEX: M ATTEND: Kevin Owusu MDADM AUTHOR: Rena Sanchez MD R1 * ALL edits or amendments must be made on the electronic/computer document * SubjectiveHPI:Px is a 61yo M with pmhx of HTN, DM, COPD and status post bilateral carotid endarterectomy. Px is seen comfortably lying in bed. He is awaiting surgery. Left sided weakness has improved and he denies headache, dizziness, and no problems with speech or swallowing. He states PT/OT is helping and requested to have it done twice a day. Informed px that PT/OT is only done once a day and he states understanding. Review of SystemsConstitutional:Denies: chills, fever. ENT:Denies: hearing loss, mouth pain, sore throat. Respiratory:Denies: MATA (dyspnea on exertion), SOB, wheezing. Cardiovascular:Denies: chest pain, edema. GI:Denies: abdominal pain, GERD, nausea, vomiting. Objective GeneralVS:Last Documented: Result Date Time Pulse Ox 96 02/10 1545 B/P 158/71 02/10 1545 B/P Mean 100.3 02/10 1545 Temp 37.3 02/10 1545 Pulse 76 02/10 1545 Resp 18 02/10 1545 O2 Delivery Room air 02/10 0542 FiO2 21 02/09 1034 PATIENT WEIGHT: Weight (lb): 154Weight (oz): 10.82Weight (kg): 69.853 MedicationsCurrent Home MedicationsOMEPRAZOLE ER 20 MG PO BID ALBUTEROL (PROAIR HFA 90 MCG/ACT 8.5 GM) 2 PUFF INH RTQ4H PRN PRN DYSPNEA/WHEEZING DAPAGLIFLOZIN/metFORMIN 10/1,000 MG (XIGDUO XR 10/1,000 MG) 1 TAB PO DAILY amLODIPine (NORVASC) 5 MG PO DAILY metFORMIN (GLUCOPHAGE) 1,000 MG PO BID LOSARTAN (COZAAR) 100 MG PO DAILY GABAPENTIN (NEURONTIN) 200 MG PO BID ATORVASTATIN (LIPITOR) 40 MG PO BEDTIME GLIMEPIRIDE (AMARYL) 4 MG PO DAILY [OZEMPIC] (Unknown Dose) WEEKLY Active Meds + DC'd Last 24 HrsAmlodipine Besylate (NORVASC) 10 MG DAILY PO Cefazolin Sodium (ANCEF) 1 GM PREOP IV (CKD) Hydralazine HCl (APRESOLINE) 25 MG Q8HR PO Insulin Glargine (Lantus/Semglee) 22 UNITS BEDTIME SUBQ Diphenoxylate HCl/Atropine (LOMOTIL (C-V)) 2 UDTAB Q6H PRN PRN PO Doxycycline Monohydrate (VIBRAMYCIN) 100 MG Q12HR PO (DC) Levothyroxine Sodium (Synthroid) 12.5 MCG DAILY@0630 PO Wound Care/Dressing Products ([facility]) 1 LEONEL DAILY TOPICAL (CKD) Amlodipine Besylate (NORVASC TAB) 5 MG DAILY PO (DC) Losartan Potassium (COZAAR) 100 MG DAILY PO Clopidogrel Bisulfate (PLAVIX) 75 MG DAILY PO Famotidine (PEPCID) 20 MG BID PO Aspirin (CHILDREN'S ASPIRIN) 81 MG DAILY PO Atorvastatin Calcium (LIPITOR) 80 MG BEDTIME PO Insulin Human Lispro (HumaLOG) MEDIUM DOSE SLIDING SCALE AC HS SUBQ Nicotine (NICODERM) 14 MG DAILY PRN PRN TRANSDERM Acetaminophen (TYLENOL) 650 MG Q6H PRN PRN PO Dextrose/Water (DEXTROSE 50% IN WATER) 12.5 GM ASDIR PRN IV Dextrose/Water (DEXTROSE 50% IN WATER) 25 GM ASDIR PRN IV Hydralazine HCl (APRESOLINE) 10 MG Q6H PRN PRN IV Enoxaparin Sodium (LOVENOX) 40 MG Q24H SUBQ (DC) Nutrition assessment:The data set between the solid lines has been imported from the dietitian's assessment. Any exceptions have been noted under Provider comments. BMI Calculated: 19.9Nutrition related diagnosis: OverweightNutrition diagnosis details: BMI 25-29.9Nutrition problem: Excessive carb intakeNutrition etiology: Knowledge deficitNutrition signs and symptoms: Pt reported following a , [facility], never, received DM education, A1c 11Nutrition prescription: 1. Continue diabetic diet 2. Provide education as needed, monitor BG labsDietitian name: Pratibha Springer, DIETAssessment completed: 02/10/22 Provider comments on imported dietitian assessment: Physical ExamGeneral appearance: alert, awake, oriented, conversationalHead/Eyes: atraumatic, normocephalicENT: moist mucosal membranesNeck: full range of motion, non-tenderCardiovascular: regular rate and rhythm, normal heart sounds, no murmurRespiratory: aerating well, clear to auscultation, no distressAbdomen: non-tender, normal bowel sounds, soft, no distentionExtremities: moves all, pulses present, no edemaNeuro comment:Patient is awake and alert, oriented to person, place, month, and year. Follows commands. Speech is clear. lathmaker: ocular movements intact. No visual field defect noted. Slight left sided facial asymmetry. Tongue is midline. Motor: Strength issymmetric on all 4 extremities. No abnormal movements noted. Sensory: appreciates touch and pain over all 4 extremities. Coordination: Rapid alternating movements and fine finger movements are intact Diagnosis, Assessment PlanFree Text A P:IMPRESSION:1. Acute multiple right cerebrovascular accident with left hemiparesis2. Severe right carotid artery stenosis up to 90% and also bilateral carotid artery severe stenosis intracranially3. Renal insufficiency4. Uncontrolled diabetes mellitus with highly elevated hemoglobin A1c5. Severe hyperlipidemia6. Currently stable neurologically with no acute changes; waiting for endarterectomy RECOMMENDATIONS:1. Continue aspirin 81mg, Plavix 75mg, atorvastatin 80 mg at bedtime2. Continue management of blood sugar3. Continue DVT prophylaxis4. Continue physical, occupational, and speech therapy5. Counselled px on the importance of controlling blood sugar and cholesterol with medication compliance6. Scheduled for right carotid endarterectomy at the end of the weekConsultants: cardiology, cardiovascular surgery, neurology Quality: Gen Med Crit Care VTE ProphylaxisVTE prophylaxis initiated: yes Current MedicationsCurrent medication review:I attest that the foregoing medication list in the medical record is true, accurate, and complete to the best of my knowledge. at 1604 RPT #:[id number] OF REPORTPRProgress jjue2124-19-87E87:35:00Z.[id number] able for patient mmraOEKMLLJJRQBFQW5318-90-21L48:05:07 [facility] 2022-02-10 17:35:00 [id number] bRTuGPX2iCmyciyoKY9V/uz2F4rUo pQ4v5FjGQZCPmCExaxNgKFy9DWP2772-65-87G76:35:00 [facility] progress notereport#:[id number] report status: signeddate:02/10/22 time: 1735 patient: kaylee lezama unit #: [id number]#: [id number] room/bed: [email or web address]cr90-tekb: 58 age: 61 sex: m attend: maximilian sepulveda mdadm dt: 02/03/22 author: rena sanchez md r1 * all edits or amendments must be made on the electronic/computer document * rena sanchez 02/10/22 1735:subjectivehpi:px is a 61yo m with pmhx of htn, dm, copd and status post bilateral carotid endarterectomy. px is seen comfortably lying in bed. he is awaiting surgery. left sided weakness has improved and he denies headache, dizziness, and no problems with speech or swallowing. he states pt/ot is helping and requested to have it done twice a day. informed px that pt/ot is only done once a day and he states understanding. review of systemsconstitutional:denies: chills, fever. ent:denies: hearing loss, mouth pain, sore throat. respiratory:denies: mata (dyspnea on exertion), sob, wheezing. cardiovascular:denies: chest pain, edema. gi:denies: abdominal pain, gerd, nausea, vomiting. objective generalvs:last documented: result date time pulse ox 96 02/10 1545 b/p 158/71 02/10 1545 b/p mean 100.3 02/10 1545 temp 37.3 02/10 1545 pulse 76 02/10 1545 resp 18 02/10 1545 o2 delivery room air 02/10 0542 fio2 21 02/09 1034 patient weight: weight (lb): 154weight (oz): 10.82weight (kg): 69.853 medicationscurrent home medicationsomeprazole er 20 mg po bid albuterol (proair hfa 90 mcg/act 8.5 gm) 2 puff inh rtq4h prn prn dyspnea/wheezing dapagliflozin/metformin 10/1,000 mg (xigduo xr 10/1,000 mg) 1 tab po daily amlodipine (norvasc) 5 mg po daily metformin (glucophage) 1,000 mg po bid losartan (cozaar) 100 mg po daily gabapentin (neurontin) 200 mg po bid atorvastatin (lipitor) 40 mg po bedtime glimepiride (amaryl) 4 mg po daily [ozempic] (unknown dose) weekly active meds + dc'd last 24 hrsamlodipine besylate (norvasc) 10 mg daily po cefazolin sodium (ancef) 1 gm preop iv (ckd) hydralazine hcl (apresoline) 25 mg q8hr po insulin glargine (lantus/semglee) 22 units bedtime subq diphenoxylate hcl/atropine (lomotil (c-v)) 2 udtab q6h prn prn po doxycycline monohydrate (vibramycin) 100 mg q12hr po (dc) levothyroxine sodium (synthroid) 12.5 mcg daily@0630 po wound care/dressing products (medihoney) 1 leonel daily topical (ckd) amlodipine besylate (norvasc tab) 5 mg daily po (dc) losartan potassium (cozaar) 100 mg daily po clopidogrel bisulfate (plavix) 75 mg daily po famotidine (pepcid) 20 mg bid po aspirin (children's aspirin) 81 mg daily po atorvastatin calcium (lipitor) 80 mg bedtime po insulin human lispro (humalog) medium dose sliding scale ac hs subq nicotine (nicoderm) 14 mg daily prn prn transderm acetaminophen (tylenol) 650 mg q6h prn prn po dextrose/water (dextrose 50% in water) 12.5 gm asdir prn iv dextrose/water (dextrose 50% in water) 25 gm asdir prn iv hydralazine hcl (apresoline) 10 mg q6h prn prn iv enoxaparin sodium (lovenox) 40 mg q24h subq (dc) nutrition assessment:the data set between the solid lines has been imported from the dietitian's assessment. any exceptions have been noted under provider comments. bmi calculated: 19.9nutrition related diagnosis: overweightnutrition diagnosis details: bmi 25-29.9nutrition problem: excessive carb intakenutrition etiology: knowledge deficitnutrition signs and symptoms: pt reported following a , regular diet at [facility], never, received dm education, a1c 11nutrition prescription: 1. continue diabetic diet 2. provide education as needed, monitor bg labsdietitian name: pratibha springer, dietassessment completed: 02/10/22 provider comments on imported dietitian assessment: physical examgeneral appearance: alert, awake, oriented, conversationalhead/eyes: atraumatic, normocephalicent: moist mucosal membranesneck: full range of motion, non-tendercardiovascular: regular rate and rhythm, normal heart sounds, no murmurrespiratory: aerating well, clear to auscultation, no distressabdomen: non-tender, normal bowel sounds, soft, no distentionextremities: moves all, pulses present, no edemaneuro comment:patient is awake and alert, oriented to person, place, month, and year. follows commands. speech is clear. 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 no visual field defect noted. slight left sided facial asymmetry. tongue is midline. motor: strength issymmetric on all 4 extremities. no abnormal movements noted. sensory: appreciates touch and pain over all 4 extremities. coordination: rapid alternating movements and fine finger movements are intact diagnosis, assessment planfree text a p:impression:1. acute multiple right cerebrovascular accident with left hemiparesis2. severe right carotid artery stenosis up to 90% and also bilateral carotid artery severe stenosis intracranially3. renal insufficiency4. uncontrolled diabetes mellitus with highly elevated hemoglobin a1c5. severe hyperlipidemia6. currently stable neurologically with no acute changes; waiting for endarterectomy recommendations:1. continue aspirin 81mg, plavix 75mg, atorvastatin 80 mg at bedtime2. continue management of blood sugar3. continue dvt prophylaxis4. continue physical, occupational, and speech therapy5. counselled px on the importance of controlling blood sugar and cholesterol with medication compliance6. scheduled for right carotid endarterectomy at the end of the weekconsultants: cardiology, cardiovascular surgery, neurology quality: gen med crit care vte prophylaxisvte prophylaxis initiated: yes current medicationscurrent medication review:i attest that the foregoing medication list in the medical record is true, accurate, and complete to the best of my knowledge. dang nowak 02/24/22 4797:attestations teaching physician attestationf/u visit w/ resident:i saw the patient with the resident and agree with the resident's findings and plan. electronically signed by rena sanchez md r1 on 02/11/22 at 1604electronically signed by jerry nowak md on 02/24/22 at 1856 rpt #:[id number] of reportPRProgress iywj6124-45-09E93:35:00Z.[id number] able for patient irhqZIRMAGRKKVGGTC7585-14-16R75:48:03 [facility] 2022-02-10 14:22:00 [id number] /334M0WkfdtXeAHB5xjzJ6MAWIV TXpkUVM8MhUQXu+ruzkPTuB8l/TJNuy1104-78-90P08:22:0 0 [facility] ([facility]ph[facility] Progress NoteREPORT#:[id number] REPORT STATUS: SignedDATE:02/10/22 TIME: 1422 PATIENT: KAYLEE LEZAMA UNIT #: [id number]#: [id number] [facility] AGE: 61 SEX: M ATTEND: Kevin Owusu [facility] AUTHOR: Lele Arzola MD * ALL edits or amendments must be made on the electronic/computer document * SubjectiveChief complaint:ne new complains Objective Physical ExamHead/eyes: atraumatic, normocephalicENT: moist mucous membranesNeck: supple/no meningismus, no JVDCardiovascular: murmur (SYs ), normal heart sounds, regular rate and rhythm, pedal pulses present, no murmurRespiratory: aerating well, clear to auscultation, normal breath sounds, symmetric expansionAbdomen: non-tender, normal bowel sounds, soft, no CVA tenderness, no distentionGenitourinary: no flank pain, no urinary catheterExtremities: non-tender, normal inspection, no edema, no swelling Diagnosis, Assessment PlanFree Text A P:A 61 Y/o man with PMHX of poorly controlled DM, HTN, PVD , who was admitted to [facility] for DKA managament, and UMESH , nephrology consulted for UMESH and electrolytes management, pt noticed to have change/no improvement in mental status , Neck MRA showed signifcant carotid stenosis , pt transfered for higher level of care Today No overnight ewvents stable VS [facility] l[facility]commend to start on NS at 70ml/hr 10-12hr before the surgery and cont for 10-12 hrs after the surgery A/P #UMESH 2nd to pre- renal / Glucodiuresis 2nd to DKA improving now platue at 1.3 s/p Contrast in Feb 04:peak Cr 1.7 at [facility] now cor down to 1.3 cont lisniopril pt to recive IV contrast 02/06, cont IVF for one more dasy avoid NSAID renal dose medciations continue losartan # Poorly controlled DM s/p DKA BS is better controlled now SSI #HTN uncontrolledincrease norvasc 10 mg qd start hydralazin 25 tid # Carotid artery stenosis F/u -CTA neck showing 90% R ICA stenosis, Dr. Lerma -Planning for endarterectomy at the end of the week with Dr. Rodríguezcheduled for CE[facility] lrecommend to start on NS at 70ml/hr 10-12hr before the surgery and cont for 10-12 hrs after the surgery #diarrhea resolved possibly due to ABx #hypoakelmia and hypomagnesemia resolved replaced as needed Time spent 45 minutes including examining the patient face to face , reviewing the data, lab, andand radiology , placing order, discussing the case with the patient an Nurse staff at 1424 RPT #:[id number] OF REPORTPRProgress kwkw1873-67-05T90:22:00Z.[id number] able for patient aiicRULBUFXOUJULKZ0089-68-83G14:24:26 [facility] 2022-02-10 13:53:00 [id number]/ uFSJ4AOWIiYeo8cdCn8ZM5Sn0i9Jz 75HHF2cthleqDx9kh1BerIu54MfmfWj9204-45-79I60:53:0 0 [facility] ([facility]Hospitalist Progress NoteREPORT#:[id number] REPORT STATUS: SignedDATE:02/10/22 TIME: 1353 PATIENT: KAYLEE LEZAMA UNIT #: [id number]#: [id number] [facility] [birth year] AGE: 61 SEX: M ATTEND: Kevin Owusu AUTHOR: Kevin Owusu MD * ALL edits or amendments must be made on the electronic/computer document * SubjectiveChief complaint:carotid stenosisHPI:Patient reports feeling OK; no further episode of diarrhea. No other complaints. Objective GeneralVS/I O:Vital Signs: Date Time Temp Pulse Resp B/P B/P Pulse O2 O2 Flow FiO2 Mean Ox Delivery Rate 02/10 1128 98.6 73 18 153/69 97.3 94 02/10 0659 98.6 70 18 148/88 108.0 96 02/10 0542 98.2 78 16 150/77 101.7 94 Room air 02/10 0056 98.8 73 18 135/94 107.5 96 02/09 1919 97.7 85 16 128/63 84.6 95 Room air 02/09 1544 98.1 85 16 143/67 92.8 95 24 hour I O ending at 0700: 02/10 0700 02/09 1900 Intake Total 150 Output Total 350 Balance -200 Intake, Oral 150 Number Voids 1 Output, Urine 350 PATIENT WEIGHT: Weight (lb): 154Weight (oz): 10.82Weight (kg): 69.853 Medications:Active Meds + DC'd Last 24 HrsInsulin Glargine (Lantus/Semglee) 22 UNITS BEDTIME SUBQ Diphenoxylate HCl/Atropine (LOMOTIL (C-V)) 2 UDTAB Q6H PRN PRN PO Doxycycline Monohydrate (VIBRAMYCIN) 100 MG Q12HR PO (DC) Levothyroxine Sodium (Synthroid) 12.5 MCG DAILY@0630 PO Wound Care/Dressing Products (MEDIHONEY) 1 LEONEL DAILY TOPICAL (CKD) Amlodipine Besylate (NORVASC TAB) 5 MG DAILY PO Losartan Potassium (COZAAR) 100 MG DAILY PO Clopidogrel Bisulfate (PLAVIX) 75 MG DAILY PO Famotidine (PEPCID) 20 MG BID PO Aspirin (CHILDREN'S ASPIRIN) 81 MG DAILY PO Atorvastatin Calcium (LIPITOR) 80 MG BEDTIME PO Insulin Human Lispro (HumaLOG) MEDIUM DOSE SLIDING SCALE AC HS SUBQ Nicotine (NICODERM) 14 MG DAILY PRN PRN TRANSDERM Acetaminophen (TYLENOL) 650 MG Q6H PRN PRN PO Dextrose/Water (DEXTROSE 50% IN WATER) 12.5 GM ASDIR PRN IV Dextrose/Water (DEXTROSE 50% IN WATER) 25 GM ASDIR PRN IV Hydralazine HCl (APRESOLINE) 10 MG Q6H PRN PRN IV Enoxaparin Sodium (LOVENOX) 40 MG Q24H SUBQ Physical ExamGeneral appearance: awake, no acute distress, conversationalHead/Eyes: atraumatic, normal conjunctiva/sclera, normocephalic, PERRLENT: poor dentition, moist mucosal membranes, normal ear left, normal ear rightNeck: full range of motion, non-tender, carotid bruit bilateralCardiovascular: normal heart sounds, regular rate rhythmRespiratory: aerating well, clear to auscultation, symmetric expansionAbdomen: distended, non-tender, normal bowel sounds, soft, no distentionGenitourinary: no urinary catheterExtremities: moves all, no clubbing, no cyanosis, no edemaMusculoskeletal: normal inspection, painless range of motion, no 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 ResultsFindings/Data:Laboratory Tests 02/10 02/10 02/09 02/09 1219 0835 1919 1725 Chemistry POC Glucose (60 - 99 MG/DL) 249 H 253 H 220 H 254 H Results: no new labs, vital signs reviewed, vital signs stable, current med profile rev'd Diagnosis, Assessment PlanProblem List/A P: 1. Diarrhea - Resloved; suspect antibiotic induced. 2. Acute cerebrovascular accident (CVA) due to occlusion of right carotid artery - MRI brain revealed: Multifocal areas of acute infarct involving the right frontal lobe, middle frontal gyrus, single cortex of the right occipital lobe, and in the frontal-parietal white matter representing watershed ischemia territory. Minimal extra-axial FLAIR and T1 hyperintensity signal seen adjacent to the right occipital infarct, possibly representing trace subarachnoid hemorrhage. - Patient with mild left hemiparesis, but marked ataxia, as per PT. - Continue ASA, Plavix, statin, and PT/OT. 3. Bilateral carotid artery stenosis - Approximately 90% stenosis on right, and 75% on left as per CTA neck and brain. - H/O right CEA. - For redo right CEA on 02/11/2022. - Continue ASA and Plavix. 4. Acute renal failure superimposed on stage 3 chronic kidney disease - ARF resolved, and Cr appears to be at baseline. 5. Diabetes - On ozympic at home w Zigduo, amaryl and metformin - Currently on lantus, will increase the dose as needed; continue SSI 6. HLD (hyperlipidemia) - Continue high intensity statin 7. HTN (hypertension) - Occasional high readings; Amlodipine increased to 10 mg, and hydralazine added by Nephrology. - Continue Losartan. 8. PVD (peripheral vascular disease) - Arterial doppler suggests severe PAD involving bilateral LE. Left Fem Pop graft is patent. - Continue ASA and Plavix. 9. Chronic ulcer of left leg - Xray negative for bony involvement. - Wound culture: Staph Epi; will d/c antibiotics and continue local wound care. 10. Hyponatremia - Stable. 11. UTI (urinary tract infection) - Suspected, but ruled out; urine culture with growth of multiple organisms. Consultants: cardiology, cardiovascular surgery, neurology Quality: Gen Med Crit Care VTE ProphylaxisVTE prophylaxis initiated: yes Current MedicationsCurrent medication review:I attest that the foregoing medication list in the medical record is true, accurate, and complete to the best of my knowledge. at 1908 [facility] #:[id number] OF REPORTPRProgress yelr2831-57-90B61:53:00Z.[id number] able for patient lrwgHWVQMRSKAIPJAK9229-13-41X74:15:04 [facility] 23:41:00 [id number] czv+1QIaAqnFObUfL/QLSacam2McZ 5/2IYc1eTeg3L25t5/MiWMBvedg5884-95-82X70:41:60528 1-0004 [place] [address] patient name: kaylee lezama admit date: 02/03/22account no: [id number] room no: z.si06 age: 61 report type: progress note sex: m admitting physician:maximilian sepulveda md attending physician:maximilian sepluveda md date: 02/09/2022 the patient had carotid duplex imaging done. this does confirm a very grade 80%to 99% stenosis of the right internal carotid artery based on images and alsobased on doppler velocities. the patient is scheduled for a redo right carotidendarterectomy on monday. this will be done in the morning. dictated by: brady lerma md wt: pn:zalayna/wolf/ntsdd: 02/09/2022 23:41:48dt: 02/10/2022 00:17:50conf#: [id number]/did#: [id number] authenticated by brady lerma md on 02/20/2022 08:05:37 pm electronically signed by brady lerma md on 02/20/22 at 0805 patient name: kaylee lezama algj4946-65-12N38:17:00Z.[id number] ble for patient kxroNALAKXKRGRXSJF5881-07-82S43:06:17 [facility] 2022-02-09 20:15:00 [id number] qOTyNiwQCGN6X6nsyRJc3zVDhESp+ wJ6Ef57NWO2NED9nLkUR3+rliXjKLi85711-29-45B93:15:0 0 [facility] ([facility])Nephrology Progress NoteREPORT#:[id number] REPORT STATUS: SignedDATE:02/09/22 TIME: 2014 PATIENT: KAYLEE LEZAMA UNIT #: [id number]#: [id number] [facility] [birth year] AGE: 61 SEX: M ATTEND: Kevin Owusu MDADM AUTHOR: Karel Burgess MD * ALL edits or amendments must be made on the electronic/computer document * SubjectiveChief complaint:ne new complains Objective Physical ExamHead/eyes: atraumatic, normocephalicENT: moist mucous membranesNeck: supple/no meningismus, no JVDCardiovascular: murmur (SYs ), normal heart sounds, regular rate and rhythm, pedal pulses present, no murmurRespiratory: aerating well, clear to auscultation, normal breath sounds, symmetric expansionAbdomen: non-tender, normal bowel sounds, soft, no CVA tenderness, no distentionGenitourinary: no flank pain, no urinary catheterExtremities: non-tender, normal inspection, no edema, no swelling Diagnosis, Assessment PlanFree Text A P:A 61 Y/o man with PMHX of poorly controlled DM, HTN, PVD , who was admitted to [facility] for DKA managament, and UMESH , nephrology consulted for UMESH and electrolytes management, pt noticed to have change/no improvement in mental status , Neck MRA showed signifcant carotid stenosis , pt transfered for higher level of care Today No overnight ewvents stable VS scheduled for CEA on lrecommend to start on NS at 70ml/hr 10-12hr before the surgery and cont for 10-12 hrs after the surgery A/P #UMESH 2nd to pre- renal / Glucodiuresis 2nd to DKA improving now platue at 1.3 s/p Contrast in Feb 04:peak Cr 1.7 at [facility] now cor down to 1.3 cont lisniopril pt to recive IV contrast 02/06, cont IVF for one more dasy avoid NSAID renal dose medciations continue losartan # Poorly controlled DM s/p DKA BS is better controlled now SSI #HTN BP controlled nowcontinue losartan # Carotid artery stenosis F/u -CTA neck showing 90% R ICA stenosis, Dr. Lerma -Planning for endarterectomy at the end of the week with Dr. Rodríguezcheduled for CEA on karen lrecommend to start on NS at 70ml/hr 10-12hr before the surgery and cont for 10-12 hrs after the surgery #diarrhea resolved possibly due to ABx #hypoakelmia and hypomagnesemia resolved replaced as needed Time spent 45 minutes including examining the patient face to face , reviewing the data, lab, andand radiology , placing order, discussing the case with the patient an Nurse staff Consultants: cardiology, cardiovascular surgery, neurology at 2017 RPT #:[id number] OF REPORTPRProgress sbrp2924-71-82N40:15:00Z.[id number] able for patient mhogXVNTUYKTCWWIAA9790-49-61R28:17:56 [facility] 2022-02-09 19:44:00 [id number] vC5/EJLfX5aa/tZzs4qbYmy/8I4JB 0fUewMDv1UOx8aahsOiDXQq/bD1qxx85137-42-44I74:44:0 [id number] [place] [address] PATIENT NAME: KAYLEE LEZAMA ADMIT DATE: 02/03/22ACCOUNT NO: [id number] ROOM NO: Z.619 AGE: 61 REPORT TYPE: eCAROTID ULTRASOUND SEX: M ADMITTING PHYSICIAN:Kevin Owusu MD ATTENDING PHYSICIAN:Kevin Owusu MD *[facility]*[address] [place], [place] [address]Zyxzb Carotid Duplex Study Patient: Connie Lezama Date: 02/09/2022 BP: 111 / 61 Location: DODIE: [id number] : 1960 Age: 61 Height: 74 in / 188 cmAccession#: [id number] Gender: M Weight: 154 lb / 70 kgBMI/BSA: 19.8 kg/m 2 / 1.9 m 2 *Ordering Physician: * Nadira Barone MD*Interpreting Physician: * Brady Lerma MD*Balance Assembler: * Sobeida Bar [address], [facility] Indications: Stroke. Study data: Carotid duplex study. Bilateral evaluation with jayeuvhnn8O imaging, color Doppler imaging, and spectral Doppler analysis.Location: Bedside. Patient status: Inpatient. Patient room number:619. Procedure: A vascular evaluation was performed. Images wereobtained using a inDinero vascular ultrasound machine. Image quality was fair. Study status: Routine. Findings Carotid/vertebral arteries:Right common carotid: The vessel has plaque.Right internal carotid: The vessel has extensive plaque. Proximalvessel lesion: There is an 80-99%stenosis. Mid-vessel lesion: There isan 80-99%stenosis.Right external carotid: The proximal vessel has plaque. PATIENT NAME: KAYLEE LEZAMA Right vertebral: The arterial flow direction is antegrade.Left vertebral: The arterial flow direction is antegrade.Left common carotid: The vessel has plaque.Left internal carotid: The proximal vessel has plaque. Proximal vessellesion: There is a 1-19%stenosis.Left external carotid: The proximal vessel has plaque. Arterial flow: Location PSV* EDV* PSV Stenosis Location PSV* EDV* PSV Stenosis ratio ratioR CCA, prox 118 10 ----- -------- L CCA, 104 21 ----- -------- proxR CCA, mid 111 9 ----- -------- L CCA, 70 13 ----- -------- midR CCA, 69 18 ----- -------- L CCA, 65 20 ----- --------distal distalR ICA, prox 362 126 3.06 80-99% L ICA, 35 17 0.34 1-19% proxR ICA, mid 349 115 2.94 80-99% L ICA, 24 13 0.23 -------- midR ICA, 81 43 0.68 -------- L ICA, 33 15 0.32 --------distal distalR ECA 128 17 ----- -------- L ECA 57 6 ----- --------R vertebral 59 18 ----- -------- L 53 18 ----- -------- vertebra l *Velocities are expressed in cm/sec, Diameters are expressed in cm Conclusions 1. Study suggests 80-99% stenosis involving the right prox/mid internal carotid artery.2. Study suggests 1-19% stenosis involving the left prox internal carotid artery.3. Antegrade flow noted in the right vertebral artery and left vertebral artery. Prepared and electronically signed by Brady Lerma MD02/09/2022 19:44 at 1944 PATIENT NAME: KAYLEE LEZAMA :44:0 0Z.[id number] for patient yulqNVIDCTDMFICYZU9809-40-17A62:44:54 [facility] 2022-02-09 19:40:00 [id number] I+LI0J7NRtKTi92t2QjtjkDZlICZo 1Qb9/Y1hfmqW1sUKXUrNWELGJ2YBc7V9281-56-75K19:40:0 [id number] [address] PATIENT NAME: KAYLEE LEZAMA ADMIT DATE: 02/03/22ACCOUNT NO: [id number] ROOM NO: Z619 AGE: 61 REPORT TYPE: eARTERIAL ULTRASOUND SEX: M ADMITTING PHYSICIAN:Kevin Owusu MD ATTENDING PHYSICIAN:Kevin Owusu MD *[facility]*[address] [place], [place] [id number] Lower Extremity Arterial Duplex Evaluation Patient: Kaylee LezamaStudy Date: 02/09/2022 BP: 111 / 61 Location: COCWUURN: [id number] : 1960 Age: 61 Height: 74 in / 188 [facility] [place] [id number] Gender: M Weight: 153.7 lb / 69.9 kgBMI/BSA: 19.8 kg/m 2 / 1.9 m 2 *Ordering Physician: Brady Patiño MD*Interpreting Physician: * Brady Lerma MD*Balance Assembler: * Sobeida Bar [facility], [facility] Indications: PVD. Study data: Lower extremity arterial duplex evaluation. Bilateralevaluation with grayscale 2D imaging, color Doppler imaging, andspectral Doppler analysis. Location: Bedside. Patient status:Inpatient. Patient room number: 619. Procedure: A vascular evaluationwas performed. Images were obtained using a inDinero vascular ultrasoundmachine. Image quality was fair. Study status: Routine. Findings Lower extremity arteries:Right common femoral: The vessel is calcified; it has severe diffusedisease.Right deep femoral: The vessel is not visualized.Right femoral: The vessel is calcified; it has severe diffuse disease.The proximal vessel has no antegrade flow. Resumption of arterial flowin the mid and distal segments. PATIENT NAME: KAYLEE LEZAMA Right popliteal: The vessel is calcified; it has moderate diffusedisease.Right anterior tibial: The vessel is calcified; it has some plaque.Right posterior tibial: The vessel is calcified; it has some plaque.Right peroneal: The vessel is calcified.Right dorsal pedal: The vessel is calcified; it has some plaque.Left common femoral: The vessel is calcified; it has severe diffusedisease and no antegrade flow.Left deep femoral: The vessel is not visualized.Left femoral: The vessel is calcified; it has severe diffuse disease.Left popliteal: The vessel is calcified; it has severe diffuse disease.Left anterior tibial: The vessel is poorly visualized.Left posterior tibial: The vessel is poorly visualized.Left peroneal: The vessel is poorly visualized.Left dorsal pedal: The vessel is calcified. Arterial flow: Location PSV* Flow analysis Location PSV* Flow analysisR DEMAND MANAGER 131 Monophasic L DEMAND MANAGER 10 No apparent waveform waveformR FA, prox 0 No apparent L FA, prox 66 Biphasic waveform waveformR FA, mid 33 Monophasic L FA, mid 24 Monophasic waveform waveformR FA, distal 66 Monophasic ---- waveformR popliteal 33 Monophasic L popliteal 57 Triphasic waveform waveformR JORGE, prox 17 Monophasic L JORGE, prox 50 Monophasic waveform waveformR JORGE, distal 20 Monophasic L JORGE, distal 75 Monophasic waveform waveformR DPA 19 Monophasic L DPA 75 Monophasic waveform waveformR MASTER BLACK BELT, prox 33 Monophasic L MASTER BLACK BELT, prox 9 Monophasic waveform waveformR MASTER BLACK BELT, distal 32 Monophasic L MASTER BLACK BELT, distal 21 Monophasic waveform waveformR peroneal, 23 Monophasic L peroneal, 109 Triphasicprox waveform prox waveformR peroneal, 16 Monophasic L peroneal, 63 Triphasicdistal waveform distal waveform *Velocities are expressed in cm/sec, Diameters are expressed in cm Conclusions 1. Study suggests severe peripheral arterial disease involving the bilateral lower extremities.2. The left femoral to popliteal bypass graft is patent.3. No arterial flow noted in the right prox femoral artery and the left PATIENT NAME: KAYLEE LEZAMA common femoral artery with resumption of flow to the distal arteries. Prepared and electronically signed by Brady Lerma MD02/09/2022 19:40 at 1940 PATIENT NAME: KAYLEE LEZAMA :40:0 0Z.[id number] for patient oracUYXPQIOZOCTJVI0370-88-69O52:41:24 [facility] 2022-02-09 18:35:00 [id number] [id number] Q65oBhdfiaYlVzYdf7sq9X1Qbm37588-13-44Y76:35:19496 0-0114 [place] [address] patient name: kaylee lezama admit date: 02/03/22account no: [id number] room [facility]: [email or web address] age: 61 report type: progress note sex: m admitting physician:maximilian sepulveda md attending physician:maximilian sepulveda md date: 02/09/2022 neurology followup attending physician: kevin owusu md subjective: the patient is comfortably lying down in bed. he denies anyheadache, dizziness, or any problem with the speech or swallowing. he alsodenies any increased weakness on the left side. the patient says still waitingfor the surgery. objective:vital signs: blood pressure 143/67, respirations 16, pulse 85, and ycuvojwljur33.1.heent: conjunctivae clear. throat; not congested. ear; no discharge.neck: supple.cardiovascular system: both the heart sounds present. no murmur.respiratory system: clear to auscultation.abdomen: soft, moves with respiration.extremities: no pedal edema.neurological: the patient is well alert and awake. oriented to place, person,month, and year. follows commands. speech is clear. cranial nerveexamination; ocular movements were intact. there is a very subtle left facialasymmetry noted. motor examination, the patient raises the right side well. there is a very mild weakness noted on the left side. no abnormal movementsnoted. sensory examination; appreciates touch and pain over all 4 extremities. laboratory data: glucose at bedside is 254. impression:1. acute multiple right cerebrovascular accident with left hemiparesis.2. severe right carotid artery stenosis up to 90% and also bilateral carotidartery severe stenosis intracranially.3. renal insufficiency.4. history of urinary tract infection, on treatment.5. uncontrolled diabetes mellitus with highly elevated hemoglobin a1c.6. severe hyperlipidemia.7. the patient is continuously stable neurologically at present. awaiting forright carotid endarterectomy. recommendations:1. continuation of management of his urinary tract infection with antibiotic as patient name: kaylee lezama such at present.2. aggressive control of his blood sugar and keep the blood sugar in the normalrange.3. continuation of aspirin, plavix, and atorvastatin as such at present.4. continuation of dvt prophylaxis.5. continuation of physical, occupational, and speech therapy. i alsodiscussed with the patient about participating with therapy. we will followhim. dictated by: feng nowak md wt: pn:z.gautam/miryam/ntsdd: 02/09/2022 18:35:24dt: 02/09/2022 19:24:15conf#: [id number]/did#: [id number] authenticated by feng nowak on 03/01/2022 05:45:55 pm electronically signed by jerry nowak md on 03/01/22 at 0545 patient name: kaylee lezama evde0490-68-66Y56:24:00Z.[id number] [facility] for patient nswyHOZNSEVYUZCOFX7596-56-94V73:46:32 [facility] 2022-02-09 17:23:00 [id number] xzrg5VcZALyl/Yb8yDTPNQUHliAJ9 A08Z2LdXVwKXQfiCH39fYBv2WVmjwPn2827-32-55U88:23:0 0 [facility] ([facility])Hospitalist Progress NoteREPORT#:[id number] REPORT STATUS: SignedDATE:02/09/22 TIME: 1723 PATIENT: KAYLEE LEZAMA UNIT #: [id number]#: [id number] ROOM/BED: [facility]-ADOB: [birth year] AGE: 61 SEX: M ATTEND: Kevin Owusu AUTHOR: Kevin Owusu MD * ALL edits or amendments must be made on the electronic/computer document * SubjectiveChief complaint:carotid stenosisHPI:Reports diarrhea since last night; has had 5-6 loose stools. No nausea or vomiting; no abdominal pain. No blood in the stool. Review of SystemsConstitutional:Denies: chills, fatigue, fever, generalized weakness, lethargy, malaise, recent wt loss. GI:Reports: diarrhea. Denies: abdominal pain, anorexia, dysphagia, GERD, hematemesis, hematochezia, hiatal hernia, melena, nausea, rectal pain, vomiting. All systems rev neg: except as marked Objective GeneralVS/I O:Vital Signs: Date Time Temp Pulse Resp B/P B/P Pulse O2 O2 Flow FiO2 Mean Ox Delivery Rate 02/09 1544 98.1 85 16 143/67 92.8 95 02/09 1142 98.1 88 16 140/64 89.6 97 02/09 1034 97 Room air 02/09 0643 97.9 81 16 111/61 77.8 97 02/09 0547 98.1 74 18 152/84 106.8 96 Nasal cannula 02/09 0211 93 Room air 02/09 0031 99.0 83 18 162/77 105.7 95 Room air 02/08 1958 98.8 85 16 134/79 97.3 95 Room air 02/08 1920 94 Room air 21 24 hour I O ending at 0700: 02/09 0700 02/08 1900 Intake Total 150 Output Total 225 Balance -75 Intake, Oral 150 Number 2 Bowel Movements Output, Urine 225 PATIENT WEIGHT: Weight (lb): 154Weight (oz): 10.82Weight (kg): 69.853 Medications:Active Meds + DC'd Last 24 HrsInsulin Glargine (Lantus/Semglee) 22 UNITS BEDTIME SUBQ Diphenoxylate HCl/Atropine (LOMOTIL (C-V)) 2 UDTAB Q6H PRN PRN PO Doxycycline Monohydrate (VIBRAMYCIN) 100 MG Q12HR PO Insulin Glargine (Lantus/Semglee) 20 UNITS BEDTIME SUBQ (DC) Trimethoprim/Sulfamethoxazole (BACTRIM DS) 1 UDTAB Q12HR PO (DC) Levothyroxine Sodium (Synthroid) 12.5 MCG DAILY@0630 PO Wound Care/Dressing Products (MEDIHONEY) 1 LEONEL DAILY TOPICAL (CKD) Amlodipine Besylate (NORVASC TAB) 5 MG DAILY PO Losartan Potassium (COZAAR) 100 MG DAILY PO Clopidogrel Bisulfate (PLAVIX) 75 MG DAILY PO Famotidine (PEPCID) 20 MG BID PO Aspirin (CHILDREN'S ASPIRIN) 81 MG DAILY PO Atorvastatin Calcium (LIPITOR) 80 MG BEDTIME PO Insulin Human Lispro (HumaLOG) MEDIUM DOSE SLIDING SCALE AC HS SUBQ Nicotine (NICODERM) 14 MG DAILY PRN PRN TRANSDERM Acetaminophen (TYLENOL) 650 MG Q6H PRN PRN PO Dextrose/Water (DEXTROSE 50% IN WATER) 12.5 GM ASDIR PRN IV Dextrose/Water (DEXTROSE 50% IN WATER) 25 GM ASDIR PRN IV Hydralazine HCl (APRESOLINE) 10 MG Q6H PRN PRN IV Enoxaparin Sodium (LOVENOX) 40 MG Q24H SUBQ Physical ExamGeneral appearance: awake, no acute distress, conversationalHead/Eyes: atraumatic, normal conjunctiva/sclera, normocephalic, PERRLENT: poor dentition, moist mucosal membranes, normal ear left, normal ear rightNeck: full range of motion, non-tender, carotid bruit bilateralCardiovascular: normal heart sounds, regular rate rhythmRespiratory: aerating well, clear to auscultation, symmetric expansionAbdomen: distended, non-tender, normal bowel sounds, soft, no distentionGenitourinary: no urinary catheterExtremities: moves all, no clubbing, no cyanosis, no edemaMusculoskeletal: normal inspection, painless range of motion, no 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 ResultsFindings/Data:Laboratory Tests 02/09 02/09 02/08 1141 0642 1957 Chemistry POC Glucose (60 - 99 MG/DL) 276 H 160 H 227 H Results: no new labs, vital signs reviewed, vital signs stable, current med profile rev'd Diagnosis, Assessment PlanProblem List/A P: 1. Diarrhea - Unclear etiology but suspect antibiotic induced. - Will d/c antibiotic and observe. - Lomotil prn. 2. Acute cerebrovascular accident (CVA) due to occlusion of right carotid artery - MRI brain revealed: Multifocal areas of acute infarct involving the right frontal lobe, middle frontal gyrus, single cortex of the right occipital lobe, and in the frontal-parietal white matter representing watershed ischemia territory. Minimal extra-axial FLAIR and T1 hyperintensity signal seen adjacent to the right occipital infarct, possibly representing trace subarachnoid hemorrhage. - Patient with mild left hemiparesis, but marked ataxia, as per PT. - Continue ASA, Plavix, statin, and PT/OT. 3. Bilateral carotid artery stenosis - Approximately 90% stenosis on right, and 75% on left as per CTA neck and brain. - H/O right CEA. - For redo right CEA on 02/11/2022. - Continue ASA and Plavix. 4. Acute renal failure superimposed on stage 3 chronic kidney disease - ARF resolved, and Cr appears to be at baseline. 5. Diabetes - On ozympic at home w Zigduo, amaryl and metformin - Currently on lantus, will increase the dose as needed; continue SSI 6. HLD (hyperlipidemia) - Continue high intensity statin 7. HTN (hypertension) - Well controlled with home meds, Losartan and Amlodipine. 8. PVD (peripheral vascular disease) - Continue ASA and Plavix. 9. Chronic ulcer of left leg - Xray negative for bony involvement. - Wound culture: Staph Epi; will d/c antibiotics and continue local wound care. 10. Hyponatremia - Stable. 11. UTI (urinary tract infection) - Suspected, but ruled out; urine culture with growth of multiple organisms. Consultants: cardiology, cardiovascular surgery, neurology Quality: Gen Med Crit Care VTE ProphylaxisVTE prophylaxis initiated: yes Current MedicationsCurrent medication review:I attest that the foregoing medication list in the medical record is true, accurate, and complete to the best of my knowledge. at 1904 RPT #:[id number] OF REPORTPRProgress clkp0463-75-79H62:23:00Z.[id number] able for patient ldlcBIPZIMOXHLNZVT4313-93-56O44:05:13 [facility] 2022-02-08 19:33:00 [id number] K5hbylLT6NCFDCogb9eVc1rKy7HMk aW5XrgCGHme//BxBpoyZkNCwomvptME3096-27-76I88:33:0 0 [facility] ([facility])Nephrology Progress NoteREPORT#:[id number] REPORT STATUS: SignedDATE:02/08/22 TIME: 1932 PATIENT: KAYLEE LEZAMA UNIT #: [id number]#: [id number] ROOM/BED: [facility]-ADOB: [birth year] AGE: 61 SEX: M ATTEND: Kevin Owusu MDADM AUTHOR: Lele Arzola MD * ALL edits or amendments must be made on the electronic/computer document * SubjectiveChief complaint:ne new complainsHPI:61 Y/o man with PMHX of poorly controlled DM, HTN, PVD , who was admitted to [facility] for DKA managament, andAKI , nephrology consulted for UMESH, hyper Na and electrolytes management, pt noticed to have change/no improvement in mental status , Neck MRA showedsignifcant carotid stenosis , pt transfered for higher level of carewhen patient arrive to [facility] Nirmala function back to baser line 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 Objective GeneralVS/I O:Vital Signs: Date Time Temp Pulse Resp B/P B/P Pulse O2 O2 Flow FiO2 Mean Ox Delivery Rate 02/08 1920 94 Room air 21 02/08 1455 37.1 79 16 133/70 91.0 96 02/08 0731 36.6 80 16 145/79 101.0 96 02/08 0525 37.0 80 22 129/76 93.8 92 02/08 0514 93 Room air 02/07 2330 36.9 78 16 118/73 88.1 95 02/07 2129 95 Room air 02/07 2008 36.6 86 22 124/57 79.3 93 Room air PATIENT WEIGHT: Weight (lb): 154Weight (oz): 10.82Weight (kg): 69.853 Physical ExamHead/eyes: atraumatic, normocephalicENT: moist mucous membranesNeck: supple/no meningismus, no JVDCardiovascular: murmur (SYs ), normal heart sounds, regular rate and rhythm, pedal pulses present, no murmurRespiratory: aerating well, clear to auscultation, normal breath sounds, symmetric expansionAbdomen: non-tender, normal bowel sounds, soft, no CVA tenderness, no distentionGenitourinary: no flank pain, no urinary catheterExtremities: non-tender, normal inspection, no edema, no swelling Diagnosis, Assessment PlanFree Text A P:A 61 Y/o man with PMHX of poorly controlled DM, HTN, PVD , who was admitted to [facility] for DKA managament, and UMESH , nephrology consulted for UMESH and electrolytes management, pt noticed to have change/no improvement in mental status , Neck MRA showed signifcant carotid stenosis , pt transfered for higher level of care Today No overnight ewvents stable VS at this point pt declined surgical intervention Conmt medical management A/P #UMESH 2nd to pre- renal / Glucodiuresis 2nd to DKA improving now platue at 1.3 s/p Contrast in Feb 04:peak Cr 1.7 at [facility] now cor down to 1.3 cont lisniopril pt to recive IV contrast 02/06, cont IVF for one more dasy avoid NSAID renal dose medciations continue losartan # Poorly controlled DM s/p DKA BS is better controlled now SSI #HTN BP controlled nowcontinue losartan # Carotid artery stenosis F/u -CTA neck showing 90% R ICA stenosis, Dr. Lerma -Planning for endarterectomy at the end of the week with Dr. Lerma # Acidosis 2nd to DKA recover resolved # hyper Na deplational recover resolved cullrently hypo Na # hypo Na will continue hydration for now # hypo K s/p supplement resolved # hypo Mg s/p supplement resolved Time spent 45 minutes including examining the patient face to face , reviewing the data, lab, andand radiology , placing order, discussing the case with the patient , discussing with steam frame operator includying leonard and Hospitalist more than 45 minutes . at 1936 RPT #:[id number] OF REPORTPRProgress ovcy7183-75-53F73:33:00Z.[id number] able for patient eacxJHIBPMGVRBGPBI6329-18-95R89:36:38 [facility] 2022-02-08 17:10:00 [id number] CevP1pzQxalJ95t5XNLjMVC16NKMr Z97NrfqxEIa03pAIq3g3bhcXoUj4499-18-04L37:10:00 [facility] progress notereport#:[id number] report status: signeddate:02/08/22 time: 1710 patient: kaylee lezama unit #: [id number]#: [id number] [address]: [birth year] age: 61 sex: m attend: maximilian sepulveda jessica mdadm dt: 02/03/22 author: rena sanchez md r1 * all edits or amendments must be made on the electronic/computer document * rena sanchez 02/08/22 1710:subjectivehpi:px seen comfortably lying in bed. he states he is feeling better now and expresses frustration with waiting for surgery. he also complains that the food they are bringing in for him is not enough and he goes to bed hungry. px has bleeding skin over abdomen and states he picks at his skin until it bleeds. spoke with nurses to offer him food and do wound care. he denies headache, dizziness, speech or swallowing problems, and also denies any increased weaknesson the left side. review of systemsconstitutional:denies: chills, fatigue, fever. respiratory:denies: mata (dyspnea on exertion), sob, wheezing. cardiovascular:denies: chest pain, mata (dyspnea on exertion), edema, orthopnea. gi:denies: abdominal pain, dysphagia, gerd, nausea, vomiting. gu:reports: frequency, urgency. denies: dysuria. neuro:denies: dizziness, headache, lightheaded, numbness, vision change. all systems rev neg: except as marked objective generalvs:last documented: result date time pulse ox 96 02/08 1455 b/p 133/70 02/08 1455 b/p mean 91.0 02/08 1455 temp 37.1 02/08 1455 pulse 79 02/08 1455 resp 16 02/08 1455 fio2 21 02/08 0514 o2 delivery room air 02/08 0514 patient weight: weight (lb): 154weight (oz): 10.82weight (kg): 69.853 medicationscurrent home medicationsomeprazole er 20 mg po bid albuterol (proair hfa 90 mcg/act 8.5 gm) 2 puff inh rtq4h prn prn dyspnea/wheezing dapagliflozin/metformin 10/1,000 mg (xigduo xr 10/1,000 mg) 1 tab po daily amlodipine (norvasc) 5 mg po daily metformin (glucophage) 1,000 mg po bid losartan (cozaar) 100 mg po daily gabapentin (neurontin) 200 mg po bid atorvastatin (lipitor) 40 mg po bedtime glimepiride (amaryl) 4 mg po daily [ozempic] (unknown dose) weekly active meds + dc'd last 24 hrsinsulin glargine (lantus/semglee) 18 units bedtime subq (dc) insulin glargine (lantus/semglee) 20 units bedtime subq trimethoprim/sulfamethoxazole (bactrim ds) 1 udtab q12hr po levothyroxine sodium (synthroid) 12.5 mcg daily@0630 po insulin glargine (lantus/semglee) 15 units bedtime subq (dc) wound care/dressing products (medihoney) 1 leonel daily topical (ckd) amlodipine besylate (norvasc tab) 5 mg daily po losartan potassium (cozaar) 100 mg daily po clopidogrel bisulfate (plavix) 75 mg daily po famotidine (pepcid) 20 mg bid po aspirin (children's aspirin) 81 mg daily po atorvastatin calcium (lipitor) 80 mg bedtime po insulin human lispro (humalog) medium dose sliding scale ac hs subq nicotine (nicoderm) 14 mg daily prn prn transderm acetaminophen (tylenol) 650 mg q6h prn prn po dextrose/water (dextrose 50% in water) 12.5 gm asdir prn iv dextrose/water (dextrose 50% in water) 25 gm asdir prn iv hydralazine hcl (apresoline) 10 mg q6h prn prn iv enoxaparin sodium (lovenox) 40 mg q24h subq nutrition assessment:the data set between the solid lines has been imported from the dietitian's assessment. any exceptions have been noted under provider comments. bmi calculated: 19.9nutrition related diagnosis: nutrition diagnosis details: nutrition problem: nutrition etiology: nutrition signs and symptoms: nutrition prescription: dietitian name: assessment completed: provider comments on imported dietitian assessment: physical examgeneral appearance: alert, awake, oriented, no acute distress, no respiratory distresshead/eyes: atraumatic, normocephalicent: moist mucosal membranesneck: full range of motion, non-tendercardiovascular: regular rate and rhythm, normal heart sounds, no murmurrespiratory: aerating well, clear to auscultation, no distressabdomen: non-tender, normal bowel sounds, soft, no distentionextremities: moves all, pulses present, no edemaneuro comment:patient is awake and alert, oriented to person, place, month, and year. follows commands. speech is clear. 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 no visual field defect noted. with slight left sided facial asymmetry. tongue is midline. motor: strength is 5/5 on right and 4/5 on left. no abnormal movements noted. sensory: appreciates touch and pain over all 4 extremities. coordination: rapid alternating movements and fine finger movements are intact diagnosis, assessment planfree text a p:impression:1. acute multiple right cerebrovascular accident with left hemiparesis2. severe right carotid artery stenosis up to 90% and also bilateral carotid artery severe stenosis intracranially3. renal insufficiency; cr improving currently4. uncontrolled diabetes mellitus with highly elevated hemoglobin a1c5. severe hyperlipidemia6. currently stable neurologically with no acute changes recommendations:1. continue aspirin, plavix, atorvastatin 80 mg at bedtime2. continue management of his blood sugar and keep the blood sugar within the normal range3. continue dvt prophylaxis4. continue physical, occupational, and speech therapy5. counselled px on the importance of controlling blood sugar and cholesterol6. scheduled for right carotid endarterectomy at the end of the weekconsultants: cardiology, cardiovascular surgery, neurology quality: gen med crit care vte prophylaxisvte prophylaxis initiated: yes current medicationscurrent medication review:i attest that the foregoing medication list in the medical record is true, accurate, and complete to the best of my knowledge. dang nowak 02/24/22 4:attestations teaching physician attestationf/u visit w/ resident:i saw the patient with the resident and agree with the resident's findings and plan. electronically signed by rena sanchez md r1 on 02/08/22 at 1808electronically signed by jerry nowak md on 02/24/22 at 1856 rpt #:[id number] of reportPRProgress lzek3272-25-26C31:10:00Z.[id number] able for patient yayxCSUPOBIFIFADTJ1192-37-02J61:45:04 [facility] 2022-02-08 17:10:00 [id number] IbHZTTmrYU35oC3bD6TpHRI7h0yUw 5l6y2fvZ7ZtRcAnPQC37zgF44HTOGwv9280-92-47O29:10:0 0 [facility] ([facility])Neurology Progress NoteREPORT#:[id number] REPORT STATUS: SignedDATE:02/08/22 TIME: 1710 PATIENT: KAYLEE LEZAMA UNIT #: [id number]#: [id number] [facility] [birth year] AGE: 61 SEX: M ATTEND: Kevin Owusu [facility] AUTHOR: Rena Sanchez MD R1 * ALL edits or amendments must be made on the electronic/computer document * SubjectiveHPI:Px seen comfortably lying in bed. He states he is feeling better now and expresses frustration with waiting for surgery. He also complains that the food they are bringing in for him is not enough and he goes to bed hungry. Px has bleeding skin over abdomen and states he picks at his skin until it bleeds. Spoke with nurses to offer him food and do wound care. He denies headache, dizziness, speech or swallowing problems, and also denies any increased weaknesson the left side. Review of SystemsConstitutional:Denies: chills, fatigue, fever. Respiratory:Denies: MATA (dyspnea on exertion), SOB, wheezing. Cardiovascular:Denies: chest pain, MATA (dyspnea on exertion), edema, orthopnea. GI:Denies: abdominal pain, dysphagia, GERD, nausea, vomiting. :Reports: frequency, urgency. Denies: dysuria. Neuro:Denies: dizziness, headache, lightheaded, numbness, vision change. All systems rev neg: except as marked Objective GeneralVS:Last Documented: Result Date Time Pulse Ox 96 02/08 1455 B/P 133/70 02/08 1455 B/P Mean 91.0 02/08 1455 Temp 37.1 02/08 1455 Pulse 79 02/08 1455 Resp 16 02/08 1455 FiO2 21 02/08 05 O2 Delivery Room air 02/08 514 PATIENT WEIGHT: Weight (lb): 154Weight (oz): 10.82Weight (kg): 69.853 MedicationsCurrent Home MedicationsOMEPRAZOLE ER 20 MG PO BID ALBUTEROL (PROAIR HFA 90 MCG/ACT 8.5 GM) 2 PUFF INH RTQ4H PRN PRN DYSPNEA/WHEEZING DAPAGLIFLOZIN/metFORMIN 10/1,000 MG (XIGDUO XR 10/1,000 MG) 1 TAB PO DAILY amLODIPine (NORVASC) 5 MG PO DAILY metFORMIN (GLUCOPHAGE) 1,000 MG PO BID LOSARTAN (COZAAR) 100 MG PO DAILY GABAPENTIN (NEURONTIN) 200 MG PO BID ATORVASTATIN (LIPITOR) 40 MG PO BEDTIME GLIMEPIRIDE (AMARYL) 4 MG PO DAILY [OZEMPIC] (Unknown Dose) WEEKLY Active Meds + DC'd Last 24 HrsInsulin Glargine (Lantus/Semglee) 18 UNITS BEDTIME SUBQ (DC) Insulin Glargine (Lantus/Semglee) 20 UNITS BEDTIME SUBQ Trimethoprim/Sulfamethoxazole (BACTRIM DS) 1 UDTAB Q12HR PO Levothyroxine Sodium (Synthroid) 12.5 MCG DAILY@0630 PO Insulin Glargine (Lantus/Semglee) 15 UNITS BEDTIME SUBQ (DC) Wound Care/Dressing Products ([facility]) 1 LEONEL DAILY TOPICAL (CKD) Amlodipine Besylate (NORVASC TAB) 5 MG DAILY PO Losartan Potassium (COZAAR) 100 MG DAILY PO Clopidogrel Bisulfate (PLAVIX) 75 MG DAILY PO Famotidine (PEPCID) 20 MG BID PO Aspirin (CHILDREN'S ASPIRIN) 81 MG DAILY PO Atorvastatin Calcium (LIPITOR) 80 MG BEDTIME PO Insulin Human Lispro (HumaLOG) MEDIUM DOSE SLIDING SCALE AC HS SUBQ Nicotine (NICODERM) 14 MG DAILY PRN PRN TRANSDERM Acetaminophen (TYLENOL) 650 MG Q6H PRN PRN PO Dextrose/Water (DEXTROSE 50% IN WATER) 12.5 GM ASDIR PRN IV Dextrose/Water (DEXTROSE 50% IN WATER) 25 GM ASDIR PRN IV Hydralazine HCl (APRESOLINE) 10 MG Q6H PRN PRN IV Enoxaparin Sodium (LOVENOX) 40 MG Q24H SUBQ Nutrition assessment:The data set between the solid lines has been imported from the dietitian's assessment. Any exceptions have been noted under Provider comments. BMI Calculated: 19.9Nutrition related diagnosis: Nutrition diagnosis details: Nutrition problem: Nutrition etiology: Nutrition signs and symptoms: Nutrition prescription: Dietitian name: Assessment completed: Provider comments on imported dietitian assessment: Physical ExamGeneral appearance: alert, awake, oriented, no acute distress, no respiratory distressHead/Eyes: atraumatic, normocephalicENT: moist mucosal membranesNeck: full range of motion, non-tenderCardiovascular: regular rate and rhythm, normal heart sounds, no murmurRespiratory: aerating well, clear to auscultation, no distressAbdomen: non-tender, normal bowel sounds, soft, no distentionExtremities: moves all, pulses present, no edemaNeuro comment:Patient is awake and alert, oriented to person, place, month, and year. Follows commands. Speech is clear. lathmaker: ocular movements intact. No visual field defect noted. With slight left sided facial asymmetry. Tongue is midline. Motor: Strength is 5/5 on right and 4/5 on left. No abnormal movements noted. Sensory: appreciates touch and pain over all 4 extremities. Coordination: Rapid alternating movements and fine finger movements are intact Diagnosis, Assessment PlanFree Text A P:IMPRESSION:1. Acute multiple right cerebrovascular accident with left hemiparesis2. Severe right carotid artery stenosis up to 90% and also bilateral carotid artery severe stenosis intracranially3. Renal insufficiency; Cr improving currently4. Uncontrolled diabetes mellitus with highly elevated hemoglobin A1c5. Severe hyperlipidemia6. Currently stable neurologically with no acute changes RECOMMENDATIONS:1. Continue aspirin, Plavix, atorvastatin 80 mg at bedtime2. Continue management of his blood sugar and keep the blood sugar within the normal range3. Continue DVT prophylaxis4. Continue physical, occupational, and speech therapy5. Counselled px on the importance of controlling blood sugar and cholesterol6. Scheduled for right carotid endarterectomy at the end of the weekConsultants: cardiology, cardiovascular surgery, neurology Quality: Gen Med Crit Care VTE ProphylaxisVTE prophylaxis initiated: yes Current MedicationsCurrent medication review:I attest that the foregoing medication list in the medical record is true, accurate, and complete to the best of my knowledge. at 1808 RPT #:[id number] OF REPORTPRProgress fzmt1284-30-98Z52:10:00Z.[id number] able for patient ufpfLMLRKETDMFHMDQ0230-13-22P63:08:33 [facility] 2022-02-08 06:47:00 [id number] bFa1FUHEfdom/59qCBzzYOQ7wbh2P +y9v2DukQrq9IoHS/TZiDhmCXbeXz614396-25-07Q56:47:0 0 [facility] ([facility]ospital[facility] Progress NoteREPORT#:[id number] REPORT STATUS: SignedDATE:02/08/22 TIME: 0647 PATIENT: TEJAKAYLEE UNIT #: [id number]#: [id number] [facility] AGE: 61 SEX: M ATTEND: Kevin Owusu [facility] AUTHOR: Royce Maguire DO R3 * ALL edits or amendments must be made on the electronic/computer document * Royce Maguire 02/08/22 0647:SubjectiveChief complaint:carotid stenosisHPI:No acute events overnight. He is feeling well today but upset that the endarterectom is planned for end of the week rather than today. He is on bactrimfor UTI and leg wound. He does admit to polyuria. Discussed need for outpt follow up for cystoscopy due to hematuria Review of SystemsConstitutional:Denies: chills, fatigue, fever, generalized weakness, lethargy, malaise, recent wt loss, other. Respiratory:Denies: SOB, wheezing. Cardiovascular:Denies: chest pain. GI:Denies: abdominal pain, nausea, vomiting. All systems rev neg: except as marked Objective GeneralVS/I O:Vital Signs: Date Time Temp Pulse Resp B/P B/P Pulse O2 O2 Flow FiO2 Mean Ox Delivery Rate 02/08 731 97.9 80 16 145/79 101.0 96 02/08 0525 98.6 80 22 129/76 93.8 92 02/08 0514 93 Room air 02/07 2330 98.4 78 16 118/73 88.1 95 02/07 2129 95 Room air 02/07 97.9 86 22 124/57 79.3 93 Room air 02/07 1547 98.8 82 18 109/72 84.0 94 PATIENT WEIGHT: Weight (lb): 154Weight (oz): 10.82Weight (kg): 69.853 Physical ExamGeneral appearance: alert, awake, orientedHead/Eyes: atraumatic, normal conjunctiva/sclera, normocephalicENT: poor dentition, moist mucosal membranes, normal ear left, normal ear rightNeck: full range of motion, non-tender, carotid bruit bilateralCardiovascular: normal heart sounds, regular rate rhythmRespiratory: aerating wellAbdomen: distended, obese, non-tender, softGenitourinary: no urinary catheterExtremities: moves allMusculoskeletal: normal inspectionNeuro/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, oriented X 3, normal speech, left sided weaknessSkin: dry, left anterior lower leg woundPsychiatry: abnl judgment/insight, unable to evaluate ResultsFindings/Data:Laboratory Tests 02/08 02/08 02/08 02/07 02/07 1215 0729 0505 2218 2127 Chemistry Sodium (137 - 145 MMOL/L) 132 L Potassium (3.5 - 5.1 MMOL/L) 3.7 Chloride (98 - 107 MMOL/L) 101 Carbon Dioxide (22 - 30 MMOL/L) 24 BUN (9 - 20 MG/DL) 23 H Creatinine (0.66 - 1.25 MG/DL) 1.30 H Glomerular Filtr Rate 56 Glucose (74 - 106 MG/DL) 152 H POC Glucose (60 - 99 MG/DL) 299 H 167 H 266 H 280 H Calcium (8.4 - 10.2 MG/DL) 8.3 L 02/07 1546 Chemistry POC Glucose (60 - 99 MG/DL) 229 H Laboratory Tests 02/08 0505 Hematology WBC (3.8 - 9.8 K/MM3) 9.8 RBC (3.95 - 5.67 M/MM3) 4.03 Hgb (12.4 - 16.7 G/DL) 12.2 L Hct (35.9 - 49.5 %) 37.4 MCV (81.7 - 96.1 fL) 93 MCH (27.6 - 33.2 pg) 30.3 MCHC (32.9 - 35.5 %) 32.6 L RDW (12.1 - 15.2 %) 12.8 Plt Count (129 - 368 K/MM3) 312 MPV (7.4 - 10.4 fl) 9.5 Neut % (Auto) (43 - 75 %) 66.8 Lymph % (Auto) (14 - 44 %) 15.0 [place] % (Auto) (4 - 13 %) 14.6 H Eos % (Auto) (0 - 6 %) 2.2 Baso % (Auto) (0 - 2 %) 0.9 Neut # (Auto) (2.0 - 7.6 K/mm3) 6.52 Lymph # (Auto) (1.0 - 3.8 K/mm3) 1.46 [place] # (Auto) (0.1 - 0.8 K/mm3) 1.42 H Eos # (Auto) (0.0 - 0.2 K/mm3) 0.21 H Baso # (Auto) (0.0 - 0.2 K/mm3) 0.09 Immature Gran % (0.0 - 2.0 %) 0.5 Nucleated RBC % (0 - 1.0 %) 0.0 Nucleated RBCs # (Man) (0.0 - 0.1 K/mm3) 0.00 Diagnosis, Assessment PlanProblem List/A P: 1. Carotid stenosis 2. Stroke MRI Brain: Multifocal areas of acute infarct noted involving the right frontal lobe middle frontal gyrus, single cortex of the right occipital lobe, and in the frontal-parietal white matter representing watershed ischemia territory. Minimal extra-axial FLAIR and T1 hyperintensity signal seen adjacent to the right occipital infarct, possibly representing trace subarachnoid hemorrhage. 3. HLD (hyperlipidemia) 4. HTN (hypertension) 5. Diabetes 6. UMSEH (acute kidney injury) Cr 1.7 at OSH, now Cr 1.3 7. PVD (peripheral vascular disease) 8. Leg wound, left 9. Hyponatremia urine sodium 30 nephrology consulted possibly due to IVF 10. UTI (urinary tract infection) 11. Hematuria 02/07/22 UA with RBC, will need outpatient follow up Consultants: cardiology, cardiovascular surgery, neurology Free Text DxA P NotesFree text DxA P notes:61yo M, w DM, CVA Acute metabolic encephalopathy here for eval for carotid restenosis. Pt had Umesh although Cr is better, awaiting CTA Head and neck, MRi and carotidsContinue Rx PT/OT/Speech8/6DW DR howell and DR duarte asa/plavix and statinsBS okPt had Cr 1.7 then 1.3pt wants to go home w sister Latrice, but advised to stay as he is at risk for devastating strokePt is upset because, he had MRI. CT scan again, he feels he can go home at take his meds and he will fine. He believes his stroke happened because he did not take meds for 1 monthI beleive pt should stay and have redo CEA next week02/06Increrase the lantus and SSIContinue therapyPt seems calmerDW Dr Howell and Dr Davila will have surgery next week 02/07-CTA neck showing 90% R ICA stenosis, Dr. Lerma consulted for surgery this week. -Cr improved to 1.3 from 1.7 at outside hospital, nephrology is consulted-Left anterior tibial leg wound: will get xray and wound culture. -Continue insulin regimen-UA with leukocyte esterase. One dose of rocephin and start Bactrim for UTI and anterior leg wound-Follow urine and wound Cx-Hematuria, will need outpatient f/u 02/08-Creatinine remaining stable-On DAPT therapy-Plan for R carotid endarterectomy -Continue PT/OT/ST-Continue Bactrim for leg wound and UTI coverage-Planning for endarterectomy at the end of the week with Dr. Lerma-Increase Lantus to 20U Quality: Gen Med Crit Care VTE ProphylaxisVTE prophylaxis initiated: yes Current MedicationsCurrent medication review:I attest that the foregoing medication list in the medical record is true, accurate, and complete to the best of my knowledge. AttestationsAttestation needed: teaching physician Kevin Owusu 02/08/22 1706:Attestations Teaching Physician AttestationF/U visit w/ resident:I saw the patient with the resident, Royce Maguire, PGY3 during rounds on 02/08/2022 and agree with the resident's findings and plan. at 1428 at 1706 RPT #:[id number] OF REPORTPRProgress ndjw1398-07-45Q44:47:00Z.[id number] able for patient hdwnSOSZZRYREITVEN4633-68-07C58:29:03 [facility] 2022-02-07 23:18:00 [id number] V6AHC1C4mxK7mCEDeWKHgaMtiyrxS AJCnBDDZpv4TxfAMmI4Pw9N6DtVZ3gT1947-28-37G96:18:0 [id number] [address] PATIENT NAME: KAYLEE LEZAMA ADMIT DATE: 02/03/22ACCOUNT NO: [id number] ROOM NO: Z.619 AGE: 61 REPORT TYPE: PROGRESS NOTE SEX: M ADMITTING PHYSICIAN:Kevin Owusu MD ATTENDING PHYSICIAN:Kevin Owusu MD DATE: 02/07/2022 CARDIAC SURGERY SERVICE The patient is seen at bedside. The patient is currently stable. The patient is walking a little, further the patient is getting stronger. I recommended that the patient will need to have a redo right carotid endarterectomy. We will have the patient wait towards the end of the week. We will allow himfurther neurologically before beginning the surgery. Dictated By: Brady Lerma MD WT: PN:FIDEL/WOLF/NTSDD: 02/07/2022 23:18:56DT: 02/08/2022 00:10:06Conf#: [id number]/DID#: [id number] Authenticated and Edited by Brady Lerma MD On 02/08/22 11:40:58 PM at 1143 PATIENT NAME: KAYLEE LEZAMA jpls6111-82-24S04:10:00Z.[id number] ble for patient ecbjKBZPTDBITUSERS4350-18-26A48:44:29 [facility] 2022-02-07 16:56:00 [id number] iRKO9mVSwZxp6IQs5IjCepv1l91h4 IWQgMYeKcOvnb+M5+h86whNTWIa9870-07-02A71:56:74713 8-[address]06 [place] [address] patient name: kaylee lezama admit date: 02/03/22account no: [id number] room no: z.si06 age: 61 report type: progress note sex: m admitting physician:maximilian sepulveda md attending physician:maximilian sepulveda md date: 02/07/2022 neurology followup attending physician: maximilian sepulveda md subjective: the patient is comfortably lying down in bed. he states he isdoing much better now. he denies any headache or any problem with the speech orswallowing. he denies any increased weakness on the left side. the patientstates he wants to have the surgery soon. otherwise, he will leave. as per thestaff, the patient is restless sometimes. he is also followed by nephrologyservice as well as vascular surgery service. objective:vital signs: blood pressure 109/72, respirations 18, pulse 82, and uilzcmlmvlj10.8.heent: conjunctivae clear. throat; not congested. ear; no discharge.neck: supple.cardiovascular system: both the heart sounds present. no murmur.respiratory system: clear to auscultation.abdomen: soft, moves with respiration.extremities: no pedal edema.neurological: the patient is well alert and awake. oriented to place, person,and month. he also told the year. he follows simple commands. speaks clearly. cranial nerve examination; ocular movements were intact. there is a verysubtle left facial asymmetry noted. tongue is in the midline. motorexamination; power is 5/5 over the right side, power over the left side is 4 to4+/5. no abnormal movements noted. sensory examination; appreciates touch andpain over all 4 extremities. laboratory data: chemistry; sodium 131, potassium 3.8, chloride 100,bicarbonate 25, glucose 173, bun 23, creatinine 1.30, calcium 8.8. x-ray of theleft tibia and fibula reported no acute finding. urinalysis revealed wbc ofmore than 100, rbc's of 5 to 10, protein 500. impression:1. acute multiple right cerebrovascular accident with left hemiparesis.2. severe right carotid artery stenosis up to 90% and also bilateral carotidartery severe stenosis intracranially.3. renal insufficiency. the patient's creatinine is improving at present.4. the patient is also noted having urinary tract infection.5. uncontrolled diabetes mellitus with highly elevated hemoglobin a1c. patient name: kaylee lezama 6. severe hyperlipidemia. the patient is on atorvastatin.7. the patient continuously stable neurologically at present. the patient isalso going for a right carotid endarterectomy. recommendations:1. we will start him with rocephin for urinary tract infection until thesensitivities available.2. continuation of aspirin and plavix.3. continuation of atorvastatin 80 mg at bedtime.4. continuation of management of his blood sugar and keep the blood sugarwithin the normal range.5. continuation of dvt prophylaxis.6. continuation of physical, occupational, and speech therapy.7. i also discussed with the patient about the importance of controlling hisblood sugar and the cholesterol. i also told him the importance of having thesurgery of his right carotid blood vessel, which blocked almost 90%. heunderstood. dictated by: feng nowak md wt: pn:z.gautam/miryam/ntsdd: 02/07/2022 16:56:55dt: 02/07/2022 19:39:38conf#: [id number]/did#: [id number] authenticated by feng nowak on 03/01/2022 05:45:53 pm electronically signed by jerry nowak md on 03/01/22 at 0545 patient name: kaylee lezama fduw7445-22-03N92:39:00Z.[id number] ble for patient svmfGKILKXXGHNHZLG2473-65-97K88:46:32 [facility] 2022-02-07 11:13:00 [id number] wcs9HaLexcDqOQ2Ha5cUE7RfnG7mJ dkZGqvpzcY4uWW/80TrAgLHAXeaaP5A6308-47-61N44:13:0 0 [facility] ([facility])Nephrology Progress NoteREPORT#:[id number] REPORT STATUS: SignedDATE:02/07/22 TIME: 1113 PATIENT: KAYLEE LEZAMA UNIT #: [id number]#: [id number] ROOM[facility]BED[facility]-ADOB: [birth year] AGE: 61 SEX: M ATTEND: Kevin Owusu AUTHOR: Lele Arzola MD * ALL edits or amendments must be made on the electronic/computer document * SubjectiveChief complaint:ne new complains HPI:61 Y/o man with PMHX of poorly controlled DM, HTN, PVD , who was admitted to [facility] for DKA managament, andAKI , nephrology consulted for UMESH, hyper Na and electrolytes management, pt noticed to have change/no improvement in mental status , Neck MRA showedsignifcant carotid stenosis , pt transfered for higher level of carewhen patient arrive to [facility] Nirmala function back to baser line 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 Objective Physical ExamHead/eyes: atraumatic, normocephalicENT: moist mucous membranesNeck: supple/no meningismus, no JVDCardiovascular: normal heart sounds, regular rate and rhythm, pedal pulses present, no murmurRespiratory: aerating well, clear to auscultation, normal breath sounds, symmetric expansionAbdomen: non-tender, normal bowel sounds, soft, no CVA tenderness, no distentionExtremities: non-tender, normal inspection, no edema, no swelling Diagnosis, Assessment PlanFree Text A P:A 61 Y/o man with PMHX of poorly controlled DM, HTN, PVD , who was admitted to [facility] for DKA managament, and UMESH , nephrology consulted for UMESH and electrolytes management, pt noticed to have change/no improvement in mental status , Neck MRA showed signifcant carotid stenosis , pt transfered for higher level of care Today No overnight ewvents stable VS at this point pt declined surgical intervention Conmt medical management A/P #UMESH 2nd to pre- renal / Glucodiuresis 2nd to DKA improving peak Cr 1.7 at [facility] now cor down to 1.3 cont lisniopril pt to recive IV contrast 02/06, cont IVF for one more dasy avoid NSAID renal dose medciations on losartan will hold it for next 24 h to mainmize the risk of contrast induce UMESH # Poorly controlled DM s/p DKA BS is better controlled now SSI #HTN BP controlled nowon losartan will hold it for next 24 h to mainmize the risk of contrast induce UMESH # Carotid artery stenosis F/u -CTA neck showing 90% R ICA stenosis, Dr. Lerma consulted for surgery thisweek. # Acidosis 2nd to DKA recover resolved # hyper Na deplational recover resolved cullrently hypo Na # hypo Na will continue hydration for now # hypo K s/p supplement resolved # hypo Mg s/p supplement resolved Time spent 45 minutes including examining the patient face to face , reviewing the data, lab, andand radiology , placing order, discussing the case with the patient , discussing with steam frame operator [facility] and Hospitalist more than 45 minutes . at 1125 RPT #:[id number] OF REPORTPRProgress acgk0044-84-53H52:13:00Z.[id number] able for patient zoheEJBJPNWYTQZMVE2835-26-54Y20:25:53 [facility] 2022-02-07 08:54:00 [id number] N2O9XgSY/oB7sKqegLK/lveVaFpib BOg6L4tORT9e/Cibo7TPnnC0GkHbkbx7085-16-04S86:54:0 0 [facility] ([facility])Hospitalist Progress NoteREPORT#:[id number] REPORT STATUS: SignedDATE:02/07/22 TIME: 853 PATIENT: KAYLEE LEZAMA UNIT #: [id number]#: [id number] [facility] [birth year] AGE: 61 SEX: M ATTEND: Kevin Owusu AUTHOR: Royce Maguire DO R3 * ALL edits or amendments must be made on the electronic/computer document * Royce Maguire 02/07/22 0854:SubjectiveChief complaint:carotid stenosisHPI:This is a 61 y/o M w DM, HTN, UMESH, PVD B CEA transfrd from [place] for eval of carotid restenosis after admissino for DKA where also seen to have acute CVA.He has had no acute events overnight. He was thinking this surgery was today. Obeys planned R carotid endarterectomy hopefully sometime this week. Review of SystemsConstitutional:Denies: chills, fever, generalized weakness. Respiratory:Denies: SOB, wheezing. Cardiovascular:Denies: chest pain, edema. GI:Denies: abdominal pain, nausea, vomiting. Neuro:Reports: focal weakness (left arm). All systems rev neg: except as marked Objective GeneralVS/I O:Vital Signs: Date Time Temp Pulse Resp B/P B/P Pulse O2 O2 Flow FiO2 Mean Ox Delivery Rate 02/07 719 98.4 83 18 153/87 109.1 95 02/07 0455 98.4 82 18 171/75 107.3 95 Room air 02/06 1955 99.1 86 18 118/72 87.3 93 Room air 02/06 1622 98.6 88 18 137/78 98.0 94 02/06 1050 98.6 87 18 149/87 107.4 94 24 hour I O ending at 0700: 02/07 0700 02/06 1900 Intake Total 1200 Output Total Balance 1200 Intake, Oral 1200 Number 0 Bowel Movements Number 4 Incontinent Voids PATIENT WEIGHT: Weight (lb): 154Weight (oz): 10.82Weight (kg): 69.853 Physical ExamGeneral appearance: alert, awakeHead/Eyes: atraumatic, normal conjunctiva/sclera, normocephalicENT: poor dentition, moist mucosal membranes, normal ear left, normal ear rightNeck: full range of motion, non-tenderCardiovascular: normal heart sounds, regular rate rhythmRespiratory: aerating wellAbdomen: distended, obese, non-tender, softGenitourinary: no urinary catheterExtremities: moves allMusculoskeletal: normal inspectionNeuro/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: abnormal speech, altered mental status, alert, normal speechSkin: dryPsychiatry: abnl judgment/insight, unable to evaluate ResultsFindings/Data:Laboratory Tests 02/07 02/07 02/06 02/06 02/06 0756 0527 2110 1609 1151 Chemistry Sodium (137 - 145 MMOL/L) 131 L Potassium (3.5 - 5.1 MMOL/L) 3.8 Chloride (98 - 107 MMOL/L) 100 Carbon Dioxide (22 - 30 MMOL/L) 25 Anion Gap (14 - 24 MMOL/L) 10 L BUN (9 - 20 MG/DL) 23 H Creatinine (0.66 - 1.25 MG/DL) 1.30 H Glomerular Filtr Rate 56 Glucose (74 - 106 MG/DL) 173 H POC Glucose (60 - 99 MG/DL) 174 H 255 H 280 H 256 H Calcium (8.4 - 10.2 MG/DL) 8.8 Laboratory Tests 02/07 0840 Urines Urine Color (YELLOW) YELLOW Urine Appearance (CLEAR) SLIGHT CLOUDY Urine pH (5.0 - 9.0) 6.0 Ur Specific Neligh (1.003 - 1.030) 1.015 Urine Protein (NEGATIVE MG/DL) 500 H Urine Glucose (UA) (NORMAL MG/DL) 50 H Urine Ketones (NEGATIVE MG/DL) NEGATIVE Urine Blood (NEGATIVE Pradeep/mm3) 250 H Urine Nitrite (NEGATIVE) NEGATIVE Urine Bilirubin (NEGATIVE MG/DL) NEGATIVE Urine Urobilinogen (NORMAL MG/DL) NORMAL Ur Leukocyte Esterase (NEGATIVE /mm3) 500 H Diagnosis, Assessment PlanProblem List/A P: 1. Carotid stenosis 2. Stroke MRI Brain: Multifocal areas of acute infarct noted involving the right frontal lobe middle frontal gyrus, single cortex of the right occipital lobe, and in the frontal-parietal white matter representing watershed ischemia territory. Minimal extra-axial FLAIR and T1 hyperintensity signal seen adjacent to the right occipital infarct, possibly representing trace subarachnoid hemorrhage. 3. HLD (hyperlipidemia) 4. HTN (hypertension) 5. Diabetes 6. UMESH (acute kidney injury) Cr 1.7 at OSH, now Cr 1.3 7. PVD (peripheral vascular disease) 8. Leg wound, left 9. Hyponatremia urine sodium 30 nephrology consulted possibly due to IVF 10. UTI (urinary tract infection) 11. Hematuria 02/07/22 UA with RBC, will need outpatient follow up Consultants: cardiology, cardiovascular surgery, neurology Free Text DxA P NotesFree text DxA P notes:61yo M, w DM, CVA Acute metabolic encephalopathy here for eval for carotid restenosis. Pt had Umesh although Cr is better, awaiting CTA Head and neck, MRi and carotidsContinue Rx PT/OT/Speech8/6DW DR howell and DR duarte asa/plavix and statinsBS okPt had Cr 1.7 then 1.3pt wants to go home w sister Latrice, but advised to stay as he is at risk for devastating strokePt is upset because, he had MRI. CT scan again, he feels he can go home at take his meds and he will fine. He believes his stroke happened because he did not take meds for 1 monthI beleive pt should stay and have redo CEA next week02/06Increrase the lantus and SSIContinue therapyPt seems calmerDW Dr Howell and Dr Davila will have surgery next week 02/07-CTA neck showing 90% R ICA stenosis, Dr. Lerma consulted for surgery this week. -Cr improved to 1.3 from 1.7 at outside hospital, nephrology is consulted-Left anterior tibial leg wound: will get xray and wound culture. -Continue insulin regimen-UA with leukocyte esterase. One dose of rocephin and start Bactrim for UTI and anterior leg wound-Follow urine and wound Cx-Hematuria, will need outpatient f/u Quality: Gen Med Crit Care VTE ProphylaxisVTE prophylaxis initiated: yes Current MedicationsCurrent medication review:I attest that the foregoing medication list in the medical record is true, accurate, and complete to the best of my knowledge. AttestationsAttestation needed: teaching physician Kevin Owusu 02/07/22 2210:Attestations Teaching Physician AttestationF/U visit w/ resident:I saw the patient with the resident, Royce Maguire, PGY3 during rounds on 02/07/2022 and agree with the resident's findings and plan. at 1717 at 2211 RPT #:[id number] OF REPORTPRProgress lwlp2081-05-75K80:54:00Z.[id number] able for patient riccEDNXOVLVJAEJNA9582-94-97D63:18:05 [facility] 2022-02-06 23:53:00 [id number] RDpgX1I9A2i0K3woM4kwWtLucIblk Onu1QJxVjaFiUY33h8NacAohCZy5oUS3412-63-71X12:53:0 [id number] [address] PATIENT NAME: KAYLEE LEZAMA ADMIT DATE: 02/03/22ACCOUNT NO: [id number] ROOM NO: [facility] AGE: 61 REPORT TYPE: PROGRESS NOTE SEX: M ADMITTING PHYSICIAN:Kevin Owusu MD ATTENDING PHYSICIAN:Kevin Owusu MD DATE: 02/06/2022 CARDIAC SURGERY SERVICE The patient was seen at bedside in telemetry unit. The patient currently isstable. The patient is resting comfortably. We will talk with the patienttomorrow and make final decision about timing of redo right carotidendarterectomy. This will be discussed in detail with the patient. Dictated By: Brady Lerma MD WT: PN:ZALAYNA/WOLF/NTSDD: 02/06/2022 23:53:29DT: 02/07/2022 00:16:45Conf#: [id number]/DID#: [id number] Authenticated by Brady Lerma MD On 02/08/2022 11:39:10 PM at 1139 PATIENT NAME: KAYLEE LEZAMA opsi2089-65-11W94:16:00Z.[id number] ble for patient jrlqOZKOCQLXDBQUIY2703-60-69R23:39:39 [facility] 2022-02-06 13:37:00 [id number] [id number]+fETtUHlIy76yHsPFY+fnN8 0Vf1SR+zk/BKbeIDj14mZ903nrKRuGP9962-92-33W73:37:0 0 [facility] ([facility])Hospitalist Progress NoteREPORT#:[id number] REPORT STATUS: SignedDATE:02/06/22 TIME: 133 PATIENT: KAYLEE LEZAMA UNIT #: [id number]#: [id number] [facility] AGE: 61 SEX: M ATTEND: Maximilian Sepulveda AUTHOR: Maximilian Sepulveda MD * ALL edits or amendments must be made on the electronic/computer document * SubjectiveChief complaint:carotid stenosisHPI:This is a 61 y/o M w DM, DKA, HTN, UMESH, PVD B CEA transfrd from [facility] for eval of carotid restenosis The patient is a poor historian. However, he says he was told in the other hospital he had a couple of strokes, MRA suggested sig restenosis. Review of SystemsConstitutional:Denies: chills, fever, lethargy. Respiratory:Denies: MATA (dyspnea on exertion), pleuritic pain, productive cough (sputum). Cardiovascular:Denies: chest pain, orthopnea. Neuro:Reports: focal weakness. Psych:Reports: agitation. Denies: homicidal ideation, visual hallucination. All systems rev neg: except as marked Objective GeneralVS/I O:Vital Signs: Date Time Temp Pulse Resp B/P B/P Pulse O2 O2 Flow FiO2 Mean Ox Delivery Rate 02/06 1050 98.6 87 18 149/87 107.4 94 02/06 0725 81 18 146/84 104.4 96 02/06 0424 97.3 92 16 134/79 97.0 93 Room air 02/05 1830 98.1 95 16 115/75 88.5 99 Room air 02/05 1608 95 Room air 21 02/05 1601 98.2 91 14 188/96 126.4 95 24 hour I O ending at 0700: 02/06 0700 02/05 1900 Intake Total 1200 Output Total Balance 1200 Intake, Oral 1200 Number 1 Bowel Movements Number 3 Incontinent Voids PATIENT WEIGHT: Weight (lb): 154Weight (oz): 10.82Weight (kg): 69.853 Medications:Active Meds + DC'd Last 24 HrsAmlodipine Besylate (NORVASC TAB) 5 MG DAILY PO Losartan Potassium (COZAAR) 100 MG DAILY PO Clopidogrel Bisulfate (PLAVIX) 75 MG DAILY PO Famotidine (PEPCID) 20 MG BID PO Insulin Glargine (Lantus/Semglee) 10 UNITS BEDTIME SUBQ Aspirin (CHILDREN'S ASPIRIN) 81 MG DAILY PO Atorvastatin Calcium (LIPITOR) 80 MG BEDTIME PO Insulin Human Lispro (HumaLOG) LOW DOSE SLIDING SCALE AC HS SUBQ Lisinopril (PRINIVIL) 5 MG Q12HR PO (DC) Aspirin (ASPIRIN) 300 MG DAILY PRN PRN RECTAL Labetalol HCl (TRANDATE, NORMODYNE) 10 MG ASDIR PRN IV Nicotine (NICODERM) 14 MG DAILY PRN PRN TRANSDERM Acetaminophen (TYLENOL) 650 MG Q6H PRN PRN PO Dextrose/Water (DEXTROSE 50% IN WATER) 12.5 GM ASDIR PRN IV Dextrose/Water (DEXTROSE 50% IN WATER) 25 GM ASDIR PRN IV Hydralazine HCl (APRESOLINE) 10 MG Q6H PRN PRN IV Enoxaparin Sodium (LOVENOX) 40 MG Q24H SUBQ Physical ExamGeneral appearance: alert, awake, orientedHead/Eyes: atraumatic, normal conjunctiva/sclera, normocephalicENT: poor dentition, moist mucosal membranes, normal ear left, normal ear rightNeck: full range of motion, non-tenderCardiovascular: normal heart sounds, regular rate rhythmRespiratory: aerating wellAbdomen: distended, obese, non-tender, softGenitourinary: no urinary catheterExtremities: moves allMusculoskeletal: normal inspectionNeuro/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 Stroke Subacute stroke, Dr howell following with left side mild weakness Repeat CTA Head and neck suggests 90% stenosis on R and Left 70% MRI head multiple aeas of subacute stroke, mild possible SAH Has vascular dementia i think, gets agitated easily. Did not leave AMA, after sister asked him stay 2. Carotid stenosis Bilateral R> L plan repeat CEA by DR Lerma next week on ASA/Plavis/Lovenox 3. HLD (hyperlipidemia) High intensity statin 4. HTN (hypertension) Better on home meds, Losartan and norvasc 5. Diabetes On ozympic at home w Zigduo, amaryl and metformin Currently on lantus, will increase the dose and SSI Pt did not have ozympic brought to the hospital 6. UMESH (acute kidney injury) Cr 1.3 after bump of 1.7 at [place], Renal following Had received contrast w CTA's here 7. PVD (peripheral vascular disease) Consultants: cardiology, cardiovascular surgery, neurology Free Text DxA P NotesFree text DxA P notes:61yo M, w DM, CVA Acute metabolic encephalopathy here for eval for carotid restenosis. Pt had Umesh although Cr is better, awaiting CTA Head and neck, MRi and carotidsContinue Rx PT/OT/Speech8/6DW DR howell and DR durhamlan asa/plavix and statinsBS okPt had Cr 1.7 then 1.3pt wants to go home w sister Latrice, but advised to stay as he is at risk for devastating strokePt is upset because, he had MRI. CT scan again, he feels he can go home at take his meds and he will fine. He believes his stroke happened because he did not take meds for 1 monthI beleive pt should stay and have redo CEA next week8/7Increrase the lantus and SSIContinue therapyPt seems calmerDW Dr Howell and Dr Durhamt will have surgery next week Quality: Gen Med Crit Care VTE ProphylaxisVTE prophylaxis initiated: yes Current MedicationsCurrent medication review:I attest that the foregoing medication list in the medical record is true, accurate, and complete to the best of my knowledge. at 1400 RPT #:[id number] OF REPORTPRProgress zzey0495-90-00Q09:37:00Z.[id number] able for patient yerzYAFIMMFFFWZQBR6473-80-59X20:00:20 [facility] 2022-02-06 12:13:00 [id number] na3m7bgJ+3ohoInRDZvb6aZUIzPIS s3CY3Bxi9imq9cNZsMpHeJq7mlCHJrt8685-39-70O59:13:0 0 [facility] ([facility])Nephrology Progress NoteREPORT#:[id number] REPORT STATUS: SignedDATE:02/06/22 TIME: 1213 PATIENT: KAYLEE LEZAMA UNIT #: [id number]#: [id number] [facility] [birth year] AGE: 61 SEX: M ATTEND: Maximilian Sepulveda MDA AUTHOR: Karel Burgess MD * ALL edits or amendments must be made on the electronic/computer document * Objective Physical ExamHead/eyes: atraumatic, normocephalicENT: moist mucous membranesNeck: supple/no meningismus, no JVDCardiovascular: normal heart sounds, regular rate and rhythm, pedal pulses present, no murmurRespiratory: aerating well, clear to auscultation, normal breath sounds, symmetric expansionAbdomen: non-tender, normal bowel sounds, soft, no CVA tenderness, no distentionGenitourinary: no flank pain, no urinary catheterExtremities: non-tender, normal inspection, no edema, no swelling Diagnosis, Assessment PlanFree Text A P:A 61 Y/o man with PMHX of poorly controlled DM, HTN, PVD , who was admitted to [facility] for DKA managament, and UMESH , nephrology consulted for UMESH and electrolytes management, pt noticed to have change/no improvement in mental status , Neck MRA showed signifcant carotid stenosis , pt transfered for higher level of care Today No overnight ewvents stable VS at this point pt declined surgical intervention Conmt medical management A/P #UMESH improving peak Cr 1.7 at [facility] now cor down to 1.3 cont lisniopril pt to recive IV contrast today, cont IVF for one more dasy avoid NSAID renal dose medciations on losartan # Poorly controlled DM BS is better controlled now SSI #HTN BP controlled now # Carotid artery stenosis F/u CTA results CVS consult cont statin and losartan Pt declined surrgical intervention total time spent 45 minutes including documenetaion, reviewing labs and placing orders Consultants: cardiology, cardiovascular surgery, neurology at 1214 [facility] #:[id number] OF REPORTPRProgress zoqa5109-46-01M90:13:00Z.[id number] able for patient lgkjTSJGVGXORXUDJD3534-12-59P33:15:03 [facility] 2022-02-05 21:35:00 [id number] uBv34UFPFyZ9Yf5YW9snxyeJf1q3e dVOZpak5S/PiaIyAXEMUiZcpzK+1999-28-92K28:35:58822 6-0087 [place] [address] patient name: kaylee lezama admit date: 02/03/22account no: [id number] room no: [email or web address] age: 61 report type: progress note sex: m admitting physician:maximilian sepulveda md attending physician:maximilian sepulveda md date: 02/05/2022 neurology followup attending physician: maximilian sepulveda md subjective: the patient is well, alert and awake and he denies any headache,dizziness, or any problem with the speech or swallowing. he is stillcomplaining of having mild weakness on the left side. the patient states he isgetting better and he wants to go home. the patient also had a vascular surgeryevaluation and recommended to have a carotid endarterectomy next week. meanwhile, the patient was also placed on aspirin and plavix. objective:vital signs: blood pressure 115/75, respirations 16, pulse 95, and olehrokgezr34.1.heent: conjunctivae clear. throat; not congested. ear; no discharge.neck: supple. no carotid bruit.cardiovascular system: both the heart sounds present. no murmur.respiratory system: clear to auscultation.abdomen: soft, moves with respiration.extremities: no pedal edema.neurological: the patient is well alert and awake. oriented to place, person,month, and year. he follows commands. speech is clear. cranial nerveexamination; ocular movements were intact. there is a very subtle left facialasymmetry noted. tongue is in the midline. motor examination; power is 5/5over the right side, power over the left side is 4/5. no abnormal movementsnoted. sensory examination; appreciates touch and pain over all 4 extremities. laboratory data: glucose at bedside is 283. triglyceride 246, cholesterol 318,hdl 48, ldl 199. a ct angiogram of the brain and neck were reported with,1. severe mixed soft and calcific atherosclerosis of the right internal carotidartery ostium and proximal cervical segment resulting in multifocal areas ofsevere stenosis up to at least 90%.2. severe atherosclerosis of the bilateral internal carotid artery cavernoussegment with a suspect underlying stenosis up to 75%. moderate left vertebralartery atherosclerosis with focal severe calcification of the v1 segment andsuspect underlying severe stenosis.3. non-enhancement of the hypoattenuated area right frontal lobe, middlefrontal gyrus and focal cortex of the right occipital lobe. this represents age patient name: kaylee lezama indeterminate infarcts and are better assessed on same day mri of the brain. mri of the brain reported with multifocal areas of acute infarct noted involvingthe right frontal lobe, middle frontal gyrus, a single cortex of the rightoccipital lobe and in the frontoparietal white matter representing watershedischemic territory. minimal extraaxial flair and t1 hyperintensity signal seenadjacent to the right occipital infarct, possibly representing trace ofsubarachnoid hemorrhage. impression:1. acute multiple right cerebrovascular accident with left hemiparesis.2. severe right carotid artery stenosis up to 90% and also bilateral carotidartery severe stenosis intracranially.3. the patient is continuously stable neurologically at present. the patientis not having any new symptom and signs, other than left-sided weakness.4. uncontrolled diabetes mellitus with highly elevated hemoglobin a1c.5. hyperlipidemia with highly elevated cholesterol and triglyceride as well asldl.6. the patient is started with plavix and aspirin and also atorvastatin. thepatient is also followed by vascular surgery service as well as putty mixer forhis mildly elevated creatinine.7. the patient wants to go home. he is not realizing the seriousness of hisproblem. he does not want to have any surgery. the patient says he will bealright once he started taking his medications. recommendations:1. i had a long discussion with the patient about his neurological findings andmultiple strokes and also the severe blockage of the arteries in the neck andthe importance of having the surgery to clear the blockage. i told him if theblockage is not cleared, then he may have another stroke, then he will be leftwith severe paralysis. he understood.2. continuation of aspirin and plavix as such at present.3. continuation of atorvastatin 80 mg at bedtime.4. aggressive control of his blood sugar as well as lipids.5. continuation of lovenox as dvt prophylaxis.6. i also discussed with the pmd about the patient's neurological status andthe severe stenosis of his carotid artery and further management includingcarotid endarterectomy. pmd also discussed with the patient about the conditionand having the surgery to prevent recurrence of stroke and also controlling ofhis blood sugar and cholesterol. dictated by: feng nowak md wt: pn:lis.gautam/miryam/ntsdd: 02/05/2022 21:35:53dt: 02/05/2022 22:03:05conf#: [id number]/did#: [id number] authenticated by feng nowak on 03/01/2022 05:45:52 pm patient name: kaylee lezama electronically signed by jerry nowak md on 03/01/22 at 0545 patient name: kaylee lezama owft7378-68-03O13:03:00Z.[id number] ble for patient qsxtUGZNMGKIRMFCRA6571-21-30T83:46:32 [facility] 2022-02-05 08:54:00 [id number] Ncc2F915CTqXHTqUqvIAgY3i9juIU G+68ZF1RgRqZzuGtADF2uoZ/8LWoOk+2125-39-67D64:54:0 0 [facility] ([facility])Hospitalist Progress NoteREPORT#:[id number] REPORT STATUS: SignedDATE:02/05/22 TIME: 853 PATIENT: KAYLEE LEZMAA UNIT #: [id number]#: [id number] [facility] [birth year] AGE: 61 SEX: M ATTEND: Maximilian Sepulveda AUTHOR: Maximilian Sepulveda MD * ALL edits or amendments must be made on the electronic/computer document * SubjectiveChief complaint:carotid stenosisHPI:This is a 61 y/o M w DM, DKA, HTN, UMESH, PVD B CEA transfrd from [facility] for eval of carotid restenosis The patient is a poor historian. However, he says he was told in the other hospital he had a couple of strokes, MRA suggested sig restenosis. Review of SystemsConstitutional:Denies: chills, fatigue. Skin:Denies: abrasion, contusion. Eyes:Denies: redness. ENT:Denies: ear drainage, sore throat. Respiratory:Denies: MATA (dyspnea on exertion), pleuritic pain, pneumonia. Cardiovascular:Denies: chest pain, orthopnea, palpitations. GI:Denies: abdominal pain, melena, nausea. Neuro:Reports: focal weakness. Psych:Reports: agitation, anxiety. Objective GeneralMedications:Active Meds + DC'd Last 24 HrsClopidogrel Bisulfate (PLAVIX) 75 MG DAILY PO Famotidine (PEPCID) 20 MG BID PO Insulin Glargine (Lantus/Semglee) 10 UNITS BEDTIME SUBQ Iopamidol (ISOVUE-370) 0 .STK-MED ONE IV (DC) Aspirin (CHILDREN'S ASPIRIN) 81 MG DAILY PO Aspirin (CHILDREN'S ASPIRIN) 81 MG DAILY PO (DC) Atorvastatin Calcium (LIPITOR) 80 MG BEDTIME PO Insulin Human Lispro (HumaLOG) LOW DOSE SLIDING SCALE AC HS SUBQ Lisinopril (PRINIVIL) 5 MG Q12HR PO Aspirin (ASPIRIN) 300 MG DAILY PRN PRN RECTAL Labetalol HCl (TRANDATE, NORMODYNE) 10 MG ASDIR PRN IV Lactated Ringer's (LACTATED RINGERS) 1,000 ML Q13H IV (DC) Nicotine (NICODERM) 14 MG DAILY PRN PRN TRANSDERM Acetaminophen (TYLENOL) 650 MG Q6H PRN PRN PO Dextrose/Water (DEXTROSE 50% IN WATER) 12.5 GM ASDIR PRN IV Dextrose/Water (DEXTROSE 50% IN WATER) 25 GM ASDIR PRN IV Hydralazine HCl (APRESOLINE) 10 MG Q6H PRN PRN IV Enoxaparin Sodium (LOVENOX) 40 MG Q24H SUBQ Physical ExamGeneral appearance: alert, awake, orientedHead/Eyes: atraumatic, normal conjunctiva/sclera, normocephalicENT: poor dentition, moist mucosal membranes, normal ear left, normal ear rightNeck: full range of motion, non-tenderCardiovascular: normal heart sounds, regular rate rhythmRespiratory: aerating wellAbdomen: distended, obese, non-tender, softGenitourinary: no urinary catheterExtremities: moves allMusculoskeletal: normal inspectionNeuro/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: abnormal speech, altered mental status, alert, normal speechSkin: dryPsychiatry: abnl judgment/insight, unable to evaluate ResultsFindings/Data:Laboratory Tests 02/05 02/04 02/04 0709 1940 1610 Chemistry POC Glucose (60 - 99 MG/DL) 171 H 276 H 209 H Diagnosis, Assessment PlanProblem List/A P: 1. Stroke Subacute stroke, Dr howell following Repeat CTA Head and neck, carotids ordered 2. Carotid stenosis 3. HLD (hyperlipidemia) 4. HTN (hypertension) 5. Diabetes 6. UMESH (acute kidney injury) 7. PVD (peripheral vascular disease) Consultants: cardiology, cardiovascular surgery, neurology Free Text DxA P NotesFree text DxA P notes:61yo M, w DM, CVA Acute metabolic encephalopathy here for eval for carotid restenosis. Pt had Umesh although Cr is better, awaiting CTA Head and neck, MRi and carotidsContinue Rx PT/OT/Speech8/6DW DR howell and DR duarte asa/plavix and statinsBS okPt had Cr 1.6 then 1.3pt wants to go home w sister Latrice, but advised to stay as he is at risk for devastating strokePt is upset because, he had MRI. CT scan again, he feels he can go home at take his meds and he will fine. He believes his stroke happened because he did not take meds for 1 monthI beleive pt should stay and have redo CEA next week Quality: Gen Med Crit Care VTE ProphylaxisVTE prophylaxis initiated: yes Current MedicationsCurrent medication review:I attest that the foregoing medication list in the medical record is true, accurate, and complete to the best of my knowledge. at 1438 RPT #:[id number] OF REPORTPRProgress nhti7166-93-98K84:54:00Z.KYJV39768727-2405AWStpol able for patient qjluNCNQTJSYQPFNRK1473-45-89Y08:39:07 [facility] 2022-02-04 23:30:00 [id number]+nCs rOC1mMqtbqgmC5i04oaJ+6bG2PHt4 7BlKP8zIOgXrVQPqUkbKR5K3zOFuO5j8591-62-75Q30:30:0 0 [facility] ([facility])Nephrology Consultation NoteREPORT#:[id number] REPORT STATUS: SignedDATE:02/04/22 TIME: 2330 PATIENT: KAYLEE LEZAMA UNIT #: [id number]#: [id number] [facility] [birth year] AGE: 61 SEX: M ATTEND: Maximilian Sepulveda MDADM AUTHOR: Karel Burgess MD * ALL edits or amendments must be made on the electronic/computer document * History of Present IllnessReason for consult:UMESH History - Adult longitudinalAdditional medical history:accurate pmh unable to obtain, unreliable historian, lack of paperwork from transfer facility in chartAdditional surgical history:accurate psh unable to obtain, unreliable historian, lack of paperwork from transfer facility in chartFamily history:Denies: Diabetes, Heart disease. Alcohol use: Alcohol use (significant in the past)Drug use: Denies recreational drugsSmoking status: Smoking status for patients 13 years old or older: Current every day smoker Packs per day: 1.5Allergies:Coded Allergies:No Known Drug Intolerances (UNKNOWN 02/03/22) GENERIC Allergy: NO KNOWN ALLERGIESNot Converted 80. See Text. (UNKNOWN 02/03/22) GENERIC Allergy: PHA: Review of SystemsConstitutional:Reports: malaise. Denies: chills, fatigue, fever. Skin:Denies: abrasion, bruising, contusion. Allergy/Immun:Denies: allergic reaction, anaphylaxis, hives, itching. Eyes:Denies: redness, discharge, visual loss/blurred, itching. ENT:Denies: ear drainage, ear ringing, earache, hearing loss, mouth pain, nasal congestion. Respiratory:Denies: hemoptysis, non productive cough, parox nocturnal dyspnea, pleurisy, pleuritic pain, pneumonia, productive cough (sputum), SOB, wheezing. Cardiovascular:Denies: chest pain, edema, orthopnea, palpitations. GI:Denies: abdominal pain, anorexia, constipation, diarrhea, dysphagia, GERD, hematemesis, hematochezia, hiatal hernia, melena, nausea. :Denies: dysuria, flank pain, frequency, hematuria, nocturia, penile discharge, penile lesion. Musculoskeletal:Denies: arthritis, extremity pain, extremity swelling, joint pain, joint swelling, lumbar pain. Objective GeneralVS/I O:Vital Signs: Date Time Temp Pulse Resp B/P B/P Pulse O2 O2 Flow FiO2 Mean Ox Delivery Rate 02/04 1820 36.9 87 14 154/67 95.8 95 Room air 02/04 1818 95 Room air 21 02/04 1612 36.9 66 13 155/80 104.9 99 / 1130 37.0 81 13 161/90 113.5 94 / 0723 36.9 79 13 148/83 104.6 96 / 0410 36.7 72 12 130/62 84.9 98 Room air 02/04 0025 37.1 76 15 179/83 115.0 92 Room air PATIENT WEIGHT: Weight (lb): 154Weight (oz): 10.82Weight (kg): 69.853 Physical ExamGeneral appearance: alert, awakeHead/eyes: atraumatic, normocephalicENT: moist mucous membranesNeck: supple/no meningismus, no JVDCardiovascular: normal heart sounds, regular rate and rhythm, pedal pulses present, no murmurRespiratory: aerating well, clear to auscultation, normal breath sounds, symmetric expansionAbdomen: non-tender, normal bowel sounds, soft, no CVA tenderness, no distentionGenitourinary: no flank pain, no urinary catheterExtremities: non-tender, normal inspection, no edema, no swelling Diagnosis, Assessment PlanConsultants: cardiology, cardiovascular surgery, neurology Free Text DxA P NotesFree text DxA P notes:A 61 Y/o man with PMHX of poorly controlled DM, HTN, PVD , who was admitted to [facility] for DKA managament, and UMESH , nephrology consulted for UMESH and electrolytes management, pt noticed to have change/no improvement in mental status , Neck MRA showed signifcant carotid stenosis , pt transfered for higher level of care A/P #UMESH improving peak Cr 1.7 now cor down to 1.3 cont lisniopril pt to recive IV contrast today, cont IVF for one more dasy avoid NSAID renal dose medciations # Poorly controlled DM BS is better controlled now SSI #HTN BP controlled now # Carotid artery stenosis F/u CTA results CVS consult cont statin total time spent 45 minutes including documenetaion, reviewing labs and placing orders at 1208 RPT #:[id number] OF REPORTCGQmkmafqmdtyk2346-05-27V39:30:00Z.PDOC2 [id number] for patient laaiXXONWQRAOHGWLB4631-38-75Z52:08:32 [facility] 2022-02-04 21:26:00 [id number] FzUKFjQh5lztdguicOA7LC5xexfTc B+fXeT0JhqEzVhKLf/IsHLCkAVi7x5p0656-90-90Y98:26:0 [phone] [place] [id number] PATIENT NAME: KAYLEE LEZAMA ADMIT DATE: 02/03/22ACCOUNT NO: [id number] ROOM NO: .9 AGE: 61 REPORT TYPE: CONSULTATION REPORT SEX: M ADMITTING PHYSICIAN:Kevin Owusu MD ATTENDING PHYSICIAN:Kevin Owusu MD CONSULTATION DATE: 02/04/2022 CONSULTING PHYSICIAN: Brady Lerma MD The patient is seen at bedside in telemetry unit. DIAGNOSES: Right cerebrovascular accident, high-grade right internal carotidartery stenosis, hypertension, hyperlipidemia, chronic obstructive pulmonarydisease, diabetes, peripheral vascular disease, status post left fem-pop bypass,severe bilateral coronary artery disease, status post bilateral carotidendarterectomy. BRIEF HISTORY: This is a 61[facility] on [facility] side with left-sided weakness. The patient had a CT scan, MRI demonstrating multiple sites of acute infarct onthe right side. CT angiogram shows 90% stenosis right internal carotid arteryand about 70% stenosis of the internal carotid artery at the base of the skullbilaterally. The patient is status post right and left previous carotidendarterectomies. The patient smokes tobacco daily. Denies alcohol, denieshaving had CVA in the past. Additionally, came to the hospital, had mentalstatus changes. ALLERGIES: HE HAS NO ALLERGIES TO MEDICATION. REVIEW OF SYSTEMS: Otherwise, is negative. No history of hemophilia,coagulopathy, varicose vein stripping or phlebitis. LABORATORY DATA: BUN is 27, creatinine 1.3. PT 14.7, INR 1.3, PTT 41.1, whitecount 8.9, hemoglobin 12.5, hematocrit 39.2, platelet count 270s. The patient is currently on Lovenox, labetalol, atorvastatin, lisinopril, andaspirin. PHYSICAL EXAMINATION:GENERAL: Demonstrates well-nourished male, in no apparent distress.NECK: No carotid bruits. Carotid pulse present. Radial pulse present.CHEST: Clear.EXTREMITIES: Peripheral pulse present. Popliteal pedal pulse absent.BREASTS AND RECTAL: Not done.NEUROLOGICAL: The patient is slightly weak on the left arm compared to right. 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 ____reports he is somewhat weak in the left leg, by their report patient has been at PATIENT NAME: KAYLEE LEZAMA bed rest most of the day. ASSESSMENT AND PLAN: High-grade right internal carotid artery stenosis, statuspost cerebrovascular accident, right side. The patient actually is quitefunctional at this point in time. We will continue on aspirin and Plavix. Follow him over the weekend. We would like to have a carotid duplex scan alsoon Monday. We will reassess the patient and his overall functional capacity atthat time and decide on timing for surgery. This has been discussed in detailwith the patient, he agrees. Dictated By: Brady Lerma MD WT: CON:FIDEL/WOLF/NTSDD: 02/04/2022 21:26:36DT: 02/04/2022 21:44:46Conf#: [id number]/DID#: [id number] Authenticated by Brady Lerma MD On 02/08/2022 11:39:08 PM at 1139 PATIENT NAME: KAYLEE LEZAMA :44:00Z.NJ [id number] for patient sgupTKOCPMYKVNYUZJ7955-32-24K82:39:39 [facility] 2022-02-04 14:17:00 [id number] 7+aIMZPj490JkBYYF2d0Pcw3lWe4V hM6AFZjSoJV6WdDaoXU84dMbQmm9076-42-21R36:17:08147 5-0080 [place] [address] patient name: kaylee lezama admit date: 02/03/22account no: [id number] room no: z.si06 age: 61 report type: consultation report sex: m admitting physician:maximilian sepulveda md attending physician:maximilian sepulveda md consultation date: 02/04/2022 consulting physician: feng noawk md neurology consultation attending physician: maximilian sepulveda m.d. chief complaint: history of altered mental status with left-sided weakness. history of present illness: this is a 61-year-old male with a history ofhypertension, diabetes mellitus, chronic obstructive pulmonary disease, andstatus post bilateral carotid endarterectomy transferred from [facility] for evaluation and treatment of his stroke. the patientis a poor historian. however, he says he was told in the other hospital he hada couple of strokes, but he says he did not have a stroke in the past. he isalso having blockage in his legs and he had a surgery in his neck on both thesides in 2013. at present, he denies any headache, dizziness, or any problemwith the speech or swallowing. he is complaining of having weakness on his leftside. as per the chart, the patient was initially admitted in [facility] for dka with changes in his mental status. the patientalso had a neuroimaging study and he was noted having strokes. he also had mrangiogram over there, which was reported with carotid stenosis of more than 80%as per the chart. so, the patient was [facility] furtherevaluation and management. the patient was also evaluated by the vascularsurgery service and recommended for a ct angiogram of the brain and neck. asper the staff, the patient is more alert and awake and less confused at present. there is no history of any fever or chills reported. past medical history:1. history of hypertension.2. history of diabetes mellitus.3. history of chronic obstructive pulmonary disease.4. carotid artery disease. past surgical history: bilateral carotid endarterectomy. personal and social history: the patient denies drinking alcohol, but he sayshe smokes every day for many years. he denies any street drug use. family history: sister with a history of diabetes mellitus. patient name: kaylee lezama allergies: no known drug allergy. current medications: pepcid 20 mg b.i.d. p.o., aspirin 81 mg daily p.o.,lisinopril 5 mg q. 12 hours p.o., atorvastatin 80 mg at bedtime p.o., nicotinepatch, labetalol 10 mg as directed iv, hydralazine 10 mg q. 6 hours p.r.n.,tylenol 650 mg q. 6 hours p.r.n., lovenox 40 mg subcutaneously once a day. review of systems:general: no fever or loss of weight.heent: no regular headache; dizziness; ear, nose, or throat problem.cardiovascular: no chest pain or shortness of breath.respiratory: no cough or wheezing.gastrointestinal and genitourinary no ulcer stomach, bleeding, or bladderproblem.endocrine: diabetes mellitus present. general physical examination:vital signs: blood pressure 161/90, respirations 13, pulse 81, and qpgzfgkrbem42.6.heent: conjunctivae clear. throat not congested. ear no discharge.neck: supple. no carotid bruit. there is bilateral carotid artery surgerynoted.cardiovascular: both the heart sounds present. no murmur.respiratory: clear to auscultation.abdomen: soft, moves with respiration.extremities: no pedal edema.neurologic: the patient is well alert and awake during the exam. he isoriented to place, person, month, and year. follows commands. speaks clearly. the patient can name objects and repeat.cranial nerves: pupils equal and reacting to light. no visual field defectnoted. ocular movements were intact. no nystagmus noted. there is a verysubtle left facial asymmetry noted. tongue is in the midline.motor: power is 5/5 over the right side. power over the left side is 4/5. noabnormal movements noted. tone appeared to be mildly decreased on the left sidecompared to the right side. deep tendon reflexes are 1+ over all 4 extremitiesexcept absent ankle reflexes bilaterally. plantar equivocal on the right side,the extensor over the left side.coordination testing: the patient can do smxwtw-se-lkmf with demonstration. kvcp-ai-vtjq, romberg, and gait not tested.sensory: appreciates touch and pain over all 4 extremities. laboratory data: sodium 135, potassium 4.3, chloride 103, bicarbonate 27,glucose 189, bun 27, creatinine 1.30. total protein 7.1, albumin 3.4, calcium8.6. triglyceride 246, cholesterol 318. ast 26, alt 22, alkaline vraswactcdk031. hdl 48, ldl 199. psa 2.6. vitamin b12 is 843. t4 free 1.5, tsh 5.820. hemoglobin a1c 11.0. inr 1.3, ptt 41.1. wbc 8.9, hemoglobin 12.5, kmixwhwpxj68.2, and platelet count 270,000. impression: this is a 61-year-old male with a history of hypertension, diabetesmellitus, chronic obstructive pulmonary disease, and bilateral carotidendarterectomy in the past transferred from outside hospital for evaluation ofstroke. the patient was also noted confused initially, but the patient is morealert and awake. he was cooperative and follows simple commands. the patientis oriented to place, person, month, and year during the exam. however, he is patient name: kaylee lezama noted having mild left-sided weakness. the patient's history and the findingsare suggestive of:1. possible acute right cerebrovascular accident with left hemiparesis.2. history of carotid artery disease.3. history of altered mental status, which may be secondary to cerebrovascularaccident, but the patient shows improvement in his mental status at present.4. history of diabetes mellitus. the patient is noted having hemoglobin a1c of11, which appeared to be uncontrolled diabetes. recommendations:1. we will get an mri of the brain without contrast to rule out acuteinfarction.2. ct angiogram of the brain and neck to assess the vascular stenosis.3. echocardiogram to rule out thrombus.4. we will keep him on telemetry monitoring to rule out arrhythmia.5. we will continue the aspirin 81 mg as a tia and cva prophylactic at present.6. continuation of atorvastatin 80 mg at bedtime.7. aggressive control of his blood sugar.8. physical and occupational therapy evaluation and treatment.9. continuation of lovenox as dvt prophylaxis.10. i also discussed with the staff to monitor him closely for any changes inhis mental status. i also recommended to have his home medications, to get itfrom his sister who is taking care of him.11. we will also get a urinalysis to rule out any urinary tract infection. wewill follow him with the above test reports. thank you for the consultation. please call me if you need more informationpertinent to his neurological status. dictated by: feng nowak md wt: con:lisalayna/miryam/ntsdd: 02/04/2022 14:17:55dt: 02/04/2022 15:01:49conf#: [id number]/did#: [id number] authenticated by feng nowak on 02/28/2022 08:47:24 pm electronically signed by jerry nowak md on 02/28/22 at 0847 patient name: kaylee lezama :01:00Z.N[place] [id number] for patient njjlGFBZNNDNBRBOUG3943-66-12C47:48:04 [facility] 2022-02-04 11:42:00 [id number] x4Cz1mqO3/YBXf6toAgdBduxIjdi3 OsfB5559OSDv+zE9dot/DjJL5lM/Tdv3031-62-19T54:42:0 0 [facility] ([facility])Hospitalist Progress NoteREPORT#:[id number] REPORT STATUS: SignedDATE:02/04/22 TIME: 1142 PATIENT: KAYLEE LEZAMA UNIT #: [id number]#: [id number] [facility] AGE: 61 SEX: M ATTEND: Maximilian Sepulveda AUTHOR: Maximilian Sepulveda MD * ALL edits or amendments must be made on the electronic/computer document * See AddendumSubjectiveChief complaint:carotid stenosisHPI:This is a 61 y/o M w DM, DKA, HTN, UMESH, PVD B CEA transfrd from [facility] for eval of carotid restenosis The patient is a poor historian. However, he says he was told in the other hospital he had a couple of strokes, MRA suggested sig restenosis. Review of SystemsConstitutional:Denies: chills, generalized weakness. Respiratory:Denies: hemoptysis, parox nocturnal dyspnea. Cardiovascular:Denies: chest pain, edema. All systems rev neg: except as marked Objective GeneralVS/I O:Vital Signs: Date Time Temp Pulse Resp B/P B/P Pulse O2 O2 Flow FiO2 Mean Ox Delivery Rate 02/04 1130 98.6 81 13 161/90 113.5 94 / 0723 98.4 79 13 148/83 104.6 96 / 0410 98.1 72 12 130/62 84.9 98 Room air 02/04 0025 98.8 76 15 179/83 115.0 92 Room air 02/03 1911 98.2 95 16 150/79 102.9 95 Room air 02/03 1551 97.7 91 18 174/101 125.6 97 PATIENT WEIGHT: Weight (lb): 154Weight (oz): 10.82Weight (kg): 70.160 Medications:Active Meds + DC'd Last 24 HrsFamotidine (PEPCID) 20 MG BID PO Iopamidol (ISOVUE-370) 0 .STK-MED ONE IV (DC) Aspirin (CHILDREN'S ASPIRIN) 81 MG DAILY PO Aspirin (CHILDREN'S ASPIRIN) 81 MG DAILY PO Atorvastatin Calcium (LIPITOR) 80 MG BEDTIME PO Famotidine (PEPCID) 20 MG Q12HR IV (DC) Insulin Human Lispro (HumaLOG) LOW DOSE SLIDING SCALE AC HS SUBQ Lisinopril (PRINIVIL) 5 MG Q12HR PO Aspirin (ASPIRIN) 300 MG DAILY PRN PRN RECTAL Labetalol HCl (TRANDATE, NORMODYNE) 10 MG ASDIR PRN IV Lactated Ringer's (LACTATED RINGERS) 1,000 ML Q13H IV Nicotine (NICODERM) 14 MG DAILY PRN PRN TRANSDERM Acetaminophen (TYLENOL) 650 MG Q6H PRN PRN PO Dextrose/Water (DEXTROSE 50% IN WATER) 12.5 GM ASDIR PRN IV Dextrose/Water (DEXTROSE 50% IN WATER) 25 GM ASDIR PRN IV Hydralazine HCl (APRESOLINE) 10 MG Q6H PRN PRN IV Enoxaparin Sodium (LOVENOX) 40 MG Q24H SUBQ Physical ExamGeneral appearance: alert, awake, orientedHead/Eyes: atraumatic, normal conjunctiva/sclera, normocephalicENT: poor dentition, moist mucosal membranes, normal ear left, normal ear rightNeck: full range of motion, non-tenderCardiovascular: normal heart sounds, regular rate rhythmRespiratory: aerating wellAbdomen: distended, obese, non-tender, softGenitourinary: no urinary catheterExtremities: moves allMusculoskeletal: normal inspectionNeuro/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: abnormal speech, altered mental status, alert, normal speechSkin: dryPsychiatry: abnl judgment/insight, unable to evaluate ResultsFindings/Data:Laboratory Tests 02/04 02/04 02/04 02/04 02/03 1137 0803 0726 0505 1911Chemistry Sodium (137 - 145 MMOL/L) 135 L Potassium (3.5 - 5.1 MMOL/L) 4.3 Chloride (98 - 107 MMOL/L) 103 Carbon Dioxide (22 - 30 MMOL/L) 27 Anion Gap (14 - 24 MMOL/L) 9 L BUN (9 - 20 MG/DL) 27 H Creatinine (0.66 - 1.25 MG/DL) 1.30 H Glomerular Filtr Rate 56 Glucose (74 - 106 MG/DL) 189 H POC Glucose (60 - 99 MG/DL) 168 H 147 H 153 H 176 H Calcium (8.4 - 10.2 MG/DL) 8.6 Magnesium (1.6 - 2.3 MG/DL) 1.9 Total Bilirubin (0.2 - 1.3 MG/DL) 0.6 AST (17 - 59 UNITS/L) 26 ALT (0 - 49 UNITS/L) 22 Total Alk Phosphatase (38 - 126 113UNITS/L) Total Protein (6.2 - 7.6 G/DL) 7.1 Albumin (3.5 - 5.0 G/DL) 3.4 L 02/03 02/03 02/03 02/03 02/03 1655 1655 1655 1655 1628Chemistry POC Glucose (60 - 99 MG/DL) 185 H Mean Blood Glucose (70 - 110 MG/DL) 269 H Hemoglobin A1c (4.8 - 5.9 %) 11.0 H Triglycerides (150 - 199 MG/DL) 246 H Cholesterol (<200 MG/DL) 318 LDL Cholesterol Measurd (0 - 99 199 HMG/DL) HDL Cholesterol (40 - 59 MG/DL) 48 Prostate Specific Ag (0.0 - 4.0 2.6ng/mL) Vitamin B12 (239 - 931 pg/mL) 843 TSH (0.465 - 4.68 MIU/L) 5.820 H Free T4 (0.78 - 2.19 NG/DL) 1.5 Free T3 (2.77 - 5.27 PG/ML) 3.24 Laboratory Tests 02/04 0505 Coagulation INR (0.86 - 1.14) 1.3 H APTT (26.2 - 35.4 SECONDS) 41.1 H PT Patient/Control Mix (9.4 - 12.7 SECONDS) 14.7 H Laboratory Tests 08 0505 Hematology WBC (3.8 - 9.8 K/MM3) 8.9 RBC (3.95 - 5.67 M/MM3) 4.10 Hgb (12.4 - 16.7 G/DL) 12.5 Hct (35.9 - 49.5 %) 39.2 MCV (81.7 - 96.1 fL) 96 MCH (27.6 - 33.2 pg) 30.5 MCHC (32.9 - 35.5 %) 31.9 L RDW (12.1 - 15.2 %) 13.4 Plt Count (129 - 368 K/MM3) 270 MPV (7.4 - 10.4 fl) 9.7 Neut % (Auto) (43 - 75 %) 55.3 Lymph % (Auto) (14 - 44 %) 22.2 [place] % (Auto) (4 - 13 %) 19.2 H Eos % (Auto) (0 - 6 %) 1.8 Baso % (Auto) (0 - 2 %) 0.9 Neut # (Auto) (2.0 - 7.6 K/mm3) 4.94 Lymph # (Auto) (1.0 - 3.8 K/mm3) 1.98 [place] # (Auto) (0.1 - 0.8 K/mm3) 1.71 H Eos # (Auto) (0.0 - 0.2 K/mm3) 0.16 Baso # (Auto) (0.0 - 0.2 K/mm3) 0.08 Immature Gran % (0.0 - 2.0 %) 0.6 Nucleated RBC % (0 - 1.0 %) 0.0 Nucleated RBCs # (Man) (0.0 - 0.1 K/mm3) 0.00 Radiology data:Recent Impressions:RADIOLOGY - XR CHEST 1V 02/04 2020 Report Impression - Status: SIGNED Entered: 02/03/20222049 IMPRESSION: No acute cardiopulmonary process.Impression By: [email or web address] Asmita Ramirez MD Diagnosis, Assessment PlanProblem List/A P: 1. Stroke Subacute stroke, Dr howell following Repeat CTA Head and neck, carotids ordered 2. Carotid stenosis 3. HLD (hyperlipidemia) 4. HTN (hypertension) 5. Diabetes 6. UMESH (acute kidney injury) 7. PVD (peripheral vascular disease) Free Text DxA P NotesFree text DxA P notes:61yo M, w DM, CVA Acute metabolic encephalopathy here for eval for carotid restenosis. Pt had Umesh although Cr is better, awaiting CTA Head and neck, MRi and carotidsContinue Rx PT/OT/Speech Quality: Gen Med Crit Care VTE ProphylaxisVTE prophylaxis initiated: yes Current MedicationsCurrent medication review:I attest that the foregoing medication list in the medical record is true, accurate, and complete to the best of my knowledge. at 1555 Addendum 1: 02/04/22 1853 by Maximilian Sepulveda MD MRI head and CTA noted, left message w DR howell and DR Gilliam able to speak to family, number not in servicePt has metabolic encephalopathy, confused w his answers at times at 1854 RPT #:[id number] OF REPORTPRProgress zmqb5930-36-59R86:42:00Z.MRPN93981700-7065TNUleph able for patient zpplSKXOQFJYECBAVB3740-74-27J24:56:17 [facility] 2022-02-03 23:08:00 [id number] gWomoOuElFb5nrI8IiwbWgEWIy8d/ CAyv0C9pBUYKebnEFGWC3UZkBKj++he1788-87-34S78:08:0 [id number] [address] PATIENT NAME: KAYLEE LEZAMA ADMIT DATE: 02/03/22ACCOUNT NO: [id number] ROOM NO: Z.619 AGE: 61 REPORT TYPE: CONSULTATION REPORT SEX: M ADMITTING PHYSICIAN:Kevin Owusu MD ATTENDING PHYSICIAN:Kevin Owusu MD CONSULTATION DATE: 02/03/2022 CONSULTING PHYSICIAN: Brady Lerma MD CARDIAC SURGERY SERVICE This patient was transferred to the hospital today with history of stroke,peripheral vascular disease_. He has no data with him. By history, the patient had an MRI showing 80% carotid stenosis. We did not know which side. Again noted the patient was brought to the hospital. We will get a carotid duplex scan in the morning. We will order a carotid arterial Doppler in the morning. We will get CT angiogram carotid arteries. We need to have a CTA head as well. Neuro consult evaluation and I will make further recommendation once the imaging information was available. Dictated By: Brady Lerma MD WT: CON:FIDEL/WOLF/NTSDD: 02/03/2022 23:08:42DT: 02/03/2022 23:35:15Conf#: [id number]/DID#: [id number] Authenticated and Edited by Brady Lerma MD On 02/08/22 11:38:54 PM at 1139 PATIENT NAME: KAYLEE LEZAMA :35:00Z.N[place] [id number] for patient aynqCUDWJMZGDMCKWQ7760-42-16Z04:40:29 [facility] 2022-02-03 19:46:00 [id number] jIknn9gog91lHCtrzZ7SGN3EbilnJ 18qNx7YLMoDEtl01vJ8dXsqBCBhXLSh1513-26-62W93:46:0 0 [facility] ([facility])Hospitalist History PhysicalREPORT#:[id number] REPORT STATUS: SignedDATE:02/03/22 TIME: 1945 PATIENT: KAYLEE LEZAMA UNIT #: [id number]#: [id number] ROOM[facility]BED: [facility]-ADOB: [birth year] AGE: 61 SEX: M ATTEND: Maximilian Sepulveda MDA AUTHOR: Varun Treviño MD R3 * ALL edits or amendments must be made on the electronic/computer document * Varun Treviño 02/03/221945:History of Present Illness HPIChief complaint:carotid stenosisPCP:PCP: No Primary or Family Physician HPI:61yo M, disoriented, unreliable historian. AOx2 to name and year. Mildly uncooperative stating, "you're just going to do whatever you want anyway". Complaining of hunger and NPO statusInitially says he has no medical issues other than stroke. Elicited possible h/oDM2, HTN, HLD, prior cartoid endarectomy, multiple CVAs. Pt was seen at [facility] for DKA and was stabilized and was found to have carotid stenosis and stroke. Per RN report, pt was confused during the day and pulled out his IVFs.MRA carotid stenosis >70%.No paperwork in patient chart from [facility] other than sparse handwritten admit order with only dx of carotid stenosis and stroke in chart.Dr. Barone accepted the transfer. Pt was admitted here for possible carotid endarectomy with Dr. Lerma.Dr. Lerma, Dr. Mejia consulted. Informant/historian: patient, prior records, referring physician History Past Medical Surgical HxAdditional medical history:accurate pmh unable to obtain, unreliable historian, lack of paperwork from transfer facility in chart Additional surgical history:accurate psh unable to obtain, unreliable historian, lack of paperwork from transfer facility in chart Social HistoryAlcohol use: Alcohol use (significant in the past)Drug use: Denies recreational drugsSmoking status: Smoking status for patients 13 years old or older: Current every day smoker Packs per day: 1.5 Medication/Allergy-Vaccine HxAllergies:Coded Allergies:No Known Drug Intolerances (UNKNOWN 02/03/22) GENERIC Allergy: NO KNOWN ALLERGIESNot Converted 80. See Text. (UNKNOWN 02/03/22) GENERIC Allergy: PHA: Review of SystemsRespiratory:Denies: SOB. Cardiovascular:Denies: chest pain. Psych:Reports: agitation. Unable to obtain due to:mildly uncooperative "you're going to do whatever you want anyway"unreliable historian Physical ExamVS/I O:Vital Signs Date Temp Pulse Resp B/P B/P Mean Pulse Ox FiO2 02/03 36.5-37.0 91-102 16-18 145-180/73-101 97.0-125.6 95-97 Last Documented: Result Date Time Pulse Ox 95 02/03 1911 B/P 150/79 02/03 1911 B/P Mean 102.9 02/03 1911 O2 Delivery Room air 02/03 1911 Temp 36.8 02/03 1911 Pulse 95 02/03 1911 Resp 16 02/03 1911 Patient Weight and BMI Weight (kg): BMI: General appearance: altered mental status, awakeHead/Eyes: atraumatic, normal conjunctiva/sclera, normocephalicENT: poor dentition, moist mucosal membranes, normal ear left, normal ear rightNeck: full range of motion, non-tenderCardiovascular: normal heart sounds, regular rate rhythmRespiratory: aerating wellAbdomen: distended, obese, non-tender, softGenitourinary: no urinary catheterExtremities: moves allMusculoskeletal: normal inspectionNeuro/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: abnormal speech, altered mental status, alert, normal speechSkin: dryPsychiatry: abnl judgment/insight, unable to evaluate ResultsFindings/Data:Laboratory Tests: 02/03 1655 1655 1655 1628Chemistry POC Glucose (60 - 99 MG/DL) 176 H 185 H Triglycerides (150 - 199 MG/DL) 246 H Cholesterol (<200 MG/DL) 318 LDL Cholesterol Measurd (0 - 99 MG/DL) 199 H HDL Cholesterol (40 - 59 MG/DL) 48 Prostate Specific Ag (0.0 - 4.0 ng/mL) 2.6 Vitamin B12 (239 - 931 pg/mL) 843 TSH (0.465 - 4.68 MIU/L) 5.820 H Free T4 (0.78 - 2.19 NG/DL) 1.5 Free T3 (2.77 - 5.27 PG/ML) 3.24 08 08 1142 0857 Chemistry POC Glucose (60 - 99 MG/DL) 185 H 169 H Diagnosis, Assessment PlanProblem List/A P: 1. Stroke LDL 199 -CVA protocol (echo, carotid dup, MRI, CXR, neuro Jackie consult) -Florentin consulted for possible carotid endarectomy -atorvastatin 80 2. Carotid stenosis LDL 199 -CVA protocol (echo, carotid dup, MRI, CXR, neuro Jackie consult) -Florentin consulted for possible carotid endarectomy -atorvastatin 80 3. HLD (hyperlipidemia) LDL 199 -CVA protocol (echo, carotid dup, MRI, CXR, neuro Jackie consult) -Florentin consulted for possible carotid endarectomy -atorvastatin 80 4. HTN (hypertension) unknown home meds -start lisinopril -continue to monitor and adjust 5. Diabetes -A1c pending -SSI -glucose checks Free Text A P:61yo M, disoriented, unreliable historian. AOx2 to name and year. Mildly uncooperative stating, "you're just going to do whatever you want anyway". Complaining of hunger and NPO statusInitially says he has no medical issues other than stroke. Elicited possible h/oDM2, HTN, HLD, prior cartoid endarectomy, multiple CVAs. Pt was seen at [facility], possibly for DKA and stabilized, and was found to havecarotid stenosis and stroke. Per RN report, pt was confused during the day and pulled out his IVFs.MRA carotid stenosis >70%.No paperwork in patient chart from [facility] other than sparse handwritten admit order with only dx of carotid stenosis and stroke in chart.Dr. Barone accepted the transfer. Pt was admitted here for possible carotid endarectomy with Dr. Lerma.Dr. Lerma, Dr. Mejia consulted. #CVA#carotid stenosis#HLDLDL 199-CVA protocol (echo, carotid dup, MRI, CXR, neuro Jackie consult)-Florentin consulted for possible carotid endarectomy-atorvastatin 80 #HTNunknown home meds-start lisinopril-continue to monitor and adjust #DM2?#h/o DKA?-A1c crdhndi-JRS-oxkgaux checks DVT PPx: SCDscode status DNR? Quality: Gen Med Crit Care VTE ProphylaxisVTE prophylaxis initiated: yes Current MedicationsCurrent medication review:I attest that the foregoing medication list in the medical record is true, accurate, and complete to the best of my knowledge. AttestationsAttestation needed: teaching physician Maximilian Sepulveda 02/04/22 1543:History Family HistoryFamily history:Denies: Diabetes, Heart disease. Physical ExamVS/I O:Vital SignsDate Temp Pulse Resp B/P B/P Mean Pulse Ox VzZ564/04-02/04 97.7-98.8 72-95 12-18 130-179/62-101 84.9-125.6 92-98 Last Documented: Result Date Time Pulse Ox 94 08 1130 B/P 161/90 08/ 1130 B/P Mean 113.5 02/04 1130 Temp 98.6 02/04 1130 Pulse 81 08 1130 Resp 13 02/04 1130 O2 Delivery Room air 02/04 0410 Patient Weight and BMI Weight (kg): 70.160 BMI: 19.9 Diagnosis, Assessment PlanProblem List/A P: 1. Stroke 2. Carotid stenosis 3. HLD (hyperlipidemia) 4. HTN (hypertension) 5. Diabetes 6. UMESH (acute kidney injury) Consultants: cardiology, cardiovascular surgery, neurology Attestations Teaching Physician Mnwekvphtpy8dh visit w/ resident:I was present with the resident during the history and exam. I discussed the case with the resident and . . . agree with the findings and plan as documented in the resident's note. at 2044 at 1540 RPT #:[id number] OF REPORTHPHistory and physical bsmpfcokqpr1641-07-80C18:46:00Z.[id number] AVAvailable for patient pfylRBIUTTEBZTJTGL3372-11-00K89:49:46 HCAWU 2022-02-03 18:36:00 [id number] +tmqLi89Kd1wmVdQJvi0/eq2FD/[id number]:36:[id number] 4-[address] [address] patient name: kaylee lezama admit date: 02/03/22account no: [id number] room no: z.si06 age: 61 report type: consultation report sex: m admitting physician:maximilian sepulveda md attending physician:maximilian sepulveda md consultation date: consulting physician: nadira barone jr, md cardiology note a 61-year-old gentleman referred for further stroke evaluation and treatment. social history: he may have been a smoker. no current alcohol use. past medical history: previous carotid surgery he says. history of present illness: [facility] and developed dka and was brought into the hospital withsome change in mental status and was found to have strokes on neuro imaging andmra presumably showing tight carotid stenosis 80% or more. thus referred forfurther intervention. he was on a waitlist for transfer [facility] more than [facility] and a request was put in for transfer to [facility] if we were able to help. 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 laboratory data: i have drawn some initial labs and it looks like glucose is185. ldl cholesterol is 199. tsh is elevated, but the free t4 is normal. it is not clear on the medication sheet what he is taking at this point in time,he says he does not live alone, lives with family. physical examination:general: he was a little overweight with a rueda with some probably diminishedpersonal hygiene.lungs: diminished breath sounds, no wheezing.abdomen: soft abdomen.extremities: adequate femoral pulses. assessment: recent diabetic ketoacidosis, diabetes. the patient with strokeand presumed mri imaging suggestive of recurrent carotid stenosis. patient name: kaylee lezama plan and management: we will continue optimizing medical management. of coursewill have to institute statin therapy, diabetic therapy and i will put in aconsult for dr. lerma regarding the possibility of repeat surgery for thecarotid. may need some kind of placement at some point in time, rehab later onif needed. will need some physical therapy of course. dictated by: nadira barone jr, md wt: con:fidel/tulio/ntsdd: 02/03/2022 18:36:05dt: 02/03/2022 19:20:29conf#: [id number]/did#: [id number] authenticated by nadira barone md on 02/19/2022 10:33:07 am electronically signed by nadira barone jr, md on 02/19/22 at 1033 patient name: kaylee lezama :20:00[facility] [id number] for patient [id number]:33:50 [facility] 2022-02-03 18:35:00 [id number] ImRWwQdTH83WEffvFngGX8nLNZIXJ5e5994-08-07Y07:35:0 0 [facility] ([facility])Clinical NoteREPORT#:[id number] REPORT STATUS: SignedDATE:02/03/22 TIME: 183 PATIENT: KAYLEE LEZAMA UNIT #: [id number]#: [id number] [facility] AGE: 61 SEX: M ATTEND: Nadira Barone Jr AUTHOR: Nadira Barone Jr, MD * ALL edits or amendments must be made on the electronic/computer document * Clinical NoteNote:[id number] dictated for today augu 4 DKAhx of carotid surgery verbal report multiple strokes mra carotid stenosi over 70% plan rx dm/ risk factors surgical consult pt neuro consult carotid surgery ? at 1837 RPT #:[id number] OF REPORTCLClinical [id number]:35:00Z.[id number] able for patient stmnRVOLSDJCOHHQTQ7787-85-40V24:37:40 HCAWU
--- NOTE | 2023-11-13 21:51 | RAD REPORT ---
EXAM DESCRIPTION: RAD - Chest Single View - 11/13/2023 9:43 pm CLINICAL HISTORY: CHEST PAIN COMPARISON: <Comparisons> FINDINGS: Lines: None. Lungs: No evidence of edema or pneumonia. Pleural: No significant pleural effusions or pneumothorax. Cardiac: The heart size is within normal limits. Mediastinum: Within normal limits. Bones: No acute fractures. Other: None IMPRESSION: No acute cardiopulmonary disease.
[2023-11-13] MEDS ORDERED: NA CHLORIDE 0.9% 1,000 ML ONE (21:56)
[2023-11-13] MEDS ORDERED: NOREPINEPHRINE BITARTRATE/D5W 4 MG/250 ML BAG IV ONE (21:56)
[2023-11-13] MEDS ORDERED: NA CHLORIDE 0.9% 100 ML ONE (21:56)
[2023-11-13] MEDS ORDERED: NA CHLORIDE 0.9% 500 ML ONE (21:56)
[2023-11-13] MEDS ORDERED: PIPERACIL/TAZO 3.375 GM VIAL IV ONE (21:56)
[2023-11-13] MEDS ORDERED: VANCOMYCIN 1 GM/VIAL ONE (21:56)
[2023-11-13] MEDS ORDERED: ONDANSETRON 4 MG/2 ML VIAL ONE (21:56)
[2023-11-13 22:08] LABS: Absolute Lymphocytes (CBC) 0.4 K/uL (0.7-4.9); Absolute Monocytes 1.7 K/uL (0.1-1.3); Absolute Neutrophil 27.3 K/uL (1.8-8.0); Basophils % 0.1 % (0-1.3); Eosinophils % 0.1 % (0-4.4); Hematocrit 27.4 % (39.6-49.0); Lymphocytes % 1.4 % (15.3-44.8); MCH 26.8 pg (27.0-35.0); MCHC 32.7 g/dL (32.0-36.0); MCV 81.9 fL (80-100); MPV 7.6 fL (7.6-11.3); Monocytes % 5.8 % (3.3-12.3); Neutrophils % 92.6 % (41.7-73.7); Platelets 381 thou/uL (152-406); RBC Red Blood Cell Count 3.34 M/uL (4.33-5.43); Red Cell Distribution Width 21.1 % (12.1-15.2)
[2023-11-13 22:19] LABS: SARS-CoV-2 Antigen CONTROL BLUE LINE VIS/BG OK; SARS-CoV-2 Antigen Rapid Res Negative (Negative)
[2023-11-13 22:31] LABS: Thyroid Stimulating Hormone 7.15 uIU/mL (0.358-3.740)
[2023-11-13] MEDS ORDERED: HYDROCORTISONE SUC 100 MG INJ ONE (22:35)
[2023-11-13 22:41] LABS: Albumin 2.7 g/dL (3.4-5.0); Albumin/Globulin Ratio 0.5 (1.1-1.8); Anion Gap 14.2 mEq/L (5.0-15.0); Bilirubin Total 0.6 mg/dL (0.2-1.0); Potassium 3.2 mEq/L (3.5-5.1); Protein, Total 7.7 g/dL (6.4-8.2); Troponin High Sensitivity 4.8 pg/mL (<58.9)
[2023-11-13 22:43] LABS: Specific Gravity 1.006 (1.005-1.030); Sqamous Epithelial None Seen /HPF (None Seen); Urine Bacteria 20-50 /HPF (<20); Urine Bilirubin NEGATIVE (Negative); Urine Blood 2+ (Negative); Urine Clarity Extremely Turbid (Clear); Urine Color Orange (Yellow); Urine Crystals Unidentified Many /HPF (None Seen); Urine Culture Reflex Order REFLEXED; Urine Glucose 2+ (Negative); Urine Ketones NEGATIVE (Negative); Urine Microscopic Reflex YN ORDER UMIC; Urine Nitrite NEGATIVE (Negative); Urine Protein 2+ (Negative); Urine RBC >50 /HPF (None Seen); Urine Urobilinogen Normal (Normal); Urine WBC >50 /HPF (<5); Urine WBC Clump Many /HPF (None Seen); Urine Yeast (Budding) Many /HPF (None Seen); Urine pH 5.5 (5.0-7.0)
[2023-11-13 22:49] LABS: PT Prothrombin Time 13.5 SECONDS (9.5-12.5); PTT, Activated Partial Thromb 29.9 SECONDS (24.3-36.9); Protime INR 1.23
--- NOTE | 2023-11-14 00:08 | EDPHYS ---
Physician Documentation [facility] Name: Thom Wright Age: 63 yrs Sex: Male : 1960 Arrival Date: 11/13/2023 Time: 21:10 Bed 3 Private MD: ED Physician Albert Alford HPI: 11/12 22:20 This 63 yrs old Male presents to ER via EMS with complaints of sp4 Nausea/Vomiting, Blood Pressure Problem. 22:20 EMS arrival . sp4 22:40 Patient medication list includes hydrocodone 7.5, NovoLog FlexPen, atorvastatin 40 mg sp4 daily, metoprolol 50 mg daily, additionally patient has clopidogrel 75 mg daily, cilostazol 100 mg daily, furosemide 40 mg daily, Bactrim DS twice a day for 10 days, . 23:58 This 63-year-old male just returned home from [facility] after hospitalization sp4 for GI bleed.. Patient at home developed generalized weakness and profuse vomiting and his sister has called EMS to bring him to the emergency room. Mass reported patient was hypotensive and had profuse vomiting. There was no sign of coffee-ground emesis or lower GI bleed. Patient himself on arrival is hypotensive he ill-appearing and not able to provide full history. . Historical: - Allergies: 21:22 NKDA; jj7 - PMHx: 21:22 COPD; CVA; diabetes mellitus; Hypertensive disorder; MA; Pancreatitis; peripheral jj7 vascular disease; stent; stroke ( deficit left side paralysis); - PSHx: 21:22 Carotid endarterectomy; Femoral bypass; jj7 - Immunization history:: Adult Immunizations up to date, Client reports receiving the 2nd dose of the Covid vaccine, Flu vaccine is up to date. - Infectious Disease History:: Denies. - Social history:: Smoking status: Patient reports the use of cigarette tobacco products, smokes two packs cigarettes per day. Patient/guardian denies using alcohol, street drugs. - Family history:: not pertinent. ROS: 23:58 Constitutional: Positive for generalized weakness, positive for vomiting, positive for sp4 hypertension 23:58 All other systems are negative, Exam: 23:58 Constitutional: This is a well developed, rapidly obese male, pale appearing, ill sp4 nontoxic-appearing, hypertensive on arrival. Patient has emesis on his person. Generalized weakness not able to provide full history secondary to weakness and moderate distress. Still hypoxemic on arrival Head/Face: Normocephalic, atraumatic. Eyes: Pupils equal round and reactive to light, extra-ocular motions intact. Lids and lashes normal. Conjunctiva and sclera are not injected. Cornea within normal limits. Periorbital areas with no swelling, redness, or edema. ENT: Nares patent. No nasal discharge, no septal abnormalities noted. Tympanic membranes are normal and external auditory canals are clear. Oropharynx with no redness, swelling, or masses, exudates, or evidence of obstruction, uvula midline. Dry mucous membranes Neck: Trachea midline, no thyromegaly or masses palpated, and no cervical lymphadenopathy. Supple, full range of motion without nuchal rigidity, or vertebral point tenderness. Chest/axilla: Normal chest wall appearance and motion. Nontender with no deformity. No lesions are appreciated. Cardiovascular: Regular rate and rhythm with a normal S1 and S2. No gallops, murmurs, or rubs. Normal PMI, no JVD. No pulse deficits. Respiratory: Lungs have equal breath sounds bilaterally, clear to auscultation and percussion. No rales, rhonchi or wheezes noted. No increased work of breathing, no retractions or nasal flaring. Abdomen/GI: Soft, but none tympanitic, diminished bowel sounds. Diffuse generalized tenderness, patient is incontinent of bowel, rectal exam reveals no blood or melena Back: No spinal tenderness. No costovertebral tenderness. Male : Normal genitalia with no discharge or lesions. Skin: Warm, dry with normal turgor. Normal color with no rashes, no lesions, and no evidence of cellulitis. MS/ Extremity: Pulses equal, no cyanosis. Neurovascular intact. Full, normal range of motion. Neuro: Awake and alert, GCS 14, oriented to self and others. Exam is limited secondary to generalized weakness, no new neurologic deficits reported Vital Signs: 21:10 BP 86 / 56; Pulse 76; rv 21:12 BP 121 / 110; Pulse 80; Resp 21; Temp 97; Pulse Ox 99% on Non-rebreather mask; Weight jj7 97.52 kg; Height 6 ft. 0 in. ; Pain 0/10; 21:30 BP 63 / 49; Pulse 74; rv 21:45 BP 74 / 42; Pulse 73; rv 22:05 BP 126 / 49; Pulse 60; rv 22:15 BP 108 / 97; Pulse 71; Resp 22; Pulse Ox 96% ; rv 22:30 BP 116 / 92; Pulse 74; Resp 24; Pulse Ox 94% ; FiO2 40 %; rv 23:00 BP 106 / 90; Pulse 73; Resp 19; Temp 96(Ca); Pulse Ox 94% ; rv 23:30 BP 108 / 43; Pulse 71; Resp 25; Pulse Ox 89% ; FiO2 40 %; rv 11/13 00:00 BP 113 / 48; Pulse 71; Resp 22; Pulse Ox 98% ; FiO2 60 %; rv 00:30 BP 135 / 51; Pulse 70; Resp 22; Pulse Ox 100% ; FiO2 50 %; rv 01:00 BP 126 / 55; Pulse 74; Resp 22; Pulse Ox 95% ; FiO2 50 %; rv 01:30 BP 124 / 51; Pulse 74; Resp 16; Pulse Ox 91% ; rv 02:04 Weight 106 kg; rv 03:00 BP 133 / 50; Pulse 80; Resp 16; Pulse Ox 93% on ETT vent; FiO2 50 %; rv 03:23 BP 137 / 53; Pulse 81; Resp 16; Temp 95.8; Pulse Ox 93% on ETT vent; FiO2 50 %; rv 11/12 21:12 Body Mass Index 29.16 (106.00 kg, 182.88 cm) [facility] 21:12 Pain Scale: Adult [facility] Víctor Coma Score: 11/12 22:30 Eye Response: spontaneous(4). Motor Response: obeys commands(6). Verbal Response: rv oriented(5). Total: 15. 23:58 Eye Response: spontaneous(4). Motor Response: obeys commands(6). Verbal Response: sp4 confused(4). Total: 14. 11/13 03:23 Eye Response: none(1). Modifying Factors: Intubated. Modifying Factors: Medicated. rv Motor Response: none(1). Verbal Response: none(1). Total: 3. Procedures: 11/12 22:21 Central Line: the site was prepped with in sterile fashion, Hibiclens , a triple lumen sp4 catheter was inserted, in the right internal jugular vein, in 1 attempts. placement was verified, by CXR, by blood return, Ultrasound guided central line , the site was dressed with 4X4s, Tegaderm, using sterile technique, the patient tolerated the procedure, well, Triple-lumen right IJ CVL placed with ultrasound guidance for hypotension and Levophed infusion. 11/13 01:39 Intubation: Ventilated with 100% NRB prior to procedure. Intubated Bern scope sp4 intubation using S4 with 8.0 mm ETT. was successful on first attempt. Ventilated with Ambu bag. ventilator. Tube secured with ETT pimentel at center of mouth measured 21 cm at teeth. Placement verified by CXR, CO2 detector with (+) color change, auscultating bilateral breath sounds, O2 saturation after procedure was 99 %. Patient tolerated well, That intubation assisted with Glyde scope . MDM: 11/12 21:19 Patient medically screened. sp4 23:43 ED course: After Central line . ED course: EXAMINATION: XR CHEST 1 VIEW INDICATION: sp4 Male, 63 years old, Right CVL placement IJ TECHNIQUE: 1 view COMPARISON(S): 05/30/2022; additional more recent comparison imaging is not available at the time of interpretation FINDINGS: SUPPORT DEVICES: Right neck base approach catheter tip overlying the cranial SVC. LUNGS/PLEURA: Perihilar interstitial prominence. No consolidation, pleural effusion or pneumothorax. HEART/MEDIASTINUM: Enlarged heart size with central pulmonary vascular prominence. OTHER: No acute osseous findings. Based surgical clips. IMPRESSION: 1. Right IJ central catheter projects in adequate positioning. 2. Interstitial markings suggestive of cardiogenic edema or pneumonitis/bronchitis. No consolidation. . 23:48 ED course: MUSCULOSKELETAL: No acute osseous abnormality. Nonacute left inferior rib sp4 fractures, and healed fracture deformity of the left humeral head suspected. Degenerative changes of the shoulders, spine, and pelvis. IMPRESSION: 1. CT appearance of large and small bowel loops can be seen in the setting of enteritis/enterocolitis versus ileus or partial obstruction. No identified transition point. Consider enteric decompression. 2. Fluid throughout the esophagus likely due to retained enteric contents discussed above. 3. Airspace disease within the right greater than left lungs consistent with multifocal pneumonia, possibly atypical organism. 4. Appropriately positioned right IJ and Gunderson catheters. 5. Additional chronic and incidental findings above. Electronically signed by: Jayesh Saini MD 11/13/2023 11:34 PM CDT . 11/13 00:06 Data reviewed: vital signs, nurses notes, EMS record, old medical records, lab test 4 result(s), EKG, radiologic studies, CT scan, plain films. ED course: Initial Chest x ray - EXAM DESCRIPTION: RAD - Chest Single View - 11/13/2023 9:43 pm CLINICAL HISTORY: CHEST PAIN COMPARISON: FINDINGS: Lines: None. Lungs: No evidence of edema or pneumonia. Pleural: No significant pleural effusions or pneumothorax. Cardiac: The heart size is within normal limits. Mediastinum: Within normal limits. Bones: No acute fractures. Other: None IMPRESSION: No acute cardiopulmonary disease. Signed By: Barrington Bell MD. 04:40 Differential diagnosis: Nonspecific abd pain, gastritis, cholecystitis, pancreatitis, sp4 appendicitis, diverticulitis, viral gastroenteritis, gastroenteritis. ED course: EXAM: XR Chest, 1 View After intubation TECHNIQUE: Frontal view of the chest. COMPARISON: November 13, 2023 FINDINGS: Lungs: Scattered interstitial and airspace opacities bilaterally. Pleural space: Unremarkable. No pneumothorax. Heart: Unremarkable. Mediastinum: Unremarkable. Normal mediastinal contour. Bones/joints: No acute findings. Tubes, lines and devices: Endotracheal tube with tip 3.6 cm above the phillip. Right IJ central venous catheter with tip in the SVC. Nasogastric tube coursing below the diaphragm and overlying the left upper quadrant. IMPRESSION: 1. Endotracheal tube with tip 3.6 cm above the phillip. 2. Right IJ central venous catheter with tip in the SVC. 3. Scattered interstitial and airspace opacities bilaterally, increased compared to prior. 4. Nasogastric tube coursing below the diaphragm and overlying the left upper quadrant.. 11/12 21:14 Order name: Blood Culture Adult (2) [facility] 11/12 21:14 Order name: CBC with Diff; Complete Time: 00:43 [facility] 11/12 21:14 Order name: CMP; Complete Time: 23:44 [facility] 11/12 21:14 Order name: Lactate w/ 2H reflex if indic.; Complete Time: 22:35 [facility] 11/12 21:14 Order name: Protime (+inr); Complete Time: 23:44 [facility] 11/12 21:14 Order name: Ptt, Activated; Complete Time: 23:44 [facility] 11/12 21:14 Order name: Urinalysis w/ reflexes; Complete Time: 23:44 4 11/12 21:14 Order name: ABG; Complete Time: 00:43 [facility] 11/12 21:15 Order name: Type And Screen; Complete Time: 00:43 [facility] 11/12 21:16 Order name: Troponin High Sensitivity; Complete Time: 23:44 4 11/12 21:16 Order name: BNP; Complete Time: 23:44 [facility] 11/12 21:16 Order name: CRP; Complete Time: 23:44 [facility] 11/12 21:18 Order name: TSH; Complete Time: 22:35 sp 11/12 21:18 Order name: T4 Free; Complete Time: 22:35 [facility] 11/12 21:18 Order name: SARS RAPID; Complete Time: 22:20 [facility] 11/12 22:18 Order name: Manual Differential; Complete Time: 00:43 [facility] 11/12 22:46 Order name: Urine Culture [facility] 11/13 01:19 Order name: Lactate Sepsis 2 HR Follow-up; Complete Time: 01:27 [facility] 11/12 21:14 Order name: Chest Single View XRAY; Complete Time: 22:20 [facility] 11/12 22:20 Order name: Chest Single View XRAY [facility] 11/12 23:01 Order name: Chest Abd Pelvis Wo Con [facility] 11/13 00:05 Order name: Abdomen 1 View (KUB) XRAY [facility] 11/13 01:47 Order name: Chest Single View XRAY 11/12 21:14 Order name: Accucheck; Complete Time: 21:52 [facility] 11/12 21:14 Order name: Cardiac monitoring; Complete Time: 21:52 [facility] 11/12 21:14 Order name: Cath; Complete Time: 21:52 [facility] 11/12 21:14 Order name: EKG - Nurse/Tech; Complete Time: 21:45 [facility] 11/12 21:14 Order name: IV Saline Lock - Large Bore; Complete Time: 21:45 [facility] 11/12 21:14 Order name: Labs collected and sent; Complete Time: 21:52 [facility] 11/12 21:14 Order name: O2 Per Protocol; Complete Time: 21:52 [facility] 11/12 21:14 Order name: O2 Sat Monitoring; Complete Time: 21:52 [facility] 11/12 21:14 Order name: Vital Signs; Complete Time: 21:52 sp4 11/12 23:49 Order name: NG Tube; Complete Time: 23:51 sp4 11/13 00:47 Order name: Intubation Setup; Complete Time: 01:03 sp4 Administered Medications: 11/12 22:00 Drug: Piperacillin-Tazobactam IVPB 3.375 grams IVPB once over 60 mins; (mix in NS 100 rv mL) Route: IVPB; Infused Over: 30 mins; Site: right forearm; 22:40 Follow up: Response: No adverse reaction; Marked relief of symptoms; IV Status: rv Completed infusion; IV Intake: 100ml 22:00 Drug: Norepinephrine IV 15 mcg/min IV at calculated rate See Administration rv Instructions; (Standard concentration 4 mg / 250 mL D5W); Recommended max rate 3 mcg/kg/min; Titrate 0.05 mcg/kg/min as often as every 5 minutes to achieve goal (see titration policy); Goal parameter MAP greater than 65 mmHg. Route: IV; Rate: calculated rate; Site: left upper arm; 11/13 00:28 Follow up: IV Status: Infusion continued upon transfer rv 11/12 22:16 Drug: NS 0.9% IV 1000 ml IV at 125 ml/hr continuous Route: IV; Rate: 125 ml/hr; Site: rv right forearm; 11/13 00:28 Follow up: IV Status: Infusion continued upon transfer rv 11/12 22:16 Drug: Ondansetron IVP 4 mg IVP once; over 2 minutes Route: IVP; Site: right forearm; rv 11/13 00:27 Follow up: Response: No adverse reaction; Marked relief of symptoms rv 11/12 22:31 Drug: Solu-CORTEF IVP 100 mg IVP once Route: IVP; Site: right forearm; rv 11/13 00:28 Follow up: Response: No adverse reaction; Marked relief of symptoms rv 11/12 22:40 Drug: vancoMYCIN IVPB 2 grams IVPB at calculated rate once Route: IVPB; Rate: rv calculated rate; Site: left upper arm; 11/13 01:44 Follow up: Response: No adverse reaction; IV Status: Completed infusion; IV Intake: rv 500ml 00:27 Drug: Albumin IVPB 25 grams 100 ml IVPB once; (Note: Albumin 25% concentration) Volume: rv 100 ml; Route: IVPB; Site: right jugular; 44 Follow up: IV Status: Completed infusion; IV Intake: 100ml rv 00:27 Drug: NS 0.9% IV 1000 ml IV at 1 bolus Per protocol; 1000 mL bolus Route: IV; Rate: 1 rv bolus; Site: right jugular; 44 Follow up: IV Status: Completed infusion; IV Intake: 1000ml rv 01:35 Drug: Etomidate IVP 40 mg IVP once Route: IVP; Site: left upper arm; rv 01:48 Follow up: Response: RASS: Deep sedation (-4) rv 01:35 Drug: Rocuronium IVP 100 mg IVP once Route: IVP; Site: left upper arm; rv :48 Follow up: Response: No adverse reaction rv 01:43 Drug: Propofol IV 5 mcg/kg/min IV at calculated rate See Administration Instructions; rv Standard concentration 1000 mg / 100 mL; Recommended max rate 50 mcg/kg/min; Titrate 2 mcg/kg/min every 5 minutes to achieve goal (see titration policy); Goal parameter RASS score 0 to -2 Route: IV; Rate: calculated rate; Site: left upper arm; :43 Follow up: IV Status: Infusion continued upon transfer rv 02:22 Not Given (not appropriate at this timev): morphineor iv 4 mg IVP once over 4 mins rv 02:22 Not Given (not appropriate at this time): coguneixfdiley12 mg IVP once; over 1 to 2 rv minutes 03:22 Drug: Piperacillin-Tazobactam IVPB 3.375 grams IVPB once over 60 mins; (mix in NS 100 rv mL) Route: IVPB; Infused Over: 60 mins; Site: right jugular; 03:22 Follow up: IV Status: Infusion continued upon transfer rv Disposition Summary: 11/14/23 00:08 Transfer Ordered Notes: Transfer Location: [facility] sp4 Reason: Higher level of care sp4 Condition: Stable sp4 Problem: new sp4 Symptoms: have improved sp4 Accepting Physician: Yuki Burciaga's attending MD(11/14/23 03:50) rv Diagnosis - Pyelonephritis acute sp4 - Severe sepsis with septic shock sp4 - Small bowel obstruction, acute on chronic kidney failure sp4 Forms: - Medication Reconciliation Form sp4 - SBAR form sp4 Critical care time excluding procedures: 00:08 Critical care time: Bedside Care: 46 minutes, Consultation: 12 minutes, Family sp4 Intervention: 12 minutes. Total time: 70 minutes Signatures: Dispatcher [employer] EDRobert Clarke, RN RN Toribio Aguilar RN RN jj7 Albert Alford MD MD sp4 Corrections: (The following items were deleted from the chart) 11/12 21:15 21:15 BLOOD CULTURE*+BA.LAB.BRZ ordered. EDMS EDMS 21:15 21:15 CBC+H.LAB.BRZ ordered. EDMS EDMS 21:15 21:15 COMPREHENSIVE METABOLIC PANEL+C.LAB.BRZ ordered. EDMS EDMS 21:15 21:15 LACTATE+C.LAB.BRZ ordered. EDMS EDMS 21:15 21:15 PROTIME (+INR)+COAG.LAB.BRZ ordered. EDMS EDMS 21:15 21:15 PTT, ACTIVATED+COAG.LAB.BRZ ordered. EDMS EDMS 21:15 21:15 Urinalysis+U.LAB.BRZ ordered. EDMS EDMS 21:15 21:15 Chest Single View+RAD.RAD.BRZ ordered. EDMS EDMS 21:15 21:15 Arterial Blood Gas+RC.LAB.BRZ ordered. EDMS EDMS 21:15 21:15 TYPE AND SCREEN+BB.LAB.BRZ ordered. EDMS EDMS 21:19 21:19 THYROID STIMULAT HORMONE+C.LAB.BRZ ordered. EDMS EDMS 21:19 21:19 T4 FREE+C.LAB.BRZ ordered. EDMS EDMS 21:19 21:19 SARS-COV-2 Antigen Rapid+I.LAB.BRZ ordered. EDMS EDMS 22:21 22:21 Chest Single View+RAD.RAD.BRZ ordered. EDMS EDMS 23:01 21:16 Chest Abdomen Pelvis W Con+CT.RAD.BRZ ordered. EDMS EDMS 11/13 03:50 00:08 Yuki Burciaga'renetta attending MD [email or web address] rv
--- NOTE | 2023-11-14 00:08 | ER ---
Nurse's Notes [facility] Name: Thom Wright Age: 63 yrs Sex: Male : 1960 Arrival Date: 11/13/2023 Time: 21:10 Bed 3 Private MD: Diagnosis: Pyelonephritis acute;Severe sepsis with septic shock;Small bowel obstruction, acute on chronic kidney failure Presentation: 11/12 21:12 Chief complaint: EMS states: VOMITING STARTED EARLIER TODAY 3 EPISODES. LOW BP WHEN EMS jj7 ARRIVED. Coronavirus screen: At this time, the client does not indicate any symptoms associated with coronavirus-19. Ebola Screen: No symptoms or risks identified at this time. Initial Sepsis Screen: Does the patient meet any 2 criteria? No. Patient's initial sepsis screen is negative. Does the patient have a suspected source of infection? No. Patient's initial sepsis screen is negative. Risk Assessment: Do you want to hurt yourself or someone else? Patient reports no desire to harm self or others. Onset of symptoms was November 13, 2023. Care prior to arrival: Medication(s) given: Normal saline infusion, 250 IV initiated. IO 45G TO RIGHT FEMUR. 21:12 Method Of Arrival: EMS: [facility] 21:12 Acuity: SONIA 3 jj7 Triage Assessment: 21:12 General: Appears in no apparent distress. uncomfortable, unkempt, Behavior is calm, jj7 cooperative, appropriate for age. Pain: Denies pain. GI: Reports nausea, vomiting. Historical: - Allergies: 21:22 NKDA; jj7 - PMHx: 21:22 COPD; CVA; diabetes mellitus; Hypertensive disorder; TX; Pancreatitis; peripheral jj7 vascular disease; stent; stroke ( deficit left side paralysis); - PSHx: 21:22 Carotid endarterectomy; Femoral bypass; jj7 - Immunization history:: Adult Immunizations up to date, Client reports receiving the 2nd dose of the Covid vaccine, Flu vaccine is up to date. - Infectious Disease History:: Denies. - Social history:: Smoking status: Patient reports the use of cigarette tobacco products, smokes two packs cigarettes per day. Patient/guardian denies using alcohol, street drugs. - Family history:: not pertinent. Screenin:12 Abuse screen: Denies threats or abuse. Nutritional screening: No deficits noted. jj7 Tuberculosis screening: No symptoms or risk factors identified. 23:35 [facility] ED Fall Risk Assessment (Adult) History of falling in the last 3 months, rv including since admission No falls in past 3 months (0 pts) Score/Fall Risk Level 0 - 2 = Low Risk Oriented to surroundings, Maintained a safe environment, Educated pt \T\ family on fall prevention, incl call for assistance when getting out of bed, Assessed \T\ reinforced patient's understanding of fall precautions. Assessment: 21:12 Reassessment: SEE TRIAGE ASSESSMENT. GI: Abdomen is round. jj7 22:00 Reassessment: No changes from previously documented assessment. Patient and/or family rv updated on plan of care and expected duration. Pain level reassessed. 23:00 Reassessment: No changes from previously documented assessment. Patient and/or family rv updated on plan of care and expected duration. Pain level reassessed. Neuro: Level of Consciousness is awake, alert, lethargic, Oriented to person, place, time, situation. Neuro: Level of Consciousness is awake, alert, lethargic, Oriented to person, place, time, situation. 11/13 00:00 Reassessment: No changes from previously documented assessment. Patient and/or family rv updated on plan of care and expected duration. Pain level reassessed. Neuro: Level of Consciousness is awake, alert, lethargic, Oriented to person, place, time, situation. 01:00 Reassessment: No changes from previously documented assessment. Patient and/or family rv updated on plan of care and expected duration. Pain level reassessed. 01:00 Neuro: Level of Consciousness is awake, alert, lethargic, Oriented to person, place, rv time, situation. Vital Signs: 11/12 21:10 BP 86 / 56; Pulse 76; rv 21:12 BP 121 / 110; Pulse 80; Resp 21; Temp 97; Pulse Ox 99% on Non-rebreather mask; Weight jjMaddison 97.52 kg; Height 6 ft. 0 in. ; Pain 0/10; 21:30 BP 63 / 49; Pulse 74; rv 21:45 BP 74 / 42; Pulse 73; rv 22:05 BP 126 / 49; Pulse 60; rv 22:15 BP 108 / 97; Pulse 71; Resp 22; Pulse Ox 96% ; rv 22:30 BP 116 / 92; Pulse 74; Resp 24; Pulse Ox 94% ; FiO2 40 %; rv 23:00 BP 106 / 90; Pulse 73; Resp 19; Temp 96(Ca); Pulse Ox 94% ; rv 23:30 BP 108 / 43; Pulse 71; Resp 25; Pulse Ox 89% ; FiO2 40 %; rv 11/13 00:00 BP 113 / 48; Pulse 71; Resp 22; Pulse Ox 98% ; FiO2 60 %; rv 00:30 BP 135 / 51; Pulse 70; Resp 22; Pulse Ox 100% ; FiO2 50 %; rv 01:00 BP 126 / 55; Pulse 74; Resp 22; Pulse Ox 95% ; FiO2 50 %; rv 01:30 BP 124 / 51; Pulse 74; Resp 16; Pulse Ox 91% ; rv 02:04 Weight 106 kg; rv 03:00 BP 133 / 50; Pulse 80; Resp 16; Pulse Ox 93% on ETT vent; FiO2 50 %; rv 03:23 BP 137 / 53; Pulse 81; Resp 16; Temp 95.8; Pulse Ox 93% on ETT vent; FiO2 50 %; rv 11/12 21:12 Body Mass Index 29.16 (106.00 kg, 182.88 cm) jj7 21:12 Pain Scale: Adult j7 [place] Coma Score: 11/12 22:30 Eye Response: spontaneous(4). Motor Response: obeys commands(6). Verbal Response: rv oriented(5). Total: 15. 23:58 Eye Response: spontaneous(4). Motor Response: obeys commands(6). Verbal Response: sp4 confused(4). Total: 14. 11/13 03:23 Eye Response: none(1). Modifying Factors: Intubated. Modifying Factors: Medicated. rv Motor Response: none(1). Verbal Response: none(1). Total: 3. ED Course: 11/12 21:12 Patient arrived in ED. ty 21:12 Arm band placed on right wrist. Patient placed in an exam room, on a stretcher, on jj7 oxygen, on barrel endshake adjuster, on pulse oximetry. EKG completed in triage. Results shown to MD. 21:12 Patient has correct armband on for positive identification. Bed in low position. Call jj7 light in reach. Side rails up X 1. Client placed on continuous cardiac and pulse oximetry monitoring. NIBP monitoring applied. energy efficient site manager on. Pulse ox on. Warm blanket given. 21:14 Albert Alford MD is Attending Physician. sp4 21:22 Triage completed. jj7 21:30 Inserted saline lock: 20 gauge in right forearm, using aseptic technique. Blood rv collected. 21:44 Chest Single View XRAY In Process Unspecified. EDMS 21:44 Robert Ramos, RN is Primary Nurse. rv 21:45 First set of blood cultures drawn by me. Inserted [id number] midline left upper arm. rv 21:45 Second set of blood cultures drawn by me. Initial lab(s) drawn, by me, sent to lab. rv 22:14 Assisted provider with central line placement. Set up central line tray. Triple lumen rv line placed in right internal jugular. Line placed by Albert Alford MD Placement verified by CXR, blood return, Dressed with Tegaderm, Patient tolerated well. 22:41 Gunderson cath inserted, using sterile technique, 16 Fr., by me, balloon inflated, to rv gravity drainage, urine specimen collected. other sent to lab returned thick, cloudy.. Patient tolerated well. 22:43 Chest Single View XRAY In Process Unspecified. EDMS 23:07 Chest Abd Pelvis Wo Con In Process Unspecified. EDMS 05 00:07 [facility] called for transfer, spoke with lance. ty 00:30 NGT: inserted 12 Fr. via right nare. verified placement of air over stomach, verified rv return of gastric contents, Placement verified by X-ray, to intermittent suction. Returned gastric contents. Patient tolerated well. 01:01 Abdomen 1 View (KUB) XRAY In Process Unspecified. EDMS 01:45 Assisted provider with intubation using 7.5 mm ETT via oral route. ET tube secured at rv 21cm at the teeth. Set up intubation tray. Intubated by Albert Alford MD Placement verified by CO2 detector w/ + color change, auscultating bilateral breath sounds, CXR, Patient tolerated well. 02:31 contacted for acceptance. ty 02:49 Chest Single View XRAY In Process Unspecified. EDMS 02:[facility] ty 03:25 Patient transferred, IV remains in place. rv Administered Medications: 11/12 22:00 Drug: Piperacillin-Tazobactam IVPB 3.375 grams IVPB once over 60 mins; (mix in NS 100 rv mL) Route: IVPB; Infused Over: 30 mins; Site: right forearm; 22:40 Follow up: Response: No adverse reaction; Marked relief of symptoms; IV Status: rv Completed infusion; IV Intake: 100ml 22:00 Drug: Norepinephrine IV 15 mcg/min IV at calculated rate See Administration rv Instructions; (Standard concentration 4 mg / 250 mL D5W); Recommended max rate 3 mcg/kg/min; Titrate 0.05 mcg/kg/min as often as every 5 minutes to achieve goal (see titration policy); Goal parameter MAP greater than 65 mmHg. Route: IV; Rate: calculated rate; Site: left upper arm; 11/13 00:28 Follow up: IV Status: Infusion continued upon transfer rv 11/12 22:16 Drug: NS 0.9% IV 1000 ml IV at 125 ml/hr continuous Route: IV; Rate: 125 ml/hr; Site: rv right forearm; 11/13 00:28 Follow up: IV Status: Infusion continued upon transfer rv 11/12 22:16 Drug: Ondansetron IVP 4 mg IVP once; over 2 minutes Route: IVP; Site: right forearm; rv 11/13 00:27 Follow up: Response: No adverse reaction; Marked relief of symptoms rv 11/12 22:31 Drug: Solu-CORTEF IVP 100 mg IVP once Route: IVP; Site: right forearm; rv 11/13 00:28 Follow up: Response: No adverse reaction; Marked relief of symptoms rv 11/12 22:40 Drug: vancoMYCIN IVPB 2 grams IVPB at calculated rate once Route: IVPB; Rate: rv calculated rate; Site: left upper arm; 11/13 01:44 Follow up: Response: No adverse reaction; IV Status: Completed infusion; IV Intake: rv 500ml 00:27 Drug: Albumin IVPB 25 grams 100 ml IVPB once; (Note: Albumin 25% concentration) Volume: rv 100 ml; Route: IVPB; Site: right jugular; 01:44 Follow up: IV Status: Completed infusion; IV Intake: 100ml rv 00:27 Drug: NS 0.9% IV 1000 ml IV at 1 bolus Per protocol; 1000 mL bolus Route: IV; Rate: 1 rv bolus; Site: right jugular; :44 Follow up: IV Status: Completed infusion; IV Intake: 1000ml rv 01:35 Drug: Etomidate IVP 40 mg IVP once Route: IVP; Site: left upper arm; rv 01:48 Follow up: Response: RASS: Deep sedation (-4) rv 01:35 Drug: Rocuronium IVP 100 mg IVP once Route: IVP; Site: left upper arm; rv 01:48 Follow up: Response: No adverse reaction rv 01:43 Drug: Propofol IV 5 mcg/kg/min IV at calculated rate See Administration Instructions; rv Standard concentration 1000 mg / 100 mL; Recommended max rate 50 mcg/kg/min; Titrate 2 mcg/kg/min every 5 minutes to achieve goal (see titration policy); Goal parameter RASS score 0 to -2 Route: IV; Rate: calculated rate; Site: left upper arm; :43 Follow up: IV Status: Infusion continued upon transfer rv 02:22 Not Given (not appropriate at this timev): morphineor iv 4 mg IVP once over 4 mins rv 02:22 Not Given (not appropriate at this time): [id number] mg IVP once; over 1 to 2 rv minutes 03:22 Drug: Piperacillin-Tazobactam IVPB 3.375 grams IVPB once over 60 mins; (mix in NS 100 rv mL) Route: IVPB; Infused Over: 60 mins; Site: right jugular; 03:22 Follow up: IV Status: Infusion continued upon transfer rv Medication: 11/12 21:12 VIS not applicable for this client. jj7 Intake: 22:40 IV: 100ml; Total: 100ml. rv 11/13 01:44 IV: 1000ml; Total: 1100ml. rv 01:44 IV: 100ml; Total: 1200ml. rv 01:44 IV: 500ml; Total: 1700ml. rv Outcome: 00:08 ER care complete, transfer ordered by MD. renee 03:24 Transferred by ground EMS to [facility], Note: report given to olivia Mascorro RN 03:24 Condition: stable 03:24 Instructed on the need for transfer, 03:50 Patient left the ED. rv Signatures: Dispatcher [employer] EDSD Robert Ramos RN RN Toribio Aguilar RN RN jj7 Albert Alford MD MD sp4 [employer]: (The following items were deleted from the chart) 11/12 22:15 22:00 Piperacillin-Tazobactam IVPB 3.375 grams IVPB in left upper arm over 60 mins rv rv
[2023-11-14 00:18] LABS: Arterial Blood Carboxyhemoglob 6.1 % (0-1.5); Blood Gas Oxyhemoglobin 75.4 % (94-97); Blood Gas THB 9.6 g/dl (12-18)
[2023-11-14 00:20] LABS: Band Neutrophils 56 % (0-1); Differential Total Cells Count 100; Lymphocytes 1 % (15-42); Monocytes 4 % (0-10); Segmented Neutrophils 39 % (40-80)
[2023-11-14 00:21] LABS: Anisocytosis 1+; Blood Morphology Comment NOTED (NOT SEEN); Platelet Estimate ADEQ
[2023-11-14] MEDS ORDERED: NA CHLORIDE 0.9% 1,000 ML ONE (00:24)
[2023-11-14] MEDS ORDERED: ALBUMIN HUMAN 25% 100 ML IV ONE (00:24)
[2023-11-14] MEDS ORDERED: propofoL 1,000 MG/100 ML VIAL IV ONE (00:50)
[2023-11-14] MEDS ORDERED: ETOMIDATE 20 MG/10 ML VIAL IV ONE (00:51)
[2023-11-14] MEDS ORDERED: ROCURONIUM 50 MG/5 ML VIAL IV ONE (00:51)
[2023-11-14] MEDS ORDERED: NOREPINEPHRINE 4 MG/4 ML VIAL ONE (02:15)
[2023-11-14] MEDS ORDERED: NOREPINEPHRINE BITARTRATE/D5W 4 MG/250 ML BAG IV ONE (02:16)
[2023-11-14] MEDS ORDERED: NA CHLORIDE 0.9% 100 ML ONE (02:25)
[2023-11-14] MEDS ORDERED: PIPERACIL/TAZO 3.375 GM VIAL IV ONE (02:26)
[2023-11-14 04:13] VITALS: O2SAT 93
[2023-11-14 04:34] VITALS: BP 137/53; TEMP 95.8
--- NOTE | 2023-11-14 10:59 | EKG ---
Test Date: 2023-11-13 Test Time: 21:18:39 Dragger: RRC MEASUREMENT RESULTS: Intervals: Rate: 80 GA: 130 QRSD: 86 QT: 372 QTc: 429 [place]: P: 66 GA: 130 QRS: -2 T: 18 INTERPRETIVE STATEMENTS: Normal sinus rhythm Inferior infarct, age undetermined Abnormal ECG Compared to ECG 10/10/2023 05:19:16 Sinus arrhythmia no longer present Myocardial infarct finding still present Electronically Signed On 11-14-23 10:58:44 CDT by Cameron Wilburn
--- NOTE | 2023-11-14 13:00 | RAD REPORT ---
EXAM DESCRIPTION: RAD - Chest Single View - 11/13/2023 10:41 pm CLINICAL HISTORY: Male, 63 years old, Right CVL placement IJ TECHNIQUE: 1 view COMPARISON: 05/30/2022; additional more recent comparison imaging is not available at the time of in terpretation FINDINGS: SUPPORT DEVICES: Right neck base approach catheter tip overlying the cranial SVC. LUNGS/PLEURA: Perihilar interstitial prominence. No consolidation, pleural effusion or pneumothorax. HEART/MEDIASTINUM: Enlarged heart size with central pulmonary vascular prominence. OTHER: No acute osseous findings. Based surgical clips. IMPRESSION: 1. Right IJ central catheter projects in adequate positioning. 2. Interstitial markings suggestive of cardiogenic edema or pneumonitis/bronchitis. No consolidatio n. Electronically signed by: Jayesh Saini MD 11/13/2023 11:10 PM CDT . Due to temporary technical issues with the PACS/Fluency reporting system, reports are being signed by the in house radiologist without review as a courtesy to ensure prompt reporting. The interpreting r adiologist is fully responsible for the content of the report.
--- NOTE | 2023-11-14 13:01 | RAD REPORT ---
EXAM DESCRIPTION: RAD - Chest Single View - 11/14/2023 2:48 am CLINICAL HISTORY: The patient is 63 years old and is Male; POST ETT TECHNIQUE: Frontal view of the chest. COMPARISON: November 13, 2023 FINDINGS: Lungs: Scattered interstitial and airspace opacities bilaterally. Pleural space: Unremarkable. No pneumothorax. Heart: Unremarkable. Mediastinum: Unremarkable. Normal mediastinal contour. Bones/joints: No acute findings. Tubes, lines and devices: Endotracheal tube with tip 3.6 cm above the phillip. Right IJ central venous catheter with tip in the SVC. Nasogastric tube coursing below the diaphragm and overlying the left upper quadrant. IMPRESSION: 1. Endotracheal tube with tip 3.6 cm above the phillip. 2. Right IJ central venous catheter with tip in the SVC. 3. Scattered interstitial and airspace opacities bilaterally, increased compared to prior. 4. Nasogastric tube coursing below the diaphragm and overlying the left upper quadrant. Electronically signed by: Tremayne Arthur MD 11/14/2023 03:14 AM CDT Due to temporary technical issues with the PACS/Fluency reporting system, reports are being signed by the in house radiologist without review as a courtesy to ensure prompt reporting. The interpreting r adiologist is fully responsible for the content of the report.
--- NOTE | 2023-11-14 13:09 | RAD REPORT ---
EXAM DESCRIPTION: CT - Chest Abd Pelvis Wo Con - 11/14/2023 6:47 am CLINICAL HISTORY: Male, 63 years old, ABDOMINAL DISTENTION COMPARISON: CT abdomen/pelvis 10/06/2023 TECHNIQUE: CT acquisition of the chest, abdomen and pelvis without contrast. Coronal and sagittal re formatted images provided. This exam was performed according to departmental dose-optimization progra m which includes automated exposure control, adjustment of the mA and/or kV according to patient size , and/or use of iterative reconstruction technique. FINDINGS: Lack of intravenous contrast limits evaluation of the abdominal and pelvic viscera and vas cular structures. Beam hardening from arms down positioning results in decreased [id number] and further limits interpretation. SUPPORTIVE DEVICES: Right IJ catheter within the cranial SVC. Gunderson catheter in place. LOWER NECK: No acute findings. Surgical clips along the carotid arteries. CHEST: Mediastinum/carie: Aortic atherosclerosis without aneurysm. The pulmonary vasculature is unremarkable. No evident thoracic adenopathy. The majority of the nondilated esophagus is fluid-filled. Heart: Normal size. No pericardial thickening or effusion. Severe coronary artery calcifications. Lungs: Extensive nodular to patchy airspace disease throughout the right lung and within the left low er lobe. Central airways are clear. Pleural Space: No pleural effusion or pneumothorax. ABDOMEN AND PELVIS: Liver: Unremarkable. Gallbladder and bile ducts: Unremarkable. Pancreas: Unremarkable. Spleen: Small parenchymal calcification. Adrenal glands: Unremarkable. Kidneys and ureters: No evidence of stone or obstruction. Extensive renal artery calcifications. Mild ly prominent caliber of the right distal ureter. Bladder: Collapsed around a Gunderson catheter. Reproductive organs: Unremarkable as visualized. GI tract: The stomach, duodenum, and a majority of small bowel loops are fluid distended to dilated w ith multiple short air-fluid levels. A gradual transition to the decompressed terminal ileum is prese nt without identified transition point. The appendix is normal. The large bowel from the cecum to the splenic flexure is similarly gas and fluid distended with air-fluid levels. The more distal large kimberlee wel is unremarkable with a small stool burden. Lymph nodes: No obvious adenopathy. Peritoneum: No evidence of ascites, fluid collection, or free air. Vessels: Atherosclerosis without evidence of aneurysm. Vascular postsurgical change of the left groin including common femoral artery stent. MUSCULOSKELETAL: No acute osseous abnormality. Nonacute left inferior rib fractures, and healed fract ure deformity of the left humeral head suspected. Degenerative changes of the shoulders, spine, and p heidy. IMPRESSION: 1. CT appearance of large and small bowel loops can be seen in the setting of enteriti s/enterocolitis versus ileus or partial obstruction. No identified transition point. Consider enteric decompression. 2. Fluid throughout the esophagus likely due to retained enteric contents discussed above. 3. Airspace disease within the right greater than left lungs consistent with multifocal pneumonia, possibly atypical organism. 4. Appropriately positioned right IJ and Gunderson catheters. 5. Additional chronic and incidental findings above. Electronically signed by: Jayesh Saini MD 11/13/2023 11:34 PM CDT Due to temporary technical issues with the PACS/Fluency reporting system, reports are being signed by the in house radiologist without review as a courtesy to ensure prompt reporting. The interpreting r adiologist is fully responsible for the content of the report.
--- NOTE | 2023-11-14 13:11 | RAD REPORT ---
EXAM DESCRIPTION: RAD - Abdomen 1 View (KUB) - 11/14/2023 12:59 am CLINICAL HISTORY: The patient is 63 years old and is Male; NG placement TECHNIQUE: Frontal supine view of the abdomen/pelvis. COMPARISON: CT November 13, 2023. FINDINGS: LIMITATIONS: Examination is limited by motion. GASTROINTESTINAL TRACT: Gaseous distention of the stomach is present. Dilated air-filled small kimberlee wel loops are noted. Air-filled right colon is present. BONES/JOINTS: Unremarkable. No acute fracture. TUBES, LINES AND DEVICES: Questionable tip of an enteric tube is noted within the mid esophagus. IMPRESSION: Questionable tip of an enteric tube is noted within the mid esophagus. However, this i s not adequately seen secondary to motion. Recommend repeat imaging. Electronically signed by: Natasha Yuan MD 11/14/2023 01:29 AM CDT Due to temporary technical issues with the PACS/Fluency reporting system, reports are being signed by the in house radiologist without review as a courtesy to ensure prompt reporting. The interpreting r adiologist is fully responsible for the content of the report.
== END 2023-11-14 03:50 | disposition short-term general hospital (02) ==
LOC: ER 21:10
PROC: 05HM33Z Insertion of Infusion Device into Right Internal Jugular Vein, Percutaneous Approach (ICD-10-PCS; principal; 2023-11-14)
DX: N10 Acute pyelonephritis (principal); R65.21 Severe sepsis with septic shock; K72.10 Chronic hepatic failure without coma; N17.9 Acute kidney failure, unspecified; K72.00 Acute and subacute hepatic failure without coma; K56.609 Unspecified intestinal obstruction, unspecified as to partial versus complete obstruction; I10 Essential (primary) hypertension; J44.9 Chronic obstructive pulmonary disease, unspecified; F17.210 Nicotine dependence, cigarettes, uncomplicated; Z11.52 Encounter for screening for COVID-19
CPT/HCPCS: 93005; 87040 ×2; 87088; 85025; 81001; 87086; 36415; 86900; 86850; 85610; 86901; 83605 ×2; 85730; 84443; 84484; 84439; 80053; 83880; 86140; 71250; 74176; 74018; 71045 ×3; 82805; 31500; 51702; 99291; 99292; 87811; 36600; 94002; 94660; 36556; J2704; J2543 ×2; J1720; J2405; P9047; J7040; J7030 ×2

== ENCOUNTER 2023-12-18 11:15 | Inpatient (IN) | payer MEDICARE, OTHER ==
[2023-12-18] MEDS ORDERED: ALBUTEROL 2.5 MG/3 ML NEB SOL ONE (11:32)
[2023-12-18] MEDS ORDERED: IPRATROPIUM BROM 0.5MG/2.5ML ONE (11:32)
--- NOTE | 2023-12-18 12:14 | RAD REPORT ---
EXAM DESCRIPTION: US - Extremity Venous Uni Ltd - 12/18/2023 12:07 pm CLINICAL HISTORY: SWELLING Leg swelling and edema. COMPARISON: No comparisons FINDINGS: Right lower extremity venous system was interrogated with Doppler technique. Normal flow, compressibility and augmentation was noted. There is no DVT present. IMPRESSION: No evidence of right lower extremity deep venous thrombosis.
--- NOTE | 2023-12-18 12:17 | RAD REPORT ---
EXAM DESCRIPTION: US - Lower Extremity Artery Uni Ltd - 12/18/2023 12:07 pm CLINICAL HISTORY: Pain;Swelling COMPARISON: Lower Ext Angio dated 10/06/2023 FINDINGS: Diffuse monophasic waveforms are seen throughout the right lower extremity arterial system compatible with significant inflow disease. No complete occlusion is evident.
[2023-12-18] MEDS ORDERED: VANCOMYCIN 1 GM/VIAL ONE (12:29)
[2023-12-18] MEDS ORDERED: NA CHLORIDE 0.9% 250 ML ONE (12:30)
--- NOTE | 2023-12-18 13:13 | RAD REPORT ---
EXAM DESCRIPTION: RAD - Chest Single View - 12/18/2023 12:19 pm CLINICAL HISTORY: COPD Chest pain. COMPARISON: Chest Single View dated 11/14/2023; Abdomen 1 View (KUB) dated 11/14/2023; Chest Single Vi ew dated 11/13/2023; Chest Single View dated 11/13/2023 FINDINGS: Portable technique limits examination quality. Mild interstitial pulmonary edema seen. The heart is mildly enlarged in size. No displaced fractures. IMPRESSION: Mild CHF.
--- NOTE | 2023-12-18 13:14 | RAD REPORT ---
EXAM DESCRIPTION: RAD - Foot Right 3 View - 12/18/2023 12:19 pm CLINICAL HISTORY: open wound Pain and swelling COMPARISON: Foot Right 3 View dated 03/22/2023 FINDINGS: Prior first and second toe amputation noted. Demineralization is seen of the first and sec ond metatarsal heads likely representing osteomyelitis. A small amount of soft tissue gas.
[2023-12-18] MEDS ORDERED: NA CHLORIDE 0.9% 100 ML ONE (13:43)
[2023-12-18] MEDS ORDERED: FENTANYL CITR 100 MCG/2 ML ONE (13:43)
[2023-12-18] MEDS ORDERED: CEFEPIME 1 GM/VIAL ONE (13:43)
[2023-12-18 13:52] LABS: Absolute Basophils 0.1 K/uL (0-0.5); Absolute Eosinophils 0.1 K/uL (0-0.5); Absolute Lymphocytes (CBC) 1.5 K/uL (0.7-4.9); Absolute Monocytes 2.3 K/uL (0.1-1.3); Absolute Neutrophil 21.2 K/uL (1.8-8.0); Basophils % 0.4 % (0-1.3); Eosinophils % 0.3 % (0-4.4); Hematocrit 12.9 % (39.6-49.0); Lymphocytes % 5.9 % (15.3-44.8); MCH 25.6 pg (27.0-35.0); MCHC 31.7 g/dL (32.0-36.0); MCV 80.8 fL (80-100); MPV 7.6 fL (7.6-11.3); Monocytes % 9.2 % (3.3-12.3); Neutrophils % 84.2 % (41.7-73.7); Nucleated Red Blood Cells % 0.1 % (0-0); Platelets 494 thou/uL (152-406); Red Cell Distribution Width 18.3 % (12.1-15.2)
--- NOTE | 2023-12-18 13:57 | P.HP ---
Certification for Inpatient Patient admitted to: Inpatient With expected LOS: >2 Midnights Patient will require the following post-hospital care: None Practitioner: I am a practitioner with admitting privileges, knowledge of patient current condition, hospital course, and medical plan of care. Services: Services provided to patient in accordance with Admission requirements found in Title 42 Section 412.3 of the Code of Federal Regulations Patient History Date of Service: 12/18/23 Reason for admission: Gangrenous right foot History of Present Illness: Thom Wright is a 63-year-old male with past medical history COPD, CVA with left-sided paralysis, diabetes mellitus, hypertension, ND, pancreatitis, peripheral vascular disease, stent who presents to the ED with chief complaint of maggots to his right foot surgical incision. He reports his sister looked at his foot this morning and called the EMS. Per chart review, amputation was performed on the right foot October 16, 2023. During that admission, recommendations for below-knee amputation was presented to Mr. Wright and he refused. ER started vancomycin and cefepime, Dr. Clifton consulted. Chest x-ray reports "Mild interstitial pulmonary edema seen. The heart is mildly enlarged in size. No displaced fractures. IMPRESSION: Mild CHF." Ultrasound right lower extremity arterial reports "Diffuse monophasic waveforms are seen throughout the right lower extremity arterial system compatible with significant inflow disease. No complete occlusion is evident" Ultrasound right lower extremity venous report "Right lower extremity venous system was interrogated with Doppler technique. Normal flow, compressibility and augmentation was noted. There is no DVT present. IMPRESSION: No evidence of right lower extremity deep venous thrombosis." Right foot x-ray reports "FINDINGS: Prior first and second toe amputation noted. Demineralization is seen of the first and second metatarsal heads likely representing osteomyelitis. A small amount of soft tissue gas." Thom will be admitted to hospitalist service for further treatment of gas gangrene to right foot. Dr. Clifton consulted. Allergies No Known Allergies Allergy (Verified 03/02/22 21:58) Home Medications: Clopidogrel Bisulfate [Plavix*] 75 mg PO BEDTIME #30 tab 03/15/22 Insulin Detemir [Levemir] 24 unit SQ BID 04/18/22 Metoprolol Tartrate [Lopressor*] 50 mg PO BID 6AM 6PM #60 tab 04/24/22 Altace 1.25 1.25 mg PO BEDTIME 09/29/23 Atorvastatin Calcium [Lipitor] 80 mg PO BEDTIME 09/29/23 Dapagliflozin Propanediol [Farxiga] 10 mg PO DAILY 09/29/23 Furosemide [Lasix*] 40 mg PO BID 09/29/23 Gabapentin 300 mg PO BID 09/29/23 Hydrocodone/Acetaminophen [Hydrocodone-Acetamin 7.5-325] 1 each PO BIDP PRN 09/29/23 Insulin Aspart [Novolog Flexpen] 6 unit SQ AC 09/29/23 Sitagliptin Phosphate [Januvia] 100 mg PO DAILY 09/29/23 Trazodone [Desyrel*] 50 mg PO BEDTIME 09/29/23 cilostazoL [Cilostazol] 100 mg PO BID 09/29/23 predniSONE [Prednisone*] 5 mg PO SEECOM 09/29/23 Losartan Potassium [Cozaar*] 50 mg PO BID #60 tab 10/03/23 Nifedipine Xl [Procardia XL*] 60 mg PO DAILY #30 tab 10/03/23 Pantoprazole [Protonix Tab*] 40 mg PO BIDAC #60 tab 10/03/23 Hydrocodone 7.5/APAP 325 [[place] 7.5/325 mg*] 1 tab PO BIDP PRN 10/13/23 Amox/Clavulanate [Augmentin 875-125 Tab] 875 mg PO BID 10 Days #20 tab 10/18/23 Mupirocin Oint [Bactroban 2% Ointment*] 1 appl TOP DAILY 30 Days #1 tube 10/18/23 Vitamin D [Drisdol*] 50,000 unit PO Q48H 30 Days #15 cap 10/18/23 - Past Medical/Surgical History Diabetic: Yes -: Diabetes mellitus type 2not insulin-dependent -: Hypertension -: Unknown additional history -: CVA x3 -: carotid surgery -: CVA x3 -: Peripheral arterial disease with stent placement Psychosocial/ Personal History: Patient lives at home with his , family - Social History Alcohol use: No CD- Drugs: No Caffeine use: Yes Review of Systems Unremarkable (He reports not having any problems and his sister sent him to the ED) Physical Examination - Physical Exam General: Alert, In no apparent distress, Oriented x3 HEENT: Atraumatic, Normocephalic, PERRLA, Other (Ectropion to left lower eye lid) Neck: Supple, 2+ carotid pulse no bruit Respiratory: Clear to auscultation bilaterally, Normal air movement Cardiovascular: Normal pulses, Regular rate/rhythm, Normal S1 S2 Gastrointestinal: Normal bowel sounds, Soft and benign Musculoskeletal: Swelling (Right foot), Other (Open incision to right amputation area of first and second toe) Integumentary: Skin breakdown (Open incision to right amputation of first and second toe) Neurological: Normal speech, Normal tone Assessment and Plan - Plan Assessment and plan Sepsis secondary to gangrenous right foot incision S/P Amputation gangrenous right first toe and right second toe History of severe peripheral vascular disease with stent Leukocytosis -Sepsis criteria WBC 25.2, pulse 104, infectious source -C-reactive protein 254 -Ultrasound right lower extremity arterial reports "Diffuse monophasic waveforms are seen throughout the right lower extremity arterial system compatible with significant inflow disease. No complete occlusion is evident" -Ultrasound right lower extremity venous report "Right lower extremity venous system was interrogated with Doppler technique. Normal flow, compressibility and augmentation was noted. There is no DVT present. IMPRESSION: No evidence of right lower extremity deep venous thrombosis." -Right foot x-ray reports "FINDINGS: Prior first and second toe amputation noted. Demineralization is seen of the first and second metatarsal heads likely representing osteomyelitis. A small amount of soft tissue gas." -Dr. Clifton is consulted -Cefepime vancomycin given in the ED, will continue on the floor -Pain control morphine, Tylenol -Wound care Anemia -H&H 7.2/23.0-recheck at 9 PM -Type and screen placed -Iron studies pending Electrolyte imbalance -Sodium 130, potassium 2.7 -Replace and monitor in a.m. lab Diabetes mellitus Accu-Chek with sliding scale insulin Serum glucose 154 History of COPD History of ND History of CVA with left-sided paralysis History of hypertension Restart home medication Supportive care DVT ppx SCD to unaffected leg Full code LOS 2-3 days Discharge Plan: Home Plan to discharge in: 48 Hours - Advance Directives Does patient have a Living Will: No Does patient have a Durable POA for Healthcare: No
[2023-12-18 14:19] LABS: Hemoglobin 4.1 g/dL (13.6-17.9)
[2023-12-18 14:20] LABS: Albumin 2.1 g/dL (3.4-5.0); Albumin/Globulin Ratio 0.3 (1.1-1.8); Anion Gap 10.7 mEq/L (5.0-15.0); Bilirubin Total 0.8 mg/dL (0.2-1.0); Globulin 6.4 g/dL (2.3-3.5); Potassium 2.7 mEq/L (3.5-5.1); Protein, Total 8.5 g/dL (6.4-8.2)
[2023-12-18 14:24] LABS: PT Prothrombin Time 13.8 SECONDS (9.5-12.5); PTT, Activated Partial Thromb 31.1 SECONDS (24.3-36.9); Protime INR 1.26
[2023-12-18 14:29] LABS: Hemoglobin 7.2 g/dL (13.6-17.9)
[2023-12-18] MEDS ORDERED: VANCOMYCIN 2 GM in NA CHLORIDE 0.9% 500 ML IVPB SCH (15:00)
[2023-12-18] MEDS ORDERED: ACETAMINOPHEN 500 MG TAB PO PRN (15:44)
[2023-12-18] MEDS ORDERED: ACETAMINOPHEN 325 MG TABLET PO PRN (15:44)
[2023-12-18] MEDS: NA CHLORIDE 0.9% 1,000 ML IV SCH (16:00)
--- NOTE | 2023-12-18 16:01 | EDPHYS ---
Physician Documentation [facility] Name: Thom Wright Age: 63 yrs Sex: Male : 1960 Arrival Date: 12/18/2023 Time: 11:15 Bed 13 Private MD: ED Physician Adan Mace HPI: 12/17 11:35 This 63 yrs old Male presents to ER via EMS with complaints of Right Foot Wound. cp 11:35 The patient presents with infected surgical wound of right foot. cp 11:35 Onset: The symptoms/episode began/occurred at an unknown time. Associated signs and cp symptoms: Pertinent negatives fever. Treatment prior to arrival includes: no previous treatment. Patient with amputation of right first and second toes by DR Clifton in October 2023. Historical: - Allergies: 11:26 NKDA; ph - PMHx: 11:26 COPD; CVA; diabetes mellitus; Hypertensive disorder; AK; Pancreatitis; peripheral ph vascular disease; stent; stroke ( deficit left side paralysis); - PSHx: 11: Carotid endarterectomy; Femoral bypass; ph - Immunization history:: Adult Immunizations unknown. - Infectious Disease History:: Denies. - Social history:: Smoking status: Patient/guardian denies using tobacco, but has a distant history of tobacco abuse. ROS: 11:40 Constitutional: Negative for fever, cp 11:40 Eyes: Negative for injury, pain, redness, and discharge, cp 11:40 Cardiovascular: Negative for chest pain, 11:40 Respiratory: Positive for cough, shortness of breath, 11:40 Abdomen/GI: Negative for abdominal pain, vomiting, diarrhea, constipation, 11:40 Neuro: Negative for altered mental status, headache, 11:40 All other systems are negative, Exam: 11:45 Constitutional: The patient appears in no acute distress, alert, awake, cp non-diaphoretic, non-toxic, well developed, well nourished, uncomfortable, 11:45 Head/Face: Normocephalic, atraumatic. cp 11:45 Eyes: Periorbital structures: appear normal, Conjunctiva: normal, no exudate, no injection, Sclera: no appreciated abnormality, Lids and lashes: appear normal, bilaterally, 11:45 ENT: External ear(s): are unremarkable, Nose: is normal, Mouth: Lips: moist, Oral mucosa: pink and intact, moist, Posterior pharynx: is normal, airway is patent, no erythema, no exudate, 11:45 Chest/axilla: Inspection: normal, 11:45 Cardiovascular: Rate: normal, Rhythm: regular, Edema: is not appreciated, JVD: is not appreciated, 11:45 Respiratory: the patient does not display signs of respiratory distress, Respirations: labored breathing, that is mild, Breath sounds: decreased breath sounds, that are moderate, throughout, 11:45 Abdomen/GI: Inspection: abdomen appears normal, Palpation: abdomen is soft and non-tender, in all quadrants, 11:45 Back: pain, is absent, ROM is normal, 11:45 Musculoskeletal/extremity: Extremities: noted in the right foot: right first and second toes amputated, swelling and erythema noted of dorsum of right foot, surgical site open with purulent drainage and maggots noted in wound, 11:45 Neuro: Orientation: to person, place, situation, Mentation: able to follow commands, slow to respond, Motor: moves all fours, no focal deficits, 13:25 ECG was reviewed by the Attending Physician. Vital Signs: 11:23 BP 128 / 52; Pulse 104; Resp 18; Temp 98; Pulse Ox 87% on R/A; Weight 104.33 kg; Height ph 6 ft. 0 in. ; 13:00 BP 127 / 86; Pulse 104; Resp 18; Pulse Ox 94% on 2 lpm NC; ph 14:30 BP 144 / 78; Pulse 101; Resp 16; Pulse Ox 94% on 2 lpm NC; ph 16:10 BP 128 / 62; Pulse 105; Resp 18; Pulse Ox 94% on 2 lpm NC; ph 17:00 BP 132 / 78; Pulse 93; Resp 18; Pulse Ox 96% on 2 lpm NC; ph 11:23 Body Mass Index 31.19 (104.33 kg, 182.88 cm) ph MDM: 13:33 Management of patient was discussed with the following: Utility Technician: DR Clifton concerning exam findings and he will consult. 16:00 Patient medically screened. 16:00 Data reviewed: vital signs, nurses notes, lab test result(s), EKG, radiologic studies, cp plain films, ultrasound, and as a result, I will admit patient. 16:00 Consideration of Admission/Observation Patient was admitted/placed on observation. I cp considered the following discharge prescriptions or medication management in the emergency department Medications were administered in the Emergency Department. See MAR. Independent interpretation of the following test(s) in the Emergency Department EKG: See my EKG interpretation above. Care significantly affected by the following chronic conditions: Diabetes, Hypertension, Chronic Obstructive Pulmonary Disease. Care significantly affected by the following Social Determinants of Health: Problems related to primary support group. 12/17 11:31 Order name: Blood Culture Adult (2) 12/17 11:31 Order name: CBC with Diff 12/17 15:05 Interpretation: Normal except: WBC 25.20; RBC 1.60; HGB 4.1; HCT 12.9; MCH 25.6; MCHC cp 31.7; PLT 494; RDW 18.3; CRISTOFER% 84.2; LYM% 5.9; NEUT A 21.2; MNA 2.3. 12/17 11:31 Order name: CMP; Complete Time: 15:04 12/17 15:05 Interpretation: Normal except: NA 130; K 2.7; CL 95; GLUC 154; GFR 62; ALK 165; TP 8.5; cp ALB 2.1; GLOB 6.4; A/G 0.3. 12/17 11:31 Order name: Lactate w/ 2H reflex if indic.; Complete Time: 15:04 12/17 11:31 Order name: Protime (+inr); Complete Time: 15:04 12/17 11:31 Order name: Ptt, Activated; Complete Time: 15:04 12/17 11:31 Order name: Urinalysis w/ reflexes 12/17 11:31 Order name: Wound Culture 12/17 11:31 Order name: CRP; Complete Time: 15:04 12/17 14:04 Order name: Hematocrit; Complete Time: 15:04 12/17 15:06 Interpretation: Abnormal: HCT 23.0. 12/17 14:04 Order name: Hemoglobin; Complete Time: 15:04 12/17 15:06 Interpretation: Reviewed. 12/17 14:04 Order name: Type And Screen 12/17 15:56 Order name: Urinalysis w/ reflexes EDMS 12/17 15:56 Order name: Basic Metabolic Panel EDMS 12/17 15:56 Order name: Basic Metabolic Panel EDMS 12/17 15:56 Order name: Basic Metabolic Panel EDMS 12/17 15:56 Order name: Basic Metabolic Panel EDMS 12/17 15:56 Order name: Basic Metabolic Panel EDMS 12/17 15:56 Order name: Basic Metabolic Panel EDMS 12/17 15:56 Order name: Basic Metabolic Panel EDMS 12/17 15:56 Order name: Basic Metabolic Panel EDMS 12/17 15:56 Order name: CBC with Automated Diff EDMS 12/17 15:56 Order name: CBC with Automated Diff EDMS 12/17 15:56 Order name: CBC with Automated Diff EDMS 12/17 15:56 Order name: CBC with Automated Diff EDMS 12/17 15:56 Order name: CBC with Automated Diff EDMS 12/17 15:56 Order name: CBC with Automated Diff EDMS 12/17 15:56 Order name: CBC with Automated Diff EDMS 12/17 15:56 Order name: CBC with Automated Diff EDMS 12/17 15:56 Order name: Magnesium EDMS 12/17 15:56 Order name: Magnesium EDMS 12/17 15:56 Order name: Magnesium EDMS 12/17 15:56 Order name: Magnesium EDMS 12/17 15:56 Order name: Magnesium EDMS 12/17 15:56 Order name: Magnesium EDMS 12/17 15:56 Order name: Magnesium EDMS 12/17 15:56 Order name: Magnesium EDMS 12/17 15:56 Order name: Phosphorus EDMS 12/17 15:56 Order name: Phosphorus EDMS 12/17 15:56 Order name: Phosphorus EDMS 12/17 15:56 Order name: Phosphorus EDMS 12/17 15:56 Order name: Phosphorus EDMS 12/17 15:56 Order name: Phosphorus EDMS 12/17 15:56 Order name: Phosphorus EDMS 12/17 15:56 Order name: Phosphorus EDMS 12/17 16:02 Order name: Bb Add On ll1 12/17 18:32 Order name: CBC Smear Scan EDMS 12/17 11:31 Order name: Chest Single View XRAY; Complete Time: 15:04 cp 12/17 11:31 Order name: XRAY Foot RIGHT 3 View; Complete Time: 15:04 cp 12/17 11:31 Order name: US Extremity Venous Unilateral Ltd; Complete Time: 15:04 cp 12/17 11:31 Order name: US LE Artery Uni Ltd; Complete Time: 15:04 cp 12/17 15:55 Order name: CONS Physician Consult EDMS 12/17 11:31 Order name: Accucheck; Complete Time: 17:17 cp 12/17 11:31 Order name: Cardiac monitoring; Complete Time: 17:17 cp 12/17 11:31 Order name: EKG - Nurse/Tech; Complete Time: 15:02 cp 12/17 11:31 Order name: IV Saline Lock - Large Bore; Complete Time: 17:17 cp 12/17 11:31 Order name: Labs collected and sent; Complete Time: 17:17 cp 12/17 11:31 Order name: O2 Per Protocol; Complete Time: 17:17 cp 12/17 11:31 Order name: O2 Sat Monitoring; Complete Time: 17:17 cp 12/17 11:31 Order name: Vital Signs; Complete Time: 17:17 cp 12/17 14:32 Order name: Labs - recollect needed: recollect type and screen; Complete Time: 17:17 bd 12/17 17:28 Order name: Labs - recollect needed: recollect type and screen, re band pt; Complete bd Time: 19:44 EC:25 Rate is 98 beats/min. Rhythm is regular. MO interval is normal. QRS interval is normal. cp QT interval is normal. Interpreted by me. Reviewed by me. Administered Medications: 13:02 Drug: DuoNeb Nebulize (2.5 mg - 0.5 mg) 3 ml Nebulizer once Route: Nebulizer; ph 14:24 Drug: Cefepime IVPB 1 grams IVPB at 200 ml/hr once over 30 mins; (mix in NS 100 mL) ph Route: IVPB; Rate: 200 ml/hr; Infused Over: 30 mins; Site: right wrist; 15:32 Drug: fentaNYL (PF) IVP 25 mcg IVP once Route: IVP; Site: right wrist; ph 15:33 Drug: vancoMYCIN IVPB 1 grams IVPB once over 2 hrs Route: IVPB; Infused Over: 2 hrs; ph Site: right wrist; 17:17 Drug: Potassium PO Effervescent Tablet 50 mEq PO once; dissolve in 4 ounces of water or ph juice Route: PO; 19:41 Follow up: Response: No adverse reaction ph 18:14 Not Given (Other Intervention Used): potassium [id number] meq IV at calculated rate ph once; administer over 1-2 hours Disposition: 12/18 07:49 Co-signature as Attending Physician, Adan Mace MD I reviewed the patient's care rn provided by the Advanced Practice Provider and agree with the diagnosis and treatment plan. Disposition Summary: 12/18/23 16:00 Hospitalization Ordered Notes: Hospitalization Status: Inpatient Admission cp Provider: Amauri Hudson cp Condition: Stable cp Problem: new cp Symptoms: have improved cp Bed/Room Type: Standard cp Location: Telemetry/MedSurg (Inpatient)(12/18/23 17:54) bd Room Assignment: 216(12/18/23 17:54) bd Diagnosis - Sepsis, unspecified organism cp - Osteomyelitis, unspecified - right foot cp - Hypokalemia cp - Anemia, unspecified cp Forms: - Medication Reconciliation Form cp - SBAR form cp - Leadership Thank You Letter cp Signatures: Dispatcher [employer] EDMS Radha Stephenson bd Adan Mace MD MD rn Hall, Patricia, RN RN ph Page, Corey, PA PA cp Marnie Townsend, SALLIE RN kb3 Corrections: (The following items were deleted from the chart) 12/17 11:32 11:32 Chest Single View+RAD.RAD.BRZ ordered. EDMS EDMS 11:32 11:32 Foot Right 3 View+RAD.RAD.BRZ ordered. EDLA EDMS 11:32 11:32 Extremity Venous Uni Ltd+US.RAD.BRZ ordered. EDLA EDMS 11:32 11:32 Lower Extremity Artery Uni Ltd+US.RAD.BRZ ordered. EDMS EDMS 14:04 14:04 Hematocrit+H.LAB.BRZ ordered. EDMS EDMS 14:04 14:04 Hemoglobin+H.LAB.BRZ ordered. EDMS EDMS 14:04 14:04 TYPE AND SCREEN+BB.LAB.BRZ ordered. EDMS EDMS 17:14 16:00 Telemetry/MedSurg (Inpatient) cp kb3 17:14 16:00 cp kb3 17:54 17:14 BR ER HOLD kb3 bd 17:54 17:14 ERHOLD- kb3 bd 20:21 13:35 This 63 yrs old Male presents to ER via EMS with complaints of Right Foot Wound. cp cp
--- NOTE | 2023-12-18 16:01 | ER ---
Nurse's Notes [facility] Name: Thom Wright Age: 63 yrs Sex: Male : 1960 Arrival Date: 12/18/2023 Time: 11:15 Bed 13 Private MD: Diagnosis: Sepsis, unspecified organism;Osteomyelitis, unspecified-right foot;Hypokalemia;Anemia, unspecified Presentation: 12/17 11:23 Chief complaint: EMS states: Pt from home, had 1st and 2nd toes of R foot amputated ph approx 1 month ago, presents to ED w/ redness and swelling to R foot, open wound to R foot, maggots noted in wound, VSS. Coronavirus screen: Vaccine status: Patient reports being unvaccinated. Ebola Screen: No symptoms or risks identified at this time. Initial Sepsis Screen: Does the patient meet any 2 criteria? No. Patient's initial sepsis screen is negative. Does the patient have a suspected source of infection? No. Patient's initial sepsis screen is negative. Risk Assessment: Do you want to hurt yourself or someone else? Patient reports no desire to harm self or others. Onset of symptoms was December 18, 2023. 11:23 Method Of Arrival: EMS: [facility] ph 11:23 Acuity: SONIA 3 ph Historical: - Allergies: 11:26 NKDA; ph - PMHx: 11:26 COPD; CVA; diabetes mellitus; Hypertensive disorder; SC; Pancreatitis; peripheral ph vascular disease; stent; stroke ( deficit left side paralysis); - PSHx: 11:26 Carotid endarterectomy; Femoral bypass; ph - Immunization history:: Adult Immunizations unknown. - Infectious Disease History:: Denies. - Social history:: Smoking status: Patient/guardian denies using tobacco, but has a distant history of tobacco abuse. Screenin:27 [facility] ED Fall Risk Assessment (Adult) History of falling in the last 3 months, ph including since admission No falls in past 3 months (0 pts) Confusion or Disorientation No (0 pts) Intoxicated or Sedated No (0 pts) Impaired Gait Yes (1 pt) Mobility Assist Device Used Yes (1 pt) Altered Elimination Yes (1 pt) Score/Fall Risk Level 3 or more points = High Risk Oriented to surroundings, Maintained a safe environment, Hourly rounding (assess needs \T\ fall precautionary measures) done, Used ambulatory aids as needed (educated on \T\ assisted with). Abuse screen: Denies threats or abuse. Denies injuries from another. Nutritional screening: No deficits noted. Tuberculosis screening: No symptoms or risk factors identified. Assessment: 11:30 General: Appears in no apparent distress. Behavior is calm, cooperative. Pain: ph Complains of pain in right foot and left foot. Neuro: Level of Consciousness is awake, alert, obeys commands, Oriented to person, place, time, situation. Cardiovascular: Capillary refill < 3 seconds in bilateral fingers Patient's skin is warm and dry. Respiratory: Reports cough that is Airway is patent Respiratory effort is even, unlabored. GI: No signs and/or symptoms were reported involving the gastrointestinal system. Derm: Skin is pale. Derm: Wound noted R 1st and 2nd toes amputated, open wound to area w/ maggots present, wound noted to bottom of foot as well, diabetic ulcer is not open. Derm: Wound noted arch of left foot Wound is closed, stage 1 diabetic ulcer. Musculoskeletal:. 13:00 Reassessment: Patient appears in no apparent distress at this time. No changes from ph previously documented assessment. Patient and/or family updated on plan of care and expected duration. Pain level reassessed. 14:00 Reassessment: Patient appears in no apparent distress at this time. No changes from ph previously documented assessment. Patient and/or family updated on plan of care and expected duration. Pain level reassessed. 15:00 Reassessment: Patient appears in no apparent distress at this time. Patient and/or ph family updated on plan of care and expected duration. Pain level reassessed. 17:00 Reassessment: Recollect of T\T\S sent, pt refusing 2nd IV start, explained to pt that a ph second IV was needed for possible blood transfusion, pt still refuses. 18:00 Reassessment: T\T\S recollect rejected by lab, contacted phlebotomy for blood draw. ph Vital Signs: 11:23 BP 128 / 52; Pulse 104; Resp 18; Temp 98; Pulse Ox 87% on R/A; Weight 104.33 kg; Height ph 6 ft. 0 in. ; 13:00 BP 127 / 86; Pulse 104; Resp 18; Pulse Ox 94% on 2 lpm NC; ph 14:30 BP 144 / 78; Pulse 101; Resp 16; Pulse Ox 94% on 2 lpm NC; ph 16:10 BP 128 / 62; Pulse 105; Resp 18; Pulse Ox 94% on 2 lpm NC; ph 17:00 BP 132 / 78; Pulse 93; Resp 18; Pulse Ox 96% on 2 lpm NC; ph 11:23 Body Mass Index 31.19 (104.33 kg, 182.88 cm) ph ED Course: 11:17 Patient arrived in ED. ec2 11:22 Andrew Victoria PA is PHCP. ec2 11:23 Yolande Jacobs, SALLIE is Primary Nurse. ph 11:23 Adan Mace MD is Attending Physician. cp 11:26 Triage completed. ph 11:27 Arm band placed on right wrist. Patient placed in an exam room, on a stretcher, on ph monitoring analyst, on pulse oximetry. 11:27 Patient has correct armband on for positive identification. Placed in gown. Bed in low ph position. Call light in reach. Side rails up X2. Client placed on continuous cardiac and pulse oximetry monitoring. NIBP monitoring applied. monitor and storage bin tender on. Door closed. Noise minimized. Warm blanket given. 11:49 Patient taken to ultrasound. via stretcher. ph 12:09 US Extremity Venous Unilateral Ltd In Process Unspecified. EDMS 12:09 US LE Artery Uni Ltd In Process Unspecified. EDMS 12:21 Chest Single View XRAY In Process Unspecified. EDMS 12:21 XRAY Foot RIGHT 3 View In Process Unspecified. EDMS 13:02 Missed attempt(s): 22 gauge in right antecubital area. Bleeding controlled, band aid ph applied, catheter tip intact. Missed attempt(s): 22 gauge in right antecubital area. Bleeding controlled, band aid applied, catheter tip intact. 13:02 Wound culture swab sent to lab. ph 13:39 Initial lab(s) drawn, by me, sent to lab. First set of blood cultures drawn by me. aa5 13:42 Inserted saline lock: 22 gauge in left wrist, using aseptic technique. aa5 14:24 Type And Screen Sent. ph 14:24 Hemoglobin Sent. ph 14:24 Hematocrit Sent. ph 15:57 Amauri Hudson is Hospitalizing Provider. cp 17:00 No provider procedures requiring assistance completed. Patient admitted, IV remains in ph place. Administered Medications: 13:02 Drug: DuoNeb Nebulize (2.5 mg - 0.5 mg) 3 ml Nebulizer once Route: Nebulizer; ph 14:24 Drug: Cefepime IVPB 1 grams IVPB at 200 ml/hr once over 30 mins; (mix in NS 100 mL) ph Route: IVPB; Rate: 200 ml/hr; Infused Over: 30 mins; Site: right wrist; 15:32 Drug: fentaNYL (PF) IVP 25 mcg IVP once Route: IVP; Site: right wrist; ph 15:33 Drug: vancoMYCIN IVPB 1 grams IVPB once over 2 hrs Route: IVPB; Infused Over: 2 hrs; ph Site: right wrist; 17:17 Drug: Potassium PO Effervescent Tablet 50 mEq PO once; dissolve in 4 ounces of water or ph juice Route: PO; 19:41 Follow up: Response: No adverse reaction ph 18:14 Not Given (Other Intervention Used): potassium [id number] meq IV at calculated rate ph once; administer over 1-2 hours Medication: 11:27 VIS not applicable for this client. ph Outcome: 16:00 Decision to Hospitalize by Provider. cp 19:45 Admitted to Med/surg accompanied by ana multani 19:45 Condition: stable 19:45 Instructed on the need for admit, 19:46 Patient left the ED. ana Signatures: Dispatcher [employer] Jackelin Brody, SALLIE RN aa5 Yolande Jacobs RN RN ph Page, Corey, PA PA cp Breneman, Mary Beth, RN RN mb9 Jay Dowell MD MD ec2
[2023-12-18] MEDS: VANCOMYCIN 1.5 GM in NA CHLORIDE 0.9% 500 ML IVPB ONE (17:00)
[2023-12-18] MEDS: POTASSIUM CL 40 MEQ in NA CHLORIDE 0.9% 500 ML IV SCH (17:00)
[2023-12-18 18:31] LABS: Platelet Estimate INCR; White Blood Cell Scan OK (OK)
[2023-12-18 18:32] LABS: Blood Morphology Comment NOT SEEN (NOT SEEN)
[2023-12-18 21:31] LABS: Hematocrit 21.1 % (39.6-49.0); Hemoglobin 6.8 g/dL (13.6-17.9)
[2023-12-18] MEDS: NA CHLORIDE 0.9% 250 ML IV SCH (22:00)
[2023-12-18] MEDS: CEFEPIME 2 GM in NA CHLORIDE 0.9% 100 ML IV SCH (22:54)
[2023-12-18] MEDS: Mupirocin NASAL 2 APPL/1 GM TUBE NAS SCH (22:55)
[2023-12-19 04:06] VITALS: BMI 31.1
[2023-12-19 09:49] LABS: Absolute Basophils 0.1 K/uL (0-0.5); Absolute Eosinophils 0.1 K/uL (0-0.5); Absolute Lymphocytes (CBC) 0.6 K/uL (0.7-4.9); Absolute Neutrophil 13.7 K/uL (1.8-8.0); Basophils % 0.4 % (0-1.3); Eosinophils % 0.7 % (0-4.4); Hematocrit 25.2 % (39.6-49.0); Hemoglobin 8.1 g/dL (13.6-17.9); Lymphocytes % 3.6 % (15.3-44.8); MCH 26.7 pg (27.0-35.0); MCHC 32.2 g/dL (32.0-36.0); MCV 83.2 fL (80-100); MPV 7.3 fL (7.6-11.3); Monocytes % 6.2 % (3.3-12.3); Neutrophils % 89.1 % (41.7-73.7); Nucleated Red Blood Cells % 0.1 % (0-0); Platelets 349 thou/uL (152-406); RBC Red Blood Cell Count 3.03 M/uL (4.33-5.43); Red Cell Distribution Width 18.5 % (12.1-15.2)
[2023-12-19 10:21] LABS: Blood Morphology Comment NOT SEEN (NOT SEEN); Platelet Estimate ADEQ; White Blood Cell Scan OK (OK)
[2023-12-19 10:27] LABS: Anion Gap 9.3 mEq/L (5.0-15.0); Ferritin 211.5 ng/mL (26-388); Magnesium 1.8 mg/dL (1.6-2.4); Phosphorus 2.7 mg/dL (2.5-4.9); Potassium 3.3 mEq/L (3.5-5.1)
--- NOTE | 2023-12-19 12:19 | CON ---
Date of Consultation: 12/19/2023 Reason For Service: Gangrene of the right foot with the osteomyelitis, infected gangrene. History Of Present Illness: This is the case of a 63-year-old patient with multiple medical problems with gangrenous changes on the right foot. He has been having severe peripheral vascular disease to the point that he lost the toes before for gangrene, did not follow up. DICTATION ENDS HERE. SEE COMPLETED CONSULT ÓSCAR/KATERYNA Voice ID: [id number] Report ID: [id number] MTDD
--- NOTE | 2023-12-19 12:50 | P.PN ---
Date of Service: 12/19/23 Subjective: No acute events overnight Family at bedside ROS: 10 point ROS as noted above, otherwise negative Physical exam General: Alert, In no apparent distress, Oriented x3 HEENT: Atraumatic, Normocephalic, PERRLA, Other (Ectropion to left lower eye lid) Neck: Supple, 2+ carotid pulse no bruit Respiratory: Clear to auscultation bilaterally, Normal air movement Cardiovascular: Normal pulses, Regular rate/rhythm, Normal S1 S2 Gastrointestinal: Normal bowel sounds, Soft and benign Musculoskeletal: Swelling (Right foot), Other (Open incision to right amputation area of first and second toe) Integumentary: Skin breakdown (Open incision to right amputation of first and second toe with necrotic tissue and maggots present) Neurological: Normal speech, Normal tone Vitals reviewed Assessment and plan Sepsis secondary to gangrenous right foot incision S/P Amputation gangrenous right first toe and right second toe History of severe peripheral vascular disease with stent Leukocytosis -Ultrasound right lower extremity with monophasic flow, no occlusive findings -Ultrasound right lower extremity venous no DVT -Right foot x-ray reports "FINDINGS: Prior first and second toe amputation noted. Demineralization is seen of the first and second metatarsal heads likely representing osteomyelitis. A small amount of soft tissue gas." -Dr. Clifton is consulted-plan for possible amputation 12/19, possible BKA pending cardiology eval/clearance -Continue Cefepime and vancomycin -Pain control morphine, Tylenol -Wound care TWYLA -Received one unit PRBC thus far -No active bleeding -monitor CBC daily -Add Iron Hypokalemia/mild hyponatremia -Improving -Replace and monitor in a.m. lab Diabetes mellitus Accu-Chek with sliding scale insulin History of COPD History of [place] History of CVA with left-sided paralysis History of hypertension Restart home medication Supportive care DVT ppx SCD to unaffected leg Full code LOS 3-4 days Time Spent Managing Pts Care (In Minutes): 35
[2023-12-19] MEDS: MORPHINE 4 MG/ML SYR IV PRN (13:18)
[2023-12-19] MEDS: VANCOMYCIN 2 GM in NA CHLORIDE 0.9% 500 ML IVPB SCH (13:19)
--- NOTE | 2023-12-19 14:16 | EKG ---
Test Date: 2023-12-18 Test Time: 13:20:59 Career Developer: SARA MEASUREMENT RESULTS: Intervals: Rate: 98 NM: 140 QRSD: 90 QT: 332 QTc: 423 [place]: P: 49 NM: 140 QRS: -10 T: 88 INTERPRETIVE STATEMENTS: Sinus rhythm with premature supraventricular complexes Inferior infarct, age undetermined Abnormal ECG Compared to ECG 11/13/2023 21:18:39 Atrial premature complex(es) now present Myocardial infarct finding still present Electronically Signed On 12-19-23 14:12:47 CDT by Jeffrey Suazo
[2023-12-19] MEDS ORDERED: VANCOMYCIN 2 GM in NA CHLORIDE 0.9% 500 ML IVPB SCH (15:00)
--- NOTE | 2023-12-19 17:23 | CON ---
Date of Consultation: 12/19/2023 Reason For Service: Gangrenous changes of the right foot. History Of Present Illness: This is the case of a male, well known in the medical service, due to mu ltiple medical problems including COPD, CVA, diabetes, hypertensive disorders, heart attack, pancreat itis, peripheral vascular disease, strokes with the left side weakness and amputations at the beginni ng of this year of the several toes on the right foot area, but he has not followed up. After that, comes to us with the gangrenous wounds over the right foot area, metatarsal bones exposed. There are multiple maggots present and alive. There are gangrenous changes in that region. He has been havin g that for several weeks, but his sister came yesterday, and decided to bring him to the ER. He was advised in the past to have a below-knee amputation, but he was not ready for that at that moment, an d he just let it be. He has previously encountered with Vascular Surgery in the form of femoral bypa ss and carotid endarterectomies. I have to mention that the H and P on him is limited since he does not recall many of his medications. We are trying to talk to 2 of his sisters trying to see if we ca n get some information as one of them has power of family law attorney who came today. I am just trying to gath er all the medication he is taking. He says he has an eye doctor that he seen over the Internet and has 4 blood pressure medications, but he has not taken them recently because she thought that the med ications was bringing the blood pressure down to much high. I do not have information of that doctor , but Dr. Mace here in the hospital is trying to get all that information. Allergies: UNKNOWN. Surgeries: As above. Medical History: As above. Social History: He has history of smoking in the past although he does not claim any smoking at this moment. Family History: Heart disease. Review of Systems: Once again, patient has gangrenous changes in the foot with multiple maggots present. He is in no di stress. He knows they are there. This has been like that for a few days. He has weakness from the previous strokes in the past on his left part of the body. Physical Examination: General: The patient is awake, alert. There is no distress. HEENT: Pupils anicteric. Neck: Supple. Chest: Clear. Abdomen: Soft and depressible. Extremities: The patient has gangrene changes over the right foot region at least up to mid foot. T he first and second metatarsal bone heads are showing there is multiple maggots present over the area with necrotic skin. It is draining since this opening already. Dorsalis pedis pulses are not asses sed in that area. Imaging: Foot x-ray shows prior first and second toe amputations. Evidence of osteomyelitis with so me gas present in that distal part. Once again, we can see the open wound in that region. Arterial Doppler shows diffuse manifested waveform in the right lower extremity system. Assessment: A 63-year-old patient has gangrenous changes in the right foot. We recommend the same t rajiv we recommended in the past, right below-knee amputation. Still he has had to see his vascular s urgeons to improve the circulation in that area if possible to at least see the below-knee amputation heal. He has not given us consent yet, but the sisters just walked in. One of them has a power of family law attorney. I exposed the wound. I showed them the wound and explained to them that there is no way w e can do a transmetatarsal and expect that to heal, so we have to do at least below-knee amputation. With benefits, alternatives, and risks include, but not limited to infection, bleeding, damage to ad jacent structures, anesthesia complication, stroke, PR, even . We understand this is a difficul t situation and medical history is not the best at the same time. We explained to them the risks of not doing anything needed. The sister is talking to him and discussed the case with the medical doct ors. They are trying to optimize him today. Hopefully, he agrees with below-knee amputation at [facility] and we start to do the preparations for it. May need a cardiology evaluation, although at this mom ent still need amputation. We discussed the case through the OR and hopefully we can find alternative for me to be able to do this amputation as soon as possible. HM/MODL Voice ID: [id number] Report ID: [id number]
--- NOTE | 2023-12-19 19:37 | CON ---
Date of Consultation: 12/19/2023 Reason For Consultation: Preop assessment for amputation of gangrenous tissue of right foot and eval uation of peripheral vascular disease. History Of Present Illness: A 63-year-old male, history of COPD, smoker, stroke with left-sided weak ness, diabetes, hypertension, peripheral vascular disease, who presented to the emergency room with o pen wound and maggots coming of the right foot surgical incision. He has significant peripheral vasc ular disease. He denies any active chest pain or shortness of breath. He does have extensive medica l history though including stroke and carotid stenosis and peripheral vascular disease. His cardiac status is not known. Denies having any chest pain or shortness of breath. No other complaints. Past Medical History: Diabetes, hypertension, CVA, carotid stenosis, peripheral vascular disease, an d dyslipidemia. Medications: Refer reconciliation sheet for detailed list. Medications were reviewed. Allergies: NO KNOWN DRUG ALLERGIES. Family History: No premature coronary artery disease or cancer. Social History: He does not smoke or drink. Does not use any drugs. Review of Systems: All systems reviewed, they were negative except mentioned in HPI. Physical Examination: Vital signs: Reviewed. Head and Neck: Pupils are equal, reactive to light. Intact eye movements. No JVD. No cervical lym phadenopathy. Neck is supple. Thyroid is not enlarged. Lungs: Clear to auscultation bilaterally. No rhonchi, wheezing, or crackles. No accessory muscle u se. Heart: Regular rate and rhythm. No extra sounds. Abdomen: Soft, nontender. Bowel sounds positive. No organomegaly. No masses or hernia. No rigidi ty or rebound. Extremities: No clubbing, cyanosis. A big wound of the right foot with gangrene. Neurologic: Alert, awake, oriented x3. No acute focal deficits appreciated. Lymph Nodes: No cervical or axillary lymphadenopathy. Investigations: BUN 17, creatinine 0.9. Assessment/recommendation: 1.Cardiac preoperative risk assessment for amputation. If it is to be done under general anesthesia , recommend to obtain stress test and echo prior as he is very high risk for coronary artery disease. 2.Peripheral vascular disease, appears to be severe. Recommend to perform an angiogram on him at on e point to help the healing process and if an intervention can be done. Likely has osteomyelitis of the bone. 3.Hypertension. His blood pressure is very high. Recommend to add amlodipine 5 mg daily. 4.Dyslipidemia. Recommend Lipitor 40 mg q.h.s. 5.Electrolyte imbalance, mainly hypokalemia, potassium is being replaced, reassess with BMP tomorrow . SR/MODL Voice ID: [id number] Report ID: [id number]
[2023-12-19] MEDS: POTASSIUM CL SA 10 MEQ TAB PO ONE (20:52)
[2023-12-20 05:09] LABS: Absolute Basophils 0.1 K/uL (0-0.5); Absolute Eosinophils 0.2 K/uL (0-0.5); Absolute Lymphocytes (CBC) 0.7 K/uL (0.7-4.9); Absolute Monocytes 0.7 K/uL (0.1-1.3); Absolute Neutrophil 12.2 K/uL (1.8-8.0); Basophils % 0.4 % (0-1.3); Eosinophils % 1.7 % (0-4.4); Hematocrit 23.7 % (39.6-49.0); Hemoglobin 7.7 g/dL (13.6-17.9); Lymphocytes % 4.8 % (15.3-44.8); MCH 26.9 pg (27.0-35.0); MCHC 32.5 g/dL (32.0-36.0); MCV 82.6 fL (80-100); MPV 7.4 fL (7.6-11.3); Monocytes % 5.4 % (3.3-12.3); Nucleated Red Blood Cells % 0.1 % (0-0); Platelets 359 thou/uL (152-406); RBC Red Blood Cell Count 2.87 M/uL (4.33-5.43); Red Cell Distribution Width 18.6 % (12.1-15.2)
[2023-12-20 05:15] LABS: Neutrophils % 87.7 % (41.7-73.7)
[2023-12-20 05:17] LABS: Anion Gap 7.8 mEq/L (5.0-15.0); Potassium 3.8 mEq/L (3.5-5.1)
[2023-12-20] MEDS ORDERED: LIDOCAINE 1% MPF 5 ML VIAL ONE (07:30)
[2023-12-20] MEDS ORDERED: MIDAZOLAM HCL 2 MG/2 ML INJ ONE (07:30)
[2023-12-20] MEDS ORDERED: LIDOCAINE 1% MPF 2 ML AMPULE ONE (07:30)
[2023-12-20] MEDS ORDERED: propofoL 200 MG/20 ML VIAL IV ONE (07:30)
[2023-12-20] MEDS: BUPIVACAINE 0.75% (PF) 2 ML SP ONE (07:45)
[2023-12-20] MEDS: MORPHINE SULFATE/PF 1 MG/ML (10 ML AMP) ONE (07:45)
[2023-12-20] MEDS: POTASSIUM PHOS IN 0.9 % NACL 15 MMOL/250 ML BAG IV ONE (07:50)
[2023-12-20] MEDS: VANCOMYCIN 2 GM in NA CHLORIDE 0.9% 500 ML IVPB SCH (13:07)
[2023-12-20] MEDS ORDERED: REGADENOSON 0.4 MG/5 ML SYR IV ONE (13:11)
--- NOTE | 2023-12-20 13:13 | P.PN ---
Date of Service: 12/20/23 Subjective: No acute events overnight Awaiting stress test ROS: 10 point ROS as noted above, otherwise negative Physical exam General: Alert, In no apparent distress, Oriented x3 HEENT: Atraumatic, Normocephalic, PERRLA, Other (Ectropion to left lower eye lid) Neck: Supple, 2+ carotid pulse no bruit Respiratory: Clear to auscultation bilaterally, Normal air movement Cardiovascular: Normal pulses, Regular rate/rhythm, Normal S1 S2 Gastrointestinal: Normal bowel sounds, Soft and benign Musculoskeletal: Swelling (Right foot), Other (Open incision to right amputation area of first and second toe) Integumentary: Skin breakdown (Open incision to right amputation of first and second toe with necrotic tissue and maggots present) Neurological: Normal speech, Normal tone Vitals reviewed Assessment and plan Sepsis secondary to gangrenous right foot wound Gram + bacteremia S/P Amputation gangrenous right first toe and right second toe History of severe peripheral vascular disease with stent Leukocytosis 3/3 blood culture bottles from 12/17 positive for gram-positive cocci in clusters Ultrasound right lower extremity with monophasic flow, no occlusive findings Ultrasound right lower extremity venous no DVT Right foot x-ray reports "FINDINGS: Prior first and second toe amputation noted. Demineralization is seen of the first and second metatarsal heads likely representing osteomyelitis. A small amount of soft tissue gas." Dr. Clifton is consulted-plan for possible amputation 12/19, possible BKA Cardiology consulted for pre operative optimization-recommends stress test, will try for stress today and possible surgery after Continue Cefepime and vancomycin Pain control morphine, Tylenol Wound care TWYLA Received one unit PRBC thus far No active bleeding monitor CBC daily Add Iron when not dealing with acute infectious process Hypokalemia/mild hyponatremia Improving Replace and monitor in a.m. lab Diabetes mellitus Accu-Chek with sliding scale insulin History of COPD History of [place] History of CVA with left-sided paralysis History of hypertension Restart home medication Supportive care DVT ppx SCD to unaffected leg Full code LOS 3-4 days Time Spent Managing Pts Care (In Minutes): 35
--- NOTE | 2023-12-20 13:49 | ECHO ---
HEIGHT: 6 ft 0 in WEIGHT: 230 lb 0 oz DATE OF STUDY: 12/20/[address]: Jeffrey Suazo 2-DIMENSIONAL: YES M.MODE: YES DOPPLER: YES COLOR FLOW: YES TDS: YES PORTABLE: DEFINITY: BUBBLE STUDY: DIAGNOSIS: CHEST PAIN CARDIAC HISTORY: CATHERIZATION: SURGERY: PROSTHETIC VALVE: PACEMAKER: MEASUREMENTS (cm) DIASTOLIC (NORMALS) SYSTOLIC (NORMALS) IVSd 1.0 (0.6-1.2) LA Diam 4.0 (1.9-4.0) LVEF 55-60% LVIDd 5.4 (3.5-5.7) LVIDs 4.0 (2.0-3.5) %FS 27% LVPWd 1.3 (0.6-1.2) Ao Diam 2.6 (2.0-3.7) 2 DIMENSIONAL ASSESSMENT: RIGHT ATRIUM: NORMAL LEFT ATRIUM: NORMAL RIGHT VENTRICLE: NORMAL LEFT VENTRICLE: MILD LEFT VENTRICULAR HYPERTROPHY TRICUSPID VALVE: TRACE TRICUSPID REGURGITATION MITRAL VALVE: SEVERE MITRAL ANNULAR CALCIFICATION PULMONIC VALVE: NORMAL AORTIC VALVE: MILD SCLEROSIS PERICARDIAL EFFUSION: NONE AORTIC ROOT: NORMAL LEFT VENTRICULAR WALL MOTION: NORMAL DOPPLER/COLOR FLOW: NORMAL COMMENTS: 1. NORMAL LEFT VENTRICULAR SYSTOLIC FUNCTION, EJECTION FRACTION 55-60%, NORMAL WALL MOTION 2. NORMAL DIASTOLIC FUNCTION 3. NORMAL FILLING PRESSURE (RIGHT ATRIAL PRESSURE 0-5 mmHg) TECHNOLOGIST: CASEY HERNANDEZ
--- NOTE | 2023-12-20 14:59 | PN ---
Diagnosis: Infected gangrene, right foot. Subjective: The patient is awake, alert. No distress. Objective: Abdomen: Soft and depressible. Extremities: Unchanged. Patient has gangrenous changes in the right lower extremity with maggots pr esent. Plan: We have been booked for today for a below-knee amputation. We have not obtained clearance yet . He needs an echocardiogram. He need a stress test as per a monitor worker. We discussed that with also hospital administration trying to expedite those process. We explained to him once again the be nefits, alternatives, and risks of below-knee amputation, which include, but not limited to, infectio n, bleeding, damage to adjacent structures, anesthesia complication, RI, and even . He also und erstands this may not relieve any symptoms. He might need more than one surgical intervention. If h e cannot be cleared at this institution, then we are going to have to evaluate if we have to go somew here else to take care of this event and need to be done with just amputation of the foot. ÓSCAR/BARRYL Voice ID: [id number] Report ID: [id number]
--- NOTE | 2023-12-20 16:17 | RAD REPORT ---
EXAM DESCRIPTION: NM - Rest Stress Cardiac Imaging - 12/20/2023 1:56 pm CLINICAL HISTORY: CP COMPARISON: Pelvis Angio dated 10/06/2023 TECHNIQUE: The patient was administered approximately 10.6 mCi of Tc 99m Sestamibi prior to resting SPECT imaging of the heart. The patient was then administered approximately 30.7 mCi of Tc 99m Sestam ibi following exercise or pharmacologic stress. Multiplanar SPECT images were reviewed. FINDINGS: No stress induced ischemic defect is seen to suggest stress induced ischemia. Moderate-siz ed fixed defects involving the apex, mid to apical anterior wall near the junction with the septum, a nd the lateral wall near the junction with the inferior wall. Defect involving the entire inferior wa ll, favored to be artifactual, related to splanchnic uptake. The end diastolic volume is 148 ml, the end systolic volume is 113 ml, and the ejection fraction is 2 4%. IMPRESSION: No evidence of stress induced ischemia. Fixed defects involving the apex, anterior wall, and lateral wall, suggesting sequelae of remote isch emia. Reduced left ventricular ejection fraction, 24%.
[2023-12-20 16:53] LABS: Sqamous Epithelial None Seen /HPF (None Seen); Urine Bacteria <20 /HPF (<20); Urine Bilirubin NEGATIVE (Negative); Urine Blood 1+ (Negative); Urine Clarity Extremely Turbid (Clear); Urine Color Light-Orange (Yellow); Urine Culture Reflex Order REFLEXED; Urine Glucose 3+ (Negative); Urine Ketones NEGATIVE (Negative); Urine Microscopic Reflex YN ORDER UMIC; Urine Mucus Slight /HPF (None Seen); Urine Nitrite NEGATIVE (Negative); Urine Protein 1+ (Negative); Urine Urobilinogen Normal (Normal); Urine WBC >50 /HPF (<5); Urine WBC Clump Many /HPF (None Seen); Urine pH 6.5 (5.0-7.0)
--- NOTE | 2023-12-20 17:06 | P.PN ---
Subjective Date of Service: 12/20/23 Chief Complaint: Gangrenous right foot Subjective: No new changes, No C/O voiced, Tolerating diet, Ambulating, Improving Review of Systems 10-point ROS is otherwise unremarkable Physical Examination - Vital Signs Temperature: 97.7 F Blood Pressure: 190/65 Pulse: 101 Respirations: 17 Pulse Ox (%): 88 - Physical Exam General: Alert, In no apparent distress HEENT: Atraumatic, PERRLA, EOMI Neck: Supple, JVD not distended Respiratory: Clear to auscultation bilaterally, Normal air movement Cardiovascular: Regular rate/rhythm, Normal S1 S2 Gastrointestinal: Normal bowel sounds, No tenderness Musculoskeletal: No tenderness Integumentary: No rashes Neurological: Normal speech, Normal tone, Normal affect Lymphatics: No axilla or inguinal lymphadenopathy - Studies Microbiology Data (last 24 hrs): 12/18/23 12:55 Wound - Right Foot Gram Stain - Final 12/18/23 14:10 Blood - Blood Blood Culture Gram Stain - Final 12/18/23 14:10 Blood - Blood Anaerobic Blood Culture - Final 12/18/23 13:39 Blood - Blood Blood Culture Gram Stain - Final 12/18/23 13:39 Blood - Blood Gram Stain - Final Medications List Reviewed: Yes Assessment And Plan - Current Problems (Diagnosis) (1) Encounter for pre-operative cardiovascular clearance Current Visit: Yes Status: Acute Plan: Patient with multiple risk factors for CAD but he had a nuclear stress that is negative for ischemia with possible old infarction, echo is done and shows normal EF, Patient is cleared for surgery as intermediate cardiac risk, that means 4-8% chance of having perioperative MT or fatal event, can proceed with surgery. (2) HTN (hypertension) Current Visit: Yes Status: Acute Plan: Patient BP is high start Norvasc 5 mg daily (first dose now) start Losartan 25 mg daily (first dose now) will consider starting BB after surgery.
[2023-12-20] MEDS: HYDRALAZINE HCL 20 MG/ML VIAL IV PRN (22:47)
[2023-12-21 05:13] LABS: Absolute Basophils 0.1 K/uL (0-0.5); Absolute Eosinophils 0.2 K/uL (0-0.5); Absolute Lymphocytes (CBC) 0.7 K/uL (0.7-4.9); Absolute Monocytes 0.9 K/uL (0.1-1.3); Absolute Neutrophil 11.4 K/uL (1.8-8.0); Basophils % 0.5 % (0-1.3); Eosinophils % 1.2 % (0-4.4); Hematocrit 23.8 % (39.6-49.0); Hemoglobin 7.4 g/dL (13.6-17.9); Lymphocytes % 5.6 % (15.3-44.8); MCHC 31.2 g/dL (32.0-36.0); MCV 83.2 fL (80-100); MPV 7.4 fL (7.6-11.3); Monocytes % 6.5 % (3.3-12.3); Platelets 370 thou/uL (152-406); RBC Red Blood Cell Count 2.86 M/uL (4.33-5.43); Red Cell Distribution Width 18.6 % (12.1-15.2)
[2023-12-21 05:15] LABS: Neutrophils % 86.2 % (41.7-73.7)
[2023-12-21 05:22] LABS: Anion Gap 7.5 mEq/L (5.0-15.0); Magnesium 1.7 mg/dL (1.6-2.4); Phosphorus 2.9 mg/dL (2.5-4.9); Potassium 3.5 mEq/L (3.5-5.1)
[2023-12-21] MEDS: NA CHLORIDE 0.9% 250 ML IV SCH (07:00)
--- NOTE | 2023-12-21 07:50 | TREADPHA ---
DX: CHEST PAIN Date of Study: 12/20/2023 Ht: 6' 0 " Wt: 230 lb 0 oz Consulting Physician: TERRENCE MEDICATIONS: TYLENOL, CEFEPIME, APRESOLINE, MORPHINE, POTASSIUM PHOSPHATE, VANCOMYCIN HISTORY: 63 YEAR OLD MALE WITH HISTORY OF CEREBRAL VASCULAR ACCIDENT, DIABETES MELLITUS TYPE TWO, FORTY YEAR SMOKER TWO PACKS PER DAY, FAMILY HISTORY OF HEART DISEASE, PAST HISTORY OF DRUG USE. DENIES ALCOHOL USE. PHYSICIAL EXAMINATION: RESTING B.P.: 160/75 RESTING H.R.: 103-105 RESTING EKG: SINUS TACHYCARDIA PROTOCOL: PHARMACOLOGIC EXERCISE TIME: 3:30 B.P. AT PEAK STRESS: 141/52 IMPRESSION: LEXISCAN INJECTED. CARDIOLITE GIVEN PER PROTOCOL. SEE NUCLEAR MEDICINE REPORT. OCCASIONAL PREMATURE VENTRICULAR COMPLEXES AND PREMATURE ATRIAL COMPLEXES THROUGHOUT PROCEDURE. DENIES CHEST PAIN OR SHORTNESS OF BREATH. NO SUPRAVENTRICULAR TACHYCARDIA, VENTRICULAR TACHYCARDIA NOTED.
[2023-12-21] MEDS: MAGNESIUM SULFATE 1 gm IVPB 1 GM/100 ML BAG IV ONE (09:05)
--- NOTE | 2023-12-21 11:12 | P.PN ---
Subjective Date of Service: 12/21/23 Chief Complaint: Gangrenous right foot Subjective: No new changes, No C/O voiced, Tolerating diet, Ambulating, Improving Review of Systems 10-point ROS is otherwise unremarkable Physical Examination - Vital Signs Temperature: 98.2 F Blood Pressure: 188/78 Pulse: 95 Respirations: 19 Pulse Ox (%): 93 - Physical Exam General: Alert, In no apparent distress HEENT: Atraumatic, PERRLA, EOMI Neck: Supple, JVD not distended Respiratory: Clear to auscultation bilaterally, Normal air movement Cardiovascular: Regular rate/rhythm, Normal S1 S2 Gastrointestinal: Normal bowel sounds, No tenderness Musculoskeletal: No tenderness Integumentary: No rashes Neurological: Normal speech, Normal tone, Normal affect Lymphatics: No axilla or inguinal lymphadenopathy - Studies Microbiology Data (last 24 hrs): 12/18/23 12:55 Wound - Right Foot Gram Stain - Final 12/18/23 12:55 Wound - Right Foot Culture & Sensitivity - Final Escherichia Coli Escherichia Coli Esbl Morganella Morganii Proteus Mirabilis Esbl 12/18/23 14:10 Blood - Blood Aerobic Blood Culture - Final Staph Epidermidis 12/18/23 14:10 Blood - Blood Blood Culture Gram Stain - Final 12/18/23 14:10 Blood - Blood Anaerobic Blood Culture - Final 12/18/23 13:39 Blood - Blood Aerobic Blood Culture - Final Staph Epidermidis 12/18/23 13:39 Blood - Blood Blood Culture Gram Stain - Final 12/18/23 13:39 Blood - Blood Anaerobic Blood Culture - Final Staph Epidermidis 12/18/23 13:39 Blood - Blood Gram Stain - Final Medications List Reviewed: Yes Assessment And Plan - Current Problems (Diagnosis) (1) Encounter for pre-operative cardiovascular clearance Current Visit: Yes Status: Acute Plan: Patient with multiple risk factors for CAD but he had a nuclear stress that is negative for ischemia with possible old infarction, echo is done and shows normal EF, Patient is cleared for surgery as intermediate cardiac risk, that means 4-8% chance of having perioperative [place] or fatal event, can proceed with surgery. (2) HTN (hypertension) Current Visit: Yes Status: Acute Plan: Patient BP is high start Norvasc 5 mg daily start Losartan 25 mg daily will consider starting BB after surgery.
--- NOTE | 2023-12-21 13:21 | P.PN ---
Date of Service: 12/21/23 Subjective: Going for BKA today No acute events overnight ROS: 10 point ROS as noted above, otherwise negative Physical exam General: Alert, In no apparent distress, Oriented x3 HEENT: Atraumatic, Normocephalic, PERRLA, Other (Ectropion to left lower eye lid) Neck: Supple, 2+ carotid pulse no bruit Respiratory: Clear to auscultation bilaterally, Normal air movement Cardiovascular: Normal pulses, Regular rate/rhythm, Normal S1 S2 Gastrointestinal: Normal bowel sounds, Soft and benign Musculoskeletal: Swelling (Right foot), Other (Open incision to right amputation area of first and second toe) Integumentary: Skin breakdown (Open incision to right amputation of first and second toe with necrotic tissue and maggots present) Neurological: Normal speech, Normal tone Vitals reviewed Assessment and plan Sepsis secondary to gangrenous right foot wound Gram + bacteremia S/P Amputation gangrenous right first toe and right second toe History of severe peripheral vascular disease with stent Leukocytosis 3/3 blood culture bottles from 12/17 positive for gram-positive cocci in clusters Repeat blood cultures obtained 12/20 pending Ultrasound right lower extremity with monophasic flow, no occlusive findings Ultrasound right lower extremity venous no DVT Right foot x-ray reports "FINDINGS: Prior first and second toe amputation noted. Demineralization is seen of the first and second metatarsal heads likely representing osteomyelitis. A small amount of soft tissue gas." Dr. Clifton is consulted-plan for BKA planned for 12/20 Cardiology consulted for pre operative optimization-stress and echo WNL, intermediate risk Continue Cefepime and vancomycin Pain control morphine, Tylenol Wound care TWYLA Received two unit PRBC thus far No active bleeding monitor CBC daily Add Iron when not dealing with acute infectious process Hypokalemia/mild hyponatremia Improving Replace and monitor in a.m. lab Diabetes mellitus Accu-Chek with sliding scale insulin History of COPD History of [place] History of CVA with left-sided paralysis History of hypertension Restart home medication Supportive care DVT ppx SCD to unaffected leg Full code LOS 3-4 days Time Spent Managing Pts Care (In Minutes): 35
[2023-12-21] MEDS: BUPIVACAINE 0.75% (PF) 2 ML SP ONE (13:52)
[2023-12-21] MEDS: MORPHINE SULFATE/PF 1 MG/ML (10 ML AMP) ONE (13:53)
[2023-12-21] MEDS ORDERED: propofoL 200 MG/20 ML VIAL IV ONE ×2 (13:55→15:38)
[2023-12-21] MEDS ORDERED: MIDAZOLAM HCL 2 MG/2 ML INJ ONE (13:55)
[2023-12-21] MEDS ORDERED: LIDOCAINE 1% MPF 5 ML VIAL ONE (13:55)
[2023-12-21] MEDS ORDERED: LIDOCAINE 1% MPF 2 ML AMPULE ONE (13:55)
[2023-12-21] MEDS: VANCOMYCIN 2.25 GM in NA CHLORIDE 0.9% 500 ML IVPB SCH (14:00)
[2023-12-21] MEDS ORDERED: Mastisol Adhesive Liq ONE (15:13)
[2023-12-21] MEDS ORDERED: Phenylephrine HCl 10 MG/ML 1 ML VIAL ONE (15:40)
--- NOTE | 2023-12-21 16:13 | P.BOP ---
Preoperative diagnosis: Right foot gangrene Postoperative diagnosis: same Primary procedure: R BKA Estimated blood loss: <100cc Specimen: foot Findings: as above Complications: None Drain(s): BENNIE drain Transferred to: Recovery Room Condition: Good
[2023-12-21] MEDS ORDERED: HYDROCODONE/APAP 5/325 MG TAB PO PRN (16:17)
[2023-12-21] MEDS: NA CHLORIDE 0.9% 1,000 ML ONE (17:40)
[2023-12-21] MEDS: MORPHINE 4 MG/ML SYR IV PRN (20:29)
[2023-12-21] MEDS: NICOTINE 21 MG/PAT TD SCH (20:31)
--- NOTE | 2023-12-22 02:47 | OP ---
Date of Procedure: 12/21/2023 Surgeon: Gonzalez Clifton MD Diagnosis: Right foot gangrene. Postop Diagnosis: Right foot gangrene. Procedure: Right below-knee amputation. Anesthesia: Spinal. Complications: None. Drains: BENNIE #10. Indication: This is the case of a 63-year-old patient with gangrene of the right foot. The benefits , alternatives, and risks of right below-knee amputation fully explained to the patient which include , but not limited to infection, bleeding, damage to adjacent structures, anesthesia complication, ME, and even . He also understands this may not relieve symptoms. He might need more than one corrina gical intervention. He understood, signed the consent. Description Of Procedure: The patient was brought to the operating room, placed in supine position, anesthesia was done without complication. Right leg was prepped and draped in sterile fashion. Ante rior and posterior skin incisions were outlined with the help of a marking pen. An incision was made about 4 fingerbreadths below the tibial tuberosity and extended medially and laterally to the edges of the gastrocnemius muscle. The skin incision was then extended distally along the tibial area abou t 12-15 cm creating a posterior flap. The skin and subcutaneous tissue were incised with the help of Bovie cauterizer. The veins were ligated. The fascia and muscles were then divided with Bovie caut erizer at the same level of the anterior skin. The muscle in the anterior and lateral compartments w as divided exposing the anterior tibial vessels, which was ligated and divided. The interosseous mem brane was then excised. The tibial periosteum was incised circumferentially and elevated with a neelima osteal elevator. The tibial periosteum was stripped about 2 cm proximal. The tibia was transected w ith the help of Gigli saw 2 cm above the skin with a bevel in the anterior area of the bone. The fib melissa was then exposed, dissected circumferentially, and transected a higher than the tibia with a bone cutter. The amputation was then completed with the Bovie cauterizer and knife transecting the soleu s muscle obliquely and the gastrocnemius muscle at the same level of the posterior flap. We made corrina e we had hemostasis, we closed the fascia after filing the bone. We left a BENNIE drain in that region e xiting through another site and then we approximated the fascia of the anterior and posterior muscle flaps with the help of #1 Vicryl and then we closed subcutaneous tissue with 3-0 chromic and then we closed the skin with jaguar. Sponge count and instrument counts correct. Patient tolerated the pro cedure well. The flap looks intact with good capillary refill. The patient was sent to Recovery in stable condition. ÓSCAR/KATERYNA Voice ID: [id number] Report ID: [id number]
[2023-12-22 07:18] LABS: Absolute Basophils 0.1 K/uL (0-0.5); Absolute Eosinophils 0.3 K/uL (0-0.5); Red Cell Distribution Width 18.1 % (12.1-15.2)
[2023-12-22 08:13] LABS: Anion Gap 7.1 mEq/L (5.0-15.0); Magnesium 1.8 mg/dL (1.6-2.4); Phosphorus 2.4 mg/dL (2.5-4.9); Potassium 4.1 mEq/L (3.5-5.1)
[2023-12-22 08:15] LABS: Absolute Lymphocytes (CBC) 0.8 K/uL (0.7-4.9); Absolute Monocytes 1.1 K/uL (0.1-1.3); Eosinophils % 2.4 % (0-4.4); Hematocrit 23.9 % (39.6-49.0); Hemoglobin 7.8 g/dL (13.6-17.9); Lymphocytes % 5.8 % (15.3-44.8); MCH 27.2 pg (27.0-35.0); MCHC 32.8 g/dL (32.0-36.0); MCV 82.9 fL (80-100); MPV 7.3 fL (7.6-11.3); Monocytes % 8.1 % (3.3-12.3); Neutrophils % 82.7 % (41.7-73.7); Nucleated Red Blood Cells % 0.1 % (0-0); Platelets 366 thou/uL (152-406); RBC Red Blood Cell Count 2.88 M/uL (4.33-5.43)
[2023-12-22] MEDS: AMLODIPINE 5 MG TAB PO SCH (08:17)
[2023-12-22] MEDS: LOSARTAN POTASSIUM 50 MG TABLET PO SCH (08:18)
[2023-12-22 08:35] LABS: Blood Morphology Comment NOTED (NOT SEEN); Hypochromasia 2+; Platelet Estimate ADEQ; White Blood Cell Scan OK (OK)
--- NOTE | 2023-12-22 10:03 | P.PN ---
Date of Service: 12/22/23 Subjective: Going for BKA today No acute events overnight ROS: 10 point ROS as noted above, otherwise negative Physical exam General: Alert, In no apparent distress, Oriented x3 HEENT: Atraumatic, Normocephalic, PERRLA, Other (Ectropion to left lower eye lid) Neck: Supple, 2+ carotid pulse no bruit Respiratory: Clear to auscultation bilaterally, Normal air movement Cardiovascular: Normal pulses, Regular rate/rhythm, Normal S1 S2 Gastrointestinal: Normal bowel sounds, Soft and benign Musculoskeletal: Right BKA, BENNIE drain in place, dressing in palce Integumentary: No significant lesions Neurological: Normal speech, Normal tone Vitals reviewed Assessment and plan Sepsis secondary to gangrenous right foot wound S/P Right BKA 12/20 Gram + bacteremia S/P Amputation gangrenous right first toe and right second toe History of severe peripheral vascular disease with stent Leukocytosis 3/3 blood culture bottles from 12/17 positive for Staph epidermidis Repeat blood cultures obtained 12/20 with no growth in 24 hours Ultrasound right lower extremity with monophasic flow, no occlusive findings Ultrasound right lower extremity venous no DVT Right foot x-ray reports "FINDINGS: Prior first and second toe amputation noted. Demineralization is seen of the first and second metatarsal heads likely representing osteomyelitis. A small amount of soft tissue gas." Dr. Clifton is consulted-BKA performed 12/20 Continue Cefepime and vancomycin Pain control morphine, Tylenol Wound care Infectious disease consulted given G+ bacteremia TWYLA Received two unit PRBC thus far No active bleeding monitor CBC daily Add Iron when not dealing with acute infectious process Hypokalemia/mild hyponatremia Improving Replace and monitor in a.m. lab Diabetes mellitus Accu-Chek with sliding scale insulin History of COPD History of [place] History of CVA with left-sided paralysis History of hypertension Restart home medication Supportive care DVT ppx SCD to unaffected leg, plan to resume lovenox after discussion with general surgery after BKA Full code LOS 3-4 days Time Spent Managing Pts Care (In Minutes): 35
--- NOTE | 2023-12-22 12:14 | CON ---
History Of Present Illness: This is a 63-year-old male coming in with the gangrenous foot wound, had a BKA done yesterday by the surgical team. The patient has significant past medical history of diab etes mellitus who developed bacteremia with gram-positive bacteria and went for BKA yesterday. Cabrera moody went well. Patient is now in his room. Denies any other problems except pain in his leg at the amputation site. Past Medical History: COPD, myocardial infarction, stroke with left-sided hemiparesis, hypertension, diabetes mellitus. Social History: Tobacco positive. Alcohol positive. Medications: Cefepime. Vancomycin. See MARs for other medications. Allergies: NO KNOWN DRUG ALLERGIES. Review of Systems: A 10-point review was performed. Physical Examination: General: This is a 63-year-old male, lying in bed, not in any acute cardiopulmonary distress. Vital Signs: Temperature 98, pulse 78, respirations 16. HEENT: Unremarkable. Neck: Supple. Lungs: Clear to auscultation. Heart: S1, S2. Regular. Abdomen: Soft, nontender. Bowel sounds present. Right BKA in surgical dressing with BENNIE drain in pl [place]. Laboratory Data: Shows WBC 13.3, hemoglobin 7.8, platelets 366. Chemistry shows BUN 14, creatinine 0.4. Albumin level is 2.1. Assessment And Plan: 63-year-old male with the right leg gangrenous changes and bacteremia. Culture s from the right foot grew multiple organisms including Escherichia coli extended-spectrum beta-lacta mases, Morganella morganii, Proteus mirabilis extended-spectrum beta-lactamases and blood grew Staph epidermidis in 2 sets. Cultures from 12/20 are negative to date. We will recommend to continue vanc omycin for 2 weeks from the time of negative cultures, can be switched to oral once patient is stabil ized. Wound care dressing as per surgical team. Diabetes mellitus, diabetic neuropathy, anemia of c hronic disease, leukocytosis, severe protein-calorie malnourishment. Recommend to get nutritional antonio pport and dietary consult. Thank you for consult. NF/MODL Voice ID: [id number] Report ID: [id number]
--- NOTE | 2023-12-22 16:05 | PN ---
Date of Progress Note: 12/22/2023 Subjective: Status post below-knee amputation. The patient is well. No complaint. No nausea, no v omiting. Objective: Chest: Clear. Abdomen: Soft and depressible. Extremities: Intact surgical site. BENNIE minimal serosanguineous. Laboratory Data: Blood work reviewed. Plan: Continue optimization. Our plan is, as soon as we can, move him to the rehab unit for a safer transfer. ÓSCAR/KATERYNA Voice ID: [id number] Report ID: [id number]
[2023-12-22] MEDS: PANTOPRAZOLE 40MG TABLET PO SCH (16:55)
[2023-12-22] MEDS: cilostazoL 100 MG TAB PO SCH (22:12)
[2023-12-22] MEDS: ATORVASTATIN 80 MG TAB PO SCH (22:12)
[2023-12-22] MEDS: CLOPIDOGREL 75 MG TABLET PO SCH (22:12)
[2023-12-22] MEDS: TRAZODONE 50 MG TABLET PO SCH (22:12)
[2023-12-22] MEDS: GABAPENTIN 300 MG CAP PO SCH (22:12)
[2023-12-23 06:37] LABS: Absolute Basophils 0.1 K/uL (0-0.5); Absolute Eosinophils 0.2 K/uL (0-0.5); Absolute Lymphocytes (CBC) 0.8 K/uL (0.7-4.9); Absolute Monocytes 0.8 K/uL (0.1-1.3); Absolute Neutrophil 6.5 K/uL (1.8-8.0); Basophils % 0.7 % (0-1.3); Eosinophils % 2.7 % (0-4.4); Hemoglobin 7.9 g/dL (13.6-17.9); Lymphocytes % 9.9 % (15.3-44.8); MCH 27.6 pg (27.0-35.0); MCHC 32.9 g/dL (32.0-36.0); MCV 83.7 fL (80-100); MPV 7.1 fL (7.6-11.3); Neutrophils % 77.7 % (41.7-73.7); Platelets 346 thou/uL (152-406); RBC Red Blood Cell Count 2.87 M/uL (4.33-5.43); Red Cell Distribution Width 18.2 % (12.1-15.2)
[2023-12-23 06:49] LABS: Anion Gap 6.5 mEq/L (5.0-15.0); Magnesium 1.7 mg/dL (1.6-2.4); Phosphorus 2.9 mg/dL (2.5-4.9); Potassium 3.5 mEq/L (3.5-5.1)
[2023-12-23] MEDS: MAGNESIUM SULFATE 1 gm IVPB 1 GM/100 ML BAG IV ONE (07:45)
[2023-12-23] MEDS: POTASSIUM CL SA 10 MEQ TAB PO ONE (08:48)
[2023-12-23] MEDS: ENOXAPARIN 40 MG/0.4 ML SQ SCH (08:50)
--- NOTE | 2023-12-23 10:53 | P.PN ---
Date of Service: 12/23/23 Subjective: Had BKA C/O pain to RLE no acute events overnight ROS: 10 point ROS as noted above, otherwise negative Physical exam General: Alert, In no apparent distress, Oriented x3 HEENT: Atraumatic, Normocephalic, PERRLA, Other (Ectropion to left lower eye lid) Neck: Supple, 2+ carotid pulse no bruit Respiratory: Clear to auscultation bilaterally, Normal air movement Cardiovascular: Normal pulses, Regular rate/rhythm, Normal S1 S2 Gastrointestinal: Normal bowel sounds, Soft and benign Musculoskeletal: Right BKA, BENNIE drain in place, dressing in palce Integumentary: No significant lesions Neurological: Normal speech, Normal tone Vitals reviewed Assessment and plan Sepsis secondary to gangrenous right foot wound S/P Right BKA 12/20 Gram + bacteremia S/P Amputation gangrenous right first toe and right second toe History of severe peripheral vascular disease with stent Leukocytosis 3/3 blood culture bottles from 12/17 positive for Staph epidermidis Repeat blood cultures obtained 12/20 with no growth in 24 hours Ultrasound right lower extremity with monophasic flow, no occlusive findings Ultrasound right lower extremity venous no DVT Right foot x-ray reports "FINDINGS: Prior first and second toe amputation noted. Demineralization is seen of the first and second metatarsal heads likely representing osteomyelitis. A small amount of soft tissue gas." Dr. Clifton is consulted-BKA performed 12/20 Infectious disease consulted given G+ bacteremia Will need 2 weeks Vanc from negative cultures ending 01/03 TWYLA Received two unit PRBC thus far No active bleeding monitor CBC daily Add Iron when not dealing with acute infectious process Hypokalemia/mild hyponatremia Improving Replace and monitor in a.m. lab Diabetes mellitus Accu-Chek with sliding scale insulin History of COPD History of [place] History of CVA with left-sided paralysis History of hypertension Restart home medication Supportive care DVT ppx lovenox Full code LOS 3-4 days, will try for acute inpatient rehab Time Spent Managing Pts Care (In Minutes): 35
[2023-12-23] MEDS: METOPROLOL TAR 50 MG TAB PO SCH (20:30)
[2023-12-23] MEDS: LOSARTAN POTASSIUM 50 MG TABLET PO SCH (20:30)
[2023-12-24 06:29] LABS: Absolute Basophils 0.1 K/uL (0-0.5); Absolute Eosinophils 0.3 K/uL (0-0.5); Absolute Lymphocytes (CBC) 0.9 K/uL (0.7-4.9); Absolute Monocytes 0.9 K/uL (0.1-1.3); Absolute Neutrophil 7.7 K/uL (1.8-8.0); Basophils % 0.7 % (0-1.3); Eosinophils % 2.8 % (0-4.4); Hematocrit 23.5 % (39.6-49.0); Hemoglobin 7.8 g/dL (13.6-17.9); Lymphocytes % 8.9 % (15.3-44.8); MCH 27.7 pg (27.0-35.0); MCHC 33.2 g/dL (32.0-36.0); MCV 83.6 fL (80-100); MPV 6.7 fL (7.6-11.3); Monocytes % 9.2 % (3.3-12.3); Neutrophils % 78.4 % (41.7-73.7); Platelets 395 thou/uL (152-406); RBC Red Blood Cell Count 2.81 M/uL (4.33-5.43); Red Cell Distribution Width 18.3 % (12.1-15.2)
[2023-12-24 06:45] LABS: Anion Gap 8.7 mEq/L (5.0-15.0); Phosphorus 2.5 mg/dL (2.5-4.9); Potassium 3.7 mEq/L (3.5-5.1)
[2023-12-24] MEDS: POTASSIUM CL SA 10 MEQ TAB PO ONE (10:15)
[2023-12-24] MEDS: HYDROCODONE/APAP 7.5/325 MG TAB PO PRN (10:43)
--- NOTE | 2023-12-24 15:37 | P.PN ---
Date of Service: 12/24/23 Subjective: No complaints of pain awake, eating breakfast ROS: 10 point ROS as noted above, otherwise negative Physical exam General: Alert and oriented x 3, NAD, comfortable HEENT: Atraumatic, Normocephalic, PERRLA, Other (Ectropion to left lower eye lid) Neck: Supple, 2+ carotid pulse no bruit Respiratory: Clear to auscultation bilaterally, Normal air movement Cardiovascular: Normal pulses, RRR, Normal S1 S2 Gastrointestinal: Normal bowel sounds, Soft and benign on palpation Musculoskeletal: Right BKA, BENNIE drain in place, dressing in palce C/D/I Integumentary: No significant lesions Neurological: Normal speech, Normal tone Vitals reviewed Assessment and plan Sepsis secondary to gangrenous right foot wound S/P Right BKA 12/20 Gram + bacteremia S/P Amputation gangrenous right first toe and right second toe History of severe peripheral vascular disease with stent Leukocytosis 3/ blood culture bottles from 12/17 positive for Staph epidermidis Repeat blood cultures obtained 12/20 with no growth in 24 hours Ultrasound right lower extremity with monophasic flow, no occlusive findings Ultrasound right lower extremity venous no DVT Right foot x-ray reports "FINDINGS: Prior first and second toe amputation noted. Demineralization is seen of the first and second metatarsal heads likely representing osteomyelitis. A small amount of soft tissue gas." Dr. Clifton is consulted-BKA performed 12/20 Infectious disease consulted given G+ bacteremia and ESBL in tissue Continue vanc (end date 01/03) and add merrem Will need 2 weeks Vanc from negative cultures ending 01/03 TWYLA Received two unit PRBC thus far No active bleeding monitor CBC daily- H/H stable Add Iron when not dealing with acute infectious process Hypokalemia/mild hyponatremia Improving Replace and monitor in a.m. lab Diabetes mellitus Accu-Chek with sliding scale insulin History of COPD History of [place] History of CVA with left-sided paralysis History of hypertension Restart home medication Supportive care DVT ppx lovenox Full code LOS 3-4 days, will try for acute inpatient rehab
--- NOTE | 2023-12-25 06:44 | P.PN ---
Date of Service: 12/25/23 Subjective: Sleeping but awakens easily no complaints of pain to his right lower extremity BENNIE drain with minimal drainage ROS: 10 point ROS as noted above, otherwise negative Physical exam General: Sleeping, oriented x 3, NAD, comfortable HEENT: Atraumatic, Normocephalic, PERRLA, Other (Ectropion to left lower eye lid) Neck: Supple, 2+ carotid pulse no bruit Respiratory: Clear to auscultation bilaterally, Normal air movement, on 2 LNC Cardiovascular: Normal pulses, NSR, Normal S1 S2 Gastrointestinal: Normal bowel sounds, Soft and benign on palpation Musculoskeletal: Right BKA, BENNIE drain in place, dressing in place C/D/I Integumentary: No significant lesions Neurological: Normal speech, Normal tone Vitals reviewed Problem list: Sepsis secondary to gangrenous right foot wound S/P Right BKA 12/20 Gram + bacteremia ESBL S/P Amputation gangrenous right first toe and right second toe History of severe peripheral vascular disease with stent Leukocytosis TWYLA Hypokalemia/mild hyponatremia Diabetes mellitus History of COPD History of [place] History of CVA with left-sided paralysis History of hypertension Assessment and plan Sepsis secondary to gangrenous right foot wound S/P Right BKA 12/20 Gram + bacteremia ESBL S/P Amputation gangrenous right first toe and right second toe History of severe peripheral vascular disease with stent Leukocytosis 3/3 blood culture bottles from 12/17 positive for Staph epidermidis Repeat blood cultures obtained 12/20 with no growth in 24 hours Ultrasound right lower extremity with monophasic flow, no occlusive findings Ultrasound right lower extremity venous no DVT Right foot x-ray reports "FINDINGS: Prior first and second toe amputation noted. Demineralization is seen of the first and second metatarsal heads likely representing osteomyelitis. A small amount of soft tissue gas." Dr. Clifton is consulted-BKA performed 12/20 Infectious disease consulted given G+ bacteremia and ESBL in tissue Continue vanc (end date 01/03) and added merrem Will need 2 weeks Vanc from negative cultures ending 01/03 TWYLA Received two unit PRBC thus far No active bleeding monitor CBC daily- H/H stable Add Iron when not dealing with acute infectious process Hypokalemia/mild hyponatremia Improving Replace and monitor in a.m. lab Diabetes mellitus Accu-Chek with sliding scale insulin History of COPD History of [place] History of CVA with left-sided paralysis History of hypertension Restart home medication Supportive care DVT ppx lovenox Full code LOS 3-4 days, will try for acute inpatient rehab/SNF
[2023-12-25 07:37] LABS: Absolute Eosinophils 0.2 K/uL (0-0.5); Absolute Monocytes 0.8 K/uL (0.1-1.3); Absolute Neutrophil 6.9 K/uL (1.8-8.0); Basophils % 0.5 % (0-1.3); Eosinophils % 1.9 % (0-4.4); Hematocrit 24.7 % (39.6-49.0); Hemoglobin 8.2 g/dL (13.6-17.9); Lymphocytes % 11.1 % (15.3-44.8); MCH 27.7 pg (27.0-35.0); MCV 83.8 fL (80-100); MPV 7.1 fL (7.6-11.3); Neutrophils % 77.5 % (41.7-73.7); Platelets 397 thou/uL (152-406); RBC Red Blood Cell Count 2.95 M/uL (4.33-5.43); Red Cell Distribution Width 18.3 % (12.1-15.2)
[2023-12-25 07:59] LABS: Anion Gap 7.8 mEq/L (5.0-15.0); Magnesium 1.7 mg/dL (1.6-2.4); Phosphorus 2.4 mg/dL (2.5-4.9); Potassium 3.8 mEq/L (3.5-5.1)
[2023-12-25] MEDS: SOD FERRIC GLUC COMPLX/SUCROSE 250 MG in NA CHLORIDE 0.9% 250 ML IV SCH (08:54)
[2023-12-25] MEDS: Meropenem 1,000 MG in NA CHLORIDE 0.9% 100 ML IV SCH (08:55)
[2023-12-25] MEDS: HYDROMORPHONE HCL 0.5 MG/0.5 ML INJ IV PRN (09:24)
[2023-12-25] MEDS: VANCOMYCIN 2 GM in NA CHLORIDE 0.9% 500 ML IVPB SCH (14:36)
[2023-12-25] MEDS: AMINO ACIDS/PROTEIN HYDROLYS 30 ML LIQUID.PKT PO SCH (21:00)
--- NOTE | 2023-12-26 15:49 | PN ---
Subjective: The patient is lying in bed. No new acute event. Chart reviewed. Objective: Vital signs: Reviewed. Lungs: Clear to auscultation. Heart: S1, S2. Regular. Abdomen: Soft, nontender. Bowel sounds present. Extremities: Right BKA wound noted. Todd are in place. Laboratory Data: Shows WBC 8.9, hemoglobin 8.2, platelets 397. Chemistry shows BUN of 13, creatinin e 0.8, blood sugar is 221. Blood cultures from 12/20 are negative to date. Assessment And Plan: Right below-knee amputation secondary to necrotic ulceration and osteomyelitis. The below-knee amputation wound is healing well. The patient is currently on meropenem and vancomy sveta. We will recommend to stop meropenem as patient's right foot wound has pain removed. Continue v ancomycin and can be switched to oral antibiotic before the patient is being discharged with Zyvox 60 0 mg p.o. q.12 hours. We will follow the patient as needed. No other recommendation at this time. JENNIFER/MODL Voice ID: [id number] Report ID: [id number]
--- NOTE | 2023-12-26 16:28 | P.PN ---
Date of Service: 12/26/23 Subjective: Awake, requesting repositioning in bed helped set up breakfast alert and oriented but uncomfortable ROS: 10 point ROS as noted above, otherwise negative Physical exam General: Alert and oriented x 3, NAD, uncomfortable HEENT: Atraumatic, Normocephalic, PERRLA, Other (Ectropion to left lower eye lid) Neck: Supple, 2+ carotid pulse no bruit Respiratory: Clear to auscultation bilaterally, symmetrical chest wall movement, on 2 LNC Cardiovascular: Normal pulses, regular rate and rhythm, Normal S1 S2, no edema Gastrointestinal: Normal bowel sounds, Soft and benign on palpation Musculoskeletal: Right BKA, BENNIE drain in place, dressing in place C/D/I Integumentary: No significant lesions Neurological: Normal speech, Normal tone Vitals reviewed Problem list: Sepsis secondary to gangrenous right foot wound S/P Right BKA 12/20 Gram + bacteremia ESBL S/P Amputation gangrenous right first toe and right second toe History of severe peripheral vascular disease with stent Leukocytosis TWYLA Hypokalemia/mild hyponatremia Diabetes mellitus History of COPD History of [place] History of CVA with left-sided paralysis History of hypertension Assessment and plan Sepsis secondary to gangrenous right foot wound S/P Right BKA 12/20 Gram + bacteremia ESBL S/P Amputation gangrenous right first toe and right second toe History of severe peripheral vascular disease with stent Leukocytosis 3/3 blood culture bottles from 12/17 positive for Staph epidermidis Repeat blood cultures obtained 12/20 with no growth in 24 hours Ultrasound right lower extremity with monophasic flow, no occlusive findings Ultrasound right lower extremity venous no DVT Right foot x-ray reports "FINDINGS: Prior first and second toe amputation noted. Demineralization is seen of the first and second metatarsal heads likely representing osteomyelitis. A small amount of soft tissue gas." Dr. Clifton is consulted-BKA performed 12/20 Infectious disease consulted given G+ bacteremia and ESBL in tissue Continue vanc (end date 01/03) and stopped merrem 12/25, zyvox 600 mg PO Q12h Will need 2 weeks Vanc from negative cultures ending 01/03 TWYLA Received two unit PRBC thus far No active bleeding monitor CBC daily- H/H 8.2/24.7 Add Iron when not dealing with acute infectious process Hypokalemia/mild hyponatremia Improving Replace and monitor in a.m. lab Diabetes mellitus Accu-Chek with sliding scale insulin History of COPD History of [place] History of CVA with left-sided paralysis History of hypertension Restart home medication Supportive care DVT ppx lovenox Full code LOS 3-4 days, will try for acute inpatient rehab/SNF
[2023-12-26] MEDS ORDERED: LINEZOLID 600 MG TAB PO SCH (21:00)
[2023-12-26] MEDS: TAMSULOSIN 0.4 MG SR CAP PO SCH (21:09)
--- NOTE | 2023-12-27 07:22 | P.PN ---
Date of Service: 12/27/23 Subjective: Sleeping on his left side Appears comfortable Repositioning to help with back pain ROS: 10 point ROS as noted above, otherwise negative Physical exam General: Sleeping, NAD, comfortable HEENT: Atraumatic, Normocephalic, PERRLA, Other (Ectropion to left lower eye li d) Neck: Supple, 2+ carotid pulse no bruit Respiratory: Clear to auscultation bilaterally, symmetrical chest wall movement Cardiovascular: Normal pulses, RRR, Normal S1 S2, no edema Gastrointestinal: Normal bowel sounds, Soft and benign on palpation Musculoskeletal: Right BKA, dressing in place C/D/I Integumentary: No significant lesions Neurological: Normal speech, Normal tone Vitals reviewed Problem list: Sepsis secondary to gangrenous right foot wound S/P Right BKA 12/20 Gram + bacteremia ESBL S/P Amputation gangrenous right first toe and right second toe History of severe peripheral vascular disease with stent Leukocytosis TWYLA Hypokalemia/mild hyponatremia Diabetes mellitus History of COPD History of [place] History of CVA with left-sided paralysis History of hypertension Assessment and plan Sepsis secondary to gangrenous right foot wound S/P Right BKA 12/20 Gram + bacteremia ESBL S/P Amputation gangrenous right first toe and right second toe History of severe peripheral vascular disease with stent Leukocytosis 3/3 blood culture bottles from 12/17 positive for Staph epidermidis Repeat blood cultures obtained 12/20 with no growth in 24 hours Ultrasound right lower extremity with monophasic flow, no occlusive findings Ultrasound right lower extremity venous no DVT Right foot x-ray reports "FINDINGS: Prior first and second toe amputation noted. Demineralization is seen of the first and second metatarsal heads likely representing osteomyelitis. A small amount of soft tissue gas." Dr. Clifton is consulted-BKA performed 12/20 Infectious disease consulted given G+ bacteremia and ESBL in tissue Continue vanc (end date 01/03) and stopped merrem 12/25, zyvox 600 mg PO Q12h at discharge Will need 2 weeks Vanc from negative cultures ending 01/03 TWYLA Received two unit PRBC thus far No active bleeding monitor CBC daily- H/H 8.07/26.5 Add Iron when not dealing with acute infectious process Hypokalemia/mild hyponatremia Improving Replace and monitor in a.m. lab Diabetes mellitus Accu-Chek with sliding scale insulin History of COPD History of [place] History of CVA with left-sided paralysis History of hypertension Restart home medication Supportive care DVT ppx lovenox Full code LOS 3-4 days, will try for acute inpatient rehab/SNF
[2023-12-27 08:36] LABS: Absolute Eosinophils 0.2 K/uL (0-0.5); Absolute Lymphocytes (CBC) 0.9 K/uL (0.7-4.9); Absolute Monocytes 0.6 K/uL (0.1-1.3); Absolute Neutrophil 4.1 K/uL (1.8-8.0); Basophils % 0.8 % (0-1.3); Eosinophils % 2.7 % (0-4.4); Hematocrit 24.5 % (39.6-49.0); Hemoglobin 8.1 g/dL (13.6-17.9); Lymphocytes % 15.9 % (15.3-44.8); MCH 27.4 pg (27.0-35.0); MCHC 33.1 g/dL (32.0-36.0); MCV 82.9 fL (80-100); MPV 6.7 fL (7.6-11.3); Monocytes % 10.4 % (3.3-12.3); Neutrophils % 70.2 % (41.7-73.7); Nucleated Red Blood Cells % 0.1 % (0-0); Platelets 401 thou/uL (152-406); RBC Red Blood Cell Count 2.95 M/uL (4.33-5.43); Red Cell Distribution Width 18.5 % (12.1-15.2)
[2023-12-27 08:49] LABS: Anion Gap 5.8 mEq/L (5.0-15.0); Magnesium 1.6 mg/dL (1.6-2.4); Phosphorus 2.6 mg/dL (2.5-4.9); Potassium 3.8 mEq/L (3.5-5.1)
[2023-12-27] MEDS: VANCOMYCIN 1.75 GM in NA CHLORIDE 0.9% 500 ML IVPB SCH (14:12)
[2023-12-28 04:05] LABS: Absolute Eosinophils 0.2 K/uL (0-0.5); Absolute Lymphocytes (CBC) 0.9 K/uL (0.7-4.9); Absolute Monocytes 0.7 K/uL (0.1-1.3); Absolute Neutrophil 4.6 K/uL (1.8-8.0); Basophils % 0.7 % (0-1.3); Eosinophils % 2.4 % (0-4.4); Hematocrit 22.8 % (39.6-49.0); Hemoglobin 7.5 g/dL (13.6-17.9); Lymphocytes % 14.4 % (15.3-44.8); MCH 27.7 pg (27.0-35.0); MPV 6.9 fL (7.6-11.3); Neutrophils % 71.5 % (41.7-73.7); Nucleated Red Blood Cells % 0.2 % (0-0); Platelets 401 thou/uL (152-406); RBC Red Blood Cell Count 2.72 M/uL (4.33-5.43); Red Cell Distribution Width 19.5 % (12.1-15.2)
[2023-12-28 04:17] LABS: Magnesium 1.6 mg/dL (1.6-2.4); Phosphorus 3.3 mg/dL (2.5-4.9)
[2023-12-28] MEDS: MAGNESIUM SULFATE 1 gm IVPB 1 GM/100 ML BAG IV ONE (06:58)
--- NOTE | 2023-12-28 10:48 | P.PN ---
Date of Service: 12/28/23 Subjective: Awake and van uncomfortable in the bed specifically his back Confused this morning of where he was and why he is in the hospital ROS: 10 point ROS as noted above, otherwise negative Physical exam General: Awake and oriented x1, NAD, comfortable HEENT: Atraumatic, Normocephalic, PERRLA, Other (Ectropion to left lower eye lid) Neck: Supple, 2+ carotid pulse no bruit Respiratory: Clear to auscultation bilaterally, nonlabored breathing, 2 LNC Cardiovascular: Normal pulses, RRR, Normal S1 S2, no edema Gastrointestinal: Normal bowel sounds, Soft and benign on palpation Musculoskeletal: Right BKA, dressing in place C/D/I Integumentary: No significant lesions Neurological: Normal speech, Normal tone Vitals reviewed Problem list: Sepsis secondary to gangrenous right foot wound S/P Right BKA 12/20 Gram + bacteremia ESBL S/P Amputation gangrenous right first toe and right second toe History of severe peripheral vascular disease with stent Leukocytosis TWYLA Hypokalemia/mild hyponatremia Diabetes mellitus History of COPD History of [place] History of CVA with left-sided paralysis History of hypertension Assessment and plan Sepsis secondary to gangrenous right foot wound S/P Right BKA 12/20 Gram + bacteremia ESBL S/P Amputation gangrenous right first toe and right second toe History of severe peripheral vascular disease with stent Leukocytosis- resolved 3/ blood culture bottles from 12/17 positive for Staph epidermidis Repeat blood cultures obtained 12/20 with no growth in 24 hours Ultrasound right lower extremity with monophasic flow, no occlusive findings Ultrasound right lower extremity venous no DVT Right foot x-ray reports "FINDINGS: Prior first and second toe amputation noted. Demineralization is seen of the first and second metatarsal heads likely representing osteomyelitis. A small amount of soft tissue gas." Dr. Clifton is consulted-BKA performed 12/20 Infectious disease consulted given G+ bacteremia and ESBL in tissue Continue vanc (end date 01/03) and stopped merrem 12/25, zyvox 600 mg PO Q12h at discharge Will need 2 weeks Vanc from negative cultures ending 01/03 TWYLA Received two unit PRBC thus far No active bleeding monitor CBC daily- H/H 7.5/22.8- recheck at 1500 Add Iron when not dealing with acute infectious process Hypokalemia/mild hyponatremia Improving Replace and monitor in a.m. lab Diabetes mellitus Accu-Chek with sliding scale insulin History of COPD History of [place] History of CVA with left-sided paralysis History of hypertension Restart home medication Supportive care DVT ppx lovenox Full code LOS 3-4 days, will try for acute inpatient rehab/HH
[2023-12-28 15:46] LABS: Hematocrit 25.4 % (39.6-49.0); Hemoglobin 8.1 g/dL (13.6-17.9)
[2023-12-28] MEDS ORDERED: HYDROCODONE/APAP 10/325 TAB PO PRN (19:47)
[2023-12-29 03:55] LABS: Anion Gap 7.7 mEq/L (5.0-15.0); Magnesium 1.7 mg/dL (1.6-2.4); Potassium 3.7 mEq/L (3.5-5.1)
--- NOTE | 2023-12-29 09:04 | P.PN ---
Date of Service: 12/29/23 Subjective: Awake, drowsy this morning No acute events overnight, no complaints ROS: 10 point ROS as noted above, otherwise negative Physical exam General: Awake and oriented x1, NAD, comfortable HEENT: Atraumatic, Normocephalic, PERRLA, Other (Ectropion to left lower eye lid) Neck: Supple, 2+ carotid pulse no bruit Respiratory: Clear to auscultation bilaterally, nonlabored breathing, 2 LNC Cardiovascular: Normal pulses, RRR, Normal S1 S2, no edema Gastrointestinal: Normal bowel sounds, Soft and benign on palpation Musculoskeletal: Right BKA, dressing in place C/D/I Integumentary: No significant lesions Neurological: Normal speech, Normal tone Vitals reviewed Problem list: Sepsis secondary to gangrenous right foot wound S/P Right BKA 12/20 Gram + bacteremia ESBL S/P Amputation gangrenous right first toe and right second toe History of severe peripheral vascular disease with stent Leukocytosis TWYLA Hypokalemia/mild hyponatremia Diabetes mellitus History of COPD History of [place] History of CVA with left-sided paralysis History of hypertension Plan Sepsis secondary to gangrenous right foot wound S/P Right BKA 12/20 Gram + bacteremia ESBL S/P Amputation gangrenous right first toe and right second toe History of severe peripheral vascular disease with stent Leukocytosis- resolved 09/02 blood culture bottles from 12/17 positive for Staph epidermidis Repeat blood cultures obtained 12/20 with no growth in [address] Clifton is consulted-BKA performed 12/20 Infectious disease consulted given G+ bacteremia and ESBL in tissue Continue vanc (end date 01/03) and stopped merrem 12/25, zyvox 600 mg PO Q12h at discharge Will need Vanc/Zyvox 600mg PO BID for additional 2 weeks from negative cultures ending 01/03 TWYLA Received two unit PRBC thus far No active bleeding Received IV iron x4 Monitor H/H daily Hypokalemia/mild hyponatremia Replace and monitor in a.m. lab Diabetes mellitus Accu-Chek with sliding scale insulin History of COPD History of [place] History of CVA with left-sided paralysis History of hypertension Home meds continued Supportive care DVT ppx lovenox Full code LOS 2-3 days, will try for acute inpatient rehab/
[2023-12-30] MEDS: VANCOMYCIN 2 GM in NA CHLORIDE 0.9% 500 ML IVPB SCH (02:15)
[2023-12-30 07:34] LABS: Hematocrit 25.6 % (39.6-49.0); Hemoglobin 8.4 g/dL (13.6-17.9); MCH 28.1 pg (27.0-35.0); MPV 7.2 fL (7.6-11.3); Platelets 377 thou/uL (152-406); RBC Red Blood Cell Count 3.01 M/uL (4.33-5.43); Red Cell Distribution Width 19.2 % (12.1-15.2)
--- NOTE | 2023-12-30 09:32 | P.PN ---
Date of Service: 12/30/23 Subjective: Awake, Anxious to get out of hospital No acute events overnight, no complaints ROS: 10 point ROS as noted above, otherwise negative Physical exam General: Awake and oriented x1, NAD, comfortable HEENT: Atraumatic, Normocephalic, PERRLA, Other (Ectropion to left lower eye lid) Neck: Supple, 2+ carotid pulse no bruit Respiratory: Clear to auscultation bilaterally, nonlabored breathing, 2 LNC Cardiovascular: Normal pulses, RRR, Normal S1 S2, no edema Gastrointestinal: Normal bowel sounds, Soft and benign on palpation Musculoskeletal: Right BKA, dressing in place C/D/I Integumentary: No significant lesions Neurological: Normal speech, Normal tone Vitals reviewed Problem list: Sepsis secondary to gangrenous right foot wound S/P Right BKA 12/20 Gram + bacteremia ESBL S/P Amputation gangrenous right first toe and right second toe History of severe peripheral vascular disease with stent Leukocytosis TWYLA Hypokalemia/mild hyponatremia Diabetes mellitus History of COPD History of [place] History of CVA with left-sided paralysis History of hypertension Plan Sepsis secondary to gangrenous right foot wound S/P Right BKA 12/20 Gram + bacteremia ESBL S/P Amputation gangrenous right first toe and right second toe History of severe peripheral vascular disease with stent Leukocytosis- resolved 09/02 blood culture bottles from 12/17 positive for Staph epidermidis Repeat blood cultures obtained 12/20 with no growth in [address] Clifton is consulted-BKA performed 12/20 Infectious disease consulted given G+ bacteremia and ESBL in tissue Continue vanc (end date 01/03) and stopped merrem 12/25, zyvox 600 mg PO Q12h at discharge Will need Vanc/Zyvox 600mg PO BID for additional 2 weeks from negative cultures ending 01/03 Awaiting appeal for inpatient rehab, possible DC home if denied TWYLA Received two unit PRBC thus far No active bleeding Received IV iron x4 Monitor H/H daily Hypokalemia/mild hyponatremia Replace and monitor in a.m. lab Diabetes mellitus Accu-Chek with sliding scale insulin History of COPD History of [place] History of CVA with left-sided paralysis History of hypertension Home meds continued Supportive care DVT ppx lovenox Full code LOS 2-3 days, will try for acute inpatient rehab/
[2023-12-31 06:46] LABS: Hemoglobin 9.2 g/dL (13.6-17.9); MCH 27.9 pg (27.0-35.0); MCHC 32.8 g/dL (32.0-36.0); MCV 85.1 fL (80-100); Platelets 349 thou/uL (152-406); RBC Red Blood Cell Count 3.29 M/uL (4.33-5.43); Red Cell Distribution Width 19.7 % (12.1-15.2)
--- NOTE | 2023-12-31 10:04 | P.PN ---
Date of Service: 12/31/23 Subjective: Awake, Anxious to get out of hospital No acute events overnight, no complaints ROS: 10 point ROS as noted above, otherwise negative Physical exam General: Awake and oriented x1, NAD, comfortable HEENT: Atraumatic, Normocephalic, PERRLA, Other (Ectropion to left lower eye lid) Neck: Supple, 2+ carotid pulse no bruit Respiratory: Clear to auscultation bilaterally, nonlabored breathing, 2 LNC Cardiovascular: Normal pulses, RRR, Normal S1 S2, no edema Gastrointestinal: Normal bowel sounds, Soft and benign on palpation Musculoskeletal: Right BKA, dressing in place C/D/I Integumentary: No significant lesions Neurological: Normal speech, Normal tone Vitals reviewed Problem list: Sepsis secondary to gangrenous right foot wound S/P Right BKA 12/20 Gram + bacteremia ESBL S/P Amputation gangrenous right first toe and right second toe History of severe peripheral vascular disease with stent Leukocytosis TWYLA Hypokalemia/mild hyponatremia Diabetes mellitus History of COPD History of [place] History of CVA with left-sided paralysis History of hypertension Plan Sepsis secondary to gangrenous right foot wound S/P Right BKA 12/20 Gram + bacteremia ESBL S/P Amputation gangrenous right first toe and right second toe History of severe peripheral vascular disease with stent Leukocytosis- resolved 09/02 blood culture bottles from 12/17 positive for Staph epidermidis Repeat blood cultures obtained 12/20 with no growth in [address] Clifton is consulted-BKA performed 12/20 Infectious disease consulted given G+ bacteremia and ESBL in tissue Continue vanc (end date 01/03) and stopped merrem 12/25, zyvox 600 mg PO Q12h at discharge Will need Vanc/Zyvox 600mg PO BID for additional 2 weeks from negative cultures ending 01/03 Awaiting appeal for inpatient rehab, possible DC home if denied [facility] DC'd 03/31 TWYLA Received two unit PRBC thus far No active bleeding Received IV iron x4 Monitor H/H daily Hypokalemia/mild hyponatremia Replace and monitor in a.m. lab Diabetes mellitus Accu-Chek with sliding scale insulin History of COPD History of [place] History of CVA with left-sided paralysis History of hypertension Home meds continued Supportive care DVT ppx lovenox Full code LOS 2-3 days, will try for acute inpatient rehab/HH <Attema,Matthew A Francesco - Last Filed: 12/31/23 10:04> Patient seen and examined. Plan of care discussed with Matthew Corona. Patient has no complain. He states his pain is well-controlled. Clinically stable for discharge. Patient was denied inpatient rehab. Awaiting arrangement for home health with physical therapy, [facility], wound care. <saul mcgee - Last Filed: 12/31/23 17:12>
--- NOTE | 2024-01-01 06:59 | PN ---
Subjective: The patient lying in bed, not in any acute cardiopulmonary distress. Denies any headach e, nausea, vomiting, chest pain, abdominal pain, constipation, or diarrhea. Objective: Vital Signs: Reviewed. Lungs: Basal crackles. Heart: S1, S2. Regular. Abdomen: Soft, nontender. Bowel sounds present. Extremities: Right leg gangrenous changes and bacteremia. Assessment And Plan: Right lower extremity gangrenous changes status post below-knee amputation, chauncey teremia, and extended-spectrum beta-lactamase infection. Diabetes mellitus. Continue antibiotic supp ortive care. We will follow the patient as needed. NF/MODL Voice ID: [id number] Report ID: [id number]
[2024-01-01 08:35] LABS: Hematocrit 27.2 % (39.6-49.0); MCH 28.4 pg (27.0-35.0); MCHC 33.2 g/dL (32.0-36.0); MCV 85.5 fL (80-100); MPV 7.3 fL (7.6-11.3); Platelets 335 thou/uL (152-406); RBC Red Blood Cell Count 3.18 M/uL (4.33-5.43); Red Cell Distribution Width 20.3 % (12.1-15.2)
[2024-01-01 09:35] VITALS: O2SAT 94
--- NOTE | 2024-01-01 10:11 | P.PN ---
Date of Service: 01/01/24 Subjective: Awake, Anxious to get out of hospital No acute events overnight, no complaints ROS: 10 point ROS as noted above, otherwise negative Physical exam General: Awake and oriented x1, NAD, comfortable HEENT: Atraumatic, Normocephalic, PERRLA, Other (Ectropion to left lower eye lid) Neck: Supple, 2+ carotid pulse no bruit Respiratory: Clear to auscultation bilaterally, nonlabored breathing, 2 LNC Cardiovascular: Normal pulses, RRR, Normal S1 S2, no edema Gastrointestinal: Normal bowel sounds, Soft and benign on palpation Musculoskeletal: Right BKA, dressing in place C/D/I Integumentary: No significant lesions Neurological: Normal speech, Normal tone Vitals reviewed Problem list: Sepsis secondary to gangrenous right foot wound S/P Right BKA 12/20 Gram + bacteremia ESBL S/P Amputation gangrenous right first toe and right second toe History of severe peripheral vascular disease with stent Leukocytosis TWYLA Hypokalemia/mild hyponatremia Diabetes mellitus History of COPD History of [place] History of CVA with left-sided paralysis History of hypertension Plan Sepsis secondary to gangrenous right foot wound S/P Right BKA 12/20 Gram + bacteremia ESBL S/P Amputation gangrenous right first toe and right second toe History of severe peripheral vascular disease with stent Leukocytosis- resolved 09/02 blood culture bottles from 12/17 positive for Staph epidermidis Repeat blood cultures obtained 12/20 with no growth in [address] Clifton is consulted-BKA performed 12/20 Infectious disease consulted given G+ bacteremia and ESBL in tissue Continue vanc (end date 01/03) and stopped merrem 12/25, zyvox 600 mg PO Q12h at discharge Will need Vanc/Zyvox 600mg PO BID for additional 2 weeks from negative cultures ending 01/03 Awaiting appeal for inpatient rehab, possible DC home if denied [facility] DC'd 12/29 TWYLA Received two unit PRBC thus far No active bleeding Received IV iron x4 Monitor H/H daily Hypokalemia/mild hyponatremia Replace and monitor in a.m. lab Diabetes mellitus Accu-Chek with sliding scale insulin History of COPD History of [place] History of CVA with left-sided paralysis History of hypertension Home meds continued Supportive care DVT ppx lovenox Full code LOS 1-2 days, will try for acute inpatient rehab/
[2024-01-01 12:31] VITALS: BP 136/68; TEMP 98.4
--- NOTE | 2024-01-01 12:51 | PN ---
Subjective: Patient lying in bed. No new acute event. Chart reviewed. Objective: Vital Signs: Reviewed. Lungs: Basal crackles. Heart: S1, S2. Regular. Abdomen: Soft, nontender. Bowel sounds present. Extremity: Right BKA wound noted. Laboratory Data: Reviewed. Assessment And Plan: Status post right below-knee amputation. Patient is doing well, currently on v ancomycin. Consider stopping antibiotic after 2 weeks of treatment from 12/21/2023. Continue suppor tive care. We will follow the patient as needed. NF/MODL Voice ID: [id number] Report ID: [id number]
== END 2024-01-01 14:26 | disposition home health service (06) | DRG 853 ==
LOC: ER 11:15 → ERHOLD 15:33 → 2ND 18:42
PROVIDERS: ADMIT Internal Medicine; ATTEND Internal Medicine
PROC: 30233N1 Transfusion of Nonautologous Red Blood Cells into Peripheral Vein, Percutaneous Approach (ICD-10-PCS; 2023-12-19)
PROC: 0Y6H0Z1 Detachment at Right Lower Leg, High, Open Approach (ICD-10-PCS; principal; 2023-12-21 14:30)
PROC: 0T9B70Z Drainage of Bladder with Drainage Device, Via Natural or Artificial Opening (ICD-10-PCS; 2023-12-30)
PROC: 02HV33Z Insertion of Infusion Device into Superior Vena Cava, Percutaneous Approach (ICD-10-PCS; 2023-12-30)
DX: A41.1 Sepsis due to other specified staphylococcus (principal); A48.0 Gas gangrene; E43 Unspecified severe protein-calorie malnutrition; M86.171 Other acute osteomyelitis, right ankle and foot; E11.52 Type 2 diabetes mellitus with diabetic peripheral angiopathy with gangrene; I69.354 Hemiplegia and hemiparesis following cerebral infarction affecting left non-dominant side; E87.1 Hypo-osmolality and hyponatremia; Z16.12 Extended spectrum beta lactamase (ESBL) resistance; A41.51 Sepsis due to Escherichia coli [E. coli]; E11.69 Type 2 diabetes mellitus with other specified complication; E11.40 Type 2 diabetes mellitus with diabetic neuropathy, unspecified; E11.621 Type 2 diabetes mellitus with foot ulcer; L97.519 Non-pressure chronic ulcer of other part of right foot with unspecified severity; E87.6 Hypokalemia; D50.9 Iron deficiency anemia, unspecified; I10 Essential (primary) hypertension; J44.9 Chronic obstructive pulmonary disease, unspecified; I25.2 Old myocardial infarction; Z79.4 Long term (current) use of insulin; Z68.31 Body mass index [BMI] 31.0-31.9, adult; Z79.52 Long term (current) use of systemic steroids; Z79.02 Long term (current) use of antithrombotics/antiplatelets; Z89.421 Acquired absence of other right toe(s); Z79.899 Other long term (current) drug therapy; Z87.891 Personal history of nicotine dependence
CPT/HCPCS: 36415; 36430; 71045; 78452; 80048; 80053; 80202; 81001; 82607; 82728; 82947; 83540; 83605; 83735; 84100; 84132; 84466; 85014; 85018; 85025; 85027; 85610; 85730; 86140; 86850; 86900; 86901; 86920; 87040; 87070; 87077; 87086; 87088; 87186; 87205; 88307; 88311; 92523; 93005; 93017; 93306; 93926; 93971; 94010; 94640; 96374; 96375; 97110; 97112; 97129; 97161; 97530; 99285; A9500; J0360; J0692; J1170; J1650; J2001; J2185; J2250; J2371; J2704; J2785; J2916; J3010; J3475; J3480; J7030; J7040; J7050; J7613; J7644; P9016